=== PATIENT | male | born 1950 | race Caucasian/White ===

== ENCOUNTER → 2017-11-29 10:15 | Outpatient (CLI) | payer SELFPAY ==
--- NOTE | 2017-11-29 10:25 | RAD_ITS ---
STUDY: X-RAY CHEST REASON FOR EXAM: Male, 66 years old. Chest pain and cough TECHNIQUE: PA and lateral views of the chest. COMPARISON: 10/19/2016 FINDINGS: There are interstitial fibrotic changes of the lungs. There is no demonstrated pleural abnormality. Normal size heart. There are calcified mediastinal lymph nodes. Normal visualized pulmonary arteries. Normal visualized aortic arch and descending thoracic aorta. There are diffuse degenerative changes of the visualized thoracic spine. Normal visualized ribs, clavicles, and shoulders. There is no demonstrated abnormality of the visualized soft tissue structures of the upper abdomen. RAD/Chest PA and Lateral IMPRESSION: Degenerative changes, as described above. No demonstrated acute cardiopulmonary process. Electronically Signed: Joshua Goodman MD at 10:29 EDT , Service support ,
== END ==
PROVIDERS: Family Provider Family Medicine; PCP Family Medicine; Visit Provider Internal Medicine Pulmonary Disease
DX: J45.909 Unspecified asthma, uncomplicated (principal); R07.9 Chest pain, unspecified; J44.9 Chronic obstructive pulmonary disease, unspecified
CPT/HCPCS: 71046

== ENCOUNTER → 2018-11-27 08:03 | Outpatient (CLI) | payer SELFPAY ==
--- NOTE | 2018-11-27 08:13 | CT_ITS ---
STUDY: LOW DOSE CT LUNG CANCER SCREENING REASON FOR EXAM: Male, 67 years old. 10 pack-year history of tobacco use. RADIATION DOSAGE (If Supplied By Facility): CTDIvol = ( 2.01 ) mGy, DLP = ( 68.21 ) mGycm TECHNIQUE: No contrast was administered. Low dose technique was utilized (average mAS-38 and kVp 120). 1.25 mm axial source images with a slice interval of 1.25-mm were reconstructed in lung windows. 2.5 mm axial source images with a slice interval of 2.5-mm were reconstructed in lung windows. 5.0 mm axial source images with a slice interval of 5.0-mm were reconstructed in soft tissue windows. Nodule measured using lung windows on PACS and/or independent workstation with automated measurement of minimum and maximum diameter. Nodule measurement reported as average diameter rounded to the nearest whole number. Growth is defined as an increase ins size of greater than 1.5 mm. COMPARISON: Chest, November 29, 2017. NODULES: Nodule #: 1 Density: Ground glass Lung location: Right upper lobe: 1.1 cm from pleura Location in series: Series Number: 2 Image: 52 Size - D1 x D2 mm: 6 x 5 mm: 6 mm average diameter Margin: Irregular Shape: Rounded Calcification: No Fat: No Temporal comparison: None Nodule #: 2 Density: Solid Lung location: Right upper lobe: 1.7 cm from pleura Location in series: Series Number: 2 Image: 55 Size - D1 x D2 mm: 5 x 4 mm: 5 mm average diameter Margin: Smooth Shape: Triangular Calcification: No Fat: No Temporal comparison: None Nodule #: 3 Density: Solid Lung location: Left upper lobe: 1.9 cm from pleura Location in series: Series Number: 2 Image: 65 Size - D1 x D2 mm: 20 x 11 x 8 mm: 1.5 cm average diameter Margin: Smooth Shape: Ovoid Calcification: No Fat: No Temporal comparison: None Nodule #: 4 Density: Solid Lung location: Left upper lobe: 1.9 cm from pleura Location in series: Series Number: 2 Image: 1:15 Size - D1 x D2 mm: 6 x 6 mm: 6 mm average diameter Margin: Smooth Shape: Round Calcification: Yes Fat: No Temporal comparison: None Nodule #: 5 Density: Solid Lung location: Right lower lobe: 1.6 cm from pleura Location in series: Series Number: 2 Image: 139 Size - D1 x D2 mm: 5 x 3 mm: 4 mm average diameter Margin: Smooth Shape: Curvilinear Calcification: Yes Fat: No Temporal comparison: None Nodule #: 6 Density: Solid Lung location: Left lower lobe: 6 cm from pleura Location in series: Series Number: 2 Image: 178 Size - D1 x D2 mm: 3 x 3 mm: 8 mm average diameter Margin: Smooth Shape: Rounded Calcification: Yes Fat: No Temporal comparison: None Total lung nodules (excluding granulomas): 3 Emphysema: Mild emphysematous changes in lungs with scarring in both upper lobes. Endobronchial lesion: None Aorta: Minimal atherosclerotic changes of the thoracic aorta without aneurysm. Coronary arteries: Mild coronary artery calcifications. Heart: Normal in size Pulmonary artery: Normal Mediastinal nodes: There are calcified and noncalcified mediastinal lymph nodes. Other chest and abdominal findings: There are degenerative changes of the thoracic spine. CT/Low Dose CT Lung Screening IMPRESSION: 1. Old granulomatous disease. 2. Large tubular mass in the medial left upper lobe. 3. Emphysematous changes lungs. Lung-RADS category 4B - Chest CT with or without contrast, PET/CT and/or tissue sampling can be obtained depending on the probability of malignancy and comorbidities. IMPORTANT NOTES FOR USE: ACR Lung-RADS Version 1.0 Assessment Categories Release Date: December 21, 2013 Category: Coded 0-4 bases on nodule(s) with highest degree of suspicion. Negative screen is defined as categories 1 and 2; a positive screen is defined as categories 3 and 4. Category 3 and 4A nodules that are unchanged on interval CT should be coded as category 2, and individuals returned to screening in 12 months. Category 4X: Category 3 or 4 nodules with additional imaging findings that increase the suspicion of lung cancer, such as spiculation, GGN that doubles in size in 1 year, enlarged lymph notes, etc. Category Modifiers: S (significant finding unrelated to lung cancer) and C (prior history of treated lung cancer) may be added to the 0-4 Lung-RADS Electronically Signed: Wilber Bull DO at 19:47 EDT Tel [phone], Service support ,
== END ==
PROVIDERS: Family Provider Family Medicine; PCP Family Medicine; Referring Provider Internal Medicine Pulmonary Disease; Visit Provider Internal Medicine Pulmonary Disease
DX: Z87.891 Personal history of nicotine dependence (principal)
CPT/HCPCS: G0297

== ENCOUNTER → 2019-08-28 13:44 | Outpatient (CLI) | payer SELFPAY ==
--- NOTE | 2019-08-28 13:49 | CT_ITS ---
STUDY: CT CHEST WITHOUT CONTRAST REASON FOR EXAM: Male, 68 years old. LUNG NODULE F/U FROM CT DONE 11/27/18, PREV SMOKER X 10 YRS RADIATION DOSAGE (If Supplied By Facility): CTDIvol = ( 9.26 ) mGy, DLP = ( 321.50 ) mGycm TECHNIQUE: Transaxial imaging was performed without the administration of intravenous contrast material. Multiplanar coronal and sagittal images were reformatted. Individualized dose optimization techniques were used for this CT. COMPARISON: 11/27/2017 FINDINGS: Granuloma in left upper lobe is stable. Noncalcified tubular opacity of the left upper lobe (coronal image 116) is stable since the prior study. The structure measures 2.3 cm in craniocaudal length, correlating to the 8 mm (axial) diameter nodule on the prior study. Faint 5-6 mm nodule in the right upper lobe on image 29 is stable. There are a few linear fibrotic changes in the bilateral lung bases. There is no demonstrated pleural abnormality. Normal heart and pericardium. There are calcifications of the coronary arteries. There are calcified mediastinal nodes. Normal hilar regions. Normal unenhanced pulmonary arteries. Normal aorta arch and descending thoracic aorta. There are multi-level degenerative changes of the thoracic spine. There are granulomatous calcifications of the spleen. CT/Chest without Contrast IMPRESSION: 1. Since 11/27/2018, stable exam. No new or enlarging pulmonary nodule. 2. Elongated/tubular nodule the left upper lobe measuring 8 mm in axial dimension and 2.3 cm in length likely benign such as silhouette, sequela of old infection/fibrosis or potentially mucous filled bronchus/bronchocele. Electronically Signed: Nito Mixon MD ([place]) at 16:29 EST , Service support ,
== END ==
PROVIDERS: Family Provider Family Medicine; PCP Family Medicine; Referring Provider Internal Medicine Pulmonary Disease; Visit Provider Internal Medicine Pulmonary Disease
DX: R91.1 Solitary pulmonary nodule (principal)
CPT/HCPCS: 71250

== ENCOUNTER → 2020-02-03 16:58 | Outpatient (CLI) | payer OTHER, SELFPAY | PROVIDERS: PCP Family Medicine; Visit Provider Family Medicine | DX: Z20.818 Contact with and (suspected) exposure to other bacterial communicable diseases (principal) | CPT/HCPCS: 87635; G2023; U0003 ==

== ENCOUNTER → 2020-08-29 12:17 | Outpatient (CLI) | payer SELFPAY, OTHER ==
--- NOTE | 2020-08-29 12:26 | CT_ITS ---
HISTORY: EX SMOKER X15 YEARS. SMOKED 1 PACK A DAY. HX OF COPD AND HTN TECHNIQUE: Helically acquired images of the chest were obtained without IV contrast. Number of images including paperwork: 833. A radiation dose optimization technique was used for this scan. COMPARISON: 08/28/2019, 11/27/2018 FINDINGS: VASCULATURE: Vascular tortuosity. HEART/PERICARDIUM: Normal heart size. Coronary calcification. MEDIASTINUM: Unremarkable. ADENOPATHY: No pathologic appearing adenopathy. THYROID: Unremarkable visualized portions. LUNG PARENCHYMA: Severe emphysema again seen. Tubular low density opacity in the left upper lobe appear similar, likely bronchial mucoid impaction. Faint densities in the right upper lobe and along the right major fissure (series 2 images 67 through 70 appear similar., As a small irregular opacity in the left upper lobe posterolaterally on series 2 image 69. Calcified granulomata, largest in the left upper lobe on series 2 image 132, unchanged. Left lower lobe nodule measuring 2.5 mm in average diameter (series 2 image 142 is new. Clustered small nodules in the anterior right lower lobe are more evident compared with 08/28/2019 (probably due to differences in slice thickness) and new compared to 11/27/2018, largest measuring 2.6 mm in average diameter, as seen on series 2 image 172. PLEURAL SPACES: Unremarkable. UPPER ABDOMEN: Unremarkable. OSSEOUS AND SOFT TISSUE STRUCTURES: No acute skeletal findings. DEVICES: None. CT/Low Dose CT Lung Screening IMPRESSION: Lower lobe nodules measuring less than 4 mm in size, 1 of which in the left lower lobe is definitely new compared to the most recent prior study. Lung-RADS 2. Continued annual screening recommended in 12 months. Additional findings above. Individualized dose optimization techniques were used for this CT. at 0431 Reported and signed by: Veronica Schuster MD Electronically Signed: Veronica Schuster MD at 4:31 EST Tel , Service support ,
== END ==
PROVIDERS: PCP Family Medicine; Referring Provider Internal Medicine Pulmonary Disease; Visit Provider Internal Medicine Pulmonary Disease
DX: Z87.891 Personal history of nicotine dependence (principal)
CPT/HCPCS: 71271

== ENCOUNTER 2021-03-06 15:44 | Emergency (ER) | payer OTHER, SELFPAY ==
[2021-03-06 15:46] VITALS: BP 161/88; PULSE 62; RESP 12; TEMP 36.3; O2SAT 97; BMI 23.8
--- NOTE | 2021-03-06 15:50 | EKG12_ITS ---
Test Reason : CHEST PAIN Blood Pressure : / mmHG Vent. Rate : 055 BPM Atrial Rate : 055 BPM P-R Int : 170 ms QRS Dur : 082 ms QT Int : 418 ms P-R-T Axes : 076 066 049 degrees QTc Int : 399 ms Sinus bradycardia Otherwise normal ECG Confirmed by FREDA JOHNS, KELLI ([id number]), news editor SEBASTIEN ROMERO ([id number]) on 03/08/2021 9:26:44 AM Referred By: FINN Confirmed By:KELLI BARBA MD
[2021-03-06 16:09] LABS: Absolute Lymphocyte Count 1.39 X10^3/uL (0.83-4.51); Absolute Neutrophil Count 3.8 X10^3/uL (2.0-7.7); Basophil# 0.05 X10^3/uL; Basophil% 0.8 % (0-1); Eosinophil# 0.37 X10^3/uL; Eosinophils% 5.9 % (0-5); Hemoglobin 13.9 g/dL (13.0-16.5); Lymphocyte # 1.39 X10^3/ul (0.83-4.51); Lymphocyte % 22.1 % (19-41); Mean Corp Hgb Conc 33.1 g/dL (32-36); Mean Corpuscular Hgb 28.4 pg (27.0-32.0); Mean Corpuscular Volume 85.9 fL (80-94); Mean Platelet Vol. 9.5 fl (6.2-12.0); Monocyte# 0.62 X10^3/uL; Monocyte% 9.9 % (0-10); NRBC Flagged by Analyzer 0 % (0-5); Neutrophil # 3.84 X10^3/uL (2.7-7.7); Neutrophil % 61.1 % (47-70); Platelet Count 277 K/mm3 (150-450); RBC Distribution Width SD 44.1 fl (35.1-43.9); Red Blood Count 4.89 M/mm3 (4.6-6.2); White Blood Count 6.3 K/mm3 (4.4-11.0)
[2021-03-06 16:27] VITALS: O2SAT 96
[2021-03-06 16:30] LABS: Anion Gap 5 (5-15); BUN 33 mg/dL (7-18); BUN/Creat Ratio 33.4 RATIO (10-20); Chloride 105 mmol/L (98-107); Creatinine, Serum 0.99 mg/dL (0.70-1.30); EST Glomerular Filtration Rate 80 mL/min (>60); Est Glom Filt Rate - Afr Amer 96 mL/min (>60); Estimated Creatinine Clearance 62.65 ml/min; Glucose 102 mg/dL (74-106); Potassium 4.1 mmol/L (3.5-5.1); Sodium Level 139 mmol/L (136-145); Troponin-I HS 7.3 pg/mL (3.0-78.5)
--- NOTE | 2021-03-06 16:36 | RAD_ITS ---
[employer]Scriptor Unformatted Report Format: Options: n 2f 2i act cap dr saleh wm wcta sl lj Gender: Male : 1950 Exam: XR Chest 1 View Comparison: History: chest pain Contrast: at 1653 Reported and signed by: Calin Hook MD Electronically Signed: Calin Hook MD at 16:52 EDT Tel , Service support , RAD/Chest 1 View (Portable)
--- NOTE | 2021-03-06 17:17 | ED.VIS.CHEST ---
HPI History of Present Illness Chief Complaint: Chest Pain Informant: patient Narrative Narrative: Patient is a 70-year-old male with a past medical history of hypertension who presents to the emergency department for intermittent chest pain. He states that he gets left upper chest pain that radiates into his left arm. This does come and go. Whenever he exerts himself or is active with the left shoulder seems to make it worse. It is not every time he exerts himself or move the arm. Sometimes this wakes him up randomly out of his sleep. He denies any history of CAD, thromboembolism or stroke. He denies shortness of breath. He felt like his legs have been mildly swollen since this started. He initially thought this was related to his left shoulder previous surgeries. He denies any recent illness including any cough, cold, congestion. No fevers or chills. No back pain or abdominal pain. He is a former smoking history and COPD diagnosis. [facility] Medical History (Updated 03/06/21 @ 19:[address] Jhony Nixon DO) [place] (hard of hearing) Hypertension Home Medications albuterol sulfate 2.5 mg INHALATION Q4H PRN #25 vial 10/19/16 [Rx Last Taken Unknown] prednisone 40 mg PO DAILY@0800 #8 tablet 10/19/16 [Rx Last Taken Unknown] amlodipine 5 mg PO DAILY 03/06/21 [History Last Taken Unknown] fluticasone furoate-vilanterol [Breo Ellipta] 1 inh INHALATION DAILY 03/06/21 [History Last Taken Unknown] Allergy/AdvReac Type Severity Reaction Status Date / Time No Known Allergies Allergy Verified 03/06/21 15:45 Surgical History (Updated 03/06/21 @ 16:28 by Marilee Evans) History of replacement of both shoulder joints Social History Smoking Status: Never smoker ROS ROS ED Constitutional Constitutional ED: Denies chills or fever(s) Eyes Eyes: Denies change in vision ENT ENT ED: Denies epistaxis or rhinorrhea Cardiovascular Cardiovascular: Reports chest pain; Denies palpitations Respiratory/Chest Respiratory/Chest: Denies cough, dyspnea or dyspnea on exertion Gastrointestinal Gastrointestinal: Denies abdominal pain, diarrhea, nausea or vomiting Genitourinary Genitourinary ED: Denies dysuria, hematuria or urinary frequency Musculoskeletal Musculoskeletal: Denies back pain or neck pain Integumentary Denies rash Neurologic Neurologic: Denies dizziness, headache(s) or weakness EXAM Physical Exam Const Vital Signs: 03/06/21 15:46 03/06/21 16:27 03/06/21 19:13 Temperature 97.4 F L Temperature Source Temporal Pulse Rate 62 52 L Respiratory Rate 12 12 Respiratory Effort Normal Non-Labored Respiratory Pattern Normal Blood Pressure 161/88 H 163/92 H Blood Pressure Mean 112 Pulse Ox 97 96 97 Oxygen Delivery Method Room Air Room Air Positive well nourished and well developed General Appearance ED: well developed and NAD HEENT Reports normocephalic, head/scalp atraumatic and moist mucous membranes Eyes PERRL and EOMs intact bilaterally Neck supple Chest Wall inspection of chest normal Resp normal respiratory effort and clear to auscultation bilaterally Auscultation: Negative for rales, rhonchi or wheezes Cardio regular rate, regular rhythm and no murmurs GI normal to inspection, nondistended, normoactive bowel sounds and non-tender Palpation: soft; Negative for guarding or rebound tenderness present Back/Spine no CVA tenderness Extremity normal to inspection General Extremety ED: Negative for edema or tenderness General Extremity: Negative for edema Neuro CN's II-XII intact bilaterally and no sensory deficits noted Sensorium / Orientation: alert Motor Exam: strength 5/5 throughout Psych mental status grossly normal Skin no rashes or lesions noted Heart Score History: Moderately Suspicious ECG: Normal Age: >/= 65 years Risk Factors: 1 or 2 Risk Factors Troponin: </= Normal Limit Score: 4 MDM MDM MDM Narrative Medical decision making narrative: Patient presents to the ED for intermittent chest pain over the past 2 weeks. On arrival to the ED he states the symptoms are very mild. He is hypertensive but otherwise normal vital signs. He is in no acute distress. He is a benign physical exam. EKG, basic lab work and chest x-ray obtained. Patient's lab work-up did not reveal him to be anemic. His troponin is well within normal limits. No significant electrolyte disturbance. Chest x-ray did not reveal acute cardiopulmonary abnormality. I discussed hospitalization for stress test for full cardiac evaluation but patient has been completely asymptomatic throughout ED stay. At the very least I did recommend that he stay for a repeat troponin test although symptoms have been going on for 2 weeks and I would expect an elevation in his troponin at this point. Patient did not want to stay and is going to follow-up with his PCP. I did give him a cardiology referral as his PCP did recently retire. He is to call in the morning to schedule appointment. If he develops any repeat symptoms or persistent symptoms he needs to come back to the emergency department. This time it does not appear to be ACS causing his symptoms. I have very low concern for thromboembolism or aortic catastrophe causing his symptoms. This could be related to his shoulder but I could not completely rule out cardiac etiology at this time. Patient understands this. He is discharged home in stable condition. All questions were answered. Lab Data Labs: Laboratory Results - last 24 hr 03/06/21 03/06/21 15:55 15:55 WBC 6.3 RBC 4.89 Hgb 13.9 Hct 42.0 MCV 85.9 MCH 28.4 MCHC 33.1 RDW Std Deviation 44.1 H RDW Coeff of Sherri 14.0 Plt Count 277 MPV 9.5 Immature Gran % (Auto) 0.200 Neut % (Auto) 61.1 Lymph % (Auto) 22.1 Harrison % (Auto) 9.9 Eos % (Auto) 5.9 H Baso % (Auto) 0.8 Absolute Neuts (auto) 3.8 Absolute Lymphs (auto) 1.39 Nucleated RBC % 0 Sodium 139 Potassium 4.1 Chloride 105 Carbon Dioxide 29.0 Anion Gap 5 BUN 33 H Creatinine 0.99 Estim Creat Clear Calc 62.65 Est GFR (MDRD) Af Amer 96 Est GFR (MDRD) Non-Af 80 BUN/Creatinine Ratio 33.4 H Glucose 102 Calcium 9.0 Troponin I High Sens 7.3 Radiography Chest X-Ray - ED: 1 View (Single view portable x-ray interpreted by myself. Clear lung martinez bilaterally. No effusions. Normal cardiac silhouette. Normal mediastinum. Agree with radiologist interpretation.) Diagnostic Testing: Radiology Impression Chest X-Ray 03/06/21 16:36 ADDENDUM: 03/06/212040 IMPRESSION: No acute process Electronically Signed: Ruddy Kiser MD at 20:34 EDT , Service support , ADDENDUM: 03/06/212053 ADDENDUM: 03/06/212053 IMPRESSION: No acute process Electronically Signed: Ruddy Kiser MD at 20:34 EDT , Service support , EKG Initial EKG: Attestation: I personally reviewed and interpreted this EKG as follows: (Rate of 55 bpm in sinus bradycardia. Normal intervals. Normal axis. No significant ST elevations or depressions. No T wave abnormalities.) Discharge Plan Triage Chief Complaint: Chest Pain ED Provider: Jhony Nixon Dx/Rx/DC Orders Clinical Impression: Chest pain Instructions: ED Chest Pain, Noncardiac Prescriptions: No Action prednisone 20 MG tablet 40 mg PO DAILY@0800 Qty: 8 RF: 0 albuterol sulfate 2.5 MG/3 ML solution for nebulization 2.5 mg inhalation Q4H PRN Qty: 25 RF: 0 amlodipine 5 mg tablet 5 mg PO DAILY RF: 0 Breo Ellipta 200-25 mcg/dose blister with device 1 inh INHALATION DAILY RF: 0 Primary Care Provider: Sam Sumner III Referrals: Eh Castellon MD [STAFF PHYSICIAN] - As soon as possible Sam Sumner III, MD [Primary Care Provider] - As soon as possible Activity Restrictions/Additional Instructions: Please contact the [employer] as it is possible to schedule outpatient stress test. If you develop any repeat symptoms please return to the emergency department for reevaluation. Disposition Disposition: Home, Self Care Discharge Date/Time: 03/06/21 19:14
[2021-03-06 19:13] VITALS: BP 163/92; PULSE 52; RESP 12; O2SAT 97
== END 2021-03-06 19:14 | disposition home or self-care (01) ==
PROVIDERS: Emergency Provider Emergency Medicine; PCP Family Medicine
DX: R07.89 Other chest pain (principal); I10 Essential (primary) hypertension; J44.9 Chronic obstructive pulmonary disease, unspecified; Z79.899 Other long term (current) drug therapy; Z87.891 Personal history of nicotine dependence
CPT/HCPCS: 71045; 80048; 84484; 85025; 93005; 99283

== ENCOUNTER 2021-05-01 06:09 | Emergency (ER) | payer OTHER, SELFPAY ==
[2021-05-01 06:10] VITALS: BP 163/90; PULSE 107; RESP 20; TEMP 36.4; O2SAT 97; BMI 22.5
[2021-05-01 06:18] VITALS: BP 163/90; PULSE 107; RESP 20; TEMP 36.4; O2SAT 97
[2021-05-01] MEDS: Ondansetron 4 MG/2 ML Vial IV (06:48)
[2021-05-01] MEDS: Morphine 4 MG/ML Syringe IV (06:48)
[2021-05-01 06:57] LABS: Absolute Lymphocyte Count 0.53 X10^3/uL (0.83-4.51); Absolute Neutrophil Count 13.6 X10^3/uL (2.0-7.7); Basophil# 0.05 X10^3/uL; Basophil% 0.3 % (0-1); Eosinophil# 0.03 X10^3/uL; Eosinophils% 0.2 % (0-5); Hematocrit 44.2 % (40-54); Hemoglobin 14.5 g/dL (13.0-16.5); Lymphocyte # 0.53 X10^3/ul (0.83-4.51); Lymphocyte % 3.5 % (19-41); Mean Corp Hgb Conc 32.8 g/dL (32-36); Mean Corpuscular Hgb 28.5 pg (27.0-32.0); Mean Platelet Vol. 9.9 fl (6.2-12.0); Monocyte# 1.08 X10^3/uL; NRBC Flagged by Analyzer 0 % (0-5); Neutrophil # 13.56 X10^3/uL (2.7-7.7); Neutrophil % 88.5 % (47-70); POSITIVE DIFFERENTIAL YES; Platelet Count 238 K/mm3 (150-450); RBC Distribution Width CV 13.5 % (11.6-14.6); RBC Distribution Width SD 43.2 fl (35.1-43.9); Red Blood Count 5.08 M/mm3 (4.6-6.2); White Blood Count 15.3 K/mm3 (4.4-11.0)
[2021-05-01 06:58] LABS: Differential Indicated SCAN CRITERIA MET
--- NOTE | 2021-05-01 07:00 | RAD_ITS ---
EXAM: XR RIGHT ELBOW COMPLETE, 3 OR MORE VIEWS : 1950 CLINICAL INDICATION: pain TECHNIQUE: Frontal, lateral and oblique views of the right elbow. This report was created using [employer] report generation technology. COMPARISON: None. FINDINGS: BONES/JOINTS: Unremarkable. There is no displacement of the anterior or posterior fat pads. No acute fracture. No subluxation. Normal alignment. Preservation of the joint space. No destructive or sclerotic lesions. SOFT TISSUES: Soft tissue swelling dorsal to the distal humerus, olecranon and proximal ulna. No radiopaque foreign body. RAD/Elbow min 3 Views IMPRESSION: Soft tissue swelling dorsal to the distal humerus, olecranon and proximal ulna. Findings may indicate cellulitis/bursitis. at 0734 Reported and signed by: Calvin Deal MD Electronically Signed: Calvin Deal MD at 7:34 EDT Tel , Service support ,
[2021-05-01 07:10] LABS: Anion Gap 5 (5-15); BUN 27 mg/dL (7-18); BUN/Creat Ratio 29.2 RATIO (10-20); Calcium,Total 9.1 mg/dL (8.5-10.1); Chloride 104 mmol/L (98-107); Creatinine, Serum 0.92 mg/dL (0.70-1.30); EST Glomerular Filtration Rate 86 mL/min (>60); Est Glom Filt Rate - Afr Amer 104 mL/min (>60); Estimated Creatinine Clearance 69.02 ml/min; Glucose 176 mg/dL (74-106); Potassium 4.1 mmol/L (3.5-5.1); Sodium Level 136 mmol/L (136-145)
[2021-05-01 07:19] LABS: Differential Comment SCANNED
[2021-05-01 07:20] LABS: Erythrocyte Sedimentation Rate 2 mm/hr (0-20)
[2021-05-01] MEDS: Doxycycline 100 MG CAPSULE PO (07:56)
[2021-05-01] MEDS: HYDROcodone Bitartrate/Apap 5/325 Tablet PO (07:56)
--- NOTE | 2021-05-01 08:31 | EX.ED.UPPERE ---
HPI History of Present Illness Chief Complaint: Upper Extremity Injury Informant: patient Onset/Context/Timing Onset: Yesterday Context: Gradual Onset Current Severity: Moderate Maximum Severity: Severe Narrative Narrative: Patient presents secondary to right elbow pain, redness, and swelling. Patient states he noted symptoms last evening and it progressed throughout the night. He had difficulty sleeping secondary to pain. He denies any known injury. He is right-hand dominant. He denies fever, chills, or other constitutional symptoms. PFS PFS Medical History [place] (hard of hearing) Hypertension Home Medications albuterol sulfate 2.5 mg INHALATION Q4H PRN #25 vial 10/19/16 [Rx Last Taken Unknown] prednisone 40 mg PO DAILY@0800 #8 tablet 10/19/16 [Rx Last Taken Unknown] amlodipine 5 mg PO DAILY 03/06/21 [History Last Taken Unknown] fluticasone furoate-vilanterol [Breo Ellipta] 1 inh INHALATION DAILY 03/06/21 [History Last Taken Unknown] cephalexin 500 mg PO Q6 #40 cap 05/01/21 [Rx Last Taken Unknown] hydrocodone-acetaminophen 1 tab PO Q6H PRN 3 Days #10 tab 05/01/21 [Rx Last Taken Unknown] sulfamethoxazole-trimethoprim [Bactrim DS] 1 tab PO BID #20 tab 05/01/21 [Rx Last Taken Unknown] Allergy/AdvReac Type Severity Reaction Status Date / Time No Known Allergies Allergy Verified 03/06/21 15:45 Surgical History History of replacement of both shoulder joints Social History Smoking Status: Never smoker ROS ROS ED Constitutional Constitutional ED: Denies chills or fever(s) Eyes Eyes: Denies change in vision ENT ENT ED: Denies sore throat Cardiovascular Cardiovascular: Denies chest pain Respiratory/Chest Respiratory/Chest: Denies cough or dyspnea Gastrointestinal Gastrointestinal: Denies abdominal pain, diarrhea, nausea or vomiting Genitourinary Genitourinary ED: Denies dysuria Musculoskeletal Musculoskeletal: Reports other Details: Right elbow pain ; Denies back pain Integumentary Denies rash Neurologic Neurologic: Denies headache(s), paresthesias or weakness Allergic/Immunologic Allergic/Immunologic ED: Denies urticaria EXAM Physical Exam Const Vital Signs: 05/01/21 06:10 05/01/21 06:18 Temperature 97.6 F L 97.6 F L Temperature Source Temporal Temporal Pulse Rate 107 H 107 H Respiratory Rate 20 H 20 H Blood Pressure 163/90 H 163/90 H Blood Pressure Mean 114 114 Pulse Ox 97 97 Oxygen Delivery Method Room Air Room Air Positive well nourished and well developed General Appearance ED: well developed HEENT Reports normocephalic and head/scalp atraumatic Eyes PERRL and EOMs intact bilaterally Neck supple Chest Wall inspection of chest normal and palpation of chest normal Resp normal respiratory effort and clear to auscultation bilaterally Cardio regular rate and regular rhythm GI normal to inspection, nondistended, normoactive bowel sounds Palpation: soft Extremity Extremity Narrative: Mild erythema, warmth, edema to the extensor surface of the right elbow. He does allow flexion extension as well as pronation supination of the elbow with mild pain. Findings are consistent with olecranon bursitis. Neuro oriented x3 and no sensory deficits noted Sensorium / Orientation: alert Motor Exam: strength 5/5 throughout Psych mental status grossly normal MDM MDM MDM Narrative Medical decision making narrative: Patient was given morphine and Zofran for pain. Labs and right elbow x-ray are obtained. Lab Data Attestation: I reviewed the patient's lab results. Labs: Laboratory Results - last 24 hr 05/01/21 05/01/21 06:50 06:50 WBC 15.3 H RBC 5.08 Hgb 14.5 Hct 44.2 MCV 87.0 MCH 28.5 MCHC 32.8 RDW Std Deviation 43.2 RDW Coeff of Sherri 13.5 Plt Count 238 MPV 9.9 Immature Gran % (Auto) 0.500 Neut % (Auto) 88.5 H Lymph % (Auto) 3.5 L [place] % (Auto) 7.0 Eos % (Auto) 0.2 Baso % (Auto) 0.3 Absolute Neuts (auto) 13.6 H Absolute Lymphs (auto) 0.53 L Nucleated RBC % 0 Differential Comment SCANNED ESR 2 Sodium 136 Potassium 4.1 Chloride 104 Carbon Dioxide 27.0 Anion Gap 5 BUN 27 H Creatinine 0.92 Estim Creat Clear Calc 69.02 Est GFR (MDRD) Af Amer 104 Est GFR (MDRD) Non-Af 86 BUN/Creatinine Ratio 29.2 H Glucose 176 H Calcium 9.1 C-React Prot Ext Range 17.60 H Radiography Diagnostic Testing: Radiology Impression Elbow X-Ray 05/01/21 07:00 IMPRESSION: Soft tissue swelling dorsal to the distal humerus, olecranon and proximal ulna. Findings may indicate cellulitis/bursitis. at 0734 Reported and signed by: Calvin Deal MD Electronically Signed: Calvin Deal MD at 7:34 EDT Tel , Service support , Treatment and Re-Evaluation Comments:: Lab work is reviewed. Patient's right elbow was prepped. 4 cc of hazy yellow fluid are withdrawn through a 21-gauge needle. Gauze pads and Fredy wrap were applied to place light pressure over the extensor surface of the elbow. Fluid will be sent for Gram stain and culture, but patient will be treated with antibiotics regardless. Follow-up instructions provided and prescriptions sent to the pharmacy for him. Discharge Plan Triage Chief Complaint: Upper Extremity Injury ED Provider: Rosaura Riggs Dx/Rx/DC Orders Clinical Impression: Olecranon bursitis of right elbow Instructions: ED Bursitis Elbow Olecranon Prescriptions: New hydrocodone-acetaminophen 5-325 mg tablet 1 tab PO Q6H PRN (Reason: pain) 3 Days Qty: 10 RF: 0 sulfamethoxazole-trimethoprim [Bactrim DS] 800-160 mg tablet 1 tab PO BID Qty: 20 RF: 0 cephalexin 500 mg capsule 500 mg PO Q6 Qty: 40 RF: 0 No Action prednisone 20 MG tablet 40 mg PO DAILY@0800 Qty: 8 RF: 0 albuterol sulfate 2.5 MG/3 ML solution for nebulization 2.5 mg inhalation Q4H PRN Qty: 25 RF: 0 amlodipine 5 mg tablet 5 mg PO DAILY RF: 0 Breo Ellipta 200-25 mcg/dose blister with device 1 inh INHALATION DAILY RF: 0 Primary Care Provider: Jr Dodge Referrals: Jr Dodge DO [Primary Care Provider] - 3-5 Days Disposition Disposition: Home, Self Care
[2021-05-01 08:42] VITALS: BP 130/76; PULSE 78; RESP 16; O2SAT 98
[2021-05-01 08:45] LABS: RBC /Synovial Fluid 0.013 10^6/uL (0)
[2021-05-01 10:06] LABS: AUTO B FLUID DILUENT BKGD CT WBC <0.1 RBC <0.01 (W<.1,R<.01); Monocyte /Synovial Fluid 6 %; Neutrophil 94 % (0-25)
[2021-05-01 10:07] LABS: Appearance /Synovial Fluid Cloudy (CLEAR); Color / Synovial Fluid Yellow (Pale Yellow); Source / Synovial Fluid RT ELBOW
[2021-05-01 10:08] LABS: Body Fluid QC Type(s) BF1Q; Synovial Fld Mononuclear WBC # 4.086 10^3/ul
[2021-05-03 09:28] LABS: Pathologist Comment Reviewed
== END 2021-05-01 08:53 | disposition home or self-care (01) ==
PROVIDERS: Emergency Provider Emergency Medicine; PCP Family Medicine
DX: M70.21 Olecranon bursitis, right elbow (principal); Y93.9 Activity, unspecified; I10 Essential (primary) hypertension; Z79.899 Other long term (current) drug therapy
CPT/HCPCS: 73080; 80048; 85025; 85652; 86140; 87070; 87075; 87077; 87186; 87205; 89050; 89051; 96374; 96375; 99284; A4216; J2405

== ENCOUNTER → 2021-08-11 14:26 | Outpatient (CLI) | payer SELFPAY, OTHER ==
--- NOTE | 2021-08-11 14:30 | CT_ITS ---
STUDY: LOW DOSE CT LUNG CANCER SCREENING REASON FOR EXAM: Male, 70 years old. COPD. COPD. Patient smoked 1 pack per day for 16 years. RADIATION DOSAGE (If Supplied By Facility): CTDIvol = ( 2.32 ) mGy, DLP = ( 87.03 ) mGycm TECHNIQUE: No contrast was administered. Low dose technique was utilized (average mAS-38 and kVp 120). 1.25 mm axial source images with a slice interval of 1.25-mm were reconstructed in lung windows. 2.5 mm axial source images with a slice interval of 2.5-mm were reconstructed in lung windows. 5.0 mm axial source images with a slice interval of 5.0-mm were reconstructed in soft tissue windows. Nodule measured using lung windows on PACS and/or independent workstation with automated measurement of minimum and maximum diameter. Nodule measurement reported as average diameter rounded to the nearest whole number. Growth is defined as an increase ins size of greater than 1.5 mm. COMPARISON: Comparison is made with prior examination dated 08/29/2020. NODULES: Stable appearance of the tubular linear nodular density in the left upper lobe is unchanged. This may represent a mucoid impaction within a bronchus. Bronchoscopy is recommended for further evaluation. Stable appearance of the faint densities in the right upper lobe along the right major fissure as well as in the left upper lobe posteriorly. Stable calcified granuloma in the anterior medial aspect of the left upper lobe as well as in the medial aspect of the right upper lobe. Tiny calcified granulomas are also seen at the lung bases. Emphysema: Stable scarring in the left lung apex. Hyperinflation. Emphysematous changes. Endobronchial lesion: None Aorta: Atherosclerotic plaque formation. Coronary arteries: Coronary artery calcification. Heart: Unremarkable. Pulmonary artery: Unremarkable. Mediastinal nodes: Calcified precarinal and bilateral hilar lymph nodes. Other chest and abdominal findings: CT/Low Dose CT Lung Screening IMPRESSION: Lung-RADS category 2 - Continue annual screening with LDCT in 12 months. IMPORTANT NOTES FOR USE: ACR Lung-RADS Version 1.1 Assessment Categories Release Date: 2018 Category: Coded 0-4 bases on nodule(s) with highest degree of suspicion. Negative screen is defined as categories 1 and 2; a positive screen is defined as categories 3 and 4. Category 3 and 4A nodules that are unchanged on interval CT should be coded as category 2, and individuals returned to screening in 12 months. Category 4X: Category 3 or 4 nodules with additional imaging findings that increase the suspicion of lung cancer, such as spiculation, GGN that doubles in size in 1 year, enlarged lymph notes, etc. Category Modifiers: S (significant finding unrelated to lung cancer) Electronically Signed: Misbah Briscoe MD at 15:07 EST , Service support ,
== END ==
PROVIDERS: PCP Family Medicine; Visit Provider Internal Medicine Pulmonary Disease
DX: J44.9 Chronic obstructive pulmonary disease, unspecified (principal); Z87.891 Personal history of nicotine dependence
CPT/HCPCS: 71271

== ENCOUNTER 2022-07-13 08:30 | Outpatient (CLI) | payer SELFPAY, OTHER ==
--- NOTE | 2022-07-13 08:37 | RAD_ITS ---
INDICATION: PREOP EXAMINATION/TECHNIQUE: X-RAY - XR Chest 2 Views COMPARISON: 03/06/21. FINDINGS: LINES/DEVICES: None. LUNGS: Lungs are mildly hyperexpanded, best seen on lateral view. Coarse interstitium. No consolidation, edema or effusion. Mild bilateral apical scarring. No pneumothorax. MEDIASTINUM AND CARDIOVASCULAR STRUCTURES: Cardiac silhouette not enlarged. Small bilateral calcified hilar lymph nodes BONES AND SOFT TISSUES: Unremarkable. Bilateral humeral tendon anchors noted. RAD/Chest PA and Lateral IMPRESSION: No radiographic evidence of acute cardiopulmonary disease. Findings compatible with chronic obstructive pulmonary disease. Electronically Signed: Joshua Dunn MD at 6:24 EST Reading Location ID and State: formerly [facility] / [place] Tel , Service support ,
== END 2022-07-13 23:59 | disposition home or self-care (01) ==
PROVIDERS: PCP Family Medicine; Referring Provider Internal Medicine Pulmonary Disease; Visit Provider Internal Medicine Pulmonary Disease
DX: R07.9 Chest pain, unspecified (principal)
CPT/HCPCS: 71046

== ENCOUNTER 2022-08-23 18:25 | Emergency (ER) | payer OTHER, SELFPAY ==
[2022-08-23 18:25] VITALS: BP 177/84; PULSE 106; RESP 24; TEMP 37.3; O2SAT 94; BMI 22.8
[2022-08-23 19:06] LABS: Absolute Lymphocyte Count 0.57 X10^3/uL (0.83-4.51); Absolute Neutrophil Count 14.2 X10^3/uL (2.0-7.7); Basophil# 0.06 X10^3/uL; Basophil% 0.4 % (0-1); Hematocrit 46.6 % (40-54); Hemoglobin 15.5 g/dL (13.0-16.5); Lymphocyte # 0.57 X10^3/ul (0.83-4.51); Lymphocyte % 3.5 % (19-41); Mean Corp Hgb Conc 33.3 g/dL (32-36); Mean Corpuscular Hgb 28.2 pg (27.0-32.0); Mean Corpuscular Volume 84.7 fL (80-94); Monocyte# 1.64 X10^3/uL; Monocyte% 9.9 % (0-10); NRBC Flagged by Analyzer 0 % (0-5); Neutrophil # 14.15 X10^3/uL (2.7-7.7); Neutrophil % 85.6 % (47-70); POSITIVE DIFFERENTIAL YES; Platelet Count 256 K/mm3 (150-450); RBC Distribution Width CV 13.7 % (11.6-14.6); RBC Distribution Width SD 42.4 fl (35.1-43.9); White Blood Count 16.5 K/mm3 (4.4-11.0)
[2022-08-23 19:23] LABS: Anion Gap 8 (5-15); BUN 23 mg/dL (7-18); Calcium,Total 9.4 mg/dL (8.5-10.1); Chloride 99 mmol/L (98-107); EST Glomerular Filtration Rate 78 mL/min (>60); Est Glom Filt Rate - Afr Amer 95 mL/min (>60); Estimated Creatinine Clearance 61.14 ml/min; Glucose 147 mg/dL (74-106); Potassium 3.8 mmol/L (3.5-5.1); Sodium Level 134 mmol/L (136-145)
--- NOTE | 2022-08-23 19:34 | RAD_ITS ---
STUDY: X-RAY CHEST REASON FOR EXAM: Male, 71 years old. Shortness of breath and cough since this morning. Patient thinks he has fluid on lungs. Burning of the chest worse with coughing. TECHNIQUE: Single AP portable view of the chest. COMPARISON: July 13, 2022. FINDINGS: Lungs are hyperexpanded without acute infiltrate or mass. There is no demonstrated pleural abnormality. Normal size heart. Is a calcified lymph node in the AP window. Mediastinum and [place]red[place] are otherwise unremarkable. Normal visualized pulmonary arteries. Normal visualized aortic arch and descending thoracic aorta. No osseous changes. There is degenerative osteoarthritis of the bilateral shoulders. There are surgical changes bilaterally consistent with prior rotator cuff injury. There is no demonstrated abnormality of the visualized soft tissue structures of the upper abdomen. RAD/Chest 1 View (Portable) IMPRESSION: Question COPD. There is no acute cardiopulmonary disease. Electronically Signed: Wilber Bull DO at 19:51 EST ,
[2022-08-23 19:49] LABS: Differential Indicated SCAN CRITERIA MET
[2022-08-23 20:26] VITALS: BP 148/83; PULSE 103; RESP 22; TEMP 36.5; O2SAT 92
[2022-08-23 20:27] VITALS: O2SAT 99
--- NOTE | 2022-08-23 20:47 | EKG12_ITS ---
Test Reason : DYSRHYTHMIA Blood Pressure : / mmHG Vent. Rate : 098 BPM Atrial Rate : 098 BPM P-R Int : 134 ms QRS Dur : 072 ms QT Int : 330 ms P-R-T Axes : 088 075 037 degrees QTc Int : 421 ms Normal sinus rhythm Nonspecific ST and T wave abnormality Abnormal ECG Confirmed by FREDA JOHNS, KELLI ([id number]), newspaper photo editor SEBASTIEN ROMERO ([id number]) on 08/28/2022 1:03:44 PM Referred By: PL Confirmed By:KELLI BARBA MD
[2022-08-23 21:00] VITALS: PULSE 118; RESP 26; O2SAT 94
[2022-08-23] MEDS: Albuterol 2.5 MG/3 ML VIAL.NEB. INHALATION (21:00)
[2022-08-23] MEDS: Ipratropium/Albuterol Sulfate 3 ML AMPUL.NEB INHALATION (21:00)
[2022-08-23] MEDS: Ketorolac 15 MG/ML Vial IV (21:04)
[2022-08-23] MEDS: MethylPREDNISolone 125 MG/2 ML Vial IV (21:04)
[2022-08-23 21:22] LABS: Troponin-I HS 13 pg/mL (3.0-78.0)
--- NOTE | 2022-08-23 21:33 | EDS_ITS ---
HPI History of Present Illness Chief Complaint: Shortness of Breath Informant: patient Narrative Narrative: Patient complains of increased dyspnea. He also has some myalgias. This mostly started today. He states he does have COPD. He has been wheezing more. Sounds like the wheezing may have been going on for several days. He was around some grandchildren who have fevers and chills and cough but no known diagnosis. He states he has aches all over but not isolated chest pain. He is eating and drinking. He has been hearing more wheezing. No sputum production. Nothing consistently makes this better or worse. PFSH PFSH Medical History [place] (hard of hearing) Hypertension Home Medications albuterol sulfate 2.5 mg/3 mL (0.083 %) solution for nebulization 2.5 mg (3 mL) inhalation Q4H PRN #25 vials 10/19/16 [Rx Last Taken Unknown] prednisone 20 mg tablet 40 mg PO DAILY@0800 ##8 10/19/16 [Rx Last Taken Unknown] amlodipine 5 mg tablet 5 mg PO DAILY 03/06/21 [History Last Taken Unknown] fluticasone furoate 200 mcg-vilanterol 25 mcg/dose inhalation powder (Breo Mona lpta) 1 inh inhalation DAILY 03/06/21 [History Last Taken Unknown] cephalexin 500 mg capsule 500 mg PO Q6 #40 caps 05/01/21 [Rx Last Taken Unknown] hydrocodone-acetaminophen 5-325mg 5mg-325mg 1 tab PO Q6H PRN pain 3 days #10 tabs 05/01/21 [Rx Last Taken Unknown] sulfamethoxazole 800 mg-trimethoprim 160 mg tablet (Bactrim DS) 1 tab PO BID #20 tabs 05/01/21 [Rx Last Taken Unknown] hydrocodone-acetaminophen 5-325mg 5mg-325mg 1 tab PO Q6H PRN pain 3 days #6 tabs 08/23/22 [Rx Last Taken Unknown] prednisone 20 mg tablet 60 mg PO DAILY #15 tabs 08/23/22 [Rx Last Taken Unknown] Allergy/AdvReac Type Severity Reaction Status Date / Time No Known Allergies Allergy Verified 08/23/22 18:27 Surgical History History of replacement of both shoulder joints Social History Smoking Status: Never smoker ROS ROS ED Constitutional Constitutional ED: Denies chills, fever(s) or sweats Eyes Eyes: Denies blurry vision, change in vision or diplopia ENT ENT ED: Reports rhinorrhea; Denies sore throat Cardiovascular Cardiovascular: Denies chest pain, palpitations or racing heartbeat Respiratory/Chest Respiratory/Chest: Reports cough and dyspnea; Denies sputum Gastrointestinal Gastrointestinal: Denies abdominal pain, nausea or vomiting Genitourinary Genitourinary ED: Denies hematuria Musculoskeletal Musculoskeletal: Reports myalgias Integumentary Denies rash Neurologic Neurologic: Denies headache(s) Endocrine Endocrinology: Denies polydipsia or polyuria Allergic/Immunologic Allergic/Immunologic ED: Denies urticaria EXAM Physical Exam Const Vital Signs: 08/23/22 18:25 08/23/22 20:26 08/23/22 20:27 Temperature 99.2 F H 97.7 F L Temperature Source Temporal Oral Pulse Rate 106 H 103 H Respiratory Rate 24 H 22 H Respiratory Effort Respiratory Pattern Blood Pressure 177/84 H 148/83 H Blood Pressure Mean 115 104 Pulse Ox 94 92 99 Oxygen Delivery Method Room Air Room Air Nasal Cannula Oxygen Flow Rate (L/min) 4 08/23/22 20:28 Temperature Temperature Source Pulse Rate Respiratory Rate Respiratory Effort Short of Breath Labored Respiratory Pattern Tachypnea Blood Pressure Blood Pressure Mean Pulse Ox Oxygen Delivery Method Oxygen Flow Rate (L/min) Positive well nourished and well developed General Appearance ED: well developed and NAD; Negative for pallor HEENT Reports moist mucous membranes Eyes General Eye ED: Negative for scleral icterus Neck no JVD Resp Resp Narrative: Respiratory effort is just slightly increased. He has decreased breath sounds throughout and bilateral expiratory wheezing without rhonchi or rales. No pain with a deep breath Auscultation: wheezes and diminished lung sounds Cardio regular rate, regular rhythm and no murmurs GI non-tender and non-distended Palpation: soft; Negative for tender Back/Spine no CVA tenderness Extremity General Extremety ED: Negative for edema or tenderness General Extremity: Negative for edema Neuro Sensorium / Orientation: alert Psych mental status grossly normal Skin no wounds General Skin Exam: Negative for jaundice or pallor MDM MDM MDM Narrative Medical decision making narrative: Chest x-ray shows COPD only. His white count is mildly elevated. Hemoglobin normal. Platelets normal. Electrolytes were relatively normal. Glucose was only up a little bit at 147 and sodium was 134. Troponin was negative. Patient was given breathing treatments as well as steroids. This helped him a lot. I went back to check him. He is breathing easily and he is actually sleeping. His saturations were 94% on room air while asleep. His lungs sounded much better. He would like to go home. Although his COVID and influenza's are negative, he has family members that have a viral type illness. He has significant myalgias. He may end up having influenza with negative test. Patient would like something for his myalgias. We will also get him on prednisone for his COPD exacerbation. We discussed returning if he gets more dyspneic, pain or other concerns Lab Data Attestation: I reviewed the patient's lab results. Labs: Laboratory Results - last 24 hr 08/23/22 08/23/22 08/23/22 18:40 18:40 18:40 WBC 16.5 H RBC 5.50 Hgb 15.5 Hct 46.6 MCV 84.7 MCH 28.2 MCHC 33.3 RDW Std Deviation 42.4 RDW Coeff of Sherri 13.7 Plt Count 256 MPV 10.0 Immature Gran % (Auto) 0.600 Neut % (Auto) 85.6 H Lymph % (Auto) 3.5 L [place] % (Auto) 9.9 Eos % (Auto) 0.0 Baso % (Auto) 0.4 Absolute Neuts (auto) 14.2 H Absolute Lymphs (auto) 0.57 L Nucleated RBC % 0 Sodium 134 L Potassium 3.8 Chloride 99 Carbon Dioxide 27.0 Anion Gap 8 BUN 23 H Creatinine 1.00 Estim Creat Clear Calc 61.14 Est GFR (MDRD) Af Amer 95 Est GFR (MDRD) Non-Af 78 BUN/Creatinine Ratio 23.0 H Glucose 147 H Calcium 9.4 Troponin I High Sens 13 Radiography Diagnostic Testing: Clinical Impression(s) from Imaging Studies Chest X-Ray 08/23/22 19:34 IMPRESSION: Question COPD. There is no acute cardiopulmonary disease. Electronically Signed: Wilber Bull DO at 19:51 EST Reading Location ID and State: [facility] / [place] Tel [phone], Service support , Chest x-ray shows some signs of COPD but no acute process. No infiltrative process. Discharge Plan Triage Chief Complaint: Shortness of Breath ED Provider: Jaleel Saul Dx/Rx/DC Orders Clinical Impression: COPD with acute exacerbation, Myalgia Instructions: ED COPD Flare Prescriptions: New hydrocodone-acetaminophen 5-325 mg tablet 1 tab PO Q6H PRN (Reason: pain) 3 Days Qty: 6 0RF prednisone 20 mg tablet 60 mg PO DAILY Qty: 15 0RF No Action prednisone 20 MG tablet 40 mg PO DAILY@0800 Qty: 8 0RF albuterol sulfate 2.5 MG/3 ML solution for nebulization 2.5 mg inhalation Q4H PRN Qty: 25 0RF Rx Instructions: Use q4 hours and PRN for wheezing amlodipine 5 mg tablet 5 mg PO DAILY Label Comments: Take 1 tablet by mouth once daily. Breo Ellipta 200-25 mcg/dose blister with device 1 inh INHALATION DAILY Label Comments: INHALE 1 PUFF DAILY WITH GOOD ORAL [facility]ARE hydrocodone-acetaminophen 5-325 mg tablet 1 tab PO Q6H PRN (Reason: pain) 3 Days Qty: 10 0RF sulfamethoxazole-trimethoprim [Bactrim DS] 800-160 mg tablet 1 tab PO BID Qty: 20 0RF cephalexin 500 mg capsule 500 mg PO Q6 Qty: 40 0RF Primary Care Provider: Jr Dodge Referrals: Jr Dodge DO [Primary Care Provider] - 3-5 Days if not improving Disposition Disposition: Home, Self Care
--- NOTE | 2022-08-24 00:53 | CPS ---
[2100] x1 Albuterol given to pt. in ER as well
[2022-08-24 11:37] LABS: Pathologist Review Reviewed
== END 2022-08-23 22:45 | disposition home or self-care (01) ==
PROVIDERS: Emergency Provider Emergency Medicine; PCP Family Medicine; Visit Provider Emergency Medicine
DX: J44.1 Chronic obstructive pulmonary disease with (acute) exacerbation (principal); I10 Essential (primary) hypertension; M79.10 Myalgia, unspecified site; Z20.822 Contact with and (suspected) exposure to COVID-19
CPT/HCPCS: 71045; 80048; 84484; 85025; 87428; 93005; 94640; 94760; 96374; 96375; 99251; 99283; A4216; G0463

== ENCOUNTER 2022-08-26 10:52 | Inpatient (IN) | payer OTHER, SELFPAY ==
[2022-08-26] VITALS (21 sets, daily range): BP systolic 118–176; BP diastolic 71–100; PULSE 68–99; RESP 14–26; TEMP 36.2–37.2; O2SAT 79–97; BMI 22.8
--- NOTE | 2022-08-26 11:05 | EKG12_ITS ---
Test Reason : SOB Blood Pressure : / mmHG Vent. Rate : 090 BPM Atrial Rate : 090 BPM P-R Int : 122 ms QRS Dur : 068 ms QT Int : 336 ms P-R-T Axes : 079 068 055 degrees QTc Int : 411 ms Normal sinus rhythm with sinus arrhythmia Nonspecific ST abnormality Abnormal ECG Confirmed by FREDA JOHNS, KELLI ([id number]), science editor SEBASTIEN ROMERO ([id number]) on 08/28/2022 1:10:52 PM Referred By: Confirmed By:KELLI BARBA MD
--- NOTE | 2022-08-26 11:07 | EDS_ITS ---
HPI History of Present Illness Chief Complaint: Shortness of Breath Detail of Chief Complaint: Shortness of breath x4 days Informant: patient and family Narrative Narrative: Patient presents with shortness of breath x4 days. Patient states he was seen in the emergency department 4 days ago and discharged home. He has history of COPD. Patient coughing up green phlegm. He denies fever. Complains of some pain in his center chest that he thinks are from his bronchial tubes. Patient does not wear home O2. He complains of exertional dyspnea. He denies recent travel or surgery. [facility] Medical History (Updated 08/26/22 @ 12:[address] Carmelo Bauer, DO) COPD (chronic obstructive pulmonary disease) [place] (hard of hearing) Hypertension Home Medications albuterol sulfate 2.5 mg/3 mL (0.083 %) solution for nebulization 2.5 mg (3 mL) inhalation Q4H PRN #25 vials 10/19/16 [Rx Last Taken Unknown] prednisone 20 mg tablet 40 mg PO DAILY@0800 ##8 10/19/16 [Rx Last Taken Unknown] amlodipine 5 mg tablet 5 mg PO DAILY 03/06/21 [History Last Taken Unknown] fluticasone furoate 200 mcg-vilanterol 25 mcg/dose inhalation powder (Breo Ellipta) 1 inh inhalation DAILY 03/06/21 [History Last Taken Unknown] cephalexin 500 mg capsule 500 mg PO Q6 #40 caps 05/01/21 [Rx Last Taken Unknown] hydrocodone-acetaminophen 5-325mg 5mg-325mg 1 tab PO Q6H PRN pain 3 days #10 tabs 05/01/21 [Rx Last Taken Unknown] sulfamethoxazole 800 mg-trimethoprim 160 mg tablet (Bactrim DS) 1 tab PO BID #20 tabs 05/01/21 [Rx Last Taken Unknown] hydrocodone-acetaminophen 5-325mg 5mg-325mg 1 tab PO Q6H PRN pain 3 days #6 tabs 08/23/22 [Rx Last Taken Unknown] prednisone 20 mg tablet 60 mg PO DAILY #15 tabs 08/23/22 [Rx Last Taken Unknown] Allergy/AdvReac Type Severity Reaction Status Date / Time No Known Allergies Allergy Verified 08/26/22 10:56 Surgical History History of replacement of both shoulder joints Social History Smoking Status: Never smoker ROS ROS ED Review of Systems ROS Unobtainable: other Constitutional Constitutional ED: Reports lethargy; Denies chills, fever(s), sweats or weight loss Eyes Eyes: Denies blurry vision, change in vision or diplopia ENT ENT ED: Denies rhinorrhea or sore throat Cardiovascular Cardiovascular: Reports chest pain; Denies orthopnea or racing heartbeat Respiratory/Chest Respiratory/Chest: Reports dyspnea and dyspnea on exertion; Denies cough, orthopnea or sputum Gastrointestinal Gastrointestinal: Denies abdominal pain, diarrhea, nausea or vomiting Genitourinary Genitourinary ED: Denies dysuria, hematuria or urinary frequency Musculoskeletal Musculoskeletal: Denies arthralgias, back pain, myalgias or neck pain Integumentary Denies abscess, Abrasions or rash Neurologic Neurologic: Denies headache(s) or weakness Psychiatric Psychiatric: Denies anxiety, depression or suicidal thoughts Endocrine Endocrinology: Denies polydipsia, polyphagia or polyuria Hematologic/Lymphatic Hematologic/Lymphatic: Denies easy bleeding, easy bruising or lymphadenopathy Allergic/Immunologic Allergic/Immunologic ED: Denies mouth swelling, tongue swelling or urticaria EXAM Physical Exam Const Vital Signs: 08/26/22 10:52 08/26/22 10:55 08/26/22 10:56 Temperature 98.6 F Temperature Source Temporal Pulse Rate 99 Respiratory Rate 26 H Respiratory Effort Accessory Muscle Use Pursed Lip Retracting Respiratory Depth Shallow Respiratory Pattern Tachypnea Blood Pressure 176/100 H Blood Pressure Mean 125 Pulse Ox 79 92 Oxygen Delivery Method Room Air Nasal Cannula Room Air Oxygen Flow Rate (L/min) 5 08/26/22 11:01 08/26/22 11:01 08/26/22 11:02 Temperature Temperature Source Pulse Rate 94 Respiratory Rate 24 H 22 H Respiratory Effort Respiratory Depth Respiratory Pattern Blood Pressure 136/89 H Blood Pressure Mean 104 Pulse Ox 94 94 94 Oxygen Delivery Method Nasal Cannula Nasal Cannula Nasal Cannula Oxygen Flow Rate (L/min) 5 5 5 08/26/22 11:12 08/26/22 11:18 Temperature Temperature Source Pulse Rate 93 95 Respiratory Rate 20 H 18 Respiratory Effort Respiratory Depth Respiratory Pattern Blood Pressure 118/79 Blood Pressure Mean 92 Pulse Ox 94 Oxygen Delivery Method Nasal Cannula Oxygen Flow Rate (L/min) 5 Positive well nourished and well developed General Appearance ED: well developed and NAD HEENT Reports TM's clear and moist mucous membranes normocephalic and atraumatic; Negative for trauma or tenderness Tympanic Membrane ED: Yes TM's clear Eyes PERRL and EOMs intact bilaterally General Eye ED: Negative for pale conjunctiva or scleral icterus Neck no lymphadenopathy, supple and no JVD General: Negative for tenderness Chest Wall inspection of chest normal and palpation of chest normal Chest: Negative for tenderness Resp normal respiratory effort and clear to auscultation bilaterally Resp Narrative: Coarse breath sounds bilaterally with tachypnea. No accessory muscle use or retractions. Patient has expiratory wheezes bilaterally. Effort and Inspection: Negative for respiratory distress or pain with movement Auscultation: Negative for rhonchi, wheezes or diminished lung sounds Cardio regular rate, regular rhythm, S1 normal heart sound, S2 normal heart sound and no murmurs Peripheral Pulses: pulses 2+ throughout GI normal to inspection, nondistended, normoactive bowel sounds, soft to palpation, non-tender, non-distended and no masses Back/Spine no CVA tenderness and no thoracic nor lumbar tenderness Extremity normal to inspection General Extremety ED: Negative for edema General Extremity: Negative for edema Neuro oriented x3, CN's II-XII intact bilaterally, no sensory deficits noted and gait normal Sensorium / Orientation: awake, alert, oriented to person, oriented to place and oriented to time Motor Exam: strength 5/5 throughout and strength abnormal Psych mental status grossly normal Skin no rashes or lesions noted and no wounds MDM MDM MDM Narrative Medical decision making narrative: IV line established on arrival. CBC with differential white count 19.1. Hemoglobin was 15, hematocrit 47. Patient was ordered steroids during his last visit to the emergency department. Some of the WBC count elevation may be related to that. 1 view chest x-ray obtained was interpreted by myself as right lower lobe infiltrate and radiology was in agreement with that. Patient was po sitive for influenza A and negative for COVID-19 on rapid testing. Patient had blood cultures and was started on Rocephin and Zithromax IV. Lactate was normal at 1.8. Patient was given DuoNeb aerosol. Patient was given Solu-Medrol 125 mg IV. Case will be discussed with hospitalist to evaluate patient for admission for influenza A, pneumonia, and hypoxemia. Lab Data Attestation: I reviewed the patient's lab results. Labs: Laboratory Results - last 24 hr 08/26/22 08/26/22 08/26/22 10:55 10:55 11:06 WBC 19.1 H RBC 5.46 Hgb 15.4 Hct 47.5 MCV 87.0 MCH 28.2 MCHC 32.4 RDW Std Deviation 46.1 H RDW Coeff of Sherri 14.3 Plt Count 364 MPV 9.4 Immature Gran % (Auto) 0.400 Neut % (Auto) 87.1 H Lymph % (Auto) 4.3 L [place] % (Auto) 8.1 Eos % (Auto) 0.0 Baso % (Auto) 0.1 Absolute Neuts (auto) 16.6 H Absolute Lymphs (auto) 0.81 L Nucleated RBC % 0 Differential Comment SCANNED Diff Path Review May foll Sodium Cancelled Potassium Cancelled Chloride Cancelled Carbon Dioxide Cancelled Anion Gap Cancelled BUN Cancelled Creatinine Cancelled Estim Creat Clear Calc Cancelled Est GFR (MDRD) Af Amer Cancelled Est GFR (MDRD) Non-Af Cancelled BUN/Creatinine Ratio Cancelled Glucose Cancelled Lactic Acid 1.8 Calcium Cancelled Troponin I High Sens 08/26/22 11:14 WBC RBC Hgb Hct MCV MCH MCHC RDW Std Deviation RDW Coeff of Sherri Plt Count MPV Immature Gran % (Auto) Neut % (Auto) Lymph % (Auto) [place] % (Auto) Eos % (Auto) Baso % (Auto) Absolute Neuts (auto) Absolute Lymphs (auto) Nucleated RBC % Differential Comment Diff Path Review Sodium 136 Potassium 3.8 Chloride 99 Carbon Dioxide 33.0 H Anion Gap 4 L BUN 36 H Creatinine 1.02 Estim Creat Clear Calc 59.94 Est GFR (MDRD) Af Amer 92 Est GFR (MDRD) Non-Af 76 BUN/Creatinine Ratio 35.3 H Glucose 156 H Lactic Acid Calcium 9.0 Troponin I High Sens 14 Radiography Diagnostic Testing: Clinical Impression(s) from Imaging Studies Chest X-Ray 08/26/22 11:21 IMPRESSION: Suspect pneumonia in the right base. Underlying COPD and remote granulomatous exposure. Electronically Signed: Kelly Mcfarland MD at 11:45 EST Reading Location ID and State: , Service support , 1 view chest x-ray obtained interpreted by myself as right lower lobe infiltrate. Radiology in agreement. EKG Initial EKG: Attestation: I personally reviewed and interpreted this EKG as follows: Comments: Sinus rhythm with a ventricular rate of [address] changes Prior EKG tracings: available for review Prior: Unchanged Discharge Plan Dx/Rx/DC Orders Clinical Impression: Influenza A, Pneumonia, COPD exacerbation, Acute hypoxemic respiratory failure Disposition Disposition: Acute Care [facility]
[2022-08-26 11:09] LABS: Absolute Lymphocyte Count 0.81 X10^3/uL (0.83-4.51); Absolute Neutrophil Count 16.6 X10^3/uL (2.0-7.7); Basophil# 0.02 X10^3/uL; Basophil% 0.1 % (0-1); Hematocrit 47.5 % (40-54); Hemoglobin 15.4 g/dL (13.0-16.5); Lymphocyte # 0.81 X10^3/ul (0.83-4.51); Lymphocyte % 4.3 % (19-41); Mean Corp Hgb Conc 32.4 g/dL (32-36); Mean Corpuscular Hgb 28.2 pg (27.0-32.0); Mean Platelet Vol. 9.4 fl (6.2-12.0); Monocyte# 1.54 X10^3/uL; Monocyte% 8.1 % (0-10); NRBC Flagged by Analyzer 0 % (0-5); Neutrophil % 87.1 % (47-70); POSITIVE DIFFERENTIAL YES; Platelet Count 364 K/mm3 (150-450); RBC Distribution Width CV 14.3 % (11.6-14.6); RBC Distribution Width SD 46.1 fl (35.1-43.9); Red Blood Count 5.46 M/mm3 (4.6-6.2); White Blood Count 19.1 K/mm3 (4.4-11.0)
[2022-08-26] MEDS: Ipratropium/Albuterol Sulfate 3 ML AMPUL.NEB INHALATION ×4 (11:11→22:11)
[2022-08-26 11:16] LABS: Differential Indicated SCAN CRITERIA MET
[2022-08-26] MEDS: MethylPREDNISolone 125 MG/2 ML Vial IV (11:17)
--- NOTE | 2022-08-26 11:21 | RAD_ITS ---
STUDY: X-RAY CHEST REASON FOR EXAM: Male, 71 years old. dyspnea TECHNIQUE: Single AP portable view of the chest. COMPARISON: 08/23/2022 FINDINGS: There is increased airspace opacification in the right base since previous exam. Areas of hyperinflation. Scattered calcified nodules. Normal size heart. There are calcified mediastinal lymph nodes. Normal visualized pulmonary arteries. Normal visualized aortic arch and descending thoracic aorta. There are diffuse degenerative changes of the visualized thoracic spine. 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 There is no demonstrated abnormality of the visualized soft tissue structures of the upper abdomen. RAD/Chest 1 View (Portable) IMPRESSION: Suspect pneumonia in the right base. Underlying COPD and remote granulomatous exposure. Electronically Signed: Kelly Mcfarland MD at 11:45 EST Reading Location ID and State: , Service support ,
[2022-08-26 11:36] LABS: Lactic Acid 1.8 mmol/L (0.4-1.9)
[2022-08-26 11:37] LABS: Anion Gap 4 (5-15); BUN 36 mg/dL (7-18); BUN/Creat Ratio 35.3 RATIO (10-20); Chloride 99 mmol/L (98-107); Creatinine, Serum 1.02 mg/dL (0.70-1.30); EST Glomerular Filtration Rate 76 mL/min (>60); Est Glom Filt Rate - Afr Amer 92 mL/min (>60); Estimated Creatinine Clearance 59.94 ml/min; Glucose 156 mg/dL (74-106); Potassium 3.8 mmol/L (3.5-5.1); Sodium Level 136 mmol/L (136-145); Troponin-I HS 14 pg/mL (3.0-78.0)
[2022-08-26 11:41] LABS: Differential Comment SCANNED
[2022-08-26] MEDS: Ceftriaxone 1 GM/50 ML BAG IV (12:24)
--- NOTE | 2022-08-26 13:05 | PCM.HP.STD ---
HPI - General General Date of Admission: 08/26/22 Date of Service: 08/26/22 Chief Complaint: SOB HPI Narrative Mr. Johnson is a 71-year-old male with a history of COPD who presented to [facility] 08/26/2022 with worsening shortness of breath and productive cough. He was here on 08/23 with increased dyspnea and myalgias that had mostly started that day. He had been having more wheezing for several days. Had some aches all over and some tightness in his chest with his difficulty breathing. O2 sats were 94% on room air while asleep and lungs improved with breathing treatments and steroids. COVID and flu were negative. He was discharged on prednisone for COPD exacerbation and was continued on his home Breo Ellipta and albuterol as needed. Since that time his breathing has continued to worsen to the point that he began to be dizzy when he would try to walk, he was brought back to the emergency department and was found to be saturating in the 70s on room air and was placed on oxygen. He was given a dose of Solu-Medrol, as a throat, Rocephin and did neb and somewhat improved but still O2 dependent. Hospitalist consulted for admission. Patient reports feeling slightly better than when he came in but still very far from baseline is having shortness of breath and thick cough with green sputum. He was found to be influenza A positive. Denies fever, still feels generally unwell. No chest pain, no bowel or bladder changes. Intermittently has been having headache. Had been using his home inhalers with very short-term relief. [facility] Medical History (Updated 08/26/22 @ 12:[address] Carmelo Bauer DO) COPD (chronic obstructive pulmonary disease) [place] (hard of hearing) Hypertension Home Medications albuterol sulfate 2.5 mg/3 mL (0.083 %) solution for nebulization 2.5 mg (3 mL) inhalation Q4H PRN #25 vials 10/19/16 [Rx Last Taken Unknown] prednisone 20 mg tablet 40 mg PO DAILY@0800 ##8 10/19/16 [Rx Last Taken Unknown] amlodipine 5 mg tablet 5 mg PO DAILY 03/06/21 [History Last Taken Unknown] fluticasone furoate 200 mcg-vilanterol 25 mcg/dose inhalation powder (Breo Ellipta) 1 inh inhalation DAILY 03/06/21 [History Last Taken Unknown] cephalexin 500 mg capsule 500 mg PO Q6 #40 caps 05/01/21 [Rx Last Taken Unknown] hydrocodone-acetaminophen 5-325mg 5mg-325mg 1 tab PO Q6H PRN pain 3 days #10 tabs 05/01/21 [Rx Last Taken Unknown] sulfamethoxazole 800 mg-trimethoprim 160 mg tablet (Bactrim DS) 1 tab PO BID #20 tabs 05/01/21 [Rx Last Taken Unknown] hydrocodone-acetaminophen 5-325mg 5mg-325mg 1 tab PO Q6H PRN pain 3 days #6 tabs 08/23/22 [Rx Last Taken Unknown] prednisone 20 mg tablet 60 mg PO DAILY #15 tabs 08/23/22 [Rx Last Taken Unknown] Allergy/AdvReac Type Severity Reaction Status Date / Time No Known Allergies Allergy Verified 08/26/22 10:56 Surgical History History of replacement of both shoulder joints Social History Smoking Status: Never smoker ROS Constitutional Constitutional: Denies chills or fever(s) Eyes Eyes: Denies change in vision ENT HEENT: Reports headache(s); Denies nasal congestion or sore throat Cardiovascular Cardiovascular: Denies chest pain or palpitations Respiratory/Chest Respiratory/Chest: Reports cough, productive cough, shortness of breath at rest and shortness of breath with exertion Gastrointestinal Gastrointestinal: Reports other Details: denies changes in bowel or bladder ; Denies abdominal pain Genitourinary Genitourinary: Reports other Details: denies changes in urination Musculoskeletal Musculoskeletal: Denies joint pain Neurologic Neurologic: Reports dizziness; Denies focal weakness, headache(s), numbness or tingling Psychiatric Psychiatric: Denies anxiety Hematologic/Lymphatic Hematologic/Lymphatic: Denies easy bleeding Allergic/Immunologic Allergic/Immunologic: Reports other Details: denies rashes Vital Signs Vital Signs Vital Signs: 08/26/22 10:52 08/26/22 10:55 08/26/22 10:56 Temperature 98.6 F Temperature Source Temporal Pulse Rate 99 Respiratory Rate 26 H Respiratory Effort Accessory Muscle Use Pursed Lip Retracting Respiratory Depth Shallow Respiratory Pattern Tachypnea Blood Pressure 176/100 H Blood Pressure Mean 125 Pulse Ox 79 92 Oxygen Delivery Method Room Air Nasal Cannula Room Air Oxygen Flow Rate (L/min) 5 08/26/22 11:01 08/26/22 11:01 08/26/22 11:02 Temperature Temperature Source Pulse Rate 94 Respiratory Rate 24 H 22 H Respiratory Effort Respiratory Depth Respiratory Pattern Blood Pressure 136/89 H Blood Pressure Mean 104 Pulse Ox 94 94 94 Oxygen Delivery Method Nasal Cannula Nasal Cannula Nasal Cannula Oxygen Flow Rate (L/min) 5 5 5 08/26/22 11:12 08/26/22 11:18 08/26/22 12:30 Temperature 98.0 F Temperature Source Temporal Pulse Rate 93 95 83 Respiratory Rate 20 H 18 20 H Respiratory Effort Respiratory Depth Respiratory Pattern Blood Pressure 118/79 118/78 Blood Pressure Mean 92 91 Pulse Ox 94 94 Oxygen Delivery Method Nasal Cannula Oxygen Flow Rate (L/min) 5 Weight Weight: 64.41 kg Body Mass Index (BMI) 22.8 Physical Exam Const alert Constitutional Narrative: Oriented HEENT normocephalic and head/scalp atraumatic Eyes Eyes Narrative: EOM grossly intact, anicteric Neck supple Resp Resp Narrative: Increased of breathing, diffuse expiratory wheezes Cardio regular rate and regular rhythm GI soft to palpation, non-tender and non-distended Extremity Extremity Narrative: No edema appreciated Neuro moves all extremities Neuro Narrative: No overt focal deficits appreciated Psych Psych Narrative: Cooperative Results Lab / Micro Data Result Diagrams: 08/26/22 10:55 08/26/22 11:14 Labs: Laboratory Results - last 24 hr 08/26/22 10:55: WBC 19.1 H, RBC 5.46, Hgb 15.4, Hct 47.5, MCV 87.0, MCH 28.2, MCHC 32.4, RDW Std Deviation 46.1 H, RDW Coeff of Sherri 14.3, Plt Count 364, MPV 9.4, Immature Gran % (Auto) 0.400, Neut % (Auto) 87.1 H, Lymph % (Auto) 4.3 L, [place] % (Auto) 8.1, Eos % (Auto) 0.0, Baso % (Auto) 0.1, Absolute Neuts (auto) 16.6 H, Absolute Lymphs (auto) 0.81 L, Nucleated RBC % 0, Differential Comment SCANNED, Diff Path Review December08/26/22 10:55: Sodium Cancelled, Potassium Cancelled, Chloride Cancelled, Carbon Dioxide Cancelled, Anion Gap Cancelled, BUN Cancelled, Creatinine Cancelled, Estim Creat Clear Calc Cancelled, Est GFR (MDRD) Af Amer Cancelled, Est GFR (MDRD) Non-Af Cancelled, BUN/Creatinine Ratio Cancelled, Glucose Cancelled, Calcium Cancelled 08/26/22 11:06: Lactic Acid 1.8 08/26/22 11:14: Sodium 136, Potassium 3.8, Chloride 99, Carbon Dioxide 33.0 H, Anion Gap 4 L, BUN 36 H, Creatinine 1.02, Estim Creat Clear Calc 59.94, Est GFR (MDRD) Af Amer 92, Est GFR (MDRD) Non-Af 76, BUN/Creatinine Ratio 35.3 H, Glucose 156 H, Calcium 9.0, Troponin I High Sens 14 Micro: Microbiology 08/26/22 11:05 Nasal Secretion SARS-CoV-2 & FLU Antigen (Rapid) - Final Radiology Impression Chest X-Ray 08/26/22 11:21 IMPRESSION: Suspect pneumonia in the right base. Underlying COPD and remote granulomatous exposure. Electronically Signed: Kelly Mcfarland MD at 11:45 EST Reading Location ID and State: , Service support , Assessment & Plan Assessment/Plan (1) COPD with acute exacerbation: PLAN: Plan #AE COPD with acute hypoxia 2/2 influenza and possible CAP Has baseline COPD not on home O2, saturating 94% on 5 L Chest x-ray does have evidence of right lower infiltrate, will cover with abx for CAP Sputum culture, urine antigens I/S, nebs, steroids, Mucinex #HTN amlodipine #DVT ppx: Juwan Estrella MD Charges/Coding Visit Charges Inpatient E&M: 25111 Init Hosp L2
--- NOTE | 2022-08-26 13:16 | NURSING ---
MED SURG HOYOS COPD EXAC, INFLUENZA, HYPOXIA, PNEUMONIA
[2022-08-26] MEDS: Acetaminophen 325 MG Tablet 650 MG PO (16:26)
[2022-08-26] MEDS: MELATONIN 10 MG TABLET PO (21:55)
[2022-08-26] MEDS: 0.9% Saline Lock 10 ML Syringe IV (21:56)
[2022-08-26] MEDS: guaiFENesin 1,200 MG Tablet 1200 MG PO (21:56)
[2022-08-27] VITALS (21 sets, daily range): BP systolic 122–152; BP diastolic 70–87; PULSE 68–93; RESP 20–24; TEMP 36.5–37.2; O2SAT 90–100
[2022-08-27] MEDS: Albuterol 2.5 MG/3 ML VIAL.NEB. INHALATION (01:40)
[2022-08-27] MEDS: Ipratropium/Albuterol Sulfate 3 ML AMPUL.NEB INHALATION ×4 (03:45→15:15)
[2022-08-27] MEDS: 0.9% Saline Lock 10 ML Syringe IV (06:00)
[2022-08-27 06:26] LABS: Absolute Lymphocyte Count 0.13 X10^3/uL (0.83-4.51); Absolute Neutrophil Count 12.1 X10^3/uL (2.0-7.7); Basophil# 0.01 X10^3/uL; Basophil% 0.1 % (0-1); Hematocrit 38.7 % (40-54); Hemoglobin 12.1 g/dL (13.0-16.5); Lymphocyte # 0.13 X10^3/ul (0.83-4.51); Mean Corp Hgb Conc 31.3 g/dL (32-36); Mean Corpuscular Hgb 27.3 pg (27.0-32.0); Mean Corpuscular Volume 87.4 fL (80-94); Monocyte% 2.4 % (0-10); NRBC Flagged by Analyzer 0 % (0-5); Neutrophil # 12.13 X10^3/uL (2.7-7.7); Neutrophil % 96.1 % (47-70); POSITIVE DIFFERENTIAL YES; Platelet Count 282 K/mm3 (150-450); RBC Distribution Width CV 14.1 % (11.6-14.6); RBC Distribution Width SD 45.5 fl (35.1-43.9); Red Blood Count 4.43 M/mm3 (4.6-6.2); White Blood Count 12.6 K/mm3 (4.4-11.0)
[2022-08-27 06:28] LABS: Differential Indicated SCAN CRITERIA MET
[2022-08-27 06:58] LABS: ALB/GLOB Ratio 0.7 RATIO (0.9-2.4); AST(SGOT) 8 U/L (15-37); Alanine Aminotransfer ALT/SGPT 23 U/L (16-61); Albumin, Serum 2.5 g/dL (3.2-5.0); Alkaline Phosphatase 71 U/L (45-117); Anion Gap 5 (5-15); BUN 29 mg/dL (7-18); BUN/Creat Ratio 31.7 RATIO (10-20); Calcium,Total 8.6 mg/dL (8.5-10.1); Chloride 99 mmol/L (98-107); Creatinine, Serum 0.92 mg/dL (0.70-1.30); EST Glomerular Filtration Rate 87 mL/min (>60); Est Glom Filt Rate - Afr Amer 105 mL/min (>60); Globulin 3.8 g/dL (2.2-4.2); Glucose 255 mg/dL (74-106); Potassium 3.6 mmol/L (3.5-5.1); Protein, Total 6.3 g/dL (6.4-8.2); Sodium Level 133 mmol/L (136-145)
[2022-08-27 07:01] LABS: Differential Comment SCANNED
[2022-08-27] MEDS: Azithromycin 250 MG Tablet 500 MG PO (09:05)
[2022-08-27] MEDS: Enoxaparin 40 MG/0.4 ML Syringe SC (09:05)
[2022-08-27] MEDS: amLODIPine 5 MG Tablet PO (09:06)
[2022-08-27] MEDS: guaiFENesin 1,200 MG Tablet 1200 MG PO ×2 (09:06→22:58)
[2022-08-27] MEDS: Acetaminophen 325 MG Tablet 650 MG PO ×2 (09:06→17:08)
[2022-08-27] MEDS: hydrOXYzine 10 MG Tablet PO ×2 (09:16→17:09)
--- NOTE | 2022-08-27 11:15 | PN.HOSP_ITS ---
Subjective Subjective Follow-up on acute hypoxia/acute influenza A/community-acquired pneumonia: Patient was seen and examined. He is currently on 2 L of oxygen. He has been coughing up a lot of sputum. Denies any chest pain or worsening shortness of breath. Objective Data Objective Data Vital Signs: Vital Signs Temp Pulse Resp BP Pulse Ox O2 Del Method O2 Flow Rate 98.1 F 90 20 H 124/74 H 97 Nasal Cannula 2 08/27/22 10:24 08/27/22 10:24 08/27/22 10:24 08/27/22 10:24 08/27/22 10:24 08/27/22 10:24 08/27/22 10:24 Oxygen Flow Rate (L/min) 2 Oxygen Delivery Method Nasal Cannula Weight: 62.5 kg Body Mass Index (BMI) 22.8 Intake & Output: Intake and Output for Last 24 Hours 08/25/22 08/26/22 08/27/22 23:59 23:59 23:59 Intake Total 1505 / 2005 550 / 550 Output Total 575 / 575 Balance 1505 / 1705 -25 / -25 Lab / Micro Data Result Diagrams: 08/27/22 04:53 08/27/22 04:53 Labs: Laboratory Results - last 24 hr 08/26/22 10:55: WBC 19.1 H, RBC 5.46, Hgb 15.4, Hct 47.5, MCV 87.0, MCH 28.2, MCHC 32.4, RDW Std Deviation 46.1 H, RDW Coeff of Sherri 14.3, Plt Count 364, MPV 9.4, Immature Gran % (Auto) 0.400, Neut % (Auto) 87.1 H, Lymph % (Auto) 4.3 L, [place] % (Auto) 8.1, Eos % (Auto) 0.0, Baso % (Auto) 0.1, Absolute Neuts (auto) 16.6 H, Absolute Lymphs (auto) 0.81 L, Nucleated RBC % 0, Differential Comment SCANNED, Diff Path Review December08/26/22 10:55: Sodium Cancelled, Potassium Cancelled, Chloride Cancelled, Carbon Dioxide Cancelled, Anion Gap Cancelled, BUN Cancelled, Creatinine Cancelled, Estim Creat Clear Calc Cancelled, Est GFR (MDRD) Af Amer Cancelled, Est GFR (MDRD) Non-Af Cancelled, BUN/Creatinine Ratio Cancelled, Glucose Cancelled, Calcium Cancelled 08/26/22 11:06: Lactic Acid 1.8 08/26/22 11:14: Sodium 136, Potassium 3.8, Chloride 99, Carbon Dioxide 33.0 H, Anion Gap 4 L, BUN 36 H, Creatinine 1.02, Estim Creat Clear Calc 59.94, Est GFR (MDRD) Af Amer 92, Est GFR (MDRD) Non-Af 76, BUN/Creatinine Ratio 35.3 H, Glucose 156 H, Calcium 9.0, Troponin I High Sens 14 08/27/22 04:53: WBC 12.6 H, RBC 4.43 L, Hgb 12.1 L, Hct 38.7 L, MCV 87.4, MCH 27.3, MCHC 31.3 L, RDW Std Deviation 45.5 H, RDW Coeff of Sherri 14.1, Plt Count 282, MPV 10.0, Immature Gran % (Auto) 0.400, Neut % (Auto) 96.1 H, Lymph % (Auto) 1.0 L, [place] % (Auto) 2.4, Eos % (Auto) 0.0, Baso % (Auto) 0.1, Absolute Neuts (auto) 12.1 H, Absolute Lymphs (auto) 0.13 L, Nucleated RBC % 0, Differential Comment SCANNED 08/27/22 04:53: Sodium 133 L, Potassium 3.6, Chloride 99, Carbon Dioxide 29.0, A nion Gap 5, BUN 29 H, Creatinine 0.92, Estim Creat Clear Calc 65.10, Est GFR (MDRD) Af Amer 105, Est GFR (MDRD) Non-Af 87, BUN/Creatinine Ratio 31.7 H, Glucose 255 H, Calcium 8.6, Total Bilirubin 0.30, AST 8 L, ALT 23, Alkaline Phosphatase 71, Total Protein 6.3 L, Albumin 2.5 L, Globulin 3.8, Albumin/Globulin Ratio 0.7 L Micro: Microbiology 08/26/22 11:05 Nasal Secretion SARS-CoV-2 & FLU Antigen (Rapid) - Final Influenzae A 08/26/22 22:00 Urine, Random Streptococcus pneumoniae Antigen (M - Final 08/26/22 22:00 Urine, Random Legionella Antigen - Final 08/26/22 15:50 Interface Orders Respiratory Panel (PCR) - Final Influenza A (Subtype H1) Radiography Diagnostic Testing: Radiology Impression Chest X-Ray 08/26/22 11:21 IMPRESSION: Suspect pneumonia in the right base. Underlying COPD and remote granulomatous exposure. Electronically Signed: Kelly Mcfarland MD at 11:45 EST Reading Location ID and State: , Service support , Physical Exam Narrative Physical exam: General: Alert, Oriented x3, Cooperative, on 2 L of oxygen HEENT: Atraumatic Oral: Moist Mucosa Neck: Supple Lungs: Diminished to auscultation, wheezes ++ Cardiovascular: HS I+II, regular, no murmurs Abdomen: Bowel Sounds Present, Soft, Non Tender Extremities: No edema Skin: No rashes, No breakdown Neurological: Grossly intact Psych/Mental Status: Appropriate Assessment & Plan Assessment/Plan (1) Influenza A: (2) Pneumonia: PLAN: Plan 1. Acute hypoxia secondary to acute influenza A bronchitis/pneumonia Patient is currently on 2 L oxygen, continue with breathing treatments, Encourage use of incentive spirometer. Wean off oxygen for SPO2 more than 94% 2. Acute community-acquired pneumonia, chest x-ray shows infiltrate in the right lung base Continue on IV ceftriaxone azithromycin 3. Acute influenza A bronchitis, continue breathing treatment, prednisone 4. Hypertension, controlled, continue amlodipine 5. DVT prophylaxis?on Lovenox subcu Charges/Coding Visit Charges Inpatient E&M: 93890 Subs Hosp L2
[2022-08-27] MEDS: Senna/Docusate Sodium 1 Tablet 2 TABLET PO (22:57)
[2022-08-27] MEDS: MELATONIN 10 MG TABLET PO (22:58)
[2022-08-28] VITALS (24 sets, daily range): BP systolic 142–149; BP diastolic 70–88; PULSE 70–101; RESP 16–26; TEMP 36.4–36.6; O2SAT 72–98
[2022-08-28] MEDS: hydrOXYzine 10 MG Tablet PO ×2 (00:01→17:51)
[2022-08-28] MEDS: Albuterol 2.5 MG/3 ML VIAL.NEB. INHALATION (00:15)
[2022-08-28] MEDS: Acetaminophen 325 MG Tablet 650 MG PO ×2 (03:32→21:43)
[2022-08-28] MEDS: Senna/Docusate Sodium 1 Tablet 2 TABLET PO (03:33)
[2022-08-28 06:18] LABS: Absolute Lymphocyte Count 0.27 X10^3/uL (0.83-4.51); Absolute Neutrophil Count 10.7 X10^3/uL (2.0-7.7); Basophil# 0.01 X10^3/uL; Basophil% 0.1 % (0-1); Hematocrit 41.1 % (40-54); Hemoglobin 13.5 g/dL (13.0-16.5); Lymphocyte # 0.27 X10^3/ul (0.83-4.51); Lymphocyte % 2.4 % (19-41); Mean Corp Hgb Conc 32.8 g/dL (32-36); Mean Corpuscular Hgb 28.3 pg (27.0-32.0); Mean Corpuscular Volume 86.2 fL (80-94); Mean Platelet Vol. 9.2 fl (6.2-12.0); Monocyte# 0.34 X10^3/uL; NRBC Flagged by Analyzer 0 % (0-5); Neutrophil # 10.65 X10^3/uL (2.7-7.7); Neutrophil % 94.1 % (47-70); POSITIVE DIFFERENTIAL YES; Platelet Count 333 K/mm3 (150-450); RBC Distribution Width CV 14.2 % (11.6-14.6); RBC Distribution Width SD 45.3 fl (35.1-43.9); Red Blood Count 4.77 M/mm3 (4.6-6.2); White Blood Count 11.3 K/mm3 (4.4-11.0)
[2022-08-28 06:36] LABS: Differential Indicated SCAN CRITERIA MET
[2022-08-28 06:46] LABS: ALB/GLOB Ratio 0.7 RATIO (0.9-2.4); AST(SGOT) 15 U/L (15-37); Alanine Aminotransfer ALT/SGPT 25 U/L (16-61); Albumin, Serum 2.8 g/dL (3.2-5.0); Alkaline Phosphatase 75 U/L (45-117); Anion Gap 6 (5-15); BUN 31 mg/dL (7-18); BUN/Creat Ratio 31.5 RATIO (10-20); Calcium,Total 9.2 mg/dL (8.5-10.1); Chloride 98 mmol/L (98-107); Creatinine, Serum 0.98 mg/dL (0.70-1.30); EST Glomerular Filtration Rate 80 mL/min (>60); Est Glom Filt Rate - Afr Amer 96 mL/min (>60); Estimated Creatinine Clearance 61.12 ml/min; Globulin 4.2 g/dL (2.2-4.2); Glucose 182 mg/dL (74-106); Potassium 3.9 mmol/L (3.5-5.1); Sodium Level 133 mmol/L (136-145)
[2022-08-28] MEDS: Ipratropium/Albuterol Sulfate 3 ML AMPUL.NEB INHALATION ×5 (07:12→19:42)
[2022-08-28] MEDS: Budesonide Respules 0.5 MG/2 ML AMPUL.NEB. INHALATION ×2 (07:12→19:42)
[2022-08-28 07:14] LABS: Differential Comment SCANNED
[2022-08-28] MEDS: guaiFENesin 1,200 MG Tablet 1200 MG PO ×2 (09:12→21:46)
[2022-08-28] MEDS: predniSONE 20 MG Tablet 40 MG PO (09:12)
[2022-08-28] MEDS: amLODIPine 5 MG Tablet PO (09:12)
[2022-08-28] MEDS: Azithromycin 250 MG Tablet 500 MG PO (09:12)
[2022-08-28] MEDS: Enoxaparin 40 MG/0.4 ML Syringe SC (09:12)
--- NOTE | 2022-08-28 10:00 | CASEMGMT ---
EM JOINER Assessment: Face to Face with pt for initial transition planning/care coordination assessment. EM JOINER introduced self and role at [facility], pt voices understanding and consents to assessment. Pt is A/O x4 and answers all questions appropriately at this time. Pt sitting up in bed in no distress with oxygen on. Care providers, pharmacy, and demographics verified/updated. Admitting Dx: AE COPD PCP:[facility] Specialists:teresa Perez Preferred Pharmacy: [facility] [place] Insurance: [employer] Prescription Benefit: no LNOK: Jaylyn Johnson, Living Arrangements: Pt lives with in a two story house with no steps to enter. Pt reports he was I in ADL's prior to hospitalization and denies concerns at home. Pt works still. 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 DME/HHC/SNF: Pt has a nebulizer at home as well as a pox. Pt denies hx of HHC or SNF stays. Pt states no concerns with going home at time of dc. Pt is anxious about dc and wanting to go home. Provided pt with a verbal local in network list of DME companies should he need oxygen. Pt states he would like [employer]. Made aware of private pay cost. Discussed homegoing oxygen process. Pt states he does not have electricity in the home but there is a phone shack close that he could plug into. Pt declines HHC for education on oxygen and COPD should he need oxygen. Pt states no further concerns/needs. CM to follow. Advised pt to ask CM if any further question/concerns/needs arise, voices understanding. Pt Goal: Home Plan: Home, follow for oxygen
--- NOTE | 2022-08-28 13:27 | PN.HOSP_ITS ---
Subjective Subjective Follow-up on acute hypoxia/acute influenza A/community-acquired pneumonia: Patient was seen and examined.? Patient is very wheezy. He is on 2 L of oxygen. He is short of breath with any activity. Objective Data Objective Data Vital Signs: Vital Signs Temp Pulse Resp BP Pulse Ox O2 Del Method O2 Flow Rate 97.8 F 82 18 145/77 H 96 Nasal Cannula 2 08/28/22 11:16 08/28/22 12:21 08/28/22 11:28 08/28/22 11:16 08/28/22 11:16 08/28/22 11:16 08/28/22 11:16 Oxygen Flow Rate (L/min) 2 Oxygen Delivery Method Nasal Cannula Weight: 62.6 kg Body Mass Index (BMI) 22.8 Intake & Output: Intake and Output for Last 24 Hours 08/26/22 08/27/22 08/28/22 23:59 23:59 23:59 Intake Total 1505 / 2005 2250 / 2250 450 / 450 Output Total 575 / 575 Balance 1505 / 1705 1675 / 1675 450 / 450 Lab / Micro Data Result Diagrams: 08/28/22 05:50 08/28/22 05:50 Labs: Laboratory Results - last 24 hr 08/28/22 05:50: WBC 11.3 H, RBC 4.77, Hgb 13.5, Hct 41.1, MCV 86.2, MCH 28.3, MCHC 32.8, RDW Std Deviation 45.3 H, RDW Coeff of Sherri 14.2, Plt Count 333, MPV 9.2, Immature Gran % (Auto) 0.400, Neut % (Auto) 94.1 H, Lymph % (Auto) 2.4 L, [place] % (Auto) 3.0, Eos % (Auto) 0.0, Baso % (Auto) 0.1, Absolute Neuts (auto) 10.7 H, Absolute Lymphs (auto) 0.27 L, Nucleated RBC % 0, Differential Comment SCANNED 08/28/22 05:50: Sodium 133 L, Potassium 3.9, Chloride 98, Carbon Dioxide 29.0, Anion Gap 6, BUN 31 H, Creatinine 0.98, Estim Creat Clear Calc 61.12, Est GFR (MDRD) Af Amer 96, Est GFR (MDRD) Non-Af 80, BUN/Creatinine Ratio 31.5 H, Glucose 182 H, Calcium 9.2, Total Bilirubin 0.40, AST 15, ALT 25, Alkaline Phosphatase 75, Total Protein 7.0, Albumin 2.8 L, Globulin 4.2, Albumin/Globulin Ratio 0.7 L Micro: Microbiology 08/26/22 22:00 Sputum, Expectorated/Coughed Gram Stain - Final 08/26/22 22:00 Sputum, Expectorated/Coughed Respiratory Culture - Preliminary Appears to be normal respiratory rakel. Further studies to follow. 08/26/22 11:05 Nasal Secretion SARS-CoV-2 & FLU Antigen (Rapid) - Final Influenzae A 08/26/22 22:00 Urine, Random Streptococcus pneumoniae Antigen (M - Final 08/26/22 22:00 Urine, Random Legionella Antigen - Final 08/26/22 15:50 Interface Orders Respiratory Panel (PCR) - Final Influenza A (Subtype H1) Physical Exam Narrative Physical exam: General: Alert, Oriented x3, Cooperative, on 2 L of oxygen HEENT: Atraumatic Oral: Moist Mucosa Neck: Supple Lungs: Diminished to auscultation, wheezes ++ Cardiovascular: HS I+II, regular, no murmurs Abdomen: Bowel Sounds Present, Soft, Non Tender Extremities: No edema Skin: No rashes, No breakdown Neurological: Grossly intact Psych/Mental Status: Appropriate Assessment & Plan Assessment/Plan (1) Influenza A: (2) Pneumonia: PLAN: Plan 1. Acute hypoxia secondary to acute influenza A bronchitis/pneumonia Remains on 2 L oxygen, continue with breathing treatments, Encourage use of incentive spirometer. Wean off oxygen for SPO2 more than 94% 2. Acute community-acquired pneumonia, chest x-ray shows infiltrate in the right lung base Continue on IV ceftriaxone and azithromycin 3. Acute influenza A bronchitis, persistent Will switch from prednisone to IV solumedrol, continue breathing treatment, 4. Hypertension, controlled, continue amlodipine 5. DVT prophylaxis?on Lovenox subcu Charges/Coding Visit Charges Inpatient E&M: 56047 Subs Hosp L2
[2022-08-28] MEDS: MELATONIN 10 MG TABLET PO (21:46)
[2022-08-28] MEDS: 0.9% Saline Lock 10 ML Syringe IV (22:53)
[2022-08-29] VITALS (20 sets, daily range): BP systolic 137–164; BP diastolic 76–94; PULSE 75–97; RESP 14–20; TEMP 36.4–37.2; O2SAT 86–98
[2022-08-29] MEDS: hydrOXYzine 10 MG Tablet PO ×2 (01:00→22:53)
[2022-08-29] MEDS: Ipratropium/Albuterol Sulfate 3 ML AMPUL.NEB INHALATION ×5 (02:35→20:09)
[2022-08-29 05:16] LABS: Absolute Neutrophil Count 10.8 X10^3/uL (2.0-7.7); Basophil# 0.01 X10^3/uL; Basophil% 0.1 % (0-1); Hematocrit 40.2 % (40-54); Hemoglobin 12.9 g/dL (13.0-16.5); Lymphocyte % 2.6 % (19-41); Mean Corp Hgb Conc 32.1 g/dL (32-36); Mean Corpuscular Hgb 27.7 pg (27.0-32.0); Mean Corpuscular Volume 86.3 fL (80-94); Mean Platelet Vol. 9.6 fl (6.2-12.0); Monocyte# 0.41 X10^3/uL; Monocyte% 3.5 % (0-10); NRBC Flagged by Analyzer 0 % (0-5); Neutrophil # 10.77 X10^3/uL (2.7-7.7); Neutrophil % 93.1 % (47-70); POSITIVE DIFFERENTIAL YES; Platelet Count 330 K/mm3 (150-450); RBC Distribution Width CV 14.3 % (11.6-14.6); Red Blood Count 4.66 M/mm3 (4.6-6.2); White Blood Count 11.6 K/mm3 (4.4-11.0)
[2022-08-29 05:23] LABS: Differential Indicated SCAN CRITERIA MET
[2022-08-29 05:42] LABS: ALB/GLOB Ratio 0.7 RATIO (0.9-2.4); AST(SGOT) 15 U/L (15-37); Alanine Aminotransfer ALT/SGPT 24 U/L (16-61); Albumin, Serum 2.7 g/dL (3.2-5.0); Alkaline Phosphatase 81 U/L (45-117); Anion Gap 6 (5-15); BUN 23 mg/dL (7-18); BUN/Creat Ratio 25.9 RATIO (10-20); Calcium,Total 8.7 mg/dL (8.5-10.1); Chloride 100 mmol/L (98-107); Creatinine, Serum 0.89 mg/dL (0.70-1.30); EST Glomerular Filtration Rate 90 mL/min (>60); Est Glom Filt Rate - Afr Amer 108 mL/min (>60); Estimated Creatinine Clearance 67.41 ml/min; Globulin 3.7 g/dL (2.2-4.2); Glucose 185 mg/dL (74-106); Potassium 3.9 mmol/L (3.5-5.1); Protein, Total 6.4 g/dL (6.4-8.2); Sodium Level 137 mmol/L (136-145)
[2022-08-29 05:45] LABS: Differential Comment SCANNED
[2022-08-29] MEDS: 0.9% Saline Lock 10 ML Syringe IV ×4 (05:52→22:21)
[2022-08-29] MEDS: Budesonide Respules 0.5 MG/2 ML AMPUL.NEB. INHALATION ×2 (06:45→20:09)
[2022-08-29] MEDS: guaiFENesin 1,200 MG Tablet 1200 MG PO ×2 (09:06→22:20)
[2022-08-29] MEDS: Azithromycin 250 MG Tablet 500 MG PO (09:06)
[2022-08-29] MEDS: amLODIPine 5 MG Tablet PO (09:06)
[2022-08-29] MEDS: Enoxaparin 40 MG/0.4 ML Syringe SC (09:06)
[2022-08-29 09:33] LABS: Pathologist Review Reviewed
--- NOTE | 2022-08-29 10:51 | NURSING ---
pt ambulated in halls sats dropped to 86% and pt sob . pt stated he feels like he is going to pass out and legs became weak. leaned pt against wall till pt caught his breath. dr notified that pt felt like passing out during ambulation.
--- NOTE | 2022-08-29 11:20 | PN.HOSP_ITS ---
Subjective Subjective Follow-up on acute hypoxia/acute influenza A/community-acquired pneumonia: Patient was seen and examined.? Patient remains wheezy. He was very symptomatic he was being evaluated for home oxygen. He is still on 2 L of oxygen. Objective Data Objective Data Vital Signs: Vital Signs Temp Pulse Resp BP Pulse Ox O2 Del Method O2 Flow Rate 97.6 F L 86 20 H 137/79 H 95 Nasal Cannula 2 08/29/22 11:13 08/29/22 11:13 08/29/22 11:13 08/29/22 11:13 08/29/22 11:13 08/29/22 11:13 08/29/22 11:13 Oxygen Flow Rate (L/min) [ 1 AMBULATING with Oxygen #1] Oxygen Flow Rate (L/min) 2 Oxygen Delivery Method Nasal Cannula Weight: 62.6 kg Body Mass Index (BMI) 22.8 Intake & Output: Intake and Output for Last 24 Hours 08/27/22 08/28/22 08/29/22 23:59 23:59 23:59 Intake Total 2250 / 2250 850 / 850 400 / 400 Output Total 575 / 575 Balance 1675 / 1675 850 / 850 400 / 400 Lab / Micro Data Result Diagrams: 08/29/22 04:12 08/29/22 04:12 Labs: Laboratory Results - last 24 hr 08/26/22 10:55: Diff Path Review Reviewed 08/29/22 04:12: WBC 11.6 H, RBC 4.66, Hgb 12.9 L, Hct 40.2, MCV 86.3, MCH 27.7, MCHC 32.1, RDW Std Deviation 45.0 H, RDW Coeff of Sherri 14.3, Plt Count 330, MPV 9.6, Immature Gran % (Auto) 0.700, Neut % (Auto) 93.1 H, Lymph % (Auto) 2.6 L, [place] % (Auto) 3.5, Eos % (Auto) 0.0, Baso % (Auto) 0.1, Absolute Neuts (auto) 10.8 H, Absolute Lymphs (auto) 0.30 L, Nucleated RBC % 0, Differential Comment SCANNED 08/29/22 04:12: Sodium 137, Potassium 3.9, Chloride 100, Carbon Dioxide 31.0, Anion Gap 6, BUN 23 H, Creatinine 0.89, Estim Creat Clear Calc 67.41, Est GFR (MDRD) Af Amer 108, Est GFR (MDRD) Non-Af 90, BUN/Creatinine Ratio 25.9 H, Glu cose 185 H, Calcium 8.7, Total Bilirubin 0.50, AST 15, ALT 24, Alkaline Phosphatase 81, Total Protein 6.4, Albumin 2.7 L, Globulin 3.7, Albumin/Globulin Ratio 0.7 L Micro: Microbiology 08/26/22 10:55 Blood Culture (Wb) - Anticubital Left Blood Culture - Preliminary No growth in 48 hours. 08/26/22 22:00 Sputum, Expectorated/Coughed Gram Stain - Final 08/26/22 22:00 Sputum, Expectorated/Coughed Respiratory Culture - Preliminary Appears to be normal respiratory rakel. Further studies to follow. 08/26/22 11:05 Nasal Secretion SARS-CoV-2 & FLU Antigen (Rapid) - Final Influenzae A 08/26/22 22:00 Urine, Random Streptococcus pneumoniae Antigen (M - Final 08/26/22 22:00 Urine, Random Legionella Antigen - Final 08/26/22 15:50 Interface Orders Respiratory Panel (PCR) - Final Influenza A (Subtype H1) Physical Exam Narrative Physical exam: General: Alert, Oriented x3, Cooperative, on 2 L of oxygen HEENT: Atraumatic Oral: Moist Mucosa Neck: Supple Lungs: Diminished to auscultation, wheezes + Cardiovascular: HS I+II, regular, no murmurs Abdomen: Bowel Sounds Present, Soft, Non Tender Extremities: No edema Skin: No rashes, No breakdown Neurological: Grossly intact Psych/Mental Status: Appropriate Assessment & Plan Assessment/Plan (1) Influenza A: (2) Pneumonia: PLAN: Plan 1. Acute hypoxia secondary to acute influenza A bronchitis/pneumonia Remains on 2 L oxygen, continue with breathing treatments, Encourage use of incentive spirometer. Wean off oxygen for SPO2 more than 94% 2. Acute community-acquired pneumonia, chest x-ray shows infiltrate in the right lung base Continue on IV ceftriaxone and azithromycin 3. Acute influenza A bronchitis, persistent, still with significant wheezes Continue on IV solumedrol, continue breathing treatments 4. Hypertension, controlled, continue amlodipine 5. DVT prophylaxis?on Lovenox subcu Charges/Coding Visit Charges Inpatient E&M: 13610 Subs Hosp L2
[2022-08-29] MEDS: MELATONIN 10 MG TABLET PO (22:20)
[2022-08-30] VITALS (11 sets, daily range): BP systolic 144–150; BP diastolic 84–92; PULSE 73–90; RESP 18–22; TEMP 36.6–36.8; O2SAT 87–97
[2022-08-30] MEDS: hydrOXYzine 10 MG Tablet PO (01:48)
[2022-08-30] MEDS: Ipratropium/Albuterol Sulfate 3 ML AMPUL.NEB INHALATION ×4 (01:59→14:53)
[2022-08-30] MEDS: 0.9% Saline Lock 10 ML Syringe IV ×3 (05:44→13:45)
[2022-08-30] MEDS: Budesonide Respules 0.5 MG/2 ML AMPUL.NEB. INHALATION (06:57)
[2022-08-30] MEDS: guaiFENesin 1,200 MG Tablet 1200 MG PO (09:23)
[2022-08-30] MEDS: amLODIPine 5 MG Tablet PO (09:23)
[2022-08-30] MEDS: Azithromycin 250 MG Tablet 500 MG PO (09:24)
[2022-08-30] MEDS: Enoxaparin 40 MG/0.4 ML Syringe SC (09:24)
--- NOTE | 2022-08-30 14:57 | DCINST_ITS ---
Discharge Instructions Diet Discharge Diet: No restrictions Activity Discharge Activity: Return to Normal Activity Weight Bearing Status: Weight bearing as tolerated Follow Up Care Test Results: Test results from this visit will be discussed in further detail at your follow- up appointment, if applicable. Discharge Plan Admission Admit Date/Time: 08/26/22 12:46 Primary Reason for Your Visit: Acute hypoxia/Acute influenza A bronchitis/pneumonia Attending Provider: Carri Worley Primary Care Provider: Jr Dodge Consulting Providers: Fatemeh Estrella Instructions Additional Instructions / Restrictions: You are being discharged with oxygen. Continue to use your oxygen all the time. Continue to use your incentive spirometer. Continue to remain active and eat healthy.Be careful of going near open flames whilst on oxygen. Complete your prednisone taper as prescribed. Follow-up with your primary care doctor to have your oxygen reevaluated. Discharge Orders/Prescriptions Prescriptions: New Mucus Relief ER 1,200 mg Tablet Extended Release 12hr 1,200 mg PO BID 7 Days Qty: 14 0RF prednisone 10 mg tablet See Taper PO DAILY Qty: 30 0RF Taper: Prednisone Taper 40 mg WITH BREAKFAST for 3 Days and 0 Hour 30 mg WITH BREAKFAST for 3 Days and 0 Hour 20 mg WITH BREAKFAST for 3 Days and 0 Hour 10 mg WITH BREAKFAST for 3 Days and 0 Hour cefdinir 300 mg capsule 300 mg PO BID 3 Days Qty: 6 0RF Continued albuterol sulfate 2.5 MG/3 ML solution for nebulization 2.5 mg inhalation Q4H PRN Qty: 25 0RF Rx Instructions: Use q4 hours and PRN for wheezing amlodipine 5 mg tablet 5 mg PO DAILY Label Comments: Take 1 tablet by mouth once daily. fluticasone furoate-vilanterol [Breo Ellipta] 200-25 mcg/dose blister with device 1 inh INHALATION DAILY Label Comments: INHALE 1 PUFF DAILY WITH GOOD ORAL CARE hydrocodone-acetaminophen 5-325 mg tablet 1 tab PO Q6H PRN (Reason: pain) 3 Days Qty: 10 0RF sulfamethoxazole-trimethoprim [Bactrim DS] 800-160 mg tablet 1 tab PO BID Discontinued hydrocodone-acetaminophen 5-325 mg tablet 1 tab PO Q6H PRN (Reason: pain) 3 Days Qty: 6 0RF prednisone 20 MG tablet 40 mg PO DAILY@0800 prednisone 20 mg tablet 60 mg PO DAILY cephalexin 500 mg capsule 500 mg PO Q6 Referrals / Follow Up: Jr Dodge DO [Primary Care Provider] - In 1 Week Disposition Disposition (needs filled in before D/C Order can be placed): Home, Self Care
--- NOTE | 2022-08-30 15:04 | PCM.DC.SUM ---
Providers Date of Admission: 08/26/22 Date of Discharge: 08/30/22 Primary Care Physician: Dr. Jr Dodge DO Reason For Visit: AECOPD Diagnosis Discharge Diagnosis (1) Influenza A: Status: Acute Code(s): J10.1 - Influenza due to other identified influenza virus with other respiratory manifestations (2) Pneumonia: Status: Acute Code(s): J18.9 - Pneumonia, unspecified organism Plan 1. Acute hypoxia secondary to acute influenza A bronchitis/pneumonia 2. Acute community-acquired pneumonia 3. Hypertension Medications at Discharge Home Medications albuterol sulfate 2.5 mg/3 mL (0.083 %) solution for nebulization 2.5 mg (3 mL) inhalation Q4H PRN #25 vials 10/19/16 amlodipine 5 mg tablet 5 mg PO DAILY 03/06/21 fluticasone furoate 200 mcg-vilanterol 25 mcg/dose inhalation powder (Breo Ellipta) 1 inh inhalation DAILY 03/06/21 hydrocodone-acetaminophen 5-325mg 5mg-325mg 1 tab PO Q6H PRN pain 3 days #10 tabs 05/01/21 sulfamethoxazole 800 mg-trimethoprim 160 mg tablet (Bactrim DS) 1 tab PO BID Check with primary doctor 08/26/22 acyclovir 400 mg tablet 400 mg PO TID 7 days #21 tabs 08/30/22 acyclovir 5 % topical ointment 1 applic topical TID 7 days #30 grams 08/30/22 cefdinir 300 mg capsule 300 mg PO BID 3 days #6 caps 08/30/22 guaifenesin 1,200 mg tablet, extended release 12 hr (Mucus Relief ER) 1,200 mg PO BID 7 days #14 tabs 08/30/22 prednisone 10 mg tablet See Taper PO DAILY #30 tabs 08/30/22 Hospital Course Operations None Procedures None Summary of Care Provided Minutes Spent on Discharge: 35 Hospital Course: 71-year-old male with past medical history of COPD, not on home oxygen, who comes in with wheezes, shortness of breath, and presyncopal symptoms with exertion. Patient was evaluated in the emergency room, his oxygen saturation was in the 70s on room air. He tested positive for acute influenza A. His chest x-ray showed a right-sided infiltrate and he was started on antibiotics for community-acquired pneumonia. He was admitted to the [facility] floor and managed as acute COPD exacerbation with Tamiflu, IV ceftriaxone azithromycin and prednisone initially. Patient had a prolonged hospital stay because he remained very symptomatic with wheezes. His prednisone was switched to IV Solu-Medrol. Patient gradually improved. He was evaluated for home oxygen and qualified. On the day of discharge, patient was seen and examined. He appeared improved. He did have evidence of herpes simplex on his lower lip and left side of the upper lip. He was prescribed acyclovir 400 mg 3 times daily for 5 days as well as acyclovir gel. He was also discharged on prednisone taper He will follow-up with his primary care doctor within 1 week to have his oxygen levels reevaluated. Physical Exam Narrative Physical exam: General: Alert, oriented x3, cooperative HEENT: Atraumatic Oral: Moist Mucosa Neck: Supple Lungs: Diminished to auscultation, wheezes + Cardiovascular: HS I+II, regular, no murmurs Abdomen: Bowel Sounds Present, Soft, Non Tender Extremities: No edema Skin: No rashes, No breakdown Neurological: Grossly intact Psych/Mental Status: Appropriate Weight / BMI Weight Weight: 62.777 kg Body Mass Index (BMI) 22.8 ABG / Lab / Microbiology Data Result Diagrams: 08/29/22 04:12 08/29/22 04:12 Microbiology: Microbiology 08/26/22 22:00 Sputum, Expectorated/Coughed Gram Stain - Final 08/26/22 22:00 Sputum, Expectorated/Coughed Respiratory Culture - Final 08/26/22 10:55 Blood Culture (Wb) - Anticubital Left Blood Culture - Preliminary No growth in 48 hours. 08/26/22 11:05 Nasal Secretion SARS-CoV-2 & FLU Antigen (Rapid) - Final Influenzae A 08/26/22 22:00 Urine, Random Streptococcus pneumoniae Antigen (M - Final 08/26/22 22:00 Urine, Random Legionella Antigen - Final 08/26/22 15:50 Interface Orders Respiratory Panel (PCR) - Final Influenza A (Subtype H1) D/C Instructions Discharge Diet: No restrictions Weight Bearing Status: Weight bearing as tolerated Meaningful Use Info Meaningful Use Diagnoses (Choose all that apply): None applicable Discharge Plan Admission Admit Date/Time: 08/26/22 12:46 Primary Reason for Your Visit: Acute hypoxia/Acute influenza A bronchitis/pneumonia Attending Provider: Carri Worley Primary Care Provider: Jr Dodge Consulting Providers: Fatemeh Estrella Instructions Additional Instructions / Restrictions: You are being discharged with oxygen. Continue to use your oxygen all the time. Continue to use your incentive spirometer. Continue to remain active and eat healthy.Be careful of going near open flames whilst on oxygen. Complete your prednisone taper as prescribed. Follow-up with your primary care doctor to have your oxygen reevaluated. Discharge Orders/Prescriptions Prescriptions: New Mucus Relief ER 1,200 mg Tablet Extended Release 12hr 1,200 mg PO BID 7 Days Qty: 14 0RF prednisone 10 mg tablet See Taper PO DAILY Qty: 30 0RF Taper: Prednisone Taper 40 mg WITH BREAKFAST for 3 Days and 0 Hour 30 mg WITH BREAKFAST for 3 Days and 0 Hour 20 mg WITH BREAKFAST for 3 Days and 0 Hour 10 mg WITH BREAKFAST for 3 Days and 0 Hour cefdinir 300 mg capsule 300 mg PO BID 3 Days Qty: 6 0RF acyclovir 400 mg tablet 400 mg PO TID 7 Days Qty: 21 0RF acyclovir 5 % ointment 1 applic topical TID 7 Days Qty: 30 0RF Rx Instructions: apply to the affected areas on the lips Continued albuterol sulfate 2.5 MG/3 ML solution for nebulization 2.5 mg inhalation Q4H PRN Qty: 25 0RF Rx Instructions: Use q4 hours and PRN for wheezing amlodipine 5 mg tablet 5 mg PO DAILY Label Comments: Take 1 tablet by mouth once daily. fluticasone furoate-vilanterol [Breo Ellipta] 200-25 mcg/dose blister with device 1 inh INHALATION DAILY Label Comments: INHALE 1 PUFF DAILY WITH GOOD ORAL CARE hydrocodone-acetaminophen 5-325 mg tablet 1 tab PO Q6H PRN (Reason: pain) 3 Days Qty: 10 0RF sulfamethoxazole-trimethoprim [Bactrim DS] 800-160 mg tablet 1 tab PO BID Discontinued hydrocodone-acetaminophen 5-325 mg tablet 1 tab PO Q6H PRN (Reason: pain) 3 Days Qty: 6 0RF prednisone 20 MG tablet 40 mg PO DAILY@0800 prednisone 20 mg tablet 60 mg PO DAILY cephalexin 500 mg capsule 500 mg PO Q6 Referrals / Follow Up: Jr Dodge DO [Primary Care Provider] - In 1 Week Disposition Disposition (needs filled in before D/C Order can be placed): Home, Self Care Charges/Coding Visit Charges Inpatient E&M: 99572 Disch Hosp >30min
--- NOTE | 2022-08-30 15:08 | CASEMGMT ---
Addendum entered by Sona Garcia 08/30/22 16:02: Dana at [facility] states pt will now use extension cord for oxygen instead of H tanks. 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 States pt will need to be set up with H tanks at home. She is going to discuss with pt. Original Note: EM CM in to pt room, pt present. Discussed oxygen homegoing instructions and to call [employer] once home in great detail with pt and . Both verbalize understanding. Pt aware that he does need to call [facility] tonight to bring concentrator as the portable tank will not last all night. 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 Pt denies further homegoing needs. Referral sent to [facility] via [facility] at this time.
== END 2022-08-30 18:25 | disposition home or self-care (01) | DRG 194 ==
LOC: ED 12:01 → MS3 13:09
PROVIDERS: Admitting Provider Internal Medicine; Emergency Provider Emergency Medicine; PCP Family Medicine; Visit Provider Internal Medicine
DX: J10.1 Influenza due to other identified influenza virus with other respiratory manifestations (principal); J44.1 Chronic obstructive pulmonary disease with (acute) exacerbation; J44.0 Chronic obstructive pulmonary disease with (acute) lower respiratory infection; J18.9 Pneumonia, unspecified organism; I10 Essential (primary) hypertension; J20.9 Acute bronchitis, unspecified; Z79.52 Long term (current) use of systemic steroids; B00.9 Herpesviral infection, unspecified
CPT/HCPCS: 36415; 71045; 80048; 80053; 83605; 84484; 85025; 87040; 87070; 87205; 87428; 87449; 87633; 93005; 94640; 94667; 94668; 94760; 94762; 99252; 99285; J7050; A4216; G0463; J0696

== ENCOUNTER → 2023-01-22 | Outpatient (CLI) | payer SELFPAY, OTHER ==
--- NOTE | 2023-01-22 06:59 | CT_ITS ---
EXAM: CT CHEST, LUNG CANCER SCREENING WITHOUT INTRAVENOUS CONTRAST CLINICAL INDICATION: LUNG SCREEN, COPD AND EX- SMOKER. SMOKED PIPE AND CIGARETTES 20 YEARS TECHNIQUE: Helically acquired images were obtained of the chest without intravenous contrast using low dose (LDCT) lung cancer screening protocol. This CT exam was performed using one or more of the following dose reduction techniques: automated exposure control, adjustment of the mA and/or kV according to patient size, and/or use of iterative reconstruction technique. COMPARISON: CT Lung Cancer Screening dated 08/11/2021 FINDINGS: LUNGS AND PLEURAL SPACES: Diffuse emphysematous changes of the lungs again seen. Stable fibronodular scarring involving the left upper lobe. New areas of tubulonodular density noted within both lower lobes of the lung which may represent acute and/or chronic inflammatory/infectious change. No mass. No pleural effusion or thickening. No pneumothorax. HEART: Normal. Heart size is normal. No pericardial effusion. No significant coronary artery calcifications. MEDIASTINUM: Normal. Esophagus is unremarkable. No hiatal hernia. No significant mediastinal or hilar lymphadenopathy. THYROID: Normal. No thyroid nodules or calcification. BONES/JOINTS: No suspicious lytic or blastic abnormality. VASCULATURE: Normal. Thoracic aorta is non-dilated. LYMPH NODES: Normal. No enlarged lymph nodes. CT/Low Dose CT Lung Screening IMPRESSION: 1. New tubulonodular bibasilar pulmonary opacities and stable left upper lobe tubulonodular opacity which are likely inflammatory/infectious in nature. 2. Lung-RADS score: 1S - Additional clinically significant or potentially clinically significant findings are described. Recommend continued annual screening with a low-dose CT (LDCT) in 12 months. Electronically Signed: Wojciech Hinton MD at 7:31 EDT ,
== END | disposition home or self-care (01) ==
PROVIDERS: PCP Family Medicine; Referring Provider Internal Medicine Pulmonary Disease; Visit Provider Internal Medicine Pulmonary Disease
DX: Z87.891 Personal history of nicotine dependence (principal)
CPT/HCPCS: 71271

== ENCOUNTER 2023-07-09 06:59 | Emergency (ER) | payer OTHER, SELFPAY ==
[2023-07-09] VITALS (7 sets, daily range): BP systolic 113–157; BP diastolic 60–77; PULSE 57–70; RESP 16–18; TEMP 37.2; O2SAT 94–97; BMI 23.2
--- NOTE | 2023-07-09 07:20 | RAD_ITS ---
STUDY: X-RAY CHEST REASON FOR EXAM: Male, 72 years old. Cough TECHNIQUE: PA and lateral views of the chest. COMPARISON: Comparison is made with prior study dated August 26, 2022. FINDINGS: EKG electrodes are seen. There is hyperinflation of the lungs consistent with chronic obstructive lung disease (COPD). There is no demonstrated pleural abnormality. Normal size heart. Normal mediastinum and frederick. Normal visualized pulmonary arteries. Normal visualized aortic arch and descending thoracic aorta. There are degenerative changes of the visualized thoracic spine. Normal visualized ribs, clavicles, and shoulders. There is no demonstrated abnormality of the visualized soft tissue structures of the upper abdomen. RAD/Chest PA and Lateral IMPRESSION: Hyperinflation and COPD. Electronically Signed: Misbah Briscoe MD at 9:08 EST ,
--- NOTE | 2023-07-09 07:21 | ED.VIS.DYS ---
HPI History of Present Illness Chief Complaint: Shortness of Breath Informant: patient Narrative Narrative: Patient presents with increased wheezing. Patient states he has had breathing problems for 25 or 30 years. He has been diagnosed with COPD that is gotten worse over about 5 years. He is not on oxygen. He does take Trelegy. He also has albuterol. He states the last few days he has been coughing more. He is bringing up a little bit more sputum. But no blood. No chest pain. He has been wheezing more. He states he is not really more short of breath but the wheezing is definitely worse. Patient wants an x-ray. He wants a shot of antibiotics and a shot of steroids. He states the tablet steroids do not work for him. He is immune to them. [facility] Medical History COPD (chronic obstructive pulmonary disease) [place] (hard of hearing) Hypertension Home Medications albuterol sulfate 2.5 mg/3 mL (0.083 %) solution for nebulization 2.5 mg (3 mL) inhalation Q4H PRN #25 vials 10/19/16 [Rx Last Taken Unknown] amlodipine 5 mg tablet 5 mg PO DAILY 03/06/21 [History Last Taken Unknown] fluticasone furoate 200 mcg-vilanterol 25 mcg/dose inhalation powder (Breo Ellipta) 1 inh inhalation DAILY 03/06/21 [History Last Taken Unknown] hydrocodone-acetaminophen 5-325mg 5mg-325mg 1 tab PO Q6H PRN pain 3 days #10 tabs 05/01/21 [Rx Last Taken Unknown] sulfamethoxazole 800 mg-trimethoprim 160 mg tablet (Bactrim DS) 1 tab PO BID Check with primary doctor 08/26/22 [History Last Taken Unknown] acyclovir 400 mg tablet 400 mg PO TID 7 days #21 tabs 08/30/22 [Rx Last Taken Unknown] acyclovir 5 % topical ointment 1 applic topical TID 7 days #30 grams 08/30/22 [Rx Last Taken Unknown] cefdinir 300 mg capsule 300 mg PO BID 3 days #6 caps 08/30/22 [Rx Last Taken Unknown] guaifenesin 1,200 mg tablet, extended release 12 hr (Mucus Relief ER) 1,200 mg PO BID 7 days #14 tabs 08/30/22 [Rx Last Taken Unknown] prednisone 10 mg tablet See Taper PO DAILY #30 tabs 08/30/22 [Rx Last Taken Unknown] doxycycline monohydrate 100 mg capsule 100 mg PO BID #20 CAPSULES 07/09/23 [Rx Last Taken Unknown] Allergy/AdvReac Type Severity Reaction Status Date / Time No Known Allergies Allergy Verified 07/09/23 07:00 Surgical History History of replacement of both shoulder joints Social History Smoking Status: Never smoker ROS ROS ED ROS Narrative A complete review of systems was performed and is negative except as documented in the history of present illness. Some specific details below. Constitutional: No recent fevers or chills. No malaise. Patient states he does not feel sick at all. EYE: No discharge, visual complaints, or pain. ENT: No difficulty swallowing. No swelling. No pain. No reflux symptoms. CV: No chest pain or palpitations. Not syncopal or presyncopal. Respiratory: See history of present illness. GI: No abdominal pain. No nausea vomiting diarrhea. No blood in stool. He is eating fine with no nausea vomiting or decreased appetite. : No frequency dysuria or hematuria. Musculoskeletal: No recent trauma. No pains. No swelling. Skin: No rash. Nondiaphoretic. Neuro: No weakness or numbness. Endocrine: No polyuria or polydipsia. EXAM Physical Exam Narrative Exam Narrative: CONSTITUTIONAL: Patient is nontoxic in appearance. The patient looks comfortable. Work of breathing looks normal. He carries on a normal conversation. However, you can hear wheezes just in the room. HEENT: No notable trauma. Mucous membranes moist. No sinus tenderness. No indication of pain with swallowing. EYES: No conjunctival injection. No proptosis. No pallor. NECK:No JVD. No stridor. CARDIOVASCULAR: Regular rate. Regular rhythm. No notable murmur. No JVD. RESPIRATORY: No respiratory distress. Breathing is unlabored. Yet the patient does have diffuse wheezing. No rhonchi. No real coughing while I am in the room. Saturations are normal at 97% on room air showing no hypoxia. GASTROINTESTINAL: Not distended. Bowel sounds are normal. No tenderness. No guarding. No rebound. No palpable mass. No bruit is heard. GENITOURINARY: No tenderness over the bladder. No CVA tenderness. MUSCULOSKELETAL: Atraumatic. No peripheral edema. No cord. No tenderness along the deep venous system. No asymmetry. No distended veins. NEUROLOGICAL: Patient is alert and appropriate. No focal deficit noted. SKIN: No noted rashes. No diaphoresis. PSYCHIATRIC: Patient is calm. Mood is appropriate. Const Vital Signs: 07/09/23 07:01 07/09/23 07:08 07/09/23 07:09 Temperature 98.9 F Temperature Source Temporal Pulse Rate 65 59 L Respiratory Rate 16 17 Respiratory Effort Short of Breath Labored Respiratory Depth Normal Respiratory Pattern Normal Blood Pressure 157/77 H Blood Pressure Mean 103 Pulse Ox 94 97 Oxygen Delivery Method Room Air Room Air Room Air 07/09/23 07:37 Temperature Temperature Source Pulse Rate 57 L Respiratory Rate 16 Respiratory Effort Respiratory Depth Respiratory Pattern Normal Blood Pressure Blood Pressure Mean Pulse Ox Oxygen Delivery Method MDM MDM MDM Narrative Medical decision making narrative: Patient is very specific about what he wants and does not want. He does not want oral steroids because he is immune to them. We agreed to give him a shot of Kenalog. He would also like a shot of antibiotics. I explained that we will use antibiotic for adjunctive therapy but there is not a benefit to giving an initial shot of antibiotics we will have to continue that with oral anyway. He did agree to get a breathing treatment. He did agree to get an x-ray. Does not want blood work at this time. My independent interpretation the patient's two-view chest x-ray shows flattening diaphragms and COPD changes but no sign of acute infiltrate. Final reading is pending now. Final reading did come back as hyperinflation and COPD. I went back to check the patient. He is talking with people in the room. He is comfortable. Not short of breath. Saturations are running 95-97% on room air on the monitor. I no longer hear wheezing in the room. When I listen to his lungs there is still a little bit of end expiratory wheeze. But he is moving much better oxygen. He states he feels back to baseline. He feels the steroids are really kicked in and helped him a lot. We discussed treatment. I explained that the he does have a change in the amount of sputum so we will initiate antibiotics even though his x-ray does not show pneumonia. He states he needs a shot of antibiotics. I explained that this does not really alter his outcome. But he does not feel he is getting treatment and cannot leave until he gets a shot of antibiotics therefore I will give him his first dose of doxycycline through an IV. He does not want Levaquin because he thinks that may have caused a problem before. We did discuss that this absorbs at about 94% and is equivalent to an IV dose but he is not sure about that. I explained that we will help the patient we will work within his requirements. He required IM steroids not orally. He requires an injection of antibiotics. But he is doing well and I think he is appropriate to go. Radiography Diagnostic Testing: Clinical Impression(s) from Imaging Studies Chest X-Ray 07/09/23 07:20 IMPRESSION: Hyperinflation and COPD. Electronically Signed: Misbah Briscoe MD at 9:08 EST , EKG Initial EKG: Comments: My independent interpretation of the patient's EKG shows a normal sinus rhythm. Overall rate of 60. No ectopy. No acute ST elevation or depression. NC interval, QRS duration and QTc normal Discharge Plan Triage Chief Complaint: Shortness of Breath ED Provider: Jaleel Saul Dx/Rx/DC Orders Clinical Impression: COPD exacerbation Instructions: ED COPD Flare Prescriptions: New doxycycline monohydrate 100 mg capsule 100 mg PO BID Qty: 20 0RF No Action albuterol sulfate 2.5 MG/3 ML solution for nebulization 2.5 mg inhalation Q4H PRN Qty: 25 0RF Rx Instructions: Use q4 hours and PRN for wheezing amlodipine 5 mg tablet 5 mg PO DAILY Patient Comments: Take 1 tablet by mouth once daily. fluticasone furoate-vilanterol [Breo Ellipta] 200-25 mcg/dose blister with device 1 inh INHALATION DAILY Patient Comments: INHALE 1 PUFF DAILY WITH GOOD ORAL CARE hydrocodone-acetaminophen 5-325 mg tablet 1 tab PO Q6H PRN (Reason: pain) 3 Days Qty: 10 0RF sulfamethoxazole-trimethoprim [Bactrim DS] 800-160 mg tablet 1 tab PO BID Mucus Relief ER 1,200 mg Tablet Extended Release 12hr 1,200 mg PO BID 7 Days Qty: 14 0RF prednisone 10 mg tablet See Taper PO DAILY Qty: 30 0RF Taper: Prednisone Taper 40 mg WITH BREAKFAST for 3 Days and 0 Hour 30 mg WITH BREAKFAST for 3 Days and 0 Hour 20 mg WITH BREAKFAST for 3 Days and 0 Hour 10 mg WITH BREAKFAST for 3 Days and 0 Hour cefdinir 300 mg capsule 300 mg PO BID 3 Days Qty: 6 0RF acyclovir 400 mg tablet 400 mg PO TID 7 Days Qty: 21 0RF acyclovir 5 % ointment 1 applic topical TID 7 Days Qty: 30 0RF Rx Instructions: apply to the affected areas on the lips Primary Care Provider: Jr Dodge Referrals: Jr Dodge, [Primary Care Provider] - 3-5 Days if not improving Disposition Disposition: Home, Self Care
[2023-07-09] MEDS: Albuterol 2.5 MG/3 ML VIAL.NEB. INHALATION ×2 (07:34→09:30)
[2023-07-09] MEDS: Ipratropium/Albuterol Sulfate 3 ML AMPUL.NEB INHALATION (07:34)
--- NOTE | 2023-07-09 07:43 | EKG12_ITS ---
Test Reason : SOB Blood Pressure : / mmHG Vent. Rate : 060 BPM Atrial Rate : 060 BPM P-R Int : 172 ms QRS Dur : 080 ms QT Int : 414 ms P-R-T Axes : 079 068 063 degrees QTc Int : 414 ms Normal sinus rhythm Normal ECG Confirmed by MIGUELINA JOHNS, RUSTY ([id number]), material expeditor SEBASTIEN ROMERO ([id number]) on 07/17/2023 10:33:38 AM Referred By: PL Confirmed By:RUSTY MCINTYRE MD
[2023-07-09] MEDS: Triamcinolone Acetonide 40 MG/ML Vial 80 MG IM (08:13)
[2023-07-09] MEDS: Doxycycline 100 MG in Dextrose 5%-Water (250mL Bag) 250 ML 250 MG IV (09:58)
== END 2023-07-09 11:20 | disposition home or self-care (01) ==
PROVIDERS: Emergency Provider Emergency Medicine; PCP Family Medicine; Visit Provider Emergency Medicine
DX: J44.1 Chronic obstructive pulmonary disease with (acute) exacerbation (principal); I10 Essential (primary) hypertension; Z79.899 Other long term (current) drug therapy; Z79.51 Long term (current) use of inhaled steroids; Z96.619 Presence of unspecified artificial shoulder joint
CPT/HCPCS: 71046; 93005; 94640; 96365; 96372; 99283; A4216

== ENCOUNTER 2023-10-29 06:46 | Emergency (ER) | payer OTHER, SELFPAY ==
[2023-10-29] VITALS (8 sets, daily range): BP systolic 115–142; BP diastolic 76–84; PULSE 70–87; RESP 16–82; TEMP 36.7–37.1; O2SAT 93–98; BMI 21.9
--- NOTE | 2023-10-29 07:14 | EKG12_ITS ---
Test Reason : SOB Blood Pressure : / mmHG Vent. Rate : 072 BPM Atrial Rate : 072 BPM P-R Int : 158 ms QRS Dur : 070 ms QT Int : 372 ms P-R-T Axes : 000 140 145 degrees QTc Int : 407 ms Normal sinus rhythm with sinus arrhythmia Suspect limb lead reversal Nonspecific ST and T wave abnormality Abnormal ECG Confirmed by Wilder Burrell ([id number]), visual effects editor NATHALIA DEL ROSARIO ([id number]) on 10/31/2023 2:41:10 PM Referred By: IKER Confirmed By:Wilder Burrell
--- NOTE | 2023-10-29 07:15 | ED.VIS.DYS ---
HPI History of Present Illness Chief Complaint: Shortness of Breath Narrative Narrative: 72-year-old male past medical history of COPD, presents with 1 week of increasing shortness of breath and dyspnea on exertion. While he denies any fever or chills, no bodyaches, he states he has been coughing up large amount of green mucus. He uses his inhaler every morning. 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 No recent steroid use. No leg swelling. He states he is here because he is he wants a chest x-ray to see if he has pneumonia. PFSH PFSH Medical History COPD (chronic obstructive pulmonary disease) [place] (hard of hearing) Hypertension Home Medications albuterol sulfate 2.5 mg/3 mL (0.083 %) solution for nebulization 2.5 mg (3 mL) inhalation Q4H PRN #25 vials 10/19/16 [Rx Last Taken Unknown] amlodipine 5 mg tablet 5 mg PO DAILY 03/06/21 [History Last Taken Unknown] fluticasone furoate 200 mcg-vilanterol 25 mcg/dose inhalation powder (Breo Ellipta) 1 inh inhalation DAILY 03/06/21 [History Last Taken Unknown] prednisone 20 mg tablet 40 mg (2 x 20 mg) PO DAILY #14 tabs 10/29/23 [Rx Last Taken Unknown] prednisone 20 mg tablet 40 mg (2 x 20 mg) PO DAILY #14 tabs 10/29/23 [Rx Last Taken Unknown] Allergy/AdvReac Type Severity Reaction Status Date / Time No Known Allergies Allergy Verified 10/29/23 06:47 Surgical History History of replacement of both shoulder joints Social History Smoking Status: Never smoker ROS ROS ED ROS Narrative Constitutional: No fever, no chills. HEENT: No sore throat. No neck pain. No loss of vision. No rhinorrhea. Cardiovascular: No chest pain. No palpitations. No pedal edema. Respiratory: Positive productive cough, increasing dyspnea on exertion and shortness of breath. Abdominal: No abdominal pain. No nausea. No vomiting. Genitourinary: No dysuria. No hematuria. Musculoskeletal: No myalgias. No arthralgias. Neurologic: No headaches. No dizziness. No lightheadedness. Skin: No rash. No change in color. Psychiatric: No depression. No anxiety. EXAM Physical Exam Narrative Exam Narrative: Afebrile. Vital signs noted. HEENT: Normocephalic. Atraumatic. PERRL, EOMI. Neck soft and supple. No point tenderness or step off. Cardiovascular: Regular rate and rhythm. No murmurs, rubs, or gallops appreciated. Respiratory: No tachypnea. Decreased breath sounds bilateral bases. Occasional expiratory wheeze. Moving a fair amount of air. Gastrointestinal: Abdomen soft, nontender, with normoactive bowel sounds. No rebound or guarding. Neurological: Awake. Alert. Nonfocal, nonlateralizing. Skin: No rash. Normal color. No pallor. Musculoskeletal: No pedal edema. Full range of motion extremities. Const Vital Signs: 10/29/23 06:51 10/29/23 06:53 10/29/23 07:26 Temperature 98.1 F 98.1 F Temperature Source Temporal Temporal Pulse Rate 85 86 Respiratory Rate 19 H 19 H Respiratory Effort Short of Breath Respiratory Depth Shallow Respiratory Pattern Normal Blood Pressure 136/76 H 136/76 H Blood Pressure Mean 96 96 Pulse Ox 96 96 Oxygen Delivery Method Room Air 10/29/23 07:30 10/29/23 07:37 10/29/23 07:53 Temperature 98.3 F Temperature Source Oral Pulse Rate 79 70 87 Respiratory Rate 18 18 82 H Respiratory Effort Respiratory Depth Respiratory Pattern Normal Blood Pressure 122/84 H 142/81 H Blood Pressure Mean 96 101 Pulse Ox 95 93 Oxygen Delivery Method Room Air Room Air 10/29/23 09:32 10/29/23 09:33 Temperature 98.8 F 98.1 F Temperature Source Temporal Pulse Rate 71 73 Respiratory Rate 16 23 H Respiratory Effort Respiratory Depth Respiratory Pattern Blood Pressure 115/79 115/79 Blood Pressure Mean 91 91 Pulse Ox 98 93 Oxygen Delivery Method Room Air MDM MDM MDM Narrative Medical decision making narrative: Concern is for pneumonia versus exacerbation of chronic bronchitis versus COPD exacerbation. I have low suspicion for acute coronary syndrome because the history and physical does not support this. His pulse ox is 96% on room air. He will be given a DuoNeb aerosolized treatment and prednisone orally. I reviewed his laboratory work and he has normal white count of 10.6, hemoglobin normal at 12.6 slightly low, hematocrit 39.0, platelet count normal at 282. Electrolyte panel is significant for an anion gap low at 3 with a normal BUN of 16 and creatinine normal at 0.86, glucose elevated at 126 but he has a normal anion gap/low at 3. High-sensitivity troponin is 8. I do not feel he requires serial enzymes. He has been having shortness of breath for at least a week. BNP is normal at 39 so I have low suspicion for congestive heart failure as he does not have that diagnosis as well. Chest x-ray in 2 views interpreted by myself independently shows hyperinflation but no evidence of pneumonia. I do not feel antibiotics are indicated. I reviewed the radiology report which confirms my independent interpretation. Upon repeat examination after aerosolized treatment and loading dose of prednisone, states he feels mildly improved. 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 However, I wrote him for a prednisone burst for the next 7 days of 40 mg. I do not feel he requires observation or admission at this time as he is not hypoxic. I feel he can be discharged to follow-up with pulmonology. Return instructions to the emergency department were reviewed. Disposition is discharged home in stable condition. History & Record Review Discussion w/independent historian: Patient Additional record(s) reviewed:: Prior ED visit Lab Data Attestation: I reviewed the patient's lab results. Labs: Laboratory Results - last 24 hr 10/29/23 07:25 WBC 10.6 RBC 4.50 L Hgb 12.6 L Hct 39.0 L MCV 86.7 MCH 28.0 MCHC 32.3 RDW Std Deviation 44.2 H RDW Coeff of Sherri 13.8 Plt Count 282 MPV 9.1 Immature Gran % (Auto) 0.500 Neut % (Auto) 76.8 H Lymph % (Auto) 8.0 L [place] % (Auto) 12.1 H Eos % (Auto) 2.2 Baso % (Auto) 0.4 Absolute Neuts (auto) 8.1 H Absolute Lymphs (auto) 0.85 Nucleated RBC % 0 Sodium 139 Potassium 3.8 Chloride 107 Carbon Dioxide 29.0 Anion Gap 3 L BUN 16 Creatinine 0.86 Estim Creat Clear Calc 67.54 Est GFR (MDRD) Af Amer 112 Est GFR (MDRD) Non-Af 92 BUN/Creatinine Ratio 18.6 Glucose 126 H Calcium 9.3 Troponin I High Sens 8 B-Natriuretic Peptide 39.3 Radiography Diagnostic Testing: Clinical Impression(s) from Imaging Studies Chest X-Ray 10/29/23 08:02 IMPRESSION: 1. COPD changes. 2. No focal infiltrate is seen. Electronically Signed: Paolo Rosenbaum MD at 8:45 EST , Discharge Plan Triage Chief Complaint: Shortness of Breath ED Provider: Dean Salas Dx/Rx/DC Orders Clinical Impression: Dyspnea, COPD (chronic obstructive pulmonary disease) Instructions: ED COPD Flare, ED Dyspnea Prescriptions: New prednisone 20 mg tablet 40 mg PO DAILY Qty: 14 0RF prednisone 20 mg tablet 40 mg PO DAILY Qty: 14 0RF No Action albuterol sulfate 2.5 MG/3 ML solution for nebulization 2.5 mg inhalation Q4H PRN Qty: 25 0RF Rx Instructions: Use q4 hours and PRN for wheezing amlodipine 5 mg tablet 5 mg PO DAILY Patient Comments: Take 1 tablet by mouth once daily. fluticasone furoate-vilanterol [Breo Ellipta] 200-25 mcg/dose blister with device 1 inh INHALATION DAILY Patient Comments: INHALE 1 PUFF DAILY WITH GOOD ORAL CARE Primary Care Provider: Jr Dodge Referrals: Jr Dodge DO [Primary Care Provider] - Activity Restrictions/Additional Instructions: Follow-up with your montessori toddler teacher in the next 3 to 5 days. Continue your albuterol. Start your steroid burst tomorrow as you have been given a loading dose in the emergency department today. Disposition Disposition: Home, Self Care Discharge Date/Time: 10/29/23 10:03
[2023-10-29] MEDS: predniSONE 20 MG Tablet 60 MG PO (07:22)
[2023-10-29 07:36] LABS: Absolute Lymphocyte Count 0.85 X10^3/uL (0.83-4.51); Absolute Neutrophil Count 8.1 X10^3/uL (2.0-7.7); Basophil# 0.04 X10^3/uL; Basophil% 0.4 % (0-1); Eosinophil# 0.23 X10^3/uL; Eosinophils% 2.2 % (0-5); Hemoglobin 12.6 g/dL (13.0-16.5); Lymphocyte # 0.85 X10^3/ul (0.83-4.51); Mean Corp Hgb Conc 32.3 g/dL (32-36); Mean Corpuscular Volume 86.7 fL (80-94); Mean Platelet Vol. 9.1 fl (6.2-12.0); Monocyte# 1.28 X10^3/uL; Monocyte% 12.1 % (0-10); NRBC Flagged by Analyzer 0 % (0-5); Neutrophil # 8.14 X10^3/uL (2.7-7.7); Neutrophil % 76.8 % (47-70); Platelet Count 282 K/mm3 (150-450); RBC Distribution Width CV 13.8 % (11.6-14.6); RBC Distribution Width SD 44.2 fl (35.1-43.9); White Blood Count 10.6 K/mm3 (4.4-11.0)
[2023-10-29] MEDS: Ipratropium/Albuterol Sulfate 3 ML AMPUL.NEB INHALATION (07:36)
[2023-10-29 07:56] LABS: Anion Gap 3 (5-15); BUN 16 mg/dL (7-18); BUN/Creat Ratio 18.6 RATIO (10-20); Calcium,Total 9.3 mg/dL (8.5-10.1); Chloride 107 mmol/L (98-107); Creatinine, Serum 0.86 mg/dL (0.70-1.30); EST Glomerular Filtration Rate 92 mL/min (>60); Est Glom Filt Rate - Afr Amer 112 mL/min (>60); Estimated Creatinine Clearance 67.54 ml/min; Glucose 126 mg/dL (74-106); Potassium 3.8 mmol/L (3.5-5.1); Sodium Level 139 mmol/L (136-145); Troponin-I HS 8 pg/mL (3.0-78.0)
--- NOTE | 2023-10-29 08:02 | RAD_ITS ---
INDICATION: shortness of breath EXAMINATION/TECHNIQUE: X-RAY - XR Chest 2 Views COMPARISON: Prior study dated: 07/09/2023. FINDINGS: LINES/DEVICES: None. LUNGS: The lungs again are hyperinflated with COPD changes. No new infiltrate is seen. No evidence of pleural effusions. MEDIASTINUM AND CARDIOVASCULAR STRUCTURES: Cardiac silhouette not enlarged. Central airways and mediastinal contour are unremarkable. BONES AND SOFT TISSUES: Degenerative changes in the thoracic spine and shoulders. RAD/Chest PA and Lateral IMPRESSION: 1. COPD changes. 2. No focal infiltrate is seen. Electronically Signed: Paolo Rosenbaum MD at 8:45 EST ,
[2023-10-29 08:04] LABS: BNP,B-Type NATRIURETIC PEPTIDE 39.3 pg/mL (0-100)
== END 2023-10-29 10:03 | disposition home or self-care (01) ==
PROVIDERS: Emergency Provider Emergency Medicine; PCP Family Medicine; Visit Provider Emergency Medicine
DX: R06.02 Shortness of breath (principal); J44.9 Chronic obstructive pulmonary disease, unspecified; I10 Essential (primary) hypertension; Z79.899 Other long term (current) drug therapy; Z79.51 Long term (current) use of inhaled steroids; Z96.611 Presence of right artificial shoulder joint; Z96.612 Presence of left artificial shoulder joint
CPT/HCPCS: 71046; 80048; 83880; 84484; 85025; 93005; 94640; 99283; A4216

== ENCOUNTER 2023-12-11 09:02 | Emergency (ER) | payer OTHER, SELFPAY ==
[2023-12-11 09:04] VITALS: BP 135/81; PULSE 86; RESP 20; TEMP 36.4; O2SAT 93; BMI 21.9
--- NOTE | 2023-12-11 09:30 | EDS_ITS ---
HPI History of Present Illness Chief Complaint: Shortness of Breath Informant: patient and spouse/S.O. Onset/Context/Timing Onset: Days Context: gradual Timing: Continuous Quality: Positive for Dyspnea on exertion and Wheezing Current Severity: Moderate Maximum Severity: Moderate Worsened by: Exertion and Coughing Relieved by: Nothing Associated Symptoms cough, clear sputum and green sputum; Negative for fever or sore throat Chest Pain: Positive for None Narrative Narrative: 72-year-old Judaism male history of COPD and hypertension. States has been short of breath for about a week started last Saturday. Increased wheezing. Clear and green sputum. No fever. Chronic cough. No vomiting or diarrhea. No hemoptysis. No leg swelling. Currently not on steroids. And is not on home oxygen. No history of DVT or PE. Denies chest pain except with coughing. PE Risk Factors: Negative for Cancer, OCP + Smoking + > 35, Prior DVT or PE, Recent immobilization, Recent surgery or Recent travel Prior similar symptoms: Yes Recent Illness/Hospitalization: No PFSH PFSH Medical History COPD (chronic obstructive pulmonary disease) [place] (hard of hearing) Hypertension Home Medications albuterol sulfate 2.5 mg/3 mL (0.083 %) solution for nebulization 2.5 mg (3 mL) inhalation Q4H PRN #25 vials 10/19/16 [Rx Last Taken Unknown] amlodipine 5 mg tablet 5 mg PO DAILY 03/06/21 [History Last Taken Unknown] fluticasone furoate 200 mcg-vilanterol 25 mcg/dose inhalation powder (Breo Ellipta) 1 inh inhalation DAILY 03/06/21 [History Last Taken Unknown] prednisone 20 mg tablet 40 mg (2 x 20 mg) PO DAILY #14 tabs 10/29/23 [Rx Last Taken Unknown] prednisone 20 mg tablet 40 mg (2 x 20 mg) PO DAILY #14 tabs 10/29/23 [Rx Last Taken Unknown] prednisone 20 mg tablet 40 mg (2 x 20 mg) PO DAILY 7 days #14 tabs 12/11/23 [Rx Last Taken Unknown] Allergy/AdvReac Type Severity Reaction Status Date / Time No Known Allergies Allergy Verified 12/11/23 09:04 Surgical History History of replacement of both shoulder joints Social History Smoking Status: Never smoker ROS ROS ED ROS Narrative Cough. Clearing green sputum. No chest pain. No fever. Review of Systems ROS Unobtainable: Denies due to encephalopathy Constitutional Constitutional ED: Denies chills or fever(s) Eyes Eyes: Denies blurry vision ENT ENT ED: Denies ear pain Cardiovascular Cardiovascular: Denies chest pain or palpitations Respiratory/Chest Respiratory/Chest: Reports cough, dyspnea, dyspnea on exertion and sputum Gastrointestinal Gastrointestinal: Denies abdominal pain, constipation, diarrhea, melena, nausea or vomiting Genitourinary Genitourinary ED: Denies dysuria or hematuria Musculoskeletal Musculoskeletal: Denies arthralgias Integumentary Denies abscess Neurologic Neurologic: Denies headache(s) Psychiatric Psychiatric: Denies anxiety or depression Endocrine Endocrinology: Denies cold intolerance Hematologic/Lymphatic Hematologic/Lymphatic: Denies easy bleeding, easy bruising or lymphadenopathy Allergic/Immunologic Allergic/Immunologic ED: Denies mouth swelling, tongue swelling or urticaria EXAM Physical Exam Narrative Exam Narrative: 70-year-old male vital signs stable he is afebrile. His pulse ox 93% on room air. HEENT exam unremarkable. No facial droop. Pupils round reactive light. Moist mucous membranes. Limited dentition. Neck nontender no JVD. No lymphadenopathy. Lungs prolonged expiratory phase. Expiratory wheezing throughout bilaterally. No rales or rhonchi. Heart regular rhythm rate about 85 no murmur. Chest wall and ribs nontender. Abdomen soft nontender. No peritoneal signs. No distention. Moving all 4 extremities. Nontender no edema. Neurologically is awake and alert answering questions following commands. No focal motor deficits. Normal tree deadener strength. Const Vital Signs: 12/11/23 09:04 12/11/23 09:34 12/11/23 11:06 Temperature 97.6 F L Temperature Source Temporal Pulse Rate 86 66 Respiratory Rate 20 H 17 Respiratory Pattern Normal Blood Pressure 135/81 H Blood Pressure Mean 99 Pulse Ox 93 Oxygen Delivery Method Room Air Room Air 12/11/23 11:06 Temperature Temperature Source Pulse Rate 89 Respiratory Rate 18 Respiratory Pattern Blood Pressure 132/76 H Blood Pressure Mean 94 Pulse Ox 94 Oxygen Delivery Method Room Air Positive well nourished and well developed; Negative for obese, cachectic, contractures or unkempt General Appearance ED: well developed and NAD; Negative for unkempt, cachectic, contractures or pallor Nutritional Appearance: Negative for cachectic or obese HEENT Reports moist mucous membranes; Denies dry mucous membranes or other atraumatic; Negative for trauma, tenderness or other Mouth ED: No dry mucous membranes Mouth: No dry mucous membranes Eyes PERRL and EOMs intact bilaterally General Eye ED: Negative for pale conjunctiva, scleral icterus or other Neck no lymphadenopathy, supple, no meningeal signs and no JVD General: Negative for tenderness Lymph Lymphatic: Negative for other Chest Wall Chest: Negative for other Resp No normal respiratory effort and No clear to auscultation bilaterally Auscultation: wheezes; Negative for rales or rhonchi Cardio regular rate, regular rhythm, S1 normal heart sound, S2 normal heart sound and n o murmurs Rate: Negative for bradycardia, tachycardic or other Rhythm: Negative for abnormal rhythm GI non-tender, non-distended and no masses Inspection: Negative for other Auscultation: normoactive bowel sounds Palpation: soft; Negative for tender, guarding or rebound tenderness present Back/Spine no CVA tenderness and normal to inspection General Back: Negative for CVA tenderness or tenderness Extremity normal to inspection General Extremety ED: Negative for edema or tenderness General Extremity: Negative for edema Neuro oriented x3 and CN's II-XII intact bilaterally Sensorium / Orientation: alert, oriented to person, oriented to place and oriented to time; Negative for orientation impaired, confused, lethargic or stuporous Motor Exam: strength 5/5 throughout Psych mental status grossly normal Appearance: Negative for unkempt Attitude: No agitated and No other Mood & Affect: Negative for depressed, anxious or tearful Thought Process: normal thought process Skin no wounds and skin turgor normal General Skin Exam: Negative for jaundice or pallor Lesions: no lesions Rashes: no rashes Trauma: Negative for abrasion, laceration or puncture MDM MDM MDM Narrative Medical decision making narrative: 72-year-old [place] male known history of COPD with wheezing, shortness of breath and green sputum. Be treated with DuoNeb and albuterol aerosols, IV Solu-Medrol and have a cardiac/respiratory workup. I do think this is a COPD flare. Rule out pneumonia versus other etiologies. He has no history of DVT or PE. Repeat exam patient is doing much better at 11:20 AM. He is much better air movement. His wheezing is resolved. I went over his test results with both he and his . He actually has very good blood work. He is flu a positive which I think is the cause of his wheezing and shortness of breath along with exacerbation of his underlying COPD. He is comfortable being discharged home. I will write him for steroids he may or may not take them because he does not like oral prednisone. He had already gotten an IV injection of Solu-Medrol. History & Record Review Discussion w/independent historian: Patient Additional record(s) reviewed:: Prior inpatient record, Prior outpatient record, Prior ED visit and Prior labs Lab Data Attestation: I reviewed the patient's lab results. Lab results narrative: CBC normal. White count of 6. H&H 13 and 40. Platelets 191. Electrolytes 3. Normal BUN and creatinine. Glucose 100. Troponin 10. Respiratory study showed flu a positive. Chest x-ray no acute process. Labs: Laboratory Results - last 24 hr 12/11/23 09:42 WBC 6.1 RBC 4.61 Hgb 13.2 Hct 40.3 MCV 87.4 MCH 28.6 MCHC 32.8 RDW Std Deviation 46.9 H RDW Coeff of Sherri 14.6 Plt Count 191 MPV 9.4 Immature Gran % (Auto) 0.200 Neut % (Auto) 67.2 Lymph % (Auto) 17.2 L [place] % (Auto) 12.3 H Eos % (Auto) 2.6 Baso % (Auto) 0.5 Absolute Neuts (auto) 4.1 Absolute Lymphs (auto) 1.05 Nucleated RBC % 0 Sodium 138 Potassium 4.0 Chloride 105 Carbon Dioxide 30.0 Anion Gap 3 L BUN 16 Creatinine 0.87 Estim Creat Clear Calc 66.92 Est GFR (MDRD) Af Amer 110 Est GFR (MDRD) Non-Af 91 BUN/Creatinine Ratio 18.3 Glucose 100 Calcium 8.7 Troponin I High Sens 10 Radiography Chest X-Ray - ED: Read by ED Physician, Read by Radiologist, Heart, Lungs, Mediastinum, Bony Structures, No Acute Disease and Chronic Changes Diagnostic Testing: Clinical Impression(s) from Imaging Studies Chest X-Ray 12/11/23 09:55 IMPRESSION: Hyperinflation. The lungs are clear. Calcified bilateral hilar lymph nodes. Electronically Signed: Misbah Briscoe MD at 10:13 EDT , Chest x-ray, portable, single view shows a normal cardiac silhouette. Normal lung martinez. No infiltrate. No pneumonia. No effusions. Chronic changes consistent with COPD. No pneumothorax. Interpreted both by myself and the radiologist. Rhythm Strip Rhythm Strip: Sinus Rhythm Rate: 71 Ectopy: None EKG Initial EKG: Attestation: I personally reviewed and interpreted this EKG as follows: Interpretation: No Acute Injury Pattern Comments: Normal sinus rhythm rate of 71 no acute signs of IA or ischemia. No dysrhythmia. Discharge Plan Triage Chief Complaint: Shortness of Breath ED Provider: Robin Montenegro Dx/Rx/DC Orders Clinical Impression: Influenza A, History of hypertension, COPD exacerbation Instructions: ED COPD Flare Prescriptions: New prednisone 20 mg tablet 40 mg PO DAILY 7 Days Qty: 14 0RF No Action albuterol sulfate 2.5 MG/3 ML solution for nebulization 2.5 mg inhalation Q4H PRN Qty: 25 0RF Rx Instructions: Use q4 hours and PRN for wheezing amlodipine 5 mg tablet 5 mg PO DAILY Patient Comments: Take 1 tablet by mouth once daily. fluticasone furoate-vilanterol [Breo Ellipta] 200-25 mcg/dose blister with device 1 inh INHALATION DAILY Patient Comments: INHALE 1 PUFF DAILY WITH GOOD ORAL CARE prednisone 20 mg tablet 40 mg PO DAILY Qty: 14 0RF prednisone 20 mg tablet 40 mg PO DAILY Qty: 14 0RF Primary Care Provider: Jr Dodge Referrals: Jr Dodge, [Primary Care Provider] - 1 Week if not improving Activity Restrictions/Additional Instructions: Prednisone 40 mg a day for 1 week. Follow-up with your primary care physician or see a lung specialist a special delivery messenger Dr. Shorty Louis. Use inhaler as needed and if you have a nebulizer at home. You have influenza A and it caused an exacerbation of your underlying COPD. This should progressively get better. Disposition Disposition: Home, Self Care
[2023-12-11] MEDS: Albuterol 2.5 MG/3 ML VIAL.NEB. INHALATION (09:32)
[2023-12-11] MEDS: Ipratropium/Albuterol Sulfate 3 ML AMPUL.NEB INHALATION ×2 (09:33→10:50)
[2023-12-11 09:34] VITALS: PULSE 66; RESP 17
[2023-12-11 09:50] LABS: Absolute Lymphocyte Count 1.05 X10^3/uL (0.83-4.51); Absolute Neutrophil Count 4.1 X10^3/uL (2.0-7.7); Basophil# 0.03 X10^3/uL; Basophil% 0.5 % (0-1); Eosinophil# 0.16 X10^3/uL; Eosinophils% 2.6 % (0-5); Hematocrit 40.3 % (40-54); Hemoglobin 13.2 g/dL (13.0-16.5); Lymphocyte # 1.05 X10^3/ul (0.83-4.51); Lymphocyte % 17.2 % (19-41); Mean Corp Hgb Conc 32.8 g/dL (32-36); Mean Corpuscular Hgb 28.6 pg (27.0-32.0); Mean Corpuscular Volume 87.4 fL (80-94); Mean Platelet Vol. 9.4 fl (6.2-12.0); Monocyte# 0.75 X10^3/uL; Monocyte% 12.3 % (0-10); NRBC Flagged by Analyzer 0 % (0-5); Neutrophil # 4.12 X10^3/uL (2.7-7.7); Neutrophil % 67.2 % (47-70); Platelet Count 191 K/mm3 (150-450); RBC Distribution Width CV 14.6 % (11.6-14.6); RBC Distribution Width SD 46.9 fl (35.1-43.9); Red Blood Count 4.61 M/mm3 (4.6-6.2); White Blood Count 6.1 K/mm3 (4.4-11.0)
--- NOTE | 2023-12-11 09:55 | RAD_ITS ---
STUDY: X-RAY CHEST REASON FOR EXAM: Male, 72 years old. Dyspnea TECHNIQUE: Single AP portable view of the chest. COMPARISON: Comparison is made with prior study dated October 29, 2023. FINDINGS: EKG electrodes are seen. There is hyperinflation of the lungs consistent with chronic obstructive lung disease (COPD). There is no demonstrated pleural abnormality. Normal size heart. Calcified bilateral hilar lymph nodes. Normal visualized pulmonary arteries. There is atherosclerotic tortuosity of the aortic arch and descending thoracic aorta. Normal visualized thoracic spine. There is degenerative osteoarthritis of the bilateral shoulders. There is evidence of prior left rotator cuff surgery. There is no demonstrated abnormality of the visualized soft tissue structures of the upper abdomen. RAD/Chest 1 View (Portable) IMPRESSION: Hyperinflation. The lungs are clear. Calcified bilateral hilar lymph nodes. Electronically Signed: Misbah Briscoe MD at 10:13 EDT ,
[2023-12-11] MEDS: MethylPREDNISolone 125 MG/2 ML Vial IV (10:17)
[2023-12-11 10:30] LABS: Anion Gap 3 (5-15); BUN 16 mg/dL (7-18); BUN/Creat Ratio 18.3 RATIO (10-20); Calcium,Total 8.7 mg/dL (8.5-10.1); Chloride 105 mmol/L (98-107); Creatinine, Serum 0.87 mg/dL (0.70-1.30); EST Glomerular Filtration Rate 91 mL/min (>60); Est Glom Filt Rate - Afr Amer 110 mL/min (>60); Estimated Creatinine Clearance 66.92 ml/min; Glucose 100 mg/dL (74-106); Sodium Level 138 mmol/L (136-145); Troponin-I HS 10 pg/mL (3.0-78.0)
[2023-12-11 11:06] VITALS: BP 132/76; PULSE 89; RESP 18; O2SAT 94
[2023-12-11 11:51] VITALS: BP 134/78; PULSE 89; RESP 18; TEMP 36.4; O2SAT 98
[2023-12-11 11:52] VITALS: O2SAT 92
== END 2023-12-11 11:53 | disposition home or self-care (01) ==
PROVIDERS: Emergency Provider Emergency Medicine; PCP Family Medicine; Visit Provider Emergency Medicine
DX: J10.1 Influenza due to other identified influenza virus with other respiratory manifestations (principal); J44.0 Chronic obstructive pulmonary disease with (acute) lower respiratory infection; I10 Essential (primary) hypertension; Z79.899 Other long term (current) drug therapy; Z96.611 Presence of right artificial shoulder joint; Z96.612 Presence of left artificial shoulder joint
CPT/HCPCS: 71045; 80048; 84484; 85025; 87631; 93005; 94640; 99284

== ENCOUNTER 2023-12-17 13:24 | Inpatient (IN) | payer OTHER, SELFPAY ==
[2023-12-17] VITALS (14 sets, daily range): BP systolic 131–178; BP diastolic 80–103; PULSE 69–116; RESP 18–32; TEMP 36.8–37.2; O2SAT 4–99; BMI 20.6
--- NOTE | 2023-12-17 13:35 | ED.RN ---
PER EMS PT 85% ON 4L NC. ON ARRIVAL PT 96% ON 6L NC
--- NOTE | 2023-12-17 13:42 | EKG12_ITS ---
Test Reason : SOB Blood Pressure : / mmHG Vent. Rate : 103 BPM Atrial Rate : 103 BPM P-R Int : 120 ms QRS Dur : 072 ms QT Int : 338 ms P-R-T Axes : 084 071 069 degrees QTc Int : 442 ms Sinus tachycardia with Premature atrial complexes Right atrial enlargement Borderline ECG Confirmed by DEBRA JOHNS, MELLISSA ([id number]), design editor SEBASTIEN ROMERO ([id number]) on 12/23/2023 1:34:05 PM Referred By: Confirmed By:OZZIE RICHARDSON MD
[2023-12-17] MEDS: Albuterol 2.5 MG/3 ML VIAL.NEB. INHALATION (14:02)
[2023-12-17] MEDS: Ipratropium/Albuterol Sulfate 3 ML AMPUL.NEB INHALATION ×3 (14:02→23:51)
--- NOTE | 2023-12-17 14:18 | RAD_ITS ---
STUDY: X-RAY CHEST REASON FOR EXAM: Male, 72 years old. Cough. Increasing shortness of breath and wheezing. TECHNIQUE: Single AP portable view of the chest. COMPARISON: Comparison is made with prior study dated December 11, 2023. FINDINGS: EKG electrodes are seen. Hyperinflation. There is evidence of new bibasilar pulmonary infiltrates as compared to prior study. Follow-up recommended. Normal size heart. Calcified mediastinal lymph nodes. Normal visualized pulmonary arteries. There is atherosclerotic tortuosity of the aortic arch and descending thoracic aorta. Normal visualized thoracic spine. There is degenerative osteoarthritis of the bilateral shoulders. There is no demonstrated abnormality of the visualized soft tissue structures of the upper abdomen. RAD/Chest 1 View (Portable) IMPRESSION: Hyperinflation. New bibasilar pulmonary infiltrates. Follow-up recommended. Electronically Signed: Misbah Briscoe MD at 14:46 EDT ,
--- NOTE | 2023-12-17 14:20 | EDS_ITS ---
HPI History of Present Illness Chief Complaint: Shortness of Breath Informant: patient, spouse/S.O. and EMS Narrative Narrative: 72-year-old [place] male presenting to the emergency room via EMS with a chief complaint of dyspnea. Patient was recently diagnosed with influenza A with COPD exacerbation on 10 December in the emergency department and discharged home on prednisone. Patient did not take the prednisone as he does not like the way it makes him feel. The patient has not had any fevers. He continues to note sputum production which she describes as dark and green. He has had increasing dyspnea and decreased appetite. He attempted to give aerosols at home. Patient was noted to have significantly labored breathing and hypoxia for EMS. Because of his tachycardia no further aerosols were given. He has known COPD. He reports that he has lost approximately 12 pounds in the past couple weeks. [facility] Medical History COPD (chronic obstructive pulmonary disease) [place] (hard of hearing) Hypertension Home Medications albuterol sulfate 2.5 mg/3 mL (0.083 %) solution for nebulization 2.5 mg (3 mL) inhalation Q4H PRN #25 vials 10/19/16 [Rx Last Taken Unknown] amlodipine 5 mg tablet 5 mg PO DAILY 03/06/21 [History Last Taken Unknown] fluticasone furoate 200 mcg-vilanterol 25 mcg/dose inhalation powder (Breo Ellipta) 1 inh inhalation DAILY 03/06/21 [History Last Taken Unknown] prednisone 20 mg tablet 40 mg (2 x 20 mg) PO DAILY #14 tabs 10/29/23 [Rx Last Taken Unknown] prednisone 20 mg tablet 40 mg (2 x 20 mg) PO DAILY #14 tabs 10/29/23 [Rx Last Taken Unknown] albuterol sulfate 2.5 mg/3 mL (0.083 %) solution for nebulization 2.5 mg (3 mL) inhalation Q4H PRN #25 vials 12/11/23 [Rx Last Taken Unknown] prednisone 20 mg tablet 40 mg (2 x 20 mg) PO DAILY 7 days #14 tabs 12/11/23 [Rx Last Taken Unknown] Allergy/AdvReac Type Severity Reaction Status Date / Time No Known Allergies Allergy Verified 12/17/23 13:33 Surgical History History of replacement of both shoulder joints Social History Smoking Status: Never smoker ROS ROS ED Constitutional Constitutional ED: Reports chills and weight loss; Denies fever(s) Eyes Eyes: Denies change in vision or diplopia ENT ENT ED: Denies ear pain, rhinorrhea or sore throat Cardiovascular Cardiovascular: Denies chest pain, orthopnea, palpitations or racing heartbeat Respiratory/Chest Respiratory/Chest: Reports cough, dyspnea, dyspnea on exertion and sputum; Denies orthopnea Gastrointestinal Gastrointestinal: Denies abdominal pain, diarrhea, nausea or vomiting Genitourinary Genitourinary ED: Denies dysuria, hematuria or urinary frequency Musculoskeletal Musculoskeletal: Denies arthralgias or myalgias Integumentary Denies abscess or rash Neurologic Neurologic: Reports headache(s); Denies weakness Psychiatric Psychiatric: Denies anxiety, depression, suicidal ideation or suicidal thoughts Endocrine Endocrinology: Denies polydipsia, polyphagia or polyuria Allergic/Immunologic Allergic/Immunologic ED: Denies mouth swelling, tongue swelling or urticaria EXAM Physical Exam Const Vital Signs: 12/17/23 13:26 12/17/23 13:31 12/17/23 13:34 Temperature 98.7 F 98.7 F Temperature Source Temporal Temporal Pulse Rate 106 H 106 H Respiratory Rate 28 H 28 H Respiratory Effort Short of Breath Labored Respiratory Depth Shallow Respiratory Pattern Tachypnea Blood Pressure 174/103 H 174/103 H Blood Pressure Mean 126 126 Pulse Ox 96 96 Oxygen Delivery Method Nasal Cannula Nasal Cannula Nasal Cannula Oxygen Flow Rate (L/min) 6 6 85 12/17/23 13:53 12/17/23 14:07 12/17/23 14:07 Temperature Temperature Source Pulse Rate 107 H Respiratory Rate 32 H Respiratory Effort Respiratory Depth Respiratory Pattern Tachypnea Blood Pressure Blood Pressure Mean Pulse Ox 99 Oxygen Delivery Method Room Air Nasal Cannula Oxygen Flow Rate (L/min) 4 12/17/23 14:24 12/17/23 14:31 Temperature 98.9 F Temperature Source Temporal Pulse Rate 112 H 116 H Respiratory Rate 22 H 24 H Respiratory Effort Respiratory Depth Respiratory Pattern Blood Pressure 162/96 H 178/97 H Blood Pressure Mean 118 124 Pulse Ox 96 96 Oxygen Delivery Method Room Air Nasal Cannula Oxygen Flow Rate (L/min) 3 Positive well nourished and well developed General Appearance ED: well developed HEENT Reports normocephalic, head/scalp atraumatic and moist mucous membranes Eyes PERRL and EOMs intact bilaterally Neck no lymphadenopathy, supple and no JVD Resp Resp Narrative: Patient is tachypneic Auscultation: wheezes expiratory wheezes and diminished lung sounds Cardio regular rate, regular rhythm and no murmurs Rate: tachycardic GI normal to inspection, nondistended, normoactive bowel sounds and non-tender Palpation: soft Back/Spine no CVA tenderness and normal ROM Extremity normal to inspection General Extremety ED: Negative for edema General Extremity: Negative for edema Neuro oriented x3 and CN's II-XII intact bilaterally Sensorium / Orientation: alert Motor Exam: strength 5/5 throughout Psych mental status grossly normal Mood & Affect: Negative for depressed or tearful Skin no rashes or lesions noted and no wounds MDM MDM MDM Narrative Medical decision making narrative: Differential diagnosis includes but not limited to pneumonia COPD exacerbation viral syndrome dehydration ACS renal failure electrolyte abnormalities anemia patient received supplemental oxygen breathing treatments. My independent or potation of the chest x-ray is bibasilar infiltrates. White count of 20,000 platelet count 385 hemoglobin 15.3 INR 1.1 with a PTT of 28 CO2 at 37 anion gap of 4 creatinine 0.69 lactic acid 0.9 blood cultures were obtained. Patient received Rocephin and azithromycin. He also received a dose of Solu-Medrol and IV fluids. Plan will be admission into the hospital. History & Record Review Discussion w/independent historian: Patient and Family Additional record(s) reviewed:: Prior ED visit and Prior labs Lab Data Attestation: I reviewed the patient's lab results. Labs: Laboratory Results - last 24 hr 12/17/23 14:05 WBC 20.0 H RBC 5.54 Hgb 15.3 Hct 47.9 MCV 86.5 MCH 27.6 MCHC 31.9 L RDW Std Deviation 45.5 H RDW Coeff of Sherri 14.2 Plt Count 385 MPV 9.8 Immature Gran % (Auto) 0.700 Neut % (Auto) 85.9 H Lymph % (Auto) 3.5 L [place] % (Auto) 9.6 Eos % (Auto) 0.1 Baso % (Auto) 0.2 Absolute Neuts (auto) 17.2 H Absolute Lymphs (auto) 0.69 L Nucleated RBC % 0 Differential Comment COMMENT Diff Path Review May foll PT 13.0 INR 1.0 APTT 28.0 Sodium 138 Potassium 4.1 Chloride 97 L Carbon Dioxide 37.0 H Anion Gap 4 L BUN 17 Creatinine 0.69 L Estim Creat Clear Calc 68.47 Est GFR (MDRD) Af Amer 144 Est GFR (MDRD) Non-Af 119 BUN/Creatinine Ratio 24.5 H Glucose 104 Lactic Acid 0.9 Calcium 9.1 Total Bilirubin 0.80 AST 18 ALT 18 Alkaline Phosphatase 86 Total Protein 7.1 Albumin 2.9 L Globulin 4.2 Albumin/Globulin Ratio 0.7 L Radiography Diagnostic Testing: Clinical Impression(s) from Imaging Studies Chest X-Ray 12/17/23 14:18 IMPRESSION: Hyperinflation. New bibasilar pulmonary infiltrates. Follow-up recommended. Electronically Signed: Misbah Briscoe MD at 14:46 EDT , EKG Initial EKG: Attestation: I personally reviewed and interpreted this EKG as follows: Comments: Sinus tachycardia with a ventricular rate of 103 bpm. PACs noted. Discharge Plan Dx/Rx/DC Orders Clinical Impression: Acute hypoxemic respiratory failure, COPD exacerbation, Pneumonia Disposition [facility]
[2023-12-17 14:23] LABS: Absolute Lymphocyte Count 0.69 X10^3/uL (0.83-4.51); Absolute Neutrophil Count 17.2 X10^3/uL (2.0-7.7); Basophil# 0.04 X10^3/uL; Basophil% 0.2 % (0-1); Eosinophil# 0.02 X10^3/uL; Eosinophils% 0.1 % (0-5); Hematocrit 47.9 % (40-54); Hemoglobin 15.3 g/dL (13.0-16.5); Lymphocyte # 0.69 X10^3/ul (0.83-4.51); Lymphocyte % 3.5 % (19-41); Mean Corp Hgb Conc 31.9 g/dL (32-36); Mean Corpuscular Hgb 27.6 pg (27.0-32.0); Mean Corpuscular Volume 86.5 fL (80-94); Mean Platelet Vol. 9.8 fl (6.2-12.0); Monocyte# 1.92 X10^3/uL; Monocyte% 9.6 % (0-10); NRBC Flagged by Analyzer 0 % (0-5); Neutrophil # 17.17 X10^3/uL (2.7-7.7); Neutrophil % 85.9 % (47-70); POSITIVE DIFFERENTIAL YES; Platelet Count 385 K/mm3 (150-450); RBC Distribution Width CV 14.2 % (11.6-14.6); RBC Distribution Width SD 45.5 fl (35.1-43.9); Red Blood Count 5.54 M/mm3 (4.6-6.2)
[2023-12-17] MEDS: 0.9% Normal Saline (1000mL) 1,000 ML 999 ML IV (14:26)
[2023-12-17] MEDS: MethylPREDNISolone 125 MG/2 ML Vial 60 MG IV (14:26)
[2023-12-17 14:31] LABS: Differential Indicated SCAN CRITERIA MET
[2023-12-17 14:39] LABS: ALB/GLOB Ratio 0.7 RATIO (0.9-2.4); AST(SGOT) 18 U/L (15-37); Alanine Aminotransfer ALT/SGPT 18 U/L (16-61); Albumin, Serum 2.9 g/dL (3.2-5.0); Alkaline Phosphatase 86 U/L (45-117); Anion Gap 4 (5-15); BUN 17 mg/dL (7-18); BUN/Creat Ratio 24.5 RATIO (10-20); Calcium,Total 9.1 mg/dL (8.5-10.1); Chloride 97 mmol/L (98-107); Creatinine, Serum 0.69 mg/dL (0.70-1.30); EST Glomerular Filtration Rate 119 mL/min (>60); Est Glom Filt Rate - Afr Amer 144 mL/min (>60); Estimated Creatinine Clearance 68.47 ml/min; Globulin 4.2 g/dL (2.2-4.2); Glucose 104 mg/dL (74-106); Potassium 4.1 mmol/L (3.5-5.1); Protein, Total 7.1 g/dL (6.4-8.2); Sodium Level 138 mmol/L (136-145)
[2023-12-17] MEDS: Azithromycin 500 MG in Dextrose 5%-Water (250mL Bag) 250 ML 250 MG IV (14:58)
[2023-12-17] MEDS: Ceftriaxone 1 GM/50 ML BAG IV (14:58)
[2023-12-17] MEDS: 0.9% Normal Saline (1000mL) 1,000 ML 150 ML IV (15:00)
[2023-12-17 15:05] LABS: Lactic Acid 0.9 mmol/L (0.4-1.9)
[2023-12-17 15:22] LABS: Bacteria 0 SEEN /hpf (None Seen); Mucous, Urine 0 SEEN /hpf (<or=2+); Squamous Epithelial Cells - UA 0 SEEN /hpf (0-5); White Blood Cells 0 SEEN /hpf (0-5)
--- NOTE | 2023-12-17 15:24 | HP.PCM.HOS_ITS ---
[facility] - General General Date of Service: 12/17/23 Chief Complaint: Shortness of breath HPI Narrative BRANDON QUINN, is a 72 M who presents with shortness of breath. Patient was seen on the where he was diagnosed with COPD exacerbation exacerbated by influenza A. Patient was discharged with prednisone. Patient is chronically on oxygen anywhere from 3 to 4 L/min. Presents with just worsening shortness of breath and cough. Patient had a chest x-ray that showed bilateral infiltrates which was not present on the previous chest x-ray. Patient received bronchodilators, methylprednisolone and ceftriaxone azithromycin. [facility]LY [facility] Medical History COPD (chronic obstructive pulmonary disease) [place] (hard of hearing) Hypertension Home Medications albuterol sulfate 2.5 mg/3 mL (0.083 %) solution for nebulization 2.5 mg (3 mL) inhalation Q4H PRN #25 vials 10/19/16 [Rx Last Taken Unknown] amlodipine 5 mg tablet 5 mg PO DAILY 03/06/21 [History Last Taken Unknown] fluticasone furoate 200 mcg-vilanterol 25 mcg/dose inhalation powder (Breo Ellipta) 1 inh inhalation DAILY 03/06/21 [History Last Taken Unknown] prednisone 20 mg tablet 40 mg (2 x 20 mg) PO DAILY #14 tabs 10/29/23 [Rx Last Taken Unknown] prednisone 20 mg tablet 40 mg (2 x 20 mg) PO DAILY #14 tabs 10/29/23 [Rx Last Taken Unknown] albuterol sulfate 2.5 mg/3 mL (0.083 %) solution for nebulization 2.5 mg (3 mL) inhalation Q4H PRN #25 vials 12/11/23 [Rx Last Taken Unknown] prednisone 20 mg tablet 40 mg (2 x 20 mg) PO DAILY 7 days #14 tabs 12/11/23 [Rx Last Taken Unknown] Allergy/AdvReac Type Severity Reaction Status Date / Time No Known Allergies Allergy Verified 12/17/23 13:33 Surgical History History of replacement of both shoulder joints Social History (Updated 12/17/23 @ 15:[address] Anirudh Thompson DO) Smoking Status: Former smoker ROS ROS Narrative Has chest pain secondary to cough. All review of systems were negative except as mentioned above in the history of present illness and the other review of systems. Vital Signs Vital Signs Vital Signs: 12/17/23 13:26 12/17/23 13:31 12/17/23 13:34 Temperature 37.1 C 37.1 C Temperature Source Temporal Temporal Pulse Rate 106 H 106 H Respiratory Rate 28 H 28 H Respiratory Effort Short of Breath Labored Respiratory Depth Shallow Respiratory Pattern Tachypnea Blood Pressure 174/103 H 174/103 H Blood Pressure Mean 126 126 Pulse Ox 96 96 Oxygen Delivery Method Nasal Cannula Nasal Cannula Nasal Cannula Oxygen Flow Rate (L/min) 6 6 85 12/17/23 13:53 12/17/23 14:07 12/17/23 14:07 Temperature Temperature Source Pulse Rate 107 H Respiratory Rate 32 H Respiratory Effort Respiratory Depth Respiratory Pattern Tachypnea Blood Pressure Blood Pressure Mean Pulse Ox 99 Oxygen Delivery Method Room Air Nasal Cannula Oxygen Flow Rate (L/min) 4 12/17/23 14:24 12/17/23 14:31 12/17/23 15:00 Temperature 37.2 C 36.9 C Temperature Source Temporal Temporal Pulse Rate 112 H 116 H 104 H Respiratory Rate 22 H 24 H 22 H Respiratory Effort Respiratory Depth Respiratory Pattern Blood Pressure 162/96 H 178/97 H 162/101 H Blood Pressure Mean 118 124 121 Pulse Ox 96 96 97 Oxygen Delivery Method Room Air Nasal Cannula Nasal Cannula Oxygen Flow Rate (L/min) 3 3 Weight Weight: 58 kg Body Mass Index (BMI) 20.6 Physical Exam Const alert and no apparent distress Constitutional Narrative: Hard of hearing. No respiratory distress. No conversational dyspnea. General Appearance: cooperative HEENT normocephalic, head/scalp atraumatic and moist oral mucous membranes HEENT Narrative: Mallampati 1 Eyes Eyes Narrative: Glasses. No icterus Resp normal respiratory effort, no retractions, no use of accessory muscles and clear to auscultation bilaterally Cardio regular rate, regular rhythm, S1 normal heart sound and S2 normal heart sound GI normal to inspection, nondistended, normoactive bowel sounds, soft to palpation, non-tender and non-distended Extremity normal to inspection and full ROM Neuro Sensorium / Orientation: awake and alert Results Lab / Micro Data Attestation: I reviewed the patient's lab results. 12/17/23 14:05 12/17/23 14:05 Labs: Laboratory Results - last 24 hr 12/17/23 14:05: WBC 20.0 H, RBC 5.54, Hgb 15.3, Hct 47.9, MCV 86.5, MCH 27.6, MCHC 31.9 L, RDW Std Deviation 45.5 H, RDW Coeff of Sherri 14.2, Plt Count 385, MPV 9.8, Immature Gran % (Auto) 0.700, Neut % (Auto) 85.9 H, Lymph % (Auto) 3.5 L, [place] % (Auto) 9.6, Eos % (Auto) 0.1, Baso % (Auto) 0.2, Absolute Neuts (auto) 17.2 H, Absolute Lymphs (auto) 0.69 L, Nucleated RBC % 0, Differential Comment COMMENT, Diff Path Review December, PT 13.0, INR 1.0, APTT 28.0, Sodium 138, Potassium 4.1, Chloride 97 L, Carbon Dioxide 37.0 H, Anion Gap 4 L, BUN 17, Creatinine 0.69 L, Estim Creat Clear Calc 68.47, Est GFR (MDRD) Af Amer 144, Est GFR (MDRD) Non-Af 119, BUN/Creatinine Ratio 24.5 H, Glucose 104, Lactic Acid 0.9, Calcium 9.1, Total Bilirubin 0.80, AST 18, ALT 18, Alkaline Phosphatase 86, Total Protein 7.1, Albumin 2.9 L, Globulin 4.2, Albumin/Globulin Ratio 0.7 L Imaging Chest x-ray personally viewed and showed bilateral infiltrates was new from chest x-ray on the Radiology Impression Chest X-Ray 12/17/23 14:18 IMPRESSION: Hyperinflation. New bibasilar pulmonary infiltrates. Follow-up recommended. Electronically Signed: Misbah Briscoe MD at 14:46 EDT , Assessment & Plan Assessment/Plan (1) Pneumonia: PLAN: Plan Suspected pneumococcal pneumonia * May have been secondary to his recent influenza infection. * Check urinary antigens restart colchicine Legionella. Check sputum culture. * Antibiotics with ceftriaxone and azithromycin. Pulmonary toilet. Acute COPD exacerbation * Continued bronchodilators * Methylprednisolone Influenza A * Not a candidate for oseltamivir. Was not prescribed when he was here on the . Chronic conditions * Hypertension: Continue with amlodipine. VTE prophylaxis: Enoxaparin. CODE STATUS: Addressed with the patient. Patient was very full code. Charges/Coding Visit Charges Inpatient E&M: 11592 Init Hosp L3
[2023-12-17 15:31] LABS: Color, Urine Yellow (Yellow); Glucose, Dipstick Normal (Normal); Ketone-Dipstick 5 mg/dl (Negative); Leukocyte Esterase-Dipstick Negative /ul (Negative); Nitrite-Dipstick Negative (Negative); Occult Blood-Urine 25 /ul (Negative); Protein-Dipstick 30 mg/dl (Negative); Urine Bilirubin Dipstick Negative (Negative); Urine Clarity Clear (Clear); Urine Urobilinogen Normal (Normal); Urine pH 6.5 (5.0 - 8.0)
[2023-12-17 15:48] LABS: Red Blood Cells-Urine 0-5 SEEN /hpf (0-5)
[2023-12-17] MEDS: 0.9% Saline Lock 10 ML Syringe IV (21:47)
[2023-12-17] MEDS: ALPRAZolam 0.25 MG Tablet PO (21:54)
[2023-12-17] MEDS: Acetaminophen 325 MG Tablet 650 MG PO (21:54)
[2023-12-18] VITALS (10 sets, daily range): BP systolic 131–142; BP diastolic 71–86; PULSE 71–98; RESP 18–20; TEMP 36.4–37.3; O2SAT 90–98
[2023-12-18] MEDS: Ipratropium/Albuterol Sulfate 3 ML AMPUL.NEB INHALATION ×5 (07:47→23:28)
[2023-12-18 07:51] LABS: Absolute Neutrophil Count 15.4 X10^3/uL (2.0-7.7); Basophil# 0.02 X10^3/uL; Basophil% 0.1 % (0-1); Hematocrit 45.1 % (40-54); Hemoglobin 14.4 g/dL (13.0-16.5); Lymphocyte % 1.9 % (19-41); Mean Corp Hgb Conc 31.9 g/dL (32-36); Mean Corpuscular Hgb 27.4 pg (27.0-32.0); Mean Corpuscular Volume 85.9 fL (80-94); Mean Platelet Vol. 9.7 fl (6.2-12.0); Monocyte# 0.32 X10^3/uL; NRBC Flagged by Analyzer 0 % (0-5); Neutrophil # 15.42 X10^3/uL (2.7-7.7); Neutrophil % 95.4 % (47-70); POSITIVE DIFFERENTIAL YES; Platelet Count 398 K/mm3 (150-450); RBC Distribution Width CV 14.2 % (11.6-14.6); RBC Distribution Width SD 44.6 fl (35.1-43.9); Red Blood Count 5.25 M/mm3 (4.6-6.2); White Blood Count 16.2 K/mm3 (4.4-11.0)
[2023-12-18 08:19] LABS: Anion Gap 5 (5-15); BUN 23 mg/dL (7-18); BUN/Creat Ratio 27.4 RATIO (10-20); Calcium,Total 9.2 mg/dL (8.5-10.1); Chloride 96 mmol/L (98-107); Creatinine, Serum 0.84 mg/dL (0.70-1.30); EST Glomerular Filtration Rate 95 mL/min (>60); Est Glom Filt Rate - Afr Amer 115 mL/min (>60); Estimated Creatinine Clearance 63.19 ml/min; Glucose 193 mg/dL (74-106); Potassium 4.2 mmol/L (3.5-5.1); Sodium Level 136 mmol/L (136-145)
[2023-12-18] MEDS: amLODIPine 5 MG Tablet PO (08:48)
[2023-12-18] MEDS: Enoxaparin 40 MG/0.4 ML Syringe SC (08:49)
[2023-12-18] MEDS: Ceftriaxone 1 GM/50 ML BAG IV (08:53)
[2023-12-18] MEDS: Azithromycin 500 MG in Dextrose 5%-Water (250mL Bag) 250 ML 250 MG IV (09:27)
--- NOTE | 2023-12-18 10:21 | PN.HOSP_ITS ---
Reason for Visit Reason for Visit: Diagnoses Pneumonia, unspecified organism (12/17/23) Objective Data Objective Data Vital Signs: Vital Signs Temp Pulse Resp BP Pulse Ox O2 Del Method O2 Flow Rate 98.7 F 84 18 140/71 H 97 Nasal Cannula 2 12/18/23 08:44 12/18/23 08:44 12/18/23 08:44 12/18/23 08:44 12/18/23 08:44 12/18/23 08:56 12/18/23 08:56 Oxygen Flow Rate (L/min) 2 Oxygen Delivery Method Nasal Cannula Weight: 123 lb 14.397 oz Body Mass Index (BMI) 20.0 Intake & Output: Intake and Output for Last 24 Hours 12/16/23 12/17/23 12/18/23 23:59 23:59 23:59 Intake Total 1487.5 / 1787.5 450 / 450 Output Total 500 / 500 Balance 1487.5 / 1287.5 -50 / -50 Lab / Micro Data 12/18/23 07:14 12/18/23 07:14 Labs: Laboratory Results - last 24 hr 12/17/23 14:05: WBC 20.0 H, RBC 5.54, Hgb 15.3, Hct 47.9, MCV 86.5, MCH 27.6, MCHC 31.9 L, RDW Std Deviation 45.5 H, RDW Coeff of Sherri 14.2, Plt Count 385, MPV 9.8, Immature Gran % (Auto) 0.700, Neut % (Auto) 85.9 H, Lymph % (Auto) 3.5 L, [place] % (Auto) 9.6, Eos % (Auto) 0.1, Baso % (Auto) 0.2, Absolute Neuts (auto) 17.2 H, Absolute Lymphs (auto) 0.69 L, Nucleated RBC % 0, Differential Comment COMMENT, Diff Path Review December foll, PT 13.0, INR 1.0, APTT 28.0, Sodium 138, Potassium 4.1, Chloride 97 L, Carbon Dioxide 37.0 H, Anion Gap 4 L, BUN 17, Creatinine 0.69 L, Estim Creat Clear Calc 68.47, Est GFR (MDRD) Af Amer 144, Est GFR (MDRD) Non-Af 119, BUN/Creatinine Ratio 24.5 H, Glucose 104, Lactic Acid 0.9, Calcium 9.1, Total Bilirubin 0.80, AST 18, ALT 18, Alkaline Phosphatase 86, Total Protein 7.1, Albumin 2.9 L, Globulin 4.2, Albumin/Globulin Ratio 0.7 L 12/17/23 15:14: Urine Color Yellow, Urine Clarity Clear, Urine pH 6.5, Ur Specific [place] 1.010, Urine Protein 30 H, Urine Glucose (UA) Normal, Urine Ketones 5 H, Urine Occult Blood 25 H, Urine Nitrite Negative, Urine Bilirubin Negative, Urine Urobilinogen Normal, Ur Leukocyte Esterase Negative, Urine RBC 0-5 SEEN, Urine WBC 0 SEEN, Ur Squamous Epith Cells 0 SEEN, Urine Bacteria 0 SEEN, Urine Mucus 0 SEEN 12/18/23 07:14: WBC 16.2 H, RBC 5.25, Hgb 14.4, Hct 45.1, MCV 85.9, MCH 27.4, MCHC 31.9 L, RDW Std Deviation 44.6 H, RDW Coeff of Sherri 14.2, Plt Count 398, MPV 9.7, Immature Gran % (Auto) 0.600, Neut % (Auto) 95.4 H, Lymph % (Auto) 1.9 L, [place] % (Auto) 2.0, Eos % (Auto) 0.0, Baso % (Auto) 0.1, Absolute Neuts (auto) 15.4 H, Absolute Lymphs (auto) 0.30 L, Nucleated RBC % 0, Sodium 136, Potassium 4.2, Chloride 96 L, Carbon Dioxide 35.0 H, Anion Gap 5, BUN 23 H, Creatinine 0.84, Estim Creat Clear Calc 63.19, Est GFR (MDRD) Af Amer 115, Est GFR (MDRD) Non-Af 95, BUN/Creatinine Ratio 27.4 H, Glucose 193 H, Calcium 9.2 Micro: Microbiology 12/17/23 14:18 Sputum, Expectorated/Coughed Gram Stain - Final 12/17/23 15:14 Urine, Random Legionella Antigen - Final 12/17/23 15:14 Urine, Random Streptococcus pneumoniae Antigen (M - Final Radiography Diagnostic Testing: Radiology Impression Chest X-Ray 12/17/23 14:18 IMPRESSION: Hyperinflation. New bibasilar pulmonary infiltrates. Follow-up recommended. 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 He is on scheduled and rescue inhaler. Patient has been using oxygen only for last 1 day prior to admission. Not chronically on O2. History of diagnosed COPD. Started smoking at the age of 17-18 and quit about 18 years ago therefore 36 pack years of total smoking. Feels chest tightness and cough with sputum production mainly thick greenish-yellow. No fever Physical exam Seen and examined General: Alert, Oriented x3, Cooperative HEENT: Atraumatic, PERRLA, EOMI, Normocephalic Oral: No Gingival or Mucosal Lesions/ Ulcerations Neck: Supple, No JVD, Negative Carotid Bruits Chest wall/Lungs: Air entry severely diminished in bilateral lung bases. Bilateral wheezing Cardiovascular: Regular rate, Regular Rhythm, Normal S1, Normal S2, No M/G/R Abdomen: Bowel Sounds Present, Soft, Non Tender, Non-Distended : No dysuria. No renal angle tenderness. No suprapubic tenderness. Extremities: No edema, Capillary Refill Less than 3 Seconds Skin: No rashes, No breakdown Musculoskeletal: No Tenderness to Palpation of Joints or Extremities Neurological: Cranial nerves II-XII grossly intact, DTR 2+/4. No acute focal neurological deficit. Psych/Mental Status: Normal Affect, Appropriate. Assessment & Plan Assessment/Plan (1) Pneumonia: PLAN: Plan 72-year-old gentleman came to ED with shortness of breath and wheezing. Viki de souza had COPD exacerbation from influenza A on 10 December and was discharged on prednisone. Patient did not take prednisone. No fever. Lost 12 pounds in the past couple weeks. Suspected pneumococcal pneumonia * May have been secondary to his recent influenza infection. * Check urinary antigens restart colchicine Legionella. Check sputum culture. * Antibiotics with ceftriaxone and azithromycin. Pulmonary toilet. 12/17:Leukocytosis improving. Subjectively patient feels improvement in shortness of breath still has chest tightness and decreased air entry and wheezing. Continue nebulization IV steroid incentive spirometry and Pep. Urinary antigens are negative. Sputum culture pending. Acute COPD exacerbation * Continued bronchodilators * Methylprednisolone Influenza A * Not a candidate for oseltamivir. Was not prescribed when he was here on the . Chronic conditions * Hypertension: Continue with amlodipine. VTE prophylaxis: Enoxaparin. CODE STATUS: Addressed with the patient. Patient was very full code. Microbiology Past 72 Hours 12/17/23 14:18 Sputum, Expectorated/Coughed Gram Stain - Final 12/17/23 15:14 Urine, Random Legionella Antigen - Final 12/17/23 15:14 Urine, Random Streptococcus pneumoniae Antigen (M - Final Laboratory Results 12/17/23 14:05: WBC 20.0 H, RBC 5.54, Hgb 15.3, Hct 47.9, MCV 86.5, MCH 27.6, MCHC 31.9 L, RDW Std Deviation 45.5 H, RDW Coeff of Sherri 14.2, Plt Count 385, MPV 9.8, Immature Gran % (Auto) 0.700, Neut % (Auto) 85.9 H, Lymph % (Auto) 3.5 L, [place] % (Auto) 9.6, Eos % (Auto) 0.1, Baso % (Auto) 0.2, Absolute Neuts (auto) 17.2 H, Absolute Lymphs (auto) 0.69 L, Nucleated RBC % 0, Differential Comment COMMENT, Diff Path Review December, PT 13.0, INR 1.0, APTT 28.0, Sodium 138, Potassium 4.1, Chloride 97 L, Carbon Dioxide 37.0 H, Anion Gap 4 L, BUN 17, Creatinine 0.69 L, Estim Creat Clear Calc 68.47, Est GFR (MDRD) Af Amer 144, Est GFR (MDRD) Non-Af 119, BUN/Creatinine Ratio 24.5 H, Glucose 104, Lactic Acid 0.9, Calcium 9.1, Total Bilirubin 0.80, AST 18, ALT 18, Alkaline Phosphatase 86, Total Protein 7.1, Albumin 2.9 L, Globulin 4.2, Albumin/Globulin Ratio 0.7 L 12/17/23 15:14: Urine Color Yellow, Urine Clarity Clear, Urine pH 6.5, Ur Speci fic [place] 1.010, Urine Protein 30 H, Urine Glucose (UA) Normal, Urine Ketones 5 H, Urine Occult Blood 25 H, Urine Nitrite Negative, Urine Bilirubin Negative, Urine Urobilinogen Normal, Ur Leukocyte Esterase Negative, Urine RBC 0-5 SEEN, Urine WBC 0 SEEN, Ur Squamous Epith Cells 0 SEEN, Urine Bacteria 0 SEEN, Urine Mucus 0 SEEN 12/18/23 07:14: WBC 16.2 H, RBC 5.25, Hgb 14.4, Hct 45.1, MCV 85.9, MCH 27.4, MCHC 31.9 L, RDW Std Deviation 44.6 H, RDW Coeff of Sherri 14.2, Plt Count 398, MPV 9.7, Immature Gran % (Auto) 0.600, Neut % (Auto) 95.4 H, Lymph % (Auto) 1.9 L, [place] % (Auto) 2.0, Eos % (Auto) 0.0, Baso % (Auto) 0.1, Absolute Neuts (auto) 15.4 H, Absolute Lymphs (auto) 0.30 L, Nucleated RBC % 0, Sodium 136, Potassium 4.2, Chloride 96 L, Carbon Dioxide 35.0 H, Anion Gap 5, BUN 23 H, Creatinine 0.84, Estim Creat Clear Calc 63.19, Est GFR (MDRD) Af Amer 115, Est GFR (MDRD) Non-Af 95, BUN/Creatinine Ratio 27.4 H, Glucose 193 H, Calcium 9.2 Charges/Coding Visit Charges Inpatient E&M: 33775 Subs Hosp L2
--- NOTE | 2023-12-18 11:40 | CASEMGMT ---
EM JOINER Assessment: Face to Face with pt for initial transition planning/care coordination assessment. EM JOINER introduced self and role at [facility], pt voices understanding and consents to assessment. Pt is A&O x4 and answers all questions appropriately at this time. Pt sitting up in bed in no distress with oxygen on and at bedside. Care providers, pharmacy, and demographics verified/updated. Admitting Dx: pneumonia PCP:[facility]:teresa Perez Preferred Pharmacy: [facility] Retail Insurance: Revstr Prescription Benefit: no LNOK: Jaylyn Johnson, Living Arrangements: Pt lives with in a two story home with no steps to enter. Pt reports he is I in ADL's and denies concerns at home. 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 Pt would like to use the [facility] van to transport home if available. Pt is able to secure transportation if it is the weekend or the van is not available. DME:cane and FWW available but does not use; nebulizer, pox, portable oxygen concentrator that is powered with a 12v battery. HHC/SNF: Denies hx of Pt states no concerns with going home at time of dc. Pt states should he dc home, he would like to use the portable oxygen concentrator and not be set up with an oxygen company. He states he knows who had the concentrator and can use it for unlimited time. Pt states no further concerns/needs. CM to follow. Advised pt to ask CM if any further question/concerns/needs arise, voices understanding. Pt Goal: Home Plan: Home, follow for oxygen- pt able to have portable concentrator brought in at time of dc if he qualifies for oxygen Rita STRICKLAND CM
[2023-12-18] MEDS: 0.9% Saline Lock 10 ML Syringe IV (14:56)
[2023-12-18] MEDS: Acetaminophen 325 MG Tablet 650 MG PO (21:58)
[2023-12-18] MEDS: ALPRAZolam 0.25 MG Tablet PO (21:59)
[2023-12-19] VITALS (12 sets, daily range): BP systolic 148–165; BP diastolic 81–93; PULSE 65–95; RESP 16–20; TEMP 36.6–37.3; O2SAT 85–100
[2023-12-19] MEDS: Ipratropium/Albuterol Sulfate 3 ML AMPUL.NEB INHALATION ×4 (07:23→23:13)
--- NOTE | 2023-12-19 07:31 | PN.HOSP_ITS ---
Reason for Visit Reason for Visit: Diagnoses Pneumonia, unspecified organism (12/17/23) Objective Data Objective Data Vital Signs: Vital Signs Temp Pulse Resp BP Pulse Ox O2 Del Method O2 Flow Rate 98.1 F 79 18 151/85 H 96 Nasal Cannula 2 12/19/23 05:37 12/19/23 05:37 12/19/23 05:37 12/19/23 05:37 12/19/23 05:40 12/19/23 05:40 12/19/23 05:40 Oxygen Flow Rate (L/min) 2 Oxygen Delivery Method Nasal Cannula Weight: 123 lb 14.397 oz Body Mass Index (BMI) 20.0 Intake & Output: Intake and Output for Last 24 Hours 12/17/23 12/18/23 12/19/23 23:59 23:59 23:59 Intake Total 1487.5 / 1787.5 905 / 905 200 / 200 Output Total 500 / 500 Balance 1487.5 / 1287.5 405 / 405 200 / 200 Medical Nutrition Assessment Dietitian: Malnutrition Criteria Met Start: 12/18/23 15:05 Freq: Status: Active Protocol: Document 12/18/23 15:05 RMA (Rec: 12/18/23 15:06 RMA [id number]) Nutrition Malnutrition Evidence of Malnutrition Exists Yes Malnutrition (severe): Acute Illness/Injury Evidenced By Suboptimal Energy Intake ( Severe),Weight Loss (Severe) Clinical Problem Acute Disease or Injury Related Malnutrition Etiology severe protein-calorie malnutrition in the context of acute disease related to inadequate oral/energy intake and increased energy expenditure/COPD Signs/Symptoms as evidenced by ~9% unintentional weight loss in less than 2 months, BMI 20.0, PO meeting less than 50% estimated nutrition needs x past 1-2 months Status Active Problem Recommendation Dietitian Recommendations/Changes Continue liberalized regular diet to optimize oral intake at meals. Will add ensure compact TID w/ meals. Will add magic cup w/ lunch tray. Additional ONS as needed to support weight gain and replete energy/protein. Lab / Micro Data 12/18/23 07:14 12/18/23 07:14 Labs: Laboratory Results - last 24 hr 12/18/23 07:14: WBC 16.2 H, RBC 5.25, Hgb 14.4, Hct 45.1, MCV 85.9, MCH 27.4, MCHC 31.9 L, RDW Std Deviation 44.6 H, RDW Coeff of Sherri 14.2, Plt Count 398, MPV 9.7, Immature Gran % (Auto) 0.600, Neut % (Auto) 95.4 H, Lymph % (Auto) 1.9 L, [place] % (Auto) 2.0, Eos % (Auto) 0.0, Baso % (Auto) 0.1, Absolute Neuts (auto) 15.4 H, Absolute Lymphs (auto) 0.30 L, Nucleated RBC % 0, Sodium 136, Potassium 4.2, Chloride 96 L, Carbon Dioxide 35.0 H, Anion Gap 5, BUN 23 H, Creatinine 0.84, Estim Creat Clear Calc 63.19, Est GFR (MDRD) Af Amer 115, Est GFR (MDRD) Non-Af 95, BUN/Creatinine Ratio 27.4 H, Glucose 193 H, Calcium 9.2 Micro: Microbiology 12/17/23 14:18 Sputum, Expectorated/Coughed Gram Stain - Final 12/17/23 15:14 Urine, Random Legionella Antigen - Final 12/17/23 15:14 Urine, Random Streptococcus pneumoniae Antigen (M - Final Physical Exam Narrative Seen and examined. Overall patient feels improvement in shortness of breath and dyspnea and wheezing. Patient on walking the morning got short of breath/dyspnea on exertion and cough. Has mild chest congestion/feels like mucus in the chest Physical exam Seen and examined General: Alert, Oriented x3, Cooperative HEENT: Atraumatic, PERRLA, EOMI, Normocephalic Oral: No Gingival or Mucosal Lesions/ Ulcerations Neck: Supple, No JVD, Negative Carotid Bruits Chest wall/Lungs: Air entry diminished in bilateral lung bases. Bilateral wheezing improving Cardiovascular: Regular rate, Regular Rhythm, Normal S1, Normal S2, No M/G/R Abdomen: Bowel Sounds Present, Soft, Non Tender, Non-Distended : No dysuria. No renal angle tenderness. No suprapubic tenderness. Extremities: No edema, Capillary Refill Less than 3 Seconds Skin: No rashes, No breakdown Musculoskeletal: No Tenderness to Palpation of Joints or Extremities Neurological: Cranial nerves II-XII grossly intact, DTR 2+/4. No acute focal neurological deficit. Psych/Mental Status: Normal Affect, Appropriate. Assessment & Plan Assessment/Plan (1) Pneumonia: PLAN: Plan 72-year-old gentleman came to ED with shortness of breath and wheezing. Recently had COPD exacerbation from influenza A on 10 December and was discharged on prednisone. Patient did not take prednisone. No fever. Lost 12 pounds in the past couple weeks. 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 He is on scheduled and rescue inhaler. Patient has been using oxygen only for last 1 day prior to admission. Not chronically on O2. History of diagnosed COPD. Started smoking at the age of 17-18 and quit about 18 years ago therefore 36 pack years of total smoking. Feels chest tightness and cough with sputum production mainly thick greenish-yellow. No fever Acute on chronic hypoxic respiratory failure: Patient was brought by EMS in re spiratory distress, labored breathing, tachypneic, dyspnea at rest with wheezing requiring 6 L of oxygen more than baseline currently on 3 to 4 L of oxygen at home. Suspected pneumococcal pneumonia * May have been secondary to his recent influenza infection. * Check urinary antigens restart colchicine Legionella. Check sputum culture. * Antibiotics with ceftriaxone and azithromycin. Pulmonary toilet. 12/17:Leukocytosis improving. Subjectively patient feels improvement in shortness of breath still has chest tightness and decreased air entry and wheezing. Continue nebulization IV steroid incentive spirometry and Pep. Urinary antigens are negative. Sputum culture pending. 12/18: Prelim sputum culture shows GNR LF,, GNR rare, Haemophilus influenzae 3+. Continue antibiotic. Patient is being managed on scheduled bronchodilator, IV Solu-Medrol, Mucinex, incentive spirometry and Pep. Acute COPD exacerbation * Continued bronchodilators * Methylprednisolone Influenza A * Not a candidate for oseltamivir. Was not prescribed when he was here on the . Chronic conditions * Hypertension: Continue with amlodipine. VTE prophylaxis: Enoxaparin. CODE STATUS: Addressed with the patient. Patient was very full code. Charges/Coding Visit Charges Inpatient E&M: 39482 Subs Hosp L2
[2023-12-19 09:18] LABS: Pathologist Review Reviewed
[2023-12-19] MEDS: amLODIPine 5 MG Tablet PO (09:31)
[2023-12-19] MEDS: Ceftriaxone 1 GM/50 ML BAG IV (09:31)
[2023-12-19] MEDS: Enoxaparin 40 MG/0.4 ML Syringe SC (09:31)
[2023-12-19] MEDS: 0.9% Saline Lock 10 ML Syringe IV ×3 (09:32→21:54)
[2023-12-19] MEDS: Azithromycin 500 MG in Dextrose 5%-Water (250mL Bag) 250 ML 250 MG IV (10:27)
[2023-12-19] MEDS: Pantoprazole Sodium 40 MG Tablet PO (15:20)
[2023-12-19] MEDS: guaiFENesin/D-Methorphan TAB.SR.12H 1 TABLET PO (21:53)
[2023-12-19] MEDS: Acetaminophen 325 MG Tablet 650 MG PO (21:58)
[2023-12-19] MEDS: MELATONIN 10 MG TABLET PO (21:58)
[2023-12-20] VITALS (7 sets, daily range): BP systolic 157–160; BP diastolic 83–93; PULSE 64–86; RESP 16–18; TEMP 36.9–37.7; O2SAT 83–99
[2023-12-20] MEDS: MELATONIN 10 MG TABLET PO (05:18)
[2023-12-20] MEDS: 0.9% Saline Lock 10 ML Syringe IV (05:18)
--- NOTE | 2023-12-20 05:45 | NURSING ---
did the oxygen home trial at 0515 this am. He was 99% on 2L when he woke up and when I took it up, he went down to 94%. He went to the bathroom on RA and when he came out was 84% RA. He sat down and I put him on 2L for his walk. He went up to 89% by the end of the short walk on 2L. It took him a few minutes once he was sitting to bump up to 95%.
[2023-12-20] MEDS: Ipratropium/Albuterol Sulfate 3 ML AMPUL.NEB INHALATION ×2 (07:21→10:49)
[2023-12-20] MEDS: amLODIPine 5 MG Tablet PO (08:26)
[2023-12-20] MEDS: guaiFENesin/D-Methorphan TAB.SR.12H 1 TABLET PO (08:26)
[2023-12-20] MEDS: Pantoprazole Sodium 40 MG Tablet PO (08:26)
[2023-12-20] MEDS: Enoxaparin 40 MG/0.4 ML Syringe SC (08:26)
[2023-12-20] MEDS: Ceftriaxone 1 GM/50 ML BAG IV (09:16)
[2023-12-20] MEDS: Azithromycin 500 MG in Dextrose 5%-Water (250mL Bag) 250 ML 250 MG IV (10:23)
--- NOTE | 2023-12-20 11:10 | DCINST_ITS ---
Discharge Instructions Diet Discharge Diet: No restrictions Activity Discharge Activity: Return to Normal Activity Weight Bearing Status: Weight bearing as tolerated Dressing / Incision Call your doctor if you observe: Fever of 101 or Higher, Coldness, Increased Pain, Numbness or Tingling, Change in Color, Inability to urinate, Inability to have a bowel movement, Shortness of breath, Dizziness, Fainting spells, Swelling in the ankles, Chest pain, Prolonged hiccupping, Increased palpitations (irregular heartbeat) and Calf discomfort Follow Up Care When: IN 2 WEEKS Test Results: Test results from this visit will be discussed in further detail at your follow- up appointment, if applicable. Discharge Plan Admission Admit Date/Time: 12/17/23 15:10 Primary Reason for Your Visit: Suspected pneumonia with acute COPD exacerbation Attending Provider: Fadi Lloyd Primary Care Provider: Jr Dodge Consulting Providers: Anirudh Thompson Discharge Orders/Prescriptions Prescriptions: New Mucinex DM 30-600 mg Tablet Extended Release 12 Hr 2 tab PO BID 7 Days Qty: 28 0RF melatonin 10 mg Tablet, Sublingual 10 mg PO QHS PRN (Reason: Insomnia) 30 Days Qty: 30 0RF prednisone 10 mg tablet 10 mg PO DAILY Qty: 30 0RF Rx Instructions: 40 mg for 3 days 30 mg for 3 days, 20 mg for 3 days,and 10 mg for 3 days cefdinir 300 mg capsule 300 mg PO BID 4 Days Qty: 8 0RF Continued albuterol sulfate 2.5 MG/3 ML solution for nebulization 2.5 mg inhalation Q4H PRN Qty: 25 0RF Rx Instructions: Use q4 hours and PRN for wheezing amlodipine 5 mg tablet 5 mg PO DAILY Patient Comments: Take 1 tablet by mouth once daily. albuterol sulfate [ProAir HFA] 90 mcg/actuation HFA aerosol inhaler 1 inh inhalation Q6H PRN (Reason: shortness of breath or wheezing) vitamin E 268 mg (400 unit) capsule 268 mg PO DAILY garlic 1,000 mg capsule 1,000 mg PO DAILY alprazolam [Xanax] 0.25 mg tablet 0.25 mg PO QHS Patient Comments: takes 1.5 tabs prednisone 20 mg tablet 40 mg PO DAILY Qty: 14 0RF albuterol sulfate 2.5 mg /3 mL (0.083 %) solution for nebulization 2.5 mg inhalation Q4H PRN Qty: 25 0RF Rx Instructions: Use q4 hours and PRN for wheezing Referrals / Follow Up: Jr Dodge DO [Primary Care Provider] - Within 2 Weeks Donato Perez MD [Med Staff - Active Staff] - Within 2 Weeks Disposition Disposition (needs filled in before D/C Order can be placed): Home, Self Care
[2023-12-20] MEDS: Acetaminophen 325 MG Tablet 650 MG PO (12:02)
--- NOTE | 2023-12-20 13:51 | DS.PCM_ITS ---
Providers Date of Admission: 12/17/23 Date of Discharge: 12/20/23 Primary Care Physician: Dr. Jr Dodge DO Reason For Visit: PNEUMONIA Diagnosis Discharge Diagnosis (1) Pneumonia: Status: Acute Code(s): J18.9 - Pneumonia, unspecified organism Plan 72-year-old gentleman came to ED with shortness of breath and wheezing. Recently had COPD exacerbation from influenza A on 10 December and was discharged on prednisone. Patient did not take prednisone. No fever. Lost 12 pounds in the past couple weeks. 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 He is on scheduled and rescue inhaler. Patient has been using oxygen only for last 1 day prior to admission. Not chronically on O2. History of diagnosed COPD. Started smoking at the age of 17-18 and quit about 18 years ago therefore 36 pack years of total smoking. Feels chest tightness and cough with sputum production mainly thick greenish-yellow. No fever Acute on chronic hypoxic respiratory failure: Patient was brought by EMS in respiratory distress, labored breathing, tachypneic, dyspnea at rest with wheezing requiring 6 L of oxygen more than baseline currently on 3 to 4 L of oxygen at home. Pneumonia most likely due to multiple organisms including Enterobacter cloacae, Acinetobacter and haemophilus influenza: * May have been secondary to his recent influenza infection. * Check urinary antigens restart colchicine Legionella. Check sputum culture. * Antibiotics with ceftriaxone and azithromycin. Pulmonary toilet. 12/17:Leukocytosis improving. Subjectively patient feels improvement in shortness of breath still has chest tightness and decreased air entry and wheezing. Continue nebulization IV steroid incentive spirometry and Pep. Urinary antigens are negative. Sputum culture pending. 12/18: Prelim sputum culture shows GNR LF,, GNR rare, Haemophilus influenzae 3+. Continue antibiotic. Patient is being managed on scheduled bronchodilator, IV Solu-Medrol, Mucinex, incentive spirometry and Pep. 12/19: Preliminary respiratory culture shows Enterobacter cloacae complex, Acinetobacter, Haemophilus influenzae possible fungus. Based on the above culture sensitivity patient discharged on levofloxacin for 5 more days. Acute COPD exacerbation * Continued bronchodilators * Methylprednisolone 12/19 for acute COPD exacerbation resolved. Patient has regular albuterol and maintenance triple inhaler therefore advised to continue that. Discharged on tapering dose of prednisone and Mucinex DM and advised to continue incentive spirometry and PEP for 1 week Influenza A * Not a candidate for oseltamivir. Was not prescribed when he was here on the . Chronic conditions * Hypertension: Continue with amlodipine. VTE prophylaxis: Enoxaparin. CODE STATUS: Addressed with the patient. Patient was very full code. Medications at Discharge Home Medications albuterol sulfate 2.5 mg/3 mL (0.083 %) solution for nebulization 2.5 mg (3 mL) inhalation Q4H PRN breathing #25 vials 10/19/16 amlodipine 5 mg tablet 5 mg PO DAILY blood pressure 03/06/21 prednisone 20 mg tablet 40 mg (2 x 20 mg) PO DAILY for breathing #14 tabs 10/29/23 albuterol sulfate 2.5 mg/3 mL (0.083 %) solution for nebulization 2.5 mg (3 mL) inhalation Q4H PRN #25 vials 12/11/23 albuterol sulfate 90 mcg/actuation aerosol inhaler (ProAir HFA) 1 inh inhalation Q6H PRN shortness of breath or wheezing 12/17/23 alprazolam 0.25 mg tablet (Xanax) 0.25 mg PO QHS anxiety 12/17/23 garlic 1,000 mg capsule 1,000 mg PO DAILY general health 12/17/23 vitamin E 268 mg (400 unit) capsule 268 mg PO DAILY general health 12/17/23 dextromethorphan-guaifenesin 30 mg-600 mg tablet extended hr (Mucinex DM) 2 tab PO BID 7 days #28 tabs 12/20/23 levofloxacin 500 mg tablet 500 mg PO DAILY 5 days #5 tabs 12/20/23 melatonin 10 mg sublingual tablet 10 mg PO QHS PRN Insomnia 30 days #30 tabs 12/20/23 prednisone 10 mg tablet 10 mg PO DAILY #30 tabs 12/20/23 Physical Exam Narrative Seen and examined. Overall patient feels much improvement in shortness of breath and dyspnea and wheezing. Requires 2 L of oxygen on exertion. Physical exam Seen and examined General: Alert, Oriented x3, Cooperative HEENT: Atraumatic, PERRLA, EOMI, Normocephalic Oral: No Gingival or Mucosal Lesions/ Ulcerations Neck: Supple, No JVD, Negative Carotid Bruits Chest wall/Lungs: Air entry diminished in bilateral lung bases. Mild bilateral expiratory rhonchi. Dyspnea much improved Cardiovascular: Regular rate, Regular Rhythm, Normal S1, Normal S2, No M/G/R Abdomen: Bowel Sounds Present, Soft, Non Tender, Non-Distended : No dysuria. No renal angle tenderness. No suprapubic tenderness. Extremities: No edema, Capillary Refill Less than 3 Seconds Skin: No rashes, No breakdown Musculoskeletal: No Tenderness to Palpation of Joints or Extremities Neurological: Cranial nerves II-XII grossly intact, DTR 2+/4. No acute focal neurological deficit. Psych/Mental Status: Normal Affect, Appropriate. Medical Records Data Medical Nutrition Assessment Dietitian: Malnutrition Criteria Met Start: 12/18/23 15:05 Freq: Status: Active Protocol: Document 12/18/23 15:05 RMA (Rec: 12/18/23 15:06 RMA [id number]) Nutrition Malnutrition Evidence of Malnutrition Exists Yes Malnutrition (severe): Acute Illness/Injury Evidenced By Suboptimal Energy Intake ( Severe),Weight Loss (Severe) Clinical Problem Acute Disease or Injury Related Malnutrition Etiology severe protein-calorie malnutrition in the context of acute disease related to inadequate oral/energy intake and increased energy expenditure/COPD Signs/Symptoms as evidenced by ~9% unintentional weight loss in less than 2 months, BMI 20.0, PO meeting less than 50% estimated nutrition needs x past 1-2 months Status Active Problem Recommendation Dietitian Recommendations/Changes Continue liberalized regular diet to optimize oral intake at meals. Will add ensure compact TID w/ meals. Will add magic cup w/ lunch tray. Additional ONS as needed to support weight gain and replete energy/protein. Weight / BMI Weight Weight: 123 lb 14.397 oz Body Mass Index (BMI) 20.0 ABG / Lab / Microbiology Data 12/18/23 07:14 12/18/23 07:14 Microbiology: Microbiology 12/17/23 14:18 Sputum, Expectorated/Coughed Gram Stain - Final 12/17/23 14:18 Sputum, Expectorated/Coughed Respiratory Culture - Preliminary Enterobacter cloacae complex Acinetobacter Lwoffi Haemophilus influenzae Possible Fungus 12/17/23 14:07 Blood Culture (Wb) - Anticubital Right Blood Culture - Preliminary No growth in 48 hours. 12/17/23 14:05 Blood Culture (Wb) - Anticubital Left Blood Culture - Preliminary No growth in 48 hours. 12/17/23 15:14 Urine, Clean Catch Urine Culture - Final Culture exhibits no growth. 12/17/23 15:14 Urine, Random Legionella Antigen - Final 12/17/23 15:14 Urine, Random Streptococcus pneumoniae Antigen (M - Final D/C Instructions Discharge Diet: No restrictions Weight Bearing Status: Weight bearing as tolerated Call your doctor if you observe: Fever of 101 or Higher, Coldness, Increased Pain, Numbness or Tingling, Change in Color, Inability to urinate, Inability to have a bowel movement, Shortness of breath, Dizziness, Fainting spells, Swelling in the ankles, Chest pain, Prolonged hiccupping, Increased palpitations (irregular heartbeat) and Calf discomfort When: IN 2 WEEKS Meaningful Use Info Meaningful Use Meaningful Use Diagnoses (Choose all that apply): None applicable Ischemic Stroke Statin Dosing Therapy Reference: STATIN DOSE THERAPY REFERENCE: * Patients > 75 years receive moderate or high dose statin therapy. * Patients 75 years or YOUNGER should receive HIGH intensity statin dose unless contraindicated. You will be required to document reason for non-treatment if statin daily dose does not meet guidelines. HIGH DOSE STATIN THERAPY DAILY Atorvastatin > than or = to 40 mg Rosuvastatin > than or = to 20 mg Amlodipine + Atorvastatin > than or = to 2.5/40 mg Ezetimibe + Simvastatin 10/80 mg Simvastatin 80mg Discharge Plan Admission Admit Date/Time: 12/17/23 15:10 Primary Reason for Your Visit: Suspected pneumonia with acute COPD exacerbation Attending Provider: Fadi Lloyd Primary Care Provider: Jr Dodge Consulting Providers: Anirudh Thompson Discharge Orders/Prescriptions Prescriptions: New Mucinex DM 30-600 mg Tablet Extended Release 12 Hr 2 tab PO BID 7 Days Qty: 28 0RF melatonin 10 mg Tablet, Sublingual 10 mg PO QHS PRN (Reason: Insomnia) 30 Days Qty: 30 0RF prednisone 10 mg tablet 10 mg PO DAILY Qty: 30 0RF Rx Instructions: 40 mg for 3 days 30 mg for 3 days, 20 mg for 3 days,and 10 mg for 3 days levofloxacin 500 mg tablet 500 mg PO DAILY 5 Days Qty: 5 0RF Continued albuterol sulfate 2.5 MG/3 ML solution for nebulization 2.5 mg inhalation Q4H PRN Qty: 25 0RF Rx Instructions: Use q4 hours and PRN for wheezing amlodipine 5 mg tablet 5 mg PO DAILY Patient Comments: Take 1 tablet by mouth once daily. albuterol sulfate [ProAir HFA] 90 mcg/actuation HFA aerosol inhaler 1 inh inhalation Q6H PRN (Reason: shortness of breath or wheezing) vitamin E 268 mg (400 unit) capsule 268 mg PO DAILY garlic 1,000 mg capsule 1,000 mg PO DAILY alprazolam [Xanax] 0.25 mg tablet 0.25 mg PO QHS Patient Comments: takes 1.5 tabs prednisone 20 mg tablet 40 mg PO DAILY Qty: 14 0RF albuterol sulfate 2.5 mg /3 mL (0.083 %) solution for nebulization 2.5 mg inhalation Q4H PRN Qty: 25 0RF Rx Instructions: Use q4 hours and PRN for wheezing Referrals / Follow Up: Jr Dodge DO [Primary Care Provider] - Within 2 Weeks Donato Perez MD [Med Staff - Active Staff] - Within 2 Weeks Disposition Disposition (needs filled in before D/C Order can be placed): Home, Self Care Charges/Coding Visit Charges Inpatient E&M: 49524 Disch Hosp >30min
--- NOTE | 2023-12-20 14:30 | CASEMGMT ---
Addendum entered by Sona Garcia 12/20/23 15:58: Pt requested [facility] for DME. Referral sent to [facility] via [facility] at this time, requesting portable tanks only. Original Note: Pt qualified for 2L of oxygen with exertion. RN CM into pt room, pt transportation is here and pt ready to go home. Pt nurse in room as well as pt and another male family member. Pt does have his portable oxygen concentrator in the room and plans to use at home. Pt did agree to portable tanks to be delivered to the home but does not want a concentrator. Pt denies any further homegoing needs.
--- NOTE | 2023-12-20 15:37 | PHA.DC.MR.R ---
Pharmacy [place] Med Reconciliation Pharmacy Service has performed discharge medication reconciliation for this patient. The patient's discharge medication list was reviewed for discrepancies and discrepancies were resolved. Medications at Discharge Home Medications albuterol sulfate 2.5 mg/3 mL (0.083 %) solution for nebulization 2.5 mg (3 mL) inhalation Q4H PRN breathing #25 vials 10/19/16 amlodipine 5 mg tablet 5 mg PO DAILY blood pressure 03/06/21 prednisone 20 mg tablet 40 mg (2 x 20 mg) PO DAILY for breathing #14 tabs 10/29/23 albuterol sulfate 2.5 mg/3 mL (0.083 %) solution for nebulization 2.5 mg (3 mL) inhalation Q4H PRN #25 vials 12/11/23 albuterol sulfate 90 mcg/actuation aerosol inhaler (ProAir HFA) 1 inh inhalation Q6H PRN shortness of breath or wheezing 12/17/23 alprazolam 0.25 mg tablet (Xanax) 0.25 mg PO QHS anxiety 12/17/23 garlic 1,000 mg capsule 1,000 mg PO DAILY general health 12/17/23 vitamin E 268 mg (400 unit) capsule 268 mg PO DAILY general health 12/17/23 dextromethorphan-guaifenesin 30 mg-600 mg tablet extended [id number] hr (Mucinex DM) 2 tab PO BID 7 days #28 tabs 12/20/23 levofloxacin 500 mg tablet 500 mg PO DAILY 5 days #5 tabs 12/20/23 melatonin 10 mg sublingual tablet 10 mg PO QHS PRN Insomnia 30 days #30 tabs 12/20/23 prednisone 10 mg tablet 10 mg PO DAILY #30 tabs 12/20/23
== END 2023-12-20 15:35 | disposition home or self-care (01) | DRG 177 ==
LOC: ED 15:05 → MS3 15:24
PROVIDERS: Emergency Provider Emergency Medicine; PCP Family Medicine; Visit Provider Internal Medicine
DX: J15.61 Pneumonia due to Acinetobacter baumannii (principal); J96.21 Acute and chronic respiratory failure with hypoxia; E43 Unspecified severe protein-calorie malnutrition; J44.0 Chronic obstructive pulmonary disease with (acute) lower respiratory infection; J44.1 Chronic obstructive pulmonary disease with (acute) exacerbation; J15.69 Pneumonia due to other Gram-negative bacteria; I10 Essential (primary) hypertension; J13 Pneumonia due to Streptococcus pneumoniae; J10.08 Influenza due to other identified influenza virus with other specified pneumonia; B96.3 Hemophilus influenzae [H. influenzae] as the cause of diseases classified elsewhere; Z87.891 Personal history of nicotine dependence; Z79.899 Other long term (current) drug therapy; Z79.51 Long term (current) use of inhaled steroids; Z68.20 Body mass index [BMI] 20.0-20.9, adult
CPT/HCPCS: 71045; 80048; 80053; 81001; 83605; 85025; 85610; 85730; 87040; 87070; 87077; 87086; 87186; 87205; 87449; 93005; 94640; 94668; 97802; 99285; J7030; A4216

== ENCOUNTER → 2024-01-24 | Outpatient (CLI) | payer SELFPAY, OTHER ==
--- NOTE | 2024-01-24 12:54 | CT_ITS ---
STUDY: LOW DOSE CT LUNG CANCER SCREENING REASON FOR EXAM: Male, 73 years old. Personal history of nicotine dependence. Patient smoked 1 pack per day for 40 years. Former smoker. RADIATION DOSAGE (If Supplied By Facility): CTDIvol = ( 2.01 ) mGy, DLP = ( 68.46 ) mGycm TECHNIQUE: No contrast was administered. Low dose technique was utilized (average mAS-38 and kVp 120). 1.25 mm axial source images with a slice interval of 1.25-mm were reconstructed in lung windows. 2.5 mm axial source images with a slice interval of 2.5-mm were reconstructed in lung windows. 5.0 mm axial source images with a slice interval of 5.0-mm were reconstructed in soft tissue windows. COMPARISON: Comparison is made with prior examination of January 22, 2023. NODULES: Since prior study, there has been multiple new pulmonary nodules involving both lungs in both upper and lower lobes. There is a partially cavitated nodule in the anterior aspect of the left upper lobe measuring 2.97 x 2.5 cm. Multiple irregular opacities are also seen in the left lower lobe and lingular segment of the left upper lobe. Emphysema: Emphysematous changes with scarring in the left lung apex. Endobronchial lesion: Unremarkable. Aorta: Atherosclerotic plaque formation of the aortic arch. CORONARY ARTERIES: Coronary artery calcification is seen. Heart: Unremarkable Pulmonary artery: Unremarkable Mediastinal nodes: Calcified mediastinal lymph nodes. Other chest and abdominal findings: CT/Low Dose CT Lung Screening IMPRESSION: Lung-RADS category 4B - Chest CT with or without contrast, PET/CT and/or tissue sampling can be obtained depending on the probability of malignancy and comorbidities. IMPORTANT NOTES FOR USE: ACR Lung-RADS Version 1.1 Assessment Categories Release Date: 2018 Category: Coded 0-4 bases on nodule(s) with highest degree of suspicion. Negative screen is defined as categories 1 and 2; a positive screen is defined as categories 3 and 4. Category 3 and 4A nodules that are unchanged on interval CT should be coded as category 2, and individuals returned to screening in 12 months. Category 4X: Category 3 or 4 nodules with additional imaging findings that increase the suspicion of lung cancer, such as spiculation, GGN that doubles in size in 1 year, enlarged lymph notes, etc. Category Modifiers: S (significant finding unrelated to lung cancer) Electronically Signed: Misbah Briscoe MD at 14:20 EDT ,
== END | disposition home or self-care (01) ==
LOC: CT 12:54
PROVIDERS: PCP Family Medicine; Referring Provider Internal Medicine Pulmonary Disease; Visit Provider Internal Medicine Pulmonary Disease
DX: Z87.891 Personal history of nicotine dependence (principal)
CPT/HCPCS: 71271

== ENCOUNTER 2024-03-02 08:20 | Day surgery (SDC) | payer OTHER, SELFPAY ==
[2024-02-28 16:11] LABS: Hemoglobin 12.2 g/dL (13.0-16.5); Mean Corp Hgb Conc 32.1 g/dL (32-36); Mean Corpuscular Hgb 26.9 pg (27.0-32.0); Mean Corpuscular Volume 83.9 fL (80-94); Mean Platelet Vol. 9.5 fl (6.2-12.0); Platelet Count 497 K/mm3 (150-450); RBC Distribution Width SD 48.7 fl (35.1-43.9); Red Blood Count 4.53 M/mm3 (4.6-6.2)
[2024-02-28 16:43] LABS: Anion Gap 6 (5-15); BUN 34 mg/dL (7-18); BUN/Creat Ratio 35.1 RATIO (10-20); Calcium,Total 9.6 mg/dL (8.5-10.1); Chloride 100 mmol/L (98-107); Creatinine, Serum 0.97 mg/dL (0.70-1.30); EST Glomerular Filtration Rate 81 mL/min (>60); Est Glom Filt Rate - Afr Amer 98 mL/min (>60); Glucose 110 mg/dL (74-106); Sodium Level 137 mmol/L (136-145)
[2024-03-02 07:44] VITALS: BMI 20.8
--- NOTE | 2024-03-02 11:44 | ECHOD_ITS ---
Reason For Study: Aortic stenosis Procedure This was a 2D Doppler, Color Flow transthoracic echocardiogram. Exam done portable in the laborer aquatic life holding area. Left Ventricle Normal LV size. The left ventricular ejection fraction is 65 %. Stage 1 diastolic dysfunction. No regional wall motion abnormalities noted. Right Ventricle Normal RV size. Normal systolic function. Atria Normal left atrium. Normal right atrium. Mitral Valve Mild focal mitral valve calcification. Mild (1+) mitral valve insufficiency. Tricuspid Valve Normal tricuspid valve. Mild (1+) tricuspid valve insufficiency. Pulmonary artery systolic pressure is 28 mmHg. Aortic Valve Trisinus/trileaflet aortic valve. Moderate focal aortic valve calcification. Peak aortic valve gradient 24 mmHg. Mean aortic valve gradient 13.5 mmHg. Mild to moderate aortic stenosis. Pulmonic Valve Normal pulmonic valve. Mild (1+) pulmonic valve insufficiency. Great Vessels Calcified aortic root. The pulmonary artery is normal size. Inferior vena cava collapse with respiration. Pericardium/Pleural No pericardial effusion. MMode/2D Measurements & Calculations LVIDd: 3.8 cm IVSd: 1.3 cm LVOT diam: 2.2 cm LVIDs: 2.6 cm LVPWd: 0.98 cm LVOT area: 3.8 cm2 RVDd: 3.6 cm FS: 31.5 % Ao root diam: 3.2 cm LAV(MOD-bp): 49.8 ml LVAd ap4: 24.4 cm2 LAV(MOD-bp) Indexed: 30.0 ml/m2 LVLd ap4: 7.9 cm LAV(MOD-sp2): 44.0 ml EDV(MOD-sp4): 63.2 ml LAV(MOD-sp4): 52.9 ml EDV(sp4-el): 64.2 ml LVAs ap4: 13.1 cm2 LVLs ap4: 7.1 cm ESV(MOD-sp4): 20.7 ml ESV(sp4-el): 20.7 ml EF(MOD-sp4): 67.2 % EF(sp4-el): 67.8 % LVAd ap2: 29.1 cm2 SV(MOD-sp4): 42.5 ml SV(MOD-sp2): 56.9 ml LVLd ap2: 8.3 cm EDV(MOD-sp2): 85.7 ml EDV(sp2-el): 87.2 ml LVAs ap2: 14.9 cm2 LVLs ap2: 6.7 cm ESV(MOD-sp2): 28.8 ml ESV(sp2-el): 28.0 ml EF(MOD-sp2): 66.4 % SV(sp4-el): 43.5 ml LA dimension(2D): 3.2 cm LA A4 area: 18.4 cm2 RA A4 area: 15.0 cm2 TAPSE: 2.0 cm Time Measurements MV dec time: 0.29 sec Doppler Measurements & Calculations MV E max connor: 102.1 cm/sec Lat Peak E' Connor: 5.9 cm/sec Med Peak E' Connor: 6.7 cm/sec MV A max connor: 115.0 cm/sec E/E' lat: 17.4 E/E' med: 15.2 MV E/A: 0.89 Ao V2 max: 244.5 cm/sec LV V1 max: 101.9 cm/sec MV dec slope: 351.6 cm/sec2 Ao max P.9 mmHg LV V1 max P.2 mmHg Ao V2 mean: 174.5 cm/sec LV V1 mean P.0 mmHg Ao mean P.5 mmHg LV V1 mean: 65.3 cm/sec Ao V2 VTI: 60.4 cm LV V1 VTI: 23.7 cm AV (velocity ratio): 0.39 ARIK(I,D): 1.5 cm2 ARIK(V,D): 1.6 cm2 SV(LVOT): 89.4 ml PA V2 max: 79.7 cm/sec TR max connor: 249.8 cm/sec TR max P.0 mmHg ECHO/Echo Complete Interpretation Summary Normal LV size. The left ventricular ejection fraction is 65 %. Stage 1 diastolic dysfunction. Mild (1+) tricuspid valve insufficiency. Moderate focal aortic valve calcification. Mean aortic valve gradient 13.5 mmHg. Mild to moderate aortic stenosis. Ordering Physician: Eh Castellon Referring Physician: Jr Dodge Performed By: Dagmar Paulino RDCS
--- NOTE | 2024-03-02 13:21 | CL.D_ITS ---
Patient Name: BRANDON QUINN Study Date: 03/02/2024 Performing: Eh Castellon MD Ht: 66 inches 167.64 cm : 1950 Wt: 128.99 lbs 58.51 kg Age: 73 Gender: male BSA: 1.66 PROCEDURE(S) PERFORMED DC01-([id number])LHC/COR/LV CLINICAL PROFILE AND INDICATIONS Indications: Suspected CAD Heart Failure: None Stress/Imaging Stress/Image Study Performed: No CAD Presentations: Stable angina. CONCLUSIONS Non obstructive coronary arteries RECOMMENDATIONS Mild to moderate aortic stenosis coronary calcification no high-grade obstruction Will order CTangio to visualize LM ostium DESCRIPTION OF PROCEDURE The patient arrived to the procedure lab. The risks and benefits of the procedure as well as a full description of our services here and current unavailability of surgical backup were fully explained to the patient and/or their significant other prior to the catheterization. The Timeout was completed, verifying the correct patient and procedure. The patient's procedural site was prepped and draped in the usual fashion. Local anesthetic was given subcutaneously to right radial region with Lidocaine 2%. Using a modified Seldinger technique, arterial access was obtained via the right radial artery, a 6Fr sheath was inserted. Left Coronary Artery selective angiography was performed in multiple views using a 5 Fr. 4.0 Emery catheter. Right Coronary Artery selective angiography was then performed in multiple views using a 5 Fr. 4.0 Emery catheter. Left Ventriculography was performed in TEJEDA projection using a 5 Fr. Pigtail catheter. LV to AO pullback pressures were then recorded.The arterial sheath was pulled and a TR Band was applied for hemostasis CORONARY ANGIOGRAPHY DOMINANCE: Right Dominant LEFT HEART ASSESSMENT Left Ventricular Ejection Fraction: by LV Gram 70 % Normal LV wall motion LEFT MAIN: Cleft like lesion noted in the proximal left main coronary artery with no significant other stenosis noted and no dampening present LEFT ANTERIOR DESCENDING ARTERY: Mild calcification, Mild luminal irregularities CIRCUMFLEX ARTERY: Mild calcification, Mild luminal irregularities RIGHT CORONARY ARTERY: Moderate calcification Mild luminal irregularities VALVE FINDINGS: Aortic Valve Calcification - mild COMPLICATIONS No Complications PROCEDURE MEDICATIONS Versed 1 mg IV Fentanyl 50 mcg IV Oxygen: 2 L/min via nasal cannula Heparin given IA 03/02/2024 09:58:21 Verapamil 2.5mg, Ntg 200mcgs, 2000 units of Heparin given IA 03/02/2024 09:58:21 SUMMARY OF HEMODYNAMIC DATA Time AIR REST ECG 08:47:50 AO 133/64 (91) SA 10:17:22 LV 125/0, 11 10:25:26 LV 77/-1, 6 10:25:34 LV 104/13, 16 10:26:49 LV 109/0, 15 10:27:20 LVp 117/-2, 13 10:27:29 AOp 117/56 (81) 10:27:36 Signed By Eh Castellon MD On 03/02/2024 13:20:57 Eh Castellon MD
== END 2024-03-02 13:25 | disposition home or self-care (01) ==
PROVIDERS: PCP Family Medicine; Referring Provider Internal Medicine Cardiovascular Disease; Visit Provider Internal Medicine Cardiovascular Disease
DX: I25.118 Atherosclerotic heart disease of native coronary artery with other forms of angina pectoris (principal); J44.9 Chronic obstructive pulmonary disease, unspecified; Z79.899 Other long term (current) drug therapy; Z79.82 Long term (current) use of aspirin; Z87.891 Personal history of nicotine dependence; R07.9 Chest pain, unspecified; R93.1 Abnormal findings on diagnostic imaging of heart and coronary circulation; I10 Essential (primary) hypertension; I35.0 Nonrheumatic aortic (valve) stenosis
CPT/HCPCS: 36415; 80048; 85027; 93306; 93458; 99152; 99153; J7040; Q9967; C1769; C1894

== ENCOUNTER 2024-05-28 07:30 | Emergency (ER) | payer OTHER, SELFPAY ==
[2024-05-28 07:31] VITALS: BP 138/79; PULSE 80; RESP 20; TEMP 36.8; O2SAT 92; BMI 19.7
--- NOTE | 2024-05-28 07:35 | ED.VIS.DYS ---
HPI History of Present Illness Chief Complaint: Shortness of Breath Informant: patient Onset/Context/Timing Onset: Days (2) Context: gradual Timing: Continuous Quality: Positive for Dyspnea on exertion and Wheezing Worsened by: Exertion Relieved by: - (Lasix, Xanax) Associated Symptoms cough and green sputum; Negative for rhinorrhea, post nasal drip, ear pain, fever, sore throat, chills, sweats, clear sputum, white sputum or yellow sputum Chest Pain: Positive for Intermittent and Dull Narrative Narrative: Patient presents with shortness of breath that has been getting worse over the past 2 days. Patient states it is gradually getting worse. Patient states he had a lung biopsy 3 days ago. Patient states that he was doing fine after that until the next afternoon. Patient states his breathing is gradually gotten worse. Patient states his breathing is worse with any exertion. Patient states he feels himself wheezing. Patient states he took a dose of Lasix yesterday which seemed to help a little bit. Patient states he also took a dose of Xanax last night which seemed to help somewhat. Patient admits to a cough with some green sputum. Patient admits to some intermittent pain in his chest and abdomen. Patient describes it as dull. Patient denies any fevers or chills. PE Risk Factors: Negative for Cancer, OCP + Smoking + > 35, Recent immobilization or Recent travel [facility] Medical History Aortic stenosis Elevated coronary artery calcium score Urinary retention Heart murmur Anxiety On home oxygen therapy Acute hypoxemic respiratory failure Pneumonia COPD (chronic obstructive pulmonary disease) [place] (hard of hearing) Hypertension Home Medications ?Medication ?Instructions ?Recorded ?Last Taken ?Type amlodipine 5 mg tablet 5 mg PO DAILY blood pressure 03/06/21 03/02/24 History albuterol sulfate 2.5 mg/3 mL 2.5 mg (3 mL) inhalation Q4H PRN 12/11/23 Unknown Rx (0.083 %) solution for nebulization #25 vials albuterol sulfate 90 mcg/actuation 1 inh inhalation Q6H PRN shortness 12/17/23 Unknown History aerosol inhaler (ProAir HFA) of breath or wheezing garlic 1,000 mg capsule 1,000 mg PO DAILY general health 12/17/23 Unknown History vitamin E 268 mg (400 unit) capsule 268 mg PO DAILY general health 12/17/23 Unknown History alprazolam 0.25 mg tablet (Xanax) 0.375 mg PO QHS anxiety 02/28/24 Unknown History dextromethorphan-guaifenesin 30 2 tab PO BID PRN cough 02/28/24 Unknown History mg-600 mg tablet extended nyivawf15 hr (Mucinex DM) fluticasone fur. 100 mcg-umeclid 1 inh inhalation DAILY 02/28/24 Unknown History 62.5 mcg-vilant 25 mcg inhalat.powder (Trelegy Ellipta) aspirin 81 mg tablet,delayed 81 mg PO DAILY #90 tabs 03/02/24 Unknown Rx release (Adult Aspirin Regimen) atorvastatin 20 mg tablet 20 mg PO DAILY #90 tabs 03/02/24 Unknown Rx prednisone 20 mg tablet 40 mg PO DAILY 03/02/24 03/02/24 History Allergy/AdvReac Type Severity Reaction Status Date / Time No Known Allergies Allergy Verified 05/28/24 07:31 Surgical History Hx of hernia repair History of replacement of both shoulder joints Social History Smoking Status: Former smoker ROS ROS ED Constitutional Constitutional ED: Denies chills or fever(s) Eyes Eyes: Denies blurry vision or change in vision ENT ENT ED: Denies rhinorrhea or sore throat Cardiovascular Cardiovascular: Reports chest pain; Denies palpitations Respiratory/Chest Respiratory/Chest: Reports cough and dyspnea Gastrointestinal Gastrointestinal: Reports abdominal pain; Denies nausea or vomiting Genitourinary Genitourinary ED: Denies dysuria or hematuria Musculoskeletal Musculoskeletal: Denies back pain or neck pain Integumentary Denies abscess or rash Neurologic Neurologic: Denies headache(s) or weakness Allergic/Immunologic Allergic/Immunologic ED: Denies mouth swelling or urticaria EXAM Physical Exam Const Vital Signs: 05/28/24 07:31 05/28/24 08:02 05/28/24 08:06 Temperature 98.2 F Temperature Source Oral Pulse Rate 80 71 Respiratory Rate 20 H 16 Respiratory Effort Respiratory Depth Respiratory Pattern Blood Pressure 138/79 H Blood Pressure Mean 98 Pulse Ox 92 Oxygen Delivery Method Room Air Room Air 05/28/24 08:14 05/28/24 09:43 Temperature 97.6 F L Temperature Source Oral Pulse Rate 68 Respiratory Rate 16 Respiratory Effort Normal Non-Labored Respiratory Depth Normal Respiratory Pattern Normal Blood Pressure 173/92 H Blood Pressure Mean 119 Pulse Ox 94 Oxygen Delivery Method Room Air Positive well nourished and well developed General Appearance ED: well developed and NAD HEENT Reports moist mucous membranes atraumatic Neck supple and no JVD General: Negative for tenderness Resp normal respiratory effort Auscultation: wheezes expiratory wheezes and throughout and diminished lung sounds left Cardio regular rate and regular rhythm GI non-tender and non-distended Palpation: soft Extremity normal to inspection General Extremety ED: Negative for edema or tenderness General Extremity: Negative for edema Neuro oriented x3 and CN's II-XII intact bilaterally [place] Coma Scale: document GCS findings Spontaneous Obeys Commands Oriented 15 Sensorium / Orientation: alert Psych mental status grossly normal MDM MDM MDM Narrative Medical decision making narrative: Differential diagnosis includes pneumothorax, pneumonia, congestive heart failure, COPD exacerbation, cardiac dysrhythmia, cardiac ischemia, and anxiety. EKG will be obtained to assess for cardiac dysrhythmia and cardiac ischemia. Chest x-ray will be obtained to assess for pneumonia and pneumothorax. CBC will be obtained to assess for leukocytosis and anemia. Basic metabolic profile will be obtained to assess for electrolyte abnormality and renal function. High-sensitivity troponin will be obtained to assess for cardiac ischemia. Lab Data Attestation: I reviewed the patient's lab results. Lab results narrative: CBC was reviewed. There is a slight leukocytosis of 11.8. The remainder is within normal limits. Basic metabolic profile was reviewed and was within normal limits. High-sensitivity troponin was reviewed and was normal. Labs: Laboratory Results - last 24 hr 05/28/24 08:00 WBC 11.8 H RBC 5.27 Hgb 14.4 Hct 44.9 MCV 85.2 MCH 27.3 MCHC 32.1 RDW Std Deviation 46.5 H RDW Coeff of Sherri 14.9 H Plt Count 294 MPV 9.6 Immature Gran % (Auto) 0.400 Neut % (Auto) 69.1 Lymph % (Auto) 11.0 L [place] % (Auto) 15.1 H Eos % (Auto) 3.6 Baso % (Auto) 0.8 Absolute Neuts (auto) 8.1 H Absolute Lymphs (auto) 1.30 Nucleated RBC % 0 Sodium 138 Potassium 3.8 Chloride 100 Carbon Dioxide 34.0 H Anion Gap 3 L BUN 19 H Creatinine 0.86 Estim Creat Clear Calc 59.88 Est GFR (MDRD) Af Amer 112 Est GFR (MDRD) Non-Af 92 BUN/Creatinine Ratio 22.0 H Glucose 93 Calcium 9.3 Troponin I High Sens 10 Radiography Chest X-Ray - ED: 2 View, Read by ED Physician, Read by Radiologist and Chronic Changes Diagnostic Testing: Clinical Impression(s) from Imaging Studies Chest X-Ray 05/28/24 07:53 IMPRESSION: 1. At least 3 pulmonary nodules in each lung or some for pulmonary metastatic disease. The dominant pulmonary nodule is adjacent the left hilum measuring 2 cm. 2. Mild COPD with right basilar fibrosis. 3. No acute cardiopulmonary pathology. RECOMMENDATION: HR CT chest for further evaluation. Electronically Signed: Dean Dmaian MD at 8:39 EDT , Chest CTA 05/28/24 09:22 IMPRESSION: 1. No CTA evidence of pulmonary thromboemboli, thoracic aortic aneurysm or dissection. 2. Decreasing size and number of multiple pulmonary nodules in both lungs including the cavitary lesion which previously extended into the left anterior chest wall. They are presumably inflammatory/infectious nodules. 3. Increasing size of right posterior epipericardial nodule with smooth convex margin measuring 3.7 x 1.8 cm, previously 3.2 x 1.4 cm. Etiology is unknown. Whole body PET/CT scan may be helpful for further evaluation. Electronically Signed: Dean Damian MD at 10:14 EDT , PA and lateral chest x-ray was obtained. There are 2 views. On my independent interpretation, there is chronic changes. There is questionable pulmonary nodules versus mass bilaterally. Radiologist also interpreted the x-ray and recommended CT scan for further evaluation. Because of the radiologist recommendation, CTA of the chest was obtained. There is no pulmonary emboli. There is no thoracic aneurysm or dissection. There are decreasing size and number of pulmonary nodules in both lungs. There is an increasing size of the right posterior epicardial nodule. There is no acute process noted. This was interpreted by the radiologist and was also independently reviewed by myself. EKG Initial EKG: Attestation: I personally reviewed and interpreted this EKG as follows: Interpretation: Sinus Rhythm (72) and No Acute Injury Pattern Comments: EKG was obtained. On my independent interpretation, it showed a normal sinus rhythm with a rate of 72. SC interval, QRS interval, and QTc intervals were all normal. [place] was normal. There are no acute ST or T wave changes. Treatment and Re-Evaluation :: Patient was given a DuoNeb aerosol here. Patient was feeling better after this. Patient was advised of his findings. Patient was instructed to continue his inhalers at home as previously prescribed. Patient was instructed to follow-up with his primary care physician in 5 to 7 days. Patient understood and was agreeable with the plan. All questions were answered. Discharge Plan Triage Chief Complaint: Shortness of Breath ED Provider: Anirudh Sierra Dx/Rx/DC Orders Clinical Impression: Acute exacerbation of chronic obstructive pulmonary disease, Hypertension, Heart murmur Instructions: ED COPD Flare Prescriptions: No Action Trelegy Ellipta 100-62.5-25 mcg blister with device 1 inh inhalation DAILY Mucinex DM 30-600 mg tablet extended release 12 hr 2 tab PO BID PRN (Reason: cough) amlodipine 5 mg tablet 5 mg PO DAILY Patient Comments: Take 1 tablet by mouth once daily. albuterol sulfate [ProAir HFA] 90 mcg/actuation HFA aerosol inhaler 1 inh inhalation Q6H PRN (Reason: shortness of breath or wheezing) vitamin E 268 mg (400 unit) capsule 268 mg PO DAILY garlic 1,000 mg capsule 1,000 mg PO DAILY alprazolam [Xanax] 0.25 mg tablet 0.375 mg PO QHS Patient Comments: takes 1.5 tabs albuterol sulfate 2.5 mg /3 mL (0.083 %) solution for nebulization 2.5 mg inhalation Q4H PRN Qty: 25 0RF Rx Instructions: Use q4 hours and PRN for wheezing prednisone 20 mg tablet 40 mg PO DAILY atorvastatin 20 mg tablet 20 mg PO DAILY Qty: 90 3RF aspirin [Adult Aspirin Regimen] 81 mg tablet,delayed release (DR/EC) 81 mg PO DAILY Qty: 90 3RF Primary Care Provider: Jr Dodge Referrals: Jr Dodge DO [Primary Care Provider] - 5-7 Days Print Language: Yakut Disposition Disposition: Home, Self Care
--- NOTE | 2024-05-28 07:53 | EKG12_ITS ---
Test Reason : SOB Blood Pressure : / mmHG Vent. Rate : 072 BPM Atrial Rate : 072 BPM P-R Int : 134 ms QRS Dur : 080 ms QT Int : 382 ms P-R-T Axes : 083 074 069 degrees QTc Int : 418 ms Normal sinus rhythm Normal ECG Confirmed by MIGUELINA JOHNS, RUSTY ([id number]), general expeditor STEFAN POLLARD ([id number]) on 05/29/2024 1:57:00 PM Referred By: LIVAN Confirmed By:RUSTY MCINTYRE MD
--- NOTE | 2024-05-28 07:53 | RAD_ITS ---
EXAM: XR CHEST, 2 VIEWS CLINICAL INDICATION: Cough TECHNIQUE: Frontal and lateral views of the chest. COMPARISON: 12/17/2023. FINDINGS: LUNGS AND PLEURAL SPACES: Multiple pulmonary nodules in both lungs, at least 3 in each lung. The dominant pulmonary nodule is adjacent the left hilum measuring 2 cm. Mild pulmonary hyperinflation and flattening of the hemidiaphragms. Mild right basilar fibrosis is unchanged. No pneumothorax. No effusion. HEART: Unremarkable. Cardiac silhouette not enlarged. MEDIASTINUM: Central airways and mediastinal contour are unremarkable. BONES/JOINTS: Unremarkable. No acute fracture. SOFT TISSUES: Unremarkable. LYMPH NODES: Calcified nodes in the left AP window. Smaller calcified node in the left hilum adjacent the left AP window. RAD/Chest PA and Lateral IMPRESSION: 1. At least 3 pulmonary nodules in each lung or some for pulmonary metastatic disease. The dominant pulmonary nodule is adjacent the left hilum measuring 2 cm. 2. Mild COPD with right basilar fibrosis. 3. No acute cardiopulmonary pathology. RECOMMENDATION: HR CT chest for further evaluation. Electronically Signed: Dean Damian MD at 8:39 EDT ,
[2024-05-28 08:05] LABS: Absolute Neutrophil Count 8.1 X10^3/uL (2.0-7.7); Basophil# 0.09 X10^3/uL; Basophil% 0.8 % (0-1); Eosinophil# 0.42 X10^3/uL; Eosinophils% 3.6 % (0-5); Hematocrit 44.9 % (40-54); Hemoglobin 14.4 g/dL (13.0-16.5); Mean Corp Hgb Conc 32.1 g/dL (32-36); Mean Corpuscular Hgb 27.3 pg (27.0-32.0); Mean Corpuscular Volume 85.2 fL (80-94); Mean Platelet Vol. 9.6 fl (6.2-12.0); Monocyte# 1.78 X10^3/uL; Monocyte% 15.1 % (0-10); NRBC Flagged by Analyzer 0 % (0-5); Neutrophil # 8.13 X10^3/uL (2.7-7.7); Neutrophil % 69.1 % (47-70); POSITIVE DIFFERENTIAL YES; Platelet Count 294 K/mm3 (150-450); RBC Distribution Width CV 14.9 % (11.6-14.6); RBC Distribution Width SD 46.5 fl (35.1-43.9); Red Blood Count 5.27 M/mm3 (4.6-6.2); White Blood Count 11.8 K/mm3 (4.4-11.0)
[2024-05-28] MEDS: Ipratropium/Albuterol Sulfate 3 ML AMPUL.NEB INHALATION (08:05)
[2024-05-28 08:06] VITALS: PULSE 71; RESP 16
[2024-05-28 08:08] LABS: Differential Indicated SCAN CRITERIA MET
[2024-05-28 08:36] LABS: Anion Gap 3 (5-15); BUN 19 mg/dL (7-18); Calcium,Total 9.3 mg/dL (8.5-10.1); Chloride 100 mmol/L (98-107); Creatinine, Serum 0.86 mg/dL (0.70-1.30); EST Glomerular Filtration Rate 92 mL/min (>60); Est Glom Filt Rate - Afr Amer 112 mL/min (>60); Estimated Creatinine Clearance 59.88 ml/min; Glucose 93 mg/dL (74-106); Potassium 3.8 mmol/L (3.5-5.1); Sodium Level 138 mmol/L (136-145); Troponin-I HS 10 pg/mL (3.0-78.0)
--- NOTE | 2024-05-28 09:22 | CT_ITS ---
EXAM: CT ANGIOGRAPHY CHEST WITHOUT AND WITH INTRAVENOUS CONTRAST CLINICAL INDICATION: Lung mass TECHNIQUE: Helically acquired angiography images were obtained of the chest without and with intravenous contrast. This CT exam was performed using one or more of the following dose reduction techniques: automated exposure control, adjustment of the mA and/or kV according to patient size, and/or use of iterative reconstruction technique. MIP reconstructed images were created and reviewed. CONTRAST: IV 100mL [id number] RADIATION DOSE: CTDIvol = 5.68 mGy, DLP = 194.23 mGy-cm COMPARISON: CT lung screening without contrast 01/24/2024. Shortness of breath since Saturday. Status post lung biopsy Saturday. FINDINGS: PULMONARY ARTERIES: Unremarkable. Normal in caliber. No evidence of pulmonary embolism. AORTA: Unremarkable. Normal in caliber. No evidence of dissection. GREAT VESSELS OF AORTIC ARCH: Unremarkable. Normal in caliber. No evidence of dissection. LUNGS AND PLEURAL SPACES: 3.3 x 1.9 cm perifissural cavitary lesion in the anterior segment of the left upper lobe, previously 4.8 x 2.7 cm in the sagittal projection the axial projection, this measures 3.3 x 2.5 cm, previously 4.4 x 3.3 cm. This mass has retracted from the anterior chest wall. There are spiculated borders of this cavitary lesion. There is collapse of the long irregular linear tail extending from the caudal margin of the spiculated cavitary lesion. There is also collapse and flattening of the prominent nodule with a caudal tail in the left anterior peripheral lung base. Several pulmonary nodules in the left lung have decreased in size. The perifissural nodule in the left mid peripheral lung zone has also decreased in size. Multiple pulmonary nodules in the right lung have also decreased in size. Right posterior epipericardial nodule with smooth convex margin measures 3.7 x 1.8 cm, previously 3.2 x 1.4 cm. This has increased in size. Pulmonary hyperinflation with flattening of the hemidiaphragms. No pleural effusion or thickening. No pneumothorax. HEART: Unremarkable. Heart size is normal. No pericardial effusion. No significant coronary artery calcifications. MEDIASTINUM: Unremarkable. No mediastinal or hilar adenopathy. Esophagus is unremarkable. No hiatal hernia. THYROID: Unremarkable. No thyroid lesions. BONES/JOINTS: Unremarkable. No suspicious lytic or blastic abnormality. CT/CTA Chest W/WO Contrast IMPRESSION: 1. No CTA evidence of pulmonary thromboemboli, thoracic aortic aneurysm or dissection. 2. Decreasing size and number of multiple pulmonary nodules in both lungs including the cavitary lesion which previously extended into the left anterior chest wall. They are presumably inflammatory/infectious nodules. 3. Increasing size of right posterior epipericardial nodule with smooth convex margin measuring 3.7 x 1.8 cm, previously 3.2 x 1.4 cm. Etiology is unknown. Whole body PET/CT scan may be helpful for further evaluation. Electronically Signed: Dean Damian MD at 10:14 EDT ,
[2024-05-28 09:43] VITALS: BP 173/92; PULSE 68; RESP 16; TEMP 36.4; O2SAT 94
[2024-06-01 13:52] LABS: Pathologist Review Reviewed
== END 2024-05-28 10:40 | disposition home or self-care (01) ==
PROVIDERS: Emergency Provider Emergency Medicine; PCP Family Medicine; Visit Provider Emergency Medicine
DX: J44.1 Chronic obstructive pulmonary disease with (acute) exacerbation (principal); Z87.891 Personal history of nicotine dependence; R01.1 Cardiac murmur, unspecified; I10 Essential (primary) hypertension; F41.9 Anxiety disorder, unspecified; Z79.899 Other long term (current) drug therapy; Z96.611 Presence of right artificial shoulder joint; Z96.612 Presence of left artificial shoulder joint
CPT/HCPCS: 71046; 71275; 80048; 84484; 85025; 93005; 94640; 99284; Q9967; A4216

== ENCOUNTER 2024-12-01 06:20 | Inpatient (IN) | payer OTHER, SELFPAY ==
[2024-12-01] VITALS (17 sets, daily range): BP systolic 119–192; BP diastolic 67–91; PULSE 75–90; RESP 16–27; TEMP 36.4–37.2; O2SAT 78–100; BMI 20.2
[2024-12-01] MEDS: MethylPREDNISolone 125 MG/2 ML Vial IV (06:44)
[2024-12-01 06:54] LABS: Absolute Neutrophil Count 12.1 X10^3/uL (2.0-7.7); Basophil# 0.02 X10^3/uL; Basophil% 0.2 % (0-1); Hematocrit 41.4 % (40-54); Hemoglobin 13.7 g/dL (13.0-16.5); Mean Corp Hgb Conc 33.1 g/dL (32-36); Mean Corpuscular Hgb 28.9 pg (27.0-32.0); Mean Corpuscular Volume 87.3 fL (80-94); Mean Platelet Vol. 9.3 fl (6.2-12.0); Monocyte# 0.68 X10^3/uL; Monocyte% 5.1 % (0-10); NRBC Flagged by Analyzer 0 % (0-5); Neutrophil # 12.09 X10^3/uL (2.7-7.7); Neutrophil % 91.1 % (47-70); POSITIVE DIFFERENTIAL YES; Platelet Count 313 K/mm3 (150-450); RBC Distribution Width CV 14.1 % (11.6-14.6); RBC Distribution Width SD 45.2 fl (35.1-43.9); Red Blood Count 4.74 M/mm3 (4.6-6.2); White Blood Count 13.3 K/mm3 (4.4-11.0)
[2024-12-01] MEDS: Ipratropium/Albuterol Sulfate 3 ML AMPUL.NEB INHALATION ×5 (06:54→22:56)
[2024-12-01] MEDS: Albuterol 2.5 MG/3 ML VIAL.NEB. INHALATION (06:54)
--- NOTE | 2024-12-01 07:11 | CPS ---
Rt placed pt back on RA at this time. RN aware.
--- NOTE | 2024-12-01 07:22 | RAD_ITS ---
PROCEDURE: CHEST PA AND LATERAL 12/01/2024 REASON FOR EXAM: COUGH TECHNIQUE: Frontal and lateral views of the chest. COMPARISON: None. FINDINGS: The lungs are hyperlucent and hyperexpanded due to COPD type changes. There are patchy infiltrates seen within the right lower lung zone and left midlung zone. This may represent areas of focal scarring versus infectious process. Follow-up until resolution is recommended. No pneumothorax identified. No acutely displaced rib fracture identified. RAD/Chest PA and Lateral IMPRESSION: Findings consistent with pulmonary emphysema/COPD. Patchy infiltrates at the right lower and left mid lung zones may represent con fluent areas of scarring versus infectious process. Recommend follow-up until resolution. Reading Location: [facility]
[2024-12-01 07:34] LABS: Anion Gap 12 (5-15); BUN 17 mg/dL (4-19); BUN/Creat Ratio 18.4 RATIO (10-20); Calcium,Total 9.4 mg/dL (7.6-11.0); Carbon Dioxide 26.8 mmol/L (21.0-32.0); Chloride 100 mmol/L (98-108); Creatinine, Serum 0.93 mg/dL (0.70-1.20); EST Glomerular Filtration Rate 87 (>60); Estimated Creatinine Clearance 57.13 ml/min (50-250); Glucose 229 mg/dL (70-99); Potassium 4.2 mmol/L (3.3-5.1); Sodium Level 139 mmol/L (133-145)
--- NOTE | 2024-12-01 07:49 | EX.ED.DYSGE1 ---
HPI History of Present Illness Chief Complaint: Shortness of Breath Informant: patient and spouse/S.O. Narrative Narrative: Patient is a 73-year-old male with history of hypertension and COPD. He states that he quit smoking roughly 20 years ago. He reports he has a oxygen concentrator at home but does not need to wear this as his pulse ox is typically mid 90s on room air. However in the last 1 to 2 days he has been having increased cough and shortness of breath. He states that it is worse with exertion. He denies any fevers or known sick contacts but with his shortness of breath persisting he has concern for potential infection and therefore comes in for evaluation. Patient does state the last time he felt this way he needed admitted secondary to pneumonia and influenza which was roughly 1 year ago [facility] Medical History Aortic stenosis Elevated coronary artery calcium score Urinary retention Heart murmur Anxiety On home oxygen therapy Acute hypoxemic respiratory failure Pneumonia COPD (chronic obstructive pulmonary disease) [place] (hard of hearing) Hypertension Home Medications ?Medication ?Instructions ?Recorded ?Last Taken ?Type amlodipine 5 mg tablet 5 mg PO DAILY blood pressure 03/06/21 03/02/24 History albuterol sulfate 2.5 mg/3 mL 2.5 mg (3 mL) inhalation Q4H PRN 12/11/23 Unknown Rx (0.083 %) solution for nebulization #25 vials garlic 1,000 mg capsule 1,000 mg PO DAILY general health 12/17/23 Unknown History vitamin E 268 mg (400 unit) capsule 268 mg PO DAILY general health 12/17/23 Unknown History alprazolam 0.25 mg tablet (Xanax) 0.375 mg PO QHS anxiety 02/28/24 Unknown History fluticasone fur. 100 mcg-umeclid 1 inh inhalation DAILY 02/28/24 Unknown History 62.5 mcg-vilant 25 mcg inhalat.powder (Trelegy Ellipta) prednisone 20 mg tablet 40 mg PO DAILY PRN sob 03/02/24 03/02/24 History albuterol sulfate 90 mcg/actuation 1 inh inhalation Q6H PRN shortness 12/01/24 Unknown History aerosol inhaler of breath or wheezing Allergy/AdvReac Type Severity Reaction Status Date / Time No Known Allergies Allergy Verified 12/01/24 06:21 Surgical History Hx of hernia repair History of replacement of both shoulder joints Social History Smoking Status: Former smoker ROS ROS ED Constitutional Constitutional ED: Denies chills or fever(s) Eyes Eyes: Denies blurry vision or change in vision ENT ENT ED: Denies rhinorrhea or sore throat Cardiovascular Cardiovascular: Denies chest pain Respiratory/Chest Respiratory/Chest: Reports cough, dyspnea and dyspnea on exertion Gastrointestinal Gastrointestinal: Denies abdominal pain, diarrhea, nausea or vomiting Genitourinary Genitourinary ED: Denies dysuria Musculoskeletal Musculoskeletal: Denies back pain or myalgias Integumentary Denies rash Neurologic Neurologic: Denies headache(s) Hematologic/Lymphatic Hematologic/Lymphatic: Denies easy bleeding or easy bruising Allergic/Immunologic Allergic/Immunologic ED: Denies mouth swelling or tongue swelling EXAM Physical Exam Const Vital Signs: 12/01/24 06:21 12/01/24 06:26 12/01/24 06:27 Temperature 97.8 F 97.8 F Temperature Source Oral Oral Pulse Rate 89 83 83 Respiratory Rate 22 H 27 H Respiratory Effort Respiratory Pattern Blood Pressure 192/91 H 192/91 H Blood Pressure Mean 124 124 Pulse Ox 78 98 97 Oxygen Delivery Method Room Air Nasal Cannula Nasal Cannula Oxygen Flow Rate (L/min) 2 2 12/01/24 06:32 12/01/24 06:59 12/01/24 06:59 Temperature Temperature Source Pulse Rate 75 Respiratory Rate 20 H Respiratory Effort Short of Breath Respiratory Pattern Tachypnea Normal Blood Pressure Blood Pressure Mean Pulse Ox 98 Oxygen Delivery Method Nasal Cannula Nasal Cannula Oxygen Flow Rate (L/min) 2 2 12/01/24 07:11 Temperature Temperature Source Pulse Rate Respiratory Rate Respiratory Effort Respiratory Pattern Blood Pressure Blood Pressure Mean Pulse Ox 99 Oxygen Delivery Method Room Air Oxygen Flow Rate (L/min) Positive well nourished and well developed General Appearance ED: well developed; Negative for pallor HEENT HEENT Narrative: No tongue or lip swelling no oral lesions no airway edema or compromise No secondary findings in the posterior pharynx to suggest infection Eyes PERRL and EOMs intact bilaterally General Eye ED: Negative for pale conjunctiva or scleral icterus Neck supple and no JVD Chest Wall palpation of chest normal Chest Narrative: No bony deformity or subcutaneous emphysema noted Resp Resp Narrative: Patient is tachypneic with mild accessory muscle use Breath sounds are severely diminished throughout with diffuse inspiratory and expiratory wheezing Cardio regular rate and regular rhythm Rate: other Other Details: Radial and carotid pulses are equal and symmetric GI normal to inspection, nondistended, normoactive bowel sounds, non-tender, non-distended and no masses Auscultation: normoactive bowel sounds Palpation: soft Extremity normal to inspection Extremity Narrative: No asymmetric edema no pitting edema negative Homans' sign bilaterally Neuro oriented x3, CN's II-XII intact bilaterally and no sensory deficits noted Sensorium / Orientation: alert Motor Exam: strength 5/5 throughout Psych mental status grossly normal Skin no rashes or lesions noted General Skin Exam: Negative for jaundice or pallor MDM MDM MDM Narrative Medical decision making narrative: Patient arrived to the ER hypertensive but has a past medical history of this. He also arrived in mild to moderate respiratory distress with tachypnea and accessory muscle use and his pulse ox on room air was 78%. He states that despite having a concentrator at home he does not typically need it and his pulse ox at baseline is mid 90s. With his report of cough and increased shortness of breath over the last 1 to 2 days there is concern for COPD exacerbation secondary to influenza versus RSV versus COVID versus potential pneumonia or congestive heart failure or pneumothorax. Patient also could have hypoxia from acute blood loss anemia or acute kidney injury or severe electrolyte abnormality. Basic blood work is obtained and shows leukocytosis at 13 with left shift. The remainder of his labs revealed no clinically significant findings. Chest x-ray shows changes concerning for developing right lower lobe pneumonia. The patient was given 125 mg of Solu-Medrol as well as 2 DuoNeb and 1 albuterol treatment based on his history and physical exam. After doing so he had significant improvement of his air movement and breath sounds did improve but they remained both inspiratory and expiratory wheezing diffusely. His room air pulse ox improved from 78% to 90. However he still had increased work of breathing when not on oxygen. Therefore he is placed on 1 to 2 L nasal cannula to help prevent hypoxia. At this time there is concern that his symptoms will worsen over the next few days as he is early in his disease process. I also have concern that his hypoxia will rebound/worsen once the medications wear off. Therefore I feel his safest option is admission to the hospital for continued IV steroids as well as nebulizer treatment and antibiotics. The case was discussed with the hospitalist who agrees to accept the patient at this time for continued care. This plan of care was discussed with the patient and and they are agreeable to it History & Record Review Discussion w/independent historian: Patient and Significant other Lab Data Attestation: I reviewed the patient's lab results. Labs: Laboratory Results - last 24 hr 12/01/24 06:35 WBC 13.3 H RBC 4.74 Hgb 13.7 Hct 41.4 MCV 87.3 MCH 28.9 MCHC 33.1 RDW Std Deviation 45.2 H RDW Coeff of Sherri 14.1 Plt Count 313 MPV 9.3 Immature Gran % (Auto) 0.600 Neut % (Auto) 91.1 H Lymph % (Auto) 3.0 L [place] % (Auto) 5.1 Eos % (Auto) 0.0 Baso % (Auto) 0.2 Absolute Neuts (auto) 12.1 H Absolute Lymphs (auto) 0.40 L Nucleated RBC % 0 Sodium 139 Potassium 4.2 Chloride 100 Carbon Dioxide 26.8 Anion Gap 12 BUN 17 Creatinine 0.93 Estim Creat Clear Calc 57.13 Est GFR (MDRD) Non-Af 87 BUN/Creatinine Ratio 18.4 Glucose 229 H Calcium 9.4 Magnesium 2.0 Radiography Diagnostic Testing: Clinical Impression(s) from Imaging Studies Chest X-Ray 12/01/24 07:22 IMPRESSION: Findings consistent with pulmonary emphysema/COPD. Patchy infiltrates at the right lower and left mid lung zones may represent confluent areas of scarring versus infectious process. Recommend follow-up until resolution. Reading Location: [facility] Chest x-ray as interpreted by the emergency medicine physician reveals patchy infiltrates in the right lower lung concerning for developing pneumonia Discharge Plan Triage Chief Complaint: Shortness of Breath ED Provider: Todd Valdovinos Dx/Rx/DC Orders Clinical Impression: Pneumonia, Hypertension, COPD exacerbation, Hypoxia Prescriptions: No Action Trelegy Ellipta 100-62.5-25 mcg blister with device 1 inh inhalation DAILY amlodipine 5 mg tablet 5 mg PO DAILY Patient Comments: Take 1 tablet by mouth once daily. albuterol sulfate [ProAir HFA] 90 mcg/actuation HFA aerosol inhaler 1 inh inhalation Q6H PRN (Reason: shortness of breath or wheezing) vitamin E 268 mg (400 unit) capsule 268 mg PO DAILY garlic 1,000 mg capsule 1,000 mg PO DAILY alprazolam [Xanax] 0.25 mg tablet 0.375 mg PO QHS Patient Comments: takes 1.5 tabs albuterol sulfate 2.5 mg /3 mL (0.083 %) solution for nebulization 2.5 mg inhalation Q4H PRN Qty: 25 0RF Rx Instructions: Use q4 hours and PRN for wheezing prednisone 20 mg tablet 40 mg PO DAILY PRN (Reason: sob) Primary Care Provider: Jr Dodge Referrals: Jr Dodge DO [Primary Care Provider] - Print Language: Nepali Disposition Disposition: Acute Care Hospital [facility]
--- NOTE | 2024-12-01 08:31 | PCM.HP.STD ---
[facility] - General General Date of Service: 12/01/24 Chief Complaint: shortness of breath. HPI Narrative BRANDON QUINN, is a 73 M who presents w 1-2 days of SBO and cough. Productive sputum. presented to ED w pulse of 89% on room air. CXR showed pneumonia. He received BDs, methylpred and abx w CTX and azithromycin. Similar to prior episodes of COPD exacerbation. Also, he has been experiencing exertional left-sided chest pain since August, that gets better with rest. CP does not radiate. [facility] Medical History Aortic stenosis Elevated coronary artery calcium score Urinary retention Heart murmur Anxiety On home oxygen therapy Acute hypoxemic respiratory failure Pneumonia COPD (chronic obstructive pulmonary disease) [place] (hard of hearing) Hypertension Home Medications ?Medication ?Instructions ?Recorded ?Last Taken ?Type amlodipine 5 mg tablet 5 mg PO DAILY blood pressure 03/06/21 03/02/24 History albuterol sulfate 2.5 mg/3 mL 2.5 mg (3 mL) inhalation Q4H PRN 12/11/23 Unknown Rx (0.083 %) solution for nebulization #25 vials garlic 1,000 mg capsule 1,000 mg PO DAILY general health 12/17/23 Unknown History vitamin E 268 mg (400 unit) capsule 268 mg PO DAILY general health 12/17/23 Unknown History alprazolam 0.25 mg tablet (Xanax) 0.375 mg PO QHS anxiety 02/28/24 Unknown History fluticasone fur. 100 mcg-umeclid 1 inh inhalation DAILY 02/28/24 Unknown History 62.5 mcg-vilant 25 mcg inhalat.powder (Trelegy Ellipta) prednisone 20 mg tablet 40 mg PO DAILY PRN sob 03/02/24 03/02/24 History albuterol sulfate 90 mcg/actuation 1 inh inhalation Q6H PRN shortness 12/01/24 Unknown History aerosol inhaler of breath or wheezing Allergy/AdvReac Type Severity Reaction Status Date / Time No Known Allergies Allergy Verified 12/01/24 06:21 Surgical History Hx of hernia repair History of replacement of both shoulder joints Social History Smoking Status: Former smoker ROS ROS Narrative All review of systems were negative except as mentioned above in the history of present illness and the other review of systems. Vital Signs Vital Signs Vital Signs: 12/01/24 06:21 12/01/24 06:26 12/01/24 06:27 Temperature 36.6 C 36.6 C Temperature Source Oral Oral Pulse Rate 89 83 83 Respiratory Rate 22 H 27 H Respiratory Effort Respiratory Pattern Blood Pressure 192/91 H 192/91 H Blood Pressure Mean 124 124 Pulse Ox 78 98 97 Oxygen Delivery Method Room Air Nasal Cannula Nasal Cannula Oxygen Flow Rate (L/min) 2 2 12/01/24 06:32 12/01/24 06:59 12/01/24 06:59 Temperature Temperature Source Pulse Rate 75 Respiratory Rate 20 H Respiratory Effort Short of Breath Respiratory Pattern Tachypnea Normal Blood Pressure Blood Pressure Mean Pulse Ox 98 Oxygen Delivery Method Nasal Cannula Nasal Cannula Oxygen Flow Rate (L/min) 2 2 12/01/24 07:11 12/01/24 07:20 12/01/24 08:00 Temperature 37.2 C 37.2 C Temperature Source Oral Oral Pulse Rate 87 82 Respiratory Rate 19 H 16 Respiratory Effort Respiratory Pattern Blood Pressure 147/84 H 123/82 H Blood Pressure Mean 105 95 Pulse Ox 99 95 96 Oxygen Delivery Method Room Air Nasal Cannula Nasal Cannula Oxygen Flow Rate (L/min) 1 1 Weight Weight: 57.1 kg Body Mass Index (BMI) 20.2 Physical Exam Narrative - Physical Exam General: Alert, Oriented x3, Cooperative HEENT: Atraumatic, Normocephalic Oral: Moist Mucosa, No Gingival or Mucosal Lesions/ Ulcerations Neck: Supple, No JVD, Negative Carotid Bruits Lungs: Diminished breath coarse sounds bilaterally Cardiovascular: Regular rate, Normal S1, Normal S2, No murmurs Abdomen: Bowel Sounds Present, Soft, Non Tender, Non-Distended, No Hepato-splenomegaly Extremities: No clubbing, No cyanosis, No edema, Capillary Refill Less than 3 Seconds Skin: No rashes, No breakdown Musculoskeletal: No Tenderness to Palpation of Joints or Extremities. No reproducible anterior chest wall tenderness. Neurological: Neuro grossly intact Psych/Mental Status: Normal Affect, Appropriate Results Lab / Micro Data Attestation: I reviewed the patient's lab results. 12/01/24 06:35 12/01/24 06:35 Labs: Laboratory Results - last 24 hr 12/01/24 06:35: WBC 13.3 H, RBC 4.74, Hgb 13.7, Hct 41.4, MCV 87.3, MCH 28.9, MCHC 33.1, RDW Std Deviation 45.2 H, RDW Coeff of Sherri 14.1, Plt Count 313, MPV 9.3, Immature Gran % (Auto) 0.600, Neut % (Auto) 91.1 H, Lymph % (Auto) 3.0 L, [place] % (Auto) 5.1, Eos % (Auto) 0.0, Baso % (Auto) 0.2, Absolute Neuts (auto) 12.1 H, Absolute Lymphs (auto) 0.40 L, Nucleated RBC % 0, Sodium 139, Potassium 4.2, Chloride 100, Carbon Dioxide 26.8, Anion Gap 12, BUN 17, Creatinine 0.93, Estim Creat Clear Calc 57.13, Est GFR (MDRD) Non-Af 87, BUN/Creatinine Ratio 18.4, Glucose 229 H, Calcium 9.4, Magnesium 2.0 Micro: Microbiology 12/01/24 06:43 Mucosa - Nose SARS-CoV-2, Influenza & RSV (PCR) - Final Imaging Radiology Impression Chest X-Ray 12/01/24 07:22 IMPRESSION: Findings consistent with pulmonary emphysema/COPD. Patchy infiltrates at the right lower and left mid lung zones may represent confluent areas of scarring versus infectious process. Recommend follow-up until resolution. Reading Location: [id number] Assessment & Plan Assessment/Plan (1) COPD exacerbation: PLAN: Likely brought on by his pneumonia Continue with bronchodilators and methylprednisolone. Patient was hypoxic with a pulse ox around 89% on room air when he presented. Currently between 1 to 2 L/min. Wean oxygen as tolerated. (2) Pneumonia: PLAN: Suspect pneumococcal. Continue antibiotics with ceftriaxone azithromycin which are being initiated in the emergency room Check urinary antigens for strep and Legionella. Check sputum culture. Pulmonary toilet. (3) Stable angina: PLAN: Patient has been experiencing left-sided chest pain with exerting himself. He has had an prior cardiac workup thus far: Cardiac cath in March 02, 2024 showed EF of 70%. Normal LV wall motion. 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 No dampening of present. Mild irregularities of the LAD, circumflex and RCA. Echo from June 05, 2024 EF of 59% ?5%. Mild aortic stenosis. Plan is to start him on aspirin. Check fasting lipid panel and check nuclear stress test. Check stress test and troponin series. PLAN: Plan VTE prophylaxis with enoxaparin CODE STATUS: Addressed with the patient. Patient is full code. Case discussed with the patient's at bedside. She had been saying that his heart was fine. I reviewed his prior records with she and the patient at bedside and explained the indications for the stress test including his chest pain, his cleft like lesion in his left main. Charges/Coding Visit Charges Inpatient E&M: 67430 Init Hosp L3
[2024-12-01] MEDS: Ceftriaxone 1 GM/50 ML BAG IV (08:35)
[2024-12-01] MEDS: Azithromycin 500 MG in 0.9% Normal Saline (250mL Bag) 250 ML 255 MG IV (08:55)
--- NOTE | 2024-12-01 11:18 | EKG12_ITS ---
Test Reason : AM EKG Blood Pressure : */* mmHG Vent. Rate : 74 BPM Atrial Rate : 74 BPM P-R Int : 166 ms QRS Dur : 84 ms QT Int : 376 ms P-R-T Axes : 81 73 78 degrees QTcB Int : 417 ms Normal sinus rhythm with sinus arrhythmia Normal ECG When compared with ECG of 01-Dec-2024 11:17, MANUAL COMPARISON REQUIRED DATA IS UNCONFIRMED Confirmed by MIGUELINA JOHNS, RUSTY ([id number]), production editor SEBASTIEN ROMERO ([id number]) on 12/03/2024 8:44:29 AM Referred By: Confirmed By: RUSTY MCINTYRE MD
[2024-12-01 11:31] LABS: Troponin T High Sensitivity 17 ng/L (<=22)
[2024-12-01] MEDS: Aspirin 81 MG TAB.CHEW 324 MG PO (11:37)
[2024-12-01] MEDS: Enoxaparin 40 MG/0.4 ML Syringe SC (11:38)
[2024-12-01] MEDS: amLODIPine 5 MG Tablet PO (11:38)
[2024-12-01] MEDS: guaiFENesin 1,200 MG Tablet 1200 MG PO ×2 (11:38→22:08)
[2024-12-01 12:51] LABS: Troponin T High Sens 2 HR 16 ng/L (<=22)
--- NOTE | 2024-12-01 14:09 | CHAPLAIN ---
Type of Pastoral Visit _x__ Initial Visit ___ Follow-up Visit ___ On-call Visit ___ General Patient Visit ___ Spiritual Assessment ___ Family Conference ___ Bereavement ___ Rapid Response ___ Code Blue ___ Other (describe below) Pastoral Care Referral From _x__ Patient ___ Family ___ Nurse ___ Physician ___ Steel Rule Die Maker ___ Tool Maintenance Technician ___ Other (describe below) Sacrament/Intervention _x__ Active listening ___ Anointing ___ Buddhism ___ Bereavement ___ Communion ___ Norma exploration ___ ___ Life review ___ Prayer ___ Reconciliation ___ Sacrament of Sick ___ Supportive presence ___ Wedding ___ Other (describe below) Pastoral Comments patient and spouse are eating lunch; pt says several times that he has had great care, prompt attention, and great food; pt states that all is well; no prayer given
[2024-12-01] MEDS: Methylprednisolone Sod Succ 40 MG/ML VIAL IV ×2 (14:25→22:08)
[2024-12-01 15:14] LABS: Troponin T High Sens 4 HR 20 ng/L (<=22)
[2024-12-01] MEDS: ALPRAZolam 0.25 MG Tablet 0.375 MG PO (22:08)
[2024-12-01] MEDS: 0.9% Saline Lock 10 ML Syringe IV (22:11)
[2024-12-02] VITALS (9 sets, daily range): BP systolic 116–143; BP diastolic 67–87; PULSE 75–95; RESP 12–22; TEMP 36.5–36.8; O2SAT 77–95
[2024-12-02] MEDS: Methylprednisolone Sod Succ 40 MG/ML VIAL IV ×2 (05:14→13:59)
[2024-12-02] MEDS: Ipratropium/Albuterol Sulfate 3 ML AMPUL.NEB INHALATION ×3 (05:42→15:04)
[2024-12-02 05:50] LABS: Basophil# 0.01 X10^3/uL; Basophil% 0.1 % (0-1); Hematocrit 36.6 % (40-54); Hemoglobin 12.3 g/dL (13.0-16.5); Lymphocyte % 2.2 % (19-41); Mean Corp Hgb Conc 33.6 g/dL (32-36); Mean Corpuscular Hgb 29.3 pg (27.0-32.0); Mean Corpuscular Volume 87.1 fL (80-94); Mean Platelet Vol. 9.9 fl (6.2-12.0); Monocyte# 0.28 X10^3/uL; NRBC Flagged by Analyzer 0 % (0-5); Neutrophil # 13.04 X10^3/uL (2.7-7.7); Neutrophil % 95.2 % (47-70); POSITIVE DIFFERENTIAL YES; Platelet Count 294 K/mm3 (150-450); RBC Distribution Width CV 14.3 % (11.6-14.6); RBC Distribution Width SD 45.8 fl (35.1-43.9); White Blood Count 13.7 K/mm3 (4.4-11.0)
--- NOTE | 2024-12-02 05:55 | EKG12_ITS ---
Test Reason : Blood Pressure : */* mmHG Vent. Rate : 90 BPM Atrial Rate : 90 BPM P-R Int : 154 ms QRS Dur : 82 ms QT Int : 338 ms P-R-T Axes : 86 75 -12 degrees QTcB Int : 413 ms Normal sinus rhythm ST & T wave abnormality, consider inferior ischemia Abnormal ECG When compared with ECG of 28-May-2024 07:59, Non-specific change in ST segment in Anterior leads T wave inversion now evident in Inferior leads T wave inversion now evident in Anterior leads Confirmed by MIGUELINA JOHNS, RUSTY ([id number]), telegraph editor SEBASTIEN ROMERO ([id number]) on 12/03/2024 8:44:47 AM Referred By: COLETTE Confirmed By: RUSTY MCINTYRE MD
[2024-12-02 06:51] LABS: Anion Gap 10 (5-15); BUN 21 mg/dL (4-19); BUN/Creat Ratio 24.4 RATIO (10-20); Calcium,Total 9.6 mg/dL (7.6-11.0); Carbon Dioxide 26.1 mmol/L (21.0-32.0); Chloride 102 mmol/L (98-108); Creatinine, Serum 0.84 mg/dL (0.70-1.20); EST Glomerular Filtration Rate 92 (>60); Estimated Creatinine Clearance 62.26 ml/min (50-250); Glucose 174 mg/dL (70-99); Potassium 4.5 mmol/L (3.3-5.1); Sodium Level 138 mmol/L (133-145)
--- NOTE | 2024-12-02 08:15 | PN.HOSP_ITS ---
Reason for Visit Reason for Visit: Diagnoses Other forms of angina pectoris (12/01/24) Pneumonia, unspecified organism (12/01/24) Chronic obstructive pulmonary disease with (acute) exacerbation (12/01/24) Subjective Subjective Breathing better. Has been using his Trelegy and albuterol MDI despite my orders to not continue those. He wants Duoneb upon discharge as a respiratory therapist told him it is better for COPD. Objective Data Objective Data Vital Signs: Vital Signs Temp Pulse Resp BP Pulse Ox O2 Del Method O2 Flow Rate 36.6 C 75 22 H 116/76 92 Room Air 2 12/02/24 04:15 12/02/24 05:42 12/02/24 05:42 12/02/24 04:15 12/02/24 04:15 12/02/24 05:00 12/01/24 11:55 Oxygen Flow Rate (L/min) 2 Oxygen Delivery Method Room Air Weight: 56.2 kg Body Mass Index (BMI) 20.0 Intake & Output: Intake and Output for Last 24 Hours 11/30/24 12/01/24 12/02/24 23:59 23:59 23:59 Intake Total 1105 / 1105 Balance 1105 / 1105 Lab / Micro Data 12/02/24 04:53 12/02/24 04:53 Labs: Laboratory Results - last 24 hr 12/01/24 10:40: Troponin T High Sens 17 12/01/24 12:26: Troponin T Hi Sens 2 Hr 16 12/01/24 14:35: Troponin T Hi Sens 4Hr 20 12/02/24 04:53: WBC 13.7 H, RBC 4.20 L, Hgb 12.3 L, Hct 36.6 L, MCV 87.1, MCH 29.3, MCHC 33.6, RDW Std Deviation 45.8 H, RDW Coeff of Sherri 14.3, Plt Count 294, MPV 9.9, Immature Gran % (Auto) 0.500, Neut % (Auto) 95.2 H, Lymph % (Auto) 2.2 L, [place] % (Auto) 2.0, Eos % (Auto) 0.0, Baso % (Auto) 0.1, Absolute Neuts (auto) 13.0 H, Absolute Lymphs (auto) 0.30 L, Nucleated RBC % 0, Sodium 138, Potassium 4.5, Chloride 102, Carbon Dioxide 26.1, Anion Gap 10, BUN 21 H, Creatinine 0.84, Estim Creat Clear Calc 62.26, Est GFR (MDRD) Non-Af 92, BUN/Creatinine Ratio 24.4 H, Glucose 174 H, Calcium 9.6 Micro: Microbiology 12/01/24 06:43 Mucosa - Nose SARS-CoV-2, Influenza & RSV (PCR) - Final Physical Exam Const alert and no apparent distress Constitutional Narrative: up ambulating in the room on room air. no respiratory distress. HEENT head/scalp atraumatic and moist oral mucous membranes Resp normal respiratory effort and no retractions Assessment & Plan Assessment/Plan (1) COPD exacerbation: PLAN: Likely brought on by his pneumonia Continue with bronchodilators and methylprednisolone. Patient was hypoxic with a pulse ox around 89% on room air when he presented. Currently between 1 to 2 L/min. Wean oxygen as tolerated. Requesting Duoneb upon discharge. I told him would not since he is already on Trelegy. I tried to explain to he and his that it would be a redundancy of treatment, but recommended he follow up with pulmonary. He was dismissive of that recommendation. He has been using his own Trelegy and albuterol MDI, despite my orders to hold these medications. (2) Pneumonia: PLAN: Suspect pneumococcal. Continue antibiotics with ceftriaxone azithromycin which are being initiated in the emergency room Strep and Legionella negative. Check sputum culture. Pulmonary toilet. (3) Stable angina: PLAN: Patient has been experiencing left-sided chest pain with exerting himself. He has had an prior cardiac workup thus far: * Cardiac cath in March 02, 2024 showed EF of 70%. Normal LV wall motion. 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 No dampening of present. Mild irregularities of the LAD, circumflex and RCA. * Echo from June 05, 2024 EF of 59% ?5%. Mild aortic stenosis. Plan is to start him on aspirin. Check fasting lipid panel and check nuclear stress test. Check stress test and troponin series. PLAN: Plan VTE prophylaxis with enoxaparin CODE STATUS: Addressed with the patient. Patient is full code. Charges/Coding Visit Charges Inpatient E&M: 30128 Subs Hosp L2
[2024-12-02 09:48] LABS: Cholesterol 177 mg/dL (<=200); High Density Lipoprotein 75 mg/dL; Low Density Lipoprotein Calc. 95 mg/dL; Triglycerides 36 mg/dL; Very Low Density Lipoprotein 7 mg/dL (5-40); cholesterol:hdl ratio screen 2.37
[2024-12-02] MEDS: amLODIPine 5 MG Tablet PO (11:04)
[2024-12-02] MEDS: guaiFENesin 1,200 MG Tablet 1200 MG PO (11:04)
[2024-12-02] MEDS: Ceftriaxone 2 GM in 0.9% Normal Saline (50mL MB+) 50 ML IV (11:05)
--- NOTE | 2024-12-02 11:30 | CASEMGMT ---
EM JOINER Assessment Face to Face with patient for initial transition planning/care coordination assessment. EM JOINER introduced self and role at [facility], pt voices understanding. Pt is A&Ox4 and is resting comfortably in bed and is calm. Pt at bedside. Care providers, pharmacy, and demographics verified. Admitting dx: COPD Exacerbation, Angina LACE Strata: 1 PCP: Michelle Erickson STRIKE PLATE ATTACHER Specialists: Betsy ([facility]) Preferred Pharmacy: [facility] Insurance: [employer] Prescription Benefit: None. CM to follow. 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 Pt is requesting to use the [facility] Transportation Van at the time of DC but can hire a taxi if unavailable. Care Management to follow. DME:Cane, FWW, Nebulizer, pulse ox, personal portable oxygen concentrator. This EM JOINER educated the pt and pt that the pt has the potential to qualify for home oxygen use. At this time, the pt and pt decline wanting to be set up with a DME company and would like to use his own equipment. HHC/SNF: Denies history or needs Pt?s goal: Home Plan: Home, follow for transportation, Rx costs, and o2 needs. Pt denies the need for HHC or OP Tx. Pt states that he feels safe returning home with his once he is medically ready and denies further questions or concerns at this time. Report given to FUEL EFFICIENT AIRCRAFT DESIGNER CM. Renzo Pierson RN, CM
[2024-12-02] MEDS: Azithromycin 500 MG in 0.9% Normal Saline (250mL Bag) 250 ML 255 MG IV (12:04)
[2024-12-02] MEDS: Aspirin E.C. 81 MG Tablet PO (14:54)
[2024-12-02] MEDS: Enoxaparin 40 MG/0.4 ML Syringe SC (14:54)
--- NOTE | 2024-12-02 15:06 | STRESSREP ---
Stress Test Report Pharmacologic myocardial perfusion stress test. 73-year-old male with a history of chest pain Resting EKG demonstrates sinus rhythm with a rate of 80 bpm. Resting blood pressure is 142/74 mmHg. 0.4 mg of regadenoson was infused per usual protocol followed by rapid intravenous saline flush injection. Continuous EKG monitoring was performed. The maximum heart rate was 95 bpm which was 64% of max impacted heart rate the maximum workload was 1 metabolic equivalent. At rest there were no ST or T wave changes noted to suggest ischemia and at peak infusion nonspecific ST changes were noted which did not meet the criteria for ischemia. No clinical angina is noted. The final blood pressure was 128/72 mmHg. Myocardial perfusion protocol. 11.9 mCi of technetium 99m sestamibi was injected at rest. 0.4 mg of regadenoson was infused per usual protocol. At peak infusion 34.8 mCi of technetium 99m sestamibi was injected stress images were obtained stress and rest images were reconstructed and compared in the short axis vertical long and horizontal long axis. Gated images were also obtained. Perfusion SPECT analysis: Review of the stress images demonstrate normal uptake of tracer noted in all areas of the myocardium. 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 No reversibility is noted suggest ischemia. Gated SPECT analysis: The gated ejection fraction is 83%. Conclusion: Normal pharmacologic myocardial perfusion stress test. Preserved ejection fraction. Small anteroseptal infarct cannot be excluded
--- NOTE | 2024-12-02 15:32 | DS.PCM_ITS ---
Providers Date of Admission: 12/01/24 Primary Care Physician: Michelle Erickson, [employer] Reason For Visit: COPD EX. ANGINA Diagnosis Discharge Diagnosis (1) COPD exacerbation: Status: Chronic Code(s): J44.1 - Chronic obstructive pulmonary disease with (acute) exacerbation Plan: Likely brought on by his pneumonia Continue with bronchodilators and methylprednisolone. Patient was hypoxic with a pulse ox around 89% on room air when he presented. Currently between 1 to 2 L/min. Wean oxygen as tolerated. Requesting Duoneb upon discharge. I told him would not since he is already on Trelegy. I tried to explain to he and his that it would be a redundancy of treatment, but recommended he follow up with pulmonary. He was dismissive of that recommendation. He has been using his own Trelegy and albuterol MDI, despite my orders to hold these medications. (2) Pneumonia: Status: Acute Code(s): J18.9 - Pneumonia, unspecified organism Plan: Suspect pneumococcal. Continue antibiotics with ceftriaxone azithromycin which are being initiated in the emergency room Strep and Legionella negative. Check sputum culture. Pulmonary toilet. (3) Stable angina: Status: Acute Code(s): I20.89 - Other forms of angina pectoris Plan: Patient has been experiencing left-sided chest pain with exerting himself. He has had an prior cardiac workup thus far: * Cardiac cath in March 02, 2024 showed EF of 70%. Normal LV wall motion. 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 No dampening of present. Mild irregularities of the LAD, circumflex and RCA. * Echo from June 05, 2024 EF of 59% ?5%. Mild aortic stenosis. Plan is to start him on aspirin. Check fasting lipid panel and check nuclear stress test. Check stress test and troponin series. Plan VTE prophylaxis with enoxaparin CODE STATUS: Addressed with the patient. Patient is full code. Medications at Discharge Home Medications amlodipine 5 mg tablet 5 mg PO DAILY blood pressure 03/06/21 albuterol sulfate 2.5 mg/3 mL (0.083 %) solution for nebulization 2.5 mg (3 mL) inhalation Q4H PRN #25 vials 12/11/23 garlic 1,000 mg capsule 1,000 mg PO DAILY general health 12/17/23 vitamin E 268 mg (400 unit) capsule 268 mg PO DAILY general health 12/17/23 alprazolam 0.25 mg tablet (Xanax) 0.375 mg PO QHS anxiety 02/28/24 fluticasone fur. 100 mcg-umeclid 62.5 mcg-vilant 25 mcg inhalat.powder (Trelegy Ellipta) 1 inh inhalation DAILY 02/28/24 albuterol sulfate 90 mcg/actuation aerosol inhaler 1 inh inhalation Q6H PRN shortness of breath or wheezing 12/01/24 amoxicillin 875 mg-potassium clavulanate 125 mg tablet 1 tab PO BID #10 tabs 12/02/24 prednisone 20 mg tablet 40 mg (2 x 20 mg) PO DAILY #10 tabs 12/02/24 Hospital Course Operations None Procedures Stress test Summary of Care Provided Minutes Spent on Discharge: 32 Hospital Course: Patient presents with shortness of breath. Diagnosed with COPD exacerbation and pneumonia. Patient with a complaining of exertional chest pain that been going on for some time prior to arrival. Patient underwent stress test that was unremarkable. Patient be discharged with antibiotics with Augmentin and prednisone. Patient has improved since he has been here. Patient improved much faster than initially anticipated. Weight / BMI Weight Weight: 56.2 kg Body Mass Index (BMI) 20.0 ABG / Lab / Microbiology Data 12/02/24 04:53 12/02/24 04:53 Laboratory: Laboratory Results - last 24 hr 12/02/24 04:53: WBC 13.7 H, RBC 4.20 L, Hgb 12.3 L, Hct 36.6 L, MCV 87.1, MCH 29.3, MCHC 33.6, RDW Std Deviation 45.8 H, RDW Coeff of Sherri 14.3, Plt Count 294, MPV 9.9, Immature Gran % (Auto) 0.500, Neut % (Auto) 95.2 H, Lymph % (Auto) 2.2 L, Toole % (Auto) 2.0, Eos % (Auto) 0.0, Baso % (Auto) 0.1, Absolute Neuts (auto) 13.0 H, Absolute Lymphs (auto) 0.30 L, Nucleated RBC % 0, Sodium 138, Potassium 4.5, Chloride 102, Carbon Dioxide 26.1, Anion Gap 10, BUN 21 H, Creatinine 0.84, Estim Creat Clear Calc 62.26, Est GFR (MDRD) Non-Af 92, BUN/Creatinine Ratio 24.4 H, Glucose 174 H, Calcium 9.6, Triglycerides 36, Cholesterol 177, LDL Cholesterol, Calc 95, VLDL Cholesterol 7, HDL Cholesterol 75, Cholesterol/HDL Ratio 2.37 Microbiology: Microbiology 12/02/24 12:51 Urine, Clean Catch Legionella Antigen - Final 12/02/24 12:51 Urine, Clean Catch Streptococcus pneumoniae Antigen (M - Final 12/01/24 10:10 Sputum, Expectorated/Coughed Gram Stain - Final 12/01/24 06:43 Mucosa - Nose SARS-CoV-2, Influenza & RSV (PCR) - Final D/C Instructions Discharge Diet: No restrictions DC O2, CPAP, BIPAP Needs Home O2 Discharge instructions: No Meaningful Use Info Meaningful Use Meaningful Use Diagnoses (Choose all that apply): None applicable Ischemic Stroke Statin Dosing Therapy Reference: STATIN DOSE THERAPY REFERENCE: * Patients > 75 years receive moderate or high dose statin therapy. * Patients 75 years or YOUNGER should receive HIGH intensity statin dose unless contraindicated. You will be required to document reason for non-treatment if statin daily dose does not meet guidelines. HIGH DOSE STATIN THERAPY DAILY Atorvastatin > than or = to 40 mg Rosuvastatin > than or = to 20 mg Amlodipine + Atorvastatin > than or = to 2.5/40 mg Ezetimibe + Simvastatin 10/80 mg Simvastatin 80mg Discharge Plan Admission Admit Date/Time: 12/01/24 08:16 Primary Reason for Your Visit: Pneumonia. COPD exacerbation. Attending Provider: Anirudh Thompson Primary Care Provider: Michelle Erickson [employer] Discharge Orders/Prescriptions Prescriptions: New prednisone 20 mg tablet 40 mg PO DAILY Qty: 10 0RF amoxicillin-pot clavulanate 875-125 mg tablet 1 tab PO BID Qty: 10 0RF Continued Trelegy Ellipta 100-62.5-25 mcg blister with device 1 inh inhalation DAILY amlodipine 5 mg tablet 5 mg PO DAILY Patient Comments: Take 1 tablet by mouth once daily. vitamin E 268 mg (400 unit) capsule 268 mg PO DAILY garlic 1,000 mg capsule 1,000 mg PO DAILY alprazolam [Xanax] 0.25 mg tablet 0.375 mg PO QHS Patient Comments: takes 1.5 tabs albuterol sulfate 90 mcg/actuation HFA aerosol inhaler 1 inh inhalation Q6H PRN (Reason: shortness of breath or wheezing) albuterol sulfate 2.5 mg /3 mL (0.083 %) solution for nebulization 2.5 mg inhalation Q4H PRN Qty: 25 0RF Rx Instructions: Use q4 hours and PRN for wheezing Discontinued prednisone 20 mg tablet 40 mg PO DAILY PRN (Reason: sob) Referrals / Follow Up: Jr Dodge DO [Non-Staff] - Within 2 Weeks Michelle Erickson [employer], [employer] [Primary Care Provider] - Disposition Disposition (needs filled in before D/C Order can be placed): Home, Self Care Charges/Coding Visit Charges Inpatient E&M: 71919 Disch Hosp >30min
--- NOTE | 2024-12-02 15:59 | CASEMGMT ---
Patient has order for discharge. Patient requires oxygen at discharge. RN CM in to clarify if patient has portable oxygen at home. Patient states he does not have portable oxygen at home. Patient agreeable for RN CM to setup portable oxygen for at discharge and prefers [employer]. Patient denies further needs or concerns at discharge. Patient had no further questions or concerns. EM JOINER sent referral to [employer] via [facility]. RN CM updated discharge plan.
--- NOTE | 2024-12-02 16:32 | PHA.DC_ITS ---
Pharmacy [facility] Service has performed discharge medication reconciliation and counseling for this patient. 1. AUGMENTIN 875 PO BID X 5 DAYS 2. PREDNISONE 40MG PO DAILY X 5 DAYS The patient's discharge medication list was reviewed for discrepancies and discrepancies were resolved. The patient was counseled on the following discharge medications and changes in medications for homegoing were reviewed. The Reason for Use, instructions for use, and potential side effects were reviewed for all new medications. The patient's questions regarding all of their medications were answered. The patient was able to verbally demonstrate an understanding of their discharge medications. Medications at Discharge Home Medications amlodipine 5 mg tablet 5 mg PO DAILY blood pressure 03/06/21 albuterol sulfate 2.5 mg/3 mL (0.083 %) solution for nebulization 2.5 mg (3 mL) inhalation Q4H PRN #25 vials 12/11/23 garlic 1,000 mg capsule 1,000 mg PO DAILY general health 12/17/23 vitamin E 268 mg (400 unit) capsule 268 mg PO DAILY general health 12/17/23 alprazolam 0.25 mg tablet (Xanax) 0.375 mg PO QHS anxiety 02/28/24 fluticasone fur. 100 mcg-umeclid 62.5 mcg-vilant 25 mcg inhalat.powder (Trelegy Ellipta) 1 inh inhalation DAILY 02/28/24 albuterol sulfate 90 mcg/actuation aerosol inhaler 1 inh inhalation Q6H PRN shortness of breath or wheezing 12/01/24 amoxicillin 875 mg-potassium clavulanate 125 mg tablet 1 tab PO BID #10 tabs 12/02/24 prednisone 20 mg tablet 40 mg (2 x 20 mg) PO DAILY #10 tabs 12/02/24
== END 2024-12-02 17:34 | disposition home or self-care (01) | DRG 194 ==
LOC: ED 08:00 → PCU 09:03
PROVIDERS: Emergency Provider Emergency Medicine; PCP Nurse Practitioner Family
DX: J18.9 Pneumonia, unspecified organism (principal); J44.1 Chronic obstructive pulmonary disease with (acute) exacerbation; J44.0 Chronic obstructive pulmonary disease with (acute) lower respiratory infection; Z99.81 Dependence on supplemental oxygen; I10 Essential (primary) hypertension; F41.9 Anxiety disorder, unspecified; I20.89 Other forms of angina pectoris; Z87.891 Personal history of nicotine dependence; Z79.51 Long term (current) use of inhaled steroids; Z79.899 Other long term (current) drug therapy; Z96.611 Presence of right artificial shoulder joint; Z96.612 Presence of left artificial shoulder joint; R09.02 Hypoxemia
CPT/HCPCS: 36415; 71046; 78452; 80048; 80061; 83735; 84484; 85025; 87070; 87077; 87186; 87205; 87449; 87631; 93005; 93017; 94640; 94667; 94668; 99283; A9500; A4216; J0696; J2785

== ENCOUNTER 2025-06-01 07:20 | Inpatient (IN) | payer OTHER, SELFPAY ==
[2025-06-01] VITALS (15 sets, daily range): BP systolic 135–156; BP diastolic 76–85; PULSE 64–95; RESP 16–20; TEMP 36.5–36.8; O2SAT 89–98; BMI 19.5; BMI 19.0
--- NOTE | 2025-06-01 07:36 | EKG12_ITS ---
Test Reason : CP Blood Pressure : */* mmHG Vent. Rate : 69 BPM Atrial Rate : 69 BPM P-R Int : 140 ms QRS Dur : 72 ms QT Int : 382 ms P-R-T Axes : 88 78 59 degrees QTcB Int : 409 ms Normal sinus rhythm Normal ECG Confirmed by MIGUELINA JOHNS, RUSTY ([id number]), editor in chief SEBASTIEN ROMERO ([id number]) on 06/02/2025 1:25:02 PM Referred By: Confirmed By: RUSTY MCINTYRE MD
--- NOTE | 2025-06-01 07:41 | EDS_ITS ---
HPI History of Present Illness Chief Complaint: Shortness of Breath Informant: patient Narrative Narrative: Patient is a 74-year-old male with history of COPD, wears oxygen at night, anxiety, aortic stenosis, hypertension presenting with worsening shortness of breath as well as left-sided pleuritic chest pain. Patient states that for the past 2 to 3 days he has had increased shortness of breath, chest tightness and is now having pain with deep breath. States it is over his entire left chest and into his breastbone. States has had scant amount of green sputum but he feels that there is more secretions up there just cannot get it out. Does not have any significant relief with his breathing treatments at home. Notes he has had a mild sore throat. Denies any fevers. Not any blood thinners. Denies any swelling of his legs. Is not any blood thinners. States he is concerned he has pneumonia and this is how his prior pneumonias have felt like. No other complaints or concerns reported at this time. PE Risk Factors: Negative for Cancer, OCP + Smoking + > 35, Prior DVT or PE, Recent immobilization, Recent surgery or Recent travel [facility] Medical History Aortic stenosis Elevated coronary artery calcium score Urinary retention Heart murmur Anxiety On home oxygen therapy Acute hypoxemic respiratory failure Pneumonia COPD (chronic obstructive pulmonary disease) [place] (hard of hearing) Hypertension Home Medications ?Medication ?Instructions ?Recorded ?Last Taken ?Type amlodipine 5 mg tablet 5 mg PO DAILY blood pressure 03/06/21 03/02/24 History albuterol sulfate 2.5 mg/3 mL 2.5 mg (3 mL) inhalation Q4H PRN 12/11/23 Unknown Rx (0.083 %) solution for nebulization #25 vials garlic 1,000 mg capsule 1,000 mg PO DAILY general he alth 12/17/23 Unknown History vitamin E 268 mg (400 unit) capsule 268 mg PO DAILY Tongxue 12/17/23 Unknown History alprazolam 0.25 mg tablet (Xanax) 0.375 mg PO QHS anxi ety 02/28/24 Unknown History fluticasone fur. 100 mcg-umeclid 1 inh inhalation SUDHAKAR Y 02/28/24 Unknown History 62.5 mcg-vilant 25 mcg inhalat.powder (Trelegy Ellipta) albuterol sulfate 90 mcg/actuation 1 inh inhalation Q6 H PRN shortness 12/01/24 Unknown History aerosol inhaler of breath or wheezing amoxicillin 875 mg-potassium 1 tab PO BID #10 tabs 05/20 Unknown Rx clavulanate 125 mg tablet prednisone 20 mg tablet 40 mg (2 x 20 mg) PO DAILY # 10 tabs 12/02/24 Unknown Rx Allergy/AdvReac Type Severity Reaction Status Date / Time No Known Allergies Allergy Verified 06/01/25 07:22 Surgical History Hx of hernia repair History of replacement of both shoulder joints Social History Smoking Status: Former smoker ROS ROS ED Constitutional Constitutional ED: Denies chills or fever(s) ENT ENT ED: Reports sore throat; Denies rhinorrhea Cardiovascular Cardiovascular: Reports chest pain; Denies orthopnea or palpitations Respiratory/Chest Respiratory/Chest: Reports cough, dyspnea, dyspnea on exertion and sputum; Denies orthopnea Gastrointestinal Gastrointestinal: Denies abdominal pain, nausea or vomiting Genitourinary Genitourinary ED: Reports other Details: Reports chronic frequent nocturnal urination Musculoskeletal Musculoskeletal: Denies arthralgias or myalgias Integumentary Denies rash Psychiatric Psychiatric: Reports anxiety Hematologic/Lymphatic Hematologic/Lymphatic: Denies easy bleeding or easy bruising EXAM Physical Exam Const Vital Signs: 06/01/25 07:20 Temperature 98 F Temperature Source Oral Pulse Rate 72 Respiratory Rate 20 H Blood Pressure 153/77 H Blood Pressure Mean 102 Pulse Ox 95 Oxygen Delivery Method Room Air Positive well nourished and well developed General Appearance ED: well developed and NAD; Negative for pallor HEENT Reports moist mucous membranes Eyes PERRL Neck supple Resp normal respiratory effort Resp Narrative: Diminished breath sounds with in-store and expiratory wheezing present. Significantly diminished breath sounds at the left base compared to the right. No crackles appreciated Cardio regular rate, regular rhythm and no murmurs Cardio Narrative: 2+ radial and PT pulses present GI non-tender and non-distended Auscultation: normoactive bowel sounds Palpation: soft Extremity normal to inspection General Extremety ED: Negative for edema or tenderness General Extremity: Negative for edema Neuro oriented x3 Sensorium / Orientation: alert Motor Exam: Negative for general weakness Psych mental status grossly normal Skin no wounds General Skin Exam: Negative for jaundice or pallor MDM MDM MDM Narrative Medical decision making narrative: Patient evaluated for 2 to 3 days of worsening shortness of breath and chest tightness. Differential includes not limited to acute pleural effusion, ACS, pneumonia and COPD exacerbation. I considered pulmonary emboli but clinical exam much more consistent with COPD exacerbation versus pneumonia. Patient given breathing treatments as well as steroids in the emergency room. He does have a history of coronary artery disease's will obtain a cardiac. EKG does not show any signs of acute ischemia. Rhythm Strip Rhythm Strip: Sinus Rhythm Rate: 69 Ectopy: None EKG Initial EKG: Attestation: I personally reviewed and interpreted this EKG as follows: Interpretation: Sinus Rhythm Comments: Normal sinus rhythm at a rate of 69 bpm Normal axis Normal intervals Normal ST segments Compared to prior EKG on patient has reversal of T wave inversions in the lateral/anterior leads Discharge Plan Triage Chief Complaint: Shortness of Breath ED Provider: Vivi Pike Dx/Rx/DC Orders Prescriptions: No Action Trelekat Ellipta 100-62.5-25 mcg blister with device 1 inh inhalation DAILY amlodipine 5 mg tablet 5 mg PO DAILY Patient Comments: Take 1 tablet by mouth once daily. vitamin E 268 mg (400 unit) capsule 268 mg PO DAILY garlic 1,000 mg capsule 1,000 mg PO DAILY alprazolam [Xanax] 0.25 mg tablet 0.375 mg PO QHS Patient Comments: takes 1.5 tabs albuterol sulfate 90 mcg/actuation HFA aerosol inhaler 1 inh inhalation Q6H PRN (Reason: shortness of breath or wheezing) prednisone 20 mg tablet 40 mg PO DAILY Qty: 10 0RF amoxicillin-pot clavulanate 875-125 mg tablet 1 tab PO BID Qty: 10 0RF albuterol sulfate 2.5 mg /3 mL (0.083 %) solution for nebulization 2.5 mg inhalation Q4H PRN Qty: 25 0RF Rx Instructions: Use q4 hours and PRN for wheezing Primary Care Provider: ROWENA FERRARO Referrals: ROWENA FERRARO [Other] Print Language: Nepali
--- NOTE | 2025-06-01 07:41 | ED.VIS.DYS ---
HPI History of Present Illness Chief Complaint: Shortness of Breath Informant: patient Narrative Narrative: Patient is a 74-year-old male with history of COPD, wears oxygen at night, anxiety, aortic stenosis, hypertension presenting with worsening shortness of breath as well as left-sided pleuritic chest pain. Patient states that for the past 2 to 3 days he has had increased shortness of breath, chest tightness and is now having pain with deep breath. States it is over his entire left chest and into his breastbone. States has had scant amount of green sputum but he feels that there is more secretions up there just cannot get it out. Does not have any significant relief with his breathing treatments at home. Notes he has had a mild sore throat. Denies any fevers. Not any blood thinners. Denies any swelling of his legs. Is not any blood thinners. States he is concerned he has pneumonia and this is how his prior pneumonias have felt like. No other complaints or concerns reported at this time. PE Risk Factors: Negative for Cancer, OCP + Smoking + > 35, Prior DVT or PE, Recent immobilization, Recent surgery or Recent travel [facility] Medical History Aortic stenosis Elevated coronary artery calcium score Urinary retention Heart murmur Anxiety On home oxygen therapy Acute hypoxemic respiratory failure Pneumonia COPD (chronic obstructive pulmonary disease) [place] (hard of hearing) Hypertension Home Medications ?Medication ?Instructions ?Recorded ?Last Taken ?Type amlodipine 5 mg tablet 5 mg PO DAILY blood pressure 03/06/21 06/01/25 History albuterol sulfate 2.5 mg/3 mL 2.5 mg (3 mL) inhalation Q4H PRN 12/11/23 06/01/25 Rx (0.083 %) solution for nebulization #25 vials garlic 1,000 mg capsule 1,000 mg PO DAILY general health 12/17/23 Unknown History vitamin E 268 mg (400 unit) capsule 268 mg PO DAILY blood clot 12/17/23 06/01/25 History prevention alprazolam 0.25 mg tablet (Xanax) 0.375 mg PO QHS anxiety 02/28/24 05/31/25 History fluticasone fur. 100 mcg-umeclid 1 inh inhalation DAILY 02/28/24 06/01/25 History 62.5 mcg-vilant 25 mcg inhalat.powder (Trelegy Ellipta) albuterol sulfate 90 mcg/actuation 1 inh inhalation Q6H PRN shortness 12/01/24 05/31/25 History aerosol inhaler of breath or wheezing prednisone 5 mg tablet 5 mg PO DAILY PRN sob 06/01/25 05/31/25 History Allergy/AdvReac Type Severity Reaction Status Date / Time No Known Allergies Allergy Verified 06/01/25 07:22 Surgical History Hx of hernia repair History of replacement of both shoulder joints Social History Smoking Status: Former smoker ROS ROS ED Constitutional Constitutional ED: Denies chills or fever(s) ENT ENT ED: Reports sore throat; Denies rhinorrhea Cardiovascular Cardiovascular: Reports chest pain; Denies orthopnea or palpitations Respiratory/Chest Respiratory/Chest: Reports cough, dyspnea, dyspnea on exertion and sputum; Denies orthopnea Gastrointestinal Gastrointestinal: Denies abdominal pain, nausea or vomiting Genitourinary Genitourinary ED: Reports other Details: Reports chronic frequent nocturnal urination Musculoskeletal Musculoskeletal: Denies arthralgias or myalgias Integumentary Denies rash Psychiatric Psychiatric: Reports anxiety Hematologic/Lymphatic Hematologic/Lymphatic: Denies easy bleeding or easy bruising EXAM Physical Exam Const Vital Signs: 06/01/25 07:20 06/01/25 07:50 06/01/25 07:51 Temperature 98 F Temperature Source Oral Pulse Rate 72 64 Respiratory Rate 20 H 16 Respiratory Effort Normal Non-Labored Respiratory Depth Normal Respiratory Pattern Normal Normal Blood Pressure 153/77 H Blood Pressure Mean 102 Pulse Ox 95 Oxygen Delivery Method Room Air Room Air 06/01/25 08:18 06/01/25 08:47 06/01/25 09:42 Temperature Temperature Source Pulse Rate 67 75 82 Respiratory Rate 16 16 18 Respiratory Effort Respiratory Depth Respiratory Pattern Normal Normal Blood Pressure 139/76 H Blood Pressure Mean 97 Pulse Ox 94 Oxygen Delivery Method Room Air 06/01/25 11:00 06/01/25 11:59 Temperature 98.2 F Temperature Source Pulse Rate 80 80 Respiratory Rate 16 16 Respiratory Effort Respiratory Depth Respiratory Pattern Blood Pressure 156/85 H 156/85 H Blood Pressure Mean 108 108 Pulse Ox 98 98 Oxygen Delivery Method Positive well nourished and well developed General Appearance ED: well developed and NAD; Negative for pallor HEENT Reports moist mucous membranes Eyes PERRL Neck supple Resp normal respiratory effort Resp Narrative: Diminished breath sounds with in-store and expiratory wheezing present. Significantly diminished breath sounds at the left base compared to the right. No crackles appreciated Cardio regular rate, regular rhythm and no murmurs Cardio Narrative: 2+ radial and PT pulses present GI non-tender and non-distended Auscultation: normoactive bowel sounds Palpation: soft Extremity normal to inspection General Extremety ED: Negative for edema or tenderness General Extremity: Negative for edema Neuro oriented x3 Sensorium / Orientation: alert Motor Exam: Negative for general weakness Psych mental status grossly normal Skin no wounds General Skin Exam: Negative for jaundice or pallor MDM MDM MDM Narrative Medical decision making narrative: Patient evaluated for 2 to 3 days of worsening shortness of breath and chest tightness. Differential includes not limited to acute pleural effusion, ACS, pneumonia and COPD exacerbation. I considered pulmonary emboli but clinical exam much more consistent with COPD exacerbation versus pneumonia. Patient given breathing treatments as well as steroids in the emergency room. He does have a history of coronary artery disease's will obtain a cardiac. EKG does not show any signs of acute ischemia. High-sensitivity troponin minimally elevated at 32 but on repeat is also 32. Low suspicion is ACS as the cause. No leukocytosis. CMP normal. Chest x-ray viewed by myself as well as radiology shows granulomatous disease but no acute consolidation. Patient clinically improved with aerosols in the emergency room. Was given oral prednisone. Was ambulated however and was symptomatic and desatted to 85%. Because of the degree of desaturation to the patient would benefit from admission for further pulmonary treatments, steroids and also cover with IV azithromycin and further respiratory monitoring. He is agreeable with this plan. Case discussed with hospitalist, Dr. Le. She would like to CTA before going to the floor to ensure he does not have a pulmonary emboli. This is obtained and negative for any PE. Does show bilateral pulmonary nodule superimposed on emphysematous changes. Patient be admitted to [facility] floor. Lab Data Attestation: I reviewed the patient's lab results. Labs: Laboratory Results - last 24 hr 06/01/25 06/01/25 06/01/25 07:40 09:40 11:41 WBC 8.1 RBC 4.92 Hgb 14.1 Hct 42.7 MCV 86.8 MCH 28.7 MCHC 33.0 RDW Std Deviation 46.2 H RDW Coeff of Sherri 14.4 Plt Count 235 MPV 9.3 Immature Gran % (Auto) 0.600 Neut % (Auto) 71.4 H Lymph % (Auto) 15.9 L [place] % (Auto) 9.4 Eos % (Auto) 2.2 Baso % (Auto) 0.5 Absolute Neuts (auto) 5.8 Absolute Lymphs (auto) 1.29 Nucleated RBC % 0 Sodium 137 Potassium 4.4 Chloride 100 Carbon Dioxide 29.4 Anion Gap 8 BUN 26 H Creatinine 0.99 Estim Creat Clear Calc 50.93 Est GFR (MDRD) Non-Af 80 BUN/Creatinine Ratio 26.3 H Glucose 104 H Calcium 9.3 Total Bilirubin 0.70 AST 23 ALT 17 Alkaline Phosphatase 67 Troponin T High Sens 32 H D Troponin T Hi Sens 2 Hr 32 H Troponin T Hi Sens 4Hr 26 H NT pro BNP II 273 Total Protein 6.1 Albumin 4.0 Globulin 2.2 Albumin/Globulin Ratio 1.8 TSH 3.320 Radiography Diagnostic Testing: Clinical Impression(s) from Imaging Studies Chest X-Ray 06/01/25 08:04 IMPRESSION: 1. Interval decrease in size of the lingular and right middle lobe lesions. These were likely infectious/inflammatory. No new consolidation. 2. Granulomas. Reading Location: [facility] Chest CTA 06/01/25 11:12 IMPRESSION: No evidence of pulmonary embolism. Bilateral pulmonary nodules superimposed on emphysematous changes. Reading Location: [id number] Rhythm Strip Rhythm Strip: Sinus Rhythm Rate: 69 Ectopy: None EKG Initial EKG: Attestation: I personally reviewed and interpreted this EKG as follows: Interpretation: Sinus Rhythm Comments: Normal sinus rhythm at a rate of 69 bpm Normal axis Normal intervals Normal ST segments Compared to prior EKG patient has reversal of T wave inversions in the lateral/anterior leads Management Discussion w/another healthcare provider: Hospitalist Discharge Plan Dx/Rx/DC Orders Clinical Impression: Asthma exacerbation in COPD, History of coronary artery disease, Hypoxia Disposition Disposition: Acute Care Hospital [facility]
[2025-06-01] MEDS: 0.9% Normal Saline (500mL Bag) 500 ML 1000 ML IV (07:49)
[2025-06-01] MEDS: Albuterol 2.5 MG/3 ML VIAL.NEB. INHALATION ×3 (07:49→08:45)
[2025-06-01 07:53] LABS: Hematocrit 42.7 % (40-54); Hemoglobin 14.1 g/dL (13.0-16.5); Immature Granulocytes Count 0.050 X10^3/uL (0.0-0.0); Mean Corp Hgb Conc 33.0 g/dL (32-36); Mean Corpuscular Volume 86.8 fL (80-94); Mean Platelet Vol. 9.3 fl (6.2-12.0); NRBC Flagged by Analyzer 0 % (0-5); Platelet Count 235 K/mm3 (150-450); RBC Distribution Width CV 14.4 % (11.6-14.6); RBC Distribution Width SD 46.2 fl (35.1-43.9); Red Blood Count 4.92 M/mm3 (4.6-6.2); White Blood Count 8.1 K/mm3 (4.4-11.0)
--- NOTE | 2025-06-01 08:04 | RAD_ITS ---
PROCEDURE: CHEST PA AND LATERAL 06/01/2025 REASON FOR EXAM: SOB TECHNIQUE: Procedure Code: RADCXR Modality: DX Procedure: CHEST PA AND LATERAL COMPARISON: December 01, 2024 FINDINGS: Hardware: EKG leads. Suture anchors at the humeral heads. Heart: Normal Mediastinum: No mass. Calcified granulomas preaortic and right lower paratracheal region. Lungs: The consolidation and adjacent airspace disease associated with the cavitary nodule in the lingula is smaller. Nodule right middle lobe decreased. No new consolidation. Bones: Degenerative changes are identified within the thoracic spine. RAD/Chest PA and Lateral IMPRESSION: 1. Interval decrease in size of the lingular and right middle lobe lesions. T hese were likely infectious/inflammatory. No new consolidation. 2. Granulomas. Reading Location: [id number]
[2025-06-01 08:12] LABS: AST(SGOT) 23 U/L (<=37); Alanine Aminotransfer ALT/SGPT 17 U/L (<=46); Albumin, Serum 4.0 g/dL (3.4-4.8); Alkaline Phosphatase 67 U/L (40-129); Anion Gap 8 (5-15); BUN 26 mg/dL (4-19); BUN/Creat Ratio 26.3 RATIO (10-20); Calcium,Total 9.3 mg/dL (7.6-11.0); Carbon Dioxide 29.4 mmol/L (21.0-32.0); Chloride 100 mmol/L (98-108); Estimated Creatinine Clearance 50.93 ml/min (50-250); Globulin 2.2 g/dL (2.2-4.2); Glucose 104 mg/dL (70-99); Potassium 4.4 mmol/L (3.3-5.1)
[2025-06-01 08:19] LABS: Troponin T High Sensitivity 32 ng/L (<=22)
[2025-06-01 10:15] LABS: Troponin T High Sens 2 HR 32 ng/L (<=22)
--- NOTE | 2025-06-01 10:56 | HP.PCM.HOS_ITS ---
HPI - General General Date of Admission: 06/01/25 Date of Service: 06/01/25 Chief Complaint: Shortness of breath HPI Narrative BRANDON QUINN, is a 74 M who presented to the emergency department at [facility] on 06/01/2025 with chief complaint of shortness of breath. Patient states she has had symptoms of shortness of breath that have been slowly worsening but really got bad in the last 24 to 48 hours. He states has had a dry cough with some intermittent production of sputum that is greenish in nature which is different from his baseline. He has been extremely short of breath especially when he moves around. He states he feels better when he rests. He has been taking his inhalers at home. He has had no fever or chills. He denies myalgias or arthralgias. He denies nausea or vomiting. He has had no diarrhea or constipation. He states he was able to work but was just very fatigued last night so we decided to be evaluated in the emergency department with his ongoing shortness of breath. He has followed previously with Dr. Perez follow-up Dr. Jara not call he still in PACU as far as I know are you going to talk to the son you from pulmonary medicine. Vital signs on presentation showed a temperature of 98, heart rate 72, respiratory 20, blood pressure of 153/77 pulse ox was 95% on room air however ambulatory pulse ox was done after he was treated by the emergency department physician and he did desat. Oxygen saturation with ambulation was 85 in the emergency department and has improved to 89 once he is on the floor. CBC showed a normal white count but he did have a mild left shift with a 71.4% neutrophilia. Chemistry panel was unremarkable. His initial troponin was 32 with a delta of 32 and a 4-hour troponin of 26. TSH was within normal limits. BNP was normal. We had a CTA of his chest and was found to have no evidence of PE, no infiltrate but does have bilateral pulmonary nodule superimposed on emphysematous changes. Patient does indicate he has had previous pulmonary nodules that have been followed with Dr. Perez as an outpatient. He was treated for COPD exacerbation emergency department and request for admission was made. He will be admitted to [facility] and at the time of admission I do anticipate at least 2 midnight stay. [facility] Medical History COPD (chronic obstructive pulmonary disease) Hypertension Aortic stenosis Elevated coronary artery calcium score Urinary retention Heart murmur Anxiety On home oxygen therapy Acute hypoxemic respiratory failure Pneumonia COPD (chronic obstructive pulmonary disease) [place] (hard of hearing) Hypertension Home Medications ?Medication ?Instructions ?Recorded ?Last Taken ?Type amlodipine 5 mg tablet 5 mg PO DAILY blood pressure 03/06/21 06/01/25 History albuterol sulfate 2.5 mg/3 mL 2.5 mg (3 mL) inhalation Q4H PRN 12/11/23 06/01/25 Rx (0.083 %) solution for nebulization #25 vials garlic 1,000 mg capsule 1,000 mg PO DAILY general he alth 12/17/23 Unknown History vitamin E 268 mg (400 unit) capsule 268 mg PO DAILY bl ood clot 12/17/23 06/01/25 History prevention alprazolam 0.25 mg tablet (Xanax) 0.375 mg PO QHS anxi ety 02/28/24 05/31/25 History fluticasone fur. 100 mcg-umeclid 1 inh inhalation SUDHAKAR Y 02/28/24 06/01/25 History 62.5 mcg-vilant 25 mcg inhalat.powder (Trelegy Ellipta) albuterol sulfate 90 mcg/actuation 1 inh inhalation Q6 H PRN shortness 12/01/24 05/31/25 History aerosol inhaler of breath or wheezing prednisone 5 mg tablet 5 mg PO DAILY PRN sob 05/31/25 History Allergy/AdvReac Type Severity Reaction Status Date / Time No Known Allergies Allergy Verified 06/01/25 07:22 Surgical History Hx of hernia repair History of replacement of both shoulder joints Social History (Updated 06/01/25 @ 16:[address] Karen Le DO) household members: spouse housing: house Smoking Status: Former smoker alcohol intake: never substance use type: does not use ROS Constitutional Constitutional: Reports change in weight, fatigue and weakness; Denies anorexia, chills, fever(s), malaise, night sweats or other Eyes Eyes: Denies blurry vision, change in eye color, change in vision, discharge from eye(s), double vision, erythema, eye pain, loss of vision or other ENT HEENT: Denies abnormal hearing, dysphagia, ear pain, epistaxis, headache(s), hearing loss, nasal congestion, nasal discharge, post nasal drip, sinus pressure, sore throat or other Cardiovascular Cardiovascular: Reports dyspnea on exertion; Denies chest pain, claudication, edema, lightheadedness, orthopnea, palpitations, paroxysmal nocturnal dyspnea, rapid heart rate, syncope or other Respiratory/Chest Respiratory/Chest: Reports cough, dyspnea, excessive phlegm production, productive cough, shortness of breath at rest, shortness of breath with exertion and wheezing; Denies hemoptysis or other Gastrointestinal Gastrointestinal: Denies abdominal pain, coffee ground emesis, constipation, diarrhea, dyspepsia, hematemesis, hematochezia, loose stools, melena, nausea, vomiting or other Genitourinary Genitourinary: Denies burning urination, difficulty urinating, dysuria, hematuria, nocturia, urinary frequency, urinary hesitancy, urinary incontinence, urinary urgency or other Musculoskeletal Musculoskeletal: Denies arthralgias, back pain, joint pain, joint stiffness, joint swelling, myalgias, neck pain or other Neurologic Neurologic: Denies abnormal gait, abnormal speech, confusion, disequilibrium, dizziness, focal weakness, headache(s), numbness, paresthesias, seizure-like activity, seizures, syncope, tingling, tremor(s) or other Psychiatric Psychiatric: Denies anxiety, depression, homicidal ideation, suicidal ideation or other Endocrine Endocrinology: Denies change in body appearance, cold intolerance, excessive sweating, heat intolerance, polydipsia, polyuria or other Hematologic/Lymphatic Hematologic/Lymphatic: Denies anemia, easy bleeding, easy bruising, lymphadenopathy or other Allergic/Immunologic Allergic/Immunologic: Denies rhinitis, hives, eczemia, asthma or other Vital Signs Vital Signs Vital Signs: 06/01/25 07:20 06/01/25 07:50 06/01/25 07:51 Temperature 98 F Temperature Source Oral Pulse Rate 72 64 Respiratory Rate 20 H 16 Respiratory Effort Normal Non-Labored Respiratory Depth Normal Respiratory Pattern Normal Normal Blood Pressure 153/77 H Blood Pressure Mean 102 Pulse Ox 95 Oxygen Delivery Method Room Air Room Air 06/01/25 08:18 06/01/25 08:47 06/01/25 09:42 Temperature Temperature Source Pulse Rate 67 75 82 Respiratory Rate 16 16 18 Respiratory Effort Respiratory Depth Respiratory Pattern Normal Normal Blood Pressure 139/76 H Blood Pressure Mean 97 Pulse Ox 94 Oxygen Delivery Method Room Air Weight Weight: 55 kg Body Mass Index (BMI) 19.5 Physical Exam Const alert, oriented x3 and no apparent distress; Negative for average body habitus, healthy appearing or well nourished Constitutional Narrative: Thin, older, white male, sitting up in chair, eating dinner, appears comfortable, nontoxic, currently with comfortable breathing on room air General Appearance: cooperative HEENT normocephalic, head/scalp atraumatic and moist oral mucous membranes; Negative for hearing grossly normal bilaterally HEENT Narrative: Dentition is poor, Mallampati is 1, no thrush, mild hearing loss Neck supple Neck Narrative: Trachea midline Resp normal respiratory effort, no retractions, no use of accessory muscles and No clear to auscultation bilaterally Resp Narrative: Diffusely diminished with scattered and expiratory wheezes Auscultation: wheezes; Negative for crackles or rhonchi Cardio regular rate, regular rhythm, S1 normal heart sound, S2 normal heart sound, no rub and no clicks; Negative for no murmurs Cardio Narrative: 3 out of 6 systolic murmur loudest at right upper sternal border GI normal to inspection, nondistended, normoactive bowel sounds, soft to palpation and non-tender Extremity no clubbing, cyanosis or edema Extremity Narrative: Decreased lean muscle mass Neuro moves all extremities and no focal motor deficits Speech: speech normal Psych affect normal Psych Narrative: very pleasant, makes good eye contact, interacts appropriately Results Lab / Micro Data 06/01/25 07:40 06/01/25 07:40 Labs: Laboratory Results - last 24 hr 06/01/25 07:40: WBC 8.1, RBC 4.92, Hgb 14.1, Hct 42.7, MCV 86.8, MCH 28.7, MCHC 33.0, RDW Std Deviation 46.2 H, RDW Coeff of Sherri 14.4, Plt Count 235, MPV 9.3, Immature Gran % (Auto) 0.600, Neut % (Auto) 71.4 H, Lymph % (Auto) 15.9 L, [place] % (Auto) 9.4, Eos % (Auto) 2.2, Baso % (Auto) 0.5, Absolute Neuts (auto) 5.8, Absolute Lymphs (auto) 1.29, Nucleated RBC % 0, Sodium 137, Potassium 4.4, Chloride 100, Carbon Dioxide 29.4, Anion Gap 8, BUN 26 H, Creatinine 0.99, Estim Creat Clear Calc 50.93, Est GFR (MDRD) Non-Af 80, BUN/Creatinine Ratio 26.3 H, G lucose 104 H, Calcium 9.3, Total Bilirubin 0.70, AST 23, ALT 17, Alkaline Phosphatase 67, Troponin T High Sens 32 H D, Total Protein 6.1, Albumin 4.0, Globulin 2.2, Albumin/Globulin Ratio 1.8, TSH 3.320 06/01/25 09:40: Troponin T Hi Sens 2 Hr 32 H Rhythm Strip Rhythm Strip: Sinus Rhythm Rate: 69 Ectopy: None Imaging Radiology Impression Chest X-Ray 06/01/25 08:04 IMPRESSION: 1. Interval decrease in size of the lingular and right middle lobe lesions. These were likely infectious/inflammatory. No new consolidation. 2. Granulomas. Reading Location: [facility] Assessment & Plan Assessment/Plan (1) Hypoxia: (2) Elevated troponin: (3) Increased sputum production: (4) Pulmonary nodules: PLAN: Plan Exertional hypoxia secondary to acute exacerbation of COPD - Patient with change in sputum production color and volume and per Gold guidelines will start antibiotics with Levaquin 750 daily - CTA of the chest does not show infiltrate or PE - Aggressive pulmonary toilet - Steroids 40 every 8 - Incentive spirometer - Mucinex 1200 p.o. twice daily - Acapella 10 times every 2 hours while awake - Check sputum culture if able - COVID/flu/RSV is negative - Check respiratory viral panel - Hold home inhalers for now Troponin elevation - Suspect related to mild hypoxia with exertion - Initial was 32 with a delta of 32 and a 4-hour troponin of 26 within normal BNP - no further workup at this time as patient has had recent stress test and cardiac catheterization within last 12 months and had nonobstructive disease at that time COPD with emphysematous changes - See therapy above - Restart home inhalers at discharge Pulmonary nodules - Several noted - Will have follow-up with pulmonary medicine after discharge Essential hypertension Continue home amlodipine Nonobstructive CAD - Patient is on no medical therapy at this time per his wishes Mild aortic stenosis - Last echo 06/05/2025 - Ongoing outpatient follow-up Anxiety - Continue home Xanax DVT prophylaxis - Subcu Lovenox 40 daily CODE STATUS - Full code is verified at the time of admission Charges/Coding Visit Charges Inpatient E&M: 40315 Init Hosp L2
[2025-06-01] MEDS: Azithromycin 500 MG in 0.9% Normal Saline (250mL Bag) 250 ML 250 MG IV (10:57)
--- NOTE | 2025-06-01 11:12 | CT_ITS ---
PROCEDURE: CTA CHEST W/WO CONTRAST 06/01/2025 REASON FOR EXAM: HYPOXIA TECHNIQUE: Procedure Code: [id number] Modality: CT Procedure: CTA CHEST W/WO CONTRAST Multiplanar Sagittal and Coronal images were obtained. 3D post processing was performed CONTRAST: Isovue-300 VOLUME: 100 mL One or more dose reduction techniques were used (e.g., Automated exposure control, adjustment of the mA and/or kV according to patient size, use of iterative reconstruction technique). RADIATION DOSE SUMMARY: CTDlvol: 6.25 mGy DLP: 186.86 mGycm COMPARISON: Prior CT scan of the thorax dated May 28, 2024. FINDINGS: Hardware: None Lymph nodes: No significant lymph nodes are seen. Heart: Coronary artery calcification Thoracic Aorta: No thoracic aortic aneurysm or dissection. Pulmonary Vessels: No evidence of pulmonary embolism. Lungs and Airways: There is a 19.7 mm x 15.2 mm nodule in the anterior aspect of the left upper lobe. 1 cm nodule in the peripheral lateral aspect of the left lower lobe as seen on axial image number 114 there is a 4.9 mm nodule in the lateral aspect of the right middle lobe as seen on axial image number 88. There is a 12.7 mm nodule in the lateral aspect of the right lower lobe as seen on axial image number 75. Stable epicardial soft tissue density adjacent to the inferior vena cava. Diffuse emphysematous changes. Pleura: No pleural effusion. Upper Abdomen: 6 mm nonobstructive calculus in the upper pole calyx of the left kidney. Bones: CT/CTA Chest W/WO Contrast IMPRESSION: No evidence of pulmonary embolism. Bilateral pulmonary nodules superimposed on emphysematous changes. Reading Location: [id number]
[2025-06-01 11:31] LABS: Pro- Brain NATRIURETIC PEPTIDE 273 pg/mL (<=900)
[2025-06-01 12:17] LABS: Troponin T High Sens 4 HR 26 ng/L (<=22)
[2025-06-01] MEDS: 0.9% Saline Lock 10 ML Syringe IV (14:28)
[2025-06-02] VITALS (8 sets, daily range): BP systolic 131–139; BP diastolic 69–81; PULSE 65–93; RESP 16–18; TEMP 36.3–36.6; O2SAT 90–97
[2025-06-02 06:46] LABS: Hematocrit 38.0 % (40-54); Hemoglobin 12.8 g/dL (13.0-16.5); Immature Granulocytes Count 0.030 X10^3/uL (0.0-0.0); Mean Corp Hgb Conc 33.7 g/dL (32-36); Mean Corpuscular Volume 86.4 fL (80-94); Mean Platelet Vol. 9.5 fl (6.2-12.0); NRBC Flagged by Analyzer 0 % (0-5); POSITIVE DIFFERENTIAL YES; Platelet Count 229 K/mm3 (150-450); RBC Distribution Width CV 14.3 % (11.6-14.6); RBC Distribution Width SD 45.5 fl (35.1-43.9); Red Blood Count 4.40 M/mm3 (4.6-6.2); White Blood Count 8.0 K/mm3 (4.4-11.0)
[2025-06-02 07:09] LABS: AST(SGOT) 20 U/L (<=37); Alanine Aminotransfer ALT/SGPT 19 U/L (<=46); Albumin, Serum 3.7 g/dL (3.4-4.8); Alkaline Phosphatase 60 U/L (40-129); Anion Gap 8 (5-15); BUN 23 mg/dL (4-19); BUN/Creat Ratio 31.4 RATIO (10-20); Calcium,Total 9.2 mg/dL (7.6-11.0); Carbon Dioxide 27.5 mmol/L (21.0-32.0); Chloride 101 mmol/L (98-108); Estimated Creatinine Clearance 61.33 ml/min (50-250); Globulin 1.9 g/dL (2.2-4.2); Glucose 165 mg/dL (70-99); Magnesium 2.0 mg/dL (1.5-2.2); Potassium 4.7 mmol/L (3.3-5.1)
[2025-06-02] MEDS: FLU VACCINE HIGH DOSE 25-26(65YR UP) 180 MCG/0.5 ML SYRINGE IM (07:40)
--- NOTE | 2025-06-02 10:48 | CASEMGMT ---
Pt does not qualify for home oxygen.
--- NOTE | 2025-06-02 11:30 | CASEMGMT ---
RN?CM?ASSESSMENT ? RN?CM?to room to meet with patient for initial transition planning/care coordination?assessment.?RN?CM?introduced self and role at [facility].? Pt voices understanding and consents to?assessment?at this time.? Pt sitting on edge of bed in no distress at this time, @ bedside.? Pt is A/O at this time and answers all questions appropriately.?? Care providers, pharmacy, and demographics verified/updated at this time. ? Strata: 2 PCP: ADELSO Erickson Specialists: Dr Meyer ([facility] in [place]) Preferred Pharmacy: [facility] Retail Insurance: [facility] [place] Pres[place] Benefit:?none LNOK: Jaylyn Living Arrangements: Lives w/ in 2-story home w/flat entrance. Independent w/ADL's. manages home tasks. Transportation:?Hire drivers. Pt would like to utilize [facility] van transport @ [place]. DME: States has the following DME:?cane (uses outside PRN), walker available/does not use, nebulizer, pulse ox. Pt has a personal portable O2 concentrator he uses PRN. He states his PCP is aware of this. He & educated on importance of notifying PCP or coming to the hospital to be evaluated if he starts noticing pulse ox is dropping or having increase in SOB instead of just treating himself w/O2 or increasing O2 liter flow rate. They voice understanding. HHC/SNF: No hx. No needs identified. Pt declines need for therapy or HHC. ? Pt and wish for pt to return home and states has no concerns with going home at time of discharge. ? PLAN:??Home ? Steve JOSEN?RN?CM
--- NOTE | 2025-06-02 11:53 | PCM.DC.SUM ---
Providers Date of Admission: 06/01/25 Date of Discharge: 06/02/25 Primary Care Physician: Michelle Erickson, CHUCKYC Reason For Visit: AECOPD Diagnosis Discharge Diagnosis (1) Hypoxia: Status: Acute Code(s): R09.02 - Hypoxemia (2) Elevated troponin: Status: Acute Code(s): R79.89 - Other specified abnormal findings of blood chemistry (3) Increased sputum production: Status: Acute Code(s): R09.3 - Abnormal sputum (4) Pulmonary nodules: Status: Acute Code(s): R91.8 - Other nonspecific abnormal finding of lung field Plan Exertional hypoxia secondary to acute exacerbation of COPD - Patient with change in sputum production color and volume and per Gold guidelines will start antibiotics with Levaquin 750 daily - CTA of the chest does not show infiltrate or PE - Aggressive pulmonary toilet - Steroids 40 every 8 - Incentive spirometer - Mucinex 1200 p.o. twice daily - Acapella 10 times every 2 hours while awake - Check sputum culture if able - COVID/flu/RSV is negative - Check respiratory viral panel - Hold home inhalers for now Troponin elevation - Suspect related to mild hypoxia with exertion - Initial was 32 with a delta of 32 and a 4-hour troponin of 26 within normal BNP - no further workup at this time as patient has had recent stress test and cardiac catheterization within last 12 months and had nonobstructive disease at that time COPD with emphysematous changes - See therapy above - Restart home inhalers at discharge Pulmonary nodules - Several noted - Will have follow-up with pulmonary medicine after discharge Essential hypertension Continue home amlodipine Nonobstructive CAD - Patient is on no medical therapy at this time per his wishes Mild aortic stenosis - Last echo 06/05/2025 - Ongoing outpatient follow-up Anxiety - Continue home Xanax DVT prophylaxis - Subcu Lovenox 40 daily CODE STATUS - Full code is verified at the time of admission Medications at Discharge Home Medications amlodipine 5 mg tablet 5 mg PO DAILY blood pressure 03/06/21 albuterol sulfate 2.5 mg/3 mL (0.083 %) solution for nebulization 2.5 mg (3 mL) inhalation Q4H PRN #25 vials 12/11/23 garlic 1,000 mg capsule 1,000 mg PO DAILY general health 12/17/23 vitamin E 268 mg (400 unit) capsule 268 mg PO DAILY blood clot prevention 12/17/23 alprazolam 0.25 mg tablet (Xanax) 0.375 mg PO QHS anxiety 02/28/24 fluticasone fur. 100 mcg-umeclid 62.5 mcg-vilant 25 mcg inhalat.powder (Trelegy Ellipta) 1 inh inhalation DAILY 02/28/24 albuterol sulfate 90 mcg/actuation aerosol inhaler 1 inh inhalation Q6H PRN shortness of breath or wheezing 12/01/24 prednisone 5 mg tablet 5 mg PO DAILY PRN sob 06/01/25 Held on 06/02/25. Instructions: hold until off prednisone guaifenesin 1,200 mg tablet, extended release 12 hr (Mucus Relief ER) 1,200 mg PO BID #0 tabs 06/02/25 levofloxacin 750 mg tablet 750 mg PO DAILY #5 tabs 06/02/25 prednisone 10 mg tablet 10 mg PO DAILY #30 tabs 06/02/25 Hospital Course Summary of Care Provided Minutes Spent on Discharge: 36 Hospital Course: BRANDON QUINN, is a 74 M who presented to the emergency department at [facility] on 06/01/2025 with chief complaint of shortness of breath. Patient states she has had symptoms of shortness of breath that have been slowly worsening but really got bad in the last 24 to 48 hours. He states has had a dry cough with some intermittent production of sputum that is greenish in nature which is different from his baseline. He has been extremely short of breath especially when he moves around. He states he feels better when he rests. He has been taking his inhalers at home. He has had no fever or chills. He denies myalgias or arthralgias. He denies nausea or vomiting. He has had no diarrhea or constipation. He states he was able to work but was just very fatigued last night so we decided to be evaluated in the emergency department with his ongoing shortness of breath. He has followed previously with Dr. Perez from pulmonary medicine. Vital signs on presentation showed a temperature of 98, heart rate 72, respiratory 20, blood pressure of 153/77 pulse ox was 95% on room air however ambulatory pulse ox was done after he was treated by the emergency department physician and he did desat. Oxygen saturation with ambulation was 85 in the emergency department and has improved to 89 once he is on the floor. CBC showed a normal white count but he did have a mild left shift with a 71.4% neutrophilia. Chemistry panel was unremarkable. His initial troponin was 32 with a delta of 32 and a 4-hour troponin of 26. TSH was within normal limits. BNP was normal. We had a CTA of his chest and was found to have no evidence of PE, no infiltrate but does have bilateral pulmonary nodule superimposed on emphysematous changes. Patient does indicate he has had previous pulmonary nodules that have been followed with Dr. Perez as an outpatient. The patient's did then verify that he actually follows in [place] and now as they were not pleased with the input here and he just had an appointment with stable lung nodules with an upcoming appointment in August 2025. I encouraged him strongly to keep this appointment. He was admitted to the medical floor and given the change in his sputum was placed on Levaquin p.o., aggressive aerosols, IV steroids, incentive spirometry, and Acapella. Patient improved more quickly than anticipated and was on room air continuously at rest and with exertion on 06/02/2025. He was anxious to go home. He will reinitiate his home inhalers. We started him on a prednisone taper and he will complete a course of Levaquin for another 5 days. Patient was discharged home in stable condition on 06/02/2025. He is follow-up with his primary care physician within the next week. Pt improved more quickly than anticipated at the time of admission Physical Exam Const alert, oriented x3, no apparent distress and no limitations; Negative for average body habitus, healthy appearing or well nourished Constitutional Narrative: Thin, older, white male, sitting up in chair, eating dinner, appears comfortable, nontoxic, currently with comfortable breathing on room air General Appearance: cooperative, comfortable, well kempt and well developed Exam Limitations: no limitations Nutritional Appearance: thin HEENT normocephalic, head/scalp atraumatic and moist oral mucous membranes; Negative for hearing grossly normal bilaterally HEENT Narrative: No thrush Eyes conjunctivae normal Eyes Narrative: No scleral icterus Neck supple Neck Narrative: Trachea midline Resp normal respiratory effort, no retractions, no use of accessory muscles and clear to auscultation bilaterally Resp Narrative: Diffusely diminished but now clear Auscultation: Negative for crackles, rhonchi or wheezes Cardio regular rate, regular rhythm, S1 normal heart sound, S2 normal heart sound, no rub, no gallops and no clicks; Negative for no murmurs Cardio Narrative: 3 out of 6 systolic murmur loudest at right upper sternal border GI normal to inspection, nondistended, normoactive bowel sounds, soft to palpation and non-tender Extremity no clubbing, cyanosis or edema Extremity Narrative: Decreased lean muscle mass Skin no jaundice, no petechiae and no mottling Skin Narrative: Bilateral hand onychomycosis right greater than left Neuro moves all extremities and no focal motor deficits Speech: speech normal Psych affect normal Psych Narrative: very pleasant, makes good eye contact, interacts appropriately Weight / BMI Weight Weight: 53.524 kg Body Mass Index (BMI) 19.0 ABG / Lab / Microbiology Data 06/02/25 06:11 06/02/25 06:11 Laboratory: Laboratory Results - last 24 hr 06/02/25 06:11: WBC 8.0, RBC 4.40 L, Hgb 12.8 L, Hct 38.0 L, MCV 86.4, MCH 29.1, MCHC 33.7, RDW Std Deviation 45.5 H, RDW Coeff of Sherri 14.3, Plt Count 229, MPV 9.5, Immature Gran % (Auto) 0.400, Neut % (Auto) 92.5 H, Lymph % (Auto) 4.5 L, Hall % (Auto) 2.5, Eos % (Auto) 0.0, Baso % (Auto) 0.1, Absolute Neuts (auto) 7.4, Absolute Lymphs (auto) 0.36 L, Nucleated RBC % 0, Sodium 137, Potassium 4.7, Chloride 101, Carbon Dioxide 27.5, Anion Gap 8, BUN 23 H, Creatinine 0.73, Estim Creat Clear Calc 61.33, Est GFR (MDRD) Non-Af 95, BUN/Creatinine Ratio 31.4 H, Glucose 165 H, Calcium 9.2, Phosphorus 3.2, Magnesium 2.0, Total Bilirubin 0.44, AST 20, ALT 19, Alkaline Phosphatase 60, Total Protein 5.6 L, Albumin 3.7, Globulin 1.9 L, Albumin/Globulin Ratio 2.0 Microbiology: Microbiology 06/01/25 13:45 Mucosa - Nasopharyngeal Respiratory Panel (PCR) - Final 06/01/25 11:09 Mucosa - Nose SARS-CoV-2, Influenza & RSV (PCR) - Final D/C Instructions Discharge Activity: Return to Normal Activity DC O2, CPAP, BIPAP Needs Home O2 Discharge instructions: No DC home with Oxygen: No Meaningful Use Info Meaningful Use Meaningful Use Diagnoses (Choose all that apply): None applicable Discharge Plan Admission Admit Date/Time: 06/01/25 12:28 Primary Reason for Your Visit: Shortness of Breath Attending Provider: Karen Le Primary Care Provider: Michelle Erickson MANAGER QUALITY Instructions Additional Instructions / Restrictions: 1. Please follow up with your lehr attendant in [place] in Aug as scheduled Discharge Orders/Prescriptions Prescriptions: New levofloxacin 750 mg Tablet 750 mg PO DAILY Qty: 5 0RF Rx Instructions: take at HS guaifenesin [Mucus Relief ER] 1,200 mg Tablet Extended Release 12hr 1,200 mg PO BID Qty: 0 0RF prednisone 10 mg tablet 10 mg PO DAILY Qty: 30 0RF Rx Instructions: 4 tabs x 3 days, 3 tabs x 3 days, 2 tabs x 3 days, 1 tab x 3 day Continued Trelegy Ellipta 100-62.5-25 mcg blister with device 1 inh inhalation DAILY amlodipine 5 mg tablet 5 mg PO DAILY Patient Comments: Take 1 tablet by mouth once daily. vitamin E 268 mg (400 unit) capsule 268 mg PO DAILY garlic 1,000 mg capsule 1,000 mg PO DAILY Patient Comments: pt states he only takes once in a while alprazolam [Xanax] 0.25 mg tablet 0.375 mg PO QHS Patient Comments: takes 1.5 tabs albuterol sulfate 90 mcg/actuation HFA aerosol inhaler 1 inh inhalation Q6H PRN (Reason: shortness of breath or wheezing) albuterol sulfate 2.5 mg /3 mL (0.083 %) solution for nebulization 2.5 mg inhalation Q4H PRN Qty: 25 0RF Rx Instructions: Use q4 hours and PRN for wheezing Held prednisone 5 mg tablet 5 mg PO DAILY PRN Hold Instructions: hold until off prednisone Patient Comments: pt states he takes 1/2 to 1 tab before be if he feels sob. Referrals / Follow Up: ROWENA ERICKSON [Other] Kapper,Michelle Sanaz MANAGER QUALITY, MANAGER QUALITY-C [Primary Care Provider, Medical] - Within 1 Week Disposition Disposition (needs filled in before D/C Order can be placed): Home, Self Care Charges/Coding Visit Charges Inpatient E&M: 51325 Disch Hosp >30min
--- NOTE | 2025-06-02 11:56 | CASEMGMT ---
Addendum entered by Sona Garcia 06/02/25 12:11: RN CM into pt room, pt aware that the dc meds are in. They are aware that the van can now take them at 1:15. to go to pharmacy in approx 15 min to get meds so there will not be an issue in getting to the van in time. Original Note: Received tc from [facility] van who states if pt can be at main entrance at 1:15pm, they can take pt home. Updated pt nurse as well as hospitalist.
--- NOTE | 2025-06-02 12:28 | PHA.DC_ITS ---
Pharmacy [facility] has performed discharge medication reconciliation and counseling for this patient. 1. GUAIFENESIN 1200MG PO BID 2. LEVOFLOXACIN 750MG PO QHS X 5 DAYS 3. PREDNISONE 40MG PO DAILY X 3 DAYS, THEN 30MG X 3 DAYS, THEN 20MG X 3 DAYS, THEN 10MG X 3 DAYS. RESUME PRN PREDNISONE ONCE FINISHED The patient's discharge medication list was reviewed for discrepancies and discrepancies were resolved. The patient was counseled on the following discharge medications and changes in medications for homegoing were reviewed. The Reason for Use, instructions for use, and potential side effects were reviewed for all new medications. The patient's questions regarding all of their medications were answered. The patient was able to verbally demonstrate an understanding of their discharge medications. Medications at Discharge Home Medications amlodipine 5 mg tablet 5 mg PO DAILY blood pressure 03/06/21 albuterol sulfate 2.5 mg/3 mL (0.083 %) solution for nebulization 2.5 mg (3 mL) inhalation Q4H PRN #25 vials 12/11/23 garlic 1,000 mg capsule 1,000 mg PO DAILY general health 12/17/23 vitamin E 268 mg (400 unit) capsule 268 mg PO DAILY blood clot prevention 12/17/23 alprazolam 0.25 mg tablet (Xanax) 0.375 mg PO QHS anxiety 02/28/24 fluticasone fur. 100 mcg-umeclid 62.5 mcg-vilant 25 mcg inhalat.powder (Trelegy Ellipta) 1 inh inhalation DAILY 02/28/24 albuterol sulfate 90 mcg/actuation aerosol inhaler 1 inh inhalation Q6H PRN shortness of breath or wheezing 12/01/24 prednisone 5 mg tablet 5 mg PO DAILY PRN sob 06/01/25 Held on 06/02/25. Instructions: hold until off prednisone guaifenesin 1,200 mg tablet, extended release 12 hr (Mucus Relief ER) 1,200 mg PO BID #0 tabs 06/02/25 levofloxacin 750 mg tablet 750 mg PO DAILY #5 tabs 06/02/25 prednisone 10 mg tablet 10 mg PO DAILY #30 tabs 06/02/25
== END 2025-06-02 13:04 | disposition home or self-care (01) | DRG 192 ==
LOC: ED 12:23 → MS3 12:36
PROVIDERS: Admitting Provider Internal Medicine; Emergency Provider Emergency Medicine; PCP Nurse Practitioner Family; Visit Provider Internal Medicine
DX: J44.1 Chronic obstructive pulmonary disease with (acute) exacerbation (principal); F41.9 Anxiety disorder, unspecified; I35.0 Nonrheumatic aortic (valve) stenosis; I10 Essential (primary) hypertension; I25.10 Atherosclerotic heart disease of native coronary artery without angina pectoris; Z23 Encounter for immunization; R09.02 Hypoxemia; R91.8 Other nonspecific abnormal finding of lung field; R79.89 Other specified abnormal findings of blood chemistry; Z11.52 Encounter for screening for COVID-19; Z79.51 Long term (current) use of inhaled steroids; Z87.891 Personal history of nicotine dependence
CPT/HCPCS: 36415; 71046; 71275; 80053; 83735; 83880; 84100; 84443; 84484; 85025; 87631; 87633; 93005; 94640; 94668; 99285; Q9967; A4216

== ENCOUNTER 2025-07-16 06:35 | Emergency (ER) | payer OTHER, SELFPAY ==
[2025-07-16] VITALS (10 sets, daily range): BP systolic 109–151; BP diastolic 71–95; PULSE 79–107; RESP 16–25; TEMP 36.6–37; O2SAT 78–99; BMI 19.5
--- NOTE | 2025-07-16 06:30 | EKG12_ITS ---
Test Reason : CHEST PAIN Blood Pressure : */* mmHG Vent. Rate : 92 BPM Atrial Rate : 92 BPM P-R Int : 132 ms QRS Dur : 68 ms QT Int : 344 ms P-R-T Axes : 79 79 70 degrees QTcB Int : 425 ms Normal sinus rhythm Nonspecific ST abnormality Abnormal ECG Confirmed by MIGUELINA JOHNS, RUSTY ([id number]), photographic editor SEBASTIEN ROMERO ([id number]) on 07/19/2025 1:18:11 PM Referred By: Confirmed By: RUSTY MCINTYRE MD
--- NOTE | 2025-07-16 07:10 | ED.VIS.CHEST ---
HPI History of Present Illness Chief Complaint: Chest Pain Informant: patient and spouse/S.O. Narrative Narrative: 74-year-old male presenting to the emergency room with chief complaint of chest pain shortness of breath. Patient notes a history of COPD and a heart murmur (reported aortic stenosis). Patient states yesterday he was chilled for most of the day. He states that he has had sharp nearly constant pain in the left anterior ribs extending just below his rib cage. He states it does not grab him and nothing seems to make it better or worse. He does have oxygen at home that he wears at night typically puts it on before bed and then takes it off when his oxygen gets up. He takes Xanax before bedtime. He states that that he gets up 4-5 times at night and urinates but has been told is not his prostate. He wonders if he needs a different medication other than Xanax. He states that he is willing to try wearing his oxygen during the night. He notes a cough has been slightly worse than normal as well as green sputum. He denies any known fever. He notes his legs are slightly swollen compared to normal. 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 He wonders if some of the fumes have been affecting his breathing. [facility] Medical History Pulmonary nodules Elevated troponin COPD (chronic obstructive pulmonary disease) Hypertension Aortic stenosis Elevated coronary artery calcium score Urinary retention Heart murmur Anxiety On home oxygen therapy Acute hypoxemic respiratory failure Pneumonia COPD (chronic obstructive pulmonary disease) [place] (hard of hearing) Hypertension Home Medications ?Medication ?Instructions ?Recorded ?Last Taken ?Type amlodipine 5 mg tablet 5 mg PO DAILY blood pressure 03/06/21 06/01/25 History albuterol sulfate 2.5 mg/3 mL 2.5 mg (3 mL) inhalation Q4H PRN 12/11/23 06/01/25 Rx (0.083 %) solution for nebulization #25 vials garlic 1,000 mg capsule 1,000 mg PO DAILY general health 12/17/23 Unknown History vitamin E 268 mg (400 unit) capsule 268 mg PO DAILY blood clot 12/17/23 06/01/25 History prevention alprazolam 0.25 mg tablet (Xanax) 0.375 mg PO QHS anxiety 02/28/24 05/31/25 History fluticasone fur. 100 mcg-umeclid 1 inh inhalation DAILY 02/28/24 06/01/25 History 62.5 mcg-vilant 25 mcg inhalat.powder (Trelegy Ellipta) albuterol sulfate 90 mcg/actuation 1 inh inhalation Q6H PRN shortness 12/01/24 05/31/25 History aerosol inhaler of breath or wheezing prednisone 5 mg tablet 5 mg PO DAILY PRN sob 06/01/25 05/31/25 History prednisone 20 mg tablet 40 mg (2 x 20 mg) PO DAILY #10 07/16/25 Unknown Rx TABLETS trazodone 50 mg tablet 50 mg PO QHS PRN insomnia #5 tabs 07/16/25 Unknown Rx Allergy/AdvReac Type Severity Reaction Status Date / Time No Known Allergies Allergy Verified 06/01/25 07:22 Surgical History Hx of hernia repair History of replacement of both shoulder joints Social History household members: spouse housing: house Smoking Status: Former smoker alcohol intake: never substance use type: does not use ROS ROS ED Constitutional Constitutional ED: Reports chills; Denies fever(s), sweats or weight loss Eyes Eyes: Denies change in vision or diplopia ENT ENT ED: Denies ear pain, rhinorrhea or sore throat Cardiovascular Cardiovascular: Reports as per HPI and chest pain; Denies orthopnea, palpitations or racing heartbeat Respiratory/Chest Respiratory/Chest: Reports cough, dyspnea, dyspnea on exertion and sputum; Denies orthopnea Gastrointestinal Gastrointestinal: Denies abdominal pain, diarrhea, nausea or vomiting Genitourinary Genitourinary ED: Reports urinary frequency; Denies dysuria or hematuria Musculoskeletal Musculoskeletal: Denies arthralgias or myalgias Integumentary Denies abscess or rash Neurologic Neurologic: Denies headache(s) or weakness Psychiatric Psychiatric: Denies anxiety, depression, suicidal ideation or suicidal thoughts Endocrine Endocrinology: Denies polydipsia, polyphagia or polyuria Allergic/Immunologic Allergic/Immunologic ED: Denies mouth swelling, tongue swelling or urticaria EXAM Physical Exam Const Vital Signs: 07/16/25 06:36 07/16/25 07:16 07/16/25 07:22 Temperature 98.3 F Temperature Source Oral Pulse Rate 107 H 86 Respiratory Rate 24 H 16 Respiratory Pattern Normal Blood Pressure 151/95 H Blood Pressure Mean 113 Pulse Ox 78 Oxygen Delivery Method Room Air Nasal Cannula Oxygen Flow Rate (L/min) 2 07/16/25 07:25 07/16/25 07:35 07/16/25 08:01 Temperature Temperature Source Pulse Rate 92 88 Respiratory Rate 20 H 21 H Respiratory Pattern Blood Pressure 131/80 H 142/78 H Blood Pressure Mean 97 99 Pulse Ox 98 98 99 Oxygen Delivery Method Nasal Cannula Nasal Cannula Nasal Cannula Oxygen Flow Rate (L/min) 1 2 07/16/25 08:06 07/16/25 09:00 07/16/25 09:00 Temperature 98.6 F 98 F Temperature Source Oral Oral Pulse Rate 90 95 93 Respiratory Rate 25 H 17 17 Respiratory Pattern Blood Pressure 142/78 H 109/74 109/74 Blood Pressure Mean 99 85 85 Pulse Ox 98 86 86 Oxygen Delivery Method Nasal Cannula Room Air Room Air Oxygen Flow Rate (L/min) 1 07/16/25 09:09 07/16/25 09:49 Temperature Temperature Source Pulse Rate 79 89 Respiratory Rate 18 18 Respiratory Pattern Normal Blood Pressure 118/71 Blood Pressure Mean 86 Pulse Ox 84 Oxygen Delivery Method Room Air Oxygen Flow Rate (L/min) Positive well nourished and well developed General Appearance ED: well developed and NAD; Negative for pallor HEENT Reports normocephalic, head/scalp atraumatic and moist mucous membranes Eyes PERRL and EOMs intact bilaterally Neck no lymphadenopathy, supple and no JVD Resp Auscultation: rhonchi lower bilaterally and diminished lung sounds Cardio regular rate, regular rhythm and no murmurs GI normal to inspection, nondistended, normoactive bowel sounds and non-tender Palpation: soft Back/Spine no CVA tenderness and normal ROM Extremity General Extremety ED: Yes edema General Extremity: edema bilateral lower extremity Details: mild Neuro oriented x3 and CN's II-XII intact bilaterally Sensorium / Orientation: alert Motor Exam: strength 5/5 throughout Psych mental status grossly normal Mood & Affect: Negative for depressed or tearful Skin General Skin Exam: Negative for jaundice or pallor MDM MDM MDM Narrative Medical decision making narrative: Differential diagnosis includes COPD exacerbation pneumonia pleural effusion congestive heart failure acute coronary syndrome pulmonary embolism hypoxia Patient's white count nonspecifically elevated 12.4 hemoglobin 15.5. Troponin 32 proBNP 426 creatinine 0.82. My independent interpretation of the chest x-ray is chronic changes. CTA of the chest does not demonstrate any pulmonary embolism. There is some increase in size of the nodules. He does see pulmonology. I recommended that he follow-up with pulmonology. Patient was able to ambulate here in the department on room air and stated that he felt good but when he got back to the bed he stated he felt a little short of breath and his oxygen level was noted to be mid 80s. He does wear oxygen at home and does state that he can wear this during the day and at night. We discussed home treatment versus hospitalization. At this point he is going to wear his oxygen during the day wears oxygen at night, put him on 5 days of prednisone. I can write for a few trazodone that he can try instead of the Xanax and he can talk to his doctor it works better for him. Patient was advised that he may worsen and need to return. History & Record Review Discussion w/independent historian: Patient and Family Additional record(s) reviewed:: Prior inpatient record, Prior outpatient record, Prior ED visit and Prior labs Lab Data Attestation: I reviewed the patient's lab results. Labs: Laboratory Results - last 24 hr 07/16/25 07/16/25 06:40 09:29 WBC 12.4 H RBC 5.41 Hgb 15.5 Hct 48.2 MCV 89.1 MCH 28.7 MCHC 32.2 RDW Std Deviation 46.9 H RDW Coeff of Sherri 14.6 Plt Count 281 MPV 10.0 Immature Gran % (Auto) 0.500 Neut % (Auto) 83.2 H Lymph % (Auto) 6.4 L O'Brien % (Auto) 7.8 Eos % (Auto) 1.5 Baso % (Auto) 0.6 Absolute Neuts (auto) 10.3 H Absolute Lymphs (auto) 0.79 L Nucleated RBC % 0 Sodium 139 Potassium 4.3 Chloride 96 L Carbon Dioxide 31.1 Anion Gap 12 BUN 21 H Creatinine 0.82 Estim Creat Clear Calc 61.37 Est GFR (MDRD) Non-Af 92 BUN/Creatinine Ratio 25.4 H Glucose 107 H Calcium 9.9 Troponin T High Sens 32 H Troponin T Hi Sens 2 Hr 26 H NT pro BNP II 426 Radiography Diagnostic Testing: Clinical Impression(s) from Imaging Studies Chest X-Ray 07/16/25 07:40 IMPRESSION: Stable bilateral pulmonary nodules. Stable emphysema. Negative for acute cardiopulmonary disease. Reading Location: [facility] Chest CTA 07/16/25 08:18 IMPRESSION: No evidence of pulmonary embolism. Increase in size and number of multiple bilateral pulmonary nodule. For example a left upper lobe nodule measures 2.3 x 1.7 cm, previously measured 2 x 1.5 cm. This can be infectious, inflammatory or neoplastic. Reading Location: [facility] EKG Initial EKG: Attestation: I personally reviewed and interpreted this EKG as follows: Comments: Normal sinus rhythm ventricular rate of 92 bpm Discharge Plan Triage Chief Complaint: Chest Pain ED Provider: Migel Iqbal Dx/Rx/DC Orders Clinical Impression: COPD exacerbation, Hypoxia Instructions: ED COPD Flare Prescriptions: New prednisone 20 mg tablet 40 mg PO DAILY Qty: 10 0RF trazodone 50 mg tablet 50 mg PO QHS PRN (Reason: insomnia) Qty: 5 0RF No Action Trelegy Ellipta 100-62.5-25 mcg blister with device 1 inh inhalation DAILY amlodipine 5 mg tablet 5 mg PO DAILY Patient Comments: Take 1 tablet by mouth once daily. vitamin E 268 mg (400 unit) capsule 268 mg PO DAILY garlic 1,000 mg capsule 1,000 mg PO DAILY Patient Comments: pt states he only takes once in a while alprazolam [Xanax] 0.25 mg tablet 0.375 mg PO QHS Patient Comments: takes 1.5 tabs albuterol sulfate 90 mcg/actuation HFA aerosol inhaler 1 inh inhalation Q6H PRN (Reason: shortness of breath or wheezing) albuterol sulfate 2.5 mg /3 mL (0.083 %) solution for nebulization 2.5 mg inhalation Q4H PRN Qty: 25 0RF Rx Instructions: Use q4 hours and PRN for wheezing prednisone 5 mg tablet 5 mg PO DAILY PRN Patient Comments: pt states he takes 1/2 to 1 tab before be if he feels sob. Primary Care Provider: Michelle Erickson NP Referrals: Michelle Erickson NP, [facility] [Primary Care Provider, Medical] - 3-5 Days Activity Restrictions/Additional Instructions: Please follow-up with pulmonary medicine to discuss your CT scan and the pulmonary nodules. I would recommend wearing your oxygen during the day especially over the next 1 to 2 days. I would also recommend you wearing your oxygen at nighttime to see if that helps you sleep better. As we discussed you may worsen and require repeat ED visit and possible hospitalization. That as you have oxygen at home I think it is reasonable to try to treat this at home. Do not take the Xanax and trazodone on the same day. Utilize 1 or the other for sleep. If trazodone works better for you please discuss with your doctor. Print Language: [place] Disposition Disposition: Home, Self Care
[2025-07-16] MEDS: Albuterol 2.5 MG/3 ML VIAL.NEB. INHALATION (07:18)
[2025-07-16 07:24] LABS: Hematocrit 48.2 % (40-54); Hemoglobin 15.5 g/dL (13.0-16.5); Immature Granulocytes Count 0.060 X10^3/uL (0.0-0.0); Mean Corp Hgb Conc 32.2 g/dL (32-36); Mean Corpuscular Volume 89.1 fL (80-94); Mean Platelet Vol. 10.0 fl (6.2-12.0); NRBC Flagged by Analyzer 0 % (0-5); Platelet Count 281 K/mm3 (150-450); RBC Distribution Width CV 14.6 % (11.6-14.6); RBC Distribution Width SD 46.9 fl (35.1-43.9); Red Blood Count 5.41 M/mm3 (4.6-6.2); White Blood Count 12.4 K/mm3 (4.4-11.0)
--- OUTSIDE RECORDS SUMMARY | 2025-07-16 07:37 | XMS RPT_ITS | CCD ---
Author Organization [facility] Care Team Providers Care Chief Psychology Name Role Phone SAHARA JAY Attending Unavailable SAHARA JAY Primary Care Unavailable SAHARA JAY Admitting Unavailable RADHA STAHL MD, III Primary Care Physician RADHA STAHL MD, III Primary Care Physician Dr. Jr Ryan Primary Care Provider Dr. Carmelo Bauer Emergency Provider Dr. Fatemeh Estrella Admit Provider Dr. Fatemeh Estrella Attending Provider [phone] Fatemeh Estrella Other Provider Dr. Carri Worley Attending Provider Dr. Carri Worley Other Provider RADHA STAHL MD, III Primary Care UnavailJUAN Dukes Attending Unavailable JR RYAN Primary Care Unavailable Dr. Jr Ryan Primary Care Provider Dr. Migel Iqbal Emergency Provider Dr. Anirudh Thompson Admit Provider Dr. Anirudh Thompson Attending Provider [phone] Anirudh Thompson Other Provider Dr. Fadi Lloyd Attending Provider Dr. Fadi Lloyd Other Provider Jr Ryan DO Primary Care Provider Dr. Jr Ryan DO Primary Care Provider Dr. Todd Valdovinos DO Emergency Provider Dr. Anirudh Tohmpson DO Admit Provider Dr. Anirudh Thompson DO Attending Provider Georgina SENIOR MOBILE DEVELOPER-C, Michelle Sanaz Primary Care Provider [phone] Dr. Jr Ryan DO Primary Care Provider Dr. Anirudh Thompson DO Other Provider Cande JOHNS, Dr. Stauffer Attending Provider CHARLES, NARIMAN A Referring Unavailable CONNOR, JR WINCIL Primary Care Unavailable CHARLES, NARIMAN A Referring Unavailable CONNOR, JR WINCIL Primary Care Unavailable CHARLES, NARIMAN A Referring Unavailable CONNOR, JR WINCIL Primary Care Unavailable CLAIRE TURNER Referring Unavailable CONNOR, JR WINCIL Primary Care Unavailable CHARLES, NARIMAN A Referring Unavailable CONNOR, JR WINCIL Primary Care Unavailable Dr. Vivi Pike DO Emergency Department Physi parvin Georgina SENIOR MOBILE DEVELOPER-C, Michelle Sanaz Primary Care Physician Dr. Karen Le DO Admitting Physician Dr. Karen Le DO Attending Physician Rey LI, Dr. Jones Nurse Practitioner Jopperi, Anirudh Attending Unavailable Connor, Jr Primary Care Unavailable Jopperi, Anirudh Consulting Unavailable Jopperi, Anirudh Attending Unavailable Jopperi, Anirudh Admitting Unavailable Georgina SENIOR MOBILE DEVELOPER, Michelle Sanaz Primary Care Unavailabl e Eh Castellon Attending Unavailable Jopperi, Anirudh Referring Unavailable Connor, Jr Primary Care Unavailable CandeEh Attending Unavailable Connor, Jr Primary Care Unavailable Roof SENIOR MOBILE DEVELOPER, Bentley Rodgers Attending Unavailable Connor, Jr Primary Care Unavailable Connor, Jr Referring Unavailable Roof SENIOR MOBILE DEVELOPER, Bentley H Attending Unavailable Karen Le Consulting Unavailable Karen Le Attending Unavailable Karen Le Admitting Unavailable Kapper SENIOR MOBILE DEVELOPER, Michelle Sanaz Primary Care Unavailabl e Jopperi, Anirudh Attending Unavailable Georgina SENIOR MOBILE DEVELOPER, [facility] UnavailAnirudh Mejia Admitting Unavailable Karen Le Attending Unavailable Karen Le Admitting Unavailable Georgina SENIOR MOBILE DEVELOPER, [facility] Unavailabl e CHARLES, NARIMAN A Attending Unavailable JR RYAN Primary Care Unavailable TIGRE RESTREPO Attending Unavailable JR RYAN Primary Care Unavailable Allergies Allergy Classification Reported Allergen(s) Allergy Type Date of Onset Reaction(s) Facility (20 sources) Lisinopril; Translations: [LISINOPRIL] Drug Allergy 7 Cough [facility] Repository (20 sources) Naproxen; Translations: [NAPROXEN] Drug Allergy 7 GI Upset [facility] Repository (20 sources) TRIAMTERENE-HYDR OCHLOROTHIAZID; Translations: [TRIAMTERENE-HYD ROCHLOROTHIAZID] Propensity to adverse reactions to drug (disorder) 7 Intolerance [facility] Repository Medications Current Medications Medication Drug Class(es) Dates Sig (Normalized) Sig (Original) [id number] 200 actuat albuterol 0.09 mg/actuat metered dose inhaler (20 sources) beta2-Adrenergic Agonist Start: 12-17-2023 End: 12-01-2024 Start: 12-17-2023 Albuterol Sulf ate (Proair Hfa) 90 mcg/actuation HFA aerosol inhaler Active 1 INH INHALATION EVERY 6 HOURS December 17, 2023 12:00am Start: 07-25-2018 take 2 puff(s) by in halation every four hours as needed for wheezing albuterol HFA (PROAIR HFA) 90 mcg/actuation inhaler 2 puff(s), Inhalation, q4h, PRN as needed for wheezing 07/25/2018 Active Start: 07-25-2018 take 2 puff(s) by in halation every four hours as needed for wheezing ProAir HFA MDI (90 mcg/inh) inhalation aerosol 2 puff(s), Inhalation, q4h, PRN as needed for wheezing Start Date: 07/25/18 Status: Ordered Start: 07-25-2018 take 2 puff(s) by in halation every four hours as needed for wheezing ProAir HFA MDI (90 mcg/inh) inhalation aerosol 2 puff(s), Inhalation, q4h, PRN as needed for wheezing Start Date: 07/25/18 Status: Ordered Start: 10-19-2016 End: 02-28-2024 take 2.5 mg by inhalation every four hours as needed for wheezing ALPRAZolam 0.25 mg oral tablet (15 sources) Benzodiazepine Start: 02-28-2024 take 0.375 mg by ashley th at bedtime Start: 12-17-2023 End: 02-28-2024 take 1 tablet by mouth at bedtime Alprazolam (Xanax) 0.25 mg tablet Discontinued 0.25 mg PO AT BEDTIME December 17, 2023 12:00am February 28, 2024 2:14pm anxiety amLODIPine 5 mg oral tablet (20 sources) Dihydropyridine Calcium Channel Rodolfo Start: 07-25-2018 take 1 tablet by mouth once daily Breo Ellipta 200 mcg-25 mcg/inh inhalation powder (2 sources) Start: 07-25-2018 take 1 dose by inhalation once daily as needed Breo Ellipta 200 mcg-25 mcg/inh inhalation powder Dose = 1 puff(s), Inhalation, qDay, PRN Control symptoms Start Date: 07/25/18 Status: Ordered diphenhydrAMINE hydrochloride 50 mg oral tablet (2 sources) Histamine-1 Receptor Antagonist Start: 07-27-2018 Benadryl Dose : 50 mg = 1 cap(s), Oral, qHS, PRN Insomnia, 0 Refill(s) Start Date: 07/27/18 Status: Ordered docusate sodium 100 mg oral capsule (2 sources) Start: 07-27-2018 Colace 100 mg oral capsule Dose : 100 mg = 1 cap(s), Oral, BID, PRN Constipation, 0 Refill(s) Start Date: 07/27/18 Status: Ordered doxycycline monohydrate 100 mg oral tablet (16 sources) Tetracycline-class Drug Start: 03-24-2024 End: 03-31-2024 take 1 tablet by mouth twice daily doxycycline monohydrate 100 mg tablet Take 1 tablet by mouth two times a day for 7 days. 14 tablet 0 03/24/2024 03/31/2024 Active Start: 07-09-2023 End: 10-29-2023 take 1 capsule by mouth twice daily Doxycycline Monohydrate 100 mg capsule Discontinued 100 mg PO TWICE A DAY July 09, 2023 1:00am October 29, 2023 10:36am 30 actuat fluticasone furoate 0.1 mg/actuat / umeclidinium 0.0625 mg/actuat / vilanterol 0.025 mg/actuat dry powder inhaler (16 sources) Anticholinergic, Corticosteroid, beta2-Adrenergic Agonist Start: 06-01-2024 take 1 puff(s) by inhalation once daily ekdyelbtyre-vlnecvqgp-zgltvzrc (TRELEGY ELLIPTA) 100-62.5-25 mcg inhalation powder Inhale 1 Puff as instructed once daily. 60 Each 11 06/02/2024 Active Start: 02-28-2024 Start: 02-28-2024 Fluticasone-Um eclidin-Vilanter (Trelegy Ellipta) 100-62.5-25 mcg blister with device Active 1 NMA INHALATION DAILY February 28, 2024 12:00am Complies with drug therapy Start: 02-28-2024 Fluticasone-Um eclidin-Vilanter (Trelegy Ellipta) 100-62.5-25 mcg blister with device Active 1 NMA INHALATION DAILY February 28, 2024 12:00am gabapentin 300 mg oral capsule (20 sources) Anti-epileptic Agent Start: 07-25-2018 Neurontin 300 mg oral capsule Dose : 300 mg = 1 cap(s), Oral, TID Start Date: 07/25/18 Status: Ordered Start: 07-23-2018 take 1 capsule by mo ut three times daily gabapentin (NEURONTIN) 100 mg capsule Indications: Carpal tunnel syndrome, right Take 1 capsule by mouth three times daily for 30 days. 90 capsule 07/23/2018 Active Garlic (20 sources) Non-Standardized Food Allergenic Extract Start: 12-17-2023 take 1 capsule by mouth once daily Start: 12-17-2023 take 1 capsule by mo uth once daily Garlic 1,000 mg capsule Active 1000 mg PO DAILY December 17, 2023 12:00am [facility] Complies with drug therapy Start: 12-17-2023 take 1 capsule by mo uth once daily Garlic 1,000 mg capsule Active 1000 mg PO DAILY December 17, 2023 12:00am Start: 12-17-2023 take 1000 mg by mouth once tl ly Garlic Active 1000 MG PO DAILY December 17, 2023 12:00am GARLIC ORAL Take by mouth. Active GARLIC ORAL Take by mouth. 0 Active 12 hr guaiFENesin 1200 mg ex tended release oral tablet (12 sources) Start: 06-02-2025 take 1 tablet by ashley th twice daily, then take 1 tablet by mouth every twelve hours Start: 08-30-2022 End: 10-29-2023 take 1 tablet by mouth twice daily, then take 1 tablet by mouth every twelve hours Guaifenesin (Mucus Relief Er) 1,200 mg Tablet Extended Release 12hr Discontinued 1200 mg PO TWICE A DAY 14 7 0 August 30, 2022 1:00am October 29, 2023 10:36am Herbal Drugs cap (20 sources) take 1 capsule by mo uth once daily Herbal Drugs cap Take 1 capsule by mouth once daily. Active take 1 capsule by mouth once tl ly Herbal Drugs cap Take 1 capsule by mouth once daily. 0 Active herbal/nutritional product (2 sources) Start: 07-25-2018 take 1 capsule by mouth twice daily herbal/nutritional product Dose = 1 cap(s), Oral, BID Start Date: 07/25/18 Status: Ordered levoFLOXacin 750 mg oral tablet (11 sources) Quinolone Antimicrobial Start: 06-02-2025 take 1 tablet by mouth once daily at bedtime Start: 04-16-2025 take 1 tablet by ashley th once daily levoFLOXacin (LEVAQUIN) 750 mg tablet Take 1 tablet by mouth once daily. 5 tablet 04/16/2025 Active Start: 05-28-2024 End: 06-11-2024 take 1 tablet by mouth once daily levoFLOXacin (LEVAQUIN) 750 mg tablet Take 1 tablet by mouth once daily for 14 days. 14 tablet 05/28/2024 06/11/2024 Active Start: 12-20-2023 End: 02-24-2024 take 1 tablet by mouth once daily Levofloxacin 500 mg tablet Discontinued 500 mg PO DAILY 5 5 0 December 20, 2023 12:00am February 24, 2024 9:40am meloxicam 15 mg oral tablet (2 sources) Nonsteroidal Anti-inflammatory Drug Start: 07-25-2018 Mobic 15 mg oral tablet Dose : 15 mg = 1 tab(s), Oral, qDay, Take with food/milk Start Date: 07/25/18 Status: Ordered omeprazole 20 mg delayed release oral capsule (20 sources) Proton Pump Inhibitor Start: 06-17-2020 take 1 capsule by mouth once daily before breakfast omeprazole (PRILOSEC) 20 mg capsule Take 1 capsule by mouth daily before breakfast. 1/2 hr before meal. 30 capsule 1 06/17/2020 Active OTC NUTRITIONAL SUPPLEMENT (6 sources) OTC NUTRITIONAL SUPPLEMENT Factor 5 for joints Active predniSONE 10 mg oral tablet (20 sources) Start: 06-02-2025 Start: 06-01-2025 take 1 tablet by ashley once daily as needed Start: 03-02-2024 End: 06-01-2025 take 2 tablets by mouth once daily Prednisone 20 mg tablet Discontinued 40 mg PO DAILY December 02, 2024 12:00am June 01, 2025 8:55am Start: 02-28-2024 End: 03-02-2024 take 1 tablet by mouth twice daily Prednisone 10 mg tablet Discontinued 10 mg PO TWICE A DAY February 28, 2024 2:14pm March 02, 2024 7:38am Start: 12-20-2023 End: 02-28-2024 Prednisone 10 mg tablet Disc ontinued 10 mg PO DAILY December 20, 2023 12:00am February 28, 2024 2:14pm 40 mg for 3 days 30 mg for 3 days, 20 mg for 3 days,and 10 mg for 3 days Start: 12-20-2023 Prednisone Act jadyn 10 MG PO DAILY December 20, 2023 12:00am 40 mg for 3 days 30 mg for 3 days, 20 mg for 3 days,and 10 mg for 3 days Start: 10-29-2023 End: 02-24-2024 take 2 tablets by mouth once daily Prednisone 20 mg tablet Discontinued 40 mg PO DAILY December 11, 2023 12:00am December 17, 2023 3:27pm Start: 10-29-2023 End: 12-17-2023 take 40 mg by mouth once daily Prednisone Discontinued 40 MG PO DAILY 08 03December 11, 2023 12:00am December 17, 2023 3:27pm Start: 08-30-2022 End: 10-29-2023 Prednisone 10 mg tablet Disc ontinued 0 mg PO DAILY Taper: Frequency: BREAKFAST Days: 3 Hours: 0 Dose: 40 Frequency: BREAKFAST Days: 3 Hours: 0 Dose: 30 Frequency: BREAKFAST Days: 3 Hours: 0 Dose: 20 Frequency: BREAKFAST Days: 3 Hours: 0 Dose: 10 30 0 August 30, 2022 1:00am October 29, 2023 10:36am Please contact the information source for Taper Schedule details. Start: 08-30-2022 End: 10-29-2023 Prednisone Discontinued 0 MG PO DAILY August 30, 2022 1:00am October 29, 2023 10:36am Start: 08-23-2022 End: 08-30-2022 take 3 tablets by mouth once daily Prednisone 20 mg tablet Discontinued 60 mg PO DAILY August 26, 2022 5:11pm August 30, 2022 4:00pm Check with primary doctor Start: 08-23-2022 End: 08-30-2022 take 60 mg by mouth once daily Prednisone Discontinued 60 MG PO DAILY August 26, 2022 5:11pm August 30, 2022 4:00pm Start: 10-19-2016 End: 08-30-2022 take 2 tablets by mouth once daily Prednisone 20 MG tablet Discontinued 40 mg PO DAILY@08August 26, 2022 5:11pm August 30, 2022 4:00pm Check with primary doctor Start: 10-19-2016 End: 08-30-2022 take 40 mg by mouth once daily Prednisone Discontinued 40 MG PO DAILY@08August 26, 2022 5:11pm August 30, 2022 4:00pm take 0.5 tablet by m outh once daily predniSONE EC 5 mg Delayed Release Tab Take 5 mg by mouth. taking 1/2 tablet daily Active vitamin B12 (2 sources) Vitamin B12 Start: 07-25-2018 take 1 dose by mouth once daily vitamin e 180 mg oral capsule (6 sources) Start: 12-17-2023 take 1 capsule by mouth once daily VITAMIN E ORAL (20 sources) VITAMIN E ORAL Take by mouth. Active VITAMIN E ORAL T jo-ann by mouth. 0 Active voriconazole 200 mg oral tablet (6 sources) Azole Antifungal Start: 10-16-2024 take 1 tablet by mouth twice daily voriconazole (VFEND) 200 mg tablet Take 1 tablet by mouth two times a day. 60 tablet 3 10/16/2024 Active Completed/Discontinued Medications Medication Drug Class(es) Dates Sig (Normalized) Sig (Original) acetaminophen 325 mg / HYDROcodone bitartrate 5 mg oral tablet (20 sources) Opioid Agonist Start: 05-01-2021 End: 10-29-2023 Hydrocodone-Acetami nophen 5-325 mg tablet Discontinued 1 {tbl} PO EVERY 6 HOURS as needed for pain 6 3 August 23, 2022 August 30, 2022 4:00pm Chronic obstructive pulmonary disease Muscle pain Chronic obstructive pulmonary disease, unspecified Myalgia, unspecified site Start: 05-01-2021 End: 10-29-2023 take 1 tablet by mouth every six hours Hydrocodone-Acetaminophen Discontinued 1 TABLET PO EVERY 6 HOURS 6 August 23, 2022 August 30, 2022 4:00pm acyclovir 400 mg oral tablet (20 sources) Herpesvirus Nucleoside Analog DNA Polymerase Inhibitor, Herpes Simplex Virus Nucleoside Analog DNA Polymerase Inhibitor, Herpes Zoster Virus Nucleoside Analog DNA Polymerase Inhibitor Start: 08-30-2022 End: 10-29-2023 take 1 tablet by mouth three times daily Acyclovir 400 mg tablet Discontinued 400 mg PO THREE TIMES A DAY 21 7 0 August 30, 2022 1:00am October 29, 2023 10:35am Start: 08-30-2022 End: 10-29-2023 Acyclovir 5 % ointment Disco ntinued 1 NMA TOPICAL THREE TIMES A DAY 30 7 0 August 30, 2022 1:00am October 29, 2023 10:35am apply to the affected areas on the lips amoxicillin 875 mg / clavulanate 125 mg oral tablet (3 sources) Penicillin-class Antibacterial Start: 12-02-2024 End: 06-01-2025 Amoxicillin-Pot Clavulanate 875-125 mg tablet Discontinued 1 {tbl} PO TWICE A DAY 10 0 December 02, 2024 12:00am June 01, 2025 8:55am aspirin 81 mg delayed release oral tablet (8 sources) Platelet Aggregation Inhibitor, Nonsteroidal Anti-inflammatory Drug Start: 02-28-2024 End: 12-01-2024 take 1 tablet by mouth once daily Aspirin (Adult Aspirin Regimen) 81 mg tablet,delayed release (DR/EC) Discontinued 81 mg PO DAILY 90 3 March 02, 2024 1:14pm December 01, 2024 6:29am atorvastatin 20 mg oral tablet (4 sources) HMG-CoA Reductase Inhibitor Start: 03-02-2024 End: 12-01-2024 take 1 tablet by mouth once daily Atorvastatin 20 mg tablet Discontinued 20 mg PO DAILY 90 3 March 02, 2024 12:00am December 01, 2024 6:29am cefdinir 300 mg oral capsule (11 sources) Cephalosporin Antibacterial Start: 08-30-2022 End: 10-29-2023 take 1 capsule by mouth twice daily Cefdinir 300 mg capsule Discontinued 300 mg PO TWICE A DAY 6 3 0 August 30, 2022 1:00am October 29, 2023 10:36am cephalexin 500 mg oral capsule (20 sources) Cephalosporin Antibacterial Start: 05-01-2021 End: 08-30-2022 take 1 capsule by mouth every six hours Cephalexin 500 mg capsule Discontinued 500 mg PO EVERY 6 HOURS August 26, 2022 5:11pm August 30, 2022 4:00pm Check with primary doctor clindamycin 150 mg oral capsule (2 sources) Lincosamide Antibacterial Start: 07-27-2018 End: 08-03-2018 clindamycin 150 mg oral capsule Dose : 300 mg = 2 cap(s), Oral, q6h, # 56 cap(s), 0 Refill(s) Start Date: 07/27/18 Stop Date: 08/03/18 Status: Ordered 12 hr dextromethorphan hydrobromide 30 mg / guaiFENesin 600 mg extended release oral tablet (9 sources) Uncompetitive O-oynksv-Y-aspartate Receptor Antagonist, Sigma-1 Agonist Start: 12-20-2023 End: 12-01-2024 Dextromethorphan-Gu aifenesin (Mucinex Dm) 30-600 mg tablet extended release 12 hr Discontinued 2 {tbl} PO TWICE A DAY as needed for cough February 28, 2024 2:13pm December 01, 2024 6:30am 30 actuat fluticasone furoate 0.2 mg/actuat / vilanterol 0.025 mg/actuat dry powder inhaler (20 sources) Corticosteroid, beta2-Adrenergic Agonist Start: 03-06-2021 End: 12-17-2023 Fluticasone Furoate-Vilanterol (Breo Ellipta) 200-25 mcg/dose blister with device Discontinued 1 NMA INHALATION DAILY March 06, 2021 12:00am December 17, 2023 3:28pm Start: 03-06-2021 End: 12-17-2023 Fluticasone Furoate-Vilanter ol (Breo Ellipta) 200-25 mcg/dose blister with device Discontinued 1 INH INHALATION DAILY March 06, 2021 12:00am December 17, 2023 3:28pm Start: 03-06-2021 Fluticasone Fu roate-Vilanterol (Breo Ellipta) 200-25 mcg/dose blister with device Active 1 INH INHALATION DAILY March 05, 2021 11:00pm fluticasone/umeclidin/vilant er (TRELEGY ELLIPTA INHALATION) (20 sources) End: 06-01-2024 fluticasone/umeclidin/vilant er (TRELEGY ELLIPTA INHALATION) Inhale as instructed. 06/01/2024 Discontinued fluticasone/umec lidin/vilanter (TRELEGY ELLIPTA INHALATION) Inhale as instructed. Active fluticasone/umec lidin/vilanter (TRELEGY ELLIPTA INHALATION) Inhale as instructed. 0 Active iv contrast (will be provide d with radiology test) (5 sources) Start: 03-26-2024 End: 03-27-2024 iv contrast (will be provide d with radiology test) CT Chest PE -Inject, intravenously, once for 1 dose.No IV access, insert saline lock prior to the beginning of sedation, infusion, injection of imaging exam. Discontinue saline lock post exam. If Pt. has a central line or IVAD, may access for administration according to line specific nursing protocol. Once exam is complete flush line and de-access according to line specific nursing protocol in the CT contrast administration guidelines link. 1 Each 0 03/26/2024 03/27/2024 Start: 03-26-2024 End: 03-27-2024 iv contrast (will be provide d with radiology test) CT Chest PE -Inject, intravenously, once for 1 dose.No IV access, insert saline lock prior to the beginning of sedation, infusion, injection of imaging exam. Discontinue saline lock post exam. If Pt. has a central line or IVAD, may access for administration according to line specific nursing protocol. Once exam is complete flush line and de-access according to line specific nursing protocol in the CT contrast administration guidelines link. 1 Each 0 03/26/2024 03/27/2024 Active Start: 03-24-2024 End: 03-25-2024 iv contrast (will be provide d with radiology test) CT Chest PE -Inject, intravenously, once for 1 dose.No IV access, insert saline lock prior to the beginning of sedation, infusion, injection of imaging exam. Discontinue saline lock post exam. If Pt. has a central line or IVAD, may access for administration according to line specific nursing protocol. Once exam is complete flush line and de-access according to line specific nursing protocol in the CT contrast administration guidelines link. 1 Each 0 03/24/2024 03/25/2024 Active Magnesium (20 sources) End: 04-16-2025 MAGNESIUM ORAL Take by mouth . 04/16/2025 Discontinued MAGNESIUM ORAL T jo-ann by mouth. Active MAGNESIUM ORAL T jo-ann by mouth. 0 Active melatonin 10 mg sublingual tablet (5 sources) Start: 12-20-2023 End: 02-28-2024 take 1 tablet by mouth at bedtime as needed Melatonin 10 mg Tablet, Sublingual Discontinued 10 mg PO AT BEDTIME as needed for Insomnia 0 December 20, 2023 12:00am February 28, 2024 2:13pm sulfamethoxazole 800 mg / trimethoprim 160 mg oral tablet (20 sources) Dihydrofolate Reductase Inhibitor Antibacterial, Sulfonamide Antimicrobial Start: 05-01-2021 End: 10-29-2023 Sulfamethoxazole- Trimethoprim (Bactrim Ds) 800-160 mg tablet Discontinued 1 {tbl} PO TWICE A DAY August 26, 2022 5:12pm October 29, 2023 10:36am Check with primary doctor Problems Active Problems Problem Classification Problem Date Documented Da te Episodic/Chronic Anxiety disorders (4 sources) Anxiety; Translations: [Anxiety disorder, unspecified] 02-24-2024 Chronic Asthma (20 sources) Asthma; Translations: [Unspecified asthma, uncomplicated] Onset: 11-28-2005 Resolved: 10-02-2015 03-08-2014 Chronic Comment on above: Patient feels somewh at congested this AM.Breath sounds diminished with wheeze heard posterior.Pulse ox 97%. Uses inhalers prn. Chronic obstructive pulmonary disease and bronchiectasis (20 sources) Acute exacerbation of chronic obstructive airways disease; Translations: [Chronic obstructive pulmonary disease with (acute) exacerbation] Onset: 12-15-2023 Chronic Coronary atherosclerosis and other heart disease (8 sources) Coronary atherosclerosis; Translations: [Atherosclerotic heart disease of [place] coronary artery without angina pectoris] Onset: 12-09-2024 05-21-2024 Chronic Disorders of lipid metabolism (20 sources) Hyperlipidemia; Translations: [Hyperlipidemia, unspecified] Onset: 10-17-2006 10-17-2006 Chronic Essential hypertension (20 sources) Hypertensive disorder; Translations: [Essential hypertension] Onset: 10-17-2006 03-08-2014 Chronic Genitourinary symptoms and ill-defined conditions (4 sources) Retention of urine; Translations: [Retention of urine, unspecified] 02-24-2024 Episodic Heart valve disorders (4 sources) Aortic valve stenosis; Translations: [Nonrheumatic aortic (valve) stenosis] 02-28-2024 Chronic Heart valve disorders (7 sources) Heart murmur; Translations: [Cardiac murmur, unspecified] Onset: 06-05-2024 05-22-2024 Episodic Hyperplasia of prostate (20 sources) Large prostate ; Translations: [Benign prostatic hypertrophy with outflow obstruction] Onset: 06-24-2017 03-08-2014 Chronic Influenza (20 sources) Influenza due to Influenza A virus; Translations: [Influenza due to other identified influenza virus with other respiratory manifestations] Onset: 12-15-2023 Episodic Mycoses (4 sources) Invasive pulmonary aspergillosis; Translations: [Invasive pulmonary aspergillosis] 10-16-2024 Episodic Nonspecific chest pain (20 sources) Chest pain; Translations: [Chest pain, unspecified] Onset: 04-24-2010 Resolved: 09-11-2016 03-06-2021 Episodic Osteoarthritis (20 sources) Arthritis; Translations: [Primary osteoarthritis, left shoulder] Onset: 09-11-2016 03-08-2014 Chronic Other circulatory disease (7 sources) H/O: hypertension; Translations: [Personal history of other diseases of the circulatory system] 12-11-2023 Episodic Other circulatory disease (2 sources) H/O: heart disorder; Translations: [Personal history of other diseases of the circulatory system] 06-01-2025 Episodic Other connective tissue disease (14 sources) Bursitis of olecranon of right elbow; Translations: [Olecranon bursitis, right elbow] 05-01-2021 Episodic Other connective tissue disease (13 sources) Muscle pain; Translations: [Myalgia, unspecified site] 08-31-2022 Episodic Other lower respiratory disease (2 sources) Dyspnea on exertion 03-08-2014 Episodic Other lower respiratory disease (10 sources) Dyspnea; Translations: [Dyspnea, unspecified] 10-29-2023 Episodic Other lower respiratory disease (12 sources) Multiple nodules of lung; Translations: [Other nonspecific abnormal finding of lung field] 03-24-2024 Episodic Other lower respiratory disease (3 sources) Chest pain on breathing; Translations: [Chest pain on breathing] 03-24-2024 Episodic Other lower respiratory disease (3 sources) Cavitation of lung; Translations: [Other disorders of lung] 03-24-2024 Episodic Other lower respiratory disease (3 sources) Lung mass; Translations: [Other nonspecific abnormal finding of lung field] 10-16-2024 Episodic Other lower respiratory disease (9 sources) Hypoxia; Translations: [Hypoxemia] 12-01-2024 Episodic Other lower respiratory disease (4 sources) Other nonspecific abnormal finding of lung field; Translations: [Lung mass] Onset: 04-21-2024 Episodic Other lower respiratory disease (2 sources) Sputum abnormal - amount; Translations: [Abnormal sputum] 06-01-2025 Episodic Other lower respiratory disease (1 source) Hypoxemia; Translations: [Hypoxemia] Onset: 06-10-2025 Episodic Other lower respiratory disease (1 source) Abnormal sputum; Translations: [Abnormal sputum] Onset: 06-10-2025 Episodic Other non-traumatic joint disorders (2 sources) Knee pain 03-31-2014 Episodic Comment on above: Cleared for surgery 03/31/14. Other screening for suspected conditions (not mental disorders or infectious disease) (7 sources) Calcification of coronary artery; Translations: [Abnormal findings on diagnostic imaging of heart and coronary circulation] Onset: 06-10-2025 02-28-2024 Episodic Other upper respiratory disease (2 sources) Seasonal allergy 03-08-2014 Chronic Respiratory failure; insufficiency; arrest (adult) (4 sources) Dependence on supplemental oxygen; Translations: [Dependence on supplemental oxygen] 02-24-2024 Chronic Respiratory failure; insufficiency; arrest (adult) (20 sources) Acute hypoxemic respiratory failure; Translations: [Acute respiratory failure with hypoxia] Episodic Screening and history of mental health and substance abuse codes (4 sources) Ex-smoker; Translations: [Personal history of nicotine dependence] 03-24-2024 Episodic Spondylosis; intervertebral disc disorders; other back problems (2 sources) Degeneration of intervertebral disc 03-08-2014 Chronic Spondylosis; intervertebral disc disorders; other back problems (4 sources) Backache; Translations: [Spinal stenosis] 03-08-2014 Episodic Unclassified (2 sources) Eye glasses, device (physical object) 03-08-2014 Unclassified (2 sources) Hearing aid, device (physical object) 03-08-2014 Comment on above: 2 Unclassified (1 source) Radiology NM Onset: 04-21-2024 Past or Other Problems Problem Classification Problem Date Documented Da te Episodic/Chronic Allergic reactions (20 sources) Environmental allergy; Translations: [Other allergy status, other than to drugs and biological substances] Onset: 04-15-2011 04-15-2011 Episodic Deficiency and other anemia (2 sources) Anemia Onset: 08-26-2003 03-08-2014 Episodic Comment on above: WAS NOT ABLE TO ELIER TE BLOOD Other connective tissue disease (20 sources) Tear of left rotator cuff; Translations: [Unspecified rotator cuff tear or rupture of left shoulder, not specified as traumatic] Onset: 07-13-2012 Resolved: 09-11-2016 09-11-2016 Episodic Other skin disorders (20 sources) Lump on finger; Translations: [Localized swelling, mass and lump, unspecified upper limb] Onset: 10-02-2016 10-02-2016 Episodic Other skin disorders (20 sources) Finding of region of thorax; Translations: [Localized swelling, mass and lump, trunk] Onset: 03-04-2006 Resolved: 09-11-2016 09-11-2016 Episodic Phlebitis; thrombophlebitis and thromboembolism (20 sources) Deep venous thrombosis; Translations: [Venous thrombosis] Onset: 08-26-2005 Resolved: 09-11-2016 03-08-2014 Episodic Comment on above: AFTER HIP SURGERY Pneumonia (except that caused by tuberculosis or sexually transmitted disease) (20 sources) Pneumonia; Translations: [Pneumonia, unspecified organism] Onset: 10-16-2024 Episodic Results Test Name Value Interpretation Reference Range Facility [facility] 06-23-2025 [facility] Letter Text Normal [facility] Absolute lymphocyte countOrd ered By: Karen Le on 06-02-2025 Lymphocytes Auto (Unsp spec) [#/Vol] 0.36 10*3/uL Low 0.83-4.51 [facility] Absolute neutrophil countOrd ered By: Karen Le on 06-02-2025 Neutrophils (Bld) [#/Vol] 7.4 10*3/uL 2.0-7.7 [facility] Anion gap in Serum or Plasma Ordered By: Karen Le on 06-02-2025 Anion gap [Moles/Vol] 8 mmol/L 5-15 [facility] Automated lymphocyte count a s percentage of total leukocytesOrdered By: Karen Le on 06-02-2025 Lymphocytes/100 WBC Auto (Unsp spec) 4.5 % Low - [facility] BUN/creatinine ratioOrdered By: Karen Le on 06-02-2025 Urea nitrogen/Creatinine [Mass ratio] 31.4 mg/mg High 10- [facility] Basophil percentageOrdered B y: Karen Le on 06-02-2025 Basophils/100 WBC (Bld) 0.1 % 0-1 [facility] Bilirubin, totalOrdered By: Karen Le on 06-02-2025 Bilirubin [Mass/Vol] 0.44 mg/dL 0.00-1.30 [facility] CBC W/Diff, Automatedon Absolute Lymph 0.36 X10 3/uL Low 0.83-4.51 [facility] Comment on above: Performed By: #### L 501.5200, L500.2500, L100.0100 #### [facility] [address] [place], [address] Absolute Neut 7.4 X10 3/uL Normal 2.0-7.7 [facility] Comment on above: Performed By: #### L 501.5200, L500.2500, L100.0100 #### [facility] [address] [place], [address] Basophils/100 WBC (Bld) 0.1 % Normal 0-1 [facility] Comment on above: Performed By: #### L 501.5200, L500.2500, L100.0100 #### [facility] [address], [address] Eosinophils/100 WBC (Bld) 0.0 % Normal 0-5 [facility] Comment on above: Performed By: #### L 501.5200, L500.2500, L100.0100 #### [facility] [address] [place], [address] Erythrocyte distribution width (RBC) [Ratio] 14.3 % Normal 11.6-14.6 [facility] Comment on above: Performed By: #### L 501.5200, L500.2500, L100.0100 #### [facility] [address] [place], [address] Hematocrit (Bld) [Volume fraction] 38.0 % Low 40-54 [facility] Comment on above: Performed By: #### L 501.5200, L500.2500, L100.0100 #### [facility] [address] [place], [address] Hemoglobin (Bld) [Mass/Vol] 12.8 g/dL Low 13.0-16.5 [facility] Comment on above: Performed By: #### L 501.5200, L500.2500, L100.0100 #### [facility] [address] [place], [address] IG% 0.400 Normal 0.0-0.9 [facility] Comment on above: Result Comment: IG% - Immature Granulocytes (promyelocytes, myelocytes and metamyelocytes) > 1% indicates that a LEFT SHIFT is Present. Performed By: #### L 501.5200, L500.2500, L100.0100 #### [facility] [address] [place], [address] Lymphocytes/100 WBC (Bld) 4.5 % Low 19-41 [facility] Comment on above: Performed By: #### L 501.5200, L500.2500, L100.0100 #### [facility] [address] [place], [address] MCH (RBC) [Entitic mass] 29.1 pg Normal 27.0-32.0 [facility] Comment on above: Performed By: #### L 501.5200, L500.2500, L100.0100 #### [facility] [address] [place], [address] MCHC (RBC) [Mass/Vol] 33.7 g/dL Normal 32-36 [facility] Comment on above: Performed By: #### L 501.5200, L500.2500, L100.0100 #### [facility] [address] [place], [address] MCV (RBC) [Entitic vol] 86.4 fL Normal 80-94 [facility] Comment on above: Performed By: #### L 501.5200, L500.2500, L100.0100 #### [facility] [address] [place], [address] Monocytes/100 WBC (Bld) 2.5 % Normal 0-10 [facility] Comment on above: Performed By: #### L 501.5200, L500.2500, L100.0100 #### [facility] [address] [place], [address] Neutrophils/100 WBC (Bld) 92.5 % High 47-70 [facility] Comment on above: Performed By: #### L 501.5200, L500.2500, L100.0100 #### [facility] [address] [place], [address] Nucleated RBC (Bld) [#/Vol] 0 10*3/uL Normal 0-5 [facility] Comment on above: Performed By: #### L 501.5200, L500.2500, L100.0100 #### [facility] [address] [place], [address] Platelet mean volume (Bld) [Entitic vol] 9.5 fL Normal 6.2-12.0 [facility] Comment on above: Performed By: #### L 501.5200, L500.2500, L100.0100 #### [facility] [address] [place], [address] Platelets (Bld) [#/Vol] 229 10*3/uL Normal 150-450 [facility] Comment on above: Performed By: #### L 501.5200, L500.2500, L100.0100 #### [facility] [address] [place], [address] RBC (Bld) [#/Vol] 4.40 10*6/uL Low 4.6-6.2 [facility] Comment on above: Performed By: #### L 501.5200, L500.2500, L100.0100 #### [facility] [address] [place], [address] RDW SD 45.5 fl High 35.1-43.9 [facility] Comment on above: Performed By: #### L 501.5200, L500.2500, L100.0100 #### [facility] [address] [place], [address] WBC (Bld) [#/Vol] 8.0 10*3/uL Normal 4.4-11.0 [facility] Comment on above: Performed By: #### L 501.5200, L500.2500, L100.0100 #### [facility] [address] [place], [address] Carbon dioxide, total [Moles /volume] in Central venous bloodOrdered By: Karen Le on 06-02-2025 CO2 [Moles/Vol] 27.5 mmol/L 21.0-32.0 [facility] Chloride assayOrdered By: Sejal lopezconnie Rey on 06-02-2025 Chloride [Moles/Vol] 101 mmol/L 98-108 [facility] Comprehensive Metabolic Prof ilon 06-02-2025 Albumin [Mass/Vol] 3.7 g/dL Normal 3.4-4.8 [facility] Comment on above: Performed By: #### L 501.5200, L500.2500, L100.0100 #### [facility] [address] [place], [address] Albumin/Globulin [Mass ratio] 2.0 {ratio} Normal 0.9-2.4 [facility] Comment on above: Performed By: #### L 501.5200, L500.2500, L100.0100 #### [facility] [address] [place], [address] ALK PHOS 60 U/L Normal 40-129 [facility] Comment on above: Performed By: #### L 501.5200, L500.2500, L100.0100 #### [facility] [address] [place], [address] ALT [Catalytic activity/Vol] 19 U/L Normal <=46 [facility] Comment on above: Performed By: #### L 501.5200, L500.2500, L100.0100 #### [facility] [address] [place], [address] AST [Catalytic activity/Vol] 20 U/L Normal <=37 [facility] Comment on above: Performed By: #### L 501.5200, L500.2500, L100.0100 #### [facility] [address] [place], [address] Bilirubin [Mass/Vol] 0.44 mg/dL Normal 0.00-1.30 [facility] Comment on above: Performed By: #### L 501.5200, L500.2500, L100.0100 #### [facility] [address] [place], [address] BUN/CRE 31.4 RATIO High 10-20 [facility] Comment on above: Performed By: #### L 501.5200, L500.2500, L100.0100 #### [facility] [address] [place], [address] Calcium [Mass/Vol] 9.2 mg/dL Normal 7.6-11.0 [facility] Comment on above: Performed By: #### L 501.5200, L500.2500, L100.0100 #### [facility] [address] [place], [address] Chloride [Moles/Vol] 101 mmol/L Normal 98-108 [facility] Comment on above: Performed By: #### L 501.5200, L500.2500, L100.0100 #### [facility] [address] [place], [address] CO2 [Moles/Vol] 27.5 mmol/L Normal 21.0-32.0 [facility] Comment on above: Performed By: #### L 501.5200, L500.2500, L100.0100 #### [facility] [address] [place], [address] Creatinine [Mass/Vol] 0.73 mg/dL Normal 0.70-1.20 [facility] Comment on above: Performed By: #### L 501.5200, L500.2500, L100.0100 #### [facility] [address] [place], [address] ECRCL 61.33 ml/min Normal 50-250 [facility] Comment on above: Performed By: #### L 501.5200, L500.2500, L100.0100 #### [facility] [address] [place], [address] GAP 8 Normal 5-15 [facility] Comment on above: Performed By: #### L 501.5200, L500.2500, L100.0100 #### [facility] [address] [place], [address] GFR/1.73 sq M.predicted among non-blacks MDRD (S/P/Bld) [Vol rate/Area] 95 mL/min/{1.73_m2} Normal >60 [facility] Comment on above: Result Comment: mL/m in/1.73m2 CKD-EPI Creatinine Equation (2020) Performed By: #### L 501.5200, L500.2500, L100.0100 #### [facility] [address] [place], [address] Globulin (S) [Mass/Vol] 1.9 g/dL Low 2.2-4.2 [facility] Comment on above: Performed By: #### L 501.5200, L500.2500, L100.0100 #### [facility] [address] [place], [address] Glucose [Mass/Vol] 165 mg/dL High 70-99 [facility] Comment on above: Performed By: #### L 501.5200, L500.2500, L100.0100 #### [facility] [address] [place], [address] Potassium [Moles/Vol] 4.7 mmol/L Normal 3.3-5.1 [facility] Comment on above: Performed By: #### L 501.5200, L500.2500, L100.0100 #### [facility] [address] [place], [address] Sodium [Moles/Vol] 137 mmol/L Normal 133-145 [facility] Comment on above: Performed By: #### L 501.5200, L500.2500, L100.0100 #### [facility] [address] [place], [address] T PROT 5.6 g/dL Low 5.9-8.4 [facility] Comment on above: Performed By: #### L 501.5200, L500.2500, L100.0100 #### [facility] [address] [place], [address] Urea nitrogen [Mass/Vol] 23 mg/dL High 4-19 [facility] Comment on above: Performed By: #### L 501.5200, L500.2500, L100.0100 #### [facility] [address] [place], [address] Eosinophil percentageOrdered By: Karen Le on 06-02-2025 Eosinophils/100 WBC (Bld) 0.0 % 0-5 [facility] Erythrocyte distribution wid th ratioOrdered By: Karen Le on 06-02-2025 Erythrocyte distribution width (RBC) [Ratio] 14.3 % 11.6-14.6 [facility] Erythrocyte distribution wid th standard deviationOrdered By: Karen Le on 06-02-2025 Erythrocyte distribution width (RBC) [Ratio] 45.5 fl High 35.1-43.9 [facility] Glomerular filtration rate ( GFR) estimation/1.73 sq m using serum, plasma, or whole bOrdered By: Karen Le on 06-02-2025 GFR/1.73 sq M.predicted among non-blacks MDRD (S/P/Bld) [Vol rate/Area] 95 mL/min/{1.73_m2} >60 [facility] Comment on above: mL/min/1.73m2 CKD-EP I Creatinine Equation (2020) Hematocrit Auto (Bld) [Volum e fraction]Ordered By: Karen Le on 06-02-2025 Hematocrit (Bld) [Volume fraction] 38.0 % Low 40-54 [facility] Hemoglobin measurementOrdere d By: Karen Le on 06-02-2025 Hemoglobin (Bld) [Mass/Vol] 12.8 g/dL Low 13.0-16.5 [facility] Immature granulocytes/100 WB C Auto (Bld)Ordered By: Karen Le on 06-02-2025 Immature granulocytes/100 WBC (Bld) 0.400 % 0.0-0.9 [facility] Comment on above: IG% - Immature Granu locytes (promyelocytes, myelocytes and metamyelocytes) > 1% indicates that a LEFT SHIFT is Present. Laboratory - Chemistry and C hemistry - challengeOrdered By: Karen Le on 06-02-2025 AST [Catalytic activity/Vol] 20 U/L <38 [facility] MCV (mean corpuscular volume ) determinationOrdered By: Karen Le on 06-02-2025 MCV (RBC) [Entitic vol] 86.4 fL 80-94 [facility] Magnesiumon 06-02-2025 Magnesium [Mass/Vol] 2.0 mg/dL Normal 1.5-2.2 [facility] Comment on above: Performed By: #### L 501.5200, L500.2500, L100.0100 #### [facility] [address] [place] [address], [id number] Magnesium measurement (mass/ volume)Ordered By: Karen Le on 06-02-2025 Magnesium (Unsp spec) [Mass/Vol] 2.0 mg/dL 1.5-2.2 [facility] Mean corpuscular hemoglobin (MCH) determinationOrdered By: Karen Le on 06-02-2025 MCH (RBC) [Entitic mass] 29.1 pg 27.0-32.0 [facility] Mean corpuscular hemoglobin concentration (MCHC) determinationOrdered By: Karen Le on 06-02-2025 MCHC (RBC) [Mass/Vol] 33.7 g/dL 32-36 [facility] Mean platelet volume determi nationOrdered By: Karen Le on 06-02-2025 Platelet mean volume (Bld) [Entitic vol] 9.5 fL 6.2-12.0 [facility] Monocyte percentageOrdered B y: Karen Le on 06-02-2025 Monocytes/100 WBC (Bld) 2.5 % 0-10 [facility] Neutrophil percentageOrdered By: Karen Le on 06-02-2025 Neutrophils/100 WBC (Bld) 92.5 % High 47-70 [facility] Nucleated red blood cell per centageOrdered By: Karen Le on 06-02-2025 Nucleated RBC/100 WBC (Bld) [Ratio] 0 % 0-5 [facility] Phosphoruson 06-02-2025 Phosphate [Mass/Vol] 3.2 mg/dL Normal 2.7-4.5 [facility] Comment on above: Performed By: #### L 501.5200, L500.2500, L100.0100 #### [facility] [address] [place], [address] Platelet countOrdered By: Sejal Le on 06-02-2025 Platelets (Bld) [#/Vol] 229 10*3/uL 150-450 [facility] Potassium measurement (mass/ volume)Ordered By: Karen Le on 06-02-2025 Potassium (Unsp spec) [Mass/Vol] 4.7 mmol/L 3.3-5.1 [facility] RBC Auto (Bld) [#/Vol]Ordere d By: Karen Le on 06-02-2025 RBC (Bld) [#/Vol] 4.40 10*6/uL Low 4.6-6.2 [facility] Serum creatinine measurement (mass/volume)Ordered By: Karen Le on 06-02-2025 Creatinine [Mass/Vol] 0.73 mg/dL 0.70-1.20 [facility] Serum globulin measurementOr dered By: Karen Le on 06-02-2025 Globulin (S) [Mass/Vol] 1.9 g/dL Low 2.2-4.2 [facility] Serum glucose measurement (m ass/volume)Ordered By: Karen Le on 06-02-2025 Glucose [Mass/Vol] 165 mg/dL High 70-99 [facility] Serum or plasma alanine orta otransferase (ALT) measurementOrdered By: Karen Le on 06-02-2025 ALT [Catalytic activity/Vol] 19 U/L <47 [facility] Serum or plasma albumin christiana urement (mass/volume)Ordered By: Karen Le on 06-02-2025 Albumin [Mass/Vol] 3.7 g/dL 3.4-4.8 [facility] Serum or plasma albumin/glob ulin mass ratioOrdered By: Karen Le on 06-02-2025 Albumin/Globulin [Mass ratio] 2.0 {ratio} 0.9-2.4 [facility] Serum or plasma alkaline rachel sphatase measurementOrdered By: Karen Le on 06-02-2025 ALP [Catalytic activity/Vol] 60 U/L 40-129 [facility] Serum or plasma calcium christiana urement (mass/volume)Ordered By: Karen Le on 06-02-2025 Calcium [Mass/Vol] 9.2 mg/dL 7.6-11.0 [facility] Serum or plasma urea nitroge n measurement (mass/volume)Ordered By: Karen Le on 06-02-2025 Urea nitrogen [Mass/Vol] 23 mg/dL High 4-19 [facility] Sodium levelOrdered By: Kira Le on 06-02-2025 Sodium [Moles/Vol] 137 mmol/L 133-145 [facility] Total proteinOrdered By: Caridad Le on 06-02-2025 Protein [Mass/Vol] 5.6 g/dL Low 5.9-8.4 [facility] White blood cell (WBC) count Ordered By: Karen Le on 06-02-2025 WBC (Bld) [#/Vol] 8.0 10*3/uL 4.4-11.0 [facility] 12 Lead EKGon 06-01-2025 12 Lead EKG [facility] [address] [place] [address] 12 Lead EKG 06/01/25 0729 MR#: [id number] Acct: [id number] Name: BEATRIS QUINN Rep #: [id number] : 1950 74 From: Eh Castellon MD Attending Dr: Dr. Karen Le, DO Status: DIS I N Ordering Dr: Vivi Pike DO Date: 06/01/25 Location: 3 Sex: M C Admitted: 06/01/25 Test Reason : CP Blood Pressure : */* mmHG Vent. Rate : 69 BPM Atrial Rate : 69 BPM P-R Int : 140 ms QRS Dur : 72 ms QT Int : 382 ms P-R-T Axes : 88 78 59 degrees QTcB Int : 409 ms Normal sinus rhythm Normal ECG Confirmed by EH CASTELLON MD ([id number]), slot editor MICHELLE ROMERO ([id number]) on 06/02/2025 1:25:02 PM Referred By: Confirmed By: EH CASTELLON MD 06/02/25 1325 Date Eh Castellon MD CC: [employer]OPER-C Michelle Ferraro; Dr. Vivi Pike DO; Dr. Karen Le DO Signed Normal [facility] Absolute lymphocyte countOrd ered By: Vivi Pike on 06-01-2025 Lymphocytes Auto (Unsp spec) [#/Vol] 1.29 10*3/uL 0.83-4.51 [facility] Absolute neutrophil countOrd ered By: Vivi Pike on 06-01-2025 Neutrophils (Bld) [#/Vol] 5.8 10*3/uL 2.0-7.7 [facility] Anion gap in Serum or Plasma Ordered By: Vivi Pike on 06-01-2025 Anion gap [Moles/Vol] 8 mmol/L 5- [facility] Automated lymphocyte count a s percentage of total leukocytesOrdered By: Vivi Pike on 06-01-2025 Lymphocytes/100 WBC Auto (Unsp spec) 15.9 % Low 19-41 [facility] BUN/creatinine ratioOrdered By: Vivi Pike on 06-01-2025 Urea nitrogen/Creatinine [Mass ratio] 26.3 mg/mg High 10- [facility] Basophil percentageOrdered B y: Vivi Pike on 06-01-2025 Basophils/100 WBC (Bld) 0.5 % 0-1 [facility] Bilirubin, totalOrdered By: Vivi Pike on 06-01-2025 Bilirubin [Mass/Vol] 0.70 mg/dL 0.00-1.30 [facility] CBC W/Diff, Automatedon Absolute Lymph 1.29 X10 3/uL Normal 0.83-4.51 [facility] Comment on above: Performed By: #### L 100.0100, L500.4050 #### [facility] [address] [place], [address] Absolute Neut 5.8 X10 3/uL Normal 2.0-7.7 [facility] Comment on above: Performed By: #### L 100.0100, L500.4050 #### [facility] [address] [place], [address] Basophils/100 WBC (Bld) 0.5 % Normal 0-1 [facility] Comment on above: Performed By: #### L 100.0100, L500.4050 #### [facility] [address] [place], [address] Eosinophils/100 WBC (Bld) 2.2 % Normal 0-5 [facility] [facility] Comment on above: Performed By: #### L 100.0100, L500.4050 #### [facility] [address] [place], [address] Erythrocyte distribution width (RBC) [Ratio] 14.4 % Normal 11.6-14.6 [facility] Comment on above: Performed By: #### L 100.0100, L500.4050 #### [facility] [address] [place], [address] Hematocrit (Bld) [Volume fraction] 42.7 % Normal 40-54 [facility] Comment on above: Performed By: #### L 100.0100, L500.4050 #### [facility] [address] [place], [address] Hemoglobin (Bld) [Mass/Vol] 14.1 g/dL Normal 13.0-16.5 [facility] Comment on above: Performed By: #### L 100.0100, L500.4050 #### [facility] [address] [place], [address] IG% 0.600 Normal 0.0-0.9 [facility] Comment on above: Result Comment: IG% - Immature Granulocytes (promyelocytes, myelocytes and metamyelocytes) > 1% indicates that a LEFT SHIFT is Present. Performed By: #### L 100.0100, L500.4050 #### [facility] [address] [place], [address] Lymphocytes/100 WBC (Bld) 15.9 % Low 19-41 [facility] Comment on above: Performed By: #### L 100.0100, L500.4050 #### [facility] [address] [place], [address] MCH (RBC) [Entitic mass] 28.7 pg Normal 27.0-32.0 [facility] Comment on above: Performed By: #### L 100.0100, L500.4050 #### [facility] [address] [place], [address] MCHC (RBC) [Mass/Vol] 33.0 g/dL Normal 32-36 [facility] Comment on above: Performed By: #### L 100.0100, L500.4050 #### [facility] [address] [place], [address] MCV (RBC) [Entitic vol] 86.8 fL Normal 80-94 [facility] Comment on above: Performed By: #### L 100.0100, L500.4050 #### [facility] [address] [place], [address] Monocytes/100 WBC (Bld) 9.4 % Normal 0-10 [facility] Comment on above: Performed By: #### L 100.0100, L500.4050 #### [facility] [address] [place], [address] Neutrophils/100 WBC (Bld) 71.4 % High 47-70 [facility] Comment on above: Performed By: #### L 100.0100, L500.4050 #### [facility] [address] [place], [address] Nucleated RBC (Bld) [#/Vol] 0 10*3/uL Normal 0-5 [facility] Comment on above: Performed By: #### L 100.0100, L500.4050 #### [facility] [address] [place], [address] Platelet mean volume (Bld) [Entitic vol] 9.3 fL Normal 6.2-12.0 [facility] Comment on above: Performed By: #### L 100.0100, L500.4050 #### [facility] [address] [place], [address] Platelets (Bld) [#/Vol] 235 10*3/uL Normal 150-450 [facility] Comment on above: Performed By: #### L 100.0100, L500.4050 #### [facility] [address] [place], [address] RBC (Bld) [#/Vol] 4.92 10*6/uL Normal 4.6-6.2 [facility] Comment on above: Performed By: #### L 100.0100, L500.4050 #### [facility] [address] [place], [address] RDW SD 46.2 fl High 35.1-43.9 [facility] Comment on above: Performed By: #### L 100.0100, L500.4050 #### [facility] [address] [place], [address] WBC (Bld) [#/Vol] 8.1 10*3/uL Normal 4.4-11.0 [facility] Comment on above: Performed By: #### L 100.0100, L500.4050 #### [facility] [address] [place], [address] CTA Chest W/WO Contraston CTA Chest W/WO Contrast [facility] Imaging Services [address] [place] [address] CTA Chest W/WO Contrast MR#: [id number] Acct: [id number] Name: BEATRIS QUINN Rep #: [id number] : 1950 M 74 From: Misbah lara MD PCP: ROWENA FERRARO Status: REG ER Study: CTA Chest W/WO Contrast Date of Exam: 06/01/25 Exam# [id number] Ordering Dr: Karen Le DO PROCEDURE: CTA CHEST W/WO CONTRAST 06/01/2025 REASON FOR EXAM: HYPOXIA TECHNIQUE: Procedure Code: CTCTACHWW Modality: CT Procedure: CTA CHEST W/WO CONTRAST Multiplanar Sagittal and Coronal images were obtained. 3D post processing was performed CONTRAST: Isovue-300 VOLUME: 100 mL One or more dose reduction techniques were used (e.g., Automated exposure control, adjustment of the mA and/or kV according to patient size, use of iterative reconstruction technique). RADIATION DOSE SUMMARY: CTDlvol: 6.25 mGy DLP: 186.86 mGycm COMPARISON: Prior CT scan of the thorax dated May 28, 2024. FINDINGS: Hardware: None Lymph nodes: No significant lymph nodes are seen. Heart: Coronary artery calcification Thoracic Aorta: No thoracic aortic aneurysm or dissection. Pulmonary Vessels: No evidence of pulmonary embolism. Lungs and Airways: There is a 19.7 mm x 15.2 mm nodule in the anterior aspect of the left upper lobe. 1 cm nodule in the peripheral lateral aspect of the left lower lobe as seen on axial image number 114 there is a 4.9 mm nodule in the lateral aspect of the right middle lobe as seen on axial image number 88. There is a 12.7 mm nodule in the lateral aspect of the right lower lobe as seen on axial image number 75. Stable epicardial soft tissue density adjacent to the inferior vena cava. Diffuse emphysematous changes. Pleura: No pleural effusion. Upper Abdomen: 6 mm nonobstructive calculus in the upper pole calyx of the left kidney. Bones: CT/CTA Chest W/WO Contrast IMPRESSION: No evidence of pulmonary embolism. Bilateral pulmonary nodules superimposed on emphysematous changes. Reading Location: [id number] CC: Dr. Karen Le DO; ROWENA FERRARO Seat Cover Cutter: Signed Normal [facility] Carbon dioxide, total [Moles /volume] in Central venous bloodOrdered By: Vivi Pike on 06-01-2025 CO2 [Moles/Vol] 29.4 mmol/L 21.0-32.0 [facility] Chest PA and Lateralon 06-01 Chest PA and Lateral [facility] Imaging Services [address] [place] [address] Chest PA and Lateral MR#: [id number] Acct: [id number] Name: BEATRIS QUINN Rep #: [id number] : 1950 M 74 From: Jim Powell MD PCP: ROWENA FERRARO Status: REG ER Study: Chest PA and Lateral Date of Exam: 06/01/25 Exam# [id number] Ordering Dr: Vivi Pike DO PROCEDURE: CHEST PA AND LATERAL 06/01/2025 REASON FOR EXAM: SOB TECHNIQUE: Procedure Code: RADCXR Modality: DX Procedure: CHEST PA AND LATERAL COMPARISON: December 01, 2024 FINDINGS: Hardware: EKG leads. Suture anchors at the humeral heads. Heart: Normal Mediastinum: No mass. Calcified granulomas preaortic and right lower paratracheal region. Lungs: The consolidation and adjacent airspace disease associated with the cavitary nodule in the lingula is smaller. Nodule right middle lobe decreased. No new consolidation. Bones: Degenerative changes are identified within the thoracic spine. RAD/Chest PA and Lateral IMPRESSION: 1. Interval decrease in size of the lingular and right middle lobe lesions. These were likely infectious/inflammator y. No new consolidation. 2. Granulomas. Reading Location: [id number] CC: Dr. Vivi Pike, DO; ROWENA FERRARO Seat Cover Cutter: Signed Normal [facility] Chloride assayOrdered By: Sudheer Pike on 06-01-2025 Chloride [Moles/Vol] 100 mmol/L 98-108 [facility] Comprehensive Metabolic Prof ilon 06-01-2025 Albumin [Mass/Vol] 4.0 g/dL Normal 3.4-4.8 [facility] Comment on above: Performed By: #### L 100.0100, L500.4050 #### [facility] [address] [place], [address] Albumin/Globulin [Mass ratio] 1.8 {ratio} Normal 0.9-2.4 [facility] Comment on above: Performed By: #### L 100.0100, L500.4050 #### [facility] [address] [place], [address] ALK PHOS 67 U/L Normal 40-129 [facility] Comment on above: Performed By: #### L 100.0100, L500.4050 #### [facility] [address] [place], [address] ALT [Catalytic activity/Vol] 17 U/L Normal <=46 [facility] Comment on above: Performed By: #### L 100.0100, L500.4050 #### [facility] [address] [place], [address] AST [Catalytic activity/Vol] 23 U/L Normal <=37 [facility] Comment on above: Performed By: #### L 100.0100, L500.4050 #### [facility] [address] [place], [address] Bilirubin [Mass/Vol] 0.70 mg/dL Normal 0.00-1.30 [facility] Comment on above: Performed By: #### L 100.0100, L500.4050 #### [facility] [address] [place], [address] BUN/CRE 26.3 RATIO High 10-20 [facility] Comment on above: Performed By: #### L 100.0100, L500.4050 #### [facility] [address] [place], [address] Calcium [Mass/Vol] 9.3 mg/dL Normal 7.6-11.0 [facility] Comment on above: Performed By: #### L 100.0100, L500.4050 #### [facility] [address] [place], [address] Chloride [Moles/Vol] 100 mmol/L Normal 98-108 [facility] Comment on above: Performed By: #### L 100.0100, L500.4050 #### [facility] [address] [place], [address] CO2 [Moles/Vol] 29.4 mmol/L Normal 21.0-32.0 [facility] Comment on above: Performed By: #### L 100.0100, L500.4050 #### [facility] [address] [place], [address] Creatinine [Mass/Vol] 0.99 mg/dL Normal 0.70-1.20 [facility] Comment on above: Performed By: #### L 100.0100, L500.4050 #### [facility] [address] [place], [address] ECRCL 50.93 ml/min Normal 50-250 [facility] Comment on above: Performed By: #### L 100.0100, L500.4050 #### [facility] [address] [place], [address] GAP 8 Normal 5-15 [facility] Comment on above: Performed By: #### L 100.0100, L500.4050 #### [facility] [address] [place], [address] GFR/1.73 sq M.predicted among non-blacks MDRD (S/P/Bld) [Vol rate/Area] 80 mL/min/{1.73_m2} Normal >60 [facility] Comment on above: Result Comment: mL/m in/1.73m2 CKD-EPI Creatinine Equation (2020) Performed By: #### L 100.0100, L500.4050 #### [facility] [address] [place], [address] Globulin (S) [Mass/Vol] 2.2 g/dL Normal 2.2-4.2 [facility] Comment on above: Performed By: #### L 100.0100, L500.4050 #### [facility] [address] [place], [address] Glucose [Mass/Vol] 104 mg/dL High 70-99 [facility] Comment on above: Performed By: #### L 100.0100, L500.4050 #### [facility] [address] [place], [address] Potassium [Moles/Vol] 4.4 mmol/L Normal 3.3-5.1 [facility] Comment on above: Performed By: #### L 100.0100, L500.4050 #### [facility] [address] [place], [address] Sodium [Moles/Vol] 137 mmol/L Normal 133-145 [facility] Comment on above: Performed By: #### L 100.0100, L500.4050 #### [facility] [address] [place], [address] T PROT 6.1 g/dL Normal 5.9-8.4 [facility] Comment on above: Performed By: #### L 100.0100, L500.4050 #### [facility] [address] [place], [address] Urea nitrogen [Mass/Vol] 26 mg/dL High 4-19 [facility] Comment on above: Performed By: #### L 100.0100, L500.4050 #### [facility] [address] [place], [address] Emergency Department Summary on 06-01-2025 Emergency Department Summary [facility] Medical Records Department [address] [place] [address] Emergency Department Summary 06/01/25 MR#: [id number] Acct: [id number] Name: BEATRIS QUINN Eligio Rep #: [id number] : 1950 74 From: Vivi Pike DO PCP: ROWENA FERRARO Status:REG ER Location: ED HPI History of Present Illness Chief Complaint: Shortness of Breath Informant: patient Narrative Narrative: Patient is a 74-year-old male with history of COPD, wears oxygen at night, anxiety, aortic stenosis, hypertension presenting with worsening shortness of breath as well as left-sided pleuritic chest pain. Patient states that for the past 2 to 3 days he has had increased shortness of breath, chest tightness and is now having pain with deep breath. States it is over his entire left chest and into his breastbone. States has had scant amount of green sputum but he feels that there is more secretions up there just cannot get it out. Does not have any significant relief with his breathing treatments at home. Notes he has had a mild sore throat. Denies any fevers. Not any blood thinners. Denies any swelling of his legs. Is not any blood thinners. States he is concerned he has pneumonia and this is how his prior pneumonias have felt like. No other complaints or concerns reported at this time. PE Risk Factors: Negative for Cancer, OCP + Smoking + > 35, Prior DVT or PE, Recent immobilization, Recent surgery or Recent [facility] Medical History Aortic stenosis Elevated coronary artery calcium score Urinary retention Heart murmur Anxiety On home oxygen therapy Acute hypoxemic respiratory failure Pneumonia COPD (chronic obstructive pulmonary disease) [place] (hard of hearing) Hypertension Home Medications ???Medication ???Instructions ???Recorded ???Last Taken ???Type amlodipine 5 mg tablet 5 mg PO DAILY blood pressure 03/0606/01/25 History albuterol sulfate 2.5 mg/3 mL 2.5 mg (3 mL) inhalation Q4H PRN 0 12/11/23 06/01/25 Rx (0.083 %) solution for nebulization #25 vials garlic 1,000 mg capsule 1,000 mg PO DAILY general health 0 12/17/23 Unknown History vitamin E 268 mg (400 unit) capsule 268 mg PO DAILY blood clot 11/2506/01/25 History prevention alprazolam 0.25 mg tablet (Xanax) 0.375 mg PO QHS anxiety 02/28/24 05/31/25 History fluticasone fur. 100 mcg-umeclid 1 inh inhalation DAILY 02/28/24 History 62.5 mcg-vilant 25 mcg inhalat.powder (Trelegy Ellipta) albuterol sulfate 90 mcg/actuation 1 inh inhalation Q6H PRN shortne ss 12/01/24 05/31/25 History aerosol inhaler of breath or wheezing prednisone 5 mg tablet 5 mg PO DAILY PRN sob 06/01/2502/17 History Allergy/AdvReac Type Severity Reaction Status Date / Time No Known Allergies Allergy Verified 06/01/25 07:22 Surgical History Hx of hernia repair History of replacement of both shoulder joints Social History Smoking Status: Former smoker ROS ROS ED Constitutional Constitutional ED: Denies chills or fever(s) ENT ENT ED: Reports sore throat; Denies rhinorrhea Cardiovascular Cardiovascular: Reports chest pain; Denies orthopnea or palpitations Respiratory/Chest Respiratory/Chest: Reports cough, dyspnea, dyspnea on exertion and sputum; Denies orthopnea Gastrointestinal Gastrointestinal: Denies abdominal pain, nausea or vomiting Genitourinary Genitourinary ED: Reports other Details: Reports chronic frequent nocturnal urination Musculoskeletal Musculoskeletal: Denies arthralgias or myalgias Integumentary Denies rash Psychiatric Psychiatric: Reports anxiety Hematologic/Lymphatic Hematologic/Lymphatic: Denies easy bleeding or easy bruising EXAM Physical Exam Const Vital Signs: 06/01/25 07:20 06/01/25 07:50 06/01/25 07:51 Temperature 98 F Temperature Source Oral Pulse Rate 72 64 Respiratory Rate 20 H 16 Respiratory Effort Normal Non-Labored Respiratory Depth Normal Respiratory Pattern Normal Normal Blood Pressure 153/77 H Blood Pressure Mean 102 Pulse Ox 95 Oxygen Delivery Method Room Air Room Air 06/01/25 08:18 06/01/25 08:47 06/01/25 09:42 Temperature Temperature Source Pulse Rate 67 75 82 Respiratory Rate 16 16 18 Respiratory Effort Respiratory Depth Respiratory Pattern Normal Normal Blood Pressure 139/76 H Blood Pressure Mean 97 Pulse Ox 94 Oxygen Delivery Method Room Air 06/01/25 11:00 06/01/25 11:59 Temperature 98.2 F Temperature Source Pulse Rate 80 80 Respiratory Rate 16 16 Respiratory Effort Respiratory Depth Respiratory Pattern Blood Pressure 156/85 H (more content not included)... Normal [facility] Eosinophil percentageOrdered By: Vivi Pike on 06-01-2025 Eosinophils/100 WBC (Bld) 2.2 % 0-5 [facility] Erythrocyte distribution wid th ratioOrdered By: Vivi Pike on 06-01-2025 Erythrocyte distribution width (RBC) [Ratio] 14.4 % 11.6-14.6 [facility] Erythrocyte distribution wid th standard deviationOrdered By: Vivi Pike on 06-01-2025 Erythrocyte distribution width (RBC) [Ratio] 46.2 fl High 35.1-43.9 [facility] Glomerular filtration rate ( GFR) estimation/1.73 sq m using serum, plasma, or whole bOrdered By: Vivi Pike on 06-01-2025 GFR/1.73 sq M.predicted among non-blacks MDRD (S/P/Bld) [Vol rate/Area] 80 mL/min/{1.73_m2} >60 [facility] Comment on above: mL/min/1.73m2 CKD-EP I Creatinine Equation (2020) H AND P Exam - [facility] 06-01-2025 H&P Exam - Hospitalist [facility] Medical Records Department [address] [place] [address] H P Exam - Hospitalist 06/01/25 1056 MR#: [id number] Acct: [id number] Name: BEATRIS QUINN Rep #: [id number] : 1950 74 From: Karen Le DO PCP: Michelle Ferraro, [employer] Status:ADM IN Location: [facility] [id number] HPI - General General Date of Admission: 06/01/25 Date of Service: 06/01/25 Chief Complaint: Shortness of breath HPI Narrative BEATRIS QUINN, is a 74 M who presented to the emergency department at [facility] on 06/01/2025 with chief complaint of shortness of breath. Patient states she has had symptoms of shortness of breath that have been slowly worsening but really got bad in the last 24 to 48 hours. He states has had a dry cough with some intermittent production of sputum that is greenish in nature which is different from his baseline. He has been extremely short of breath especially when he moves around. He states he feels better when he rests. He has been taking his inhalers at home. He has had no fever or chills. He denies myalgias or arthralgias. He denies nausea or vomiting. He has had no diarrhea or constipation. He states he was able to work but was just very fatigued last night so we decided to be evaluated in the emergency department with his ongoing shortness of breath. He has followed previously with Dr. Perez follow-up Dr. Jara not call he still in PACU as far as I know are you going to talk to the son you from pulmonary medicine. Vital signs on presentation showed a temperature of 98, heart rate 72, respiratory 20, blood pressure of 153/77 pulse ox was 95% on room air however ambulatory pulse ox was done after he was treated by the emergency department physician and he did desat. Oxygen saturation with ambulation was 85 in the emergency department and has improved to 89 once he is on the floor. CBC showed a normal white count but he did have a mild left shift with a 71.4% neutrophilia. Chemistry panel was unremarkable. His initial troponin was 32 with a delta of 32 and a 4-hour troponin of 26. TSH was within normal limits. BNP was normal. We had a CTA of his chest and was found to have no evidence of PE, no infiltrate but does have bilateral pulmonary nodule superimposed on emphysematous changes. Patient does indicate he has had previous pulmonary nodules that have been followed with Dr. Perez as an outpatient. He was treated for COPD exacerbation emergency department and request for admission was made. He will be admitted to [facility] and at the time of admission I do anticipate at least 2 midnight stay. [facility] Medical History COPD (chronic obstructive pulmonary disease) Hypertension Aortic stenosis Elevated coronary artery calcium score Urinary retention Heart murmur Anxiety On home oxygen therapy Acute hypoxemic respiratory failure Pneumonia COPD (chronic obstructive pulmonary disease) [place] (hard of hearing) Hypertension Home Medications ???Medication ???Instructions ???Recorded ???Last Taken ???Type amlodipine 5 mg tablet 5 mg PO DAILY blood pressure 03/0606/01/25 History albuterol sulfate 2.5 mg/3 mL 2.5 mg (3 mL) inhalation Q4H PRN 0 12/11/23 06/01/25 Rx (0.083 %) solution for nebulization #25 vials garlic 1,000 mg capsule 1,000 mg PO DAILY general health 0 12/17/23 Unknown History vitamin E 268 mg (400 unit) capsule 268 mg PO DAILY blood clot 11/2506/01/25 History prevention alprazolam 0.25 mg tablet (Xanax) 0.375 mg PO QHS anxiety 02/28/24 05/31/25 History fluticasone fur. 100 mcg-umeclid 1 inh inhalation DAILY 02/28/24 History 62.5 mcg-vilant 25 mcg inhalat.powder (Trelegy Ellipta) albuterol sulfate 90 mcg/actuation 1 inh inhalation Q6H PRN shortne ss 12/01/24 05/31/25 History aerosol inhaler of breath or wheezing prednisone 5 mg tablet 5 mg PO DAILY PRN sob 06/01/2502/17 History Allergy/AdvReac Type Severity Reaction Status Date / Time No Known Allergies Allergy Verified 06/01/25 07:22 Surgical History Hx of hernia repair History of replacement of both shoulder joints Social History (Updated 06/01/25 @ 16:[address] Karen Le DO) household members: spouse housing: house Smoking Status: Former smoker alcohol intake: never substance use type: does not use ROS Constitutional Constitutional: Reports change in weight, fatigue and weakness; Denies anorexia, chills, fever(s), malaise, night sweats or other Eyes Eyes: Denies blurry vision, change in eye color, change in vision, discharge from eye(s), double vision, erythema, eye pain, loss of vision or other ENT HEENT: Denies abnormal hearing, dysphagia, ear pain, epistaxis, headache(s), hearing loss, nasal congestio (more content not included)... Normal [facility] Hematocrit Auto (Bld) [Volum e fraction]Ordered By: Vivi Pike on 06-01-2025 Hematocrit (Bld) [Volume fraction] 42.7 % 40-54 [facility] Hemoglobin measurementOrdere d By: Vivi Pike on 06-01-2025 Hemoglobin (Bld) [Mass/Vol] 14.1 g/dL 13.0-16.5 [facility] Immature granulocytes/100 WB C Auto (Bld)Ordered By: Vivi Pike on 06-01-2025 Immature granulocytes/100 WBC (Bld) 0.600 % 0.0-0.9 [facility] Comment on above: IG% - Immature Granu locytes (promyelocytes, myelocytes and metamyelocytes) > 1% indicates that a LEFT SHIFT is Present. Influenza virus A and B and SARS-CoV-2 (COVID-19) and Respiratory syncytial virus RNAOrdered By: Vivi Pike on 06-01-2025 SARS-CoV-2 (COVID-19) RNA JELENA+probe Ql (Unsp spec) [facility] L501.4021on 06-01-2025 Trop T High Sen 32 ng/L High <=22 [facility] Comment on above: Performed By: #### L 501.5200, L500.2500, L100.0100 #### [facility] [address] [place], [address] Laboratory - Chemistry and C hemistry - challengeOrdered By: Vivi Pike on 06-01-2025 AST [Catalytic activity/Vol] 23 U/L <38 [facility] M100.678on 06-01-2025 M100.678 Pending SARS-CoV-2 (COVID 19) Negative INFLUENZA A Negative INFLUENZA B Negative RSV PCR Negative Normal [facility] Comment on above: Performed By: #### L 501.5200, L500.2500, L100.0100 #### [facility] [address] [place], [address] MCV (mean corpuscular volume ) determinationOrdered By: Vivi Pike on 06-01-2025 MCV (RBC) [Entitic vol] 86.8 fL 80-94 [facility] Mean corpuscular hemoglobin (MCH) determinationOrdered By: Vivi Pike on 06-01-2025 MCH (RBC) [Entitic mass] 28.7 pg 27.0-32.0 [facility] Mean corpuscular hemoglobin concentration (MCHC) determinationOrdered By: Vivi Pike on 06-01-2025 MCHC (RBC) [Mass/Vol] 33.0 g/dL 32-36 [facility] Mean platelet volume determi nationOrdered By: Vivi Pike on 06-01-2025 Platelet mean volume (Bld) [Entitic vol] 9.3 fL 6.2-12.0 [facility] Monocyte percentageOrdered B y: Vivi Pike on 06-01-2025 Monocytes/100 WBC (Bld) 9.4 % 0-10 [facility] Natriuretic peptide.B prohor [place] N-Terminal [Mass/volume] in Serum or PlasmaOrdered By: Karen Le on 06-01-2025 Natriuretic peptide.B prohormone N-Terminal [Mass/Vol] 273 pg/mL <900 [facility] Comment on above: Heart Failure Unlike ly: < 300 pg/mLHeart Failure Likely< 50 Years: > 450 pg/mL50-75 Years: > 900 pg/mL>75 Years: > 1800 pg/mL Neutrophil percentageOrdered By: Vivi Pike on 06-01-2025 Neutrophils/100 WBC (Bld) 71.4 % High 47-70 [facility] Nucleated red blood cell per centageOrdered By: Vivi Pike on 06-01-2025 Nucleated RBC/100 WBC (Bld) [Ratio] 0 % 0-5 [facility] Platelet countOrdered By: Sudheer Pike on 06-01-2025 Platelets (Bld) [#/Vol] 235 10*3/uL 150-450 [facility] Potassium measurement (mass/ volume)Ordered By: Vivi Pike on 06-01-2025 Potassium (Unsp spec) [Mass/Vol] 4.4 mmol/L 3.3-5.1 [facility] Pro- Brain NATRIURETIC PEPTI William 06-01-2025 Natriuretic peptide B (Bld) [Mass/Vol] 273 pg/mL Normal <=900 [facility] Comment on above: Result Comment: Hear t Failure Unlikely: < 300 pg/mL Heart Failure Likely < 50 Years: > 450 pg/mL 50-75 Years: > 900 pg/mL >75 Years: > 1800 pg/mL Performed By: #### L 501.5200, L500.2500, L100.0100 #### [facility] [address] [place] [address], [address]21 RBC Auto (Bld) [#/Vol]Ordere d By: Vivi Pike on 06-01-2025 RBC (Bld) [#/Vol] 4.92 10*6/uL 4.6-6.2 [facility] RESPIRATORY PANEL MOLECULARo n 06-01-2025 RP PANEL ADENOVIRUS Not Detected INFLUENZA A Not Detected INFLUENZA A (SUBTYPE H1) Not Detected INFLUENZA A (SUBTYPE H3) Not Detected INFLUENZA B Not Detected HUMAN METAPHNEUMO Not Detected PARAINFLUENZA 1 Not Detected PARAINFLUENZA 2 Not Detected PARAINFLUENZA 3 Not Detected PARAINFLUENZA 4 Not Detected RHINOVIRUS Not Detected RSV A Not Detected RSV B Not Detected Normal [facility] Comment on above: Performed By: #### L 501.2290, L500.2500, L100.0100 #### [facility] [place], [address] Respiratory pathogens detect ion panel by molecular detection methodOrdered By: Karen Le on 06-01-2025 Respiratory pathogens DNA and RNA panel JELENA+probe (Resp) [facility] Serum creatinine measurement (mass/volume)Ordered By: Vivi Pike on 06-01-2025 Creatinine [Mass/Vol] 0.99 mg/dL 0.70-1.20 [facility] Serum globulin measurementOr dered By: Vivi Pike on 06-01-2025 Globulin (S) [Mass/Vol] 2.2 g/dL 2.2-4.2 [facility] Serum glucose measurement (m ass/volume)Ordered By: Vivi Pike on 06-01-2025 Glucose [Mass/Vol] 104 mg/dL High 70-99 [facility] Serum or plasma alanine orta otransferase (ALT) measurementOrdered By: Vivi Pike on 06-01-2025 ALT [Catalytic activity/Vol] 17 U/L <47 [facility] Serum or plasma albumin christiana urement (mass/volume)Ordered By: Vivi Pike on 06-01-2025 Albumin [Mass/Vol] 4.0 g/dL 3.4-4.8 [facility] Serum or plasma albumin/glob ulin mass ratioOrdered By: Vivi Pike on 06-01-2025 Albumin/Globulin [Mass ratio] 1.8 {ratio} 0.9-2.4 [facility] Serum or plasma alkaline rachel sphatase measurementOrdered By: Vivi Pike on 06-01-2025 ALP [Catalytic activity/Vol] 67 U/L 40-129 [facility] Serum or plasma calcium christiana urement (mass/volume)Ordered By: Vivi Pike on 06-01-2025 Calcium [Mass/Vol] 9.3 mg/dL 7.6-11.0 [facility] Serum or plasma urea nitroge n measurement (mass/volume)Ordered By: Vivi Pike on 06-01-2025 Urea nitrogen [Mass/Vol] 26 mg/dL High 4-19 [facility] Sodium levelOrdered By: Jenise Pike on 06-01-2025 Sodium [Moles/Vol] 137 mmol/L 133-145 [facility] TSH DL <= 0.005 mIU/L QnOrde red By: Vivi Pike on 06-01-2025 TSH Qn 3.320 uIU/mL 0.300-4.200 [facility] Thyroid Stim Hormone (TSH)on 06-01-2025 TSH 3.320 uIU/mL Normal 0.300-4.200 [facility] Comment on above: Performed By: #### L 501.5200, L500.2500, L100.0100 #### [facility] [address] [place], [place], [phone] (186) Total proteinOrdered By: Keily Pike on 06-01-2025 Protein [Mass/Vol] 6.1 g/dL 5.9-8.4 [facility] Troponin T HS 2 HRon 025 Trop T High Sen 32 ng/L High <=22 [facility] Comment on above: Performed By: #### L 499.0042 #### [facility] [address] [place], [place], [id number] Troponin T HS 4 HRon 025 Trop T High Sen 26 ng/L High <=22 [facility] Comment on above: Performed By: #### L 499.0043 #### [facility] [address] [place], [place], [phone] (146) Troponin T.cardiac [Mass/vol ume] in Serum or Plasma by High sensitivity methodOrdered By: Vivi Pike on 06-01-2025 Troponin T.cardiac High sensitivity method [Mass/Vol] 26 ng/L High <22 [facility] Troponin T.cardiac High sensitivity method [Mass/Vol] 32 ng/L High <22 [facility] Troponin T.cardiac High sensitivity method [Mass/Vol] 32 ng/L High <22 [facility] Comment on above: Delta: 17 on 5-1040 White blood cell (WBC) count Ordered By: Vivi Pike on 06-01-2025 WBC (Bld) [#/Vol] 8.1 10*3/uL 4.4-11.0 [facility] CNOVon 04-16-2025 CNOV Office Visit ([facility] ) BEATRIS QUINN ([id number]) 1950 M Date Time Provider Department 04/16/25 10:00 AM TIGRE RESTREPO [facility] During your visit today, we recorded the following information about you: Pulse Blood pressure Weight 72/minute 128/72 55.6 kg Tigre Restrepo MD 04/16/2025 10:39 AM [facility] DEPART[facility]ULMON[facility] MEDICINE ESTABLISHED PATIENT OFFICE VISIT 04/16/2025 Patient Name: Beatris Quinn PRIMARY CARE PHYSICIAN: Jr Ryan DO CHIEF COMPLAINT: lung nodules, COPD/asthma, allergies, mild CAD, aortic stenosis HISTORY OF PRESENT ILLNESS: Since the last visit with me on 09/2024, Mr. Quinn has been feeling well. 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 voriconazole (VFEND) 200 mg tablet Take 1 tablet by mouth two times a day. fluticasone-umeclidin- vilanter (TRELEGY ELLIPTA) 100-62.5-25 mcg inhalation powder Inhale 1 Puff as instructed once daily. MAGNESIUM ORAL Take by mouth. VITAMIN E ORAL Take by mouth. predniSONE EC 5 mg Delayed Release Tab Take 5 mg by mouth. taking 1/2 tablet daily GARLIC ORAL Take by mouth. albuterol HFA (PROAIR HFA) 90 mcg/actuation inhaler 2 puff(s), Inhalation, q4h, PRN as needed for wheezing amLODIPine (NORVASC) 5 mg tablet Take 1 tablet by mouth once daily. omeprazole (PRILOSEC) 20 mg capsule Take 1 capsule by mouth daily before breakfast. 1/2 hr before meal. Herbal Drugs cap Take 1 capsule by mouth once daily. gabapentin (NEURONTIN) 100 mg capsule Take 1 capsule by mouth three times daily for 30 days. fluticasone-vilanterol (BREO ELLIPTA) 200-25 mcg/dose inhaler Inhale 1 Inhalation as instructed once daily. Pt states only using 125mcg now REVIEW OF SYSTEMS Review of Systems Constitutional: Negative for chills, fever and weight loss. Respiratory: Positive for cough and sputum production. Negative for hemoptysis, shortness of breath and wheezing. Cardiovascular: Negative for leg swelling. The remainder of review of systems was negative. PHYSICAL EXAMINATION: BP 128/72 Pulse 72 Wt 122 lb 9.2 oz (55.6kg) SpO2 96% General appearance: Well appearing, alert, in no acute distress, well-hydrated, well nourished. Oropharynx: Lips, mucosa, and tongue normal, teeth and gums normal, oropharynx normal Lungs: Lungs clear to auscultation. No wheezing, rhonchi, rales Heart: RRR without murmur, gallop, or rubs. No ectopy. No edema. Peripheral pulses: Normal Abdomen: Normal abdominal exam, Abdomen soft, non-tender. Bowel sounds normal. No masses, organomegaly Extremities: Normal, Warm, and No cyanosis, no clubbing, Nontender Neuro: no focal deficit Psychiatry: Alert, oriented x3 DATA: Diagnostic tests reviewed and analysed for today's visit, including films and specimens, were personally reviewed by me Most recent labs and imaging results. No results found. CT CHEST WO IVCON Result Date: 10/20/2024 IMPRESSION: 1. Resolution of previous described consolidative opacities in the right lower lobe 2. Some of the previously described pulmonary nodules have slightly decreased in size. No new pulmonary nodules. 3. Again noted is bilateral bronchial wall thickening, bronchiectasis and mucous plugging. Bilateral clustered nodules in a tree-in-bud distribution which are most likely infectious/inflammator y. Seat Cover Cutter: [id number] Transcribe Date/Time: Oct 20 2024 1:36P Dictated by : MICAELA FONTAINE MD This examination was interpreted and the report reviewed and electronically signed by: MICAELA FONTAINE MD on Oct 20 2024 2:05PM EST IMPRESSION: 1. Lung nodules - ICD9: 793.19, ICD10: R91.8 (primary diagnosis) Ct chest 02/06/2024: Lymphadenopathy up to 14 mm Multiple nodules, some are calcified, others have neoplastic appearance, largest [id number] lateral segment RML. Cavitary type lesion EDWIN [id number] Multiple large opacities, one of them is cavitated Course of antibiotic completed PET scan 03/2024 * Numerous metabolically active bilateral lung nodules are similar to 03/27/2024. * Dominant 2.9 cm left upper lobe nodule with resolved cavitary component. Ct chest 04/2024 Compared to 03/27/2024 exam, most of the (more content not included)... Normal [facility] CT CHEST WO IVCONon 04-16-20 CT CHEST WO IVCON * * *Final Report* * * DATE OF EXAM: Apr 16 2025 8:58AM [facility] 0541 - CT CHEST WO IVCON / PROCEDURE REASON: R91.8-Lung mass * * * * Physician Interpretation * * * * EXAMINATION: CHEST CT WITHOUT CONTRAST CLINICAL HISTORY: Lung mass Technique: Spiral CT acquisition of the chest from the thoracic inlet to the upper abdomen without contrast. MQ: [id number] CT Radiation dose: Integrated Dose-length product (DLP) for this visit = 146 mGy*cm CT Dose Reduction Employed: Automated exposure control(AEC) and iterative recon Comparison: 10/06/2024 RESULT: Limitations: None. Lines, tubes, and devices: None. Lung parenchyma and airways: Calcified granulomas are seen within the lungs. There is emphysema, with mild, diffuse bronchiectasis. Secretions are seen within the trachea and mainstem bronchi. There is no pneumothorax. There are stable nodular opacities seen within both lungs. For example, there is a stable nodular opacity left upper lobe, measuring approximately 2.4 x 2.0 cm (series 2, image #112). Additionally there are regions of parenchymal scarring again seen. Both lungs as well as wtel-ey-mjn-type pulmonary nodules and mucoid impaction, predominantly within the right lower lobe. Overall, findings have not changed in the interval. Pleural space: There is no pleural effusion. Lower neck, lymph nodes, and mediastinum: There are calcified mediastinal and hilar lymph nodes from remote granulomatous disease. No radha lymphadenopathy is seen within the chest. Heart, pericardium, and thoracic vessels: Atherosclerotic calcifications are present within the thoracic aorta and coronary arteries. The heart is normal in size. There is no significant pericardial effusion. There are aortic valvular calcifications. 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 There is osteopenia. Suture anchors within the left humeral head. There is multilevel degenerative change seen within the thoracic spine. Mild scoliosis of the thoracic spine. A few presumed bone islands are seen within the osseous structures. Upper abdomen: Nonspecific wall thickening of the stomach likely secondary to underdistention. Granulomas are seen within the spleen. Nonobstructing left nephrolithiasis. There is nonspecific bilateral perinephric fat stranding. IMPRESSION: Emphysema, with mild, diffuse bronchiectasis. Stable nodular opacities and chxl-jn-sut-type pulmonary nodules associated within the lungs. Mild, diffuse bronchiectasis. Secretions within the trachea and mainstem bronchi. Sequela of remote granulomatous disease. Overall, findings have not significantly changed in the interval. No radha lymphadenopathy is seen within the chest. Seat Cover Cutter: PSCB Transcribe Date/Time: Apr 17 2025 7:06A Dictated by : MIKE BLACKWOOD MD This examination was interpreted and the report reviewed and electronically signed by: MIKE BLACKWOOD MD on Apr 17 2025 4:14PM EST [id number] Normal [facility] Respiratory Cultureon 2024 RESPC Not obtained in 1 hr , induce w/nebulized 0.9% NaCL #1 Ampicillin can be used for Beta-Lactamase negative isolates. Trimeth/Sulfa, Chloramphenicol, Cefotaxime, Ciprofloxacin, Amoxicillin/Clavulanic Acid, and Oral 2nd/3rd Generation Cephalosporins are effective against both Beta-Lactamase positive and Beta-Lactamase negative isolates. Microorganism Spec Cult #2 POSSIBLE MDRO, FURTHER STUDIES TO FOLLOW FROM [facility] Copy of report sent to Infection Control Printer [id number] 12/04/24 0749 BLUCADorothy. Microorganism Spec Cult Microorganism Spec Cult Haemophilus influenzae Amount Growth 1+ Beta Lactamase-Reportable Negative Stenotrophomonas maltophilia Stenotrophomonas maltophilia: REACTION levoFLOXacin Islt ELOY 4 I TMP SMX Islt ELOY 80 R Minocycline Islt ELOY S Normal [facility] Comment on above: Performed By: #### L 501.5200, L500.2500, L100.0100 #### [facility] [address] [place], [address] 12 Lead EKGon 12-02-2024 12 Lead EKG [facility] [address] [place] [address] 12 Lead EKG 12/01/24 1117 MR#: [id number] Acct: [id number] Name: BEATRIS QUINN Rep #: [id number] : 1950 73 From: Eh Castellon MD Attending Dr: Dr. Anirudh Thompson DO Status: DIS IN Ordering Dr: Anirudh Thompson DO Date: 12/02/24 Location: [facility] Sex: M C Admitted: 12/01/24 Test Reason : Blood Pressure : */* mmHG Vent. Rate : 90 BPM Atrial Rate : 90 BPM P-R Int : 154 ms QRS Dur : 82 ms QT Int : 338 ms P-R-T Axes : 86 75 -12 degrees QTcB Int : 413 ms Normal sinus rhythm ST T wave abnormality, consider inferior ischemia Abnormal ECG When compared with ECG of 28-May-2024 07:59, Non-specific change in ST segment in Anterior leads T wave inversion now evident in Inferior leads T wave inversion now evident in Anterior leads Confirmed by CANDE JOHNS, EH ([id number]), slot editor MICHELLE ROMERO ([id number]) on 12/03/2024 8:44:47 AM Referred By: COLETTE Confirmed By: EH CASTELLON MD 12/03/2444 Date Eh Castellon MD CC: SENIOR MOBILE DEVELOPER-C Michelle Ferraro; Dr. Anirudh Thompson, DO Signed Normal [facility] Absolute neutrophil countOrd ered By: Anirudh Thompson on 12-02-2024 Neutrophils (Bld) [#/Vol] 13.0 10*3/uL High 2.0-7.7 [facility] Anion gap in Serum or Plasma Ordered By: Anirudh Thompson on 12-02-2024 Anion gap [Moles/Vol] 10 mmol/L 5-15 [facility] BUN/creatinine ratioOrdered By: Anirudh Thompson on 12-02-2024 Urea nitrogen/Creatinine [Mass ratio] 24.4 mg/mg High 10-20 [facility] Basic Metabolic Profile (BMP )on 12-02-2024 BUN/CRE 24.4 RATIO High 10-20 [facility] Comment on above: Performed By: #### L 500.2500, L500.4100, L100.0100 #### [facility] [address] [place], [address] Calcium [Mass/Vol] 9.6 mg/dL Normal 7.6-11.0 [facility] Comment on above: Performed By: #### L 500.2500, L500.4100, L100.0100 #### [facility] [address] [place], [address] Chloride [Moles/Vol] 102 mmol/L Normal 98-108 [facility] Comment on above: Performed By: #### L 500.2500, L500.4100, L100.0100 #### [facility] [address] [place], [address] CO2 [Moles/Vol] 26.1 mmol/L Normal 21.0-32.0 [facility] Comment on above: Performed By: #### L 500.2500, L500.4100, L100.0100 #### [facility] [address] [place], [address] Creatinine [Mass/Vol] 0.84 mg/dL Normal 0.70-1.20 [facility] Comment on above: Performed By: #### L 500.2500, L500.4100, L100.0100 #### [facility] [address] [place], [address] ECRCL 62.26 ml/min Normal 50-250 [facility] Comment on above: Performed By: #### L 500.2500, L500.4100, L100.0100 #### [facility] [address] [place], [address] GAP 10 Normal 5-15 [facility] Comment on above: Performed By: #### L 500.2500, L500.4100, L100.0100 #### [facility] [address] [place], [address] GFR/1.73 sq M.predicted among non-blacks MDRD (S/P/Bld) [Vol rate/Area] 92 mL/min/{1.73_m2} Normal >60 [facility] Comment on above: Result Comment: mL/m in/1.73m2 CKD-EPI Creatinine Equation (2020) Performed By: #### L 500.2500, L500.4100, L100.0100 #### [facility] [address] [place], [address] Glucose [Mass/Vol] 174 mg/dL High 70-99 [facility] Comment on above: Performed By: #### L 500.2500, L500.4100, L100.0100 #### [facility] [address] [place], [address] Potassium [Moles/Vol] 4.5 mmol/L Normal 3.3-5.1 [facility] Comment on above: Performed By: #### L 500.2500, L500.4100, L100.0100 #### [facility] [address] [place], [address] Sodium [Moles/Vol] 138 mmol/L Normal 133-145 [facility] Comment on above: Performed By: #### L 500.2500, L500.4100, L100.0100 #### [facility] [address] [place], [address] Urea nitrogen [Mass/Vol] 21 mg/dL High 4-19 [facility] Comment on above: Performed By: #### L 500.2500, L500.4100, L100.0100 #### [facility] [address] [place], [address] Basophil percentageOrdered B y: Anirudh Thompson on 12-02-2024 Basophils/100 WBC (Bld) 0.1 % 0-1 [facility] CBC W/Diff, Automatedon 04-0 Absolute Lymph 0.30 X10 3/uL Low 0.83-4.51 [facility] Comment on above: Performed By: #### L 500.2500, L500.4100, L100.0100 #### [facility] [address] [place], [address] Absolute Neut 13.0 X10 3/uL High 2.0-7.7 [facility] Comment on above: Performed By: #### L 500.2500, L500.4100, L100.0100 #### [facility] [address] [place], [address] Basophils/100 WBC (Bld) 0.1 % Normal 0-1 [facility] Comment on above: Performed By: #### L 500.2500, L500.4100, L100.0100 #### [facility] [address] [place], [address] Eosinophils/100 WBC (Bld) 0.0 % Normal 0-5 [facility] Comment on above: Performed By: #### L 500.2500, L500.4100, L100.0100 #### [facility] [address] [place], [address] Erythrocyte distribution width (RBC) [Ratio] 14.3 % Normal 11.6-14.6 [facility] Comment on above: Performed By: #### L 500.2500, L500.4100, L100.0100 #### [facility] [address] [place], [address] Hematocrit (Bld) [Volume fraction] 36.6 % Low 40-54 [facility] Comment on above: Performed By: #### L 500.2500, L500.4100, L100.0100 #### [facility] [address] [place], [address] Hemoglobin (Bld) [Mass/Vol] 12.3 g/dL Low 13.0-16.5 [facility] Comment on above: Performed By: #### L 500.2500, L500.4100, L100.0100 #### [facility] [address] [place], [address] IG% 0.500 Normal 0.0-0.9 [facility] Comment on above: Result Comment: IG% - Immature Granulocytes (promyelocytes, myelocytes and metamyelocytes) > 1% indicates that a LEFT SHIFT is Present. Performed By: #### L 500.2500, L500.4100, L100.0100 #### [facility] [address] [place], [address] Lymphocytes/100 WBC (Bld) 2.2 % Low 19-41 [facility] Comment on above: Performed By: #### L 500.2500, L500.4100, L100.0100 #### [facility] [address] [place], [address] MCH (RBC) [Entitic mass] 29.3 pg Normal 27.0-32.0 [facility] Comment on above: Performed By: #### L 500.2500, L500.4100, L100.0100 #### [facility] [address] [place], [address] MCHC (RBC) [Mass/Vol] 33.6 g/dL Normal 32-36 [facility] Comment on above: Performed By: #### L 500.2500, L500.4100, L100.0100 #### [facility] [address] [place], [address] MCV (RBC) [Entitic vol] 87.1 fL Normal 80-94 [facility] Comment on above: Performed By: #### L 500.2500, L500.4100, L100.0100 #### [facility] [address] [place], [address] Monocytes/100 WBC (Bld) 2.0 % Normal 0-10 [facility] Comment on above: Performed By: #### L 500.2500, L500.4100, L100.0100 #### [facility] [address] [place], [address] Neutrophils/100 WBC (Bld) 95.2 % High 47-70 [facility] Comment on above: Performed By: #### L 500.2500, L500.4100, L100.0100 #### [facility] [address] [place], [address] Nucleated RBC (Bld) [#/Vol] 0 10*3/uL Normal 0-5 [facility] Comment on above: Performed By: #### L 500.2500, L500.4100, L100.0100 #### [facility] [address] [place], [address] Platelet mean volume (Bld) [Entitic vol] 9.9 fL Normal 6.2-12.0 [facility] Comment on above: Performed By: #### L 500.2500, L500.4100, L100.0100 #### [facility] [address] [place], [address] Platelets (Bld) [#/Vol] 294 10*3/uL Normal 150-450 [facility] Comment on above: Performed By: #### L 500.2500, L500.4100, L100.0100 #### [facility] [address] [place], [address] RBC (Bld) [#/Vol] 4.20 10*6/uL Low 4.6-6.2 [facility] Comment on above: Performed By: #### L 500.2500, L500.4100, L100.0100 #### [facility] [address] [place], [address] RDW SD 45.8 fl High 35.1-43.9 [facility] Comment on above: Performed By: #### L 500.2500, L500.4100, L100.0100 #### [facility] [address] [place], [address] WBC (Bld) [#/Vol] 13.7 10*3/uL High 4.4-11.0 [facility] Comment on above: Performed By: #### L 500.2500, L500.4100, L100.0100 #### [facility] [address] [place], [address] Calculated very low density lipoprotein (VLDL) cholesterol measurementOrdered By: Anirudh Thompson on 12-02-2024 VLDL Cholesterol 7 mg/dL 5-40 [facility] Carbon dioxide, total [Moles /volume] in Central venous bloodOrdered By: Anirudh Thompson on 12-02-2024 CO2 [Moles/Vol] 26.1 mmol/L 21.0-32.0 [facility] Cardiovascular stress test r eportOrdered By: Eh Castellon on 12-02-2024 Study report [facility] [address] [place] [address] MR#: [id number] Acct: [id number] Name: BEATRIS QUINN Rep #: [id number] : 1950 73 From: Eh Castellon MD Primary Care: Michelle Ferraro, ADELSO-C Sta tus: ADM IN Referring Dr: Sex: M C Stress Test Report Pharmacologic myocardial perfusion stress test. 73-year-old male with a history of chest pain Resting EKG demonstrates sinus rhythm with a rate of 80 bpm. Resting blood pressure is 142/74 mmHg. 0.4 mg of regadenoson was infused per usual protocol followed by rapid intravenous saline flush injection. Continuous EKG monitoringwas performed. The maximum heart rate was 95 bpm which was 64% of max impacted heart rate the maximum workload was 1 metabolic equivalent. At rest there were no ST or T wave changes noted to suggest ischemia and at peak infusion nonspecific ST changes were noted which did not meet the criteria for ischemia. No clinical angina is noted. The final blood pressure was 128/72 mmHg. Myocardial perfusion protocol. 11.9 mCi of technetium 99m sestamibi was injected at rest. 0.4 mg of regadenoson was infused per usual protocol. At peak infusion 34.8 mCi of technetium 99m sestamibi was injected stress images were obtained stress and rest images were reconstructed and compared in the short axis vertical long and horizontal long axis. Gated images were also obtained. Perfusion SPECT analysis: Review of the stress images demonstrate normal uptake of tracer noted in all areas of the myocardium. 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 No reversibility is noted suggest ischemia. Gated SPECT analysis: The gated ejection fraction is 83%. Conclusion: Normal pharmacologic myocardial perfusion stress test. Preserved ejection fraction. Small anteroseptal infarct cannot be excluded 12/02/24 1512 Date _ Eh Castellon MD CC: SENIOR MOBILE DEVELOPER-C Michelle Ferraro; Dr. Anirudh Thompson, DO; Todd Valdovinos DO ~ Date Dictated: 12/02/241505 Date Transcribed: 12/02/241505 Seat Cover Cutter: CO Signed [facility] Work Phone: Chloride assayOrdered By: Yael Thompson on 12-02-2024 Chloride [Moles/Vol] 102 mmol/L 98-108 [facility] Eosinophil percentageOrdered By: Anirudh Thompson on 12-02-2024 Eosinophils/100 WBC (Bld) 0.0 % 0-5 [facility] Erythrocyte distribution wid th (RBC) [Ratio]Ordered By: Anirudh Thompson on 12-02-2024 Erythrocyte distribution width (RBC) [Entitic vol] 45.8 fL High 35.1-43.9 [facility] Erythrocyte distribution wid th ratioOrdered By: Anirudh Thompson on 12-02-2024 Erythrocyte distribution width (RBC) [Ratio] 14.3 % 11.6-14.6 [facility] Estimation of creatinine tiffany aranceOrdered By: Anirudh Thompson on 12-02-2024 Estimated Creatinine Clearance Calc 62.26 ml/min 50-250 [facility] GFR/1.73 sq M.predicted ruby g non-blacks MDRD (S/P/Bld) [Vol rate/Area]Ordered By: Anirudh Thompson on 12-02-2024 Estimated GFR (MDRD) Non-Af Amer 92 >60 [facility] Comment on above: mL/min/1.73m2 CKD-EP I Creatinine Equation (2020) Gram Stainon 12-02-2024 GS Not obtained in 1 hr , induce w/nebulized 0.9% NaCL Acceptable Specimen? Yes (<25 Epithelial cells per/lpf) Gram Stain 4+ Gram negative rods 2+ Gram positive cocci Rare Gram positive rods 2+ White Blood Cells 1+ Epithelial cells Normal [facility] Comment on above: Performed By: #### L 501.5200, L500.2500, L100.0100 #### [facility] [place], [address] Hematocrit Auto (Bld) [Volum e fraction]Ordered By: Anirudh Thompson on 12-02-2024 Hematocrit (Bld) [Volume fraction] 36.6 % Low 40-54 [facility] Hemoglobin measurementOrdere d By: Anirudh Thompson on 12-02-2024 Hemoglobin (Bld) [Mass/Vol] 12.3 g/dL Low 13.0-16.5 [facility] Immature granulocytes/100 WB C Auto (Bld)Ordered By: Anirudh Thompson on 12-02-2024 Immature granulocytes/100 WBC (Bld) 0.500 % 0.0-0.9 [facility] Comment on above: IG% - Immature Granu locytes (promyelocytes, myelocytes and metamyelocytes) > 1% indicates that a LEFT SHIFT is Present. L. pneumophila Ag Ql (U)Orde red By: Anirudh Thompson on 12-02-2024 Legionella Antigen [facility] LDL calc ser/plasOrdered By: Anirudh Thompson on 12-02-2024 LDL Cholesterol, Calculated 95 mg/dL [facility] Comment on above: Mofwkhvvdt=214-811 m g/dL & Higher Sbht=323 mg/dL or greater Legionella Antigen Urineon 0 12-02-2024 LEGU Comments: Only Recommended for severe cases of pneumonia Only Recommended for severe cases of pneumonia URINE, CLEAN CATCH Legionella Antigen result interpretation: L pneumo Ag Ur Ql Negative Presumptive negative for Legionella pneumophila serogroup 1 antigen in urine, suggesting no recent or current infection. Legionella Ag, Urine Negative (See interpretation below) * This is an amended result. * A prior result that was reported as final has been changed. 12/02/24 1326 by REGINALD Wang [facility] Comment on above: Performed By: #### L 501.5200, L500.2500, L100.0100 #### [facility] [address] [place], [address] Lipid Profileon 12-02-2024 CHOL:HDL 2.37 Normal [facility] Comment on above: Performed By: #### L 501.5200, L500.2500, L100.0100 #### [facility] [address] [place], [address] Cholesterol [Mass/Vol] 177 mg/dL Normal <=200 [facility] Comment on above: Result Comment: Chol esterol level, Desirable <200 mg/dL Borderline high cholesterol 200-239 mg/dL High cholesterol >=240 mg/dL Recommendations of the NCEP Adult Treatment Panel for the following risk-cutoff thresholds for the [place] population. Performed By: #### L 501.5200, L500.2500, L100.0100 #### [facility] [address] [place], [address] Cholesterol in HDL [Mass/Vol] 75 mg/dL Normal [facility] Comment on above: Result Comment: [place] Cholesterol Education Program (NCEP) guidelines: <40 mg/dL: Low HDL-cholesterol (major risk factor for CHD) >= 60 mg/dL: High HDL-cholesterol (negative risk factor for CHD) HDL-cholesterol is affected by a number of factors, e.g. smoking, exercise, hormones, sex and age. Performed By: #### L 501.5200, L500.2500, L100.0100 #### [facility] [address] [place], [address] Cholesterol in LDL [Mass/Vol] 95 mg/dL Normal [facility] Comment on above: Result Comment: Bord bjuffp=547-607 mg/dL Higher Rusu=911 mg/dL or greater Performed By: #### L 501.5200, L500.2500, L100.0100 #### [facility] [address] [place], [address] Cholesterol in VLDL [Mass/Vol] 7 mg/dL Normal 5-40 [facility] Comment on above: Performed By: #### L 501.5200, L500.2500, L100.0100 #### [facility] [address] [facility] [place], [address] Triglyceride [Mass/Vol] 36 mg/dL Normal [facility] Comment on above: Result Comment: The drugs N-Acetylcysteine and Metamizole may falsely depress this assay. Normal range: <150 mg/dL Borderline High: 150-199 mg/dL High: 200-499 mg/dL Very High: >500 mg/dL Performed By: #### L 501.5200, L500.2500, L100.0100 #### [facility] [address] [facility] [address] [place], [place], [id number] Lymphocytes Auto (Unsp spec) [#/Vol]Ordered By: Anirudh Thompson on 12-02-2024 Lymphocytes (Bld) [#/Vol] 0.30 10*3/uL Low 0.83-4.51 [facility] Lymphocytes/100 WBC Auto (Un sp spec)Ordered By: Anirudh Thompson on 12-02-2024 Lymphocytes/100 WBC (Bld) 2.2 % Low 19-41 [facility] MCV (mean corpuscular volume ) determinationOrdered By: Anirudh Thompson on 12-02-2024 MCV (RBC) [Entitic vol] 87.1 fL 80-94 [facility] Mean corpuscular hemoglobin (MCH) determinationOrdered By: Anirudh Thompson on 12-02-2024 MCH (RBC) [Entitic mass] 29.3 pg 27.0-32.0 [facility] Mean corpuscular hemoglobin concentration (MCHC) determinationOrdered By: Anirudh Thompson on 12-02-2024 MCHC (RBC) [Mass/Vol] 33.6 g/dL 32-36 [facility] Mean platelet volume determi nationOrdered By: Anirudh Thompson on 12-02-2024 Platelet mean volume (Bld) [Entitic vol] 9.9 fL 6.2-12.0 [facility] Monocyte percentageOrdered B y: Anirudh Thompson on 12-02-2024 Monocytes/100 WBC (Bld) 2.0 % 0-10 [facility] Neutrophil percentageOrdered By: Anirudh Thompson on 12-02-2024 Neutrophils/100 WBC (Bld) 95.2 % High 47-70 [facility] Nucleated red blood cell per centageOrdered By: Anirudh Thompson on 12-02-2024 Nucleated RBC/100 WBC (Bld) [Ratio] 0 % 0-5 [facility] Platelet countOrdered By: Yael Thompson on 12-02-2024 Platelets (Bld) [#/Vol] 294 10*3/uL 150-450 [facility] Potassium (Unsp spec) [Mass/ Vol]Ordered By: Anirudh Thompson on 12-02-2024 Potassium [Moles/Vol] 4.5 mmol/L 3.3-5.1 [facility] RBC Auto (Bld) [#/Vol]Ordere d By: Anirudh Thompson on 12-02-2024 RBC (Bld) [#/Vol] 4.20 10*6/uL Low 4.6-6.2 [facility] Screening total cholesterol/ high density lipoprotein (HDL) cholesterol ratioOrdered By: Anirudh Thompson on 12-02-2024 Cholesterol.total/Choles terol in HDL [Mass ratio] 2.37 {ratio} [facility] Serum creatinine measurement (mass/volume)Ordered By: Anirudh Thompson on 12-02-2024 Creatinine [Mass/Vol] 0.84 mg/dL 0.70-1.20 [facility] Serum glucose measurement (m ass/volume)Ordered By: Anirudh Thompson on 12-02-2024 Glucose [Mass/Vol] 174 mg/dL High 70-99 [facility] Serum or plasma calcium christiana urement (mass/volume)Ordered By: Anirudh Thompson on 12-02-2024 Calcium [Mass/Vol] 9.6 mg/dL 7.6-11.0 [facility] Serum or plasma cholesterol in HDL measurement (mass/volume)Ordered By: Anirudh Thompson on 12-02-2024 Cholesterol in HDL [Mass/Vol] 75 mg/dL >40 [facility] Comment on above: National Cholesterol Education Program (NCEP) guidelines:<40 mg/dL: Low HDL-cholesterol (major risk factor for CHD)>= 60 mg/dL: High HDL-cholesterol (negative risk factor for CHD)HDL-cholesterol is affected by a number of factors, e.g. smoking, exercise, hormones, sex and age. Serum or plasma cholesterol measurement (mass/volume)Ordered By: Anirudh Thompson on 12-02-2024 Cholesterol [Mass/Vol] 177 mg/dL <201 [facility] Comment on above: Cholesterol level, D esirable <200 mg/dLBorderline high cholesterol 200-239 mg/dLHigh cholesterol >=240 mg/dLRecommendations of the NCEP Adult Treatment Panel for the following risk-cutoff thresholds for the [place] population. Serum or plasma urea nitroge n measurement (mass/volume)Ordered By: Anirudh Thompson on 12-02-2024 Urea nitrogen [Mass/Vol] 21 mg/dL High 4-19 [facility] Sodium levelOrdered By: Anirudh Thompson on 12-02-2024 Sodium [Moles/Vol] 138 mmol/L 133-145 [facility] Strep pneumoniae Antig(UR,CS F)on 12-02-2024 STPAG Comments: Only Recommended for severe cases of pneumonia URINE INTERPRETATION Negative Urine Presumptive negative for pneumococcal pneumonia, suggesting no current or recent pneumococcal infection. Infection due to S pneumoniae cannot be ruled out since the antigen present in the sample may be below the detection limit of the test. Strep pneumo Test Negative URINE (See interpretation below) Normal [facility] Comment on above: Performed By: #### L 501.5200, L500.2500, L100.0100 #### [facility] [address] [facility] [address] [place], [place], [id number] Streptococcus pneumoniae ant igen assayOrdered By: Anirudh Thompson on 12-02-2024 Streptococcus pneumoniae Antigen (M [facility] Stress Reporton 12-02-2024 Stress Report [facility] [address] [place] [address] MR#: [id number] Acct: [id number] Name: BEATRIS QUINN Rep #: [id number] : 1950 73 From: Eh Castellon MD Primary Care: Michelle Ferraro, SENIOR MOBILE DEVELOPER-C Status: ADM IN Referring Dr: Sex: M C Stress Test Report Pharmacologic myocardial perfusion stress test. 73-year-old male with a history of chest pain Resting EKG demonstrates sinus rhythm with a rate of 80 bpm. Resting blood pressure is 142/74 mmHg. 0.4 mg of regadenoson was infused per usual protocol followed by rapid intravenous saline flush injection. Continuous EKG monitoring was performed. The maximum heart rate was 95 bpm which was 64% of max impacted heart rate the maximum workload was 1 metabolic equivalent. At rest there were no ST or T wave changes noted to suggest ischemia and at peak infusion nonspecific ST changes were noted which did not meet the criteria for ischemia. No clinical angina is noted. The final blood pressure was 128/72 mmHg. Myocardial perfusion protocol. 11.9 mCi of technetium 99m sestamibi was injected at rest. 0.4 mg of regadenoson was infused per usual protocol. At peak infusion 34.8 mCi of technetium 99m sestamibi was injected stress images were obtained stress and rest images were reconstructed and compared in the short axis vertical long and horizontal long axis. Gated images were also obtained. Perfusion SPECT analysis: Review of the stress images demonstrate normal uptake of tracer noted in all areas of the myocardium. 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 No reversibility is noted suggest ischemia. Gated SPECT analysis: The gated ejection fraction is 83%. Conclusion: Normal pharmacologic myocardial perfusion stress test. Preserved ejection fraction. Small anteroseptal infarct cannot be excluded 12/02/24 1512 Date Eh Castellon MD CC: SENIOR MOBILE DEVELOPER-C Michelle Ferraro; Dr. Anirudh Thompson DO; Todd Valdovinos DO Date Dictated: 12/02/24 1506 Date Transcribed: 12/02/241505 Seat Cover Cutter: CO Signed Normal [facility] Triglycerides measurementOrd ered By: Anirudh Thompson on 12-02-2024 Triglyceride [Mass/Vol] 36 mg/dL <199 [facility] Comment on above: The drugs N-Acetylcy steine and Metamizole may falsely depress this assay. Normal range: <150 mg/dLBorderline High: 150-199 mg/dLHigh: 200-499 mg/dLVery High: >500 mg/dL White blood cell (WBC) count Ordered By: Anirudh Thompson on 12-02-2024 WBC (Bld) [#/Vol] 13.7 10*3/uL High 4.4-11.0 [facility] 12 Lead EKGon 12-01-2024 12 Lead EKG [facility] Cardiovascular Services [address] [place] [address] 12 Lead EKG 12/02/24 0535 MR#: [id number] Acct: [id number] Name: BEATRIS QUINN Rep #: [id number] : 1950 73 From: Eh Castellon MD Attending Dr: Dr. Anirudh Thompson DO Status: DIS IN Ordering Dr: Anirudh Thompson DO Date: 12/01/24 Location: [facility] Sex: M C Admitted: 12/01/24 Test Reason : AM EKG Blood Pressure : */* mmHG Vent. Rate : 74 BPM Atrial Rate : 74 BPM P-R Int : 166 ms QRS Dur : 84 ms QT Int : 376 ms P-R-T Axes : 81 73 78 degrees QTcB Int : 417 ms Normal sinus rhythm with sinus arrhythmia Normal ECG When compared with ECG of 01-Dec-2024 11:17, MANUAL COMPARISON REQUIRED DATA IS UNCONFIRMED Confirmed by EH CASTELLON MD ([id number]), slot editor MICHLELE ROMERO ([id number]) on 12/03/2024 8:44:29 AM Referred By: Confirmed By: EH CASTELLON MD 12/03/24 0844 Date Eh Castellon MD CC: VIVEK Ferraro; Dr. Anirudh Thompson DO Signed Normal [facility] Absolute neutrophil countOrd ered By: Todd Valdovinos on 12-01-2024 Neutrophils (Bld) [#/Vol] 12.1 10*3/uL High 2.0-7.7 [facility] Anion gap in Serum or Plasma Ordered By: Todd Valdovinos on 12-01-2024 Anion gap [Moles/Vol] 12 mmol/L - [facility] BUN/creatinine ratioOrdered By: Todd Valdovinos on 12-01-2024 Urea nitrogen/Creatinine [Mass ratio] 18.4 mg/mg - [facility] Basic Metabolic Profile (BMP )on 12-01-2024 BUN/CRE 18.4 RATIO Normal - [facility] Comment on above: Performed By: #### L 501.5200, L500.2500, L100.0100 #### [facility] [address] [place], [address] Calcium [Mass/Vol] 9.4 mg/dL Normal 7.6-11.0 [facility] Comment on above: Performed By: #### L 501.5200, L500.2500, L100.0100 #### [facility] [address] [place], [address] Chloride [Moles/Vol] 100 mmol/L Normal 98-108 [facility] Comment on above: Performed By: #### L 501.5200, L500.2500, L100.0100 #### [facility] [address] [place], [address] CO2 [Moles/Vol] 26.8 mmol/L Normal 21.0-32.0 [facility] Comment on above: Performed By: #### L 501.5200, L500.2500, L100.0100 #### [facility] [address] [place], [address] Creatinine [Mass/Vol] 0.93 mg/dL Normal 0.70-1.20 [facility] Comment on above: Performed By: #### L 501.5200, L500.2500, L100.0100 #### [facility] [address] [place], [address] ECRCL 57.13 ml/min Normal 50-250 [facility] Comment on above: Performed By: #### L 501.5200, L500.2500, L100.0100 #### [facility] [address] [place], [address] GAP 12 Normal 5-15 [facility] Comment on above: Performed By: #### L 501.5200, L500.2500, L100.0100 #### [facility] [address] [place], [address] GFR/1.73 sq M.predicted among non-blacks MDRD (S/P/Bld) [Vol rate/Area] 87 mL/min/{1.73_m2} Normal >60 [facility] Comment on above: Result Comment: mL/m in/1.73m2 CKD-EPI Creatinine Equation (2020) Performed By: #### L 501.5200, L500.2500, L100.0100 #### [facility] [address] [place], [address] Glucose [Mass/Vol] 229 mg/dL High 70-99 [facility] Comment on above: Performed By: #### L 501.5200, L500.2500, L100.0100 #### [facility] [address] [place], [address] Potassium [Moles/Vol] 4.2 mmol/L Normal 3.3-5.1 [facility] Comment on above: Performed By: #### L 501.5200, L500.2500, L100.0100 #### [facility] [address] [place], [address] Sodium [Moles/Vol] 139 mmol/L Normal 133-145 [facility] Comment on above: Performed By: #### L 501.5200, L500.2500, L100.0100 #### [facility] [address] [place], [address] Urea nitrogen [Mass/Vol] 17 mg/dL Normal 4-19 [facility] Comment on above: Performed By: #### L 501.5200, L500.2500, L100.0100 #### [facility] [address] [place], [address] Basophil percentageOrdered B y: Todd Valdovinos on 12-01-2024 Basophils/100 WBC (Bld) 0.2 % 0-1 [facility] CBC W/Diff, Automatedon Absolute Lymph 0.40 X10 3/uL Low 0.83-4.51 [facility] Comment on above: Performed By: #### L 501.5200, L500.2500, L100.0100 #### [facility] [address], [address] Absolute Neut 12.1 X10 3/uL High 2.0-7.7 [facility] Comment on above: Performed By: #### L 501.5200, L500.2500, L100.0100 #### [facility] [address] [place], [address] Basophils/100 WBC (Bld) 0.2 % Normal 0-1 [facility] Comment on above: Performed By: #### L 501.5200, L500.2500, L100.0100 #### [facility] [address] [place], [address] Eosinophils/100 WBC (Bld) 0.0 % Normal 0-5 [facility] Comment on above: Performed By: #### L 501.5200, L500.2500, L100.0100 #### [facility] [address] [place], [address] Erythrocyte distribution width (RBC) [Ratio] 14.1 % Normal 11.6-14.6 [facility] Comment on above: Performed By: #### L 501.5200, L500.2500, L100.0100 #### [facility] [address] [place], [address] Hematocrit (Bld) [Volume fraction] 41.4 % Normal 40-54 [facility] Comment on above: Performed By: #### L 501.5200, L500.2500, L100.0100 #### [facility] [address] [place], [address] Hemoglobin (Bld) [Mass/Vol] 13.7 g/dL Normal 13.0-16.5 [facility] Comment on above: Performed By: #### L 501.5200, L500.2500, L100.0100 #### [facility] [address] [place], [address] IG% 0.600 Normal 0.0-0.9 [facility] Comment on above: Result Comment: IG% - Immature Granulocytes (promyelocytes, myelocytes and metamyelocytes) > 1% indicates that a LEFT SHIFT is Present. Performed By: #### L 501.5200, L500.2500, L100.0100 #### [facility] [address] [place], [address] Lymphocytes/100 WBC (Bld) 3.0 % Low 19-41 [facility] Comment on above: Performed By: #### L 501.5200, L500.2500, L100.0100 #### [facility] [address] [place], [address] MCH (RBC) [Entitic mass] 28.9 pg Normal 27.0-32.0 [facility] Comment on above: Performed By: #### L 501.5200, L500.2500, L100.0100 #### [facility] [address] [place], [address] MCHC (RBC) [Mass/Vol] 33.1 g/dL Normal 32-36 [facility] Comment on above: Performed By: #### L 501.5200, L500.2500, L100.0100 #### [facility] [address] [place], [address] MCV (RBC) [Entitic vol] 87.3 fL Normal 80-94 [facility] Comment on above: Performed By: #### L 501.5200, L500.2500, L100.0100 #### [facility] [address] [place], [address] Monocytes/100 WBC (Bld) 5.1 % Normal 0-10 [facility] Comment on above: Performed By: #### L 501.5200, L500.2500, L100.0100 #### [facility] [address] [place], [address] Neutrophils/100 WBC (Bld) 91.1 % High 47-70 [facility] Comment on above: Performed By: #### L 501.5200, L500.2500, L100.0100 #### [facility] [address] [place], [address] Nucleated RBC (Bld) [#/Vol] 0 10*3/uL Normal 0-5 [facility] Comment on above: Performed By: #### L 501.5200, L500.2500, L100.0100 #### [facility] [address] [place], [address] Platelet mean volume (Bld) [Entitic vol] 9.3 fL Normal 6.2-12.0 [facility] Comment on above: Performed By: #### L 501.5200, L500.2500, L100.0100 #### [facility] [address] [place], [address] Platelets (Bld) [#/Vol] 313 10*3/uL Normal 150-450 [facility] Comment on above: Performed By: #### L 501.5200, L500.2500, L100.0100 #### [facility] [address] [place], [address] RBC (Bld) [#/Vol] 4.74 10*6/uL Normal 4.6-6.2 [facility] Comment on above: Performed By: #### L 501.5200, L500.2500, L100.0100 #### [facility] [address] [place] [place], [address] RDW SD 45.2 fl High 35.1-43.9 [facility] Comment on above: Performed By: #### L 501.5200, L500.2500, L100.0100 #### [facility] [address] [place], [address] WBC (Bld) [#/Vol] 13.3 10*3/uL High 4.4-11.0 [facility] Comment on above: Performed By: #### L 501.5200, L500.2500, L100.0100 #### [facility] [address] [place], [address] Carbon dioxide, total [Moles /volume] in Central venous bloodOrdered By: Todd Valdovinos on 12-01-2024 CO2 [Moles/Vol] 26.8 mmol/L 21.0-32.0 [facility] Chest PA and Lateralon 12-01 Chest PA and Lateral [facility] [address] [place] [address] Chest PA and Lateral MR#: [id number] Acct: [id number] Name: BEATRIS QUINN Rep #: [id number] : 1950 M 73 From: Sahara Brooks i, MD PCP: Dr. Jr Ryan, DO Status: REG ER Study: Chest PA and Lateral Date of Exam: 12/01/24 Exam# [id number] Ordering Dr: Todd Valdovinos DO PROCEDURE: CHEST PA AND LATERAL 12/01/2024 REASON FOR EXAM: COUGH TECHNIQUE: Frontal and lateral views of the chest. COMPARISON: None. FINDINGS: The lungs are hyperlucent and hyperexpanded due to COPD type changes. There are patchy infiltrates seen within the right lower lung zone and left midlung zone. This may represent areas of focal scarring versus infectious process. Follow-up until resolution is recommended. No pneumothorax identified. No acutely displaced rib fracture identified. RAD/Chest PA and Lateral IMPRESSION: Findings consistent with pulmonary emphysema/COPD. Patchy infiltrates at the right lower and left mid lung zones may represent confluent areas of scarring versus infectious process. Recommend follow-up until resolution. Reading Location: [facility] CC: Dr. Jr Ryan DO; Todd Valdovinos DO Seat Cover Cutter: Signed Normal [facility] Chloride assayOrdered By: Aziza Valdovinos on 12-01-2024 Chloride [Moles/Vol] 100 mmol/L 98-108 [facility] Emergency Department Summary on 12-01-2024 Emergency Department Summary [facility] Medical Records Department [address] [place] [address] Emergency Department Summary 12/01/24 MR#: [id number] Acct: [id number] Name: BEATRIS QUINN Rep #: [id number] : 1950 73 From: Todd Valdovinos DO PCP: Dr. Jr Ryan DO Status:REG ER Location: ED HPI History of Present Illness Chief Complaint: Shortness of Breath Informant: patient and spouse/S.O. Narrative Narrative: Patient is a 73-year-old male with history of hypertension and COPD. He states that he quit smoking roughly 20 years ago. He reports he has a oxygen concentrator at home but does not need to wear this as his pulse ox is typically mid 90s on room air. However in the last 1 to 2 days he has been having increased cough and shortness of breath. He states that it is worse with exertion. He denies any fevers or known sick contacts but with his shortness of breath persisting he has concern for potential infection and therefore comes in for evaluation. Patient does state the last time he felt this way he needed admitted secondary to pneumonia and influenza which was roughly 1 year ago [facility] Medical History Aortic stenosis Elevated coronary artery calcium score Urinary retention Heart murmur Anxiety On home oxygen therapy Acute hypoxemic respiratory failure Pneumonia COPD (chronic obstructive pulmonary disease) [place] (hard of hearing) Hypertension Home Medications ???Medication ???Instructions ???Recorded ???Last Taken ???Type amlodipine 5 mg tablet 5 mg PO DAILY blood pressure 03/0603/02/24 History albuterol sulfate 2.5 mg/3 mL 2.5 mg (3 mL) inhalation Q4H PRN 0 12/11/23 Unknown Rx (0.083 %) solution for nebulization #25 vials garlic 1,000 mg capsule 1,000 mg PO DAILY general health 0 12/17/23 Unknown History vitamin E 268 mg (400 unit) capsule 268 mg PO DAILY general health 12/17/23 Unknown History alprazolam 0.25 mg tablet (Xanax) 0.375 mg PO QHS anxiety 02/28/24 Unknown History fluticasone fur. 100 mcg-umeclid 1 inh inhalation DAILY 02/28/24 Un known History 62.5 mcg-vilant 25 mcg inhalat.powder (Trelegy Ellipta) prednisone 20 mg tablet 40 mg PO DAILY PRN sob 03/02/24 History albuterol sulfate 90 mcg/actuation 1 inh inhalation Q6H PRN shortne ss 12/01/24 Unknown History aerosol inhaler of breath or wheezing Allergy/AdvReac Type Severity Reaction Status Date / Time No Known Allergies Allergy Verified 12/01/24 06:21 Surgical History Hx of hernia repair History of replacement of both shoulder joints Social History Smoking Status: Former smoker ROS ROS ED Constitutional Constitutional ED: Denies chills or fever(s) Eyes Eyes: Denies blurry vision or change in vision ENT ENT ED: Denies rhinorrhea or sore throat Cardiovascular Cardiovascular: Denies chest pain Respiratory/Chest Respiratory/Chest: Reports cough, dyspnea and dyspnea on exertion Gastrointestinal Gastrointestinal: Denies abdominal pain, diarrhea, nausea or vomiting Genitourinary Genitourinary ED: Denies dysuria Musculoskeletal Musculoskeletal: Denies back pain or myalgias Integumentary Denies rash Neurologic Neurologic: Denies headache(s) Hematologic/Lymphatic Hematologic/Lymphatic: Denies easy bleeding or easy bruising Allergic/Immunologic Allergic/Immunologic ED: Denies mouth swelling or tongue swelling EXAM Physical Exam Const Vital Signs: 12/01/24 06:21 12/01/24 06:26 12/01/24 06:27 Temperature 97.8 F 97.8 F Temperature Source Oral Oral Pulse Rate 89 83 83 Respiratory Rate 22 H 27 H Respiratory Effort Respiratory Pattern Blood Pressure 192/91 H 192/91 H Blood Pressure Mean 124 124 Pulse Ox 78 98 97 Oxygen Delivery Method Room Air Nasal Cannula Nasal Cannula Oxygen Flow Rate (L/min) 2 2 12/01/24 06:32 12/01/24 06:59 12/01/24 06:59 Temperature Temperature Source Pulse Rate 75 Respiratory Rate 20 H Respiratory Effort Short of Breath Respiratory Pattern Tachypnea Normal Blood Pressure Blood Pressure Mean Pulse Ox 98 Oxygen Delivery Method Nasal Cannula Nasal Cannula Oxygen Flow Rate (L/min) 2 2 12/01/24 07:11 Temperature Temperature Source Pulse Rate Respiratory Rate Respiratory Effort Respiratory Pattern Blood Pressure Blood Pressure Mean Pulse Ox 99 Oxygen Delivery Method Room Air Oxygen Flow Rate (L/min) Positive well nourished and well developed General Appearance ED: well developed; Negative for pallor HEENT HEENT Narrative: No tongue or lip swelling no oral lesions no airway edema or compromise (more content not included)... Normal [facility] Eosinophil percentageOrdered By: Todd Valdovinos on 12-01-2024 Eosinophils/100 WBC (Bld) 0.0 % 0-5 [facility] Erythrocyte distribution wid th (RBC) [Ratio]Ordered By: Todd Valdovinos on 12-01-2024 Erythrocyte distribution width (RBC) [Entitic vol] 45.2 fL High 35.1-43.9 [facility] Erythrocyte distribution wid th ratioOrdered By: Todd Valdovinos on 12-01-2024 Erythrocyte distribution width (RBC) [Ratio] 14.1 % 11.6-14.6 [facility] Estimation of creatinine tiffany aranceOrdered By: Todd Valdovinos on 12-01-2024 Estimated Creatinine Clearance Calc 57.13 ml/min 50-250 [facility] GFR/1.73 sq M.predicted ruby g non-blacks MDRD (S/P/Bld) [Vol rate/Area]Ordered By: Todd Valdovinos on 12-01-2024 Estimated GFR (MDRD) Non-Af Amer 87 >60 [facility] Comment on above: mL/min/1.73m2 CKD-EP I Creatinine Equation (2020) Gram stainOrdered By: Anirudh drake on 12-01-2024 Microscopic observation Gram stain Nom (Unsp spec) [facility] H AND P Exam - Hospitaliston 12-01-2024 H&P Exam - Hospitalist [facility] Medical Records Department [address] [place] [address] H P Exam - Hospitalist 12/01/24 0831 MR#: [id number] Acct: [id number] Name: BEATRIS QUINN Rep #: [id number] : 1950 73 From: Anirudh Thompson DO PCP: Dr. Jr Ryan, Status:REG ER Location: ED HPI - General General Date of Service: 12/01/24 Chief Complaint: shortness of breath. HPI Narrative BEATRIS QUINN, is a 73 M who presents w 1-2 days of SBO and cough. Productive sputum. presented to ED w pulse of 89% on room air. CXR showed pneumonia. He received BDs, methylpred and abx w CTX and azithromycin. Similar to prior episodes of COPD exacerbation. Also, he has been experiencing exertional left-sided chest pain since August, that gets better with rest. CP does not radiate. [facility] Medical History Aortic stenosis Elevated coronary artery calcium score Urinary retention Heart murmur Anxiety On home oxygen therapy Acute hypoxemic respiratory failure Pneumonia COPD (chronic obstructive pulmonary disease) [place] (hard of hearing) Hypertension Home Medications ???Medication ???Instructions ???Recorded ???Last Taken ???Type amlodipine 5 mg tablet 5 mg PO DAILY blood pressure 03/0603/02/24 History albuterol sulfate 2.5 mg/3 mL 2.5 mg (3 mL) inhalation Q4H PRN 0 12/11/23 Unknown Rx (0.083 %) solution for nebulization #25 vials garlic 1,000 mg capsule 1,000 mg PO DAILY general health 0 12/17/23 Unknown History vitamin E 268 mg (400 unit) capsule 268 mg PO DAILY general health 12/17/23 Unknown History alprazolam 0.25 mg tablet (Xanax) 0.375 mg PO QHS anxiety 02/28/24 Unknown History fluticasone fur. 100 mcg-umeclid 1 inh inhalation DAILY 02/28/24 Un known History 62.5 mcg-vilant 25 mcg inhalat.powder (Trelegy Ellipta) prednisone 20 mg tablet 40 mg PO DAILY PRN sob 03/02/24 History albuterol sulfate 90 mcg/actuation 1 inh inhalation Q6H PRN shortne ss 12/01/24 Unknown History aerosol inhaler of breath or wheezing Allergy/AdvReac Type Severity Reaction Status Date / Time No Known Allergies Allergy Verified 12/01/24 06:21 Surgical History Hx of hernia repair History of replacement of both shoulder joints Social History Smoking Status: Former smoker ROS ROS Narrative All review of systems were negative except as mentioned above in the history of present illness and the other review of systems. Vital Signs Vital Signs Vital Signs: 12/01/24 06:21 12/01/24 06:26 12/01/24 06:27 Temperature 36.6 C 36.6 C Temperature Source Oral Oral Pulse Rate 89 83 83 Respiratory Rate 22 H 27 H Respiratory Effort Respiratory Pattern Blood Pressure 192/91 H 192/91 H Blood Pressure Mean 124 124 Pulse Ox 78 98 97 Oxygen Delivery Method Room Air Nasal Cannula Nasal Cannula Oxygen Flow Rate (L/min) 2 2 12/01/24 06:32 12/01/24 06:59 12/01/24 06:59 Temperature Temperature Source Pulse Rate 75 Respiratory Rate 20 H Respiratory Effort Short of Breath Respiratory Pattern Tachypnea Normal Blood Pressure Blood Pressure Mean Pulse Ox 98 Oxygen Delivery Method Nasal Cannula Nasal Cannula Oxygen Flow Rate (L/min) 2 2 12/01/24 07:11 12/01/24 07:20 12/01/24 08:00 Temperature 37.2 C 37.2 C Temperature Source Oral Oral Pulse Rate 87 82 Respiratory Rate 19 H 16 Respiratory Effort Respiratory Pattern Blood Pressure 147/84 H 123/82 H Blood Pressure Mean 105 95 Pulse Ox 99 95 96 Oxygen Delivery Method Room Air Nasal Cannula Nasal Cannula Oxygen Flow Rate (L/min) 1 1 Weight Weight: 57.1 kg Body Mass Index (BMI) 20.2 Physical Exam Narrative - Physical Exam General: Alert, Oriented x3, Cooperative HEENT: Atraumatic, Normocephalic Oral: Moist Mucosa, No Gingival or Mucosal Lesions/ Ulcerations Neck: Supple, No JVD, Negative Carotid Bruits Lungs: Diminished breath coarse sounds bilaterally Cardiovascular: Regular rate, Normal S1, Normal S2, No murmurs Abdomen: Bowel Sounds Present, Soft, Non Tender, Non-Distended, No Hepato-splenomegaly Extremities: No clubbing, No cyanosis, No edema, Capillary Refill Less than 3 Seconds Skin: No rashes, No breakdown Musculoskeletal: No Tenderness to Palpation of Joints or Extremities. No reproducible anterior chest wall tenderness. Neurological: Neuro grossly intact Psych/Mental Status: Normal Affect, Appropriate Results Lab / Micro Data Attestation: I reviewed the patient's lab results. 12/01/24 06:35 12/01/24 06:35 Labs: Laboratory Results - last 24 hr 12/01/24 06:35: WBC 13.3 H, RBC 4.74, Hgb (more content not included)... Normal [facility] Hematocrit Auto (Bld) [Volum e fraction]Ordered By: Todd Valdovinos on 12-01-2024 Hematocrit (Bld) [Volume fraction] 41.4 % 40-54 [facility] Hemoglobin measurementOrdere d By: Todd Valdovinos on 12-01-2024 Hemoglobin (Bld) [Mass/Vol] 13.7 g/dL 13.0-16.5 [facility] Immature granulocytes/100 WB C Auto (Bld)Ordered By: Todd Valdovinos on 12-01-2024 Immature granulocytes/100 WBC (Bld) 0.600 % 0.0-0.9 [facility] Comment on above: IG% - Immature Granu locytes (promyelocytes, myelocytes and metamyelocytes) > 1% indicates that a LEFT SHIFT is Present. Influenza virus A and B and SARS-CoV-2 (COVID-19) and Respiratory syncytial virus RNAOrdered By: Todd Valdovinos on 12-01-2024 SARS-CoV-2 (COVID-19) RNA JELENA+probe Ql (Unsp spec) [facility] L499.0042on 12-01-2024 Trop T High Sen 16 ng/L Normal <=22 [facility] Comment on above: Performed By: #### L 501.5200, L500.2500, L100.0100 #### [facility] [address] [place], [address] L499.0043on 12-01-2024 Trop T High Sen 20 ng/L Normal <=22 [facility] Comment on above: Performed By: #### L 499.0043 #### [facility] [address] [place], [address] L501.4021on 12-01-2024 Trop T High Sen 17 ng/L Normal <=22 [facility] Comment on above: Performed By: #### L 501.5200, L500.2500, L100.0100 #### [facility] [address] [place], [address] Lymphocytes Auto (Unsp spec) [#/Vol]Ordered By: Todd Valdovinos on 12-01-2024 Lymphocytes (Bld) [#/Vol] 0.40 10*3/uL Low 0.83-4.51 [facility] Lymphocytes/100 WBC Auto (Un sp spec)Ordered By: Todd Valdovinos on 12-01-2024 Lymphocytes/100 WBC (Bld) 3.0 % Low 19-41 [facility] M100.678on 12-01-2024 M100.678 SARS-CoV-2 (COVID 19 ) Negative INFLUENZA A Negative INFLUENZA B Negative RSV PCR Negative Normal [facility] Comment on above: Performed By: #### L 501.5200, L500.2500, L100.0100 #### [facility] [address] [place], [address] MCV (mean corpuscular volume ) determinationOrdered By: Todd Valdovinos on 12-01-2024 MCV (RBC) [Entitic vol] 87.3 fL 80-94 [facility] Magnesiumon 12-01-2024 Magnesium [Mass/Vol] 2.0 mg/dL Normal 1.5-2.2 [facility] Comment on above: Performed By: #### L 501.5200, L500.2500, L100.0100 #### [facility] [address] [place], [address] Magnesium (Unsp spec) [Mass/ Vol]Ordered By: Todd Valdovinos on 12-01-2024 Magnesium [Mass/Vol] 2.0 mg/dL 1.5-2.2 [facility] Mean corpuscular hemoglobin (MCH) determinationOrdered By: Todd Valdovinos on 12-01-2024 MCH (RBC) [Entitic mass] 28.9 pg 27.0-32.0 [facility] Mean corpuscular hemoglobin concentration (MCHC) determinationOrdered By: Todd Valdovinos on 12-01-2024 MCHC (RBC) [Mass/Vol] 33.1 g/dL 32-36 [facility] Mean platelet volume determi nationOrdered By: Todd Valdovinos on 12-01-2024 Platelet mean volume (Bld) [Entitic vol] 9.3 fL 6.2-12.0 [facility] Monocyte percentageOrdered B y: Todd Valdovinos on 12-01-2024 Monocytes/100 WBC (Bld) 5.1 % 0-10 [facility] Neutrophil percentageOrdered By: Todd Valdovinos on 12-01-2024 Neutrophils/100 WBC (Bld) 91.1 % High 47-70 [facility] Nucleated red blood cell per centageOrdered By: Todd Valdovinos on 12-01-2024 Nucleated RBC/100 WBC (Bld) [Ratio] 0 % 0-5 [facility] Platelet countOrdered By: Aziza Valdovinos on 12-01-2024 Platelets (Bld) [#/Vol] 313 10*3/uL 150-450 [facility] Potassium (Unsp spec) [Mass/ Vol]Ordered By: Todd Valdovinos on 12-01-2024 Potassium [Moles/Vol] 4.2 mmol/L 3.3-5.1 [facility] RBC Auto (Bld) [#/Vol]Ordere d By: Todd Valdovinos on 12-01-2024 RBC (Bld) [#/Vol] 4.74 10*6/uL 4.6-6.2 [facility] Serum creatinine measurement (mass/volume)Ordered By: Todd Valdovinos on 12-01-2024 Creatinine [Mass/Vol] 0.93 mg/dL 0.70-1.20 [facility] Serum glucose measurement (m ass/volume)Ordered By: Todd Valdovinos on 12-01-2024 Glucose [Mass/Vol] 229 mg/dL High 70-99 [facility] Serum or plasma calcium christiana urement (mass/volume)Ordered By: Todd Valdovinos on 12-01-2024 Calcium [Mass/Vol] 9.4 mg/dL 7.6-11.0 [facility] Serum or plasma urea nitroge n measurement (mass/volume)Ordered By: Todd Valdovinos on 12-01-2024 Urea nitrogen [Mass/Vol] 17 mg/dL 4-19 [facility] Sodium levelOrdered By: Joseph Valdovinos on 12-01-2024 Sodium [Moles/Vol] 139 mmol/L 133-145 [facility] Troponin T.cardiac High sens itivity method [Mass/Vol]Ordered By: Anirudh Thompson on 12-01-2024 Troponin T High Sensitivity 4 Hour 20 ng/L <22 [facility] Troponin T High Sensitivity 2 Hour 16 ng/L <22 [facility] Troponin T High Sensitivity 17 ng/L <22 [facility] White blood cell (WBC) count Ordered By: Todd Valdovinos on 12-01-2024 WBC (Bld) [#/Vol] 13.3 10*3/uL High 4.4-11.0 [facility] CNPNon 10-26-2024 CNPN Telephone (PULMMN) BEATRIS QUINN ([id number]) 1950 M Date Time Provider Department 10/26/24 TIGRE RESTREPO During your visit today, we recorded the following information about you: Candelaria Singh 10/26/2024 4:26 PM Signed Patient's called pulmonary asking for assistance in delivering a message to Dr. Restrepo's office since they have been unable to contact and speak with the office. Per caller: Patient is not interested in following up with infectious disease. Patient can be reached by calling [phone]. Tigre Restrepo MD 10/27/2024 11:03 AM Signed Pateint does not want to follow with infectious disease Allergies As of Date: 10/26/2024 Noted Allergy Reaction LISINOPRIL 07/01/2007 3 - Cough MAXZIDE (TRIAMTERENE-HYDROCHLO ROT*11/11/2006 5 - Intolerance Comments: leg cramp, sex desire decrease NAPROXEN 09/11/2016 8 - GI Upset Date Reviewed: 10/16/2024 Reviewed by: Trixie Dale MA - Fully Assessed Reason for Visit: LMTCB [1226] Patient Request [[id number]] Cmt: Message regarding ID Prescriptions as of 10/27/2024 - OTC NUTRITIONAL SUPPLEMENT Factor 5 for joints - ALPRAZolam (XANAX) 0.25 mg tablet Take by mouth at bedtime as needed. - voriconazole (VFEND) 200 mg tablet Take 1 tablet by mouth two times a day. - fluticasone-umeclidin- vilanter (TRELEGY ELLIPTA) 100-62.5-25 mcg inhalation powder Inhale 1 Puff as instructed once daily. - MAGNESIUM ORAL Take by mouth. - VITAMIN E ORAL Take by mouth. - predniSONE EC 5 mg Delayed Release Tab Take 5 mg by mouth. taking 1/2 tablet daily - GARLIC ORAL Take by mouth. - albuterol HFA (PROAIR HFA) 90 mcg/actuation inhaler 2 puff(s), Inhalation, q4h, PRN as needed for wheezing - amLODIPine (NORVASC) 5 mg tablet Take 1 tablet by mouth once daily. - omeprazole (PRILOSEC) 20 mg capsule Take 1 capsule by mouth daily before breakfast. 1/2 hr before meal. - Herbal Drugs cap Take 1 capsule by mouth once daily. - gabapentin (NEURONTIN) 100 mg capsule Take 1 capsule by mouth three times daily for 30 days. - fluticasone-vilanterol (BREO ELLIPTA) 200-25 mcg/dose inhaler Inhale 1 Inhalation as instructed once daily. Pt states only using 125mcg now Problem List As Of Date 10/26/2024 Noted Resolved ASTHMA UNSPECIFIED [J45.909] 11/28/2005 10/02/2015 Swelling, mass, or lump in chest [R22.2] 03/04/2006 09/11/2016 Phlebitis and thrombophlebitis of unspecified s*09/03/2006 09/11/2016 Essential hypertension [I10] 10/17/2006 HYPERLIPIDEMIA NEC/NOS [E78.5] 10/17/2006 Chest pain [R07.9] 04/24/2010 09/11/2016 Asthma [J45.909] 04/24/2010 Allergy to environmental factors [Z91.09] 04/15/2011 Left rotator cuff tear [M75.102] 07/13/2012 09/11/2016 Arthritis of left shoulder region [M19.012] 09/11/2016 Arthritis of right shoulder region [M19.011] 09/11/2016 Mass of finger [R22.30] 10/02/2016 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 She recommended to start the medication I gave him (voriconazole) but if the patinet would like to hold off, that should be ok and we can see if the ct chest shows any worsening. She recommended to have an ID consultation once the next ct chest is done in 6 months Thank you Janie Baxter RN 10/20/2024 3:13 PM Signed Left a message for patient that he will get a CB at 4:10 today. Janie Baxter RN 10/20/2024 4:16 PM Signed Unable to reach patient, will try another day. Janie Baxter RN 10/22/2024 2:19 PM Signed Advised will get a CB between 4-4:15 Janie Baxter RN 10/22/2024 4:12 PM Signed Unable to reach patient. Janie Baxter RN 10/26/2024 10:37 AM Signed Advised patient he will get a CB today at 4:15 to give him the message as he requested. Janie Baxter RN 10/26/2024 4:36 PM Addendum Unable to reach patient. Message from 10/26 states advised the office he is not interested in seeing ID. did not get message below, please give patient/ message if able. Kacey Che LPN 10/29/2024 2:50 PM Signed Tigre Restrepo MD Workman, Tara, LPN; Glendy Dial, EM5 minutes ago (2:44 PM) No need to keep calling - thanks for trying Sandra Shelton LPN Kimbrough, Kelli, RN; Tigre Restrepo MD23 hours ago (2:54 PM) SAAD Lima has tried 6 times in the last 9 days to reach patient - unsure how many times we should keep trying? Maybe send a letter? Glendy Dial, EM [facility] Clinical (2:29 PM) KK Please try to reach patient/ Allergies As of Date: 10/19/2024 Noted Allergy Reaction LISINOPRIL 07/01/2007 3 - Cough MAXZIDE (TRIAMTERENE-HYDROCHLO ROT*11/11/2006 5 - Intolerance Comments: leg cramp, sex desire decrease NAPROXEN 09/11/2016 8 - GI Upset Date Reviewed: 10/16/2024 Reviewed by: Trixie Dale MA - Fully Assessed Prescriptions as of 10/29/2024 - OTC NUTRITIONAL SUPPLEMENT Factor 5 for joints - ALPRAZolam (XANAX) 0.25 mg tablet Take by mouth at bedtime as needed. - voriconazole (VFEND) 200 mg tablet Take 1 tablet by mouth two times a day. - fluticasone-umeclidin- vilanter (TRELEGY ELLIPTA) 100-62.5-25 mcg inhalation powder Inhale 1 Puff as instructed once daily. - MAGNESIUM ORAL Take by mouth. - VITAMIN E ORAL Take by mouth. - predniSONE EC 5 mg Delayed Release Tab Take 5 mg by mouth. taking 1/2 tablet daily - GARLIC ORAL Take by mouth. - albuterol HFA (PROAIR HFA) 90 mcg/actuation inhaler 2 puff(s), Inhalation, q4h, PRN as needed for wheezing - amLODIPine (NORVASC) 5 mg tablet Take 1 tablet by mouth once daily. - omeprazole (PRILOSEC) 20 mg capsule Take 1 capsule by mouth daily before breakfast. 1/2 hr before meal. - Herbal Drugs cap Take 1 capsule by mouth once daily. - gabapentin (NEURONTIN) 100 mg capsule Take 1 capsule by mouth three times daily for 30 days. - fluticasone-vilanterol (BREO ELLIPTA) 200-25 mcg/dose inhaler Inhale 1 Inhalation as instructed once daily. Pt states only using 125mcg now Problem List As Of Date 10/19/2024 Noted Resolved ASTHMA UNSPECIFIED [J45.909] 11/28/2005 10/02/2015 Swelling, mass, or lump in chest [R22.2] 03/04/2006 09/11/2016 Phlebitis and thrombophlebitis of unspecified s*09/03/2006 09/11/2016 Essential hypertension [I10] 10/17/2006 HYPERLIPIDEMIA NEC/NOS [E78.5] 10/17/2006 Chest pain [R07.9] 04/24/2010 09/11/2016 Asthma [J45.909] 04/24/2010 Allergy to environmental factors [Z91.09] 04/15/2011 Left rotator cuff tear [M75.102] 07/13/2012 09/11/2016 Arthritis of left shoulder region [M19.012] 09/11/2016 Arthritis of right shoulder region [M19.011] 09/11/2016 Mass of finger [R22.30] 10/02/2016 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 Encounter Status:Closed by TIGRE RESTREPO on 10/19/24 [facility] CNOVon 10-16-2024 [facility] Office Visit ([facility] ) BEATRIS QUINN ([id number]) 1950 M Date Time Provider Department 10/16/24 3:30 PM TIGRE RESTREPO [facility] During your visit today, we recorded the following information about you: Pulse Blood pressure Weight Height 79/minute 153/76 59.4 kg 1.626 m Tigre Restrepo MD 10/16/2024 10:44 AM [facility] DEPART[facility]ULMONARY MEDICINE ESTABLISHED PATIENT OFFICE VISIT 10/16/2024 Patient Name: Beatris Quinn PRIMARY CARE PHYSICIAN: Jr Ryan DO CHIEF COMPLAINT: lung nodules, COPD/asthma, allergies, mild CAD, aortic stenosis HISTORY OF PRESENT ILLNESS: Since the last visit with me on 02/2024, Mr. Quinn has been doing about the same. He continues to feel short of breath on exertion with cough. Underwent bronchoscopy April 2024 with sampling of the left upper lobe lung mass Cytology negative for malignancy Fungal organisms present in a background of acute inflammation and necrosis morphology favors Aspergillus over Pseudallescheria or Fusarium BAL culture right upper lobe and left upper lobe did grow Pseudomonas Patient was treated with antibiotics Patient followed up today with a CT scan chest that is pending official report showed stable lung opacities Works in [employer] From [facility] [employer] Social History Tobacco Use Smoking status: Former Current packs/day: 0.00 Average packs/day: 0.5 packs/day for 36.0 years (18.0 ttl pk-yrs) Types: Cigarettes Start date: 10/24/1969 Quit date: 10/24/2005 Years since quittin.9 Smokeless tobacco: Never Substance Use Topics Alcohol use: Yes Drug use: No ALLERGIES ALLERGIES Allergen Reactions Lisinopril Cough Maxzide [Triamteren* Intolerance leg cramp, sex desire decrease Naproxen GI Upset CURRENT OUTPATIENT MEDICATIONS OTC NUTRITIONAL SUPPLEMENT Factor 5 for joints ALPRAZolam (XANAX) 0.25 mg tablet Take by mouth at bedtime as needed. fluticasone-umeclidin- vilanter (TRELEGY ELLIPTA) 100-62.5-25 mcg inhalation powder Inhale 1 Puff as instructed once daily. MAGNESIUM ORAL Take by mouth. VITAMIN E ORAL Take by mouth. predniSONE EC 5 mg Delayed Release Tab Take 5 mg by mouth. taking 1/2 tablet daily GARLIC ORAL Take by mouth. albuterol HFA (PROAIR HFA) 90 mcg/actuation inhaler 2 puff(s), Inhalation, q4h, PRN as needed for wheezing amLODIPine (NORVASC) 5 mg tablet Take 1 tablet by mouth once daily. omeprazole (PRILOSEC) 20 mg capsule Take 1 capsule by mouth daily before breakfast. 1/2 hr before meal. Herbal Drugs cap Take 1 capsule by mouth once daily. gabapentin (NEURONTIN) 100 mg capsule Take 1 capsule by mouth three times daily for 30 days. fluticasone-vilanterol (BREO ELLIPTA) 200-25 mcg/dose inhaler Inhale 1 Inhalation as instructed once daily. Pt states only using 125mcg now REVIEW OF SYSTEMS Review of Systems Constitutional: Negative for chills, fever and weight loss. Respiratory: Positive for cough and shortness of breath. Negative for hemoptysis, sputum production and wheezing. Cardiovascular: Negative for leg swelling. The remainder of review of systems was negative. PHYSICAL EXAMINATION: BP 153/76 Pulse 79 Ht 5' 4 (1.63m) Wt 130 lb 15.3 oz (59.4kg) SpO2 94% BMI 22.47 kg/(m2). General appearance: Well appearing, alert, in no acute distress, well-hydrated, well nourished. DATA: Diagnostic tests reviewed and analysed for today's visit, including films and specimens, were personally reviewed by me Most recent labs and imaging results. XR CHEST 2V FRONTAL/LAT Result Date: 03/24/2024 IMPRESSION: 1. Nodular opacities in each lung have been thought to most likely be due to infectious etiology.. Neoplasm is not completely excluded. 2. Prominence of lung markings throughout each lung could represent some edema or infiltrate. Although this may be just differences in technique due to different penetrations the films. Seat Cover Cutter: [facility] Transcribe Date/Time: Mar 24 2024 1:44P Dictated by : JANINE HILLIARD DO This examination was interpreted and the report reviewed and electronically signed by: JANINE HILLIARD DO on Mar 24 2024 2:21PM EST XR CHEST 1V FRONTAL PORT Result Date: 03/11/2024 IMPRESSION: Findings which are likely infectious/inflammator y in the left greater than right lungs as described. More focal rounded opacity in the left midlung is new since 12/15/2023, likely also infectious in etiology although interval follow-up is recommended to document resolution. ACTIONABLE RESULT: FOLLOW-UP Acuity: Actionable Findings: Thoracic-Lung nodules Routing code: [email or web address] Recommendation: XR Chest 2 view Time Frame: 4-6 weeks COMMUNICATION: Results will be communicated with the ordering provider via [employer] staff message or phone message by [facility] Support Services within 2 business days of report finalization. --END OF FINDING-- Seat Cover Cutter: (more content not included)... Normal [facility] CT CHEST WO IVCONon 10-16-19 CT CHEST WO IVCON * * *Final Report* * * DATE OF EXAM: Oct 16 2024 7:11AM [facility] 0541 - CT CHEST WO IVCON / PROCEDURE REASON: J15.1-Pneumonia of both lungs due to Pseudomonas species, unspecified part of braydon * * * * Physician Interpretation * * * * EXAMINATION: CHEST CT WITHOUT CONTRAST CLINICAL HISTORY: History of lung nodules. History of pneumonia. Technique: Spiral CT acquisition of the chest from the thoracic inlet to the upper abdomen without contrast. MQ: [id number] CT Radiation dose: Integrated Dose-length product (DLP) for this visit = 148 mGy*cm CT Dose Reduction Employed: Automated exposure control(AEC) and iterative recon Comparison: CT chest 05/15/2024 RESULT: Limitations: None. Lines, tubes, and devices: None. Lung parenchyma and airways: Severe emphysema. Mild retained secretions in the trachea and right mainstem bronchus. Bilateral bronchial wall thickening. Bilateral bronchiectasis which is most pronounced in the right lower lobe. There are scattered tubular and branched opacities consistent with mucus plugging. As noted on the prior study there are clustered nodules in a tree-in-bud distribution which are most likely infectious/inflammator y. Resolution of previous described consolidative opacities in the right lower lobe. There is some residual atelectasis in the posterior right lower lobe. Again noted are multiple bilateral pulmonary nodules. For example, a dominant nodule in the left upper lobe measures 2.6 x 1.8 cm (301:100), previously 2.9 x 2 cm. Right middle lobe nodule measures 1.6 x 1.5 cm (301:181), previously 1.8 x 1.6 cm. No new pulmonary nodules. Pleural space: No pleural effusion. No pleural thickening. Lower neck, lymph nodes, and mediastinum: The imaged thyroid gland is normal. No lymphadenopathy in the supraclavicular, axillary, mediastinal, or hilar regions. Heart, pericardium, and thoracic vessels: Normal caliber of the thoracic aorta. Atherosclerotic calcifications of the thoracic aorta. Calcifications of the valve leaflets are noted. There is stable prominence of the main pulmonary artery. The cardiac chambers are normal in size. Coronary artery atherosclerotic calcifications are noted, although the study is not optimized for coronary assessment. No pericardial effusion or thickening. Unchanged posterior right pericardial cyst. Bones and soft tissues: No destructive bone lesion. Degenerative disease of the thoracic spine. Chest wall is unremarkable. Upper abdomen: No acute abnormality in the imaged upper abdomen. Calcified granulomas. Nonobstructing left renal calculus. Localizer images: No additional findings. IMPRESSION: 1. Resolution of previous described consolidative opacities in the right lower lobe 2. Some of the previously described pulmonary nodules have slightly decreased in size. No new pulmonary nodules. 3. Again noted is bilateral bronchial wall thickening, bronchiectasis and mucous plugging. Bilateral clustered nodules in a tree-in-bud distribution which are most likely infectious/inflammator y. Seat Cover Cutter: [facility] Transcribe Date/Time: Oct 20 2024 1:36P Dictated by : MICAELA FONTAINE MD This examination was interpreted and the report reviewed and electronically signed by: MICAELA FONTAINE MD on Oct 20 2024 2:05PM EST [id number] [facility] 10-09-2024 CNPN Telephone ([facility]) BEATRIS QUINN ([id number]) 1950 M Date Time Provider Department 10/09/24 TIGRE RESTREPO [facility] During your visit today, we recorded the following information about you: Candelaria Singh 10/09/2024 10:22 AM Signed Patient called COPD coordinator asking to message Dr. Restrepo requesting to add on testing at his next office visit on 10/16 in [place]. Patient states he will arrive one hour early for X-ray, CT scan or other testing. Patient has been calling the appointment line but has been on hold for too long. Please reach out to patient and confirm testing will be scheduled and advise of arrival time. Patient phone: [phone]. Tigre Restrepo MD 10/09/2024 10:39 AM Signed Please schedule him for a ct chest prior to his next appointment - if needed you can move the appointment until the ct chest is done. He does not need a cxr just a ct chest Veronica Sherman 10/09/2024 11:58 AM Signed First attempt at contacting patient, uzair to schedule Veronica Sherman 10/12/2024 8:34 AM Signed Patient is scheduled Allergies As of Date: 10/09/2024 Noted Allergy Reaction LISINOPRIL 07/01/2007 3 - Cough MAXZIDE (TRIAMTERENE-HYDROCHLO ROT*11/11/2006 5 - Intolerance Comments: leg cramp, sex desire decrease NAPROXEN 09/11/2016 8 - GI Upset Date Reviewed: 05/25/2024 Reviewed by: Aviva Solano RN - Fully Assessed Reason for Visit: Patient Request [[id number]] Cmt: Testing Prescriptions as of 10/12/2024 - fluticasone-umeclidin- vilanter (TRELEGY ELLIPTA) 100-62.5-25 mcg inhalation powder Inhale 1 Puff as instructed once daily. - MAGNESIUM ORAL Take by mouth. - VITAMIN E ORAL Take by mouth. - predniSONE EC 5 mg Delayed Release Tab Take 5 mg by mouth. taking 1/2 tablet daily - GARLIC ORAL Take by mouth. - albuterol HFA (PROAIR HFA) 90 mcg/actuation inhaler 2 puff(s), Inhalation, q4h, PRN as needed for wheezing - amLODIPine (NORVASC) 5 mg tablet Take 1 tablet by mouth once daily. - omeprazole (PRILOSEC) 20 mg capsule Take 1 capsule by mouth daily before breakfast. 1/2 hr before meal. - Herbal Drugs cap Take 1 capsule by mouth once daily. - gabapentin (NEURONTIN) 100 mg capsule Take 1 capsule by mouth three times daily for 30 days. - fluticasone-vilanterol (BREO ELLIPTA) 200-25 mcg/dose inhaler Inhale 1 Inhalation as instructed once daily. Pt states only using 125mcg now Problem List As Of Date 10/09/2024 Noted Resolved ASTHMA UNSPECIFIED [J45.909] 11/28/2005 10/02/2015 Swelling, mass, or lump in chest [R22.2] 03/04/2006 09/11/2016 Phlebitis and thrombophlebitis of unspecified s*09/03/2006 09/11/2016 Essential hypertension [I10] 10/17/2006 HYPERLIPIDEMIA NEC/NOS [E78.5] 10/17/2006 Chest pain [R07.9] 04/24/2010 09/11/2016 Asthma [J45.909] 04/24/2010 Allergy to environmental factors [Z91.09] 04/15/2011 Left rotator cuff tear [M75.102] 07/13/2012 09/11/2016 Arthritis of left shoulder region [M19.012] 09/11/2016 Arthritis of right shoulder region [M19.011] 09/11/2016 Mass of finger [R22.30] 10/02/2016 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 Nothing in [facility]. Thanks Kacey Che LPN 07/01/2024 3:59 PM Signed Attempted to call pt, no answer but message was left on vm for him to return our call. When Pt calls, please see message below from Dr. Restrepo. Janie Baxter RN 07/02/2024 2:35 PM Signed Need to CB after 4P Tigre Restrepo MD 07/07/2024 3:56 PM Signed Please call his work phone and ask to talk to him Janie Baxter RN 07/07/2024 4:09 PM Signed Left the message on VM, asked him to CB and advise if he has seen ID. Left number to CB to leave a message. Razia Triplett 07/07/2024 6:23 PM Signed called back and said they are not interested Tigre Restrepo MD 07/08/2024 10:11 AM Signed Please send him a letter that we need to see him again in our office with a ct chest in July. Order is there Tigre Restrepo MD 07/08/2024 10:11 AM Signed Addended by: TIGRE RESTREPO on: 07/08/2024 10:11 AM Modules accepted: Orders Allergies As of Date: 07/01/2024 Noted Allergy Reaction LISINOPRIL 07/01/2007 3 - Cough MAXZIDE (TRIAMTERENE-HYDROCHLO ROT*11/11/2006 5 - Intolerance Comments: leg cramp, sex desire decrease NAPROXEN 09/11/2016 8 - GI Upset Date Reviewed: 05/25/2024 Reviewed by: Aviva Solano RN - Fully Assessed Primary Visit Diagnosis:Pneumonia of both lungs due to Pseudomonas species, unspecified part of lung (HCC) [J15.1] Order(s):CT CHEST WO [facility]IAMON [[id number]] Order #: [id number] FUTURE Prescriptions as of 07/08/2024 - fluticasone-umeclidin- vilanter (TRELEGY ELLIPTA) 100-62.5-25 mcg inhalation powder Inhale 1 Puff as instructed once daily. - MAGNESIUM ORAL Take by mouth. - VITAMIN E ORAL Take by mouth. - predniSONE EC 5 mg Delayed Release Tab Take 5 mg by mouth. taking 1/2 tablet daily - GARLIC ORAL Take by mouth. - albuterol HFA (PROAIR HFA) 90 mcg/actuation inhaler 2 puff(s), Inhalation, q4h, PRN as needed for wheezing - amLODIPine (NORVASC) 5 mg tablet Take 1 tablet by mouth once daily. - omeprazole (PRILOSEC) 20 mg capsule Take 1 capsule by mouth daily before breakfast. 1/2 hr before meal. - Herbal Drugs cap Take 1 capsule by mouth once daily. - gabapentin (NEURONTIN) 100 mg capsule Take 1 capsule by mouth three times daily for 30 days. - fluticasone-vilanterol (BREO ELLIPTA) 200-25 mcg/dose inhaler Inhale 1 Inhalation as instructed once daily. Pt states only using 125mcg now Problem List As Of Date 07/01/2024 Noted Resolved ASTHMA UNSPECIFIED [J45.909] 11/28/2005 10/02/2015 Swelling, mass, or lump in chest [R22.2] 03/04/2006 09/11/2016 Phlebitis and thrombophlebitis of unspecified s*09/03/2006 09/11/2016 Essential hypertension [I10] 10/17/2006 HYPERLIPIDEMIA NEC/NOS [E78.5] 10/17/2006 Chest pain [R07.9] 04/24/2010 09/11/2016 Asthma [J45.909] 04/24/2010 Allergy to environmental factors [Z91.09] 04/15/2011 Left rotator cuff tear [M75.102] 07/13/2012 09/11/2016 Arthritis of left shoulder region [M19.012] 09/11/2016 Arthritis of right shoulder region [M19.011] 09/11/2016 Mass of finger [R22.30] 10/02/2016 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 Left ventricular systolic function is normal. EF = 59 5% (2D 4-ch.) Grade I left ventricular diastolic dysfunction. - The right ventricle is normal in size. Right ventricular systolic function is normal. - There is mild aortic stenosis present. Peak and mean gradient of 27/15 mmHg respectively. - The patient has not had a prior CC echocardiographic exam for comparison. * * * Final * * * [facility] Echocardiography Report: Transthoracic Echo [facility] Date of service: 06/05/2024 8:31:52 AM Ordering physician: CLAIRE TURNER Indication: Cardiac Murmur Technologist: Elina Sutton [facility] Interpreting physician: Sammy Robledo DO PATIENT: Name: MR. BEATRIS QUINN : 1950 Age: 73 years Gender: M Primary rhythm: sinus. Height: 162.56 cm BSA: 1.61 m Weight: 57.61 kg BMI: 21.8 kg/m Heart rate 73 bpm Blood pressure 133/58 mmHg Color Doppler was utilized to interrogate the cardiac valves assessed and spectral Doppler was utilized to determine the flow velocities and pressure gradients reported in this exam. Myocardial strain analysis was performed in this exam to aid in the assessment of cardiac function. MEASUREMENTS: Value Indexed Normal Max aortic dimension 3.4 cm Ao < 3.8 Left atrial volume 46 ml (biplane A-L) 28 ml/m Elbert <= 34 LV ID (diastole) 3.0 cm (2D) 1.89 cm/m LV ID (systole) 2.2 cm (2D) 1.34 cm/m IVS, leaflet tips 1.0 cm (2D) Posterior wall thickness 0.9 cm (2D) Left ventricular mass 82 g (2D) 51 g/m Global peak long strain -18.8 % LV stroke volume 28 ml (2D 4-ch.) LVOT stroke volume 68 ml 42 ml/m LV end diastolic volume 48 ml (2D 4-ch.) 29.8 ml/m 34<=EDVi<75 LV end systolic volume 20 ml (2D 4-ch.) 12.1 ml/m Ejection Fraction 59 % (2D 4-ch.) EF > 52 FINDINGS: LEFT VENTRICLE The left ventricle is normal in size. Left ventricular systolic function is normal. Global LV myocardial strain is normal. Grade I left ventricular diastolic dysfunction. Mitral annular lateral E/e': 22.3. Mitral annular septal E/e': 18.1. Wall Motion: All scored segments are normal. RIGHT VENTRICLE The right ventricle is normal in size. Right ventricular systolic function is normal. RV systolic tissue Doppler velocity is 10.4 cm/s. Tricuspid annular displacement is 2.0 cm. Estimated right ventricular systolic pressure is not reported due to an insufficient tricuspid regurgitation signal. Estimated right atrial pressure is not included as the IVC was not seen. LEFT ATRIUM The left atrial cavity is normal in size. RIGHT ATRIUM The right atrial cavity is normal in size. MITRAL VALVE There is trace mitral valve regurgitation. There is mild thickening. The pressure half time is 106 msec. The peak mitral E/A ratio is 0.66. The average mitral E/e' ratio is 20.2. The mitral flow deceleration time is 367 msec. TRICUSPID VALVE The tricuspid valve leaflets are structurally normal. There is trace (trace - 1+) tricuspid valve regurgitation. AORTIC VALVE There is mild aortic valve stenosis caused by calcified valve. There is trace (trace - 1+) aortic valve regurgitation. There is mild thickening. There is mild calcification. The peak gradient is 27 mmHg (peak velocity = 260.0 cm/s). The mean gradient is 15 mmHg. The LVOT mean velocity is 71.0 cm/s. The LVOT diameter is 2.0 cm. The aortic VTI is 58.0 cm. The mean velocity in the aortic valve is 180.0 cm/s. The dimensionless valve index is 0.39. AV area is 1.18 cm (0.73 cm /m ) by continuity, VTI. The LVOT stroke volume index is 42 ml/m . PULMONIC VALVE The pulmonic valve cusps are structurally normal. There is no pulmonic valve regurgitation. AORTA The visualized aorta is normal in size. Measurements - Aortic valve annulus 2.0 cm. Sinus: 2.9 cm. Sinotubular junction 2.5 cm. Mid ascending aorta 2.7 cm. Distal ascending aorta 3.4 cm. PULMONARY ARTERIES The pulmonary arteries are normal. INTERATRIAL SEPTUM There is no evidence of intracardiac shunting as detected by Doppler. INTERVENTRICULAR SEPTUM There is no flow through the interventricular septum as detected by Doppler. PERICARDIUM There is no pericardial effusion. There is an epicardial fat pad. [facility] [facility] Echocardiography Report: Transthoracic Echo [facility] Date of service: 06/05/2024 8:31:52 AM Ordering physician: CLAIRE TURNER Indication: Cardiac Murmur Technologist: Elina Sutton [facility] Interpreting physician: Sammy Robledo DO PATIENT: Name: MR. BEATRIS QUINN : 1950 Age: 73 years Gender: M Primary rhythm: sinus. Height: 162.56 cm BSA: 1.61 m Weight: 57.61 kg BMI: 21.8 kg/m Heart rate 73 bpm Blood pressure 133/58 mmHg Color Doppler was utilized to interrogate the cardiac valves assessed and spectral Doppler was utilized to determine the flow velocities and pressure gradients reported in this exam. Myocardial strain analysis was performed in this exam to aid in the assessment of cardiac function. MEASUREMENTS: Value Indexed Normal Max aortic dimension 3.4 cm Ao < 3.8 Left atrial volume 46 ml (biplane A-L) 28 ml/m Elbert <= 34 LV ID (diastole) 3.0 cm (2D) 1.89 cm/m LV ID (systole) 2.2 cm (2D) 1.34 cm/m IVS, leaflet tips 1.0 cm (2D) Posterior wall thickness 0.9 cm (2D) Left ventricular mass 82 g (2D) 51 g/m Global peak long strain -18.8 % LV stroke volume 28 ml (2D 4-ch.) LVOT stroke volume 68 ml 42 ml/m LV end diastolic volume 48 ml (2D 4-ch.) 29.8 ml/m 34<=EDVi<75 LV end systolic volume 20 ml (2D 4-ch.) 12.1 ml/m Ejection Fraction 59 % (2D 4-ch.) EF > 52 FINDINGS: LEFT VENTRICLE The left ventricle is normal in size. Left ventricular systolic function is normal. Global LV myocardial strain is normal. Grade I left ventricular diastolic dysfunction. Mitral annular lateral E/e': 22.3. Mitral annular septal E/e': 18.1. Wall Motion: All scored segments are normal. RIGHT VENTRICLE The right ventricle is normal in size. Right ventricular systolic function is normal. RV systolic tissue Doppler velocity is 10.4 cm/s. Tricuspid annular displacement is 2.0 cm. Estimated right ventricular systolic pressure is not reported due to an insufficient tricuspid regurgitation signal. Estimated right atrial pressure is not included as the IVC was not seen. LEFT ATRIUM The left atrial cavity is normal in size. RIGHT ATRIUM The right atrial cavity is normal in size. MITRAL VALVE There is trace mitral valve regurgitation. There is mild thickening. The pressure half time is 106 msec. The peak mitral E/A ratio is 0.66. The average mitral E/e' ratio is 20.2. The mitral flow deceleration time is 367 msec. TRICUSPID VALVE The tricuspid valve leaflets are structurally normal. There is trace (trace - 1+) tricuspid valve regurgitation. AORTIC VALVE There is mild aortic valve stenosis caused by calcified valve. There is trace (trace - 1+) aortic valve regurgitation. There is mild thickening. There is mild calcification. The peak gradient is 27 mmHg (peak velocity = 260.0 cm/s). The mean gradient is 15 mmHg. The LVOT mean velocity is 71.0 cm/s. The LVOT diameter is 2.0 cm. The aortic VTI is 58.0 cm. The mean velocity in the aortic valve is 180.0 cm/s. The dimensionless valve index is 0.39. AV area is 1.18 cm (0.73 cm /m ) by continuity, VTI. The LVOT stroke volume index is 42 ml/m . PULMONIC VALVE The pulmonic valve cusps are structurally normal. There is no pulmonic valve regurgitation. AORTA The visualized aorta is normal in size. Measurements - Aortic valve annulus 2.0 cm. Sinus: 2.9 cm. Sinotubular junction 2.5 cm. Mid ascending aorta 2.7 cm. Distal ascending aorta 3.4 cm. PULMONARY ARTERIES The pulmonary arteries are normal. INTERATRIAL SEPTUM There is no evidence of intracardiac shunting as detected by Doppler. INTERVENTRICULAR SEPTUM There is no flow through the interventricular septum as detected by Doppler. PERICARDIUM There is no pericardial effusion. There is an epicardial fat pad. CONCLUSIONS: - Exam indication: Cardiac Murmur - The left ventricle is normal in size. Left ventricular systolic function is normal. EF = 59 5% (2D 4-ch.) Grade I left ventricular diastolic dysfunction. - The right ventricle is normal in size. Right ventricular systolic function is normal. - There is mild aortic stenosis present. Peak and mean gradient of 27/15 mmHg respectively. - The patient has not had a prior CC echocardiographic exam for comparison. * * * Final * * * CC [employer] Medical Image : [id number] sSIJD [facility] 05-28-2024 [facility] Telephone (MEPRAD) BEATRIS QUINN ([id number]) 1950 Date Time Provider Department 05/28/24 TIGRE RESTREPO MEPRAD During your visit today, we recorded the following information about you: Tigre Restrepo MD 05/28/2024 1:29 PM Addendum Please inform the patient that the culture is growing a bacteria that needs to be treated with antibiotics. I have contacted him earlier because a virus also grew on the bronchoscopy sample. I will send him an antibiotic that he needs to take for 14 days Also please schedule him with infectious disease Thanks nh Tigre Restrepo MD 05/28/2024 1:29 PM Signed Addended by: TIGRE RESTREPO on: 05/28/2024 01:29 PM Modules accepted: Orders Glendy Dial RN 05/28/2024 1:32 PM Signed Left message for patient to return call. Veronica Sherman 06/01/2024 10:35 AM Signed First attempt at contacting patient, left VM to schedule Veronica Sherman 06/02/2024 1:04 PM Signed Second attempt at contacting patient, left VM to schedule Veronica Sherman 06/04/2024 9:06 AM Signed Third attempt at contacting patient, left VM Allergies As of Date: 05/28/2024 Noted Allergy Reaction LISINOPRIL 07/01/2007 3 - Cough MAXZIDE (TRIAMTERENE-HYDROCHLO ROT*11/11/2006 5 - Intolerance Comments: leg cramp, sex desire decrease NAPROXEN 09/11/2016 8 - GI Upset Date Reviewed: 05/25/2024 Reviewed by: Aviva Solano, EM - Fully Assessed Reason for Visit: Results [95] Primary Visit Diagnosis:Fungal pneumonia [J16.8, B49] Order(s):levoFLOXacin (LEVAQUIN) 750 mg tabletTake 1 tablet by mouth once daily for 14 days.Disp: 14 tabletRfl: 0 CONSULT TO INFECTIOUS DISEASES [9016] Order #: [id number]: 1 FUTURE Prescriptions as of 06/04/2024 - fluticasone-umeclidin- vilanter (TRELEGY ELLIPTA) 100-62.5-25 mcg inhalation powder Inhale 1 Puff as instructed once daily. - levoFLOXacin (LEVAQUIN) 750 mg tablet Take 1 tablet by mouth once daily for 14 days. - MAGNESIUM ORAL Take by mouth. - VITAMIN E ORAL Take by mouth. - predniSONE EC 5 mg Delayed Release Tab Take 5 mg by mouth. taking 1/2 tablet daily - GARLIC ORAL Take by mouth. - albuterol HFA (PROAIR HFA) 90 mcg/actuation inhaler 2 puff(s), Inhalation, q4h, PRN as needed for wheezing - amLODIPine (NORVASC) 5 mg tablet Take 1 tablet by mouth once daily. - omeprazole (PRILOSEC) 20 mg capsule Take 1 capsule by mouth daily before breakfast. 1/2 hr before meal. - Herbal Drugs cap Take 1 capsule by mouth once daily. - gabapentin (NEURONTIN) 100 mg capsule Take 1 capsule by mouth three times daily for 30 days. - fluticasone-vilanterol (BREO ELLIPTA) 200-25 mcg/dose inhaler Inhale 1 Inhalation as instructed once daily. 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 Encounter Status:[facility] (MEPRAD[facility] BEATRIS QUINN ([id number]) 1950 M Date Time Provider Department 05/27/24 TIGRE RESTREPO During your visit today, we recorded the following information about you: Tigre Restrepo MD 05/27/2024 11:40 AM Signed Please inform the patient that there was no cancer seen on lung biopsy. I am still waiting for the culture. Thanks nh Janie Baxter RN 05/27/2024 12:11 PM Signed Left a message per patient request that he will get a call back at the number listed t give him the message. Janie Baxter RN 05/27/2024 4:07 PM Signed Called patient at 4:06, advised he would get a CB at 4P. Left a message that this nurse will CB at 7P tonight. Janie Baxter RN 05/27/2024 7:08 PM Signed Called patient at 7:07, left a message when is a good time to reach him. Allergies As of Date: 05/27/2024 Noted Allergy Reaction LISINOPRIL 07/01/2007 3 - Cough MAXZIDE (TRIAMTERENE-HYDROCHLO ROT*11/11/2006 5 - Intolerance Comments: leg cramp, sex desire decrease NAPROXEN 09/11/2016 8 - GI Upset Date Reviewed: 05/25/2024 Reviewed by: Aviva Solano, EM - Fully Assessed Prescriptions as of 05/27/2024 - predniSONE (DELTASONE) 20 mg tablet Take 2 tablets by mouth once daily for 7 days. - MAGNESIUM ORAL Take by mouth. - VITAMIN E ORAL Take by mouth. - predniSONE EC 5 mg Delayed Release Tab Take 5 mg by mouth. taking 1/2 tablet daily - GARLIC ORAL Take by mouth. - albuterol HFA (PROAIR HFA) 90 mcg/actuation inhaler 2 puff(s), Inhalation, q4h, PRN as needed for wheezing - fluticasone/umeclidin/ vilanter (TRELEGY ELLIPTA INHALATION) Inhale as instructed. - amLODIPine (NORVASC) 5 mg tablet Take 1 tablet by mouth once daily. - omeprazole (PRILOSEC) 20 mg capsule Take 1 capsule by mouth daily before breakfast. 1/2 hr before meal. - Herbal Drugs cap Take 1 capsule by mouth once daily. - gabapentin (NEURONTIN) 100 mg capsule Take 1 capsule by mouth three times daily for 30 days. - fluticasone-vilanterol (BREO ELLIPTA) 200-25 mcg/dose inhaler Inhale 1 Inhalation as instructed once daily. 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 Compared to 03/27/2024 exam, most of the prior visualized opacities appear similar in size, except for new peripheral consolidative opacities in the right lower lobe. It should be noted that the dominant lesions in the left upper and middle lobes has diminished in size compared to 02/06/2024 exam (as described), including left lower lobe superior segment consolidative opacity. Therefore, in the light of multiple nodules, and airway inflammatory changes, the dominant lesions are felt to be in infectious/inflammator y (granulomatous-fungal or mycobacterial [nontuberculous?]). 2. Fairly severe emphysema. Multiple mucous plugs. Bronchiectatic changes, possibly associated with aspiration. 3. No enlarging lymph nodes. Seat Cover Cutter: NESTOR Transcribe Date/Time: May 15 2024 4:44P Dictated by : ALIREZA FREDERICK MD This examination was interpreted and the report reviewed and electronically signed by: ALIREZA FREDERICK MD on May 15 2024 4:59PM [facility] DIVISION OF RADIOLOGY * * *Final Report* * * DATE OF EXAM: May 15 2024 12:14PM [facility] 0541 - CT CHEST WO IVCON / PROCEDURE REASON: Multiple nodules of lung * * * * Physician Interpretation * * * * EXAMINATION: CHEST CT WITHOUT CONTRAST CLINICAL HISTORY: 63-year-old female former 18 pack year smoker with multiple nodules, severe COPD Technique: Spiral CT acquisition of the chest from the thoracic inlet to the upper abdomen without contrast. Super dimension protocol utilized. MQ: CTCWO_6 CT Radiation dose: Integrated Dose-length product (DLP) for this visit = 279 mGy*cm CT Dose Reduction Employed: Automated exposure control (AEC) Comparison: 03/27/2024 RESULT: Limitations: Minimal cardiac pulsation related motion noted. Work Order Clerk (topogram) images: No additional findings. Lines, tubes, and devices: None. Lung parenchyma: On lung windows, saber-sheath tracheal configuration. Minimal retained secretions. Bilateral bronchial wall thickening suggestive of airways inflammation. Fairly severe emphysema. Bronchiectatic changes, most pronounced in the right lower lobe. Multiple mucous plugs including left apical subsegment bronchus with vertically oriented tubular opacity pattern, and left lower lobe posterior basilar subsegment branching tubular opacity (with surrounding hyperlucency difficult to completely differentiate from bronchial atresia if the finding is visible from childhood, but less likely). Multiple nodules and irregular dominant nodular masses are noted, similar in appearance to 03/27/2024 except for new consolidative opacities in the right lower lobe (27 mm long axis image 268 and 11 mm on image 317. Multiple centrilobular opacities including tree-in-bud opacities suggestive of bronchiolitis especially in the right lower lobe and to lesser extent inferior middle lobe. Dominant left upper lobe 20 x 29 mm nodular lesion image 175 was similar in size except for interval decrease size resolution of the cavitary lucency, but diminished in size compared to outside chest CT dated 02/06/2024 (measuring about 29 x 39 mm). Middle lobe nodular lesion measures 16 x 18 mm on image 293, previously about 16 x 20 mm, and prior to that 19 x 25 mm. Within the left lower lobe superior segment, residual elongated opacity is noted (image 123) similar in appearance to prior exam, but prior to that measuring about 22 x 32 mm. Other nodular lesions appear similar back to 02/06/2024. Bilateral calcified granulomata. Pleural space: No pleural effusion. No pneumothorax. Lower neck, lymph nodes, and mediastinum: Visualized portions of the thyroid appear stable. No progressive axillary or supraclavicular lymphadenopathy meeting size criteria noted. Intrathoracically, no progressive intrathoracic lymphadenopathy meeting size criteria noted. Calcified lymph nodes. Heart, pericardium, and thoracic vessels: Atherosclerotic calcifications of the aorta and its branches noted. Common origin of brachiocephalic and left common carotid arteries arising off the aortic arch is noted, an anatomic variant. Ascending aorta is 38 mm, upper limits of normal. Pulmonary trunk is 32 mm, mildly dilated. Aortic valve leaflet calcifications are concerning for valvular stenosis. Mitral annular calcifications. Multivessel coronary artery calcifications redemonstrated. Stable heart size noted. No pericardial effusion. Adjacent to right posterior pericardial margin/inferior cavoatrial junction, fluid attenuation (7 Hounsfield units) 2 x 3 cm lesion most likely represents pericardial cyst. Stable esophagus with some endoluminal gas. Bones and soft tissues: Chest wall soft tissue structures are stable. Partial fatty atrophy of shoulder musculature associated with the scapula, right worse than left. On bone window images, degenerative changes of the spine noted. Suspect osteopenia. Mild posttraumatic changes of the left ribs. Upper abdomen: Calcified splenic granulomas. Focal atherosclerotic calcifications of the abdominal aorta and splenic artery. DIVISION OF RADIOLOGY Provider, [facility] - 05/15/2024 * * *Final Report* * * DATE OF EXAM: May 15 2024 12:14PM [facility] 05[facility] - CT CHEST WO IVCON / PROCEDURE REASON: Multiple nodules of lung * * * * Physician Interpretation * * * * EXAMINATION: CHEST CT WITHOUT CONTRAST CLINICAL HISTORY: 63-year-old female former 18 pack year smoker with multiple nodules, severe COPD Technique: Spiral CT acquisition of the chest from the thoracic inlet to the upper abdomen without contrast. Super dimension protocol utilized. MQ: CTCWO_6 CT Radiation dose: Integrated Dose-length product (DLP) for this visit = 279 mGy*cm CT Dose Reduction Employed: Automated exposure control (AEC) Comparison: 03/27/2024 RESULT: Limitations: Minimal cardiac pulsation related motion noted. Work Order Clerk (topogram) images: No additional findings. Lines, tubes, and devices: None. Lung parenchyma: On lung windows, saber-sheath tracheal configuration. Minimal retained secretions. Bilateral bronchial wall thickening suggestive of airways inflammation. Fairly severe emphysema. Bronchiectatic changes, most pronounced in the right lower lobe. Multiple mucous plugs including left apical subsegment bronchus with vertically oriented tubular opacity pattern, and left lower lobe posterior basilar subsegment branching tubular opacity (with surrounding hyperlucency difficult to completely differentiate from bronchial atresia if the finding is visible from childhood, but less likely). Multiple nodules and irregular dominant nodular masses are noted, similar in appearance to 03/27/2024 except for new consolidative opacities in the right lower lobe (27 mm long axis image 268 and 11 mm on image 317. Multiple centrilobular opacities including tree-in-bud opacities suggestive of bronchiolitis especially in the right lower lobe and to lesser extent inferior middle lobe. Dominant left upper lobe 20 x 29 mm nodular lesion image 175 was similar in size except for interval decrease size resolution of the cavitary lucency, but diminished in size compared to outside chest CT dated 02/06/2024 (measuring about 29 x 39 mm). Middle lobe nodular lesion measures 16 x 18 mm on image 293, previously about 16 x 20 mm, and prior to that 19 x 25 mm. Within the left lower lobe superior segment, residual elongated opacity is noted (image 123) similar in appearance to prior exam, but prior to that measuring about 22 x 32 mm. Other nodular lesions appear similar back to 02/06/2024. Bilateral calcified granulomata. Pleural space: No pleural effusion. No pneumothorax. Lower neck, lymph nodes, and mediastinum: Visualized portions of the thyroid appear stable. No progressive axillary or supraclavicular lymphadenopathy meeting size criteria noted. Intrathoracically, no progressive intrathoracic lymphadenopathy meeting size criteria noted. Calcified lymph nodes. Heart, pericardium, and thoracic vessels: Atherosclerotic calcifications of the aorta and its branches noted. Common origin of brachiocephalic and left common carotid arteries arising off the aortic arch is noted, an anatomic variant. Ascending aorta is 38 mm, upper limits of normal. Pulmonary trunk is 32 mm, mildly dilated. Aortic valve leaflet calcifications are concerning for valvular stenosis. Mitral annular calcifications. Multivessel coronary artery calcifications redemonstrated. Stable heart size noted. No pericardial effusion. Adjacent to right posterior pericardial margin/inferior cavoatrial junction, fluid attenuation (7 Hounsfield units) 2 x 3 cm lesion most likely represents pericardial cyst. Stable esophagus with some endoluminal gas. Bones and soft tissues: Chest wall soft tissue structures are stable. Partial fatty atrophy of shoulder musculature associated with the scapula, right worse than left. On bone window images, degenerative changes of the spine noted. Suspect osteopenia. Mild posttraumatic changes of the left ribs. Upper abdomen: Calcified splenic granulomas. Focal atherosclerotic calcifications of the abdominal aorta and splenic artery. IMPRESSION IMPRESSION: 1. Compared to 03/27/2024 exam, most of the prior visualized opacities appear similar in size, except for new peripheral consolidative opacities in the right lower lobe. It should be noted that the dominant lesions in the left upper and middle lobes has diminished in size compared to 02/06/2024 exam (as described), including left lower lobe superior segment consolidative opacity. Therefore, in the light of multiple nodules, and airway inflammatory changes, the dominant lesions are felt to be in infectious/inflammator y (granulomatous-fungal or mycobacterial [nontuberculous?]). 2. Fairly severe emphysema. Multiple mucous plugs. Bronchiectatic changes, possibly associated with aspiration. 3. No enlarging lym (more content not included)... [facility] Radiology Study observation (narrative) [facility] CT Chest WO contrastOrdered By: [facility] Provider on 05-15-2024 [facility] CNCOon 04-24-2024 CNCO Letter Text Normal [facility] CNPNon 04-21-2024 CNPN Telephone (MEPRAD) QUINNBEATRIS Del Valle ([id number]) 1950 M Date Time Provider Department 04/21/24 TIGRE RESTREPO During your visit today, we recorded the following information about you: Allergies As of Date: 04/21/2024 Noted Allergy Reaction LISINOPRIL 07/01/2007 3 - Cough MAXZIDE (TRIAMTERENE-HYDROCHLO ROT*11/11/2006 5 - Intolerance Comments: leg cramp, sex desire decrease NAPROXEN 09/11/2016 8 - GI Upset Date Reviewed: 03/26/2024 Reviewed by: Symone Daniels, RT(R) - Fully Assessed Prescriptions as of 04/21/2024 - MAGNESIUM ORAL Take by mouth. - VITAMIN E ORAL Take by mouth. - predniSONE EC 5 mg Delayed Release Tab Take 5 mg by mouth. taking 1/2 tablet daily - GARLIC ORAL Take by mouth. - albuterol HFA (PROAIR HFA) 90 mcg/actuation inhaler 2 puff(s), Inhalation, q4h, PRN as needed for wheezing - fluticasone/umeclidin/ vilanter (TRELEGY ELLIPTA INHALATION) Inhale as instructed. - amLODIPine (NORVASC) 5 mg tablet Take 1 tablet by mouth once daily. - omeprazole (PRILOSEC) 20 mg capsule Take 1 capsule by mouth daily before breakfast. 1/2 hr before meal. - Herbal Drugs cap Take 1 capsule by mouth once daily. - gabapentin (NEURONTIN) 100 mg capsule Take 1 capsule by mouth three times daily for 30 days. - fluticasone-vilanterol (BREO ELLIPTA) 200-25 mcg/dose inhaler Inhale 1 Inhalation as instructed once daily. 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] 09/11/2016 Arthritis of right shoulder region [M19.011] 09/11/2016 Mass of finger [R22.30] 10/02/2016 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 Encounter Status:Closed by TIGRE RESTREPO on 04/21/24 [facility] Telephone (MEPRAD) BEATRIS QUINN ([id number]) 1950 M Date Time Provider Department 04/21/24 TIGRE RESTREPO During your visit today, we recorded the following information about you: Tigre Restrepo MD 04/21/2024 4:18 PM Addendum He has an appointment with cardiology next month at [place] Please can you please try to get him sooner to see cardiology at any location for clearance for general anesthesia before a scheduled lung biopsy to be done as soon as possible for possible lung cancer He said you can leave him a voice message on his home phone number and he will get it later when he gets home I was able to talk to him today I called his work number and they paged him for me Thank you Veronica Sherman 04/22/2024 9:41 AM Signed Patient has the soonest available appt in [place] right now, he is placed on the waitlist for cancellations. Called and left to give him the central scheduling cardiology number to see which locations have sooner appointments, since we only have access to schedule for Maynard Laila Galdamez, Rosaura Melendrez 04/22/2024 4:12 PM Signed PT calling, he was recently seen at [facility] for a heart stent procedure. PT stated he will reach out to that office for clearance and have the office fax over cardiac clearance forms. PT was provided with the fax number to the [facility] office. Cecelia Solo 04/24/2024 9:39 AM Signed [facility] called asking if the cardiac clearance paperwork could be faxed to them at [phone] so the doctor can sign off on it. Kacey Che LPN 04/24/2024 2:37 PM Signed Tigre Restrepo MD You12 minutes ago (2:24 PM) I out it on your desk Tigre Restrepo MD You13 minutes ago (2:23 PM) I printed a letter and we can fax it to them Thanks nh You Tigre Restrepo MD3 hours ago (11:25 AM) [facility] Dr. Restrepo - we don't have a cardiac clearance paperwork. Would you like for me to just request the Office visit note and/or procedure note? Kacey Che LPN 04/24/2024 2:47 PM Signed Faxed Clearance letter to [facility] [phone] and received confirmation. Letter was placed in the filing drawer. Will await for Office note and letter back stating if Pt is cleared. Kacey Che LPN 04/29/2024 2:20 PM Addendum Received fax back from [facility]. Medical records and letter was placed in Dr. Restrepo's basket for review. Copies were given to our PSS in [place] to scan into Pt's chart. Once scanned they will be under scanned documents. Kacey Che LPN 04/29/2024 2:24 PM Signed Records are in Pt's chart. Allergies As of Date: 04/21/2024 Noted Allergy Reaction LISINOPRIL 07/01/2007 3 - Cough MAXZIDE (TRIAMTERENE-HYDROCHLO ROT*11/11/2006 5 - Intolerance Comments: leg cramp, sex desire decrease NAPROXEN 09/11/2016 8 - GI Upset Date Reviewed: 03/26/2024 Reviewed by: Symone Daniels, RT(R) - Fully Assessed Reason for Visit: Appointment [[id number]] Prescriptions as of 04/29/2024 - MAGNESIUM ORAL Take by mouth. - VITAMIN E ORAL Take by mouth. - predniSONE EC 5 mg Delayed Release Tab Take 5 mg by mouth. taking 1/2 tablet daily - GARLIC ORAL Take by mouth. - albuterol HFA (PROAIR HFA) 90 mcg/actuation inhaler 2 puff(s), Inhalation, q4h, PRN as needed for wheezing - fluticasone/umeclidin/ vilanter (TRELEGY ELLIPTA INHALATION) Inhale as instructed. - amLODIPine (NORVASC) 5 mg tablet Take 1 tablet by mouth once daily. - omeprazole (PRILOSEC) 20 mg capsule Take 1 capsule by mouth daily before breakfast. 1/2 hr before meal. - Herbal Drugs cap Take 1 capsule by mouth once daily. - gabapentin (NEURONTIN) 100 mg capsule Take 1 capsule by mouth three times daily for 30 days. - fluticasone-vilanterol (BREO ELLIPTA) 200-25 mcg/dose inhaler Inhale 1 Inhalation as instructed once daily. 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] 09/11/2016 Arthritis of right shoulder region [M19.011] 09/11/2016 Mass of finger [R22.30] 10/02/2016 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 Inaccurate results may also occur from other interfering factors, such as N-acetylcysteine (blood concentrations of greater than 5mg/dL), galactose, extremes of hematocrit (<10 or >65), or high doses of ascorbic acid (vitamin C) greater than 3mg/dL. Consider alternate testing mechanisms (e.g. core lab, blood gas instrument) in the above situations. [facility] NM PET/CT SKULL-THIGH INITon 04-21-2024 NM PET/CT SKULL-THIGH INIT * * *Final Report* * * DATE OF EXAM: Apr 21 2024 8:00AM MDP 0060 - NM PET/CT SKULL-THIGH INIT / PROCEDURE REASON: R91.8-Lung nodules * * * * Physician Interpretation * * * * EXAMINATION: BODY FDG PET-CT CLINICAL HISTORY: Indeterminate pulmonary nodule(s). EXAM CATEGORY: Initial treatment strategy. TECHNIQUE: Radiopharmaceutical was administered intravenously followed by PET imaging from the eyes to thighs. Free breathing, low dose CT of the same body region was acquired without IV contrast for attenuation correction and anatomic localization. Unenhanced imaging is limited for the evaluation of some pathology and the acquired CT was not designed to produce diagnostic CT scan quality. Physiologic/non-pathol ogic uptake in some body regions could confound or obscure some pathology. * CT Dose-Length Product (DLP): 247 mGy*cm * CT Dose Reduction Employed: Yes * Blood glucose: 95 mg/dL * Injected activity: 6.8 mCi * Uptake Time: 50 minutes * Radiopharmaceutical: E60-Skityrzxdblhvzfluy (FDG) COMPARISON: No previous FDG PET/CT available CORRELATION: CT 03/27/2024 RESULT: REFERENCES: FDG uptake is used as a surrogate marker for glucose metabolism. All reported standardized uptake values represent maximum SUV (SUVmax) per body weight, unless otherwise specified. SUV reference values, as follows: * Blood Pool (Descending Aorta): SUVmax 2.2 * Background Liver: SUVmax 2.7 Localizer Images: No additional findings. HEAD AND NECK: Head: No radiotracer avid lesion or mass effect in the imaged intracranial compartment. Aerodigestive Tract: No radiotracer avid lesion. Maxillary sinus mucosal thickening without increased radiotracer uptake. Lymph Nodes: No radiotracer avid lymphadenopathy. Neck Soft Tissues: No radiotracer avid thyroid nodule. CHEST: Lungs and Pleura: * Numerous bilateral solid nodules and nodular opacities with varying degrees of increased radiotracer uptake. Overall these are similar in size and distribution 03/27/2024. For example: - 2.9 cm anterior left upper lobe (3:109; SUVmax 7.9), previous cavitary component no longer apparent - 1.4 cm lateral right middle lobe (3:36; SUVmax 5.2) * Mild emphysema. Generalized bronchial wall thickening with areas of bronchiectasis. * No pleural effusion. Lymph Nodes: * Subcentimeter right hilar lymph node with mild radiotracer uptake (3:109; SUVmax 2.7). * No other radiotracer avid lymphadenopathy. Mediastinum: No radiotracer avid mass. Cardiovascular: Blood pool activity. No pericardial effusion. Normal heart size. Thoracic aortic root, aortic leaflet, and coronary artery calcifications. Chest Wall: No radiotracer avid soft tissue lesion. ABDOMEN AND PELVIS: Hepatobiliary: No radiotracer avid lesion. No measurable mass. Spleen: No radiotracer avid lesion. No splenomegaly. Pancreas: No radiotracer avid lesion. Adrenals: No radiotracer avid nodule. Urinary Tract: Physiologic radiotracer excretion in the renal collecting systems and urinary bladder. No hydronephrosis. Non-obstructing nephrolithiasis. GI Tract: * Short segment of increased radiotracer uptake in the sigmoid colon without a anatomic correlate or surrounding inflammatory changes (3:249; SUVmax 5.3). * Focal increased radiotracer uptake in the cecum anterolaterally without a clear anatomic correlate (3:235; SUVmax 5.6). * No bowel dilation. Colonic diverticulosis. Peritoneum: No radiotracer avid lesion. No ascites. Lower radiotracer in the superficial periumbilical regions probably due to prior hernia repair (3:212; SUVmax 3.1).. Lymph Nodes: No radiotracer avid lymphadenopathy. Vasculature: Blood pool activity. Vascular calcifications without an abdominal aortic aneurysm. Pelvic Organs: No radiotracer avid lesion. Portions of the pelvis are obscured anatomically by hardware streak artifact. Posterior bladder diverticula on the right. Enlarged prostate. MUSCULOSKELETAL: Bones: * No radiotracer avid lesion. No destructive lesion. Degenerative changes. * Right hip arthroplasty. Soft Tissues: No radiotracer avid lesion. IMPRESSION: PRIMARY DISEASE SITE: * Numerous metabolically active bilateral lung nodules are similar to 03/27/2024. * Dominant 2.9 cm left upper lobe nodule with resolved cavitary component. * Differential includes infectious/inflammator y and malignant etiologies. ELEANOR DISEASE: * Metabolically active subcentimeter right hilar node is probably reactive. METASTATIC DISEASE: * No metabolically active abdominopelvic or osseous metastases. ADDITIONAL FINDINGS: * Increased metabolic activity in the sigmoid colon and cecum is non-specific but commonly physiologic. Ensure colonoscopy is up-to-date. Seat Cover Cutter: [facility] Transcribe Date/Time: Apr 21 2024 8:08A Dictated by : NANDA SAMSON DO This examination was interpreted and the report reviewed and electronically s (more content not included)... Normal [facility] PET+CT Guidance for localiza tion of tumor of Skull base to mid-thigh-- W 18F-FDG Rolo 04-21-2024 IMPRESSION: PRIMARY DISEASE SITE: * Numerous metabolically active bilateral lung nodules are similar to 03/27/2024. * Dominant 2.9 cm left upper lobe nodule with resolved cavitary component. * Differential includes infectious/inflammator y and malignant etiologies. ELEANOR DISEASE: * Metabolically active subcentimeter right hilar node is probably reactive. METASTATIC DISEASE: * No metabolically active abdominopelvic or osseous metastases. ADDITIONAL FINDINGS: * Increased metabolic activity in the sigmoid colon and cecum is non-specific but commonly physiologic. Ensure colonoscopy is up-to-date. Seat Cover Cutter: [facility] Transcribe Date/Time: Apr 21 2024 8:08A Dictated by : NANDA SAMSON DO This examination was interpreted and the report reviewed and electronically signed by: NANDA SAMSON DO on Apr 21 2024 8:34AM EST [facility] * * *Final Report* * * DATE OF EXAM: Apr 21 2024 8:00AM MDP 0060 - NM PET/CT SKULL-THIGH INIT / PROCEDURE REASON: R91.8-Lung nodules * * * * Physician Interpretation * * * * EXAMINATION: BODY FDG PET-CT CLINICAL HISTORY: Indeterminate pulmonary nodule(s). EXAM CATEGORY: Initial treatment strategy. TECHNIQUE: Radiopharmaceutical was administered intravenously followed by PET imaging from the eyes to thighs. Free breathing, low dose CT of the same body region was acquired without IV contrast for attenuation correction and anatomic localization. Unenhanced imaging is limited for the evaluation of some pathology and the acquired CT was not designed to produce diagnostic CT scan quality. Physiologic/non-pathol ogic uptake in some body regions could confound or obscure some pathology. * CT Dose-Length Product (DLP): 247 mGy*cm * CT Dose Reduction Employed: Yes * Blood glucose: 95 mg/dL * Injected activity: 6.8 mCi * Uptake Time: 50 minutes * Radiopharmaceutical: P32-Ddduygmzqudvnxqnvj (FDG) COMPARISON: No previous FDG PET/CT available CORRELATION: CT 03/27/2024 RESULT: REFERENCES: FDG uptake is used as a surrogate marker for glucose metabolism. All reported standardized uptake values represent maximum SUV (SUVmax) per body weight, unless otherwise specified. SUV reference values, as follows: * Blood Pool (Descending Aorta): SUVmax 2.2 * Background Liver: SUVmax 2.7 Localizer Images: No additional findings. HEAD AND NECK: Head: No radiotracer avid lesion or mass effect in the imaged intracranial compartment. Aerodigestive Tract: No radiotracer avid lesion. Maxillary sinus mucosal thickening without increased radiotracer uptake. Lymph Nodes: No radiotracer avid lymphadenopathy. Neck Soft Tissues: No radiotracer avid thyroid nodule. CHEST: Lungs & Pleura: * Numerous bilateral solid nodules and nodular opacities with varying degrees of increased radiotracer uptake. Overall these are similar in size and distribution 03/27/2024. For example: - 2.9 cm anterior left upper lobe (3:109; SUVmax 7.9), previous cavitary component no longer apparent - 1.4 cm lateral right middle lobe (3:36; SUVmax 5.2) * Mild emphysema. Generalized bronchial wall thickening with areas of bronchiectasis. * No pleural effusion. Lymph Nodes: * Subcentimeter right hilar lymph node with mild radiotracer uptake (3:109; SUVmax 2.7). * No other radiotracer avid lymphadenopathy. Mediastinum: No radiotracer avid mass. Cardiovascular: Blood pool activity. No pericardial effusion. Normal heart size. Thoracic aortic root, aortic leaflet, and coronary artery calcifications. Chest Wall: No radiotracer avid soft tissue lesion. ABDOMEN AND PELVIS: Hepatobiliary: No radiotracer avid lesion. No measurable mass. Spleen: No radiotracer avid lesion. No splenomegaly. Pancreas: No radiotracer avid lesion. Adrenals: No radiotracer avid nodule. Urinary Tract: Physiologic radiotracer excretion in the renal collecting systems and urinary bladder. No hydronephrosis. Non-obstructing nephrolithiasis. GI Tract: * Short segment of increased radiotracer uptake in the sigmoid colon without a anatomic correlate or surrounding inflammatory changes (3:249; SUVmax 5.3). * Focal increased radiotracer uptake in the cecum anterolaterally without a clear anatomic correlate (3:235; SUVmax 5.6). * No bowel dilation. Colonic diverticulosis. Peritoneum: No radiotracer avid lesion. No ascites. Lower radiotracer in the superficial periumbilical regions probably due to prior hernia repair (3:212; SUVmax 3.1).. Lymph Nodes: No radiotracer avid lymphadenopathy. Vasculature: Blood pool activity. Vascular calcifications without an abdominal aortic aneurysm. Pelvic Organs: No radiotracer avid lesion. Portions of the pelvis are obscured anatomically by hardware streak artifact. Posterior bladder diverticula on the right. Enlarged prostate. MUSCULOSKELETAL: Bones: * No radiotracer avid lesion. No destructive lesion. Degenerative changes. * Right hip arthroplasty. Soft Tissues: No radiotracer avid lesion. [facility] Provider, [facility] - 04/21/2024 * * *Final Report* * * DATE OF EXAM: Apr 21 2024 8:00AM MDP 0060 - NM PET/CT SKULL-THIGH INIT / PROCEDURE REASON: R91.8-Lung nodules * * * * Physician Interpretation * * * * EXAMINATION: BODY FDG PET-CT CLINICAL HISTORY: Indeterminate pulmonary nodule(s). EXAM CATEGORY: Initial treatment strategy. TECHNIQUE: Radiopharmaceutical was administered intravenously followed by PET imaging from the eyes to thighs. Free breathing, low dose CT of the same body region was acquired without IV contrast for attenuation correction and anatomic localization. Unenhanced imaging is limited for the evaluation of some pathology and the acquired CT was not designed to produce diagnostic CT scan quality. Physiologic/non-pathol ogic uptake in some body regions could confound or obscure some pathology. * CT Dose-Length Product (DLP): 247 mGy*cm * CT Dose Reduction Employed: Yes * Blood glucose: 95 mg/dL * Injected activity: 6.8 mCi * Uptake Time: 50 minutes * Radiopharmaceutical: M98-Kcwnsocvfcwxvrfoyf (FDG) COMPARISON: No previous FDG PET/CT available CORRELATION: CT 03/27/2024 RESULT: REFERENCES: FDG uptake is used as a surrogate marker for glucose metabolism. All reported standardized uptake values represent maximum SUV (SUVmax) per body weight, unless otherwise specified. SUV reference values, as follows: * Blood Pool (Descending Aorta): SUVmax 2.2 * Background Liver: SUVmax 2.7 Localizer Images: No additional findings. HEAD AND NECK: Head: No radiotracer avid lesion or mass effect in the imaged intracranial compartment. Aerodigestive Tract: No radiotracer avid lesion. Maxillary sinus mucosal thickening without increased radiotracer uptake. Lymph Nodes: No radiotracer avid lymphadenopathy. Neck Soft Tissues: No radiotracer avid thyroid nodule. CHEST: Lungs & Pleura: * Numerous bilateral solid nodules and nodular opacities with varying degrees of increased radiotracer uptake. Overall these are similar in size and distribution 03/27/2024. For example: - 2.9 cm anterior left upper lobe (3:109; SUVmax 7.9), previous cavitary component no longer apparent - 1.4 cm lateral right middle lobe (3:36; SUVmax 5.2) * Mild emphysema. Generalized bronchial wall thickening with areas of bronchiectasis. * No pleural effusion. Lymph Nodes: * Subcentimeter right hilar lymph node with mild radiotracer uptake (3:109; SUVmax 2.7). * No other radiotracer avid lymphadenopathy. Mediastinum: No radiotracer avid mass. Cardiovascular: Blood pool activity. No pericardial effusion. Normal heart size. Thoracic aortic root, aortic leaflet, and coronary artery calcifications. Chest Wall: No radiotracer avid soft tissue lesion. ABDOMEN AND PELVIS: Hepatobiliary: No radiotracer avid lesion. No measurable mass. Spleen: No radiotracer avid lesion. No splenomegaly. Pancreas: No radiotracer avid lesion. Adrenals: No radiotracer avid nodule. Urinary Tract: Physiologic radiotracer excretion in the renal collecting systems and urinary bladder. No hydronephrosis. Non-obstructing nephrolithiasis. GI Tract: * Short segment of increased radiotracer uptake in the sigmoid colon without a anatomic correlate or surrounding inflammatory changes (3:249; SUVmax 5.3). * Focal increased radiotracer uptake in the cecum anterolaterally without a clear anatomic correlate (3:235; SUVmax 5.6). * No bowel dilation. Colonic diverticulosis. Peritoneum: No radiotracer avid lesion. No ascites. Lower radiotracer in the superficial periumbilical regions probably due to prior hernia repair (3:212; SUVmax 3.1).. Lymph Nodes: No radiotracer avid lymphadenopathy. Vasculature: Blood pool activity. Vascular calcifications without an abdominal aortic aneurysm. Pelvic Organs: No radiotracer avid lesion. Portions of the pelvis are obscured anatomically by hardware streak artifact. Posterior bladder diverticula on the right. Enlarged prostate. MUSCULOSKELETAL: Bones: * No radiotracer avid lesion. No destructive lesion. Degenerative changes. * Right hip arthroplasty. Soft Tissues: No radiotracer avid lesion. IMPRESSION IMPRESSION: PRIMARY DISEASE SITE: * Numerous metabolically active bilateral lung nodules are similar to 03/27/2024. * Dominant 2.9 cm left upper lobe nodule with resolved cavitary component. * Differential includes infectious/inflammator y and malignant etiologies. ELEANOR DISEASE: * Metabolically active subcentimeter right hilar node is probably reactive. METASTATIC DISEASE: * No metabolically active abdominopelvic or osseous metastases. ADDITIONAL FINDINGS: * Increased metabolic activity in the sigmoid colon and cecum is non-specific but commonly physiologic. Ensure colonoscopy is up-to-date. Transcript (more content not included)... [facility] Radiology Study observation (narrative) [facility]+CT Guidance for localiza tion of tumor of Skull base to mid-thigh-- W 18F-FDG IVOrdered By: [facility] Provider on 04-21-2024 [facility] CTA Pulmonary arteries for p ulmonary embolus W contrast Rolo 03-27-2024 IMPRESSION: 1. No CT evidence of pulmonary embolism, no signs of right heart strain. 2. A dominant 3 cm mass is present in the left upper lobe with pleural tracts, worrisome for primary malignancy versus inflammatory changes in the appropriate clinical context. Other multiple nodularities bilaterally also possibly inflammatory versus metastatic disease. Recommend correlation with prior studies if available, short-term follow-up after appropriate medical treatment, possible PET/CT and or biopsy. 3. No mediastinal or hilar lymphadenopathy. Seat Cover Cutter: [facility] Transcribe Date/Time: Mar 27 2024 10:30A Dictated by : GRACIELA ZELAYA MD This examination was interpreted and the report reviewed and electronically signed by: GRACIELA ZELAYA MD on Mar 27 2024 10:46AM [facility] DIVISION OF RADIOLOGY * * *Final Report* * * DATE OF EXAM: Mar 27 2024 10:16AM [facility] 0540 - CT CHEST W IVCON PE / PROCEDURE REASON: Chest pain, unspecified type * * * * Physician Interpretation * * * * EXAMINATION: CHEST CT WITH CONTRAST (PULMONARY EMBOLISM PROTOCOL) CLINICAL HISTORY: Chest pain Technique: Spiral CT acquisition of the chest from the thoracic inlet to the upper abdomen following IV contrast. Axial 1 and 3 mm thick slices plus coronal and sagittal reformatted images. MQ: CTCP_5 Contrast: 100 mL Omnipaque [address] Radiation dose: Integrated Dose-length product (DLP) for this visit = 305 mGy*cm CT Dose Reduction Employed: Automated exposure control(AEC) and iterative recon Comparison: Chest radiograph 03/24/2024 and prior RESULT: Limitations: None. Evaluation for thromboembolic disease: - Right heart chambers: No thromboembolic disease. - Main pulmonary arteries: No thromboembolic disease. - Lobar pulmonary arteries: No thromboembolic disease. - Segmental pulmonary arteries: No thromboembolic disease. - Subsegmental pulmonary arteries: No thromboembolic disease. - Additional pulmonary artery findings: The main pulmonary artery is mildly enlarged measuring up to 3.1 cm suggesting pulmonary artery hypertension. Lines, tubes, and devices: None. Lung parenchyma and airways: Severe emphysematous changes, increased retrosternal airspace and flattening of the diaphragms. Diffuse peribronchial thickening, endobronchial secretions in the upper lungs reflecting mucoid impaction. Peribronchial tree-in-bud nodularities in the posterior right lung base reflecting bronchiolitis. A 3.1 cm mass in the anterior left upper lobe demonstrate mild dilation, associated bronchiectasis and pleural tracts corresponding to a much less dense opacity on the recent radiograph might represent inflammatory/infectiou s process however worrisome for primary lung malignancy. There are other peribronchial nodularities throughout suggesting multifocal inflammation versus metastases including: * 1.2 cm nodule in the anterior right upper lobe (7, 92) * 1.3 cm nodule in the anterior right upper lobe (7, 138) * 2.1 cm nodularity in the anterior medial basal left lower lobe (7, 201) * Confluent nodularities in the lateral right middle lobe measuring up to 1.9 cm (7, 224) Increased AP diameter of the trachea suggesting chronic obstructive physiology. Pleural space: No pleural effusion. No pleural thickening. Lower neck, lymph nodes, and mediastinum: The imaged thyroid gland is normal. No axillary or supraclavicular lymphadenopathy. Scattered small lymph nodes are present in the mediastinum. No hilar lymphadenopathy. Few calcified lymph nodes in the subcarinal region and left hilum are likely related to prior granulomatous infection. Heart, pericardium, and thoracic vessels: The thoracic aorta is normal in caliber. The right brachiocephalic and left common carotid arteries arise from the aorta as a common origin, a normal variant. The cardiac chambers are normal in size, moderate aortic valvular calcifications noted.. Moderate coronary artery atherosclerotic calcifications are noted, although the study is not optimized for coronary assessment. No pericardial effusion or thickening. Bones and soft tissues: No acute osseous abnormalities. Mild thoracolumbar spondylosis, mild anterior wedge deformity of L1 without retropulsion of bone fragments. A 0.6 cm sclerotic focus in the vertebral body of T7 likely represent a bone island (1023 HU). Upper abdomen: Partially imaged 0.6 cm nonobstructing calculus in the superior left renal pole. Small calcified granulomas in the spleen. Localizer images: No additional findings DIVISION OF RADIOLOGY Provider, [facility] - 03/27/2024 * * *Final Report* * * DATE OF EXAM: Mar 27 2024 10:16AM [facility] 0540 - CT CHEST W IVCON PE / PROCEDURE REASON: Chest pain, unspecified type * * * * Physician Interpretation * * * * EXAMINATION: CHEST CT WITH CONTRAST (PULMONARY EMBOLISM PROTOCOL) CLINICAL HISTORY: Chest pain Technique: Spiral CT acquisition of the chest from the thoracic inlet to the upper abdomen following IV contrast. Axial 1 and 3 mm thick slices plus coronal and sagittal reformatted images. MQ: CTCP_5 Contrast: 100 mL Omnipaque [address] Radiation dose: Integrated Dose-length product (DLP) for this visit = 305 mGy*cm CT Dose Reduction Employed: Automated exposure control(AEC) and iterative recon Comparison: Chest radiograph 03/24/2024 and prior RESULT: Limitations: None. Evaluation for thromboembolic disease: - Right heart chambers: No thromboembolic disease. - Main pulmonary arteries: No thromboembolic disease. - Lobar pulmonary arteries: No thromboembolic disease. - Segmental pulmonary arteries: No thromboembolic disease. - Subsegmental pulmonary arteries: No thromboembolic disease. - Additional pulmonary artery findings: The main pulmonary artery is mildly enlarged measuring up to 3.1 cm suggesting pulmonary artery hypertension. Lines, tubes, and devices: None. Lung parenchyma and airways: Severe emphysematous changes, increased retrosternal airspace and flattening of the diaphragms. Diffuse peribronchial thickening, endobronchial secretions in the upper lungs reflecting mucoid impaction. Peribronchial tree-in-bud nodularities in the posterior right lung base reflecting bronchiolitis. A 3.1 cm mass in the anterior left upper lobe demonstrate mild dilation, associated bronchiectasis and pleural tracts corresponding to a much less dense opacity on the recent radiograph might represent inflammatory/infectiou s process however worrisome for primary lung malignancy. There are other peribronchial nodularities throughout suggesting multifocal inflammation versus metastases including: * 1.2 cm nodule in the anterior right upper lobe (7, 92) * 1.3 cm nodule in the anterior right upper lobe (7, 138) * 2.1 cm nodularity in the anterior medial basal left lower lobe (7, 201) * Confluent nodularities in the lateral right middle lobe measuring up to 1.9 cm (7, 224) Increased AP diameter of the trachea suggesting chronic obstructive physiology. Pleural space: No pleural effusion. No pleural thickening. Lower neck, lymph nodes, and mediastinum: The imaged thyroid gland is normal. No axillary or supraclavicular lymphadenopathy. Scattered small lymph nodes are present in the mediastinum. No hilar lymphadenopathy. Few calcified lymph nodes in the subcarinal region and left hilum are likely related to prior granulomatous infection. Heart, pericardium, and thoracic vessels: The thoracic aorta is normal in caliber. The right brachiocephalic and left common carotid arteries arise from the aorta as a common origin, a normal variant. The cardiac chambers are normal in size, moderate aortic valvular calcifications noted.. Moderate coronary artery atherosclerotic calcifications are noted, although the study is not optimized for coronary assessment. No pericardial effusion or thickening. Bones and soft tissues: No acute osseous abnormalities. Mild thoracolumbar spondylosis, mild anterior wedge deformity of L1 without retropulsion of bone fragments. A 0.6 cm sclerotic focus in the vertebral body of T7 likely represent a bone island (1023 HU). Upper abdomen: Partially imaged 0.6 cm nonobstructing calculus in the superior left renal pole. Small calcified granulomas in the spleen. Localizer images: No additional findings IMPRESSION IMPRESSION: 1. No CT evidence of pulmonary embolism, no signs of right heart strain. 2. A dominant 3 cm mass is present in the left upper lobe with pleural tracts, worrisome for primary malignancy versus inflammatory changes in the appropriate clinical context. Other multiple nodularities bilaterally also possibly inflammatory versus metastatic disease. Recommend correlation with prior studies if available, short-term follow-up after appropriate medical treatment, possible PET/CT and or biopsy. 3. No mediastinal or hilar lymphadenopathy. Seat Cover Cutter: NESTOR Transcribe Date/Time: Mar 27 2024 10:30A Dictated by : GRACIELA ZELAYA MD This examination was interpreted and the report reviewed and electronically signed by: GRACIELA ZELAYA MD on Mar 27 2024 10:46AM EST [facility] Radiology Study observation (narrative) [facility] CTA Pulmonary arteries for p ulmonary embolus W contrast IVOrdered By: [facility] Provider on 03-27-2024 [facility] No Panel Informationon 03-[address] [address] Test Date: 2024-03-24 Pat Name: BEATRIS QUINN Department: Room: Gender: Male [employer]: : 1950 Requested By: Order Number: [id number] Reading MD: Annette Marrero MD Interpretive Statements Current ATS/ERS acceptability and repeatability standards for spirometry met. Start of test and EOFE criteria met. 4 puffs Albuterol (360 mcg) delivered by MDI via holding chamber. HR pre = 64/min, HR post = 72/min. Medications and Allergies were reviewed for possible drug interactions per policy. No contraindications or sensitivities were noted. Meds taken: Albuterol 15 and trelegy 3 hours before testing. Current ATS/ERS repeatability standards for DLCO met with 2 maneuvers. DLCO is hemoglobin corrected. Hemoglobin obtained from [facility] lab on 03/11/2024. Breath hold time for DLCO was 12.5 and 12.2 sec. / LF IMPRESSION: Spirometry indicates very severe obstruction. Negative bronchodilator response. The diffusing capacity (uncorrected for hemoglobin) is reduced. The reduced kCO (DLCO/VA) reflects an alteration of the normal transfer/diffusion of CO from the alveolar regions to the blood. Clinical correlation recommended. Electronically Signed On 03-24-2024 14:35:26 EDT by Annette Marrero MD ID: [id number] Name: BEATRIS QUINN Race: White Ht: 64.92 in Wt: 123.24 lbs Age: 73 Gender: Male : 1950 Dx: Shortness of breath Smoking Hx: Non-smoker Doctor: ANNETTE MARRERO Test Date: 03/24/2024 Site: B Tech: Garcia Muir PRE-BRONCH POST-BRONCH Pre LLN Pred ULN %Pred Post %Pred %Chg SPIROMETRY FVC (L) 3.05 2.40 3.23 4.08 94 3.31 102 7 FEV1 (L) 0.68 1.80 2.47 3.10 27 0.73 29 2 FEV1/FVC 0.22 0.64 0.78 0.89 28 0.22 28 0 PEF L/s (L/sec) 2.42 4.93 6.92 8.91 34 2.43 35 0 FEF50 (L/sec) 0.26 0.93 3.06 5.18 8 0.35 11 35 FIF50 (L/sec) 2.91 2.37 -18 FEF50/FIF50 0.09 90-100 0.15 66 FIVC (L) 2.96 2.91 -1 GZR49-39 (L/sec) 0.25 0.84 2.02 3.71 12 0.30 14 19 Time (sec) 15.35 15.86 3 FET PEF (sec) 0.04 0.03 -8 RUI (L) 0.01 0.01 48 Vol Extrap % (%) 0 0 37 LUNG DIFFUSION DLCOunc (ml/min/mmHg) 11.55 13.34 23.28 33.21 49 VA (L) 4.34 4.47 5.84 7.21 74 DLunc/VA (ml/min/mmHg/L) 2.66 2.92 4.12 5.33 64 DLCOcor (ml/min/mmHg) 12.13 13.34 23.28 33.21 52 DLcor/VA (ml/min/mmHg/L) 2.80 3.99 70 BHT (sec) 12.41 IVC (L) 3.15 Hgb (gm/dL) 13.00 12-18 Comments: Current ATS/ERS acceptability and repeatability standards for spirometry met. Start of test and EOFE criteria met. 4 puffs Albuterol (360 mcg) delivered by MDI via holding chamber. HR pre = 64/min, HR post = 72/min. Medications and Allergies were reviewed for possible drug interactions per policy. No contraindications or sensitivities were noted. Meds taken: Albuterol 15 and trelegy 3 hours before testing. Current ATS/ERS repeatability standards for DLCO met with 2 maneuvers. DLCO is hemoglobin corrected. Hemoglobin obtained from [facility] lab on 03/11/2024. Breath hold time for DLCO was 12.5 and 12.2 sec. / LF PULMONARY FUNCTION LAB [facility] SPIROMETRY WITH DILATOR IF O BSTRUCTEDon 03-24-2024 DLCO (ml/min/mmHg) 11.55 ml/min/mmHg [facility] DLCO/VA (ml/min/mmHg/L) 2.66 ml/m in/mmHg /L [facility] DLCOcor (ml/min/mmHg) 12.13 ml/min/mmHg Cl [facility] [id number]% POST (L/S) 0.30 L/S [facility] ZCS82-22% PRE (L/S) 0.25 L/S [facility] FEV1 PRE (L) 0.68 L [facility] FEV1/FVC POST (%) 22 % [facility] FEV1/FVC PRE (%) 22 % [facility] FEV1_POST (L) 0.73 L [facility] FVC POST (L) 3.31 L [facility] FVC PRE (L) 3.05 L [facility] PEF POST (L/S) 2.43 L/S [facility] PEF PRE (L/S) 2.42 L/S [facility] VA (L) 4.34 L [facility] XR Chest PA and Lateralon IMPRESSION: 1. Nodular opacities in each lung have been thought to most likely be due to infectious etiology.. Neoplasm is not completely excluded. 2. Prominence of lung markings throughout each lung could represent some edema or infiltrate. Although this may be just differences in technique due to different penetrations the films. Seat Cover Cutter: PSCB Transcribe Date/Time: Mar 24 2024 1:44P Dictated by : JANINE HILLIARD DO This examination was interpreted and the report reviewed and electronically signed by: JANINE HILLIARD DO on Mar 24 2024 2:21PM [facility] RADIOLOGY * * *Final Report* * * DATE OF EXAM: Mar 24 2024 10:54AM [facility] 5291 - XR CHEST 2V FRONTAL/LAT / PROCEDURE REASON: J43.9-Pulmonary emphysema, unspecified emphysema type (HCC) * * * * Physician Interpretation * * * * EXAMINATION: CHEST RADIOGRAPH (2 VIEW FRONTAL & LATERAL) CLINICAL HISTORY: Pulmonary emphysema, unspecified emphysema type (HCC) MQ: XC2_6 EXAM DATE/TIME: 03/24/2024 10:54 AM COMPARISON: 03/11/2024 12/15/2023 2 RESULT: Lines, tubes, and devices: None. Lungs and pleura: * Nodular densities RIGHT lower lung field into the costophrenic angle likely present previously but not as well seen. * Also smaller nodular densities project over the RIGHT upper lung field. * Nodular opacity which was new just lateral to the LEFT hilum is again noted. * Increase in the lung markings throughout each lung which may represent infiltrates or edema Cardiomediastinal silhouette: Normal cardiomediastinal silhouette. Bones and soft tissues: Unremarkable. [facility] Provider, Za Liu - 03/24/2024 * * *Final Report* * * DATE OF EXAM: Mar 24 2024 10:54AM [facility] 5291 - XR CHEST 2V FRONTAL/LAT / PROCEDURE REASON: J43.9-Pulmonary emphysema, unspecified emphysema type (HCC) * * * * Physician Interpretation * * * * EXAMINATION: CHEST RADIOGRAPH (2 VIEW FRONTAL & LATERAL) CLINICAL HISTORY: Pulmonary emphysema, unspecified emphysema type (HCC) MQ: XC2_6 EXAM DATE/TIME: 03/24/2024 10:54 AM COMPARISON: 03/11/2024 12/15/2023 2 RESULT: Lines, tubes, and devices: None. Lungs and pleura: * Nodular densities RIGHT lower lung field into the costophrenic angle likely present previously but not as well seen. * Also smaller nodular densities project over the RIGHT upper lung field. * Nodular opacity which was new just lateral to the LEFT hilum is again noted. * Increase in the lung markings throughout each lung which may represent infiltrates or edema Cardiomediastinal silhouette: Normal cardiomediastinal silhouette. Bones and soft tissues: Unremarkable. IMPRESSION IMPRESSION: 1. Nodular opacities in each lung have been thought to most likely be due to infectious etiology.. Neoplasm is not completely excluded. 2. Prominence of lung markings throughout each lung could represent some edema or infiltrate. Although this may be just differences in technique due to different penetrations the films. Seat Cover Cutter: NESTOR Transcribe Date/Time: Mar 24 2024 1:44P Dictated by : JANINE HILLIARD DO This examination was interpreted and the report reviewed and electronically signed by: JANINE HILLIARD DO on Mar 24 2024 2:21PM EST [facility] Radiology Study observation (narrative) Herve [facility] XR Chest PA and LateralOrder ed By: [facility] Provider on 03-24-2024 [facility] Absolute lymphocyte countOrd ered By: Anirudh Thompson on 12-18-2023 Lymphocytes Auto (Unsp spec) [#/Vol] 0.30 10*3/uL 0.83-4.51 [facility] Automated lymphocyte count a s percentage of total leukocytesOrdered By: Anirudh Thompson on 12-18-2023 Lymphocytes/100 WBC Auto (Unsp spec) 1.9 % 19-41 [facility] Basophil percentageOrdered B y: Anirudh Thompson on 12-18-2023 Basophils/100 WBC (Bld) 0.1 % 0-1 [facility] Chloride [Moles/Vol] 96 mmol/L 98-107 [facility] Eosinophils/100 WBC (Bld) 0.0 % 0-5 [facility] Glucose [Mass/Vol] 193 mg/dL 74-106 [facility] Comment on above: Fasting Glucose resu lt greater than or equal to 126 mg/dL suggests DIABETES MELLITUS per A.D.A. criteria. Hemoglobin (Bld) [Mass/Vol] 14.4 g/dL 13.0-16.5 [facility] Monocytes/100 WBC (Bld) 2.0 % 0-10 [facility] Neutrophils (Bld) [#/Vol] 15.4 10*3/uL 2.0-7.7 [facility] Neutrophils/100 WBC (Bld) 95.4 % 47-70 [facility] Potassium [Moles/Vol] 4.2 mmol/L 3.5-5.1 [facility] Sodium [Moles/Vol] 136 mmol/L 136-145 [facility] WBC (Bld) [#/Vol] 16.2 10*3/uL 4.4-11.0 [facility] Determination of erythrocyte mean corpuscular volume (MCV)Ordered By: Anirudh Thompson on 12-18-2023 MCV (RBC) [Entitic vol] 85.9 fL 80-94 [facility] Erythrocyte distribution wid th ratioOrdered By: Anirudh Thompson on 12-18-2023 Erythrocyte distribution width (RBC) [Ratio] 14.2 % 11.6-14.6 [facility] Erythrocyte distribution wid th standard deviationOrdered By: Anirudh Thompson on 12-18-2023 Erythrocyte distribution width (RBC) [Entitic vol] 44.6 fL 35.1-43.9 [facility] Hematocrit Auto (Bld) [Volum e fraction]Ordered By: Anirudh Thompson on 12-18-2023 Hematocrit (Bld) [Volume fraction] 45.1 % 40-54 [facility] Immature granulocytes/100 WB C Auto (Bld)Ordered By: Anirudh Thompson on 12-18-2023 Immature granulocytes/100 WBC (Bld) 0.600 % 0.0-0.9 [facility] Comment on above: IG% - Immature Granu locytes (promyelocytes, myelocytes and metamyelocytes) > 1% indicates that a LEFT SHIFT is Present. Laboratory - Chemistry and C hemistry - challengeOrdered By: Anirudh Thompson on 12-18-2023 CO2 [Moles/Vol] 35.0 mmol/L 21.0-32.0 [facility] Urea nitrogen/Creatinine [Mass ratio] 27.4 mg/mg 10-20 [facility] Laboratory - Hematology and Cell countsOrdered By: Anirudh Thompson on 12-18-2023 MCH (RBC) [Entitic mass] 27.4 pg 27.0-32.0 [facility] MCHC (RBC) [Mass/Vol] 31.9 g/dL 32-36 [facility] Nucleated RBC/100 WBC (Bld) [Ratio] 0 % 0-5 [facility] Platelet mean volume (Bld) [Entitic vol] 9.7 fL 6.2-12.0 [facility] Platelets (Bld) [#/Vol] 398 10*3/uL 150-450 [facility] No Panel InformationOrdered By: Anirudh Thompson on 12-18-2023 Estimated Creatinine Clearance Calc 63.19 ml/min [facility] Estimated GFR (MDRD) Amer 115 mL/min >60 [facility] Comment on above: GFR Calc Estimated GFR (MDRD) Non-Af Amer 95 mL/min >60 [facility] Comment on above: Non- GFR Calc RBC Auto (Bld) [#/Vol]Ordere d By: Anirudh Thompson on 12-18-2023 RBC (Bld) [#/Vol] 5.25 10*6/uL 4.6-6.2 [facility] Serum or plasma calcium christiana urement (mass/volume)Ordered By: Anirudh Thompson on 12-18-2023 Calcium [Mass/Vol] 9.2 mg/dL 8.5-10.1 [facility] Serum or plasma creatinine m easurement (mass/volume)Ordered By: Anirudh Thompson on 12-18-2023 Creatinine [Mass/Vol] 0.84 mg/dL 0.70-1.30 [facility] Comment on above: The validity of the calculated GFR & GFRAA in patients over 70 years has not been determined. Clinical correlation is essential. Serum or plasma urea nitroge n measurement (mass/volume)Ordered By: Anirudh Thompson on 12-18-2023 Urea nitrogen [Mass/Vol] 23 mg/dL 7-18 [facility] Thin prep Papanicolaou smear with manual screeningOrdered By: Anirudh Donna on 12-18-2023 Thin prep Papanicolaou smear with manual screening 5 5-15 [facility] Absolute lymphocyte countOrd ered By: Migel Iqbal on 12-17-2023 Lymphocytes Auto (Unsp spec) [#/Vol] 0.69 10*3/uL 0.83-4.51 [facility] Activated partial thrombopla stin time (aPTT) in platelet poor plasma by coagulation aOrdered By: Migel Iqbal on 12-17-2023 aPTT Coag (PPP) [Time] 28.0 s 24.1-36.2 [facility] Automated lymphocyte count a s percentage of total leukocytesOrdered By: Migel Iqbal on 12-17-2023 Lymphocytes/100 WBC Auto (Unsp spec) 3.5 % 19-41 [facility] Basophil percentageOrdered B y: Migel Iqbal on 12-17-2023 Basophil percentage 0 SEEN /hpf 0-5 [facility] Basophils/100 WBC (Bld) 0.2 % 0-1 [facility] Bilirubin [Mass/Vol] 0.80 mg/dL 0.20-1.00 [facility] Comment on above: For patients on eltr ombopag therapy, use of Dimension [place] TBIL is not recommended. Chloride [Moles/Vol] 97 mmol/L 98-107 [facility] Eosinophils/100 WBC (Bld) 0.1 % 0-5 [facility] Glucose [Mass/Vol] 104 mg/dL 74-106 [facility] Comment on above: Fasting Glucose resu lt from 100 to 125 mg/dL suggests IMPAIRED HOMEOSTASIS per A.D.A. criteria. Hemoglobin (Bld) [Mass/Vol] 15.3 g/dL 13.0-16.5 [facility] Lactate [Moles/Vol] 0.9 mmol/L 0.4-2.0 [facility] Monocytes/100 WBC (Bld) 9.6 % 0-10 [facility] Neutrophils (Bld) [#/Vol] 17.2 10*3/uL 2.0-7.7 [facility] Neutrophils/100 WBC (Bld) 85.9 % 47-70 [facility] Potassium [Moles/Vol] 4.1 mmol/L 3.5-5.1 [facility] Protein [Mass/Vol] 7.1 g/dL 6.4-8.2 [facility] Sodium [Moles/Vol] 138 mmol/L 136-145 [facility] WBC (Bld) [#/Vol] 20.0 10*3/uL 4.4-11.0 [facility] Bilirubin Test strip Ql (U)O rdered By: Migel Iqbal on 12-17-2023 Bilirubin Ql (U) Negative Negative [facility] Blood manual differential co mment interpretation (narrative result)Ordered By: Migel Iqbal on 12-17-2023 Manual differential comment Geraldo (Bld) [Interp] COMMENT [facility] Comment on above: MONOCYTOSIS. Culture, urineOrdered By: Micky Iqbal on 12-17-2023 Bacteria identified Cx Nom (U) Culture exhibits no growth. [facility] Determination of erythrocyte mean corpuscular volume (MCV)Ordered By: Migel Iqbal on 12-17-2023 MCV (RBC) [Entitic vol] 86.5 fL 80-94 [facility] Erythrocyte distribution wid th ratioOrdered By: Migel Iqbal on 12-17-2023 Erythrocyte distribution width (RBC) [Ratio] 14.2 % 11.6-14.6 [facility] Erythrocyte distribution wid th standard deviationOrdered By: Migel Iqbal on 12-17-2023 Erythrocyte distribution width (RBC) [Entitic vol] 45.5 fL 35.1-43.9 [facility] Gram stain for investigation of transfusion reactionOrdered By: Migel Iqbal on 12-17-2023 Microscopic observation Gram stain Nom (Unsp spec) [facility] Hematocrit Auto (Bld) [Volum e fraction]Ordered By: Migel Iqbal on 12-17-2023 Hematocrit (Bld) [Volume fraction] 47.9 % 40-54 [facility] Immature granulocytes/100 WB C Auto (Bld)Ordered By: Migel Iqbal on 12-17-2023 Immature granulocytes/100 WBC (Bld) 0.700 % 0.0-0.9 [facility] Comment on above: IG% - Immature Granu locytes (promyelocytes, myelocytes and metamyelocytes) > 1% indicates that a LEFT SHIFT is Present. Ketones Test strip Ql (U)Ord ered By: Migel Iqbal on 12-17-2023 Ketones Ql (U) 5 mg/dl Negative [facility] Laboratory - Chemistry and C hemistry - challengeOrdered By: Migel Iqbal on 12-17-2023 Albumin/Globulin [Mass ratio] 0.7 {ratio} 0.9-2.4 [facility] ALP [Catalytic activity/Vol] 86 U/L 45-117 [facility] ALT [Catalytic activity/Vol] 18 U/L 16-61 [facility] CO2 [Moles/Vol] 37.0 mmol/L 21.0-32.0 [facility] Globulin (S) [Mass/Vol] 4.2 g/dL 2.2-4.2 [facility] Urea nitrogen/Creatinine [Mass ratio] 24.5 mg/mg 10-20 [facility] Laboratory - CoagulationOrde red By: Migel Iqbal on 12-17-2023 INR Coag (Bld) [Relative time] 1.0 {INR} [facility] PT Coag (PPP) [Time] 13.0 s 11.7-14.9 [facility] Laboratory - Hematology and Cell countsOrdered By: Migel Iqbal on 12-17-2023 MCH (RBC) [Entitic mass] 27.6 pg 27.0-32.0 [facility] MCHC (RBC) [Mass/Vol] 31.9 g/dL 32-36 [facility] Nucleated RBC/100 WBC (Bld) [Ratio] 0 % 0-5 [facility] Platelet mean volume (Bld) [Entitic vol] 9.8 fL 6.2-12.0 [facility] Platelets (Bld) [#/Vol] 385 10*3/uL 150-450 [facility] Mucus LM Ql (Urine sed)Order ed By: Migel Iqbal on 12-17-2023 Mucus Ql (Urine sed) 0 SEEN /hpf [facility] Nitrite Test strip Ql (U)Ord ered By: Migel Iqbal on 12-17-2023 Nitrite Ql (U) Negative Negative [facility] No Panel InformationOrdered By: Migel Iqbal on 12-17-2023 Urine RBC 0-5 SEEN /hpf 0-5 [facility] Estimated Creatinine Clearance Calc 68.47 ml/min [facility] Estimated GFR (MDRD) Amer 144 mL/min >60 [facility] Comment on above: GFR Calc Estimated GFR (MDRD) Non-Af Amer 119 mL/min >60 [facility] Comment on above: Non- GFR Calc Protein Test strip Ql (U)Ord ered By: Migel Iqbal on 12-17-2023 Protein Ql (U) 30 mg/dl Negative [facility] RBC Auto (Bld) [#/Vol]Ordere d By: Migel Iqbal on 12-17-2023 RBC (Bld) [#/Vol] 5.54 10*6/uL 4.6-6.2 [facility] Review by pathologistOrdered By: Migel Iqbal on 12-17-2023 Pathologist review Geraldo (Unsp spec) [Interp] Xin españa [facility] Pathologist review Geraldo (Unsp spec) [Interp] Reviewed [facility] Comment on above: Previous reported re sult: Xin españa Edited by: SARAH on 12/19/23:0918Neutrophilic leukocytosis.Clinical correlation necessary.Desmond Camacho M.D. 12/19/23 AMENDED REPORT 12/19/23 0918 PATH REV previously reported as: Xin españa Serum or plasma calcium christiana urement (mass/volume)Ordered By: Migel Iqbal on 12-17-2023 Calcium [Mass/Vol] 9.1 mg/dL 8.5-10.1 [facility] Serum or plasma creatinine m easurement (mass/volume)Ordered By: Migel Iqbal on 12-17-2023 Creatinine [Mass/Vol] 0.69 mg/dL 0.70-1.30 [facility] Comment on above: The validity of the calculated GFR & GFRAA in patients over 70 years has not been determined. Clinical correlation is essential. Serum or plasma urea nitroge n measurement (mass/volume)Ordered By: Migel Iqbal on 12-17-2023 Urea nitrogen [Mass/Vol] 17 mg/dL 7-18 [facility] Squamous epithelial cells de tection in urine sediment by light microscopyOrdered By: Migel Iqbal on 12-17-2023 Epithelial cells.squamous LM Ql (Urine sed) 0 SEEN /hpf 0-5 [facility] Thin prep Papanicolaou smear with manual screeningOrdered By: Migel Iqbal on 12-17-2023 Thin prep Papanicolaou smear with manual screening 2.9 g/dL 3.2-5.0 [facility] Thin prep Papanicolaou smear with manual screening 18 U/L 15-37 [facility] Thin prep Papanicolaou smear with manual screening 4 5-15 [facility] Urine blood detectionOrdered By: Migel Iqbal on 12-17-2023 RBC Ql (U) 25 /ul Negative [facility] Urine clarityOrdered By: Hernandez Iqbal on 12-17-2023 Clarity (U) Clear Clear [facility] Urine color determinationOrd ered By: Migel Iqbal on 12-17-2023 Color (U) Yellow Yellow [facility] Urine glucose detectionOrder ed By: Migel Iqbal on 12-17-2023 Glucose Ql (U) Normal mg/dl Normal [facility] Urine leukocyte esterase det ection by dipstickOrdered By: Migel Iqbal on 12-17-2023 Leukocyte esterase Test strip Ql (U) Negative Negative [facility] Urine pHOrdered By: Migel eagle on 12-17-2023 pH (U) 6.5 [pH] 5.0 - 8.0 [facility] Urine sediment bacteria coun t by microscopy (number/high power field)Ordered By: Migel Iqbal on 12-17-2023 Bacteria LM.HPF (Urine sed) [#/Area] 0 /[HPF] None Seen [facility] Urine specific gravity measu rementOrdered By: Migel Iqbal on 12-17-2023 Specific gravity (U) [Rel density] 1.010 1.002-1.030 [facility] Urine urobilinogen measureme ntOrdered By: Migel Iqbal on 12-17-2023 Urobilinogen Ql (U) Normal mg/dl Normal [facility] Basic metabolic 2000 panelon 12-15-2023 Anion gap [Moles/Vol] 5 mmol/L Normal 5-16 [facility] Comment on above: Order Comment: Speci men Type: BLOOD SPECIMEN Ordering Facility: [facility] Address: [address] [place] [address] Performed By: #### 2 4321-2, 49119-1 #### [facility] CLIA [id number] [address] [place] [address] [place] Calcium [Mass/Vol] 9.7 mg/dL Normal 8.5-10.5 [facility] Comment on above: Order Comment: Speci men Type: BLOOD SPECIMEN Ordering Facility: [facility] Address: [address] [place] [address] Performed By: #### 2 4321-2, 95173-9 #### [facility] CLIA [id number] [address] [place] [address] [place] Chloride [Moles/Vol] 102 mmol/L Normal 98-107 [facility] Comment on above: Order Comment: Speci men Type: BLOOD SPECIMEN Ordering Facility: [facility] Address: [address] [place] [address] Performed By: #### 2 4321-2, 88562-5 #### [facility] CLIA [id number] [address] [place], [place] [address] [place] CO2 [Moles/Vol] 31 mmol/L Normal 21-32 [facility] Comment on above: Order Comment: Speci men Type: BLOOD SPECIMEN Ordering Facility: [facility] Address: [address] [place] [address] Performed By: #### 2 4321-2, 47899-9 #### [facility] CLIA [id number] [address] [place], [place] [address] [place] Creatinine [Mass/Vol] 0.72 mg/dL Normal 0.50-1.40 [facility] Comment on above: Order Comment: Speci men Type: BLOOD SPECIMEN Ordering Facility: [facility] Address: [address] [place] [address] Result Comment: Ruthie ents receiving either N-Acetylcysteine (NAC) or Metamizole prior to venipuncture, may have falsely depressed results. Performed By: #### 2 4321-2, 12099-4 #### [facility] CLIA [id number] [address] [place] [address] [place] Creatinine and Glomerular filtration rate.predicted panel (S/P/Bld) 97 mL/min/1.73m??? Normal >=60 [facility] Comment on above: Order Comment: Haylee russo Type: BLOOD SPECIMEN Ordering Facility: [facility] Address: [address] [place] [address] Result Comment: Lata mated Glomerular Filtration Rate (eGFR) is calculated using the 2020 CKD-EPI creatinine equation. This equation utilizes serum creatinine, sex, and age as parameters. The creatinine assay has traceable calibration to isotope dilution-mass spectrometry. Refer to KDIGO guidelines for clinical interpretation. In patients with unstable renal function, e.g. those with acute kidney injury, the eGFR may not accurately reflect actual GFR. Performed By: #### 2 4321-2, 08125-2 #### [facility] CLIA [id number] [address] [place], [place] [address] [place] Glucose [Mass/Vol] 197 mg/dL High 70-100 [facility] Comment on above: Order Comment: Haylee russo Type: BLOOD SPECIMEN Ordering Facility: [facility] Address: [address] [place] [address] Result Comment: The [place] [employer] (ADA) provides guidance for cutoff values for fasting glucose and random glucose. The ADA defines fasting as no caloric intake for at least 8 hours. Fasting plasma glucose results between 100 to 125 mg/dL indicate increased risk for diabetes (prediabetes). Fasting plasma glucose results greater than or equal to 126 mg/dL meet the criteria for diagnosis of diabetes. In the absence of unequivocal hyperglycemia, results should be confirmed by repeat testing. In a patient with classic symptoms of hyperglycemia or hyperglycemic crisis, random plasma glucose results greater than or equal to 200 mg/dL meet the criteria for diagnosis of diabetes. Reference: Standards of Medical Care in Diabetes 2016, [place] [employer]. Diabetes Care. 2016.39(Suppl 1). Results may be falsely elevated after the administration of Sulfapyridine. Results may be falsely depressed after the administration of Sulfasalazine. Performed By: #### 2 4321-2, 80061-2 #### [facility] CLIA [id number] [address] [place] [address] [place] Potassium [Moles/Vol] 4.2 mmol/L Normal 3.5-5.1 [facility] Comment on above: Order Comment: Speci men Type: BLOOD SPECIMEN Ordering Facility: [facility] Address: [address] [place] [address] Performed By: #### 2 4321-2, 22517-5 #### [facility] CLIA [id number] [address] [place] [address] [place] Sodium [Moles/Vol] 138 mmol/L Normal 136-145 [facility] Comment on above: Order Comment: Speci men Type: BLOOD SPECIMEN Ordering Facility: [facility] Address: [address] [place] [address] Performed By: #### 2 4321-2, 17037-0 #### [facility] CLIA [id number] [address] [place] [address] [place] Urea nitrogen [Mass/Vol] 19 mg/dL Normal 7-26 [facility] Comment on above: Order Comment: Speci men Type: BLOOD SPECIMEN Ordering Facility: [facility] Address: [address] [place] [address] Performed By: #### 2 4321-2, 12493-1 #### [facility] CLIA [id number] [address] [place] [address] [place] CBC W Auto Differential pane l (Bld)on 12-15-2023 Basophils (Bld) [#/Vol] 10*3/uL Normal <0.11 [facility] Comment on above: Order Comment: Speci men Type: BLOOD SPECIMEN Ordering Facility: [facility] Address: [address] [place] [address] Performed By: #### 5 7021-8 #### [facility] CLIA [id number] [address] [place] [address] [place] Basophils/100 WBC (Bld) 0.1 % Normal [facility] Comment on above: Order Comment: Speci men Type: BLOOD SPECIMEN Ordering Facility: [facility] Address: [address] [place] [address] Performed By: #### 5 7021-8 #### [facility] CLIA [id number] [address] [place] [address] [place] Differential cell count method Nom (Bld) Auto Normal [facility] Comment on above: Order Comment: Speci men Type: BLOOD SPECIMEN Ordering Facility: [facility] Address: [address] [place] [address] Performed By: #### 5 7021-8 #### [facility] CLIA [id number] [address] [place] [address] [place] Eosinophils (Bld) [#/Vol] 10*3/uL Normal <0.46 [facility] Comment on above: Order Comment: Speci men Type: BLOOD SPECIMEN Ordering Facility: [facility] Address: [address] [place] [address] Performed By: #### 5 7021-8 #### [facility] CLIA [id number] [address] [place] [address] [place] Eosinophils/100 WBC (Bld) 0.0 % Normal [facility] Comment on above: Order Comment: Speci men Type: BLOOD SPECIMEN Ordering Facility: [facility] Address: [address] [place] [address] Performed By: #### 5 7021-8 #### [facility] CLIA [id number] [address] [place] [address] [place] Erythrocyte distribution width (RBC) [Ratio] 14.3 % Normal 11.5-15.0 [facility] Comment on above: Order Comment: Speci men Type: BLOOD SPECIMEN Ordering Facility: [facility] Address: [address] [place] [address] Performed By: #### 5 7021-8 #### [facility] CLIA [id number] [address] [place] [address] [place] Hematocrit (Bld) [Volume fraction] 42.3 % Normal 39.0-51.0 [facility] Comment on above: Order Comment: Speci men Type: BLOOD SPECIMEN Ordering Facility: [facility] Address: [address] [place] [address] Performed By: #### 5 7021-8 #### [facility] CLIA [id number] [address] [place] [address] [place] Hemoglobin (Bld) [Mass/Vol] 14.0 g/dL Normal 13.0-17.0 [facility] Comment on above: Order Comment: Speci men Type: BLOOD SPECIMEN Ordering Facility: [facility] Address: [address] [place] [address] Performed By: #### 5 7021-8 #### [facility] CLIA [id number] [address] [place] [address] [place] Immature granulocytes (Bld) [#/Vol] 0.08 10*3/uL Normal <0.10 [facility] Comment on above: Order Comment: Speci men Type: BLOOD SPECIMEN Ordering Facility: [facility] Address: [address] [place] [address] Performed By: #### 5 7021-8 #### [facility] CLIA [id number] [address] [place] [address] [place] Immature granulocytes/100 WBC (Bld) 0.4 % Normal [facility] Comment on above: Order Comment: Speci men Type: BLOOD SPECIMEN Ordering Facility: [facility] Address: [address] [place] [address] Performed By: #### 5 7021-8 #### [facility] CLIA [id number] [address] [place] [address] [place] Lymphocytes (Bld) [#/Vol] 0.40 10*3/uL Low 1.00-4.00 [facility] Comment on above: Order Comment: Speci men Type: BLOOD SPECIMEN Ordering Facility: [facility] Address: [address] [place] [address] Performed By: #### 5 7021-8 #### [facility] CLIA [id number] [address] [place] [address] [place] Lymphocytes/100 WBC (Bld) 2.1 % Normal [facility] Comment on above: Order Comment: Speci men Type: BLOOD SPECIMEN Ordering Facility: [facility] Address: [address] [place] [address] Performed By: #### 5 7021-8 #### [facility] CLIA [id number] [address] [place] [address] [place] MCH (RBC) [Entitic mass] 28.2 pg Normal 26.0-34.0 [facility] Comment on above: Order Comment: Speci men Type: BLOOD SPECIMEN Ordering Facility: [facility] Address: [address] [place] [address] Performed By: #### 5 7021-8 #### [facility] CLIA [id number] [address] [place] [address] [place] MCHC (RBC) [Mass/Vol] 33.1 g/dL Normal 30.5-36.0 [facility] Comment on above: Order Comment: Speci men Type: BLOOD SPECIMEN Ordering Facility: [facility] Address: [address] [place] [address] Performed By: #### 5 7021-8 #### [facility] CLIA [id number] [address] [place] [address] [place] MCV (RBC) [Entitic vol] 85.3 fL Normal 80.0-100.0 [facility] Comment on above: Order Comment: Speci men Type: BLOOD SPECIMEN Ordering Facility: [facility] Address: [address] [place] [address] Performed By: #### 5 7021-8 #### [facility] CLIA [id number] [address] [place] [address] [place] Monocytes (Bld) [#/Vol] 0.86 10*3/uL Normal <0.87 [facility] Comment on above: Order Comment: Speci men Type: BLOOD SPECIMEN Ordering Facility: [facility] Address: [address] [place] [address] Performed By: #### 5 7021-8 #### [facility] CLIA [id number] [address] [place] [address] [place] Monocytes/100 WBC (Bld) 4.6 % Normal [facility] Comment on above: Order Comment: Speci men Type: BLOOD SPECIMEN Ordering Facility: [facility] Address: [address] [place] [address] Performed By: #### 5 7021-8 #### [facility] CLIA [id number] [address] [place] [address] [place] Neutrophils (Bld) [#/Vol] 17.42 10*3/uL High 1.45-7.50 [facility] Comment on above: Order Comment: Speci men Type: BLOOD SPECIMEN Ordering Facility: [facility] Address: [address] [place] [address] Performed By: #### 5 7021-8 #### [facility] CLIA [id number] [address] [place] [address] [place] Neutrophils/100 WBC (Bld) 92.8 % Normal [facility] Comment on above: Order Comment: Speci men Type: BLOOD SPECIMEN Ordering Facility: [facility] Address: [address] [place] [address] Performed By: #### 5 7021-8 #### [facility] CLIA [id number] [address] [place] [address] [place] Nucleated RBC (Bld) [#/Vol] 10*3/uL Normal <0.01 [facility] Comment on above: Order Comment: Speci men Type: BLOOD SPECIMEN Ordering Facility: [facility] [address] [id number] Performed By: #### 5 7021-8 #### [facility] CLIA [id number] [address] [place] [address] [place] Nucleated RBC/100 WBC (Bld) [Ratio] 0.0 /100 WBC Normal [facility] Comment on above: Order Comment: Speci men Type: BLOOD SPECIMEN Ordering Facility: [facility] Address: [address] [place] [address] Performed By: #### 5 7021-8 #### [facility] CLIA [id number] [address] [place] [address] [place] Platelet mean volume (Bld) [Entitic vol] 9.9 fL Normal 9.0-12.7 [facility] Comment on above: Order Comment: Speci men Type: BLOOD SPECIMEN Ordering Facility: [facility] Address: [address] [place] [address] Performed By: #### 5 7021-8 #### [facility] CLIA [id number] [address] [place] [address] [place] Platelets (Bld) [#/Vol] 258 10*3/uL Normal 150-400 [facility] Comment on above: Order Comment: Speci men Type: BLOOD SPECIMEN Ordering Facility: [facility] Address: [facility] [place] [address] Performed By: #### 5 7021-8 #### [facility] CLIA [id number] [address] [place] [address] [place] RBC (Bld) [#/Vol] 4.96 10*6/uL Normal 4.20-6.00 [facility] Comment on above: Order Comment: Speci men Type: BLOOD SPECIMEN Ordering Facility: [facility] Address: [address] [place] [address] [place] [address] Performed By: #### 5 7021-8 #### [facility] CLIA [id number] [address] [place] [address] [place] WBC (Bld) [#/Vol] 18.78 10*3/uL High 3.70-11.00 [facility] Comment on above: Order Comment: Speci men Type: BLOOD SPECIMEN Ordering Facility: [facility] Address: [address] [place] [address] Performed By: #### 5 7021-8 #### [facility] CLIA [id number] [address] ECG COMPLETEon 12-15-2023 ECG COMPLETE Ventricular Rate : 9 1 BPM Atrial Rate : 91 BPM P-R Interval : 126 ms QRS Duration : 76 ms Q-T Interval : 354 ms QTC Calculation(Bazett) : 435 ms Calculated P Phoenix : 81 degrees Calculated R Phoenix : 79 degrees Calculated T Phoenix : 78 degrees Sinus rhythm with Premature atrial complexes Otherwise normal ECG No previous ECGs available Confirmed by BRIDGETT IZAGUIRRE MD ([id number]) on 12/15/2023 9:33:58 AM NAME : BEATRIS QUINN PID : [id number] : 1950 Gender : Male Race : ORD : [id number] Procedure Date : Dec 14 2023 22:29:36 Edit Date : Dec 15 2023 09:34:01 Diagnosis: Sinus rhythm with Premature atrial complexes Otherwise normal ECG No previous ECGs available Confirmed by BRIDGETT IZAGUIRRE MD ([id number]) on 12/15/2023 9:33:58 AM Test Reason : STAT Location : 0 : ED [id number] Overread By : BRIDGETT IZAGUIRRE MD Edited By : BRIDGETT IZAGUIRRE MD Referred By : , Acquired by : STEVE, [facility] ED NOTEon 12-15-2023 ED NOTE HNO ID: [id number] Author: MICAELA HILTON RN Service: Emergency Medicine Author Type: Registered Nurse Type: ED Notes Filed: 12/15/2023 00:31 Note Text: Pt ambulated around nursing station. Pt started having expiratory wheezing with wet cough and increased general weakness. Pt able to make complete [place] around ED1. Ppt remained between 90-92%RA during ambulation. Meli PAC notified. [facility] ED NOTE HNO ID: [id number] Author: MICAELA HILTON RN Service: Emergency Medicine Author Type: Registered Nurse Type: ED Notes Filed: 12/14/2023 23:11 Note Text: Pt c/o SOB due to COPD exacerbation that started x3 days ago. States it hasn't been getting any better with coughing and weakness. Pt speaking in 3-4 word sentences with difficulty during breathing treatment. Pt states he had flu A, causing more issues with the coughing, weakness, and SOB. [facility] ED NOTE HNO ID: [id number] Author: SUNDAR MOSQUEDA LPN Service: ? Author Type: LICENSED NURSE Type: ED Notes Filed: 12/14/2023 22:38 Note Text: Bed: 12-ED Expected date: Expected time: Means of arrival: Comments: [facility] ED PROV NOTEon 12-15-2023 ED PROV NOTE HNO ID: [id number] Author: CLAIRE CASE PA-C Service: ? Author Type: Physician Turbine Subassembler Type: ED Provider Notes Filed: 12/15/2023 01:54 Note Text: ED Provider Note Patient Name: Beatris Quinn : 1950 SERVICE DATE: 12/14/23 History Patient presents with: Cough: COPD exacerbation Shortness of Breath: Pt. speaking words and in distress catching his breath, chest pain with coughing and in his throat. Beatris Quinn is a 72 year old male who presents to the ED for evaluation of shortness of breath which has been present for the past 8 days. The patient has a history of COPD. He is a former smoker. He uses albuterol at home as needed. He does not require oxygen. He states that about 8 days ago he started to develop a cough and shortness of breath. A few days later, he went to the [place] emergency department and was evaluated there. He was found to have influenza A. He was given a shot of steroids and breathing treatments and discharged home on prednisone. He states that he had improvement in his symptoms for a day or 2 and then they started to come back again. He states that he feels very short of breath and has continued to have a productive cough. He also feels very fatigued and his appetite has been decreased. He denies any fever or chills. He denies any headache or neck pain. He states that his chest feels tight but not painful. He denies any abdominal pain, nausea, vomiting, diarrhea, urinary symptoms, or any other symptoms. He denies any history of CAD. He denies any history of DVT or PE. He denies any other complaints or concerns. No other pertinent HPI ROS Review of Systems All systems reviewed and negative except noted in HPI PAST MEDICAL HISTORY Diagnosis Date Phlebitis and thrombophlebitis of unspecified site right leg Unspecified asthma(493.90) Unspecified essential hypertension PAST SURGICAL HISTORY Procedure Laterality Date EXCIS TUMOR/AVM,SUBCUT,HAND/ FINGR Left 10/20/2016 Exc. left hand 3rd digit SC mass PAST SURGICAL HISTORY OF 12/2005 right hip fracture repaired with erick placement PAST SURGICAL HISTORY OF 01/2009 right hip replacement PAST SURGICAL HISTORY OF 09/05/12 Left rotator cuff; Dr. Donato Mcqueen REPAIR SHOULDER CAPSULE,ANTERIOR x 2 Repair shoulder dislocation FAMILY HISTORY Problem Relation Age of Onset Heart Father mi Diabetes Mother Heart Mother chf Hypertension Brother Developmental problem Sister Social History Tobacco Use Smoking status: Former Packs/day: .5 Types: Cigarettes Quit date: 10/24/2005 Years since quittin.1 Smokeless tobacco: Never Substance and Sexual Activity Alcohol use: Yes Drug use: No Sexual activity: Yes Partners: Female ALLERGIES Allergen Reactions Lisinopril Cough Maxzide [Triamteren* Intolerance leg cramp, sex desire decrease Naproxen GI Upset Records on file/review of medical records: Nursing/triage notes and assessments as well as vitals were reviewed and incorporated Records on file reviewed: N/A Physical Exam Vitals [12/14/23 2212] BP Pulse Temp Temp src Resp SpO2 Weight Height 180/88 89 36.6 ?C (97.9 ?F) Oral (!) 28 (!) 93 % 55.3 kg (122 lb) 1.702 m (5' 7) Physical Exam General: Nontoxic. Appears uncomfortable and in mild respiratory distress. HEENT: Normocephalic/atraumat ic. Bilateral conjunctiva without injection or drainage. Mucous membranes are moist. Pharynx and tonsils are without erythema, edema, exudate. Uvula is midline. No drooling, stridor, or muffled voice. Neck: Supple. No meningismus. Chest: Mild distress noted. The patient is tachypneic with accessory muscle use. Breath sounds are diminished throughout expiratory wheezing. No rales or rhonchi. Chest is nontender. Cardiac: RRR, no rubs. Abdomen: Normal active bowel sounds x4. Abdomen is soft and nontender. No peritoneal signs or distention. : no performed/not indicated Rectal: no performed/not indicated Back: Atraumatic. No midline tenderness. No CVA tenderness. Extremities: Atraumatic. No edema, erythema, warmth, or tenderness. Skin: Warm. Dry. No rashes. Neuro: Alert and oriented x3. No lateralized deficits. No gross weakness. Psyc: Normal mood/affect. Normal judgment/memory. Diagnostic Testing ED Labs Ordered and Reviewed BASIC METABOLIC PANEL - Abnormal; Notable for the following components: Result Value Ref Range Glucose 197 (*) 70 - 100 mg/dL All other components within normal limits COMPLETE BLOOD COUNT AND DIFFERENTIAL - Abnormal; Notable for the following components: WBC 18.78 (*) 3.70 - 11.00 k/uL Abs Neut 17.42 (*) 1.45 - 7.50 k/uL Abs Lymph 0.40 (*) 1.00 - 4.00 k/uL All other components within normal limits COVID AND INFLUENZA A/B AND RSV NAAT, EXPEDITED - Abnormal; Notable for the following components: Influenza A PCR Detected (*) Not Detected All other components within normal limits Narrative: This (more content not included)... Normal [facility] [facility] T[facility] Noteon 12-15-2023 ED Triage Note HNO ID: [id number] Author: IVAN DO PA-C Service: ? Author Type: Physician Turbine Subassembler Type: ED Triage Notes Filed: 12/14/2023 22:28 Note Text: ED TRIAGE PROVIDER NOTE Patient Name: Beatris Quinn Service Date: 12/14/23 BRIEF HPI: This is a 72 year old male who presents to the ED with: Shortness of breath and productive cough. Denies fever or chills. Denies chest pain. BRIEF EXAM: NAD Awake and Alert Lungs: Expiratory wheezes bilaterally. Heart: Normal rate and rhythm. INITIAL WORKUP AND DECISION MAKING: Orders Placed This Encounter XR CHEST 2V FRONTAL/LAT BASIC METABOLIC PANEL CBC + AUTO DIFF HIGH SENSITIVITY TROPONIN I ipratropium-albuterol 3 mL nebulizer solution (DUONEB) albuterol 2.5 mg /3 mL (0.083 %) 5 mg (PROVENTIL) methylPREDNISolone sod succinate(PF) 125 mg injection (SOLU-Medrol) SIGNATURE: Ivan Do PA-C Normal [facility] FLUABV+SARS-CoV-2+RSV Pnl Re sp JELENA+probeon 12-15-2023 FLUABV+SARS-CoV-2+RSV Pnl Resp JELENA+probe COVID 19 RESULT: Not detected The method used is RT-PCR or an equivalent NAAT method. Reference Range(the expected result in uninfected individuals): Not detected INFLUENZA A PCR: Detected INFLUENZA B PCR: Not detected RSV PCR: Not detected Abnormal [facility] Comment on above: Performed By: #### 9 [id number] #### [facility] CLIA [id number] [address] [place] [address] [place] HIGH SENSITIVITY TROPONIN Io n 12-15-2023 Tropinin I.cardiac panel High sensitivity method 14.2 pg/mL Normal 0.0-54.0 [facility] Comment on above: Order Comment: Haylee russo Type: BLOOD SPECIMEN Ordering Facility: [facility] Address: [address] [place] [address] Result Comment: This assay uses different antibodies than our current assay, and assays, even by the same residential driver may recognize different regions of the antibody and cannot be used interchangeably. Expect results of this assay to run higher than the previous assay. Performed By: #### H STROP #### [facility] CLIA [id number] [address] [place] [address] [place] Procalcitonin SerPl-mCncon 0 12-15-2023 Procalcitonin [Mass/Vol] ng/mL Normal 0.00-0.50 [facility] Comment on above: Order Comment: Haylee russo Type: BLOOD SPECIMEN Ordering Facility: [facility] Address: [address] [place] [address] Result Comment: PCT Concentration Interpretation PCT <=0.1 ng/mL: Normal range for healthy adults PCT >0.1 ng/mL and <0.5 ng/mL: Systemic infection (sepsis) is possible and may require antibiotic treatment, but other conditions are known to elevate PCT as well. PCT >0.5 ng/mL: Should be considered at risk for developing severe sepsis or septic shock. PCT >2.0 ng/mL: Important systemic inflammatory response. Almost exclusively indicates episode of severe bacterial sepsis or septic shock. Performed By: #### 2 4321-2, 91807-9 #### [facility] CLIA [id number] [address] [facility] [facility] [address] [place] XR CHEST 2V FRONTAL/LATon XR CHEST 2V FRONTAL/LAT * * *Final Repor t* * * DATE OF EXAM: Dec 15 2023 1:21AM RHX [id number] - XR CHEST 2V FRONTAL/LAT / PROCEDURE REASON: Cough * * * * Physician Interpretation * * * * EXAMINATION: CHEST RADIOGRAPH (2 VIEW FRONTAL and LATERAL) CLINICAL HISTORY: Cough MQ: [id number] EXAM DATE/TIME: 12/15/2023 1:21 AM COMPARISON: 10/15/2016. RESULT: Lines, tubes, and devices: None. Lungs and pleura: No consolidation. No lung mass. No pleural effusion. No pneumothorax. Cardiomediastinal silhouette: Normal cardiomediastinal silhouette. Calcified mediastinal lymph nodes. Bones and soft tissues: Old left-sided rib fracture. IMPRESSION: No acute radiographic abnormality. Seat Cover Cutter: PSCB Transcribe Date/Time: Dec 15 2023 1:22A Dictated by : PAT FINN MD This examination was interpreted and the report reviewed and electronically signed by: PAT FINN MD on Dec 15 2023 1:24AM EST [id number] Normal [facility] Absolute lymphocyte countOrd ered By: Robin Montenegro on 12-11-2023 Lymphocytes Auto (Unsp spec) [#/Vol] 1.05 10*3/uL 0.83-4.51 [facility] Automated lymphocyte count a s percentage of total leukocytesOrdered By: Robin Montenegro on 12-11-2023 Lymphocytes/100 WBC Auto (Unsp spec) 17.2 % 19-41 [facility] Basophil percentageOrdered B y: Robin Montenegro on 12-11-2023 Basophils/100 WBC (Bld) 0.5 % 0-1 [facility] Chloride [Moles/Vol] 105 mmol/L 98-107 [facility] Eosinophils/100 WBC (Bld) 2.6 % 0-5 [facility] Glucose [Mass/Vol] 100 mg/dL 74-106 [facility] Comment on above: Fasting Glucose resu lt from 100 to 125 mg/dL suggests IMPAIRED HOMEOSTASIS per A.D.A. criteria. Hemoglobin (Bld) [Mass/Vol] 13.2 g/dL 13.0-16.5 [facility] Monocytes/100 WBC (Bld) 12.3 % 0-10 [facility] Neutrophils (Bld) [#/Vol] 4.1 10*3/uL 2.0-7.7 [facility] Neutrophils/100 WBC (Bld) 67.2 % 47-70 [facility] Potassium [Moles/Vol] 4.0 mmol/L 3.5-5.1 [facility] Sodium [Moles/Vol] 138 mmol/L 136-145 [facility] WBC (Bld) [#/Vol] 6.1 10*3/uL 4.4-11.0 [facility] Determination of erythrocyte mean corpuscular volume (MCV)Ordered By: Robin Montenegro on 12-11-2023 MCV (RBC) [Entitic vol] 87.4 fL 80-94 [facility] Erythrocyte distribution wid th ratioOrdered By: Robin Montenegro on 12-11-2023 Erythrocyte distribution width (RBC) [Ratio] 14.6 % 11.6-14.6 [facility] Erythrocyte distribution wid th standard deviationOrdered By: Robin Montenegro on 12-11-2023 Erythrocyte distribution width (RBC) [Entitic vol] 46.9 fL 35.1-43.9 [facility] Hematocrit Auto (Bld) [Volum e fraction]Ordered By: Robin Montenegro on 12-11-2023 Hematocrit (Bld) [Volume fraction] 40.3 % 40-54 [facility] Immature granulocytes/100 WB C Auto (Bld)Ordered By: Robin Montenegro on 12-11-2023 Immature granulocytes/100 WBC (Bld) 0.200 % 0.0-0.9 [facility] Comment on above: IG% - Immature Granu locytes (promyelocytes, myelocytes and metamyelocytes) > 1% indicates that a LEFT SHIFT is Present. Laboratory - Chemistry and C hemistry - challengeOrdered By: Robin Montenegro on 12-11-2023 CO2 [Moles/Vol] 30.0 mmol/L 21.0-32.0 [facility] Urea nitrogen/Creatinine [Mass ratio] 18.3 mg/mg 10-20 [facility] Laboratory - Hematology and Cell countsOrdered By: Robin Montenegro on 12-11-2023 MCH (RBC) [Entitic mass] 28.6 pg 27.0-32.0 [facility] MCHC (RBC) [Mass/Vol] 32.8 g/dL 32-36 [facility] Nucleated RBC/100 WBC (Bld) [Ratio] 0 % 0-5 [facility] Platelet mean volume (Bld) [Entitic vol] 9.4 fL 6.2-12.0 [facility] Platelets (Bld) [#/Vol] 191 10*3/uL 150-450 [facility] Laboratory - Microbiology an d Antimicrobial susceptibilityOrdered By: Robin Montenegro on 12-11-2023 SARS-CoV-2 (COVID-19) RNA JELENA+probe Ql (Unsp spec) Influenzae A [facility] No Panel InformationOrdered By: Robin Montenegro on 12-11-2023 Estimated Creatinine Clearance Calc 66.92 ml/min [facility] Estimated GFR (MDRD) Amer 110 mL/min >60 [facility] Comment on above: GFR Calc Estimated GFR (MDRD) Non-Af Amer 91 mL/min >60 [facility] Comment on above: Non- GFR Calc Troponin I High Sensitivity 10 pg/mL 3.0-78.0 [facility] Comment on above: Please Note: New Lana t Units and Gender Specific Reference Ranges. For more information see Policy Stat Procedure [place] High Sensitivity Troponin (TNIH) and attachments. RBC Auto (Bld) [#/Vol]Ordere d By: Robin Montenegro on 12-11-2023 RBC (Bld) [#/Vol] 4.61 10*6/uL 4.6-6.2 [facility] Serum or plasma calcium christiana urement (mass/volume)Ordered By: Robin Montenegro on 12-11-2023 Calcium [Mass/Vol] 8.7 mg/dL 8.5-10.1 [facility] Serum or plasma creatinine m easurement (mass/volume)Ordered By: Robin Montenegro on 12-11-2023 Creatinine [Mass/Vol] 0.87 mg/dL 0.70-1.30 [facility] Comment on above: The validity of the calculated GFR & GFRAA in patients over 70 years has not been determined. Clinical correlation is essential. Serum or plasma urea nitroge n measurement (mass/volume)Ordered By: Robin Montenegro on 12-11-2023 Urea nitrogen [Mass/Vol] 16 mg/dL 7-18 [facility] Thin prep Papanicolaou smear with manual screeningOrdered By: Robin Montenegro on 12-11-2023 Thin prep Papanicolaou smear with manual screening 3 5-15 [facility] Absolute lymphocyte countOrd ered By: Dean Salas on 10-29-2023 Lymphocytes Auto (Unsp spec) [#/Vol] 0.85 10*3/uL 0.83-4.51 [facility] Automated lymphocyte count a s percentage of total leukocytesOrdered By: Dean Salas on 10-29-2023 Lymphocytes/100 WBC Auto (Unsp spec) 8.0 % 19-41 [facility] Basophil percentageOrdered B y: Dean Salas on 10-29-2023 Basophils/100 WBC (Bld) 0.4 % 0-1 [facility] Chloride [Moles/Vol] 107 mmol/L 98-107 [facility] Eosinophils/100 WBC (Bld) 2.2 % 0-5 [facility] Glucose [Mass/Vol] 126 mg/dL 74-106 [facility] Comment on above: Fasting Glucose resu lt greater than or equal to 126 mg/dL suggests DIABETES MELLITUS per A.D.A. criteria. Hemoglobin (Bld) [Mass/Vol] 12.6 g/dL 13.0-16.5 [facility] Monocytes/100 WBC (Bld) 12.1 % 0-10 [facility] Neutrophils (Bld) [#/Vol] 8.1 10*3/uL 2.0-7.7 [facility] Neutrophils/100 WBC (Bld) 76.8 % 47-70 [facility] Potassium [Moles/Vol] 3.8 mmol/L 3.5-5.1 [facility] Sodium [Moles/Vol] 139 mmol/L 136-145 [facility] WBC (Bld) [#/Vol] 10.6 10*3/uL 4.4-11.0 [facility] Determination of erythrocyte mean corpuscular volume (MCV)Ordered By: Dean Salas on 10-29-2023 MCV (RBC) [Entitic vol] 86.7 fL 80-94 [facility] Erythrocyte distribution wid th ratioOrdered By: Dean Salas on 10-29-2023 Erythrocyte distribution width (RBC) [Ratio] 13.8 % 11.6-14.6 [facility] Erythrocyte distribution wid th standard deviationOrdered By: Dean Salas on 10-29-2023 Erythrocyte distribution width (RBC) [Entitic vol] 44.2 fL 35.1-43.9 [facility] Hematocrit Auto (Bld) [Volum e fraction]Ordered By: Dean Salas on 10-29-2023 Hematocrit (Bld) [Volume fraction] 39.0 % 40-54 [facility] Immature granulocytes/100 WB C Auto (Bld)Ordered By: Dean Salas on 10-29-2023 Immature granulocytes/100 WBC (Bld) 0.500 % 0.0-0.9 [facility] Comment on above: IG% - Immature Granu locytes (promyelocytes, myelocytes and metamyelocytes) > 1% indicates that a LEFT SHIFT is Present. Laboratory - Chemistry and C hemistry - challengeOrdered By: Dean Salas on 10-29-2023 CO2 [Moles/Vol] 29.0 mmol/L 21.0-32.0 [facility] Natriuretic peptide B (Bld) [Mass/Vol] 39.3 pg/mL 0-100 [facility] Urea nitrogen/Creatinine [Mass ratio] 18.6 mg/mg 10-20 [facility] Laboratory - Hematology and Cell countsOrdered By: Dean Salas on 10-29-2023 MCH (RBC) [Entitic mass] 28.0 pg 27.0-32.0 [facility] MCHC (RBC) [Mass/Vol] 32.3 g/dL 32-36 [facility] Nucleated RBC/100 WBC (Bld) [Ratio] 0 % 0-5 [facility] Platelet mean volume (Bld) [Entitic vol] 9.1 fL 6.2-12.0 [facility] Platelets (Bld) [#/Vol] 282 10*3/uL 150-450 [facility] No Panel InformationOrdered By: Dean Salas on 10-29-2023 Estimated Creatinine Clearance Calc 67.54 ml/min [facility] Estimated GFR (MDRD) Amer 112 mL/min >60 [facility] Comment on above: GFR Calc Estimated GFR (MDRD) Non-Af Amer 92 mL/min >60 [facility] Comment on above: Non- GFR Calc Troponin I High Sensitivity 8 pg/mL 3.0-78.0 [facility] Comment on above: Please Note: New Lana t Units and Gender Specific Reference Ranges. For more information see Policy Stat Procedure [place] High Sensitivity Troponin (TNIH) and attachments. RBC Auto (Bld) [#/Vol]Ordere d By: Dean Salas on 10-29-2023 RBC (Bld) [#/Vol] 4.50 10*6/uL 4.6-6.2 [facility] Serum or plasma calcium christiana urement (mass/volume)Ordered By: Dean Salas on 10-29-2023 Calcium [Mass/Vol] 9.3 mg/dL 8.5-10.1 [facility] Serum or plasma creatinine m easurement (mass/volume)Ordered By: Dean Salas on 10-29-2023 Creatinine [Mass/Vol] 0.86 mg/dL 0.70-1.30 [facility] Comment on above: The validity of the calculated GFR & GFRAA in patients over 70 years has not been determined. Clinical correlation is essential. Serum or plasma urea nitroge n measurement (mass/volume)Ordered By: Dean Salas on 10-29-2023 Urea nitrogen [Mass/Vol] 16 mg/dL 7-18 [facility] Thin prep Papanicolaou smear with manual screeningOrdered By: Dean Salas on 10-29-2023 Thin prep Papanicolaou smear with manual screening 3 5-15 [facility] Absolute lymphocyte counton 08-29-2022 Lymphocytes Auto (Unsp spec) [#/Vol] 0.30 10*3/uL 0.83-4.51 [facility] Work Phone: Basophil percentageon 2022 Basophils/100 WBC (Bld) 0.1 % 0-1 [facility] Work Phone: Bilirubin [Mass/Vol] 0.50 mg/dL 0.20-1.00 [facility] Work Phone: Comment on above: For patients on eltr ombopag therapy, use of Dimension [place] TBIL is not recommended. Chloride [Moles/Vol] 100 mmol/L 98-107 [facility] Work Phone: Eosinophils/100 WBC (Bld) 0.0 % 0-5 [facility] Work Phone: Glucose [Mass/Vol] 185 mg/dL 74-106 [facility] Work Phone: Comment on above: Fasting Glucose resu lt greater than or equal to 126 mg/dL suggests DIABETES MELLITUS per A.D.A. criteria. Neutrophils (Bld) [#/Vol] 10.8 10*3/uL 2.0-7.7 [facility] Work Phone: Neutrophils/100 WBC (Bld) 93.1 % 47-70 [facility] Work Phone: Potassium [Moles/Vol] 3.9 mmol/L 3.5-5.1 [facility] Work Phone: Protein [Mass/Vol] 6.4 g/dL 6.4-8.2 [facility] Work Phone: Sodium [Moles/Vol] 137 mmol/L 136-145 [facility] Work Phone: WBC (Bld) [#/Vol] 11.6 10*3/uL 4.4-11.0 [facility] Work Phone: Blood erythrocytes count (nu mber/volume)on 08-29-2022 RBC (Bld) [#/Vol] 4.66 10*6/uL 4.6-6.2 [facility] Work Phone: [phone] Blood hemoglobin measurement (mass/volume)on 08-29-2022 Hemoglobin (Bld) [Mass/Vol] 12.9 g/dL 13.0-16.5 [facility] Work Phone: [phone] Blood lymphocytes/100 leukoc yteson 08-29-2022 Lymphocytes/100 WBC (Bld) 2.6 % 19-41 [facility] Work Phone: [phone] Blood manual differential co mment interpretation (narrative result)on 08-29-2022 Manual differential comment Geraldo (Bld) [Interp] SCANNED [facility] Work Phone: Comment on above: LYMPHOPENIA NOTED Blood monocytes/100 leukocyt eson 08-29-2022 Monocytes/100 WBC (Bld) 3.5 % 0-10 [facility] Work Phone: [phone] Blood platelet mean volumeon 08-29-2022 Platelet mean volume (Bld) [Entitic vol] 9.6 fL 6.2-12.0 [facility] Work Phone: [phone] Determination of erythrocyte mean corpuscular volume (MCV)on 08-29-2022 MCV (RBC) [Entitic vol] 86.3 fL 80-94 [facility] Work Phone: [phone] Hematocrit Auto (Bld) [Volum e fraction]on 08-29-2022 Hematocrit (Bld) [Volume fraction] 40.2 % 40-54 [facility] Work Phone: [phone] Laboratory - Chemistry and C hemistry - challengeon 08-29-2022 ALP [Catalytic activity/Vol] 81 U/L 45-117 [facility] Work Phone: [phone] ALT [Catalytic activity/Vol] 24 U/L 16-61 [facility] Work Phone: [phone] CO2 [Moles/Vol] 31.0 mmol/L 21.0-32.0 [facility] Work Phone: [phone] Globulin (S) [Mass/Vol] 3.7 g/dL 2.2-4.2 [facility] Work Phone: [phone] Urea nitrogen/Creatinine [Mass ratio] 25.9 mg/mg 10-20 [facility] Work Phone: [phone] Laboratory - Hematology and Cell countson 08-29-2022 Erythrocyte distribution width (RBC) [Entitic vol] 45.0 fL 35.1-43.9 [facility] Work Phone: [phone] Erythrocyte distribution width (RBC) [Ratio] 14.3 % 11.6-14.6 [facility] Work Phone: [phone] Immature granulocytes/100 WBC (Bld) 0.700 % 0.0-0.9 [facility] Work Phone: [phone] Comment on above: IG% - Immature Granu locytes (promyelocytes, myelocytes and metamyelocytes) > 1% indicates that a LEFT SHIFT is Present. MCH (RBC) [Entitic mass] 27.7 pg 27.0-32.0 [facility] Work Phone: [phone] Nucleated RBC/100 WBC (Bld) [Ratio] 0 % 0-5 [facility] Work Phone: [phone] MCHC Auto (RBC) [Mass/Vol]on 08-29-2022 MCHC (RBC) [Mass/Vol] 32.1 g/dL 32-36 [facility] Work Phone: [phone] No Panel Informationon 08-29 Estimated Creatinine Clearance Calc 67.41 ml/min [facility] Work Phone: [phone] Estimated GFR (MDRD) Amer 108 mL/min >60 [facility] Work Phone: [phone] Comment on above: GFR Calc Estimated GFR (MDRD) Non-Af Amer 90 mL/min >60 [facility] Work Phone: [phone] Comment on above: Non- GFR Calc Platelets bldon 08-29-2022 Platelets (Bld) [#/Vol] 330 10*3/uL 150-450 [facility] Work Phone: [phone] Serum or plasma albumin christiana urement (mass/volume)on 08-29-2022 Albumin [Mass/Vol] 2.7 g/dL 3.2-5.0 [facility] Work Phone: [phone] Serum or plasma albumin/glob ulin mass ratioon 08-29-2022 Albumin/Globulin [Mass ratio] 0.7 {ratio} 0.9-2.4 [facility] Work Phone: [phone] Serum or plasma calcium christiana urement (mass/volume)on 08-29-2022 Calcium [Mass/Vol] 8.7 mg/dL 8.5-10.1 [facility] Work Phone: [phone] Serum or plasma creatinine m easurement (mass/volume)on 08-29-2022 Creatinine [Mass/Vol] 0.89 mg/dL 0.70-1.30 [facility] Work Phone: Comment on above: The validity of the calculated GFR & GFRAA in patients over 70 years has not been determined. Clinical correlation is essential. Serum or plasma urea nitroge n measurement (mass/volume)on 08-29-2022 Urea nitrogen [Mass/Vol] 23 mg/dL 7-18 [facility] Work Phone: Thin prep Papanicolaou smear with manual screeningon 08-29-2022 Thin prep Papanicolaou smear with manual screening 15 U/L 15-37 [facility] Work Phone: [phone] Thin prep Papanicolaou smear with manual screening 6 5-15 [facility] Work Phone: [phone] Absolute lymphocyte counton 08-26-2022 Lymphocytes Auto (Unsp spec) [#/Vol] 0.81 10*3/uL 0.83-4.51 [facility] Work Phone: Basophil percentageon 2022 Chloride [Moles/Vol] 99 mmol/L 98-107 [facility] Work Phone: [phone] Glucose [Mass/Vol] 156 mg/dL 74-106 [facility] Work Phone: [phone] Comment on above: Fasting Glucose resu lt greater than or equal to 126 mg/dL suggests DIABETES MELLITUS per A.D.A. criteria. Potassium [Moles/Vol] 3.8 mmol/L 3.5-5.1 [facility] Work Phone: Sodium [Moles/Vol] 136 mmol/L 136-145 [facility] Work Phone: Lactate [Moles/Vol] 1.8 mmol/L 0.4-2.0 [facility] Work Phone: Basophils/100 WBC (Bld) 0.1 % 0-1 [facility] Work Phone: Eosinophils/100 WBC (Bld) 0.0 % 0-5 [facility] Work Phone: Neutrophils (Bld) [#/Vol] 16.6 10*3/uL 2.0-7.7 [facility] Work Phone: Neutrophils/100 WBC (Bld) 87.1 % 47-70 [facility] Work Phone: WBC (Bld) [#/Vol] 19.1 10*3/uL 4.4-11.0 [facility] Work Phone: Blood erythrocytes count (nu mber/volume)on 08-26-2022 RBC (Bld) [#/Vol] 5.46 10*6/uL 4.6-6.2 [facility] Work Phone: Blood hemoglobin measurement (mass/volume)on 08-26-2022 Hemoglobin (Bld) [Mass/Vol] 15.4 g/dL 13.0-16.5 [facility] Work Phone: Blood lymphocytes/100 leukoc yteson 08-26-2022 Lymphocytes/100 WBC (Bld) 4.3 % 19-41 [facility] Work Phone: Blood manual differential co mment interpretation (narrative result)on 08-26-2022 Manual differential comment Geraldo (Bld) [Interp] SCANNED [facility] Work Phone: Comment on above: BANDS NOTED Blood monocytes/100 leukocyt eson 08-26-2022 Monocytes/100 WBC (Bld) 8.1 % 0-10 [facility] Work Phone: [phone] Blood platelet mean volumeon 08-26-2022 Platelet mean volume (Bld) [Entitic vol] 9.4 fL 6.2-12.0 [facility] Work Phone: [phone] Determination of erythrocyte mean corpuscular volume (MCV)on 08-26-2022 MCV (RBC) [Entitic vol] 87.0 fL 80-94 [facility] Work Phone: [phone] Hematocrit Auto (Bld) [Volum e fraction]on 08-26-2022 Hematocrit (Bld) [Volume fraction] 47.5 % 40-54 [facility] Work Phone: [phone] Laboratory - Chemistry and C hemistry - challengeon 08-26-2022 CO2 [Moles/Vol] 33.0 mmol/L 21.0-32.0 [facility] Work Phone: [phone] Urea nitrogen/Creatinine [Mass ratio] 35.3 mg/mg 10-20 [facility] Work Phone: [phone] Laboratory - Hematology and Cell countson 08-26-2022 Erythrocyte distribution width (RBC) [Entitic vol] 46.1 fL 35.1-43.9 [facility] Work Phone: [phone] Erythrocyte distribution width (RBC) [Ratio] 14.3 % 11.6-14.6 [facility] Work Phone: [phone] Immature granulocytes/100 WBC (Bld) 0.400 % 0.0-0.9 [facility] Work Phone: [phone] Comment on above: IG% - Immature Granu locytes (promyelocytes, myelocytes and metamyelocytes) > 1% indicates that a LEFT SHIFT is Present. MCH (RBC) [Entitic mass] 28.2 pg 27.0-32.0 [facility] Work Phone: [phone] Nucleated RBC/100 WBC (Bld) [Ratio] 0 % 0-5 [facility] Work Phone: [phone] MCHC Auto (RBC) [Mass/Vol]on 08-26-2022 MCHC (RBC) [Mass/Vol] 32.4 g/dL 32-36 [facility] Work Phone: No Panel Informationon 08-26 Estimated Creatinine Clearance Calc 59.94 ml/min [facility] Work Phone: Estimated GFR (MDRD) Amer 92 mL/min >60 [facility] Work Phone: Comment on above: GFR Calc Estimated GFR (MDRD) Non-Af Amer 76 mL/min >60 [facility] Work Phone: Comment on above: Non- GFR Calc Troponin I High Sensitivity 14 pg/mL 3.0-78.0 [facility] Work Phone: Comment on above: Please Note: New Lana t Units and Gender Specific Reference Ranges. For more information see Policy Stat Procedure [place] High Sensitivity Troponin (TNIH) and attachments. Platelets bldon 08-26-2022 Platelets (Bld) [#/Vol] 364 10*3/uL 150-450 [facility] Work Phone: Review by pathologiston Pathologist review Geraldo (Unsp spec) [Interp] December taco [facility] Work Phone: Pathologist review Geraldo (Unsp spec) [Interp] Reviewed [facility] Work Phone: Comment on above: Previous reported re sult: Xin taco Edited by: RGOOD on 08/29/22:0933Neutrophilic leukocytosis.Clinical correlation suggested.Nigel Florez D.O. 08/29/22 AMENDED REPORT 08/29/22 0933 PATH REV previously reported as: Xin taco Serum or plasma calcium christiana urement (mass/volume)on 08-26-2022 Calcium [Mass/Vol] 9.0 mg/dL 8.5-10.1 [facility] Work Phone: Serum or plasma creatinine m easurement (mass/volume)on 08-26-2022 Creatinine [Mass/Vol] 1.02 mg/dL 0.70-1.30 [facility] Work Phone: Comment on above: The validity of the calculated GFR & GFRAA in patients over 70 years has not been determined. Clinical correlation is essential. Serum or plasma urea nitroge n measurement (mass/volume)on 08-26-2022 Urea nitrogen [Mass/Vol] 36 mg/dL 7-18 [facility] Work Phone: Thin prep Papanicolaou smear with manual screeningon 08-26-2022 Thin prep Papanicolaou smear with manual screening 4 5-15 [facility] Work Phone: .Auto Diffon 08-23-2022 Basophil, Absolute 0.0 10 3/mcL Normal 0.0-0.3 [facility] ([place]) Comment on above: Performed By: #### EMILY JEFFERSON, GFR #### [address] [address] Basophils/100 WBC (Bld) 0.3 % Normal 0.0-2.5 A [facility] ([place]) Comment on above: Performed By: #### EMILY JEFFERSON, GFR #### [address] [address] Eosinophil, Absolute 0.1 10 3/mcL Normal 0.0-0.7 [facility] ([place]) Comment on above: Performed By: #### EMILY JEFFERSON, GFR #### [address] [address] Eosinophils/100 WBC (Bld) 0.9 % Normal 0.0-6.0 [facility] ([place]) Comment on above: Performed By: #### EMILY JEFFERSON, GFR #### [address] [address] Lymphocyte, Absolute 0.6 10 3/mcL Low 0.9-4.3 [facility] ([place]) Comment on above: Performed By: #### EMILY JEFFERSON, GFR #### [address] [address] Lymphocytes/100 WBC (Bld) 4.7 % Low 20.0-40.0 [facility] ([place]) Comment on above: Performed By: #### EMILY JEFFERSON, GFR #### [address] [address] Monocyte, Absolute 1.2 10 3/mcL Normal 0.1-1.4 [facility] ([place]) Comment on above: Performed By: #### T CEFERINO BMP, GFR #### [address] [address] Monocytes/100 WBC (Bld) 8.6 % Normal 2.0-13.0 A [facility] ([place]) Comment on above: Performed By: #### T CEFERINO BMP, GFR #### [address] [address] Neutrophils/100 WBC (Bld) 85.5 % High 50.0-75.0 [facility] ([place]) Comment on above: Performed By: #### T CEFERINO BMP, GFR #### [address] [address] .GFRon 08-23-2022 GFR >60 Normal [facility] ([place]) Comment on above: Result Comment: GFR Population mean for , Non- Americans Ages 20-29 = 116 mL/min/1.73 sq.m. Ages 30-39 = 107 mL/min/1.73 sq.m. Ages 40-49 = 99 mL/min/1.73 sq.m. Ages 50-59 = 93 mL/min/1.73 sq.m. Ages 60-69 = 85 mL/min/1.73 sq.m. Ages 70+ = 75 mL/min/1.73 sq.m. Chronic Kidney Disease: Less than 60 mL/min/1.73 square meters End Stage Renal Disease: Less than 15 mL/min/1.73 square meters Performed By: #### T CEFERINO BMP, GFR #### [address] [address] GFR Non- >60 Normal [facility] ([place]) Comment on above: Result Comment: GFR Population mean for , Non- Americans Ages 20-29 = 116 mL/min/1.73 sq.m. Ages 30-39 = 107 mL/min/1.73 sq.m. Ages 40-49 = 99 mL/min/1.73 sq.m. Ages 50-59 = 93 mL/min/1.73 sq.m. Ages 60-69 = 85 mL/min/1.73 sq.m. Ages 70+ = 75 mL/min/1.73 sq.m. Chronic Kidney Disease: Less than 60 mL/min/1.73 square meters End Stage Renal Disease: Less than 15 mL/min/1.73 square meters Performed By: #### T CEFERINO BMP, GFR #### [address] [address] .MDWon 08-23-2022 Monocyte Distribution Width 19.08 Normal 0.00-20.00 [facility] ([place]) Comment on above: Result Comment: For ED adult patients suspected of sepsis, MDW<=20.0 does not rule out sepsis or risk of sepsis Performed By: #### T EMILY DE LA VEGA, GFR #### [address] [address] .NEUABSon 08-23-2022 Neutrophil, Absolute 11.6 10 3/mcL High 2.3-8.1 A [facility] ([place]) Comment on above: Performed By: #### T EMILY DE LA VEGA, GFR #### [address] [address] Absolute lymphocyte counton 08-23-2022 Lymphocytes Auto (Unsp spec) [#/Vol] 0.57 10*3/uL 0.83-4.51 [facility] Work Phone: BMPon 08-23-2022 BUN/Creatinine Ratio 24.4 ratio High 10.0-22.0 [facility] ([place]) Comment on above: Performed By: #### T CEFERINO, BMP, GFR #### [address] [address] Calcium [Mass/Vol] 9.9 mg/dL Normal 8.7-10.4 [facility] ([place]) Comment on above: Performed By: #### T CEFERINO BMP, GFR #### [address] [address] Chloride [Moles/Vol] 97 mmol/L Low 98-110 [facility] ([place]) Comment on above: Performed By: #### T CEFERINO, BMP, GFR #### [address] [address] CO2 [Moles/Vol] 30 mmol/L Normal 22-32 [facility] ([place]) Comment on above: Performed By: #### T CEFERINO, BMP, GFR #### [address] [address] Creatinine [Mass/Vol] 0.78 mg/dL Normal 0.60-1.40 [facility] ([place]) Comment on above: Performed By: #### T CEFERINO, BMP, GFR #### [address] [address] Electrolyte Balance 7.0 mEq/L Normal 4.0-15.0 [facility] ([place]) Comment on above: Performed By: #### T CEFERINO, BMP, GFR #### [address] [address] Glucose [Mass/Vol] 120 mg/dL High 82-115 [facility] ([place]) Comment on above: Performed By: #### T CEFERINO, BMP, GFR #### [address] [address] Potassium [Moles/Vol] 4.3 mmol/L Normal 3.5-5.0 [facility] ([place]) Comment on above: Performed By: #### T CEFERINO, BMP, GFR #### [address] [address] Sodium [Moles/Vol] 134 mmol/L Low 136-145 [facility] ([place]) Comment on above: Performed By: #### T CEFERINO, BMP, GFR #### [address] [address] Urea nitrogen [Mass/Vol] 19.0 mg/dL Normal 8.0-22.0 [facility] ([place]) Comment on above: Performed By: #### T CEFERINO, BMP, GFR #### [address] [address] Basophil percentageon 2021 Basophils/100 WBC (Bld) 0.4 % 0-1 [facility] Work Phone: Chloride [Moles/Vol] 99 mmol/L 98-[address] [facility] Work Phone: Eosinophils/100 WBC (Bld) 0.0 % 0-5 [facility] Work Phone: Glucose [Mass/Vol] 147 mg/dL 74-106 [facility] Work Phone: Comment on above: Fasting Glucose resu lt greater than or equal to 126 mg/dL suggests DIABETES MELLITUS per A.D.A. criteria. Neutrophils (Bld) [#/Vol] 14.2 10*3/uL 2.0-7.7 [facility] Work Phone: Neutrophils/100 WBC (Bld) 85.6 % 47-70 [facility] Work Phone: Potassium [Moles/Vol] 3.8 mmol/L 3.5-5.1 [facility]: Sodium [Moles/Vol] 134 mmol/L 136-145 [facility] Work Phone: WBC (Bld) [#/Vol] 16.5 10*3/uL 4.4-11.0 [facility] Work Phone: Blood erythrocytes count (nu mber/volume)on 08-23-2022 RBC (Bld) [#/Vol] 5.50 10*6/uL 4.6-6.2 [facility] Work Phone: Blood hemoglobin measurement (mass/volume)on 08-23-2022 Hemoglobin (Bld) [Mass/Vol] 15.5 g/dL 13.0-16.5 [facility] Work Phone: Blood lymphocytes/100 leukoc yteson 08-23-2022 Lymphocytes/100 WBC (Bld) 3.5 % 19-41 [facility] Work Phone: Blood monocytes/100 leukocyt eson 08-23-2022 Monocytes/100 WBC (Bld) 9.9 % 0-10 [facility] Work Phone: Blood platelet mean volumeon 08-23-2022 Platelet mean volume (Bld) [Entitic vol] 10.0 fL 6.2-12.0 [facility] Work Phone: CBCon 08-23-2022 Erythrocyte distribution width (RBC) [Ratio] 14.3 % Normal 11.5-15.5 [facility] ([place]) Comment on above: Performed By: #### T EMILY DE LA VEGA, GFR #### [address] [address] Hematocrit (Bld) [Volume fraction] 45.5 % Normal 40.0-52.0 [facility] ([place]) Comment on above: Performed By: #### T EMILY DE LA VEGA, GFR #### [address] [address] Hgb 14.7 G/dL Normal 13.0-17.5 [facility] ([place] Comment on above: Performed By: #### T EMILY DE LA VEGA, GFR #### [address] [address] MCH (RBC) [Entitic mass] 27.4 pg Normal 27.0-33.0 [facility] ([place]) Comment on above: Performed By: #### T EMILY DE LA VEGA, GFR #### [address] [address] MCHC 32.4 G/dL Normal 32.0-36.0 [facility] ([place]) Comment on above: Performed By: #### T EMILY DE LA VEGA, GFR #### [address] [address] MCV (RBC) [Entitic vol] 84.5 fL Normal 81.0-100.0 A [facility] ([place]) Comment on above: Performed By: #### T EMILY DE LA VEGA, GFR #### [address] [address] Platelet 229 10 3/mcL Normal 150-450 [facility] ([place]) Comment on above: Performed By: #### T EMILY DE LA VEGA, GFR #### [place] [address] Platelet mean volume (Bld) [Entitic vol] 8.1 fL Normal 6.4-10.5 [facility] ([place]) Comment on above: Performed By: #### T EMILY DE LA VEGA, GFR #### [place] [address] RBC 5.39 10 6/mcL Normal 4.50-6.00 [facility] ([place]) Comment on above: Performed By: #### T EMILY DE LA VEGA, GFR #### [place] [address] WBC 13.6 10 3/mcL High 4.5-10.8 [facility] ([place]) Comment on above: Performed By: #### T EMILY DE LA VEGA, GFR #### [place] [address] CVFLURVon 08-23-2022 FLU A PCR Negative Normal Negative [facility] ([place]) Comment on above: Result Comment: Note s [id number] Performed By: #### C VFLURV #### [place] [address] FLU B PCR Negative Normal Negative [facility] ([place]) Comment on above: Result Comment: [place] [id number] Performed By: #### C VFLURV #### [place] [address] RSV PCR Negative Normal Negative [facility] ([place]) Comment on above: Result Comment: Note s [id number] Performed By: #### C VFLURV #### [place] [address] SARS-CoV-2 (COVID-19) RNA JELENA+probe Ql (Unsp spec) Negative Normal Negative [facility] ([place]) Comment on above: Result Comment: Note s [id number] This test has been authorized by FDA under an EUA for use by authorized laboratories and has not been FDA cleared or approved. Results from the Xpert Xpress SARS-CoV-2/Flu/RSV or Xpert Xpress SARS-CoV-2 only test should be correlated with the clinical history, epidemiological data, and other data available to the clinician evaluating the patient. Performance of the Xpert Xpress SARS-CoV-2/Flu/RSV or Xpert Xpress SARS-CoV-2 only test has only been established in nasopharyngeal swab specimens. Erroneous test results might occur from improper specimen collection; failure to follow the recommended sample collection, handling, and storage procedures; technical error; or sample mix-up.False negative results may occur if virus is present at levels below the analytical limit of detection. Viral nucleic acid may persist in vivo, independent of virus viability. Detection of analyte target(s) does not imply that the corresponding virus(es) are infectious or are the causative agents for clinical symptoms.Recent patient exposure to FluMist or other live attenuated influenza vaccines may cause inaccurate positive results. Performed By: #### C [facility] #### [place] [address] Determination of erythrocyte mean corpuscular volume (MCV)on 08-23-2022 MCV (RBC) [Entitic vol] 84.7 fL 80-94 [facility] Work Phone: Hematocrit Auto (Bld) [Volum e fraction]on 08-23-2022 Hematocrit (Bld) [Volume fraction] 46.6 % 40-54 [facility] Work Phone: LABORATORYOrdered By: SYSTEM SYSTEM on 08-23-2022 Basophils (Bld) [#/Vol] 0.0 103/mcL Invalid Interpretation Code 0.0 - 0.3 10^3/mcL Workflow SS Basophils/100 WBC (Bld) 0.3 % Invalid Interpretation Code 0.0 - 2.5 % Workflow SS Calcium [Mass/Vol] 9.9 mg/dL Invalid Interpretation Code 8.7 - 10.4 mg/dL ADM SS Chloride [Moles/Vol] 97 mmol/L Invalid Interpretation Code 98 - 110 mEq/L ADM SS CO2 [Moles/Vol] 30 mmol/L Invalid Interpretation Code 22 - 32 mEq/L AH ADM SS Creatinine [Mass/Vol] 0.78 mg/dL Invalid Interpretation Code 0.60 - 1.40 mg/dL AH ADM SS Electrolyte Balance 7.0 mEq/L Invalid Interpretation Code 4.0 - 15.0 mEq/L AH ADM SS Eosinophils (Bld) [#/Vol] 0.1 103/mcL Invalid Interpretation Code 0.0 - 0.7 10^3/mcL AH Workflow SS Eosinophils/100 WBC (Bld) 0.9 % Invalid Interpretation Code 0.0 - 6.0 % AH Workflow SS Erythrocyte distribution width (RBC) [Ratio] 14.3 % Invalid Interpretation Code 11.5 - 15.5 % AH Workflow SS GFR/1.73 sq M.predicted among blacks MDRD (S/P/Bld) [Vol rate/Area] ml/min/1.73sqm Invalid Interpretation Code AH ADM SS GFR/1.73 sq M.predicted among non-blacks MDRD (S/P/Bld) [Vol rate/Area] ml/min/1.73sqm Invalid Interpretation Code AH ADM SS Glucose [Mass/Vol] 120 mg/dL Invalid Interpretation Code 82 - 115 mg/dL ADM SS Hematocrit (Bld) [Volume fraction] 45.5 % Invalid Interpretation Code 40.0 - 52.0 % AH Workflow SS Hemoglobin (Bld) [Mass/Vol] 14.7 G/dL Invalid Interpretation Code 13.0 - 17.5 G/dL AH Workflow SS Lymphocytes (Bld) [#/Vol] 0.6 103/mcL Invalid Interpretation Code 0.9 - 4.3 10^3/mcL AH Workflow SS Lymphocytes/100 WBC (Bld) 4.7 % Invalid Interpretation Code 20.0 - 40.0 % AH Workflow SS MCH (RBC) [Entitic mass] 27.4 pg Invalid Interpretation Code 27.0 - 33.0 pg AH Workflow SS MCHC 32.4 G/dL Invalid Interpretation Code 32.0 - 36.0 G/dL AH Workflow SS MCV (RBC) [Entitic vol] 84.5 fL Invalid Interpretation Code 81.0 - 100.0 fL AH Workflow SS Monocyte distribution width Auto (Bld) [Entitic vol] 19.08 Invalid Interpretation Code 0.00 - 20.00 AH Workflow SS Comment on above: Result Comment: For ED adult patients suspected of sepsis, MDW<=20.0 does not rule out sepsis or risk of sepsis Monocytes (Bld) [#/Vol] 1.2 103/mcL Invalid Interpretation Code 0.1 - 1.4 10^3/mcL AH Workflow SS Monocytes/100 WBC (Bld) 8.6 % Invalid Interpretation Code 2.0 - 13.0 % AH Workflow SS Neutrophils (Bld) [#/Vol] 11.6 103/mcL Invalid Interpretation Code 2.3 - 8.1 10^3/mcL AH Workflow SS Neutrophils/100 WBC (Bld) 85.5 % Invalid Interpretation Code 50.0 - 75.0 % AH Workflow SS Platelet mean volume (Bld) [Entitic vol] 8.1 fL Invalid Interpretation Code 6.4 - 10.5 fL AH Workflow SS Platelets (Bld) [#/Vol] 229 103/mcL Invalid Interpretation Code 150 - 450 10^3/mcL AH Workflow SS Potassium [Moles/Vol] 4.3 mmol/L Invalid Interpretation Code 3.5 - 5.0 mEq/L AH ADM SS RBC (Bld) [#/Vol] 5.39 106/mcL Invalid Interpretation Code 4.50 - 6.00 10^6/mcL AH Workflow SS Sodium [Moles/Vol] 134 mmol/L Invalid Interpretation Code 136 - 145 mEq/L ADM SS Troponin I.cardiac DL <= 0.01 ng/mL [Mass/Vol] 4.19 ng/L Invalid Interpretation Code 0.00 - 54.00 ng/L AH ADM SS Urea nitrogen [Mass/Vol] 19.0 mg/dL Invalid Interpretation Code 8.0 - 22.0 mg/dL ADM SS Urea nitrogen/Creatinine [Mass ratio] 24.4 ratio Invalid Interpretation Code 10.0 - 22.0 ratio AH ADM SS WBC (Bld) [#/Vol] 13.6 103/mcL Invalid Interpretation Code 4.5 - 10.8 10^3/mcL AH Workflow SS LABORATORYOrdered By: Sejal Abreu on 08-23-2022 FLUAV RNA JELENA+probe Ql (Resp) Negative 3 (08/23/22 12:22 PM) Invalid Interpretation Code Negative Auto Viro/Sero SS Comment on above: Result Comment: [place] [id number] FLUBV RNA JELENA+probe Ql (Resp) Negative 4 (08/23/22 12:22 PM) Invalid Interpretation Code Negative Auto Viro/Sero SS Comment on above: Result Comment: [place] s [id number] RSV PCR Negative 5 (08/23/22 12:22 PM) Invalid Interpretation Code Negative Auto Viro/Sero SS Comment on above: Result Comment: [place] [id number] SARS-CoV-2 (COVID-19) RNA JELENA+probe Ql (Resp) Negative 2 (08/23/22 12:22 PM) Invalid Interpretation Code Negative AH Auto Viro/Sero SS Comment on above: Result Comment: [place] s [id number] Laboratory - Chemistry and C hemistry - challengeon 08-23-2022 CO2 [Moles/Vol] 27.0 mmol/L 21.0-32.0 [facility] Work Phone: [phone] Urea nitrogen/Creatinine [Mass ratio] 23.0 mg/mg 10-20 [facility] Work Phone: [phone] Laboratory - Hematology and Cell countson 08-23-2022 Erythrocyte distribution width (RBC) [Entitic vol] 42.4 fL 35.1-43.9 [facility] Work Phone: [phone] Erythrocyte distribution width (RBC) [Ratio] 13.7 % 11.6-14.6 [facility] Work Phone: [phone] Immature granulocytes/100 WBC (Bld) 0.600 % 0.0-0.9 [facility] Work Phone: [phone] Comment on above: IG% - Immature Granu locytes (promyelocytes, myelocytes and metamyelocytes) > 1% indicates that a LEFT SHIFT is Present. MCH (RBC) [Entitic mass] 28.2 pg 27.0-32.0 [facility] Work Phone: [phone] Nucleated RBC/100 WBC (Bld) [Ratio] 0 % 0-5 [facility] Work Phone: [phone] MCHC Auto (RBC) [Mass/Vol]on 08-23-2022 MCHC (RBC) [Mass/Vol] 33.3 g/dL 32-36 [facility] Work Phone: [phone] No Panel Informationon 08-23 Estimated Creatinine Clearance Calc 61.14 ml/min [facility] Work Phone: [phone] Estimated GFR (MDRD) Amer 95 mL/min >60 [facility] Work Phone: [phone] Comment on above: GFR Calc Estimated GFR (MDRD) Non-Af Amer 78 mL/min >60 [facility] Work Phone: [phone] Comment on above: Non- GFR Calc Troponin I High Sensitivity 13 pg/mL 3.0-78.0 [facility] Work Phone: Comment on above: Please Note: New Lana t Units and Gender Specific Reference Ranges. For more information see Policy Stat Procedure [place] High Sensitivity Troponin (TNIH) and attachments. Platelets bldon 08-23-2022 Platelets (Bld) [#/Vol] 256 10*3/uL 150-450 [facility] Work Phone: Review by pathologiston 07-27 Pathologist review Geraldo (Unsp spec) [Interp] Reviewed [facility] Work Phone: Comment on above: Previous reported re sult: Xin españa Edited by: ESTELA on 08/24/22:1137Neutrophilic leukocytosis.Clinical correlation necessary.Desmond Camacho M.D. 08/24/22 AMENDED REPORT 08/24/22 1137 PATH REV previously reported as: Xin españa Serum or plasma calcium christiana urement (mass/volume)on 08-23-2022 Calcium [Mass/Vol] 9.4 mg/dL 8.5-10.1 [facility] Work Phone: Serum or plasma creatinine m easurement (mass/volume)on 08-23-2022 Creatinine [Mass/Vol] 1.00 mg/dL 0.70-1.30 [facility] Work Phone: Comment on above: The validity of the calculated GFR & GFRAA in patients over 70 years has not been determined. Clinical correlation is essential. Serum or plasma urea nitroge n measurement (mass/volume)on 08-23-2022 Urea nitrogen [Mass/Vol] 23 mg/dL 7-18 [facility] Work Phone: TROPHSon 08-23-2022 Troponin I High Sensitivity 4.19 ng/L Normal 0.00-54.00 [facility] ([place]) Comment on above: Result Comment: If t he High Sensitive Troponin result is below the 99th percentile value (<45 ng/L) at the first blood draw, at least two additional blood samples should be drawn before results are interpreted as negative for AMI. Performed By: #### T ROPHS, BMP, GFR #### [facility] [address] [place] [id number] Thin prep Papanicolaou smear with manual screeningon 08-23-2022 Thin prep Papanicolaou smear with manual screening 01-07 [facility] Work Phone: XR CHEST 1 VIEWon 08-23-2022 XR CHEST 1 VIEW ORIGINAL EXAMINATION: ONE XRAY VIEW OF THE CHEST 08/23/2022 11:40 am COMPARISON: 06/20/2021. HISTORY: ORDERING SYSTEM PROVIDED HISTORY: Reason for Exam: Chest pain. FINDINGS: The cardiac and mediastinal contours are within normal limits. Mild atherosclerosis of the thoracic aorta is noted. Partially calcified mediastinal and hilar lymph nodes are suggestive of prior granulomatous disease. There is no appreciable pneumothorax, pleural effusion, or vascular congestion. No focal consolidations. Fairly advanced degenerative changes are noted of the shoulders bilaterally. Mild degenerative changes are present of the spine. IMPRESSION: 1. No evidence of acute cardiopulmonary process. Interpreted by: Ketan Mcbride DO Preliminary Report By: Ketan Mcbride DO Electronically signed By Ketan Mcbride DO Dictated Date: 08/23/2022 11:48:19 AM Prelim Date: 08/23/2022 11:49:31 AM Sign Date: 08/23/2022 11:49:31 AM Ordering Provider: JUAN Wang [facility] ([place]) LABORATORYOrdered By: SYSTEM SYSTEM on 06-20-2021 Base excess Calc (BldMV) [Moles/Vol] 5.0 mEq/L Invalid Interpretation Code 4.0 - 15.0 mEq/L AH ADM SS Basophils (Bld) [#/Vol] 0.10 103/mcL Invalid Interpretation Code 0.00 - 0.27 10^3/mcL AH Remisol SS Basophils/100 WBC (Bld) 0.8 % Invalid Interpretation Code 0.0 - 2.5 % AH Remisol SS Calcium [Mass/Vol] 9.4 mg/dL Invalid Interpretation Code 8.4 - 10.1 mg/dL AH ADM SS Chloride [Moles/Vol] 105 mmol/L Invalid Interpretation Code 98 - 110 mEq/L AH ADM SS CO2 [Moles/Vol] 28 mmol/L Invalid Interpretation Code 22 - 32 mEq/L AH ADM SS Creatinine [Mass/Vol] 0.68 mg/dL Invalid Interpretation Code 0.60 - 1.40 mg/dL AH ADM SS Eosinophils (Bld) [#/Vol] 0.30 103/mcL Invalid Interpretation Code 0.00 - 0.65 10^3/mcL AH Remisol SS Eosinophils/100 WBC (Bld) 3.0 % Invalid Interpretation Code 0.0 - 6.0 % AH Remisol SS Erythrocyte distribution width (RBC) [Ratio] 14.3 % Invalid Interpretation Code 11.5 - 15.5 % AH Remisol SS GFR/1.73 sq M.predicted among blacks MDRD (S/P/Bld) [Vol rate/Area] ml/min/1.73sqm Invalid Interpretation Code AH ADM SS GFR/1.73 sq M.predicted among non-blacks MDRD (S/P/Bld) [Vol rate/Area] ml/min/1.73sqm Invalid Interpretation Code AH ADM SS Glucose [Mass/Vol] 126 mg/dL Invalid Interpretation Code 82 - 115 mg/dL AH ADM SS Hematocrit (Bld) [Volume fraction] 41.7 % Invalid Interpretation Code 40.0 - 52.0 % AH Remisol SS Hemoglobin (Bld) [Mass/Vol] 13.8 G/dL Invalid Interpretation Code 13.0 - 17.5 G/dL AH Remisol SS Lymphocytes (Bld) [#/Vol] 0.80 103/mcL Invalid Interpretation Code 0.90 - 4.32 10^3/mcL AH Remisol SS Lymphocytes/100 WBC (Bld) 8.3 % Invalid Interpretation Code 20.0 - 40.0 % AH Remisol SS MCH (RBC) [Entitic mass] 27.8 pg Invalid Interpretation Code 27.0 - 33.0 pg AH Remisol SS MCHC (RBC) [Mass/Vol] 33.0 G/dL Invalid Interpretation Code 32.0 - 36.0 G/dL AH Remisol SS MCV (RBC) [Entitic vol] 84.2 fL Invalid Interpretation Code 81.0 - 100.0 fL AH Remisol SS Monocytes (Bld) [#/Vol] 0.40 103/mcL Invalid Interpretation Code 0.09 - 1.40 10^3/mcL AH Remisol SS Monocytes/100 WBC (Bld) 4.9 % Invalid Interpretation Code 2.0 - 13.0 % AH Remisol SS Neutrophils (Bld) [#/Vol] 7.50 103/mcL Invalid Interpretation Code 2.25 - 8.10 10^3/mcL AH Remisol SS Neutrophils/100 WBC (Bld) 83.0 % Invalid Interpretation Code 50.0 - 75.0 % AH Remisol SS Platelet mean volume (Bld) [Entitic vol] 7.5 fL Invalid Interpretation Code 6.4 - 10.5 fL AH Remisol SS Platelets (Bld) [#/Vol] 309 103/mcL Invalid Interpretation Code 150 - 450 10^3/mcL AH Remisol SS Potassium [Moles/Vol] 3.7 mmol/L Invalid Interpretation Code 3.5 - 5.0 mEq/L AH ADM SS RBC (Bld) [#/Vol] 4.96 106/mcL Invalid Interpretation Code 4.50 - 6.00 10^6/mcL AH Remisol SS Sodium [Moles/Vol] 138 mmol/L Invalid Interpretation Code 136 - 145 mEq/L AH ADM SS Urea nitrogen [Mass/Vol] 18.0 mg/dL Invalid Interpretation Code 8.0 - 22.0 mg/dL AH ADM SS Urea nitrogen/Creatinine [Mass ratio] 26.5 ratio Invalid Interpretation Code 10.0 - 22.0 ratio AH ADM SS WBC (Bld) [#/Vol] 9.10 103/mcL Invalid Interpretation Code 4.50 - 10.80 10^3/mcL AH Remisol SS No Panel Informationon 06-20 Microscopic examination of blood, culture Culture has been received in lab and is no growth to date. Routine cultures are held for 5 days. [facility] Work Phone: OPERATIVE PROCEDURESon 11-25 OPERATIVE PROCEDURES [facility] OPERATIVE REPORT NAME ACCOUNT SEX AGE ADMIT DISCHARGE PT MED. RECORD# NUMBER DATE DATE TYPE BEATRIS QUINN [id number] M 69 11/18/20 2 [id number] ROOM: [facility] DATE OF : 1950 DICTATING PHYSICIAN: Sahara Jay DATE OF SURGERY: November 18, 2020 SURGEON: Sahara Jay MD [employer]: ANESTHESIOLOGIST: ANESTHETIC: MAC. PREOPERATIVE DIAGNOSIS: Screening colonoscopy. POSTOPERATIVE DIAGNOSIS: Sigmoid diverticulosis. OPERATION PERFORMED: Colonoscopy. COMPLICATIONS: None. ESTIMATED BLOOD LOSS: None. DRAINS: None. SPECIMENS: None. SIGNIFICANT FINDINGS: Colon prep was good. Extensive diverticulosis confined to the sigmoid colon without complication. No other abnormalities. DISPOSITION: Home. Diet: Regular. Activity: Regular. Medications: Regular. RECOMMENDATIONS: Repeat screening colonoscopy in 10 years. DESCRIPTION OF OPERATION: Following the initiation of MAC anesthesia, the patient was placed in the left lateral decubitus position. A digital rectal examination was performed. There were no findings on digital rectal examination. The flexible colonoscope was then introduced into the anus and advanced to the ileocecal junction under direct visualization. While at the ileocecal junction, the scope was used to intubate the terminal ileum. There were no abnormalities within the terminal ileum. The Page 1 of 2 BEATRIS QUINN Operative Report BEATRIS QUINN : 1950 scope was then slowly withdrawn from that vantage point, and it was noted that the colonic prep was good. There were no abnormalities appreciated within the cecum, ascending colon, transverse colon or descending colon. Within the sigmoid colon, he was found to have extensive diverticulosis. There was no evidence of diverticulitis and/or diverticular bleeding. The scope was withdrawn into the rectum and retroflexed. There were no rectal abnormalities. The scope was then straightened, the colon desufflated, and the scope removed. The patient was then awakened and taken to the PACU in good and stable condition. Dictated By: Sahara Jay MD 11/18/20 13:08 JOB #: [id number] Transcribed By: [email or web address] 11/19/20 07:37 Electronically signed by: E-SIGN DR. JAY 11/25/20 09:12 Page 2 of 2 BEATRIS QUINN Operative Report Normal [facility] Gram stain for investigation of transfusion reaction Microscopic observation Gram stain Nom (Unsp spec) [facility] Work Phone: Influenza virus A and B and SARS-CoV-2 (COVID-19) Ag panel - Upper respiratory specim SARS-CoV-2 (COVID-19) RNA JELENA+probe Ql (Resp) [facility] Work Phone: Microbial respiratory cultur e Bacteria identified Respiratory culture Nom (Unsp spec) [facility] Work Phone: No Panel Information Streptococcus pneumoniae Antigen (M [facility] Work Phone: Respiratory pathogens DNA an d RNA 12b panel JELENA+probe (Unsp spec) Respiratory Panel (PCR) Influenza A (Sub type H1) [facility] Work Phone: Vital Signs Date Time Vital Sign Value Performing Clinician Facility 06-02-2025 11:05-0400 Body temperature 98 [degF] Dr. Vivi Pike DO Work Phone: 0(559)059-652095 [place] [address] 06-02-2025 11:05-0400 Diastolic blood pressure 78 mm[Hg] Dr. Vivi Pike DO Work Phone: 9(293)682-132495 [place] [address] 06-02-2025 11:05-0400 Heart rate 92 /min Dr. Vivi Pike DO Work Phone: 0(156)518-260095 [place] [address] 06-02-2025 11:05-0400 Respiratory rate 16 /min Dr. Vivi Pike DO Work Phone: 0(122)009-234695 [place] [address] 06-02-2025 11:05-0400 SaO2% (BldA) [Mass fraction] 96 % Dr. Vivi Pike DO Work Phone: 0(298)786-431995 [place] [address] 06-02-2025 11:05-0400 Systolic blood pressure 139 mm[Hg] Dr. Vivi Pike DO Work Phone: 5(970)453-819195 [place] [address] 06-01-2025 13:35-0400 Body height 167.[address] Vivi Pike DO Work Phone: 2(214)785-864095 [place] [address] 06-01-2025 13:35-0400 Body mass index (BMI) [Ratio] 19 kg/m2 Dr. Vivi Pike DO Work Phone: 1(862)403-919983 [place] [address] 06-01-2025 13:35-0400 Body weight 53.[address] Vivi Pike DO Work Phone: 5(403)386-608795 [place] [address] 06-01-2025 11:59-0400 Body temperature 98.2 [degF] Dr. Vivi Pike DO Work Phone: 7(247)172-270595 [place] [address] 06-01-2025 11:59-0400 Diastolic blood pressure 85 mm[Hg] Dr. Vivi Pike DO Work Phone: [facility] 06-01-2025 11:59-0400 Heart rate 80 /min Dr. Vivi Pike DO Work Phone: [facility] 06-01-2025 11:59-0400 Respiratory rate 16 /min Dr. Vivi Pike DO Work Phone: [facility] 06-01-2025 11:59-0400 SaO2% (BldA) [Mass fraction] 98 % Dr. Vivi Pike DO Work Phone: 7(400)331-934883 [place] [address] 06-01-2025 11:59-0400 Systolic blood pressure 156 mm[Hg] Dr. Vivi Pike DO Work Phone: [facility] 06-01-2025 07:22-0400 Body mass index (BMI) [Ratio] 19.5 kg/m2 Dr. iVvi Pike DO Work Phone: [facility] 06-01-2025 07:22-0400 Body weight [address] Vivi Pike DO Work Phone: [facility] 06-01-2025 07:20-0400 Body height 167.[address] Viiv Pike DO Work Phone: [facility] 04-16-2025 09:50-0400 Body mass index (BMI) [Ratio] 21.04 kg/m2 Tigre Restrepo MD Work Phone: [facility] 04-16-2025 09:50-0400 Body weight 55.6 kg Tigre Restrepo MD Work Phone: [facility] 04-16-2025 09:50-0400 Diastolic blood pressure 72 mm[Hg] Tigre Restrepo MD Work Phone: [facility] 04-16-2025 09:50-0400 Heart rate 72 /min Tigre Restrepo MD Work Phone: [facility] 04-16-2025 09:50-0400 SaO2% (BldA) [Mass fraction] 96 % Tigre Restrepo MD Work Phone: [facility] 04-16-2025 09:50-0400 Systolic blood pressure 128 mm[Hg] Tigre Restrepo MD Work Phone: [facility] 12-02-2024 16:21-0400 Body temperature 97.7 [degF] Dr. Todd Valdovinos DO Work Phone: [facility] 12-02-2024 16:21-0400 Diastolic blood pressure 77 mm[Hg] Dr. Todd Valdovinos DO Work Phone: [facility] 12-02-2024 16:21-0400 Heart rate 95 /min Dr. Todd Valdovinos DO Work Phone: [facility] 12-02-2024 16:21-0400 Respiratory rate 18 /min Dr. Todd Valdovinos DO Work Phone: [facility] 12-02-2024 16:21-0400 SaO2% (BldA) [Mass fraction] 94 % Dr. Todd Valdovinos DO Work Phone: [facility] 12-02-2024 16:21-0400 Systolic blood pressure 143 mm[Hg] Dr. Todd Valdovinos DO Work Phone: [facility] 12-02-2024 10:45-0400 Body height 167.[address] Todd Valdovinos DO Work Phone: [facility] 12-02-2024 10:45-0400 Body weight 56.[address] Todd Valdovinos DO Work Phone: [facility] 12-01-2024 11:55-0400 Inhaled oxygen flow rate 2 L/min Dr. Todd Valdovinos DO Work Phone: [facility] 12-01-2024 09:18-0400 Body mass index (BMI) [Ratio] 20 kg/m2 Dr. Todd Valdovinos DO Work Phone: [facility] 12-01-2024 09:00-0400 Body temperature 98.4 [degF] Dr. Jr Ryan DO Work Phone: [facility] 12-01-2024 09:00-0400 Diastolic blood pressure 76 mm[Hg] Dr. Jr Ryan DO Work Phone: [facility] 12-01-2024 09:00-0400 Heart rate 83 /min Dr. Jr Ryan DO Work Phone: [facility] 12-01-2024 09:00-0400 Inhaled oxygen flow rate 1 L/min Dr. Jr Ryan DO Work Phone: [facility] 12-01-2024 09:00-0400 Respiratory rate 18 /min Dr. Jr Ryan DO Work Phone: [facility] 12-01-2024 09:00-0400 SaO2% (BldA) [Mass fraction] 96 % Dr. Jr Ryan DO Work Phone: [facility] 12-01-2024 09:00-0400 Systolic blood pressure 129 mm[Hg] Dr. Jr Ryan DO Work Phone: [facility] 12-01-2024 06:21-0400 Body height 167.[address] rJ Ryan DO Work Phone: [facility] 12-01-2024 06:21-0400 Body mass index (BMI) [Ratio] 20.2 kg/m2 Dr. Jr Ryan DO Work Phone: [facility] 12-01-2024 06:21-0400 Body weight 57.[address] Jr Ryan DO Work Phone: [facility] 10-16-2024 08:50-0500 Body height 162.6 cm Tigre Restrepo MD Work Phone: [facility] 10-16-2024 08:50-0500 Body mass index (BMI) [Ratio] 22.48 kg/m2 Tigre Restrepo MD Work Phone: [facility] 10-16-2024 08:50-0500 Body weight 59.4 kg Tigre Restrepo MD Work Phone: [facility] 10-16-2024 08:50-0500 Diastolic blood pressure 76 mm[Hg] Tigre Restrepo MD Work Phone: [facility] 10-16-2024 08:50-0500 Heart rate 79 /min Tigre Restrepo MD Work Phone: [facility] 10-16-2024 08:50-0500 SaO2% (BldA) [Mass fraction] 94 % Tigre Restrepo MD Work Phone: [facility] 10-16-2024 08:50-0500 Systolic blood pressure 153 mm[Hg] Tigre Restrepo MD Work Phone: [facility] 05-22-2024 08:14-0400 Body height 162.6 cm Claire Turner MD Work Phone: [facility] 05-22-2024 08:14-0400 Body mass index (BMI) [Ratio] 21.95 kg/m2 Claire Turner MD Work Phone: [facility] 05-22-2024 08:14-0400 Body weight 58 kg Claire Turner MD Work Phone: [facility] 05-22-2024 08:14-0400 Diastolic blood pressure 70 mm[Hg] Claire Turner MD Work Phone: [facility] 05-22-2024 08:14-0400 Heart rate 69 /min Claire Turner MD Work Phone: [facility] 05-22-2024 08:14-0400 SaO2% (BldA) [Mass fraction] 95 % Claire Turner MD Work Phone: [facility] 05-22-2024 08:14-0400 Systolic blood pressure 136 mm[Hg] Claire Turner MD Work Phone: [facility] 05-15-2024 10:51-0400 Body mass index (BMI) [Ratio] 20.56 kg/m2 Mehreen Crow MD Work Phone: [facility] 05-15-2024 10:51-0400 Body temperature 97.2 [degF] Mehreen Crow MD Work Phone: [facility] 05-15-2024 10:51-0400 Body weight 55.9 kg Mehreen Crow MD Work Phone: [facility] 05-15-2024 10:51-0400 Diastolic blood pressure 78 mm[Hg] Mehreen Crow MD Work Phone: [facility] 05-15-2024 10:51-0400 Heart rate 51 /min Mehreen Crow MD Work Phone: [facility] Comment on above: Took anxiety tablet this morning 05-15-2024 10:51-0400 Respiratory rate 16 /min Mehreen Crow MD Work Phone: [facility] 05-15-2024 10:51-0400 SaO2% (BldA) [Mass fraction] 96 % Mehreen Crow MD Work Phone: [facility] 05-15-2024 10:51-0400 Systolic blood pressure 150 mm[Hg] Mehreen Crow MD Work Phone: [facility] 03-24-2024 11:16-0400 Body height 164.9 cm Tigre Restrepo MD Work Phone: [facility] 03-24-2024 11:16-0400 Body mass index (BMI) [Ratio] 20.56 kg/m2 Tigre Restrepo MD Work Phone: [facility] 03-24-2024 11:16-0400 Body weight 55.9 kg Tigre Restrepo MD Work Phone: [facility] 03-24-2024 11:16-0400 Diastolic blood pressure 77 mm[Hg] Tigre Restrepo MD Work Phone: [facility] 03-24-2024 11:16-0400 Heart rate 66 /min Tigre Restrepo MD Work Phone: [facility] 03-24-2024 11:16-0400 SaO2% (BldA) [Mass fraction] 97 % Tigre Restrepo MD Work Phone: [facility] 03-24-2024 11:16-0400 Systolic blood pressure 150 mm[Hg] Tigre Restrepo MD Work Phone: [facility] 12-20-2023 13:37-0400 Inhaled oxygen flow rate 2 L/min Dr. Jr Ryan Work Phone: [facility] 12-20-2023 12:11-0400 Body temperature 100 [degF] Dr. Jr Ryan Work Phone: [facility] 12-20-2023 12:11-0400 Diastolic blood pressure 93 mm[Hg] Dr. Jr Ryan Work Phone: [facility] 12-20-2023 12:11-0400 Heart rate 86 /min Dr. Jr Ryan Work Phone: [facility] 12-20-2023 12:11-0400 Respiratory rate 16 /min Dr. Jr Ryan Work Phone: [facility] 12-20-2023 12:11-0400 SaO2% (BldA) [Mass fraction] 96 % Dr. Jr Ryan Work Phone: [facility] 12-20-2023 12:11-0400 Systolic blood pressure 157 mm[Hg] Dr. Jr Ryan Work Phone: [facility] 12-18-2023 14:53-0400 Body height 167.[address] Jr Ryan Work Phone: [facility] 12-18-2023 14:53-0400 Body weight 56.[address] Jr Ryan Work Phone: [facility] 12-17-2023 16:02-0400 Body mass index (BMI) [Ratio] 20 kg/m2 Dr. Jr Ryan Work Phone: 2(907)106-920782 [address] 12-17-2023 15:33-0400 Body temperature 98.7 [degF] Dr. Jr Ryan Work Phone: 8(376)667-552186 [place] [address] 12-17-2023 15:33-0400 Diastolic blood pressure 91 mm[Hg] Dr. Jr Ryan Work Phone: 7(849)383-113582 [address] 12-17-2023 15:33-0400 Heart rate 101 /min Dr. Jr Ryan Work Phone: 6(125)026-884386 [place] [address] 12-17-2023 15:33-0400 Respiratory rate 23 /min Dr. Jr Ryan Work Phone: 9(697)451-995586 [place] [address] 12-17-2023 15:33-0400 SaO2% (BldA) [Mass fraction] 97 % Dr. Jr Ryan Work Phone: 9(956)882-649086 [place] [address] 12-17-2023 15:33-0400 Systolic blood pressure 157 mm[Hg] Dr. Jr Ryan Work Phone: 1(391)373-626886 [place] [address] 12-17-2023 15:00-0400 Inhaled oxygen flow rate 3 L/min Dr. Jr Ryan Work Phone: 6(220)309-966886 [place] [address] 12-17-2023 13:26-0400 Body height 167.[address] Jr Ryan Work Phone: 9(839)198-918486 [place] [address] 12-17-2023 13:26-0400 Body mass index (BMI) [Ratio] 20.6 kg/m2 Dr. Jr Ryan Work Phone: 8(911)440-328382 [address] 12-17-2023 13:26-0400 Body weight [address] Jr Ryan Work Phone: 3(074)692-172386 [place] [address] 12-11-2023 11:51-0400 Body temperature 97.6 [degF] [facility] 12-11-2023 11:51-0400 Diastolic blood pressure 78 mm[Hg] [facility] 12-11-2023 11:51-0400 Heart rate 89 /min [facility] 12-11-2023 11:51-0400 Respiratory rate 18 /min [facility] 12-11-2023 11:51-0400 SaO2% (BldA) [Mass fraction] 98 % [facility] 12-11-2023 11:51-0400 Systolic blood pressure 134 mm[Hg] [facility] 12-11-2023 09:04-0400 Body height 167.64 cm [facility] 12-11-2023 09:04-0400 Body mass index (BMI) [Ratio] 21.9 kg/m2 [facility] 12-11-2023 09:04-0400 Body weight 61.64 kg [facility] 10-29-2023 09:33-0500 Body temperature 98.1 [degF] [facility] 10-29-2023 09:33-0500 Diastolic blood pressure 79 mm[Hg] [facility] 10-29-2023 09:33-0500 Heart rate 73 /min [facility] 10-29-2023 09:33-0500 Respiratory rate 23 /min [facility] 10-29-2023 09:33-0500 SaO2% (BldA) [Mass fraction] 93 % [facility] 10-29-2023 09:33-0500 Systolic blood pressure 115 mm[Hg] [facility] 10-29-2023 06:51-0500 Body height 167.64 cm [facility] 10-29-2023 06:51-0500 Body mass index (BMI) [Ratio] 21.9 kg/m2 [facility] 10-29-2023 06:51-0500 Body weight 61.5 kg [facility] 07-09-2023 11:16-0500 Diastolic blood pressure 60 mm[Hg] [facility] 07-09-2023 11:16-0500 SaO2% (BldA) [Mass fraction] 96 % [facility] 07-09-2023 11:16-0500 Systolic blood pressure 113 mm[Hg] [facility] 07-09-2023 10:00-0500 Heart rate 70 /min [facility] 07-09-2023 10:00-0500 Respiratory rate 18 /min [facility] 07-09-2023 07:01-0500 Body height 167.64 cm [facility] 07-09-2023 07:01-0500 Body mass index (BMI) [Ratio] 23.2 kg/m2 [facility] 07-09-2023 07:01-0500 Body temperature 98.9 [degF] [facility] 07-09-2023 07:01-0500 Body weight 65.3 kg [facility] 08-30-2022 15:41-0500 Body temperature 98 [degF] Dr. Jr Ryan Work Phone: [facility] Work Phone: 08-30-2022 15:41-0500 Diastolic blood pressure 88 mm[Hg] Dr. Jr Ryan Work Phone: [facility] Work Phone: 08-30-2022 15:41-0500 Heart rate 86 /min Dr. Jr Ryan Work Phone: [facility] Work Phone: 08-30-2022 15:41-0500 Respiratory rate 20 /min Dr. Jr Ryan Work Phone: [facility] Work Phone: 08-30-2022 15:41-0500 SaO2% (BldA) [Mass fraction] 92 % Dr. Jr Ryan Work Phone: [facility] Work Phone: 08-30-2022 15:41-0500 Systolic blood pressure 149 mm[Hg] Dr. Jr Ryan Work Phone: [facility] Work Phone: 08-30-2022 13:56-0500 Inhaled oxygen flow rate 3 L/min Dr. Jr Ryan Work Phone: [facility] Work Phone: 08-30-2022 09:14-0500 Body weight 62.[address] Jr Ryan Work Phone: [facility] Work Phone: 08-28-2022 11:55-0500 Body height 167.[address] Jr Ryan Work Phone: [facility] Work Phone: 08-26-2022 13:51-0500 Body mass index (BMI) [Ratio] 22.8 kg/m2 Dr. Jr Ryan Work Phone: [facility] Work Phone: 08-26-2022 13:17-0500 Body temperature 98.3 [degF] Dr. Jr Ryan Work Phone: [facility] Work Phone: 08-26-2022 13:17-0500 Diastolic blood pressure 72 mm[Hg] Dr. Jr Ryan Work Phone: [facility] Work Phone: 08-26-2022 13:17-0500 Heart rate 83 /min Dr. Jr Ryan Work Phone: [facility] Work Phone: 08-26-2022 13:17-0500 Respiratory rate 20 /min Dr. Jr Ryan Work Phone: [facility] Work Phone: 08-26-2022 13:17-0500 SaO2% (BldA) [Mass fraction] 94 % Dr. Jr Ryan Work Phone: [facility] Work Phone: 08-26-2022 13:17-0500 Systolic blood pressure 130 mm[Hg] Dr. Jr Ryan Work Phone: [facility] Work Phone: 08-26-2022 13:00-0500 Inhaled oxygen flow rate 4 L/min Dr. Jr Ryan Work Phone: [facility] Work Phone: 08-26-2022 10:52-0500 Body height 167.[address] Jr Ryan Work Phone: [facility] Work Phone: 08-26-2022 10:52-0500 Body mass index (BMI) [Ratio] 22.8 kg/m2 Dr. Jr Ryan Work Phone: [facility] Work Phone: 08-26-2022 10:52-0500 Body weight 64.[address] Jr Ryan Work Phone: [facility] Work Phone: 08-23-2022 21:00-0500 Heart rate 118 /min Dr. Jr Ryan Work Phone: [facility] Work Phone: 08-23-2022 21:00-0500 Respiratory rate 26 /min Dr. Jr Ryan Work Phone: [facility] Work Phone: 08-23-2022 21:00-0500 SaO2% (BldA) [Mass fraction] 94 % Dr. Jr Ryan Work Phone: [facility] Work Phone: 08-23-2022 20:27-0500 Inhaled oxygen flow rate 4 L/min [facility] Work Phone: 08-23-2022 20:27-0500 SaO2% (BldA) [Mass fraction] 99 % [facility] Work Phone: 08-23-2022 20:26-0500 Body temperature 97.7 [degF] [facility] Work Phone: 08-23-2022 20:26-0500 Diastolic blood pressure 83 mm[Hg] [facility] Work Phone: 08-23-2022 20:26-0500 Heart rate 103 /min [facility] Work Phone: 08-23-2022 20:26-0500 Respiratory rate 22 /min [facility] Work Phone: 08-23-2022 20:26-0500 Systolic blood pressure 148 mm[Hg] [facility] Work Phone: 08-23-2022 18:25-0500 Body height 167.64 cm [facility] Work Phone: 08-23-2022 18:25-0500 Body mass index (BMI) [Ratio] 22.8 kg/m2 [facility] Work Phone: 08-23-2022 18:25-0500 Body weight 64.41 kg [facility] Work Phone: 08-23-2022 11:43-0500 Body temperature 98.06 [degF] ARCHANA CALLEJAS MD [facility] 08-23-2022 11:43-0500 Body weight 65.3 kg ARCHANA CALLEJAS MD [facility] 08-23-2022 11:43-0500 Diastolic Blood Pressure Non-Invasive 93 1 ARCHANA CALLEJAS MD [facility] 08-23-2022 11:43-0500 Heart rate 102 /min ARCHANA CALLEJAS MD [facility] 08-23-2022 11:43-0500 Respiratory rate 18 /min ARCHANA CALLEJAS MD [facility] 08-23-2022 11:43-0500 Systolic Blood Pressure Non-Invasive 176 1 ARCHANA CALLEJAS MD [facility] 06-20-2021 14:02-0400 Body temperature 97.16 [degF] JAYMIE SUERO DO [facility] 06-20-2021 14:02-0400 Diastolic blood pressure 62 mm[Hg] JAYMIE SUERO DO [facility] 06-20-2021 14:02-0400 Heart rate 74 /min JAYMIE SUERO [employer] [facility] 06-20-2021 14:02-0400 Respiratory rate 22 /min JAYMIE SUERO [employer] [facility] 06-20-2021 14:02-0400 Systolic blood pressure 154 mm[Hg] JAYMIE SUERO [employer] [facility] 06-20-2021 11:40-0400 Body temperature 100.04 [degF] JAYMIE SUERO [employer] [facility] 06-20-2021 11:40-0400 Diastolic blood pressure 90 mm[Hg] JAYMIE SUERO [employer] [facility] 06-20-2021 11:40-0400 Heart rate 87 /min JAYMIE SUERO [employer] [facility] 06-20-2021 11:40-0400 Respiratory rate 24 /min JAYMIE SUERO [employer] [facility] 06-20-2021 11:40-0400 Systolic blood pressure 162 mm[Hg] JAYMIE SUERO [employer] [facility] Encounters Encounter Date Encounter Type Care Provider Facility Start: 06-02-2025 Non-patient / Non-visit Dr. Karen Le DO -[facility] Work Phone: Start: 06-01-2025 ambulatory Karen Le Facility:[facility] Start: 06-01-2025 End: 06-02-2025 Evaluation and management of inpatient Dr. 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 Bradley JOHNS -[facility] Start: 12-02-2024 Non-patient / Non-visit Dr. Anirudh dupree [facility] Work Phone: Start: 12-01-2024 End: 12-01-2024 ambulatory Anirudh [place] [place] Start: 12-01-2024 Non-patient / Non-visit Dr. Anirudh dupree [facility] Work Phone: Start: 12-01-2024 ambulatory Anirudh Thompson Facility:[facility] Start: 12-01-2024 End: 12-02-2024 Evaluation and management of inpatient Dr. Anirudh Thompson [facility] Work Phone: Start: 10-26-2024 End: 10-26-2024 Telephone encounter Tigre Restrepo MD Work Phone: Pulmonary Medicine Comment on above: LMTCB; Patient Reque st (Message regarding ID) Start: 10-19-2024 End: 10-19-2024 Telephone encounter Tigre Restrepo MD Work Phone: Pulmonary Medicine Start: 10-16-2024 End: 10-16-2024 Patient encounter procedure Tigre Restrepo MD Work Phone: Pulmonary Medicine Comment on above: Lung nodules (Primar y Dx); Lung mass; Invasive pulmonary aspergillosis (HCC); Former smoker; Centrilobular emphysema (HCC); Stage 4 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 (HCC); Cavitary lesion of lung; Chest pain on breathing Start: 10-16-2024 End: 10-16-2024 ambulatory TIGRE RESTREPO Facility:[facility] Start: 10-16-2024 End: 10-16-2024 Subsequent hospital visit by physician Ct [facility] Radiology Comment on above: Pneumonia of both braydon ngs due to Pseudomonas species, unspecified part of lung (HCC) [J15.1] Start: 10-09-2024 End: 10-09-2024 Telephone encounter Tigre Restrepo MD Work Phone: Pulmonary Medicine Comment on above: Patient Request (Lana marvin) Start: 07-07-2024 ambulatory Jr [facility] Facility:[facility] Start: 07-01-2024 End: 07-01-2024 Telephone encounter Tigre Restrepo MD Work Phone: Pulmonary Medicine Start: 06-24-2024 ambulatory Jr [facility] Facility:[facility] Start: 06-09-2024 End: 06-09-2024 Telephone encounter Claire Turner MD Work Phone: Cardiology Start: 06-05-2024 ambulatory CLAIRE TURNER [facility] ity:[facility] Start: 06-05-2024 End: 06-05-2024 Subsequent hospital visit by physician Echo [facility] Work Phone: Cardiology Lab Comment on above: Murmur [R01.1] Start: 06-01-2024 End: 06-01-2024 Refill Tigre Restrepo MD Work Phone: Pulmonary Medicine Comment on above: Refill Request Start: 05-28-2024 End: 05-28-2024 Telephone encounter Tigre Restrepo MD Work Phone: [place] Provider Adult Comment on above: Results Start: 05-27-2024 End: 05-28-2024 Telephone encounter Tigre Restrepo MD Work Phone: [place] Provider Adult Start: 05-25-2024 End: 05-26-2024 Telephone encounter Tigre Restrepo MD Work Phone: Pulmonary Medicine Comment on above: Medication Request Start: 05-22-2024 End: 05-22-2024 Patient encounter procedure Claire Turner MD Work Phone: Cardiology Comment on above: Coronary artery dise ase due to lipid rich plaque (Primary Dx); Murmur Start: 05-19-2024 End: 05-19-2024 ambulatory Mehreen Crow MD Work Phone: Pulmonary Medicine Comment on above: Nodule Start: 05-15-2024 End: 05-15-2024 Subsequent hospital visit by physician [facility] Work Phone: Radiology Comment on above: Multiple nodules of lung [R91.8] Start: 05-15-2024 End: 05-15-2024 Patient encounter procedure Mehreen Crow MD Work Phone: Pulmonary Medicine Comment on above: Multiple pulmonary n odules (Primary Dx); Former smoker; Stage 4 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 ([facility]) Start: 05-14-2024 End: 05-14-2024 Orders Only Mehreen Crow MD Work Phone: Pulmonary Medicine Comment on above: Multiple nodules of lung (Primary Dx) Start: 05-08-2024 End: 05-08-2024 Telephone encounter Kiara CRABTREE Admitting Comment on above: Appointment; Broncho scopy Scheduling Start: 05-05-2024 End: 05-05-2024 ambulatory Sahara Weldon MD Work Phone: Pulmonary Medicine Comment on above: Bronchoscopy Schedul ing- CLEARED- Robot candidate (INItial) Start: 04-29-2024 End: 08-20-2024 Telephone encounter Tigre Restrepo MD Work Phone: [facility] [place] Comment on above: Appointment (Schedul e biopsy ) Appointment Start: 04-28-2024 End: 04-29-2024 Telephone encounter Tigre Restrepo MD Work Phone: Pulmonary Medicine Comment on above: Cardiac Clearance Start: 04-21-2024 End: 04-21-2024 Patient encounter procedure Sahara Weldon MD Work Phone: Pulmonary Medicine Start: 04-21-2024 End: 04-21-2024 Telephone encounter Tigre Restrepo MD Work Phone: [place] Provider Adult Comment on above: Appointment Start: 04-21-2024 ambulatory TIGRE RESTREPO Facili ty:[facility] Start: 04-21-2024 End: 04-21-2024 Subsequent hospital visit by physician Injection Pet Ct [facility] Comment on above: Lung nodules [R91.8] Start: 04-10-2024 Telephone encounter Tigre Restrepo MD Work Phone: Pulmonary Medicine Start: 03-27-2024 Telephone encounter Tigre Restrepo MD Work Phone: Pulmonary Medicine Start: 03-27-2024 End: 03-27-2024 Subsequent hospital visit by physician Ct [facility] ([facility]) Work Phone: Cat Scan Comment on above: Chest pain, unspecif ied type [R07.9] Start: 03-26-2024 Telephone encounter Tigre Restrepo MD Work Phone: Pulmonary Medicine Start: 03-25-2024 Telephone encounter Tigre Restrepo MD Work Phone: Pulmonary Medicine Comment on above: Received Outside [facility] ([facility]) Patient Update Start: 03-25-2024 End: 03-25-2024 Subsequent hospital visit by physician Ct [facility] ([facility]) Work Phone: Cat Scan Start: 03-24-2024 End: 03-24-2024 Subsequent hospital visit by physician [facility] Work Phone: Radiology Comment on above: Pulmonary emphysema, unspecified emphysema type (HCC) [J43.9] Start: 03-24-2024 End: 03-24-2024 ambulatory Pulm Work Phone: Pulmonary Medicine Comment on above: Spirometry Start: 03-24-2024 End: 03-24-2024 Patient encounter procedure Pulm Fct Lab [facility] Work Phone: Pulmonary Medicine Comment on above: Lung nodules (Primar y Dx); Centrilobular emphysema (HCC); Chest pain on breathing; Cavitary lesion of lung; Allergy to environmental factors; Ex-smoker Start: 03-04-2024 Telephone encounter [facility] Provider Pul monary Medicine Comment on above: Referral Request Start: 12-20-2023 Non-patient / Non-visit Dr. Christi Ryan Work Phone: [facility] Work Phone: Start: 12-19-2023 Non-patient / Non-visit Dr. Christi Ryan Work Phone: [facility] Work Phone: Start: 12-18-2023 Non-patient / Non-visit Dr. Christi Ryan Work Phone: [facility] Work Phone: Start: 12-17-2023 Non-patient / Non-visit Dr. Christi Ryan Work Phone: [facility] Work Phone: Start: 12-17-2023 End: 12-20-2023 Evaluation and management of inpatient Dr. Jr Ryan Work Phone: [facility]-Medical Surgical 3 Work Phone: Start: 12-15-2023 End: 12-15-2023 Emergency department patient visit JR RYAN Facility:[id number] Start: 12-11-2023 End: 12-11-2023 Emergency department patient visit [facility]gency Department Work Phone: Start: 10-29-2023 End: 10-29-2023 Emergency department patient visit [facility] Work Phone: Start: 07-09-2023 End: 07-09-2023 Emergency department patient visit [facility] Work Phone: Start: 01-22-2023 End: 01-22-2023 ambulatory [facility] Work Phone: Start: 01-22-2023 End: 01-22-2023 Patient encounter procedure [facility]-Cat Scan, [facility] Work Phone: Start: 08-30-2022 Non-patient / Non-visit Dr. Christi Ryan Work Phone: [facility] Start: 08-29-2022 Non-patient / Non-visit Dr. Christi Ryan Work Phone: [facility] Start: 08-28-2022 Non-patient / Non-visit Dr. Christi Ryan Work Phone: [facility] Start: 08-27-2022 Non-patient / Non-visit Dr. Christi Ryan Work Phone: [facility] Start: 08-26-2022 Non-patient / Non-visit Dr. Christi Ryan Work Phone: [facility] Start: 08-26-2022 End: 08-30-2022 Evaluation and management of inpatient Dr. Jr Ryan Work Phone: [facility]-Medical Surgical 3 Start: 08-23-2022 End: 08-23-2022 Emergency department patient visit [facility]Emergency Department Start: 08-23-2022 End: 08-23-2022 Emergency department patient visit RADHA STAHL MD Facility:[facility] Start: 08-23-2022 End: 08-23-2022 Emergency department patient visit ARCHANA CALLEJAS MD [facility] Start: 07-13-2022 End: 07-13-2022 ambulatory [facility] Work Phone: Start: 07-13-2022 End: 07-13-2022 Patient encounter procedure [facility], [facility] Start: 06-20-2021 End: 06-20-2021 Emergency department patient visit JAYMIE SUERO DO [facility] Start: 11-18-2020 End: 11-18-2020 Patient encounter procedure SAHARA JAY [facility] Procedures Date Procedure Procedure Detail Performing Clinician Start: 06-02-[address] Vivi Pike DO Work Phone: Start: 06-02-2025 Serum inorganic phos phate measurement Dr. Vivi Pike DO Work Phone: Start: 06-01-[address] Vivi Pike DO Work Phone: Start: 06-01-2025 SARS-CoV-2, Influenz a & RSV (PCR) Dr. Vivi Pike DO Work Phone: Start: 06-01-2025 CT angiography of ch est with contrast Dr. Vivi Pike DO Work Phone: Start: 06-01-2025 Radiologic exam ches t [address] Vivi Pike DO Work Phone: Start: 06-01-[address] Vivi Pike DO Work Phone: Start: 12-02-2024 Legionella pneumophi la antigen assay Dr. Todd Valdovinos DO Work Phone: Start: 12-02-2024 Streptococcus pneumo niae antigen assay Dr. Todd Valdovinos DO Work Phone: Start: 12-02-2024 Cardiovascular stres s test using pharmacologic stress agent Dr. Todd Valdovinos DO Work Phone: Start: 12-01-2024 Gram stain microscopy D khoi Valdovinos DO Work Phone: Start: 12-01-2024 SARS-CoV-2, Influenz a & RSV (PCR) Dr. Jr Ryan DO Work Phone: Start: 12-01-2024 X-ray of chest, PA a nd lateral views Dr. Jr Ryan DO Work Phone: Start: 06-05-2024 Echo tthrc r-t 2d w/wom-mode compl spec&colr d Claire Turner MD Work Phone: Start: 05-15-2024 Ct thorax w/o contra st material Mehreen Crow MD Work Phone: Start: 04-21-[address] atten uation skull base mid-thigh Tigre Restrepo MD Work Phone: Start: 04-21-2024 Gluc bld gluc mntr d ev cleared fda spec home use [facility] Provider Start: 03-27-2024 Ct thorax w/contrast material Tigre Restrepo MD Work Phone: Start: 03-24-2024 Radiologic exam ches t 2 views Tigre Restrepo MD Work Phone: Start: 03-24-2024 Brncdilat rspse spmt ry pre&post-brncdilat admn Annette Marrero MD Work Phone: Start: 12-17-2023 Plain chest X-ray Dr. Molina Ryan Work Phone: Start: 12-17-2023 Investigation of transfusion reaction Dr. Jr Ryan Work Phone: Start: 12-17-[address] Jr Ryan Work Phone: Start: 12-11-2023 SARS-CoV-2, Influenz a & RSV (PCR) Start: 12-11-2023 Plain chest X-ray Start: 10-29-2023 Plain chest X-ray Start: 07-09-2023 Plain chest X-ray Start: 01-22-2023 CT of chest Start: 08-26-2022 Plain chest X-ray Dr. Molina Ryan Work Phone: Start: 08-23-2022 Plain chest X-ray Start: 07-13-2022 Plain chest X-ray Start: 04-24-2019 Lipid 1996 panel - S russell or Plasma [facility] Provider Start: 08-26-2007 Laminectomy JAYMIE SEGURA DO Start: 08-26-2007 Total arthroplasty o f hip, low friction JAYMIE SUERO DO Start: 08-26-2005 Open reduction of fr acture with internal fixation JAYMIE SUERO DO Comment on above: R HIP Start: 08-26-2005 Transfusion of blood product Blood transfusion( Confirmed ) 4 JAYMIE SUERO DO Comment on above: FEEL OFF OF ROOF Start: 08-26-2001 Arthroscopy of shoulder JAYMIE SUERO DO Comment on above: RIGHT Start: 08-26-1991 Arthroscopy of shoulder JAYMIE SUERO DO Comment on above: RIGHT Arthroscopy of shoulder GUADALUPE SUERO DO Investigation of transfusion reaction Dr. Jr Ryan Work Phone: Respiratory microbia l culture Dr. Jr Ryan Work Phone: Respiratory Panel (PCR) Dr. Jr Ryan Work Phone: SARS-CoV-2 & FLU Ant igen (Rapid) Streptococcus pneumo niae Antigen (M Dr. Jr Ryan Work Phone: Plan of Treatment Date Care Activity Detail Author Start: 03-11-2027 Diabetes Screening Diabetes Screenin [facility] Start: 12-13-2026 Diabetes Screening Diabetes Screenin [facility] Start: 04-16-2026 End: 05-16-2026 CT Chest WO contrast CT CHEST WO IVCON Radiology Routine Lung nodules Expected: 04/16/2026, Expires: 05/16/2026 [facility] Work Phone: Comment on above: Expected: 04/16/2026 , Expires: 05/16/2026 Start: 08-13-2025 End: 08-13-2025 Patient encounter procedure 08/13/2025 9:00 AM EST Office Visit Cardiology [address] [address] Claire Turner MD [address] [place] [address] Was told he had a blockage on cath in [facility]. Also had cMRI in [place] which was concerning. Cardiology Comment on above: Was told he had a bl ockage on cath in [facility]. Also had cMRI in [place] which was concerning. Start: 06-02-2025 Patient discharge [facility] Start: 06-01-2025 End: 06-01-2025 Following clinical pathway protocol [facility] Start: 06-01-2025 Assessment of risk o f venous thromboembolism [facility] Start: 06-01-2025 Catheterization of vein [facility] Start: 06-01-2025 Incentive spirometry [facility] Start: 06-01-2025 Insertion of cathete r into peripheral vein [facility] Start: 06-01-2025 Physiotherapy of chest [facility] Start: 06-01-2025 Providing care accor ding to standard [facility] Start: 06-01-2025 Provision of activit y privileges [facility] Start: 06-01-2025 Referral for physica l therapy [facility] Start: 06-01-2025 Referral to occupati onal therapist [facility] Start: 06-01-2025 Referral to service [facility] Start: 06-01-2025 [facility] Start: 06-01-2025 Respiratory pathogen s DNA and RNA panel - Respiratory specimen by JELENA with probe detection [facility] Start: 06-01-2025 Verification routine [facility] Start: 06-01-2025 Admission procedure [facility] Start: 06-01-2025 Hospital admission, emergency, from emergency room, medical nature [facility] Start: 06-01-2025 [facility] Start: 04-26-2025 Influenza vaccination Influenza Vacc ine (#1) [facility] Start: 04-16-2025 End: 04-16-2025 Patient encounter procedure Radiology Comment on above: CT COPD Start: 04-15-2025 End: 11-15-2025 CT Chest WO contrast CT CHEST WO IVCON Radiology Routine Lung mass Expected: 04/15/2025, Expires: 11/15/2025 [facility] Work Phone: Comment on above: Expected: 04/15/2025 , Expires: 11/15/2025 Start: 12-02-2024 Patient discharge [facility] Start: 12-01-2024 Oxygen therapy [facility] Start: 12-01-2024 Respiratory Culture Respiratory Cult ure [facility] Start: 12-01-2024 Following clinical p athway protocol [facility] Start: 12-01-2024 Ambulation without limitation [facility] Start: 12-01-2024 Assessment of risk o f venous thromboembolism [facility] Start: 12-01-2024 Elevation of head of bed [facility] Start: 12-01-2024 Insertion of cathete r into peripheral vein [facility] Start: 12-01-2024 Measuring intake and output [facility] Start: 12-01-2024 Notification of physician [facility] Start: 12-01-2024 Patient education [facility] Start: 12-01-2024 Physiotherapy of chest [facility] Start: 12-01-2024 Providing care accor ding to standard [facility] Start: 12-01-2024 [facility] Start: 12-01-2024 Bacteria identified in Sputum by Culture [facility] Start: 12-01-2024 Legionella pneumophi la Ag [Presence] in Urine [facility] Start: 12-01-2024 Streptococcus pneumo niae antigen assay [facility] Start: 12-01-2024 Verification routine [facility] Start: 12-01-2024 Admission procedure [facility] Start: 12-01-2024 End: 12-01-2024 Hospital admission, emergency, from emergency room, medical nature [facility] Start: 12-01-2024 Inhalation therapy procedure [facility] Start: 12-01-2024 [facility] Start: 10-16-2024 End: 01-15-2025 Basic metabolic 2000 panel - Serum or Plasma BASIC METABOLIC PANEL Lab Routine Lung mass Expected: 10/16/2024, Expires: 01/15/2025 [facility] Comment on above: Expected: 10/16/2024 , Expires: 01/15/2025 Start: 10-16-2024 End: 01-15-2025 CBC panel - Blood by Automated count COMPLETE BLOOD COUNT Lab Routine Lung mass Expected: 10/16/2024, Expires: 01/15/2025 [facility] Comment on above: Expected: 10/16/2024 , Expires: 01/15/2025 Start: 10-16-2024 End: 10-16-2024 Patient encounter procedure Radiology Comment on above: Pneumonia of both braydon ngs due to Pseudomonas species, unspecified part of lung (HC... COPD Start: 08-26-2024 Advance Directive Discussion Advance Directive Discussion [facility] Start: 06-05-2024 End: 06-05-2024 Patient encounter procedure 06/05/2024 9:00 AM EDT Appointment Cardiology Lab [address] [place] [address] Murmur [R01.1] Cardiology Lab Comment on above: Murmur [R01.1] Start: 05-25-2024 End: 05-25-2024 Admission to same day surgery center 05/25/2024 9:30 AM EDT - 05/25/2024 11:30 AM EDT Surgery Admitting [address] [address] Mehreen Crow MD [address] [place] [address] BRONCHOSCOPY FLEXIBLE ADULT Admitting Comment on above: BRONCHOSCOPY FLEXIBL E ADULT Start: 05-25-2024 End: 05-25-2024 [facility] incl fluor gdnce dx w/cell washg spx BRONCHOSCOPY FLEXIBLE ADULT Bronchiolar disease 05/25/2024 9:30 AM EDT PULM LAB H23 Start: 05-25-2024 Subsequent hospital visit by physician 05/25/2024 9:30 AM EDT Hospital Encounter Admitting [address] [address] Mehreen Crow MD [address] [place] [address] Bronchiolar disease [J98.09] Admitting Comment on above: Bronchiolar disease [J98.09] Start: 05-22-2024 End: 05-22-2025 Echocardiography ECHO Cardiology Routine Murmur Expected: 05/22/2024, Expires: 05/22/2025 [facility] Work Phone: Comment on above: Expected: 05/22/2024 , Expires: 05/22/2025 Start: 05-22-2024 End: 05-22-2024 Patient encounter procedure 05/22/2024 8:00 AM EDT Office Visit Cardiology [address] [id number] Claire Turner MD [address] [place], [place] [id number] Was told he had a blockage on cath in [facility]. Also had cMRI in [place] which was concerning. Cardiology Comment on above: Was told he had a bl ockage on cath in [facility]. Also had cMRI in [place] which was concerning. Start: 05-15-2024 End: 05-15-2024 Patient encounter procedure Pulmonary Medicine Comment on above: Established Visit Pre Op Testing Start: 04-26-2024 Covid-19 Vaccine ( season) Covid-19 Vaccine ( season) [facility] Start: 04-26-2024 Covid-19 Vaccine ( season) Covid-19 Vaccine ( season) [facility] Start: 04-26-2024 Influenza vaccination Influenza Vacc ine (#1) [facility] Start: 04-24-2024 Lipid panel Lipid Screening [facility] Start: 03-27-2024 End: 03-27-2024 Patient encounter procedure 03/27/2024 9:40 AM EDT Appointment Cat Scan [address] [place] [id number] CCN was accepted, Cat Scan Comment on above: CCN was accepted, Start: 03-25-2024 End: 03-25-2024 Patient encounter procedure 03/25/2024 8:40 AM EDT Appointment Cat Scan [address] [place] [id number] Chest pain on breathing [R07.1] Cat Scan Comment on above: Chest pain on breath ing [R07.1] Start: 03-24-2024 End: 06-23-2024 Alpha 1 antitrypsin [Mass/volume] in Serum or Plasma [id number] Lab Routine Centrilobular emphysema (HCC) Expected: 03/24/2024, Expires: 06/23/2024 [facility] Comment on above: Expected: 03/24/2024 , Expires: 06/23/2024 Start: 03-24-2024 End: 06-23-2024 CREATININE BLD CREATININE BLD Lab Routine Lung nodules Expected: 03/24/2024, Expires: 06/23/2024 [facility] Comment on above: Expected: 03/24/2024 , Expires: 06/23/2024 Start: 03-24-2024 End: 03-24-2024 Patient encounter procedure Radiology Comment on above: Pulmonary emphysema, unspecified emphysema type (HCC) [J43.9] Provider: Any Staff Animal Damage Control Agent Start: 03-24-2024 End: 03-24-2024 ambulatory Pulmonary Medicine Comment on above: Provider: Any Staff Animal Damage Control Agent Start: 12-20-2023 Patient discharge [facility] Start: 12-19-2023 Physiotherapy of chest [facility] Start: 12-17-2023 Oxygen therapy [facility] Start: 12-17-2023 Ambulation without limitation [facility] Start: 12-17-2023 Assessment of risk o f venous thromboembolism [facility] Start: 12-17-2023 Inhalation therapy procedure [facility] Start: 12-17-2023 Insertion of cathete r into peripheral vein [facility] Start: 12-17-2023 Providing care accor ding to standard [facility] Start: 12-17-2023 Respiratory secretio n precautions [facility] Start: 12-17-2023 Following clinical p athway protocol [facility] Start: 12-17-2023 Legionella pneumophi la Ag [Presence] in Urine [facility] Start: 12-17-2023 Streptococcus pneumo niae antigen assay [facility] Start: 12-17-2023 End: 12-17-2023 [facility] Start: 12-17-2023 Hospital admission, emergency, from emergency room, medical nature [facility] Start: 12-17-2023 Admission procedure [facility] Start: 12-17-2023 End: 12-17-2023 Blood culture [facility] Start: 12-17-2023 Bacteria identified in Blood by Culture Blood Culture [facility] Start: 12-17-2023 Bacteria identified in Urine by Culture [facility] Start: 12-17-2023 Microscopic observat ion [Identifier] in Unspecified specimen by Gram stain [facility] Start: 12-17-2023 Respiratory Culture Respiratory Cult ure [facility] Start: 12-17-2023 Respiratory microbia l culture Respiratory Culture [facility] Start: 12-17-2023 [facility] Start: 12-17-2023 Patient referral to dietitian [facility] Start: 12-17-2023 [facility] Start: 12-11-2023 [facility] Start: 12-11-2023 [facility] Start: 10-29-2023 [facility] Start: 10-29-2023 [facility] Start: 08-26-2023 Advance Directive Discussion Advance Directive Discussion [facility] Start: 08-26-2023 Behavioral Health Screening Behavioral Health Screening [facility] Start: 07-09-2023 [facility] Start: 04-26-2023 Covid-19 Vaccine ( season) Covid-19 Vaccine () [facility] Start: 08-30-2022 Patient discharge [facility] Work Phone: Start: 08-27-2022 Inhalation therapy procedure [facility] Work Phone: Start: 08-26-2022 Dual pressure sponta neous ventilation support [facility] Work Phone: Start: 08-26-2022 Respiratory secretio n precautions [facility] Work Phone: Start: 08-26-2022 Assessment of risk o f venous thromboembolism [facility] Work Phone: Start: 08-26-2022 Elevation of head of bed [facility] Work Phone: Start: 08-26-2022 Incentive spirometry [facility] Work Phone: Start: 08-26-2022 Insertion of cathete r into peripheral vein [facility] Work Phone: Start: 08-26-2022 Oxygen therapy [facility] Work Phone: Start: 08-26-2022 Patient education [facility] Work Phone: Start: 08-26-2022 Physiotherapy of chest [facility] Work Phone: Start: 08-26-2022 Providing care accor ding to standard [facility] Work Phone: Start: 08-26-2022 Provision of activit y privileges [facility] Work Phone: Start: 08-26-2022 Referral to occupati onal therapist [facility] Work Phone: Start: 08-26-2022 Referral to service [facility] Work Phone: Start: 08-26-2022 [facility] Work Phone: Start: 08-26-2022 Following clinical p athway protocol [facility] Work Phone: Start: 08-26-2022 Legionella pneumophi la Ag [Presence] in Urine [facility] Work Phone: Start: 08-26-2022 Streptococcus pneumo niae antigen assay [facility] Work Phone: Start: 08-26-2022 Verification routine [facility] Work Phone: Start: 08-26-2022 Admission procedure [facility] Work Phone: Start: 08-26-2022 [facility] Work Phone: Start: 08-26-[address] [facility] Work Phone: Start: 08-26-2022 End: 08-27-2022 [facility] Work Phone: Start: 08-23-2022 [facility] Work Phone: Start: 06-17-2021 Annual PCP Team [employer] ruba Disease Visit Annual PCP Team Chronic Disease Visit [facility] Start: 01-10-2019 Screening for malign ant neoplasm of colon [facility] Start: 01-01-2016 Pneumococcal Vaccine : 65+ (1 of 1 - PCV) Pneumococcal Vaccine: 65+ (1 of 1 - PCV) [facility] Start: 2010 RSV Vaccine (1 - 1-d ose 60+ series) RSV Vaccine (1 - 1-dose 60+ series) [facility] Start: 2010 RSV Vaccine (1 - Ris k 60-74 years 1-dose series) RSV Vaccine (1 - Risk 60-74 years 1-dose series) [facility] Start: 09-25-2005 Urine microalbumin profile DTa P,Tdap,Td Vaccine (1 - Tdap) [facility] Start: 2000 Shingrix Vaccine (1 of 2) Odom grix Vaccine (1 of 2) [facility] Start: 01-01-1996 Screening for malign ant neoplasm of colon [facility] Start: 1980 Zoledronic acid therapy Alpha- 1 Antitrypsin Deficiency Screening [facility] Start: 1969 Pneumococcal Vaccine : 50+ (1 of 2 - PCV) Pneumococcal Vaccine: 50+ (1 of 2 - PCV) [facility] Start: 1968 Anxiety Screening Anxiety Screening [facility] Start: 1968 BP Controlled (<130/80) BP Controlle d (<130/80) [facility] Start: 1968 Depression Screening Depression Scre ening [facility] Start: 1968 Spirometry Spirometry [facility] Start: 1956 Pneumococcal Vaccine : 65+ (1 of 2 - PCV) Pneumococcal Vaccine: 65+ (1 of 2 - PCV) [facility] Start: 1950 Abdominal aortic ane urysm screening Abdominal Aortic Aneurysm Screening [facility] Bacteria identified in Blood by Culture Blood Culture [facility] Work Phone: Bacteria identified in Sputum by Respiratory culture [facility] Blood culture [facility] Work Phone: End: 04-23-2025 CT Chest WO contrast CT CHEST WO IVCON Radiology Routine Lung nodules 1 Occurrences starting 03/24/2024 until 04/23/2025 [facility] Work Phone: Comment on above: 1 Occurrences starti ng 03/24/2024 until 04/23/2025 End: 06-13-2025 CT Chest WO contrast CT CHEST WO IVCON Radiology Routine Multiple nodules of lung 1 Occurrences starting 05/14/2024 until 06/13/2025 [facility] Work Phone: Comment on above: 1 Occurrences starti ng 05/14/2024 until 06/13/2025 CT Chest WO contrast CT CHEST WO IVCON Radiology Routine Pneumonia of both lungs due to Pseudomonas species, unspecified part of lung (HCC) 10/16/2024 7:11 AM EST [facility] Work Phone: CT Chest WO contrast CT CHEST WO IVCON Radiology Routine Lung mass 04/16/2025 8:58 AM EDT [facility] Work Phone: End: 04-23-2025 CTA Pulmonary arteries for pulmonary embolus W contrast IV CT CHEST W IVCON PE Radiology STAT Chest pain on breathing 1 Occurrences starting 03/24/2024 until 04/23/2025 [facility] Comment on above: 1 Occurrences starti ng 03/24/2024 until 04/23/2025 End: 04-25-2025 CTA Pulmonary arteries for pulmonary embolus W contrast IV CT CHEST W IVCON PE Radiology KERRY Chest pain, unspecified type 1 Occurrences starting 03/26/2024 until 04/25/2025 [facility] Work Phone: Comment on above: 1 Occurrences starti ng 03/26/2024 until 04/25/2025 Microorganism identi fied in Unspecified specimen by Culture [facility] Patient Education [facility] Work Phone: Patient referral [facility] Work Phone: End: 04-26-2025 PET+CT Guidance for localization of tumor of Skull base to mid-thigh-- W [id number] IV NM PET/CT SKULL-THIGH INITIAL Radiology KERRY Lung nodules 1 Occurrences starting 03/27/2024 until 04/26/2025 [facility] Work Phone: Comment on above: 1 Occurrences starti ng 03/27/2024 until 04/26/2025 Immunizations Immunization Date Immunization Notes Care Provider Lily henry 06-02-2025 influenza, high dose seasonal, preservative-free Dr. Vivi Pike DO Work Phone: [facility] 09-11-2016 influenza virus vaccine, unspecified formulation [facility] Provider [facility] 09-24-2005 tetanus and diphther ia toxoids, adsorbed, preservative free, for adult use (2 Lf of tetanus toxoid and 2 Lf of diphtheria toxoid) [facility] Provider [facility] Payers Date Payer Category Payer Unknown [id number] 2023 Private Health Insurance [facility] [employer] [id number] 2023 Unknown [id number] 2023 Unknown [id number] 2022 Self-pay [id number] 1950 Unknown [id number] Unknown [id number] Unknown [id number] Unknown [id number] Unknown [id number] Unknown [id number] Unknown [id number] Unknown [id number] Unknown [id number] Unknown [id number] Unknown [id number] Social History Date Type Detail Facility Start: 01-08-2018 End: 06-01-2025 Ex-smoker (finding) [facility] Assigned At [facility] Start: 05-01-2021 End: 12-17-2023 Tobacco smoking status MAIS Unknown if ever smoked [facility] Start: 1950 Sex Assigned At Male [facility] Start: 10-24-1969 End: 10-24-2005 History of tobacco use Current smoker [facility] Start: 10-24-1969 End: 10-24-2005 History of tobacco use Cigarette Smoker [facility] Start: 01-08-2018 End: 12-15-2023 Cigarettes smoked current (pack per day) - Reported 0.5 [facility] Start: 01-08-2018 End: 05-15-2024 Tobacco use and exposure Smokeless tobacco non-user [facility] Start: 06-17-2020 End: 04-16-2025 Alcohol intake Current drinker of alcohol (finding) [facility] Start: 06-17-2020 End: 12-15-2023 Tobacco use panel [facility] Start: 07-27-2012 Adult Depression Screening Assessment 0 [facility] Start: 1950 Sex Assigned At Not on file [facility] Start: 12-01-2024 End: 12-02-2024 Sex Male (finding) [facility] Goals Date Patient Goal Desired Activity /State Functional Status Date Assessment Result Facility 06-02-2025 Functional status Ambulates [facility] Work Phone: 12-02-2024 Functional status Ambulates;Up ad juan josé [facility] Work Phone: 12-20-2023 Functional status Ambulates [facility] Work Phone: 08-30-2022 Functional status Patient Activity Chair [facility] Work Phone: 08-30-2022 Functional status Independent [facility] Work Phone: 11-23-2014 Are you deaf, or do you have serious difficulty hearing Yes 11/23/2014 6:33 PM Rodrigo Perry LPN Yes [facility] 11-23-2014 Are you blind, or do you have serious difficulty seeing, even when wearing glasses No 11/23/2014 6:33 PM Rodrigo Perry LPN No [facility] 11-23-2014 Do you have serious difficulty walking or climbing stairs No 11/23/2014 6:33 PM Rodrigo Perry LPN No [facility] 11-23-2014 Do you have difficul ty dressing or bathing No 11/23/2014 6:33 PM Rodrigo Perry LPN No [facility] 11-23-2014 Because of a physica l, mental, or emotional condition, do you have difficulty doing errands alone such as visiting a physician's office or shopping No 11/23/2014 6:33 PM Rodrigo Perry LPN No [facility] Mental Status Date Assessment Result Facility 06-02-2025 Cognitive function Voice/Name [facility] Work Phone: 12-01-2024 Cognitive function Voice/Name [facility] Work Phone: 12-20-2023 Cognitive function Voice/Name [facility] Work Phone: 08-30-2022 Cognitive function Voice/Name [facility] Work Phone: 11-23-2014 Because of a physica l, mental, or emotional condition, do you have serious difficulty concentrating, remembering, or making decisions No 11/23/2014 6:33 PM EDT Rodrigo Rojas LPN No [facility] Clinical Notes 06-20-2021 to 06-02-2025 Note Date & Type Note Facility 06-02-2025 Consult note [facility] 06-02-2025 Discharge summary [facility] 06-02-2025 Note [facility] Medical Records Department [address] [place] [address] Discharge Summary 06/02/25 1153 MR#: [id number] Acct: [id number] Name: BEATRIS QUINN Eligio Rep #: [id number] : 1950 74 From: Karen Le DO PCP: VIVEK Yañez Status:ADM IN [id number] Prov[facility] Date of Admission: 06/01/25 Date of Discharge: 06/02/25 Primary Care Physician: VIVEK Yañez Reason For Visit: AECOPD Diagnosis Discharge Diagnosis (1) Hypoxia: Status: Acute Code(s): R09.02 - Hypoxemia (2) Elevated troponin: Status: Acute Code(s): R79.89 - Other specified abnormal findings of blood chemistry (3) Increased sputum production: Status: Acute Code(s): R09.3 - Abnormal sputum (4) Pulmonary nodules: Status: Acute Code(s): R91.8 - Other nonspecific abnormal finding of lung field Plan Exertional hypoxia secondary to acute exacerbation of COPD - Patient with change in sputum production color and volume and per Gold guidelines will start antibiotics with Levaquin 750 daily - CTA of the chest does not show infiltrate or PE - Aggressive pulmonary toilet - Steroids 40 every 8 - Incentive spirometer - Mucinex 1200 p.o. twice daily - Acapella 10 times every 2 hours while awake - Check sputum culture if able - COVID/flu/RSV is negative - Check respiratory viral panel - Hold home inhalers for now Troponin elevation - Suspect related to mild hypoxia with exertion - Initial was 32 with a delta of 32 and a 4-hour troponin of 26 within normal BNP - no further workup at this time as patient has had recent stress test and cardiac catheterization within last 12 months and had nonobstructive disease at that time COPD with emphysematous changes - See therapy above - Restart home inhalers at discharge Pulmonary nodules - Several noted - Will have follow-up with pulmonary medicine after discharge Essential hypertension Continue home amlodipine Nonobstructive CAD - Patient is on no medical therapy at this time per his wishes Mild aortic stenosis - Last echo 06/05/2025 - Ongoing outpatient follow-up Anxiety - Continue home Xanax DVT prophylaxis - Subcu Lovenox 40 daily CODE STATUS - Full code is verified at the time of admission Medications at Discharge Home Medications amlodipine 5 mg tablet 5 mg PO DAILY blood pressure 03/06/21 albuterol sulfate 2.5 mg/3 mL (0.083 %) solution for nebulization 2.5 mg (3 mL) inhalation Q4H PRN #25 vials 12/11/23 garlic 1,000 mg capsule 1,000 mg PO DAILY general health 12/17/23 vitamin E 268 mg (400 unit) capsule 268 mg PO DAILY blood clot prevention 12/17/23 alprazolam 0.25 mg tablet (Xanax) 0.375 mg PO QHS anxiety 02/28/24 fluticasone fur. 100 mcg-umeclid 62.5 mcg-vilant 25 mcg inhalat.powder (Trelegy Ellipta) 1 inh inhalation DAILY 02/28/24 albuterol sulfate 90 mcg/actuation aerosol inhaler 1 inh inhalation Q6H PRN shortness of breath or wheezing 12/01/24 prednisone 5 mg tablet 5 mg PO DAILY PRN sob 06/01/25 Held on 06/02/25. Instructions: hold until off prednisone guaifenesin 1,200 mg tablet, extended release 12 hr (Mucus Relief ER) 1,200 mg PO BID #0 tabs 06/02/25 levofloxacin 750 mg tablet 750 mg PO DAILY #5 tabs 06/02/25 prednisone 10 mg tablet 10 mg PO DAILY #30 tabs 06/02/25 Hospital Course Summary of Care Provided Minutes Spent on Discharge: 36 Hospital Course: BEATRIS QUINN, is a 74 M who presented to the emergency department at [facility] on 06/01/2025 with chief complaint of shortness of breath. Patient states she has had symptoms of shortness of breath that have been slowly worsening but really got bad in the last 24 to 48 hours. He states has had a dry cough with some intermittent production of sputum that is greenish in nature which is different from his baseline. He has been extremely short of breath especially when he moves around. He states he feels better when he rests. He has been taking his inhalers at home. He has had no fever or chills. He denies myalgias or arthralgias. He denies nausea or vomiting. He has had no diarrhea or constipation. He states he was able to work but was just very fatigued last night so we decided to be evaluated in the emergency department with his ongoing shortness of breath. He has followed previously with Dr. Perez from pulmonary medicine. Vital signs on presentation showed a temperature of 98, heart rate 72, respiratory 20, blood pressure of 153/77 pulse ox was 95% on room air however ambulatory pulse ox was done after he was treated by the emergency department physician and he did desat. Oxygen saturation with ambulation was 85 in the emergency department and has improved to 89 once he is on the floor. CBC showed a normal white count but he did have a mild left shift with a 71.4% neutrophilia. Chemistry panel was unremarkable. His initial t (more content not included)... [facility] 06-01-2025 History and physi florinda note Note Date/Time June 01, 2025 5:17pm [facility] Medical Records Department [address] [place] [address] H&P Exam - Hospitalist 06/01/25 1056 MR#: [id number] Acct: [id number] Name: BEATRIS QUINN Rep #:[id number] : 1950 74 From: Karen Le DO PCP: VIVEK Yañez Status:AD M IN Location: [facility] [id number] HPI - General General Date of Admission: 06/01/25 Date of Service: 06/01/25 Chief Complaint: Shortness of breath HPI Narrative BEATRIS QUINN, is a 74 M who presented to the emergency department at [facility] on 06/01/2025 with chief complaint of shortness of breath. Patient states she has had symptoms of shortness of breath that have been slowlyworsening but really got bad in the last 24 to 48 hours. He states has had a dry cough with some intermittent production of sputum that is greenish in naturewhich is different from his baseline. He has been extremely short of breath especially when he moves around. He states he feels better when he rests. He has been taking his inhalers at home. He has had no fever or chills. He deniesmyalgias or arthralgias. He denies nausea or vomiting. He has had no diarrhea or constipation. He states he was able to work but was just very fatigued last night so we decided to be evaluated in the emergency department with his ongoingshortness of breath. He has followed previously with Dr. Perez follow-up Dr. Jara not call he still in PACU as far as I know are you going to talk to the son you from pulmonary medicine. Vital signs on presentation showed a temperature of 98, heart rate 72, respiratory 20, blood pressure of 153/77 pulse ox was 95% on room air however ambulatory pulse ox was done after he was treated by the emergency department physician and he did desat. Oxygen saturation with ambulation was 85 in the emergency department and has improved to 89 once he is on the floor. CBC showeda normal white count but he did have a mild left shift with a 71.4% neutrophilia. Chemistry panel was unremarkable. His initial troponin was 32 with a delta of 32 and a 4-hour troponin of 26. TSH was within normal limits. BNP was normal. We had a CTA of his chest and was found to have no evidence of PE, no infiltrate but does have bilateral pulmonary nodule superimposed on emphysematous changes. Patient does indicate he has had previous pulmonary nodules that have been followed with Dr. Perez as an outpatient. He was treated for COPD exacerbation emergency department and request for admission was made. [facility] be [facility] to [facility] and at the time of admissionI do anticipate at least 2 midnight stay. [facility] Medical History COPD (chronic obstructive pulmonary disease) Hypertension Aortic stenosis Elevated coronary artery calcium score Urinary retention Heart murmur Anxiety On home oxygen therapy Acute hypoxemic respiratory failure Pneumonia COPD (chronic obstructive pulmonary disease) [place] (hard of hearing) Hypertension Home Medications ?Medication ?Instructions ?Recorded ?Last Taken ?Type amlodipine 5 mg tablet 5 mg PO DAILY blood pressure 03/06/21 06/01/25 History albuterol sulfate 2.5 mg/3 mL 2.5 mg (3 mL) inhalation Q4H PRN 12/11/23 06/01/25 Rx (0.083 %) solution for nebulization #25 vials garlic 1,000 mg capsule 1,000 mg PO DAILY general he alth 12/17/23 Unknown History vitamin E 268 mg (400 unit) capsule 268 mg PO DAILY bl ood clot 12/17/23 06/01/25 History prevention alprazolam 0.25 mg tablet (Xanax) 0.375 mg PO QHS anxi ety 02/28/24 05/31/25 History fluticasone fur. 100 mcg-umeclid 1 inh inhalation SUDHAKAR Y 02/28/24 06/01/25 History 62.5 mcg-vilant 25 mcg inhalat.powder (Trelegy Ellipta) albuterol sulfate 90 mcg/actuation 1 inh inhalation Q6 H PRN shortness 12/01/24 05/31/25 History aerosol inhaler of breath or wheezing prednisone 5 mg tablet 5 mg PO DAILY PRN sob 05/31/25 History Allergy/AdvReac Type Severity Reaction Status Date / Time No Known Allergies Allergy Verified 06/01/25 07:22 Surgical History Hx of hernia repair History of replacement of both shoulder joints Social History (Updated 06/01/25 @ 16:[address] Karen Le DO) household members: spouse housing: house Smoking Status: Former smoker alcohol intake: never substance use type: does not use ROS Constitutional Constitutional: Reports change in weight, fatigue and weakness; Denies anorexia,chills, fever(s), malaise, night sweats or other Eyes Eyes: Denies blurry vision, change in eye color, change in vision, discharge from eye(s), double vision, erythema, eye pain, loss of vision or other ENT HEENT: Denies abnormal hearing, dysphagia, ear pain, epistaxis, headache(s), hearing loss, nasal congestion, nasal discharge, post nasal drip, sinus pressure, sore throat or other Cardiovascular Cardiovascular: Reports dyspnea on exertion; Denies chest pain, claudication, edema, lightheadedness, orthopnea, palpitations, paroxysmal nocturnal dyspnea, rapid heart rate, syncope or other Respiratory/Chest Respiratory/Chest: Reports cough, dyspnea, excessive phlegm production, productive cough, shortness of breath at rest, shortness of breath with exertionand wheezing; Denies hemoptysis or other Gastrointestinal Gastrointestinal: Denies abdominal pain, coffee ground emesis, constipation, diarrhea, dyspepsia, hematemesis, hematochezia, loose stools, melena, nausea, vomiting or other Genitourinary Genitourinary: Denies burning urination, difficulty urinating, dysuria, hematuria, nocturia, urinary frequency, urinary hesitancy, urinary incontinence,urinary urgency or other Musculoskeletal Musculoskeletal: Denies arthralgias, back pain, joint pain, joint stiffness, joint swelling, myalgias, neck pain or other Neurologic Neurologic: Denies abnormal gait, abnormal speech, confusion, disequilibrium, dizziness, focal weakness, headache(s), numbness, paresthesias, seizure-like activity, seizures, syncope, tingling, tremor(s) or other Psychiatric Psychiatric: Denies anxiety, depression, homicidal ideation, suicidal ideation or other Endocrine Endocrinology: Denies change in body appearance, cold intolerance, excessive sweating, heat intolerance, polydipsia, polyuria or other Hematologic/Lymphatic Hematologic/Lymphatic: Denies anemia, easy bleeding, easy bruising, lymphadenopathy or other Allergic/Immunologic Allergic/Immunologic: Denies rhinitis, hives, eczemia, asthma or other Vital Signs Vital Signs Vital Signs: 06/01/25 07:20 06/01/25 07:50 06/01/25 07:51 Temperature 98 F Temperature Source Oral Pulse Rate 72 64 Respiratory Rate 20 H 16 Respiratory Effort Normal Non-Labored Respiratory Depth Normal Respiratory Pattern Normal Normal Blood Pressure 153/77 H Blood Pressure Mean 102 Pulse Ox 95 Oxygen Delivery Method Room Air Room Air 06/01/25 08:18 06/01/25 08:47 06/01/25 09:42 Temperature Temperature Source Pulse Rate 67 75 82 Respiratory Rate 16 16 18 Respiratory Effort Respiratory Depth Respiratory Pattern Normal Normal Blood Pressure 139/76 H Blood Pressure Mean 97 Pulse Ox 94 Oxygen Delivery Method Room Air Weight Weight: 55 kg Body Mass Index (BMI) 19.5 Physical Exam Const alert, oriented x3 and no apparent distress; Negative for average body habitus, healthy appearing or well nourished Constitutional Narrative: Thin, older, white male, sitting up in chair, eating dinner, appears comfortable, nontoxic, currently with comfortable breathing on room air General Appearance: cooperative HEENT normocephalic, head/scalp atraumatic and moist oral mucous membranes; Negative for hearing grossly normal bilaterally HEENT Narrative: Dentition is poor, Mallampati is 1, no thrush, mild hearing loss Neck supple Neck Narrative: Trachea midline Resp normal respiratory effort, no retractions, no use of accessory muscles and No clear to auscultation bilaterally Resp Narrative: Diffusely diminished with scattered and expiratory wheezes Auscultation: wheezes; Negative for crackles or rhonchi Cardio regular rate, regular rhythm, S1 normal heart sound, S2 normal heart sound, no rub and no clicks; Negative for no murmurs Cardio Narrative: 3 out of 6 systolic murmur loudest at right upper sternal border GI normal to inspection, nondistended, normoactive bowel sounds, soft to palpation and non-tender Extremity no clubbing, cyanosis or edema Extremity Narrative: Decreased lean muscle mass Neuro moves all extremities and no focal motor deficits Speech: speech normal Psych affect normal Psych Narrative: very pleasant, makes good eye contact, interacts appropriately Results Lab / Micro Data 06/01/25 07:40 06/01/25 07:40 Labs: Laboratory Results - last 24 hr 06/01/25 07:40: WBC 8.1, RBC 4.92, Hgb 14.1, Hct 42.7, MCV 86.8, MCH 28.7, MCHC 33.0, RDW Std Deviation 46.2 H, RDW Coeff of Sherri 14.4, Plt Count 235, MPV 9.3, Immature Gran % (Auto) 0.600, Neut % (Auto) 71.4 H, Lymph % (Auto) 15.9 L, Coos % (Auto) 9.4, Eos % (Auto) 2.2, Baso % (Auto) 0.5, Absolute Neuts (auto) 5.8, Absolute Lymphs (auto) 1.29, Nucleated RBC % 0, Sodium 137, Potassium 4.4, Chloride 100, Carbon Dioxide 29.4, Anion Gap 8, BUN 26 H, Creatinine 0.99, EstimCreat Clear Calc 50.93, Est GFR (MDRD) Non-Af 80, BUN/Creatinine Ratio 26.3 H, Glucose 104 H, Calcium 9.3, Total Bilirubin 0.70, AST 23, ALT 17, Alkaline Phosphatase 67, Troponin T High Sens 32 H D, Total Protein 6.1, Albumin 4.0, Globulin 2.2, Albumin/Globulin Ratio 1.8, TSH 3.320 06/01/25 09:40: Troponin T Hi Sens 2 Hr 32 H Rhythm Strip Rhythm Strip: Sinus Rhythm Rate: 69 Ectopy: None Imaging Radiology Impression Chest X-Ray 06/01/25 08:04 IMPRESSION: 1. Interval decrease in size of the lingular and right middle lobe lesions. These were likely infectious/inflammatory. No new consolidation. 2. Granulomas. Reading Location: [facility] Assessment & Plan Assessment/Plan (1) Hypoxia: (2) Elevated troponin: (3) Increased sputum production: (4) Pulmonary nodules: PLAN: Plan Exertional hypoxia secondary to acute exacerbation of COPD - Patient with change in sputum production color and volume and per Gold guidelines will start antibiotics with Levaquin 750 daily - CTA of the chest does not show infiltrate or PE - Aggressive pulmonary toilet - Steroids 40 every 8 - Incentive spirometer - Mucinex 1200 p.o. twice daily - Acapella 10 times every 2 hours while awake - Check sputum culture if able - COVID/flu/RSV is negative - Check respiratory viral panel - Hold home inhalers for now Troponin elevation - Suspect related to mild hypoxia with exertion - Initial was 32 with a delta of 32 and a 4-hour troponin of 26 within normal BNP - no further workup at this time as patient has had recent stress test and cardiac catheterization within last 12 months and had nonobstructive disease at that time COPD with emphysematous changes - See therapy above - Restart home inhalers at discharge Pulmonary nodules - Several noted - Will have follow-up with pulmonary medicine after discharge Essential hypertension Continue home amlodipine Nonobstructive CAD - Patient is on no medical therapy at this time per his wishes Mild aortic stenosis - Last echo 06/05/2025 - Ongoing outpatient follow-up Anxiety - Continue home Xanax DVT prophylaxis - Subcu Lovenox 40 daily CODE STATUS - Full code is verified at the time of admission Charges/Coding Visit Charges Inpatient E&M: 79328 Init Hosp L2 06/01/25 1717 <Electronically signed by Karen Le DO> Cosigner Signature (if applicable): CC: SENIOR MOBILE DEVELOPER-C Michelle Ferraro; Dr. Karen Le DO~ Signed [facility] Work Phone: 1(212) 995-533810-07-2025 History and physical note [facility] Medical Records Department [address] [place] [address] H&P Exam - Hospitalist 06/01/25 1056 MR#: [id number] Acct: [id number] Name: BEATRIS QUINN Rep #:[id number] : 1950 74 From: Karen Le DO PCP: Michelle Ferraro, VIVEK Status:AD M IN Location: [facility] XI075-5 HPI - General General Date of Admission: 06/01/25 Date of Service: 06/01/25 Chief Complaint: Shortness of breath HPI Narrative BEATRIS QUINN, is a 74 M who presented to the emergency department at [facility] on 06/01/2025 with chief complaint of shortness of breath. Patient states she has had symptoms of shortnessof breath that have been slowlyworsening but really got bad in the last 24 to 48 hours. He states has had a dry cough with some intermittent production of sputum that is greenish in naturewhich is different from his baseline. He has been extremely short of breath especially when he moves around. Hestates he feels better when he rests. He has been taking his inhalers at home. He has had no fever or chills. He deniesmyalgias or arthralgias. He denies nausea or vomiting. He has had no diarrhea orconstipation. He states he was able to work but was just very fatigued last night so we decided to be evaluated in the emergency department with his ongoingshortness of breath. He has followed previously with Dr. Perez follow-up Dr. Jara not call he still in PACU as far as I know are you going to talk to the son you from pulmonary medicine. Vital signs on presentation showed a temperature of 98, heart rate 72, respiratory 20, blood pressure of 153/77 pulse ox was 95% on room air however ambulatory pulse ox was done after he was treated by the emergency department physician and he did desat. Oxygen saturation with ambulation was 85 in the emergency department and has improved to 89 once he is on the floor. CBC showeda normal white count but he did have a mild left shift with a 71.4% neutrophilia. Chemistry panel was unremarkable. His initial troponin was 32 with a delta of 32 and a 4-hour troponin of 26. TSH was within normal limits. BNP was normal. We had a CTA of his chest and was found to have no evidence of PE, no infiltrate but does have bilateral pulmonary nodule superimposed on emphysematous changes. Patient does indicate he has had previous pulmonary nodules that have been followed with Dr. Perez as an outpatient. He was treated for COPD exacerbation emergency department and request for admission was made. He will be admitted to [facility] and at the time of admissionI do anticipate at least 2 midnight stay. [facility] Medical History COPD (chronic obstructive pulmonary disease) Hypertension Aortic stenosis Elevated coronary artery calcium score Urinary retention Heart murmur Anxiety On home oxygen therapy Acute hypoxemic respiratory failure Pneumonia COPD (chronic obstructive pulmonary disease) [place] (hard of hearing) Hypertension Home Medications ?Medication ?Instructions ?Recorded ?Last Taken ?Type amlodipine 5 mg tablet 5 mg PO DAILY blood pressure 03/06/21 06/01/25 History albuterol sulfate 2.5 mg/3 mL 2.5 mg (3 mL) inhalation Q4H PRN 12/11/23 06/01/25 Rx (0.083 %) solution for nebulization #25 vials garlic 1,000 mg capsule 1,000 mg PO DAILY general he alth 12/17/23 Unknown History vitamin E 268 mg (400 unit) capsule 268 mg PO DAILY bl ood clot 12/17/23 06/01/25 History prevention alprazolam 0.25 mg tablet (Xanax) 0.375 mg PO QHS anxi ety 02/28/24 05/31/25 History fluticasone fur. 100 mcg-umeclid 1 inh inhalation SUDHAKAR Y 02/28/24 06/01/25 History 62.5 mcg-vilant 25 mcg inhalat.powder (Trelegy Ellipta) albuterol sulfate 90 mcg/actuation 1 inh inhalation Q6 H PRN shortness 12/01/24 05/31/25 History aerosol inhaler of breath or wheezing prednisone 5 mg tablet 5 mg PO DAILY PRN sob 05/31/25 History Allergy/AdvReac Type Severity Reaction Status Date / Time No Known Allergies Allergy Verified 06/01/25 07:22 Surgical History Hx of hernia repair History of replacement of both shoulder joints Social History (Updated 06/01/25 @ 16:[address] Karen Le DO) household members: spouse housing: house Smoking Status: Former smoker alcohol intake: never substance use type: does not use ROS Constitutional Constitutional: Reports change in weight, fatigue and weakness; Denies anorexia,chills, fever(s), malaise, night sweats or other Eyes Eyes: Denies blurry vision, change in eye color, change in vision, discharge from eye(s), double vision, erythema, eye pain, loss of vision or other ENT HEENT: Denies abnormal hearing, dysphagia, ear pain, epistaxis, headache(s), hearing loss, nasal congestion, nasal discharge, post nasal drip, sinus pressure, sore throat or other Cardiovascular Cardiovascular: Reports dyspnea on exertion; Denies chest pain, claudication, edema, lightheadedness, orthopnea, palpitations, paroxysmal nocturnal dyspnea, rapid heart rate, syncope or other Respiratory/Chest Respiratory/Chest: Reports cough, dyspnea, excessive phlegm production, productive cough, shortnessof breath at rest, shortness of breath with exertionand wheezing; Denies hemoptysis or other Gastrointestinal Gastrointestinal: Denies abdominal pain, coffee ground emesis, constipation, diarrhea, dyspepsia, hematemesis, hematochezia, loose stools, melena, nausea, vomiting or other Genitourinary Genitourinary: Denies burning urination, difficulty urinating, dysuria, hematuria, nocturia, urinary frequency, urinary hesitancy, urinary incontinence,urinary urgency or other Musculoskeletal Musculoskeletal: Denies arthralgias, back pain, joint pain, joint stiffness, joint swelling, myalgias, neck pain or other Neurologic Neurologic: Denies abnormal gait, abnormal speech, confusion, disequilibrium, dizziness, focal weakness, headache(s), numbness, paresthesias, seizure-like activity, seizures, syncope, tingling, tremor(s) or other Psychiatric Psychiatric: Denies anxiety, depression, homicidal ideation, suicidal ideation or other Endocrine Endocrinology: Denies change in body appearance, cold intolerance, excessive sweating, heat intolerance, polydipsia, polyuria or other Hematologic/Lymphatic Hematologic/Lymphatic: Denies anemia, easy bleeding, easy bruising, lymphadenopathy or other Allergic/Immunologic Allergic/Immunologic: Denies rhinitis, hives, eczemia, asthma or other Vital Signs Vital Signs Vital Signs: 06/01/25 07:20 06/01/25 07:50 06/01/25 07:51 Temperature 98 F Temperature Source Oral Pulse Rate 72 64 Respiratory Rate 20 H 16 Respiratory Effort Normal Non-Labored Respiratory Depth Normal Respiratory Pattern Normal Normal Blood Pressure 153/77 H Blood Pressure Mean 102 Pulse Ox 95 Oxygen Delivery Method Room Air Room Air 06/01/25 08:18 06/01/25 08:47 06/01/25 09:42 Temperature Temperature Source Pulse Rate 67 75 82 Respiratory Rate 16 16 18 Respiratory Effort Respiratory Depth Respiratory Pattern Normal Normal Blood Pressure 139/76 H Blood Pressure Mean 97 Pulse Ox 94 Oxygen Delivery Method Room Air Weight Weight: 55 kg Body Mass Index (BMI) 19.5 Physical Exam Const alert, oriented x3 and no apparent distress; Negative for average body habitus, healthy appearing or well nourished Constitutional Narrative: Thin, older, white male, sitting up in chair, eating dinner, appears comfortable, nontoxic, currently with comfortable breathing on room air General Appearance: cooperative HEENT normocephalic, head/scalp atraumatic and moist oral mucous membranes; Negative for hearing grossly normal bilaterally HEENT Narrative: Dentition is poor, Mallampati is 1, no thrush, mild hearing loss Neck supple Neck Narrative: Trachea midline Resp normal respiratory effort, no retractions, no use of accessory muscles and No clear to auscultationbilaterally Resp Narrative: Diffusely diminished with scattered and expiratory wheezes Auscultation: wheezes; Negative for crackles or rhonchi Cardio regular rate, regular rhythm, S1 normal heart sound, S2 normal heart sound, no rub and no clicks; Negative for no murmurs Cardio Narrative: 3 out of 6 systolic murmur loudest at right upper sternal border GI normal to inspection, nondistended, normoactive bowel sounds, soft to palpation and non-tender Extremity no clubbing, cyanosis or edema Extremity Narrative: Decreased lean muscle mass Neuro moves all extremities and no focal motor deficits Speech: speech normal Psych affect normal Psych Narrative: very pleasant, makes good eye contact, interacts appropriately Results Lab / Micro Data 06/01/25 07:40 06/01/25 07:40 Labs: Laboratory Results - last 24 hr 06/01/25 07:40: WBC 8.1, RBC 4.92, Hgb 14.1, Hct 42.7, MCV 86.8, MCH 28.7, MCHC 33.0, RDW Std Deviation 46.2 H, RDW Coeff of Sherri 14.4, Plt Count 235, MPV 9.3, Immature Gran % (Auto) 0.600, Neut % (Auto) 71.4 H, Lymph % (Auto) 15.9 L, Coos % (Auto) 9.4, Eos % (Auto) 2.2, Baso % (Auto) 0.5, Absolute Neuts (auto) 5.8, Absolute Lymphs (auto) 1.29, Nucleated RBC % 0, Sodium 137, Potassium 4.4, Chloride 100, Carbon Dioxide 29.4, Anion Gap 8, BUN 26 H, Creatinine 0.99, EstimCreat Clear Calc 50.93, EstGFR (MDRD) Non-Af 80, BUN/Creatinine Ratio 26.3 H, Glucose 104 H, Calcium 9.3, Total Bilirubin 0.70, AST 23, ALT 17, Alkaline Phosphatase 67, Troponin T High Sens 32 H D, Total Protein 6.1, Albumin 4.0, Globulin 2.2, Albumin/Globulin Ratio 1.8, TSH 3.320 06/01/25 09:40: Troponin T Hi Sens 2 Hr 32 H Rhythm Strip Rhythm Strip: Sinus Rhythm Rate: 69 Ectopy: None Imaging Radiology Impression Chest X-Ray 06/01/25 08:04 IMPRESSION: 1. Interval decrease in size of the lingular and right middle lobe lesions. These were likely infectious/inflammatory. No new consolidation. 2. Granulomas. Reading Location: [facility] Assessment & Plan Assessment/Plan (1) Hypoxia: (2) Elevated troponin: (3) Increased sputum production: (4) Pulmonary nodules: PLAN: Plan Exertional hypoxia secondary to acute exacerbation of COPD - Patient with change in sputum production color and volume and per Gold guidelines will start antibiotics with Levaquin 750 daily - CTA of the chest does not show infiltrate or PE - Aggressive pulmonary toilet - Steroids 40 every 8 - Incentive spirometer - Mucinex 1200 p.o. twice daily - Acapella 10 times every 2 hours while awake - Check sputum culture if able - COVID/flu/RSV is negative - Check respiratory viral panel - Hold home inhalers for now Troponin elevation - Suspect related to mild hypoxia with exertion - Initial was 32 with a delta of 32 and a 4-hour troponin of 26 within normal BNP - no further workup at this time as patient has had recent stress test and cardiac catheterization within last 12 months and had nonobstructive disease at that time COPD with emphysematous changes - See therapy above - Restart home inhalers at discharge Pulmonary nodules - Several noted - Will have follow-up with pulmonary medicine after discharge Essential hypertension Continue home amlodipine Nonobstructive CAD - Patient is on no medical therapy at this time per his wishes Mild aortic stenosis - Last echo 06/05/2025 - Ongoing outpatient follow-up Anxiety - Continue home Xanax DVT prophylaxis - Subcu Lovenox 40 daily CODE STATUS - Full code is verified at the time of admission Charges/Coding Visit Charges Inpatient E&M: 99577 Init Hosp L2 06/01/25 1717 Cosigner Signature (if applicable): CC: SENIOR MOBILE DEVELOPERHadley Ferraro; Dr. Karen Le, DO~ Signed [facility]10-07-2025 Evaluation note* Diagnosis Onset Date Resolution Status Admit Date Elevated troponin acute June 01, 2025 12:28pm Hypoxia acute June 01, 2 025 12:28pm Increased sputum production acute June 01, 2025 12:28pm Pulmonary nodules acute June 01, 2025 12:28pm [facility] Work Phone: [phone] Discharge summary Author Vivi Pike [facility] Note Date/Time June 01, 2025 12 :23pm [facility] Medical Records Department [address] [place] [address] Emergency Department Summary 06/01/25 MR#: [id number] Acct: [id number] Name: BEATRIS QUINN Rep #:[id number] : 1950 74 From: Vivi Chen PCP: ROWENA FERRARO Status:REG ER Location: ED HPI History of Present Illness Chief Complaint: Shortness of Breath Informant: patient Narrative Narrative: Patient is a 74-year-old male with history of COPD, wears oxygen at night, anxiety, aortic stenosis, hypertension presenting with worsening shortness of breath as well as left-sided pleuritic chest pain. Patient states that for the past 2 to 3 days he has had increased shortness of breath, chest tightness and is now having pain with deep breath. States it is over his entire left chest and into his breastbone. States has had scant amount of green sputum but he feels that there is more secretions up there just cannot get it out. Does not have any significant relief with his breathing treatments at home. Notes he hashad a mild sore throat. Denies any fevers. Not any blood thinners. Denies anyswelling of his legs. Is not any blood thinners. States he is concerned he haspneumonia and this is how his prior pneumonias have felt like. No other complaints or concerns reported at this time. PE Risk Factors: Negative for Cancer, OCP + Smoking + > 35, Prior DVT or PE, Recent immobilization, Recent surgery or Recent travel [facility] Medical History Aortic stenosis Elevated coronary artery calcium score Urinary retention Heart murmur Anxiety On home oxygen therapy Acute hypoxemic respiratory failure Pneumonia COPD (chronic obstructive pulmonary disease) [place] (hard of hearing) Hypertension Home Medications ?Medication ?Instructions ?Recorded ?Last Taken ?Type amlodipine 5 mg tablet 5 mg PO DAILY blood pressure 03/06/21 06/01/25 History albuterol sulfate 2.5 mg/3 mL 2.5 mg (3 mL) inhalation Q4H PRN 12/11/23 06/01/25 Rx (0.083 %) solution for nebulization #25 vials garlic 1,000 mg capsule 1,000 mg PO DAILY general he alth 12/17/23 Unknown History vitamin E 268 mg (400 unit) capsule 268 mg PO DAILY bl ood clot 12/17/23 06/01/25 History prevention alprazolam 0.25 mg tablet (Xanax) 0.375 mg PO QHS anxi ety 02/28/24 05/31/25 History fluticasone fur. 100 mcg-umeclid 1 inh inhalation SUDHAKAR Y 02/28/24 06/01/25 Histor y 62.5 mcg-vilant 25 mcg inhalat.powder (Trelegy Ellipta) albuterol sulfate 90 mcg/actuation 1 inh inhalation Q6 H PRN shortness 12/01/24 05/31/25 History aerosol inhaler of breath or wheezing prednisone 5 mg tablet 5 mg PO DAILY PRN sob 05/31/25 History Allergy/AdvReac Type Severity Reaction Status Date / Time No Known Allergies Allergy Verified 06/01/25 07:22 Surgical History Hx of hernia repair History of replacement of both shoulder joints Social History Smoking Status: Former smoker ROS ROS ED Constitutional Constitutional ED: Denies chills or fever(s) ENT ENT ED: Reports sore throat; Denies rhinorrhea Cardiovascular Cardiovascular: Reports chest pain; Denies orthopnea or palpitations Respiratory/Chest Respiratory/Chest: Reports cough, dyspnea, dyspnea on exertion and sputum; Denies orthopnea Gastrointestinal Gastrointestinal: Denies abdominal pain, nausea or vomiting Genitourinary Genitourinary ED: Reports other Details: Reports chronic frequent nocturnal urination Musculoskeletal Musculoskeletal: Denies arthralgias or myalgias Integumentary Denies rash Psychiatric Psychiatric: Reports anxiety Hematologic/Lymphatic Hematologic/Lymphatic: Denies easy bleeding or easy bruising EXAM Physical Exam Const Vital Signs: 06/01/25 07:20 06/01/25 07:50 06/01/25 07:51 Temperature 98 F Temperature Source Oral Pulse Rate 72 64 Respiratory Rate 20 H 16 Respiratory Effort Normal Non-Labored Respiratory Depth Normal Respiratory Pattern Normal Normal Blood Pressure 153/77 H Blood Pressure Mean 102 Pulse Ox 95 Oxygen Delivery Method Room Air Room Air 06/01/25 08:18 06/01/25 08:47 06/01/25 09:42 Temperature Temperature Source Pulse Rate 67 75 82 Respiratory Rate 16 16 18 Respiratory Effort Respiratory Depth Respiratory Pattern Normal Normal Blood Pressure 139/76 H Blood Pressure Mean 97 Pulse Ox 94 Oxygen Delivery Method Room Air 06/01/25 11:00 06/01/25 11:59 Temperature 98.2 F Temperature Source Pulse Rate 80 80 Respiratory Rate 16 16 Respiratory Effort Respiratory Depth Respiratory Pattern Blood Pressure 156/85 H 156/85 H Blood Pressure Mean 108 108 Pulse Ox 98 98 Oxygen Delivery Method Positive well nourished and well developed General Appearance ED: well developed and NAD; Negative for pallor HEENT Reports moist mucous membranes Eyes PERRL Neck supple Resp normal respiratory effort Resp Narrative: Diminished breath sounds with in-store and expiratory wheezing present. Significantly diminished breath sounds at the left base compared to the right. No crackles appreciated Cardio regular rate, regular rhythm and no murmurs Cardio Narrative: 2+ radial and PT pulses present GI non-tender and non-distended Auscultation: normoactive bowel sounds Palpation: soft Extremity normal to inspection General Extremety ED: Negative for edema or tenderness General Extremity: Negative for edema Neuro oriented x3 Sensorium / Orientation: alert Motor Exam: Negative for general weakness Psych mental status grossly normal Skin no wounds General Skin Exam: Negative for jaundice or pallor MDM MDM MDM Narrative Medical decision making narrative: Patient evaluated for 2 to 3 days of worsening shortness of breath and chest tightness. Differential includes not limited to acute pleural effusion, ACS, pneumonia and COPD exacerbation. I considered pulmonary emboli but clinical exam much more consistent with COPD exacerbation versus pneumonia. Patient given breathing treatments as well as steroids in the emergency room. He does have a history of coronary artery disease's will obtain a cardiac. EKG does not show any signs of acute ischemia. High-sensitivity troponin minimally elevated at 32 but on repeat is also 32. Low suspicion is ACS as the cause. No leukocytosis. CMP normal. Chest x-ray viewed by myself as well as radiology shows granulomatous disease but no acute consolidation. Patient clinically improved with aerosols in the emergency room. Was given oralprednisone. Was ambulated however and was symptomatic and desatted to 85%. Because of the degree of desaturation to the patient would benefit from admission for further pulmonary treatments, steroids and also cover with IV azithromycin and further respiratory monitoring. He is agreeable with this plan. Case discussed with hospitalist, Dr. Le. She would like to CTA before going tothe floor to ensure he does not have a pulmonary emboli. This is obtained and negative for any PE. Does show bilateral pulmonary nodule superimposed on emphysematous changes. Patient be admitted to [facility]. Lab Data Attestation: I reviewed the patient's lab results. Labs: Laboratory Results - last 24 hr 06/01/25 06/01/25 06/01/25 07:40 09:40 11:41 WBC 8.1 RBC 4.92 Hgb 14.1 Hct 42.7 MCV 86.8 MCH 28.7 MCHC 33.0 RDW Std Deviation 46.2 H RDW Coeff of Sherri 14.4 Plt Count 235 MPV 9.3 Immature Gran % (Auto) 0.600 Neut % (Auto) 71.4 H Lymph % (Auto) 15.9 L Coos % (Auto) 9.4 Eos % (Auto) 2.2 Baso % (Auto) 0.5 Absolute Neuts (auto) 5.8 Absolute Lymphs (auto) 1.29 Nucleated RBC % 0 Sodium 137 Potassium 4.4 Chloride 100 Carbon Dioxide 29.4 Anion Gap 8 BUN 26 H Creatinine 0.99 Estim Creat Clear Calc 50.93 Est GFR (MDRD) Non-Af 80 BUN/Creatinine Ratio 26.3 H Glucose 104 H Calcium 9.3 Total Bilirubin 0.70 AST 23 ALT 17 Alkaline Phosphatase 67 Troponin T High Sens 32 H D Troponin T Hi Sens 2 Hr 32 H Troponin T Hi Sens 4Hr 26 H NT pro BNP II 273 Total Protein 6.1 Albumin 4.0 Globulin 2.2 Albumin/Globulin Ratio 1.8 TSH 3.320 Radiography Diagnostic Testing: Clinical Impression(s) from Imaging Studies Chest X-Ray 06/01/25 08:04 IMPRESSION: 1. Interval decrease in size of the lingular and right middle lobe lesions. These were likely infectious/inflammatory. No new consolidation. 2. Granulomas. Reading Location: [id number] Chest CTA 06/01/25 11:12 IMPRESSION: No evidence of pulmonary embolism. Bilateral pulmonary nodules superimposed on emphysematous changes. Reading Location: [id number] Rhythm Strip Rhythm Strip: Sinus Rhythm Rate: 69 Ectopy: None EKG Initial EKG: Attestation: I personally reviewed and interpreted this EKG as follows: Interpretation: Sinus Rhythm Comments: Normal sinus rhythm at a rate of 69 bpm Normal axis Normal intervals Normal ST segments Compared to prior EKG on patient has reversal of T wave inversions in the lateral/anterior leads Management Discussion w/another healthcare provider: Hospitalist Discharge Plan Dx/Rx/DC Orders Clinical Impression: Asthma exacerbation in COPD, History of coronary artery disease, Hypoxia Disposition Disposition: Acute Care Hospital [facility] What to do if you have Problems For any increased pain, shortness of breath, bleeding, nausea or vomiting, chestpain, or any unexpected problems, contact your Primary Care Provider. Call [facility] ([phone]) or report to the closest Emergency Room. Call 911 if necessary. 06/01/25 1223 <Electronically signed by Vivi Pike DO> Cosigner Signature (if applicable): CC: ROWENA FERRARO ~ Signed [facility] Work Phone: [phone]) 940-406010-07-2025 Discharge summary [facility] Medical Records Department [address] [place] [address] Emergency Department Summary 06/01/25 MR#: [id number] Acct: [id number] Name: BEATRIS QUINN Rep #:[id number] : 1950 74 From: Vivi Chen PCP: ROWENA FERRARO Status:REG ER Location: ED HPI History of Present Illness Chief Complaint: Shortness of Breath Informant: patient Narrative Narrative: Patient is a 74-year-old male with history of COPD, wears oxygen at night, anxiety, aortic stenosis, hypertension presenting with worsening shortness of breath as well as left-sided pleuritic chest pain. Patient states that for the past 2 to 3 days he has had increased shortness of breath, chest tightness and is now having pain with deep breath. States it is over his entire left chest and into his breastbone. States has had scant amount of green sputum but he feels that there is more secretionsup there just cannot get it out. Does not have any significant relief with his breathing treatmentsat home. Notes he hashad a mild sore throat. Denies any fevers. Not any blood thinners. Denies anyswelling of his legs. Is not any blood thinners. States he is concerned he haspneumonia and this is how his prior pneumonias have felt like. No other complaints or concerns reported at this time. PE Risk Factors: Negative for Cancer, OCP + Smoking + > 35, Prior DVT or PE, Recent immobilization, Recent surgery or Recent travel [facility] Medical History Aortic stenosis Elevated coronary artery calcium score Urinary retention Heart murmur Anxiety On home oxygen therapy Acute hypoxemic respiratory failure Pneumonia COPD (chronic obstructive pulmonary disease) [place] (hard of hearing) Hypertension Home Medications ?Medication ?Instructions ?Recorded ?Last Taken ?Type amlodipine 5 mg tablet 5 mg PO DAILY blood pressure 03/06/21 06/01/25 History albuterol sulfate 2.5 mg/3 mL 2.5 mg (3 mL) inhalation Q4H PRN 12/11/23 06/01/25 Rx (0.083 %) solution for nebulization #25 vials garlic 1,000 mg capsule 1,000 mg PO DAILY general he alth 12/17/23 Unknown History vitamin E 268 mg (400 unit) capsule 268 mg PO DAILY bl ood clot 12/17/23 06/01/25 History prevention alprazolam 0.25 mg tablet (Xanax) 0.375 mg PO QHS anxi ety 02/28/24 05/31/25 History fluticasone fur. 100 mcg-umeclid 1 inh inhalation SUDHAKAR Y 02/28/24 06/01/25 Histor y 62.5 mcg-vilant 25 mcg inhalat.powder (Trelegy Ellipta) albuterol sulfate 90 mcg/actuation 1 inh inhalation Q6 H PRN shortness 12/01/24 05/31/25 History aerosol inhaler of breath or wheezing prednisone 5 mg tablet 5 mg PO DAILY PRN sob 05/31/25 History Allergy/AdvReac Type Severity Reaction Status Date / Time No Known Allergies Allergy Verified 06/01/25 07:22 Surgical History Hx of hernia repair History of replacement of both shoulder joints Social History Smoking Status: Former smoker ROS ROS ED Constitutional Constitutional ED: Denies chills or fever(s) ENT ENT ED: Reports sore throat; Denies rhinorrhea Cardiovascular Cardiovascular: Reports chest pain; Denies orthopnea or palpitations Respiratory/Chest Respiratory/Chest: Reports cough, dyspnea, dyspnea on exertion and sputum; Denies orthopnea Gastrointestinal Gastrointestinal: Denies abdominal pain, nausea or vomiting Genitourinary Genitourinary ED: Reports other Details: Reports chronic frequent nocturnal urination Musculoskeletal Musculoskeletal: Denies arthralgias or myalgias Integumentary Denies rash Psychiatric Psychiatric: Reports anxiety Hematologic/Lymphatic Hematologic/Lymphatic: Denies easy bleeding or easy bruising EXAM Physical Exam Const Vital Signs: 06/01/25 07:20 06/01/25 07:50 06/01/25 07:51 Temperature 98 F Temperature Source Oral Pulse Rate 72 64 Respiratory Rate 20 H 16 Respiratory Effort Normal Non-Labored Respiratory Depth Normal Respiratory Pattern Normal Normal Blood Pressure 153/77 H Blood Pressure Mean 102 Pulse Ox 95 Oxygen Delivery Method Room Air Room Air 06/01/25 08:18 06/01/25 08:47 06/01/25 09:42 Temperature Temperature Source Pulse Rate 67 75 82 Respiratory Rate 16 16 18 Respiratory Effort Respiratory Depth Respiratory Pattern Normal Normal Blood Pressure 139/76 H Blood Pressure Mean 97 Pulse Ox 94 Oxygen Delivery Method Room Air 06/01/25 11:00 06/01/25 11:59 Temperature 98.2 F Temperature Source Pulse Rate 80 80 Respiratory Rate 16 16 Respiratory Effort Respiratory Depth Respiratory Pattern Blood Pressure 156/85 H 156/85 H Blood Pressure Mean 108 108 Pulse Ox 98 98 Oxygen Delivery Method Positive well nourished and well developed General Appearance ED: well developed and NAD; Negative for pallor HEENT Reports moist mucous membranes Eyes PERRL Neck supple Resp normal respiratory effort Resp Narrative: Diminished breath sounds with in-store and expiratory wheezing present. Significantly diminished breath sounds at the left base compared to the right. No crackles appreciated Cardio regular rate, regular rhythm and no murmurs Cardio Narrative: 2+ radial and PT pulses present GI non-tender and non-distended Auscultation: normoactive bowel sounds Palpation: soft Extremity normal to inspection General Extremety ED: Negative for edema or tenderness General Extremity: Negative for edema Neuro oriented x3 Sensorium / Orientation: alert Motor Exam: Negative for general weakness Psych mental status grossly normal Skin no wounds General Skin Exam: Negative for jaundice or pallor MDM MDM MDM Narrative Medical decision making narrative: Patient evaluated for 2 to 3 days of worsening shortness of breath and chest tightness. Differential includes not limited to acute pleural effusion, ACS, pneumonia and COPD exacerbation. I consideredpulmonary emboli but clinical exam much more consistent with COPD exacerbation versus pneumonia. Patient given breathing treatments as well as steroids in the emergency room. He does have a history of coronary artery disease's will obtain a cardiac. EKG does not show any signs of acute ischemia. High-sensitivity troponin minimally elevated at 32 but on repeat is also 32. Low suspicion is ACS as the cause. No leukocytosis. CMP normal. Chest x-ray viewed by myself as well as radiology shows granulomatous disease but no acute consolidation. Patient clinically improved with aerosols in the emergency room. Was given oralprednisone. Was ambulated however and was symptomatic and desatted to 85%. Because of the degree of desaturation to the patient would benefit from admission for further pulmonary treatments, steroids and also cover with IV azithromycin and further respiratory monitoring. He is agreeable with this plan. Case discussed with hospitalist, Dr. Le. She would like to CTA before going [facility] to ensure he does not have a pulmonary emboli. This is obtained and negative for any PE. Does show bilateral pulmonary nodule superimposed on emphysematous changes. Patient be admitted to [facility] floor. Lab Data Attestation: I reviewed the patient's lab results. Labs: Laboratory Results - last 24 hr 06/01/25 06/01/25 06/01/25 07:40 09:40 11:41 WBC 8.1 RBC 4.92 Hgb 14.1 Hct 42.7 MCV 86.8 MCH 28.7 MCHC 33.0 RDW Std Deviation 46.2 H RDW Coeff of Sherri 14.4 Plt Count 235 MPV 9.3 Immature Gran % (Auto) 0.600 Neut % (Auto) 71.4 H Lymph % (Auto) 15.9 L Coos % (Auto) 9.4 Eos % (Auto) 2.2 Baso % (Auto) 0.5 Absolute Neuts (auto) 5.8 Absolute Lymphs (auto) 1.29 Nucleated RBC % 0 Sodium 137 Potassium 4.4 Chloride 100 Carbon Dioxide 29.4 Anion Gap 8 BUN 26 H Creatinine 0.99 Estim Creat Clear Calc 50.93 Est GFR (MDRD) Non-Af 80 BUN/Creatinine Ratio 26.3 H Glucose 104 H Calcium 9.3 Total Bilirubin 0.70 AST 23 ALT 17 Alkaline Phosphatase 67 Troponin T High Sens 32 H D Troponin T Hi Sens 2 Hr 32 H Troponin T Hi Sens 4Hr 26 H NT pro BNP II 273 Total Protein 6.1 Albumin 4.0 Globulin 2.2 Albumin/Globulin Ratio 1.8 TSH 3.320 Radiography Diagnostic Testing: Clinical Impression(s) from Imaging Studies Chest X-Ray 06/01/25 08:04 IMPRESSION: 1. Interval decrease in size of the lingular and right middle lobe lesions. These were likely infectious/inflammatory. No new consolidation. 2. Granulomas. Reading Location: [facility] Chest CTA 06/01/25 11:12 IMPRESSION: No evidence of pulmonary embolism. Bilateral pulmonary nodules superimposed on emphysematous changes. Reading Location: [id number] Rhythm Strip Rhythm Strip: Sinus Rhythm Rate: 69 Ectopy: None EKG Initial EKG: Attestation: I personally reviewed and interpreted this EKG as follows: Interpretation: Sinus Rhythm Comments: Normal sinus rhythm at a rate of 69 bpm Normal axis Normal intervals Normal ST segments Compared to prior EKG on patient has reversal of T wave inversions in the lateral/anterior leads Management Discussion w/another healthcare provider: Hospitalist Discharge Plan Dx/Rx/DC Orders Clinical Impression: Asthma exacerbation in COPD, History of coronary artery disease, Hypoxia Disposition Disposition: Acute Care Hospital [facility] What to do if you have Problems For any increased pain, shortness of breath, bleeding, nausea or vomiting, chestpain, or any unexpected problems, contact your Primary Care Provider. Call [facility] ([phone]) or report tothe closest Emergency Room. Call 911 if necessary. 06/01/25 1223 Cosigner Signature (if applicable): CC: ROWENA FERRARO ~ Signed [facility]10-07-2025 Radiology Diagnostic study note [facility] Imaging Services [address] [place] [address] CTA Chest W/WO Contrast MR#: [id number] Acct: [id number] Name: BEATRIS QUINN Rep #: [id number] : 1950 M 74 From: Jose Briscoe MD PCP: ROWENA FERRARO Status: REG ER Study:CTA Chest W/WO Contrast Date of Exam: 06/01/25 Exam# [id number] Ordering Dr: Kira Le DO PROCEDURE: CTA CHEST W/WO CONTRAST 06/01/2025 REASON FOR EXAM: HYPOXIA TECHNIQUE: Procedure Code: CTCTACHWW Modality: CT Procedure: CTA CHEST W/WO CONTRAST Multiplanar Sagittal and Coronal images were obtained. 3D post processing was performed CONTRAST: Isovue-300 VOLUME: 100 mL One or more dose reduction techniques were used (e.g., Automated exposure control, adjustment of the mA and/or kV according to patient size, use of iterative reconstruction technique). RADIATION DOSE SUMMARY: CTDlvol: 6.25 mGy DLP: 186.86 mGycm COMPARISON: Prior CT scan of the thorax dated May 28, 2024. FINDINGS: Hardware: None Lymph nodes: No significant lymph nodes are seen. Heart: Coronary artery calcification Thoracic Aorta: No thoracic aortic aneurysm or dissection. Pulmonary Vessels: No evidence of pulmonary embolism. Lungs and Airways: There is a 19.7 mm x 15.2 mm nodule in the anterior aspect ofthe left upper lobe. 1 cm nodule in the peripheral lateral aspect of the left lower lobe as seen on axial image number 114 there is a 4.9 mm nodule in the lateral aspect of the right middle lobe as seen on axial image number 88. There is a 12.7 mm nodule in the lateralaspect of the right lower lobe as seen on axial image number 75. Stable epicardial soft tissue density adjacent to the inferior vena cava. Diffuse emphysematous changes. Pleura: No pleural effusion. Upper Abdomen: 6 mm nonobstructive calculus in the upper pole calyx of the left kidney. Bones: CT/CTA Chest W/WO Contrast IMPRESSION: No evidence of pulmonary embolism. Bilateral pulmonary nodules superimposed on emphysematous changes. Reading Location: [facility] CC: Dr. Karen Le DO; ROWENA FERRARO ~ Seat Cover Cutter: Signed [facility]10-07-2025 Radiology Diagnostic study note [facility] Imaging Services [address] [place] [address] Chest PA and Lateral MR#: [id number] Acct: [id number] Name: BEATRIS QUINN Rep #: [id number] : 1950 M 74 From: Chidi Powell MD PCP: ROWENA FERRARO Status: REG ER Study:Chest PA and Lateral Date of Exam: 06/01/25 Exam# [id number] Ordering Dr: Deshaun Pike DO PROCEDURE: CHEST PA AND LATERAL 06/01/2025 REASON FOR EXAM: SOB TECHNIQUE: Procedure Code: RADCXR Modality: DX Procedure: CHEST PA AND LATERAL COMPARISON: December 01, 2024 FINDINGS: Hardware: EKG leads. Suture anchors at the humeral heads. Heart: Normal Mediastinum: No mass. Calcified granulomas preaortic and right lower paratracheal region. Lungs: The consolidation and adjacent airspace disease associated with the cavitary nodule in the lingula is smaller. Nodule right middle lobe decreased. No new consolidation. Bones: Degenerative changes are identified within the thoracic spine. RAD/Chest PA and Lateral IMPRESSION: 1. Interval decrease in size of the lingular and right middle lobe lesions. These were likely infectious/inflammatory. No new consolidation. 2. Granulomas. Reading Location: [id number] CC: Dr. Vivi Pike DO; ROWENA FERRARO ~ Seat Cover Cutter: Signed [facility]08-22-2025 NoteHNO ID: [id number] Author: TIGRE RESTREPO MD Service: ? Author Type: Physician Type: Progress Notes Filed: 04/16/2025 10:39 Note Text: [facility] ESTABLISHED PATIENT OFFICE VISIT 04/16/2025 Patient Name: Beatris Quinn PRIMARY CARE PHYSICIAN: Jr Ryan DO CHIEF COMPLAINT: lung nodules, COPD/asthma, allergies, mild CAD, aortic stenosis HISTORY OF PRESENT ILLNESS: Since the last visit with me on 09/2024, Mr. Quinn has been feeling well. 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 voriconazole (VFEND) 200 mg tablet Take 1 tablet by mouth two times a day. jkcxkfchohy-gvjanggwd-sxmszodu (TRELEGY ELLIPTA) 100-62.5-25 mcg inhalation powder Inhale 1 Puff as instructed once daily. MAGNESIUM ORAL Take by mouth. VITAMIN E ORAL Take by mouth. predniSONE EC 5 mg Delayed Release Tab Take 5 mg by mouth. taking 1/2 tablet daily GARLIC ORAL Take by mouth. albuterol HFA (PROAIR HFA) 90 mcg/actuation inhaler 2 puff(s), Inhalation, q4h, PRN as needed for wheezing amLODIPine (NORVASC) 5 mg tablet Take 1 tablet by mouth once daily. omeprazole (PRILOSEC) 20 mg capsule Take 1 capsule by mouth daily before breakfast. 1/2 hr before meal. Herbal Drugs cap Take 1 capsule by mouth once daily. gabapentin (NEURONTIN) 100 mg capsule Take 1 capsule by mouth three times daily for 30 days. fluticasone-vilanterol (BREO ELLIPTA) 200-25 mcg/dose inhaler Inhale 1 Inhalation as instructed once daily. Pt states only using 125mcg now REVIEW OF SYSTEMS Review of Systems Constitutional: Negative for chills, fever and weight loss. Respiratory: Positive for cough and sputum production. Negative for hemoptysis, shortness of breath and wheezing. Cardiovascular: Negative for leg swelling. The remainder of review of systems was negative. PHYSICAL EXAMINATION: BP 128/72 Pulse 72 Wt 122 lb 9.2 oz (55.6kg) SpO2 96% General appearance: Well appearing, alert, in no acute distress, well-hydrated, well nourished. Oropharynx: Lips, mucosa, and tongue normal, teeth and gums normal, oropharynx normal Lungs: Lungs clear to auscultation. No wheezing, rhonchi, rales Heart: RRR without murmur, gallop, or rubs. No ectopy. No edema. Peripheral pulses: Normal Abdomen: Normal abdominal exam, Abdomen soft, non-tender. Bowel sounds normal. No masses, organomegaly Extremities: Normal, Warm, and No cyanosis, no clubbing, Nontender Neuro: no focal deficit Psychiatry: Alert, oriented x3 DATA: Diagnostic tests reviewed and analysed for today's visit, including films and specimens, were personally reviewed by me Most recent labs and imaging results. No results found. CT CHEST WO IVCON Result Date: 10/20/2024 IMPRESSION: 1. Resolution of previous described consolidative opacities in the right lower lobe 2. Some of the previously described pulmonary nodules have slightly decreased in size. No new pulmonary nodules. 3. Again noted is bilateral bronchial wall thickening, bronchiectasis and mucous plugging. Bilateral clustered nodules in a tree-in-bud distribution which are most likely infectious/inflammatory. Seat Cover Cutter: NESTOR Transcribe Date/Time: Oct 20 2024 1:36P Dictated by : MICAELA FONTAINE MD This examination was interpreted and the report reviewed and electronically signed by: MICAELA FONTAINE MD on Oct 20 2024 2:05PM EST IMPRESSION: 1. Lung nodules - ICD9: 793.19, ICD10: R91.8 (primary diagnosis) Ct chest 02/06/2024: Lymphadenopathy up to 14 mm Multiple nodules, some are calcified, others have neoplastic appearance, largest [id number] lateral segment RML. Cavitary type lesion EDWIN [id number] Multiple large opacities, one of them is cavitated Course of antibiotic completed PET scan 03/2024 * Numerous metabolically active bilateral lung nodules are similar to 03/27/2024. * Dominant 2.9 cm left upper lobe nodule with resolved cavitary component. Ct chest 04/2024 Compared to 03/27/2024 exam, most of the prior visualized opacities appear similar in size, except for new peripheral consolidative opacities in the right lower lobe. It should be noted that the dominant lesions in the left upper and middle lobes has diminished in size compared to 06 (more content not included)...[facility]08-22-2025 History of Present illness Narrative* Tigre Restrepo MD - 04/16/2025 9:58 AM EDT Images from the original note were not included. [facility] ESTABLISHED PATIENT OFFICE VISIT 04/16/2025 Patient Name: Beatris Quinn PRIMARY CARE PHYSICIAN: Jr Ryan DO CHIEF COMPLAINT: lung nodules, COPD/asthma, allergies, mild CAD, aortic stenosis HISTORY OF PRESENT ILLNESS: Since the last visit with me on 09/2024, Mr. Quinn has been feeling well. 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 voriconazole (VFEND) 200 mg tablet Take 1 tablet by mouth two times a day. puavsiaohss-uujggxngj-cdobjlri (TRELEGY ELLIPTA) 100-62.5-25 mcg inhalation powder Inhale 1 Puff asinstructed once daily. MAGNESIUM ORAL Take by mouth. VITAMIN E ORAL Take by mouth. predniSONE EC 5 mg Delayed Release Tab Take 5 mg by mouth. taking 1/2 tablet daily GARLIC ORAL Take by mouth. albuterol HFA (PROAIR HFA) 90 mcg/actuation inhaler 2 puff(s), Inhalation, q4h, PRN as needed for wheezing amLODIPine (NORVASC) 5 mg tablet Take 1 tablet by mouth once daily. omeprazole (PRILOSEC) 20 mg capsule Take 1 capsule by mouth daily before breakfast. 1/2 hr before meal. Herbal Drugs cap Take 1 capsule by mouth once daily. gabapentin (NEURONTIN) 100 mg capsule Take 1 capsule by mouth three times daily for 30 days. fluticasone-vilanterol (BREO ELLIPTA) 200-25 mcg/dose inhaler Inhale 1 Inhalation as instructed once daily. Pt states only using 125mcg now REVIEW OF SYSTEMS Review of Systems Constitutional: Negative for chills, fever and weight loss. Respiratory: Positive for cough and sputum production. Negative for hemoptysis, shortness of breathand wheezing. Cardiovascular: Negative for leg swelling. The remainder of review of systems was negative. PHYSICAL EXAMINATION: BP 128/72 Pulse 72 Wt 122 lb 9.2 oz (55.6kg) SpO2 96% General appearance: Well appearing, alert, in no acute distress, well-hydrated, well nourished. Oropharynx: Lips, mucosa, and tongue normal, teeth and gums normal, oropharynx normal Lungs: Lungs clear to auscultation. No wheezing, rhonchi, rales Heart: RRR without murmur, gallop, or rubs. No ectopy. No edema. Peripheral pulses: Normal Abdomen: Normal abdominal exam, Abdomen soft, non-tender. Bowel sounds normal. No masses, organomegaly Extremities: Normal, Warm, and No cyanosis, no clubbing, Nontender Neuro: no focal deficit Psychiatry: Alert, oriented x3 DATA: Diagnostic tests reviewed and analysed for today's visit, including films and specimens, were personally reviewed by me Most recent labs and imaging results. No results found. CT CHEST WO IVCON Result Date: 10/20/2024 IMPRESSION: 1. Resolution of previous described consolidative opacities in the right lower lobe 2. Some of the previously described pulmonary nodules have slightly decreased in size. No new pulmonarynodules. 3. Again noted is bilateral bronchial wall thickening, bronchiectasis and mucous plugging.Bilateral clustered nodules in a tree-in-bud distribution which are most likely infectious/inflammatory. Seat Cover Cutter: NESTOR Transcribe Date/Time: Oct 20 2024 1:36P Dictated by : MICAELA FONTAINE MDThis examination was interpreted and the report reviewed and electronically signed by: MICAELA FONTAINE MD on Oct 20 2024 2:05PM EST IMPRESSION: 1. Lung nodules - ICD9: 793.19, ICD10: R91.8 (primary diagnosis) Ct chest 02/06/2024: Lymphadenopathy up to 14 mm Multiple nodules, some are calcified, others have neoplastic appearance, largest [id number] lateral segment RML. Cavitary type lesion EDWIN [id number] Multiple large opacities, one of them is cavitated Course of antibiotic completed PET scan 03/2024 * Numerous metabolically active bilateral lung nodules are similar to 03/27/2024. * Dominant 2.9 cm left upper lobe nodule with resolved cavitary component. Ct chest 04/2024 Compared to 03/27/2024 exam, most of the prior visualized opacities appear similar in size, except for new peripheral consolidative opacities in the right lower lobe. It should be noted that the dominant lesions in the left upper and middle lobes has diminished in size compared to 02/06/2024 exam (as described), including left lower lobe superior segment consolidative opacity. Therefore, in the light of multiple nodules, and airway inflammatory changes, the dominant lesions are felt to be in infectious/inflammatory (granulomatous- fungal or mycobacterial [nontuberculous?]). Fairly severe emphysema. Multiple mucous plugs. Bronchiectatic changes, possibly associated with aspiration. Ct chest October 16, 2024 Stable nodule on my personal reading pending official report Discussed with the patient starting an antifungal treatment and referral to infectious disease specialty Patient concerned about potential side effects from the voriconazole and would like to wait and think about it before starting the medication He would also like to have another CT scan ch to be done in the future to follow-up on the nodules I will e consult ID meanwhile and get an opinion Ct chest 03/2025: Stable on my personal reading Repeat ct chest in 1 year 03/2026 2. Centrilobular emphysema (HCC) - ICD9: 492.8, ICD10: J43.2 Very severe Continue Trelegy Albuterol as needed hfa/nebulizer 3. Cavitary lesion of lung - ICD9: 518.89, ICD10: J98.4 Serum aspergillus galactomannan and coccidio mildly above normal Will consult ID: recommended voriconazole but patient deferred it. Stable so far 4. Invasive pulmonary aspergillosis Thought to be the case after bronch in 2023 Voriconazole deferred Stable lung opacities on ct chest since 2023 Likely asperillomas 5. Allergy to environmental factors - ICD9: V15.09, ICD10: Z91.09 Possible asthma on top of copd 6. Ex-smoker - ICD9: V15.82, ICD10: Z87.891 Quit 15 yrs ago Tigre Restrepo MD, MATT Staff, Respiratory [facility] [1] Social History Tobacco Use Smoking status: Former Current packs/day: 0.00 Average packs/day: 0.5 packs/day for 36.0 years (18.0 ttl pk-yrs) Types: Cigarettes Start date: 10/24/1969 Quit date: 10/24/2005 Years since quittin.4 Smokeless tobacco: Never Substance Use Topics Alcohol use: Yes Drug use: No [facility] of Present illness Narrative* Alina Good RT(R) - 04/16/2025 9:00 AM EDT Radiology Service Progress Note PATIENT NAME: Beatris Quinn DATE OF SERVICE: April 16, 2025 TIME: 8:56 AM PATIENT IDENTITY VERIFICATION COMPLETED USING TWO (2) IDENTIFIERS: Name and Date of confirmedby patient verbally and Name and Date of confirmed by identification band. FALL SCREENING: Has the patient had 2 falls in the last year or 1 fall with injury or currently using an Ambulatory Assistive Device (Walker, Cane, Wheelchair, Crutches, etc.)? No PATIENT GENDER DATA: Assigned male at PATIENT RELEVANT IMPLANT DATA REVIEWED: Yes PATIENT PRESENTS WITH AN IMPLANTABLE OR ATTACHED MECHANICAL PROCESS ENGINEER: No RADIOLOGY DEPARTMENT: CT; Exam(s) Completed: Chest PERIPHERAL IV DATA: Not applicable SIGNED BY: RT Noah(Jennifer) April 16, 2025 8:56 AM documented in [facility]25 NoteHNO ID: [id number] Author: ALINA GOOD RT(Jennifer) Service: Radiology Author Type: Technologist Type: Progress Notes Filed: 04/16/2025 08:58 Note Text: Radiology Service Progress Note PATIENT NAME: Beatris Quinn DATE OF SERVICE: April 16, 2025 TIME: 8:56 AM PATIENT IDENTITY VERIFICATION COMPLETED USING TWO (2) IDENTIFIERS: Name and Date of confirmed by patient verbally and Name and Date of confirmed by identification band. FALL SCREENING: Has the patient had 2 falls in the last year or 1 fall with injury or currently using an Ambulatory Assistive Device (Walker, Cane, Wheelchair, Crutches, etc.)? No PATIENT GENDER DATA: Assigned male at PATIENT RELEVANT IMPLANT DATA REVIEWED: Yes PATIENT PRESENTS WITH AN IMPLANTABLE OR ATTACHED MECHANICAL PROCESS ENGINEER: No RADIOLOGY DEPARTMENT: CT; Exam(s) Completed: Chest PERIPHERAL IV DATA: Not applicable SIGNED BY: RT Noah(Jennifer) April 16, 2025 8:56 [id number] Discharge summary Author Anirudhkelly Thompson [facility] Note Date/Time December 02, 2024 3:55 pm [facility] Medical Records Department [address] [place] [address] Discharge Summary 12/02/24 1532 MR#: [id number] Acct: [id number] Name: BEATRIS QUINN Rep #:[id number] : 1950 73 From: Anirudhkelly Thompson DO PCP: VIVEK Yañez Status:AD IN Location: [place] [id number]- [id number] Providers Date of Admission: 12/01/24 Primary Care Physician: VIVEK Yañez Reason For Visit: COPD EX. ANGINA Diagnosis Discharge Diagnosis (1) COPD exacerbation: Status: Chronic Code(s): J44.1 - Chronic obstructive pulmonary disease with (acute) exacerbation Plan: Likely brought on by his pneumonia Continue with bronchodilators and methylprednisolone. Patient was hypoxic with a pulse ox around 89% on room air when he presented. Currently between 1 to 2 L/min. Wean oxygen as tolerated. Requesting Duoneb upon discharge. I told him would not since he is already on Trelegy. I tried to explain to he and his that it would be a redundancy of treatment, but recommended he follow up with pulmonary. He was dismissive of that recommendation. He has been using his own Trelegy and albuterol MDI, despite my orders to hold these medications. (2) Pneumonia: Status: Acute Code(s): J18.9 - Pneumonia, unspecified organism Plan: Suspect pneumococcal. Continue antibiotics with ceftriaxone azithromycin which are being initiated in the emergency room Strep and Legionella negative. Check sputum culture. Pulmonary toilet. (3) Stable angina: Status: Acute Code(s): I20.89 - Other forms of angina pectoris Plan: Patient has been experiencing left-sided chest pain with exerting himself. He has had an prior cardiac workup thus far: * Cardiac cath in March 02, 2024 showed EF of 70%. Normal LV wall motion. 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 No dampening of present. Mild irregularities of the LAD, circumflex and RCA. * Echo from June 05, 2024 EF of 59% ?5%. Mild aortic stenosis. Plan is to start him on aspirin. Check fasting lipid panel and check nuclear stress test. Check stress test and troponin series. Plan VTE prophylaxis with enoxaparin CODE STATUS: Addressed with the patient. Patient is full code. Medications at Discharge Home Medications amlodipine 5 mg tablet 5 mg PO DAILY blood pressure 03/06/21 albuterol sulfate 2.5 mg/3 mL (0.083 %) solution for nebulization 2.5 mg (3 mL) inhalation Q4H PRN #25 vials 12/11/23 garlic 1,000 mg capsule 1,000 mg PO DAILY general health 12/17/23 vitamin E 268 mg (400 unit) capsule 268 mg PO DAILY general health 12/17/23 alprazolam 0.25 mg tablet (Xanax) 0.375 mg PO QHS anxiety 02/28/24 fluticasone fur. 100 mcg-umeclid 62.5 mcg-vilant 25 mcg inhalat.powder (Trelegy Ellipta) 1 inh inhalation DAILY 02/28/24 albuterol sulfate 90 mcg/actuation aerosol inhaler 1 inh inhalation Q6H PRN shortness of breath or wheezing 12/01/24 amoxicillin 875 mg-potassium clavulanate 125 mg tablet 1 tab PO BID #10 tabs 12/02/24 prednisone 20 mg tablet 40 mg (2 x 20 mg) PO DAILY #10 tabs 12/02/24 Hospital Course Operations None Procedures Stress test Summary of Care Provided Minutes Spent on Discharge: 32 Hospital Course: Patient presents with shortness of breath. Diagnosed with COPD exacerbation andpneumonia. Patient with a complaining of exertional chest pain that been going on for some time prior to arrival. Patient underwent stress test that was unremarkable. Patient be discharged with antibiotics with Augmentin and prednisone. Patient has improved since he has been here. Patient improved much faster than initially anticipated. Weight / BMI Weight Weight: 56.2 kg Body Mass Index (BMI) 20.0 ABG / Lab / Microbiology Data 12/02/24 04:53 12/02/24 04:53 Laboratory: Laboratory Results - last 24 hr 12/02/24 04:53: WBC 13.7 H, RBC 4.20 L, Hgb 12.3 L, Hct 36.6 L, MCV 87.1, MCH 29.3, MCHC 33.6, RDW Std Deviation 45.8 H, RDW Coeff of Sherri 14.3, Plt Count 294,MPV 9.9, Immature Gran % (Auto) 0.500, Neut % (Auto) 95.2 H, Lymph % (Auto) 2.2 L, Coos % (Auto) 2.0, Eos % (Auto) 0.0, Baso % (Auto) 0.1, Absolute Neuts (auto)13.0 H, Absolute Lymphs (auto) 0.30 L, Nucleated RBC % 0, Sodium 138, Potassium 4.5, Chloride 102, Carbon Dioxide 26.1, Anion Gap 10, BUN 21 H, Creatinine 0.84,Estim Creat Clear Calc 62.26, Est GFR (MDRD) Non-Af 92, BUN/Creatinine Ratio 24.4 H, Glucose 174 H, Calcium 9.6, Triglycerides 36, Cholesterol 177, LDL Cholesterol, Calc 95, VLDL Cholesterol 7, HDL Cholesterol 75, Cholesterol/HDL Ratio 2.37 Microbiology: Microbiology 12/02/24 12:51 Urine, Clean Catch Legionella Antigen - Final 12/02/24 12:51 Urine, Clean Catch Streptococcus pneumoniae Antigen (M - Final 12/01/24 10:10 Sputum, Expectorated/Coughed Gram Stain - Final 12/01/24 06:43 Mucosa - Nose SARS-CoV-2, Influenza & RSV (PCR) - Final D/C Instructions Discharge Diet: No restrictions DC O2, CPAP, BIPAP Needs Home O2 Discharge instructions: No Meaningful Use Info Meaningful Use Meaningful Use Diagnoses (Choose all that apply): None applicable Ischemic Stroke Statin Dosing Therapy Reference: STATIN DOSE THERAPY REFERENCE: * Patients > 75 years receive moderate or high dose statin therapy. * Patients 75 years or YOUNGER should receive HIGH intensity statin dose unless contraindicated. You will be required to document reason for non-treatment if statin daily dose does not meet guidelines. HIGH DOSE STATIN THERAPY DAILY Atorvastatin > than or = to 40 mg Rosuvastatin > than or = to 20 mg Amlodipine + Atorvastatin > than or = to 2.5/40 mg Ezetimibe + Simvastatin 10/80 mg Simvastatin 80mg Discharge Plan Admission Admit Date/Time: 12/01/24 08:16 Primary Reason for Your Visit: Pneumonia. COPD exacerbation. Attending Provider: Anirudh Thompson Primary Care Provider: Michelle Ferraro SENIOR MOBILE DEVELOPER Discharge Orders/Prescriptions Prescriptions: New prednisone 20 mg tablet 40 mg PO DAILY Qty: 10 0RF amoxicillin-pot clavulanate 875-125 mg tablet 1 tab PO BID Qty: 10 0RF Continued Trelegy Ellipta 100-62.5-25 mcg blister with device 1 inh inhalation DAILY amlodipine 5 mg tablet 5 mg PO DAILY Patient Comments: Take 1 tablet by mouth once daily. vitamin E 268 mg (400 unit) capsule 268 mg PO DAILY garlic 1,000 mg capsule 1,000 mg PO DAILY alprazolam [Xanax] 0.25 mg tablet 0.375 mg PO QHS Patient Comments: takes 1.5 tabs albuterol sulfate 90 mcg/actuation HFA aerosol inhaler 1 inh inhalation Q6H PRN (Reason: shortness of breath or wheezing) albuterol sulfate 2.5 mg /3 mL (0.083 %) solution for nebulization 2.5 mg inhalation Q4H PRN Qty: 25 0RF Rx Instructions: Use q4 hours and PRN for wheezing Discontinued prednisone 20 mg tablet 40 mg PO DAILY PRN (Reason: sob) Referrals / Follow Up: Jr Ryan DO [Non-Staff] - Within 2 Weeks Michelle Ferraro NP, NP-C [Primary Care Provider] - Disposition Disposition (needs filled in before D/C Order can be placed): Home, Self Care Charges/Coding Visit Charges Inpatient E&M: 33013 Disch Hosp >30min 12/02/24 1536 <Electronically signed by Anirudh Thompson DO> Cosigner Signature (if applicable): CC: VIVEK Ferraro; Dr. Anirudh Thompson DO~ Signed ADDENDUM by Dr. Anirudh Thompson DO on 12/02/24 at 1555 Addendum Oxygen testing reviewed and patient is ambulatory in home and in the community and requires home oxygen with portability. 12/02/24 1555<Electronically signed by Anirudh Thompson DO> Cosigner Signature (if applicable): cc: SENIOR MOBILE DEVELOPER-Deshaun Ferraro; Dr. Anirudh Thompson DO ~* Signed [facility] Work Phone: [phone]) 965-330104-09-2025 Consult note [facility] Medical Records Department [address] [place] [address] Counseling Note - Pharmacy 12/02/24 1632 MR#: [id number] Acct: [id number] Name: BEATRIS QUINN Rep #:[id number] : 1950 73 From: Niurka Quinn PCP: VIVEK Yañez Status:AD M IN Y Location: [place] [address] Pharmacy [facility] Service has performed discharge medication reconciliation and counseling for this patient. 1. AUGMENTIN 875 PO BID X 5 DAYS 2. PREDNISONE 40MG PO DAILY X 5 DAYS The patient's discharge medication list was reviewed for discrepancies and discrepancies were resolved. The patient was counseled on the following discharge medications and changes in medications for homegoing were reviewed. The Reason for Use, instructions for use, and potential side effects were reviewed for all new medications. The patient's questions regarding all of their medications were answered. The patient was able to verbally demonstrate an understanding of their dischargemedications. Medications at Discharge Home Medications amlodipine 5 mg tablet 5 mg PO DAILY blood pressure 03/06/21 albuterol sulfate 2.5 mg/3 mL (0.083 %) solution for nebulization 2.5 mg (3 mL) inhalation Q4H PRN #25 vials 12/11/23 garlic 1,000 mg capsule 1,000 mg PO DAILY general health 12/17/23 vitamin E 268 mg (400 unit) capsule 268 mg PO DAILY general health 12/17/23 alprazolam 0.25 mg tablet (Xanax) 0.375 mg PO QHS anxiety 02/28/24 fluticasone fur. 100 mcg-umeclid 62.5 mcg-vilant 25 mcg inhalat.powder (Trelegy Ellipta) 1 inh inhalation DAILY 02/28/24 albuterol sulfate 90 mcg/actuation aerosol inhaler 1 inh inhalation Q6H PRN shortness of breath or wheezing 12/01/24 amoxicillin 875 mg-potassium clavulanate 125 mg tablet 1 tab PO BID #10 tabs 12/02/24 prednisone 20 mg tablet 40 mg (2 x 20 mg) PO DAILY #10 tabs 12/02/24 12/02/24 1633 Date _ Niurkamara Quinn Barbara Signature (if applicable): Date CC: ~ Signed [facility]04-09-2025 Discharge summary [facility] Medical Records Department [address] [place] [address] Discharge Summary 12/02/24 1532 MR#: [id number] Acct: [id number] Name: BEATRIS QUINN Eligio Rep #:[id number] : 1950 73 From: Anirudh Thompson DO PCP: VIVEK Yañez Status:AD M IN Location: [facility] [id number]- [id number] Providers Date of Admission: 12/01/24 Primary Care Physician: VIVEK Yañez Reason For Visit: COPD EX. ANGINA Diagnosis Discharge Diagnosis (1) COPD exacerbation: Status: Chronic Code(s): J44.1 - Chronic obstructive pulmonary disease with (acute) exacerbation Plan: Likely brought on by his pneumonia Continue with bronchodilators and methylprednisolone. Patient was hypoxic with a pulse ox around 89% on room air when he presented. Currently between 1 to 2 L/min. Wean oxygen as tolerated. Requesting Duoneb upon discharge. I told him would not since he is already on Trelegy. I tried to explain to he and his that it would be a redundancy of treatment, but recommended he follow up with pulmonary. He was dismissive of that recommendation. He has been using his own Trelegy and albuterol MDI, despite my orders to hold these medications. (2) Pneumonia: Status: Acute Code(s): J18.9 - Pneumonia, unspecified organism Plan: Suspect pneumococcal. Continue antibiotics with ceftriaxone azithromycin which are being initiated in the emergency room Strep and Legionella negative. Check sputum culture. Pulmonary toilet. (3) Stable angina: Status: Acute Code(s): I20.89 - Other forms of angina pectoris Plan: Patient has been experiencing left-sided chest pain with exerting himself. He has had an prior cardiac workup thus far: * Cardiac cath in March 02, 2024 showed EF of 70%. Normal LV wall motion. 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 No dampening of present. Mild irregularities of the LAD, circumflex and RCA. * Echo from June 05, 2024 EF of 59% ?5%. Mild aortic stenosis. Plan is to start him on aspirin. Check fasting lipid panel and check nuclear stress test. Check stress test and troponin series. Plan VTE prophylaxis with enoxaparin CODE STATUS: Addressed with the patient. Patient is full code. Medications at Discharge Home Medications amlodipine 5 mg tablet 5 mg PO DAILY blood pressure 03/06/21 albuterol sulfate 2.5 mg/3 mL (0.083 %) solution for nebulization 2.5 mg (3 mL) inhalation Q4H PRN #25 vials 12/11/23 garlic 1,000 mg capsule 1,000 mg PO DAILY general health 12/17/23 vitamin E 268 mg (400 unit) capsule 268 mg PO DAILY general health 12/17/23 alprazolam 0.25 mg tablet (Xanax) 0.375 mg PO QHS anxiety 02/28/24 fluticasone fur. 100 mcg-umeclid 62.5 mcg-vilant 25 mcg inhalat.powder (Trelegy Ellipta) 1 inh inhalation DAILY 02/28/24 albuterol sulfate 90 mcg/actuation aerosol inhaler 1 inh inhalation Q6H PRN shortness of breath or wheezing 12/01/24 amoxicillin 875 mg-potassium clavulanate 125 mg tablet 1 tab PO BID #10 tabs 12/02/24 prednisone 20 mg tablet 40 mg (2 x 20 mg) PO DAILY #10 tabs 12/02/24 Hospital Course Operations None Procedures Stress test Summary of Care Provided Minutes Spent on Discharge: 32 Hospital Course: Patient presents with shortness of breath. Diagnosed with COPD exacerbation andpneumonia. Patient with a complaining of exertional chest pain that been going on for some time prior to arrival. Patient underwent stress test that was unremarkable. Patient be discharged with antibiotics with Augmentinand prednisone. Patient has improved since he has been here. Patient improved much faster than initially anticipated. Weight / BMI Weight Weight: 56.2 kg Body Mass Index (BMI) 20.0 ABG / Lab / Microbiology Data 12/02/24 04:53 12/02/24 04:53 Laboratory: Laboratory Results - last 24 hr 12/02/24 04:53: WBC 13.7 H, RBC 4.20 L, Hgb 12.3 L, Hct 36.6 L, MCV 87.1, MCH 29.3, MCHC 33.6, RDW Std Deviation 45.8 H, RDW Coeff of Sherri 14.3, Plt Count 294,MPV 9.9, Immature Gran % (Auto) 0.500, Neut % (Auto) 95.2 H, Lymph % (Auto) 2.2 L, Coos % (Auto) 2.0, Eos % (Auto) 0.0, Baso % (Auto) 0.1, Absolute Neuts (auto)13.0 H, Absolute Lymphs (auto) 0.30 L, Nucleated RBC % 0, Sodium 138, Potassium 4.5, Chloride 102, Carbon Dioxide 26.1, Anion Gap 10, BUN 21 H, Creatinine 0.84,Estim Creat Clear Calc 62.26, Est GFR (MDRD) Non-Af 92, BUN/Creatinine Ratio 24.4 H, Glucose 174 H, Calcium 9.6, Triglycerides 36, Cholesterol 177, LDL Cholesterol, Calc 95, VLDL Cholesterol 7, HDL Cholesterol 75, Cholesterol/HDL Ratio 2.37 Microbiology: Microbiology 12/02/24 12:51 Urine, Clean Catch Legionella Antigen - Final 12/02/24 12:51 Urine, Clean Catch Streptococcus pneumoniae Antigen (M - Final 12/01/24 10:10 Sputum, Expectorated/Coughed Gram Stain - Final 12/01/24 06:43 Mucosa - Nose SARS-CoV-2, Influenza & RSV (PCR) - Final D/C Instructions Discharge Diet: No restrictions DC O2, CPAP, BIPAP Needs Home O2 Discharge instructions: No Meaningful Use Info Meaningful Use Meaningful Use Diagnoses (Choose all that apply): None applicable Ischemic Stroke Statin Dosing Therapy Reference: STATIN DOSE THERAPY REFERENCE: * Patients > 75 years receive moderate or high dose statin therapy. * Patients 75 years or YOUNGER should receive HIGH intensity statin dose unless contraindicated. You will be required to document reason for non-treatment if statin daily dose does not meet guidelines. HIGH DOSE STATIN THERAPY DAILY Atorvastatin > than or = to 40 mg Rosuvastatin > than or = to 20 mg Amlodipine + Atorvastatin > than or = to 2.5/40 mg Ezetimibe + Simvastatin 10/80 mg Simvastatin 80mg Discharge Plan Admission Admit Date/Time: 12/01/24 08:16 Primary Reason for Your Visit: Pneumonia. COPD exacerbation. Attending Provider: Anirudh Thompson Primary Care Provider: Michelle Ferraro SENIOR MOBILE DEVELOPER Discharge Orders/Prescriptions Prescriptions: New prednisone 20 mg tablet 40 mg PO DAILY Qty: 10 0RF amoxicillin-pot clavulanate 875-125 mg tablet 1 tab PO BID Qty: 10 0RF Continued Trelegy Ellipta 100-62.5-25 mcg blister with device 1 inh inhalation DAILY amlodipine 5 mg tablet 5 mg PO DAILY Patient Comments: Take 1 tablet by mouth once daily. vitamin E 268 mg (400 unit) capsule 268 mg PO DAILY garlic 1,000 mg capsule 1,000 mg PO DAILY alprazolam [Xanax] 0.25 mg tablet 0.375 mg PO QHS Patient Comments: takes 1.5 tabs albuterol sulfate 90 mcg/actuation HFA aerosol inhaler 1 inh inhalation Q6H PRN (Reason: shortness of breath or wheezing) albuterol sulfate 2.5 mg /3 mL (0.083 %) solution for nebulization 2.5 mg inhalation Q4H PRN Qty: 25 0RF Rx Instructions: Use q4 hours and PRN for wheezing Discontinued prednisone 20 mg tablet 40 mg PO DAILY PRN (Reason: sob) Referrals / Follow Up: Jr Ryan DO [Non-Staff] - Within 2 Weeks Michelle Ferraro NP, NP-C [Primary Care Provider] - Disposition Disposition (needs filled in before D/C Order can be placed): Home, Self Care Charges/Coding Visit Charges Inpatient E&M: 37849 Disch Hosp >30min 12/02/24 1536 Cosigner Signature (if applicable): CC: VIVEK Ferraro; Dr. Anirudh Thompson DO~ Signed ADDENDUM by Dr. Anirudh Thompson DO on 12/02/24 at 1555 Addendum Oxygen testing reviewed and patient is ambulatory in home and in the community and requires home oxygen with portability. 12/02/24 1555 Cosigner Signature (if applicable): cc: VIVEK Ferraro; Dr. Anirudh Thompson DO ~* Signed [facility]04-09-2025 [facility] Medical Records Department [address] [place] [address] Discharge Summary 12/02/24 1532 MR#: [id number] Acct: [id number] Name: BEATRIS QUINN Rep #: [id number] : 1950 73 From: Anirudh Thompson DO PCP: VIVEK Yañez Status:ADM IN Location: [facility] [id number] Providers Date of Admission: 12/01/24 Primary Care Physician: VIVEK Yañez Reason For Visit: COPD EX. ANGINA Diagnosis Discharge Diagnosis (1) COPD exacerbation: Status: Chronic Code(s): J44.1 - Chronic obstructive pulmonary disease with (acute) exacerbation Plan: Likely brought on by his pneumonia Continue with bronchodilators and methylprednisolone. Patient was hypoxic with a pulse ox around 89% on room air when he presented. Currently between 1 to 2 L/min. Wean oxygen as tolerated. Requesting Duoneb upon discharge. I told him would not since he is already on Trelegy. I tried to explain to he and his that it would be a redundancy of treatment, but recommended he follow up with pulmonary. He was dismissive of that recommendation. He has been using his own Trelegy and albuterol MDI, despite my orders to hold these medications. (2) Pneumonia: Status: Acute Code(s): J18.9 - Pneumonia, unspecified organism Plan: Suspect pneumococcal. Continue antibiotics with ceftriaxone azithromycin which are being initiated in the emergency room Strep and Legionella negative. Check sputum culture. Pulmonary toilet. (3) Stable angina: Status: Acute Code(s): I20.89 - Other forms of angina pectoris Plan: Patient has been experiencing left-sided chest pain with exerting himself. He has had an prior cardiac workup thus far: * Cardiac cath in March 02, 2024 showed EF of 70%. Normal LV wall motion. 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 No dampening of present. Mild irregularities of the LAD, circumflex and RCA. * Echo from June 05, 2024 EF of 59% ???5%. Mild aortic stenosis. Plan is to start him on aspirin. Check fasting lipid panel and check nuclear stress test. Check stress test and troponin series. Plan VTE prophylaxis with enoxaparin CODE STATUS: Addressed with the patient. Patient is full code. Medications at Discharge Home Medications amlodipine 5 mg tablet 5 mg PO DAILY blood pressure 03/06/21 albuterol sulfate 2.5 mg/3 mL (0.083 %) solution for nebulization 2.5 mg (3 mL) inhalation Q4H PRN #25 vials 12/11/23 garlic 1,000 mg capsule 1,000 mg PO DAILY general health 12/17/23 vitamin E 268 mg (400 unit) capsule 268 mg PO DAILY general health 12/17/23 alprazolam 0.25 mg tablet (Xanax) 0.375 mg PO QHS anxiety 02/28/24 fluticasone fur. 100 mcg-umeclid 62.5 mcg-vilant 25 mcg inhalat.powder (Trelegy Ellipta) 1 inh inhalation DAILY 02/28/24 albuterol sulfate 90 mcg/actuation aerosol inhaler 1 inh inhalation Q6H PRN shortness of breath or wheezing 12/01/24 amoxicillin 875 mg-potassium clavulanate 125 mg tablet 1 tab PO BID #10 tabs 12/02/24 prednisone 20 mg tablet 40 mg (2 x 20 mg) PO DAILY #10 tabs 12/02/24 Hospital Course Operations None Procedures Stress test Summary of Care Provided Minutes Spent on Discharge: 32 Hospital Course: Patient presents with shortness of breath. Diagnosed with COPD exacerbation and pneumonia. Patient with a complaining of exertional chest pain that been going on for some time prior to arrival. Patient underwent stress test that was unremarkable. Patient be discharged with antibiotics with Augmentin and prednisone. Patient has improved since he has been here. Patient improved much faster than initially anticipated. Weight / BMI Weight Weight: 56.2 kg Body Mass Index (BMI) 20.0 ABG / Lab / Microbiology Data 12/02/24 04:53 12/02/24 04:53 Laboratory: Laboratory Results - last 24 hr 12/02/24 04:53: WBC 13.7 H, RBC 4.20 L, Hgb 12.3 L, Hct 36.6 L, MCV 87.1, MCH 29.3, MCHC 33.6, RDW Std Deviation 45.8 H, RDW Coeff of Sherri 14.3, Plt Count 294, MPV 9.9, Immature Gran % (Auto) 0.500, N eut % (Auto) 95.2 H, Lymph % (Auto) 2.2 L, Coos % (Auto) 2.0, Eos % (Auto) 0.0, Baso % (Auto) 0.1, A bsolute Neuts (auto) 13.0 H, Absolute Lymphs (auto) 0.30 L, Nucleated RBC % 0, Sodium 138, Potassium 4.5, Chloride 102, Carbon Dioxide 26.1, Anion Gap 10, BUN 21 H, Creatinine 0.84, Estim Creat Clear Calc 62.26, Est GFR (MDRD) Non-Af 92, BUN/Creatinine Ratio 24.4 H, Glucose 174 H, Calcium 9.6, Triglycerides 36, Cholesterol 177, LDL Cholesterol, Calc 95, VLDL Cholesterol 7, HDL Cholesterol 75, Cholesterol/HDL Ratio 2.37 Microbiology: Microbiology 12/02/24 12:51 Urine, Clean Catch Legionella Antigen - Final 12/02/24 12:51 Urine, Clean Catch Streptococcus pneumoniae Antigen (M - Final 12/01/24 10:10 Sputum, Expectorated/Coughed Gram St (more content not included)...[facility]04-09-2025 Progress note Author Anirudh Thompson [facility] Note Date/Time December 02, 2024 1:20 pm [facility] Medical Records Department [address] [place] [address] Progress Note - Hospitalist 12/02/24814 MR#: [id number] Acct: [id number] Name: BEATRIS QUINN Rep #:[id number] : 1950 73 From: Anirudh Thompson DO PCP: CHUCKY YañezC Status:AD M IN Location: [place] [id number] Reason for Visit Reason for Visit: Diagnoses Other forms of angina pectoris (12/01/24) Pneumonia, unspecified organism (12/01/24) Chronic obstructive pulmonary disease with (acute) exacerbation (12/01/24) Subjective Subjective Breathing better. Has been using his Trelegy and albuterol MDI despite my ordersto not continue those. He wants Duoneb upon discharge as a respiratory therapisttold him it is better for COPD. Objective Data Objective Data Vital Signs: Vital Signs Temp Pulse Resp BP Pulse Ox O2 Del Method O2 Flow Rate 36.6 C 75 22 H 116/76 92 Room Air 2 12/02/24 04:15 12/02/24 05:42 12/02/24 05:42 12/02/24 04:15 12/02/24 04:15 12/02/24 05:00 12/01/24 11:55 Oxygen Flow Rate (L/min) 2 Oxygen Delivery Method Room Air Weight: 56.2 kg Body Mass Index (BMI) 20.0 Intake & Output: Intake and Output for Last 24 Hours 11/30/24 12/01/24 12/02/24 23:59 23:59 23:59 Intake Total 1105 / 1105 Balance 1105 / 1105 Lab / Micro Data 12/02/24 04:53 12/02/24 04:53 Labs: Laboratory Results - last 24 hr 12/01/24 10:40: Troponin T High Sens 17 12/01/24 12:26: Troponin T Hi Sens 2 Hr 16 12/01/24 14:35: Troponin T Hi Sens 4Hr 20 12/02/24 04:53: WBC 13.7 H, RBC 4.20 L, Hgb 12.3 L, Hct 36.6 L, MCV 87.1, MCH 29.3, MCHC 33.6, RDW Std Deviation 45.8 H, RDW Coeff of Sherri 14.3, Plt Count 294,MPV 9.9, Immature Gran % (Auto) 0.500, Neut % (Auto) 95.2 H, Lymph % (Auto) 2.2 L, Coos % (Auto) 2.0, Eos % (Auto) 0.0, Baso % (Auto) 0.1, Absolute Neuts (auto)13.0 H, Absolute Lymphs (auto) 0.30 L, Nucleated RBC % 0, Sodium 138, Potassium 4.5, Chloride 102, Carbon Dioxide 26.1, Anion Gap 10, BUN 21 H, Creatinine 0.84,Estim Creat Clear Calc 62.26, Est GFR (MDRD) Non-Af 92, BUN/Creatinine Ratio 24.4 H, Glucose 174 H, Calcium 9.6 Micro: Microbiology 12/01/24 06:43 Mucosa - Nose SARS-CoV-2, Influenza & RSV (PCR) - Final Physical Exam Const alert and no apparent distress Constitutional Narrative: up ambulating in the room on room air. no respiratory distress. HEENT head/scalp atraumatic and moist oral mucous membranes Resp normal respiratory effort and no retractions Assessment & Plan Assessment/Plan (1) COPD exacerbation: PLAN: Likely brought on by his pneumonia Continue with bronchodilators and methylprednisolone. Patient was hypoxic with a pulse ox around 89% on room air when he presented. Currently between 1 to 2 L/min. Wean oxygen as tolerated. Requesting Duoneb upon discharge. I told him would not since he is already on Trelegy. I tried to explain to he and his that it would be a redundancy of treatment, but recommended he follow up with pulmonary. He was dismissive of that recommendation. He has been using his own Trelegy and albuterol MDI, despite my orders to hold these medications. (2) Pneumonia: PLAN: Suspect pneumococcal. Continue antibiotics with ceftriaxone azithromycin which are being initiated in the emergency room Strep and Legionella negative. Check sputum culture. Pulmonary toilet. (3) Stable angina: PLAN: Patient has been experiencing left-sided chest pain with exerting himself. He has had an prior cardiac workup thus far: * Cardiac cath in March 02, 2024 showed EF of 70%. Normal LV wall motion. 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 No dampening of present. Mild irregularities of the LAD, circumflex and RCA. * Echo from June 05, 2024 EF of 59% ?5%. Mild aortic stenosis. Plan is to start him on aspirin. Check fasting lipid panel and check nuclear stress test. Check stress test and troponin series. PLAN: Plan VTE prophylaxis with enoxaparin CODE STATUS: Addressed with the patient. Patient is full code. Charges/Coding Visit Charges Inpatient E&M: 34265 Subs Hosp L2 12/02/24 1320 <Electronically signed by Anirudh Thompson DO> Cosigner Signature (if applicable): CC: ~ Signed [facility] Work Phone: 1(503) 518-321004-09-2025 Progress note [facility] Medical Records Department [address] [place] [address] Progress Note - Hospitalist 12/02/24 0815 MR#: [id number] Acct: [id number] Name: BEATRIS QUINN Rep #:[id number] : 1950 73 From: Anirudh Thompson DO PCP: Michelle Ferraro NP-C Status:AD IN Location: [place] [address] Reason for Visit Reason for Visit: Diagnoses Other forms of angina pectoris (12/01/24) Pneumonia, unspecified organism (12/01/24) Chronic obstructive pulmonary disease with (acute) exacerbation (12/01/24) Subjective Subjective Breathing better. Has been using his Trelegy and albuterol MDI despite my ordersto not continue those. He wants Duoneb upon discharge as a respiratory therapisttold him it is better for COPD. Objective Data Objective Data Vital Signs: Vital Signs Temp Pulse Resp BP Pulse Ox O2 Del Method O2 Flow Rate 36.6 C 75 22 H 116/76 92 Room Air 2 12/02/24 04:15 12/02/24 05:42 12/02/24 05:42 12/02/24 04:15 12/02/24 04:15 12/02/24 05:00 12/01/24 11:55 Oxygen Flow Rate (L/min) 2 Oxygen Delivery Method Room Air Weight: 56.2 kg Body Mass Index (BMI) 20.0 Intake & Output: Intake and Output for Last 24 Hours 11/30/24 12/01/24 12/02/24 23:59 23:59 23:59 Intake Total 1105 / 1105 Balance 1105 / 1105 Lab / Micro Data 12/02/24 04:53 12/02/24 04:53 Labs: Laboratory Results - last 24 hr 12/01/24 10:40: Troponin T High Sens 17 12/01/24 12:26: Troponin T Hi Sens 2 Hr 16 12/01/24 14:35: Troponin T Hi Sens 4Hr 20 12/02/24 04:53: WBC 13.7 H, RBC 4.20 L, Hgb 12.3 L, Hct 36.6 L, MCV 87.1, MCH 29.3, MCHC 33.6, RDW Std Deviation 45.8 H, RDW Coeff of Sherri 14.3, Plt Count 294,MPV 9.9, Immature Gran % (Auto) 0.500, Neut % (Auto) 95.2 H, Lymph % (Auto) 2.2 L, Coos % (Auto) 2.0, Eos % (Auto) 0.0, Baso % (Auto) 0.1, Absolute Neuts (auto)13.0 H, Absolute Lymphs (auto) 0.30 L, Nucleated RBC % 0, Sodium 138, Potassium 4.5, Chloride 102, Carbon Dioxide 26.1, Anion Gap 10, BUN 21 H, Creatinine 0.84,Estim Creat Clear Calc 62.26, Est GFR (MDRD) Non-Af 92, BUN/Creatinine Ratio 24.4 H, Glucose 174 H, Calcium 9.6 Micro: Microbiology 12/01/24 06:43 Mucosa - Nose SARS-CoV-2, Influenza & RSV (PCR) - Final Physical Exam Const alert and no apparent distress Constitutional Narrative: up ambulating in the room on room air. no respiratory distress. HEENT head/scalp atraumatic and moist oral mucous membranes Resp normal respiratory effort and no retractions Assessment & Plan Assessment/Plan (1) COPD exacerbation: PLAN: Likely brought on by his pneumonia Continue with bronchodilators and methylprednisolone. Patient was hypoxic with a pulse ox around 89% on room air when he presented. Currently between 1 to 2 L/min. Wean oxygen as tolerated. Requesting Duoneb upon discharge. I told him would not since he is already on Trelegy. I tried to explain to he and his that it would be a redundancy of treatment, but recommended he follow up with pulmonary. He was dismissive of that recommendation. He has been using his own Trelegy and albuterol MDI, despite my orders to hold these medications. (2) Pneumonia: PLAN: Suspect pneumococcal. Continue antibiotics with ceftriaxone azithromycin which are being initiated in the emergency room Strep and Legionella negative. Check sputum culture. Pulmonary toilet. (3) Stable angina: PLAN: Patient has been experiencing left-sided chest pain with exerting himself. He has had an prior cardiac workup thus far: * Cardiac cath in March 02, 2024 showed EF of 70%. Normal LV wall motion. 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 No dampening of present. Mild irregularities of the LAD, circumflex and RCA. * Echo from June 05, 2024 EF of 59% ?5%. Mild aortic stenosis. Plan is to start him on aspirin. Check fasting lipid panel and check nuclear stress test. Check stress test and troponin series. PLAN: Plan VTE prophylaxis with enoxaparin CODE STATUS: Addressed with the patient. Patient is full code. Charges/Coding Visit Charges Inpatient E&M: 74837 Subs Hosp L2 12/02/24 1320 Cosigner Signature (if applicable): CC: ~ Signed [facility]04-08-2025 History and physical note Author Anirudh Thompson [facility] Note Date/Time December 01, 2024 8:47 am [facility] Medical Records Department [address] [place] [address] H&P Exam - Hospitalist 12/01/24 0831 MR#: [id number] Acct: [id number] Name: BEATRIS QUINN Rep #:[id number] : 1950 73 From: Anirudh Thompson DO PCP: Dr. Jr Ryan, Status:REG ER Location: ED HPI - General General Date of Service: 12/01/24 Chief Complaint: shortness of breath. HPI Narrative BEATRIS QUINN, is a 73 M who presents w 1-2 days of SBO and cough. Productive sputum. presented to ED w pulse of 89% on room air. CXR showed pneumonia. He received BDs, methylpred and abx w CTX and azithromycin. Similar to prior episodes of COPD exacerbation. Also, he has been experiencing exertional left-sided chest pain since August, that gets better with rest. CP does not radiate. [facility] Medical History Aortic stenosis Elevated coronary artery calcium score Urinary retention Heart murmur Anxiety On home oxygen therapy Acute hypoxemic respiratory failure Pneumonia COPD (chronic obstructive pulmonary disease) [place] (hard of hearing) Hypertension Home Medications ?Medication ?Instructions ?Recorded ?Last Taken ?Type amlodipine 5 mg tablet 5 mg PO DAILY blood pressure 03/06/21 03/02/24 History albuterol sulfate 2.5 mg/3 mL 2.5 mg (3 mL) inhalation Q4H PRN 12/11/23 Unknown Rx (0.083 %) solution for nebulization #25 vials garlic 1,000 mg capsule 1,000 mg PO DAILY general he alth 12/17/23 Unknown History vitamin E 268 mg (400 unit) capsule 268 mg PO DAILY Unocoin 12/17/23 Unknown History alprazolam 0.25 mg tablet (Xanax) 0.375 mg PO QHS anxi ety 02/28/24 Unknown History fluticasone fur. 100 mcg-umeclid 1 inh inhalation SUDHAKAR Y 02/28/24 Unknown History 62.5 mcg-vilant 25 mcg inhalat.powder (Trelegy Ellipta) prednisone 20 mg tablet 40 mg PO DAILY PRN sob 03/0203/02/24 History albuterol sulfate 90 mcg/actuation 1 inh inhalation Q6 H PRN shortness 12/01/24 Unknown History aerosol inhaler of breath or wheezing Allergy/AdvReac Type Severity Reaction Status Date / Time No Known Allergies Allergy Verified 12/01/24 06:21 Surgical History Hx of hernia repair History of replacement of both shoulder joints Social History Smoking Status: Former smoker ROS ROS Narrative All review of systems were negative except as mentioned above in the history of present illness and the other review of systems. Vital Signs Vital Signs Vital Signs: 12/01/24 06:21 12/01/24 06:26 12/01/24 06:27 Temperature 36.6 C 36.6 C Temperature Source Oral Oral Pulse Rate 89 83 83 Respiratory Rate 22 H 27 H Respiratory Effort Respiratory Pattern Blood Pressure 192/91 H 192/91 H Blood Pressure Mean 124 124 Pulse Ox 78 98 97 Oxygen Delivery Method Room Air Nasal Cannula Nasal Cannula Oxygen Flow Rate (L/min) 2 2 12/01/24 06:32 12/01/24 06:59 12/01/24 06:59 Temperature Temperature Source Pulse Rate 75 Respiratory Rate 20 H Respiratory Effort Short of Breath Respiratory Pattern Tachypnea Normal Blood Pressure Blood Pressure Mean Pulse Ox 98 Oxygen Delivery Method Nasal Cannula Nasal Cannula Oxygen Flow Rate (L/min) 2 2 12/01/24 07:11 12/01/24 07:20 12/01/24 08:00 Temperature 37.2 C 37.2 C Temperature Source Oral Oral Pulse Rate 87 82 Respiratory Rate 19 H 16 Respiratory Effort Respiratory Pattern Blood Pressure 147/84 H 123/82 H Blood Pressure Mean 105 95 Pulse Ox 99 95 96 Oxygen Delivery Method Room Air Nasal Cannula Nasal Cannula Oxygen Flow Rate (L/min) 1 1 Weight Weight: 57.1 kg Body Mass Index (BMI) 20.2 Physical Exam Narrative - Physical Exam General: Alert, Oriented x3, Cooperative HEENT: Atraumatic, Normocephalic Oral: Moist Mucosa, No Gingival or Mucosal Lesions/ Ulcerations Neck: Supple, No JVD, Negative Carotid Bruits Lungs: Diminished breath coarse sounds bilaterally Cardiovascular: Regular rate, Normal S1, Normal S2, No murmurs Abdomen: Bowel Sounds Present, Soft, Non Tender, Non-Distended, No Hepato-splenomegaly Extremities: No clubbing, No cyanosis, No edema, Capillary Refill Less than 3 Seconds Skin: No rashes, No breakdown Musculoskeletal: No Tenderness to Palpation of Joints or Extremities. No reproducible anterior chest wall tenderness. Neurological: Neuro grossly intact Psych/Mental Status: Normal Affect, Appropriate Results Lab / Micro Data Attestation: I reviewed the patient's lab results. 12/01/24 06:35 12/01/24 06:35 Labs: Laboratory Results - last 24 hr 12/01/24 06:35: WBC 13.3 H, RBC 4.74, Hgb 13.7, Hct 41.4, MCV 87.3, MCH 28.9, MCHC 33.1, RDW Std Deviation 45.2 H, RDW Coeff of Sherri 14.1, Plt Count 313, MPV 9.3, Immature Gran % (Auto) 0.600, Neut % (Auto) 91.1 H, Lymph % (Auto) 3.0 L, Coos % (Auto) 5.1, Eos % (Auto) 0.0, Baso % (Auto) 0.2, Absolute Neuts (auto) 12.1 H, Absolute Lymphs (auto) 0.40 L, Nucleated RBC % 0, Sodium 139, Potassium 4.2, Chloride 100, Carbon Dioxide 26.8, Anion Gap 12, BUN 17, Creatinine 0.93, Estim Creat Clear Calc 57.13, Est GFR (MDRD) Non-Af 87, BUN/Creatinine Ratio 18.4, Glucose 229 H, Calcium 9.4, Magnesium 2.0 Micro: Microbiology 12/01/24 06:43 Mucosa - Nose SARS-CoV-2, Influenza & RSV (PCR) - Final Imaging Radiology Impression Chest X-Ray 12/01/24 07:22 IMPRESSION: Findings consistent with pulmonary emphysema/COPD. Patchy infiltrates at the right lower and left mid lung zones may represent confluent areas of scarring versus infectious process. Recommend follow-up until resolution. Reading Location: [id number] Assessment & Plan Assessment/Plan (1) COPD exacerbation: PLAN: Likely brought on by his pneumonia Continue with bronchodilators and methylprednisolone. Patient was hypoxic with a pulse ox around 89% on room air when he presented. Currently between 1 to 2 L/min. Wean oxygen as tolerated. (2) Pneumonia: PLAN: Suspect pneumococcal. Continue antibiotics with ceftriaxone azithromycin which are being initiated in the emergency room Check urinary antigens for strep and Legionella. Check sputum culture. Pulmonary toilet. (3) Stable angina: PLAN: Patient has been experiencing left-sided chest pain with exerting himself. He has had an prior cardiac workup thus far: * Cardiac cath in March 02, 2024 showed EF of 70%. Normal LV wall motion. 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 No dampening of present. Mild irregularities of the LAD, circumflex and RCA. * Echo from June 05, 2024 EF of 59% ?5%. Mild aortic stenosis. Plan is to start him on aspirin. Check fasting lipid panel and check nuclear stress test. Check stress test and troponin series. PLAN: Plan VTE prophylaxis with enoxaparin CODE STATUS: Addressed with the patient. Patient is full code. Case discussed with the patient's at bedside. She had been saying that hisheart was fine. I reviewed his prior records with she and the patient at bedside and explained the indications for the stress test including his chest pain, his cleft like lesion in his left main. Charges/Coding Visit Charges Inpatient E&M: 35032 Init Hosp L3 12/01/24 0847 <Electronically signed by Anirudh Thompson DO> Cosigner Signature (if applicable): CC: Dr. Anirudh Thompson DO; Dr. Jr Ryan DO~ Signed [facility] Work Phone: 1(575) 703-680504-08-2025 Evaluation note* Diagnosis Onset Date Resolution Status Admit Date Hypoxia acute December 01 8:16am Pneumonia acute December 01 8:16am Stable angina acute December 01, 2024 8:16am COPD exacerbation chronic December 012024 8:16am Hypertension chronic December 01, 2 025 8:16am [facility] Work Phone: 1(842) 417-276604-08-2025 Discharge summary Author Todd Valdovinos [facility] Note Date/Time December 01, 2024 8:00 am [facility] Medical Records Department [address] [place] [address] Emergency Department Summary 12/01/24 MR#: [id number] Acct: [id number] Name: BEATRIS QUINN Rep #:[id number] : 1950 73 From: Todd Valdovinos DO PCP: Dr. Jr Ryan DO Status:REG ER Location: ED HPI History of Present Illness Chief Complaint: Shortness of Breath Informant: patient and spouse/S.O. Narrative Narrative: Patient is a 73-year-old male with history of hypertension and COPD. He states that he quit smoking roughly 20 years ago. He reports he has a oxygen concentrator at home but does not need to wear this as his pulse ox is typically mid 90s on room air. However in the last 1 to 2 days he has been having increased cough and shortness of breath. He states that it is worse with exertion. He denies any fevers or known sick contacts but with his shortness of breath persisting he has concern for potential infection and therefore comes in for evaluation. Patient does state the last time he felt this way he needed admitted secondary to pneumonia and influenza which was roughly 1 year ago [facility] Medical History Aortic stenosis Elevated coronary artery calcium score Urinary retention Heart murmur Anxiety On home oxygen therapy Acute hypoxemic respiratory failure Pneumonia COPD (chronic obstructive pulmonary disease) [place] (hard of hearing) Hypertension Home Medications ?Medication ?Instructions ?Recorded ?Last Taken ?Type amlodipine 5 mg tablet 5 mg PO DAILY blood pressure 03/06/21 03/02/24 History albuterol sulfate 2.5 mg/3 mL 2.5 mg (3 mL) inhalation Q4H PRN 12/11/23 Unknown Rx (0.083 %) solution for nebulization #25 vials garlic 1,000 mg capsule 1,000 mg PO DAILY general he alth 12/17/23 Unknown History vitamin E 268 mg (400 unit) capsule 268 mg PO DAILY QuVIS 12/17/23 Unknown History alprazolam 0.25 mg tablet (Xanax) 0.375 mg PO QHS anxi ety 02/28/24 Unknown History fluticasone fur. 100 mcg-umeclid 1 inh inhalation SUDHAKAR Y 02/28/24 Unknown History 62.5 mcg-vilant 25 mcg inhalat.powder (Trelegy Ellipta) prednisone 20 mg tablet 40 mg PO DAILY PRN sob 03/0203/02/24 History albuterol sulfate 90 mcg/actuation 1 inh inhalation Q6 H PRN shortness 12/01/24 Unknown History aerosol inhaler of breath or wheezing Allergy/AdvReac Type Severity Reaction Status Date / Time No Known Allergies Allergy Verified 12/01/24 06:21 Surgical History Hx of hernia repair History of replacement of both shoulder joints Social History Smoking Status: Former smoker ROS ROS ED Constitutional Constitutional ED: Denies chills or fever(s) Eyes Eyes: Denies blurry vision or change in vision ENT ENT ED: Denies rhinorrhea or sore throat Cardiovascular Cardiovascular: Denies chest pain Respiratory/Chest Respiratory/Chest: Reports cough, dyspnea and dyspnea on exertion Gastrointestinal Gastrointestinal: Denies abdominal pain, diarrhea, nausea or vomiting Genitourinary Genitourinary ED: Denies dysuria Musculoskeletal Musculoskeletal: Denies back pain or myalgias Integumentary Denies rash Neurologic Neurologic: Denies headache(s) Hematologic/Lymphatic Hematologic/Lymphatic: Denies easy bleeding or easy bruising Allergic/Immunologic Allergic/Immunologic ED: Denies mouth swelling or tongue swelling EXAM Physical Exam Const Vital Signs: 12/01/24 06:21 12/01/24 06:26 12/01/24 06:27 Temperature 97.8 F 97.8 F Temperature Source Oral Oral Pulse Rate 89 83 83 Respiratory Rate 22 H 27 H Respiratory Effort Respiratory Pattern Blood Pressure 192/91 H 192/91 H Blood Pressure Mean 124 124 Pulse Ox 78 98 97 Oxygen Delivery Method Room Air Nasal Cannula Nasal Cannula Oxygen Flow Rate (L/min) 2 2 12/01/24 06:32 12/01/24 06:59 12/01/24 06:59 Temperature Temperature Source Pulse Rate 75 Respiratory Rate 20 H Respiratory Effort Short of Breath Respiratory Pattern Tachypnea Normal Blood Pressure Blood Pressure Mean Pulse Ox 98 Oxygen Delivery Method Nasal Cannula Nasal Cannula Oxygen Flow Rate (L/min) 2 2 12/01/24 07:11 Temperature Temperature Source Pulse Rate Respiratory Rate Respiratory Effort Respiratory Pattern Blood Pressure Blood Pressure Mean Pulse Ox 99 Oxygen Delivery Method Room Air Oxygen Flow Rate (L/min) Positive well nourished and well developed General Appearance ED: well developed; Negative for pallor HEENT HEENT Narrative: No tongue or lip swelling no oral lesions no airway edema or compromise No secondary findings in the posterior pharynx to suggest infection Eyes PERRL and EOMs intact bilaterally General Eye ED: Negative for pale conjunctiva or scleral icterus Neck supple and no JVD Chest Wall palpation of chest normal Chest Narrative: No bony deformity or subcutaneous emphysema noted Resp Resp Narrative: Patient is tachypneic with mild accessory muscle use Breath sounds are severely diminished throughout with diffuse inspiratory and expiratory wheezing Cardio regular rate and regular rhythm Rate: other Other Details: Radial and carotid pulses are equal and symmetric GI normal to inspection, nondistended, normoactive bowel sounds, non-tender, non-distended and no masses Auscultation: normoactive bowel sounds Palpation: soft Extremity normal to inspection Extremity Narrative: No asymmetric edema no pitting edema negative Homans' sign bilaterally Neuro oriented x3, CN's II-XII intact bilaterally and no sensory deficits noted Sensorium / Orientation: alert Motor Exam: strength 5/5 throughout Psych mental status grossly normal Skin no rashes or lesions noted General Skin Exam: Negative for jaundice or pallor MDM MDM MDM Narrative Medical decision making narrative: Patient arrived to the ER hypertensive but has a past medical history of this. He also arrived in mild to moderate respiratory distress with tachypnea and accessory muscle use and his pulse ox on room air was 78%. He states that despite having a concentrator at home he does not typically need it and his pulse ox at baseline is mid 90s. With his report of cough and increased shortness of breath over the last 1 to 2 days there is concern for COPD exacerbation secondary to influenza versus RSV versus COVID versus potential pneumonia or congestive heart failure or pneumothorax. Patient also could have hypoxia from acute blood loss anemia or acute kidney injury or severe electrolyte abnormality. Basic blood work is obtained and shows leukocytosis at13 with left shift. The remainder of his labs revealed no clinically significant findings. Chest x-ray shows changes concerning for developing rightlower lobe pneumonia. The patient was given 125 mg of Solu-Medrol as well as 2 DuoNeb and 1 albuterol treatment based on his history and physical exam. After doing so he had significant improvement of his air movement and breath sounds did improve but they remained both inspiratory and expiratory wheezing diffusely. His room air pulse ox improved from 78% to 90. However he still hadincreased work of breathing when not on oxygen. Therefore he is placed on 1 to 2 L nasal cannula to help prevent hypoxia. At this time there is concern that his symptoms will worsen over the next few days as he is early in his disease process. I also have concern that his hypoxia will rebound/worsen once the medications wear off. Therefore I feel his safest option is admission to the hospital for continued IV steroids as well as nebulizer treatment and antibiotics. The case was discussed with the hospitalist who agrees to accept the patient at this time for continued care. This plan of care was discussed with the patient and and they are agreeable to it History & Record Review Discussion w/independent historian: Patient and Significant other Lab Data Attestation: I reviewed the patient's lab results. Labs: Laboratory Results - last 24 hr 12/01/24 06:35 WBC 13.3 H RBC 4.74 Hgb 13.7 Hct 41.4 MCV 87.3 MCH 28.9 MCHC 33.1 RDW Std Deviation 45.2 H RDW Coeff of Sherri 14.1 Plt Count 313 MPV 9.3 Immature Gran % (Auto) 0.600 Neut % (Auto) 91.1 H Lymph % (Auto) 3.0 L Coos % (Auto) 5.1 Eos % (Auto) 0.0 Baso % (Auto) 0.2 Absolute Neuts (auto) 12.1 H Absolute Lymphs (auto) 0.40 L Nucleated RBC % 0 Sodium 139 Potassium 4.2 Chloride 100 Carbon Dioxide 26.8 Anion Gap 12 BUN 17 Creatinine 0.93 Estim Creat Clear Calc 57.13 Est GFR (MDRD) Non-Af 87 BUN/Creatinine Ratio 18.4 Glucose 229 H Calcium 9.4 Magnesium 2.0 Radiography Diagnostic Testing: Clinical Impression(s) from Imaging Studies Chest X-Ray 12/01/24 07:22 IMPRESSION: Findings consistent with pulmonary emphysema/COPD. Patchy infiltrates at the right lower and left mid lung zones may represent confluent areas of scarring versus infectious process. Recommend follow-up until resolution. Reading Location: [id number] Chest x-ray as interpreted by the emergency medicine physician reveals patchy infiltrates in the right lower lung concerning for developing pneumonia Discharge Plan Triage Chief Complaint: Shortness of Breath ED Provider: Todd Valdovinos Dx/Rx/DC Orders Clinical Impression: Pneumonia, Hypertension, COPD exacerbation, Hypoxia Prescriptions: No Action Trelegy Ellipta 100-62.5-25 mcg blister with device 1 inh inhalation DAILY amlodipine 5 mg tablet 5 mg PO DAILY Patient Comments: Take 1 tablet by mouth once daily. albuterol sulfate [ProAir HFA] 90 mcg/actuation HFA aerosol inhaler 1 inh inhalation Q6H PRN (Reason: shortness of breath or wheezing) vitamin E 268 mg (400 unit) capsule 268 mg PO DAILY garlic 1,000 mg capsule 1,000 mg PO DAILY alprazolam [Xanax] 0.25 mg tablet 0.375 mg PO QHS Patient Comments: takes 1.5 tabs albuterol sulfate 2.5 mg /3 mL (0.083 %) solution for nebulization 2.5 mg inhalation Q4H PRN Qty: 25 0RF Rx Instructions: Use q4 hours and PRN for wheezing prednisone 20 mg tablet 40 mg PO DAILY PRN (Reason: sob) Primary Care Provider: Jr Ryan Referrals: Jr Ryan DO [Primary Care Provider] - Print Language: Belizean Disposition Disposition: [facility] What to do if you have Problems For any increased pain, shortness of breath, bleeding, nausea or vomiting, chestpain, or any unexpected problems, contact your Primary Care Provider. Call [facility] ([phone]) or report to the closest Emergency Room. Call 911 if necessary. 12/01/24 08 <Electronically signed by Todd Valdovinos DO> Cosigner Signature (if applicable): CC: Dr. Jr Ryan DO ~ Signed [facility] Work Phone: [phone] History and physical note [facility] Medical Records Department [address] [place] [id number] H&P Exam - Hospitalist 12/01/24830 MR#: [id number] Acct: [id number] Name: BEATRIS QUINN Rep #:[id number] : 1950 73 From: Anirudh Thompson DO PCP: Dr. Jr Ryan DO Status:REG ER Location: ED HPI - General General Date of Service: 12/01/24 Chief Complaint: shortness of breath. HPI Narrative BEATRIS QUINN, is a 73 M who presents w 1-2 days of SBO and cough. Productive sputum. presented to ED wpulse of 89% on room air. CXR showed pneumonia. He received BDs, methylpred and abx w CTX and azithromycin. Similar to prior episodes of COPD exacerbation. Also, he has been experiencing exertional left- sided chest pain since August, that gets better with rest. CP does not radiate. [facility] Medical History Aortic stenosis Elevated coronary artery calcium score Urinary retention Heart murmur Anxiety On home oxygen therapy Acute hypoxemic respiratory failure Pneumonia COPD (chronic obstructive pulmonary disease) [place] (hard of hearing) Hypertension Home Medications ?Medication ?Instructions ?Recorded ?Last Taken ?Type amlodipine 5 mg tablet 5 mg PO DAILY blood pressure 03/06/21 03/02/24 History albuterol sulfate 2.5 mg/3 mL 2.5 mg (3 mL) inhalation Q4H PRN 12/11/23 Unknown Rx (0.083 %) solution for nebulization #25 vials garlic 1,000 mg capsule 1,000 mg PO DAILY general he alth 12/17/23 Unknown History vitamin E 268 mg (400 unit) capsule 268 mg PO DAILY [facility] 12/17/23 Unknown History alprazolam 0.25 mg tablet (Xanax) 0.375 mg PO QHS anxi ety 02/28/24 Unknown History fluticasone fur. 100 mcg-umeclid 1 inh inhalation SUDHAKAR Y 02/28/24 Unknown History 62.5 mcg-vilant 25 mcg inhalat.powder (Trelegy Ellipta) prednisone 20 mg tablet 40 mg PO DAILY PRN sob 03/0203/02/24 History albuterol sulfate 90 mcg/actuation 1 inh inhalation Q6 H PRN shortness 12/01/24 Unknown History aerosol inhaler of breath or wheezing Allergy/AdvReac Type Severity Reaction Status Date / Time No Known Allergies Allergy Verified 12/01/24 06:21 Surgical History Hx of hernia repair History of replacement of both shoulder joints Social History Smoking Status: Former smoker ROS ROS Narrative All review of systems were negative except as mentioned above in the history of present illness andthe other review of systems. Vital Signs Vital Signs Vital Signs: 12/01/24 06:21 12/01/24 06:26 12/01/24 06:27 Temperature 36.6 C 36.6 C Temperature Source Oral Oral Pulse Rate 89 83 83 Respiratory Rate 22 H 27 H Respiratory Effort Respiratory Pattern Blood Pressure 192/91 H 192/91 H Blood Pressure Mean 124 124 Pulse Ox 78 98 97 Oxygen Delivery Method Room Air Nasal Cannula Nasal Cannula Oxygen Flow Rate (L/min) 2 2 12/01/24 06:32 12/01/24 06:59 12/01/24 06:59 Temperature Temperature Source Pulse Rate 75 Respiratory Rate 20 H Respiratory Effort Short of Breath Respiratory Pattern Tachypnea Normal Blood Pressure Blood Pressure Mean Pulse Ox 98 Oxygen Delivery Method Nasal Cannula Nasal Cannula Oxygen Flow Rate (L/min) 2 2 12/01/24 07:11 12/01/24 07:20 12/01/24 08:00 Temperature 37.2 C 37.2 C Temperature Source Oral Oral Pulse Rate 87 82 Respiratory Rate 19 H 16 Respiratory Effort Respiratory Pattern Blood Pressure 147/84 H 123/82 H Blood Pressure Mean 105 95 Pulse Ox 99 95 96 Oxygen Delivery Method Room Air Nasal Cannula Nasal Cannula Oxygen Flow Rate (L/min) 1 1 Weight Weight: 57.1 kg Body Mass Index (BMI) 20.2 Physical Exam Narrative - Physical Exam General: Alert, Oriented x3, Cooperative HEENT: Atraumatic, Normocephalic Oral: Moist Mucosa, No Gingival or Mucosal Lesions/ Ulcerations Neck: Supple, No JVD, Negative Carotid Bruits Lungs: Diminished breath coarse sounds bilaterally Cardiovascular: Regular rate, Normal S1, Normal S2, No murmurs Abdomen: Bowel Sounds Present, Soft, Non Tender, Non-Distended, No Hepato-splenomegaly Extremities: No clubbing, No cyanosis, No edema, Capillary Refill Less than 3 Seconds Skin: No rashes, No breakdown Musculoskeletal: No Tenderness to Palpation of Joints or Extremities. No reproducible anterior chest wall tenderness. Neurological: Neuro grossly intact Psych/Mental Status: Normal Affect, Appropriate Results Lab / Micro Data Attestation: I reviewed the patient's lab results. 12/01/24 06:35 12/01/24 06:35 Labs: Laboratory Results - last 24 hr 12/01/24 06:35: WBC 13.3 H, RBC 4.74, Hgb 13.7, Hct 41.4, MCV 87.3, MCH 28.9, MCHC 33.1, RDW Std Deviation 45.2 H, RDW Coeff of Sherri 14.1, Plt Count 313, MPV 9.3, Immature Gran % (Auto) 0.600, Neut % (Auto) 91.1 H, Lymph % (Auto) 3.0 L, Coos % (Auto) 5.1, Eos % (Auto) 0.0, Baso % (Auto) 0.2, Absolute Neuts (auto) 12.1 H, Absolute Lymphs (auto) 0.40 L, Nucleated RBC % 0, Sodium 139, Potassium 4.2, Chloride 100, Carbon Dioxide 26.8, Anion Gap 12, BUN 17, Creatinine 0.93, Estim Creat Clear Calc 57.13, Est GFR (MDRD) Non-Af 87, BUN/Creatinine Ratio 18.4, Glucose 229 H, Calcium 9.4, Magnesium 2.0 Micro: Microbiology 12/01/24 06:43 Mucosa - Nose SARS-CoV-2, Influenza & RSV (PCR) - Final Imaging Radiology Impression Chest X-Ray 12/01/24 07:22 IMPRESSION: Findings consistent with pulmonary emphysema/COPD. Patchy infiltrates at the right lower and left mid lung zones may represent confluent areas of scarring versus infectious process. Recommend follow-up until resolution. Reading Location: [id number] Assessment & Plan Assessment/Plan (1) COPD exacerbation: PLAN: Likely brought on by his pneumonia Continue with bronchodilators and methylprednisolone. Patient was hypoxic with a pulse ox around 89% on room air when he presented. Currently between 1 to 2 L/min. Wean oxygen as tolerated. (2) Pneumonia: PLAN: Suspect pneumococcal. Continue antibiotics with ceftriaxone azithromycin which are being initiated in the emergency room Check urinary antigens for strep and Legionella. Check sputum culture. Pulmonary toilet. (3) Stable angina: PLAN: Patient has been experiencing left-sided chest pain with exerting himself. He has had an prior cardiac workup thus far: * Cardiac cath in March 02, 2024 showed EF of 70%. Normal LV wall motion. 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 No dampening of present. Mild irregularities of the LAD, circumflex and RCA. * Echo from June 05, 2024 EF of 59% ?5%. Mild aortic stenosis. Plan is to start him on aspirin. Check fasting lipid panel and check nuclear stress test. Check stress test and troponin series. PLAN: Plan VTE prophylaxis with enoxaparin CODE STATUS: Addressed with the patient. Patient is full code. Case discussed with the patient's at bedside. She had been saying that hisheart was fine. I reviewed his prior records with she and the patient at bedside and explained the indications for thestress test including his chest pain, his cleft like lesion in his left main. Charges/Coding Visit Charges Inpatient E&M: 98511 Init Hosp L3 12/01/24 0847 Cosigner Signature (if applicable): CC: Dr. Anirudh Thompson DO; Dr. Jr Ryan DO~ Signed [facility]04-08-2025 Discharge summary [facility] Medical Records Department [address] [place] [address] Emergency Department Summary 12/01/24 MR#: [id number] Acct: [id number] Name: BEATRIS QUINN Rep #:[id number] : 1950 73 From: Todd Valdovinos DO PCP: Dr. Jr Ryan DO Status:REG ER Location: ED HPI History of Present Illness Chief Complaint: Shortness of Breath Informant: patient and spouse/S.O. Narrative Narrative: Patient is a 73-year-old male with history of hypertension and COPD. He states that he quit smokingroughly 20 years ago. He reports he has a oxygen concentrator at home but does not need to wear this as his pulse ox is typically mid 90s on room air. However in the last 1 to 2 days he has been having increased cough and shortness of breath. He states that it is worse with exertion. He denies any fevers or known sick contacts but with his shortness of breath persisting he has concern for potential infection and therefore comes in for evaluation. Patient does state the last time he felt this way he needed admitted secondary to pneumonia and influenza which was roughly 1 year ago [facility] Medical History Aortic stenosis Elevated coronary artery calcium score Urinary retention Heart murmur Anxiety On home oxygen therapy Acute hypoxemic respiratory failure Pneumonia COPD (chronic obstructive pulmonary disease) [place] (hard of hearing) Hypertension Home Medications ?Medication ?Instructions ?Recorded ?Last Taken ?Type amlodipine 5 mg tablet 5 mg PO DAILY blood pressure 03/06/21 03/02/24 History albuterol sulfate 2.5 mg/3 mL 2.5 mg (3 mL) inhalation Q4H PRN 12/11/23 Unknown Rx (0.083 %) solution for nebulization #25 vials garlic 1,000 mg capsule 1,000 mg PO DAILY general he alth 12/17/23 Unknown History vitamin E 268 mg (400 unit) capsule 268 mg PO DAILY [facility] 12/17/23 Unknown History alprazolam 0.25 mg tablet (Xanax) 0.375 mg PO QHS anxi ety 02/28/24 Unknown History fluticasone fur. 100 mcg-umeclid 1 inh inhalation SUDHAKAR Y 02/28/24 Unknown History 62.5 mcg-vilant 25 mcg inhalat.powder (Trelegy Ellipta) prednisone 20 mg tablet 40 mg PO DAILY PRN sob 03/0203/02/24 History albuterol sulfate 90 mcg/actuation 1 inh inhalation Q6 H PRN shortness 12/01/24 Unknown History aerosol inhaler of breath or wheezing Allergy/AdvReac Type Severity Reaction Status Date / Time No Known Allergies Allergy Verified 12/01/24 06:21 Surgical History Hx of hernia repair History of replacement of both shoulder joints Social History Smoking Status: Former smoker ROS ROS ED Constitutional Constitutional ED: Denies chills or fever(s) Eyes Eyes: Denies blurry vision or change in vision ENT ENT ED: Denies rhinorrhea or sore throat Cardiovascular Cardiovascular: Denies chest pain Respiratory/Chest Respiratory/Chest: Reports cough, dyspnea and dyspnea on exertion Gastrointestinal Gastrointestinal: Denies abdominal pain, diarrhea, nausea or vomiting Genitourinary Genitourinary ED: Denies dysuria Musculoskeletal Musculoskeletal: Denies back pain or myalgias Integumentary Denies rash Neurologic Neurologic: Denies headache(s) Hematologic/Lymphatic Hematologic/Lymphatic: Denies easy bleeding or easy bruising Allergic/Immunologic Allergic/Immunologic ED: Denies mouth swelling or tongue swelling EXAM Physical Exam Const Vital Signs: 12/01/24 06:21 12/01/24 06:26 12/01/24 06:27 Temperature 97.8 F 97.8 F Temperature Source Oral Oral Pulse Rate 89 83 83 Respiratory Rate 22 H 27 H Respiratory Effort Respiratory Pattern Blood Pressure 192/91 H 192/91 H Blood Pressure Mean 124 124 Pulse Ox 78 98 97 Oxygen Delivery Method Room Air Nasal Cannula Nasal Cannula Oxygen Flow Rate (L/min) 2 2 12/01/24 06:32 12/01/24 06:59 12/01/24 06:59 Temperature Temperature Source Pulse Rate 75 Respiratory Rate 20 H Respiratory Effort Short of Breath Respiratory Pattern Tachypnea Normal Blood Pressure Blood Pressure Mean Pulse Ox 98 Oxygen Delivery Method Nasal Cannula Nasal Cannula Oxygen Flow Rate (L/min) 2 2 12/01/24 07:11 Temperature Temperature Source Pulse Rate Respiratory Rate Respiratory Effort Respiratory Pattern Blood Pressure Blood Pressure Mean Pulse Ox 99 Oxygen Delivery Method Room Air Oxygen Flow Rate (L/min) Positive well nourished and well developed General Appearance ED: well developed; Negative for pallor HEENT HEENT Narrative: No tongue or lip swelling no oral lesions no airway edema or compromise No secondary findings in the posterior pharynx to suggest infection Eyes PERRL and EOMs intact bilaterally General Eye ED: Negative for pale conjunctiva or scleral icterus Neck supple and no JVD Chest Wall palpation of chest normal Chest Narrative: No bony deformity or subcutaneous emphysema noted Resp Resp Narrative: Patient is tachypneic with mild accessory muscle use Breath sounds are severely diminished throughout with diffuse inspiratory and expiratory wheezing Cardio regular rate and regular rhythm Rate: other Other Details: Radial and carotid pulses are equal and symmetric GI normal to inspection, nondistended, normoactive bowel sounds, non-tender, non- distended and no masses Auscultation: normoactive bowel sounds Palpation: soft Extremity normal to inspection Extremity Narrative: No asymmetric edema no pitting edema negative Homans' sign bilaterally Neuro oriented x3, CN's II-XII intact bilaterally and no sensory deficits noted Sensorium / Orientation: alert Motor Exam: strength 5/5 throughout Psych mental status grossly normal Skin no rashes or lesions noted General Skin Exam: Negative for jaundice or pallor MDM MDM MDM Narrative Medical decision making narrative: Patient arrived to the ER hypertensive but has a past medical history of this. He also arrived in mild to moderate respiratory distress with tachypnea and accessory muscle use and his pulse ox on room air was 78%. He states that despite having a concentrator at home he does not typically need it and his pulse ox at baseline is mid 90s. With his report of cough and increased shortness of breath over the last 1 to 2 days there is concern for COPD exacerbation secondary to influenza versus RSV versus COVID versus potential pneumonia or congestive heart failure or pneumothorax. Patient also couldhave hypoxia from acute blood loss anemia or acute kidney injury or severe electrolyte abnormality.Basic blood work is obtained and shows leukocytosis at13 with left shift. The remainder of his labsrevealed no clinically significant findings. Chest x-ray shows changes concerning for developing rightlower lobe pneumonia. The patient was given 125 mg of Solu-Medrol as well as 2 DuoNeb and 1 albuterol treatment based on his history and physical exam. After doing so he had significant improvementof his air movement and breath sounds did improve but they remained both inspiratory and expiratorywheezing diffusely. His room air pulse ox improved from 78% to 90. However he still hadincreased work of breathing when not on oxygen. Therefore he is placed on 1 to 2 L nasal cannula to help preventhypoxia. At this time there is concern that his symptoms will worsen over the next few days as he is early in his disease process. I also have concern that his hypoxia will rebound/worsen once the medications wear off. Therefore I feel his safest option is admission to the hospital for continued IV steroids as well as nebulizer treatment and antibiotics. The case was discussed with the hospitalist who agrees to accept the patient at this time for continued care. This plan of care was discussed with the patient and and they are agreeable to it History & Record Review Discussion w/independent historian: Patient and Significant other Lab Data Attestation: I reviewed the patient's lab results. Labs: Laboratory Results - last 24 hr 12/01/24 06:35 WBC 13.3 H RBC 4.74 Hgb 13.7 Hct 41.4 MCV 87.3 MCH 28.9 MCHC 33.1 RDW Std Deviation 45.2 H RDW Coeff of Sherri 14.1 Plt Count 313 MPV 9.3 Immature Gran % (Auto) 0.600 Neut % (Auto) 91.1 H Lymph % (Auto) 3.0 L Coos % (Auto) 5.1 Eos % (Auto) 0.0 Baso % (Auto) 0.2 Absolute Neuts (auto) 12.1 H Absolute Lymphs (auto) 0.40 L Nucleated RBC % 0 Sodium 139 Potassium 4.2 Chloride 100 Carbon Dioxide 26.8 Anion Gap 12 BUN 17 Creatinine 0.93 Estim Creat Clear Calc 57.13 Est GFR (MDRD) Non-Af 87 BUN/Creatinine Ratio 18.4 Glucose 229 H Calcium 9.4 Magnesium 2.0 Radiography Diagnostic Testing: Clinical Impression(s) from Imaging Studies Chest X-Ray 12/01/24 07:22 IMPRESSION: Findings consistent with pulmonary emphysema/COPD. Patchy infiltrates at the right lower and left mid lung zones may represent confluent areas of scarring versus infectious process. Recommend follow-up until resolution. Reading Location: [facility] Chest x-ray as interpreted by the emergency medicine physician reveals patchy infiltrates in the right lower lung concerning for developing pneumonia Discharge Plan Triage Chief Complaint: Shortness of Breath ED Provider: Todd Valdovinos Dx/Rx/DC Orders Clinical Impression: Pneumonia, Hypertension, COPD exacerbation, Hypoxia Prescriptions: No Action Trelegy Ellipta 100-62.5-25 mcg blister with device 1 inh inhalation DAILY amlodipine 5 mg tablet 5 mg PO DAILY Patient Comments: Take 1 tablet by mouth once daily. albuterol sulfate [ProAir HFA] 90 mcg/actuation HFA aerosol inhaler 1 inh inhalation Q6H PRN (Reason: shortness of breath or wheezing) vitamin E 268 mg (400 unit) capsule 268 mg PO DAILY garlic 1,000 mg capsule 1,000 mg PO DAILY alprazolam [Xanax] 0.25 mg tablet 0.375 mg PO QHS Patient Comments: takes 1.5 tabs albuterol sulfate 2.5 mg /3 mL (0.083 %) solution for nebulization 2.5 mg inhalation Q4H PRN Qty: 25 0RF Rx Instructions: Use q4 hours and PRN for wheezing prednisone 20 mg tablet 40 mg PO DAILY PRN (Reason: sob) Primary Care Provider: Jr Ryan Referrals: Jr Ryan DO [Primary Care Provider] - Print Language: [place]an Disposition Disposition: Acute Care Hospital [facility] What to do if you have Problems For any increased pain, shortness of breath, bleeding, nausea or vomiting, chestpain, or any unexpected problems, contact your Primary Care Provider. Call [facility] ([phone]) or report tothe closest Emergency Room. Call 911 if necessary. 12/01/24 0800 Cosigner Signature (if applicable): CC: Dr. Jr Ryan DO ~ Signed [facility]04-08-2025 Radiology Diagnostic study note [facility] Imaging Services [address] [place] [address] Chest PA and Lateral MR#: [id number] Acct: [id number] Name: BEATRIS QUINN Rep #: [id number] : 1950 M 73 From: Eloy Parra MD PCP: Dr. Jr Ryan DO Status: REG ER Study:Chest PA and Lateral Date of Exam: 12/01/24 Exam# [id number] Ordering Dr: Aziza Valdovinos DO PROCEDURE: CHEST PA AND LATERAL 12/01/2024 REASON FOR EXAM: COUGH TECHNIQUE: Frontal and lateral views of the chest. COMPARISON: None. FINDINGS: The lungs are hyperlucent and hyperexpanded due to COPD type changes. There arepatchy infiltrates seen within the right lower lung zone and left midlung zone. This may represent areas of focal scarring versus infectious process. Follow-up until resolution is recommended. No pneumothorax identified. No acutely displaced rib fracture identified. RAD/Chest PA and Lateral IMPRESSION: Findings consistent with pulmonary emphysema/COPD. Patchy infiltrates at the right lower and left mid lung zones may represent confluent areas of scarring versus infectious process. Recommend follow-up until resolution. Reading Location: [id number] CC: Dr. Jr Ryan DO; Todd Valdovinos DO ~ Seat Cover Cutter: Signed [facility]03-03-2025 Telephone encounter Note* Telephone Encounter - Tyrell FaustinoCandelaria Parvin - 10/26/2024 4:21 PM EST Patient's called pulmonary asking for assistance in delivering a message to Dr. Restrepo's office since they have been unable to contact and speak with the office. Per caller: Patient is not interested in following up with infectious disease. Patient can be reached by calling [phone]. [facility]03-03-2025 Miscellaneous Notes* Telephone Encounter - Candelaria Singh - 10/26/2024 4:21 PM EST Patient's called pulmonary asking for assistance in delivering a message to Dr. Restrepo's office since they have been unable to contact and speak with the office. Per caller: Patient is not interested in following up with infectious disease. Patient can be reached by calling [phone]. documented in this encounter[facility] Telephone encounter Note * Telephone Encounter - Tigre Restrepo MD - 10/19/2024 4:17 PM EST Please inform the patient that the infectious disease specialist agrees on following up with a ct chest in 6 months. She recommended to start the medication I gave him (voriconazole) but if the patinet would like to hold off, that should be ok and we can see if the ct chest shows any worsening. She recommended to have an ID consultation once the next ct chest is done in 6 months Thank you [facility]02-24-2025 Miscellaneous Notes* Telephone Encounter - Tigre Restrepo MD - 10/19/2024 4:17 PM EST Please inform the patient that the infectious disease specialist agrees on following up with a ct chest in 6 months. She recommended to start the medication I gave him (voriconazole) but if the patinet would like to hold off, that should be ok and we can see if the ct chest shows any worsening. She recommended to have an ID consultation once the next ct chest is done in 6 months Thank you documented in this encounterMet[facility]02-21-2025 NoteHNO ID: [id number] Author: TAMELA ANDERSON MD Service: ? Author Type: Physician Type: Progress Notes Filed: 10/16/2024 18:02 Note Text: Infectious Disease E-Consult Response In response to your eConsult Infectious Disease request for Beatris Quinn regarding: aspergillosis. History of present illness provided through requesting provider documentation and current treatment plan was reviewed. 02/06/2024: CT Lymphadenopathy up to 14 mm Multiple nodules, some are calcified, others have neoplastic appearance, largest [id number] lateral segment RML. Cavitary type lesion EDWIN [id number] 03/15/25- Dr. Restrepo pulm OPD consult 04/21/24- PET - Numerous metabolically active bilateral lung nodules * Dominant 2.9 cm left upper lobe nodule with resolved cavitary component. Differential includes infectious/inflammatory and malignant etiologies 05/15/24- CT -Compared to 03/27/2024 exam, most of the prior visualized opacities appear similar in size, except for new peripheral consolidative opacities in the right lower lobe. It should be noted that the dominant lesions in the left upper and middle lobes has diminished in size compared to 02/06/2024 exam (as described), including left lower lobe superior segment consolidative opacity. 05/25/24-Broch EDWIN nodule FNA path GMS is positive for fungal microorganismsmorphology favors Aspergillus ..AFB is negative for acid fast microorganisms. Fungal cx ng , but universal PCR aspergillus fumigat. Also, + rhinovirusand pseudomonas - hx treated. 10/16/2024- pulm Dr. Restrepo follow up. Feels ~ same? CT not visible to me currently and report pending, but stable per her note. - Dr. Restrepo ordered voriconazole today 10/16. But :Patient concerned about potential side effects from the voriconazole and would like to wait and think about it before starting the medication He would also like to have another CT scan ch to be done in the future to follow-up on the nodules. Based on the patient history provided, my impression is as follows: -Overall concur with your plans and voriconazole prescription. I see from your note and econsult that patient is hesitant and would like to think about it and have another CT scan. Sounds like he has heard your recommendations, but choosing this for now. Some reassurance that clinically and scans appear ~ stable since 01/2024 Specialist appointment needs: I see that you have already placed formal ID consult. Perhaps some time to consider +/- follow up ct will help him. Agree Keep existing, non-urgent appointment / consult [facility]ela Anderson MD [facility] History of Present illness Narrative* Tamela Anderson MD - 10/16/2024 5:42 PM EST Infectious Disease E-Consult Response In response to your eConsult Infectious Disease request for Beatris Quinn regarding: aspergillosis. History of present illness provided through requesting provider documentation and current treatment plan was reviewed. 02/06/2024: CT Lymphadenopathy up to 14 mm Multiple nodules, some are calcified, others have neoplastic appearance, largest [id number] lateral segment RML. Cavitary type lesion EDWIN [id number] 03/15/25- Dr. Restrepo pulm OPD consult 04/21/24- PET - Numerous metabolically active bilateral lung nodules * Dominant 2.9 cm left upper lobe nodule with resolved cavitary component. Differential includes infectious/inflammatory and malignant etiologies 05/15/24- CT -Compared to 03/27/2024 exam, most of the prior visualized opacities appear similar in size, except for new peripheral consolidative opacities in the right lower lobe. It should be noted that the dominant lesions in the left upper and middle lobes has diminished in size compared to 02/06/2024 exam (as described), including left lower lobe superior segment consolidative opacity. 05/25/24-Broch EDWIN nodule FNA path GMS is positive for fungal microorganismsmorphology favors Aspergillus ..AFB is negative for acid fast microorganisms. Fungal cx ng , but universal PCR aspergillus fumigat. Also, + rhinovirusand pseudomonas - hx treated. 10/16/2024- pulm Dr. Restrepo follow up. Feels ~ same CT not visible to me currently and report pending, but stable per her note. - Dr. Restrepo ordered voriconazole today 10/16. But :Patient concerned about potential side effects from the voriconazole and would like to wait and think about it before starting the medication He would also like to have another CT scan ch to be done in the future to follow-up on the nodules. Based on the patient history provided, my impression is as follows: -Overall concur with your plans and voriconazole prescription. I see from your note and econsult that patient is hesitant and would like to think about it and have another CT scan. Sounds like he hasheard your recommendations, but choosing this for now. Some reassurance that clinically and scans appear ~ stable since 01/2024 Specialist appointment needs: I see that you have already placed formal ID consult. Perhaps some time to consider +/- follow up ct will help him. Agree Keep existing, non-urgent appointment / consult Tamela Anderson MD October 16, 2024 documented in this encounterMet[facility]02-21-2025 Note* Addendum Note - Tigre Restrepo MD - 10/16/2024 3:14 PM ESTAddended by: TIGRE RESTREPO on: 10/16/2024 03:14 PM Modules accepted: Orders [facility]02-21-2025 Miscellaneous Notes* Addendum Note - Tigre Restrepo MD - 10/16/2024 3:14 PM ESTAddended by: TIGRE RESTREPO on: 10/16/2024 03:14 PM Modules accepted: Orders documented in this encounterMet[facility]02-21-2025 NoteHNO ID: [id number] Author: TIGRE RESTREPO MD Service: ? Author Type: Physician Type: Progress Notes Filed: 10/16/2024 10:44 Note Text: [facility] ESTABLISHED PATIENT OFFICE VISIT 10/16/2024 Patient Name: Beatris Quinn PRIMARY CARE PHYSICIAN: Jr Ryan DO CHIEF COMPLAINT: lung nodules, COPD/asthma, allergies, mild CAD, aortic stenosis HISTORY OF PRESENT ILLNESS: Since the last visit with me on 02/2024, Mr. Quinn has been doing about the same. He continues to feel short of breath on exertion with cough. Underwent bronchoscopy April 2024 with sampling of the left upper lobe lung mass Cytology negative for malignancy Fungal organisms present in a background of acute inflammation and necrosis morphology favors Aspergillus over Pseudallescheria or Fusarium BAL culture right upper lobe and left upper lobe did grow Pseudomonas Patient was treated with antibiotics Patient followed up today with a CT scan chest that is pending official report showed stable lung opacities Works in [employer] From [employer] [employer] Social History Tobacco Use Smoking status: Former Current packs/day: 0.00 Average packs/day: 0.5 packs/day for 36.0 years (18.0 ttl pk-yrs) Types: Cigarettes Start date: 10/24/1969 Quit date: 10/24/2005 Years since quittin.9 Smokeless tobacco: Never Substance Use Topics Alcohol use: Yes Drug use: No ALLERGIES ALLERGIES Allergen Reactions Lisinopril Cough Maxzide [Triamteren* Intolerance leg cramp, sex desire decrease Naproxen GI Upset CURRENT OUTPATIENT MEDICATIONS OTC NUTRITIONAL SUPPLEMENT Factor 5 for joints ALPRAZolam (XANAX) 0.25 mg tablet Take by mouth at bedtime as needed. womeuzwjtwp-vdbyrmaqi-uubbngvi (TRELEGY ELLIPTA) 100-62.5-25 mcg inhalation powder Inhale 1 Puff as instructed once daily. MAGNESIUM ORAL Take by mouth. VITAMIN E ORAL Take by mouth. predniSONE EC 5 mg Delayed Release Tab Take 5 mg by mouth. taking 1/2 tablet daily GARLIC ORAL Take by mouth. albuterol HFA (PROAIR HFA) 90 mcg/actuation inhaler 2 puff(s), Inhalation, q4h, PRN as needed for wheezing amLODIPine (NORVASC) 5 mg tablet Take 1 tablet by mouth once daily. omeprazole (PRILOSEC) 20 mg capsule Take 1 capsule by mouth daily before breakfast. 1/2 hr before meal. Herbal Drugs cap Take 1 capsule by mouth once daily. gabapentin (NEURONTIN) 100 mg capsule Take 1 capsule by mouth three times daily for 30 days. fluticasone-vilanterol (BREO ELLIPTA) 200-25 mcg/dose inhaler Inhale 1 Inhalation as instructed once daily. Pt states only using 125mcg now REVIEW OF SYSTEMS Review of Systems Constitutional: Negative for chills, fever and weight loss. Respiratory: Positive for cough and shortness of breath. Negative for hemoptysis, sputum production and wheezing. Cardiovascular: Negative for leg swelling. The remainder of review of systems was negative. PHYSICAL EXAMINATION: BP 153/76 Pulse 79 Ht 5' 4 (1.63m) Wt 130 lb 15.3 oz (59.4kg) SpO2 94% BMI 22.47 kg/(m2). General appearance: Well appearing, alert, in no acute distress, well-hydrated, well nourished. DATA: Diagnostic tests reviewed and analysed for today's visit, including films and specimens, were personally reviewed by me Most recent labs and imaging results. XR CHEST 2V FRONTAL/LAT Result Date: 03/24/2024 IMPRESSION: 1. Nodular opacities in each lung have been thought to most likely be due to infectious etiology.. Neoplasm is not completely excluded. 2. Prominence of lung markings throughout each lung could represent some edema or infiltrate. Although this may be just differences in technique due to different penetrations the films. Seat Cover Cutter: NESTOR Transcribe Date/Time: Mar 24 2024 1:44P Dictated by : JANINE HILLIARD DO This examination was interpreted and the report reviewed and electronically signed by: JANINE HILLIARD DO on Mar 24 2024 2:21PM EST XR CHEST 1V FRONTAL PORT Result Date: 03/11/2024 IMPRESSION: Findings which are likely infectious/inflammatory in the left greater than right lungs as described. More focal rounded opacity in the left midlung is new since 12/15/2023, likely also infectious in etiology although interval follow-up is recommended to document resolution. ACTIONABLE RESULT: FOLLOW-UP Acuity: Actionable Findings: Thoracic-Lung nodules Routing code: RI_1 Recommendation: XR Chest 2 view Time Frame: 4-6 weeks COMMUNICATION: Results will be communicated with the ordering provider via [employer] staff message or phone message by [facility] within 2 business days of report finalization. --END OF FINDING-- Seat Cover Cutter: NESTOR Transcribe Date/Time: Mar 11 2024 8:08A Dictated by : NICOLAS BAJWA MD This examination was interpreted and the report reviewed and electronically signed by: NICOLAS BAJWA MD on Mar 11 2024 8:17AM EST XR CHEST 2V FRONTAL/LAT Result Date: 12/15/2023 IMPRE (more content not included)...[facility]02-21-2025 History of Present illness Narrative* Tigre Restrepo MD - 10/16/2024 9:06 AM EST Images from the original note were not included. [facility] ESTABLISHED PATIENT OFFICE VISIT 10/16/2024 Patient Name: Beatris Quinn PRIMARY CARE PHYSICIAN: Jr Ryan DO CHIEF COMPLAINT: lung nodules, COPD/asthma, allergies, mild CAD, aortic stenosis HISTORY OF PRESENT ILLNESS: Since the last visit with me on 02/2024, Mr. Quinn has been doing about the same. He continues to feel short of breath on exertion with cough. Underwent bronchoscopy April 2024 with sampling of the left upper lobe lung mass Cytology negative for malignancy Fungal organisms present in a background of acute inflammation and necrosis morphology favors Aspergillus over Pseudallescheria or Fusarium BAL culture right upper lobe and left upper lobe did grow Pseudomonas Patient was treated with antibiotics Patient followed up today with a CT scan chest that is pending official report showed stable lung opacities Works in [employer] From [employer] Social History Tobacco Use Smoking status: Former Current packs/day: 0.00 Average packs/day: 0.5 packs/day for 36.0 years (18.0 ttl pk-yrs) Types: Cigarettes Start date: 10/24/1969 Quit date: 10/24/2005 Years since quittin.9 Smokeless tobacco: Never Substance Use Topics Alcohol use: Yes Drug use: No ALLERGIES ALLERGIES Allergen Reactions Lisinopril Cough Maxzide [Triamteren* Intolerance leg cramp, sex desire decrease Naproxen GI Upset CURRENT OUTPATIENT MEDICATIONS OTC NUTRITIONAL SUPPLEMENT Factor 5 for joints ALPRAZolam (XANAX) 0.25 mg tablet Take by mouth at bedtime as needed. mrihnkocgxm-pzbzdwurs-uqltvhap (TRELEGY ELLIPTA) 100-62.5-25 mcg inhalation powder Inhale 1 Puff asinstructed once daily. MAGNESIUM ORAL Take by mouth. VITAMIN E ORAL Take by mouth. predniSONE EC 5 mg Delayed Release Tab Take 5 mg by mouth. taking 1/2 tablet daily GARLIC ORAL Take by mouth. albuterol HFA (PROAIR HFA) 90 mcg/actuation inhaler 2 puff(s), Inhalation, q4h, PRN as needed for wheezing amLODIPine (NORVASC) 5 mg tablet Take 1 tablet by mouth once daily. omeprazole (PRILOSEC) 20 mg capsule Take 1 capsule by mouth daily before breakfast. 1/2 hr before meal. Herbal Drugs cap Take 1 capsule by mouth once daily. gabapentin (NEURONTIN) 100 mg capsule Take 1 capsule by mouth three times daily for 30 days. fluticasone-vilanterol (BREO ELLIPTA) 200-25 mcg/dose inhaler Inhale 1 Inhalation as instructed once daily. Pt states only using 125mcg now REVIEW OF SYSTEMS Review of Systems Constitutional: Negative for chills, fever and weight loss. Respiratory: Positive for cough and shortness of breath. Negative for hemoptysis, sputum productionand wheezing. Cardiovascular: Negative for leg swelling. The remainder of review of systems was negative. PHYSICAL EXAMINATION: BP 153/76 Pulse 79 Ht 5' 4 (1.63m) Wt 130 lb 15.3 oz (59.4kg) SpO2 94% BMI 22.47 kg/(m^2). General appearance: Well appearing, alert, in no acute distress, well-hydrated, well nourished. DATA: Diagnostic tests reviewed and analysed for today's visit, including films and specimens, were personally reviewed by me Most recent labs and imaging results. XR CHEST 2V FRONTAL/LAT Result Date: 03/24/2024 IMPRESSION: 1. Nodular opacities in each lung have been thought to most likely be due to infectiousetiology.. Neoplasm is not completely excluded. 2. Prominence of lung markings throughout each lungcould represent some edema or infiltrate. Although this may be just differences in technique due todifferent penetrations the films. Seat Cover Cutter: PSCB Transcribe Date/Time: Mar 24 2024 1:44P Dictated by : JANINE HILLIARD DO This examination was interpreted and the report reviewed and electronically signed by: JANINE HILLIARD DO on Mar 24 2024 2:21PM EST XR CHEST 1V FRONTAL PORT Result Date: 03/11/2024 IMPRESSION: Findings which are likely infectious/inflammatory in the left greater than right lungs as described. More focal rounded opacity in the left midlung is new since 12/15/2023, likely also infectious in etiology although interval follow-up is recommended to document resolution. ACTIONABLE RESULT: FOLLOW-UP Acuity: Actionable Findings: Thoracic-Lung nodules Routing code: [email or web address] Recommendation: XR Chest 2 view Time Frame: 4-6 weeks COMMUNICATION: Results will be communicated with the ordering provider via [employer] staff message or phone message by [facility] within 2 business days of report finalization. --END OF FINDING-- Seat Cover Cutter: PSCB Transcribe Date/Time: Mar 11 2024 8:08A Dictated by : NICOLAS BAJWA MD This examination was interpreted and the report reviewed and electronically signed by: NICOLAS BAJWA MD on Mar 11 2024 8:17AM EST XR CHEST 2V FRONTAL/LAT Result Date: 12/15/2023 IMPRESSION: No acute radiographic abnormality. Seat Cover Cutter: [facility] Transcribe Date/Time: Dec 15 2023 1:22A Dictated by : PAT FINN MD This examination was interpreted and the report reviewed and electronically signed by: PAT FINN MD on Dec 15 2023 1:24AM EST CT CHEST WO IVCON Result Date: 05/15/2024 IMPRESSION: 1. Compared to 03/27/2024 exam, most of the prior visualized opacities appear similar in size, except for new peripheral consolidative opacities in the right lower lobe. It should be noted that the dominant lesions in the left upper and middle lobes has diminished in size compared to 02/06/2024 exam (as described), including left lower lobe superior segment consolidative opacity. Therefore, in the light of multiple nodules, and airway inflammatory changes, the dominant lesions are felt to be in infectious/inflammatory (granulomatous-fungal or mycobacterial [nontuberculous?]). 2. Fairly severe emphysema. Multiple mucous plugs. Bronchiectatic changes, possibly associated with aspiration. 3. No enlarging lymph nodes. Seat Cover Cutter: [facility] Transcribe Date/Time: May 15 2024 4:44P Dictated by : ALIREZA FREDERICK MD This examination was interpreted and the report reviewed and electronically signed by: ALIREZA FREDERICK MD on May 15 2024 4:59PM EST Immunizations: Unknown IMPRESSION: 1. Lung nodules - ICD9: 793.19, ICD10: R91.8 (primary diagnosis) Ct chest 02/06/2024: Lymphadenopathy up to 14 mm Multiple nodules, some are calcified, others have neoplastic appearance, largest [id number] lateral segment RML. Cavitary type lesion EDWIN [id number] Multiple large opacities, one of them is cavitated Course of antibiotic completed PET scan 03/2024 * Numerous metabolically active bilateral lung nodules are similar to 03/27/2024. * Dominant 2.9 cm left upper lobe nodule with resolved cavitary component. Ct chest 04/2024 Compared to 03/27/2024 exam, most of the prior visualized opacities appear similar in size, except for new peripheral consolidative opacities in the right lower lobe. It should be noted that the dominant lesions in the left upper and middle lobes has diminished in size compared to 02/06/2024 exam (as described), including left lower lobe superior segment consolidative opacity. Therefore, in the light of multiple nodules, and airway inflammatory changes, the dominant lesions are felt to be in infectious/inflammatory (granulomatous- fungal or mycobacterial [nontuberculous?]). Fairly severe emphysema. Multiple mucous plugs. Bronchiectatic changes, possibly associated with aspiration. Ct chest October 16, 2024 Stable nodule on my personal reading pending official report Discussed with the patient starting an antifungal treatment and referral to infectious disease specialty Patient concerned about potential side effects from the voriconazole and would like to wait and think about it before starting the medication He would also like to have another CT scan ch to be done in the future to follow-up on the nodules I will e consult ID meanwhile and get an opinion Repeat ct chest in 6 months 2. Centrilobular emphysema (HCC) - ICD9: 492.8, ICD10: J43.2 Very severe Continue Trelegy Albuterol as needed hfa/nebulizer - [id number] 3. Chest pain on breathing - ICD9: 786.52, ICD10: R07.1 R/o PE Trip by bus to [place] 01/2024 4. Cavitary lesion of lung - ICD9: 518.89, ICD10: J98.4 Serum aspergillus galactomannan and coccidio mildly above normal Will consult ID 5. Allergy to environmental factors - ICD9: V15.09, ICD10: Z91.09 Possible asthma on top of copd 6. Ex-smoker - ICD9: V15.82, ICD10: Z87.891 Quit 15 yrs ago Tigre Restrepo MD, MATT Staff, [facility] [place] [facility] documented in this encounterMet[facility]health [facility]02-21[facility]2025 History of Present illness Narrative* Alina Good RT(R) - 10/16/2024 7:00 AM EST Radiology Service Progress Note PATIENT NAME: Beatris Quinn DATE OF SERVICE: October 16, 2024 TIME: 7:09 AM PATIENT IDENTITY VERIFICATION COMPLETED USING TWO (2) IDENTIFIERS: Name and Date of confirmedby patient verbally and Name and Date of confirmed by identification band. FALL SCREENING: Has the patient had 2 falls in the last year or 1 fall with injury or currently using an Ambulatory Assistive Device (Walker, Cane, Wheelchair, Crutches, etc.)? No PATIENT GENDER DATA: Assigned male at PATIENT RELEVANT IMPLANT DATA REVIEWED: Yes PATIENT PRESENTS WITH AN IMPLANTABLE OR ATTACHED MECHANICAL PROCESS ENGINEER: No RADIOLOGY DEPARTMENT: CT; Exam(s) Completed: Chest PERIPHERAL IV DATA: Not applicable SIGNED BY: RT Noah(Jennifer) October 16, 2024 7:09 AM documented in this encounterMetrohealth [facility]02-21-2025 NoteHNO ID: [id number] Author: ALINA GOOD RT(R) Service: Radiology Author Type: Technologist Type: Progress Notes Filed: 10/16/2024 07:09 Note Text: Radiology Service Progress Note PATIENT NAME: Beatris Quinn DATE OF SERVICE: October 16, 2024 TIME: 7:09 AM PATIENT IDENTITY VERIFICATION COMPLETED USING TWO (2) IDENTIFIERS: Name and Date of confirmed by patient verbally and Name and Date of confirmed by identification band. FALL SCREENING: Has the patient had 2 falls in the last year or 1 fall with injury or currently using an Ambulatory Assistive Device (Walker, Cane, Wheelchair, Crutches, etc.)? No PATIENT GENDER DATA: Assigned male at PATIENT RELEVANT IMPLANT DATA REVIEWED: Yes PATIENT PRESENTS WITH AN IMPLANTABLE OR ATTACHED MECHANICAL PROCESS ENGINEER: No RADIOLOGY DEPARTMENT: CT; Exam(s) Completed: Chest PERIPHERAL IV DATA: Not applicable SIGNED BY: RT Noah(R) October 16, 2024 7:09 AMThe [facility] Hospital At [id number] Telephone encounter Note* Telephone Encounter - Veronica Sherman - 10/09/2024 11:58 AM EST First attempt at contacting patient, uzair VM to schedule [facility]02-14-2025 Miscellaneous Notes* Telephone Encounter - Veronica Sherman - 10/09/2024 11:58 AM EST First attempt at contacting patientuzair to schedule * Telephone Encounter - Tigre Restrepo MD - 10/09/2024 10:38 AM EST Please schedule him for a ct chest prior to his next appointment - if needed you can move the appointment until the ct chest is done. He does not need a cxr just a ct chest * Telephone Encounter - Candelaria Singh - 10/09/2024 10:11 AM EST Patient called COPD coordinator asking to message Dr. Restrepo requesting to add on testing at his next office visit on 10/16 in [place]. Patient states he will arrive one hour early for X-ray, CT scan or other testing. Patient has been calling the appointment line but has been on hold for too long. Please reach out to patient and confirm testing will be scheduled and advise of arrival time. Patient phone: [phone]. documented in this encounterMet[facility]02-14-[facility]25 Telephone encounter Note * Telephone Encounter - Tigre Restrepo MD - 10/09/2024 10:38 AM EST Please schedule him for a ct chest prior to his next appointment - if needed you can move the appointment until the ct chest is done. He does not need a cxr just a ct chest [facility] Work Phone: [phone] Telephone encounter Note* Telephone Encounter - Candelaria Singh - 10/09/2024 10:11 AM EST Patient called COPD coordinator asking to message Dr. Restrepo requesting to add on testing at his next office visit on 10/16 in [place]. Patient states he will arrive one hour early for X-ray, CT scan or other testing. Patient has been calling the appointment line but has been on hold for too long. Please reach out to patient and confirm testing will be scheduled and advise of arrival time. Patient phone: [phone]. [facility]11-06-2024 Telephone encounter Note* Telephone Encounter - Kacey Che LPN - 07/01/2024 3:59 PM EST Attempted to call pt, no answer but message was left on for him to return our call. When Pt calls, please see message below from Dr. Restrepo. [facility]11-06-2024 Miscellaneous Notes* Telephone Encounter - Kacey Che LPN - 07/01/2024 3:59 PM EST Attempted to call pt, no answer but message was left on vm for him to return our call. When Pt calls, please see message below from Dr. Restrepo. * Telephone Encounter - Tigre Restrepo MD - 07/01/2024 3:38 PM EST Please check if he has seen the infectious disease specialist. Nothing in Epic. Thanks documented in this encounterMet[facility]11-06-2024 Telephone encounter Note * Telephone Encounter - Tigre Restrepo MD - 07/01/2024 3:38 PM EST Please check if he has seen the infectious disease specialist. Nothing in Epic. Thanks [facility] Work Phone: [phone] Telephone encounter Note* Telephone Encounter - Caio Patel RN - 06/09/2024 4:50 PM EDT Called pt left VM with results via phone. Sent ECHO results via mail. [facility]10[facility] Miscellaneous Notes* Telephone Encounter - Caio Patel RN - 06/09/2024 4:50 PM EDT Called pt left VM with results via phone. Sent ECHO results via mail. * Telephone Encounter - Sarina Benitez RN - 06/09/2024 12:10 PM EDT Images from the original note were not included. Claire Turner MD 06/09/2024 9:08 AM EDT Unable to reach Mr. Quinn via telephone numbers on several occasions. Please call Mr. Quinn and inform him that his echo showed a normal heart function. There was trace to mild leaking from the tricuspid and aortic valves. Recommend repeat echo in 3 years to monitor. Called pt. No answer. Left VM with results. Advised to call back with any questions. documented in this encounterMetro[facility]10-15-2024 Telephone encounter Note * Telephone Encounter - Sarina Benitez RN - 06/09/2024 12:10 PM EDT Images from the original note were not included. Claire Turner MD 06/09/2024 9:08 AM EDT Unable to reach Mr. Quinn via telephone numbers on several occasions. Please call Mr. Quinn and inform him that his echo showed a normal heart function. There was trace to mild leaking from the tricuspid and aortic valves. Recommend repeat echo in 3 years to monitor. Called pt. No answer. Left VM with results. Advised to call back with any questions. [facility] Telephone encounter Note* Telephone Encounter - Nicole Lemus MA - 06/01/2024 9:59 AM EDT Patient is requesting this prescription be faxed KERRY at [facility] at . Pharmacy phone number is . JOSE ALBERTO with Dr. Restrepo 03/24/2024 No future appt. [facility] Miscellaneous Notes* Telephone Encounter - Nicole Lemus MA - 06/01/2024 9:59 AM EDT Patient is requesting this prescription be faxed KERRY at [facility] at . Pharmacy phone number is . JOSE ALBERTO with Dr. Restrepo 03/24/2024 No future appt. documented in this encounterMetro[facility]10-03-2024 Telephone encounter Note * Telephone Encounter - Glendy Dial RN - 05/28/2024 1:32 PM EDT Left message for patient to return call. [facility] Miscellaneous Notes* Telephone Encounter - Glendy Dial RN - 05/28/2024 1:32 PM EDT Left message for patient to return call. * Addendum Note - Tigre Restrepo MD - 05/28/2024 1:29 PM EDTAddended by: TIGRE RESTREPO on: 05/28/2024 01:29 PM Modules accepted: Orders * Telephone Encounter - Tigre Restrepo MD - 05/28/2024 1:25 PM EDT Please inform the patient that the culture is growing a bacteria that needs to be treated with antibiotics. I have contacted him earlier because a virus also grew on the bronchoscopy sample. I will send him an antibiotic that he needs to take for 14 days Also please schedule him with infectious disease Thanks nh documented in this encounterMet[facility]10-03-2024 Note* Addendum Note - Tigre Restrepo MD - 05/28/2024 1:29 PM EDTAddended by: TIGRE RESTREPO on: 05/28/2024 01:29 PM Modules accepted: Orders [facility]10-03-[facility] Telephone encounter Note* Telephone Encounter - Tigre Restrepo MD - 05/28/2024 1:25 PM EDT Please inform the patient that the culture is growing a bacteria that needs to be treated with antibiotics. I have contacted him earlier because a virus also grew on the bronchoscopy sample. I will send him an antibiotic that he needs to take for 14 days Also please schedule him with infectious disease Thanks md [facility]10-[facility]24 Telephone encounter Note* Telephone Encounter - Sarina Benitez RN - 05/28/2024 8:48 AM EDT Called pt, no answer. Advised pt to call back to discuss recommednations. [facility] Miscellaneous Notes* Telephone Encounter - Sarina Benitez RN - 05/28/2024 8:48 AM EDT Called pt, no answer. Advised pt to call back to discuss recommednations. * Telephone Encounter - Claire Turner MD - 05/27/2024 11:07 AM EDT I attempted to reach Beatris via telephone however there was no answer. Voicemail message left for him to return our call. Dr. Ayers was able to review his cath images and recommended coronary ultrasound of the left main artery. He recommended [facility]. documented in this encounterMet[facility]10-02-2024 Telephone encounter Note * Telephone Encounter - Janie Baxter RN - 05/27/2024 4:07 PM EDT Called patient at 4:06, advised he would get a CB at 4P. Left a message that this nurse will CB at 7P tonight. [facility] Miscellaneous Notes* Telephone Encounter - Janie Baxter RN - 05/27/2024 4:07 PM EDT Called patient at 4:06, advised he would get a CB at 4P. Left a message that this nurse will CB at 7P tonight. * Telephone Encounter - Janie Baxter RN - 05/27/2024 12:11 PM EDT Left a message per patient request that he will get a call back at the number listed t give him themessage. * Telephone Encounter - Tigre Restrepo MD - 05/27/2024 11:39 AM EDT Please inform the patient that there was no cancer seen on lung biopsy. I am still waiting for the culture. Thanks md documented in this encounterMet[facility]10-02-2024 Telephone encounter Note * Telephone Encounter - Janie Baxter RN - 05/27/2024 12:11 PM EDT Left a message per patient request that he will get a call back at the number listed t give him themessage. [facility]10-[facility] Telephone encounter Note* Telephone Encounter - Tigre Restrepo MD - 05/27/2024 11:39 AM EDT Please inform the patient that there was no cancer seen on lung biopsy. I am still waiting for the culture. Thanks md [facility]10-[facility] Telephone encounter Note* Telephone Encounter - Claire Turner MD - 05/27/2024 11:07 AM EDT I attempted to reach Beatris via telephone however there was no answer. Voicemail message left for him to return our call. Dr. Ayers was able to review his cath images and recommended coronary ultrasound of the left main artery. He recommended this be done at [facility]. [facility] Work Phone: [phone] 205-606010-01-2024 Telephone encounter Note* Telephone Encounter - Janie Baxter RN - 05/26/2024 1:57 PM EDT Message to patient, advised he will get a CB with the culture results as soon as they are available. [facility]10-01-[facility] Miscellaneous Notes* Telephone Encounter - Janie Baxter RN - 05/26/2024 1:57 PM EDT Message to patient, advised he will get a CB with the culture results as soon as they are available. * Telephone Encounter - Janie Baxter RN - 05/26/2024 1:32 PM EDT Unable to reach patient at work, will have to try other number later. * Telephone Encounter - Janie Baxter RN - 05/26/2024 11:58 AM EDT Patient at lunch, need to CB after 12:30. * Telephone Encounter - Tigre Restrepo MD - 05/26/2024 10:44 AM EDT Please inform the patient that the bronchoscopy bacterial and fungal cultures remains negative. He tested positive for rhinovirus which is the common cold. I sent him a prednisone course for 7 days The rest of the cultures will take up to 6 weeks. I will keep him updated. Thanks' * Telephone Encounter - Janie Baxter RN - 05/26/2024 9:58 AM EDT Patient left a message on at 8:51a about the message below. Please advise. * Telephone Encounter - Candelaria Singh - 05/25/2024 3:22 PM EDT Patient called to request that Dr. Restrepo call script into [facility]. He states he had his biopsy today and was told that Dr. Restrepo would be sending in a script to address his lung infection. Patient unsure of medication and requested a message to be sent to Dr. Restrepo's office. Please contact patient with any questions: [phone] (neighbor's phone) documented in this encounterMetrohealth [facility]10-01-2024 Telephone encounter Note * Telephone Encounter - Janie Baxter RN - 05/26/2024 1:32 PM EDT Unable to reach patient at work, will have to try other number later. [facility]10-01-[facility] Telephone encounter Note* Telephone Encounter - Janie Baxter RN - 05/26/2024 11:58 AM EDT Patient at lunch, need to CB after 12:30. [facility]10-01-[facility] Telephone encounter Note* Telephone Encounter - Tigre Restrepo MD - 05/26/2024 10:44 AM EDT Please inform the patient that the bronchoscopy bacterial and fungal cultures remains negative. He tested positive for rhinovirus which is the common cold. I sent him a prednisone course for 7 days The rest of the cultures will take up to 6 weeks. I will keep him updated. Thanks' [facility]10-[facility] Telephone encounter Note* Telephone Encounter - Janie Baxter RN - 05/26/2024 9:58 AM EDT Patient left a message on at 8:51a about the message below. Please advise. [facility]09-30-[facility] Telephone encounter Note* Telephone Encounter - Candelaria Singh - 05/25/2024 3:22 PM EDT Patient called to request that Dr. Restrepo call script into [facility]. He states he had his biopsy today and was told that Dr. Restrepo would be sending in a script to address his lung infection. Patient unsure of medication and requested a message to be sent to Dr. Restrepo's office. Please contact patient with any questions: [phone] (neighbor's phone) T [facility]09-27-2024 History of Present illness Narrative* Claire Turner MD - 05/22/2024 8:00 AM EDT Images from the original note were not included. [facility] SECTION OF REGIONAL CARDIOLOGY OUTPATIENT VISIT DATE 05/22/2024 OUTPATIENT VISIT TYPE NEW PRIMARY CARE PHYSICIAN: Jr Ryan [address] [address] HISTORY OF PRESENT ILLNESS: Mr. Quinn is a 73 year old male, hx of hypertension, asthma, COPD, presents for cardiovascular assessment. He denies chest pain, palpitations, orthopnea, PND, leg swelling, lightheadedness, syncope. He underwent hernia surgery in January/February in [place]. Around that time, he underwent a coronary CTA. CD images or results are not available at the time of this visit. He reported that based on the CT findings, he was advised to have a cardiac catheterization which was performed at [place]. Per cath report dated 03/02/2024: 'Nonobstructive coronary arteries. Cleft like lesion noted in proximal left main with no significant other stenosis noted, no dampening present. LAD MLI circumflex MLI, RCA MLI. Moderate aortic stenosis calcification no high- grade obstruction. Will order CT angio to visualize LM ostium. He states that he did not have the CT angiogram. 'Per outside TTE dated 03/02/2024 echo report: EF 65%, grade 1 DD, mild MR, mild TR, mean AV gradient 13.5, mild to moderate , mild ND. He presents for second opinion re: heart cath. He reports intermittent L sided chest pain. Some episodes are sharp in nature lasting few seconds long. He also reports a different type of chest discomfort that he feels when lying on his left side.He feels SOB when working outside which he attributes to severe COPD. PAST MEDICAL HISTORY Diagnosis Date Phlebitis and thrombophlebitis of unspecified site right leg Unspecified asthma(493.90) Unspecified essential hypertension PAST SURGICAL HISTORY Procedure Laterality Date CAPSULORRHAPHY ANTERIOR PUTTI-MARIA E/JEZ x 2 Repair shoulder dislocation EXC TRACE/VASC MAL SFT TISS HAND/FNGR SUBQ <1.5CM Left 10/20/2016 Exc. left hand 3rd digit SC mass PAST SURGICAL HISTORY OF 12/2005 right hip fracture repaired with erick placement PAST SURGICAL HISTORY OF 01/2009 right hip replacement PAST SURGICAL HISTORY OF 09/05/12 Left rotator cuff; Dr. Donato Mcqueen Social History Tobacco Use Smoking status: Former Current packs/day: 0.00 Average packs/day: 0.5 packs/day for 36.0 years (18.0 ttl pk-yrs) Types: Cigarettes Start date: 10/24/1969 Quit date: 10/24/2005 Years since quittin.5 Smokeless tobacco: Never Substance Use Topics Alcohol use: Yes Drug use: No FAMILY HISTORY Problem Relation Age of Onset Heart Father mi Diabetes Mother Heart Mother chf Hypertension Brother Developmental problem Sister ALLERGIES Allergen Reactions Lisinopril Cough Maxzide [Triamteren* Intolerance leg cramp, sex desire decrease Naproxen GI Upset CURRENT MEDICATIONS: MAGNESIUM ORAL Take by mouth. VITAMIN E ORAL Take by mouth. predniSONE EC 5 mg Delayed Release Tab Take 5 mg by mouth. taking 1/2 tablet daily GARLIC ORAL Take by mouth. albuterol HFA (PROAIR HFA) 90 mcg/actuation inhaler 2 puff(s), Inhalation, q4h, PRN as needed for wheezing fluticasone/umeclidin/vilanter (TRELEGY ELLIPTA INHALATION) Inhale as instructed. amLODIPine (NORVASC) 5 mg tablet Take 1 tablet by mouth once daily. omeprazole (PRILOSEC) 20 mg capsule Take 1 capsule by mouth daily before breakfast. 1/2 hr before meal. Herbal Drugs cap Take 1 capsule by mouth once daily. gabapentin (NEURONTIN) 100 mg capsule Take 1 capsule by mouth three times daily for 30 days. fluticasone-vilanterol (BREO ELLIPTA) 200-25 mcg/dose inhaler Inhale 1 Inhalation as instructed once daily. Pt states only using 125mcg now (Patient not taking: Reported on 05/15/2024) PHYSICAL EXAMINATION: BP 136/70 Pulse 69 Ht 162.6 cm (5' 4) Wt 58 kg (127 lb 13.9 oz) SpO2 95% BMI 21.95 kg/m General: Appears comfortable in no apparent cardiopulmonary distress Neck: No JVD, no bruits CVS: S1, S2, 3/6 holosystolic murmur best heard over apex Chest: CTAB Abd: Soft, nontender, no masses, BS present Ext: No pedal edema, pedal pulses 2+ bilaterally Neuro: No focal neurological deficits CARDIOVASCULAR MEDICINE TESTING: Last EKG Result Conclusion ECG COMPLETE Collected: 03/11/2024 7:28 AM (Preliminary result) Impression: SINUS BRADYCARDIA OTHERWISE NORMAL ECG Last CT Result Conclusion CT CHEST WO IVCON Exam End: 05/15/2024 12:14 PM (Final result) Impression: IMPRESSION: 1. Compared to 03/27/2024 exam, most of the prior visualized opacities appear similar in size, except for new peripheral consolidative opacities in the right lower lobe. It should be noted that the dominant lesions in the left upper and middle lobes has diminished in size compared to 02/06/2024 exam (as described), including left lower lobe superior segment consolidative opacity. Therefore, in the light of multiple nodules, and airway inflammatory changes, the dominant lesions are felt to be in infectious/inflammatory (granulomatous-fungal or mycobacterial [nontuberculous?]). 2. Fairly severe emphysema. Multiple mucous plugs. Bronchiectatic changes, possibly associated with aspiration. 3. No enlarging lymph nodes. Seat Cover Cutter: NESTOR Transcribe Date/Time: May 15 2024 4:44P Dictated by : ALIREZA FREDERICK MD This examination was interpreted and the report reviewed and electronically signed by: ALIREZA FREDERICK MD on May 15 2024 4:59PM EST ASSESSMENT/PLAN: 1. Coronary artery disease due to lipid rich plaque - ICD9: 414.00, 414.3, ICD10: I25.10, I25.83 - Will review cath images on CD with my colleague Dr. Ayers to determine whether thinks CT angiogram is warranted for assessment of his left main artery. Will call him to provide further updates. - Recommend lipid panel assessment which she will have done with his PCP. -We discussed low cholesterol diet- avoid red meats and processed foods, focus on lean portions of white meat- chicken and turkey breast, fish, healthy nuts, fruits, vegetables. - He was counseled on gradually achieving at least 30 minutes of moderate intensity aerobic exercise 5 times per week-biking, brisk walking, hiking, swimming, rowing. 2. Systolic murmur - Repeat TTE. Call him with results Claire Turner MD[facility] documented in this encounterMetrohealth [facility]09-24-2024 History of Present illness Narrative* Chapin Crow-MD Dwight - 05/19/2024 4:15 PM EDT It is the responsibility of the presenting physician to facilitate any and all recommendations discussed during Thoracic Tumor Board if they are to be implemented into the patients plan of care. Pending Staff Approval [facility] DISCIPLINARY THORACIC TUMOR BOARD: May 19, 2024 Presenting Physician(s): MD Beatris Lomas Eligio Quinn 73 year old [id number] Staff in Attendance: Staff representing all Thoracic Oncology Disciplines present, Thoracic Surgery, Interventional Pulmonology, Interventional Radiology, Pathology, Medical Oncology, and Radiation Oncology Type of Review: Initial Review Pathology Review: No Radiology Review: Yes Tobacco Use: Types: Cigarettes PMH: PAST MEDICAL HISTORY Diagnosis Date Phlebitis and thrombophlebitis of unspecified site right leg Unspecified asthma(493.90) Unspecified essential hypertension HPI: 73 year old male Diagnosis: Multiple lung nodules Some nodules have decreased in size, some stable. Looks concerning, however due to some of them such as the one in [place] decreasing in size, probably infectious/ inflammation. Outcome: The collaborative recommendation was biopsy the [place] and also to send for culture, BAL the right lung. These recommendations will be communicated to the patient by the presenting physician(s). The above documentation represents the discussion outcomes after review of this patients case during the weekly Thoracic Tumor Board conference. Final treatment planning will be determined by the primary treatment team staff physicians. Signed by: Mehreen Crwo documented in this encounterMetrohealth [facility] Center09-20-2024 Instructions* Patient Instructions* Mehreen Crow MD - 05/15/2024 10:37 AM EDT You will need an updated CAT scan today. If the lung spots are better, I will call you and let you know. But, if I don't call, that means you are coming for the biopsy as scheduled. For bronchoscopy procedure: You will receive a call from our senior scheduler to let you know the time and date. Please take note whenthey call and write the time down as I do not know the day and time today until they look into it for you. Location to check in on the day for bronchoscopy: [address] desk (go to main entrance with fountain/ the building with [employer], if you don't know where, please ask the red coat person in the yeboah and they will help you) Please eat and drink nothing after midnight, once you go to bed and until procedure is done Please call [phone] for additional information prior to bronchoscopy if you have questions You will need someone to bring you to this procedure and stay for the entire duration of procedure as you cannot drive home after procedure documented in this encounterMetrohealth [facility] Center09-20-2024 History of Present illness Narrative* Nicole Martin RT(R) - 05/15/2024 10:30 AM EDT Radiology Service Progress Note PATIENT NAME: Beatris Quinn DATE OF SERVICE: May 15, 2024 TIME: 12:09 PM PATIENT IDENTITY VERIFICATION COMPLETED USING TWO (2) IDENTIFIERS: Name and Date of confirmedby patient verbally and Name and Date of confirmed by identification band. FALL SCREENING: Has the patient had 2 falls in the last year or 1 fall with injury or currently using an Ambulatory Assistive Device (Walker, Cane, Wheelchair, Crutches, etc.)? No PATIENT GENDER DATA: Male PATIENT RELEVANT IMPLANT DATA REVIEWED: Yes PATIENT PRESENTS WITH AN IMPLANTABLE OR ATTACHED MECHANICAL PROCESS ENGINEER: No RADIOLOGY DEPARTMENT: CT; Exam(s) Completed: Chest PERIPHERAL IV DATA: Not applicable SIGNED BY: RT Noel(R) May 15, 2024 12:09 PM documented in this encounterMetrohealth [facility]09-20-2024 History of Present illness Narrative* Mehreen Crow MD - 05/15/2024 10:00 AM EDT Images from the original note were not included. INTERVENTIONAL PULMONARY MEDICINE CONSULTATION PLEASE DO NOT REMOVE FROM THE CHART OR MODIFY PRINTED COPY Patient Name: Beatris Quinn PRIMARY CARE PHYSICIAN: Jr Ryan DO REFERRING PHYSICIAN: Tigre Restrepo MD (please cc for bronch result) Interpreting services utilized via (african studies professor service modality: african studies professor not needed for appointment) Consultation requested by Dr. Restrepo for an opinion regarding multiple lung nodules. My final recommendations/evaluation will be communicated back to the requesting physician by way of shared medicalrecord or letter via US mail. CHIEF COMPLAINT: Multiple lung nodules HISTORY OF PRESENT ILLNESS: Beatris Quinn is a 73 year old former smoker male with very severe COPD who is here to discuss multiple pulmonary nodules. Last October, patient had double pneumonia and Influenza, and since then he felt that his dyspnea is worse. Easier winded. Sometimes some pain in the chest. Seen slipman, may have some artery blockage or narrowing, but cleared him for procedures and does not currently need any intervention there. 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 No fever, chills, night sweat. He reports that he used to have greenish thick mucus production but that has improved and currently he does not even wheeze or have productive cough. Denies chest pain/ pressure even with exertion. No GERD. No personal history of cardiac or stroke related issues. No family history of lung malignancy. No known significant exposure to anyone with known TB. PAST MEDICAL HISTORY Diagnosis Date Phlebitis and thrombophlebitis of unspecified site right leg Unspecified asthma(493.90) Unspecified essential hypertension PAST SURGICAL HISTORY Procedure Laterality Date CAPSULORRHAPHY ANTERIOR PUTTI-MARIA E/JEZ x 2 Repair shoulder dislocation EXC TRACE/VASC MAL SFT TISS HAND/FNGR SUBQ <1.5CM Left 10/20/2016 Exc. left hand 3rd digit SC mass PAST SURGICAL HISTORY OF 12/2005 right hip fracture repaired with erick placement PAST SURGICAL HISTORY OF 01/2009 right hip replacement PAST SURGICAL HISTORY OF 09/05/12 Left rotator cuff; Dr. Donato Mcqueen FAMILY HISTORY Problem Relation Age of Onset Heart Father mi Diabetes Mother Heart Mother chf Hypertension Brother Developmental problem Sister Social History Tobacco Use Smoking status: Former Current packs/day: 0.00 Average packs/day: 0.5 packs/day for 36.0 years (18.0 ttl pk-yrs) Types: Cigarettes Start date: 10/24/1969 Quit date: 10/24/2005 Years since quittin.5 Smokeless tobacco: Never Substance Use Topics Alcohol use: Yes Drug use: No ALLERGIES: ALLERGIES Allergen Reactions Lisinopril Cough Maxzide [Triamteren* Intolerance leg cramp, sex desire decrease Naproxen GI Upset CURRENT OUTPATIENT MEDICATIONS: MAGNESIUM ORAL Take by mouth. VITAMIN E ORAL Take by mouth. predniSONE EC 5 mg Delayed Release Tab Take 5 mg by mouth. taking 1/2 tablet daily GARLIC ORAL Take by mouth. albuterol HFA (PROAIR HFA) 90 mcg/actuation inhaler 2 puff(s), Inhalation, q4h, PRN as needed for wheezing fluticasone/umeclidin/vilanter (TRELEGY ELLIPTA INHALATION) Inhale as instructed. amLODIPine (NORVASC) 5 mg tablet Take 1 tablet by mouth once daily. omeprazole (PRILOSEC) 20 mg capsule Take 1 capsule by mouth daily before breakfast. 1/2 hr before meal. Herbal Drugs cap Take 1 capsule by mouth once daily. gabapentin (NEURONTIN) 100 mg capsule Take 1 capsule by mouth three times daily for 30 days. fluticasone-vilanterol (BREO ELLIPTA) 200-25 mcg/dose inhaler Inhale 1 Inhalation as instructed once daily. Pt states only using 125mcg now (Patient not taking: Reported on 05/15/2024) REVIEW OF SYSTEMS GENERAL:Positive for nonspecific weight loss, SEE HPI HEENT:Negative for frequent or significant headaches NECK:Negative for lumps, goiter, pain and significant neck swelling RESPIRATORY: Dyspnea CARDIOVASCULAR: Negative for chest pain, leg swelling or palpitations. GASTROINTESTINAL: No heartburn or reflux symptoms GENITOURINARY: Not reviewed MALTED MILK SUPERVISOR: NA MUSCULOSKELETAL: Negative for joint pain or swelling, back pain or muscle pain. NEUROLOGIC:Negative for focal numbness or weakness, headaches and dizziness or syncope. SKIN:Negative for lesions, rash, and itching. PSYCHIATRIC: Not reviewed HEMATOLOGIC/LYMPHATIC/IMMUNOLOGIC:Negative for prolonged bleeding, bruising easily or swollen nodes. ENDOCRINE: Not reviewed The remainder of the ROS was negative. PHYSICAL EXAMINATION: VITAL SIGNS: BP 150/78 Pulse 51[Took anxiety tablet this morning[ Temp (Src) 97.2 (Temporal) Resp 16 Wt 123 lb 3.8 oz (55.9kg) SpO2 96% General appearance: Thin, well appearing, alert, and in no acute distress, difficulty hearing with hearing aids Skin: skin color, texture, turgor normal, no rashes or lesions Head: normal Eyes: Not icteric ENT: Moist mucous membranes Neck: Supple Lungs: lungs clear to auscultation no wheezing or rhonchi, slightly reduced breath sounds bilaterally symmetrical Heart: RRR without murmur, gallop, or rubs. No ectopy Abdomen: Not examined Extremities: Extremities normal. No deformities, edema, or skin discoloration Neuro: Gait normal. LAST LAB RESULTS: Lab results were reviewed. IMAGING: Reviewed. 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 I explained to them that I am concerned that this nodules may be probable malignant but unable to rule out infection. His risk for malignancy is high, being a former smoker with background of severe COPD/emphysema. Fortunately, in person seeing him does look like he has a better functional status than evaluating him based on just his pulmonary function test. He is still independently working in [employer]. Overall preserved ECOG. After carefully weighing each option we have mutually agreedto proceed with bronchoscopy as biopsy is indicated to obtain a diagnosis that will guide treatment. Due to underlying very severe COPD, his risks for procedure is high. Risks and benefits for bronchoscopy includes but not limited to sore throat, cough, cough with specks of blood, pneumothorax, infection, adverse reaction to anesthesia, fever and chills, needing oxygen, rarely, stroke, myocardialinfarction, arrhthymias or . We discussed that if should a pneumothorax happens, depending on size and symptoms, may prompt a chest tube placement and patient will be hospitalized. We discussed necessity of other members of the healthcare team participating in the procedure. Patient's referring physician will also be copied to receive the results so they can communicate with patient with plan. Patient agrees to proceed. Consent signed electronically in clinic today. Our scheduling team will reach out to provide specific bronchoscopy date and instructions at next mutually convenient time. I explained that I will discuss his case in tumor board to get consensus on biopsy plan that will assist with his treatment plan following diagnosis. He is at risk for potential complications, so I am not sure about biopsying both lungs if not required. Bronchoscopy plan: ETT - navigate to EDWIN nodule, may consider RML + staging He is not on anticoagulation or antiplatelet. 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 It is also explained multiple times that I am unable to tell them what he has based on the imaging today unless we have biopsy results. Depending on what the biopsy shows, such as if malignant he will be referred to an oncologist to discuss further plans on treatment. If biopsy shows infection, he will probably be referred to infectious disease team for he can be managed by his referral physician, Dr. Restrepo. But as of current I do not have any recommendations as to how to proceed with prescribing any medications including antimicrobial because we do not know why he has multiple lung nodules bilaterally. Aside from dyspnea on exertion which I suspect is due to the very severe COPD, he does not have any other systemic symptoms that are suggestive of infection. I have requested for an updated CT scan of the chest to ensure that biopsy is still indicated and if it is I just want to make sure that there has not been any significant change since the last CT scan of the chest. Following this biopsy procedure, he will return to Dr. Restrepo to resume his care for COPD and others. All questions were answered to the best of my ability with a lot of repetition and verbalize back of understanding by his . Written and verbal health teaching given to patient, patient verbalizesunderstanding and agrees with treatment plan. Electronically Signed: Mehreen Crow MD May 15, 2024 12:39 PM documented in this encounterMet[facility] Telephone encounter Note * Telephone Encounter - Kiara Berry HUC - 05/08/2024 3:33 PM EDT Contacted patient to schedule Bronchoscopy. No answer,left message. [facility] Miscellaneous Notes* Telephone Encounter - Kiara Berry HUC - 05/08/2024 3:33 PM EDT Contacted patient to schedule Bronchoscopy. No answer,left message. documented in this encounterMetro[facility]09-10-2024 History of Present illness Narrative* Sahara Weldon MD - 05/05/2024 12:31 PM EDT Bronchoscopy Request: Cleared for scheduling May 05, 2024 Please schedule patient for the following: EST visit-prefer it with person doing procedure Staging EBUS Body Vision Navigation Bronchoscopy ([facility]) Robotic Bronchoscopy Auris (ANDRIA/SS/MARCELLA/LILY) ION robot candidate very severe copd, multiple lung nodules with dominant 29 mm EDWIN pet positive with hypermetabolic hilar adenopathy. Please evaluate for EDWIN nodule biopsy with EBUS. (Patient has no mobile phone. He asked to leave a message on his home phone number for scheduling) decision on multiple nodules to broncho doc--I suspect mets but can be inflammatory nodule. I thinkEBUS staging is reasonble if a second nodule biopsy is not favored---up to bronch doc--I asked for same doc to do visit and bronch Cards clearance-low risk per OSH cards Clinical Trial Candidate: No Visit and Bronchoscopy: Different Day Time Allotment/Tier: TIER 2: 2 HOUR Physician Performing Bronchoscopy:Bronch A/Therapeutic Group (PAULETTE, MARCELLA, LILY, CARMEN, CG, MA, SG, SL, or GS) ANDRIA or Dr. Cho Anesthesia Type: General Special Requests: None Needs Labs: No Needs EKG: No Needs CT prior: No Does the pt need cardiac clearance?- Already completed Is he/she on anticoagulants/anti-plt therapy? No Nursing Considerations: (ie: chcf, TB, respiratory isolation, etc.) none Diagnosis/Reason for Bronchoscopy: Multiple nodules Referred by: Charles Reviewed by: MARCELLA Weldon MD May 05, 2024 12:31 PM Addendum: CBC with diff: WBC 9.43 03/11/2024 RBC 4.76 03/11/2024 Hemoglobin 13.0 03/11/2024 Hematocrit 40.0 03/11/2024 MCV 84.0 03/11/2024 MCH 27.3 03/11/2024 MCHC 32.5 03/11/2024 RDW-CV 16.4 03/11/2024 Platelet Count 318 03/11/2024 MPV 9.1 03/11/2024 Neut% 92.8 12/14/2023 Lymph% 2.1 12/14/2023 Coos% 4.6 12/14/2023 Eosin% 0.0 12/14/2023 Baso% 0.1 12/14/2023 Abs Neut (ANC) 17.42 12/14/2023 Abs Coos 0.86 12/14/2023 Abs Eosin <0.03 12/14/2023 Abs Baso <0.03 12/14/2023 Potassium Date Value Ref Range Status 03/11/2024 4.1 3.7 - 5.1 mmol/L Final 12/14/2023 4.2 3.5 - 5.1 mmol/L Final 06/17/2020 4.0 3.7 - 5.1 mmol/L Final Sodium Date Value Ref Range Status 03/11/2024 139 136 - 144 mmol/L Final 12/14/2023 138 136 - 145 mmol/L Final 06/17/2020 136 136 - 144 mmol/L Final BUN Date Value Ref Range Status 03/11/2024 22 9 - 24 mg/dL Final Creatinine Date Value Ref Range Status 03/11/2024 0.91 0.73 - 1.22 mg/dL Final documented in this encounterMet[facility]09-04-2024 Telephone encounter Note * Telephone Encounter - Mitzi Quinteros - 04/29/2024 3:56 PM EDT Contacted patient and left a voicemail to let him know that Dr. Restrepo [facility]- they will contact him to schedule a biopsy. [facility] Miscellaneous Notes* Telephone Encounter - Mitzi Quinteros - 04/29/2024 3:56 PM EDT Contacted patient and left a voicemail to let him know that Dr. Restrepo [facility] the [facility]- they will contact him to schedule a biopsy. documented in this encounterMet[facility]09-04-2024 Telephone encounter Note * Telephone Encounter - Emily Salazar - 04/29/2024 3:19 PM EDT Patient called and would like to get scheduled for a biopsy. Patient mentioned Dr. Restrepo recommended for patient to have biopsy done. [facility] Miscellaneous Notes* Telephone Encounter - Emily Salazar - 04/29/2024 3:19 PM EDT Patient called and would like to get scheduled for a biopsy. Patient mentioned Dr. Restrepo recommended for patient to have biopsy done. documented in this encounterMet[facility]09-04-2024 Telephone encounter Note * Telephone Encounter - Sandra Shelton LPN - 04/29/2024 8:18 AM EDT Letter faxed to [phone]. Transmission successful, paperwork in fax drawer. [facility]-04-[facility] Miscellaneous Notes* Telephone Encounter - Sandra Shelton LPN - 04/29/2024 8:18 AM EDT Letter faxed to [phone]. Transmission successful, paperwork in fax drawer. * Telephone Encounter - Sandra Shelton LPN - 04/29/2024 8:14 AM EDT Images from the original note were not included. Tigre Restrepo MD You15 hours ago (4:18 PM) I am putting a new version in * Telephone Encounter - Sandra Shelton LPN - 04/28/2024 4:02 PM EDT Spoke with [facility] - they state that clearance letter for them to complete must state that name of the physician doing the procedure, the name of the procedure, and the date that it will be done. Asking for this to be faxed to [phone]. documented in this encounterMetro[facility]09-04-2024 Telephone encounter Note * Telephone Encounter - Sandra Shelton LPN - 04/29/2024 8:14 AM EDT Images from the original note were not included. Tigre Restrepo MD You15 hours ago (4:18 PM) I am putting a new version in [facility] Telephone encounter Note* Telephone Encounter - Sandra Shelton LPN - 04/28/2024 4:02 PM EDT Spoke with [facility] - they state that clearance letter for them to complete must state that name of the physician doing the procedure, the name of the procedure, and the date that it will be done. Asking for this to be faxed to [phone]. [facility]08-27-[facility] Telephone encounter Note* Telephone Encounter - Tigre Restrepo MD - 04/21/2024 4:16 PM EDT He has an appointment with cardiology next month at [place] Please can you please try to get him sooner to see cardiology at any location for clearance for general anesthesia before a scheduled lung biopsy to be done as soon as possible for possible lung cancer He said you can leave him a voice message on his home phone number and he will get it later when hegets home I was able to talk to him today I called his work number and they paged him for me Thank you [facility] Work Phone: 1(131) 883-665308-27-2024 Miscellaneous Notes* Telephone Encounter - Tigre Restrepo MD - 04/21/2024 4:16 PM EDT He has an appointment with cardiology next month at [place] Please can you please try to get him sooner to see cardiology at any location for clearance for general anesthesia before a scheduled lung biopsy to be done as soon as possible for possible lung cancer He said you can leave him a voice message on his home phone number and he will get it later when hegets home I was able to talk to him today I called his work number and they paged him for me Thank you documented in this encounterMet[facility]08-27-2024 History of Present illness Narrative* Sahara Weldon MD - 04/21/2024 3:40 PM EDT ADRIEN Landeros, I was reviewing the chart. It seems that this patient may benefit from a cards clearance prior to moving to a [place] procedure. This is a 73 yo M with PMH HTN, asthma, presenting to the emergency department for a second opinionon his heart catheterization. Per patient he had hernia surgery 3 weeks ago in [place] as well as stem cell treatment for his COPD. At that time he states he had some type of heart study, he believes a cardiac MRI where they told him he should follow-up with a slipman due to valvular issues andblockage. He had been went home to [facility] for he had a cardiac catheterization and an echo. In [place] he was told everything was normal. He went only for a second opinion and at that time they looked at the catheterization and said he did have blockage. He is concerned that he has some type of blockage and is here again for another opinion Maybe once he has seen local cards we can re-visit? Feel free to reach out directly to me FYI--I will be away and Saturday and Saturday M documented in this encounterMetro[facility]08-27-2024 Telephone encounter Note * Telephone Encounter - Tigre Restrepo MD - 04/21/2024 11:10 AM EDT Called patient and discussed PET SCAN FINDINGS. POSSIBILITY OF LUNG CANCER PATIENT WILLING TO HAVE BIOPSY SOON POSSIBLE Sent a request [facility] for [facility]08-27-2024 Miscellaneous Notes* Telephone Encounter - Tigre Restrepo MD - 04/21/2024 11:10 AM EDT Called patient and discussed PET SCAN FINDINGS. POSSIBILITY OF LUNG CANCER PATIENT WILLING TO HAVE BIOPSY SOON POSSIBLE [facility] a [facility] for evaluation documented in this encounterMetro[facility]08-27-2024 History of Present illness Narrative* Sahara Che RT(R) - 04/21/2024 7:00 AM EDT RADIOLOGY SERVICE PROGRESS NOTE SERVICE DATE: 04/21/2024 SERVICE TIME: 7:15 AM PATIENT IDENTITY VERIFICATION COMPLETED USING TWO (2) STANDARD IDENTIFIERS: Name and Date of confirmed by patient verbally FALL SCREENING: Has the patient had 2 falls in the last year or 1 fall with injury or currently using an Ambulatory Assistive Device (Walker, Cane, Wheelchair, Crutches, etc.)? No PATIENT GENDER DATA: .male : No ALLERGIES: Reviewed and unchanged MEDICATIONS REVIEWED: No PATIENT RELEVANT IMPLANT DATA REVIEWED: Not Applicable PATIENT PRESENTS WITH AN IMPLANTABLE OR ATTACHED MECHANICAL PROCESS ENGINEER: No CREATININE: Creatinine Date Value Ref Range Status 03/11/2024 0.91 0.73 - 1.22 mg/dL Final 12/14/2023 0.72 0.50 - 1.40 mg/dL Final Comment: Patients receiving either N-Acetylcysteine (NAC) or Metamizole prior to venipuncture, may have falsely depressed results. 06/17/2020 0.89 0.73 - 1.22 mg/dL Final Estimated Glomerular Filtration Rate Date Value Ref Range Status 03/11/2024 89 >=60 mL/min/1.73m Final Comment: Estimated Glomerular Filtration Rate (eGFR) is calculated using the 2020 CKD-EPI creatinine equation. This equation utilizes serum creatinine, sex, and age as parameters. The creatinine assay has traceable calibration to isotope dilution- mass spectrometry. Refer to KDIGO guidelines for clinical interpretation. In patients with unstable renal function, e.g. those with acute kidney injury, the eGFRmay not accurately reflect actual GFR. eGFR- Date Value Ref Range Status 06/17/2020 >60 Final P.O.C.T. RESULTS: N/A April 21, [address] PERFORMED: No IV SITE: Ambulatory: NM only - direct IV injection in the Right antecubital site POST EXAM PIV STATUS: Discontinued PROCEDURE TYPE: NM INJECT: PET/CT BODY SCAN. 6.8 mCi F18 FDG. No other medications given.. ADMINISTRATION TIME: 656 PATIENT DISCHARGED TO: Ambulatory patient, left [place] department area. A Diagnostic radioactive procedure has taken place, with no further precautions necessary other than routine body substance precautions. More information regarding radiation safety can be found usingthis link: [email or web address]%20Medicine%[email or web address] SIGNATURE: SHARON Bledsoe) PATIENT NAME: Beatris Quinn DATE: April 21, 2024 TIME: 7:15 AM PAGER/CONTACT #: documented in this encounterMetro[facility]08-27-2024 NoteHNO ID: [id number] Author: SAHARA CHE RT (R) Service: Nuclear Medicine Author Type: Technologist Type: Progress Notes Filed: 04/21/2024 07:15 Note Text: RADIOLOGY SERVICE PROGRESS NOTE SERVICE DATE: 04/21/2024 SERVICE TIME: 7:15 AM PATIENT IDENTITY VERIFICATION COMPLETED USING TWO (2) STANDARD IDENTIFIERS: Name and Date of confirmed by patient verbally FALL SCREENING: Has the patient had 2 falls in the last year or 1 fall with injury or currently using an Ambulatory Assistive Device (Walker, Cane, Wheelchair, Crutches, etc.)? No PATIENT GENDER DATA: .male : No ALLERGIES: Reviewed and unchanged MEDICATIONS REVIEWED: No PATIENT RELEVANT IMPLANT DATA REVIEWED: Not Applicable PATIENT PRESENTS WITH AN IMPLANTABLE OR ATTACHED MECHANICAL PROCESS ENGINEER: No CREATININE: Creatinine Date Value Ref Range Status 03/11/2024 0.91 0.73 - 1.22 mg/dL Final 12/14/2023 0.72 0.50 - 1.40 mg/dL Final Comment: Patients receiving either N-Acetylcysteine (NAC) or Metamizole prior to venipuncture, may have falsely depressed results. 06/17/2020 0.89 0.73 - 1.22 mg/dL Final Estimated Glomerular Filtration Rate Date Value Ref Range Status 03/11/2024 89 >=60 mL/min/1.73m? Final Comment: Estimated Glomerular Filtration Rate (eGFR) is calculated using the 2020 CKD-EPI creatinine equation. This equation utilizes serum creatinine, sex, and age as parameters. The creatinine assay has traceable calibration to isotope dilution-mass spectrometry. Refer to KDIGO guidelines for clinical interpretation. In patients with unstable renal function, e.g. those with acute kidney injury, the eGFR may not accurately reflect actual GFR. eGFR- Date Value Ref Range Status 06/17/2020 >60 Final P.O.C.T. RESULTS: N/A April 21, [address] PERFORMED: No IV SITE: Ambulatory: NH only - direct IV injection in the Right antecubital site POST EXAM PIV STATUS: Discontinued PROCEDURE TYPE: NM INJECT: PET/CT BODY SCAN. 6.8 mCi F18 FDG. No other medications given.. ADMINISTRATION TIME: 0657 PATIENT DISCHARGED TO: Ambulatory patient, left [place] department area. A Diagnostic radioactive procedure has taken place, with no further precautions necessary other than routine body substance precautions. More information regarding radiation safety can be found using this link: [email or web address] SIGNATURE: RT Rakan(R) PATIENT NAME: Beatris Quinn DATE: April 21, 2024 TIME: 7:15 AM PAGER/CONTACT #:[phone] Telephone encounter Note * Telephone Encounter - Cristal Llanos - 04/10/2024 4:20 PM EDT Patient called back and stated that the order needed to be faxed to the PET scan company at [phone]. Order faxed. [facility]08-[facility] Miscellaneous Notes* Telephone Encounter - Cristal Llanos - 04/10/2024 4:20 PM EDT Patient called back and stated that the order needed to be faxed to the PET scan company at [phone]. Order faxed. * Telephone Encounter - Rosaura Addison - 04/10/2024 2:28 PM EDT PT returned call to the office. For financial reasons, PT is opting to have PET scan at [facility]. Faxed order to [phone]. * Telephone Encounter - Tigre Restrepo MD - 04/10/2024 1:45 PM EDT I called the patient and left him a voice message regarding abnormal ct chest. We need to proceed with PET scan documented in this encounterMetro[facility]08-16-2024 Telephone encounter Note * Telephone Encounter - Rosaura Addison - 04/10/2024 2:28 PM EDT PT returned call to the office. For financial reasons, PT is opting to have PET scan at [facility]. Faxed order to [phone]. [facility]08-[facility] Telephone encounter Note* Telephone Encounter - Tigre Restrepo MD - 04/10/2024 1:45 PM EDT I called the patient and left him a voice message regarding abnormal ct chest. 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 Please schedule him for a virtual visit krery or a phone encounter to discuss the ct chest results I also put him for a pet scan kerry Thanks nh [facility]08-02-2024 Miscellaneous Notes* Telephone Encounter - Tigre Restrepo MD - 03/27/2024 3:[address] chest with no PE Multiple lung nodules, largest is a EDWIN mass 3 cm concerning for lung cancer Plan for pet scan then biopsy I called the patient but 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 FALL SCREENING: Has the patient had 2 falls in the last year or 1 fall with injury or currently using an Ambulatory Assistive Device (Walker, Cane, Wheelchair, Crutches, etc.)? No PATIENT GENDER DATA: Male PATIENT RELEVANT IMPLANT DATA REVIEWED: Yes PATIENT PRESENTS WITH AN IMPLANTABLE OR ATTACHED MECHANICAL PROCESS ENGINEER: No ALLERGIES: Reviewed and unchanged CONTRAST ALLERGY: NO. EXAM: CT -CONTRAST INDUCED NEPHROPATHY RISK FACTORS: Patient age > 60 years CREATININE: Creatinine Date Value Ref Range Status 03/11/2024 0.91 0.73 - 1.22 mg/dL Final 12/14/2023 0.72 0.50 - 1.40 mg/dL Final Comment: Patients receiving either N-Acetylcysteine (NAC) or Metamizole prior to venipuncture, may have falsely depressed results. 06/17/2020 0.89 0.73 - 1.22 mg/dL Final Estimated Glomerular Filtration Rate Date Value Ref Range Status 03/11/2024 89 >=60 mL/min/1.73m Final Comment: Estimated Glomerular Filtration Rate (eGFR) is calculated using the 2020 CKD-EPI creatinine equation. This equation utilizes serum creatinine, sex, and age as parameters. The creatinine assay has traceable calibration to isotope dilution- mass spectrometry. Refer to KDIGO guidelines for clinical interpretation. In patients with unstable renal function, e.g. those with acute kidney injury, the eGFRmay not accurately reflect actual GFR. eGFR- Date Value Ref Range Status 06/17/2020 >60 Final P.O.C.T. RESULTS: POC done: Yes, See Lab Tab March 27, 2024 TREATMENT: N/A PERIPHERAL IV DATA: Ambulatory: A peripheral IV was started in the Left antecubital site with a Angio cath: 18 gauge. RADIOLOGY DEPARTMENT: CT; Exam(s) Completed: PE Study SIGNATURE: RT Kalina(R) PATIENT NAME: Beatris Quinn DATE: March 27, 2024 TIME: 2:01 PM documented in this encounterMet[facility] Telephone encounter Note * Telephone Encounter - Sandra Shelton LPN - 03/25/2024 11:[address] scan report from [facility] received from dr restrepo and sent to scanning. [facility]07-[facility] Miscellaneous Notes* Telephone Encounter - Sandra Shelton LPN - 03/25/2024 11:[address] scan report from [facility] received from dr restrepo and sent to scanning. documented in this encounterMet[facility] Telephone encounter Note * Telephone Encounter - Roz Farias PSS - 03/25/2024 9:05 AM EDT Pt was here for a CT scan today 03/25/24 in [place] @ 8:40am, pt ate at 5:30am and was not suppose to eat or drink for 4 hours before.. so I told the pt to wait till 9:30am and we will do him.. 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 So he rescheduled till Saturday here for [place] 03/27/24 @ 9:40am.. per his choice of date [facility]07-31-[facility] Miscellaneous Notes* Telephone Encounter - Roz Farias PSS - 03/25/2024 9:05 AM EDT Pt was here for a CT scan today 03/25/24 in [place] @ 8:40am, pt ate at 5:30am and was not suppose to eat or drink for 4 hours before.. so I told the pt to wait till 9:30am and we will do him.. 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 So he rescheduled till Saturday here for [place] 03/27/24 @ 9:40am.. per his choice of date documented in this encounterMet[facility] History of Present illness Narrative* Tigre Restrepo MD - 03/24/2024 11:32 AM EDT Images from the original note were not included. [facility] OFFICE VISIT CONSULT 03/24/2024 Patient Name: Beatris Quinn PRIMARY CARE PHYSICIAN: Jr Ryan DO REASON FOR CONSULT: lung nodules, COPD/asthma, allergies, mild CAD, aortic stenosis REFERRING PHYSICIAN: Self My final recommendations will be communicated to the requesting health care provider by way of the shared medical record for internal providers or by letter via US mail for external providers. CHIEF COMPLAINT: lung nodules, COPD/asthma, allergies, mild CAD, aortic stenosis HISTORY OF PRESENT ILLNESS: Beatris Quinn is a 73 year old male, Ht 164.9 cm (5' 4.92) BMI 20.56 kg/m2 with a PMH significant for ex smoking (quit 15 yrs ago), COPD, h/o environmental allergies, mild CAD, recent trip to [place] by bus, hernia surgery while in [place] 01/2024, found tohave lung nodules,here for evaluation. He feels fine with no complaints Sometimes he feels SOB on exertion No cough no sputum production, no fever. Ct chest 02/06/2024: Lymphadenopathy up to 14 mm Multiple nodules, some are calcified, others have neoplastic appearance, largest [id number] lateral segment RML. Cavitary type lesion EDWIN [id number] Had lost weight since last year The symptoms are mild, intermittent, occur on exertion and relieved by inhalers. Meds trelegy, albuterol inhaler, albuterol nebulizer March 24, 2024 RONY very severe airflow obstruction Severe reduction in dlco MMRC Dyspnea Scale: 0. Not troubled by breathlessness except on strenuous exercise Short of breath when hurrying or walking up a slight hill Walks slower than contemporaries on the level because of breathlessness, or has to stop for breath when walking at own pace Stops for breath after about 100 m or after a few minutes on the level Too breathless to leave the house, or breathless when dressing or undressing Environmental/ Occupational Exposure History: Pets: No birds Asbestos: No significant exposure Silica: No significant exposure Sabine: No significant exposure Mold: No significant exposure Hot tub: No significant exposure Fumes: No significant exposure Metal dust: No significant exposure Beryllium: No significant exposure Dust: No significant exposure Medications: No relevant exposure for interstitial lung diseases PAST MEDICAL HISTORY Diagnosis Date Phlebitis and thrombophlebitis of unspecified site right leg Unspecified asthma(493.90) Unspecified essential hypertension PAST SURGICAL HISTORY Procedure Laterality Date CAPSULORRHAPHY ANTERIOR PUTTI-MARIA E/JEZ x 2 Repair shoulder dislocation EXC TRACE/VASC MAL SFT TISS HAND/FNGR SUBQ <1.5CM Left 10/20/2016 Exc. left hand 3rd digit SC mass PAST SURGICAL HISTORY OF 12/2005 right hip fracture repaired with erick placement PAST SURGICAL HISTORY OF 01/2009 right hip replacement PAST SURGICAL HISTORY OF 09/05/12 Left rotator cuff; Dr. Donato Mcqueen FAMILY HISTORY Problem Relation Age of Onset Heart Father mi Diabetes Mother Heart Mother chf Hypertension Brother Developmental problem Sister no pertinent family history Social History Tobacco Use Smoking status: Former Packs/day: 0.50 Years: 36.00 Additional pack years: 0.00 Total pack years: 18.00 Types: Cigarettes Quit date: 10/24/2005 Years since quittin.4 Smokeless tobacco: Never Substance Use Topics Alcohol use: Yes Drug use: No ALLERGIES ALLERGIES Allergen Reactions Lisinopril Cough Maxzide [Triamteren* Intolerance leg cramp, sex desire decrease Naproxen GI Upset CURRENT OUTPATIENT MEDICATIONS MAGNESIUM ORAL Take by mouth. VITAMIN E ORAL Take by mouth. predniSONE EC 5 mg Delayed Release Tab Take 5 mg by mouth. taking 1/2 tablet daily GARLIC ORAL Take by mouth. albuterol HFA (PROAIR HFA) 90 mcg/actuation inhaler 2 puff(s), Inhalation, q4h, PRN as needed for wheezing fluticasone/umeclidin/vilanter (TRELEGY ELLIPTA INHALATION) Inhale as instructed. amLODIPine (NORVASC) 5 mg tablet Take 1 tablet by mouth once daily. omeprazole (PRILOSEC) 20 mg capsule Take 1 capsule by mouth daily before breakfast. 1/2 hr before meal. Herbal Drugs cap Take 1 capsule by mouth once daily. gabapentin (NEURONTIN) 100 mg capsule Take 1 capsule by mouth three times daily for 30 days. fluticasone-vilanterol (BREO ELLIPTA) 200-25 mcg/dose inhaler Inhale 1 Inhalation as instructed once daily. Pt states only using 125mcg now (Patient not taking: Reported on 03/24/2024) REVIEW OF SYSTEMS Review of Systems Constitutional: Negative for chills, fever and weight loss. Respiratory: Negative for cough, hemoptysis, sputum production, shortness of breath and wheezing. The remainder of review of systems was negative. PHYSICAL EXAM BP 150/77 Pulse 66 Ht 5' 4.921 (1.65m) Wt 123 lb 3.8 oz (55.9kg) SpO2 97% BMI 20.56 kg/(m^2). General appearance: Well appearing, alert, in no acute distress, well-hydrated, well nourished. Eyes: PERRLA Neck: no palpable masses Lungs: Lungs clear to auscultation. No wheezing, rhonchi, rales Heart: RRR without murmur, gallop, or rubs. No ectopy , normal peripheral pulses, no peripheral edema Abdomen: Abdomen soft, non-tender. Bowel sounds normal. No masses, organomegaly Extremities: Normal, Warm, No cyanosis, no clubbing, No edema, and Nontender Neuro: no focal weakness Psychiatry: Alert, Oriented X 3 DATA Diagnostic tests reviewed and analysed for today's visit, including films and specimens, personallyreviewed by me: Most recent labs and imaging results. Recent Results (from the past 8760 hour(s)) ECG COMPLETE Collection Time: 03/11/24 7:28 AM Result Value Ventricular Rate 55 Atrial Rate 55 P-R Interval 140 QRS Duration 74 QT Interval 424 QTC Calculation (Bazett) 405 Calculated P Phoenix 108 Calculated R Phoenix 77 Calculated T Phoenix 71 Impression SINUS BRADYCARDIA OTHERWISE NORMAL ECG No results found for this or any previous visit (from the past 32215 hour(s)). XR CHEST 1V FRONTAL PORT Result Date: 03/11/2024 IMPRESSION: Findings which are likely infectious/inflammatory in the left greater than right lungs as described. More focal rounded opacity in the left midlung is new since 12/15/2023, likely also infectious in etiology although interval follow-up is recommended to document resolution. ACTIONABLE RESULT: FOLLOW-UP Acuity: Actionable Findings: Thoracic-Lung nodules Routing code: RI_[email or web address] Recommendation: XR Chest 2 view Time Frame: 4-6 weeks COMMUNICATION: Results will be communicated with the ordering provider via [facility] staff message or phone message by [facility] within 2 business days of report finalization. --END OF FINDING-- Seat Cover Cutter: NESTOR Transcribe Date/Time: Mar 11 2024 8:08A Dictated by : NICOLAS BAJWA MD This examination was interpreted and the report reviewed and electronically signed by: NICOLAS BAJWA MD on Mar 11 2024 8:17AM EST XR CHEST 2V FRONTAL/LAT Result Date: 12/15/2023 IMPRESSION: No acute radiographic abnormality. Seat Cover Cutter: NESTOR Transcribe Date/Time: Dec 15 2023 1:22A Dictated by : PAT FINN MD This examination was interpreted and the report reviewed and electronically signed by: PAT FINN MD on Dec 15 2023 1:24AM EST No results found. Immunizations: Unknown ASSESSMENT/PLAN ASSESSMENT/PLAN: 1. Lung nodules - ICD9: 793.19, ICD10: R91.8 (primary diagnosis) Ct chest 02/06/2024: Lymphadenopathy up to 14 mm Multiple nodules, some are calcified, others have neoplastic appearance, largest [id number] lateral segment RML. Cavitary type lesion EDWIN [id number] Multiple large opacities, one of them is cavitated Course of antibiotic Repeat ct chest - CT CHEST WO IVCON - CREATININE BLD 2. Centrilobular emphysema (HCC) - ICD9: 492.8, ICD10: J43.2 Continue Trelegy Albuterol as needed hfa/nebulizer - [id number] 3. Chest pain on breathing - ICD9: 786.52, ICD10: R07.1 R/o PE Trip by bus to [place] 01/2024 - CT CHEST W IVCON PE 4. Cavitary lesion of lung - ICD9: 518.89, ICD10: J98.4 Serum aspergillus galactomannan and coccidio mildly above normal 5. Allergy to environmental factors - ICD9: V15.09, ICD10: Z91.09 Possible asthma on top of copd 6. Ex-smoker - ICD9: V15.82, ICD10: Z87.891 Quit 15 yrs ago I reviewed all medical records brought by patient Ct chest uploaded I spent a total of 60 minutes on the date of the service which included preparing to see the patient, [id number] patient care, completing clinical documentation, obtaining and/or reviewing separately obtained history, performing a medically appropriate examination, ordering medications, tests, or procedures, and independently interpreting results (not separately reported). Tigre Restrepo MD, MATT Staff, Respiratory [place] [facility] CC: Jr yRan, DO Fleming documented in this encounterMet[facility]07-30-2024 History of Present illness Narrative* Sandy Patel Tech - 03/24/2024 11:00 AM EDT Radiology Service Progress Note PATIENT NAME: Beatris Quinn DATE OF SERVICE: March 24, 2024 TIME: 10:54 AM PATIENT IDENTITY VERIFICATION COMPLETED USING TWO (2) IDENTIFIERS: Name and Date of confirmedby patient verbally. FALL SCREENING: Has the patient had 2 falls in the last year or 1 fall with injury or currently using an Ambulatory Assistive Device (Walker, Cane, Wheelchair, Crutches, etc.)? No PATIENT GENDER DATA: Male PATIENT RELEVANT IMPLANT DATA REVIEWED: Not Applicable PATIENT PRESENTS WITH AN IMPLANTABLE OR ATTACHED MECHANICAL PROCESS ENGINEER: No RADIOLOGY DEPARTMENT: General X-ray: Exam(s) Completed: Chest X-Ray PERIPHERAL IV DATA: Not applicable SIGNED BY: Kannan Lovell March 24, 2024 10:54 AM documented in this encounterMet[facility]07-30-2024 History of Present illness Narrative* Garcia Muir RRT - 03/24/2024 10:39 AM EDT PULM FUNCTION: Provider: Tigre Restrepo MD Assisting Tech: Garcia Muir RRT Spirometry w/BD: 1 DLCO: 1 documented in this encounterMet[facility]07-10-2024 Telephone encounter Note * Telephone Encounter - Lucía Rader - 03/04/2024 12:59 PM EDT Patient's son is calling to see if patient can be seen in COPD clinic as soon as possible. Requests callback. Johnson (Son) [facility]07-10-[facility]24 Miscellaneous Notes* Telephone Encounter - Lucía Rader - 03/04/2024 12:59 PM EDT Patient's son is calling to see if patient can be seen in COPD clinic as soon as possible. Requests callback. Johnson (Son) documented in this encounterMet[facility]04-26-2024 Discharge summary Author Fadi Lloyd [facility] December 20, 2023 1:58pm Note Date/Time December 20, 2023 1:5 3pm [facility] Medical Records Department [address] [place] [address] Discharge Summary 12/20/23 1351 MR#: [id number] Acct: [id number] Name: BEATRIS QUINN Rep #:[id number] : 1950 72 From: Fadi Willis PCP: Dr. Jr Ryan DO Status:ADM IN [facility] Prov[facility] Date of Admission: 12/17/23 Date of Discharge: 12/20/23 Primary Care Physician: Dr. Jr Ryan DO Reason For Visit: PNEUMONIA Diagnosis Discharge Diagnosis (1) Pneumonia: Status: Acute Code(s): J18.9 - Pneumonia, unspecified organism Plan 72-year-old gentleman came to ED with shortness of breath and wheezing. Recently had COPD exacerbation from influenza A on 10 December and was dischargedon prednisone. Patient did not take prednisone. No fever. Lost 12 pounds in the past couple weeks. 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 He is on scheduled and rescue inhaler. Patient has been using oxygen only for last 1 day prior to admission. Not chronically on O2. History of diagnosed COPD. Started smoking at the age of 17-18 and quit about 18 years ago therefore 36 pack years of total smoking. Feels chest tightness and cough with sputum production mainly thick greenish-yellow. No fever Acute on chronic hypoxic respiratory failure: Patient was brought by EMS in respiratory distress, labored breathing, tachypneic, dyspnea at rest with wheezing requiring 6 L of oxygen more than baseline currently on 3 to 4 L of oxygen at home. Pneumonia most likely due to multiple organisms including Enterobacter cloacae, Acinetobacter and haemophilus influenza: * May have been secondary to his recent influenza infection. * Check urinary antigens restart colchicine Legionella. Check sputum culture. * Antibiotics with ceftriaxone and azithromycin. Pulmonary toilet. 12/17:Leukocytosis improving. Subjectively patient feels improvement in shortness of breath still has chest tightness and decreased air entry and wheezing. Continue nebulization IV steroid incentive spirometry and Pep. Urinary antigens are negative. Sputum culture pending. 12/18: Prelim sputum culture shows GNR LF,, GNR rare, Haemophilus influenzae 3+. Continue antibiotic. Patient is being managed on scheduled bronchodilator, IV Solu-Medrol, Mucinex, incentive spirometry and Pep. 12/19: Preliminary respiratory culture shows Enterobacter cloacae complex, Acinetobacter, Haemophilus influenzae possible fungus. Based on the above culture sensitivity patient discharged on levofloxacin for 5 more days. Acute COPD exacerbation * Continued bronchodilators * Methylprednisolone 12/19 for acute COPD exacerbation resolved. Patient has regular albuterol and maintenance triple inhaler therefore advised to continue that. Discharged on tapering dose of prednisone and Mucinex DM and advised to continue incentive spirometry and PEP for 1 week Influenza A * Not a candidate for oseltamivir. Was not prescribed when he was here on the . Chronic conditions * Hypertension: Continue with amlodipine. VTE prophylaxis: Enoxaparin. CODE STATUS: Addressed with the patient. Patient was very full code. Medications at Discharge Home Medications albuterol sulfate 2.5 mg/3 mL (0.083 %) solution for nebulization 2.5 mg (3 mL) inhalation Q4H PRN breathing #25 vials 10/19/16 amlodipine 5 mg tablet 5 mg PO DAILY blood pressure 03/06/21 prednisone 20 mg tablet 40 mg (2 x 20 mg) PO DAILY for breathing #14 tabs 10/29/23 albuterol sulfate 2.5 mg/3 mL (0.083 %) solution for nebulization 2.5 mg (3 mL) inhalation Q4H PRN #25 vials 12/11/23 albuterol sulfate 90 mcg/actuation aerosol inhaler (ProAir HFA) 1 inh [id number] PRN shortness of breath or wheezing 12/17/23 alprazolam 0.25 mg tablet (Xanax) 0.25 mg PO QHS anxiety 12/17/23 garlic 1,000 mg capsule 1,000 mg PO DAILY general health 12/17/23 vitamin E 268 mg (400 unit) capsule 268 mg PO DAILY general health 12/17/23 dextromethorphan-guaifenesin 30 mg-600 mg tablet extended [id number] hr (Mucinex DM) 2 tab PO BID 7 days #28 tabs 12/20/23 levofloxacin 500 mg tablet 500 mg PO DAILY 5 days #5 tabs 12/20/23 melatonin 10 mg sublingual tablet 10 mg PO QHS PRN Insomnia 30 days #30 tabs 12/20/23 prednisone 10 mg tablet 10 mg PO DAILY #30 tabs 12/20/23 Physical Exam Narrative Seen and examined. Overall patient feels much improvement in shortness of breath and dyspnea and wheezing. Requires 2 L of oxygen on exertion. Physical exam Seen and examined General: Alert, Oriented x3, Cooperative HEENT: Atraumatic, PERRLA, EOMI, Normocephalic Oral: No Gingival or Mucosal Lesions/ Ulcerations Neck: Supple, No JVD, Negative Carotid Bruits Chest wall/Lungs: Air entry diminished in bilateral lung bases. Mild bilateral expiratory rhonchi. Dyspnea much improved Cardiovascular: Regular rate, Regular Rhythm, Normal S1, Normal S2, No M/G/R Abdomen: Bowel Sounds Present, Soft, Non Tender, Non-Distended : No dysuria. No renal angle tenderness. No suprapubic tenderness. Extremities: No edema, Capillary Refill Less than 3 Seconds Skin: No rashes, No breakdown Musculoskeletal: No Tenderness to Palpation of Joints or Extremities Neurological: Cranial nerves II-XII grossly intact, DTR 2+/4. No acute focal neurological deficit. Psych/Mental Status: Normal Affect, Appropriate. Medical Records Data Medical Nutrition Assessment Dietitian: Malnutrition Criteria Met Start: 12/18/23 15:05 Freq: Status: Active Protocol: Document 12/18/23 15:05 RMA (Rec: 12/18/23 15:06 RMA [id number]) Nutrition Malnutrition Evidence of Malnutrition Exists Yes Malnutrition (severe): Acute Illness/Injury Evidenced By Suboptimal Energy Intake ( Severe),Weight Loss (Severe) Clinical Problem Acute Disease or Injury Related Malnutrition Etiology severe protein-calorie malnutrition in the context of acute disease related to inadequate oral/energy intake and increased energy expenditure/COPD Signs/Symptoms as evidenced by ~9% unintentional weight loss in less than 2 months, BMI 20.0, PO meeting less than 50% estimated nutrition needs x past 1-2 months Status Active Problem Recommendation Dietitian Recommendations/Changes Continue liberalized regular diet to optimize oral intake at meals. Will add ensure compact TID w/ meals. Will add magic cup w/ lunch tray. Additional ONS as needed to support weight gain and replete energy/protein. Weight / BMI Weight Weight: 123 lb 14.397 oz Body Mass Index (BMI) 20.0 ABG / Lab / Microbiology Data 12/18/23 07:14 12/18/23 07:14 Microbiology: Microbiology 12/17/23 14:18 Sputum, Expectorated/Coughed Gram Stain - Final 12/17/23 14:18 Sputum, Expectorated/Coughed Respiratory Culture - Preliminary Enterobacter cloacae complex Acinetobacter Lwoffi Haemophilus influenzae Possible Fungus 12/17/23 14:07 Blood Culture (Wb) - Anticubital Right Blood Culture - Preliminary No growth in 48 hours. 12/17/23 14:05 Blood Culture (Wb) - Anticubital Left Blood Culture - Preliminary No growth in 48 hours. 12/17/23 15:14 Urine, Clean Catch Urine Culture - Final Culture exhibits no growth. 12/17/23 15:14 Urine, Random Legionella Antigen - Final 12/17/23 15:14 Urine, Random Streptococcus pneumoniae Antigen (M - Final D/C Instructions Discharge Diet: No restrictions Weight Bearing Status: Weight bearing as tolerated Call your doctor if you observe: Fever of 101 or Higher, Coldness, Increased Pain, Numbness or Tingling, Change in Color, Inability to urinate, Inability to have a bowel movement, Shortness of breath, Dizziness, Fainting spells, Swellingin the ankles, Chest pain, Prolonged hiccupping, Increased palpitations (irregular heartbeat) and Calf discomfort When: IN 2 WEEKS Meaningful Use Info Meaningful Use Meaningful Use Diagnoses (Choose all that apply): None applicable Ischemic Stroke Statin Dosing Therapy Reference: STATIN DOSE THERAPY REFERENCE: * Patients > 75 years receive moderate or high dose statin therapy. * Patients 75 years or YOUNGER should receive HIGH intensity statin dose unless contraindicated. You will be required to document reason for non-treatment if statin daily dose does not meet guidelines. HIGH DOSE STATIN THERAPY DAILY Atorvastatin > than or = to 40 mg Rosuvastatin > than or = to 20 mg Amlodipine + Atorvastatin > than or = to 2.5/40 mg Ezetimibe + Simvastatin 10/80 mg Simvastatin 80mg Discharge Plan Admission Admit Date/Time: 12/17/23 15:10 Primary Reason for Your Visit: Suspected pneumonia with acute COPD exacerbation Attending Provider: Fadi Lloyd Primary Care Provider: Jr Ryan Consulting Providers: Anirudh Thompson Discharge Orders/Prescriptions Prescriptions: New Mucinex DM 30-600 mg Tablet Extended Release 12 Hr 2 tab PO BID 7 Days Qty: 28 0RF melatonin 10 mg Tablet, Sublingual 10 mg PO QHS PRN (Reason: Insomnia) 30 Days Qty: 30 0RF prednisone 10 mg tablet 10 mg PO DAILY Qty: 30 0RF Rx Instructions: 40 mg for 3 days 30 mg for 3 days, 20 mg for 3 days,and 10 mg for 3 days levofloxacin 500 mg tablet 500 mg PO DAILY 5 Days Qty: 5 0RF Continued albuterol sulfate 2.5 MG/3 ML solution for nebulization 2.5 mg inhalation Q4H PRN Qty: 25 0RF Rx Instructions: Use q4 hours and PRN for wheezing amlodipine 5 mg tablet 5 mg PO DAILY Patient Comments: Take 1 tablet by mouth once daily. albuterol sulfate [ProAir HFA] 90 mcg/actuation HFA aerosol inhaler 1 inh inhalation Q6H PRN (Reason: shortness of breath or wheezing) vitamin E 268 mg (400 unit) capsule 268 mg PO DAILY garlic 1,000 mg capsule 1,000 mg PO DAILY alprazolam [Xanax] 0.25 mg tablet 0.25 mg PO QHS Patient Comments: takes 1.5 tabs prednisone 20 mg tablet 40 mg PO DAILY Qty: 14 0RF albuterol sulfate 2.5 mg /3 mL (0.083 %) solution for nebulization 2.5 mg inhalation Q4H PRN Qty: 25 0RF Rx Instructions: Use q4 hours and PRN for wheezing Referrals / Follow Up: Jr Ryan DO [Primary Care Provider] - Within 2 Weeks Donato Perez MD [Med Staff - Active Staff] - Within 2 Weeks Disposition Disposition (needs filled in before D/C Order can be placed): Home, Self Care Charges/Coding Visit Charges Inpatient E&M: 57348 Disch Hosp >30min 12/20/23 1358 <Electronically signed by Fadi Lloyd MD> Cosigner Signature (if applicable): CC: Dr. Jr Ryan DO; Dr. Fadi Lloyd MD~ Signed [facility] Work Phone: 1(256) 129-495104-26-2024 Discharge summary Author Fadi Lloyd [facility] December 20, 2023 1:51pm Note Date/Time December 20, 2023 1:4 4pm [facility] Medical Records Department [address] [place] [id number] Instructions for Home/Discharge Instructions 12/20/23 1110 MR#: [id number] Acct: [id number] Name: BEATRIS QUINN Rep #:[id number] : 1950 72 From: Fadi Willis PCP: Dr. Jr Ryan DO Status:ADM IN Discharge Instructions Diet Discharge Diet: No restrictions Activity Discharge Activity: Return to Normal Activity Weight Bearing Status: Weight bearing as tolerated Dressing / Incision Call your doctor if you observe: Fever of 101 or Higher, Coldness, Increased Pain, Numbness or Tingling, Change in Color, Inability to urinate, Inability to have a bowel movement, Shortness of breath, Dizziness, Fainting spells, Swellingin the ankles, Chest pain, Prolonged hiccupping, Increased palpitations (irregular heartbeat) and Calf discomfort Follow Up Care When: IN 2 WEEKS Test Results: Test results from this visit will be discussed in further detail at your follow- up appointment, if applicable. Discharge Plan Admission Admit Date/Time: 12/17/23 15:10 Primary Reason for Your Visit: Suspected pneumonia with acute COPD exacerbation Attending Provider: Fadi Lloyd Primary Care Provider: Jr Ryan Consulting Providers: Anirudh Thompson Discharge Orders/Prescriptions Prescriptions: New Mucinex DM 30-600 mg Tablet Extended Release 12 Hr 2 tab PO BID 7 Days Qty: 28 0RF melatonin 10 mg Tablet, Sublingual 10 mg PO QHS PRN (Reason: Insomnia) 30 Days Qty: 30 0RF prednisone 10 mg tablet 10 mg PO DAILY Qty: 30 0RF Rx Instructions: 40 mg for 3 days 30 mg for 3 days, 20 mg for 3 days,and 10 mg for 3 days cefdinir 300 mg capsule 300 mg PO BID 4 Days Qty: 8 0RF Continued albuterol sulfate 2.5 MG/3 ML solution for nebulization 2.5 mg inhalation Q4H PRN Qty: 25 0RF Rx Instructions: Use q4 hours and PRN for wheezing amlodipine 5 mg tablet 5 mg PO DAILY Patient Comments: Take 1 tablet by mouth once daily. albuterol sulfate [ProAir HFA] 90 mcg/actuation HFA aerosol inhaler 1 inh inhalation Q6H PRN (Reason: shortness of breath or wheezing) vitamin E 268 mg (400 unit) capsule 268 mg PO DAILY garlic 1,000 mg capsule 1,000 mg PO DAILY alprazolam [Xanax] 0.25 mg tablet 0.25 mg PO QHS Patient Comments: takes 1.5 tabs prednisone 20 mg tablet 40 mg PO DAILY Qty: 14 0RF albuterol sulfate 2.5 mg /3 mL (0.083 %) solution for nebulization 2.5 mg inhalation Q4H PRN Qty: 25 0RF Rx Instructions: Use q4 hours and PRN for wheezing Referrals / Follow Up: Jr Ryan DO [Primary Care Provider] - Within 2 Weeks Donato Perez MD [Med Staff - Active Staff] - Within 2 Weeks Disposition Disposition (needs filled in before D/C Order can be placed): Home, Self Care 12/20/23 1351<Electronically signed by Fadi Lloyd MD>Fadi Lloyd MD CC: Dr. Anirudh Thompson DO; Dr. Jr Ryan DO ~ Signed [facility] Work Phone: [phone]) 754-343604-25-2024 Progress note Author Fadi Lloyd [facility] December 19, 2023 2:54pm Note Date/Time December 19, 2023 7:3 3am [facility] Medical Records Department [address] [place] [address] Progress Note - Hospitalist 12/19/23 0731 MR#: [id number] Acct: [id number] Name: BEATRIS QUINN Rep #:[id number] : 1950 72 From: Fadi Willis PCP: Dr. Jr Ryan, DO Status:ADM IN Location: [facility] [id number] Reason for Visit Reason for Visit: Diagnoses Pneumonia, unspecified organism (12/17/23) Objective Data Objective Data Vital Signs: Vital Signs Temp Pulse Resp BP Pulse Ox O2 Del Method O2 Flow Rate 98.1 F 79 18 151/85 H 96 Nasal Cannula 2 12/19/23 05:37 12/19/23 05:37 12/19/23 05:37 12/19/23 05:37 12/19/23 05:40 12/19/23 05:40 12/19/23 05:40 Oxygen Flow Rate (L/min) 2 Oxygen Delivery Method Nasal Cannula Weight: 123 lb 14.397 oz Body Mass Index (BMI) 20.0 Intake & Output: Intake and Output for Last 24 Hours 12/17/23 12/18/23 12/19/23 23:59 23:59 23:59 Intake Total 1487.5 / 1787.5 905 / 905 200 / 200 Output Total 500 / 500 Balance 1487.5 / 1287.5 405 / 405 200 / 200 Medical Nutrition Assessment Dietitian: Malnutrition Criteria Met Start: 12/18/23 15:05 Freq: Status: Active Protocol: Document 12/18/23 15:05 RMA (Rec: 12/18/23 15:06 RMA [id number]) Nutrition Malnutrition Evidence of Malnutrition Exists Yes Malnutrition (severe): Acute Illness/Injury Evidenced By Suboptimal Energy Intake ( Severe),Weight Loss (Severe) Clinical Problem Acute Disease or Injury Related Malnutrition Etiology severe protein-calorie malnutrition in the context of acute disease related to inadequate oral/energy intake and increased energy expenditure/COPD Signs/Symptoms as evidenced by ~9% unintentional weight loss in less than 2 months, BMI 20.0, PO meeting less than 50% estimated nutrition needs x past 1-2 months Status Active Problem Recommendation Dietitian Recommendations/Changes Continue liberalized regular diet to optimize oral intake at meals. Will add ensure compact TID w/ meals. Will add magic cup w/ lunch tray. Additional ONS as needed to support weight gain and replete energy/protein. Lab / Micro Data 12/18/23 07:14 12/18/23 07:14 Labs: Laboratory Results - last 24 hr 12/18/23 07:14: WBC 16.2 H, RBC 5.25, Hgb 14.4, Hct 45.1, MCV 85.9, MCH 27.4, MCHC 31.9 L, RDW Std Deviation 44.6 H, RDW Coeff of Sherri 14.2, Plt Count 398, MPV9.7, Immature Gran % (Auto) 0.600, Neut % (Auto) 95.4 H, Lymph % (Auto) 1.9 L, Coos % (Auto) 2.0, Eos % (Auto) 0.0, Baso % (Auto) 0.1, Absolute Neuts (auto) 15.4 H, Absolute Lymphs (auto) 0.30 L, Nucleated RBC % 0, Sodium 136, Potassium 4.2, Chloride 96 L, Carbon Dioxide 35.0 H, Anion Gap 5, BUN 23 H, Creatinine 0.84, Estim Creat Clear Calc 63.19, Est GFR (MDRD) Af Amer 115, Est GFR (MDRD) Non-Af 95, BUN/Creatinine Ratio 27.4 H, Glucose 193 H, Calcium 9.2 Micro: Microbiology 12/17/23 14:18 Sputum, Expectorated/Coughed Gram Stain - Final 12/17/23 15:14 Urine, Random Legionella Antigen - Final 12/17/23 15:14 Urine, Random Streptococcus pneumoniae Antigen (M - Final Physical Exam Narrative Seen and examined. Overall patient feels improvement in shortness of breath and dyspnea and wheezing. Patient on walking the morning got short of breath/dyspnea on exertion and cough. Has mild chest congestion/feels like mucus in the chest Physical exam Seen and examined General: Alert, Oriented x3, Cooperative HEENT: Atraumatic, PERRLA, EOMI, Normocephalic Oral: No Gingival or Mucosal Lesions/ Ulcerations Neck: Supple, No JVD, Negative Carotid Bruits Chest wall/Lungs: Air entry diminished in bilateral lung bases. Bilateral wheezing improving Cardiovascular: Regular rate, Regular Rhythm, Normal S1, Normal S2, No M/G/R Abdomen: Bowel Sounds Present, Soft, Non Tender, Non-Distended : No dysuria. No renal angle tenderness. No suprapubic tenderness. Extremities: No edema, Capillary Refill Less than 3 Seconds Skin: No rashes, No breakdown Musculoskeletal: No Tenderness to Palpation of Joints or Extremities Neurological: Cranial nerves II-XII grossly intact, DTR 2+/4. No acute focal neurological deficit. Psych/Mental Status: Normal Affect, Appropriate. Assessment & Plan Assessment/Plan (1) Pneumonia: PLAN: Plan 72-year-old gentleman came to ED with shortness of breath and wheezing. Recently had COPD exacerbation from influenza A on 10 December and was discharged on prednisone. Patient did not take prednisone. No fever. Lost 12 pounds in the past couple weeks. 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 He is on scheduled and rescue inhaler. Patient has been using oxygen only for last 1 day prior to admission. Not chronically on O2. History of diagnosed COPD. Started smoking at the age of 17-18 and quit about 18 years ago therefore 36 pack years of total smoking. Feels chest tightness and cough with sputum production mainly thick greenish-yellow. No fever Acute on chronic hypoxic respiratory failure: Patient was brought by EMS in respiratory distress, labored breathing, tachypneic, dyspnea at rest with wheezing requiring 6 L of oxygen more than baseline currently on 3 to 4 L of oxygen at home. Suspected pneumococcal pneumonia * May have been secondary to his recent influenza infection. * Check urinary antigens restart colchicine Legionella. Check sputum culture. * Antibiotics with ceftriaxone and azithromycin. Pulmonary toilet. 12/17:Leukocytosis improving. Subjectively patient feels improvement in shortness of breath still has chest tightness and decreased air entry and wheezing. Continue nebulization IV steroid incentive spirometry and Pep. Urinary antigens are negative. Sputum culture pending. 12/18: Prelim sputum culture shows GNR LF,, GNR rare, Haemophilus influenzae 3+. Continue antibiotic. Patient is being managed on scheduled bronchodilator, IV Solu-Medrol, Mucinex, incentive spirometry and Pep. Acute COPD exacerbation * Continued bronchodilators * Methylprednisolone Influenza A * Not a candidate for oseltamivir. Was not prescribed when he was here on the . Chronic conditions * Hypertension: Continue with amlodipine. VTE prophylaxis: Enoxaparin. CODE STATUS: Addressed with the patient. Patient was very full code. Charges/Coding Visit Charges Inpatient E&M: 92595 Subs Hosp L2 12/19/23 3793 <Electronically signed by Fadi Lloyd MD> Cosigner Signature (if applicable): CC: ~ Signed [facility] Work Phone: [phone]) 535-303904-24-2024 Progress note Author Fadi Lloyd [facility] December 18, 2023 4:13pm Note Date/Time December 18, 2023 10: 24am [facility] Medical Records Department [address] [place] [address] Progress Note - Hospitalist 12/18/23 1021 MR#: [id number] Acct: [id number] Name: BEATRIS QUINN Rep #:[id number] : 1950 72 From: Fadi Willis PCP: Dr. Jr Ryan, DO Status:ADM IN Location: [facility] [id number] Reason for Visit Reason for Visit: Diagnoses Pneumonia, unspecified organism (12/17/23) Objective Data Objective Data Vital Signs: Vital Signs Temp Pulse Resp BP Pulse Ox O2 Del Method O2 Flow Rate 98.7 F 84 18 140/71 H 97 Nasal Cannula 2 12/18/23 08:44 12/18/23 08:44 12/18/23 08:44 12/18/23 08:44 12/18/23 08:44 12/18/23 08:56 12/18/23 08:56 Oxygen Flow Rate (L/min) 2 Oxygen Delivery Method Nasal Cannula Weight: 123 lb 14.397 oz Body Mass Index (BMI) 20.0 Intake & Output: Intake and Output for Last 24 Hours 12/16/23 12/17/23 12/18/23 23:59 23:59 23:59 Intake Total 1487.5 / 1787.5 450 / 450 Output Total 500 / 500 Balance 1487.5 / 1287.5 -50 / -50 Lab / Micro Data 12/18/23 07:14 12/18/23 07:14 Labs: Laboratory Results - last 24 hr 12/17/23 14:05: WBC 20.0 H, RBC 5.54, Hgb 15.3, Hct 47.9, MCV 86.5, MCH 27.6, MCHC 31.9 L, RDW Std Deviation 45.5 H, RDW Coeff of Sherri 14.2, Plt Count 385, MPV9.8, Immature Gran % (Auto) 0.700, Neut % (Auto) 85.9 H, Lymph % (Auto) 3.5 L, Coos % (Auto) 9.6, Eos % (Auto) 0.1, Baso % (Auto) 0.2, Absolute Neuts (auto) 17.2 H, Absolute Lymphs (auto) 0.69 L, Nucleated RBC % 0, Differential Comment COMMENT, Diff Path Review December, PT 13.0, INR 1.0, APTT 28.0, Sodium 138, Potassium 4.1, Chloride 97 L, Carbon Dioxide 37.0 H, Anion Gap 4 L, BUN 17, Creatinine 0.69 L, Estim Creat Clear Calc 68.47, Est GFR (MDRD) Af Amer 144, EstGFR (MDRD) Non-Af 119, BUN/Creatinine Ratio 24.5 H, Glucose 104, Lactic Acid 0.9, Calcium 9.1, Total Bilirubin 0.80, AST 18, ALT 18, Alkaline Phosphatase 86, Total Protein 7.1, Albumin 2.9 L, Globulin 4.2, Albumin/Globulin Ratio 0.7 L 12/17/23 15:14: Urine Color Yellow, Urine Clarity Clear, Urine pH 6.5, Ur Specific [place] 1.010, Urine Protein 30 H, Urine Glucose (UA) Normal, Urine Ketones 5 H, Urine Occult Blood 25 H, Urine Nitrite Negative, Urine Bilirubin Negative, Urine Urobilinogen Normal, Ur Leukocyte Esterase Negative, Urine RBC 0-5 SEEN, Urine WBC 0 SEEN, Ur Squamous Epith Cells 0 SEEN, Urine Bacteria 0 SEEN, Urine Mucus 0 SEEN 12/18/23 07:14: WBC 16.2 H, RBC 5.25, Hgb 14.4, Hct 45.1, MCV 85.9, MCH 27.4, MCHC 31.9 L, RDW Std Deviation 44.6 H, RDW Coeff of Sherri 14.2, Plt Count 398, MPV9.7, Immature Gran % (Auto) 0.600, Neut % (Auto) 95.4 H, Lymph % (Auto) 1.9 L, Coos % (Auto) 2.0, Eos % (Auto) 0.0, Baso % (Auto) 0.1, Absolute Neuts (auto) 15.4 H, Absolute Lymphs (auto) 0.30 L, Nucleated RBC % 0, Sodium 136, Potassium 4.2, Chloride 96 L, Carbon Dioxide 35.0 H, Anion Gap 5, BUN 23 H, Creatinine 0.84, Estim Creat Clear Calc 63.19, Est GFR (MDRD) Af Amer 115, Est GFR (MDRD) Non-Af 95, BUN/Creatinine Ratio 27.4 H, Glucose 193 H, Calcium 9.2 Micro: Microbiology 12/17/23 14:18 Sputum, Expectorated/Coughed Gram Stain - Final 12/17/23 15:14 Urine, Random Legionella Antigen - Final 12/17/23 15:14 Urine, Random Streptococcus pneumoniae Antigen (M - Final Radiography Diagnostic Testing: Radiology Impression Chest X-Ray 12/17/23 14:18 IMPRESSION: Hyperinflation. New bibasilar pulmonary infiltrates. Follow-up recommended. 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 He is on scheduled and rescue inhaler. Patient has been using oxygen only for last 1 dayprior to admission. Not chronically on O2. History of diagnosed COPD. Startedsmoking at the age of [age] and quit about 18 years ago therefore 36 pack years of total smoking. Feels chest tightness and cough with sputum production mainlythick greenish- yellow. No fever Physical exam Seen and examined General: Alert, Oriented x3, Cooperative HEENT: Atraumatic, PERRLA, EOMI, Normocephalic Oral: No Gingival or Mucosal Lesions/ Ulcerations Neck: Supple, No JVD, Negative Carotid Bruits Chest wall/Lungs: Air entry severely diminished in bilateral lung bases. Bilateral wheezing Cardiovascular: Regular rate, Regular Rhythm, Normal S1, Normal S2, No M/G/R Abdomen: Bowel Sounds Present, Soft, Non Tender, Non-Distended : No dysuria. No renal angle tenderness. No suprapubic tenderness. Extremities: No edema, Capillary Refill Less than 3 Seconds Skin: No rashes, No breakdown Musculoskeletal: No Tenderness to Palpation of Joints or Extremities Neurological: Cranial nerves II-XII grossly intact, DTR 2+/4. No acute focal neurological deficit. Psych/Mental Status: Normal Affect, Appropriate. Assessment & Plan Assessment/Plan (1) Pneumonia: PLAN: Plan 72-year-old gentleman came to ED with shortness of breath and wheezing. Recently had COPD exacerbation from influenza A on 10 December and was dischargedon prednisone. Patient did not take prednisone. No fever. Lost 12 pounds in the past couple weeks. Suspected pneumococcal pneumonia * May have been secondary to his recent influenza infection. * Check urinary antigens restart colchicine Legionella. Check sputum culture. * Antibiotics with ceftriaxone and azithromycin. Pulmonary toilet. 12/17:Leukocytosis improving. Subjectively patient feels improvement in shortness of breath still has chest tightness and decreased air entry and wheezing. Continue nebulization IV steroid incentive spirometry and Pep. Urinary antigens are negative. Sputum culture pending. Acute COPD exacerbation * Continued bronchodilators * Methylprednisolone Influenza A * Not a candidate for oseltamivir. Was not prescribed when he was here on the . Chronic conditions * Hypertension: Continue with amlodipine. VTE prophylaxis: Enoxaparin. CODE STATUS: Addressed with the patient. Patient was very full code. Microbiology Past 72 Hours 12/17/23 14:18 Sputum, Expectorated/Coughed Gram Stain - Final 12/17/23 15:14 Urine, Random Legionella Antigen - Final 12/17/23 15:14 Urine, Random Streptococcus pneumoniae Antigen (M - Final Laboratory Results 12/17/23 14:05: WBC 20.0 H, RBC 5.54, Hgb 15.3, Hct 47.9, MCV 86.5, MCH 27.6, MCHC 31.9 L, RDW Std Deviation 45.5 H, RDW Coeff of Sherri 14.2, Plt Count 385, MPV9.8, Immature Gran % (Auto) 0.700, Neut % (Auto) 85.9 H, Lymph % (Auto) 3.5 L, Coos % (Auto) 9.6, Eos % (Auto) 0.1, Baso % (Auto) 0.2, Absolute Neuts (auto) 17.2 H, Absolute Lymphs (auto) 0.69 L, Nucleated RBC % 0, Differential Comment COMMENT, Diff Path Review December foll, PT 13.0, INR 1.0, APTT 28.0, Sodium 138, Potassium 4.1, Chloride 97 L, Carbon Dioxide 37.0 H, Anion Gap 4 L, BUN 17, Creatinine 0.69 L, Estim Creat Clear Calc 68.47, Est GFR (MDRD) Af Amer 144, EstGFR (MDRD) Non-Af 119, BUN/Creatinine Ratio 24.5 H, Glucose 104, Lactic Acid 0.9, Calcium 9.1, Total Bilirubin 0.80, AST 18, ALT 18, Alkaline Phosphatase 86,Total Protein 7.1, Albumin 2.9 L, Globulin 4.2, Albumin/Globulin Ratio 0.7 L 12/17/23 15:14: Urine Color Yellow, Urine Clarity Clear, Urine pH 6.5, Ur Specific [place] 1.010, Urine Protein 30 H, Urine Glucose (UA) Normal, Urine Ketones 5 H, Urine Occult Blood 25 H, Urine Nitrite Negative, Urine Bilirubin Negative, Urine Urobilinogen Normal, Ur Leukocyte Esterase Negative, Urine RBC 0-5 SEEN, Urine WBC 0 SEEN, Ur Squamous Epith Cells 0 SEEN, Urine Bacteria 0 SEEN, Urine Mucus 0 SEEN 12/18/23 07:14: WBC 16.2 H, RBC 5.25, Hgb 14.4, Hct 45.1, MCV 85.9, MCH 27.4, MCHC 31.9 L, RDW Std Deviation 44.6 H, RDW Coeff of Sherri 14.2, Plt Count 398, MPV9.7, Immature Gran % (Auto) 0.600, Neut % (Auto) 95.4 H, Lymph % (Auto) 1.9 L, Coos % (Auto) 2.0, Eos % (Auto) 0.0, Baso % (Auto) 0.1, Absolute Neuts (auto) 15.4 H, Absolute Lymphs (auto) 0.30 L, Nucleated RBC % 0, Sodium 136, Potassium 4.2, Chloride 96 L, Carbon Dioxide 35.0 H, Anion Gap 5, BUN 23 H, Creatinine 0.84, Estim Creat Clear Calc 63.19, Est GFR (MDRD) Af Amer 115, Est GFR (MDRD) Non-Af 95, BUN/Creatinine Ratio 27.4 H, Glucose 193 H, Calcium 9.2 Charges/Coding Visit Charges Inpatient E&M: 52926 Subs Hosp L2 12/18/23 6583 <Electronically signed by Fadi Lloyd MD> Cosigner Signature (if applicable): CC: ~ Signed [facility] Work Phone: 1(879) 278-920704-23-2024 History and physical note Author Anirudh Thompson [facility] December 17, 2023 3:30pm Note Date/Time December 17, 2023 3:3 0pm [facility] Medical Records Department [address] [place] [address] H&P Exam - Hospitalist 12/17/23 1524 MR#: [id number] Acct: [id number] Name: BEATRIS QUINN Rep #:[id number] : 1950 72 From: Anirudh Thompson DO PCP: Dr. rJ Ryan DO Status:ADM IN Location: [facility] [id number] HPI - General General Date of Service: 12/17/23 Chief Complaint: Shortness of breath HPI Narrative BEATRIS QUINN, is a 72 M who presents with shortness of breath. Patient was seen onthe where he was diagnosed with COPD exacerbation exacerbated by influenza A. Patient was discharged with prednisone. Patient is chronically on oxygen anywhere from 3 to 4 L/min. Presents with just worsening shortness of breath and cough. Patient had a chest x-ray that showed bilateral infiltrates which was not present on the previous chest x-ray. Patient received bronchodilators, methylprednisolone and ceftriaxone azithromycin. [facility] Medical History COPD (chronic obstructive pulmonary disease) [place] (hard of hearing) Hypertension Home Medications albuterol sulfate 2.5 mg/3 mL (0.083 %) solution for nebulization 2.5 mg (3 mL) inhalation Q4H PRN #25 vials 10/19/16 [Rx Last Taken Unknown] amlodipine 5 mg tablet 5 mg PO DAILY 03/06/21 [History Last Taken Unknown] fluticasone furoate 200 mcg-vilanterol 25 mcg/dose inhalation powder (Breo Ellipta) 1 inh inhalation DAILY 03/06/21 [History Last Taken Unknown] prednisone 20 mg tablet 40 mg (2 x 20 mg) PO DAILY #14 tabs 10/29/23 [Rx Last Taken Unknown] prednisone 20 mg tablet 40 mg (2 x 20 mg) PO DAILY #14 tabs 10/29/23 [Rx Last Taken Unknown] albuterol sulfate 2.5 mg/3 mL (0.083 %) solution for nebulization 2.5 mg (3 mL) inhalation Q4H PRN #25 vials 12/11/23 [Rx Last Taken Unknown] prednisone 20 mg tablet 40 mg (2 x 20 mg) PO DAILY 7 days #14 tabs 12/11/23 [Rx Last Taken Unknown] Allergy/AdvReac Type Severity Reaction Status Date / Time No Known Allergies Allergy Verified 12/17/23 13:33 Surgical History History of replacement of both shoulder joints Social History (Updated 12/17/23 @ 15:[address] Anirudh Thompson DO) Smoking Status: Former smoker ROS ROS Narrative Has chest pain secondary to cough. All review of systems were negative except as mentioned above in the history of present illness and the other review of systems. Vital Signs Vital Signs Vital Signs: 12/17/23 13:26 12/17/23 13:31 12/17/23 13:34 Temperature 37.1 C 37.1 C Temperature Source Temporal Temporal Pulse Rate 106 H 106 H Respiratory Rate 28 H 28 H Respiratory Effort Short of Breath Labored Respiratory Depth Shallow Respiratory Pattern Tachypnea Blood Pressure 174/103 H 174/103 H Blood Pressure Mean 126 126 Pulse Ox 96 96 Oxygen Delivery Method Nasal Cannula Nasal Cannula Nasal Cannula Oxygen Flow Rate (L/min) 6 6 85 12/17/23 13:53 12/17/23 14:07 12/17/23 14:07 Temperature Temperature Source Pulse Rate 107 H Respiratory Rate 32 H Respiratory Effort Respiratory Depth Respiratory Pattern Tachypnea Blood Pressure Blood Pressure Mean Pulse Ox 99 Oxygen Delivery Method Room Air Nasal Cannula Oxygen Flow Rate (L/min) 4 12/17/23 14:24 12/17/23 14:31 12/17/23 15:00 Temperature 37.2 C 36.9 C Temperature Source Temporal Temporal Pulse Rate 112 H 116 H 104 H Respiratory Rate 22 H 24 H 22 H Respiratory Effort Respiratory Depth Respiratory Pattern Blood Pressure 162/96 H 178/97 H 162/101 H Blood Pressure Mean 118 124 121 Pulse Ox 96 96 97 Oxygen Delivery Method Room Air Nasal Cannula Nasal Cannula Oxygen Flow Rate (L/min) 3 3 Weight Weight: 58 kg Body Mass Index (BMI) 20.6 Physical Exam Const alert and no apparent distress Constitutional Narrative: Hard of hearing. No respiratory distress. No conversational dyspnea. General Appearance: cooperative HEENT normocephalic, head/scalp atraumatic and moist oral mucous membranes HEENT Narrative: Mallampati 1 Eyes Eyes Narrative: Glasses. No icterus Resp normal respiratory effort, no retractions, no use of accessory muscles and clearto auscultation bilaterally Cardio regular rate, regular rhythm, S1 normal heart sound and S2 normal heart sound GI normal to inspection, nondistended, normoactive bowel sounds, soft to palpation,non-tender and non-distended Extremity normal to inspection and full ROM Neuro Sensorium / Orientation: awake and alert Results Lab / Micro Data Attestation: I reviewed the patient's lab results. 12/17/23 14:05 12/17/23 14:05 Labs: Laboratory Results - last 24 hr 12/17/23 14:05: WBC 20.0 H, RBC 5.54, Hgb 15.3, Hct 47.9, MCV 86.5, MCH 27.6, MCHC 31.9 L, RDW Std Deviation 45.5 H, RDW Coeff of Sherri 14.2, Plt Count 385, MPV9.8, Immature Gran % (Auto) 0.700, Neut % (Auto) 85.9 H, Lymph % (Auto) 3.5 L, Coos % (Auto) 9.6, Eos % (Auto) 0.1, Baso % (Auto) 0.2, Absolute Neuts (auto) 17.2 H, Absolute Lymphs (auto) 0.69 L, Nucleated RBC % 0, Differential Comment COMMENT, Diff Path Review December, PT 13.0, INR 1.0, APTT 28.0, Sodium 138, Potassium 4.1, Chloride 97 L, Carbon Dioxide 37.0 H, Anion Gap 4 L, BUN 17, Creatinine 0.69 L, Estim Creat Clear Calc 68.47, Est GFR (MDRD) Af Amer 144, EstGFR (MDRD) Non-Af 119, BUN/Creatinine Ratio 24.5 H, Glucose 104, Lactic Acid 0.9, Calcium 9.1, Total Bilirubin 0.80, AST 18, ALT 18, Alkaline Phosphatase 86,Total Protein 7.1, Albumin 2.9 L, Globulin 4.2, Albumin/Globulin Ratio 0.7 L Imaging Chest x-ray personally viewed and showed bilateral infiltrates was new from chest x-ray on the Radiology Impression Chest X-Ray 12/17/23 14:18 IMPRESSION: Hyperinflation. New bibasilar pulmonary infiltrates. Follow-up recommended. Electronically Signed: Misbah Briscoe MD at 14:46 EDT Reading Location ID and State: [facility] / [place] , Service support , Assessment & Plan Assessment/Plan (1) Pneumonia: PLAN: Plan Suspected pneumococcal pneumonia * May have been secondary to his recent influenza infection. * Check urinary antigens restart colchicine Legionella. Check sputum culture. * Antibiotics with ceftriaxone and azithromycin. Pulmonary toilet. Acute COPD exacerbation * Continued bronchodilators * Methylprednisolone Influenza A * Not a candidate for oseltamivir. Was not prescribed when he was here on the . Chronic conditions * Hypertension: Continue with amlodipine. VTE prophylaxis: Enoxaparin. CODE STATUS: Addressed with the patient. Patient was very full code. Charges/Coding Visit Charges Inpatient E&M: 54873 Init Hosp 12/17/23 1530 <Electronically signed by Anirudh Thompson DO> Cosigner Signature (if applicable): CC: Dr. Anirudh Thompson DO; Dr. Jr Ryan DO~ Signed [facility] Work Phone: [phone]) 259-184604-23-2024 Discharge summary Author Migel Iqbal [facility] December 17, 2023 3:16pm Note Date/Time December 17, 2023 2:2 1pm [facility] Medical Records Department [address] [place] [address] Emergency Department Summary 12/17/23 MR#: [id number] Acct: [id number] Name: BEATRIS QUINN Eligio Rep #:[id number] : 1950 72 From: Migel Chen PCP: Dr. Jr Ryan DO Status:REG ER Location: ED HPI History of Present Illness Chief Complaint: Shortness of Breath Informant: patient, spouse/S.O. and EMS Narrative Narrative: 72-year-old Juan male presenting to the emergency room via EMS with a chief complaint of dyspnea. Patient was recently diagnosed with influenza A with COPDexacerbation on 10 December in the emergency department and discharged home on prednisone. Patient did not take the prednisone as he does not like the way it makes him feel. The patient has not had any fevers. He continues to note sputum production which she describes as dark and green. He has had increasing dyspnea and decreased appetite. He attempted to give aerosols at home. Patientwas noted to have significantly labored breathing and hypoxia for EMS. Because of his tachycardia no further aerosols were given. He has known COPD. He reports that he has lost approximately 12 pounds in the past couple weeks. [facility] Medical History COPD (chronic obstructive pulmonary disease) [place] (hard of hearing) Hypertension Home Medications albuterol sulfate 2.5 mg/3 mL (0.083 %) solution for nebulization 2.5 mg (3 mL) inhalation Q4H PRN #25 vials 10/19/16 [Rx Last Taken Unknown] amlodipine 5 mg tablet 5 mg PO DAILY 03/06/21 [History Last Taken Unknown] fluticasone furoate 200 mcg-vilanterol 25 mcg/dose inhalation powder (Breo Ellipta) 1 inh inhalation DAILY 03/06/21 [History Last Taken Unknown] prednisone 20 mg tablet 40 mg (2 x 20 mg) PO DAILY #14 tabs 10/29/23 [Rx Last Taken Unknown] prednisone 20 mg tablet 40 mg (2 x 20 mg) PO DAILY #14 tabs 10/29/23 [Rx Last Taken Unknown] albuterol sulfate 2.5 mg/3 mL (0.083 %) solution for nebulization 2.5 mg (3 mL) inhalation Q4H PRN #25 vials 12/11/23 [Rx Last Taken Unknown] prednisone 20 mg tablet 40 mg (2 x 20 mg) PO DAILY 7 days #14 tabs 12/11/23 [Rx Last Taken Unknown] Allergy/AdvReac Type Severity Reaction Status Date / Time No Known Allergies Allergy Verified 12/17/23 13:33 Surgical History History of replacement of both shoulder joints Social History Smoking Status: Never smoker ROS ROS ED Constitutional Constitutional ED: Reports chills and weight loss; Denies fever(s) Eyes Eyes: Denies change in vision or diplopia ENT ENT ED: Denies ear pain, rhinorrhea or sore throat Cardiovascular Cardiovascular: Denies chest pain, orthopnea, palpitations or racing heartbeat Respiratory/Chest Respiratory/Chest: Reports cough, dyspnea, dyspnea on exertion and sputum; Denies orthopnea Gastrointestinal Gastrointestinal: Denies abdominal pain, diarrhea, nausea or vomiting Genitourinary Genitourinary ED: Denies dysuria, hematuria or urinary frequency Musculoskeletal Musculoskeletal: Denies arthralgias or myalgias Integumentary Denies abscess or rash Neurologic Neurologic: Reports headache(s); Denies weakness Psychiatric Psychiatric: Denies anxiety, depression, suicidal ideation or suicidal thoughts Endocrine Endocrinology: Denies polydipsia, polyphagia or polyuria Allergic/Immunologic Allergic/Immunologic ED: Denies mouth swelling, tongue swelling or urticaria EXAM Physical Exam Const Vital Signs: 12/17/23 13:26 12/17/23 13:31 12/17/23 13:34 Temperature 98.7 F 98.7 F Temperature Source Temporal Temporal Pulse Rate 106 H 106 H Respiratory Rate 28 H 28 H Respiratory Effort Short of Breath Labored Respiratory Depth Shallow Respiratory Pattern Tachypnea Blood Pressure 174/103 H 174/103 H Blood Pressure Mean 126 126 Pulse Ox 96 96 Oxygen Delivery Method Nasal Cannula Nasal Cannula Nasal Cannula Oxygen Flow Rate (L/min) 6 6 85 12/17/23 13:53 12/17/23 14:07 12/17/23 14:07 Temperature Temperature Source Pulse Rate 107 H Respiratory Rate 32 H Respiratory Effort Respiratory Depth Respiratory Pattern Tachypnea Blood Pressure Blood Pressure Mean Pulse Ox 99 Oxygen Delivery Method Room Air Nasal Cannula Oxygen Flow Rate (L/min) 4 12/17/23 14:24 12/17/23 14:31 Temperature 98.9 F Temperature Source Temporal Pulse Rate 112 H 116 H Respiratory Rate 22 H 24 H Respiratory Effort Respiratory Depth Respiratory Pattern Blood Pressure 162/96 H 178/97 H Blood Pressure Mean 118 124 Pulse Ox 96 96 Oxygen Delivery Method Room Air Nasal Cannula Oxygen Flow Rate (L/min) 3 Positive well nourished and well developed General Appearance ED: well developed HEENT Reports normocephalic, head/scalp atraumatic and moist mucous membranes Eyes PERRL and EOMs intact bilaterally Neck no lymphadenopathy, supple and no JVD Resp Resp Narrative: Patient is tachypneic Auscultation: wheezes expiratory wheezes and diminished lung sounds Cardio regular rate, regular rhythm and no murmurs Rate: tachycardic GI normal to inspection, nondistended, normoactive bowel sounds and non-tender Palpation: soft Back/Spine no CVA tenderness and normal ROM Extremity normal to inspection General Extremety ED: Negative for edema General Extremity: Negative for edema Neuro oriented x3 and CN's II-XII intact bilaterally Sensorium / Orientation: alert Motor Exam: strength 5/5 throughout Psych mental status grossly normal Mood & Affect: Negative for depressed or tearful Skin no rashes or lesions noted and no wounds MDM MDM MDM Narrative Medical decision making narrative: Differential diagnosis includes but not limited to pneumonia COPD exacerbation viral syndrome dehydration ACS renal failure electrolyte abnormalities anemia patient received supplemental oxygen breathing treatments. My independent or potation of the chest x-ray is bibasilar infiltrates. White count of 20,000 platelet count 385 hemoglobin 15.3 INR 1.1 with a PTT of 28 CO2 at 37 anion gap of 4 creatinine 0.69 lactic acid 0.9 blood cultures were obtained. Patient received Rocephin and azithromycin. He also received a dose of Solu-Medrol and IV fluids. Plan will be admission into the hospital. History & Record Review Discussion w/independent historian: Patient and Family Additional record(s) reviewed:: Prior ED visit and Prior labs Lab Data Attestation: I reviewed the patient's lab results. Labs: Laboratory Results - last 24 hr 12/17/23 14:05 WBC 20.0 H RBC 5.54 Hgb 15.3 Hct 47.9 MCV 86.5 MCH 27.6 MCHC 31.9 L RDW Std Deviation 45.5 H RDW Coeff of Shreri 14.2 Plt Count 385 MPV 9.8 Immature Gran % (Auto) 0.700 Neut % (Auto) 85.9 H Lymph % (Auto) 3.5 L Coos % (Auto) 9.6 Eos % (Auto) 0.1 Baso % (Auto) 0.2 Absolute Neuts (auto) 17.2 H Absolute Lymphs (auto) 0.69 L Nucleated RBC % 0 Differential Comment COMMENT Diff Path Review May foll PT 13.0 INR 1.0 APTT 28.0 Sodium 138 Potassium 4.1 Chloride 97 L Carbon Dioxide 37.0 H Anion Gap 4 L BUN 17 Creatinine 0.69 L Estim Creat Clear Calc 68.47 Est GFR (MDRD) Af Amer 144 Est GFR (MDRD) Non-Af 119 BUN/Creatinine Ratio 24.5 H Glucose 104 Lactic Acid 0.9 Calcium 9.1 Total Bilirubin 0.80 AST 18 ALT 18 Alkaline Phosphatase 86 Total Protein 7.1 Albumin 2.9 L Globulin 4.2 Albumin/Globulin Ratio 0.7 L Radiography Diagnostic Testing: Clinical Impression(s) from Imaging Studies Chest X-Ray 12/17/23 14:18 IMPRESSION: Hyperinflation. New bibasilar pulmonary infiltrates. Follow-up recommended. Electronically Signed: Misbah Briscoe MD at 14:46 EDT , EKG Initial EKG: Attestation: I personally reviewed and interpreted this EKG as follows: Comments: Sinus tachycardia with a ventricular rate of 103 bpm. PACs noted. Discharge Plan Dx/Rx/DC Orders Clinical Impression: Acute hypoxemic respiratory failure, COPD exacerbation, Pneumonia Disposition Disposition: Acute Care Hospital [facility] What to do if you have Problems For any increased pain, shortness of breath, bleeding, nausea or vomiting, chestpain, or any unexpected problems, contact your Primary Care Provider. Call [facility] ([phone]) or report to the closest Emergency Room. Call 911 if necessary. 12/17/23 1516 <Electronically signed by Migel Iqbal DO> Cosigner Signature (if applicable): CC: Dr. Jr Ryan DO ~ Signed [facility] Work Phone: [phone]) 619-869804-23-2024 Discharge summary Author Migel Iqbal [facility] December 17, 2023 3:16pm Note Date/Time December 17, 2023 2:2 1pm [facility] Medical Records Department [address] [place] [address] Emergency Department Summary 12/17/23 MR#: [id number] Acct: [id number] Name: BEATRIS QUINN Rep #:[id number] : 1950 72 From: Migel Chen PCP: Dr. Jr Ryan DO Status:REG ER Location: ED HPI History of Present Illness Chief Complaint: Shortness of Breath Informant: patient, spouse/S.O. and EMS Narrative Narrative: 72-year-old Juan male presenting to the emergency room via EMS with a chief complaint of dyspnea. Patient was recently diagnosed with influenza A with COPDexacerbation on 10 December in the emergency department and discharged home on prednisone. Patient did not take the prednisone as he does not like the way it makes him feel. The patient has not had any fevers. He continues to note sputum production which she describes as dark and green. He has had increasing dyspnea and decreased appetite. He attempted to give aerosols at home. Patientwas noted to have significantly labored breathing and hypoxia for EMS. Because of his tachycardia no further aerosols were given. He has known COPD. He reports that he has lost approximately 12 pounds in the past couple weeks. [facility] Medical History COPD (chronic obstructive pulmonary disease) [place] (hard of hearing) Hypertension Home Medications albuterol sulfate 2.5 mg/3 mL (0.083 %) solution for nebulization 2.5 mg (3 mL) inhalation Q4H PRN #25 vials 10/19/16 [Rx Last Taken Unknown] amlodipine 5 mg tablet 5 mg PO DAILY 03/06/21 [History Last Taken Unknown] fluticasone furoate 200 mcg-vilanterol 25 mcg/dose inhalation powder (Breo Ellipta) 1 inh inhalation DAILY 03/06/21 [History Last Taken Unknown] prednisone 20 mg tablet 40 mg (2 x 20 mg) PO DAILY #14 tabs 10/29/23 [Rx Last Taken Unknown] prednisone 20 mg tablet 40 mg (2 x 20 mg) PO DAILY #14 tabs 10/29/23 [Rx Last Taken Unknown] albuterol sulfate 2.5 mg/3 mL (0.083 %) solution for nebulization 2.5 mg (3 mL) inhalation Q4H PRN #25 vials 12/11/23 [Rx Last Taken Unknown] prednisone 20 mg tablet 40 mg (2 x 20 mg) PO DAILY 7 days #14 tabs 12/11/23 [Rx Last Taken Unknown] Allergy/AdvReac Type Severity Reaction Status Date / Time No Known Allergies Allergy Verified 12/17/23 13:33 Surgical History History of replacement of both shoulder joints Social History Smoking Status: Never smoker ROS ROS ED Constitutional Constitutional ED: Reports chills and weight loss; Denies fever(s) Eyes Eyes: Denies change in vision or diplopia ENT ENT ED: Denies ear pain, rhinorrhea or sore throat Cardiovascular Cardiovascular: Denies chest pain, orthopnea, palpitations or racing heartbeat Respiratory/Chest Respiratory/Chest: Reports cough, dyspnea, dyspnea on exertion and sputum; Denies orthopnea Gastrointestinal Gastrointestinal: Denies abdominal pain, diarrhea, nausea or vomiting Genitourinary Genitourinary ED: Denies dysuria, hematuria or urinary frequency Musculoskeletal Musculoskeletal: Denies arthralgias or myalgias Integumentary Denies abscess or rash Neurologic Neurologic: Reports headache(s); Denies weakness Psychiatric Psychiatric: Denies anxiety, depression, suicidal ideation or suicidal thoughts Endocrine Endocrinology: Denies polydipsia, polyphagia or polyuria Allergic/Immunologic Allergic/Immunologic ED: Denies mouth swelling, tongue swelling or urticaria EXAM Physical Exam Const Vital Signs: 12/17/23 13:26 12/17/23 13:31 12/17/23 13:34 Temperature 98.7 F 98.7 F Temperature Source Temporal Temporal Pulse Rate 106 H 106 H Respiratory Rate 28 H 28 H Respiratory Effort Short of Breath Labored Respiratory Depth Shallow Respiratory Pattern Tachypnea Blood Pressure 174/103 H 174/103 H Blood Pressure Mean 126 126 Pulse Ox 96 96 Oxygen Delivery Method Nasal Cannula Nasal Cannula Nasal Cannula Oxygen Flow Rate (L/min) 6 6 85 12/17/23 13:53 12/17/23 14:07 12/17/23 14:07 Temperature Temperature Source Pulse Rate 107 H Respiratory Rate 32 H Respiratory Effort Respiratory Depth Respiratory Pattern Tachypnea Blood Pressure Blood Pressure Mean Pulse Ox 99 Oxygen Delivery Method Room Air Nasal Cannula Oxygen Flow Rate (L/min) 4 12/17/23 14:24 12/17/23 14:31 Temperature 98.9 F Temperature Source Temporal Pulse Rate 112 H 116 H Respiratory Rate 22 H 24 H Respiratory Effort Respiratory Depth Respiratory Pattern Blood Pressure 162/96 H 178/97 H Blood Pressure Mean 118 124 Pulse Ox 96 96 Oxygen Delivery Method Room Air Nasal Cannula Oxygen Flow Rate (L/min) 3 Positive well nourished and well developed General Appearance ED: well developed HEENT Reports normocephalic, head/scalp atraumatic and moist mucous membranes Eyes PERRL and EOMs intact bilaterally Neck no lymphadenopathy, supple and no JVD Resp Resp Narrative: Patient is tachypneic Auscultation: wheezes expiratory wheezes and diminished lung sounds Cardio regular rate, regular rhythm and no murmurs Rate: tachycardic GI normal to inspection, nondistended, normoactive bowel sounds and non-tender Palpation: soft Back/Spine no CVA tenderness and normal ROM Extremity normal to inspection General Extremety ED: Negative for edema General Extremity: Negative for edema Neuro oriented x3 and CN's II-XII intact bilaterally Sensorium / Orientation: alert Motor Exam: strength 5/5 throughout Psych mental status grossly normal Mood & Affect: Negative for depressed or tearful Skin no rashes or lesions noted and no wounds MDM MDM MDM Narrative Medical decision making narrative: Differential diagnosis includes but not limited to pneumonia COPD exacerbation viral syndrome dehydration ACS renal failure electrolyte abnormalities anemia patient received supplemental oxygen breathing treatments. My independent or potation of the chest x-ray is bibasilar infiltrates. White count of 20,000 platelet count 385 hemoglobin 15.3 INR 1.1 with a PTT of 28 CO2 at 37 anion gap of 4 creatinine 0.69 lactic acid 0.9 blood cultures were obtained. Patient received Rocephin and azithromycin. He also received a dose of Solu-Medrol and IV fluids. Plan will be admission into the hospital. History & Record Review Discussion w/independent historian: Patient and Family Additional record(s) reviewed:: Prior ED visit and Prior labs Lab Data Attestation: I reviewed the patient's lab results. Labs: Laboratory Results - last 24 hr 12/17/23 14:05 WBC 20.0 H RBC 5.54 Hgb 15.3 Hct 47.9 MCV 86.5 MCH 27.6 MCHC 31.9 L RDW Std Deviation 45.5 H RDW Coeff of Sherri 14.2 Plt Count 385 MPV 9.8 Immature Gran % (Auto) 0.700 Neut % (Auto) 85.9 H Lymph % (Auto) 3.5 L Coos % (Auto) 9.6 Eos % (Auto) 0.1 Baso % (Auto) 0.2 Absolute Neuts (auto) 17.2 H Absolute Lymphs (auto) 0.69 L Nucleated RBC % 0 Differential Comment COMMENT Diff Path Review May foll PT 13.0 INR 1.0 APTT 28.0 Sodium 138 Potassium 4.1 Chloride 97 L Carbon Dioxide 37.0 H Anion Gap 4 L BUN 17 Creatinine 0.69 L Estim Creat Clear Calc 68.47 Est GFR (MDRD) Af Amer 144 Est GFR (MDRD) Non-Af 119 BUN/Creatinine Ratio 24.5 H Glucose 104 Lactic Acid 0.9 Calcium 9.1 Total Bilirubin 0.80 AST 18 ALT 18 Alkaline Phosphatase 86 Total Protein 7.1 Albumin 2.9 L Globulin 4.2 Albumin/Globulin Ratio 0.7 L Radiography Diagnostic Testing: Clinical Impression(s) from Imaging Studies Chest X-Ray 12/17/23 14:18 IMPRESSION: Hyperinflation. New bibasilar pulmonary infiltrates. Follow-up recommended. Electronically Signed: Misbah Briscoe MD at 14:46 EDT , EKG Initial EKG: Attestation: I personally reviewed and interpreted this EKG as follows: Comments: Sinus tachycardia with a ventricular rate of 103 bpm. PACs noted. Discharge Plan Dx/Rx/DC Orders Clinical Impression: Acute hypoxemic respiratory failure, COPD exacerbation, Pneumonia Disposition Disposition: Acute Care Hospital [facility] What to do if you have Problems For any increased pain, shortness of breath, bleeding, nausea or vomiting, chestpain, or any unexpected problems, contact your Primary Care Provider. Call [facility] ([phone]) or report to the closest Emergency Room. Call 911 if necessary. 12/17/23 1295 <Electronically signed by Migel Iqbal DO> Cosigner Signature (if applicable): CC: Dr. 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 Continue your albuterol. Start your steroid burst tomorrow as you have been given a loading dose in the emergency department today.[facility] Work Phone: 1(272) 775-860511-14-2023 Discharge summary Author Jaleel Saul [facility] July 09, 2023 9:25am Note Date/Time July 09, 2023 7:25am [facility] Medical Records Department [address] [place] [address] Emergency Department Summary 07/09/23 MR#: [id number] Acct: [id number] Name: BEATRIS QUINN Rep #:[id number] : 1950 72 From: Jaleel Saul MD PCP: Dr. Jr Ryan, Status:REG ER Location: ED HPI History of Present Illness Chief Complaint: Shortness of Breath Informant: patient Narrative Narrative: Patient presents with increased wheezing. Patient states he has had breathing problems for 25 or 30 years. He has been diagnosed with COPD that is gotten worse over about 5 years. He is not on oxygen. He does take Trelegy. He also has albuterol. He states the last few days he has been coughing more. He is bringing up a little bit more sputum. But no blood. No chest pain. He has been wheezing more. He states he is not really more short of breath but the wheezing is definitely worse. Patient wants an x-ray. He wants a shot of antibiotics and a shot of steroids. He states the tablet steroids do not work for him. He is immune to them. [facility] Medical History COPD (chronic obstructive pulmonary disease) [place] (hard of hearing) Hypertension Home Medications albuterol sulfate 2.5 mg/3 mL (0.083 %) solution for nebulization 2.5 mg (3 mL) inhalation Q4H PRN #25 vials 10/19/16 [Rx Last Taken Unknown] amlodipine 5 mg tablet 5 mg PO DAILY 03/06/21 [History Last Taken Unknown] fluticasone furoate 200 mcg-vilanterol 25 mcg/dose inhalation powder (Breo Ellipta) 1 inh inhalation DAILY 03/06/21 [History Last Taken Unknown] hydrocodone-acetaminophen 5-325mg 5mg-325mg 1 tab PO Q6H PRN pain 3 days #10 tabs 05/01/21 [Rx Last Taken Unknown] sulfamethoxazole 800 mg-trimethoprim 160 mg tablet (Bactrim DS) 1 tab PO BID Check with primary doctor 08/26/22 [History Last Taken Unknown] acyclovir 400 mg tablet 400 mg PO TID 7 days #21 tabs 08/30/22 [Rx Last Taken Unknown] acyclovir 5 % topical ointment 1 applic topical TID 7 days #30 grams 08/30/22 [Rx Last Taken Unknown] cefdinir 300 mg capsule 300 mg PO BID 3 days #6 caps 08/30/22 [Rx Last Taken Unknown] guaifenesin 1,200 mg tablet, extended release 12 hr (Mucus Relief ER) 1,200 mg PO BID 7 days #14 tabs 08/30/22 [Rx Last Taken Unknown] prednisone 10 mg tablet See Taper PO DAILY #30 tabs 08/30/22 [Rx Last Taken Unknown] doxycycline monohydrate 100 mg capsule 100 mg PO BID #20 CAPSULES 07/09/23 [Rx Last Taken Unknown] Allergy/AdvReac Type Severity Reaction Status Date / Time No Known Allergies Allergy Verified 07/09/23 07:00 Surgical History History of replacement of both shoulder joints Social History Smoking Status: Never smoker ROS ROS ED ROS Narrative A complete review of systems was performed and is negative except as documented in the history of present illness. Some specific details below. Constitutional: No recent fevers or chills. No malaise. Patient states he doesnot feel sick at all. EYE: No discharge, visual complaints, or pain. ENT: No difficulty swallowing. No swelling. No pain. No reflux symptoms. CV: No chest pain or palpitations. Not syncopal or presyncopal. Respiratory: See history of present illness. GI: No abdominal pain. No nausea vomiting diarrhea. No blood in stool. He is eating fine with no nausea vomiting or decreased appetite. : No frequency dysuria or hematuria. Musculoskeletal: No recent trauma. No pains. No swelling. Skin: No rash. Nondiaphoretic. Neuro: No weakness or numbness. Endocrine: No polyuria or polydipsia. EXAM Physical Exam Narrative Exam Narrative: CONSTITUTIONAL: Patient is nontoxic in appearance. The patient looks comfortable. Work of breathing looks normal. He carries on a normal conversation. However, you can hear wheezes just in the room. HEENT: No notable trauma. Mucous membranes moist. No sinus tenderness. No indication of pain with swallowing. EYES: No conjunctival injection. No proptosis. No pallor. NECK:No JVD. No stridor. CARDIOVASCULAR: Regular rate. Regular rhythm. No notable murmur. No JVD. RESPIRATORY: No respiratory distress. Breathing is unlabored. Yet the patient does have diffuse wheezing. No rhonchi. No real coughing while I am in the room. Saturations are normal at 97% on room air showing no hypoxia. GASTROINTESTINAL: Not distended. Bowel sounds are normal. No tenderness. No guarding. No rebound. No palpable mass. No bruit is heard. GENITOURINARY: No tenderness over the bladder. No CVA tenderness. MUSCULOSKELETAL: Atraumatic. No peripheral edema. No cord. No tenderness along the deep venous system. No asymmetry. No distended veins. NEUROLOGICAL: Patient is alert and appropriate. No focal deficit noted. SKIN: No noted rashes. No diaphoresis. PSYCHIATRIC: Patient is calm. Mood is appropriate. Const Vital Signs: 07/09/23 07:01 07/09/23 07:08 07/09/23 07:09 Temperature 98.9 F Temperature Source Temporal Pulse Rate 65 59 L Respiratory Rate 16 17 Respiratory Effort Short of Breath Labored Respiratory Depth Normal Respiratory Pattern Normal Blood Pressure 157/77 H Blood Pressure Mean 103 Pulse Ox 94 97 Oxygen Delivery Method Room Air Room Air Room Air 07/09/23 07:37 Temperature Temperature Source Pulse Rate 57 L Respiratory Rate 16 Respiratory Effort Respiratory Depth Respiratory Pattern Normal Blood Pressure Blood Pressure Mean Pulse Ox Oxygen Delivery Method MDM MDM [facility] Narrative Medical decision making narrative: Patient is very specific about what he wants and does not want. He does not want oral steroids because he is immune to them. We agreed to give him a shot of Kenalog. He would also like a shot of antibiotics. I explained that we willuse antibiotic for adjunctive therapy but there is not a benefit to giving an initial shot of antibiotics we will have to continue that with oral anyway. He did agree to get a breathing treatment. He did agree to get an x-ray. Does notwant blood work at this time. My independent interpretation the patient's two-view chest x-ray shows flattening diaphragms and COPD changes but no sign of acute infiltrate. Final reading is pending now. Final reading did come back as hyperinflation and COPD. I went back to check the patient. He is talking with people in the room. He iscomfortable. Not short of breath. Saturations are running 95-97% on room air on the monitor. I no longer hear wheezing in the room. When I listen to his lungs there is still a little bit of end expiratory wheeze. But he is moving much better oxygen. He states he feels back to baseline. He feels the steroidsare really kicked in and helped him a lot. We discussed treatment. I explainedthat the he does have a change in the amount of sputum so we will initiate antibiotics even though his x-ray does not show pneumonia. He states he needs emerson of antibiotics. I explained that this does not really alter his outcome. But he does not feel he is getting treatment and cannot leave until he gets a shot of antibiotics therefore I will give him his first dose of doxycycline through an IV. He does not want Levaquin because he thinks that may have causeda problem before. We did discuss that this absorbs at about 94% and is equivalent to an IV dose but he is not sure about that. I explained that we will help the patient we will work within his requirements. He required IM steroids not orally. He requires an injection of antibiotics. But he is doing well and I think he is appropriate to go. Radiography Diagnostic Testing: Clinical Impression(s) from Imaging Studies Chest X-Ray 07/09/23 07:20 IMPRESSION: Hyperinflation and COPD. Electronically Signed: Misbah Briscoe MD at 9:08 EST , EKG Initial EKG: Comments: My independent interpretation of the patient's EKG shows a normal sinus rhythm. Overall rate of 60. No ectopy. No acute ST elevation or depression. ND interval, QRS duration and QTc normal Discharge Plan Triage Chief Complaint: Shortness of Breath ED Provider: Jaleel Saul Dx/Rx/DC Orders Clinical Impression: COPD exacerbation Instructions: ED COPD Flare Prescriptions: New doxycycline monohydrate 100 mg capsule 100 mg PO BID Qty: 20 0RF No Action albuterol sulfate 2.5 MG/3 ML solution for nebulization 2.5 mg inhalation Q4H PRN Qty: 25 0RF Rx Instructions: Use q4 hours and PRN for wheezing amlodipine 5 mg tablet 5 mg PO DAILY Patient Comments: Take 1 tablet by mouth once daily. fluticasone furoate-vilanterol [Breo Ellipta] 200-25 mcg/dose blister with device 1 inh INHALATION DAILY Patient Comments: INHALE 1 PUFF DAILY WITH GOOD ORAL CARE hydrocodone-acetaminophen 5-325 mg tablet 1 tab PO Q6H PRN (Reason: pain) 3 Days Qty: 10 0RF sulfamethoxazole-trimethoprim [Bactrim DS] 800-160 mg tablet 1 tab PO BID Mucus Relief ER 1,200 mg Tablet Extended Release 12hr 1,200 mg PO BID 7 Days Qty: 14 0RF prednisone 10 mg tablet See Taper PO DAILY Qty: 30 0RF Taper: Prednisone Taper 40 mg WITH BREAKFAST for 3 Days and 0 Hour 30 mg WITH BREAKFAST for 3 Days and 0 Hour 20 mg WITH BREAKFAST for 3 Days and 0 Hour 10 mg WITH BREAKFAST for 3 Days and 0 Hour cefdinir 300 mg capsule 300 mg PO BID 3 Days Qty: 6 0RF acyclovir 400 mg tablet 400 mg PO TID 7 Days Qty: 21 0RF acyclovir 5 % ointment 1 applic topical TID 7 Days Qty: 30 0RF Rx Instructions: apply to the affected areas on the lips Primary Care Provider: Jr Ryan Referrals: Jr Ryan, DO [Primary Care Provider] - 3-5 Days if not improving Disposition Disposition: Home, Self Care What to do if you have Problems For any increased pain, shortness of breath, bleeding, nausea or vomiting, chestpain, or any unexpected problems, contact your Primary Care Provider. Call [facility] ([phone]) or report to the closest Emergency Room. Call 911 if necessary. 07/09/23 4980 <Electronically signed by Jaleel Saul MD> Cosigner Signature (if applicable): CC: Dr. Jr Ryan DO ~ Signed [facility] Work Phone: [phone] 339-876812-29-2022 Note ORIGINAL EXAMINATION: ONE XRAY VIEW OF THE CHEST 08/23/2022 11:40 am COMPARISON: 06/20/2021. HISTORY: ORDERING SYSTEM PROVIDED HISTORY: Reason for Exam: Chest pain. FINDINGS: The cardiac and mediastinal contours are within normal limits. Mild atherosclerosis of the thoracic aorta is noted. Partially calcified mediastinal and hilar lymph nodes are suggestive of prior granulomatous disease. There is no appreciable pneumothorax, pleural effusion, or vascular congestion. No focal consolidations. Fairly advanced degenerative changes are noted of the shoulders bilaterally. Mild degenerative changes are present of the spine. IMPRESSION: 1. No evidence of acute cardiopulmonary process. Interpreted by: Ketan Mcbride DO Preliminary Report By: Ketan Mcbride DO Electronically signed By Ketan Mcbride DO Dictated Date: 08/23/2022 11:48:19 AM Prelim Date: 08/23/2022 11:49:31 AM Sign Date: 08/23/2022 11:49:31 AM Ordering Provider: [facility]12-29-2022 Note ORIGINAL EXAMINATION: ONE XRAY VIEW OF THE CHEST 08/23/2022 11:40 am COMPARISON: 06/20/2021. HISTORY: ORDERING SYSTEM PROVIDED HISTORY: Reason for Exam: Chest pain. FINDINGS: The cardiac and mediastinal contours are within normal limits. Mild atherosclerosis of the thoracic aorta is noted. Partially calcified mediastinal and hilar lymph nodes are suggestive of prior granulomatous disease. There is no appreciable pneumothorax, pleural effusion, or vascular congestion. No focal consolidations. Fairly advanced degenerative changes are noted of the shoulders bilaterally. Mild degenerative changes are present of the spine. IMPRESSION: 1. No evidence of acute cardiopulmonary process. Interpreted by: Ketan Mcbride DO Preliminary Report By: Ketan Mcbride DO Electronically signed By Ketan Mcbride DO Dictated Date: 08/23/2022 11:48:19 AM Prelim Date: 08/23/2022 11:49:31 AM Sign Date: 08/23/2022 11:49:31 AM Ordering Provider: [facility]10-26-2021 Hospital Discharge instructions Patient Education 06/20/2021 12:51:57 COVID-19 Prevent the Spread of COVID-19 If You Are Sick (01/12/2020)(CUSTOM) Prevent the Spread of COVID-19 If You Are Sick Accessible version: https://www.cdc.gov/coronavirus/2019-ncov/is-zlj-kma-sick/xppzh-bvhu-zyiz.html If you are sick with COVID-19 or think you might have COVID-19, follow the steps below to help protect other people in your home and community. Stay home except to get medical care. Stay home. Most people with COVID-19 have mild illness and are able to recover at home without medical care. Do not leave your home, except to get medical care. Do not visit public areas. Take care of yourself. Get rest and stay hydrated. Get medical care when needed. Call your doctor before you go to their office for care. But, if you have trouble breathing or other concerning symptoms, call 911 for immediate help. Avoid public transportation, ride-sharing, or taxis. Separate yourself from other people and pets in your home. As much as possible, stay in a specific room and away from other people and pets in your home. Also, you should use a separate bathroom, if available. If you need to be around other people or animalsin or outside of the home, wear a cloth face covering. See COVID-19 and Animals if you have questions about pets: https://www.cdc.gov/coronavirus/2019ncov/faq.html#HPXQZ16aolwkvy Monitor your symptoms. Common symptoms of COVID-19 include fever and cough. Trouble breathing is a more serious symptom that means you should get medical attention. Follow care instructions from your healthcare provider and local health department. Your local health authorities will give instructions on checking your symptoms and reporting information. If you develop emergency warning signs for COVID-19 get medical attention immediately. Emergency warning signs include*: Trouble breathing Persistent pain or pressure in the chest New confusion or not able to be woken Bluish lips or face *This list is not all inclusive. Please consult your medical provider for any other symptoms that are severe or concerning to you. Call 911 if you have a medical emergency. If you have a medical emergency and need to call 911, notify the tuber operator that you have or think you might have, COVID-19. If possible, put on a facemask before medical help arrives Call ahead before visiting your doctor. Call ahead. Many medical visits for routine care are being postponed or done by phone or telemedicine. If you have a medical appointment that cannot be postponed, call your doctor s office. This will help the office protect themselves and other patients. If you are sick, wear a cloth covering over your nose and mouth. You should wear a cloth face covering over your nose and mouth if you must be around other people or animals, including pets (even at home). You don t need to wear the cloth face covering if you are alone. If you can t put on a cloth face covering (because of trouble breathing for example), cover your coughs and sneezes in some other way.Try to stay at least 6 feet away from other people. This will help protect the people around you. Note: During the COVID-19 pandemic, medical grade facemasks are reserved for healthcare workers andsome first responders. You may need to make a cloth face covering using a scarf or bandana. Cover your coughs and sneezes. Cover your mouth and nose with a tissue when you cough or sneeze. Throw used tissues in a lined trash can. Immediately wash your hands with soap and water for at least 20 seconds. If soap and water are not available, clean your hands with an alcohol-based hand dye lab technician that contains at least 60% alcohol. Clean your hands often. Wash your hands often with soap and water for at least 20 seconds. This is especially important after blowing your nose, coughing, or sneezing; going to the bathroom; and before eating or preparing food. Use hand dye lab technician if soap and water are not available. Use an alcohol-based hand dye lab technician with atleast 60% alcohol, covering all surfaces of your hands and rubbing them together until they feel dry. Soap and water are the best option, especially if your hands are visibly dirty. \ Avoid touching your eyes, nose, and mouth with unwashed hands. Avoid sharing personal household items. Do not share dishes, drinking glasses, cups, eating utensils, towels, or bedding with other people in your home. Wash these items thoroughly after using them with soap and water or put them in the expense analyst. Clean all high-touch surfaces everyday. Clean and disinfect high-touch surfaces in your sick room and bathroom. Let someone else clean and disinfect surfaces in common areas, but not your bedroom and bathroom. If a caregiver or other person needs to clean and disinfect a sick person s bedroom or bathroom, they should do so on an as-needed basis. The caregiver/other person should wear a mask and wait as long as possible after the sick person has used the bathroom High-touch surfaces include phones, remote controls, counters, tabletops, doorknobs, bathroom fixtures, toilets, keyboards, tablets, and bedside tables. Clean and disinfect areas that may have blood, stool, or body fluids on them. Use household med spec and disinfectants. Clean the area or item with soap and water or another detergent if it is dirty. Then use a household disinfectant. Be sure to follow the instructions on the label to ensure safe and effective use of the product. Many products recommend keeping the surface wet for several minutes to ensure germs are killed. Many also recommend precautions such as wearing gloves and making sure you have good ventilation during use of the product. Most EPA-registered household disinfectants should be effective. How to discontinue home isolation. People with COVID-19 who have stayed home (home isolated) can stop home isolation under the following conditions: If you will not have a test to determine if you are still contagious, you can leave home after these three things have happened: You have had no fever for at least 72 hours (that is three full days of no fever without the use ofmedicine that reduces fevers) AND other symptoms have improved (for example, when your cough or shortness of breath has improved) AND at least 10 days have passed since your symptoms first appeared. If you will be tested to determine if you are still contagious, you can leave home after these three things have happened: You no longer have a fever (without the use of medicine that reduces fevers) AND other symptoms have improved (for example, when your cough or shortness of breath has improved) AND you received two negative tests in a row, 24 hours apart. Your doctor will follow CDC guidelines. In all cases, follow the guidance of your healthcare provider and local health department. The decision to stop home isolation should be made in consultation with your healthcare provider and state and local health departments. Local decisions depend on local circumstances. cdc.gov/coronavirus Follow Up Care 06/20/2021 11:19:11 With:RADHA STAHL III, MD Address: [address] [place] [phone] When:2-4 days [facility] Consult note Author Lawrence Hernandez [facility] December 20, 2023 3:37pm Note Date/Time December 20, 2023 3:3 7pm [facility] Medical Records Department [address] [place], [place] [address] [address] Counseling Note - Pharmacy 12/20/23 1537 MR#: [id number] Acct: [id number] Name: BEATRIS QUINN Rep #:[id number] : 1950 72 From: Lawrence Hernandez PCP: Dr. Jr Ryan, DO Status:ADM IN Y Location: [facility] [id number] Pharmacy [place] Med Reconciliation Pharmacy Service has performed discharge medication reconciliation for this patient. The patient's discharge medication list was reviewed for discrepancies and discrepancies were resolved. Medications at Discharge Home Medications albuterol sulfate 2.5 mg/3 mL (0.083 %) solution for nebulization 2.5 mg (3 mL) inhalation Q4H PRN breathing #25 vials 10/19/16 amlodipine 5 mg tablet 5 mg PO DAILY blood pressure 03/06/21 prednisone 20 mg tablet 40 mg (2 x 20 mg) PO DAILY for breathing #14 tabs 10/29/23 albuterol sulfate 2.5 mg/3 mL (0.083 %) solution for nebulization 2.5 mg (3 mL) inhalation Q4H PRN #25 vials 12/11/23 albuterol sulfate 90 mcg/actuation aerosol inhaler (ProAir HFA) 1 inh [id number] PRN shortness of breath or wheezing 12/17/23 alprazolam 0.25 mg tablet (Xanax) 0.25 mg PO QHS anxiety 12/17/23 garlic 1,000 mg capsule 1,000 mg PO DAILY general health 12/17/23 vitamin E 268 mg (400 unit) capsule 268 mg PO DAILY [facility] health 12/17/23 dextromethorphan-guaifenesin 30 mg-600 mg tablet extended [id number] hr (Mucinex DM) 2 tab PO BID 7 days #28 tabs 12/20/23 levofloxacin 500 mg tablet 500 mg PO DAILY 5 days #5 tabs 12/20/23 melatonin 10 mg sublingual tablet 10 mg PO QHS PRN Insomnia 30 days #30 tabs 12/20/23 prednisone 10 mg tablet 10 mg PO DAILY #30 tabs 12/20/23 12/20/23 1537 <Electronically signed by Lawrence verde> Date _ Lawrence Duffyignyael Signature (if applicable): Date CC: ~ Signed [facility] Work Phone: Consult note Author Niurka Quinn [facility] Note Date/Time December 02, 2024 4:33 pm [facility] Medical Records Department [address] [facility] [place] [address] Counseling Note - Pharmacy 12/02/24 1632 MR#: [id number] Acct: [id number] Name: BEATRIS QUINN Eligio Rep #:[id number] : 1950 73 From: Niurka Quinn PCP: VIVEK Yañez Status:AD M IN Y Location: [place] [id number] Pharmacy Service has performed discharge medication reconciliation and counseling for this patient. 1. AUGMENTIN 875 PO BID X 5 DAYS 2. PREDNISONE 40MG PO DAILY X 5 DAYS The patient's discharge medication list was reviewed for discrepancies and discrepancies were resolved. The patient was counseled on the following discharge medications and changes in medications for homegoing were reviewed. The Reason for Use, instructions for use, and potential side effects were reviewed for all new medications. The patient's questions regarding all of their medications were answered. The patient was able to verbally demonstrate an understanding of their dischargemedications. Medications at Discharge Home Medications amlodipine 5 mg tablet 5 mg PO DAILY blood pressure 03/06/21 albuterol sulfate 2.5 mg/3 mL (0.083 %) solution for nebulization 2.5 mg (3 mL) inhalation Q4H PRN #25 vials 12/11/23 garlic 1,000 mg capsule 1,000 mg PO DAILY general health 12/17/23 vitamin E 268 mg (400 unit) capsule 268 mg PO DAILY general health 12/17/23 alprazolam 0.25 mg tablet (Xanax) 0.375 mg PO QHS anxiety 02/28/24 fluticasone fur. 100 mcg-umeclid 62.5 mcg-vilant 25 mcg inhalat.powder (Trelegy Ellipta) 1 inh inhalation DAILY 02/28/24 albuterol sulfate 90 mcg/actuation aerosol inhaler 1 inh inhalation Q6H PRN shortness of breath or wheezing 12/01/24 amoxicillin 875 mg-potassium clavulanate 125 mg tablet 1 tab PO BID #10 tabs 12/02/24 prednisone 20 mg tablet 40 mg (2 x 20 mg) PO DAILY #10 tabs 12/02/24 12/02/24 1633 <Electronically signed by Niurka Quinn> Date _ Niurka Quinn Cosigner Signature (if applicable): Date CC: ~ Signed [facility] Work Phone: Consult note Author Niurka Quinn [facility] Note Date/Time June 02, 2025 12 :30pm [facility] Medical Records Department [address] [place] [address] Counseling Note - Pharmacy 06/02/25 1228 MR#: [id number] Acct: [id number] Name: BEATRIS QUINN Rep #:[id number] : 1950 74 From: Niurka Quinn PCP: VIVEK Yañez Status:AD M IN Location: [facility] [id number] Pharmacy [facility] Counseling Pharmacy Service has performed discharge medication reconciliation and counseling for this patient. 1. GUAIFENESIN 1200MG PO BID 2. LEVOFLOXACIN 750MG PO QHS X 5 DAYS 3. PREDNISONE 40MG PO DAILY X 3 DAYS, THEN 30MG X 3 DAYS, THEN 20MG X 3 DAYS, THEN 10MG X 3 DAYS. RESUME PRN PREDNISONE ONCE FINISHED The patient's discharge medication list was reviewed for discrepancies and discrepancies were resolved. The patient was counseled on the following discharge medications and changes in medications for homegoing were reviewed. The Reason for Use, instructions for use, and potential side effects were reviewed for all new medications. The patient's questions regarding all of their medications were answered. The patient was able to verbally demonstrate an understanding of their dischargemedications. Medications at Discharge Home Medications amlodipine 5 mg tablet 5 mg PO DAILY blood pressure 03/06/21 albuterol sulfate 2.5 mg/3 mL (0.083 %) solution for nebulization 2.5 mg (3 mL) inhalation Q4H PRN #25 vials 12/11/23 garlic 1,000 mg capsule 1,000 mg PO DAILY general health 12/17/23 vitamin E 268 mg (400 unit) capsule 268 mg PO DAILY blood clot prevention 12/17/23 alprazolam 0.25 mg tablet (Xanax) 0.375 mg PO QHS anxiety 02/28/24 fluticasone fur. 100 mcg-umeclid 62.5 mcg-vilant 25 mcg inhalat.powder (Trelegy Ellipta) 1 inh inhalation DAILY 02/28/24 albuterol sulfate 90 mcg/actuation aerosol inhaler 1 inh inhalation Q6H PRN shortness of breath or wheezing 12/01/24 prednisone 5 mg tablet 5 mg PO DAILY PRN sob 06/01/25 Held on 06/02/25. Instructions: hold until off prednisone guaifenesin 1,200 mg tablet, extended release 12 hr (Mucus Relief ER) 1,200 mg PO BID #0 tabs 06/02/25 levofloxacin 750 mg tablet 750 mg PO DAILY #5 tabs 06/02/25 prednisone 10 mg tablet 10 mg PO DAILY #30 tabs 06/02/25 06/02/25 1230 <Electronically signed by Niurka Quinn> Date _ Niurka Quinn Cosigner Signature (if applicable): Date CC: ~ Signed [facility] Work Phone: Discharge summary Author Todd Valdovinos [facility] Note Date/Time December 01, 2024 8:00 am [facility] Medical Records Department [address] [place] [address] Emergency Department Summary 12/01/24 MR#: [id number] Acct: [id number] Name: BEATRIS QUINN Rep #:[id number] : 1950 73 From: Todd Valdovinos DO PCP: Dr. Jr Ryan DO Status:REG ER Location: ED HPI History of Present Illness Chief Complaint: Shortness of Breath Informant: patient and spouse/S.O. Narrative Narrative: Patient is a 73-year-old male with history of hypertension and COPD. He states that he quit smoking roughly 20 years ago. He reports he has a oxygen concentrator at home but does not need to wear this as his pulse ox is typically mid 90s on room air. However in the last 1 to 2 days he has been having increased cough and shortness of breath. He states that it is worse with exertion. He denies any fevers or known sick contacts but with his shortness of breath persisting he has concern for potential infection and therefore comes in for evaluation. Patient does state the last time he felt this way he needed admitted secondary to pneumonia and influenza which was roughly 1 year ago [facility] Medical History Aortic stenosis Elevated coronary artery calcium score Urinary retention Heart murmur Anxiety On home oxygen therapy Acute hypoxemic respiratory failure Pneumonia COPD (chronic obstructive pulmonary disease) [place] (hard of hearing) Hypertension Home Medications ?Medication ?Instructions ?Recorded ?Last Taken ?Type amlodipine 5 mg tablet 5 mg PO DAILY blood pressure 03/06/21 03/02/24 History albuterol sulfate 2.5 mg/3 mL 2.5 mg (3 mL) inhalation Q4H PRN 12/11/23 Unknown Rx (0.083 %) solution for nebulization #25 vials garlic 1,000 mg capsule 1,000 mg PO DAILY general he alth 12/17/23 Unknown History vitamin E 268 mg (400 unit) capsule 268 mg PO DAILY [facility] 12/17/23 Unknown History alprazolam 0.25 mg tablet (Xanax) 0.375 mg PO QHS anxi ety 02/28/24 Unknown History fluticasone fur. 100 mcg-umeclid 1 inh inhalation SUDHAKAR Y 02/28/24 Unknown History 62.5 mcg-vilant 25 mcg inhalat.powder (Trelegy Ellipta) prednisone 20 mg tablet 40 mg PO DAILY PRN sob 03/0203/02/24 History albuterol sulfate 90 mcg/actuation 1 inh inhalation Q6 H PRN shortness 12/01/24 Unknown History aerosol inhaler of breath or wheezing Allergy/AdvReac Type Severity Reaction Status Date / Time No Known Allergies Allergy Verified 12/01/24 06:21 Surgical History Hx of hernia repair History of replacement of both shoulder joints Social History Smoking Status: Former smoker ROS ROS ED Constitutional Constitutional ED: Denies chills or fever(s) Eyes Eyes: Denies blurry vision or change in vision ENT ENT ED: Denies rhinorrhea or sore throat Cardiovascular Cardiovascular: Denies chest pain Respiratory/Chest Respiratory/Chest: Reports cough, dyspnea and dyspnea on exertion Gastrointestinal Gastrointestinal: Denies abdominal pain, diarrhea, nausea or vomiting Genitourinary Genitourinary ED: Denies dysuria Musculoskeletal Musculoskeletal: Denies back pain or myalgias Integumentary Denies rash Neurologic Neurologic: Denies headache(s) Hematologic/Lymphatic Hematologic/Lymphatic: Denies easy bleeding or easy bruising Allergic/Immunologic Allergic/Immunologic ED: Denies mouth swelling or tongue swelling EXAM Physical Exam Const Vital Signs: 12/01/24 06:21 12/01/24 06:26 12/01/24 06:27 Temperature 97.8 F 97.8 F Temperature Source Oral Oral Pulse Rate 89 83 83 Respiratory Rate 22 H 27 H Respiratory Effort Respiratory Pattern Blood Pressure 192/91 H 192/91 H Blood Pressure Mean 124 124 Pulse Ox 78 98 97 Oxygen Delivery Method Room Air Nasal Cannula Nasal Cannula Oxygen Flow Rate (L/min) 2 2 12/01/24 06:32 12/01/24 06:59 12/01/24 06:59 Temperature Temperature Source Pulse Rate 75 Respiratory Rate 20 H Respiratory Effort Short of Breath Respiratory Pattern Tachypnea Normal Blood Pressure Blood Pressure Mean Pulse Ox 98 Oxygen Delivery Method Nasal Cannula Nasal Cannula Oxygen Flow Rate (L/min) 2 2 12/01/24 07:11 Temperature Temperature Source Pulse Rate Respiratory Rate Respiratory Effort Respiratory Pattern Blood Pressure Blood Pressure Mean Pulse Ox 99 Oxygen Delivery Method Room Air Oxygen Flow Rate (L/min) Positive well nourished and well developed General Appearance ED: well developed; Negative for pallor HEENT HEENT Narrative: No tongue or lip swelling no oral lesions no airway edema or compromise No secondary findings in the posterior pharynx to suggest infection Eyes PERRL and EOMs intact bilaterally General Eye ED: Negative for pale conjunctiva or scleral icterus Neck supple and no JVD Chest Wall palpation of chest normal Chest Narrative: No bony deformity or subcutaneous emphysema noted Resp Resp Narrative: Patient is tachypneic with mild accessory muscle use Breath sounds are severely diminished throughout with diffuse inspiratory and expiratory wheezing Cardio regular rate and regular rhythm Rate: other Other Details: Radial and carotid pulses are equal and symmetric GI normal to inspection, nondistended, normoactive bowel sounds, non-tender, non-distended and no masses Auscultation: normoactive bowel sounds Palpation: soft Extremity normal to inspection Extremity Narrative: No asymmetric edema no pitting edema negative Homans' sign bilaterally Neuro oriented x3, CN's II-XII intact bilaterally and no sensory deficits noted Sensorium / Orientation: alert Motor Exam: strength 5/5 throughout Psych mental status grossly normal Skin no rashes or lesions noted General Skin Exam: Negative for jaundice or pallor MDM MDM MDM Narrative Medical decision making narrative: Patient arrived to the ER hypertensive but has a past medical history of this. He also arrived in mild to moderate respiratory distress with tachypnea and accessory muscle use and his pulse ox on room air was 78%. He states that despite having a concentrator at home he does not typically need it and his pulse ox at baseline is mid 90s. With his report of cough and increased shortness of breath over the last 1 to 2 days there is concern for COPD exacerbation secondary to influenza versus RSV versus COVID versus potential pneumonia or congestive heart failure or pneumothorax. Patient also could have hypoxia from acute blood loss anemia or acute kidney injury or severe electrolyte abnormality. Basic blood work is obtained and shows leukocytosis at13 with left shift. The remainder of his labs revealed no clinically significant findings. Chest x-ray shows changes concerning for developing rightlower lobe pneumonia. The patient was given 125 mg of Solu-Medrol as well as 2 DuoNeb and 1 albuterol treatment based on his history and physical exam. After doing so he had significant improvement of his air movement and breath sounds did improve but they remained both inspiratory and expiratory wheezing diffusely. His room air pulse ox improved from 78% to 90. However he still hadincreased work of breathing when not on oxygen. Therefore he is placed on 1 to 2 L nasal cannula to help prevent hypoxia. At this time there is concern that his symptoms will worsen over the next few days as he is early in his disease process. I also have concern that his hypoxia will rebound/worsen once the medications wear off. Therefore I feel his safest option is admission to the hospital for continued IV steroids as well as nebulizer treatment and antibiotics. The case was discussed with the hospitalist who agrees to accept the patient at this time for continued care. This plan of care was discussed with the patient and and they are agreeable to it History & Record Review Discussion w/independent historian: Patient and Significant other Lab Data Attestation: I reviewed the patient's lab results. Labs: Laboratory Results - last 24 hr 12/01/24 06:35 WBC 13.3 H RBC 4.74 Hgb 13.7 Hct 41.4 MCV 87.3 MCH 28.9 MCHC 33.1 RDW Std Deviation 45.2 H RDW Coeff of Sherri 14.1 Plt Count 313 MPV 9.3 Immature Gran % (Auto) 0.600 Neut % (Auto) 91.1 H Lymph % (Auto) 3.0 L Coos % (Auto) 5.1 Eos % (Auto) 0.0 Baso % (Auto) 0.2 Absolute Neuts (auto) 12.1 H Absolute Lymphs (auto) 0.40 L Nucleated RBC % 0 Sodium 139 Potassium 4.2 Chloride 100 Carbon Dioxide 26.8 Anion Gap 12 BUN 17 Creatinine 0.93 Estim Creat Clear Calc 57.13 Est GFR (MDRD) Non-Af 87 BUN/Creatinine Ratio 18.4 Glucose 229 H Calcium 9.4 Magnesium 2.0 Radiography Diagnostic Testing: Clinical Impression(s) from Imaging Studies Chest X-Ray 12/01/24 07:22 IMPRESSION: Findings consistent with pulmonary emphysema/COPD. Patchy infiltrates at the right lower and left mid lung zones may represent confluent areas of scarring versus infectious process. Recommend follow-up until resolution. Reading Location: [facility] Chest x-ray as interpreted by the emergency medicine physician reveals patchy infiltrates in the right lower lung concerning for developing pneumonia Discharge Plan Triage Chief Complaint: Shortness of Breath ED Provider: Todd Valdovinos Dx/Rx/DC Orders Clinical Impression: Pneumonia, Hypertension, COPD exacerbation, Hypoxia Prescriptions: No Action Trelegy Ellipta 100-62.5-25 mcg blister with device 1 inh inhalation DAILY amlodipine 5 mg tablet 5 mg PO DAILY Patient Comments: Take 1 tablet by mouth once daily. albuterol sulfate [ProAir HFA] 90 mcg/actuation HFA aerosol inhaler 1 inh inhalation Q6H PRN (Reason: shortness of breath or wheezing) vitamin E 268 mg (400 unit) capsule 268 mg PO DAILY garlic 1,000 mg capsule 1,000 mg PO DAILY alprazolam [Xanax] 0.25 mg tablet 0.375 mg PO QHS Patient Comments: takes 1.5 tabs albuterol sulfate 2.5 mg /3 mL (0.083 %) solution for nebulization 2.5 mg inhalation Q4H PRN Qty: 25 0RF Rx Instructions: Use q4 hours and PRN for wheezing prednisone 20 mg tablet 40 mg PO DAILY PRN (Reason: sob) Primary Care Provider: Jr Ryan Referrals: Jr Ryan DO [Primary Care Provider] - Print Language: Belizean Disposition Disposition: Acute Care Hospital [facility] What to do if you have Problems For any increased pain, shortness of breath, bleeding, nausea or vomiting, chestpain, or any unexpected problems, contact your Primary Care Provider. Call [facility] ([phone]) or report to the closest Emergency Room. Call 911 if necessary. 12/01/24 0800 <Electronically signed by Todd Valdovinos DO> Cosigner Signature (if applicable): CC: Dr. Jr Ryan DO ~ Signed [facility] Work Phone: Discharge summary Author [facility]i [facility] Note Date/Time June 01, 2025 12 :23pm [facility] Medical Records Department [address] [place] [address] Emergency Department Summary 06/01/25 MR#: [id number] Acct: [id number] Name: BEATRIS QUINN Rep #:[id number] : 1950 74 From: Vivi Chen PCP: ROWENA FERRARO Status:REG ER Location: ED HPI History of Present Illness Chief Complaint: Shortness of Breath Informant: patient Narrative Narrative: Patient is a 74-year-old male with history of COPD, wears oxygen at night, anxiety, aortic stenosis, hypertension presenting with worsening shortness of breath as well as left-sided pleuritic chest pain. Patient states that for the past 2 to 3 days he has had increased shortness of breath, chest tightness and is now having pain with deep breath. States it is over his entire left chest and into his breastbone. States has had scant amount of green sputum but he feels that there is more secretions up there just cannot get it out. Does not have any significant relief with his breathing treatments at home. Notes he hashad a mild sore throat. Denies any fevers. Not any blood thinners. Denies anyswelling of his legs. Is not any blood thinners. States he is concerned he haspneumonia and this is how his prior pneumonias have felt like. No other complaints or concerns reported at this time. PE Risk Factors: Negative for Cancer, OCP + Smoking + > 35, Prior DVT or PE, Recent immobilization, Recent surgery or Recent travel [facility] Medical History Aortic stenosis Elevated coronary artery calcium score Urinary retention Heart murmur Anxiety On home oxygen therapy Acute hypoxemic respiratory failure Pneumonia COPD (chronic obstructive pulmonary disease) [place] (hard of hearing) Hypertension Home Medications ?Medication ?Instructions ?Recorded ?Last Taken ?Type amlodipine 5 mg tablet 5 mg PO DAILY blood pressure 03/06/21 06/01/25 History albuterol sulfate 2.5 mg/3 mL 2.5 mg (3 mL) inhalation Q4H PRN 12/11/23 06/01/25 Rx (0.083 %) solution for nebulization #25 vials garlic 1,000 mg capsule 1,000 mg PO DAILY general he alth 12/17/23 Unknown History vitamin E 268 mg (400 unit) capsule 268 mg PO DAILY bl ood clot 12/17/23 06/01/25 History prevention alprazolam 0.25 mg tablet (Xanax) 0.375 mg PO QHS anxi ety 02/28/24 05/31/25 History fluticasone fur. 100 mcg-umeclid 1 inh inhalation SUDHAKAR Y 02/28/24 06/01/25 Histor y 62.5 mcg-vilant 25 mcg inhalat.powder (Trelegy Ellipta) albuterol sulfate 90 mcg/actuation 1 inh inhalation Q6 H PRN shortness 12/01/24 05/31/25 History aerosol inhaler of breath or wheezing prednisone 5 mg tablet 5 mg PO DAILY PRN sob 05/31/25 History Allergy/AdvReac Type Severity Reaction Status Date / Time No Known Allergies Allergy Verified 06/01/25 07:22 Surgical History Hx of hernia repair History of replacement of both shoulder joints Social History Smoking Status: Former smoker ROS ROS ED Constitutional Constitutional ED: Denies chills or fever(s) ENT ENT ED: Reports sore throat; Denies rhinorrhea Cardiovascular Cardiovascular: Reports chest pain; Denies orthopnea or palpitations Respiratory/Chest Respiratory/Chest: Reports cough, dyspnea, dyspnea on exertion and sputum; Denies orthopnea Gastrointestinal Gastrointestinal: Denies abdominal pain, nausea or vomiting Genitourinary Genitourinary ED: Reports other Details: Reports chronic frequent nocturnal urination Musculoskeletal Musculoskeletal: Denies arthralgias or myalgias Integumentary Denies rash Psychiatric Psychiatric: Reports anxiety Hematologic/Lymphatic Hematologic/Lymphatic: Denies easy bleeding or easy bruising EXAM Physical Exam Const Vital Signs: 06/01/25 07:20 06/01/25 07:50 06/01/25 07:51 Temperature 98 F Temperature Source Oral Pulse Rate 72 64 Respiratory Rate 20 H 16 Respiratory Effort Normal Non-Labored Respiratory Depth Normal Respiratory Pattern Normal Normal Blood Pressure 153/77 H Blood Pressure Mean 102 Pulse Ox 95 Oxygen Delivery Method Room Air Room Air 06/01/25 08:18 06/01/25 08:47 06/01/25 09:42 Temperature Temperature Source Pulse Rate 67 75 82 Respiratory Rate 16 16 18 Respiratory Effort Respiratory Depth Respiratory Pattern Normal Normal Blood Pressure 139/76 H Blood Pressure Mean 97 Pulse Ox 94 Oxygen Delivery Method Room Air 06/01/25 11:00 06/01/25 11:59 Temperature 98.2 F Temperature Source Pulse Rate 80 80 Respiratory Rate 16 16 Respiratory Effort Respiratory Depth Respiratory Pattern Blood Pressure 156/85 H 156/85 H Blood Pressure Mean 108 108 Pulse Ox 98 98 Oxygen Delivery Method Positive well nourished and well developed General Appearance ED: well developed and NAD; Negative for pallor HEENT Reports moist mucous membranes Eyes PERRL Neck supple Resp normal respiratory effort Resp Narrative: Diminished breath sounds with in-store and expiratory wheezing present. Significantly diminished breath sounds at the left base compared to the right. No crackles appreciated Cardio regular rate, regular rhythm and no murmurs Cardio Narrative: 2+ radial and PT pulses present GI non-tender and non-distended Auscultation: normoactive bowel sounds Palpation: soft Extremity normal to inspection General Extremety ED: Negative for edema or tenderness General Extremity: Negative for edema Neuro oriented x3 Sensorium / Orientation: alert Motor Exam: Negative for general weakness Psych mental status grossly normal Skin no wounds General Skin Exam: Negative for jaundice or pallor MDM MDM MDM Narrative Medical decision making narrative: Patient evaluated for 2 to 3 days of worsening shortness of breath and chest tightness. Differential includes not limited to acute pleural effusion, ACS, pneumonia and COPD exacerbation. I considered pulmonary emboli but clinical exam much more consistent with COPD exacerbation versus pneumonia. Patient given breathing treatments as well as steroids in the emergency room. He does have a history of coronary artery disease's will obtain a cardiac. EKG does not show any signs of acute ischemia. High-sensitivity troponin minimally elevated at 32 but on repeat is also 32. Low suspicion is ACS as the cause. No leukocytosis. CMP normal. Chest x-ray viewed by myself as well as radiology shows granulomatous disease but no acute consolidation. Patient clinically improved with aerosols in the emergency room. Was given oralprednisone. Was ambulated however and was symptomatic and desatted to 85%. Because of the degree of desaturation to the patient would benefit from admission for further pulmonary treatments, steroids and also cover with IV azithromycin and further respiratory monitoring. He is agreeable with this plan. Case discussed with hospitalist, Dr. Le. She would like to CTA before going [facility] to ensure he does not have a pulmonary emboli. This is obtained and negative for any PE. Does show bilateral pulmonary nodule superimposed on emphysematous changes. Patient be admitted to [facility] floor. Lab Data Attestation: I reviewed the patient's lab results. Labs: Laboratory Results - last 24 hr 06/01/25 06/01/25 06/01/25 07:40 09:40 11:41 WBC 8.1 RBC 4.92 Hgb 14.1 Hct 42.7 MCV 86.8 MCH 28.7 MCHC 33.0 RDW Std Deviation 46.2 H RDW Coeff of Sherri 14.4 Plt Count 235 MPV 9.3 Immature Gran % (Auto) 0.600 Neut % (Auto) 71.4 H Lymph % (Auto) 15.9 L Coos % (Auto) 9.4 Eos % (Auto) 2.2 Baso % (Auto) 0.5 Absolute Neuts (auto) 5.8 Absolute Lymphs (auto) 1.29 Nucleated RBC % 0 Sodium 137 Potassium 4.4 Chloride 100 Carbon Dioxide 29.4 Anion Gap 8 BUN 26 H Creatinine 0.99 Estim Creat Clear Calc 50.93 Est GFR (MDRD) Non-Af 80 BUN/Creatinine Ratio 26.3 H Glucose 104 H Calcium 9.3 Total Bilirubin 0.70 AST 23 ALT 17 Alkaline Phosphatase 67 Troponin T High Sens 32 H D Troponin T Hi Sens 2 Hr 32 H Troponin T Hi Sens 4Hr 26 H NT pro BNP II 273 Total Protein 6.1 Albumin 4.0 Globulin 2.2 Albumin/Globulin Ratio 1.8 TSH 3.320 Radiography Diagnostic Testing: Clinical Impression(s) from Imaging Studies Chest X-Ray 06/01/25 08:04 IMPRESSION: 1. Interval decrease in size of the lingular and right middle lobe lesions. These were likely infectious/inflammatory. No new consolidation. 2. Granulomas. Reading Location: [id number] Chest CTA 06/01/25 11:12 IMPRESSION: No evidence of pulmonary embolism. Bilateral pulmonary nodules superimposed on emphysematous changes. Reading Location: [id number] Rhythm Strip Rhythm Strip: Sinus Rhythm Rate: 69 Ectopy: None EKG Initial EKG: Attestation: I personally reviewed and interpreted this EKG as follows: Interpretation: Sinus Rhythm Comments: Normal sinus rhythm at a rate of 69 bpm Normal axis Normal intervals Normal ST segments Compared to prior EKG patient has reversal of T wave inversions in the lateral/anterior leads Management Discussion w/another healthcare provider: Hospitalist Discharge Plan Dx/Rx/DC Orders Clinical Impression: Asthma exacerbation in COPD, History of coronary artery disease, Hypoxia Disposition Disposition: Acute Care Hospital [facility] What to do if you have Problems For any increased pain, shortness of breath, bleeding, nausea or vomiting, chestpain, or any unexpected problems, contact your Primary Care Provider. Call [facility] ([phone]) or report to the closest Emergency Room. Call 911 if necessary. 06/01/25 1223 <Electronically signed by Vivi Pike DO> Cosigner Signature (if applicable): CC: ROWENA FERRARO ~ Signed [facility] Work Phone: Discharge summary Author Karen Le [facility] Note Date/Time June 02, 2025 12 :27pm [facility] Medical Records Department [address] [place] [address] Discharge Summary 06/02/25 1153 MR#: [id number] Acct: [id number] Name: BEATRIS QUINN Rep #:[id number] : 1950 74 From: Karen Le DO PCP: VIVEK Yañez Status:AD M IN Location: [facility] TD317-3 Providers Date of Admission: 06/01/25 Date of Discharge: 06/02/25 Primary Care Physician: VIVEK Yañez Reason For Visit: AECOPD Diagnosis Discharge Diagnosis (1) Hypoxia: Status: Acute Code(s): R09.02 - Hypoxemia (2) Elevated troponin: Status: Acute Code(s): R79.89 - Other specified abnormal findings of blood chemistry (3) Increased sputum production: Status: Acute Code(s): R09.3 - Abnormal sputum (4) Pulmonary nodules: Status: Acute Code(s): R91.8 - Other nonspecific abnormal finding of lung field Plan Exertional hypoxia secondary to acute exacerbation of COPD - Patient with change in sputum production color and volume and per Gold guidelines will start antibiotics with Levaquin 750 daily - CTA of the chest does not show infiltrate or PE - Aggressive pulmonary toilet - Steroids 40 every 8 - Incentive spirometer - Mucinex 1200 p.o. twice daily - Acapella 10 times every 2 hours while awake - Check sputum culture if able - COVID/flu/RSV is negative - Check respiratory viral panel - Hold home inhalers for now Troponin elevation - Suspect related to mild hypoxia with exertion - Initial was 32 with a delta of 32 and a 4-hour troponin of 26 within normal BNP - no further workup at this time as patient has had recent stress test and cardiac catheterization within last 12 months and had nonobstructive disease at that time COPD with emphysematous changes - See therapy above - Restart home inhalers at discharge Pulmonary nodules - Several noted - Will have follow-up with pulmonary medicine after discharge Essential hypertension Continue home amlodipine Nonobstructive CAD - Patient is on no medical therapy at this time per his wishes Mild aortic stenosis - Last echo 06/05/2025 - Ongoing outpatient follow-up Anxiety - Continue home Xanax DVT prophylaxis - Subcu Lovenox 40 daily CODE STATUS - Full code is verified at the time of admission Medications at Discharge Home Medications amlodipine 5 mg tablet 5 mg PO DAILY blood pressure 03/06/21 albuterol sulfate 2.5 mg/3 mL (0.083 %) solution for nebulization 2.5 mg (3 mL) inhalation Q4H PRN #25 vials 12/11/23 garlic 1,000 mg capsule 1,000 mg PO DAILY general health 12/17/23 vitamin E 268 mg (400 unit) capsule 268 mg PO DAILY blood clot prevention 12/17/23 alprazolam 0.25 mg tablet (Xanax) 0.375 mg PO QHS anxiety 02/28/24 fluticasone fur. 100 mcg-umeclid 62.5 mcg-vilant 25 mcg inhalat.powder (Trelegy Ellipta) 1 inh inhalation DAILY 02/28/24 albuterol sulfate 90 mcg/actuation aerosol inhaler 1 inh inhalation Q6H PRN shortness of breath or wheezing 12/01/24 prednisone 5 mg tablet 5 mg PO DAILY PRN sob 06/01/25 Held on 06/02/25. Instructions: hold until off prednisone guaifenesin 1,200 mg tablet, extended release 12 hr (Mucus Relief ER) 1,200 mg PO BID #0 tabs 06/02/25 levofloxacin 750 mg tablet 750 mg PO DAILY #5 tabs 06/02/25 prednisone 10 mg tablet 10 mg PO DAILY #30 tabs 06/02/25 Hospital Course Summary of Care Provided Minutes Spent on Discharge: 36 Hospital Course: BEATRIS QUINN, is a 74 M who presented to the emergency department at [facility] on 06/01/2025 with chief complaint of shortness of breath. Patient states she has had symptoms of shortness of breath that have been slowlyworsening but really got bad in the last 24 to 48 hours. He states has had a dry cough with some intermittent production of sputum that is greenish in naturewhich is different from his baseline. He has been extremely short of breath especially when he moves around. He states he feels better when he rests. He has been taking his inhalers at home. He has had no fever or chills. He deniesmyalgias or arthralgias. He denies nausea or vomiting. He has had no diarrhea or constipation. He states he was able to work but was just very fatigued last night so we decided to be evaluated in the emergency department with his ongoingshortness of breath. He has followed previously with Dr. Perez from pulmonarymedicine. Vital signs on presentation showed a temperature of 98, heart rate 72,respiratory 20, blood pressure of 153/77 pulse ox was 95% on room air however ambulatory pulse ox was done after he was treated by the emergency department physician and he did desat. Oxygen saturation with ambulation was 85 in the emergency department and has improved to 89 once he is on the floor. CBC showeda normal white count but he did have a mild left shift with a 71.4% neutrophilia. Chemistry panel was unremarkable. His initial troponin was 32 with a delta of 32 and a 4-hour troponin of 26. TSH was within normal limits. BNP was normal. We had a CTA of his chest and was found to have no evidence of PE, no infiltrate but does have bilateral pulmonary nodule superimposed on emphysematous changes. Patient does indicate he has had previous pulmonary nodules that have been followed with Dr. Perez as an outpatient. The patient's did then verify that he actually follows in [place] and now as they were not pleased with the input here and he just had an appointment with stable lung nodules with an upcoming appointment in August 2025. I encouraged him strongly to keep this appointment. He was admitted to the medical floor andgiven the change in his sputum was placed on Levaquin p.o., aggressive aerosols,IV steroids, incentive spirometry, and Acapella. Patient improved more quickly than anticipated and was on room air continuously at rest and with exertion on 06/02/2025. He was anxious to go home. He will reinitiate his home inhalers. We started him on a prednisone taper and he will complete a course of Levaquin for another 5 days. Patient was discharged home in stable condition on 06/02/2025. He is follow-up with his primary care physician within the next week. Pt improved more quickly than anticipated at the time of admission Physical Exam Const alert, oriented x3, no apparent distress and no limitations; Negative for average body habitus, healthy appearing or well nourished Constitutional Narrative: Thin, older, white male, sitting up in chair, eating dinner, appears comfortable, nontoxic, currently with comfortable breathing on room air General Appearance: cooperative, comfortable, well kempt and well developed Exam Limitations: no limitations Nutritional Appearance: thin HEENT normocephalic, head/scalp atraumatic and moist oral mucous membranes; Negative for hearing grossly normal bilaterally HEENT Narrative: No thrush Eyes conjunctivae normal Eyes Narrative: No scleral icterus Neck supple Neck Narrative: Trachea midline Resp normal respiratory effort, no retractions, no use of accessory muscles and clearto auscultation bilaterally Resp Narrative: Diffusely diminished but now clear Auscultation: Negative for crackles, rhonchi or wheezes Cardio regular rate, regular rhythm, S1 normal heart sound, S2 normal heart sound, no rub, no gallops and no clicks; Negative for no murmurs Cardio Narrative: 3 out of 6 systolic murmur loudest at right upper sternal border GI normal to inspection, nondistended, normoactive bowel sounds, soft to palpation and non-tender Extremity no clubbing, cyanosis or edema Extremity Narrative: Decreased lean muscle mass Skin no jaundice, no petechiae and no mottling Skin Narrative: Bilateral hand onychomycosis right greater than left Neuro moves all extremities and no focal motor deficits Speech: speech normal Psych affect normal Psych Narrative: very pleasant, makes good eye contact, interacts appropriately Weight / BMI Weight Weight: 53.524 kg Body Mass Index (BMI) 19.0 ABG / Lab / Microbiology Data 06/02/25 06:11 06/02/25 06:11 Laboratory: Laboratory Results - last 24 hr 06/02/25 06:11: WBC 8.0, RBC 4.40 L, Hgb 12.8 L, Hct 38.0 L, MCV 86.4, MCH 29.1,MCHC 33.7, RDW Std Deviation 45.5 H, RDW Coeff of Sherri 14.3, Plt Count 229, MPV 9.5, Immature Gran % (Auto) 0.400, Neut % (Auto) 92.5 H, Lymph % (Auto) 4.5 L, Coos % (Auto) 2.5, Eos % (Auto) 0.0, Baso % (Auto) 0.1, Absolute Neuts (auto) 7.4, Absolute Lymphs (auto) 0.36 L, Nucleated RBC % 0, Sodium 137, Potassium 4.7, Chloride 101, Carbon Dioxide 27.5, Anion Gap 8, BUN 23 H, Creatinine 0.73, Estim Creat Clear Calc 61.33, Est GFR (MDRD) Non-Af 95, BUN/Creatinine Ratio 31.4 H, Glucose 165 H, Calcium 9.2, Phosphorus 3.2, Magnesium 2.0, Total Bilirubin 0.44, AST 20, ALT 19, Alkaline Phosphatase 60, Total Protein 5.6 L, Albumin 3.7, Globulin 1.9 L, Albumin/Globulin Ratio 2.0 Microbiology: Microbiology 06/01/25 13:45 Mucosa - Nasopharyngeal Respiratory Panel (PCR) - Final 06/01/25 11:09 Mucosa - Nose SARS-CoV-2, Influenza & RSV (PCR) - Final D/C Instructions Discharge Activity: Return to Normal Activity DC O2, CPAP, BIPAP Needs Home O2 Discharge instructions: No DC home with Oxygen: No Meaningful Use Info Meaningful Use Meaningful Use Diagnoses (Choose all that apply): None applicable Discharge Plan Admission Admit Date/Time: 06/01/25 12:28 Primary Reason for Your Visit: Shortness of Breath Attending Provider: Karen Le Primary Care Provider: Michelle Ferraro SENIOR MOBILE DEVELOPER Instructions Additional Instructions / Restrictions: 1. 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 vitamin E 268 mg (400 unit) capsule 268 mg PO DAILY garlic 1,000 mg capsule 1,000 mg PO DAILY Patient Comments: pt states he only takes once in a while alprazolam [Xanax] 0.25 mg tablet 0.375 mg PO QHS Patient Comments: takes 1.5 tabs albuterol sulfate 90 mcg/actuation HFA aerosol inhaler 1 inh inhalation Q6H PRN (Reason: shortness of breath or wheezing) albuterol sulfate 2.5 mg /3 mL (0.083 %) solution for nebulization 2.5 mg inhalation Q4H PRN Qty: 25 0RF Rx Instructions: Use q4 hours and PRN for wheezing Held prednisone 5 mg tablet 5 mg PO DAILY PRN Hold Instructions: hold until off prednisone Patient Comments: pt states he takes 1/2 to 1 tab before be if he feels sob. Referrals / Follow Up: ROWENA FERRARO [Other] Michelle Ferraro SENIOR MOBILE DEVELOPER, SENIOR MOBILE DEVELOPER-C [Primary Care Provider, Medical] - Within 1 Week Disposition Disposition (needs filled in before D/C Order can be placed): Home, Self Care Charges/Coding Visit Charges Inpatient E&M: 09763 Disch Hosp >30min 06/02/25 1227 <Electronically signed by Karen Le DO> Cosigner Signature (if applicable): CC: CHUCKYC Michelle Ferraro; Dr. Karen Le DO~ Signed [facility] Work Phone: Evaluation + Plan note No data available for this section [facility] Evaluation noteNo assessment information available [facility] Work Phone: Evaluation note* Diagnosis Onset Date Resolution Status Acute hypoxemic respiratory failure acute Influenza A acute Pneumonia acute COPD exacerbation chronic COPD with acute exacerbation chronic [facility] Work Phone: Evaluation note* Diagnosis Onset Date Resolution Status Acute hypoxemic respiratory failure acute Pneumonia acute COPD exacerbation chronic [facility] Work Phone: Evaluation note* Diagnosis SOB (shortness of breath) Shortness of breath documented in this encounter [facility] note* Diagnosis SOB (shortness of breath) Shortness of breath documented in this encounter [facility] note* Diagnosis Lung nodules- Primary Other nonspecific abnormal finding of lung field Centrilobular emphysema (HCC) Other emphysema Chest pain on breathing Painful respiration Cavitary lesion of lung Other diseases of lung, not elsewhere classified Allergy to environmental factors Other allergy, other than to medicinal agents Ex-smoker Personal history of tobacco use, presenting hazards to health documented in this encounter [facility] note* Diagnosis Chest pain on breathing Painful respiration documented in this encounter [facility] note* Diagnosis Chest pain, unspecified type- Primary documented in this encounter [facility] note* Diagnosis Lung nodules- Primary Other nonspecific abnormal finding of lung field documented in this encounter [facility] note* Diagnosis Chest pain, unspecified type [facility] Diagnosis Lung nodules- Primary Other nonspecific abnormal finding of lung field [facility]* Diagnosis Lung nodules Other nonspecific abnormal finding of lung field [facility]* Diagnosis Pulmonary emphysema, unspecified emphysema type (HCC) [facility]* Diagnosis Multiple nodules of lung- Primary Other nonspecific abnormal finding of lung field Bronchiolar disease Other diseases of trachea and bronchus [facility]* Diagnosis Multiple pulmonary nodules- Primary Other nonspecific abnormal finding of lung field Former smoker Personal history of tobacco use, presenting hazards to health Stage 4 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 ([facility]) Bronchiolar disease Other diseases of trachea and bronchus [facility]* Diagnosis Multiple nodules of lung Other nonspecific abnormal finding of lung field Bronchiolar disease Other diseases of trachea and bronchus [facility]* Diagnosis Coronary artery disease due to lipid rich plaque- Primary Murmur Undiagnosed cardiac murmurs Bronchiolar disease Other diseases of trachea and bronchus [facility] Diagnosis Fungal pneumonia- Primary Other and unspecified mycoses [facility]* Diagnosis Murmur Undiagnosed cardiac murmurs [facility]* Diagnosis Lung nodules- Primary Other nonspecific abnormal finding of lung field Lung mass Swelling, mass, or lump in chest Invasive pulmonary aspergillosis (HCC) Allergic bronchopulmonary aspergillosis Former smoker Personal history of tobacco use, presenting hazards to health Centrilobular emphysema (HCC) Other emphysema Stage 4 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 ([facility]) Cavitary lesion of lung Other diseases of lung, not elsewhere classified Chest pain on breathing Painful respiration [facility] Diagnosis Aspergillus (HCC)- Primary Aspergillosis [facility] Diagnosis Pneumonia of both lungs due to Pseudomonas species, unspecified part of lung ([facility]) [facility]* Diagnosis Onset Date Resolution Status Admit Date Hypoxia acute December 01 8:16am Pneumonia acute December 01 8:16am Stable angina acute December 01, 2024 8:16am COPD exacerbation chronic December 012024 8:16am Hypertension chronic December 01 025 8:16am [facility] Work Phone: Evaluation note* Diagnosis Lung nodules- Primary Other nonspecific abnormal finding of lung field Invasive pulmonary aspergillosis (HCC) Allergic bronchopulmonary aspergillosis Former smoker Personal history of tobacco use, presenting hazards to health Cavitary lesion of lung Other diseases of lung, not elsewhere classified Stage 4 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 (HCC) Allergy to environmental factors Other allergy, other than to medicinal agents [facility] Diagnosis Lung mass Swelling, mass, or lump in chest documented [facility] this [facility] Author Anirudh Thompson [facility] December 17, 2023 3:30pm Note Date/Time December 17, 2023 3:3 0pm [facility] Medical Records Department [address] [place] [address] H&P Exam - Hospitalist 12/17/23 1524 MR#: [id number] Acct: [id number] Name: BEATRIS QUINN Rep #:[id number] : 1950 72 From: Anriudh Thompson DO PCP: Dr. Jr Ryan DO Status:ADM IN Location: [facility] [id number] HPI - General General Date of Service: 12/17/23 Chief Complaint: Shortness of breath HPI Narrative BEATRIS QUINN, is a 72 M who presents with shortness of breath. Patient was seen onthe where he was diagnosed with COPD exacerbation exacerbated by influenza A. Patient was discharged with prednisone. Patient is chronically on oxygen anywhere from 3 to 4 L/min. Presents with just worsening shortness of breath and cough. Patient had a chest x-ray that showed bilateral infiltrates which was not present on the previous chest x-ray. Patient received bronchodilators, methylprednisolone and ceftriaxone azithromycin. [facility] Medical History COPD (chronic obstructive pulmonary disease) [place] (hard of hearing) Hypertension Home Medications albuterol sulfate 2.5 mg/3 mL (0.083 %) solution for nebulization 2.5 mg (3 mL) inhalation Q4H PRN #25 vials 10/19/16 [Rx Last Taken Unknown] amlodipine 5 mg tablet 5 mg PO DAILY 03/06/21 [History Last Taken Unknown] fluticasone furoate 200 mcg-vilanterol 25 mcg/dose inhalation powder (Breo Ellipta) 1 inh inhalation DAILY 03/06/21 [History Last Taken Unknown] prednisone 20 mg tablet 40 mg (2 x 20 mg) PO DAILY #14 tabs 10/29/23 [Rx Last Taken Unknown] prednisone 20 mg tablet 40 mg (2 x 20 mg) PO DAILY #14 tabs 10/29/23 [Rx Last Taken Unknown] albuterol sulfate 2.5 mg/3 mL (0.083 %) solution for nebulization 2.5 mg (3 mL) inhalation Q4H PRN #25 vials 12/11/23 [Rx Last Taken Unknown] prednisone 20 mg tablet 40 mg (2 x 20 mg) PO DAILY 7 days #14 tabs 12/11/23 [Rx Last Taken Unknown] Allergy/AdvReac Type Severity Reaction Status Date / Time No Known Allergies Allergy Verified 12/17/23 13:33 Surgical History History of replacement of both shoulder joints Social History (Updated 12/17/23 @ 15:[address] Anirudh Thompson DO) Smoking Status: Former smoker ROS ROS Narrative Has chest pain secondary to cough. All review of systems were negative except as mentioned above in the history of present illness and the other review of systems. Vital Signs Vital Signs Vital Signs: 12/17/23 13:26 12/17/23 13:31 12/17/23 13:34 Temperature 37.1 C 37.1 C Temperature Source Temporal Temporal Pulse Rate 106 H 106 H Respiratory Rate 28 H 28 H Respiratory Effort Short of Breath Labored Respiratory Depth Shallow Respiratory Pattern Tachypnea Blood Pressure 174/103 H 174/103 H Blood Pressure Mean 126 126 Pulse Ox 96 96 Oxygen Delivery Method Nasal Cannula Nasal Cannula Nasal Cannula Oxygen Flow Rate (L/min) 6 6 85 12/17/23 13:53 12/17/23 14:07 12/17/23 14:07 Temperature Temperature Source Pulse Rate 107 H Respiratory Rate 32 H Respiratory Effort Respiratory Depth Respiratory Pattern Tachypnea Blood Pressure Blood Pressure Mean Pulse Ox 99 Oxygen Delivery Method Room Air Nasal Cannula Oxygen Flow Rate (L/min) 4 12/17/23 14:24 12/17/23 14:31 12/17/23 15:00 Temperature 37.2 C 36.9 C Temperature Source Temporal Temporal Pulse Rate 112 H 116 H 104 H Respiratory Rate 22 H 24 H 22 H Respiratory Effort Respiratory Depth Respiratory Pattern Blood Pressure 162/96 H 178/97 H 162/101 H Blood Pressure Mean 118 124 121 Pulse Ox 96 96 97 Oxygen Delivery Method Room Air Nasal Cannula Nasal Cannula Oxygen Flow Rate (L/min) 3 3 Weight Weight: 58 kg Body Mass Index (BMI) 20.6 Physical Exam Const alert and no apparent distress Constitutional Narrative: Hard of hearing. No respiratory distress. No conversational dyspnea. General Appearance: cooperative HEENT normocephalic, head/scalp atraumatic and moist oral mucous membranes HEENT Narrative: Mallampati 1 Eyes Eyes Narrative: Glasses. No icterus Resp normal respiratory effort, no retractions, no use of accessory muscles and clearto auscultation bilaterally Cardio regular rate, regular rhythm, S1 normal heart sound and S2 normal heart sound GI normal to inspection, nondistended, normoactive bowel sounds, soft to palpation,non-tender and non-distended Extremity normal to inspection and full ROM Neuro Sensorium / Orientation: awake and alert Results Lab / Micro Data Attestation: I reviewed the patient's lab results. 12/17/23 14:05 12/17/23 14:05 Labs: Laboratory Results - last 24 hr 12/17/23 14:05: WBC 20.0 H, RBC 5.54, Hgb 15.3, Hct 47.9, MCV 86.5, MCH 27.6, MCHC 31.9 L, RDW Std Deviation 45.5 H, RDW Coeff of Sherri 14.2, Plt Count 385, MPV9.8, Immature Gran % (Auto) 0.700, Neut % (Auto) 85.9 H, Lymph % (Auto) 3.5 L, Coos % (Auto) 9.6, Eos % (Auto) 0.1, Baso % (Auto) 0.2, Absolute Neuts (auto) 17.2 H, Absolute Lymphs (auto) 0.69 L, Nucleated RBC % 0, Differential Comment COMMENT, Diff Path Review December foll, PT 13.0, INR 1.0, APTT 28.0, Sodium 138, Potassium 4.1, Chloride 97 L, Carbon Dioxide 37.0 H, Anion Gap 4 L, BUN 17, Creatinine 0.69 L, Estim Creat Clear Calc 68.47, Est GFR (MDRD) Af Amer 144, EstGFR (MDRD) Non-Af 119, BUN/Creatinine Ratio 24.5 H, Glucose 104, Lactic Acid 0.9, Calcium 9.1, Total Bilirubin 0.80, AST 18, ALT 18, Alkaline Phosphatase 86,Total Protein 7.1, Albumin 2.9 L, Globulin 4.2, Albumin/Globulin Ratio 0.7 L Imaging Chest x-ray personally viewed and showed bilateral infiltrates was new from chest x-ray on the Radiology Impression Chest X-Ray 12/17/23 14:18 IMPRESSION: Hyperinflation. New bibasilar pulmonary infiltrates. Follow-up recommended. Electronically Signed: Misbah Briscoe MD at 14:46 EDT , Assessment & Plan Assessment/Plan (1) Pneumonia: PLAN: Plan Suspected pneumococcal pneumonia * May have been secondary to his recent influenza infection. * Check urinary antigens restart colchicine Legionella. Check sputum culture. * Antibiotics with ceftriaxone and azithromycin. Pulmonary toilet. Acute COPD exacerbation * Continued bronchodilators * Methylprednisolone Influenza A * Not a candidate for oseltamivir. Was not prescribed when he was here on the . Chronic conditions * Hypertension: Continue with amlodipine. VTE prophylaxis: Enoxaparin. CODE STATUS: Addressed with the patient. Patient was very full code. Charges/Coding Visit Charges Inpatient E&M: 22490 Init Hosp L3 12/17/23 1530 <Electronically signed by Anirudh Thompson DO> Cosigner Signature (if applicable): CC: Dr. Anirudh Thompson DO; Dr. Jr Ryan DO~ Signed [facility] Work Phone: History and physical note Author Anirudh Thompson [facility] Note Date/Time December 01, 2024 8:47 am [facility] Medical Records Department [address] [address] H&P Exam - Hospitalist 12/01/24 0831 MR#: [id number] Acct: [id number] Name: BEATRIS QUINN Rep #:[id number] : 1950 73 From: Anirudh Thompson DO PCP: Dr. Jr Ryan DO Status:REG ER Location: ED HPI - General General Date of Service: 12/01/24 Chief Complaint: shortness of breath. HPI Narrative BEATRIS QUINN, is a 73 M who presents w 1-2 days of SBO and cough. Productive sputum. presented to ED w pulse of 89% on room air. CXR showed pneumonia. He received BDs, methylpred and abx w CTX and azithromycin. Similar to prior episodes of COPD exacerbation. Also, he has been experiencing exertional left-sided chest pain since August, that gets better with rest. CP does not radiate. [facility] Medical History Aortic stenosis Elevated coronary artery calcium score Urinary retention Heart murmur Anxiety On home oxygen therapy Acute hypoxemic respiratory failure Pneumonia COPD (chronic obstructive pulmonary disease) [place] (hard of hearing) Hypertension Home Medications ?Medication ?Instructions ?Recorded ?Last Taken ?Type amlodipine 5 mg tablet 5 mg PO DAILY blood pressure 03/06/21 03/02/24 History albuterol sulfate 2.5 mg/3 mL 2.5 mg (3 mL) inhalation Q4H PRN 12/11/23 Unknown Rx (0.083 %) solution for nebulization #25 vials garlic 1,000 mg capsule 1,000 mg PO DAILY general he alth 12/17/23 Unknown History vitamin E 268 mg (400 unit) capsule 268 mg PO DAILY QuVIS 12/17/23 Unknown History alprazolam 0.25 mg tablet (Xanax) 0.375 mg PO QHS anxi ety 02/28/24 Unknown History fluticasone fur. 100 mcg-umeclid 1 inh inhalation SUDHAKAR Y 02/28/24 Unknown History 62.5 mcg-vilant 25 mcg inhalat.powder (Trelegy Ellipta) prednisone 20 mg tablet 40 mg PO DAILY PRN sob 03/0203/02/24 History albuterol sulfate 90 mcg/actuation 1 inh inhalation Q6 H PRN shortness 12/01/24 Unknown History aerosol inhaler of breath or wheezing Allergy/AdvReac Type Severity Reaction Status Date / Time No Known Allergies Allergy Verified 12/01/24 06:21 Surgical History Hx of hernia repair History of replacement of both shoulder joints Social History Smoking Status: Former smoker ROS ROS Narrative All review of systems were negative except as mentioned above in the history of present illness and the other review of systems. Vital Signs Vital Signs Vital Signs: 12/01/24 06:21 12/01/24 06:26 12/01/24 06:27 Temperature 36.6 C 36.6 C Temperature Source Oral Oral Pulse Rate 89 83 83 Respiratory Rate 22 H 27 H Respiratory Effort Respiratory Pattern Blood Pressure 192/91 H 192/91 H Blood Pressure Mean 124 124 Pulse Ox 78 98 97 Oxygen Delivery Method Room Air Nasal Cannula Nasal Cannula Oxygen Flow Rate (L/min) 2 2 12/01/24 06:32 12/01/24 06:59 12/01/24 06:59 Temperature Temperature Source Pulse Rate 75 Respiratory Rate 20 H Respiratory Effort Short of Breath Respiratory Pattern Tachypnea Normal Blood Pressure Blood Pressure Mean Pulse Ox 98 Oxygen Delivery Method Nasal Cannula Nasal Cannula Oxygen Flow Rate (L/min) 2 2 12/01/24 07:11 12/01/24 07:20 12/01/24 08:00 Temperature 37.2 C 37.2 C Temperature Source Oral Oral Pulse Rate 87 82 Respiratory Rate 19 H 16 Respiratory Effort Respiratory Pattern Blood Pressure 147/84 H 123/82 H Blood Pressure Mean 105 95 Pulse Ox 99 95 96 Oxygen Delivery Method Room Air Nasal Cannula Nasal Cannula Oxygen Flow Rate (L/min) 1 1 Weight Weight: 57.1 kg Body Mass Index (BMI) 20.2 Physical Exam Narrative - Physical Exam General: Alert, Oriented x3, Cooperative HEENT: Atraumatic, Normocephalic Oral: Moist Mucosa, No Gingival or Mucosal Lesions/ Ulcerations Neck: Supple, No JVD, Negative Carotid Bruits Lungs: Diminished breath coarse sounds bilaterally Cardiovascular: Regular rate, Normal S1, Normal S2, No murmurs Abdomen: Bowel Sounds Present, Soft, Non Tender, Non-Distended, No Hepato-splenomegaly Extremities: No clubbing, No cyanosis, No edema, Capillary Refill Less than 3 Seconds Skin: No rashes, No breakdown Musculoskeletal: No Tenderness to Palpation of Joints or Extremities. No reproducible anterior chest wall tenderness. Neurological: Neuro grossly intact Psych/Mental Status: Normal Affect, Appropriate Results Lab / Micro Data Attestation: I reviewed the patient's lab results. 12/01/24 06:35 12/01/24 06:35 Labs: Laboratory Results - last 24 hr 12/01/24 06:35: WBC 13.3 H, RBC 4.74, Hgb 13.7, Hct 41.4, MCV 87.3, MCH 28.9, MCHC 33.1, RDW Std Deviation 45.2 H, RDW Coeff of Sherri 14.1, Plt Count 313, MPV 9.3, Immature Gran % (Auto) 0.600, Neut % (Auto) 91.1 H, Lymph % (Auto) 3.0 L, Coos % (Auto) 5.1, Eos % (Auto) 0.0, Baso % (Auto) 0.2, Absolute Neuts (auto) 12.1 H, Absolute Lymphs (auto) 0.40 L, Nucleated RBC % 0, Sodium 139, Potassium 4.2, Chloride 100, Carbon Dioxide 26.8, Anion Gap 12, BUN 17, Creatinine 0.93, Estim Creat Clear Calc 57.13, Est GFR (MDRD) Non-Af 87, BUN/Creatinine Ratio 18.4, Glucose 229 H, Calcium 9.4, Magnesium 2.0 Micro: Microbiology 12/01/24 06:43 Mucosa - Nose SARS-CoV-2, Influenza & RSV (PCR) - Final Imaging Radiology Impression Chest X-Ray 12/01/24 07:22 IMPRESSION: Findings consistent with pulmonary emphysema/COPD. Patchy infiltrates at the right lower and left mid lung zones may represent confluent areas of scarring versus infectious process. Recommend follow-up until resolution. Reading Location: [id number] Assessment & Plan Assessment/Plan (1) COPD exacerbation: PLAN: Likely brought on by his pneumonia Continue with bronchodilators and methylprednisolone. Patient was hypoxic with a pulse ox around 89% on room air when he presented. Currently between 1 to 2 L/min. Wean oxygen as tolerated. (2) Pneumonia: PLAN: Suspect pneumococcal. Continue antibiotics with ceftriaxone azithromycin which are being initiated in the emergency room Check urinary antigens for strep and Legionella. Check sputum culture. Pulmonary toilet. (3) Stable angina: PLAN: Patient has been experiencing left-sided chest pain with exerting himself. He has had an prior cardiac workup thus far: * Cardiac cath in March 02, 2024 showed EF of 70%. Normal LV wall motion. 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 No dampening of present. Mild irregularities of the LAD, circumflex and RCA. * Echo from June 05, 2024 EF of 59% ?5%. Mild aortic stenosis. Plan is to start him on aspirin. Check fasting lipid panel and check nuclear stress test. Check stress test and troponin series. PLAN: Plan VTE prophylaxis with enoxaparin CODE STATUS: Addressed with the patient. Patient is full code. Case discussed with the patient's at bedside. She had been saying that hisheart was fine. I reviewed his prior records with she and the patient at bedside and explained the indications for the stress test including his chest pain, his cleft like lesion in his left main. Charges/Coding Visit Charges Inpatient E&M: 33570 Init Hosp L3 12/01/24 0847 <Electronically signed by Anirudh Thompson DO> Cosigner Signature (if applicable): CC: Dr. Anirudh Thompson DO; Dr. Jr Ryan DO~ Signed [facility] Work Phone: Hospital Discharge instructions No data available for this section [facility] Hospital Discharge instructions Additional Instructions Prednisone 40 mg a day for 1 week. Follow-up with your primary care physician or see a lung specialist a skiing teacher Dr. Shorty Marrero. Use inhaler as needed and if you have a nebulizer at home. You have influenza A and it caused an exacerbation of your underlying COPD. This should progressively get better.[facility] Work Phone: Hospital Discharge instructionsAdditional Instructions 1. Please follow up with your skiing teacher in [place] in Aug as scheduled Date of Discharge: 06/02/25[facility] Work Phone: [facility] for referral (narrative)* Diagnostic Procedure Only (Urgent) - New Request Specialty Diagnoses / Procedures Referred By Contac t Referred To Contact MOLECULAR & FUNCTIONAL IMAGING Diagnoses Lung nodules Procedures NM PET/CT SKULL-THIGH INITIAL PET IMAGING CT ATTENUATION SKULL BASE MID-THIGH Tigre Restrepo MD [address] [place] [id number] Molecular & Functional Imaging [address] [place] [address] Referral ID Status Reason Start Date Expiration Date Visits Requested Visits Authorized [id number] New Request Auto-Generat ed Referral 03/27/2024 04/26/2025 1 1 [facility] for referral (narrative)* Diagnostic Procedure Only (Urgent) - Closed Specialty Diagnoses / Procedures [facility] Referred To Contact MOLECULAR & FUNCTIONAL IMAGING Diagnoses Lung nodules Procedures NM PET/CT SKULL-THIGH INITIAL PET IMAGING CT ATTENUATION SKULL BASE MID-THIGH Tigre Restrepo MD [address] [place] [id number] Molecular & Functional Imaging [address] [place] [address] Referral ID Status Reason Start Date Expiration Date V isits Requested Visits Authorized [id number] Closed Auto-Generate d Referral 04/21/2024 08/25/2024 1 1 [facility] for referral (narrative)* Outpatient Procedure (Routine) - Outside PCP Specialty Diagnoses / Procedures Referred By Contac t Referred To Contact [facility] Diagnoses Murmur Procedures ECHO ECHO TTHRC R-T 2D W/WOM-MODE COMPL SPEC&COLR D Claire Turner MD [address] [place] [address] [facility] [place] [address] [place] [id number] Referral ID Status Reason Start Date Expiration Date Visits Requested Visits Authorized [id number] Outside PCP Auto-Generat ed Referral 05/22/2024 05/22/2025 1 1 [facility] for referral (narrative)* Outpatient Procedure (Routine) - Closed Specialty Diagnoses / Procedures Referred By Trav oglesby Referred To [facility] Diagnoses Murmur Procedures ECHO ECHO TTHRC R-T 2D W/WOM-MODE COMPL SPEC&COLR D Claire Turner MD [address] [place] [address] [facility] [place] [address] [place] [address] Referral ID Status Reason Start Date Expiration Date V isits Requested Visits Authorized [id number] Closed Auto-Generate d Referral 06/05/2024 08/25/2024 1 1 [facility] for referral (narrative)No reason for referral [facility] N[facility]* Diagnostic Procedure Only (Urgent) - Closed Specialty Diagnoses / Procedures Referred By Trav oglesby Referred To Contact [facility] Diagnoses Lung nodules Procedures NM PET/CT SKULL-THIGH INITIAL PET IMAGING CT ATTENUATION SKULL BASE MID-THIGH Tigre Restrepo MD [address] [place] [address] Molecular & Functional Imaging [address] [place] [address] Referral ID Status Reason Start Date Expiration Date V isits Requested Visits Authorized [id number] Closed Auto-Generate d Referral 04/21/2024 08/25/2024 1 1 [facility] for visit Narrative* Diagnostic Procedure Only (Routine) - Denied Specialty Diagnoses / Procedures Referred By Trav oglesby Referred To Contact Radiology / RADIO GEN [facility] Diagnoses Pulmonary emphysema, unspecified emphysema type (HCC) Pulmonary emphysema, unspecified emphysema type (HCC) [J43.9] Procedures RADIOLOGIC EXAM CHEST 2 VIEWS XR CHEST Tigre Restrepo MD [address] [place] [address] [facility] [address] [place] [address] Referral ID Status Reason Start Date Expiration Date V isits Requested Visits Authorized [id number] Denied Patient Cleared - [facility] 03/24/2024 06/22/2024 1 0 [facility] for visit Narrative* Outpatient Procedure (Routine) - Closed Specialty Diagnoses / Procedures Referred By Contac t Referred To Contact [facility] Diagnoses Murmur Procedures ECHO ECHO TTHRC R-T 2D W/WOM-MODE COMPL SPEC&COLR D Claire Turner MD [address] [place] [address] [facility] [place] [address] [place] [address] Referral ID Status Reason Start Date Expiration Date V isits Requested Visits Authorized [id number] Closed Auto-Generate d Referral 06/05/2024 08/25/2024 1 1 [facility] for visit Narrative* MRI/CT (Routine) - Closed Specialty Diagnoses / Procedures Referred By Contac t Referred To Contact CT IMAGING Diagnoses Pneumonia of both lungs due to Pseudomonas species, unspecified part of lung (HCC) Procedures CT CHEST WO IVCON DIAGNOSTIC COMPUTED TOMOGRAPHY THORAX W/O Tigre Alarcon MD [address] [place] [address] Phone: tel: fax: CT IMAGING [id number] Referral ID Status Reason Start Date Expiration Date V isits Requested Visits Authorized [id number] Closed Auto-Generate d Referral OON/Self Pay Override 10/16/2024 08/25/2025 1 1 [facility] for visit Narrative* MRI/CT (Routine) - Closed Specialty Diagnoses / Procedures Referred By Contac t Referred To Contact CT IMAGING Diagnoses Lung mass Procedures CT CHEST WO IVCON DIAGNOSTIC COMPUTED TOMOGRAPHY THORAX W/O Tigre Alarcon MD [address] [place] [address] Phone: tel: fax: [place] [phone] Referral ID Status Reason Start Date Expiration Date V isits Requested Visits Authorized [id number] Closed Auto-Generate d Referral 04/16/2025 08/25/2025 1 1 [facility] Summary Purpose Family History No Family History Records FoundNo Family History Records FoundNo Family History Records FoundNo Family History Records FoundNo Family History Records FoundNo Family History Records Found Advance Directives No Advanced Directives Records Found Advance Directive Response Recorded Date/ Time Living Will No May 01 5:18am Power of Mobile Crane Operator No May 01, 2021 5:18am Advance Directive Response Recorded Date/ Time Living Will No August 23 8:27pm Power of Mobile Crane Operator No August 23, 2022 8:27pm Advance Directive Response Recorded Date/ Time Living Will No August 26 10:56am Power of Mobile Crane Operator No August 26 10:56am Advance Directive Response Recorded Date/ Time Living Will No August 26 1:51pm Power of Mobile Crane Operator No August 26 1:51pm Advance Directive Response Recorded Date/ Time Living Will No August 26 2:51pm Power of Mobile Crane Operator No August 26 2:51pm Advance Directive Response Recorded Date/ Time Living Will Yes July 09 7:09am Power of Mobile Crane Operator Yes July 09, 2023 7:09am Name of Medical Power of Mobile Crane Operator July 09, 2023 7:09am Advance Directive Response Recorded Date/ Time Name of Medical Power of Mobile Crane Operator July 09, 2023 7:09am Living Will No October 29, 2023 6:55am Power of Mobile Crane Operator No October 28 6:55am Advance Directive Response Recorded Date/ Time Living Will No December 11, 2023 10:10am Power of Mobile Crane Operator No December 10 10:10am Advance Directive Response Recorded Date/ Time Living Will No December 17, 2023 1:34pm Power of Mobile Crane Operator No December 16 1:34pm Advance Directive Response Recorded Date/ Time Living Will No December 17, 2023 4:06pm Power of Mobile Crane Operator No December 16 4:06pm Advance Directive Response Recorded Date/ Time Living Will Yes December 01, 2024 6:32am Do you have a Healthcare Power of Mobile Crane Operator? Yes December 01, 2024 6:32am Name of Medical Power of Mobile Crane Operator December 01, 2024 6:32am Advance Directives No March 02 9:01am Advance Directive Response Recorded Date/ Time Living Will Yes December 01, 2024 9:18am Do you have a Healthcare Power of Mobile Crane Operator? Yes December 01, 2024 9:18am Name of Medical Power of Mobile Crane Operator December 01, 2024 9:18am Advance Directives No March 02 9:01am Advance Directive Response Recorded Date/ Time Do you have a Healthcare Power of Mobile Crane Operator? No June 01, 2025 7:51am Advance Directives No March 02 9:01am Advance Directive Response Recorded Date/ Time Do you have a Healthcare Power of Mobile Crane Operator? No June 01, 2025 1:35pm Advance Directives No March 02 9:01am Chief Complaint and Reason for Visit Chief Complaint CHEST PAIN Chief Complaint CHEST PAIN SHORTNESS OF BREATH Chief Complaint CHEST PAIN SHORTNESS OF BREATH AECOPD COPD EXACERBATION Reason for Visit Acute hypoxemic resp iratory failure Influenza A Pneumonia COPD exacerbation COPD with acute exacerbation Chief Complaint CHEST PAIN SHORTNESS OF BREATH AECOPD COPD EXACERBATION AECOPD AECOPD AECOPD AECOPD Reason for Visit Acute hypoxemic resp iratory failure Influenza A Pneumonia COPD exacerbation COPD with acute exacerbation Chief Complaint Personal history of nicotine dependence Chief Complaint sob Chief Complaint sob sob Chief Complaint sob SOB Chief Complaint sob SOB PNEUMONIA Pneumonia Reason for Visit Acute hypoxemic resp iratory failure Pneumonia COPD exacerbation Chief Complaint sob SOB PNEUMONIA Pneumonia Pneumonia Pneumonia Pneumonia Reason for Visit Acute hypoxemic resp iratory failure Pneumonia COPD exacerbation Chief Complaint Admit Date COPD EX. ANGINA December 01, 2024 8:16 am Shortness of Breath December 01, 2024 8:31 am Reason for Visit Admit Date Hypoxia December 01, 2024 8:16 am Pneumonia December 01, 2024 8:16 am Stable angina December 01, 2024 8:16 am COPD exacerbation December 01, 2024 8:16 am Hypertension December 01, 2024 8:16 am Chief Complaint Admit Date COPD EX. ANGINA December 01, 2024 8:16 am Shortness of Breath December 01, 2024 8:31 am COPD EX. ANGINA December 02, 2024 8:15 am COPD EX. ANGINA December 02, 2024 3:06 pm Chief Complaint Admit Date AECOPD June 01, 2025 12 :28pm Chief Complaint Admit Date AECOPD June 01, 2025 12 :28pm AECOPD June 02, 2025 11 :53am Reason for Visit Admit Date Elevated troponin June 01, 2025 12 :28pm Hypoxia June 01, 2025 12 :28pm Increased sputum production June 01, 2025 12:28pm Pulmonary nodules June 01, 2025 12 :28pm Reason for Referral Specialty Diagnoses / Procedures Referred By Contac t Referred To Contact Infectious Diseases Diagnoses Fungal pneumonia Procedures CONSULT TO INFECTIOUS DISEASES OFFICE/OUTPATIENT [facility] 60 MINUTES Tigre Restrepo MD [address] [place] [address] Referral ID Status Reason Start Date Expiration Date Visits Requested Visits Authorized [id number] Authorized PCP Requested Referral 05/28/2024 05/28/2025 1 1 Specialty Diagnoses / Procedures Referred By Contac t Referred To Contact CT IMAGING Diagnoses Multiple nodules of lung Procedures CT CHEST WO IVCON DIAGNOSTIC COMPUTED TOMOGRAPHY THORAX W/O CNTRST Mehreen Crow MD [address] [place] [address] [facility] [place] [address] Referral ID Status Reason Start Date Expiration Date Visits Requested Visits Authorized [id number] Authorized Auto-Generat ed Referral 05/15/2024 08/25/2024 1 1 Specialty Diagnoses / Procedures Referred By Contac t Referred To Contact CT IMAGING Diagnoses Chest pain, unspecified type Procedures CT CHEST W IVCON PE DIAGNOSTIC COMPUTED TOMOGRAPHY THORAX W/CONTRAST Tigre Restrepo MD [address] [place] [address] Ct [facility] [place] [address] Referral ID Status Reason Start Date Expiration Date V isits Requested Visits Authorized [id number] Closed Auto-Generate d Referral 03/26/2024 04/25/2025 1 1 Specialty Diagnoses / Procedures Referred By Contac t Referred To Contact CT IMAGING Diagnoses Chest pain on breathing Procedures CT CHEST W IVCON PE DIAGNOSTIC COMPUTED TOMOGRAPHY THORAX W/CONTRAST Tigre Restrepo MD [address] [place] [address] Ct Imaging [id number] Referral ID Status Reason Start Date Expiration Date Visits Requested Visits Authorized [id number] Pending Review Auto-Generat ed Referral 03/24/2024 04/23/2025 1 1 Specialty Diagnoses / Procedures Referred By Trav t Referred To Contact CT IMAGING Diagnoses Lung nodules Procedures CT CHEST WO IVCON DIAGNOSTIC COMPUTED TOMOGRAPHY THORAX W/O CNTRST Tigre Restrepo MD [address] [place] [address] [place] [address] Referral ID Status Reason Start Date Expiration Date Visits Requested Visits Authorized [id number] New Request Auto-Generat ed Referral 03/24/2024 04/23/2025 1 1 Additional Source Comments (unrecognized sect ion and content) No Status Records FoundNo Status Records FoundNo Status Records FoundNo Status Records FoundNo Status Records FoundNo Status Records Found INFORMATION SOURCE (unrecogn ized section and content) DATE CREATED AUTHOR 11/26/2020 [facility] DATE CREATED AUTHOR AUTHOR'S ORGANIZ ATION 09/11/2022 [facility] DATE CREATED AUTHOR AUTHOR'S ORGANIZ ATION 12/15/[address] [facility] DATE CREATED AUTHOR AUTHOR'S ORGANIZ ATION 04/18/2025 [facility] DATE CREATED AUTHOR AUTHOR'S ORGANIZ ATION 06/11/2025 [facility] DATE CREATED AUTHOR AUTHOR'S ORGANIZ ATION 06/24/2025 [facility] Goals (unrecognized section and content) Type Treatment Intervention Code Status: Full Code - Verified Goals may be documented in an alternate section Care Team (unrecognized sect ion and content) Care Team Personnel Name: RADHA STAHL III, MD Member Role: Primary Care Physician Address: Address: [address] [place] [id number]- [place] Name: JUAN CHESTER PA Position: ED Physician Turbine Subassembler Member Role: ED PA Address: Address: [address] [place], [place] [address] [address]- Care Team Related Persons Name: SHAHBAZ QUINN Address: Home [address] [place] [address] [place] Care Teams (unrecognized sec tion and content) Team Status: Active Member Role Status Dates Dr. Radha Stahl III, MD Family Provider Active Dr. Jr Ryan , DO Primary Care Provider Active Team Status: Inactive Member Role Status Dates Dr. Jr Ryan DO Primary Care Provider Active Dr. Donato Perez MD Attending Provider, Referrin g Provider Active Team Status: Inactive Member Role Status Dates Dr. Jr Ryan DO Primary Care Provider Active Dr. Jaleel Saul MD Emergency Provider Active Team Status: Inactive Member Role Status Dates Dr. Jr Ryan DO Primary Care Provider Active Dr. Jaleel Saul MD Attending Provider, Emergency Provider Active Team Status: Inactive Member Role Status Dates Dr. rJ Ryan DO Primary Care Provider Active Dean Salas MD Emergency Provider Active Team Status: Inactive Member Role Status Dates Dr. Jr Ryan DO Primary Care Provider Active Dean Salas MD Attending Provider, Emergency Provid er Active Team Status: Inactive Member Role Status Dates Dr. Jr Ryan DO Primary Care Provider Active Dr. Robin Montenegro MD Emergency Provider Active Team Status: Active Member Role Status Dates Dr. Jr Ryan DO Primary Care Provider Active Dr. Migel Iqbal DO Emergency Provider Active Dr. Anirudh Thompson DO Admit Provider, At tending Provider, Other Provider Active Team Status: Active Member Role Status Dates Dr. Jr Ryan DO Primary Care Provider Active Dr. Migel Iqbal DO Emergency Provider Active Dr. Anirudh Thompson DO Admit Provider, Attending Provid er Active Team Status: Active Member Role Status Dates Dr. Jr Ryan DO Primary Care Provider Active Dr. Migel Iqbal DO Emergency Provider Active Dr. Anirudh Thompson DO Admit Provider, Other Provider A ctive Dr. Fadi Lloyd MD Attending Provider, Other Provi preet Active Team Status: Inactive Member Role Status Dates Dr. Jr Ryan DO Primary Care Provider Active Dr. Migel Iqbal DO Emergency Provider Active Dr. Anirudh Thompson DO Admit Provider, Other Provider A ctive Dr. Fadi Lloyd MD Attending Provider Active Team Status: Inactive Member Role Status Dates Dr. Jr Ryan DO Primary Care Provider Active Dr. Robin Montenegro MD Attending Provider, Emergency Pro vider Active Chief Psychology Relationship Specialty [place] [address] [address] PCP - General Internal Medicine 11/17/21 Chief Psychology Relationship Special[place] [address] [place] [address] PCP - General Internal Medicine 11/17/21 Chief Psychology Relationship Special[place] [address] [address] PCP - General Internal Medicine 11/17/21 Chief Psychology Relationship Specialty [place] [address] [address] PCP - General Internal Medicine 11/17/21 Chief Psychology Relationship Specialty [place] [address] [address] PCP - General Internal Medicine 11/17/21 Chief Psychology Relationship Specialty Start Date End Date Jr Ryan, [address] [address] PCP - General Internal Medicine 11/17/21 Chief Psychology Relationship Specialty [place] [address] [address] PCP - General Internal Medicine 11/17/21 Chief Psychology Relationship Specialty [place] [address] [address] PCP - General Internal Medicine 11/17/21 Chief Psychology Relationship Specialty [place] [address] [place] [address] PCP - General Internal Medicine 11/17/21 Chief Psychology Relationship Specialty [place] [address] [place] [address] PCP - General Internal Medicine 11/17/21 Chief Psychology Relationship Specialty [place] [address] [place] [address] PCP - General Internal Medicine 11/17/21 Chief Psychology Relationship Specialty [place] [address] [place] [address] PCP - General Internal Medicine 11/17/21 Chief Psychology Relationship Specialty [place] [address] [place] [address] PCP - General Internal Medicine 11/17/21 Chief Psychology Relationship Specialty Start Date End Date Jr Ryan, [address] [place] [id number] PCP - General Internal Medicine 11/17/21 Chief Psychology Relationship Specialty [place] [address] [place] [address] PCP - General Internal Medicine 11/17/21 Chief Psychology Relationship Specialty [place] [address] [address] PCP - General Internal Medicine 11/17/21 Chief Psychology Relationship Specialty [place] [address] [address] PCP - General Internal Medicine 11/17/21 Chief Psychology Relationship Specialty [place] [address] [address] PCP - General Internal Medicine 11/17/21 Chief Psychology Relationship Specialty [place] [address] [address] PCP - General Internal Medicine 11/17/21 Team Status: Active Member Role Status Dates Dr. Jr Ryan DO Primary Care Provider Active Team Status: Active Member Role Status Dates Dr. Jr Ryan DO Primary Care Provider Active Start: December 01, 2024 Dr. Todd Valdovinos , Emergency Provider Active Start: December 01, 2024 Dr. Anirudh Thompson , Admit Provider Active Star t: December 01, 2024 Dr. Anirudh Thompson DO Attending Provider Active Start: December 01, 2024 Team Status: Active Member Role Status Dates Dr. Jr Ryan DO Primary Care Provider Active Start: December 01, 2024 Dr. Todd Valdovinos DO Emergency Provider Active Start: December 01, 2024 Dr. Anirudh Thompson DO Attending Provider Active Start: December 01, 2024 Team Status: Active Member Role Status Dates Michelle Ferraro SENIOR MOBILE DEVELOPER, SENIOR MOBILE DEVELOPER-C Primary Care Provider Activ e Team Status: Inactive Member Role Status Dates Dr. Todd Valdovinos , Emergency Provider Active Start: December 01, 2024 End: December 02, 2024 Dr. Anirudh Thompson , Admit Provider Active Star t: December 01, 2024 End: December 02, 2024 Dr. Anirudh Thompson DO Attending Provider Active Start: December 01, 2024 End: December 02, 2024 Michelle Ferraro SENIOR MOBILE DEVELOPER, SENIOR MOBILE DEVELOPER-C Primary Care Provider Activ e Start: December 01, 2024 End: December 02, 2024 Team Status: Active Member Role Status Dates Dr. Todd Valdovinos DO Emergency Provider Active Start: December 02, 2024 Dr. Anirudh Thompson DO Admit Provider Active Star t: December 02, 2024 Dr. Anirudh Thompson DO Attending Provider Active Start: December 02, 2024 Dr. Ainrudh Thompson DO Other Provider Active Star t: December 02, 2024 Michelle Ferraro SENIOR MOBILE DEVELOPER, SENIOR MOBILE DEVELOPER-C Primary Care Provider Activ e Start: December 02, 2024 Team Status: Active Member Role Status Dates Dr. Todd Valdovinos DO Emergency Provider Active Start: December 02, 2024 Dr. Anirudh Thompson DO Admit Provider Active Star t: December 02, 2024 Dr. Anirudh Thompson DO Other Provider Active Star t: December 02, 2024 Michelle Ferraro SENIOR MOBILE DEVELOPER, SENIOR MOBILE DEVELOPER-C Primary Care Provider Activ e Start: December 02, 2024 Dr. Eh Castellon MD Attending Provider Active S tart: December 02, 2024 Chief Psychology Relationship Specialty [place] [address] [address] PCP - General Internal Medicine 11/17/21 Team Status: Active Member Role/Relationship Status Dates Michelle Ferraro SENIOR MOBILE DEVELOPER, SENIOR MOBILE DEVELOPER-C Primary care physician Acti ve Team Status: Active Member Role/Relationship Status Dates Dr. Vivi Pike DO Emergency Departm ent Physician Active Start: June 01, 2025 Michelle Ferraro SENIOR MOBILE DEVELOPER, SENIOR MOBILE DEVELOPER-C Primary care physician Active Start: May Dr. Karen eL , Admitting physician Active Start: June 01, 2025 Dr. Karen Le DO Attending physician Active Start: June 01, 2025 Team Status: Inactive Member Role/Relationship Status Dates Dr. Vivi Pike DO Emergency Departm ent Physician Active Start: June 01, 2025 End: June 02, 2025 Michelle Ferraro SENIOR MOBILE DEVELOPER, SENIOR MOBILE DEVELOPER-C Primary care physician Active Start: May End: June 02, 2025 Dr. Karen Le DO Admitting physician Active Start: June 01, 2025 End: June 02, 2025 Dr. Karen Le DO Attending physician Active Start: June 01, 2025 End: June 02, 2025 Dr. Karen Le DO Nurse Practitioner Active S tart: June 01, 2025 Team Status: Active Member Role/Relationship Status Dates Dr. Vivi Pike DO Emergency Departm ent Physician Active Start: June 02, 2025 Michelle Ferraro SENIOR MOBILE DEVELOPER, SENIOR MOBILE DEVELOPER-C Primary care physician Active Start: May Dr. Karen Le DO Admitting physician Active Start: June 02, 2025 Dr. Karen Le DO Attending physician Active Start: June 02, 2025 Dr. Karen Le DO Nurse Practitioner Active S tart: June 02, 2025 Source Comments (unrecognize d section and content) In the event this informatio n is protected by the Federal Confidentiality of Alcohol and Drug Abuse Patient Records regulations: The Federal rules restrict any use of the information to criminally investigate or prosecute any alcohol or drug abuse patient.[facility] the event this information is protected by the Federal Confidentiality of Alcohol and Drug Abuse Patient Records regulations: The Federal rules restrict any use of the information to criminally investigate or prosecute any alcohol or drug abuse patient.[facility] Center[facility] the event this information is protected by the Federal Confidentiality of Alcohol and Drug Abuse Patient Records regulations: The Federal rules restrict any use of the information to criminally investigate or prosecute any alcohol or drug abuse patient.[facility] the event this information is protected by the Federal Confidentiality of Alcohol and Drug Abuse Patient Records regulations: The Federal rules restrict any use of the information to criminally investigate or prosecute any alcohol or drug abuse patient.[facility] Center[facility] the event this information is protected by the Federal Confidentiality of Alcohol and Drug Abuse Patient Records regulations: The Federal rules restrict any use of the information to criminally investigate or prosecute any alcohol or drug abuse patient.[facility] CenterIn the event this information is protected by the Federal Confidentiality of Alcohol and Drug Abuse Patient Records regulations: The Federal rules restrict any use of the information to criminally investigate or prosecute any alcohol or drug abuse patient.[facility] Center[facility] the event this information is protected by the Federal Confidentiality of Alcohol and Drug Abuse Patient Records regulations: The Federal rules restrict any use of the information to criminally investigate or prosecute any alcohol or drug abuse patient.[facility] CenterIn the event this information is protected by the Federal Confidentiality of Alcohol and Drug Abuse Patient Records regulations: The Federal rules restrict any use of the information to criminally investigate or prosecute any alcohol or drug abuse patient.[facility] CenterIn the event this information is protected by the Federal Confidentiality of Alcohol and Drug Abuse Patient Records regulations: The Federal rules restrict any use of the information to criminally investigate or prosecute any alcohol or drug abuse patient.[facility] CenterIn the event this information is protected by the Federal Confidentiality of Alcohol and Drug Abuse Patient Records regulations: The Federal rules restrict any use of the information to criminally investigate or prosecute any alcohol or drug abuse patient.[facility] CenterIn the event this information is protected by the Federal Confidentiality of Alcohol and Drug Abuse Patient Records regulations: The Federal rules restrict any use of the information to criminally investigate or prosecute any alcohol or drug abuse patient.[facility] CenterIn the event this information is protected by the Federal Confidentiality of Alcohol and Drug Abuse Patient Records regulations: The Federal rules restrict any use of the information to criminally investigate or prosecute any alcohol or drug abuse patient.[facility] CenterIn the event this information is protected by the Federal Confidentiality of Alcohol and Drug Abuse Patient Records regulations: The Federal rules restrict any use of the information to criminally investigate or prosecute any alcohol or drug abuse patient.[facility] CenterIn the event this information is protected by the Federal Confidentiality of Alcohol and Drug Abuse Patient Records regulations: The Federal rules restrict any use of the information to criminally investigate or prosecute any alcohol or drug abuse patient.[facility] CenterIn the event this information is protected by the Federal Confidentiality of Alcohol and Drug Abuse Patient Records regulations: The Federal rules restrict any use of the information to criminally investigate or prosecute any alcohol or drug abuse patient.[facility] CenterIn the event this information is protected by the Federal Confidentiality of Alcohol and Drug Abuse Patient Records regulations: The Federal rules restrict any use of the information to criminally investigate or prosecute any alcohol or drug abuse patient.[facility] CenterIn the event this information is protected by the Federal Confidentiality of Alcohol and Drug Abuse Patient Records regulations: The Federal rules restrict any use of the information to criminally investigate or prosecute any alcohol or drug abuse patient.[facility] CenterIn the event this information is protected by the Federal Confidentiality of Alcohol and Drug Abuse Patient Records regulations: The Federal rules restrict any use of the information to criminally investigate or prosecute any alcohol or drug abuse patient.[facility] CenterIn the event this information is protected by the Federal Confidentiality of Alcohol and Drug Abuse Patient Records regulations: The Federal rules restrict any use of the information to criminally investigate or prosecute any alcohol or drug abuse patient.[facility] CenterIn the event this information is protected by the Federal Confidentiality of Alcohol and Drug Abuse Patient Records regulations: The Federal rules restrict any use of the information to criminally investigate or prosecute any alcohol or drug abuse patient.[facility] CenterIn the event this information is protected by the Federal Confidentiality of Alcohol and Drug Abuse Patient Records regulations: The Federal rules restrict any use of the information to criminally investigate or prosecute any alcohol or drug abuse patient.[facility] CenterIn the event this information is protected by the Federal Confidentiality of Alcohol and Drug Abuse Patient Records regulations: The Federal rules restrict any use of the information to criminally investigate or prosecute any alcohol or drug abuse patient.[facility] CenterIn the event this information is protected by the Federal Confidentiality of Alcohol and Drug Abuse Patient Records regulations: The Federal rules restrict any use of the information to criminally investigate or prosecute any alcohol or drug abuse patient.[facility] CenterIn the event this information is protected by the Federal Confidentiality of Alcohol and Drug Abuse Patient Records regulations: The Federal rules restrict any use of the information to criminally investigate or prosecute any alcohol or drug abuse patient.[facility] CenterIn the event this information is protected by the Federal Confidentiality of Alcohol and Drug Abuse Patient Records regulations: The Federal rules restrict any use of the information to criminally investigate or prosecute any alcohol or drug abuse patient.[facility] CenterIn the event this information is protected by the Federal Confidentiality of Alcohol and Drug Abuse Patient Records regulations: The Federal rules restrict any use of the information to criminally investigate or prosecute any alcohol or drug abuse patient.[facility] CenterIn the event this information is protected by the Federal Confidentiality of Alcohol and Drug Abuse Patient Records regulations: The Federal rules restrict any use of the information to criminally investigate or prosecute any alcohol or drug abuse patient.[facility] CenterIn the event this information is protected by the Federal Confidentiality of Alcohol and Drug Abuse Patient Records regulations: The Federal rules restrict any use of the information to criminally investigate or prosecute any alcohol or drug abuse patient.[facility] CenterIn the event this information is protected by the Federal Confidentiality of Alcohol and Drug Abuse Patient Records regulations: The Federal rules restrict any use of the information to criminally investigate or prosecute any alcohol or drug abuse patient.[facility] CenterIn the event this information is protected by the Federal Confidentiality of Alcohol and Drug Abuse Patient Records regulations: The Federal rules restrict any use of the information to criminally investigate or prosecute any alcohol or drug abuse patient.[facility] CenterIn the event this information is protected by the Federal Confidentiality of Alcohol and Drug Abuse Patient Records regulations: The Federal rules restrict any use of the information to criminally investigate or prosecute any alcohol or drug abuse patient.[facility] CenterIn the event this information is protected by the Federal Confidentiality of Alcohol and Drug Abuse Patient Records regulations: The Federal rules restrict any use of the information to criminally investigate or prosecute any alcohol or drug abuse patient.[facility] CenterIn the event this information is protected by the Federal Confidentiality of Alcohol and Drug Abuse Patient Records regulations: The Federal rules restrict any use of the information to criminally investigate or prosecute any alcohol or drug abuse patient.[facility] CenterIn the event this information is protected by the Federal Confidentiality of Alcohol and Drug Abuse Patient Records regulations: The Federal rules restrict any use of the information to criminally investigate or prosecute any alcohol or drug abuse patient.[facility] CenterIn the event this information is protected by the Federal Confidentiality of Alcohol and Drug Abuse Patient Records regulations: The Federal rules restrict any use of the information to criminally investigate or prosecute any alcohol or drug abuse patient.[facility] CenterIn the event this information is protected by the Federal Confidentiality of Alcohol and Drug Abuse Patient Records regulations: The Federal rules restrict any use of the information to criminally investigate or prosecute any alcohol or drug abuse patient.[facility] CenterIn the event this information is protected by the Federal Confidentiality of Alcohol and Drug Abuse Patient Records regulations: The Federal rules restrict any use of the information to criminally investigate or prosecute any alcohol or drug abuse patient.[facility] CenterIn the event this information is protected by the Federal Confidentiality of Alcohol and Drug Abuse Patient Records regulations: The Federal rules restrict any use of the information to criminally investigate or prosecute any alcohol or drug abuse patient.[facility] CenterIn the event this information is protected by the Federal Confidentiality of Alcohol and Drug Abuse Patient Records regulations: The Federal rules restrict any use of the information to criminally investigate or prosecute any alcohol or drug abuse patient.[facility] CenterIn the event this information is protected by the Federal Confidentiality of Alcohol and Drug Abuse Patient Records regulations: The Federal rules restrict any use of the information to criminally investigate or prosecute any alcohol or drug abuse patient.[facility] CenterIn the event this information is protected by the Federal Confidentiality of Alcohol and Drug Abuse Patient Records regulations: The Federal rules restrict any use of the information to criminally investigate or prosecute any alcohol or drug abuse patient.[facility] CenterIn the event this information is protected by the Federal Confidentiality of Alcohol and Drug Abuse Patient Records regulations: The Federal rules restrict any use of the information to criminally investigate or prosecute any alcohol or drug abuse patient.[facility] CenterIn the event this information is protected by the Federal Confidentiality of Alcohol and Drug Abuse Patient Records regulations: The Federal rules restrict any use of the information to criminally investigate or prosecute any alcohol or drug abuse patient.[facility] CenterIn the event this information is protected by the Federal Confidentiality of Alcohol and Drug Abuse Patient Records regulations: The Federal rules restrict any use of the information to criminally investigate or prosecute any alcohol or drug abuse patient.[facility] Reason for Visit (unrecogniz ed section and content) Reason Comments Referral Request Reason Comments Spirometry Specialty Diagnoses / Procedures Referred By Contac t Referred [facility] Diagnoses SOB (shortness of breath) Procedures SPIROMETRY WITH DILATOR IF OBSTRUCTED BRNCDILAT RSPSE SPMTRY PRE&POST-BRNCDILAT ADMN Annette Marrero MD [address] [place] [address] [address] Referral ID Status Reason Start Date Expiration Date V isits Requested Visits Authorized [id number] Denied Patient Cleared - [facility] 03/06/2024 04/04/2025 1 0 Specialty Diagnoses / Procedures Referred By Contac t Referred To [facility] Diagnoses SOB (shortness of breath) Procedures LUNG DIFFUSION CAPACITY (DLCO) DIFFUSING CAPACITY Annette Marrero MD [address] [place] [address] [address] Referral ID Status Reason Start Date Expiration Date V isits Requested Visits Authorized [id number] Denied Patient Cleared - [facility] 03/24/2024 08/25/2024 1 0 Reason Comments Consult copd - pfts and cxr done Specialty Diagnoses / Procedures Referred By Contac t Referred To Contact Pulmonary and Critical Care Medicine / PULMONARY MEDICINE Diagnoses Provider: Any Staff 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 Patient has not been seen by pulmonary at [facility]. Staff msg Procedures OFFICE/OUTPATIENT NEW MODERATE MDM 45 MINUTES RI NEW COPD Self Tigre Restrepo MD [address] [place] [address] Referral ID Status Reason Start Date Expiration Date V isits Requested Visits Authorized [id number] Denied Patient Cleared - [facility] 03/24/2024 06/22/2024 1 0 Reason Comments Received Outside Medical Records immun[facility] y therapy center Reason Comments Patient Update Reason Comments Radiology CT Specialty Diagnoses / Procedures Referred By Contac t Referred To Contact CT IMAGING Diagnoses Chest pain on breathing Procedures CT CHEST W IVCON PE DIAGNOSTIC COMPUTED TOMOGRAPHY THORAX W/CONTRAST Tigre Restrepo MD [address] [place] [address] Ct Imaging [id number] Referral ID Status Reason Start Date Expiration Date Visits Requested Visits Authorized [id number] Authorized Patient Cleared - [facility] 03/24/2024 04/23/2025 1 2 Reason Comments Appointment Reason Comments Radiology NM Reason Comments Cardiac Clearance Reason Comments Appointment Schedule biopsy Reason Comments Bronchoscopy Scheduling- CLEARED- [facility] [facility] Reason Comments Appointment Bronchoscopy Scheduling Reason Comments New Patient Specialty Diagnoses / Procedures Referred By Contac t Referred To Contact CT IMAGING Diagnoses Multiple nodules of lung Procedures CT CHEST WO IVCON DIAGNOSTIC COMPUTED TOMOGRAPHY THORAX W/O CNTEMMANUELLET Mehreen Crow MD [address] [place] [address] Ct Imaging [place] [address] Referral ID Status Reason Start Date Expiration Date V isits Requested Visits Authorized [id number] Closed Auto-Generate d Referral 05/15/2024 08/25/2024 1 1 Reason Comments Nodule Reason Comments Follow Up Follow upPreviously seen by Dr HarveyPt was told he has coronary blockage. Brought records with him today. Pt reports having some chest discomfort at times. Goes away on its own. Reason Comments Medication Request Reason Comments Results Reason Comments Refill Request Reason Comments Patient Request Testing Reason Comments COPD Specialty Diagnoses / Procedures Referred By Contac t Referred To Contact Pulmonary and Critical Care Medicine / PULMONARY MEDICINE Diagnoses COPD Procedures RI EST COPD [facility] [place] [address] [place] [address] Phone: tel: Tigre Restrepo MD [address] [place] [address] Phone: tel: fax: Referral ID Status Reason Start Date Expiration Date Visits Re quested Visits Authorized [id number] Closed 10/16/2024 08/25/2025 1 1 Reason Comments LMTCB Patient Request Message regarding ID Reason Comments COPD FOLLOW UP Specialty Diagnoses / Procedures Referred By Contac t Referred To Contact Pulmonary and Critical Care Medicine / PULMONARY MEDICINE Diagnoses COPD Procedures RI EST COPD [facility] [address] [place] [address] Phone: tel: Tigre Restrepo MD [address] [place] [address] Phone: tel: fax: FOR RECORDS PERTAINING TO PATIENTS WHO ARE OR HAVE BEEN ENROLLED IN A CHEMICAL DEPENDENCY/SUBSTANCEABUSE PROGRAM, SOME INFORMATION MAY BE OMITTED. This clinical summary was aggregated from multiple sources. Caution should be exercised in using it in the provision of clinical care. This summary normalizes information from multiple sources, and as a consequence, information in this document may materially change the coding, format and clinical context of patient data. In addition, data may be omitted in some cases. CLINICAL DECISIONS SHOULD BE BASED ON THE PRIMARY CLINICAL RECORDS. [facility] [employer] [facility]. provides no warranty or guarantee of the accuracy or completeness of information in this document.
--- NOTE | 2025-07-16 07:40 | RAD_ITS ---
PROCEDURE: CHEST 1 VIEW (PORTABLE) 07/16/2025 REASON FOR EXAM: DYSPNEA TECHNIQUE: Frontal view of the chest. COMPARISON: 01 June 2025 FINDINGS: Hardware and support lines: None. Heart: Negative. Lungs: Left suprahilar nodule. Stable. Right lower lung nodule stable. Emphysematous changes. Pleura: No pleural thickening. No pleural effusion. Mediastinum and aorta: Negative for hilar adenopathy. Mildly tortuous thoracic aorta. Bones: Age-appropriate degenerative changes of the spine. Other: Remainder of the exam negative. RAD/Chest 1 View (Portable) IMPRESSION: Stable bilateral pulmonary nodules. Stable emphysema. Negative for acute cardiopulmonary disease. Reading Location: [id number]
[2025-07-16 07:44] LABS: Anion Gap 12 (5-15); BUN 21 mg/dL (4-19); BUN/Creat Ratio 25.4 RATIO (10-20); Calcium,Total 9.9 mg/dL (7.6-11.0); Carbon Dioxide 31.1 mmol/L (21.0-32.0); Chloride 96 mmol/L (98-108); Estimated Creatinine Clearance 61.37 ml/min (50-250); Glucose 107 mg/dL (70-99); Potassium 4.3 mmol/L (3.3-5.1); Pro- Brain NATRIURETIC PEPTIDE 426 pg/mL (<=900); Troponin T High Sensitivity 32 ng/L (<=22)
--- NOTE | 2025-07-16 08:18 | CT_ITS ---
PROCEDURE: CTA CHEST W/WO CONTRAST 07/16/2025 REASON FOR EXAM: PULMONARY EMBOLISM TECHNIQUE: Procedure Code: [id number] Modality: CT Procedure: CTA CHEST W/WO CONTRAST Multiplanar Sagittal and Coronal images were obtained. CONTRAST: Isovue 370 VOLUME: 100 mL One or more dose reduction techniques were used (e.g., Automated exposure control, adjustment of the mA and/or kV according to patient size, use of iterative reconstruction technique). RADIATION DOSE SUMMARY: CTDlvol: 4.0 mGy DLP: 142.99 mGycm COMPARISON: 06/01/2025. # of known CTs in the past 12 months: 2 # of known Cardiac Nuclear Medicine Studies in the past 12 months: 0 FINDINGS: Thoracic Aorta: No aneurysm. Atherosclerotic calcifications. Heart: No cardiomegaly. Atherosclerotic calcifications of the coronary arteries. Pulmonary Vessels: Patent. Hardware: None. Lymph nodes: No lymphadenopathy. Lungs and Airways: Increase in size and number of multiple bilateral pulmonary nodule. For example a left upper lobe nodule measures 2.3 x 1.7 cm, previously measured 2 x 1.5 cm. Pleura: No pleural effusion or pneumothorax. Upper Abdomen: A 6 mm stone at the midpole of the left kidney. Bones: No acute bony elements. No evidence of pulmonary embolus. CT/CTA Chest W/WO Contrast IMPRESSION: No evidence of pulmonary embolism. Increase in size and number of multiple bilateral pulmonary nodule. For example a left upper lobe nodule measures 2.3 x 1.7 cm, previously measured 2 x 1.5 cm. This can be infectious, inflammatory or neopla stic. Reading Location: [facility]
[2025-07-16 09:55] LABS: Troponin T High Sens 2 HR 26 ng/L (<=22)
== END 2025-07-16 10:20 | disposition home or self-care (01) ==
PROVIDERS: Emergency Provider Emergency Medicine; PCP Nurse Practitioner Family; Visit Provider Emergency Medicine
DX: J44.1 Chronic obstructive pulmonary disease with (acute) exacerbation (principal); I10 Essential (primary) hypertension; Z87.891 Personal history of nicotine dependence; R09.02 Hypoxemia; R07.9 Chest pain, unspecified; Z99.81 Dependence on supplemental oxygen; Z79.899 Other long term (current) drug therapy; F41.9 Anxiety disorder, unspecified; Z79.51 Long term (current) use of inhaled steroids; R06.02 Shortness of breath; Z96.611 Presence of right artificial shoulder joint; Z96.612 Presence of left artificial shoulder joint
CPT/HCPCS: 71045; 71275; 80048; 83880; 84484; 85025; 87631; 93005; 94640; 96374; 99284; Q9967; A4216

== ENCOUNTER 2025-08-04 21:19 | Inpatient (IN) | payer OTHER, SELFPAY ==
[2025-08-04 21:20] VITALS: BP 161/103; PULSE 108; PULSE 110; RESP 14; RESP 25; RESP 28; TEMP 36.4; O2SAT 100; BMI 21.0
--- NOTE | 2025-08-04 21:25 | EKG12_ITS ---
Test Reason : SOB Blood Pressure : */* mmHG Vent. Rate : 106 BPM Atrial Rate : 106 BPM P-R Int : 148 ms QRS Dur : 68 ms QT Int : 318 ms P-R-T Axes : 81 72 48 degrees QTcB Int : 422 ms Sinus tachycardia with Premature atrial complexes Nonspecific ST abnormality Abnormal ECG Confirmed by DEBRA JOHNS, MELLISSA ([id number]), writer editor STEFAN POLLARD ([id number]) on 08/09/2025 6:25:05 AM Referred By: JAILYN Confirmed By: MELLISSA RICHARDSON MD
[2025-08-04 21:34] VITALS: O2SAT 99
[2025-08-04 21:37] VITALS: O2SAT 99
[2025-08-04 21:47] LABS: Allen Test Positive; Base Excess 3 mmol/L (-2 to +2); FI02 30.0; PO2 94 mmHG (75-100); SITE L Radial; SO2 96 % (94-98)
--- OUTSIDE RECORDS SUMMARY | 2025-08-04 22:13 | XMS RPT_ITS | CCD ---
Author Organization [facility] Care Team Providers Care Commercial Appraiser Name Role Phone SAHARA JAY Attending Unavailable SAHARA JAY Primary Care Unavailable SAHARA JAY Admitting Unavailable RADHA STAHL MD, III Primary Care Physician RADHA STAHL MD, III Primary Care Physician Dr. Jr Ryan Primary Care Provider Dr. Carmelo Bauer Emergency Provider [phone] Fatemeh Estrella Admit Provider Dr. Fatemeh Estrella Attending Provider [phone] Fatemeh Estrella Other Provider Dr. Carri Worley Attending Provider Dr. Carri Worley Other Provider RADHA STAHL MD, III Primary Care UnavailJUAN Dukes Attending Unavailable JR RYAN Primary Care Unavailable Dr. Jr Ryan Primary Care Provider Dr. Migel Iqbal Emergency Provider Dr. Anirudh Thompson Admit Provider Dr. Anirudh Thompson Attending Provider [phone] Anirudh Thompson Other Provider Dr. Fadi Lloyd Attending Provider Dr. Fadi Lloyd Other Provider Jr Ryan DO Primary Care Provider Dr. Jr Ryan DO Primary Care Provider Dr. Todd Valdovinos DO Emergency Provider Dr. Anirudh Thompson DO Admit Provider Dr. Anirudh Thompson DO Attending Provider Georgina SHIP WIRER-C, Michelle Sanaz Primary Care Provider [phone] Dr. Jr Ryan DO Primary Care Provider Dr. Anirudh Thompson DO Other Provider [phone] Cande JOHNS, Dr. Stafufer Attending Provider CHARLES, NARIMAN A Referring Unavailable [...] Pike DO Emergency Department Physi parvin Georgina SHIP WIRER-C, Michelle Sanaz Primary Care Physician Dr. Karen Le DO Admitting Physician Dr. Karen Le DO Attending Physician Rey LI, Dr. Jones Nurse Practitioner Jopperi, Anirudh Attending Unavailable Connor, Jr Primary Care Unavailable Jopperi, Anirudh Consulting Unavailable Jopperi, Anirudh Attending Unavailable Jopperi, Anirudh Admitting Unavailable Georgina SHIP WIRER, Michelle Sanaz Primary Care Unavailabl e Eh Castellon Attending Unavailable Jopperi, Anirudh Referring Unavailable Connor, Jr Primary Care Unavailable CandeEh Attending Unavailable Connor, Jr Primary Care Unavailable Roof SHIP WIRER, Bentley Rodgers Attending Unavailable Connor, Jr Primary Care Unavailable Connor, Jr Referring Unavailable Roof SHIP WIRER, Bentley H Attending Unavailable Karen Le Consulting Unavailable Karen Le Attending Unavailable Karen Le Admitting Unavailable Kapper SHIP WIRER, Michelle Sanaz Primary Care Unavailabl e Jopperi, Anirudh Attending Unavailable Georgina SHIP WIRER, [facility] UnavailAnirudh Mejia Admitting Unavailable Karen Le Attending Unavailable Karen Le Admitting Unavailable Georgina SHIP WIRER, [facility] Unavailabl e CHARLES, NARIMAN A Attending Unavailable JR RYAN Primary Care Unavailable TIGRE RESTREPO Attending Unavailable JR RYAN Primary Care Unavailable Allergies Allergy Classification Reported Allergen(s) Allergy Type Date of Onset Reaction(s) Facility (20 sources) Lisinopril; Translations: [LISINOPRIL] Drug Allergy 7 Cough [facility] (20 sources) Naproxen; Translations: [NAPROXEN] Drug Allergy 7 GI Upset [facility] (20 sources) TRIAMTERENE-HYDR OCHLOROTHIAZID; Translations: [TRIAMTERENE-HYD ROCHLOROTHIAZID] Propensity to adverse reactions to drug (disorder) 7 Intolerance [facility] Medications Current Medications Medication Drug Class(es) Dates Sig (Normalized) Sig (Original) [id number] 200 actuat albuterol 0.09 mg/actuat metered dose [...] take 1 puff(s) by inhalation once daily jjgzrhlwcmc-wmogxswaq-rxteniae (TRELEGY ELLIPTA) 100-62.5-25 mcg inhalation powder Inhale [...] mg PO DAILY December 17, 2023 12:00am [facility] Complies with drug therapy Start: 12-17-2023 take [...] extended release oral tablet (9 sources) Uncompetitive H-pbntmx-C-aspartate Receptor Antagonist, Sigma-1 Agonist Start: 12-20-2023 End: [...] Coronary atherosclerosis; Translations: [Atherosclerotic heart disease of [place] coronary artery without angina pectoris] Onset: 12-09-2024 [...] Facility CNCOon 06-23-2025 CNCO Letter Text Normal [facility] Absolute lymphocyte countOrd ered By: Karen Le on 06-02-2025 Lymphocytes Auto (Unsp spec) [#/Vol] 0.36 10*3/uL Low 0.83-4.51 [facility] Absolute neutrophil countOrd ered By: Karen Le on 06-02-2025 Neutrophils (Bld) [#/Vol] 7.4 10*3/uL 2.0-7.7 [facility] Anion gap in Serum or Plasma Ordered By: Karen Le on 06-02-2025 Anion gap [Moles/Vol] 8 mmol/L 5-15 [facility] Automated lymphocyte count a s percentage of total leukocytesOrdered By: Karen Le on 06-02-2025 Lymphocytes/100 WBC Auto (Unsp spec) 4.5 % Low - [facility] BUN/creatinine ratioOrdered By: Karen Le on 06-02-2025 Urea nitrogen/Creatinine [Mass ratio] 31.4 mg/mg High 10- [facility] Basophil percentageOrdered B y: Karen Le on 06-02-2025 Basophils/100 WBC (Bld) 0.1 % 0-1 [facility] Bilirubin, totalOrdered By: Karen Le on 06-02-2025 Bilirubin [Mass/Vol] 0.44 mg/dL 0.00-1.30 [facility] CBC W/Diff, Automatedon Absolute Lymph 0.36 X10 3/uL Low 0.83-4.51 [facility] Comment on above: Performed By: #### L 501.5200, L500.2500, L100.0100 #### [facility] [address] [place], [address] Absolute Neut 7.4 X10 3/uL Normal 2.0-7.7 [facility] Comment on above: Performed By: #### L 501.5200, L500.2500, L100.0100 #### [facility] [address] [place], [address] Basophils/100 WBC (Bld) 0.1 % Normal 0-1 [facility] Comment on above: Performed By: #### L 501.5200, L500.2500, L100.0100 #### [facility] [address] [place], [address] Eosinophils/100 WBC (Bld) 0.0 % Normal 0-5 [facility] Comment on above: Performed By: #### L 501.5200, L500.2500, L100.0100 #### [facility] [address] [place], [address] Erythrocyte distribution width (RBC) [Ratio] 14.3 % Normal 11.6-14.6 [facility] Comment on above: Performed By: #### L 501.5200, L500.2500, L100.0100 #### [facility] [address] [place], [address] Hematocrit (Bld) [Volume fraction] 38.0 % Low 40-54 [facility] Comment on above: Performed By: #### L 501.5200, L500.2500, L100.0100 #### [facility] [address] [place], [address] Hemoglobin (Bld) [Mass/Vol] 12.8 g/dL Low 13.0-16.5 [facility] Comment on above: Performed By: #### L 501.5200, L500.2500, L100.0100 #### [facility] [address] [place], [address] IG% 0.400 Normal 0.0-0.9 [facility] Comment on above: Result Comment: IG% - Immature Granulocytes (promyelocytes, myelocytes and metamyelocytes) > 1% indicates that a LEFT SHIFT is Present. Performed By: #### L 501.5200, L500.2500, L100.0100 #### [facility] [address] [place], [address] Lymphocytes/100 WBC (Bld) 4.5 % Low 19-41 [facility] Comment on above: Performed By: #### L 501.5200, L500.2500, L100.0100 #### [facility] [address] [place], [address] MCH (RBC) [Entitic mass] 29.1 pg Normal 27.0-32.0 [facility] Comment on above: Performed By: #### L 501.5200, L500.2500, L100.0100 #### [facility] [address] [place], [address] MCHC (RBC) [Mass/Vol] 33.7 g/dL Normal 32-36 [facility] Comment on above: Performed By: #### L 501.5200, L500.2500, L100.0100 #### [facility] [address] [place], [address] MCV (RBC) [Entitic vol] 86.4 fL Normal 80-94 [facility] Comment on above: Performed By: #### L 501.5200, L500.2500, L100.0100 #### [facility] [address] [place], [address] Monocytes/100 WBC (Bld) 2.5 % Normal 0-10 [facility] Comment on above: Performed By: #### L 501.5200, L500.2500, L100.0100 #### [facility] [address] [place], [address] Neutrophils/100 WBC (Bld) 92.5 % High 47-70 [facility] Comment on above: Performed By: #### L 501.5200, L500.2500, L100.0100 #### [facility] [address] [place], [address] Nucleated RBC (Bld) [#/Vol] 0 10*3/uL Normal 0-5 [facility] Comment on above: Performed By: #### L 501.5200, L500.2500, L100.0100 #### [facility] [address] [place], [address] Platelet mean volume (Bld) [Entitic vol] 9.5 fL Normal 6.2-12.0 [facility] Comment on above: Performed By: #### L 501.5200, L500.2500, L100.0100 #### [facility] [address] [place], [address] Platelets (Bld) [#/Vol] 229 10*3/uL Normal 150-450 [facility] Comment on above: Performed By: #### L 501.5200, L500.2500, L100.0100 #### [facility] [address] [place], [address] RBC (Bld) [#/Vol] 4.40 10*6/uL Low 4.6-6.2 [facility] Comment on above: Performed By: #### L 501.5200, L500.2500, L100.0100 #### [facility] [address] [place], [address] RDW SD 45.5 fl High 35.1-43.9 [facility] Comment on above: Performed By: #### L 501.5200, L500.2500, L100.0100 #### [facility] [address] [place], [address] WBC (Bld) [#/Vol] 8.0 10*3/uL Normal 4.4-11.0 [facility] Comment on above: Performed By: #### L 501.5200, L500.2500, L100.0100 #### [facility] [address] [place], [address] Carbon dioxide, total [Moles /volume] in Central venous bloodOrdered By: Karen Le on 06-02-2025 CO2 [Moles/Vol] 27.5 mmol/L 21.0-32.0 [facility] Chloride assayOrdered By: Sejal lopezconnie Rey on 06-02-2025 Chloride [Moles/Vol] 101 mmol/L 98-108 [facility] Comprehensive Metabolic Prof ilon 06-02-2025 Albumin [Mass/Vol] 3.7 g/dL Normal 3.4-4.8 [facility] Comment on above: Performed By: #### L 501.5200, L500.2500, L100.0100 #### [facility] [address] [place], [address] Albumin/Globulin [Mass ratio] 2.0 {ratio} Normal 0.9-2.4 [facility] Comment on above: Performed By: #### L 501.5200, L500.2500, L100.0100 #### [facility] [address] [place], [address] ALK PHOS 60 U/L Normal 40-129 [facility] Comment on above: Performed By: #### L 501.5200, L500.2500, L100.0100 #### [facility] [address] [place], [address] ALT [Catalytic activity/Vol] 19 U/L Normal <=46 [facility] Comment on above: Performed By: #### L 501.5200, L500.2500, L100.0100 #### [facility] [address] [place], [address] AST [Catalytic activity/Vol] 20 U/L Normal <=37 [facility] Comment on above: Performed By: #### L 501.5200, L500.2500, L100.0100 #### [facility] [address] [place], [address] Bilirubin [Mass/Vol] 0.44 mg/dL Normal 0.00-1.30 [facility] Comment on above: Performed By: #### L 501.5200, L500.2500, L100.0100 #### [facility] [address] [place], [address] BUN/CRE 31.4 RATIO High 10-20 [facility] Comment on above: Performed By: #### L 501.5200, L500.2500, L100.0100 #### [facility] [address] [place], [address] Calcium [Mass/Vol] 9.2 mg/dL Normal 7.6-11.0 [facility] Comment on above: Performed By: #### L 501.5200, L500.2500, L100.0100 #### [facility] [address] [place], [address] Chloride [Moles/Vol] 101 mmol/L Normal 98-108 [facility] Comment on above: Performed By: #### L 501.5200, L500.2500, L100.0100 #### [facility] [address] [place], [address] CO2 [Moles/Vol] 27.5 mmol/L Normal 21.0-32.0 [facility] Comment on above: Performed By: #### L 501.5200, L500.2500, L100.0100 #### [facility] [address] [place], [address] Creatinine [Mass/Vol] 0.73 mg/dL Normal 0.70-1.20 [facility] Comment on above: Performed By: #### L 501.5200, L500.2500, L100.0100 #### [facility] [address] [place], [address] ECRCL 61.33 ml/min Normal 50-250 [facility] Comment on above: Performed By: #### L 501.5200, L500.2500, L100.0100 #### [facility] [address] [place], [address] GAP 8 Normal 5-15 [facility] Comment on above: Performed By: #### L 501.5200, L500.2500, L100.0100 #### [facility] [address] [place], [address] GFR/1.73 sq M.predicted among non-blacks MDRD (S/P/Bld) [Vol rate/Area] 95 mL/min/{1.73_m2} Normal >60 [facility] Comment on above: Result Comment: mL/m in/1.73m2 CKD-EPI Creatinine Equation (2020) Performed By: #### L 501.5200, L500.2500, L100.0100 #### [facility] [address] [place], [address] Globulin (S) [Mass/Vol] 1.9 g/dL Low 2.2-4.2 [facility] Comment on above: Performed By: #### L 501.5200, L500.2500, L100.0100 #### [facility] [address] [place], [address] Glucose [Mass/Vol] 165 mg/dL High 70-99 [facility] Comment on above: Performed By: #### L 501.5200, L500.2500, L100.0100 #### [facility] [address] [place], [address] Potassium [Moles/Vol] 4.7 mmol/L Normal 3.3-5.1 [facility] Comment on above: Performed By: #### L 501.5200, L500.2500, L100.0100 #### [facility] [address] [place], [address] Sodium [Moles/Vol] 137 mmol/L Normal 133-145 [facility] Comment on above: Performed By: #### L 501.5200, L500.2500, L100.0100 #### [facility] [address] [place], [address] T PROT 5.6 g/dL Low 5.9-8.4 [facility] Comment on above: Performed By: #### L 501.5200, L500.2500, L100.0100 #### [facility] [address] [place], [address] Urea nitrogen [Mass/Vol] 23 mg/dL High 4-19 [facility] Comment on above: Performed By: #### L 501.5200, L500.2500, L100.0100 #### [facility] [address] [place], [address] Eosinophil percentageOrdered By: Karen Le on 06-02-2025 Eosinophils/100 WBC (Bld) 0.0 % 0-5 [facility] Erythrocyte distribution wid th ratioOrdered By: Karen Le on 06-02-2025 Erythrocyte distribution width (RBC) [Ratio] 14.3 % 11.6-14.6 [facility] Erythrocyte distribution wid th standard deviationOrdered By: Karen Le on 06-02-2025 Erythrocyte distribution width (RBC) [Ratio] 45.5 fl High 35.1-43.9 [facility] Glomerular filtration rate ( GFR) estimation/1.73 sq m using serum, plasma, or whole bOrdered By: Karen Le on 06-02-2025 GFR/1.73 sq M.predicted among non-blacks MDRD (S/P/Bld) [Vol rate/Area] 95 mL/min/{1.73_m2} >60 [facility] Comment on above: mL/min/1.73m2 CKD-EP I Creatinine Equation (2020) Hematocrit Auto (Bld) [Volum e fraction]Ordered By: Karen Le on 06-02-2025 Hematocrit (Bld) [Volume fraction] 38.0 % Low 40-54 [facility] Hemoglobin measurementOrdere d By: Karen Le on 06-02-2025 Hemoglobin (Bld) [Mass/Vol] 12.8 g/dL Low 13.0-16.5 [facility] Immature granulocytes/100 WB C Auto (Bld)Ordered By: Karen Le on 06-02-2025 Immature granulocytes/100 WBC (Bld) 0.400 % 0.0-0.9 [facility] Comment on above: IG% - Immature Granu locytes (promyelocytes, myelocytes and metamyelocytes) > 1% indicates that a LEFT SHIFT is Present. Laboratory - Chemistry and C hemistry - challengeOrdered By: Karen Le on 06-02-2025 AST [Catalytic activity/Vol] 20 U/L <38 [facility] MCV (mean corpuscular volume ) determinationOrdered By: Karen Le on 06-02-2025 MCV (RBC) [Entitic vol] 86.4 fL 80-94 [facility] Magnesiumon 06-02-2025 Magnesium [Mass/Vol] 2.0 mg/dL Normal 1.5-2.2 [facility] Comment on above: Performed By: #### L 501.5200, L500.2500, L100.0100 #### [facility] [address] [place] [address], [id number] Magnesium measurement (mass/ volume)Ordered By: Karen Le on 06-02-2025 Magnesium (Unsp spec) [Mass/Vol] 2.0 mg/dL 1.5-2.2 [facility] Mean corpuscular hemoglobin (MCH) determinationOrdered By: Karen Le on 06-02-2025 MCH (RBC) [Entitic mass] 29.1 pg 27.0-32.0 [facility] Mean corpuscular hemoglobin concentration (MCHC) determinationOrdered By: Karen Le on 06-02-2025 MCHC (RBC) [Mass/Vol] 33.7 g/dL 32-36 [facility] Mean platelet volume determi nationOrdered By: Karen Le on 06-02-2025 Platelet mean volume (Bld) [Entitic vol] 9.5 fL 6.2-12.0 [facility] Monocyte percentageOrdered B y: Karen Le on 06-02-2025 Monocytes/100 WBC (Bld) 2.5 % 0-10 [facility] Neutrophil percentageOrdered By: Karen Le on 06-02-2025 Neutrophils/100 WBC (Bld) 92.5 % High 47-70 [facility] Nucleated red blood cell per centageOrdered By: Karen Le on 06-02-2025 Nucleated RBC/100 WBC (Bld) [Ratio] 0 % 0-5 [facility] Phosphoruson 06-02-2025 Phosphate [Mass/Vol] 3.2 mg/dL Normal 2.7-4.5 [facility] Comment on above: Performed By: #### L 501.5200, L500.2500, L100.0100 #### [facility] [address] [place], [address] Platelet countOrdered By: Sejal Le on 06-02-2025 Platelets (Bld) [#/Vol] 229 10*3/uL 150-450 [facility] Potassium measurement (mass/ volume)Ordered By: Karen Le on 06-02-2025 Potassium (Unsp spec) [Mass/Vol] 4.7 mmol/L 3.3-5.1 [facility] RBC Auto (Bld) [#/Vol]Ordere d By: Karen Le on 06-02-2025 RBC (Bld) [#/Vol] 4.40 10*6/uL Low 4.6-6.2 [facility] Serum creatinine measurement (mass/volume)Ordered By: Karen Le on 06-02-2025 Creatinine [Mass/Vol] 0.73 mg/dL 0.70-1.20 [facility] Serum globulin measurementOr dered By: Karen Le on 06-02-2025 Globulin (S) [Mass/Vol] 1.9 g/dL Low 2.2-4.2 [facility] Serum glucose measurement (m ass/volume)Ordered By: Karen Le on 06-02-2025 Glucose [Mass/Vol] 165 mg/dL High 70-99 [facility] Serum or plasma alanine orta otransferase (ALT) measurementOrdered By: Karen Le on 06-02-2025 ALT [Catalytic activity/Vol] 19 U/L <47 [facility] Serum or plasma albumin christiana urement (mass/volume)Ordered By: Karen Le on 06-02-2025 Albumin [Mass/Vol] 3.7 g/dL 3.4-4.8 [facility] Serum or plasma albumin/glob ulin mass ratioOrdered By: Karen Le on 06-02-2025 Albumin/Globulin [Mass ratio] 2.0 {ratio} 0.9-2.4 [facility] Serum or plasma alkaline rachel sphatase measurementOrdered By: Karen Le on 06-02-2025 ALP [Catalytic activity/Vol] 60 U/L 40-129 [facility] Serum or plasma calcium christiana urement (mass/volume)Ordered By: Karen Le on 06-02-2025 Calcium [Mass/Vol] 9.2 mg/dL 7.6-11.0 [facility] Serum or plasma urea nitroge n measurement (mass/volume)Ordered By: Karen Le on 06-02-2025 Urea nitrogen [Mass/Vol] 23 mg/dL High 4-19 [facility] Sodium levelOrdered By: Kira Le on 06-02-2025 Sodium [Moles/Vol] 137 mmol/L 133-145 [facility] Total proteinOrdered By: Caridad Le on 06-02-2025 Protein [Mass/Vol] 5.6 g/dL Low 5.9-8.4 [facility] White blood cell (WBC) count Ordered By: Karen Le on 06-02-2025 WBC (Bld) [#/Vol] 8.0 10*3/uL 4.4-11.0 [facility] 12 Lead EKGon 06-01-2025 12 Lead EKG [facility] [address] [place] [address] 12 Lead EKG 06/01/25 0729 MR#: [id number] Acct: [id number] Name: BEATRIS QUINN Rep #: [id number] : 1950 74 From: Eh Castellon MD [...] Normal ECG Confirmed by EH CASTELLON MD ([id number]), script editor MICHELLE ROMERO ([id number]) on 06/02/2025 1:25:02 PM Referred By: Confirmed By: EH CASTELLON MD 06/02/25 1325 Date Eh Castellon MD CC: SHIP WIRER-C Michelle Ferraro; Dr. Vivi Pike DO; Dr. Karen Le DO Signed Normal [facility] Absolute lymphocyte countOrd ered By: Vivi Pike on 06-01-2025 Lymphocytes Auto (Unsp spec) [#/Vol] 1.29 10*3/uL 0.83-4.51 [facility] Absolute neutrophil countOrd ered By: Vivi Pike on 06-01-2025 Neutrophils (Bld) [#/Vol] 5.8 10*3/uL 2.0-7.7 [facility] Anion gap in Serum or Plasma Ordered By: Vivi Pike on 06-01-2025 Anion gap [Moles/Vol] 8 mmol/L 5- [facility] Automated lymphocyte count a s percentage of total leukocytesOrdered By: Vivi Pike on 06-01-2025 Lymphocytes/100 WBC Auto (Unsp spec) 15.9 % Low 19-41 [facility] BUN/creatinine ratioOrdered By: Vivi Pike on 06-01-2025 Urea nitrogen/Creatinine [Mass ratio] 26.3 mg/mg High 10- [facility] Basophil percentageOrdered B y: Vivi Pike on 06-01-2025 Basophils/100 WBC (Bld) 0.5 % 0-1 [facility] Bilirubin, totalOrdered By: Vivi Pike on 06-01-2025 Bilirubin [Mass/Vol] 0.70 mg/dL 0.00-1.30 [facility] CBC W/Diff, Automatedon Absolute Lymph 1.29 X10 3/uL Normal 0.83-4.51 [facility] Comment on above: Performed By: #### L 100.0100, L500.4050 #### [facility] [address] [place], [address] Absolute Neut 5.8 X10 3/uL Normal 2.0-7.7 [facility] Comment on above: Performed By: #### L 100.0100, L500.4050 #### [facility] [address] [place], [address] Basophils/100 WBC (Bld) 0.5 % Normal 0-1 [facility] Comment on above: Performed By: #### L 100.0100, L500.4050 #### [facility] [address] [place], [address] Eosinophils/100 WBC (Bld) 2.2 % Normal 0-5 [facility] Comment on above: Performed By: #### L 100.0100, L500.4050 #### [facility] [address] [place], [address] Erythrocyte distribution width (RBC) [Ratio] 14.4 % Normal 11.6-14.6 [facility] Comment on above: Performed By: #### L 100.0100, L500.4050 #### [facility] [address] [place], [address] Hematocrit (Bld) [Volume fraction] 42.7 % Normal 40-54 [facility] Comment on above: Performed By: #### L 100.0100, L500.4050 #### [facility] [address] [place], [address] Hemoglobin (Bld) [Mass/Vol] 14.1 g/dL Normal 13.0-16.5 [facility] Comment on above: Performed By: #### L 100.0100, L500.4050 #### [facility] [address] [place], [address] IG% 0.600 Normal 0.0-0.9 [facility] Comment on above: Result Comment: IG% - Immature Granulocytes (promyelocytes, myelocytes and metamyelocytes) > 1% indicates that a LEFT SHIFT is Present. Performed By: #### L 100.0100, L500.4050 #### [facility] [address] [place], [address] Lymphocytes/100 WBC (Bld) 15.9 % Low 19-41 [facility] Comment on above: Performed By: #### L 100.0100, L500.4050 #### [facility] [address] [place], [address] MCH (RBC) [Entitic mass] 28.7 pg Normal 27.0-32.0 [facility] Comment on above: Performed By: #### L 100.0100, L500.4050 #### [facility] [address] [place], [address] MCHC (RBC) [Mass/Vol] 33.0 g/dL Normal 32-36 [facility] Comment on above: Performed By: #### L 100.0100, L500.4050 #### [facility] [address] [place], [address] MCV (RBC) [Entitic vol] 86.8 fL Normal 80-94 [facility] Comment on above: Performed By: #### L 100.0100, L500.4050 #### [facility] [address] [place], [address] Monocytes/100 WBC (Bld) 9.4 % Normal 0-10 [facility] Comment on above: Performed By: #### L 100.0100, L500.4050 #### [facility] [address] [place], [address] Neutrophils/100 WBC (Bld) 71.4 % High 47-70 [facility] Comment on above: Performed By: #### L 100.0100, L500.4050 #### [facility] [address] [place], [address] Nucleated RBC (Bld) [#/Vol] 0 10*3/uL Normal 0-5 [facility] Comment on above: Performed By: #### L 100.0100, L500.4050 #### [facility] [address] [place], [address] Platelet mean volume (Bld) [Entitic vol] 9.3 fL Normal 6.2-12.0 [facility] Comment on above: Performed By: #### L 100.0100, L500.4050 #### [facility] [address] [place], [address] Platelets (Bld) [#/Vol] 235 10*3/uL Normal 150-450 [facility] Comment on above: Performed By: #### L 100.0100, L500.4050 #### [facility] [address] [place], [address] RBC (Bld) [#/Vol] 4.92 10*6/uL Normal 4.6-6.2 [facility] Comment on above: Performed By: #### L 100.0100, L500.4050 #### [facility] [address] [place], [address] RDW SD 46.2 fl High 35.1-43.9 [facility] Comment on above: Performed By: #### L 100.0100, L500.4050 #### [facility] [address] [place], [address] WBC (Bld) [#/Vol] 8.1 10*3/uL Normal 4.4-11.0 [facility] Comment on above: Performed By: #### L 100.0100, L500.4050 #### [facility] [address] [place], [address] CTA Chest W/WO Contraston CTA Chest W/WO Contrast [facility] Imaging Services [address] [place] [address] CTA Chest W/WO Contrast MR#: [id number] Acct: [id number] Name: BEATRIS QUINN Rep #: [id number] : 1950 M 74 From: Misbah lara MD PCP: ROWENA FERRARO Status: REG ER Study: CTA Chest W/WO Contrast Date of Exam: 06/01/25 Exam# [id number] Ordering Dr: Karen Le DO PROCEDURE: CTA [...] nodules superimposed on emphysematous changes. Reading Location: [id number] CC: Dr. Karen Le DO; ROWENA FERRARO Parts Interpreter: Signed Normal [facility] Carbon dioxide, total [Moles /volume] in Central venous bloodOrdered By: Vivi Pike on 06-01-2025 CO2 [Moles/Vol] 29.4 mmol/L 21.0-32.0 [facility] Chest PA and Lateralon 06-01 Chest PA and Lateral [facility] Imaging Services [address] [place] [address] Chest PA and Lateral MR#: [id number] Acct: [id number] Name: BEATRIS QUINN Rep #: [id number] : 1950 M 74 From: Jim Powell MD PCP: ROWENA FERRARO Status: REG ER Study: Chest PA and Lateral Date of Exam: 06/01/25 Exam# [id number] Ordering Dr: Vivi Pike DO PROCEDURE: CHEST [...] No new consolidation. 2. Granulomas. Reading Location: [id number] CC: Dr. Vivi Pike, DO; ROWENA FERRARO Parts Interpreter: Signed Normal [facility] Chloride assayOrdered By: Sudheer Pike on 06-01-2025 Chloride [Moles/Vol] 100 mmol/L 98-108 [facility] Comprehensive Metabolic Prof ilon 06-01-2025 Albumin [Mass/Vol] 4.0 g/dL Normal 3.4-4.8 [facility] Comment on above: Performed By: #### L 100.0100, L500.4050 #### [facility] [address] [place], [address] Albumin/Globulin [Mass ratio] 1.8 {ratio} Normal 0.9-2.4 [facility] Comment on above: Performed By: #### L 100.0100, L500.4050 #### [facility] [address] [place], [address] ALK PHOS 67 U/L Normal 40-129 [facility] Comment on above: Performed By: #### L 100.0100, L500.4050 #### [facility] [address] [place], [address] ALT [Catalytic activity/Vol] 17 U/L Normal <=46 [facility] Comment on above: Performed By: #### L 100.0100, L500.4050 #### [facility] [address] [place], [address] AST [Catalytic activity/Vol] 23 U/L Normal <=37 [facility] Comment on above: Performed By: #### L 100.0100, L500.4050 #### [facility] [address] [place], [address] Bilirubin [Mass/Vol] 0.70 mg/dL Normal 0.00-1.30 [facility] Comment on above: Performed By: #### L 100.0100, L500.4050 #### [facility] [address] [place], [address] BUN/CRE 26.3 RATIO High 10-20 [facility] Comment on above: Performed By: #### L 100.0100, L500.4050 #### [facility] [address] [place], [address] Calcium [Mass/Vol] 9.3 mg/dL Normal 7.6-11.0 [facility] Comment on above: Performed By: #### L 100.0100, L500.4050 #### [facility] [address] [place], [address] Chloride [Moles/Vol] 100 mmol/L Normal 98-108 [facility] Comment on above: Performed By: #### L 100.0100, L500.4050 #### [facility] [address] [place], [address] CO2 [Moles/Vol] 29.4 mmol/L Normal 21.0-32.0 [facility] Comment on above: Performed By: #### L 100.0100, L500.4050 #### [facility] [address] [place], [address] Creatinine [Mass/Vol] 0.99 mg/dL Normal 0.70-1.20 [facility] Comment on above: Performed By: #### L 100.0100, L500.4050 #### [facility] [address] [place], [address] ECRCL 50.93 ml/min Normal 50-250 [facility] Comment on above: Performed By: #### L 100.0100, L500.4050 #### [facility] [address] [place], [address] GAP 8 Normal 5-15 [facility] Comment on above: Performed By: #### L 100.0100, L500.4050 #### [facility] [address] [place], [address] GFR/1.73 sq M.predicted among non-blacks MDRD (S/P/Bld) [Vol rate/Area] 80 mL/min/{1.73_m2} Normal >60 [facility] Comment on above: Result Comment: mL/m in/1.73m2 CKD-EPI Creatinine Equation (2020) Performed By: #### L 100.0100, L500.4050 #### [facility] [address] [place], [address] Globulin (S) [Mass/Vol] 2.2 g/dL Normal 2.2-4.2 [facility] Comment on above: Performed By: #### L 100.0100, L500.4050 #### [facility] [address] [place], [address] Glucose [Mass/Vol] 104 mg/dL High 70-99 [facility] Comment on above: Performed By: #### L 100.0100, L500.4050 #### [facility] [address] [place], [address] Potassium [Moles/Vol] 4.4 mmol/L Normal 3.3-5.1 [facility] Comment on above: Performed By: #### L 100.0100, L500.4050 #### [facility] [address] [place], [address] Sodium [Moles/Vol] 137 mmol/L Normal 133-145 [facility] Comment on above: Performed By: #### L 100.0100, L500.4050 #### [facility] [address] [place], [address] T PROT 6.1 g/dL Normal 5.9-8.4 [facility] Comment on above: Performed By: #### L 100.0100, L500.4050 #### [facility] [address] [place], [address] Urea nitrogen [Mass/Vol] 26 mg/dL High 4-19 [facility] Comment on above: Performed By: #### L 100.0100, L500.4050 #### [facility] [address] [place], [address] Emergency Department Summary on 06-01-2025 Emergency Department Summary [facility] Medical Records Department [address] [place] [address] Emergency Department Summary 06/01/25 MR#: [id number] Acct: [id number] Name: BEATRIS QUINN Eligio Rep #: [id number] : 1950 74 From: Vivi Pike DO [...] Recent immobilization, Recent surgery or Recent travel [facility] [place] Medical History Aortic stenosis Elevated coronary artery calcium score Urinary retention Heart murmur Anxiety On home oxygen therapy Acute hypoxemic respiratory failure Pneumonia COPD (chronic obstructive pulmonary disease) NINILCHIK (hard of hearing) Hypertension Home Medications ???Medication [...] 156/85 H (more content not included)... Normal [facility] Eosinophil percentageOrdered By: Vivi Pike on 06-01-2025 Eosinophils/100 WBC (Bld) 2.2 % 0-5 [facility] Erythrocyte distribution wid th ratioOrdered By: Vivi Pike on 06-01-2025 Erythrocyte distribution width (RBC) [Ratio] 14.4 % 11.6-14.6 [facility] Erythrocyte distribution wid th standard deviationOrdered By: Vivi Pike on 06-01-2025 Erythrocyte distribution width (RBC) [Ratio] 46.2 fl High 35.1-43.9 [facility] Glomerular filtration rate ( GFR) estimation/1.73 sq m using serum, plasma, or whole bOrdered By: Vivi Pike on 06-01-2025 GFR/1.73 sq M.predicted among non-blacks MDRD (S/P/Bld) [Vol rate/Area] 80 mL/min/{1.73_m2} >60 [facility] Comment on above: mL/min/1.73m2 CKD-EP I Creatinine Equation (2020) H AND P Exam - [place] 06-01-2025 H&P Exam - Hospitalist [facility] Medical Records Department [address] [place] [address] H P Exam - Hospitalist 06/01/25 1056 MR#: [id number] Acct: [id number] Name: BEATRIS QUINN Rep #: [id number] : 1950 74 From: Karen Le DO PCP: Michelle Ferraro, SHIP WIRER-C Status:ADM IN [place] [facility] [place] [id number] HPI - General General Date of Admission: 06/01/25 Date of Service: 06/01/25 Chief Complaint: Shortness of breath HPI Narrative BEATRIS QUINN, is a 74 M who presented to the emergency department at [facility] on 06/01/2025 with chief complaint of shortness [...] was made. He will be admitted to [facility] and at the time of admission I do anticipate at least 2 midnight stay. [facility] Medical History COPD (chronic obstructive pulmonary disease) Hypertension Aortic stenosis Elevated coronary artery calcium score Urinary retention Heart murmur Anxiety On home oxygen therapy Acute hypoxemic respiratory failure Pneumonia COPD (chronic obstructive pulmonary disease) NINILCHIK (hard of hearing) Hypertension Home Medications ???Medication [...] nasal congestio (more content not included)... Normal [facility] Hematocrit Auto (Bld) [Volum e fraction]Ordered By: Vivi Pike on 06-01-2025 Hematocrit (Bld) [Volume fraction] 42.7 % 40-54 [facility] Hemoglobin measurementOrdere d By: Vivi Pike on 06-01-2025 Hemoglobin (Bld) [Mass/Vol] 14.1 g/dL 13.0-16.5 [facility] Immature granulocytes/100 WB C Auto (Bld)Ordered By: Vivi Pike on 06-01-2025 Immature granulocytes/100 WBC (Bld) 0.600 % 0.0-0.9 [facility] Comment on above: IG% - Immature Granu locytes (promyelocytes, myelocytes and metamyelocytes) > 1% indicates that a LEFT SHIFT is Present. Influenza virus A and B and SARS-CoV-2 (COVID-19) and Respiratory syncytial virus RNAOrdered By: Vivi Pike on 06-01-2025 SARS-CoV-2 (COVID-19) RNA JELENA+probe Ql (Unsp spec) [facility] L501.4021on 06-01-2025 Trop T High Sen 32 ng/L High <=22 [facility] Comment on above: Performed By: #### L 501.5200, L500.2500, L100.0100 #### [facility] [address] [place], [address] Laboratory - Chemistry and C hemistry - challengeOrdered By: Vivi Pike on 06-01-2025 AST [Catalytic activity/Vol] 23 U/L <38 [facility] M100.678on 06-01-2025 M100.678 Pending SARS-CoV-2 (COVID 19) Negative INFLUENZA A Negative INFLUENZA B Negative RSV PCR Negative Normal [facility] Comment on above: Performed By: #### L 501.5200, L500.2500, L100.0100 #### [facility] [address] [place], [address] MCV (mean corpuscular volume ) determinationOrdered By: Vivi Pike on 06-01-2025 MCV (RBC) [Entitic vol] 86.8 fL 80-94 [facility] Mean corpuscular hemoglobin (MCH) determinationOrdered By: Vivi Pike on 06-01-2025 MCH (RBC) [Entitic mass] 28.7 pg 27.0-32.0 [facility] Mean corpuscular hemoglobin concentration (MCHC) determinationOrdered By: Vivi Pike on 06-01-2025 MCHC (RBC) [Mass/Vol] 33.0 g/dL 32-36 [facility] Mean platelet volume determi nationOrdered By: Vivi Pike on 06-01-2025 Platelet mean volume (Bld) [Entitic vol] 9.3 fL 6.2-12.0 [facility] Monocyte percentageOrdered B y: Vivi Pike on 06-01-2025 Monocytes/100 WBC (Bld) 9.4 % 0-10 [facility] Natriuretic peptide.B prohor [place] N-Terminal [Mass/volume] in Serum or PlasmaOrdered By: Karen Le on 06-01-2025 Natriuretic peptide.B prohormone N-Terminal [Mass/Vol] 273 pg/mL <900 [facility] Comment on above: Heart Failure Unlike ly: < 300 pg/mLHeart Failure Likely< 50 Years: > 450 pg/mL50-75 Years: > 900 pg/mL>75 Years: > 1800 pg/mL Neutrophil percentageOrdered By: Vivi Pike on 06-01-2025 Neutrophils/100 WBC (Bld) 71.4 % High 47-70 [facility] Nucleated red blood cell per centageOrdered By: Vivi Pike on 06-01-2025 Nucleated RBC/100 WBC (Bld) [Ratio] 0 % 0-5 [facility] Platelet countOrdered By: Sudheer Pike on 06-01-2025 Platelets (Bld) [#/Vol] 235 10*3/uL 150-450 [facility] Potassium measurement (mass/ volume)Ordered By: Vivi Pike on 06-01-2025 Potassium (Unsp spec) [Mass/Vol] 4.4 mmol/L 3.3-5.1 [facility] Pro- Brain NATRIURETIC PEPTI William 06-01-2025 Natriuretic peptide B (Bld) [Mass/Vol] 273 pg/mL Normal <=900 [facility] Comment on above: Result Comment: Hear t Failure Unlikely: < 300 pg/mL Heart Failure Likely < 50 Years: > 450 pg/mL 50-75 Years: > 900 pg/mL >75 Years: > 1800 pg/mL Performed By: #### L 501.5200, L500.2500, L100.0100 #### [facility] [address] [place] [address], [id number] RBC Auto (Bld) [#/Vol]Ordere d By: Vivi Pike on 06-01-2025 RBC (Bld) [#/Vol] 4.92 10*6/uL 4.6-6.2 [facility] RESPIRATORY PANEL MOLECULARo n 06-01-2025 RP PANEL ADENOVIRUS Not Detected INFLUENZA A Not Detected INFLUENZA A (SUBTYPE H1) Not Detected INFLUENZA A (SUBTYPE H3) Not Detected INFLUENZA B Not Detected HUMAN METAPHNEUMO Not Detected PARAINFLUENZA 1 Not Detected PARAINFLUENZA 2 Not Detected PARAINFLUENZA 3 Not Detected PARAINFLUENZA 4 Not Detected RHINOVIRUS Not Detected RSV A Not Detected RSV B Not Detected Normal [facility] Comment on above: Performed By: #### L 501.4030, L500.2500, L100.0100 #### [facility] [place], [address] Respiratory pathogens detect ion panel by molecular detection methodOrdered By: Karen Le on 06-01-2025 Respiratory pathogens DNA and RNA panel JELENA+probe (Resp) [facility] Serum creatinine measurement (mass/volume)Ordered By: Vivi Pike on 06-01-2025 Creatinine [Mass/Vol] 0.99 mg/dL 0.70-1.20 [facility] Serum globulin measurementOr dered By: Vivi Pike on 06-01-2025 Globulin (S) [Mass/Vol] 2.2 g/dL 2.2-4.2 [facility] Serum glucose measurement (m ass/volume)Ordered By: Vivi Pike on 06-01-2025 Glucose [Mass/Vol] 104 mg/dL High 70-99 [facility] Serum or plasma alanine orta otransferase (ALT) measurementOrdered By: Vivi Pike on 06-01-2025 ALT [Catalytic activity/Vol] 17 U/L <47 [facility] Serum or plasma albumin christiana urement (mass/volume)Ordered By: Vivi Pike on 06-01-2025 Albumin [Mass/Vol] 4.0 g/dL 3.4-4.8 [facility] Serum or plasma albumin/glob ulin mass ratioOrdered By: Vivi Pike on 06-01-2025 Albumin/Globulin [Mass ratio] 1.8 {ratio} 0.9-2.4 [facility] Serum or plasma alkaline rachel sphatase measurementOrdered By: Vivi Pike on 06-01-2025 ALP [Catalytic activity/Vol] 67 U/L 40-129 [facility] Serum or plasma calcium christiana urement (mass/volume)Ordered By: Vivi Pike on 06-01-2025 Calcium [Mass/Vol] 9.3 mg/dL 7.6-11.0 [facility] Serum or plasma urea nitroge n measurement (mass/volume)Ordered By: Vivi Pike on 06-01-2025 Urea nitrogen [Mass/Vol] 26 mg/dL High 4-19 [facility] Sodium levelOrdered By: Jenise Pike on 06-01-2025 Sodium [Moles/Vol] 137 mmol/L 133-145 [facility] TSH DL <= 0.005 mIU/L QnOrde red By: Vivi Pike on 06-01-2025 TSH Qn 3.320 uIU/mL 0.300-4.200 [facility] Thyroid Stim Hormone (TSH)on 06-01-2025 TSH 3.320 uIU/mL Normal 0.300-4.200 [facility] Comment on above: Performed By: #### L 501.5200, L500.2500, L100.0100 #### [facility] [address] [facility] [place], [place], [id number] (358) Total proteinOrdered By: Keily Pike on 06-01-2025 Protein [Mass/Vol] 6.1 g/dL 5.9-8.4 [facility] Troponin T HS 2 HRon 025 Trop T High Sen 32 ng/L High <=22 [facility] Comment on above: Performed By: #### L 499.0042 #### [facility] [address] [place], [place], [id number] Troponin T HS 4 HRon 025 Trop T High Sen 26 ng/L High <=22 [facility] Comment on above: Performed By: #### L 499.0043 #### [facility] [address] [place], [place], [id number] (758) Troponin T.cardiac [Mass/vol ume] in Serum or Plasma by High sensitivity methodOrdered By: Vivi Pike on 06-01-2025 Troponin T.cardiac High sensitivity method [Mass/Vol] 26 ng/L High <22 [facility] Troponin T.cardiac High sensitivity method [Mass/Vol] 32 ng/L High <22 [facility] Troponin T.cardiac High sensitivity method [Mass/Vol] 32 ng/L High <22 [facility] Comment on above: Delta: 17 on 5-1040 White blood cell (WBC) count Ordered By: Vivi Pike on 06-01-2025 WBC (Bld) [#/Vol] 8.1 10*3/uL 4.4-11.0 [facility] CNOVon 04-16-2025 CNOV Office Visit ([facility] ) BEATRIS QUINN ([id number]) 1950 M Date Time Provider Department 04/16/25 10:00 AM TIGRE RESTREPO [facility] During your visit today, we recorded the following information about you: Pulse Blood pressure Weight 72/minute 128/72 55.6 kg Tigre Restrepo MD 04/16/2025 10:39 AM [facility] [...] uysing prednisone 5 mg daily (given by [facility] emergency department physician) No weight loss, no fever Ct [...] distribution which are most likely infectious/inflammator y. Parts Interpreter: JawboneRenzo Transcribe Date/Time: Oct 20 2024 1:36P Dictated by : MICAELA FONTAINE MD This examination was interpreted and the report reviewed and electronically signed by: MICAELA FONTAINE MD on Oct 20 2024 2:05PM EST IMPRESSION: 1. Lung nodules - ICD9: 793.19, ICD10: R91.8 (primary diagnosis) Ct chest 02/06/2024: Lymphadenopathy up to 14 mm Multiple nodules, some are calcified, others have neoplastic appearance, largest 08l45dz lateral segment RML. Cavitary type lesion EDWIN [id number] Multiple large opacities, one of them is cavitated Course of antibiotic completed PET scan 03/2024 * Numerous metabolically active bilateral lung nodules are similar to 03/27/2024. * Dominant 2.9 cm left upper lobe nodule with resolved cavitary component. Ct chest 04/2024 Compared to 03/27/2024 exam, most of the (more content not included)... Normal [facility] CT CHEST WO IVCONon 04-16-20 CT CHEST WO IVCON * * *Final Report* * * DATE OF EXAM: Apr 16 2025 8:58AM [facility] 0541 - CT CHEST WO IVCON / [...] again seen. Both lungs as well as ufah-ay-oop-type pulmonary nodules and mucoid impaction, predominantly within [...] mild, diffuse bronchiectasis. Stable nodular opacities and grmi-nb-obw-type pulmonary nodules associated within the lungs. Mild, diffuse bronchiectasis. Secretions within the trachea and mainstem bronchi. Sequela of remote granulomatous disease. Overall, findings have not significantly changed in the interval. No radha lymphadenopathy is seen within the chest. Parts Interpreter: PSCB Transcribe Date/Time: Apr 17 2025 7:06A Dictated by : MIKE BLACKWOOD MD This examination was interpreted and the report reviewed and electronically signed by: MIKE BLACKWOOD MD on Apr 17 2025 4:14PM EST [id number] Normal [facility] Respiratory Cultureon 2024 RESPC Not obtained in [...] 80 R Minocycline Islt ELOY S Normal [facility] Comment on above: Performed By: #### L 501.5200, L500.2500, L100.0100 #### [facility] [address] [place], [address] 12 Lead EKGon 12-02-2024 12 Lead EKG [facility] Cardiovascular Services [address] [place] [address] 12 Lead EKG 12/01/24 1117 MR#: [id number] Acct: [id number] Name: BEATRIS QUINN Rep #: [id number] : 1950 73 From: Eh Castellon MD Attending Dr: Dr. Anirudh Thompson DO Status: DIS IN Ordering Dr: Anirudh Thompson DO Date: 12/02/24 Location: [facility] Sex: M C Admitted: 12/01/24 Test Reason [...] Anterior leads Confirmed by CANDE JOHNS, EH ([id number]), script editor MICHELLE ROMERO ([id number]) on 12/03/2024 8:44:47 AM Referred By: COLETTE Confirmed By: EH CASTELLON MD 12/03/2444 Date Eh Castellon MD CC: SHIP WIRER-C Michelle Ferraro; Dr. Anirudh Thompson, DO Signed Normal [facility] Absolute neutrophil countOrd ered By: Anirudh Thompson on 12-02-2024 Neutrophils (Bld) [#/Vol] 13.0 10*3/uL High 2.0-7.7 [facility] Anion gap in Serum or Plasma Ordered By: Anirudh Thompson on 12-02-2024 Anion gap [Moles/Vol] 10 mmol/L 5-15 [facility] BUN/creatinine ratioOrdered By: Anirudh Thompson on 12-02-2024 Urea nitrogen/Creatinine [Mass ratio] 24.4 mg/mg High 10-20 [facility] Basic Metabolic Profile (BMP )on 12-02-2024 BUN/CRE 24.4 RATIO High 10-20 [facility] Comment on above: Performed By: #### L 500.2500, L500.4100, L100.0100 #### [facility] [address] [place], [address] Calcium [Mass/Vol] 9.6 mg/dL Normal 7.6-11.0 [facility] Comment on above: Performed By: #### L 500.2500, L500.4100, L100.0100 #### [facility] [address] [place], [address] Chloride [Moles/Vol] 102 mmol/L Normal 98-108 [facility] Comment on above: Performed By: #### L 500.2500, L500.4100, L100.0100 #### [facility] [address] [place], [address] CO2 [Moles/Vol] 26.1 mmol/L Normal 21.0-32.0 [facility] Comment on above: Performed By: #### L 500.2500, L500.4100, L100.0100 #### [facility] [address] [place], [address] Creatinine [Mass/Vol] 0.84 mg/dL Normal 0.70-1.20 [facility] Comment on above: Performed By: #### L 500.2500, L500.4100, L100.0100 #### [facility] [address] [place], [address] ECRCL 62.26 ml/min Normal 50-250 [facility] Comment on above: Performed By: #### L 500.2500, L500.4100, L100.0100 #### [facility] [address] [place], [address] GAP 10 Normal 5-15 [facility] Comment on above: Performed By: #### L 500.2500, L500.4100, L100.0100 #### [facility] [address] [place], [address] GFR/1.73 sq M.predicted among non-blacks MDRD (S/P/Bld) [Vol rate/Area] 92 mL/min/{1.73_m2} Normal >60 [facility] Comment on above: Result Comment: mL/m in/1.73m2 CKD-EPI Creatinine Equation (2020) Performed By: #### L 500.2500, L500.4100, L100.0100 #### [facility] [address] [place], [address] Glucose [Mass/Vol] 174 mg/dL High 70-99 [facility] Comment on above: Performed By: #### L 500.2500, L500.4100, L100.0100 #### [facility] [address] [place], [address] Potassium [Moles/Vol] 4.5 mmol/L Normal 3.3-5.1 [facility] Comment on above: Performed By: #### L 500.2500, L500.4100, L100.0100 #### [facility] [address] [place], [address] Sodium [Moles/Vol] 138 mmol/L Normal 133-145 [facility] Comment on above: Performed By: #### L 500.2500, L500.4100, L100.0100 #### [facility] [address] [place], [address] Urea nitrogen [Mass/Vol] 21 mg/dL High 4-19 [facility] Comment on above: Performed By: #### L 500.2500, L500.4100, L100.0100 #### [facility] [address] [place], [address] Basophil percentageOrdered B y: Anirudh Thompson on 12-02-2024 Basophils/100 WBC (Bld) 0.1 % 0-1 [facility] CBC W/Diff, Automatedon 04-0 Absolute Lymph 0.30 X10 3/uL Low 0.83-4.51 [facility] Comment on above: Performed By: #### L 500.2500, L500.4100, L100.0100 #### [facility] [address] [place], [address] Absolute Neut 13.0 X10 3/uL High 2.0-7.7 [facility] Comment on above: Performed By: #### L 500.2500, L500.4100, L100.0100 #### [facility] [address] [place], [address] Basophils/100 WBC (Bld) 0.1 % Normal 0-1 [facility] Comment on above: Performed By: #### L 500.2500, L500.4100, L100.0100 #### [facility] [address] [place], [address] Eosinophils/100 WBC (Bld) 0.0 % Normal 0-5 [facility] Comment on above: Performed By: #### L 500.2500, L500.4100, L100.0100 #### [facility] [address] [place], [address] Erythrocyte distribution width (RBC) [Ratio] 14.3 % Normal 11.6-14.6 [facility] Comment on above: Performed By: #### L 500.2500, L500.4100, L100.0100 #### [facility] [address] [place], [address] Hematocrit (Bld) [Volume fraction] 36.6 % Low 40-54 [facility] Comment on above: Performed By: #### L 500.2500, L500.4100, L100.0100 #### [facility] [address] [place], [address] Hemoglobin (Bld) [Mass/Vol] 12.3 g/dL Low 13.0-16.5 [facility] Comment on above: Performed By: #### L 500.2500, L500.4100, L100.0100 #### [facility] [address] [place], [address] IG% 0.500 Normal 0.0-0.9 [facility] Comment on above: Result Comment: IG% - Immature Granulocytes (promyelocytes, myelocytes and metamyelocytes) > 1% indicates that a LEFT SHIFT is Present. Performed By: #### L 500.2500, L500.4100, L100.0100 #### [facility] [address] [place], [address] Lymphocytes/100 WBC (Bld) 2.2 % Low 19-41 [facility] Comment on above: Performed By: #### L 500.2500, L500.4100, L100.0100 #### [facility] [address] [place], [address] MCH (RBC) [Entitic mass] 29.3 pg Normal 27.0-32.0 [facility] Comment on above: Performed By: #### L 500.2500, L500.4100, L100.0100 #### [facility] [address] [place], [address] MCHC (RBC) [Mass/Vol] 33.6 g/dL Normal 32-36 [facility] Comment on above: Performed By: #### L 500.2500, L500.4100, L100.0100 #### [facility] [address] [place], [address] MCV (RBC) [Entitic vol] 87.1 fL Normal 80-94 [facility] Comment on above: Performed By: #### L 500.2500, L500.4100, L100.0100 #### [facility] [address] [place], [address] Monocytes/100 WBC (Bld) 2.0 % Normal 0-10 [facility] Comment on above: Performed By: #### L 500.2500, L500.4100, L100.0100 #### [facility] [address] [place], [address] Neutrophils/100 WBC (Bld) 95.2 % High 47-70 [facility] Comment on above: Performed By: #### L 500.2500, L500.4100, L100.0100 #### [facility] [address] [place], [address] Nucleated RBC (Bld) [#/Vol] 0 10*3/uL Normal 0-5 [facility] Comment on above: Performed By: #### L 500.2500, L500.4100, L100.0100 #### [facility] [address] [place], [address] Platelet mean volume (Bld) [Entitic vol] 9.9 fL Normal 6.2-12.0 [facility] Comment on above: Performed By: #### L 500.2500, L500.4100, L100.0100 #### [facility] [address] [place], [address] Platelets (Bld) [#/Vol] 294 10*3/uL Normal 150-450 [facility] Comment on above: Performed By: #### L 500.2500, L500.4100, L100.0100 #### [facility] [address] [place], [address] RBC (Bld) [#/Vol] 4.20 10*6/uL Low 4.6-6.2 [facility] Comment on above: Performed By: #### L 500.2500, L500.4100, L100.0100 #### [facility] [address] [place], [address] RDW SD 45.8 fl High 35.1-43.9 [facility] Comment on above: Performed By: #### L 500.2500, L500.4100, L100.0100 #### [facility] [address] [place], [address] WBC (Bld) [#/Vol] 13.7 10*3/uL High 4.4-11.0 [facility] Comment on above: Performed By: #### L 500.2500, L500.4100, L100.0100 #### [facility] [address] [place], [address] Calculated very low density lipoprotein (VLDL) cholesterol measurementOrdered By: Anirudh Thompson on 12-02-2024 VLDL Cholesterol 7 mg/dL 5-40 [facility] Carbon dioxide, total [Moles /volume] in Central venous bloodOrdered By: Anirudh Thompson on 12-02-2024 CO2 [Moles/Vol] 26.1 mmol/L 21.0-32.0 [facility] Cardiovascular stress test r eportOrdered By: Eh Castellon on 12-02-2024 Study report [facility] [address] [place] [address] MR#: [id number] Acct: [id number] Name: BEATRIS QUINN Rep #: [id number] : 1950 73 From: Eh Castellon MD [...] 1512 Date _ Eh Castellon MD CC: SHIP WIRER-C Michelle Ferraro; Dr. Anirudh Thompson, DO; Todd Valdovinos DO ~ Date Dictated: 12/02/241505 Date Transcribed: 12/02/241505 Parts Interpreter: CO Signed [facility] Work Phone: Chloride assayOrdered By: Yael Thompson on 12-02-2024 Chloride [Moles/Vol] 102 mmol/L 98-108 [facility] Eosinophil percentageOrdered By: Anirudh Thompson on 12-02-2024 Eosinophils/100 WBC (Bld) 0.0 % 0-5 [facility] Erythrocyte distribution wid th (RBC) [Ratio]Ordered By: Anirudh Thompson on 12-02-2024 Erythrocyte distribution width (RBC) [Entitic vol] 45.8 fL High 35.1-43.9 [facility] Erythrocyte distribution wid th ratioOrdered By: Anirudh Thompson on 12-02-2024 Erythrocyte distribution width (RBC) [Ratio] 14.3 % 11.6-14.6 [facility] Estimation of creatinine tiffany aranceOrdered By: Anirudh Thompson on 12-02-2024 Estimated Creatinine Clearance Calc 62.26 ml/min 50-250 [facility] GFR/1.73 sq M.predicted ruby g non-blacks MDRD (S/P/Bld) [Vol rate/Area]Ordered By: Anirudh Thompson on 12-02-2024 Estimated GFR (MDRD) Non-Af Amer 92 >60 [facility] Comment on above: mL/min/1.73m2 CKD-EP I Creatinine Equation (2020) Gram Stainon 12-02-2024 GS Not obtained in 1 hr , induce w/nebulized 0.9% NaCL Acceptable Specimen? Yes (<25 Epithelial cells per/lpf) Gram Stain 4+ Gram negative rods 2+ Gram positive cocci Rare Gram positive rods 2+ White Blood Cells 1+ Epithelial cells Normal [facility] Comment on above: Performed By: #### L 501.5200, L500.2500, L100.0100 #### [facility] [place], [address] Hematocrit Auto (Bld) [Volum e fraction]Ordered By: Anirudh Thompson on 12-02-2024 Hematocrit (Bld) [Volume fraction] 36.6 % Low 40-54 [facility] Hemoglobin measurementOrdere d By: Anirudh Thompson on 12-02-2024 Hemoglobin (Bld) [Mass/Vol] 12.3 g/dL Low 13.0-16.5 [facility] Immature granulocytes/100 WB C Auto (Bld)Ordered By: Anirudh Thompson on 12-02-2024 Immature granulocytes/100 WBC (Bld) 0.500 % 0.0-0.9 [facility] Comment on above: IG% - Immature Granu locytes (promyelocytes, myelocytes and metamyelocytes) > 1% indicates that a LEFT SHIFT is Present. L. pneumophila Ag Ql (U)Orde red By: Anirudh Thompson on 12-02-2024 Legionella Antigen [facility] LDL calc ser/plasOrdered By: Anirudh Thompson on 12-02-2024 LDL Cholesterol, Calculated 95 mg/dL [facility] Comment on above: Pncnmpmdyd=938-018 m g/dL & Higher Crar=667 mg/dL or greater Legionella Antigen Urineon 0 [...] been changed. 12/02/24 1326 by REGINALD Wang [facility] Comment on above: Performed By: #### L 501.5200, L500.2500, L100.0100 #### [facility] [address] [place], [address] Lipid Profileon 12-02-2024 CHOL:HDL 2.37 Normal [facility] Comment on above: Performed By: #### L 501.5200, L500.2500, L100.0100 #### [facility] [address] [place], [address] Cholesterol [Mass/Vol] 177 mg/dL Normal <=200 [facility] Comment on above: Result Comment: Chol esterol level, Desirable <200 mg/dL Borderline high cholesterol 200-239 mg/dL High cholesterol >=240 mg/dL Recommendations of the NCEP Adult Treatment Panel for the following risk-cutoff thresholds for the [place] population. Performed By: #### L 501.5200, L500.2500, L100.0100 #### [facility] [address] [place], [address] Cholesterol in HDL [Mass/Vol] 75 mg/dL Normal [facility] Comment on above: Result Comment: [place] Cholesterol Education Program (NCEP) guidelines: <40 mg/dL: Low HDL-cholesterol (major risk factor for CHD) >= 60 mg/dL: High HDL-cholesterol (negative risk factor for CHD) HDL-cholesterol is affected by a number of factors, e.g. smoking, exercise, hormones, sex and age. Performed By: #### L 501.5200, L500.2500, L100.0100 #### [facility] [address] [place], [address] Cholesterol in LDL [Mass/Vol] 95 mg/dL Normal [facility] Comment on above: Result Comment: Bord etwrdf=531-711 mg/dL Higher Hjxw=074 mg/dL or greater Performed By: #### L 501.5200, L500.2500, L100.0100 #### [facility] [address] [place], [address] Cholesterol in VLDL [Mass/Vol] 7 mg/dL Normal 5-40 [facility] Comment on above: Performed By: #### L 501.5200, L500.2500, L100.0100 #### [facility] [address] [facility] [place], [address] Triglyceride [Mass/Vol] 36 mg/dL Normal [facility] Comment on above: Result Comment: The drugs N-Acetylcysteine and Metamizole may falsely depress this assay. Normal range: <150 mg/dL Borderline High: 150-199 mg/dL High: 200-499 mg/dL Very High: >500 mg/dL Performed By: #### L 501.5200, L500.2500, L100.0100 #### [facility] [address] [facility] [address] [place], [place], [id number] Lymphocytes Auto (Unsp spec) [#/Vol]Ordered By: Anirudh Thompson on 12-02-2024 Lymphocytes (Bld) [#/Vol] 0.30 10*3/uL Low 0.83-4.51 [facility] Lymphocytes/100 WBC Auto (Un sp spec)Ordered By: Anirudh Thompson on 12-02-2024 Lymphocytes/100 WBC (Bld) 2.2 % Low 19-41 [facility] MCV (mean corpuscular volume ) determinationOrdered By: Anirudh Thompson on 12-02-2024 MCV (RBC) [Entitic vol] 87.1 fL 80-94 [facility] Mean corpuscular hemoglobin (MCH) determinationOrdered By: Anirudh Thompson on 12-02-2024 MCH (RBC) [Entitic mass] 29.3 pg 27.0-32.0 [facility] Mean corpuscular hemoglobin concentration (MCHC) determinationOrdered By: Anirudh Thompson on 12-02-2024 MCHC (RBC) [Mass/Vol] 33.6 g/dL 32-36 [facility] Mean platelet volume determi nationOrdered By: Anirudh Thompson on 12-02-2024 Platelet mean volume (Bld) [Entitic vol] 9.9 fL 6.2-12.0 [facility] Monocyte percentageOrdered B y: Anirudh Thompson on 12-02-2024 Monocytes/100 WBC (Bld) 2.0 % 0-10 [facility] Neutrophil percentageOrdered By: Anirudh Thompson on 12-02-2024 Neutrophils/100 WBC (Bld) 95.2 % High 47-70 [facility] Nucleated red blood cell per centageOrdered By: Anirudh Thompson on 12-02-2024 Nucleated RBC/100 WBC (Bld) [Ratio] 0 % 0-5 [facility] Platelet countOrdered By: Yael Thompson on 12-02-2024 Platelets (Bld) [#/Vol] 294 10*3/uL 150-450 [facility] Potassium (Unsp spec) [Mass/ Vol]Ordered By: Anirudh Thompson on 12-02-2024 Potassium [Moles/Vol] 4.5 mmol/L 3.3-5.1 [facility] RBC Auto (Bld) [#/Vol]Ordere d By: Anirudh Thompson on 12-02-2024 RBC (Bld) [#/Vol] 4.20 10*6/uL Low 4.6-6.2 [facility] Screening total cholesterol/ high density lipoprotein (HDL) cholesterol ratioOrdered By: Anirudh Thompson on 12-02-2024 Cholesterol.total/Choles terol in HDL [Mass ratio] 2.37 {ratio} [facility] Serum creatinine measurement (mass/volume)Ordered By: Anirudh Thompson on 12-02-2024 Creatinine [Mass/Vol] 0.84 mg/dL 0.70-1.20 [facility] Serum glucose measurement (m ass/volume)Ordered By: Anirudh Thompson on 12-02-2024 Glucose [Mass/Vol] 174 mg/dL High 70-99 [facility] Serum or plasma calcium christiana urement (mass/volume)Ordered By: Anirudh Thompson on 12-02-2024 Calcium [Mass/Vol] 9.6 mg/dL 7.6-11.0 [facility] Serum or plasma cholesterol in HDL measurement (mass/volume)Ordered By: Anirudh Thompson on 12-02-2024 Cholesterol in HDL [Mass/Vol] 75 mg/dL >40 [facility] Comment on above: National Cholesterol Education Program (NCEP) guidelines:<40 mg/dL: Low HDL-cholesterol (major risk factor for CHD)>= 60 mg/dL: High HDL-cholesterol (negative risk factor for CHD)HDL-cholesterol is affected by a number of factors, e.g. smoking, exercise, hormones, sex and age. Serum or plasma cholesterol measurement (mass/volume)Ordered By: Anirudh Thompson on 12-02-2024 Cholesterol [Mass/Vol] 177 mg/dL <201 [facility] Comment on above: Cholesterol level, D esirable <200 mg/dLBorderline high cholesterol 200-239 mg/dLHigh cholesterol >=240 mg/dLRecommendations of the NCEP Adult Treatment Panel for the following risk-cutoff thresholds for the [place] population. Serum or plasma urea nitroge n measurement (mass/volume)Ordered By: Anirudh Thompson on 12-02-2024 Urea nitrogen [Mass/Vol] 21 mg/dL High 4-19 [facility] Sodium levelOrdered By: Anirudh Thompson on 12-02-2024 Sodium [Moles/Vol] 138 mmol/L 133-145 [facility] Strep pneumoniae Antig(UR,CS F)on 12-02-2024 STPAG [...] Test Negative URINE (See interpretation below) Normal [facility] Comment on above: Performed By: #### L 501.5200, L500.2500, L100.0100 #### [facility] [address] [facility] [place], [place], [id number] Streptococcus pneumoniae ant igen assayOrdered By: Anirudh Thompson on 12-02-2024 Streptococcus pneumoniae Antigen (M [facility] Stress Reporton 12-02-2024 Stress Report [facility] [address] [place] [address] MR#: [id number] Acct: [id number] Name: BEATRIS QUINN Rep #: [id number] : 1950 73 From: Eh Castellon MD Primary Care: Michelle Ferraro, SHIP WIRER-C Status: ADM IN Referring Dr: Sex: M [...] 12/02/24 1512 Date Eh Castellon MD CC: SHIP WIRER-C Michelle Ferraro; Dr. Anirudh Thompson DO; Todd Valdovinos DO Date Dictated: 12/02/24 1506 Date Transcribed: 12/02/241505 Parts Interpreter: CO Signed Normal [facility] Triglycerides measurementOrd ered By: Anirudh Thompson on 12-02-2024 Triglyceride [Mass/Vol] 36 mg/dL <199 [facility] Comment on above: The drugs N-Acetylcy steine and Metamizole may falsely depress this assay. Normal range: <150 mg/dLBorderline High: 150-199 mg/dLHigh: 200-499 mg/dLVery High: >500 mg/dL White blood cell (WBC) count Ordered By: Anirudh Thompson on 12-02-2024 WBC (Bld) [#/Vol] 13.7 10*3/uL High 4.4-11.0 [facility] 12 Lead EKGon 12-01-2024 12 Lead EKG [facility] Cardiovascular Services [address] [place] [address] 12 Lead EKG 12/02/24 0535 MR#: [id number] Acct: [id number] Name: BEATRIS QUINN Rep #: [id number] : 1950 73 From: Eh Castellon MD Attending Dr: Dr. Anirudh Thompson DO Status: DIS IN Ordering Dr: Anirudh Thompson DO Date: 12/01/24 Location: [facility] Sex: M C Admitted: 12/01/24 Test Reason [...] UNCONFIRMED Confirmed by EH CASTELLON MD ([id number]), script editor MICHELLE ROMERO ([id number]) on 12/03/2024 8:44:29 AM Referred By: Confirmed By: EH CASTELLON MD 12/03/24 0844 Date Eh Castellon MD CC: VIVEK Ferraro; Dr. Anirudh Thompson DO Signed Normal [facility] Absolute neutrophil countOrd ered By: Todd Valdovinos on 12-01-2024 Neutrophils (Bld) [#/Vol] 12.1 10*3/uL High 2.0-7.7 [facility] Anion gap in Serum or Plasma Ordered By: Todd Valdovinos on 12-01-2024 Anion gap [Moles/Vol] 12 mmol/L - [facility] BUN/creatinine ratioOrdered By: Todd Valdovinos on 12-01-2024 Urea nitrogen/Creatinine [Mass ratio] 18.4 mg/mg - [facility] Basic Metabolic Profile (BMP )on 12-01-2024 BUN/CRE 18.4 RATIO Normal - [facility] Comment on above: Performed By: #### L 501.5200, L500.2500, L100.0100 #### [facility] [address] [place], [address] Calcium [Mass/Vol] 9.4 mg/dL Normal 7.6-11.0 [facility] Comment on above: Performed By: #### L 501.5200, L500.2500, L100.0100 #### [facility] [address] [place], [address] Chloride [Moles/Vol] 100 mmol/L Normal 98-108 [facility] Comment on above: Performed By: #### L 501.5200, L500.2500, L100.0100 #### [facility] [address] [place], [address] CO2 [Moles/Vol] 26.8 mmol/L Normal 21.0-32.0 [facility] Comment on above: Performed By: #### L 501.5200, L500.2500, L100.0100 #### [facility] [address] [place], [address] Creatinine [Mass/Vol] 0.93 mg/dL Normal 0.70-1.20 [facility] Comment on above: Performed By: #### L 501.5200, L500.2500, L100.0100 #### [facility] [address] [place], [address] ECRCL 57.13 ml/min Normal 50-250 [facility] Comment on above: Performed By: #### L 501.5200, L500.2500, L100.0100 #### [facility] [address] [place], [address] GAP 12 Normal 5-15 [facility] Comment on above: Performed By: #### L 501.5200, L500.2500, L100.0100 #### [facility] [address] [place], [address] GFR/1.73 sq M.predicted among non-blacks MDRD (S/P/Bld) [Vol rate/Area] 87 mL/min/{1.73_m2} Normal >60 [facility] Comment on above: Result Comment: mL/m in/1.73m2 CKD-EPI Creatinine Equation (2020) Performed By: #### L 501.5200, L500.2500, L100.0100 #### [facility] [address] [place], [address] Glucose [Mass/Vol] 229 mg/dL High 70-99 [facility] Comment on above: Performed By: #### L 501.5200, L500.2500, L100.0100 #### [facility] [address] [place], [address] Potassium [Moles/Vol] 4.2 mmol/L Normal 3.3-5.1 [facility] Comment on above: Performed By: #### L 501.5200, L500.2500, L100.0100 #### [facility] [address] [place], [address] Sodium [Moles/Vol] 139 mmol/L Normal 133-145 [facility] Comment on above: Performed By: #### L 501.5200, L500.2500, L100.0100 #### [facility] [address] [place], [address] Urea nitrogen [Mass/Vol] 17 mg/dL Normal 4-19 [facility] Comment on above: Performed By: #### L 501.5200, L500.2500, L100.0100 #### [facility] [address] [place], [address] Basophil percentageOrdered B y: Todd Valdovinos on 12-01-2024 Basophils/100 WBC (Bld) 0.2 % 0-1 [facility] CBC W/Diff, Automatedon Absolute Lymph 0.40 X10 3/uL Low 0.83-4.51 [facility] Comment on above: Performed By: #### L 501.5200, L500.2500, L100.0100 #### [facility] [address] [place], [address] Absolute Neut 12.1 X10 3/uL High 2.0-7.7 [facility] Comment on above: Performed By: #### L 501.5200, L500.2500, L100.0100 #### [facility] [address] [place], [address] Basophils/100 WBC (Bld) 0.2 % Normal 0-1 [facility] Comment on above: Performed By: #### L 501.5200, L500.2500, L100.0100 #### [facility] [address] [place], [address] Eosinophils/100 WBC (Bld) 0.0 % Normal 0-5 [facility] Comment on above: Performed By: #### L 501.5200, L500.2500, L100.0100 #### [facility] [address] [place], [address] Erythrocyte distribution width (RBC) [Ratio] 14.1 % Normal 11.6-14.6 [facility] Comment on above: Performed By: #### L 501.5200, L500.2500, L100.0100 #### [facility] [address] [place], [address] Hematocrit (Bld) [Volume fraction] 41.4 % Normal 40-54 [facility] Comment on above: Performed By: #### L 501.5200, L500.2500, L100.0100 #### [facility] [address] [place], [address] Hemoglobin (Bld) [Mass/Vol] 13.7 g/dL Normal 13.0-16.5 [facility] Comment on above: Performed By: #### L 501.5200, L500.2500, L100.0100 #### [facility] [address] [place], [address] IG% 0.600 Normal 0.0-0.9 [facility] Comment on above: Result Comment: IG% - Immature Granulocytes (promyelocytes, myelocytes and metamyelocytes) > 1% indicates that a LEFT SHIFT is Present. Performed By: #### L 501.5200, L500.2500, L100.0100 #### [facility] [address] [place], [address] Lymphocytes/100 WBC (Bld) 3.0 % Low 19-41 [facility] Comment on above: Performed By: #### L 501.5200, L500.2500, L100.0100 #### [facility] [address] [place], [address] MCH (RBC) [Entitic mass] 28.9 pg Normal 27.0-32.0 [facility] Comment on above: Performed By: #### L 501.5200, L500.2500, L100.0100 #### [facility] [address] [place], [address] MCHC (RBC) [Mass/Vol] 33.1 g/dL Normal 32-36 [facility] Comment on above: Performed By: #### L 501.5200, L500.2500, L100.0100 #### [facility] [address] [place], [address] MCV (RBC) [Entitic vol] 87.3 fL Normal 80-94 [facility] Comment on above: Performed By: #### L 501.5200, L500.2500, L100.0100 #### [facility] [address] [place], [address] Monocytes/100 WBC (Bld) 5.1 % Normal 0-10 [facility] Comment on above: Performed By: #### L 501.5200, L500.2500, L100.0100 #### [facility] [address] [place], [address] Neutrophils/100 WBC (Bld) 91.1 % High 47-70 [facility] Comment on above: Performed By: #### L 501.5200, L500.2500, L100.0100 #### [facility] [address] [place], [address] Nucleated RBC (Bld) [#/Vol] 0 10*3/uL Normal 0-5 [facility] Comment on above: Performed By: #### L 501.5200, L500.2500, L100.0100 #### [facility] [address] [place], [address] Platelet mean volume (Bld) [Entitic vol] 9.3 fL Normal 6.2-12.0 [facility] Comment on above: Performed By: #### L 501.5200, L500.2500, L100.0100 #### [facility] [address] [place], [address] Platelets (Bld) [#/Vol] 313 10*3/uL Normal 150-450 [facility] Comment on above: Performed By: #### L 501.5200, L500.2500, L100.0100 #### [facility] [address] [place], [address] RBC (Bld) [#/Vol] 4.74 10*6/uL Normal 4.6-6.2 [facility] Comment on above: Performed By: #### L 501.5200, L500.2500, L100.0100 #### [facility] [address] [place], [address] RDW SD 45.2 fl High 35.1-43.9 [facility] Comment on above: Performed By: #### L 501.5200, L500.2500, L100.0100 #### [facility] [address] [place], [address] WBC (Bld) [#/Vol] 13.3 10*3/uL High 4.4-11.0 [facility] Comment on above: Performed By: #### L 501.5200, L500.2500, L100.0100 #### [facility] [address] [place], [address] Carbon dioxide, total [Moles /volume] in Central venous bloodOrdered By: Todd Valdovinos on 12-01-2024 CO2 [Moles/Vol] 26.8 mmol/L 21.0-32.0 [facility] Chest PA and Lateralon 12-01 Chest PA and Lateral [facility] Imaging Services [address] [place] [address] Chest PA and Lateral MR#: [id number] Acct: [id number] Name: BEATRIS QUINN Rep #: [id number] : 1950 M 73 From: Sahara Brooks i, MD PCP: Dr. Jr Ryan, DO Status: REG ER Study: Chest PA and Lateral Date of Exam: 12/01/24 Exam# [id number] Ordering Dr: Todd Valdovinos DO PROCEDURE: CHEST [...] process. Recommend follow-up until resolution. Reading Location: [facility] CC: Dr. Jr Ryan DO; Todd Valdovinos DO Parts Interpreter: Signed Normal [facility] Chloride assayOrdered By: Aziza Valdovinos on 12-01-2024 Chloride [Moles/Vol] 100 mmol/L 98-108 [facility] Emergency Department Summary on 12-01-2024 Emergency Department Summary [facility] Medical Records Department [address] [place] [address] Emergency Department Summary 12/01/24 MR#: [id number] Acct: [id number] Name: BEATRIS QUINN Rep #: [id number] : 1950 73 From: Todd Valdovinos DO [...] influenza which was roughly 1 year ago [facility] Medical History Aortic stenosis Elevated coronary artery calcium score Urinary retention Heart murmur Anxiety On home oxygen therapy Acute hypoxemic respiratory failure Pneumonia COPD (chronic obstructive pulmonary disease) NINILCHIK (hard of hearing) Hypertension Home Medications ???Medication [...] or compromise (more content not included)... Normal [facility] Eosinophil percentageOrdered By: Todd Valdovinos on 12-01-2024 Eosinophils/100 WBC (Bld) 0.0 % 0-5 [facility] Erythrocyte distribution wid th (RBC) [Ratio]Ordered By: Todd Valdovinos on 12-01-2024 Erythrocyte distribution width (RBC) [Entitic vol] 45.2 fL High 35.1-43.9 [facility] Erythrocyte distribution wid th ratioOrdered By: Todd Valdovinos on 12-01-2024 Erythrocyte distribution width (RBC) [Ratio] 14.1 % 11.6-14.6 [facility] Estimation of creatinine tiffany aranceOrdered By: Todd Valdovinos on 12-01-2024 Estimated Creatinine Clearance Calc 57.13 ml/min 50-250 [facility] GFR/1.73 sq M.predicted ruby g non-blacks MDRD (S/P/Bld) [Vol rate/Area]Ordered By: Todd Valdovinos on 12-01-2024 Estimated GFR (MDRD) Non-Af Amer 87 >60 [facility] Comment on above: mL/min/1.73m2 CKD-EP I Creatinine Equation (2020) Gram stainOrdered By: Anirudh drake on 12-01-2024 Microscopic observation Gram stain Nom (Unsp spec) [facility] H AND P Exam - [facility] 12-01-2024 H&P Exam - [facility] [facility] Medical Records Department [address] [place] [address] H P Exam - Hospitalist 12/01/24 0831 MR#: [id number] Acct: [id number] Name: BEATRIS QUINN Rep #: [id number] : 1950 73 From: Anirudh Thompson DO [...] better with rest. CP does not radiate. [facility] Medical History Aortic stenosis Elevated coronary artery calcium score Urinary retention Heart murmur Anxiety On home oxygen therapy Acute hypoxemic respiratory failure Pneumonia COPD (chronic obstructive pulmonary disease) NINILCHIK (hard of hearing) Hypertension Home Medications ???Medication [...] 4.74, Hgb (more content not included)... Normal [facility] Hematocrit Auto (Bld) [Volum e fraction]Ordered By: Todd Valdovinos on 12-01-2024 Hematocrit (Bld) [Volume fraction] 41.4 % 40-54 [facility] Hemoglobin measurementOrdere d By: Todd Valdovinos on 12-01-2024 Hemoglobin (Bld) [Mass/Vol] 13.7 g/dL 13.0-16.5 [facility] Immature granulocytes/100 WB C Auto (Bld)Ordered By: Todd Valdovinos on 12-01-2024 Immature granulocytes/100 WBC (Bld) 0.600 % 0.0-0.9 [facility] Comment on above: IG% - Immature Granu locytes (promyelocytes, myelocytes and metamyelocytes) > 1% indicates that a LEFT SHIFT is Present. Influenza virus A and B and SARS-CoV-2 (COVID-19) and Respiratory syncytial virus RNAOrdered By: Todd Valdovinos on 12-01-2024 SARS-CoV-2 (COVID-19) RNA JELENA+probe Ql (Unsp spec) [facility] L499.0042on 12-01-2024 Trop T High Sen 16 ng/L Normal <=22 [facility] Comment on above: Performed By: #### L 501.5200, L500.2500, L100.0100 #### [facility] [address] [place], [address] L499.0043on 12-01-2024 Trop T High Sen 20 ng/L Normal <=22 [facility] Comment on above: Performed By: #### L 499.0043 #### [facility] [address] [place], [address] L501.4021on 12-01-2024 Trop T High Sen 17 ng/L Normal <=22 [facility] Comment on above: Performed By: #### L 501.5200, L500.2500, L100.0100 #### [facility] [address] [place], [address] Lymphocytes Auto (Unsp spec) [#/Vol]Ordered By: Todd Valdovinos on 12-01-2024 Lymphocytes (Bld) [#/Vol] 0.40 10*3/uL Low 0.83-4.51 [facility] Lymphocytes/100 WBC Auto (Un sp spec)Ordered By: Todd Valdovinos on 12-01-2024 Lymphocytes/100 WBC (Bld) 3.0 % Low 19-41 [facility] M100.678on 12-01-2024 M100.678 SARS-CoV-2 (COVID 19 ) Negative INFLUENZA A Negative INFLUENZA B Negative RSV PCR Negative Normal [facility] Comment on above: Performed By: #### L 501.5200, L500.2500, L100.0100 #### [facility] [address] [place], [address] MCV (mean corpuscular volume ) determinationOrdered By: Todd Valdovinos on 12-01-2024 MCV (RBC) [Entitic vol] 87.3 fL 80-94 [facility] Magnesiumon 12-01-2024 Magnesium [Mass/Vol] 2.0 mg/dL Normal 1.5-2.2 [facility] Comment on above: Performed By: #### L 501.5200, L500.2500, L100.0100 #### [facility] [address] [place], [address] Magnesium (Unsp spec) [Mass/ Vol]Ordered By: Todd Valdovinos on 12-01-2024 Magnesium [Mass/Vol] 2.0 mg/dL 1.5-2.2 [facility] Mean corpuscular hemoglobin (MCH) determinationOrdered By: Todd Valdovinos on 12-01-2024 MCH (RBC) [Entitic mass] 28.9 pg 27.0-32.0 [facility] Mean corpuscular hemoglobin concentration (MCHC) determinationOrdered By: Todd Valdovinos on 12-01-2024 MCHC (RBC) [Mass/Vol] 33.1 g/dL 32-36 [facility] Mean platelet volume determi nationOrdered By: Todd Valdovinos on 12-01-2024 Platelet mean volume (Bld) [Entitic vol] 9.3 fL 6.2-12.0 [facility] Monocyte percentageOrdered B y: Todd Valdovinos on 12-01-2024 Monocytes/100 WBC (Bld) 5.1 % 0-10 [facility] Neutrophil percentageOrdered By: Todd Valdovinos on 12-01-2024 Neutrophils/100 WBC (Bld) 91.1 % High 47-70 [facility] Nucleated red blood cell per centageOrdered By: Todd Valdovinos on 12-01-2024 Nucleated RBC/100 WBC (Bld) [Ratio] 0 % 0-5 [facility] Platelet countOrdered By: Aziza Valdovinos on 12-01-2024 Platelets (Bld) [#/Vol] 313 10*3/uL 150-450 [facility] Potassium (Unsp spec) [Mass/ Vol]Ordered By: Todd Valdovinos on 12-01-2024 Potassium [Moles/Vol] 4.2 mmol/L 3.3-5.1 [facility] RBC Auto (Bld) [#/Vol]Ordere d By: Todd Valdovinos on 12-01-2024 RBC (Bld) [#/Vol] 4.74 10*6/uL 4.6-6.2 [facility] Serum creatinine measurement (mass/volume)Ordered By: Todd Valdovinos on 12-01-2024 Creatinine [Mass/Vol] 0.93 mg/dL 0.70-1.20 [facility] Serum glucose measurement (m ass/volume)Ordered By: Todd Valdovinos on 12-01-2024 Glucose [Mass/Vol] 229 mg/dL High 70-99 [facility] Serum or plasma calcium christiana urement (mass/volume)Ordered By: Todd Valdovinos on 12-01-2024 Calcium [Mass/Vol] 9.4 mg/dL 7.6-11.0 [facility] Serum or plasma urea nitroge n measurement (mass/volume)Ordered By: Todd Valdovinos on 12-01-2024 Urea nitrogen [Mass/Vol] 17 mg/dL 4-19 [facility] Sodium levelOrdered By: Joseph Valdovinos on 12-01-2024 Sodium [Moles/Vol] 139 mmol/L 133-145 [facility] Troponin T.cardiac High sens itivity method [Mass/Vol]Ordered By: Anirudh Thompson on 12-01-2024 Troponin T High Sensitivity 4 Hour 20 ng/L <22 [facility] Troponin T High Sensitivity 2 Hour 16 ng/L <22 [facility] Troponin T High Sensitivity 17 ng/L <22 [facility] White blood cell (WBC) count Ordered By: Todd Valdovinos on 12-01-2024 WBC (Bld) [#/Vol] 13.3 10*3/uL High 4.4-11.0 [facility] CNPNon 10-26-2024 CNPN Telephone (PULMMN) BEATRIS QUINN ([id number]) 1950 M Date Time Provider Department 10/26/24 [...] disease. Patient can be reached by calling [phone]. Tigre Restrepo MD 10/27/2024 11:03 AM Signed [...] Reason for Visit: LMTCB [1226] Patient Request [[id number]] Cmt: Message regarding ID Prescriptions as of [...] Encounter Status:Closed by CANDELARIA SINGH on 10/26/24 [facility] Bertrand 10-19-2024 MARTHAN Telephone ([facility]) BEATRIS QUINN ([id number]) 1950 M Date Time Provider Department 10/19/24 TIGRE RESTREPO [facility] During your visit today, we recorded the [...] Maybe send a letter? Glendy Dial, EM [facility] Clinical (2:29 PM) KK Please try to [...] Encounter Status:Closed by TIGRE RESTREPO on 10/19/24 [facility] CNOVon 10-16-2024 [facility] Office Visit ([facility] ) BEATRIS QUINN ([id number]) 1950 M Date Time Provider Department 10/16/24 3:30 PM TIGRE RESTREPO [facility] During your visit today, we recorded the following information about you: Pulse Blood pressure Weight Height 79/minute 153/76 59.4 kg 1.626 m Tigre Restrepo MD 10/16/2024 10:44 AM [facility] DEPART[facility]ICINE [...] report showed stable lung opacities Works in [employer] From [employer] [facility] [employer] Social History Tobacco Use Smoking status: [...] technique due to different penetrations the films. Parts Interpreter: [facility] Transcribe Date/Time: Mar 24 2024 1:44P Dictated [...] be communicated with the ordering provider via [employer] staff message or phone message by [employer] within 2 business days of report finalization. --END OF FINDING-- Parts Interpreter: (more content not included)... Normal [facility] CT CHEST WO IVCONon 10-16-19 CT CHEST WO IVCON * * *Final Report* * * DATE OF EXAM: Oct 16 2024 7:11AM [facility] 0541 - CT CHEST WO IVCON / [...] distribution which are most likely infectious/inflammator y. Parts Interpreter: [employer] Transcribe Date/Time: Oct 20 2024 1:36P Dictated by : MICAELA FONTAINE MD This examination was interpreted and the report reviewed and electronically signed by: MICAELA FONTAINE MD on Oct 20 2024 2:05PM EST [id number] [facility] 10-09-2024 CNPN Telephone (PULMMN) BEATRIS QUINN ([id number]) 1950 M Date Time Provider Department 10/09/24 TIGRE RESTREPO [facility] During your visit today, we recorded the following information about you: Candelaria Singh 10/09/2024 10:22 AM Signed Patient called COPD coordinator asking to message Dr. Restrepo requesting to add on testing at his next office visit on 10/16 in [place]. Patient states he will arrive one hour early for X-ray, CT scan or other testing. Patient has been calling the appointment line but has been on hold for too long. Please reach out to patient and confirm testing will be scheduled and advise of arrival time. Patient phone: [phone]. Tigre Restrepo MD 10/09/2024 10:39 AM Signed Please schedule him for a ct chest prior to his next appointment - if needed you can move the appointment until the ct chest is done. He does not need a cxr just a ct chest Veronica Sherman 10/09/2024 11:58 AM Signed First attempt at contacting patient, uzair to schedule eVronica Sherman 10/12/2024 8:34 AM Signed Patient is scheduled Allergies As of Date: 10/09/2024 Noted Allergy Reaction LISINOPRIL 07/01/2007 3 - Cough MAXZIDE (TRIAMTERENE-HYDROCHLO ROT*11/11/2006 5 - Intolerance Comments: leg cramp, sex desire decrease NAPROXEN 09/11/2016 8 - GI Upset Date Reviewed: 05/25/2024 Reviewed by: Aviva Solano RN - Fully Assessed Reason for Visit: Patient Request [[id number]] Cmt: Testing Prescriptions as of 10/12/2024 - [...] Encounter Status:Closed by TIGRE RESTREPO on 10/09/24 [facility] Telephone ([facility]) BEATRIS QUINN ([id number]) 1950 Date Time Provider Department 07/01/24 TIGRE RESTREPO [facility] During your visit today, we recorded the following information about you: Tigre Restrepo MD 07/01/2024 3:39 PM Signed Please check if he has seen the infectious disease specialist. Nothing in [facility]. Thanks Kacey Che LPN 07/01/2024 3:59 PM [...] lung (HCC) [J15.1] Order(s):CT CHEST WO WILLIAMON [[id number]] Order #: [id number] FUTURE Prescriptions as of 07/08/2024 - fluticasone-umeclidin- [...] Status:Closed by TIGRE RESTREPO on 07/01/24 Normal [facility] ECHOon 06-05-2024 CONCLUSIONS: - Exam indication: Cardiac [...] * * * Final * * * [facility] Echocardiography Report: Transthoracic Echo [facility] Date of service: 06/05/2024 8:31:52 AM Ordering physician: CLAIRE TURNER Indication: Cardiac Murmur Technologist: Elina Sutton [facility] Interpreting physician: Sammy Robledo DO PATIENT: Name: [...] effusion. There is an epicardial fat pad. [facility] Echocardiography Echocardiography Report: Transthoracic Echo [facility] Date of service: 06/05/2024 8:31:52 AM Ordering physician: CLAIRE TURNER Indication: Cardiac Murmur Technologist: Elina Sutton [facility] Interpreting physician: Sammy Robledo DO PATIENT: Name: [...] * * Final * * * CC [employer] Medical Image : [id number] [facility] Telephone (MEPRAD) BEATRIS QUINN ([id number]) 1950 Date Time Provider Department 05/28/24 TIGRE [...] CONSULT TO INFECTIOUS DISEASES [9016] Order #: [id number] FUTURE Prescriptions as of 06/04/2024 - [...] Encounter Status:Closed [facility] (MEPRAD[facility] BEATRIS QUINN ([id number]) 1950 M Date Time Provider Department 05/27/24 [...] sympto*06/24/2017 Encounter Status:Closed by TIGRE RESTREPO on 05/27/[address] [facility] [address] Chest WO contraston 05-15 IMPRESSION: 1. [...] with aspiration. 3. No enlarging lymph nodes. Parts Interpreter: [employer] Transcribe Date/Time: May 15 2024 4:44P Dictated by : ALIREZA FREDERICK MD This examination was interpreted and the report reviewed and electronically signed by: ALIREZA FREDERICK MD on May 15 2024 4:59PM [facility] DIVISION OF RADIOLOGY * [...] Limitations: Minimal cardiac pulsation related motion noted. Marketing Project Coordinator (topogram) images: No additional findings. Lines, tubes, [...] and splenic artery. DIVISION OF RADIOLOGY Provider, [facility] Johnie Bronson [facility] - 05/15/2024 * * *Final Report* [...] Limitations: Minimal cardiac pulsation related motion noted. Marketing Project Coordinator (topogram) images: No additional findings. Lines, tubes, [...] No enlarging lym (more content not included)... [facility] Radiology Study observation (narrative) [facility] CT Chest WO contrastOrdered By: Ccf Provider on 05-15-2024 [facility] CNCOon 04-24-2024 CNCO Letter Text Normal [facility] CNPNon 04-21-2024 CNPN Telephone (MEPRAD) QUINNBEATRIS Del Valle ([id number]) 1950 M Date Time Provider Department 04/21/24 [...] Encounter Status:Closed by TIGRE RESTREPO on 04/21/24 [facility] MARTHA Telephone (MEPRAD) BEATRIS QUINN ([id number]) 1950 M Date Time Provider Department 04/21/24 TIGRE RESTREPO During your visit today, we recorded the following information about you: Tigre Restrepo MD 04/21/2024 4:18 PM Addendum He has an appointment with cardiology next month at [place] Please can you please try to get [...] Patient has the soonest available appt in [place] right now, he is placed on the waitlist for cancellations. Called and left to give him the central scheduling cardiology number to see which locations have sooner appointments, since we only have access to schedule for [place] Laila Galdamez, Rosaura Melendrez 04/22/2024 4:12 PM Signed PT calling, he was recently seen at [facility] for a heart stent procedure. PT stated he will reach out to that office for clearance and have the office fax over cardiac clearance forms. PT was provided with the fax number to the [facility] office. Cecelia Solo 04/24/2024 9:39 AM Signed [facility] called asking if the cardiac clearance paperwork could be faxed to them at [phone] so the doctor can sign off on [...] 2:47 PM Signed Faxed Clearance letter to [facility] [phone] and received confirmation. Letter was placed in the filing drawer. Will await for Office note and letter back stating if Pt is cleared. Kacey Che LPN 04/29/2024 2:20 PM Addendum Received fax back from [facility]. Medical records and letter was placed in [...] Status:Closed by TIGRE RESTREPO on 04/21/24 Normal [facility] GLUCOSE, BLOOD (POC)on 04-21 Glucose [Mass/Vol] 95 mg/dL 74 - 99 mg/dL [facility] Comment on above: Location:[facility], [address] [place], [place], [address] The Accu-Chek Inform II glucose meter has [...] blood gas instrument) in the above situations. [facility] NM PET/CT SKULL-THIGH INITon 04-21-2024 NM PET/CT [...] * Uptake Time: 50 minutes * Radiopharmaceutical: M88-Orejecqxyayuilhlne (FDG) COMPARISON: No previous FDG PET/CT available [...] but commonly physiologic. Ensure colonoscopy is up-to-date. Parts Interpreter: [facility] Transcribe Date/Time: Apr 21 2024 8:08A Dictated by : NANDA SAMSON DO This examination was interpreted and the report reviewed and electronically s (more content not included)... Normal [facility] PET+CT Guidance for localiza tion of [...] but commonly physiologic. Ensure colonoscopy is up-to-date. Parts Interpreter: [employer] Transcribe Date/Time: Apr 21 2024 8:08A Dictated by : NANDA SAMSON DO This examination was interpreted and the report reviewed and electronically signed by: NANDA SAMSON DO on Apr 21 2024 8:34AM EST [facility] * * *Final Report* * * [...] * Uptake Time: 50 minutes * Radiopharmaceutical: E65-Hxvnuraikvtdmhxxqb (FDG) COMPARISON: No previous FDG PET/CT available [...] arthroplasty. Soft Tissues: No radiotracer avid lesion. [facility] Provider, [facility] - 04/21/2024 * * *Final Report* * [...] * Uptake Time: 50 minutes * Radiopharmaceutical: C93-Bsytvcoswuexwbhttr (FDG) COMPARISON: No previous FDG PET/CT available [...] is up-to-date. Transcript (more content not included)... [facility] Radiology Study observation (narrative) [facility] PET+CT Guidance for localiza tion of tumor of Skull base to mid-thigh-- W 18F-FDG IVOrdered By: Ccf Provider on 04-21-2024 [facility] CTA Pulmonary arteries for p ulmonary [...] biopsy. 3. No mediastinal or hilar lymphadenopathy. Parts Interpreter: [employer] Transcribe Date/Time: Mar 27 2024 10:30A Dictated by : GRACIELA ZELAYA MD This examination was interpreted and the report reviewed and electronically signed by: GRACIELA ZELAYA MD on Mar 27 2024 10:46AM [facility] DIVISION OF RADIOLOGY * * *Final Report* * * DATE OF EXAM: Mar 27 2024 10:16AM [facility] 0540 - CT CHEST W IVCON PE [...] No additional findings DIVISION OF RADIOLOGY Provider, [facility] - 03/27/2024 * * *Final Report* * * DATE OF EXAM: Mar 27 2024 10:16AM [facility] 0540 - CT CHEST W IVCON PE [...] biopsy. 3. No mediastinal or hilar lymphadenopathy. Parts Interpreter: [employer] Transcribe Date/Time: Mar 27 2024 10:30A Dictated by : GRACIELA ZELAYA MD This examination was interpreted and the report reviewed and electronically signed by: GRACIELA ZELAYA MD on Mar 27 2024 10:46AM EST [facility] Radiology Study observation (narrative) [facility] CTA Pulmonary arteries for p ulmonary embolus W contrast IVOrdered By: Ccf Provider on 03-27-2024 [facility] No Panel Informationon 03-[address] [address] Test Date: 2024-03-24 Pat Name: BEATRIS QUINN Department: Room: Gender: Male Ict Programmer: : 1950 Requested By: Order Number: [id number] Reading MD: Annette Marrero MD Interpretive Statements [...] 14:35:26 EDT by Annette Marrero MD ID: [id number] Name: BEATRIS QUINN Race: White Ht: 64.92 [...] 0.15 66 FIVC (L) 2.96 2.91 -1 GFU56-05 (L/sec) 0.25 0.84 2.02 3.71 12 0.30 [...] 12.2 sec. / LF PULMONARY FUNCTION LAB [facility] SPIROMETRY WITH DILATOR IF O BSTRUCTEDon 03-24-2024 DLCO (ml/min/mmHg) 11.55 ml/min/mmHg [facility] DLCO/VA (ml/min/mmHg/L) 2.66 ml/m in/mmHg /L [facility] DLCOcor (ml/min/mmHg) 12.13 ml/min/mmHg Cl [facility] MPR45-48% POST (L/S) 0.30 L/S [facility] TTM10-84% PRE (L/S) 0.25 L/S [facility] FEV1 PRE (L) 0.68 L [facility] FEV1/FVC POST (%) 22 % [facility] FEV1/FVC PRE (%) 22 % [facility] FEV1_POST (L) 0.73 L [facility] FVC POST (L) 3.31 L [facility] FVC PRE (L) 3.05 L [facility] PEF POST (L/S) 2.43 L/S [facility] PEF PRE (L/S) 2.42 L/S [facility] VA (L) 4.34 L [facility] XR Chest PA and Lateralon IMPRESSION: 1. Nodular opacities in each lung have been thought to most likely be due to infectious etiology.. Neoplasm is not completely excluded. 2. Prominence of lung markings throughout each lung could represent some edema or infiltrate. Although this may be just differences in technique due to different penetrations the films. Parts Interpreter: [employer] Transcribe Date/Time: Mar 24 2024 1:44P Dictated by : JANINE HILLIARD DO This examination was interpreted and the report reviewed and electronically signed by: JANINE HILLIARD DO on Mar 24 2024 2:21PM [facility] * * *Final Report* * * DATE OF EXAM: Mar 24 2024 10:54AM [facility] 5291 - XR CHEST 2V FRONTAL/LAT / [...] cardiomediastinal silhouette. Bones and soft tissues: Unremarkable. [facility] Provider, Za Liu - 03/24/2024 * [...] technique due to different penetrations the films. Parts Interpreter: [employer] Transcribe Date/Time: Mar 24 2024 1:44P Dictated by : JANINE HILLIARD DO This examination was interpreted and the report reviewed and electronically signed by: JANINE HILLIARD DO on Mar 24 2024 2:21PM EST [facility] Radiology Study observation (narrative) [facility] XR Chest PA and LateralOrder ed By: Ccf Provider on 03-24-2024 [facility] Absolute lymphocyte countOrd ered By: Anirudh Thompson on 12-18-2023 Lymphocytes Auto (Unsp spec) [#/Vol] 0.30 10*3/uL 0.83-4.51 [facility] Automated lymphocyte count a s percentage of total leukocytesOrdered By: Anirudh Thompson on 12-18-2023 Lymphocytes/100 WBC Auto (Unsp spec) 1.9 % 19-41 [facility] Basophil percentageOrdered B y: Anirudh Thompson on 12-18-2023 Basophils/100 WBC (Bld) 0.1 % 0-1 [facility] Chloride [Moles/Vol] 96 mmol/L 98-107 [facility] Eosinophils/100 WBC (Bld) 0.0 % 0-5 [facility] Glucose [Mass/Vol] 193 mg/dL 74-106 [facility] Comment on above: Fasting Glucose resu lt greater than or equal to 126 mg/dL suggests DIABETES MELLITUS per A.D.A. criteria. Hemoglobin (Bld) [Mass/Vol] 14.4 g/dL 13.0-16.5 [facility] Monocytes/100 WBC (Bld) 2.0 % 0-10 [facility] Neutrophils (Bld) [#/Vol] 15.4 10*3/uL 2.0-7.7 [facility] Neutrophils/100 WBC (Bld) 95.4 % 47-70 [facility] Potassium [Moles/Vol] 4.2 mmol/L 3.5-5.1 [facility] Sodium [Moles/Vol] 136 mmol/L 136-145 [facility] WBC (Bld) [#/Vol] 16.2 10*3/uL 4.4-11.0 [facility] Determination of erythrocyte mean corpuscular volume (MCV)Ordered By: Anirudh Thompson on 12-18-2023 MCV (RBC) [Entitic vol] 85.9 fL 80-94 [facility] Erythrocyte distribution wid th ratioOrdered By: Anirudh Thompson on 12-18-2023 Erythrocyte distribution width (RBC) [Ratio] 14.2 % 11.6-14.6 [facility] Erythrocyte distribution wid th standard deviationOrdered By: Anirudh Thompson on 12-18-2023 Erythrocyte distribution width (RBC) [Entitic vol] 44.6 fL 35.1-43.9 [facility] Hematocrit Auto (Bld) [Volum e fraction]Ordered By: Anirudh Thompson on 12-18-2023 Hematocrit (Bld) [Volume fraction] 45.1 % 40-54 [facility] Immature granulocytes/100 WB C Auto (Bld)Ordered By: Anirudh Thompson on 12-18-2023 Immature granulocytes/100 WBC (Bld) 0.600 % 0.0-0.9 [facility] Comment on above: IG% - Immature Granu locytes (promyelocytes, myelocytes and metamyelocytes) > 1% indicates that a LEFT SHIFT is Present. Laboratory - Chemistry and C hemistry - challengeOrdered By: Anirudh Thompson on 12-18-2023 CO2 [Moles/Vol] 35.0 mmol/L 21.0-32.0 [facility] Urea nitrogen/Creatinine [Mass ratio] 27.4 mg/mg 10-20 [facility] Laboratory - Hematology and Cell countsOrdered By: Anirudh Thompson on 12-18-2023 MCH (RBC) [Entitic mass] 27.4 pg 27.0-32.0 [facility] MCHC (RBC) [Mass/Vol] 31.9 g/dL 32-36 [facility] Nucleated RBC/100 WBC (Bld) [Ratio] 0 % 0-5 [facility] Platelet mean volume (Bld) [Entitic vol] 9.7 fL 6.2-12.0 [facility] Platelets (Bld) [#/Vol] 398 10*3/uL 150-450 [facility] No Panel InformationOrdered By: Anirudh Thompson on 12-18-2023 Estimated Creatinine Clearance Calc 63.19 ml/min [facility] Estimated GFR (MDRD) Amer 115 mL/min >60 [facility] Comment on above: GFR Calc Estimated GFR (MDRD) Non-Af Amer 95 mL/min >60 [facility] Comment on above: Non- GFR Calc RBC Auto (Bld) [#/Vol]Ordere d By: Anirudh Thompson on 12-18-2023 RBC (Bld) [#/Vol] 5.25 10*6/uL 4.6-6.2 [facility] Serum or plasma calcium christiana urement (mass/volume)Ordered By: Anirudh Thompson on 12-18-2023 Calcium [Mass/Vol] 9.2 mg/dL 8.5-10.1 [facility] Serum or plasma creatinine m easurement (mass/volume)Ordered By: Anirudh Thompson on 12-18-2023 Creatinine [Mass/Vol] 0.84 mg/dL 0.70-1.30 [facility] Comment on above: The validity of the calculated GFR & GFRAA in patients over 70 years has not been determined. Clinical correlation is essential. Serum or plasma urea nitroge n measurement (mass/volume)Ordered By: Anirudh Thompson on 12-18-2023 Urea nitrogen [Mass/Vol] 23 mg/dL 7-18 [facility] Thin prep Papanicolaou smear with manual screeningOrdered By: Anirudh Donna on 12-18-2023 Thin prep Papanicolaou smear with manual screening 5 5-15 [facility] Absolute lymphocyte countOrd ered By: Migel Iqbal on 12-17-2023 Lymphocytes Auto (Unsp spec) [#/Vol] 0.69 10*3/uL 0.83-4.51 [facility] Activated partial thrombopla stin time (aPTT) in platelet poor plasma by coagulation aOrdered By: Migel Iqbal on 12-17-2023 aPTT Coag (PPP) [Time] 28.0 s 24.1-36.2 [facility] Automated lymphocyte count a s percentage of total leukocytesOrdered By: Migel Iqbal on 12-17-2023 Lymphocytes/100 WBC Auto (Unsp spec) 3.5 % 19-41 [facility] Basophil percentageOrdered B y: Migel Iqbal on 12-17-2023 Basophil percentage 0 SEEN /hpf 0-5 [facility] Basophils/100 WBC (Bld) 0.2 % 0-1 [facility] Bilirubin [Mass/Vol] 0.80 mg/dL 0.20-1.00 [facility] Comment on above: For patients on eltr ombopag therapy, use of Dimension [place] TBIL is not recommended. Chloride [Moles/Vol] 97 mmol/L 98-107 [facility] Eosinophils/100 WBC (Bld) 0.1 % 0-5 [facility] Glucose [Mass/Vol] 104 mg/dL 74-106 [facility] Comment on above: Fasting Glucose resu lt from 100 to 125 mg/dL suggests IMPAIRED HOMEOSTASIS per A.D.A. criteria. Hemoglobin (Bld) [Mass/Vol] 15.3 g/dL 13.0-16.5 [facility] Lactate [Moles/Vol] 0.9 mmol/L 0.4-2.0 [facility] Monocytes/100 WBC (Bld) 9.6 % 0-10 [facility] Neutrophils (Bld) [#/Vol] 17.2 10*3/uL 2.0-7.7 [facility] Neutrophils/100 WBC (Bld) 85.9 % 47-70 [facility] Potassium [Moles/Vol] 4.1 mmol/L 3.5-5.1 [facility] Protein [Mass/Vol] 7.1 g/dL 6.4-8.2 [facility] Sodium [Moles/Vol] 138 mmol/L 136-145 [facility] WBC (Bld) [#/Vol] 20.0 10*3/uL 4.4-11.0 [facility] Bilirubin Test strip Ql (U)O rdered By: Migel Iqbal on 12-17-2023 Bilirubin Ql (U) Negative Negative [facility] Blood manual differential co mment interpretation (narrative result)Ordered By: Migel Iqbal on 12-17-2023 Manual differential comment Geraldo (Bld) [Interp] COMMENT [facility] Comment on above: MONOCYTOSIS. Culture, urineOrdered By: Micky Iqbal on 12-17-2023 Bacteria identified Cx Nom (U) Culture exhibits no growth. [facility] Determination of erythrocyte mean corpuscular volume (MCV)Ordered By: Migel Iqbal on 12-17-2023 MCV (RBC) [Entitic vol] 86.5 fL 80-94 [facility] Erythrocyte distribution wid th ratioOrdered By: Migel Iqbal on 12-17-2023 Erythrocyte distribution width (RBC) [Ratio] 14.2 % 11.6-14.6 [facility] Erythrocyte distribution wid th standard deviationOrdered By: Migel Iqbal on 12-17-2023 Erythrocyte distribution width (RBC) [Entitic vol] 45.5 fL 35.1-43.9 [facility] Gram stain for investigation of transfusion reactionOrdered By: Migel Iqbal on 12-17-2023 Microscopic observation Gram stain Nom (Unsp spec) [facility] Hematocrit Auto (Bld) [Volum e fraction]Ordered By: Migel Iqbal on 12-17-2023 Hematocrit (Bld) [Volume fraction] 47.9 % 40-54 [facility] Immature granulocytes/100 WB C Auto (Bld)Ordered By: Migel Iqbal on 12-17-2023 Immature granulocytes/100 WBC (Bld) 0.700 % 0.0-0.9 [facility] Comment on above: IG% - Immature Granu locytes (promyelocytes, myelocytes and metamyelocytes) > 1% indicates that a LEFT SHIFT is Present. Ketones Test strip Ql (U)Ord ered By: Migel Iqbal on 12-17-2023 Ketones Ql (U) 5 mg/dl Negative [facility] Laboratory - Chemistry and C hemistry - challengeOrdered By: Migel Iqbal on 12-17-2023 Albumin/Globulin [Mass ratio] 0.7 {ratio} 0.9-2.4 [facility] ALP [Catalytic activity/Vol] 86 U/L 45-117 [facility] ALT [Catalytic activity/Vol] 18 U/L 16-61 [facility] CO2 [Moles/Vol] 37.0 mmol/L 21.0-32.0 [facility] Globulin (S) [Mass/Vol] 4.2 g/dL 2.2-4.2 [facility] Urea nitrogen/Creatinine [Mass ratio] 24.5 mg/mg 10-20 [facility] Laboratory - CoagulationOrde red By: Migel Iqbal on 12-17-2023 INR Coag (Bld) [Relative time] 1.0 {INR} [facility] PT Coag (PPP) [Time] 13.0 s 11.7-14.9 [facility] Laboratory - Hematology and Cell countsOrdered By: Migel Iqbal on 12-17-2023 MCH (RBC) [Entitic mass] 27.6 pg 27.0-32.0 [facility] MCHC (RBC) [Mass/Vol] 31.9 g/dL 32-36 [facility] Nucleated RBC/100 WBC (Bld) [Ratio] 0 % 0-5 [facility] Platelet mean volume (Bld) [Entitic vol] 9.8 fL 6.2-12.0 [facility] Platelets (Bld) [#/Vol] 385 10*3/uL 150-450 [facility] Mucus LM Ql (Urine sed)Order ed By: Migel Iqbal on 12-17-2023 Mucus Ql (Urine sed) 0 SEEN /hpf [facility] Nitrite Test strip Ql (U)Ord ered By: Migel Iqbal on 12-17-2023 Nitrite Ql (U) Negative Negative [facility] No Panel InformationOrdered By: Migel Iqbal on 12-17-2023 Urine RBC 0-5 SEEN /hpf 0-5 [facility] Estimated Creatinine Clearance Calc 68.47 ml/min [facility] Estimated GFR (MDRD) Amer 144 mL/min >60 [facility] Comment on above: GFR Calc Estimated GFR (MDRD) Non-Af Amer 119 mL/min >60 [facility] Comment on above: Non- GFR Calc Protein Test strip Ql (U)Ord ered By: Migel Iqbal on 12-17-2023 Protein Ql (U) 30 mg/dl Negative [facility] RBC Auto (Bld) [#/Vol]Ordere d By: Migel Iqbal on 12-17-2023 RBC (Bld) [#/Vol] 5.54 10*6/uL 4.6-6.2 [facility] Review by pathologistOrdered By: Migel Iqbal on 12-17-2023 Pathologist review Geraldo (Unsp spec) [Interp] Xin españa [facility] Pathologist review Geraldo (Unsp spec) [Interp] Reviewed [facility] Comment on above: Previous reported re sult: Xin españa Edited by: SARAH on 12/19/23:0918Neutrophilic leukocytosis.Clinical correlation necessary.Desmond Camacho M.D. 12/19/23 AMENDED REPORT 12/19/23 0918 PATH REV previously reported as: Xin españa Serum or plasma calcium christiana urement (mass/volume)Ordered By: Migel Iqbal on 12-17-2023 Calcium [Mass/Vol] 9.1 mg/dL 8.5-10.1 [facility] Serum or plasma creatinine m easurement (mass/volume)Ordered By: Migel Iqbal on 12-17-2023 Creatinine [Mass/Vol] 0.69 mg/dL 0.70-1.30 [facility] Comment on above: The validity of the calculated GFR & GFRAA in patients over 70 years has not been determined. Clinical correlation is essential. Serum or plasma urea nitroge n measurement (mass/volume)Ordered By: Migel Iqbal on 12-17-2023 Urea nitrogen [Mass/Vol] 17 mg/dL 7-18 [facility] Squamous epithelial cells de tection in urine sediment by light microscopyOrdered By: Migel Iqbal on 12-17-2023 Epithelial cells.squamous LM Ql (Urine sed) 0 SEEN /hpf 0-5 [facility] Thin prep Papanicolaou smear with manual screeningOrdered By: Migel Iqbal on 12-17-2023 Thin prep Papanicolaou smear with manual screening 2.9 g/dL 3.2-5.0 [facility] Thin prep Papanicolaou smear with manual screening 18 U/L 15-37 [facility] Thin prep Papanicolaou smear with manual screening 4 5-15 [facility] Urine blood detectionOrdered By: Migel Iqbal on 12-17-2023 RBC Ql (U) 25 /ul Negative [facility] Urine clarityOrdered By: Hernandez Iqbla on 12-17-2023 Clarity (U) Clear Clear [facility] Urine color determinationOrd ered By: Migel Iqbal on 12-17-2023 Color (U) Yellow Yellow [facility] Urine glucose detectionOrder ed By: Migel Iqbal on 12-17-2023 Glucose Ql (U) Normal mg/dl Normal [facility] Urine leukocyte esterase det ection by dipstickOrdered By: Migel Iqbal on 12-17-2023 Leukocyte esterase Test strip Ql (U) Negative Negative [facility] Urine pHOrdered By: Migel eagle on 12-17-2023 pH (U) 6.5 [pH] 5.0 - 8.0 [facility] Urine sediment bacteria coun t by microscopy (number/high power field)Ordered By: Migel Iqbal on 12-17-2023 Bacteria LM.HPF (Urine sed) [#/Area] 0 /[HPF] None Seen [facility] Urine specific gravity measu rementOrdered By: Migel Iqbal on 12-17-2023 Specific gravity (U) [Rel density] 1.010 1.002-1.030 [facility] Urine urobilinogen measureme ntOrdered By: Migel Iqbal on 12-17-2023 Urobilinogen Ql (U) Normal mg/dl Normal [facility] Basic metabolic 2000 panelon 12-15-2023 Anion gap [Moles/Vol] 5 mmol/L Normal 5-16 [facility] Comment on above: Order Comment: Speci men Type: BLOOD SPECIMEN Ordering Facility: [facility] Address: [address] [place] [address] Performed By: #### 2 4321-2, 29785-2 #### [facility] CLIA [id number] [address] [place] [address] [place] Calcium [Mass/Vol] 9.7 mg/dL Normal 8.5-10.5 [facility] Comment on above: Order Comment: Speci men Type: BLOOD SPECIMEN Ordering Facility: [facility] Address: [address] [place] [address] Performed By: #### 2 4321-2, 37224-2 #### [facility] CLIA [id number] [address] [place] [address] [place] Chloride [Moles/Vol] 102 mmol/L Normal 98-[address] [facility] Comment on above: Order Comment: Speci men Type: BLOOD SPECIMEN Ordering Facility: [facility] Address: [address] [place] [address] Performed By: #### 2 4321-2, 01727-6 #### [facility] CLIA [id number] [address] [place], [place] [address] [place] CO2 [Moles/Vol] 31 mmol/L Normal 21-32 [facility] Comment on above: Order Comment: Speci men Type: BLOOD SPECIMEN Ordering Facility: [facility] Address: [address] [place] [address] Performed By: #### 2 4321-2, 75544-9 #### [facility] CLIA [id number] [address] [place], [place] [address] [place] Creatinine [Mass/Vol] 0.72 mg/dL Normal 0.50-1.40 [facility] Comment on above: Order Comment: Speci men Type: BLOOD SPECIMEN Ordering Facility: [facility] Address: [address] [place] [address] Result Comment: Ruthie ents receiving either N-Acetylcysteine (NAC) or Metamizole prior to venipuncture, may have falsely depressed results. Performed By: #### 2 4321-2, 99538-2 #### [facility] CLIA [id number] [address] [place] [address] [place] Creatinine and Glomerular filtration rate.predicted panel (S/P/Bld) 97 mL/min/1.73m??? Normal >=60 [facility] Comment on above: Order Comment: Haylee russo Type: BLOOD SPECIMEN Ordering Facility: [facility] Address: [address] [place] [address] Result Comment: Lata mated Glomerular Filtration Rate [...] actual GFR. Performed By: #### 2 4321-2, 96882-5 #### [facility] CLIA [id number] [address] [place], [place] [address] [place] Glucose [Mass/Vol] 197 mg/dL High 70-100 [facility] Comment on above: Order Comment: Haylee russo Type: BLOOD SPECIMEN Ordering Facility: [facility] Address: [address] [place] [address] Result Comment: The [place] [employer] (ADA) provides guidance for cutoff [...] Standards of Medical Care in Diabetes 2016, [place] [employer]. Diabetes Care. 2016.39(Suppl 1). Results may be falsely elevated after the administration of Sulfapyridine. Results may be falsely depressed after the administration of Sulfasalazine. Performed By: #### 2 4321-2, 53312-9 #### [facility] CLIA [id number] [address] [place] [address] [place] Potassium [Moles/Vol] 4.2 mmol/L Normal 3.5-5.1 [facility] Comment on above: Order Comment: Speci men Type: BLOOD SPECIMEN Ordering Facility: [facility] Address: [address] [place] [address] Performed By: #### 2 4321-2, 40115-1 #### [facility] CLIA [id number] [address] [place] [address] [place] Sodium [Moles/Vol] 138 mmol/L Normal 136-145 [facility] Comment on above: Order Comment: Speci men Type: BLOOD SPECIMEN Ordering Facility: [facility] Address: [address] [place] [address] Performed By: #### 2 4321-2, 59279-0 #### [facility] CLIA [id number] [address] [place] [address] [place] Urea nitrogen [Mass/Vol] 19 mg/dL Normal 7-26 [facility] Comment on above: Order Comment: Speci men Type: BLOOD SPECIMEN Ordering Facility: [facility] Address: [address] [place] [address] Performed By: #### 2 4321-2, 04288-4 #### [facility] CLIA [id number] [address] [place] [address] [place] CBC W Auto Differential pane l (Bld)on 12-15-2023 Basophils (Bld) [#/Vol] 10*3/uL Normal <0.11 [facility] Comment on above: Order Comment: Speci men Type: BLOOD SPECIMEN Ordering Facility: [facility] Address: [address] [place] [address] Performed By: #### 5 7021-8 #### [facility] CLIA [id number] [address] [place] [address] [place] Basophils/100 WBC (Bld) 0.1 % Normal [facility] Comment on above: Order Comment: Speci men Type: BLOOD SPECIMEN Ordering Facility: [facility] Address: [address] [place] [address] Performed By: #### 5 7021-8 #### [facility] CLIA [id number] [address] [place] [address] [place] Differential cell count method Nom (Bld) Auto Normal [facility] Comment on above: Order Comment: Speci men Type: BLOOD SPECIMEN Ordering Facility: [facility] Address: [address] [place] [address] Performed By: #### 5 7021-8 #### [facility] CLIA [id number] [address] [place] [address] [place] Eosinophils (Bld) [#/Vol] 10*3/uL Normal <0.46 [facility] Comment on above: Order Comment: Speci men Type: BLOOD SPECIMEN Ordering Facility: [facility] Address: [address] [place] [address] Performed By: #### 5 7021-8 #### [facility] CLIA [id number] [address] [place] [address] [place] Eosinophils/100 WBC (Bld) 0.0 % Normal [facility] Comment on above: Order Comment: Speci men Type: BLOOD SPECIMEN Ordering Facility: [facility] Address: [address] [place] [address] Performed By: #### 5 7021-8 #### [facility] CLIA [id number] [address] [place] [address] [place] Erythrocyte distribution width (RBC) [Ratio] 14.3 % Normal 11.5-15.0 [facility] Comment on above: Order Comment: Speci men Type: BLOOD SPECIMEN Ordering Facility: [facility] Address: [address] [place] [address] Performed By: #### 5 7021-8 #### [facility] CLIA [id number] [address] [place] [address] [place] Hematocrit (Bld) [Volume fraction] 42.3 % Normal 39.0-51.0 [facility] Comment on above: Order Comment: Speci men Type: BLOOD SPECIMEN Ordering Facility: [facility] Address: [address] [place] [address] Performed By: #### 5 7021-8 #### [facility] CLIA [id number] [address] [place] [address] [place] Hemoglobin (Bld) [Mass/Vol] 14.0 g/dL Normal 13.0-17.0 [facility] Comment on above: Order Comment: Speci men Type: BLOOD SPECIMEN Ordering Facility: [facility] Address: [address] [place] [address] Performed By: #### 5 7021-8 #### [facility] CLIA [id number] [address] [place] [address] [place] Immature granulocytes (Bld) [#/Vol] 0.08 10*3/uL Normal <0.10 [facility] Comment on above: Order Comment: Speci men Type: BLOOD SPECIMEN Ordering Facility: [facility] Address: [address] [place] [address] Performed By: #### 5 7021-8 #### [facility] CLIA [id number] [address] [place] [address] [place] Immature granulocytes/100 WBC (Bld) 0.4 % Normal [facility] Comment on above: Order Comment: Speci men Type: BLOOD SPECIMEN Ordering Facility: [facility] Address: [address] [place] [address] Performed By: #### 5 7021-8 #### [facility] CLIA [id number] [address] [place] [address] [place] Lymphocytes (Bld) [#/Vol] 0.40 10*3/uL Low 1.00-4.00 [facility] Comment on above: Order Comment: Speci men Type: BLOOD SPECIMEN Ordering Facility: [facility] Address: [address] [place] [address] Performed By: #### 5 7021-8 #### [facility] CLIA [id number] [address] [place] [address] [place] Lymphocytes/100 WBC (Bld) 2.1 % Normal [facility] Comment on above: Order Comment: Speci men Type: BLOOD SPECIMEN Ordering Facility: [facility] Address: [address] [place] [address] Performed By: #### 5 7021-8 #### [facility] CLIA [id number] [address] [place] [address] [place] MCH (RBC) [Entitic mass] 28.2 pg Normal 26.0-34.0 [facility] Comment on above: Order Comment: Speci men Type: BLOOD SPECIMEN Ordering Facility: [facility] Address: [address] [place] [address] Performed By: #### 5 7021-8 #### [facility] CLIA [id number] [address] [place] [address] [place] MCHC (RBC) [Mass/Vol] 33.1 g/dL Normal 30.5-36.0 [facility] Comment on above: Order Comment: Speci men Type: BLOOD SPECIMEN Ordering Facility: [facility] Address: [address] [place] [address] Performed By: #### 5 7021-8 #### [facility] CLIA [id number] [address] [place] [address] [place] MCV (RBC) [Entitic vol] 85.3 fL Normal 80.0-100.0 [facility] Comment on above: Order Comment: Speci men Type: BLOOD SPECIMEN Ordering Facility: [facility] Address: [address] [place] [address] Performed By: #### 5 7021-8 #### [facility] CLIA [id number] [address] [place] [address] [place] Monocytes (Bld) [#/Vol] 0.86 10*3/uL Normal <0.87 [facility] Comment on above: Order Comment: Speci men Type: BLOOD SPECIMEN Ordering Facility: [facility] Address: [address] [place] [address] Performed By: #### 5 7021-8 #### [facility] CLIA [id number] [address] [place] [address] [place] Monocytes/100 WBC (Bld) 4.6 % Normal [facility] Comment on above: Order Comment: Speci men Type: BLOOD SPECIMEN Ordering Facility: [facility] Address: [address] [place] [address] Performed By: #### 5 7021-8 #### [facility] CLIA [id number] [address] [place] [address] [place] Neutrophils (Bld) [#/Vol] 17.42 10*3/uL High 1.45-7.50 [facility] Comment on above: Order Comment: Speci men Type: BLOOD SPECIMEN Ordering Facility: [facility] Address: [address] [place] [address] Performed By: #### 5 7021-8 #### [facility] CLIA [id number] [address] [place] [address] [place] Neutrophils/100 WBC (Bld) 92.8 % Normal [facility] Comment on above: Order Comment: Speci men Type: BLOOD SPECIMEN Ordering Facility: [facility] Address: [address] [place] [address] Performed By: #### 5 7021-8 #### [facility] CLIA [id number] [address] [place] [address] [place] Nucleated RBC (Bld) [#/Vol] 10*3/uL Normal <0.01 [facility] Comment on above: Order Comment: Speci men Type: BLOOD SPECIMEN Ordering Facility: [facility] [address] [id number] Performed By: #### 5 7021-8 #### [facility] CLIA [id number] [address] [place] [address] [place] Nucleated RBC/100 WBC (Bld) [Ratio] 0.0 /100 WBC Normal [facility] Comment on above: Order Comment: Speci men Type: BLOOD SPECIMEN Ordering Facility: [facility] Address: [address] [place] [address] Performed By: #### 5 7021-8 #### [facility] CLIA [id number] [address] [place] [address] [place] Platelet mean volume (Bld) [Entitic vol] 9.9 fL Normal 9.0-12.7 [facility] Comment on above: Order Comment: Speci men Type: BLOOD SPECIMEN Ordering Facility: [facility] Address: [address] [place] [address] Performed By: #### 5 7021-8 #### [facility] CLIA [id number] [address] [place] [address] [place] Platelets (Bld) [#/Vol] 258 10*3/uL Normal 150-400 [facility] Comment on above: Order Comment: Speci men Type: BLOOD SPECIMEN Ordering Facility: [facility] Address: [facility] [address] Performed By: #### 5 7021-8 #### [facility] CLIA [id number] [address] [place] [address] [place] RBC (Bld) [#/Vol] 4.96 10*6/uL Normal 4.20-6.00 [facility] Comment on above: Order Comment: Speci men Type: BLOOD SPECIMEN Ordering Facility: [facility] Address: [address] [place] [address] [place] [address] Performed By: #### 5 7021-8 #### [facility] CLIA [id number] [address] [place] [address] [place] WBC (Bld) [#/Vol] 18.78 10*3/uL High 3.70-11.[address] [facility] Comment on above: Order Comment: Speci men Type: BLOOD SPECIMEN Ordering Facility: [facility] Address: [address] [place] [address] Performed By: #### 5 7021-8 #### [facility] CLIA [id number] [address] ECG COMPLETEon 12-15-2023 ECG COMPLETE Ventricular Rate : 9 1 BPM Atrial Rate : 91 BPM P-R Interval : 126 ms QRS Duration : 76 ms Q-T Interval : 354 ms QTC Calculation(Bazett) : 435 ms Calculated P Empire : 81 degrees Calculated R Empire : 79 degrees Calculated T Empire : 78 degrees Sinus rhythm with Premature atrial complexes Otherwise normal ECG No previous ECGs available Confirmed by BRIDGETT IZAGUIRRE MD ([id number]) on 12/15/2023 9:33:58 AM NAME : BEATRIS QUINN PID : [id number] : 1950 Gender : Male Race : ORD : [id number] Procedure Date : Dec 14 2023 22:29:36 Edit Date : Dec 15 2023 09:34:01 Diagnosis: Sinus rhythm with Premature atrial complexes Otherwise normal ECG No previous ECGs available Confirmed by BRIDGETT IZAGUIRRE MD ([id number]) on 12/15/2023 9:33:58 AM Test Reason : STAT Location : 0 : ED [id number] Overread By : BRIDGETT IZAGUIRRE MD Edited By : BRIDGETT IZAGUIRRE MD Referred By : , Acquired by : STEVE, [facility] ED NOTEon 12-15-2023 ED NOTE HNO ID: [id number] Author: MICAELA HILTON RN Service: Emergency Medicine Author Type: Registered Nurse Type: ED Notes Filed: 12/15/2023 00:31 Note Text: Pt ambulated around nursing station. Pt started having expiratory wheezing with wet cough and increased general weakness. Pt able to make complete sun'aq around ED1. Ppt remained between 90-92%RA during ambulation. Meli PAC notified. [facility] ED NOTE HNO ID: [id number] Author: MICAELA HILTON RN Service: Emergency Medicine [...] issues with the coughing, weakness, and SOB. [facility] ED NOTE HNO ID: [id number] Author: SUNDAR MOSQUEDA LPN Service: ? Author Type: LICENSED NURSE Type: ED Notes Filed: 12/14/2023 22:38 Note Text: Bed: 12-ED Expected date: Expected time: Means of arrival: Comments: [facility] ED PROV NOTEon 12-15-2023 ED PROV NOTE HNO ID: [id number] Author: CLAIRE CASE PA-C Service: ? Author Type: Physician Heel Dipper Type: ED Provider Notes Filed: 12/15/2023 01:54 [...] few days later, he went to the [place] emergency department and was evaluated there. He [...] Narrative: This (more content not included)... Normal [facility] ED Triage Noteon 12-15-2023 ED Triage Note HNO ID: [id number] Author: IVAN DO PA-C Service: ? Author Type: Physician Heel Dipper Type: ED Triage Notes Filed: 12/14/2023 22:28 [...] injection (SOLU-Medrol) SIGNATURE: Ivan Do PA-C Normal [facility] FLUABV+SARS-CoV-2+RSV Pnl Re sp JELENA+probeon 12-15-2023 FLUABV+SARS-CoV-2+RSV Pnl Resp JELENA+probe COVID 19 RESULT: Not detected The method used is RT-PCR or an equivalent NAAT method. Reference Range(the expected result in uninfected individuals): Not detected INFLUENZA A PCR: Detected INFLUENZA B PCR: Not detected RSV PCR: Not detected Abnormal [facility] Comment on above: Performed By: #### 9 [id number] #### [facility] CLIA [id number] [address] [place] [address] [place] HIGH SENSITIVITY TROPONIN Io n 12-15-2023 Tropinin I.cardiac panel High sensitivity method 14.2 pg/mL Normal 0.0-54.0 [facility] Comment on above: Order Comment: Haylee russo Type: BLOOD SPECIMEN Ordering Facility: [facility] Address: [address] [place] [address] Result Comment: This assay uses different antibodies than our current assay, and assays, even by the same press tender long goods may recognize different regions of the antibody and cannot be used interchangeably. Expect results of this assay to run higher than the previous assay. Performed By: #### H STROP #### [facility] CLIA [id number] [address] [place] [address] [place] Procalcitonin SerPl-mCncon 0 12-15-2023 Procalcitonin [Mass/Vol] ng/mL Normal 0.00-0.50 [facility] Comment on above: Order Comment: Haylee russo Type: BLOOD SPECIMEN Ordering Facility: [facility] Address: [address] [place] [address] Result Comment: PCT Concentration Interpretation PCT <=0.1 [...] septic shock. Performed By: #### 2 4321-2, 20689-0 #### [facility] CLIA [id number] [address] [place] XR CHEST 2V [...] rib fracture. IMPRESSION: No acute radiographic abnormality. Parts Interpreter: PSCB Transcribe Date/Time: Dec 15 2023 1:22A Dictated by : PAT FINN MD This examination was interpreted and the report reviewed and electronically signed by: PAT FINN MD on Dec 15 2023 1:24AM EST [id number] Normal [facility] Absolute lymphocyte countOrd ered By: Robin Montenegro on 12-11-2023 Lymphocytes Auto (Unsp spec) [#/Vol] 1.05 10*3/uL 0.83-4.51 [facility] Automated lymphocyte count a s percentage of total leukocytesOrdered By: Robin Montenegro on 12-11-2023 Lymphocytes/100 WBC Auto (Unsp spec) 17.2 % 19-41 [facility] Basophil percentageOrdered B y: Robin Montenegro on 12-11-2023 Basophils/100 WBC (Bld) 0.5 % 0-1 [facility] Chloride [Moles/Vol] 105 mmol/L 98-107 [facility] Eosinophils/100 WBC (Bld) 2.6 % 0-5 [facility] Glucose [Mass/Vol] 100 mg/dL 74-106 [facility] Comment on above: Fasting Glucose resu lt from 100 to 125 mg/dL suggests IMPAIRED HOMEOSTASIS per A.D.A. criteria. Hemoglobin (Bld) [Mass/Vol] 13.2 g/dL 13.0-16.5 [facility] Monocytes/100 WBC (Bld) 12.3 % 0-10 [facility] Neutrophils (Bld) [#/Vol] 4.1 10*3/uL 2.0-7.7 [facility] Neutrophils/100 WBC (Bld) 67.2 % 47-70 [facility] Potassium [Moles/Vol] 4.0 mmol/L 3.5-5.1 [facility] Sodium [Moles/Vol] 138 mmol/L 136-145 [facility] WBC (Bld) [#/Vol] 6.1 10*3/uL 4.4-11.0 [facility] Determination of erythrocyte mean corpuscular volume (MCV)Ordered By: Robin Montenegro on 12-11-2023 MCV (RBC) [Entitic vol] 87.4 fL 80-94 [facility] Erythrocyte distribution wid th ratioOrdered By: Robin Montenegro on 12-11-2023 Erythrocyte distribution width (RBC) [Ratio] 14.6 % 11.6-14.6 [facility] Erythrocyte distribution wid th standard deviationOrdered By: Robin Montenegro on 12-11-2023 Erythrocyte distribution width (RBC) [Entitic vol] 46.9 fL 35.1-43.9 [facility] Hematocrit Auto (Bld) [Volum e fraction]Ordered By: Robin Montenegro on 12-11-2023 Hematocrit (Bld) [Volume fraction] 40.3 % 40-54 [facility] Immature granulocytes/100 WB C Auto (Bld)Ordered By: Robin Montenegro on 12-11-2023 Immature granulocytes/100 WBC (Bld) 0.200 % 0.0-0.9 [facility] Comment on above: IG% - Immature Granu locytes (promyelocytes, myelocytes and metamyelocytes) > 1% indicates that a LEFT SHIFT is Present. Laboratory - Chemistry and C hemistry - challengeOrdered By: Robin Montenegro on 12-11-2023 CO2 [Moles/Vol] 30.0 mmol/L 21.0-32.0 [facility] Urea nitrogen/Creatinine [Mass ratio] 18.3 mg/mg 10-20 [facility] Laboratory - Hematology and Cell countsOrdered By: Robin Montenegro on 12-11-2023 MCH (RBC) [Entitic mass] 28.6 pg 27.0-32.0 [facility] MCHC (RBC) [Mass/Vol] 32.8 g/dL 32-36 [facility] Nucleated RBC/100 WBC (Bld) [Ratio] 0 % 0-5 [facility] Platelet mean volume (Bld) [Entitic vol] 9.4 fL 6.2-12.0 [facility] Platelets (Bld) [#/Vol] 191 10*3/uL 150-450 [facility] Laboratory - Microbiology an d Antimicrobial susceptibilityOrdered By: Robin Montenegro on 12-11-2023 SARS-CoV-2 (COVID-19) RNA JELENA+probe Ql (Unsp spec) Influenzae A [facility] No Panel InformationOrdered By: Robin Montenegro on 12-11-2023 Estimated Creatinine Clearance Calc 66.92 ml/min [facility] Estimated GFR (MDRD) Amer 110 mL/min >60 [facility] Comment on above: GFR Calc Estimated GFR (MDRD) Non-Af Amer 91 mL/min >60 [facility] Comment on above: Non- GFR Calc Troponin I High Sensitivity 10 pg/mL 3.0-78.0 [facility] Comment on above: Please Note: New Lana t Units and Gender Specific Reference Ranges. For more information see Policy Stat Procedure [place] High Sensitivity Troponin (TNIH) and attachments. RBC Auto (Bld) [#/Vol]Ordere d By: Robin Montenegro on 12-11-2023 RBC (Bld) [#/Vol] 4.61 10*6/uL 4.6-6.2 [facility] Serum or plasma calcium christiana urement (mass/volume)Ordered By: Roibn Montenegro on 12-11-2023 Calcium [Mass/Vol] 8.7 mg/dL 8.5-10.1 [facility] Serum or plasma creatinine m easurement (mass/volume)Ordered By: Robin Montenegro on 12-11-2023 Creatinine [Mass/Vol] 0.87 mg/dL 0.70-1.30 [facility] Comment on above: The validity of the calculated GFR & GFRAA in patients over 70 years has not been determined. Clinical correlation is essential. Serum or plasma urea nitroge n measurement (mass/volume)Ordered By: Robin Montenegro on 12-11-2023 Urea nitrogen [Mass/Vol] 16 mg/dL 7-18 [facility] Thin prep Papanicolaou smear with manual screeningOrdered By: Robin Montenegro on 12-11-2023 Thin prep Papanicolaou smear with manual screening 3 5-15 [facility] Absolute lymphocyte countOrd ered By: Dean Salas on 10-29-2023 Lymphocytes Auto (Unsp spec) [#/Vol] 0.85 10*3/uL 0.83-4.51 [facility] Automated lymphocyte count a s percentage of total leukocytesOrdered By: Dean Salas on 10-29-2023 Lymphocytes/100 WBC Auto (Unsp spec) 8.0 % 19-41 [facility] Basophil percentageOrdered B y: Dean Salas on 10-29-2023 Basophils/100 WBC (Bld) 0.4 % 0-1 [facility] Chloride [Moles/Vol] 107 mmol/L 98-107 [facility] Eosinophils/100 WBC (Bld) 2.2 % 0-5 [facility] Glucose [Mass/Vol] 126 mg/dL 74-106 [facility] Comment on above: Fasting Glucose resu lt greater than or equal to 126 mg/dL suggests DIABETES MELLITUS per A.D.A. criteria. Hemoglobin (Bld) [Mass/Vol] 12.6 g/dL 13.0-16.5 [facility] Monocytes/100 WBC (Bld) 12.1 % 0-10 [facility] Neutrophils (Bld) [#/Vol] 8.1 10*3/uL 2.0-7.7 [facility] Neutrophils/100 WBC (Bld) 76.8 % 47-70 [facility] Potassium [Moles/Vol] 3.8 mmol/L 3.5-5.1 [facility] Sodium [Moles/Vol] 139 mmol/L 136-145 [facility] WBC (Bld) [#/Vol] 10.6 10*3/uL 4.4-11.0 [facility] Determination of erythrocyte mean corpuscular volume (MCV)Ordered By: Dean Salas on 10-29-2023 MCV (RBC) [Entitic vol] 86.7 fL 80-94 [facility] Erythrocyte distribution wid th ratioOrdered By: Dean Salas on 10-29-2023 Erythrocyte distribution width (RBC) [Ratio] 13.8 % 11.6-14.6 [facility] Erythrocyte distribution wid th standard deviationOrdered By: Dean Salas on 10-29-2023 Erythrocyte distribution width (RBC) [Entitic vol] 44.2 fL 35.1-43.9 [facility] Hematocrit Auto (Bld) [Volum e fraction]Ordered By: Dean Salas on 10-29-2023 Hematocrit (Bld) [Volume fraction] 39.0 % 40-54 [facility] Immature granulocytes/100 WB C Auto (Bld)Ordered By: Dean Salas on 10-29-2023 Immature granulocytes/100 WBC (Bld) 0.500 % 0.0-0.9 [facility] Comment on above: IG% - Immature Granu locytes (promyelocytes, myelocytes and metamyelocytes) > 1% indicates that a LEFT SHIFT is Present. Laboratory - Chemistry and C hemistry - challengeOrdered By: Dean Salas on 10-29-2023 CO2 [Moles/Vol] 29.0 mmol/L 21.0-32.0 [facility] Natriuretic peptide B (Bld) [Mass/Vol] 39.3 pg/mL 0-100 [facility] Urea nitrogen/Creatinine [Mass ratio] 18.6 mg/mg 10-20 [facility] Laboratory - Hematology and Cell countsOrdered By: Dean Salas on 10-29-2023 MCH (RBC) [Entitic mass] 28.0 pg 27.0-32.0 [facility] MCHC (RBC) [Mass/Vol] 32.3 g/dL 32-36 [facility] Nucleated RBC/100 WBC (Bld) [Ratio] 0 % 0-5 [facility] Platelet mean volume (Bld) [Entitic vol] 9.1 fL 6.2-12.0 [facility] Platelets (Bld) [#/Vol] 282 10*3/uL 150-450 [facility] No Panel InformationOrdered By: Dean Salas on 10-29-2023 Estimated Creatinine Clearance Calc 67.54 ml/min [facility] Estimated GFR (MDRD) Amer 112 mL/min >60 [facility] Comment on above: GFR Calc Estimated GFR (MDRD) Non-Af Amer 92 mL/min >60 [facility] Comment on above: Non- GFR Calc Troponin I High Sensitivity 8 pg/mL 3.0-78.0 [facility] Comment on above: Please Note: New Lana t Units and Gender Specific Reference Ranges. For more information see Policy Stat Procedure [place] High Sensitivity Troponin (TNIH) and attachments. RBC Auto (Bld) [#/Vol]Ordere d By: Dean Salas on 10-29-2023 RBC (Bld) [#/Vol] 4.50 10*6/uL 4.6-6.2 [facility] Serum or plasma calcium christiana urement (mass/volume)Ordered By: Dean Salas on 10-29-2023 Calcium [Mass/Vol] 9.3 mg/dL 8.5-10.1 [facility] Serum or plasma creatinine m easurement (mass/volume)Ordered By: Dean Salas on 10-29-2023 Creatinine [Mass/Vol] 0.86 mg/dL 0.70-1.30 [facility] Comment on above: The validity of the calculated GFR & GFRAA in patients over 70 years has not been determined. Clinical correlation is essential. Serum or plasma urea nitroge n measurement (mass/volume)Ordered By: Dean Salas on 10-29-2023 Urea nitrogen [Mass/Vol] 16 mg/dL 7-18 [facility] Thin prep Papanicolaou smear with manual screeningOrdered By: Dean Salas on 10-29-2023 Thin prep Papanicolaou smear with manual screening 3 5-15 [facility] Absolute lymphocyte counton 08-29-2022 Lymphocytes Auto (Unsp spec) [#/Vol] 0.30 10*3/uL 0.83-4.51 [facility] Work Phone: Basophil percentageon 2022 Basophils/100 WBC (Bld) 0.1 % 0-1 [facility] Work Phone: Bilirubin [Mass/Vol] 0.50 mg/dL 0.20-1.00 [facility] Work Phone: Comment on above: For patients on eltr ombopag therapy, use of Dimension [place] TBIL is not recommended. Chloride [Moles/Vol] 100 mmol/L 98-107 [facility] Work Phone: Eosinophils/100 WBC (Bld) 0.0 % 0-5 [facility] Work Phone: Glucose [Mass/Vol] 185 mg/dL 74-106 [facility] Work Phone: Comment on above: Fasting Glucose resu lt greater than or equal to 126 mg/dL suggests DIABETES MELLITUS per A.D.A. criteria. Neutrophils (Bld) [#/Vol] 10.8 10*3/uL 2.0-7.7 [facility] Work Phone: Neutrophils/100 WBC (Bld) 93.1 % 47-70 [facility] Work Phone: Potassium [Moles/Vol] 3.9 mmol/L 3.5-5.1 [facility] Work Phone: Protein [Mass/Vol] 6.4 g/dL 6.4-8.2 [facility] Work Phone: Sodium [Moles/Vol] 137 mmol/L 136-145 [facility] Work Phone: WBC (Bld) [#/Vol] 11.6 10*3/uL 4.4-11.0 [facility] Work Phone: Blood erythrocytes count (nu mber/volume)on 08-29-2022 RBC (Bld) [#/Vol] 4.66 10*6/uL 4.6-6.2 [facility] Work Phone: [phone] Blood hemoglobin measurement (mass/volume)on 08-29-2022 Hemoglobin (Bld) [Mass/Vol] 12.9 g/dL 13.0-16.5 [facility] Work Phone: [phone] Blood lymphocytes/100 leukoc yteson 08-29-2022 Lymphocytes/100 WBC (Bld) 2.6 % 19-41 [facility] Work Phone: [phone] Blood manual differential co mment interpretation (narrative result)on 08-29-2022 Manual differential comment Geraldo (Bld) [Interp] SCANNED [facility] Work Phone: Comment on above: LYMPHOPENIA NOTED Blood monocytes/100 leukocyt eson 08-29-2022 Monocytes/100 WBC (Bld) 3.5 % 0-10 [facility] Work Phone: [phone] Blood platelet mean volumeon 08-29-2022 Platelet mean volume (Bld) [Entitic vol] 9.6 fL 6.2-12.0 [facility] Work Phone: [phone] Determination of erythrocyte mean corpuscular volume (MCV)on 08-29-2022 MCV (RBC) [Entitic vol] 86.3 fL 80-94 [facility] Work Phone: [phone] Hematocrit Auto (Bld) [Volum e fraction]on 08-29-2022 Hematocrit (Bld) [Volume fraction] 40.2 % 40-54 [facility] Work Phone: [phone] Laboratory - Chemistry and C hemistry - challengeon 08-29-2022 ALP [Catalytic activity/Vol] 81 U/L 45-117 [facility] Work Phone: [phone] ALT [Catalytic activity/Vol] 24 U/L 16-61 [facility] Work Phone: [phone] CO2 [Moles/Vol] 31.0 mmol/L 21.0-32.0 [facility] Work Phone: [phone] Globulin (S) [Mass/Vol] 3.7 g/dL 2.2-4.2 [facility] Work Phone: [phone] Urea nitrogen/Creatinine [Mass ratio] 25.9 mg/mg 10-20 [facility] Work Phone: [phone] Laboratory - Hematology and Cell countson 08-29-2022 Erythrocyte distribution width (RBC) [Entitic vol] 45.0 fL 35.1-43.9 [facility] Work Phone: [phone] Erythrocyte distribution width (RBC) [Ratio] 14.3 % 11.6-14.6 [facility] Work Phone: [phone] Immature granulocytes/100 WBC (Bld) 0.700 % 0.0-0.9 [facility] Work Phone: [phone] Comment on above: IG% - Immature Granu locytes (promyelocytes, myelocytes and metamyelocytes) > 1% indicates that a LEFT SHIFT is Present. MCH (RBC) [Entitic mass] 27.7 pg 27.0-32.0 [facility] Work Phone: [phone] Nucleated RBC/100 WBC (Bld) [Ratio] 0 % 0-5 [facility] Work Phone: [phone] MCHC Auto (RBC) [Mass/Vol]on 08-29-2022 MCHC (RBC) [Mass/Vol] 32.1 g/dL 32-36 [facility] Work Phone: [phone] No Panel Informationon 08-29 Estimated Creatinine Clearance Calc 67.41 ml/min [facility] Work Phone: [phone] Estimated GFR (MDRD) Amer 108 mL/min >60 [facility] Work Phone: [phone] Comment on above: GFR Calc Estimated GFR (MDRD) Non-Af Amer 90 mL/min >60 [facility] Work Phone: [phone] Comment on above: Non- GFR Calc Platelets bldon 08-29-2022 Platelets (Bld) [#/Vol] 330 10*3/uL 150-450 [facility] Work Phone: [phone] Serum or plasma albumin christiana urement (mass/volume)on 08-29-2022 Albumin [Mass/Vol] 2.7 g/dL 3.2-5.0 [facility] Work Phone: [phone] Serum or plasma albumin/glob ulin mass ratioon 08-29-2022 Albumin/Globulin [Mass ratio] 0.7 {ratio} 0.9-2.4 [facility] Work Phone: [phone] Serum or plasma calcium christiana urement (mass/volume)on 08-29-2022 Calcium [Mass/Vol] 8.7 mg/dL 8.5-10.1 [facility] Work Phone: [phone] Serum or plasma creatinine m easurement (mass/volume)on 08-29-2022 Creatinine [Mass/Vol] 0.89 mg/dL 0.70-1.30 [facility] Work Phone: Comment on above: The validity of the calculated GFR & GFRAA in patients over 70 years has not been determined. Clinical correlation is essential. Serum or plasma urea nitroge n measurement (mass/volume)on 08-29-2022 Urea nitrogen [Mass/Vol] 23 mg/dL 7-18 [facility] Work Phone: Thin prep Papanicolaou smear with manual screeningon 08-29-2022 Thin prep Papanicolaou smear with manual screening 15 U/L 15-37 [facility] Work Phone: [phone] Thin prep Papanicolaou smear with manual screening 6 5-15 [facility] Work Phone: [phone] Absolute lymphocyte counton 08-26-2022 Lymphocytes Auto (Unsp spec) [#/Vol] 0.81 10*3/uL 0.83-4.51 [facility] Work Phone: Basophil percentageon 2022 Chloride [Moles/Vol] 99 mmol/L 98-107 [facility] Work Phone: [phone] Glucose [Mass/Vol] 156 mg/dL 74-106 [facility] Work Phone: [phone] Comment on above: Fasting Glucose resu lt greater than or equal to 126 mg/dL suggests DIABETES MELLITUS per A.D.A. criteria. Potassium [Moles/Vol] 3.8 mmol/L 3.5-5.1 [facility] Work Phone: Sodium [Moles/Vol] 136 mmol/L 136-145 [facility] Work Phone: Lactate [Moles/Vol] 1.8 mmol/L 0.4-2.0 [facility] Work Phone: Basophils/100 WBC (Bld) 0.1 % 0-1 [facility] Work Phone: Eosinophils/100 WBC (Bld) 0.0 % 0-5 [facility] Work Phone: Neutrophils (Bld) [#/Vol] 16.6 10*3/uL 2.0-7.7 [facility] Work Phone: Neutrophils/100 WBC (Bld) 87.1 % 47-70 [facility] Work Phone: WBC (Bld) [#/Vol] 19.1 10*3/uL 4.4-11.0 [facility] Work Phone: Blood erythrocytes count (nu mber/volume)on 08-26-2022 RBC (Bld) [#/Vol] 5.46 10*6/uL 4.6-6.2 [facility] Work Phone: Blood hemoglobin measurement (mass/volume)on 08-26-2022 Hemoglobin (Bld) [Mass/Vol] 15.4 g/dL 13.0-16.5 [facility] Work Phone: Blood lymphocytes/100 leukoc yteson 08-26-2022 Lymphocytes/100 WBC (Bld) 4.3 % 19-41 [facility] Work Phone: Blood manual differential co mment interpretation (narrative result)on 08-26-2022 Manual differential comment Geraldo (Bld) [Interp] SCANNED [facility] Work Phone: Comment on above: BANDS NOTED Blood monocytes/100 leukocyt eson 08-26-2022 Monocytes/100 WBC (Bld) 8.1 % 0-10 [facility] Work Phone: [phone] Blood platelet mean volumeon 08-26-2022 Platelet mean volume (Bld) [Entitic vol] 9.4 fL 6.2-12.0 [facility] Work Phone: [phone] Determination of erythrocyte mean corpuscular volume (MCV)on 08-26-2022 MCV (RBC) [Entitic vol] 87.0 fL 80-94 [facility] Work Phone: [phone] Hematocrit Auto (Bld) [Volum e fraction]on 08-26-2022 Hematocrit (Bld) [Volume fraction] 47.5 % 40-54 [facility] Work Phone: [phone] Laboratory - Chemistry and C hemistry - challengeon 08-26-2022 CO2 [Moles/Vol] 33.0 mmol/L 21.0-32.0 [facility] Work Phone: [phone] Urea nitrogen/Creatinine [Mass ratio] 35.3 mg/mg 10-20 [facility] Work Phone: [phone] Laboratory - Hematology and Cell countson 08-26-2022 Erythrocyte distribution width (RBC) [Entitic vol] 46.1 fL 35.1-43.9 [facility] Work Phone: [phone] Erythrocyte distribution width (RBC) [Ratio] 14.3 % 11.6-14.6 [facility] Work Phone: [phone] Immature granulocytes/100 WBC (Bld) 0.400 % 0.0-0.9 [facility] Work Phone: [phone] Comment on above: IG% - Immature Granu locytes (promyelocytes, myelocytes and metamyelocytes) > 1% indicates that a LEFT SHIFT is Present. MCH (RBC) [Entitic mass] 28.2 pg 27.0-32.0 [facility] Work Phone: [phone] Nucleated RBC/100 WBC (Bld) [Ratio] 0 % 0-5 [facility] Work Phone: [phone] MCHC Auto (RBC) [Mass/Vol]on 08-26-2022 MCHC (RBC) [Mass/Vol] 32.4 g/dL 32-36 [facility] Work Phone: No Panel Informationon 08-26 Estimated Creatinine Clearance Calc 59.94 ml/min [facility] Work Phone: Estimated GFR (MDRD) Amer 92 mL/min >60 [facility] Work Phone: Comment on above: GFR Calc Estimated GFR (MDRD) Non-Af Amer 76 mL/min >60 [facility] Work Phone: Comment on above: Non- GFR Calc Troponin I High Sensitivity 14 pg/mL 3.0-78.0 [facility] Work Phone: Comment on above: Please Note: New Lana t Units and Gender Specific Reference Ranges. For more information see Policy Stat Procedure [place] High Sensitivity Troponin (TNIH) and attachments. Platelets bldon 08-26-2022 Platelets (Bld) [#/Vol] 364 10*3/uL 150-450 [facility] Work Phone: Review by pathologiston Pathologist review Geraldo (Unsp spec) [Interp] December taco [facility] Work Phone: Pathologist review Geraldo (Unsp spec) [Interp] Reviewed [facility] Work Phone: Comment on above: Previous reported re sult: Xin [employer] Edited by: RGOOD on 08/29/22:0933Neutrophilic leukocytosis.Clinical correlation suggested.Nigel Florez D.O. 08/29/22 AMENDED REPORT 08/29/22 0933 PATH REV previously reported as: [employer] Serum or plasma calcium christiana urement (mass/volume)on 08-26-2022 Calcium [Mass/Vol] 9.0 mg/dL 8.5-10.1 [facility] Work Phone: Serum or plasma creatinine m easurement (mass/volume)on 08-26-2022 Creatinine [Mass/Vol] 1.02 mg/dL 0.70-1.30 [facility] Work Phone: Comment on above: The validity of the calculated GFR & GFRAA in patients over 70 years has not been determined. Clinical correlation is essential. Serum or plasma urea nitroge n measurement (mass/volume)on 08-26-2022 Urea nitrogen [Mass/Vol] 36 mg/dL 7-18 [facility] Work Phone: Thin prep Papanicolaou smear with manual screeningon 08-26-2022 Thin prep Papanicolaou smear with manual screening 4 5-15 [facility] Work Phone: .Auto Diffon 08-23-2022 Basophil, Absolute 0.0 10 3/mcL Normal 0.0-0.3 [facility] ([place]) Comment on above: Performed By: #### EMILY JEFFERSON, GFR #### [address] [address] Basophils/100 WBC (Bld) 0.3 % Normal 0.0-2.5 [facility] ([place]) Comment on above: Performed By: #### EMILY JEFFERSON, GFR #### [address] [address] Eosinophil, Absolute 0.1 10 3/mcL Normal 0.0-0.7 [facility] ([place]) Comment on above: Performed By: #### EMILY JEFFERSON, GFR #### [address] [address] Eosinophils/100 WBC (Bld) 0.9 % Normal 0.0-6.0 [facility] ([place]) Comment on above: Performed By: #### EMILY JEFFERSON, GFR #### [address] [address] Lymphocyte, Absolute 0.6 10 3/mcL Low 0.9-4.3 [facility] ([place]) Comment on above: Performed By: #### EMILY JEFFERSON, GFR #### [address] [address] Lymphocytes/100 WBC (Bld) 4.7 % Low 20.0-40.0 [facility] ([place]) Comment on above: Performed By: #### EMILY JEFFERSON, GFR #### [address] [address] Monocyte, Absolute 1.2 10 3/mcL Normal 0.1-1.4 [facility] ([place]) Comment on above: Performed By: #### T CEFERINO BMP, GFR #### [address] [address] Monocytes/100 WBC (Bld) 8.6 % Normal 2.0-13.0 [facility] ([place]) Comment on above: Performed By: #### T CEFERINO BMP, GFR #### [address] [address] Neutrophils/100 WBC (Bld) 85.5 % High 50.0-75.0 [facility] ([place]) Comment on above: Performed By: #### T CEFERINO BMP, GFR #### [address] [address] .GFRon 08-23-2022 GFR >60 Normal [facility] ([place]) Comment on above: Result Comment: GFR Population [...] By: #### T CEFERINO BMP, GFR #### [address] [address] GFR Non- >60 Normal [facility] ([place]) Comment on above: Result Comment: GFR Population [...] By: #### T CEFERINO BMP, GFR #### [address] [address] .MDWon 08-23-2022 Monocyte Distribution Width 19.08 Normal 0.00-20.00 [facility] ([place]) Comment on above: Result Comment: For ED adult patients suspected of sepsis, MDW<=20.0 does not rule out sepsis or risk of sepsis Performed By: #### T EMILY DE LA VEGA, GFR #### [address] [address] .NEUABSon 08-23-2022 Neutrophil, Absolute 11.6 10 3/mcL High 2.3-8.1 A [facility] ([place]) Comment on above: Performed By: #### T EMILY DE LA VEGA, GFR #### [address] [address] Absolute lymphocyte counton 08-23-2022 Lymphocytes Auto (Unsp spec) [#/Vol] 0.57 10*3/uL 0.83-4.51 [facility] Work Phone: BMPon 08-23-2022 BUN/Creatinine Ratio 24.4 ratio High 10.0-22.0 [facility] ([place]) Comment on above: Performed By: #### T CEFERINO, BMP, GFR #### [address] [address] Calcium [Mass/Vol] 9.9 mg/dL Normal 8.7-10.4 [facility] ([place]) Comment on above: Performed By: #### T CEFERINO BMP, GFR #### [address] [address] Chloride [Moles/Vol] 97 mmol/L Low 98-110 [facility] ([place]) Comment on above: Performed By: #### T CEFERINO, BMP, GFR #### [address] [address] CO2 [Moles/Vol] 30 mmol/L Normal 22-32 [facility] ([place]) Comment on above: Performed By: #### T CEFERINO, BMP, GFR #### [address] [address] Creatinine [Mass/Vol] 0.78 mg/dL Normal 0.60-1.40 [facility] ([place]) Comment on above: Performed By: #### T CEFERINO, BMP, GFR #### [address] [address] Electrolyte Balance 7.0 mEq/L Normal 4.0-15.0 [facility] ([place]) Comment on above: Performed By: #### T CEFERINO, BMP, GFR #### [address] [address] Glucose [Mass/Vol] 120 mg/dL High 82-115 [facility] ([place]) Comment on above: Performed By: #### T CEFERINO, BMP, GFR #### [address] [address] Potassium [Moles/Vol] 4.3 mmol/L Normal 3.5-5.0 [facility] ([place]) Comment on above: Performed By: #### T CEFERINO, BMP, GFR #### [address] [address] Sodium [Moles/Vol] 134 mmol/L Low 136-145 [facility] ([place]) Comment on above: Performed By: #### T CEFERINO, BMP, GFR #### [address] [address] Urea nitrogen [Mass/Vol] 19.0 mg/dL Normal 8.0-22.0 [facility] ([place]) Comment on above: Performed By: #### T CEFERINO, BMP, GFR #### [address] [address] Basophil percentageon 2021 Basophils/100 WBC (Bld) 0.4 % 0-1 [facility] Work Phone: Chloride [Moles/Vol] 99 mmol/L 98-[address] [facility] Work [facility]: Eosinophils/100 WBC (Bld) 0.0 % 0-5 [facility] Work Phone: Glucose [Mass/Vol] 147 mg/dL 74-106 [facility] Work Phone: Comment on above: Fasting Glucose resu lt greater than or equal to 126 mg/dL suggests DIABETES MELLITUS per A.D.A. criteria. Neutrophils (Bld) [#/Vol] 14.2 10*3/uL 2.0-7.7 [facility] Work Phone: Neutrophils/100 WBC (Bld) 85.6 % 47-70 [facility] Work Phone: Potassium [Moles/Vol] 3.8 mmol/L 3.5-5.1 [facility] Work [facility]: Sodium [Moles/Vol] 134 mmol/L 136-145 [facility] Work Phone: WBC (Bld) [#/Vol] 16.5 10*3/uL 4.4-11.0 [facility] Work Phone: Blood erythrocytes count (nu mber/volume)on 08-23-2022 RBC (Bld) [#/Vol] 5.50 10*6/uL 4.6-6.2 [facility] Work Phone: Blood hemoglobin measurement (mass/volume)on 08-23-2022 Hemoglobin (Bld) [Mass/Vol] 15.5 g/dL 13.0-16.5 [facility] Work Phone: Blood lymphocytes/100 leukoc yteson 08-23-2022 Lymphocytes/100 WBC (Bld) 3.5 % 19-41 [facility] Work Phone: Blood monocytes/100 leukocyt eson 08-23-2022 Monocytes/100 WBC (Bld) 9.9 % 0-10 [facility] Work Phone: Blood platelet mean volumeon 08-23-2022 Platelet mean volume (Bld) [Entitic vol] 10.0 fL 6.2-12.0 [facility] Work Phone: CBCon 08-23-2022 Erythrocyte distribution width (RBC) [Ratio] 14.3 % Normal 11.5-15.5 [facility] ([place]) Comment on above: Performed By: #### T EMILY DE LA VEGA, GFR #### [address] [address] Hematocrit (Bld) [Volume fraction] 45.5 % Normal 40.0-52.0 [facility] ([place]) Comment on above: Performed By: #### T EMILY DE LA VEGA, GFR #### [address] [address] Hgb 14.7 G/dL Normal 13.0-17.5 [facility] ([place] Comment on above: Performed By: #### T EMILY DE LA VEGA, GFR #### [address] [address] MCH (RBC) [Entitic mass] 27.4 pg Normal 27.0-33.0 [facility] ([place]) Comment on above: Performed By: #### T EMILY DE LA VEGA, GFR #### [address] [address] MCHC 32.4 G/dL Normal 32.0-36.0 [facility] ([place]) Comment on above: Performed By: #### T EMILY DE LA VEGA, GFR #### [address] [address] MCV (RBC) [Entitic vol] 84.5 fL Normal 81.0-100.0 A [facility] ([place]) Comment on above: Performed By: #### T EMILY DE LA VEGA, GFR #### [address] [address] Platelet 229 10 3/mcL Normal 150-450 [facility] ([place]) Comment on above: Performed By: #### T EMILY DE LA VEGA, GFR #### [place] [address] Platelet mean volume (Bld) [Entitic vol] 8.1 fL Normal 6.4-10.5 [facility] ([place]) Comment on above: Performed By: #### T EMILY DE LA VEGA, GFR #### [place] [address] RBC 5.39 10 6/mcL Normal 4.50-6.00 [facility] ([place]) Comment on above: Performed By: #### T EMILY DE LA VEGA, GFR #### [place] [address] WBC 13.6 10 3/mcL High 4.5-10.8 [facility] ([place]) Comment on above: Performed By: #### T EMILY DE LA VEGA, GFR #### [place] [address] CVFLURVon 08-23-2022 FLU A PCR Negative Normal Negative [facility] ([place]) Comment on above: Result [place]: [place] [id number] Performed By: #### C VFLURV #### [place] [address] FLU B PCR Negative Normal Negative [facility] ([place]) Comment on above: Result Comment: [place] [id number] Performed By: #### C VFLURV #### [place] [address] RSV PCR Negative Normal Negative [facility] ([place] Comment on above: [place] [id number] Performed By: #### C VFLURV #### [place] [address] SARS-CoV-2 (COVID-19) RNA JELENA+probe Ql (Unsp spec) Negative Normal Negative [facility] ([place]) Comment on above: Result Comment: [place] [id number] This test has been authorized by FDA [...] inaccurate positive results. Performed By: #### C [facility] #### [place] [address] Determination of erythrocyte mean corpuscular volume (MCV)on 08-23-2022 MCV (RBC) [Entitic vol] 84.7 fL 80-94 [facility] Work Phone: Hematocrit Auto (Bld) [Volum e fraction]on 08-23-2022 Hematocrit (Bld) [Volume fraction] 46.6 % 40-54 [facility] Work Phone: LABORATORYOrdered By: SYSTEM SYSTEM on [...] Comment on above: [place] [id number] FLUBV RNA JELENA+probe Ql (Resp) Negative 4 (08/23/22 12:22 PM) Invalid Interpretation Code Negative Auto Viro/Sero SS Comment on above: [place] [id number] RSV PCR Negative 5 (08/23/22 12:22 PM) Invalid Interpretation Code Negative Auto Viro/Sero SS Comment on above: Result [place]: [place] [id number] SARS-CoV-2 (COVID-19) RNA JELENA+probe Ql (Resp) Negative 2 (08/23/22 12:22 PM) Invalid Interpretation Code Negative AH Auto Viro/Sero SS Comment on above: Result Comment: [place] [id number] Laboratory - Chemistry and C hemistry - challengeon 08-23-2022 CO2 [Moles/Vol] 27.0 mmol/L 21.0-32.0 [facility] Work Phone: [phone] Urea nitrogen/Creatinine [Mass ratio] 23.0 mg/mg 10-20 [facility] Work Phone: [phone] Laboratory - Hematology and Cell countson 08-23-2022 Erythrocyte distribution width (RBC) [Entitic vol] 42.4 fL 35.1-43.9 [facility] Work Phone: [phone] Erythrocyte distribution width (RBC) [Ratio] 13.7 % 11.6-14.6 [facility] Work Phone: [phone] Immature granulocytes/100 WBC (Bld) 0.600 % 0.0-0.9 [facility] Work Phone: [phone] Comment on above: IG% - Immature Granu locytes (promyelocytes, myelocytes and metamyelocytes) > 1% indicates that a LEFT SHIFT is Present. MCH (RBC) [Entitic mass] 28.2 pg 27.0-32.0 [facility] Work Phone: [phone] Nucleated RBC/100 WBC (Bld) [Ratio] 0 % 0-5 [facility] Work Phone: [phone] MCHC Auto (RBC) [Mass/Vol]on 08-23-2022 MCHC (RBC) [Mass/Vol] 33.3 g/dL 32-36 [facility] Work Phone: [phone] No Panel Informationon 08-23 Estimated Creatinine Clearance Calc 61.14 ml/min [facility] Work Phone: [phone] Estimated GFR (MDRD) Amer 95 mL/min >60 [facility] Work Phone: [phone] Comment on above: GFR Calc Estimated GFR (MDRD) Non-Af Amer 78 mL/min >60 [facility] Work Phone: [phone] Comment on above: Non- GFR Calc Troponin I High Sensitivity 13 pg/mL 3.0-78.0 [facility] Work Phone: Comment on above: Please Note: New Lana t Units and Gender Specific Reference Ranges. For more information see Policy Stat Procedure [place] High Sensitivity Troponin (TNIH) and attachments. Platelets bldon 08-23-2022 Platelets (Bld) [#/Vol] 256 10*3/uL 150-450 [facility] Work Phone: Review by pathologiston 07-27 Pathologist review Geraldo (Unsp spec) [Interp] Reviewed [facility] Work Phone: Comment on above: Previous reported re sult: Xin españa Edited by: ESTELA on 08/24/22:1137Neutrophilic leukocytosis.Clinical correlation necessary.Desmond Camacho M.D. 08/24/22 AMENDED REPORT 08/24/22 1137 PATH REV previously reported as: Xin españa Serum or plasma calcium christiana urement (mass/volume)on 08-23-2022 Calcium [Mass/Vol] 9.4 mg/dL 8.5-10.1 [facility] Work Phone: Serum or plasma creatinine m easurement (mass/volume)on 08-23-2022 Creatinine [Mass/Vol] 1.00 mg/dL 0.70-1.30 [facility] Work Phone: Comment on above: The validity of the calculated GFR & GFRAA in patients over 70 years has not been determined. Clinical correlation is essential. Serum or plasma urea nitroge n measurement (mass/volume)on 08-23-2022 Urea nitrogen [Mass/Vol] 23 mg/dL 7-18 [facility] Work Phone: TROPHSon 08-23-2022 Troponin I High Sensitivity 4.19 ng/L Normal 0.00-54.00 [facility] ([place]) Comment on above: Result Comment: If t he High Sensitive Troponin result is below the 99th percentile value (<45 ng/L) at the first blood draw, at least two additional blood samples should be drawn before results are interpreted as negative for AMI. Performed By: #### T ROPHS, BMP, GFR #### [facility] [address] [place] [address] Thin prep Papanicolaou smear with manual screeningon 08-23-2022 Thin prep Papanicolaou smear with manual screening 01-07 [facility] Work Phone: XR CHEST 1 VIEWon 08-23-2022 [...] AM Ordering Provider: JUAN Wang [facility] ([place]) LABORATORYOrdered By: SYSTEM SYSTEM on 06-20-2021 Base [...] Routine cultures are held for [address] [facility] Work Phone: OPERATIVE PROCEDURESon 11-25 OPERATIVE PROCEDURES [facility] OPERATIVE REPORT NAME ACCOUNT SEX AGE ADMIT DISCHARGE PT MED. RECORD# NUMBER DATE DATE TYPE BEATRIS QUINN [id number] M 69 11/18/20 2 [id number] ROOM: [facility] DATE OF : 1950 DICTATING PHYSICIAN: Sahara Jay DATE OF SURGERY: November 18, 2020 SURGEON: Sahara Jay MD HOSPITAL INTERN: ANESTHESIOLOGIST: ANESTHETIC: MAC. PREOPERATIVE DIAGNOSIS: Screening colonoscopy. [...] Sahara Jay MD 11/18/20 13:08 JOB #: [id number] Transcribed By: jeovany 11/19/20 07:37 Electronically signed by: E-SIGN DR. JAY 11/25/20 09:12 Page 2 of 2 BEATRIS QUINN Operative Report Normal [facility] Gram stain for investigation of transfusion reaction Microscopic observation Gram stain Nom (Unsp spec) [facility] Work Phone: Influenza virus A and B and SARS-CoV-2 (COVID-19) Ag panel - Upper respiratory specim SARS-CoV-2 (COVID-19) RNA JELENA+probe Ql (Resp) [facility] Work Phone: Microbial respiratory cultur e Bacteria identified Respiratory culture Nom (Unsp spec) [facility] Work Phone: No Panel Information Streptococcus pneumoniae Antigen (M [facility] Work Phone: Respiratory pathogens DNA an d RNA 12b panel JELENA+probe (Unsp spec) Respiratory Panel (PCR) Influenza A (Sub type H1) [facility] Work Phone: Vital Signs Date Time Vital Sign Value Performing Clinician Facility 06-02-2025 11:05-0400 Body temperature 98 [degF] Dr. Vivi Pike DO Work Phone: 7(923)921-295137 [place] [address] 06-02-2025 11:05-0400 Diastolic blood pressure 78 mm[Hg] Dr. Vivi Pike DO Work Phone: 4(906)792-919637 [place] [address] 06-02-2025 11:05-0400 Heart rate 92 /min Dr. Vivi Pike DO Work Phone: 3(823)388-064737 [place] [address] 06-02-2025 11:05-0400 Respiratory rate 16 /min Dr. Vivi Pike DO Work Phone: 8(775)908-568237 [place] [address] 06-02-2025 11:05-0400 SaO2% (BldA) [Mass fraction] 96 % Dr. Vivi Pike DO Work Phone: 1(744)895-981537 [place] [address] 06-02-2025 11:05-0400 Systolic blood pressure 139 mm[Hg] Dr. Vivi Pike DO Work Phone: 1(098)966-307637 [place] [address] 06-01-2025 13:35-0400 Body height 167.[address] Vivi Pike DO Work Phone: 1(553)140-328737 [place] [address] 06-01-2025 13:35-0400 Body mass index (BMI) [Ratio] 19 kg/m2 Dr. Vivi Pike DO Work Phone: 8(084)798-548111 [place] [address] 06-01-2025 13:35-0400 Body weight 53.[address] Vivi Pike DO Work Phone: 3(951)346-351137 [place] [address] 06-01-2025 11:59-0400 Body temperature 98.2 [degF] Dr. Vivi Pike DO Work Phone: 6(070)184-602337 [place] [address] 06-01-2025 11:59-0400 Diastolic blood pressure 85 mm[Hg] Dr. Vivi Pike DO Work Phone: [facility] 06-01-2025 11:59-0400 Heart rate 80 /min Dr. Vivi Pike DO Work Phone: [facility] 06-01-2025 11:59-0400 Respiratory rate 16 /min Dr. Vivi Pike DO Work Phone: [facility] 06-01-2025 11:59-0400 SaO2% (BldA) [Mass fraction] 98 % Dr. Vivi Pike DO Work Phone: 3(360)010-108111 [place] [address] 06-01-2025 11:59-0400 Systolic blood pressure 156 mm[Hg] Dr. Vivi Pike DO Work Phone: [facility] 06-01-2025 07:22-0400 Body mass index (BMI) [Ratio] 19.5 kg/m2 Dr. Vivi Pike DO Work Phone: [facility] 06-01-2025 07:22-0400 Body weight [address] Vivi Pike DO Work Phone: [facility] 06-01-2025 07:20-0400 Body height 167.[address] Vivi Pike DO Work Phone: [facility] 04-16-2025 09:50-0400 Body mass index (BMI) [Ratio] 21.04 kg/m2 Tigre Restrepo MD Work Phone: [facility] 04-16-2025 09:50-0400 Body weight 55.6 kg Tigre Restrepo MD Work Phone: [facility] 04-16-2025 09:50-0400 Diastolic blood pressure 72 mm[Hg] Tigre Restrepo MD Work Phone: [facility] 04-16-2025 09:50-0400 Heart rate 72 /min Tigre Restrepo MD Work Phone: [facility] 04-16-2025 09:50-0400 SaO2% (BldA) [Mass fraction] 96 % Tigre Restrepo MD Work Phone: [facility] 04-16-2025 09:50-0400 Systolic blood pressure 128 mm[Hg] Tigre Restrepo MD Work Phone: [facility] 12-02-2024 16:21-0400 Body temperature 97.7 [degF] Dr. Todd Valdovinos DO Work Phone: [facility] 12-02-2024 16:21-0400 Diastolic blood pressure 77 mm[Hg] Dr. Todd Valdovinos DO Work Phone: [facility] 12-02-2024 16:21-0400 Heart rate 95 /min Dr. Todd Valdovinos DO Work Phone: [facility] 12-02-2024 16:21-0400 Respiratory rate 18 /min Dr. Todd Valdovinos DO Work Phone: [facility] 12-02-2024 16:21-0400 SaO2% (BldA) [Mass fraction] 94 % Dr. Todd Valdovinos DO Work Phone: [facility] 12-02-2024 16:21-0400 Systolic blood pressure 143 mm[Hg] Dr. Todd Valdovinos DO Work Phone: [facility] 12-02-2024 10:45-0400 Body height 167.[address] Todd Valdovinos DO Work Phone: [facility] 12-02-2024 10:45-0400 Body weight 56.[address] Todd Valdovinos DO Work Phone: [facility] 12-01-2024 11:55-0400 Inhaled oxygen flow rate 2 L/min Dr. Todd Valdovinos DO Work Phone: [facility] 12-01-2024 09:18-0400 Body mass index (BMI) [Ratio] 20 kg/m2 Dr. Todd Valdovinos DO Work Phone: [facility] 12-01-2024 09:00-0400 Body temperature 98.4 [degF] Dr. Jr Ryan DO Work Phone: [facility] 12-01-2024 09:00-0400 Diastolic blood pressure 76 mm[Hg] Dr. Jr Ryan DO Work Phone: [facility] 12-01-2024 09:00-0400 Heart rate 83 /min Dr. Jr Ryan DO Work Phone: [facility] 12-01-2024 09:00-0400 Inhaled oxygen flow rate 1 L/min Dr. Jr Ryan DO Work Phone: [facility] 12-01-2024 09:00-0400 Respiratory rate 18 /min Dr. rJ Ryan DO Work Phone: [facility] 12-01-2024 09:00-0400 SaO2% (BldA) [Mass fraction] 96 % Dr. Jr Ryan DO Work Phone: [facility] 12-01-2024 09:00-0400 Systolic blood pressure 129 mm[Hg] Dr. Jr Ryan DO Work Phone: [facility] 12-01-2024 06:21-0400 Body height 167.[address] Jr Ryan DO Work Phone: [facility] 12-01-2024 06:21-0400 Body mass index (BMI) [Ratio] 20.2 kg/m2 Dr. Jr Ryan DO Work Phone: [facility] 12-01-2024 06:21-0400 Body weight 57.[address] Jr Ryan DO Work Phone: [facility] 10-16-2024 08:50-0500 Body height 162.6 cm Tigre Restrepo MD Work Phone: [facility] 10-16-2024 08:50-0500 Body mass index (BMI) [Ratio] 22.48 kg/m2 Tigre Restrepo MD Work Phone: [facility] 10-16-2024 08:50-0500 Body weight 59.4 kg Tigre Restrepo MD Work Phone: [facility] 10-16-2024 08:50-0500 Diastolic blood pressure 76 mm[Hg] Tigre Restrepo MD Work Phone: [facility] 10-16-2024 08:50-0500 Heart rate 79 /min Tigre Restrepo MD Work Phone: [facility] 10-16-2024 08:50-0500 SaO2% (BldA) [Mass fraction] 94 % Tigre Restrepo MD Work Phone: [facility] 10-16-2024 08:50-0500 Systolic blood pressure 153 mm[Hg] Tigre Restrepo MD Work Phone: [facility] 05-22-2024 08:14-0400 Body height 162.6 cm Claire Turner MD Work Phone: [facility] 05-22-2024 08:14-0400 Body mass index (BMI) [Ratio] 21.95 kg/m2 Claire Turner MD Work Phone: [facility] 05-22-2024 08:14-0400 Body weight 58 kg Claire Turner MD Work Phone: [facility] 05-22-2024 08:14-0400 Diastolic blood pressure 70 mm[Hg] Claire Turner MD Work Phone: [facility] 05-22-2024 08:14-0400 Heart rate 69 /min Claire Truner MD Work Phone: [facility] 05-22-2024 08:14-0400 SaO2% (BldA) [Mass fraction] 95 % Claire Turner MD Work Phone: [facility] 05-22-2024 08:14-0400 Systolic blood pressure 136 mm[Hg] Claire Turner MD Work Phone: [facility] 05-15-2024 10:51-0400 Body mass index (BMI) [Ratio] 20.56 kg/m2 Mehreen Crow MD Work Phone: [facility] 05-15-2024 10:51-0400 Body temperature 97.2 [degF] Mehreen Crow MD Work Phone: [facility] 05-15-2024 10:51-0400 Body weight 55.9 kg Mehreen Crow MD Work Phone: [facility] 05-15-2024 10:51-0400 Diastolic blood pressure 78 mm[Hg] Mehreen Crow MD Work Phone: [facility] 05-15-2024 10:51-0400 Heart rate 51 /min Mehreen Crow MD Work Phone: [facility] Comment on above: Took anxiety tablet this morning 05-15-2024 10:51-0400 Respiratory rate 16 /min Mehreen Crow MD Work Phone: [facility] 05-15-2024 10:51-0400 SaO2% (BldA) [Mass fraction] 96 % Mehreen Crow MD Work Phone: [facility] 05-15-2024 10:51-0400 Systolic blood pressure 150 mm[Hg] Mehreen Crow MD Work Phone: [facility] 03-24-2024 11:16-0400 Body height 164.9 cm Tigre Restrepo MD Work Phone: [facility] 03-24-2024 11:16-0400 Body mass index (BMI) [Ratio] 20.56 kg/m2 Tigre Restrepo MD Work Phone: [facility] 03-24-2024 11:16-0400 Body weight 55.9 kg Tigre Restrepo MD Work Phone: [facility] 03-24-2024 11:16-0400 Diastolic blood pressure 77 mm[Hg] Tigre Restrepo MD Work Phone: [facility] 03-24-2024 11:16-0400 Heart rate 66 /min Tigre Restrepo MD Work Phone: [facility] 03-24-2024 11:16-0400 SaO2% (BldA) [Mass fraction] 97 % Tigre Restrepo MD Work Phone: [facility] 03-24-2024 11:16-0400 Systolic blood pressure 150 mm[Hg] Tigre Restrepo MD Work Phone: [facility] 12-20-2023 13:37-0400 Inhaled oxygen flow rate 2 L/min Dr. Jr Ryan Work Phone: [facility] 12-20-2023 12:11-0400 Body temperature 100 [degF] Dr. Jr Ryan Work Phone: [facility] 12-20-2023 12:11-0400 Diastolic blood pressure 93 mm[Hg] Dr. Jr Ryan Work Phone: [facility] 12-20-2023 12:11-0400 Heart rate 86 /min Dr. Jr Ryan Work Phone: [facility] 12-20-2023 12:11-0400 Respiratory rate 16 /min Dr. Jr Ryan Work Phone: [facility] 12-20-2023 12:11-0400 SaO2% (BldA) [Mass fraction] 96 % Dr. Jr Ryna Work Phone: [facility] 12-20-2023 12:11-0400 Systolic blood pressure 157 mm[Hg] Dr. Jr Ryan Work Phone: [facility] 12-18-2023 14:53-0400 Body height 167.[address] Jr Ryan Work Phone: [facility] 12-18-2023 14:53-0400 Body weight 56.[address] Jr Ryan Work Phone: [facility] 12-17-2023 16:02-0400 Body mass index (BMI) [Ratio] 20 kg/m2 Dr. Jr Ryan Work Phone: 5(553)875-120922 [address] 12-17-2023 15:33-0400 Body temperature 98.7 [degF] Dr. Jr Ryan Work Phone: 6(267)029-392742 [place] [address] 12-17-2023 15:33-0400 Diastolic blood pressure 91 mm[Hg] Dr. Jr Ryan Work Phone: 8(939)806-062822 [address] 12-17-2023 15:33-0400 Heart rate 101 /min Dr. Jr Ryan Work Phone: 1(747)688-029242 [place] [address] 12-17-2023 15:33-0400 Respiratory rate 23 /min Dr. Jr Ryan Work Phone: 6(234)451-662842 [place] [address] 12-17-2023 15:33-0400 SaO2% (BldA) [Mass fraction] 97 % Dr. Jr Ryan Work Phone: 5(551)999-828842 [place] [address] 12-17-2023 15:33-0400 Systolic blood pressure 157 mm[Hg] Dr. Jr Ryan Work Phone: 3(347)487-419442 [place] [address] 12-17-2023 15:00-0400 Inhaled oxygen flow rate 3 L/min Dr. Jr Ryan Work Phone: 2(693)975-554042 [place] [address] 12-17-2023 13:26-0400 Body height 167.[address] Jr Ryan Work Phone: 8(054)770-811142 [place] [address] 12-17-2023 13:26-0400 Body mass index (BMI) [Ratio] 20.6 kg/m2 Dr. Jr Ryan Work Phone: 8(727)813-953522 [address] 12-17-2023 13:26-0400 Body weight [address] Jr Ryan Work Phone: 1(731)390-114642 [place] [address] 12-11-2023 11:51-0400 Body temperature 97.6 [degF] [facility] 12-11-2023 11:51-0400 Diastolic blood pressure 78 mm[Hg] [facility] 12-11-2023 11:51-0400 Heart rate 89 /min [facility] 12-11-2023 11:51-0400 Respiratory rate 18 /min [facility] 12-11-2023 11:51-0400 SaO2% (BldA) [Mass fraction] 98 % [facility] 12-11-2023 11:51-0400 Systolic blood pressure 134 mm[Hg] [facility] 12-11-2023 09:04-0400 Body height 167.64 cm [facility] 12-11-2023 09:04-0400 Body mass index (BMI) [Ratio] 21.9 kg/m2 [facility] 12-11-2023 09:04-0400 Body weight 61.64 kg [facility] 10-29-2023 09:33-0500 Body temperature 98.1 [degF] [facility] 10-29-2023 09:33-0500 Diastolic blood pressure 79 mm[Hg] [facility] 10-29-2023 09:33-0500 Heart rate 73 /min [facility] 10-29-2023 09:33-0500 Respiratory rate 23 /min [facility] 10-29-2023 09:33-0500 SaO2% (BldA) [Mass fraction] 93 % [facility] 10-29-2023 09:33-0500 Systolic blood pressure 115 mm[Hg] [facility] 10-29-2023 06:51-0500 Body height 167.64 cm [facility] 10-29-2023 06:51-0500 Body mass index (BMI) [Ratio] 21.9 kg/m2 [facility] 10-29-2023 06:51-0500 Body weight 61.5 kg [facility] 07-09-2023 11:16-0500 Diastolic blood pressure 60 mm[Hg] [facility] 07-09-2023 11:16-0500 SaO2% (BldA) [Mass fraction] 96 % [facility] 07-09-2023 11:16-0500 Systolic blood pressure 113 mm[Hg] [facility] 07-09-2023 10:00-0500 Heart rate 70 /min [facility] 07-09-2023 10:00-0500 Respiratory rate 18 /min [facility] 07-09-2023 07:01-0500 Body height 167.64 cm [facility] 07-09-2023 07:01-0500 Body mass index (BMI) [Ratio] 23.2 kg/m2 [facility] 07-09-2023 07:01-0500 Body temperature 98.9 [degF] [facility] 07-09-2023 07:01-0500 Body weight 65.3 kg [facility] 08-30-2022 15:41-0500 Body temperature 98 [degF] Dr. Jr Ryan Work Phone: [facility] Work Phone: 08-30-2022 15:41-0500 Diastolic blood pressure 88 mm[Hg] Dr. Jr Ryan Work Phone: [facility] Work Phone: 08-30-2022 15:41-0500 Heart rate 86 /min Dr. Jr Ryan Work Phone: [facility] Work Phone: 08-30-2022 15:41-0500 Respiratory rate 20 /min Dr. Jr Ryan Work Phone: [facility] Work Phone: 08-30-2022 15:41-0500 SaO2% (BldA) [Mass fraction] 92 % Dr. Jr Ryan Work Phone: [facility] Work Phone: 08-30-2022 15:41-0500 Systolic blood pressure 149 mm[Hg] Dr. Jr Ryan Work Phone: [facility] Work Phone: 08-30-2022 13:56-0500 Inhaled oxygen flow rate 3 L/min Dr. Jr Ryan Work Phone: [facility] Work Phone: 08-30-2022 09:14-0500 Body weight 62.[address] Jr Ryan Work Phone: [facility] Work Phone: 08-28-2022 11:55-0500 Body height 167.[address] Jr Ryan Work Phone: [facility] Work Phone: 08-26-2022 13:51-0500 Body mass index (BMI) [Ratio] 22.8 kg/m2 Dr. Jr Ryan Work Phone: [facility] Work Phone: 08-26-2022 13:17-0500 Body temperature 98.3 [degF] Dr. Jr Ryan Work Phone: [facility] Work Phone: 08-26-2022 13:17-0500 Diastolic blood pressure 72 mm[Hg] Dr. Jr Ryan Work Phone: [facility] Work Phone: 08-26-2022 13:17-0500 Heart rate 83 /min Dr. Jr Ryan Work Phone: [facility] Work Phone: 08-26-2022 13:17-0500 Respiratory rate 20 /min Dr. Jr Ryan Work Phone: [facility] Work Phone: 08-26-2022 13:17-0500 SaO2% (BldA) [Mass fraction] 94 % Dr. Jr Ryan Work Phone: [facility] Work Phone: 08-26-2022 13:17-0500 Systolic blood pressure 130 mm[Hg] Dr. Jr Ryan Work Phone: [facility] Work Phone: 08-26-2022 13:00-0500 Inhaled oxygen flow rate 4 L/min Dr. Jr Ryan Work Phone: [facility] Work Phone: 08-26-2022 10:52-0500 Body height 167.[address] Jr Ryan Work Phone: [facility] Work Phone: 08-26-2022 10:52-0500 Body mass index (BMI) [Ratio] 22.8 kg/m2 Dr. Jr Ryan Work Phone: [facility] Work Phone: 08-26-2022 10:52-0500 Body weight 64.[address] Jr Ryan Work Phone: [facility] Work Phone: 08-23-2022 21:00-0500 Heart rate 118 /min Dr. Jr Ryan Work Phone: [facility] Work Phone: 08-23-2022 21:00-0500 Respiratory rate 26 /min Dr. Jr Ryan Work Phone: [facility] Work Phone: 08-23-2022 21:00-0500 SaO2% (BldA) [Mass fraction] 94 % Dr. Jr Ryan Work Phone: [facility] Work Phone: 08-23-2022 20:27-0500 Inhaled oxygen flow rate 4 L/min [facility] Work Phone: 08-23-2022 20:27-0500 SaO2% (BldA) [Mass fraction] 99 % [facility] Work Phone: 08-23-2022 20:26-0500 Body temperature 97.7 [degF] [facility] Work Phone: 08-23-2022 20:26-0500 Diastolic blood pressure 83 mm[Hg] [facility] Work Phone: 08-23-2022 20:26-0500 Heart rate 103 /min [facility] Work Phone: 08-23-2022 20:26-0500 Respiratory rate 22 /min [facility] Work Phone: 08-23-2022 20:26-0500 Systolic blood pressure 148 mm[Hg] [facility] Work Phone: 08-23-2022 18:25-0500 Body height 167.64 cm [facility] Work Phone: 08-23-2022 18:25-0500 Body mass index (BMI) [Ratio] 22.8 kg/m2 [facility] Work Phone: 08-23-2022 18:25-0500 Body weight 64.41 kg [facility] Work Phone: 08-23-2022 11:43-0500 Body temperature 98.06 [degF] ARCHANA CALLEJAS MD [facility] 08-23-2022 11:43-0500 Body weight 65.3 kg ARCHANA CALLEJAS MD [facility] 08-23-2022 11:43-0500 Diastolic Blood Pressure Non-Invasive 93 1 ARCHANA CALLEJAS MD [facility] 08-23-2022 11:43-0500 Heart rate 102 /min ARCHANA CALLEJAS MD [facility] 08-23-2022 11:43-0500 Respiratory rate 18 /min ARCHANA CALLEJAS MD [facility] 08-23-2022 11:43-0500 Systolic Blood Pressure Non-Invasive 176 1 ARCHANA CALLEJAS MD [facility] 06-20-2021 14:02-0400 Body temperature 97.16 [degF] JAYMIE SUERO DO [facility] 06-20-2021 14:02-0400 Diastolic blood pressure 62 mm[Hg] JAYMIE SUERO DO [facility] 06-20-2021 14:02-0400 Heart rate 74 /min JAYMIE SUERO [employer] [address] [facility] 06-20-2021 14:02-0400 Respiratory rate 22 /min JAYMIE SUERO [employer] [address] [facility] 06-20-2021 14:02-0400 Systolic blood pressure 154 mm[Hg] JAYMIE SUERO [employer] [address] [facility] 06-20-2021 11:40-0400 Body temperature 100.04 [degF] JAYMIE SUERO [employer] [address] [facility] 06-20-2021 11:40-0400 Diastolic blood pressure 90 mm[Hg] JAYMIE SUERO [employer] [address] [facility] 06-20-2021 11:40-0400 Heart rate 87 /min JAYMIE SUERO [employer] [address] [facility] 06-20-2021 11:40-0400 Respiratory rate 24 /min JAYMIE SUERO [employer] [address] [facility] 06-20-2021 11:40-0400 Systolic blood pressure 162 mm[Hg] JAYMIE SUERO [employer] [address] [facility] Encounters Encounter Date Encounter Type Care Provider Facility Start: 06-02-2025 Non-patient / Non-visit Dr. Karen Le DO [facility] Work Phone: Start: 06-01-2025 ambulatory Karen Le Facility:[facility] Start: 06-01-2025 End: 06-02-2025 Evaluation and management of inpatient Dr. Karen Le DO -[facility] 3 Work Phone: Start: 04-16-2025 End: 04-16-2025 Patient encounter procedure Tigre Restrepo MD Work Phone: Pulmonary Medicine Comment on above: Lung nodules (Primar y Dx); Invasive pulmonary aspergillosis (HCC); Former smoker; Cavitary lesion of lung; Stage 4 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 (HCC); Allergy to environmental factors Start: 04-16-2025 End: 04-16-2025 ambulatory TIGRE RESTREPO Facility:[facility] Start: 04-16-2025 End: 04-16-2025 Subsequent hospital visit by physician Ct [facility] Radiology Comment on above: Lung mass [R91.8] Start: 12-02-2024 Non-patient / Non-visit Dr. Bradley [facility]OHNS [facility] Start: 12-02-2024 Non-patient / Non-visit Dr. Anirudh dupree [facility] Work Phone: Start: 12-01-2024 End: 12-01-2024 ambulatory Anirudh Thompson Facility:[facility] Start: 12-01-2024 Non-patient / Non-visit Dr. Anirudh dupree [facility] Work Phone: Start: 12-01-2024 ambulatory Anirudh Thompson Facility:[facility] Start: 12-01-2024 End: 12-02-2024 Evaluation and management of inpatient Dr. Anirudh Thompson [facility] Work Phone: Start: 10-26-2024 End: [...] Start: 10-16-2024 End: 10-16-2024 ambulatory TIGRE RESTREPO Facility:[facility] Start: 10-16-2024 End: 10-16-2024 Subsequent hospital visit by physician Ct [facility] Radiology Comment on above: Pneumonia of both braydon ngs due to Pseudomonas species, unspecified part of lung (HCC) [J15.1] Start: 10-09-2024 End: 10-09-2024 Telephone encounter Tigre Restrepo MD Work Phone: Pulmonary Medicine Comment on above: Patient Request (Lana marvin) Start: 07-07-2024 ambulatory Jr [facility] Facility:[facility] Start: 07-01-2024 End: 07-01-2024 Telephone encounter Tigre Restrepo MD Work Phone: Pulmonary Medicine Start: 06-24-2024 ambulatory Jr [facility] Facility:[facility] Start: 06-09-2024 End: 06-09-2024 Telephone encounter Claire Turner MD Work Phone: Cardiology Start: 06-05-2024 ambulatory CLAIRE TURNER [facility] ity:[facility] Start: 06-05-2024 End: 06-05-2024 Subsequent hospital visit by physician Echo [facility] Work Phone: Cardiology Lab Comment on above: Murmur [R01.1] Start: 06-01-2024 End: 06-01-2024 Refill Tigre Restrepo MD Work Phone: Pulmonary Medicine Comment on above: Refill Request Start: 05-28-2024 End: 05-28-2024 Telephone encounter Tigre Restrepo MD Work Phone: [place] [facility] Adult Comment on above: Results Start: 05-27-2024 End: 05-28-2024 Telephone encounter Tigre Restrepo MD Work Phone: [place] [facility] Adult Start: 05-25-2024 End: 05-26-2024 Telephone [...] severe COPD by GOLD classification ([facility]) Start: 05-14-2024 End: 05-14-2024 Orders Only [...] encounter Tigre Restrepo MD Work Phone: [facility] [place] Comment on above: Appointment (Schedul e biopsy ) Appointment Start: 04-28-2024 End: 04-29-2024 Telephone encounter Tigre Restrepo MD Work Phone: Pulmonary Medicine Comment on above: Cardiac Clearance Start: 04-21-2024 End: 04-21-2024 Patient encounter procedure Sahara Weldon MD Work Phone: Pulmonary Medicine Start: 04-21-2024 End: 04-21-2024 Telephone encounter Tigre Restrepo MD Work Phone: [place] Provider Adult Comment on above: Appointment Start: 04-21-2024 ambulatory TIRGE RESTREPO Facili ty:[facility] Start: 04-21-2024 End: 04-21-2024 Subsequent hospital visit by physician Injection [facility] [place] [facility] Comment on above: Lung nodules [R91.8] Start: 04-10-2024 Telephone encounter Tigre Restrepo MD Work Phone: Pulmonary Medicine Start: 03-27-2024 Telephone encounter Tigre Restrepo MD Work Phone: Pulmonary Medicine Start: 03-27-2024 End: 03-27-2024 Subsequent hospital visit by physician Ct [facility] Work Phone: Cat Scan Comment on above: Chest pain, unspecif ied type [R07.9] Start: 03-26-2024 Telephone encounter Tigre Restrepo MD Work Phone: Pulmonary Medicine Start: 03-25-2024 Telephone encounter Tigre Restrepo MD Work Phone: Pulmonary Medicine Comment on above: Received Outside [facility] Records ([facility]) Patient Update Start: 03-25-2024 End: 03-25-2024 Subsequent hospital visit by physician Ct [facility] Work Phone: Cat Scan Start: 03-24-2024 End: 03-24-2024 Subsequent hospital visit by physician [facility] Work Phone: Radiology Comment on above: Pulmonary emphysema, unspecified emphysema type (HCC) [J43.9] Start: 03-24-2024 End: 03-24-2024 ambulatory Pulm Work Phone: Pulmonary Medicine Comment on above: Spirometry Start: 03-24-2024 End: 03-24-2024 Patient encounter procedure Pulm Fct Lab [facility] Work Phone: Pulmonary Medicine Comment on above: Lung nodules (Primar y Dx); Centrilobular emphysema (HCC); Chest pain on breathing; Cavitary lesion of lung; Allergy to environmental factors; Ex-smoker Start: 03-04-2024 Telephone encounter [facility] Provider Pul monary Medicine Comment on above: Referral Request Start: 12-20-2023 Non-patient / Non-visit Dr. Christi Ryan Work Phone: [facility] Work Phone: Start: 12-19-2023 Non-patient / Non-visit Dr. Christi Ryan Work Phone: [facility] Work Phone: Start: 12-18-2023 Non-patient / Non-visit Dr. Christi Ryan Work Phone: [facility] Work Phone: Start: 12-17-2023 Non-patient / Non-visit Dr. Christi Ryan Work Phone: [facility] Work Phone: Start: 12-17-2023 End: 12-20-2023 Evaluation and management of inpatient Dr. Jr Ryan Work Phone: [facility] 3 Work Phone: Start: 12-15-2023 End: 12-15-2023 Emergency department patient visit JR RYAN Facility:[id number] Start: 12-11-2023 End: 12-11-2023 Emergency department patient visit [facility] Work Phone: Start: 10-29-2023 End: 10-29-2023 Emergency department patient visit [facility] Work Phone: Start: 07-09-2023 End: 07-09-2023 Emergency department patient visit [facility] Work Phone: Start: 01-22-2023 End: 01-22-2023 ambulatory [facility] Work Phone: Start: 01-22-2023 End: 01-22-2023 Patient encounter procedure [facility]Cat [facility], [facility] Work Phone: Start: 08-30-2022 Non-patient / Non-visit Dr. Christi Ryan Work Phone: [facility] Start: 08-29-2022 Non-patient / Non-visit Dr. Christi Ryan Work Phone: [facility] Start: 08-28-2022 Non-patient / Non-visit Dr. Christi Ryan Work Phone: [facility] Start: 08-27-2022 Non-patient / Non-visit Dr. Christi Ryan Work Phone: [facility] Start: 08-26-2022 Non-patient / Non-visit Dr. Christi Ryan Work Phone: [facility] Start: 08-26-2022 End: 08-30-2022 Evaluation and management of inpatient Dr. Jr Ryan Work Phone: [facility] 3 Start: 08-23-2022 End: 08-23-2022 Emergency department patient visit [facility] Start: 08-23-2022 End: 08-23-2022 Emergency department patient visit RADHA STAHL MD Facility:[facility] Start: 08-23-2022 End: 08-23-2022 Emergency department patient visit ARCHANA CALLEJAS MD [facility] Start: 07-13-2022 End: 07-13-2022 ambulatory [facility] Work Phone: Start: 07-13-2022 End: 07-13-2022 Patient encounter procedure [facility], [facility] Start: 06-20-2021 End: 06-20-2021 Emergency department patient visit JAYMIE SUERO DO [facility] Start: 11-18-2020 End: 11-18-2020 Patient encounter procedure SAHARA JAY [facility] Procedures Date Procedure Procedure Detail Performing Clinician [...] Author Start: 03-11-2027 Diabetes Screening Diabetes Screen[facility] Start: 12-13-2026 Diabetes Screening Diabetes Screenin [facility] Start: 04-16-2026 End: 05-16-2026 CT Chest WO contrast CT CHEST WO IVCON Radiology Routine Lung nodules Expected: 04/16/2026, Expires: 05/16/2026 [facility] Work Phone: Comment on above: Expected: 04/16/2026 , Expires: 05/16/2026 Start: 08-13-2025 End: 08-13-2025 Patient encounter procedure 08/13/2025 9:00 AM EST Office Visit Cardiology [address] [address] Claire Turner MD [address] [place] [address] Was told he had a blockage on cath in [facility]. Also had cMRI in [place] which was concerning. Cardiology Comment on above: Was told he had a bl ockage on cath in [facility]. Also had cMRI in [place] which was concerning. Start: 06-02-2025 Patient discharge [facility] Start: 06-01-2025 End: 06-01-2025 Following clinical pathway protocol [facility] Start: 06-01-2025 Assessment of risk o f venous thromboembolism [facility] Start: 06-01-2025 Catheterization of vein [facility] Start: 06-01-2025 Incentive spirometry [facility] Start: 06-01-2025 Insertion of cathete r into peripheral vein [facility] Start: 06-01-2025 Physiotherapy of chest [facility] Start: 06-01-2025 Providing care accor ding to standard [facility] Start: 06-01-2025 Provision of activit y privileges [facility] Start: 06-01-2025 Referral for physica l therapy [facility] Start: 06-01-2025 Referral to occupati onal therapist [facility] Start: 06-01-2025 Referral to service [facility] Start: 06-01-2025 [facility] Start: 06-01-2025 Respiratory pathogen s DNA and RNA panel - Respiratory specimen by JELENA with probe detection [facility] Start: 06-01-2025 Verification routine [facility] Start: 06-01-2025 Admission procedure [facility] Start: 06-01-2025 Hospital admission, emergency, from emergency room, medical nature [facility] Start: 06-01-2025 [facility] Start: 04-26-2025 Influenza vaccination Influenza Vacc ine (#1) [facility] Start: 04-16-2025 End: 04-16-2025 Patient encounter procedure Radiology Comment on above: CT COPD Start: 04-15-2025 End: 11-15-2025 CT Chest WO contrast CT CHEST WO IVCON Radiology Routine Lung mass Expected: 04/15/2025, Expires: 11/15/2025 [facility] Work Phone: Comment on above: Expected: 04/15/2025 , Expires: 11/15/2025 Start: 12-02-2024 Patient discharge [facility] Start: 12-01-2024 Oxygen therapy [facility] Start: 12-01-2024 Respiratory Culture Respiratory Cult ure [facility] Start: 12-01-2024 Following clinical p athway protocol [facility] Start: 12-01-2024 Ambulation without limitation [facility] Start: 12-01-2024 Assessment of risk o f venous thromboembolism [facility] Start: 12-01-2024 Elevation of head of bed [facility] Start: 12-01-2024 Insertion of cathete r into peripheral vein [facility] Start: 12-01-2024 Measuring intake and output [facility] Start: 12-01-2024 Notification of physician [facility] Start: 12-01-2024 Patient education [facility] Start: 12-01-2024 Physiotherapy of chest [facility] Start: 12-01-2024 Providing care accor ding to standard [facility] Start: 12-01-2024 [facility] Start: 12-01-2024 Bacteria identified in Sputum by Culture [facility] Start: 12-01-2024 Legionella pneumophi la Ag [Presence] in Urine [facility] Start: 12-01-2024 Streptococcus pneumo niae antigen assay [facility] Start: 12-01-2024 Verification routine [facility] Start: 12-01-2024 Admission procedure [facility] Start: 12-01-2024 End: 12-01-2024 Hospital admission, emergency, from emergency room, medical nature [facility] Start: 12-01-2024 Inhalation therapy procedure [facility] Start: 12-01-2024 [facility] Start: 10-16-2024 End: 01-15-2025 Basic metabolic 2000 panel - Serum or Plasma BASIC METABOLIC PANEL Lab Routine Lung mass Expected: 10/16/2024, Expires: 01/15/2025 [facility] Comment on above: Expected: 10/16/2024 , Expires: 01/15/2025 Start: 10-16-2024 End: 01-15-2025 CBC panel - Blood by Automated count COMPLETE BLOOD COUNT Lab Routine Lung mass Expected: 10/16/2024, Expires: 01/15/2025 [facility] Comment on above: Expected: 10/16/2024 , Expires: 01/15/2025 Start: 10-16-2024 End: 10-16-2024 Patient encounter procedure Radiology Comment on above: Pneumonia of both braydon ngs due to Pseudomonas species, unspecified part of lung (HC... COPD Start: 08-26-2024 Advance Directive Discussion Advance Directive Discussion [facility] Start: 06-05-2024 End: 06-05-2024 Patient encounter procedure 06/05/2024 9:00 AM EDT Appointment Cardiology Lab [address] [place] [address] Murmur [R01.1] Cardiology Lab Comment on above: Murmur [R01.1] Start: 05-25-2024 End: 05-25-2024 Admission to same day surgery center 05/25/2024 9:30 AM EDT - 05/25/2024 11:30 AM EDT Surgery Admitting [address] [address] Mehreen Crow MD [address] [place] [address] BRONCHOSCOPY FLEXIBLE ADULT Admitting Comment on above: BRONCHOSCOPY FLEXIBL E ADULT Start: 05-25-2024 End: 05-25-2024 [facility] incl fluor gdnce dx w/cell washg spx BRONCHOSCOPY FLEXIBLE ADULT Bronchiolar disease 05/25/2024 9:30 AM EDT PULM LAB [facility] Start: 05-25-2024 Subsequent hospital visit by physician 05/25/2024 9:30 AM EDT Hospital Encounter Admitting [address] [address] Mehreen Crow MD [address] [place] [address] Bronchiolar disease [J98.09] Admitting Comment on above: Bronchiolar disease [J98.09] Start: 05-22-2024 End: 05-22-2025 Echocardiography ECHO Cardiology Routine Murmur Expected: 05/22/2024, Expires: 05/22/2025 [facility] Work Phone: Comment on above: Expected: 05/22/2024 , Expires: 05/22/2025 Start: 05-22-2024 End: 05-22-2024 Patient encounter procedure 05/22/2024 8:00 AM EDT Office Visit Cardiology [address] [id number] Claire Turner MD [address] [place], [place] [id number] Was told he had a blockage on cath in [facility]. Also had cMRI in [place] which was concerning. Cardiology Comment on above: Was told he had a bl ockage on cath in [facility]. Also had cMRI in [place] which was concerning. Start: 05-15-2024 End: 05-15-2024 Patient encounter procedure Pulmonary Medicine Comment on above: Established Visit Pre Op Testing Start: 04-26-2024 Covid-19 Vaccine ( season) Covid-19 Vaccine ( season) [facility] Start: 04-26-2024 Covid-19 Vaccine ( season) Covid-19 Vaccine ( season) [facility] Start: 04-26-2024 Influenza vaccination Influenza Vacc ine (#1) [facility] Start: 04-24-2024 Lipid panel Lipid Screening [facility] Start: 03-27-2024 End: 03-27-2024 Patient encounter procedure 03/27/2024 9:40 AM EDT Appointment Cat Scan [address] [place] [id number] CCN was accepted, Cat Scan Comment on above: CCN was accepted, Start: 03-25-2024 End: 03-25-2024 Patient encounter procedure 03/25/2024 8:40 AM EDT Appointment Cat Scan [address] [place] [id number] Chest pain on breathing [R07.1] Cat Scan Comment on above: Chest pain on breath ing [R07.1] Start: 03-24-2024 End: 06-23-2024 Alpha 1 antitrypsin [Mass/volume] in Serum or Plasma [id number] Lab Routine Centrilobular emphysema (HCC) Expected: 03/24/2024, Expires: 06/23/2024 [facility] Comment on above: Expected: 03/24/2024 , Expires: 06/23/2024 Start: 03-24-2024 End: 06-23-2024 CREATININE BLD CREATININE BLD Lab Routine Lung nodules Expected: 03/24/2024, Expires: 06/23/2024 [facility] Comment on above: Expected: 03/24/2024 , Expires: 06/23/2024 Start: 03-24-2024 End: 03-24-2024 Patient encounter procedure Radiology Comment on above: Pulmonary emphysema, unspecified emphysema type (HCC) [J43.9] Provider: Any Staff Assignment Desk Assistant Start: 03-24-2024 End: 03-24-2024 ambulatory Pulmonary Medicine Comment on above: Provider: Any Staff Assignment Desk Assistant Start: 12-20-2023 Patient discharge [facility] Start: 12-19-2023 Physiotherapy of chest [facility] Start: 12-17-2023 Oxygen therapy [facility] Start: 12-17-2023 Ambulation without limitation [facility] Start: 12-17-2023 Assessment of risk o f venous thromboembolism [facility] Start: 12-17-2023 Inhalation therapy procedure [facility] Start: 12-17-2023 Insertion of cathete r into peripheral vein [facility] Start: 12-17-2023 Providing care accor ding to standard [facility] Start: 12-17-2023 Respiratory secretio n precautions [facility] Start: 12-17-2023 Following clinical p athway protocol [facility] Start: 12-17-2023 Legionella pneumophi la Ag [Presence] in Urine [facility] Start: 12-17-2023 Streptococcus pneumo niae antigen assay [facility] Start: 12-17-2023 End: 12-17-2023 [facility] Start: 12-17-2023 Hospital admission, emergency, from emergency room, medical nature [facility] Start: 12-17-2023 Admission procedure [facility] Start: 12-17-2023 End: 12-17-2023 Blood culture [facility] Start: 12-17-2023 Bacteria identified in Blood by Culture Blood Culture [facility] Start: 12-17-2023 Bacteria identified in Urine by Culture [facility] Start: 12-17-2023 Microscopic observat ion [Identifier] in Unspecified specimen by Gram stain [facility] Start: 12-17-2023 Respiratory Culture Respiratory Cult ure [facility] Start: 12-17-2023 Respiratory microbia l culture Respiratory Culture [facility] Start: 12-17-2023 [facility] Start: 12-17-2023 Patient referral to dietitian [facility] Start: 12-17-2023 [facility] Start: 12-11-2023 [facility] Start: 12-11-2023 [facility] Start: 10-29-2023 [facility] Start: 10-29-2023 [facility] Start: 08-26-2023 Advance Directive Discussion Advance Directive Discussion [facility] Start: 08-26-2023 Behavioral Health Screening Behavioral Health Screening [facility] Start: 07-09-2023 [facility] Start: 04-26-2023 Covid-19 Vaccine ( season) Covid-19 Vaccine () [facility] Start: 08-30-2022 Patient discharge [facility] Work Phone: Start: 08-27-2022 Inhalation therapy procedure [facility] Work Phone: Start: 08-26-2022 Dual pressure sponta neous ventilation support [facility] Work Phone: Start: 08-26-2022 Respiratory secretio n precautions [facility] Work Phone: Start: 08-26-2022 Assessment of risk o f venous thromboembolism [facility] Work Phone: Start: 08-26-2022 Elevation of head of bed [facility] Work Phone: Start: 08-26-2022 Incentive spirometry [facility] Work Phone: Start: 08-26-2022 Insertion of cathete r into peripheral vein [facility] Work Phone: Start: 08-26-2022 Oxygen therapy [facility] Work Phone: Start: 08-26-2022 Patient education [facility] Work Phone: Start: 08-26-2022 Physiotherapy of chest [facility] Work Phone: Start: 08-26-2022 Providing care accor ding to standard [facility] Work Phone: Start: 08-26-2022 Provision of activit y privileges [facility] Work Phone: Start: 08-26-2022 Referral to occupati onal therapist [facility] Work Phone: Start: 08-26-2022 Referral to service [facility] Work Phone: Start: 08-26-2022 [facility] Work Phone: Start: 08-26-2022 Following clinical p athway protocol [facility] Work Phone: Start: 08-26-2022 Legionella pneumophi la Ag [Presence] in Urine [facility] Work Phone: Start: 08-26-2022 Streptococcus pneumo niae antigen assay [facility] Work Phone: Start: 08-26-2022 Verification routine [facility] Work Phone: Start: 08-26-2022 Admission procedure [facility] Work Phone: Start: 08-26-2022 [facility] Work Phone: Start: 08-26-2022 Blood culture [facility] Work Phone: Start: 08-26-2022 End: 08-27-2022 [facility] Work Phone: Start: 08-23-2022 [facility] Work Phone: Start: 06-17-2021 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 PCP Team Power Press Operator ruba Disease Visit Annual PCP Team Chronic Disease Visit [facility] Start: 01-10-2019 Screening for malign ant neoplasm of colon [facility] Start: 01-01-2016 Pneumococcal Vaccine : 65+ (1 of 1 - PCV) Pneumococcal Vaccine: 65+ (1 of 1 - PCV) [facility] Start: 2010 RSV Vaccine (1 - 1-d ose 60+ series) RSV Vaccine (1 - 1-dose 60+ series) [facility] Start: 2010 RSV Vaccine (1 - Ris k 60-74 years 1-dose series) RSV Vaccine (1 - Risk 60-74 years 1-dose series) [facility] Start: 09-25-2005 Urine microalbumin profile DTa P,Tdap,Td Vaccine (1 - Tdap) [facility] Start: 2000 Shingrix Vaccine (1 of 2) Odom grix Vaccine (1 of 2) [facility] Start: 01-01-1996 Screening for malign ant neoplasm of colon [facility] Start: 1980 Zoledronic acid therapy Alpha- 1 Antitrypsin Deficiency Screening [facility] Start: 1969 Pneumococcal Vaccine : 50+ (1 of 2 - PCV) Pneumococcal Vaccine: 50+ (1 of 2 - PCV) [facility] Start: 1968 Anxiety Screening Anxiety Screening [facility] Start: 1968 BP Controlled (<130/80) BP Controlle d (<130/80) [facility] Start: 1968 Depression Screening Depression Scre ening [facility] Start: 1968 Spirometry Spirometry [facility] Start: 1956 Pneumococcal Vaccine : 65+ (1 of 2 - PCV) Pneumococcal Vaccine: 65+ (1 of 2 - PCV) [facility] Start: 1950 Abdominal aortic ane urysm screening Abdominal Aortic Aneurysm Screening [facility] Bacteria identified in Blood by Culture Blood Culture [facility] Work Phone: Bacteria identified in Sputum by Respiratory culture [facility] Blood culture [facility] Work Phone: End: 04-23-2025 CT Chest WO contrast CT CHEST WO IVCON Radiology Routine Lung nodules 1 Occurrences starting 03/24/2024 until 04/23/2025 [facility] Work Phone: Comment on above: 1 Occurrences starti ng 03/24/2024 until 04/23/2025 End: 06-13-2025 CT Chest WO contrast CT CHEST WO IVCON Radiology Routine Multiple nodules of lung 1 Occurrences starting 05/14/2024 until 06/13/2025 [facility] Work Phone: Comment on above: 1 Occurrences starti ng 05/14/2024 until 06/13/2025 CT Chest WO contrast CT CHEST WO IVCON Radiology Routine Pneumonia of both lungs due to Pseudomonas species, unspecified part of lung (HCC) 10/16/2024 7:11 AM EST [facility] Work Phone: CT Chest WO contrast CT CHEST WO IVCON Radiology Routine Lung mass 04/16/2025 8:58 AM EDT [facility] Work Phone: End: 04-23-2025 CTA Pulmonary arteries for pulmonary embolus W contrast IV CT CHEST W IVCON PE Radiology STAT Chest pain on breathing 1 Occurrences starting 03/24/2024 until 04/23/2025 [facility] Comment on above: 1 Occurrences starti ng 03/24/2024 until 04/23/2025 End: 04-25-2025 CTA Pulmonary arteries for pulmonary embolus W contrast IV CT CHEST W IVCON PE Radiology KERRY Chest pain, unspecified type 1 Occurrences starting 03/26/2024 until 04/25/2025 [facility] Work Phone: Comment on above: 1 Occurrences starti ng 03/26/2024 until 04/25/2025 Microorganism identi fied in Unspecified specimen by Culture [facility] Patient Education [facility] Work Phone: Patient referral [facility] Work Phone: End: 04-26-2025 PET+CT Guidance for localization of tumor of Skull base to mid-thigh-- W 18F-FDG IV NM PET/CT SKULL-THIGH INITIAL Radiology KERRY Lung nodules 1 Occurrences starting 03/27/2024 until 04/26/2025 [facility] Work Phone: Comment on above: 1 Occurrences starti ng 03/27/2024 until 04/26/2025 Immunizations Immunization Date Immunization Notes Care Provider Lily henry 06-02-2025 influenza, high dose seasonal, preservative-free Dr. Vivi Pike DO Work Phone: [facility] 09-11-2016 influenza virus vaccine, unspecified formulation [facility] 09-24-2005 tetanus and diphther ia toxoids, adsorbed, preservative free, for adult use (2 Lf of tetanus toxoid and 2 Lf of diphtheria toxoid) [facility] Payers Date Payer Category Payer Unknown [id number] 2023 Private Health Insurance [facility] [id number] 2023 Unknown [id number] 2023 Unknown [id number] 2022 Self-pay [id number] 1950 Unknown [id number] Unknown [id number]. 2.462 Unknown [id number]. 2.462 Unknown [id number] [id number]. 2.462 Unknown [id number] [id number]. 2.462 Unknown [id number] [id number]. 2.462 Unknown [id number] [id number]. 2.462 Unknown [id number]. 2.462 Unknown [id number] 2.462 Unknown [id number] 2.462 Unknown [id number] 2.462 Social History Date Type Detail Facility Start: 01-08-2018 End: 06-01-2025 Ex-smoker (finding) [facility] Sex Assigned At [facility] Start: 05-01-2021 End: 12-17-2023 Tobacco smoking status ORIS Unknown if ever smoked [facility] Start: 1950 Sex Assigned At Male W [facility] Start: 10-24-1969 End: 10-24-2005 History of tobacco use Current smoker [facility] Start: 10-24-1969 End: 10-24-2005 History of tobacco use Cigarette Smoker [facility] Start: 01-08-2018 End: 12-15-2023 Cigarettes smoked current (pack per day) - Reported 0.5 [facility] Start: 01-08-2018 End: 05-15-2024 Tobacco use and exposure Smokeless tobacco non-user [facility] Start: 06-17-2020 End: 04-16-2025 Alcohol intake Current drinker of alcohol (finding) [facility] Start: 06-17-2020 End: 12-15-2023 Tobacco use panel [facility] Start: 07-27-2012 Adult Depression Screening Assessment 0 [facility] Start: 1950 Sex Assigned At Not on file C [facility] Start: 12-01-2024 End: 12-02-2024 Sex Male (finding) [facility] Goals Date Patient Goal Desired Activity /State Functional Status Date Assessment Result Facility 06-02-2025 Functional status Ambulates [facility] Work Phone: 12-02-2024 Functional status Ambulates;Up ad juan josé [facility] Work Phone: 12-20-2023 Functional status Ambulates [facility] Work Phone: 08-30-2022 Functional status Patient Activity Chair [facility] Work Phone: 08-30-2022 Functional status Independent [facility] Work Phone: 11-23-2014 Are you deaf, or do you have serious difficulty hearing Yes 11/23/2014 6:33 PM Rodrigo Perry LPN Yes [facility] 11-23-2014 Are you blind, or do you have serious difficulty seeing, even when wearing glasses No 11/23/2014 6:33 PM Rodrigo Perry LPN No [facility] 11-23-2014 Do you have serious difficulty walking or climbing stairs No 11/23/2014 6:33 PM Rodrigo Perry LPN No [facility] 11-23-2014 Do you have difficul ty dressing or bathing No 11/23/2014 6:33 PM Rodrigo Perry LPN No [facility] 11-23-2014 Because of a physica l, mental, or emotional condition, do you have difficulty doing errands alone such as visiting a physician's office or shopping No 11/23/2014 6:33 PM Rodrigo Perry LPN No [facility] Mental Status Date Assessment Result Facility 06-02-2025 Cognitive function Voice/Name [facility] Work Phone: 12-01-2024 Cognitive function Voice/Name [facility] Work Phone: 12-20-2023 Cognitive function Voice/Name [facility] Work Phone: 08-30-2022 Cognitive function Voice/Name [facility] Work Phone: 11-23-2014 Because of a physica l, mental, or emotional condition, do you have serious difficulty concentrating, remembering, or making decisions No 11/23/2014 6:33 PM EDT Rodrigo Rojas LPN No [facility] Clinical Notes 06-20-2021 to 06-02-2025 Note Date & Type Note Facility 06-02-2025 Consult note [facility] 06-02-2025 Discharge summary [facility] 06-02-2025 Note [facility] Medical Records Department [address] [place] [address] Discharge Summary 06/02/25 1153 MR#: [id number] Acct: [id number] Name: BEATRIS QUINN Eligio Rep #: [id number] : 1950 74 From: Karen Le DO PCP: VIVEK Yañez Status:ADM IN [id number] Providers Date of Admission: 06/01/25 Date of [...] who presented to the emergency department at [facility] on 06/01/2025 with chief complaint of shortness [...] His initial t (more content not included)... [facility] 06-01-2025 History and physi florinda note Note Date/Time June 01, 2025 5:17pm [facility] Medical Records Department [address] [place] [address] H&P Exam - Hospitalist 06/01/25 1056 MR#: [id number] Acct: [id number] Name: BEATRIS QUINN Rep #:[id number] : 1950 74 From: Karen Le DO PCP: VIVEK Yañez Status:AD M IN [place] [facility] [id number] HPI - General General Date of Admission: 06/01/25 Date of Service: 06/01/25 Chief Complaint: Shortness of breath HPI Narrative BEATRIS QUINN, is a 74 M who presented to the emergency department at [facility] on 06/01/2025 with chief complaint of shortness [...] was made. He will be admitted to [facility] and at the time of admissionI do anticipate at least 2 midnight stay. [facility] Medical History COPD (chronic obstructive pulmonary disease) Hypertension Aortic stenosis Elevated coronary artery calcium score Urinary retention Heart murmur Anxiety On home oxygen therapy Acute hypoxemic respiratory failure Pneumonia COPD (chronic obstructive pulmonary disease) NINILCHIK (hard of hearing) Hypertension Home Medications ?Medication [...] 71.4 H, Lymph % (Auto) 15.9 L, Marion % (Auto) 9.4, Eos % (Auto) 2.2, [...] No new consolidation. 2. Granulomas. Reading Location: [facility] Assessment & Plan Assessment/Plan (1) Hypoxia: (2) [...] of admission Charges/Coding Visit Charges Inpatient E&M: 19249 Init Hosp L2 06/01/25 1717 <Electronically signed by Karen Le DO> Cosigner Signature (if applicable): CC: SHIP WIRER-C Michelle Ferraro; Dr. Karen Le DO~ Signed [facility] Work Phone: 1(499) 335-275210-07-2025 History and physical note [facility] Medical Records Department [address] [place] [address] H&P Exam - Hospitalist 06/01/25 1056 MR#: [id number] Acct: [id number] Name: BEATRIS QUINN Rep #:[id number] : 1950 74 From: Karen Le DO PCP: Michelle Ferraro, VIVEK Status:AD M IN [place] [facility] [id number] HPI - General General Date of Admission: 06/01/25 Date of Service: 06/01/25 Chief Complaint: Shortness of breath HPI Narrative BEATRIS QUINN, is a 74 M who presented to the emergency department at [facility] on 06/01/2025 with chief complaint of shortness [...] was made. He will be admitted to [facility] and at the time of admissionI do anticipate at least 2 midnight stay. [facility] Medical History COPD (chronic obstructive pulmonary disease) Hypertension Aortic stenosis Elevated coronary artery calcium score Urinary retention Heart murmur Anxiety On home oxygen therapy Acute hypoxemic respiratory failure Pneumonia COPD (chronic obstructive pulmonary disease) NINILCHIK (hard of hearing) Hypertension Home Medications ?Medication [...] 71.4 H, Lymph % (Auto) 15.9 L, Marion % (Auto) 9.4, Eos % (Auto) 2.2, [...] No new consolidation. 2. Granulomas. Reading Location: [facility] Assessment & Plan Assessment/Plan (1) Hypoxia: (2) [...] of admission Charges/Coding Visit Charges Inpatient E&M: 54237 Init Hosp L2 06/01/25 1717 Cosigner Signature (if applicable): CC: SHIP WIRERHadley Ferraro; Dr. Karen Le, DO~ Signed [facility]10-07-2025 Evaluation note* Diagnosis Onset Date Resolution Status Admit Date Elevated troponin acute June 01, 2025 12:28pm Hypoxia acute June 01, 2 025 12:28pm Increased sputum production acute June 01, 2025 12:28pm Pulmonary nodules acute June 01, 2025 12:28pm [facility] Work Phone: 1(125) 549-762210-07-2025 Discharge summary Author Vivi Pike [facility] Note Date/Time June 01, 2025 12 :23pm [facility] Medical Records Department [address] [facility] [place] [address] Emergency Department Summary 06/01/25 MR#: [id number] Acct: [id number] Name: BEATRIS QUINN Rep #:[id number] : 1950 74 From: Vivi Chen PCP: [...] Recent immobilization, Recent surgery or Recent travel [facility] Medical History Aortic stenosis Elevated coronary artery calcium score Urinary retention Heart murmur Anxiety On home oxygen therapy Acute hypoxemic respiratory failure Pneumonia COPD (chronic obstructive pulmonary disease) NINILCHIK (hard of hearing) Hypertension Home Medications ?Medication [...] on emphysematous changes. Patient be admitted to [facility]. Lab Data Attestation: I reviewed the patient's [...] 71.4 H Lymph % (Auto) 15.9 L Marion % (Auto) 9.4 Eos % (Auto) 2.2 [...] No new consolidation. 2. Granulomas. Reading Location: [id number] Chest CTA 06/01/25 11:12 IMPRESSION: No evidence of pulmonary embolism. Bilateral pulmonary nodules superimposed on emphysematous changes. Reading Location: [id number] Rhythm Strip Rhythm Strip: Sinus Rhythm Rate: [...] disease, Hypoxia Disposition Disposition: Acute Care Hospital [facility] What to do if you have Problems For any increased pain, shortness of breath, bleeding, nausea or vomiting, chestpain, or any unexpected problems, contact your Primary Care Provider. Call [facility] ([phone]) or report to the closest Emergency Room. Call 911 if necessary. 06/01/25 1223 <Electronically signed by iVvi Pike DO> Cosigner Signature (if applicable): CC: ROWENA FERRARO ~ Signed [facility] Work Phone: [phone]) 800-682810-07-2025 Discharge summary [facility] Medical Records Department [address] [place] [address] Emergency Department Summary 06/01/25 MR#: [id number] Acct: [id number] Name: BEATRIS QUINN Rep #:[id number] : 1950 74 From: Vivi Chen PCP: [...] Recent immobilization, Recent surgery or Recent travel [facility] Medical History Aortic stenosis Elevated coronary artery calcium score Urinary retention Heart murmur Anxiety On home oxygen therapy Acute hypoxemic respiratory failure Pneumonia COPD (chronic obstructive pulmonary disease) NINILCHIK (hard of hearing) Hypertension Home Medications ?Medication [...] [facility] does not have a pulmonary emboli. This is obtained and negative for any PE. Does show bilateral pulmonary nodule superimposed on emphysematous changes. Patient be admitted to [facility] floor. Lab Data Attestation: I reviewed [...] 71.4 H Lymph % (Auto) 15.9 L Marion % (Auto) 9.4 Eos % (Auto) 2.2 [...] No new consolidation. 2. Granulomas. Reading Location: [facility] Chest CTA 06/01/25 11:12 IMPRESSION: No evidence of pulmonary embolism. Bilateral pulmonary nodules superimposed on emphysematous changes. Reading Location: [id number] Rhythm Strip Rhythm Strip: Sinus Rhythm Rate: [...] disease, Hypoxia Disposition Disposition: Acute Care Hospital [facility] What to do if you have Problems For any increased pain, shortness of breath, bleeding, nausea or vomiting, chestpain, or any unexpected problems, contact your Primary Care Provider. Call [facility] ([phone]) or report tothe closest Emergency Room. Call 911 if necessary. 06/01/25 1223 Cosigner Signature (if applicable): CC: ROWENA FERRARO ~ Signed [facility]10-07-2025 Radiology Diagnostic study note [facility] Imaging Services [address] [place] [address] CTA Chest W/WO Contrast MR#: [id number] Acct: [id number] Name: BEATRIS QUINN Rep #: [id number] : 1950 M 74 From: Jose Briscoe MD PCP: ROWENA FERRARO Status: REG ER Study:CTA Chest W/WO Contrast Date of Exam: 06/01/25 Exam# [id number] Ordering Dr: Kira Le DO PROCEDURE: CTA [...] nodules superimposed on emphysematous changes. Reading Location: [facility] CC: Dr. Karen Le DO; ROWENA FERRARO ~ Parts Interpreter: Signed [facility]10-07-2025 Radiology Diagnostic study note [facility] Imaging Services [address] [place] [address] Chest PA and Lateral MR#: [id number] Acct: [id number] Name: BEATRIS QUINN Rep #: [id number] : 1950 M 74 From: Chidi Powell MD PCP: ROWENA FERRARO Status: REG ER Study:Chest PA and Lateral Date of Exam: 06/01/25 Exam# [id number] Ordering Dr: Deshaun Pike DO PROCEDURE: CHEST [...] No new consolidation. 2. Granulomas. Reading Location: [id number] CC: Dr. Vivi Pike DO; ROWENA FERRARO ~ Parts Interpreter: Signed [facility]08-22-2025 NoteHNO ID: [id number] Author: TIGRE RESTREPO MD Service: ? Author [...] uysing prednisone 5 mg daily (given by [facility] emergency department physician) No weight loss, no fever Ct [...] tablet by mouth two times a day. vrzilswjlyl-xoobrycgi-urzewnni (TRELEGY ELLIPTA) 100-62.5-25 mcg inhalation powder Inhale [...] tree-in-bud distribution which are most likely infectious/inflammatory. Parts Interpreter: NESTOR Transcribe Date/Time: Oct 20 2024 1:36P Dictated by : MICAELA FONTAINE MD This examination was interpreted and the report reviewed and electronically signed by: MICAELA FONTAINE MD on Oct 20 2024 2:05PM EST IMPRESSION: 1. Lung nodules - ICD9: 793.19, ICD10: R91.8 (primary diagnosis) Ct chest 02/06/2024: Lymphadenopathy up to 14 mm Multiple nodules, some are calcified, others have neoplastic appearance, largest 11x09nc lateral segment RML. Cavitary type lesion EDWIN [id number] Multiple large opacities, one of them is [...] size compared to 06 (more content not included)...[facility]08-22-2025 History of Present illness Narrative* Tigre Restrepo [...] uysing prednisone 5 mg daily (given by [facility] emergency department physician) No weight loss, no fever Ct [...] tablet by mouth two times a day. apwwxwazpmn-haybfcvvp-ynqdbfmj (TRELEGY ELLIPTA) 100-62.5-25 mcg inhalation powder Inhale [...] tree-in-bud distribution which are most likely infectious/inflammatory. Parts Interpreter: NESTOR Transcribe Date/Time: Oct 20 2024 1:36P Dictated by : MICAELA FONTAINE MDThis examination was interpreted and the report reviewed and electronically signed by: MICAELA FONTAINE MD on Oct 20 2024 2:05PM EST IMPRESSION: 1. Lung nodules - ICD9: 793.19, ICD10: R91.8 (primary diagnosis) Ct chest 02/06/2024: Lymphadenopathy up to 14 mm Multiple nodules, some are calcified, others have neoplastic appearance, largest 47h58sp lateral segment RML. Cavitary type lesion EDWIN [id number] Multiple large opacities, one of them is [...] ago Tigre Restrepo MD, MATT Staff, Respiratory [facility] [1] Social History Tobacco Use Smoking status: Former Current packs/day: 0.00 Average packs/day: 0.5 packs/day for 36.0 years (18.0 ttl pk-yrs) Types: Cigarettes Start date: 10/24/1969 Quit date: 10/24/2005 Years since quittin.4 Smokeless tobacco: Never Substance Use Topics Alcohol use: Yes Drug use: No [facility] History of Present illness Narrative* Alina Good [...] PATIENT PRESENTS WITH AN IMPLANTABLE OR ATTACHED CHECKERING MACHINE OPERATOR: No RADIOLOGY DEPARTMENT: CT; Exam(s) Completed: Chest PERIPHERAL IV DATA: Not applicable SIGNED BY: RT Naoh(Jennifer) April 16, 2025 8:56 AM documented in [facility]City [facility]-22-2025 NoteHNO ID: [id number] Author: ALINA GOOD RT(Jennifer) Service: Radiology Author [...] PATIENT PRESENTS WITH AN IMPLANTABLE OR ATTACHED CHECKERING MACHINE OPERATOR: No RADIOLOGY DEPARTMENT: CT; Exam(s) Completed: Chest PERIPHERAL IV DATA: Not applicable SIGNED BY: RT Noah(Jennifer) April 16, 2025 8:56 [id number] Discharge summary Author Anirudhkelly Thompson [facility] Note Date/Time December 02, 2024 3:55 pm [facility] Medical Records Department [address] [place] [address] Discharge Summary 12/02/24 1532 MR#: [id number] Acct: [id number] Name: BEATRIS QUINN Rep #:[id number] : 1950 73 From: Anirudhkelly Thompson DO PCP: VIVEK Yañez Status:AD IN Location: [place] [id number] Providers Date of Admission: 12/01/24 Primary [...] 95.2 H, Lymph % (Auto) 2.2 L, Marion % (Auto) 2.0, Eos % (Auto) 0.0, [...] Anirudh Thompson Primary Care Provider: Michelle Ferraro SHIP WIRER Discharge Orders/Prescriptions Prescriptions: New prednisone 20 mg [...] Self Care Charges/Coding Visit Charges Inpatient E&M: 13236 Disch Hosp >30min 12/02/24 1536 <Electronically signed [...] Thompson DO> Cosigner Signature (if applicable): cc: SHIP WIRER-Deshaun Ferraro; Dr. Anirudh Thompson DO ~* Signed [facility] Work Phone: 1(484) 682-580004-09-2025 Consult note [facility] Medical Records Department [address] [place] [address] Counseling Note - Pharmacy 12/02/24 1632 MR#: [id number] Acct: [id number] Name: BEATRIS QUINN Rep #:[id number] : 1950 73 From: Niurka Quinn PCP: VIVEK Yañez Status:AD M IN Y Location: [place] [address] Pharmacy [facility] has performed discharge medication reconciliation [...] Signature (if applicable): Date CC: ~ Signed [facility]04-09-2025 Discharge summary [facility] Medical Records Department [address] [place] [address] Discharge Summary 12/02/24 1532 MR#: [id number] Acct: [id number] Name: BEATRIS QUINN Eligio Rep #:[id number] : 1950 73 From: Anirudh Thompson DO PCP: VIVEK Yañez Status:AD M IN Location: [facility] [id number]- 1 Providers Date of Admission: 12/01/24 Primary [...] 95.2 H, Lymph % (Auto) 2.2 L, Marion % (Auto) 2.0, Eos % (Auto) 0.0, [...] Anirudh Thompson Primary Care Provider: Michelle Ferraro SHIP WIRER Discharge Orders/Prescriptions Prescriptions: New prednisone 20 mg [...] Self Care Charges/Coding Visit Charges Inpatient E&M: 89283 Disch Hosp >30min 12/02/24 1536 Cosigner Signature (if applicable): CC: VIVEK Ferraro; Dr. Anirudh Thompson DO~ Signed ADDENDUM by Dr. Anirudh Thompson DO on 12/02/24 at 1555 Addendum Oxygen testing reviewed and patient is ambulatory in home and in the community and requires home oxygen with portability. 12/02/24 1555 Cosigner Signature (if applicable): cc: VIVEK Ferraro; Dr. Anirudh Thompson DO ~* Signed [facility]04-09-2025 [facility] Medical Records Department [address] [place] [address] Discharge Summary 12/02/24 1532 MR#: [id number] Acct: [id number] Name: BEATRIS QUINN Rep #: [id number] : 1950 73 From: Anirudh Thompson DO PCP: VIVEK Yañez Status:ADM IN Location: [facility] [id number] Providers Date of Admission: 12/01/24 Primary Care [...] 95.2 H, Lymph % (Auto) 2.2 L, Marion % (Auto) 2.0, Eos % (Auto) 0.0, [...] Sputum, Expectorated/Coughed Gram St (more content not included)...[facility]04-09-2025 Progress note Author Anirudh Thompson [facility] Note Date/Time December 02, 2024 1:20 pm [facility] Medical Records Department [address] [place] [address] Progress Note - Hospitalist 12/02/24814 MR#: [id number] Acct: [id number] Name: BEATRIS QUINN Rep #:[id number] : 1950 73 From: Anirudh Thompson DO PCP: CHUCKY YañezC Status:AD M IN Location: [place] [id number] Reason for Visit Reason for Visit: [...] 95.2 H, Lymph % (Auto) 2.2 L, Marion % (Auto) 2.0, Eos % (Auto) 0.0, [...] full code. Charges/Coding Visit Charges Inpatient E&M: 91990 Subs Hosp L2 12/02/24 1320 <Electronically signed by Anirudh Thompson DO> Cosigner Signature (if applicable): CC: ~ Signed [facility] Work Phone: 1(203) 145-623004-09-2025 Progress note [facility] Medical Records Department [address] [place] [address] Progress Note - Hospitalist 12/02/24 0815 MR#: [id number] Acct: [id number] Name: BEATRIS QUINN Rep #:[id number] : 1950 73 From: Anirudh Thompson DO PCP: Michelle Ferraro NP-C Status:AD IN Location: [place] [address] Reason for Visit Reason for Visit: Diagnoses [...] 95.2 H, Lymph % (Auto) 2.2 L, Marion % (Auto) 2.0, Eos % (Auto) 0.0, [...] full code. Charges/Coding Visit Charges Inpatient E&M: 18821 Subs Hosp L2 12/02/24 1320 Cosigner Signature (if applicable): CC: ~ Signed [facility]04-08-2025 History and physical note Author Anirudh Thompson [facility] Note Date/Time December 01, 2024 8:47 am [facility] Medical Records Department [address] [place] [address] H&P Exam - Hospitalist 12/01/24 0831 MR#: [id number] Acct: [id number] Name: BEATRIS QUINN Rep #:[id number] : 1950 73 From: Anirudh Thompson DO [...] better with rest. CP does not radiate. [facility] Medical History Aortic stenosis Elevated coronary artery calcium score Urinary retention Heart murmur Anxiety On home oxygen therapy Acute hypoxemic respiratory failure Pneumonia COPD (chronic obstructive pulmonary disease) NINILCHIK (hard of hearing) Hypertension Home Medications ?Medication [...] (400 unit) capsule 268 mg PO DAILY [employer] 12/17/23 Unknown History alprazolam 0.25 mg tablet [...] 91.1 H, Lymph % (Auto) 3.0 L, Marion % (Auto) 5.1, Eos % (Auto) 0.0, [...] process. Recommend follow-up until resolution. Reading Location: [id number] Assessment & Plan Assessment/Plan (1) COPD exacerbation: [...] left main. Charges/Coding Visit Charges Inpatient E&M: 64068 Init Hosp L3 12/01/24 0847 <Electronically signed by Anirudh Thompson DO> Cosigner Signature (if applicable): CC: Dr. Anirudh Thompson DO; Dr. Jr Ryan DO~ Signed [facility] Work Phone: 1(772) 794-678404-08-2025 Evaluation note* Diagnosis Onset Date Resolution Status Admit Date Hypoxia acute December 01 8:16am Pneumonia acute December 01 8:16am Stable angina acute December 01, 2024 8:16am COPD exacerbation chronic December 012024 8:16am Hypertension chronic December 01, 2 025 8:16am [facility] Work Phone: 1(412) 653-315404-08-2025 Discharge summary Author Todd Valdovinos [facility] Note Date/Time December 01, 2024 8:00 am [facility] Medical Records Department [address] [place] [address] Emergency Department Summary 12/01/24 MR#: [id number] Acct: [id number] Name: BEATRIS QUINN Rep #:[id number] : 1950 73 From: Todd Valdovinos DO [...] influenza which was roughly 1 year ago [facility] Medical History Aortic stenosis Elevated coronary artery calcium score Urinary retention Heart murmur Anxiety On home oxygen therapy Acute hypoxemic respiratory failure Pneumonia COPD (chronic obstructive pulmonary disease) NINILCHIK (hard of hearing) Hypertension Home Medications ?Medication [...] (400 unit) capsule 268 mg PO DAILY [employer] 12/17/23 Unknown History alprazolam 0.25 mg tablet [...] 91.1 H Lymph % (Auto) 3.0 L Marion % (Auto) 5.1 Eos % (Auto) 0.0 [...] process. Recommend follow-up until resolution. Reading Location: [id number] Chest x-ray as interpreted by the emergency [...] DO [Primary Care Provider] - Print Language: Taiwanese Disposition Disposition: [facility] What to do if you have Problems For any increased pain, shortness of breath, bleeding, nausea or vomiting, chestpain, or any unexpected problems, contact your Primary Care Provider. Call [facility] ([phone]) or report to the closest Emergency Room. Call 911 if necessary. 12/01/24 08 <Electronically signed by Todd Valdovinos DO> Cosigner Signature (if applicable): CC: Dr. Jr Ryan DO ~ Signed [facility] Work Phone: 1(824) 112-172604-08-2025 History and physical note [facility] Medical Records Department [address] [place] [address] H&P Exam - Hospitalist 12/01/24830 MR#: [id number] Acct: [id number] Name: BEATRIS QUINN Rep #:[id number] : 1950 73 From: Anirudh Thompson DO [...] better with rest. CP does not radiate. [facility] Medical History Aortic stenosis Elevated coronary artery calcium score Urinary retention Heart murmur Anxiety On home oxygen therapy Acute hypoxemic respiratory failure Pneumonia COPD (chronic obstructive pulmonary disease) NINILCHIK (hard of hearing) Hypertension Home Medications ?Medication [...] (400 unit) capsule 268 mg PO DAILY [facility] 12/17/23 Unknown History alprazolam 0.25 mg [...] 91.1 H, Lymph % (Auto) 3.0 L, Marion % (Auto) 5.1, Eos % (Auto) 0.0, [...] process. Recommend follow-up until resolution. Reading Location: [id number] Assessment & Plan Assessment/Plan (1) COPD exacerbation: [...] left main. Charges/Coding Visit Charges Inpatient E&M: 59239 Init Hosp L3 12/01/24 0847 Cosigner Signature (if applicable): CC: Dr. Anirudh Thompson DO; Dr. Jr Ryan DO~ Signed [facility]04-08-2025 Discharge summary [facility] Medical Records Department [address] [place] [address] Emergency Department Summary 12/01/24 MR#: [id number] Acct: [id number] Name: BEATRIS QUINN Rep #:[id number] : 1950 73 From: Todd Valdovinos DO [...] influenza which was roughly 1 year ago [facility] Medical History Aortic stenosis Elevated coronary artery calcium score Urinary retention Heart murmur Anxiety On home oxygen therapy Acute hypoxemic respiratory failure Pneumonia COPD (chronic obstructive pulmonary disease) NINILCHIK (hard of hearing) Hypertension Home Medications ?Medication [...] 91.1 H Lymph % (Auto) 3.0 L Marion % (Auto) 5.1 Eos % (Auto) 0.0 [...] process. Recommend follow-up until resolution. Reading Location: [facility] Chest x-ray as interpreted by the [...] DO [Primary Care Provider] - Print Language: Taiwanese Disposition Disposition: Acute Care Hospital [facility] What to do if you have Problems For any increased pain, shortness of breath, bleeding, nausea or vomiting, chestpain, or any unexpected problems, contact your Primary Care Provider. Call [facility] ([phone]) or report tothe closest Emergency Room. Call 911 if necessary. 12/01/24 0800 Cosigner Signature (if applicable): CC: Dr. Jr Ryan DO ~ Signed [facility]04-08-2025 Radiology Diagnostic study note [facility] Imaging Services [address] [place] [address] Chest PA and Lateral MR#: [id number] Acct: [id number] Name: BEATRIS QUINN Rep #: [id number] : 1950 M 73 From: Eloy Parra MD PCP: Dr. Jr Ryan DO Status: REG ER Study:Chest PA and Lateral Date of Exam: 12/01/24 Exam# [id number] Ordering Dr: Aziza Valdovinos DO PROCEDURE: CHEST [...] process. Recommend follow-up until resolution. Reading Location: [id number] CC: Dr. Jr Ryan DO; Todd Valdovinos DO ~ Parts Interpreter: Signed [facility]03-03-2025 Telephone encounter Note* Telephone Encounter - Tyrell FaustinoCandelaria Parvin - 10/26/2024 4:21 PM EST Patient's called pulmonary asking for assistance in delivering a message to Dr. Restrepo's office since they have been unable to contact and speak with the office. Per caller: Patient is not interested in following up with infectious disease. Patient can be reached by calling [phone]. [facility]03-03-2025 Miscellaneous Notes* Telephone Encounter - Candelaria Singh - 10/26/2024 4:21 PM EST Patient's called pulmonary asking for assistance in delivering a message to Dr. Restrepo's office since they have been unable to contact and speak with the office. Per caller: Patient is not interested in following up with infectious disease. Patient can be reached by calling [phone]. documented in this encounterCity Hospital02-24-2025 Telephone encounter Note * Telephone Encounter - [...] is done in 6 months Thank you [facility]02-24-2025 Miscellaneous Notes* Telephone Encounter - Tigre Restrepo [...] 6 months Thank you documented in this encounterCity Hospital02-21-2025 NoteHNO ID: [id number] Author: TAMELA ANDERSON MD Service: ? Author [...] are calcified, others have neoplastic appearance, largest 55e68kp lateral segment RML. Cavitary type lesion EDWIN [id number] 03/15/25- Dr. Restrepo pulm OPD consult 04/21/24- [...] consult Tamela Anderson MD October 16[facility] History of Present illness Narrative* [...] are calcified, others have neoplastic appearance, largest 40j85wu lateral segment RML. Cavitary type lesion EDWIN 30O64WO 03/15/25- Dr. Restrepo pulm OPD consult 04/21/24- [...] MD October 16, 2024 documented in this encounterCity Hospital02-21-2025 Note* Addendum Note - Tigre Restrepo MD - 10/16/2024 3:14 PM ESTAddended by: TIGRE RESTREPO on: 10/16/2024 03:14 PM Modules accepted: Orders [facility]02-21-2025 Miscellaneous Notes* Addendum Note - Tigre Restrepo MD - 10/16/2024 3:14 PM ESTAddended by: TIGRE RESTREPO on: 10/16/2024 03:14 PM Modules accepted: Orders documented in this encounterCity Hospital02-21-2025 NoteHNO ID: [id number] Author: TIGRE RESTREPO MD Service: ? Author [...] report showed stable lung opacities Works in [employer] From [employer] [facility] [employer] Social History Tobacco Use Smoking status: [...] Take by mouth at bedtime as needed. qfiphqvwfua-tohhyqitx-tfyibgqq (TRELEGY ELLIPTA) 100-62.5-25 mcg inhalation powder Inhale [...] technique due to different penetrations the films. Parts Interpreter: NESTOR Transcribe Date/Time: Mar 24 2024 1:44P [...] be communicated with the ordering provider via [employer] staff message or phone message by [facility] within 2 business days of report finalization. --END OF FINDING-- Parts Interpreter: NESTOR Transcribe Date/Time: Mar 11 2024 8:08A Dictated by : NICLOAS BAJWA MD This examination was interpreted and the report reviewed and electronically signed by: NICOLAS BAJWA MD on Mar 11 2024 8:17AM EST XR CHEST 2V FRONTAL/LAT Result Date: 12/15/2023 IMPRE (more content not included)...[facility]02-21-2025 History of Present illness Narrative* Tigre Restrepo [...] report showed stable lung opacities Works in [employer] From [facility] Social History Tobacco Use Smoking status: [...] Take by mouth at bedtime as needed. jaivoovearp-jbekzbfan-wladgpsp (TRELEGY ELLIPTA) 100-62.5-25 mcg inhalation powder Inhale [...] in technique due todifferent penetrations the films. Parts Interpreter: PSC[employer] Transcribe Date/Time: Mar 24 2024 1:44P [...] be communicated with the ordering provider via [employer] staff message or phone message by [facility] within 2 business days of report finalization. --END OF FINDING-- Parts Interpreter: PSCB Transcribe Date/Time: Mar 11 2024 8:08A Dictated by : NICOLAS BAJWA MD This examination was interpreted and the report reviewed and electronically signed by: NICOLAS BAJWA MD on Mar 11 2024 8:17AM EST XR CHEST 2V FRONTAL/LAT Result Date: 12/15/2023 IMPRESSION: No acute radiographic abnormality. Parts Interpreter: [facility] Transcribe Date/Time: Dec 15 2023 1:22A [...] with aspiration. 3. No enlarging lymph nodes. Parts Interpreter: [facility] Transcribe Date/Time: May 15 2024 4:44P [...] are calcified, others have neoplastic appearance, largest 29g95nb lateral segment RML. Cavitary type lesion EDWIN 57E01DP Multiple large opacities, one of them is [...] Continue Trelegy Albuterol as needed hfa/nebulizer - FQKED-0-BMFVTDFPAVM 3. Chest pain on breathing - ICD9: 786.52, ICD10: R07.1 R/o PE Trip by bus to [place] 01/2024 4. Cavitary lesion of lung - ICD9: 518.89, ICD10: J98.4 Serum aspergillus galactomannan and coccidio mildly above normal Will consult ID 5. Allergy to environmental factors - ICD9: V15.09, ICD10: Z91.09 Possible asthma on top of copd 6. Ex-smoker - ICD9: V15.82, ICD10: Z87.891 Quit 15 yrs ago Tigre Restrepo MD, MATT Staff, Respiratory [facility] documented in this encounterCity Hospital02-21-2025 History of Present illness Narrative* Alina Good [...] PATIENT PRESENTS WITH AN IMPLANTABLE OR ATTACHED CHECKERING MACHINE OPERATOR: No RADIOLOGY DEPARTMENT: CT; Exam(s) Completed: Chest PERIPHERAL IV DATA: Not applicable SIGNED BY: RT Noah(Jennifer) October 16, 2024 7:09 AM documented in this encounterCity Hospital02-21-2025 NoteHNO ID: [id number] Author: ALINA GOOD RT(R) Service: Radiology Author [...] PATIENT PRESENTS WITH AN IMPLANTABLE OR ATTACHED CHECKERING MACHINE OPERATOR: No RADIOLOGY DEPARTMENT: CT; Exam(s) Completed: Chest PERIPHERAL IV DATA: Not applicable SIGNED BY: RT Noah(R) October 16, 2024 7:09 AMMer[facility] [id number] Telephone encounter Note* Telephone Encounter - Veronica Sherman - 10/09/2024 11:58 AM EST First attempt at contacting patient, uzair VM to schedule [facility]02-14-2025 Miscellaneous Notes* Telephone Encounter - Veronica Sherman [...] his next office visit on 10/16 in [place]. Patient states he will arrive one hour early for X-ray, CT scan or other testing. Patient has been calling the appointment line but has been on hold for too long. Please reach out to patient and confirm testing will be scheduled and advise of arrival time. Patient phone: [phone]. documented in this encounterCity Hospital02-14-2025 Telephone encounter Note * Telephone Encounter - Tigre Restrepo MD - 10/09/2024 10:38 AM EST Please schedule him for a ct chest prior to his next appointment - if needed you can move the appointment until the ct chest is done. He does not need a cxr just a ct chest [facility] Work Phone: 1(234) 529-799602-14-2025 Telephone encounter Note* Telephone Encounter - Candelaria Singh - 10/09/2024 10:11 AM EST Patient called COPD coordinator asking to message Dr. Restrepo requesting to add on testing at his next office visit on 10/16 in [place]. Patient states he will arrive one hour early for X-ray, CT scan or other testing. Patient has been calling the appointment line but has been on hold for too long. Please reach out to patient and confirm testing will be scheduled and advise of arrival time. Patient phone: [phone]. [facility]11-06-2024 Telephone encounter Note* Telephone Encounter - Kacey Che LPN - 07/01/2024 3:59 PM EST Attempted to call pt, no answer but message was left on for him to return our call. When Pt calls, please see message below from Dr. Restrepo. [facility]11-06-2024 Miscellaneous Notes* Telephone Encounter - Kacey [...] Nothing in Epic. Thanks documented in this encounterCity Hospital11-06-2024 Telephone encounter Note * Telephone Encounter - Tigre Restrepo MD - 07/01/2024 3:38 PM EST Please check if he has seen the infectious disease specialist. Nothing in Epic. Thanks [facility] Work Phone: 1(148) 704-454410-15-2024 Telephone encounter Note* Telephone Encounter - Caio Patel RN - 06/09/2024 4:50 PM EDT Called pt left VM with results via phone. Sent ECHO results via mail. [facility]10-15-2024 Miscellaneous Notes* Telephone Encounter - Caio Patel [...] back with any questions. documented in this encounterCity Hospital10-15-2024 Telephone encounter Note * Telephone Encounter - [...] Advised to call back with any questions. [facility]10-07-2024 Telephone encounter Note* Telephone Encounter - Nicole Lemus MA - 06/01/2024 9:59 AM EDT Patient is requesting this prescription be faxed KERRY at [facility] at . Pharmacy phone number is . JOSE ALBERTO with Dr. Restrepo 03/24/2024 No future appt. [facility]24 Miscellaneous Notes* Telephone Encounter - Nicole Lemus MA - 06/01/2024 9:59 AM EDT Patient is requesting this prescription be faxed KERRY at [facility] at . Pharmacy phone number is . JOSE ALBERTO with Dr. Restrepo 03/24/2024 No future appt. documented in this encounterCity Hospital10-03-2024 Telephone encounter Note * Telephone Encounter - Glendy Dial RN - 05/28/2024 1:32 PM EDT Left message for patient to return call. [facility] Miscellaneous Notes* Telephone Encounter - Glendy Dial [...] infectious disease Thanks nh documented in this encounterCity Hospital10-03-2024 Note* Addendum Note - Tigre Restrepo MD - 05/28/2024 1:29 PM EDTAddended by: TIGRE RESTREPO on: 05/28/2024 01:29 PM Modules accepted: Orders [facility]10-03-2024 Telephone encounter Note* Telephone Encounter - Tigre [...] please schedule him with infectious disease Thanks ma [facility]10-03-2024 Telephone encounter Note* Telephone Encounter - Sarina Benitez RN - 05/28/2024 8:48 AM EDT Called pt, no answer. Advised pt to call back to discuss recommednations. [facility]-03-2024 Miscellaneous Notes* Telephone Encounter - Sarina Benitez [...] artery. He recommended this be done at [facility]. documented in this encounterCity Hospital10-02-2024 Telephone encounter Note * Telephone Encounter - Janie Baxter RN - 05/27/2024 4:07 PM EDT Called patient at 4:06, advised he would get a CB at 4P. Left a message that this nurse will CB at 7P tonight. [facility]-02-2024 Miscellaneous Notes* Telephone Encounter - Janie Baxter [...] am still waiting for the culture. Thanks ma documented in this encounterCity Hospital10-02-2024 Telephone encounter Note * Telephone Encounter - Janie Baxter RN - 05/27/2024 12:11 PM EDT Left a message per patient request that he will get a call back at the number listed t give him themessage. [facility]10-02-2024 Telephone encounter Note* Telephone Encounter - Tigre Restrepo MD - 05/27/2024 11:39 AM EDT Please inform the patient that there was no cancer seen on lung biopsy. I am still waiting for the culture. Thanks ma [facility]10-02-2024 Telephone encounter Note* Telephone Encounter - Claire Turner MD - 05/27/2024 11:07 AM EDT I attempted to reach Beatris via telephone however there was no answer. Voicemail message left for him to return our call. Dr. Ayers was able to review his cath images and recommended coronary ultrasound of the left main artery. He recommended this be done at [facility]. [facility] Work Phone: 1(991) 388-629510-01-2024 Telephone encounter Note* Telephone Encounter - Janie Baxter RN - 05/26/2024 1:57 PM EDT Message to patient, advised he will get a CB with the culture results as soon as they are available. [facility]-01-2024 Miscellaneous Notes* Telephone Encounter - Janie Baxter [...] request that Dr. Restrepo call script into [facility]. He states he had his biopsy today and was told that Dr. Restrepo would be sending in a script to address his lung infection. Patient unsure of medication and requested a message to be sent to Dr. Restrepo's office. Please contact patient with any questions: [phone] (neighbor's phone) documented in this encounterCity Hospital10-01-2024 Telephone encounter Note * Telephone Encounter - Janie Baxter RN - 05/26/2024 1:32 PM EDT Unable to reach patient at work, will have to try other number later. [facility] Telephone encounter Note* Telephone Encounter - Janie Baxter RN - 05/26/2024 11:58 AM EDT Patient at lunch, need to CB after 12:30. [facility]2024 Telephone encounter Note* Telephone Encounter - Tigre Restrepo MD - 05/26/2024 10:44 AM EDT Please inform the patient that the bronchoscopy bacterial and fungal cultures remains negative. He tested positive for rhinovirus which is the common cold. I sent him a prednisone course for 7 days The rest of the cultures will take up to 6 weeks. I will keep him updated. Thanks' [facility]10-01-2024 Telephone encounter Note* Telephone Encounter - Janie Baxter RN - 05/26/2024 9:58 AM EDT Patient left a message on at 8:51a about the message below. Please advise. [facility]09-30-2024 Telephone encounter Note* Telephone Encounter - Candelaria Singh - 05/25/2024 3:22 PM EDT Patient called to request that Dr. Restrepo call script into [facility]. He states he had his biopsy today and was told that Dr. Restrepo would be sending in a script to address his lung infection. Patient unsure of medication and requested a message to be sent to Dr. Restrepo's office. Please contact patient with any questions: [phone] (neighbor's phone) T [facility]09-27[facility]20[facility] History of Present illness Narrative* Claire Turner MD - 05/22/2024 8:00 AM EDT Images from the original note were not included. [facility] [place] SECTION OF REGIONAL CARDIOLOGY OUTPATIENT VISIT DATE 05/22/2024 OUTPATIENT VISIT TYPE NEW PRIMARY CARE PHYSICIAN: Jr Ryan [id number] [address] HISTORY OF PRESENT ILLNESS: Mr. Quinn is a 73 year old male, hx of hypertension, asthma, COPD, presents for cardiovascular assessment. He denies chest pain, palpitations, orthopnea, PND, leg swelling, lightheadedness, syncope. He underwent hernia surgery in January/February in [place]. Around that time, he underwent a coronary CTA. CD images or results are not available at the time of this visit. He reported that based on the CT findings, he was advised to have a cardiac catheterization which was performed at [place]. Per cath report dated 03/02/2024: 'Nonobstructive coronary [...] gradient 13.5, mild to moderate , mild [place]. He presents for second opinion re: heart [...] with aspiration. 3. No enlarging lymph nodes. Parts Interpreter: NESTOR Transcribe Date/Time: May 15 2024 4:44P [...] Call him with results Claire Turner MD, [facility] documented in this encounterCity Hospital09-24-2024 History of Present illness Narrative* Chapin Crow-MD Dwight - 05/19/2024 4:15 PM EDT It is the responsibility of the presenting physician to facilitate any and all recommendations discussed during Thoracic Tumor Board if they are to be implemented into the patients plan of care. Pending Staff Approval [facility] DISCIPLINARY THORACIC TUMOR BOARD: May 19, 2024 Presenting Physician(s): MD Beatris Lomas Eligio Quinn 73 year old [id number] Staff in Attendance: Staff representing all Thoracic [...] treatment team staff physicians. Signed by: Mehreen Crow documented in this encounterCity Hospital09-20-2024 Instructions* Patient Instructions* Mehreen Crow MD - 05/15/2024 10:37 AM EDT You will need an updated CAT scan today. If the lung spots are better, I will call you and let you know. But, if I don't call, that means you are coming for the biopsy as scheduled. For bronchoscopy procedure: You will receive a call from our welding machine operator electroslag to let you know the time and [...] and until procedure is done Please call [phone] for additional information prior to bronchoscopy if you have questions You will need someone to bring you to this procedure and stay for the entire duration of procedure as you cannot drive home after procedure documented in this encounterCity Hospital09-20-2024 History of Present illness Narrative* Nicole Martin [...] PATIENT PRESENTS WITH AN IMPLANTABLE OR ATTACHED CHECKERING MACHINE OPERATOR: No RADIOLOGY DEPARTMENT: CT; Exam(s) Completed: Chest PERIPHERAL IV DATA: Not applicable SIGNED BY: RT Noel(R) May 15, 2024 12:09 PM documented in this encounterCity Hospital09-20-2024 History of Present illness Narrative* Mehreen Crow MD - 05/15/2024 10:00 AM EDT Images from the original note were not included. INTERVENTIONAL PULMONARY MEDICINE CONSULTATION PLEASE DO NOT REMOVE FROM THE CHART OR MODIFY PRINTED COPY Patient Name: Beatris Quinn PRIMARY CARE PHYSICIAN: Jr Ryan DO REFERRING PHYSICIAN: Tigre Restrepo MD (please cc for bronch result) Interpreting services utilized via (infection prevention practitioner service modality: infection prevention practitioner not needed for appointment) Consultation requested by [...] Sometimes some pain in the chest. Seen renal dietitian, may have some artery blockage or narrowing, [...] heartburn or reflux symptoms GENITOURINARY: Not reviewed CONSUMER SALES REPRESENTATIVE: NA MUSCULOSKELETAL: Negative for joint pain or [...] test. He is still independently working in [place]. Overall preserved ECOG. 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 It is also explained [...] 15, 2024 12:39 PM documented in this encounterCity Hospital09-13-2024 Telephone encounter Note * Telephone Encounter - Kiara Berry HUC - 05/08/2024 3:33 PM EDT Contacted patient to schedule Bronchoscopy. No answer,left message. [facility] Miscellaneous Notes* Telephone Encounter - Kiara Berry HUC - 05/08/2024 3:33 PM EDT Contacted patient to schedule Bronchoscopy. No answer,left message. documented in this encounterCity Hospital09-10-2024 History of Present illness Narrative* Sahara Weldon [...] on anticoagulants/anti-plt therapy? No Nursing Considerations: (ie: mcc, TB, respiratory isolation, etc.) none Diagnosis/Reason for [...] 03/11/2024 Neut% 92.8 12/14/2023 Lymph% 2.1 12/14/2023 Marion% 4.6 12/14/2023 Eosin% 0.0 12/14/2023 Baso% 0.1 12/14/2023 Abs Neut (ANC) 17.42 12/14/2023 Abs Marion 0.86 12/14/2023 Abs Eosin <0.03 12/14/2023 Abs [...] - 1.22 mg/dL Final documented in this encounterCity Hospital09-04-2024 Telephone encounter Note * Telephone Encounter - Mitzi Quinteros - 04/29/2024 3:56 PM EDT Contacted patient and left a voicemail to let him know that Dr. Restrepo sent the clearance to [facility] team- they will contact him to schedule a biopsy. [facility] Miscellaneous Notes* Telephone Encounter - Mitzi Quinteros - 04/29/2024 3:56 PM EDT Contacted patient and left a voicemail to let him know that Dr. Restrepo sent the clearance to [facility] team- they will contact him to schedule a biopsy. documented in this encounterCity Hospital09-04-2024 Telephone encounter Note * Telephone Encounter - Emily Salazar - 04/29/2024 3:19 PM EDT Patient called and would like to get scheduled for a biopsy. Patient mentioned Dr. Restrepo recommended for patient to have biopsy done. [facility] Miscellaneous Notes* Telephone Encounter - Emily Salazar - 04/29/2024 3:19 PM EDT Patient called and would like to get scheduled for a biopsy. Patient mentioned Dr. Restrepo recommended for patient to have biopsy done. documented in this encounterCity Hospital09-04-2024 Telephone encounter Note * Telephone Encounter - Sandra Shelton LPN - 04/29/2024 8:18 AM EDT Letter faxed to [phone]. Transmission successful, paperwork in fax drawer. [facility] Miscellaneous Notes* Telephone Encounter - Sandra Shelton LPN - 04/29/2024 8:18 AM EDT Letter faxed to [phone]. Transmission successful, paperwork in fax drawer. * [...] Asking for this to be faxed to [phone]. documented in this encounterCity Hospital09-04-2024 Telephone encounter Note * Telephone Encounter - Sandra Shelton LPN - 04/29/2024 8:14 AM EDT Images from the original note were not included. Tigre Restrepo MD You15 hours ago (4:18 PM) I am putting a new version in [facility] Telephone encounter Note* Telephone Encounter - Sandra Shelton LPN - 04/28/2024 4:02 PM EDT Spoke with [facility] - they state that clearance letter for them to complete must state that name of the physician doing the procedure, the name of the procedure, and the date that it will be done. Asking for this to be faxed to [phone]. [facility] Telephone encounter Note* Telephone Encounter - Tigre Restrepo MD - 04/21/2024 4:16 PM EDT He has an appointment with cardiology next month at [place] Please can you please try to get [...] they paged him for me Thank you [facility] Work Phone: 1(513) 394-526408-27-2024 Miscellaneous Notes* Telephone Encounter - Tigre Restrepo MD - 04/21/2024 4:16 PM EDT He has an appointment with cardiology next month at [place] Please can you please try to get [...] for me Thank you documented in this encounterCity Hospital08-27-2024 History of Present illness Narrative* Sahara Weldon [...] had hernia surgery 3 weeks ago in [place] as well as stem cell treatment for his COPD. At that time he states he had some type of heart study, he believes a cardiac MRI where they told him he should follow-up with a renal dietitian due to valvular issues andblockage. He had been went home to [facility] for he had a cardiac catheterization and an echo. In [place] he was told everything was normal. He [...] Saturday and Saturday M documented in this encounterCity Hospital08-27-2024 Telephone encounter Note * Telephone Encounter - Tigre Restrepo MD - 04/21/2024 11:10 AM EDT Called patient and discussed PET SCAN FINDINGS. POSSIBILITY OF LUNG CANCER PATIENT WILLING TO HAVE BIOPSY SOON POSSIBLE Sent a request to [facility] IR team for evaluation [facility]-27-[facility]24 Miscellaneous Notes* Telephone Encounter - Tigre Restrepo MD - 04/21/2024 11:10 AM EDT Called patient and discussed PET SCAN FINDINGS. POSSIBILITY OF LUNG CANCER PATIENT WILLING TO HAVE BIOPSY SOON POSSIBLE Sent a request to [facility] IR team for evaluation documented in this encounterCity Hospital08-27-2024 History of Present illness Narrative* Sahara Che [...] PATIENT PRESENTS WITH AN IMPLANTABLE OR ATTACHED CHECKERING MACHINE OPERATOR: No CREATININE: Creatinine Date Value Ref Range [...] radiation safety can be found usingthis link: [email or web address] 20Diagnostic%20Nuclear%20Medicine%20Procedures.pdf SIGNATURE: SHARON Bledsoe) PATIENT NAME: Beatris Quinn DATE: April 21, 2024 TIME: 7:15 AM PAGER/CONTACT #: documented in this encounterCity Hospital08-27-2024 NoteHNO ID: [id number] Author: SAHARA CHE RT (R) Service: Nuclear [...] PATIENT PRESENTS WITH AN IMPLANTABLE OR ATTACHED CHECKERING MACHINE OPERATOR: No CREATININE: Creatinine Date Value Ref Range [...] DIAGNOSTIC CT PERFORMED: No IV SITE: Ambulatory: IN only - direct IV injection in the Right antecubital site POST EXAM PIV STATUS: Discontinued PROCEDURE TYPE: NM INJECT: PET/CT BODY SCAN. 6.8 mCi F18 FDG. No other medications given.. ADMINISTRATION TIME: 0657 PATIENT DISCHARGED TO: Ambulatory patient, left IN department area. A Diagnostic radioactive procedure has taken place, with no further precautions necessary other than routine body substance precautions. More information regarding radiation safety can be found using this link: [email or web address] 20Diagnostic%20Nuclear%20Medicine%20Procedures.pdf SIGNATURE: RT Rakan(R) PATIENT NAME: Beatris Quinn DATE: April 21, 2024 TIME: 7:15 AM [phone] Telephone encounter Note * Telephone Encounter - Cristal Llanos - 04/10/2024 4:20 PM EDT Patient called back and stated that the order needed to be faxed to the PET scan company at [phone]. Order faxed. [facility]24 Miscellaneous Notes* Telephone Encounter - Cristal Llanos - 04/10/2024 4:20 PM EDT Patient called back and stated that the order needed to be faxed to the PET scan company at [phone]. Order faxed. * Telephone Encounter - Rosaura Addison - 04/10/2024 2:28 PM EDT PT returned call to the office. For financial reasons, PT is opting to have PET scan at [facility]. Faxed order to [phone]. * Telephone Encounter - Tigre Restrepo MD - 04/10/2024 1:45 PM EDT I called the patient and left him a voice message regarding abnormal ct chest. We need to proceed with PET scan documented in this encounterCity Hospital08-16-2024 Telephone encounter Note * Telephone Encounter - Rosaura Addison - 04/10/2024 2:28 PM EDT PT returned call to the office. For financial reasons, PT is opting to have PET scan at [facility]. Faxed order to [phone]. [facility] Telephone encounter Note* Telephone Encounter - Tigre Restrepo MD - 04/10/2024 1:45 PM EDT I called the patient and left him a voice message regarding abnormal ct chest. We need to proceed with PET scan [facility] Work Phone: 1(147) 945-490208-02-2024 Telephone encounter Note* Telephone Encounter - Tigre Restrepo MD - 03/27/2024 3:[address] chest with no PE Multiple lung nodules, largest is a EDWIN mass 3 cm concerning for lung cancer Plan for pet scan then biopsy I called the patient but he did not fern picker Please schedule him for a virtual visit kerry or a phone encounter to discuss the ct chest results I also put him for a pet scan kerry Thanks nh [facility]08-02-2024 Miscellaneous Notes* Telephone Encounter - Tigre Restrepo MD - 03/27/2024 3:[address] chest with no PE Multiple lung nodules, largest is a EDWIN mass 3 cm concerning for lung cancer Plan for pet scan then biopsy I called the patient but he did not fern picker Please schedule him for a virtual visit kerry or a phone encounter to discuss the ct chest results I also put him for a pet scan kerry Thanks ma documented in this encounterCity Hospital08-02-2024 History of Present illness Narrative* Symone Daniels, [...] PATIENT PRESENTS WITH AN IMPLANTABLE OR ATTACHED CHECKERING MACHINE OPERATOR: No ALLERGIES: Reviewed and unchanged CONTRAST ALLERGY: [...] 2024 TIME: 2:01 PM documented in this encounterCity Hospital07-31-2024 Telephone encounter Note * Telephone Encounter - Sandra Shelton LPN - 03/25/2024 11:[address] scan report from [facility] received from dr restrepo and sent to scanning. [facility]24 Miscellaneous Notes* Telephone Encounter - Sandra Shelton LPN - 03/25/2024 11:[address] scan report from [facility] received from dr restrepo and sent to scanning. 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 So he rescheduled till Saturday here for [place] 03/27/24 @ 9:40am.. per his choice of date [facility] Miscellaneous Notes* Telephone Encounter - Roz Farias PSS - 03/25/2024 9:05 AM EDT Pt was here for a CT scan today 03/25/24 in [place] @ 8:40am, pt ate at 5:30am and was not suppose to eat or drink for 4 hours before.. so I told the pt to wait till 9:30am and we will do him.. 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 So he rescheduled till Saturday here for [place] 03/27/24 @ 9:40am.. per his choice of date documented in this encounterCity Hospital07-30-2024 History of Present illness Narrative* Tigre Restrepo [...] environmental allergies, mild CAD, recent trip to [place] by bus, hernia surgery while in [place] 01/2024, found tohave lung nodules,here for evaluation. He feels fine with no complaints Sometimes he feels SOB on exertion No cough no sputum production, no fever. Ct chest 02/06/2024: Lymphadenopathy up to 14 mm Multiple nodules, some are calcified, others have neoplastic appearance, largest 89y81yn lateral segment RML. Cavitary type lesion EDWIN 15Y10PM Had lost weight since last year The [...] No significant exposure Silica: No significant exposure Greene: No significant exposure Mold: No significant exposure [...] 424 QTC Calculation (Bazett) 405 Calculated P Empire 108 Calculated R Empire 77 Calculated T Empire 71 Impression SINUS BRADYCARDIA OTHERWISE NORMAL ECG No results found for this or any previous visit (from the past 39913 hour(s)). XR CHEST 1V FRONTAL PORT Result [...] be communicated with the ordering provider via [employer] staff message or phone message by Imaging Support Services within 2 business days of report finalization. --END OF FINDING-- Parts Interpreter: NESTOR Transcribe Date/Time: Mar 11 2024 8:08A Dictated by : NICOLAS BAJWA MD This examination was interpreted and the report reviewed and electronically signed by: NCIOLAS BAJWA MD on Mar 11 2024 8:17AM EST XR CHEST 2V FRONTAL/LAT Result Date: 12/15/2023 IMPRESSION: No acute radiographic abnormality. Parts Interpreter: NESTOR Transcribe Date/Time: Dec 15 2023 1:22A [...] are calcified, others have neoplastic appearance, largest 96t71vg lateral segment RML. Cavitary type lesion EDWIN 03I42VG Multiple large opacities, one of them is cavitated Course of antibiotic Repeat ct chest - CT CHEST WO IVCON - CREATININE BLD 2. Centrilobular emphysema (HCC) - ICD9: 492.8, ICD10: J43.2 Continue Trelegy Albuterol as needed hfa/nebulizer - [id number] 3. Chest pain on breathing - ICD9: 786.52, ICD10: R07.1 R/o PE Trip by bus to [place] 01/2024 - CT CHEST W IVCON PE [...] which included preparing to see the patient, [id number]-[id number] patient care, completing clinical documentation, obtaining and/or reviewing separately obtained history, performing a medically appropriate examination, ordering medications, tests, or procedures, and independently interpreting results (not separately reported). Tigre Restrepo MD, MATT Staff, Respiratory [facility] CC: Jr Ryan, DO Fleming documented in this encounterCity Hospital07-30-2024 History of Present illness Narrative* Sandy Patel [...] PATIENT PRESENTS WITH AN IMPLANTABLE OR ATTACHED CHECKERING MACHINE OPERATOR: No RADIOLOGY DEPARTMENT: General X-ray: Exam(s) Completed: Chest X-Ray PERIPHERAL IV DATA: Not applicable SIGNED BY: Kannan Lovell March 24, 2024 10:54 AM documented in this encounterCity Hospital07-30-2024 History of Present illness Narrative* Garcia Muir RRT - 03/24/2024 10:39 AM EDT PULM FUNCTION: Provider: Tigre Restrepo MD Assisting Tech: Garcia Muir RRT Spirometry w/BD: 1 DLCO: 1 documented in this encounterCity Hospital07-10-2024 Telephone encounter Note * Telephone Encounter - Lucía Rader - 03/04/2024 12:59 PM EDT Patient's son is calling to see if patient can be seen in COPD clinic as soon as possible. Requests callback. Johnson (Son) [facility] Miscellaneous Notes* Telephone Encounter - Lucía Rader - 03/04/2024 12:59 PM EDT Patient's son is calling to see if patient can be seen in COPD clinic as soon as possible. Requests callback. Johnson (Son) documented in this encounterCity Hospital04-26-2024 Discharge summary Author Fadi Lloyd [facility] December 20, 2023 1:58pm Note Date/Time December 20, 2023 1:5 3pm [facility] Medical Records Department [address] [place] [address] Discharge Summary 12/20/23 1351 MR#: [id number] Acct: [id number] Name: BEATRIS QUINN Rep #:[id number] : 1950 72 From: Fadi Willis PCP: Dr. Jr Ryan DO Status:ADM IN [id number] Prov[facility] Date of Admission: 12/17/23 Date of [...] weeks. Patient is states that he follows zone manager Dr. 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 He is on scheduled [...] mcg/actuation aerosol inhaler (ProAir HFA) 1 inh [id number] PRN shortness of breath or wheezing 12/17/23 alprazolam 0.25 mg tablet (Xanax) 0.25 mg PO QHS anxiety 12/17/23 garlic 1,000 mg capsule 1,000 mg PO DAILY general health 12/17/23 vitamin E 268 mg (400 unit) capsule 268 mg PO DAILY general health 12/17/23 dextromethorphan-guaifenesin 30 mg-600 mg tablet extended aqgtajo21 hr (Mucinex DM) 2 tab PO BID [...] 12/18/23 15:05 RMA (Rec: 12/18/23 15:06 RMA [id number]) Nutrition Malnutrition Evidence of Malnutrition Exists Yes [...] Self Care Charges/Coding Visit Charges Inpatient E&M: 03676 Disch Hosp >30min 12/20/23 1358 <Electronically signed by Fadi Lloyd MD> Cosigner Signature (if applicable): CC: Dr. Jr Ryan DO; Dr. Fadi Lloyd MD~ Signed [facility] Work Phone: 1(585) 980-745604-26-2024 Discharge summary Author Fadi Lloyd [facility] December 20, 2023 1:51pm Note Date/Time December 20, 2023 1:4 4pm [facility] Medical Records Department [address] [place] [id number] Instructions for Home/Discharge Instructions 12/20/23 1110 MR#: [id number] Acct: [id number] Name: BEATRIS QUINN Rep #:[id number] : 1950 72 From: Fadi Willis PCP: [...] DO; Dr. Jr Ryan DO ~ Signed [facility] Work Phone: 1(620) 607-108804-25-2024 Progress note Author Fadi Lloyd [facility] December 19, 2023 2:54pm Note Date/Time December 19, 2023 7:3 3am [facility] Medical Records Department [address] [place] [address] Progress Note - Hospitalist 12/19/23 0731 MR#: [id number] Acct: [id number] Name: BEATRIS QUINN Rep #:[id number] : 1950 72 From: Fadi Willis PCP: Dr. Jr Ryan, DO Status:ADM IN Location: [facility] [place] Reason for Visit Reason for Visit: Diagnoses [...] 12/18/23 15:05 RMA (Rec: 12/18/23 15:06 RMA [id number]) Nutrition Malnutrition Evidence of Malnutrition Exists Yes [...] 95.4 H, Lymph % (Auto) 1.9 L, Marion % (Auto) 2.0, Eos % (Auto) 0.0, [...] weeks. Patient is states that he follows zone manager Dr. 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 He is on scheduled [...] full code. Charges/Coding Visit Charges Inpatient E&M: 83826 Subs Hosp L2 12/19/23 4583 <Electronically signed by Fadi Lloyd MD> Cosigner Signature (if applicable): CC: ~ Signed [facility] Work Phone: 1(954) 651-675604-24-2024 Progress note Author Fadi Lloyd [facility] December 18, 2023 4:13pm Note Date/Time December 18, 2023 10: 24am [facility] Medical Records Department [address] [place] [address] Progress Note - Hospitalist 12/18/23 1021 MR#: [id number] Acct: [id number] Name: BEATRIS QUINN Rep #:[id number] : 1950 72 From: Fadi Willis PCP: Dr. Jr Ryan, DO Status:ADM IN [place]: [facility] [id number] Reason for Visit Reason for Visit: Diagnoses [...] 85.9 H, Lymph % (Auto) 3.5 L, Marion % (Auto) 9.6, Eos % (Auto) 0.1, [...] Clarity Clear, Urine pH 6.5, Ur Specific [place] 1.010, Urine Protein 30 H, Urine Glucose [...] 95.4 H, Lymph % (Auto) 1.9 L, Marion % (Auto) 2.0, Eos % (Auto) 0.0, [...] Narrative Patient is states that he follows zone manager Dr. 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 He is on scheduled [...] 85.9 H, Lymph % (Auto) 3.5 L, Marion % (Auto) 9.6, Eos % (Auto) 0.1, [...] Clarity Clear, Urine pH 6.5, Ur Specific [place] 1.010, Urine Protein 30 H, Urine Glucose [...] 95.4 H, Lymph % (Auto) 1.9 L, Marion % (Auto) 2.0, Eos % (Auto) 0.0, [...] Calcium 9.2 Charges/Coding Visit Charges Inpatient E&M: 90884 Subs Hosp L2 12/18/23 8628 <Electronically signed by Fadi Lloyd MD> Cosigner Signature (if applicable): CC: ~ Signed [facility] Work Phone: 1(718) 831-239204-23-2024 History and physical note Author Anirudh Thompson [facility] December 17, 2023 3:30pm Note Date/Time December 17, 2023 3:3 0pm [facility] Medical Records Department [address] [place] [address] H&P Exam - Hospitalist 12/17/23 1524 MR#: [id number] Acct: [id number] Name: BEATRIS QUINN Rep #:[id number] : 1950 72 From: Anirudh Thompson DO PCP: Dr. Jr Ryan DO Status:ADM IN [place] [facility] [id number] HPI - General General Date of Service: 12/17/23 Chief Complaint: Shortness of breath HPI Narrative BEATRIS UQINN, is a 72 M who presents with [...] Patient received bronchodilators, methylprednisolone and ceftriaxone azithromycin. [facility] Medical History COPD (chronic obstructive pulmonary disease) NINILCHIK (hard of hearing) Hypertension Home Medications albuterol [...] 85.9 H, Lymph % (Auto) 3.5 L, Marion % (Auto) 9.6, Eos % (Auto) 0.1, [...] 14:46 EDT Reading Location ID and State: [facility] / [place] , Service support , Assessment & Plan [...] full code. Charges/Coding Visit Charges Inpatient E&M: 07290 Init Hosp 12/17/23 1530 <Electronically signed by Anirudh Thompson DO> Cosigner Signature (if applicable): CC: Dr. Anirudh Thompson DO; Dr. Jr Ryan DO~ Signed [facility] Work Phone: 1(467) 115-801304-23-2024 Discharge summary Author Migel Iqbal [facility] December 17, 2023 3:16pm Note Date/Time December 17, 2023 2:2 1pm [facility] Medical Records Department [address] [place] [address] Emergency Department Summary 12/17/23 MR#: [id number] Acct: [id number] Name: BEATRIS QUINN Eligio Rep #:[id number] : 1950 72 From: Migel Chen PCP: [...] 12 pounds in the past couple weeks. [facility] Medical History COPD (chronic obstructive pulmonary disease) NINILCHIK (hard of hearing) Hypertension Home Medications albuterol [...] 85.9 H Lymph % (Auto) 3.5 L Marion % (Auto) 9.6 Eos % (Auto) 0.1 [...] exacerbation, Pneumonia Disposition Disposition: Acute Care Hospital [facility] What to do if you have Problems For any increased pain, shortness of breath, bleeding, nausea or vomiting, chestpain, or any unexpected problems, contact your Primary Care Provider. Call [facility] ([phone]) or report to the closest Emergency Room. Call 911 if necessary. 12/17/23 1516 <Electronically signed by Migel Iqbal DO> Cosigner Signature (if applicable): CC: Dr. Jr Ryan DO ~ Signed [facility] Work Phone: 1(412) 761-524604-23-2024 Discharge summary Author Migel Iqbal [facility] December 17, 2023 3:16pm Note Date/Time December 17, 2023 2:2 1pm [facility] Medical Records Department [address] [address] Emergency Department Summary 12/17/23 MR#: [id number] Acct: [id number] Name: BEATRIS QUINN Rep #:[id number] : 1950 72 From: Migel Chen PCP: [...] 12 pounds in the past couple weeks. [facility] Medical History COPD (chronic obstructive pulmonary disease) NINILCHIK (hard of hearing) Hypertension Home Medications albuterol [...] 85.9 H Lymph % (Auto) 3.5 L Marion % (Auto) 9.6 Eos % (Auto) 0.1 [...] exacerbation, Pneumonia Disposition Disposition: Acute Care Hospital [facility] What to do if you have Problems For any increased pain, shortness of breath, bleeding, nausea or vomiting, chestpain, or any unexpected problems, contact your Primary Care Provider. Call [facility] ([phone]) or report to the closest Emergency Room. Call 911 if necessary. 12/17/23 8332 <Electronically signed by Migel Iqbal DO> Cosigner Signature (if applicable): CC: Dr. Jr Ryan DO ~ Signed [facility] Work Phone: 1(508) 685-352603-05-2024 Hospital Discharge instructions Additional Instructions Follow-up with your zone manager in the next 3 to 5 days. Continue your albuterol. Start your steroid burst tomorrow as you have been given a loading dose in the emergency department today.[facility] Work Phone: 1(613) 805-251111-14-2023 Discharge summary Author Jaleel Saul [facility] July 09, 2023 9:25am Note Date/Time July 09, 2023 7:25am [facility] Medical Records Department [address] [place] [address] Emergency Department Summary 07/09/23 MR#: [id number] Acct: [id number] Name: BEATRIS QUINN Rep #:[id number] : 1950 72 From: Jaleel Saul MD [...] for him. He is immune to them. [facility] Medical History COPD (chronic obstructive pulmonary disease) NINILCHIK (hard of hearing) Hypertension Home Medications albuterol [...] Pulse Ox Oxygen Delivery Method MDM MDM [facility] Narrative Medical decision making narrative: Patient is [...] ectopy. No acute ST elevation or depression. [place] interval, QRS duration and QTc normal Discharge [...] your Primary Care Provider. Call [facility] ([phone]) or report to the closest Emergency Room. Call 911 if necessary. 07/09/23 3108 <Electronically signed by Jaleel Saul MD> Cosigner Signature (if applicable): CC: Dr. Jr Ryna DO ~ Signed [facility] Work Phone: [phone] Note ORIGINAL EXAMINATION: ONE XRAY VIEW OF [...] Sign Date: 08/23/2022 11:49:31 AM Ordering Provider: [facility]12-29-2022 Note ORIGINAL EXAMINATION: ONE XRAY VIEW [...] Sign Date: 08/23/2022 11:49:31 AM Ordering Provider: [facility]10-26-2021 Hospital Discharge instructions Patient Education 06/20/2021 12:51:57 COVID-19 Prevent the Spread of COVID-19 If You Are Sick (01/12/2020)(CUSTOM) Prevent the Spread of COVID-19 If You Are Sick Accessible version: https://www.cdc.gov/coronavirus/2019-ncov/zv-cfd-uma-sick/azvzg-vuex-jyqs.html If you are sick with COVID-19 or [...] Animals if you have questions about pets: https://www.cdc.gov/coronavirus/2019ncov/faq.html#TVUFE90rmuryzi Monitor your symptoms. Common symptoms of COVID-19 [...] and need to call 911, notify the fertilizing machine operator that you have or think you [...] clean your hands with an alcohol-based hand rental salesperson that contains at least 60% alcohol. Clean your hands often. Wash your hands often with soap and water for at least 20 seconds. This is especially important after blowing your nose, coughing, or sneezing; going to the bathroom; and before eating or preparing food. Use hand rental salesperson if soap and water are not available. Use an alcohol-based hand rental salesperson with atleast 60% alcohol, covering all surfaces [...] and water or put them in the retail support specialist. Clean all high-touch surfaces everyday. Clean and [...] or body fluids on them. Use household interior design director and disinfectants. Clean the area or item [...] 06/20/2021 11:19:11 With:RADHA STAHL III, MD Address: [address] [place] [id number] [phone] When:2-[address] [facility] Consult note Author Lawrence Hernandez [facility] December 20, 2023 3:37pm Note Date/Time December 20, 2023 3:3 7pm [facility] Medical Records Department [address] [place], [place] [address] [address] Counseling Note - Pharmacy 12/20/23 1537 MR#: [id number] Acct: [id number] Name: BEATRIS QUINN Rep #:[id number] : 1950 72 From: Lawrence Hernandez PCP: Dr. Jr Ryan, DO Status:ADM IN Y [place] [facility] [id number] Pharmacy MS Med Reconciliation Pharmacy Service has performed discharge [...] mcg/actuation aerosol inhaler (ProAir HFA) 1 inh [id number] PRN shortness of breath or wheezing 12/17/23 alprazolam 0.25 mg tablet (Xanax) 0.25 mg PO QHS anxiety 12/17/23 garlic 1,000 mg capsule 1,000 mg PO DAILY general health 12/17/23 vitamin E 268 mg (400 unit) capsule 268 mg PO DAILY [facility] 12/17/23 dextromethorphan-guaifenesin 30 mg-600 mg tablet extended mwdtuxl05 hr (Mucinex DM) 2 tab PO BID [...] Signature (if applicable): Date CC: ~ Signed [facility] Work Phone: Consult note Author Niurka Quinn [facility] Note Date/Time December 02, 2024 4:33 pm [facility] Medical Records Department [address] [facility] [place] [address] Counseling Note - Pharmacy 12/02/24 1632 MR#: [id number] Acct: [id number] Name: BEATRIS QUINN Eligio Rep #:[id number] : 1950 73 From: Niurka Quinn PCP: VIVEK Yañez Status:AD M IN Y Location: [place] [id number] Service has performed discharge medication reconciliation [...] Signature (if applicable): Date CC: ~ Signed [facility] Work Phone: Consult note Author Niurka Quinn [facility] Note Date/Time June 02, 2025 12 :30pm [facility] Medical Records Department [address] [place] [address] Counseling Note - Pharmacy 06/02/25 1228 MR#: [id number] Acct: [id number] Name: BEATRIS QUINN Rep #:[id number] : 1950 74 From: Niurka Quinn PCP: VIVEK Yañez Status:AD M IN [place] [facility] [id number] Pharmacy [facility] Counseling Pharmacy Service has performed discharge medication [...] Signature (if applicable): Date CC: ~ Signed [facility] Work Phone: Discharge summary Author Todd Valdovinos [facility] Note Date/Time December 01, 2024 8:00 am [facility] Medical Records Department [address] [place] [address] Emergency Department Summary 12/01/24 MR#: [id number] Acct: [id number] Name: BEATRIS QUINN Rep #:[id number] : 1950 73 From: Todd Valdovinos DO [...] influenza which was roughly 1 year ago [facility] Medical History Aortic stenosis Elevated coronary artery calcium score Urinary retention Heart murmur Anxiety On home oxygen therapy Acute hypoxemic respiratory failure Pneumonia COPD (chronic obstructive pulmonary disease) NINILCHIK (hard of hearing) Hypertension Home Medications ?Medication [...] 91.1 H Lymph % (Auto) 3.0 L Marion % (Auto) 5.1 Eos % (Auto) 0.0 [...] process. Recommend follow-up until resolution. Reading Location: [facility] Chest x-ray as interpreted by the [...] DO [Primary Care Provider] - Print Language: Taiwanese Disposition Disposition: Acute Care Hospital [facility] What to do if you have Problems For any increased pain, shortness of breath, bleeding, nausea or vomiting, chestpain, or any unexpected problems, contact your Primary Care Provider. Call [facility] ([phone]) or report to the closest Emergency Room. Call 911 if necessary. 12/01/24 0800 <Electronically signed by Todd Valdovinos DO> Cosigner Signature (if applicable): CC: Dr. Jr Ryan DO ~ Signed [facility] Work Phone: Discharge summary Author [facility]i [facility] Note Date/Time June 01, 2025 12 :23pm [facility] Medical Records Department [address] [place] [address] Emergency Department Summary 06/01/25 MR#: [id number] Acct: [id number] Name: BEATRIS QUINN Rep #:[id number] : 1950 74 From: Vivi Chen PCP: [...] Recent immobilization, Recent surgery or Recent travel [facility] Medical History Aortic stenosis Elevated coronary artery calcium score Urinary retention Heart murmur Anxiety On home oxygen therapy Acute hypoxemic respiratory failure Pneumonia COPD (chronic obstructive pulmonary disease) NINILCHIK (hard of hearing) Hypertension Home Medications ?Medication [...] She would [facility] ensure he does not have a pulmonary emboli. This is obtained and negative for any PE. Does show bilateral pulmonary nodule superimposed on emphysematous changes. Patient be admitted to [facility] floor. Lab Data Attestation: I reviewed [...] 71.4 H Lymph % (Auto) 15.9 L Marion % (Auto) 9.4 Eos % (Auto) 2.2 [...] No new consolidation. 2. Granulomas. Reading Location: [id number] Chest CTA 06/01/25 11:12 IMPRESSION: No evidence of pulmonary embolism. Bilateral pulmonary nodules superimposed on emphysematous changes. Reading Location: [id number] Rhythm Strip Rhythm Strip: Sinus Rhythm Rate: [...] disease, Hypoxia Disposition Disposition: Acute Care Hospital [facility] What to do if you have Problems For any increased pain, shortness of breath, bleeding, nausea or vomiting, chestpain, or any unexpected problems, contact your Primary Care Provider. Call [facility] ([phone]) or report to the closest Emergency Room. Call 911 if necessary. 06/01/25 1223 <Electronically signed by Vivi Pike DO> Cosigner Signature (if applicable): CC: ROWENA FERRARO ~ Signed [facility] Work Phone: Discharge summary Author Karen Le [facility] Note Date/Time June 02, 2025 12 :27pm [facility] Medical Records Department [address] [place] [address] Discharge Summary 06/02/25 1153 MR#: [id number] Acct: [id number] Name: BEATRIS QUINN Rep #:[id number] : 1950 74 From: Karen Le DO PCP: VIVEK Yañez Status:AD M IN [place] [facility] [id number] Providers Date of Admission: 06/01/25 Date of [...] who presented to the emergency department at [facility] on 06/01/2025 with chief complaint of shortness [...] then verify that he actually follows in [place] and now as they were not pleased [...] 92.5 H, Lymph % (Auto) 4.5 L, Marion % (Auto) 2.5, Eos % (Auto) 0.0, [...] Karen Le Primary Care Provider: Michelle Ferraro SHIP WIRER Instructions Additional Instructions / Restrictions: 1. Please follow up with your zone manager in [place] in Aug as scheduled Discharge Orders/Prescriptions Prescriptions: [...] Follow Up: ROWENA FERRARO [Other] Michelle Ferraro SHIP WIRER, SHIP WIRER-C [Primary Care Provider, Medical] - Within 1 Week Disposition Disposition (needs filled in before D/C Order can be placed): Home, Self Care Charges/Coding Visit Charges Inpatient E&M: 24954 Disch Hosp >30min 06/02/25 1227 <Electronically signed by Karen Le DO> Cosigner Signature (if applicable): CC: CHUCKYC Michelle Ferraro; Dr. Karen Le DO~ Signed [facility] Work Phone: Evaluation + Plan note No data available for this section [facility] Evaluation noteNo assessment information available [facility] Work Phone: Evaluation note* Diagnosis Onset Date Resolution Status Acute hypoxemic respiratory failure acute Influenza A acute Pneumonia acute COPD exacerbation chronic COPD with acute exacerbation chronic [facility] Work Phone: Evaluation note* Diagnosis Onset Date Resolution Status Acute hypoxemic respiratory failure acute Pneumonia acute COPD exacerbation chronic [facility] Work Phone: Evaluation note* Diagnosis SOB (shortness of breath) Shortness of breath documented in this encounter [facility] note* Diagnosis SOB (shortness of breath) Shortness of breath documented in this encounter [facility] note* Diagnosis Lung nodules- Primary Other nonspecific abnormal finding of lung field Centrilobular emphysema (HCC) Other emphysema Chest pain on breathing Painful respiration Cavitary lesion of lung Other diseases of lung, not elsewhere classified Allergy to environmental factors Other allergy, other than to medicinal agents Ex-smoker Personal history of tobacco use, presenting hazards to health documented in this encounter [facility] note* Diagnosis Chest pain on breathing Painful respiration documented in this encounter [facility] note* Diagnosis Chest pain, unspecified type- Primary documented in this encounter [facility] note* Diagnosis Lung nodules- Primary Other nonspecific abnormal finding of lung field documented in this encounter [facility] note* Diagnosis Chest pain, unspecified type [facility]* Diagnosis Lung nodules- Primary Other nonspecific abnormal finding of lung field [facility]* Diagnosis Lung nodules Other nonspecific abnormal finding of lung field [facility]* Diagnosis Pulmonary emphysema, unspecified emphysema type (HCC) [facility]* Diagnosis Multiple nodules of lung- Primary Other nonspecific abnormal finding of lung field Bronchiolar disease Other diseases of trachea and bronchus [facility]* Diagnosis Multiple pulmonary nodules- Primary Other nonspecific abnormal finding of lung field Former smoker Personal history of tobacco use, presenting hazards to health Stage 4 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 ([facility]) Bronchiolar disease Other diseases of trachea and bronchus [facility]* Diagnosis Multiple nodules of lung Other nonspecific abnormal finding of lung field Bronchiolar disease Other diseases of trachea and bronchus documented [facility]* Diagnosis Coronary artery disease due to lipid rich plaque- Primary Murmur Undiagnosed cardiac murmurs Bronchiolar disease Other diseases of trachea and bronchus [facility]* Diagnosis Fungal pneumonia- Primary Other and unspecified mycoses documented [facility]* Diagnosis Murmur Undiagnosed cardiac murmurs [facility]* Diagnosis Lung nodules- Primary Other nonspecific abnormal finding of lung field Lung mass Swelling, mass, or lump in chest Invasive pulmonary aspergillosis (HCC) Allergic bronchopulmonary aspergillosis Former smoker Personal history of tobacco use, presenting hazards to health Centrilobular emphysema (HCC) Other emphysema Stage 4 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 ([facility]) Cavitary lesion of lung Other diseases of lung, not elsewhere classified Chest pain on breathing Painful respiration [facility]* Diagnosis Aspergillus (HCC)- Primary Aspergillosis [facility]* Diagnosis Pneumonia of both lungs due to Pseudomonas species, unspecified part of lung ([facility]) documented [facility]* Diagnosis Onset Date Resolution Status Admit Date Hypoxia acute December 01 8:16am Pneumonia acute December 01 8:16am Stable angina acute December 01, 2024 8:16am COPD exacerbation chronic December 012024 8:16am Hypertension chronic December 01 025 8:16am [facility] Work Phone: Evaluation note* Diagnosis Lung nodules- [...] to medicinal agents [facility] Diagnosis Lung mass Swelling, mass, or lump in chest documented [facility] this [facility] Author Anirudh Thompson [facility] December 17, 2023 3:30pm Note Date/Time December 17, 2023 3:3 0pm [facility] Medical Records Department [address] [place] [address] H&P Exam - Hospitalist 12/17/23 1524 MR#: [id number] Acct: [id number] Name: BEATRIS QUINN Rep #:[id number] : 1950 72 From: Anirudh Thompson DO PCP: Dr. Jr Ryan DO Status:ADM IN [place] [facility] [id number] HPI - General General Date of Service: [...] Patient received bronchodilators, methylprednisolone and ceftriaxone azithromycin. [facility] Medical History COPD (chronic obstructive pulmonary disease) NINILCHIK (hard of hearing) Hypertension Home Medications albuterol [...] 85.9 H, Lymph % (Auto) 3.5 L, Marion % (Auto) 9.6, Eos % (Auto) 0.1, [...] full code. Charges/Coding Visit Charges Inpatient E&M: 23883 Init Hosp L3 12/17/23 1530 <Electronically signed by Anirudh Thompson DO> Cosigner Signature (if applicable): CC: Dr. Anirudh Thompson DO; Dr. Jr Ryan DO~ Signed [facility] Work Phone: History and physical note Author Anirudh Thompson [facility] Note Date/Time December 01, 2024 8:47 am [facility] Medical Records Department [address] [facility] [place] [address] H&P Exam - Hospitalist 12/01/24 0831 MR#: [id number] Acct: [id number] Name: BEATRIS QUINN Rep #:[id number] : 1950 73 From: Anirudh Thompson DO [...] better with rest. CP does not radiate. [facility] Medical History Aortic stenosis Elevated coronary artery calcium score Urinary retention Heart murmur Anxiety On home oxygen therapy Acute hypoxemic respiratory failure Pneumonia COPD (chronic obstructive pulmonary disease) NINILCHIK (hard of hearing) Hypertension Home Medications ?Medication [...] (400 unit) capsule 268 mg PO DAILY [employer] 12/17/23 Unknown History alprazolam 0.25 mg tablet [...] 91.1 H, Lymph % (Auto) 3.0 L, Marion % (Auto) 5.1, Eos % (Auto) 0.0, [...] process. Recommend follow-up until resolution. Reading Location: [id number] Assessment & Plan Assessment/Plan (1) COPD exacerbation: [...] left main. Charges/Coding Visit Charges Inpatient E&M: 73669 Init Hosp L3 12/01/24 0847 <Electronically signed by Anirudh Thompson DO> Cosigner Signature (if applicable): CC: Dr. Anirudh Thompson DO; Dr. Jr Ryan DO~ Signed [facility] Work Phone: Hospital Discharge instructions No data available for this section [facility] Hospital Discharge instructions Additional Instructions Prednisone 40 mg a day for 1 week. Follow-up with your primary care physician or see a lung specialist a zone manager Dr. Shorty Marrero. Use inhaler as needed and if you have a nebulizer at home. You have influenza A and it caused an exacerbation of your underlying COPD. This should progressively get better.[facility] Work Phone: Hospital Discharge instructionsAdditional Instructions 1. Please follow up with your zone manager in [place] in Aug as scheduled Date of Discharge: 06/02/25[facility] Work Phone: [facility] for referral (narrative)* Diagnostic Procedure Only (Urgent) - New Request Specialty Diagnoses / Procedures Referred By Contac t Referred To Contact MOLECULAR & FUNCTIONAL IMAGING Diagnoses Lung nodules Procedures NM PET/CT SKULL-THIGH INITIAL PET IMAGING CT ATTENUATION SKULL [place] [address] [place] [address] Molecular & Functional Imaging [address] [place] [address] Referral ID Status Reason Start Date Expiration Date Visits Requested Visits Authorized [id number] New Request Auto-Generat ed Referral 03/27/2024 04/26/2025 [address] [facility] for referral (narrative)* Diagnostic Procedure Only (Urgent) - Closed Specialty Diagnoses / Procedures Referred By [facility] Referred To Contact MOLECULAR & FUNCTIONAL IMAGING Diagnoses Lung nodules Procedures NM PET/CT SKULL-THIGH INITIAL PET IMAGING CT ATTENUATION SKULL BASE [place] [address] [place] [address] Molecular & Functional Imaging [address] [place] [address] Referral ID Status Reason Start Date Expiration Date V isits Requested Visits Authorized [id number] Closed Auto-Generate d Referral 04/21/2024 08/25/2024 [address] [facility] for referral (narrative)* Outpatient Procedure (Routine) - Outside PCP Specialty Diagnoses / Procedures Referred By Contac t Referred To Contact [facility] Diagnoses Murmur Procedures ECHO ECHO TTHRC R-T 2D W/WOM-MODE COMPL SPEC&COLR D Claire Turner MD [address] [place] [address] [facility] [place] [address] [place] [address] Referral ID Status Reason Start Date Expiration Date Visits Requested Visits Authorized [id number] Outside PCP Auto-Generat ed Referral 05/22/2024 05/22/2025 [address] [facility] for referral (narrative)* Outpatient Procedure (Routine) - Closed Specialty Diagnoses / Procedures Referred By Trav oglesby Referred To Contact [facility] Diagnoses Murmur Procedures ECHO ECHO TTHRC R-T 2D W/WOM-MODE COMPL SPEC&COLR D Claire Turner MD [address] [place] [address] [facility] [place] [address] [place] [address] Referral ID Status Reason Start Date Expiration Date V isits Requested Visits Authorized [id number] Closed Auto-Generate d Referral 06/05/2024 08/25/2024 [address] [facility] for referral (narrative)No reason for referral information availableWPro[facility] Work Phone: [facility] Narrative* Diagnostic Procedure Only (Urgent) - Closed Specialty Diagnoses / Procedures Referred By Trav oglesby Referred To Contact MOLECULAR & FUNCTIONAL IMAGING Diagnoses Lung nodules Procedures NM PET/CT SKULL-THIGH INITIAL PET IMAGING CT ATTENUATION SKULL BASE MID-THIGH Tigre Restrepo MD [address] [place] [address] Molecular & Functional Imaging [address] [place] [address] Referral ID Status Reason Start Date Expiration Date V isits Requested Visits Authorized [id number] Closed Auto-Generate d Referral 04/21/2024 08/25/2024 [address] [facility] for visit Narrative* Diagnostic Procedure Only (Routine) - Denied Specialty Diagnoses / Procedures Referred By Trav oglesby Referred To Contact Radiology / RADIO [facility] Diagnoses Pulmonary emphysema, unspecified emphysema type (HCC) Pulmonary emphysema, unspecified emphysema type (HCC) [J43.9] Procedures RADIOLOGIC EXAM CHEST 2 VIEWS XR CHEST Tigre Restrepo MD [address] [place] [address] [facility] [address] [place] [address] Referral ID Status Reason Start Date Expiration Date V isits Requested Visits Authorized [id number] Denied Patient Cleared - [facility] [place] 03/24/2024 06/22/2024 [address] [facility] for visit Narrative* Outpatient Procedure (Routine) - Closed Specialty Diagnoses / Procedures Referred By Contac t Referred To Contact [facility] Diagnoses Murmur Procedures ECHO ECHO TTHRC R-T 2D W/WOM-MODE COMPL SPEC&COLR D Claire Turner MD [address] [place] [address] [facility] [place] [address] [place] [address] Referral ID Status Reason Start Date Expiration Date V isits Requested Visits Authorized [id number] Closed Auto-Generate d Referral 06/05/2024 08/25/2024 [address] [facility] for visit Narrative* MRI/CT (Routine) - Closed Specialty Diagnoses / Procedures Referred By Contac t Referred To Contact CT IMAGING Diagnoses Pneumonia of both lungs due to Pseudomonas species, unspecified part of lung (HCC) Procedures CT CHEST WO IVCON DIAGNOSTIC COMPUTED TOMOGRAPHY THORAX [place] [address] [place] [address] Phone: tel: fax: CT IMAGING [facility] Referral ID Status Reason Start Date Expiration Date V isits Requested Visits Authorized [id number] Closed Auto-Generate d Referral OON/Self Pay Override 10/16/2024 08/25/2025 [address] [facility] for visit Narrative* MRI/CT (Routine) - Closed Specialty Diagnoses / Procedures Referred By Contac t Referred To Contact CT IMAGING Diagnoses Lung mass Procedures CT CHEST WO IVCON DIAGNOSTIC COMPUTED TOMOGRAPHY THORAX W/O Tigre Alarcon MD [address] [place] [address] Phone: tel: fax: [place] [address] Referral ID Status Reason Start Date Expiration Date V isits Requested Visits Authorized [id number] Closed Auto-Generate d Referral 04/16/2025 08/25/2025 1 1 [facility] Purpose Family History No Family History Records FoundNo Family History Records FoundNo Family History Records FoundNo Family History Records FoundNo Family History Records FoundNo Family History Records Found Advance Directives No Advanced Directives Records Found Advance Directive Response Recorded Date/ Time Living Will No May 01 5:18am Power of Powdered Metal Supervisor No May 01, 2021 5:18am Advance Directive Response Recorded Date/ Time Living Will No August 23 8:27pm Power of Powdered Metal Supervisor No August 23, 2022 8:27pm Advance Directive Response Recorded Date/ Time Living Will No August 26 10:56am Power of Powdered Metal Supervisor No August 26 10:56am Advance Directive Response Recorded Date/ Time Living Will No August 26 1:51pm Power of Powdered Metal Supervisor No August 26 1:51pm Advance Directive Response Recorded Date/ Time Living Will No August 26 2:51pm Power of Powdered Metal Supervisor No August 26 2:51pm Advance Directive Response Recorded Date/ Time Living Will Yes July 09 7:09am Power of Powdered Metal Supervisor Yes July 09, 2023 7:09am Name of Medical Power of Powdered Metal Supervisor July 09, 2023 7:09am Advance Directive Response Recorded Date/ Time Name of Medical Power of Powdered Metal Supervisor July 09, 2023 7:09am Living Will No October 29, 2023 6:55am Power of Powdered Metal Supervisor No October 28 6:55am Advance Directive Response Recorded Date/ Time Living Will No December 11, 2023 10:10am Power of Powdered Metal Supervisor No December 10 10:10am Advance Directive Response Recorded Date/ Time Living Will No December 17, 2023 1:34pm Power of Powdered Metal Supervisor No December 16 1:34pm Advance Directive Response Recorded Date/ Time Living Will No December 17, 2023 4:06pm Power of Powdered Metal Supervisor No December 16 4:06pm Advance Directive Response Recorded Date/ Time Living Will Yes December 01, 2024 6:32am Do you have a Healthcare Power of Powdered Metal Supervisor? Yes December 01, 2024 6:32am Name of Medical Power of Powdered Metal Supervisor December 01, 2024 6:32am Advance Directives No March 02 9:01am Advance Directive Response Recorded Date/ Time Living Will Yes December 01, 2024 9:18am Do you have a Healthcare Power of Powdered Metal Supervisor? Yes December 01, 2024 9:18am Name of Medical Power of Powdered Metal Supervisor December 01, 2024 9:18am Advance Directives No March 02 9:01am Advance Directive Response Recorded Date/ Time Do you have a Healthcare Power of Powdered Metal Supervisor? No June 01, 2025 7:51am Advance Directives No March 02 9:01am Advance Directive Response Recorded Date/ Time Do you have a Healthcare Power of Powdered Metal Supervisor? No June 01, 2025 1:35pm Advance Directives [...] pneumonia Procedures CONSULT TO INFECTIOUS DISEASES OFFICE/OUTPATIENT [facility] 60 MINUTES Tigre Restrepo MD [address] [place] [address] Referral ID Status Reason Start Date Expiration Date Visits Requested Visits Authorized [id number] Authorized PCP Requested Referral 05/28/2024 05/28/2025 1 1 Specialty Diagnoses / Procedures Referred By Contac t Referred To Contact CT IMAGING Diagnoses Multiple nodules of lung Procedures CT CHEST WO IVCON DIAGNOSTIC COMPUTED TOMOGRAPHY THORAX W/O CNTRST Mehreen Crow MD [address] [place] [address] [facility] [place] [address] Referral ID Status Reason Start Date Expiration Date Visits Requested Visits Authorized [id number] Authorized Auto-Generat ed Referral 05/15/2024 08/25/2024 1 1 Specialty Diagnoses / Procedures Referred By Contac t Referred To Contact CT IMAGING Diagnoses Chest pain, unspecified type Procedures CT CHEST W IVCON PE DIAGNOSTIC COMPUTED TOMOGRAPHY THORAX W/CONTRAST Tigre Restrepo MD [address] [place] [address] [facility] [place] [address] Referral ID Status Reason Start Date Expiration Date V isits Requested Visits Authorized [id number] Closed Auto-Generate d Referral 03/26/2024 04/25/2025 1 1 Specialty Diagnoses / Procedures Referred By Contac t Referred To Contact CT IMAGING Diagnoses Chest pain on breathing Procedures CT CHEST W IVCON PE DIAGNOSTIC COMPUTED TOMOGRAPHY THORAX W/CONTRAST Tigre Restrepo MD [address] [place] [address] Ct Imaging [facility] Referral ID Status Reason Start Date Expiration Date Visits Requested Visits Authorized [id number] Pending Review Auto-Generat ed Referral 03/24/2024 04/23/2025 1 1 Specialty Diagnoses / Procedures Referred By Trav t Referred To Contact CT IMAGING Diagnoses Lung nodules Procedures CT CHEST WO IVCON DIAGNOSTIC COMPUTED TOMOGRAPHY THORAX W/O CNTRST Tigre Restrepo MD [address] [place] [address] [place] [address] Referral ID Status Reason Start Date Expiration Date Visits Requested Visits Authorized [id number] New Request Auto-Generat ed Referral 03/24/2024 04/23/2025 1 1 Additional Source Comments (unrecognized sect ion and content) No Status Records FoundNo Status Records FoundNo Status Records FoundNo Status Records FoundNo Status Records FoundNo Status Records Found INFORMATION SOURCE (unrecogn ized section and content) DATE CREATED AUTHOR 11/26/2020 [facility] DATE CREATED AUTHOR AUTHOR'S ORGANIZ ATION 09/11/2022 [facility] DATE CREATED AUTHOR AUTHOR'S ORGANIZ ATION 12/15/2023 [facility] DATE CREATED AUTHOR AUTHOR'S ORGANIZ ATION 04/18/2025 [facility] DATE CREATED AUTHOR AUTHOR'S ORGANIZ ATION 06/11/2025 [facility] DATE CREATED AUTHOR AUTHOR'S ORGANIZ ATION 06/24/2025 [facility] Goals (unrecognized section and content) Type Treatment Intervention Code Status: Full Code - Verified Goals may be documented in an alternate section Care Team (unrecognized sect ion and content) Care Team Personnel Name: RADHA STAHL III, MD Member Role: Primary Care Physician Address: Address: [address] [place] [id number]- [place] Name: JUAN CHESTER [place] Position: ED Physician Heel Dipper Member Role: ED PA Address: Address: [address] [place], [place] [address] [address]- Care Team Related Persons Name: SHAHBAZ QUINN Address: Home [address] [place] [address] [place] Care Teams (unrecognized sec tion and [...] MD Attending Provider, Emergency Pro vider Active Commercial Appraiser Relationship Specialty [place] [address] [address] PCP - General Internal Medicine 11/17/21 Commercial Appraiser Relationship Specialty [place] [address] [place] [address] PCP - General Internal Medicine 11/17/21 Commercial Appraiser Relationship Specialty [place] [address] [address] PCP - General Internal Medicine 11/17/21 Commercial Appraiser Relationship Specialty [place] [address] [address] PCP - General Internal Medicine 11/17/21 Commercial Appraiser Relationship Specialty [place] [address] [address] PCP - General Internal Medicine 11/17/21 Commercial Appraiser Relationship Specialty Start Date End Date Jr Ryan, [address] [address] PCP - General Internal Medicine 11/17/21 Commercial Appraiser Relationship Specialty [place] [address] [address] PCP - General Internal Medicine 11/17/21 Commercial Appraiser Relationship Specialty Start [place] [address] [address] PCP - General Internal Medicine 11/17/21 Commercial Appraiser Relationship Specialty [place] [address] [place] [address] PCP - General Internal Medicine 11/17/21 Commercial Appraiser Relationship Specialty [place] [address] [place] [address] PCP - General Internal Medicine 11/17/21 Commercial Appraiser Relationship Specialty [place] [address] [place] [address] PCP - General Internal Medicine 11/17/21 Commercial Appraiser Relationship Specialty [place] [address] [place] [address] PCP - General Internal Medicine 11/17/21 Commercial Appraiser Relationship Specialty [place] [address] [place] [id number] PCP - General Internal Medicine 11/17/21 Commercial Appraiser Relationship Specialty Start Date End Date Jr Ryan, [address] [place] [address] PCP - General Internal Medicine 11/17/21 Commercial Appraiser Relationship Specialty [place] [address] [place] [id number] PCP - General Internal Medicine 11/17/21 Commercial Appraiser Relationship Specialty [place] [address] [address] PCP - General Internal Medicine 11/17/21 Commercial Appraiser Relationship Specialty [place] [address] [address] PCP - General Internal Medicine 11/17/21 Commercial Appraiser Relationship Specialty [place] [address] [address] PCP - General Internal Medicine 11/17/21 Commercial Appraiser Relationship Specialty [place] [address] [address] PCP - General Internal Medicine 11/17/21 Team [...] Active Member Role Status Dates Michelle Ferraro SHIP WIRER, SHIP WIRER-C Primary Care Provider Activ e Team Status: Inactive Member Role Status Dates Dr. Todd Valdovinos , Emergency Provider Active Start: December 01, 2024 End: December 02, 2024 Dr. Anirudh Thompson , Admit Provider Active Star t: December 01, 2024 End: December 02, 2024 Dr. Anirudh Thompson DO Attending Provider Active Start: December 01, 2024 End: December 02, 2024 Michelle Ferraro SHIP WIRER, SHIP WIRER-C Primary Care Provider Activ e Start: December [...] Star t: December 02, 2024 Michelle Ferraro SHIP WIRER, SHIP WIRER-C Primary Care Provider Activ e Start: December 02, 2024 Team Status: Active Member Role Status Dates Dr. Todd Valdovinos DO Emergency Provider Active Start: December 02, 2024 Dr. Anirudh Thompson DO Admit Provider Active Star t: December 02, 2024 Dr. Anirudh Thompson DO Other Provider Active Star t: December 02, 2024 Michelle Ferraro SHIP WIRER, SHIP WIRER-C Primary Care Provider Activ e Start: December 02, 2024 Dr. Eh Castellon MD Attending Provider Active S tart: December 02, 2024 Commercial Appraiser Relationship Specialty [place] [address] [address] PCP - General Internal Medicine 11/17/21 Team Status: Active Member Role/Relationship Status Dates Michelle Ferraro SHIP WIRER, SHIP WIRER-C Primary care physician Acti ve Team Status: Active Member Role/Relationship Status Dates Dr. Vivi Pike DO Emergency Departm ent Physician Active Start: June 01, 2025 Michelle Ferraro SHIP WIRER, SHIP WIRER-C Primary care physician Active Start: May Dr. Karen Le , Admitting physician Active Start: June 01, 2025 Dr. Karen Le DO Attending physician Active Start: June 01, 2025 Team Status: Inactive Member Role/Relationship Status Dates Dr. Vivi Pike DO Emergency Departm ent Physician Active Start: June 01, 2025 End: June 02, 2025 Michelle Ferraro SHIP WIRER, SHIP WIRER-C Primary care physician Active Start: May End: [...] Active Start: June 02, 2025 Michelle Ferraro SHIP WIRER, SHIP WIRER-C Primary care physician Active Start: May Dr. [...] or prosecute any alcohol or drug abuse patient.[facility] HospitalIn the event this information is protected by the Federal Confidentiality of Alcohol and Drug Abuse Patient Records regulations: The Federal rules restrict any use of the information to criminally investigate or prosecute any alcohol or drug abuse patient.[facility] HospitalIn the event this information is protected by the Federal Confidentiality of Alcohol and Drug Abuse Patient Records regulations: The Federal rules restrict any use of the information to criminally investigate or prosecute any alcohol or drug abuse patient.[facility] HospitalIn the event this information is protected by the Federal Confidentiality of Alcohol and Drug Abuse Patient Records regulations: The Federal rules restrict any use of the information to criminally investigate or prosecute any alcohol or drug abuse patient.[facility] HospitalIn the event this information is protected by the Federal Confidentiality of Alcohol and Drug Abuse Patient Records regulations: The Federal rules restrict any use of the information to criminally investigate or prosecute any alcohol or drug abuse patient.[facility] HospitalIn the event this information is protected by the Federal Confidentiality of Alcohol and Drug Abuse Patient Records regulations: The Federal rules restrict any use of the information to criminally investigate or prosecute any alcohol or drug abuse patient.[facility] HospitalIn the event this information is protected by the Federal Confidentiality of Alcohol and Drug Abuse Patient Records regulations: The Federal rules restrict any use of the information to criminally investigate or prosecute any alcohol or drug abuse patient.[facility] HospitalIn the event this information is protected by the Federal Confidentiality of Alcohol and Drug Abuse Patient Records regulations: The Federal rules restrict any use of the information to criminally investigate or prosecute any alcohol or drug abuse patient.[facility] HospitalIn the event this information is protected by the Federal Confidentiality of Alcohol and Drug Abuse Patient Records regulations: The Federal rules restrict any use of the information to criminally investigate or prosecute any alcohol or drug abuse patient.[facility] HospitalIn the event this information is protected by the Federal Confidentiality of Alcohol and Drug Abuse Patient Records regulations: The Federal rules restrict any use of the information to criminally investigate or prosecute any alcohol or drug abuse patient.[facility] HospitalIn the event this information is protected by the Federal Confidentiality of Alcohol and Drug Abuse Patient Records regulations: The Federal rules restrict any use of the information to criminally investigate or prosecute any alcohol or drug abuse patient.[facility] HospitalIn the event this information is protected by the Federal Confidentiality of Alcohol and Drug Abuse Patient Records regulations: The Federal rules restrict any use of the information to criminally investigate or prosecute any alcohol or drug abuse patient.[facility] HospitalIn the event this information is protected by the Federal Confidentiality of Alcohol and Drug Abuse Patient Records regulations: The Federal rules restrict any use of the information to criminally investigate or prosecute any alcohol or drug abuse patient.[facility] HospitalIn the event this information is protected by the Federal Confidentiality of Alcohol and Drug Abuse Patient Records regulations: The Federal rules restrict any use of the information to criminally investigate or prosecute any alcohol or drug abuse patient.[facility] HospitalIn the event this information is protected by the Federal Confidentiality of Alcohol and Drug Abuse Patient Records regulations: The Federal rules restrict any use of the information to criminally investigate or prosecute any alcohol or drug abuse patient.[facility] HospitalIn the event this information is protected by the Federal Confidentiality of Alcohol and Drug Abuse Patient Records regulations: The Federal rules restrict any use of the information to criminally investigate or prosecute any alcohol or drug abuse patient.[facility] HospitalIn the event this information is protected by the Federal Confidentiality of Alcohol and Drug Abuse Patient Records regulations: The Federal rules restrict any use of the information to criminally investigate or prosecute any alcohol or drug abuse patient.[facility] HospitalIn the event this information is protected by the Federal Confidentiality of Alcohol and Drug Abuse Patient Records regulations: The Federal rules restrict any use of the information to criminally investigate or prosecute any alcohol or drug abuse patient.[facility] HospitalIn the event this information is protected by the Federal Confidentiality of Alcohol and Drug Abuse Patient Records regulations: The Federal rules restrict any use of the information to criminally investigate or prosecute any alcohol or drug abuse patient.[facility] HospitalIn the event this information is protected by the Federal Confidentiality of Alcohol and Drug Abuse Patient Records regulations: The Federal rules restrict any use of the information to criminally investigate or prosecute any alcohol or drug abuse patient.[facility] HospitalIn the event this information is protected by the Federal Confidentiality of Alcohol and Drug Abuse Patient Records regulations: The Federal rules restrict any use of the information to criminally investigate or prosecute any alcohol or drug abuse patient.[facility] HospitalIn the event this information is protected by the Federal Confidentiality of Alcohol and Drug Abuse Patient Records regulations: The Federal rules restrict any use of the information to criminally investigate or prosecute any alcohol or drug abuse patient.[facility] HospitalIn the event this information is protected by the Federal Confidentiality of Alcohol and Drug Abuse Patient Records regulations: The Federal rules restrict any use of the information to criminally investigate or prosecute any alcohol or drug abuse patient.[facility] HospitalIn the event this information is protected by the Federal Confidentiality of Alcohol and Drug Abuse Patient Records regulations: The Federal rules restrict any use of the information to criminally investigate or prosecute any alcohol or drug abuse patient.[facility] HospitalIn the event this information is protected by the Federal Confidentiality of Alcohol and Drug Abuse Patient Records regulations: The Federal rules restrict any use of the information to criminally investigate or prosecute any alcohol or drug abuse patient.[facility] HospitalIn the event this information is protected by the Federal Confidentiality of Alcohol and Drug Abuse Patient Records regulations: The Federal rules restrict any use of the information to criminally investigate or prosecute any alcohol or drug abuse patient.[facility] HospitalIn the event this information is protected by the Federal Confidentiality of Alcohol and Drug Abuse Patient Records regulations: The Federal rules restrict any use of the information to criminally investigate or prosecute any alcohol or drug abuse patient.[facility] HospitalIn the event this information is protected by the Federal Confidentiality of Alcohol and Drug Abuse Patient Records regulations: The Federal rules restrict any use of the information to criminally investigate or prosecute any alcohol or drug abuse patient.[facility] HospitalIn the event this information is protected by the Federal Confidentiality of Alcohol and Drug Abuse Patient Records regulations: The Federal rules restrict any use of the information to criminally investigate or prosecute any alcohol or drug abuse patient.[facility] HospitalIn the event this information is protected by the Federal Confidentiality of Alcohol and Drug Abuse Patient Records regulations: The Federal rules restrict any use of the information to criminally investigate or prosecute any alcohol or drug abuse patient.[facility] HospitalIn the event this information is protected by the Federal Confidentiality of Alcohol and Drug Abuse Patient Records regulations: The Federal rules restrict any use of the information to criminally investigate or prosecute any alcohol or drug abuse patient.[facility] HospitalIn the event this information is protected by the Federal Confidentiality of Alcohol and Drug Abuse Patient Records regulations: The Federal rules restrict any use of the information to criminally investigate or prosecute any alcohol or drug abuse patient.[facility] HospitalIn the event this information is protected by the Federal Confidentiality of Alcohol and Drug Abuse Patient Records regulations: The Federal rules restrict any use of the information to criminally investigate or prosecute any alcohol or drug abuse patient.[facility] HospitalIn the event this information is protected by the Federal Confidentiality of Alcohol and Drug Abuse Patient Records regulations: The Federal rules restrict any use of the information to criminally investigate or prosecute any alcohol or drug abuse patient.[facility] HospitalIn the event this information is protected by the Federal Confidentiality of Alcohol and Drug Abuse Patient Records regulations: The Federal rules restrict any use of the information to criminally investigate or prosecute any alcohol or drug abuse patient.[facility] HospitalIn the event this information is protected by the Federal Confidentiality of Alcohol and Drug Abuse Patient Records regulations: The Federal rules restrict any use of the information to criminally investigate or prosecute any alcohol or drug abuse patient.[facility] HospitalIn the event this information is protected by the Federal Confidentiality of Alcohol and Drug Abuse Patient Records regulations: The Federal rules restrict any use of the information to criminally investigate or prosecute any alcohol or drug abuse patient.[facility] HospitalIn the event this information is protected by the Federal Confidentiality of Alcohol and Drug Abuse Patient Records regulations: The Federal rules restrict any use of the information to criminally investigate or prosecute any alcohol or drug abuse patient.[facility] HospitalIn the event this information is protected by the Federal Confidentiality of Alcohol and Drug Abuse Patient Records regulations: The Federal rules restrict any use of the information to criminally investigate or prosecute any alcohol or drug abuse patient.[facility] HospitalIn the event this information is protected by the Federal Confidentiality of Alcohol and Drug Abuse Patient Records regulations: The Federal rules restrict any use of the information to criminally investigate or prosecute any alcohol or drug abuse patient.[facility] HospitalIn the event this information is protected by the Federal Confidentiality of Alcohol and Drug Abuse Patient Records regulations: The Federal rules restrict any use of the information to criminally investigate or prosecute any alcohol or drug abuse patient.[facility] HospitalIn the event this information is protected by the Federal Confidentiality of Alcohol and Drug Abuse Patient Records regulations: The Federal rules restrict any use of the information to criminally investigate or prosecute any alcohol or drug abuse patient.[facility] HospitalIn the event this information is protected by the Federal Confidentiality of Alcohol and Drug Abuse Patient Records regulations: The Federal rules restrict any use of the information to criminally investigate or prosecute any alcohol or drug abuse patient.[facility] HospitalIn the event this information is protected by the Federal Confidentiality of Alcohol and Drug Abuse Patient Records regulations: The Federal rules restrict any use of the information to criminally investigate or prosecute any alcohol or drug abuse patient.[facility] Reason for Visit (unrecogniz ed section and content) Reason Comments Referral Request Reason Comments Spirometry Specialty Diagnoses / Procedures Referred By Contac t Referred To [facility] Diagnoses SOB (shortness of breath) Procedures SPIROMETRY WITH DILATOR IF OBSTRUCTED BRNCDILAT RSPSE SPMTRY PRE&POST-BRNCDILAT ADMN Annette Marrero MD [address] [place] [address] [address] Referral ID Status Reason Start Date Expiration Date V isits Requested Visits Authorized [id number] Denied Patient Cleared - [facility] [place] 03/06/2024 04/04/2025 1 0 Specialty Diagnoses / Procedures Referred By Contac t Referred To Contact [facility] Diagnoses SOB (shortness of breath) Procedures LUNG DIFFUSION CAPACITY (DLCO) DIFFUSING CAPACITY Annette Marrero MD [address] [place] [address] [address] Referral ID Status Reason Start Date Expiration Date V isits Requested Visits Authorized [id number] Denied Patient Cleared - [facility] [place] 03/24/2024 08/25/2024 1 0 Reason Comments Consult copd - pfts and cxr done Specialty Diagnoses / Procedures Referred By Contac t Referred To Contact Pulmonary and Critical Care Medicine / PULMONARY MEDICINE Diagnoses Provider: Any Staff Assignment Desk Assistant Appointment Type: [id number] (In Person) Location: Patient preference Visit Type: NEW Diagnosis: COPD Appointment Time Frame: Other: Per patient's convenience ([place], [place], [place], [place]) Testing Needed: TESTS: Any that are required. Patient has not been seen by pulmonary at [facility]. Staff msg Procedures OFFICE/OUTPATIENT NEW MODERATE MDM 45 MINUTES RI NEW COPD Self Tigre Restrepo MD [address] [place] [address] Referral ID Status Reason Start Date Expiration Date V isits Requested Visits Authorized [id number] Denied Patient Cleared - [facility] [place] 03/24/2024 06/22/2024 1 0 Reason Comments Received Outside Medical Records immunit y therapy center Reason Comments Patient Update Reason Comments Radiology CT Specialty Diagnoses / Procedures Referred By Contac t Referred To Contact CT IMAGING Diagnoses Chest pain on breathing Procedures CT CHEST W IVCON PE DIAGNOSTIC COMPUTED TOMOGRAPHY THORAX W/CONTRAST Tigre Restrepo MD [address] [place] [address] Ct Imaging [facility] Referral ID Status Reason Start Date Expiration Date Visits Requested Visits Authorized [id number] Authorized Patient Cleared - [facility] 03/24/2024 04/23/2025 1 2 Reason Comments [...] TOMOGRAPHY THORAX W/O CNTEMMANUELLET Mehreen Crow MD [address] [place] [address] Ct Imaging [place] [address] Referral ID Status Reason Start Date Expiration Date V isits Requested Visits Authorized [id number] Closed Auto-Generate d Referral 05/15/2024 08/25/2024 1 [...] Diagnoses COPD Procedures RI EST COPD [facility] [place] [address] [place] [address] Phone: tel: Tigre Restrepo MD [address] [place] [address] Phone: tel: fax: Referral ID Status Reason Start Date Expiration Date Visits Re quested Visits Authorized [id number] Closed 10/16/2024 08/25/2025 1 1 Reason Comments LMTCB Patient Request Message regarding ID Reason Comments COPD FOLLOW UP Specialty Diagnoses / Procedures Referred By Contac t Referred To Contact Pulmonary and Critical Care Medicine / PULMONARY MEDICINE Diagnoses COPD Procedures RI EST COPD [facility] [address] [place] [address] Phone: tel: Tigre Restrepo MD [address] [place] [address] Phone: tel: fax: FOR RECORDS PERTAINING TO [...] BE BASED ON THE PRIMARY CLINICAL RECORDS. [facility]. provides no warranty or guarantee of the accuracy or completeness of information in this document.
--- NOTE | 2025-08-04 22:17 | RAD_ITS ---
PROCEDURE: CHEST 1 VIEW (PORTABLE) 08/04/2025 REASON FOR EXAM: SHORTNESS OF BREATH TECHNIQUE: Frontal view of the chest. COMPARISON: Chest x-ray and CT thorax 07/16/2025. FINDINGS: Lungs/Pleura: Chronic interstitial emphysematous lung changes and scattered reticular scarring. No focal consolidation, pneumothorax or sizable pleural effusion. Multiple scattered pulmonary nodules, the largest in the left upper lung zone measuring 2.1 cm, grossly stable. Heart/Mediastinum: Within normal limits. No significant vascular congestion. Bones/Soft tissues: Degenerative changes of the spine and bilateral shoulders. RAD/Chest 1 View (Portable) IMPRESSION: 1. No evidence of acute cardiopulmonary disease. 2. Chronic interstitial emphysematous lung changes. 3. Multiple scattered pulmonary nodules, the largest in the left upper lung viviane suring 2.1 cm, grossly stable but better assessed on prior chest CT. Reading Location: [id number]
[2025-08-04 22:19] VITALS: BP 118/94; PULSE 106; RESP 26; O2SAT 97
[2025-08-04 22:43] LABS: Hematocrit 39.6 % (40-54); Hemoglobin 12.8 g/dL (13.0-16.5); Immature Granulocytes Count 0.170 X10^3/uL (0.0-0.0); Mean Corp Hgb Conc 32.3 g/dL (32-36); Mean Corpuscular Volume 87.6 fL (80-94); Mean Platelet Vol. 9.2 fl (6.2-12.0); NRBC Flagged by Analyzer 0 % (0-5); POSITIVE DIFFERENTIAL YES; Platelet Count 366 K/mm3 (150-450); RBC Distribution Width CV 13.6 % (11.6-14.6); RBC Distribution Width SD 43.8 fl (35.1-43.9); Red Blood Count 4.52 M/mm3 (4.6-6.2); White Blood Count 24.9 K/mm3 (4.4-11.0)
--- NOTE | 2025-08-04 22:50 | EX.ED.DYSGE1 ---
HPI History of Present Illness Chief Complaint: Shortness of Breath PFSH PFSH Medical History Pulmonary nodules Elevated troponin COPD (chronic obstructive pulmonary disease) Hypertension Aortic stenosis Elevated coronary artery calcium score Urinary retention Heart murmur Anxiety On home oxygen therapy Acute hypoxemic respiratory failure Pneumonia COPD (chronic obstructive pulmonary disease) ALUTIIQ (hard of hearing) Hypertension Home Medications ?Medication ?Instructions ?Recorded ?Last Taken ?Type amlodipine 5 mg tablet 5 mg PO DAILY blood pressure 03/06/21 06/01/25 History albuterol sulfate 2.5 mg/3 mL 2.5 mg (3 mL) inhalation Q4H PRN 12/11/23 06/01/25 Rx (0.083 %) solution for nebulization #25 vials garlic 1,000 mg capsule 1,000 mg PO DAILY general health 12/17/23 Unknown History vitamin E 268 mg (400 unit) capsule 268 mg PO DAILY blood clot 12/17/23 06/01/25 History prevention alprazolam 0.25 mg tablet (Xanax) 0.375 mg PO QHS anxiety 02/28/24 05/31/25 History fluticasone fur. 100 mcg-umeclid 1 inh inhalation DAILY 02/28/24 06/01/25 History 62.5 mcg-vilant 25 mcg inhalat.powder (Trelegy Ellipta) albuterol sulfate 90 mcg/actuation 1 inh inhalation Q6H PRN shortness 12/01/24 05/31/25 History aerosol inhaler of breath or wheezing prednisone 5 mg tablet 5 mg PO DAILY PRN sob 06/01/25 05/31/25 History zolpidem 10 mg tablet (Ambien) 10 mg PO QHS 08/04/25 Unknown History Allergy/AdvReac Type Severity Reaction Status Date / Time No Known Allergies Allergy Verified 08/04/25 21:25 Surgical History Hx of hernia repair History of replacement of both shoulder joints Social History household members: spouse housing: house Smoking Status: Former smoker alcohol intake: never substance use type: does not use EXAM Physical Exam Const Vital Signs: 08/04/25 21:20 08/04/25 21:20 08/04/25 21:34 Temperature 97.5 F L Temperature Source Oral Pulse Rate 108 H 110 H Respiratory Rate 25 H 28 H Respiratory Effort Respiratory Depth Blood Pressure 161/103 H Blood Pressure Mean 122 Pulse Ox 100 100 99 Oxygen Delivery Method Non-Rebreather Bi-pap Fraction of Inspired Oxygen (FIO2) 30 30 08/04/25 21:37 08/04/25 22:19 08/04/25 23:00 Temperature 98.1 F Temperature Source Temporal Pulse Rate 106 H 89 Respiratory Rate 26 H 22 H Respiratory Effort Short of Breath Labored Nasal Flaring Respiratory Depth Deep Blood Pressure 118/94 H 109/77 Blood Pressure Mean 102 87 Pulse Ox 97 98 Oxygen Delivery Method Bi-pap Bi-pap Bi-pap Fraction of Inspired Oxygen (FIO2) 30 30 30 MDM MDM MDM Narrative Medical decision making narrative: HISTORY OF PRESENT ILLNESS: Chief complaint: Shortness of 74-year-old male history of COPD this with acute onset of shortness of breath tonight. Accompanied by his son. Son notes no complaint of chest pain but notes severe shortness of breath consistent with prior COPD exacerbations. Patient denies any active chest pain. Notes a mild cough denies fever or chills. Denies leg swelling. The patient denies recent surgery in the last 4 weeks or immobilization in the last 3 days, denies previous diagnosis of DVT or PE, hemoptysis, unilateral leg swelling or malignancy with treatment the last 6 months or palliative. No estrogen use noted. Per EMS patient received 125 mg Solu-Medrol and route. Also received 1 DuoNeb breathing treatment. REVIEW OF SYSTEMS: Pertinent positives: Shortness of breath Pertinent negatives: Chest pain, leg PHYSICAL EXAM: Nursing triage notes reviewed, Vital signs reviewed Constitutional: please see mdm HENT: MMM Eyes: Pupils equal round and reactive to light, Extraocular muscles intact Neck: No stridor, no JVD, full neck ROM Lungs: Severe increased work of breathing, diminished breath sounds bilaterally, bilateral wheezing. Tight airways Heart: Regular rate and rhythm, No murmurs, No rubs and No gallops, 2+ distal pulses (radial, femoral, posterior tibial) in all extremities Abdomen: Soft, there is no tenderness, rigidity, rebound or guarding, no obvious peritoneal signs, no palpable pulsatile abdominal masses, no auscultated abdominal bruit : No CVAT Extremities: No edema Neuro: No new focal neurological deficits, cranial nerves II through XII intact, 5/5 strength in all present extremities. Intact sensation to light touch in all present extremities, 2+ reflexes bilateral patella tendons. Skin: No rash or lesions noted MEDICAL DECISION MAKING: Chief Complaint: please see HPI External records reviewed: Reviewed prior ED visit Factors affecting care: Hypertension, hard of hearing COPD, aortic stenosis, Social determinants of health: none History obtained from others: EMS, family Consults: internal medicine MDM Narrative: Patient was initially tachypneic, saturating her percent on nonrebreather. Had increased work of breathing had diminished breath sounds bilaterally. Given the patient's increased work of breathing started rescue BiPAP initially I considered the following differential diagnosis: COPD exacerbation, CHF exacerbation, pneumonia, COVID, RSV, flu, I obtained a broad lab and imaging work to further determine if the patient was suffering from a life-threatening etiology. Gave the patient DuoNeb breathing treatments ALL IMAGES (IF OBTAINED) HAVE BEEN PERSONALLY REVIEWED AND INTERPRETED BY MYSELF. EKG shows sinus tachycardia rate of 106, normal axis, normal intervals, no STEMI VBG with evidence of respiratory acidosis with a pH 7.2 and a CO2 of 65 consistent CO2 retention and COPD exacerbation I have personally reviewed the patient's chest x-ray. Chest x-ray is unremarkable for pulmonary edema, pneumothorax, pneumonia or focal cardiopulmonary abnormality. CBC with leukocytosis suggestive of systemic formation, mild anemia but no thrombocytopenia BMP without evidence of significant electrolyte abnormalities, no anion gap, no acute kidney injury. High-sensitivity troponin is negative, no evidence of myocardial ischemia BNP within normal limits suggesting no heart failure The synthesis of the patient's history, physical exam, labs images suggest likely COPD exacerbation given respiratory acidosis, CO2 retention, increased work of breathing and diminished breath sounds. Will consider pulmonary embolism but this is less likely given focal lung findings and a more possible diagnosis of COPD exacerbation Rescue BiPAP was continued Given the patient's need for BiPAP patient be admitted to the intensive care unit further evaluation and treatment. The patient and/or family, caregivers express understanding. The patient and/or family, caregivers agrees with the plan. Shared decision making: I will have a discussion with the patient and or visitors regarding risk/benefits of further testing or admission. They will be made aware of of the risk/benefits inherent in this decision they will be given the opportunity to voice understanding. Total critical care time today provided was at least 60 minutes. This excludes separately billable procedures. Critical care time (if documented) is secondary to the patient having high probability of clinically significant/life threatening deterioration in the patient's condition which required my urgent intervention. Impression: 1. Acute hypercapnic respiratory failure 2. COPD exacerbation 3. Respiratory acidosis Dispo: Admit to ICU This note was generated with [employer] dictation software. It may contain incorrect words, spelling, and punctuation that were not noted in review of the chart prior to signing. ABG Data ABG results: ABG 08/04/25 21:41 Specimen Type ART Sample Site L Radial pH 7.27 L Bicarbonate Actual 30.1 H Total CO2 32 Base Excess 3 H O2 Saturation 96 O2 % 30.0 ABG pCO2 65.0 H ABG pO2 94 Jamie Test Positive O2 Delivery Device BiPAP Vent Mode Not entered Clinical Comments 16. 8. Radiography Diagnostic Testing: Clinical Impression(s) from Imaging Studies Chest X-Ray 08/04/25 22:17 IMPRESSION: 1. No evidence of acute cardiopulmonary disease. 2. Chronic interstitial emphysematous lung changes. 3. Multiple scattered pulmonary nodules, the largest in the left upper lung measuring 2.1 cm, grossly stable but better assessed on prior chest CT. Reading Location: [id number] Discharge Plan Triage Chief Complaint: Shortness of Breath ED Provider: Shahram Katz Dx/Rx/DC Orders Prescriptions: No Action Trelegy Ellipta 100-62.5-25 mcg blister with device 1 inh inhalation DAILY amlodipine 5 mg tablet 5 mg PO DAILY Patient Comments: Take 1 tablet by mouth once daily. vitamin E 268 mg (400 unit) capsule 268 mg PO DAILY garlic 1,000 mg capsule 1,000 mg PO DAILY Patient Comments: pt states he only takes once in a while alprazolam [Xanax] 0.25 mg tablet 0.375 mg PO QHS Patient Comments: takes 1.5 tabs albuterol sulfate 90 mcg/actuation HFA aerosol inhaler 1 inh inhalation Q6H PRN (Reason: shortness of breath or wheezing) albuterol sulfate 2.5 mg /3 mL (0.083 %) solution for nebulization 2.5 mg inhalation Q4H PRN Qty: 25 0RF Rx Instructions: Use q4 hours and PRN for wheezing prednisone 5 mg tablet 5 mg PO DAILY PRN Patient Comments: pt states he takes 1/2 to 1 tab before be if he feels sob. zolpidem [Ambien] 10 mg tablet 10 mg PO QHS Primary Care Provider: Michelle Erickson NP Referrals: Michelle Erickson NP, [facility] [Primary Care Provider, Medical] Print Language: Montserratian
[2025-08-04 23:00] VITALS: BP 109/77; PULSE 89; RESP 22; TEMP 36.7; O2SAT 98
[2025-08-04 23:13] LABS: Anion Gap 11 (5-15); BUN 29 mg/dL (4-19); BUN/Creat Ratio 32.0 RATIO (10-20); Calcium,Total 8.9 mg/dL (7.6-11.0); Carbon Dioxide 28.9 mmol/L (21.0-32.0); Chloride 95 mmol/L (98-108); Estimated Creatinine Clearance 59.63 ml/min (50-250); Glucose 199 mg/dL (70-99); Potassium 4.2 mmol/L (3.3-5.1)
[2025-08-04 23:15] LABS: Pro- Brain NATRIURETIC PEPTIDE 261 pg/mL (<=900); Troponin T High Sensitivity 21 ng/L (<=22)
[2025-08-04 23:19] LABS: Differential Indicated SCAN CRITERIA MET
[2025-08-04 23:47] VITALS: BP 103/68; PULSE 84; RESP 23; TEMP 36.1; O2SAT 98
--- NOTE | 2025-08-04 23:53 | HP.PCM.HOS_ITS ---
HPI - General General Date of Admission: 08/04/25 Date of Service: 08/04/25 Chief Complaint: Dyspnea, wheezing, hypoxia on home supplementation. 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, Chronic normocytic anemia, Anxiety, Valvular Heart Disease with mild aortic stenosis, Nonobstructive CAD noncompliant with medications, BPH with obstructive pathology, HTN, Known Pulmonary nodules, COPD with emphysematous changes with Chronic Hypoxic Respiratory Failure (1-2LNC), Former tobacco use who presents to the [facility] ED on 08/04/2025 with history of progressively worsening dyspnea on his home oxygen with increased hypoxia noted to be 88% prompting EMS call who administered Solu-Medrol 125 mg IV as well as DuoNeb therapy on route prompting transition to ED for further evaluation. and patient note chronic unchanged cough with no marked sputum production but he has had more wheezing over the last 24 hours. denies any recent ill contacts. Workup in the ED included T97.5, heart rate 108, BP 161/103, respiratory rate 25, 100% on a nonrebreather eventually transition to BiPAP noted to be 99% on FiO2 30% BiPAP, ABG with pH 7.27, bicarb 30.1, O2 saturation 96% on BiPAP, pCO2 65, pO2 94, chest x-ray with no acute cardiopulmonary findings with chronic interstitial emphysematous lung changes and scattered pulmonary nodules with the largest in the left upper lung measuring 2.1 cm grossly stable, rapid SARS COVID/influenza/RSV PCR negative, CBC with WBC 24.9, hemoglobin 12.8, MCV 87.6, platelet 366 with notable left shift and lymphopenia, BMP with chloride 95, BUN/creatinine 29/0.91, GFR 88, glucose 199, troponin 21, NT proBNPII 261. In the ED patient ministered DuoNeb therapy. [facility] Medical History Chronic hypoxic respiratory failure, on home oxygen therapy CAD (coronary artery disease) Pulmonary nodules COPD (chronic obstructive pulmonary disease) Hypertension Aortic stenosis Urinary retention Anxiety COPD (chronic obstructive pulmonary disease) [place] (hard of hearing) Hypertension Home Medications ?Medication ?Instructions ?Recorded ?Last Taken ?Type amlodipine 5 mg tablet 5 mg PO DAILY blood pressure 03/06/21 06/01/25 History albuterol sulfate 2.5 mg/3 mL 2.5 mg (3 mL) inhalation Q4H PRN 12/11/23 06/01/25 Rx (0.083 %) solution for nebulization #25 vials garlic 1,000 mg capsule 1,000 mg PO DAILY general he alth 12/17/23 Unknown History vitamin E 268 mg (400 unit) capsule 268 mg PO DAILY bl ood clot 12/17/23 06/01/25 History prevention alprazolam 0.25 mg tablet (Xanax) 0.375 mg PO QHS anxi ety 02/28/24 05/31/25 History fluticasone fur. 100 mcg-umeclid 1 inh inhalation SUDHAKAR Y 02/28/24 06/01/25 History 62.5 mcg-vilant 25 mcg inhalat.powder (Trelegy Ellipta) albuterol sulfate 90 mcg/actuation 1 inh inhalation Q6 H PRN shortness 12/01/24 05/31/25 History aerosol inhaler of breath or wheezing prednisone 5 mg tablet 5 mg PO DAILY PRN sob 05/31/25 History zolpidem 10 mg tablet (Ambien) 10 mg PO QHS 08/04/25 U nknown History Allergy/AdvReac Type Severity Reaction Status Date / Time No Known Allergies Allergy Verified 08/04/25 21:25 Family History (Updated 08/05/25 @ 00:[address] Randa Mckeon MD) Mother Diabetes Father Heart disease Surgical History Hx of hernia repair History of replacement of both shoulder joints Social History household members: spouse housing: house Smoking Status: Former smoker alcohol intake: never substance use type: does not use ROS ROS Narrative Admission Review of Systems: CONSTITUTIONAL: No weight loss, fever, chills, + weakness or fatigue. HEENT: Eyes: No visual loss, blurred vision, double vision or yellow sclerae. Ears, Nose, Throat: No hearing loss, sneezing, congestion, runny nose or sore throat. SKIN: No rash or itching, lesions, wounds except + occasional stage ecchymoses, abrasion. CARDIOVASCULAR: No chest pain, chest pressure or chest discomfort, palpitations, edema, orthopnea, syncopal events. RESPIRATORY: + Dyspnea, cough not markedly productive, wheezing. No hemoptysis. GASTROINTESTINAL: No anorexia, nausea, vomiting or diarrhea, abdominal pain, melena, BRBPR. GENITOURINARY: No dysuria, frequency, urgency or retention. NEUROLOGICAL: No headache, dizziness, syncope, paralysis, ataxia, numbness or tingling in the extremities, focal weakness, change in bowel or bladder control, seizure. MUSCULOSKELETAL: + muscle, back pain, joint pain or stiffness. HEMATOLOGIC: + Chronic anemia. No marked easy history of bleeding or bruising. LYMPHATICS: No enlarged nodes. No history of splenectomy. PSYCHIATRIC: + Anxiety. ENDOCRINOLOGIC: No reports of sweating, cold or heat intolerance. No polyuria or polydipsia. ALLERGIES: No history of asthma, hives, eczema or rhinitis. Vital Signs Vital Signs Vital Signs: 08/04/25 21:20 08/04/25 21:20 08/04/25 21:34 Temperature 97.5 F L Temperature Source Oral Pulse Rate 108 H 110 H Respiratory Rate 25 H 28 H Respiratory Effort Respiratory Depth Blood Pressure 161/103 H Blood Pressure Mean 122 Pulse Ox 100 100 99 Oxygen Delivery Method Non-Rebreather Bi-pap Fraction of Inspired Oxygen (FIO2) 30 30 08/04/25 21:37 08/04/25 22:19 08/04/25 23:00 Temperature 98.1 F Temperature Source Temporal Pulse Rate 106 H 89 Respiratory Rate 26 H 22 H Respiratory Effort Short of Breath Labored Nasal Flaring Respiratory Depth Deep Blood Pressure 118/94 H 109/77 Blood Pressure Mean 102 87 Pulse Ox 97 98 Oxygen Delivery Method Bi-pap Bi-pap Bi-pap Fraction of Inspired Oxygen (FIO2) 30 30 30 08/04/25 23:47 Temperature 97.0 F L Temperature Source Temporal Pulse Rate 84 Respiratory Rate 23 H Respiratory Effort Respiratory Depth Blood Pressure 103/68 Blood Pressure Mean 79 Pulse Ox 98 Oxygen Delivery Method Bi-pap Fraction of Inspired Oxygen (FIO2) 30 Weight Weight: 130 lb 8.218 oz Body Mass Index (BMI) 21.0 Physical Exam Narrative Physical Examination: General: Awake, alert, oriented x 3 and cooperative, seated upright in ED bed, respirator stress is lessened, remains on BiPAP currently, fatigued but feeling improved since initial ED arrival.. Skin: Normal color, normal turgor, no icterus, no cyanosis except occasional stage ecchymoses, abrasion. HEENT: AT/NC, EOMI, PERRLA, mildly dry MM, BiPAP in place, difficult discern carotid bruit given referred sound, no obvious marked JVD. Lungs: Severely diminished, greater bases, mildly increased respiratory rise but current respiratory distress abated, maintained on BiPAP, able to give some answers, occasional still end expiratory wheeze, distant, no rhonchi. Heart: Regular rate and rhythm; no gallop, rub audible. Abdomen: Soft, NTTP, ND, normal BS, no HSM. Extremities: No cyanosis, clubbing, or edema. Neurological: Patient awake, alert, oriented as noted, cognitive function intact; pupils equally reactive to light and accommodation, cranial nerves grossly normal, moving all 4 extremities, no focal deficits, strength severely globally decreased although improving with respiratory distress resolution. Psychiatric: Affect appears flat, fatigued, no acute evidence of depressive or anxiety feelings but does have anxiety history. Results Lab / Micro Data 08/04/25 22:34 08/04/25 22:34 Labs: Laboratory Results - last 24 hr 08/04/25 22:34: WBC 24.9 H, RBC 4.52 L, Hgb 12.8 L, Hct 39.6 L, MCV 87.6, MCH 28.3, MCHC 32.3, RDW Std Deviation 43.8, RDW Coeff of Sherri 13.6, Plt Count 366, MPV 9.2, Immature Gran % (Auto) 0.700, Neut % (Auto) 94.0 H, Lymph % (Auto) 1.4 L, [place]on % (Auto) 3.6, Eos % (Auto) 0.0, Baso % (Auto) 0.3, Absolute Neuts (auto) 23.5 H, Absolute Lymphs (auto) 0.34 L, Nucleated RBC % 0, Sodium 135, Potassium 4.2, Chloride 95 L, Carbon Dioxide 28.9, Anion Gap 11, BUN 29 H, Creatinine 0.91, Estim Creat Clear Calc 59.63, Est GFR (MDRD) Non-Af 88, BUN/Creatinine Ratio 32.0 H, Glucose 199 H, Calcium 8.9, Troponin T High Sens 21 D, NT pro BNP II 261 Micro: Microbiology 08/04/25 22:00 Mucosa - Nose SARS-CoV-2, Influenza & RSV (PCR) - Final ABG Data ABG results: ABG 08/04/25 21:41 Specimen Type ART Sample Site L Radial pH 7.27 L Bicarbonate Actual 30.1 H Total CO2 32 Base Excess 3 H O2 Saturation 96 O2 % 30.0 ABG pCO2 65.0 H ABG pO2 94 Jamie Test Positive O2 Delivery Device BiPAP Vent Mode Not entered Clinical Comments 16. 8. Imaging Radiology Impression Chest X-Ray 08/04/25 22:17 IMPRESSION: 1. No evidence of acute cardiopulmonary disease. 2. Chronic interstitial emphysematous lung changes. 3. Multiple scattered pulmonary nodules, the largest in the left upper lung measuring 2.1 cm, grossly stable but better assessed on prior chest CT. 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, Chronic normocytic anemia, Anxiety, Valvular Heart Disease with mild aortic stenosis, Nonobstructive CAD noncompliant with medications, BPH with obstructive pathology, HTN, Known Pulmonary nodules, COPD with emphysematous changes with Chronic Hypoxic Respiratory Failure (1-2LNC), Former tobacco use who presents to the [facility] ED on 08/04/2025 with history of progressively worsening dyspnea on his home oxygen with increased hypoxia noted to be 88% prompting EMS call who administered Solu-Medrol 125 mg IV as well as DuoNeb therapy on route prompting transition to ED for further evaluation. #1. Acute Hypoxic and Hypercarbic Respiratory Failure on Chronic Hypoxic Respiratory Failulre secondary to Acute on Chronic COPD exacerbation with noted leukocytosis however suspect patient recently taking more of his steroids which she has available as needed: Will admit to the ICU, will continue BiPAP placement, plan repeat ABG in 1 to 2 hours, wean oxygen as able to home supplementation, maintain on ATC duonebs, PRN albuterol, IV methylprednisolone, HOB, IS parameters, placed on Mucinex 1200 mg p.o. twice daily, encourage aggressive pulmonary toilet, encourage Acapella 10 times every 2 hours while awake, will obtain sputum Cx, respiratory viral panel, procalcitonin, will hold on immediately abx therapy but low threshold to add if appropriate. #2. Hyperglycemia without diabetic history: Admission hemoglobin 199, possibly steroid related but uncertain, will obtain hemoglobin C to be cautious. #3. Known pulmonary nodules: Patient with significant pulmonary nodule history, aware, encourage pulmonary follow-up following discharge or as previously arranged. #4. Nonobstructive CAD: Patient unfortunately is not on appropriate medical therapy however this is per patient preference and patient reportedly understands risks, currently not on aspirin therapy nor statin nor beta-lisa therapy or BETHANY inhibitor/ARB. Recent stress testing/05/20 with pharmacological myocardial perfusion stress test noted to be normal with a preserved EF with a small anteroseptal infarct previously a potential and cannot be excluded. Most recent noted cardiac catheterization 03/02/2024 with mild to moderate aortic stenosis with no high-grade obstruction with nonobstructive coronary arteries with medical therapy recommendation. #5. Valvular heart disease: Patient with noted mild aortic stenosis, most recent echocardiogram noted 06/05/2024 with LV normal size, LV systolic function normal, EF 59? percent, grade 1 LV diastolic dysfunction, RV normal in size, RV systolic function normal, mild aortic stenosis present, peak and mean gradient of 27/50 mmHg. #6. Chronic normocytic anemia: Admission hemoglobin 12.8, MCV 87.6, labs previously have vacillated and sometimes patient will be in the 12-13 range but other x 15, stable compared to previous fluctuations, will continue to trend. #7. Chronic Kidney Disease Stage I versus stage II, has vacillated: Admission BUN/Cr 29/0.91, GFR 88, baseline renal function primarily 0.7-0.9, repeat BMP in AM. #8. Hypertension: Continue home regimen including Norvasc, PRN hydralazine. #9. Anxiety: Will continue patient home Xanax regimen. Given patient significant COPD history may at some point consider low-dose Klonopin. #10. BPH with obstructive pathology: Noted history, not on any regimen, monitor for retention may add regimen if necessary. #11. Former tobacco use: Encourage continued tobacco cessation. #12. DVT prophylaxis: Lovenox. #13. CODE status: Patient does not have healthcare power of trust and estates attorney or living will in place but he notes his and his family would be his medical decision maker if necessary. Discussed CODE status at length including difference between FULL code, DNR-CCA and DNR-CC status. Following discussions about the differences in these status, requested DNR-CCA, no intubation examples given and status confirmed. Advanced Care Planning Face to Face Time: 16 minutes. Charges/Coding Visit Charges Inpatient E&M: 33150 Init Hosp L3 Procedures Hospitalists Procedures: 42041 Advncd Care Plan 30 Min
[2025-08-05] VITALS (19 sets, daily range): BP systolic 103–139; BP diastolic 62–85; PULSE 69–93; RESP 14–27; TEMP 36.3–36.9; O2SAT 92–100; BMI 18.4
--- OUTSIDE RECORDS SUMMARY | 2025-08-05 00:03 | XMS RPT_ITS | CCD ---
Author Organization [facility] Care Team Providers Care Press Tender Long Goods Name Role Phone SAHARA JAY Attending Unavailable SAHARA JAY Primary Care Unavailable SAHARA JAY Admitting Unavailable RADHA STAHL MD, III Primary Care Physician RADHA STAHL MD, III Primary Care Physician [phone] Dr. Jr Ryan Primary Care Provider Dr. Carmelo Bauer Emergency Provider Dr. Fatemeh Estrella Admit Provider Dr. Fatemeh Estrella Attending Provider Dr. Fatemeh Estrella Other Provider Dr. Carri Worley Attending Provider [phone] Carri Worley Other Provider RADHA STAHL MD, III Primary Care UnavailJUAN Dukes Attending Unavailable JR RYAN Primary Care Unavailable Dr. Jr Ryan Primary Care Provider Dr. Migel Iqbal Emergency Provider Dr. Anirudh Thompson Admit Provider Dr. Anirudh Thompson Attending Provider [phone] Anirudh Thompson Other Provider Dr. Fadi Lloyd Attending Provider Dr. Fadi Lloyd Other Provider [phone] Jr Ryan DO Primary Care Provider Dr. Jr Ryan DO Primary Care Provider Dr. Todd Valdovinos DO Emergency Provider Dr. Anirudh Thompson DO Admit Provider [phone] Anirudh Thompson DO Attending Provider Georgina RUBBER MOLDER-C, Michelle Sanaz Primary Care Provider Dr. Jr Ryan DO [...] Pike DO Emergency Department Physi parvin Georgina RUBBER MOLDER-C, Michelle Sanaz Primary Care Physician Dr. Kaern Le DO Admitting Physician Dr. Karen Le DO Attending Physician Rey LI, Dr. Jones Nurse Practitioner Jopperi, Anirudh Attending Unavailable Connor, Jr Primary Care Unavailable Jopperi, Anirudh Consulting Unavailable Jopperi, Anirudh Attending Unavailable Jopperi, Anirudh Admitting Unavailable Georgina RUBBER MOLDER, Michelle Sanaz Primary Care Unavailabl e Eh Castellon Attending Unavailable Jopperi, Anirudh Referring Unavailable Connor, Jr Primary Care Unavailable CandeEh Attending Unavailable Connor, Jr Primary Care Unavailable Roof RUBBER MOLDER, Bentley Rodgers Attending Unavailable Connor, Jr Primary Care Unavailable Connor, Jr Referring Unavailable Roof RUBBER MOLDER, Bentley H Attending Unavailable Karen Le Consulting Unavailable Karen Le Attending Unavailable Karen Le Admitting Unavailable Kapper RUBBER MOLDER, Michelle Sanaz Primary Care Unavailabl e Jopperi, Anirudh Attending Unavailable Georgina RUBBER MOLDER, [facility] UnavailAnirudh Mejia Admitting Unavailable Karen Le Attending Unavailable Karen Le Admitting Unavailable Georgina RUBBER MOLDER, [facility] Unavailabl e CHARLES, NARIMAN A Attending Unavailable JR RYAN Primary Care Unavailable TIGRE RESTREPO Attending Unavailable JR RYAN Primary Care Unavailable Allergies Allergy Classification Reported Allergen(s) Allergy Type Date of Onset Reaction(s) Facility (20 sources) Lisinopril; Translations: [LISINOPRIL] Drug Allergy 7 Cough [facility] Repository (20 sources) Naproxen; Translations: [NAPROXEN] Drug Allergy 7 GI Upset [facility] Repository (20 sources) TRIAMTERENE-HYDR OCHLOROTHIAZID; Translations: [TRIAMTERENE-HYD ROCHLOROTHIAZID] Propensity to adverse reactions to drug (disorder) 7 Intolerance [facility] Repository Medications Current Medications Medication Drug Class(es) Dates Sig (Normalized) Sig (Original) [id number] 200 actuat albuterol 0.09 mg/actuat metered dose [...] take 1 puff(s) by inhalation once daily hehzvpjvdnn-wlrjwzwiu-wrikctbe (TRELEGY ELLIPTA) 100-62.5-25 mcg inhalation powder Inhale [...] mg PO DAILY December 17, 2023 12:00am [facility] Complies with drug therapy Start: 12-17-2023 take [...] extended release oral tablet (9 sources) Uncompetitive G-hshzpj-R-aspartate Receptor Antagonist, Sigma-1 Agonist Start: 12-20-2023 End: [...] Coronary atherosclerosis; Translations: [Atherosclerotic heart disease of samish coronary artery without angina pectoris] Onset: 12-09-2024 [...] Facility CNCOon 06-23-2025 [facility]CO Letter Text Normal [facility] Absolute lymphocyte countOrd ered By: Karen Le on 06-02-2025 Lymphocytes Auto (Unsp spec) [#/Vol] 0.36 10*3/uL Low 0.83-4.51 [facility] Absolute neutrophil countOrd ered By: Karen Le on 06-02-2025 Neutrophils (Bld) [#/Vol] 7.4 10*3/uL 2.0-7.7 [facility] Anion gap in Serum or Plasma Ordered By: Karen Le on 06-02-2025 Anion gap [Moles/Vol] 8 mmol/L 5-15 [facility] Automated lymphocyte count a s percentage of total leukocytesOrdered By: Karen eL on 06-02-2025 Lymphocytes/100 WBC Auto (Unsp spec) 4.5 % Low - [facility] BUN/creatinine ratioOrdered By: Karen Le on 06-02-2025 Urea nitrogen/Creatinine [Mass ratio] 31.4 mg/mg High 10- [facility] Basophil percentageOrdered B y: Karen Le on 06-02-2025 Basophils/100 WBC (Bld) 0.1 % 0-[address] [facility] Bilirubin, totalOrdered By: Karen Le on 06-02-2025 Bilirubin [Mass/Vol] 0.44 mg/dL 0.00-1.30 [facility] CBC W/Diff, Automatedon Absolute Lymph 0.36 X10 3/uL Low 0.83-4.51 [facility] Comment on above: Performed By: #### L 501.5200, L500.2500, L100.0100 #### [facility] [address] [place], [address] Absolute Neut 7.4 X10 3/uL Normal 2.0-7.7 [facility] Comment on above: Performed By: #### L 501.5200, L500.2500, L100.0100 #### [facility] [address] [place], [address] Basophils/100 WBC (Bld) 0.1 % Normal 0-[address] [facility] Comment on above: Performed By: #### L 501.5200, L500.2500, L100.0100 #### [facility] [address] [place], [address] Eosinophils/100 WBC (Bld) 0.0 % Normal 0-5 [facility] Comment on above: Performed By: #### L 501.5200, L500.2500, L100.0100 #### [facility] [address] [place], [address] Erythrocyte distribution width (RBC) [Ratio] 14.3 % Normal 11.6-14.6 [facility] Comment on above: Performed By: #### L 501.5200, L500.2500, L100.0100 #### [facility] [address] [place], [address] Hematocrit (Bld) [Volume fraction] 38.0 % Low 40-54 [facility] Comment on above: Performed By: #### L 501.5200, L500.2500, L100.0100 #### [facility] [address] [place], [address] Hemoglobin (Bld) [Mass/Vol] 12.8 g/dL Low 13.0-16.5 [facility] Comment on above: Performed By: #### L 501.5200, L500.2500, L100.0100 #### [facility] [address] [place], [address] IG% 0.400 Normal 0.0-0.9 [facility] Comment on above: Result Comment: IG% - Immature Granulocytes (promyelocytes, myelocytes and metamyelocytes) > 1% indicates that a LEFT SHIFT is Present. Performed By: #### L 501.5200, L500.2500, L100.0100 #### [facility] [address] [place], [address] Lymphocytes/100 WBC (Bld) 4.5 % Low 19-41 [facility] Comment on above: Performed By: #### L 501.5200, L500.2500, L100.0100 #### [facility] [address] [place], [address] MCH (RBC) [Entitic mass] 29.1 pg Normal 27.0-32.0 [facility] Comment on above: Performed By: #### L 501.5200, L500.2500, L100.0100 #### [facility] [address] [place], [address] MCHC (RBC) [Mass/Vol] 33.7 g/dL Normal 32-36 [facility] Comment on above: Performed By: #### L 501.5200, L500.2500, L100.0100 #### [facility] [address] [place], [address] MCV (RBC) [Entitic vol] 86.4 fL Normal 80-94 [facility] Comment on above: Performed By: #### L 501.5200, L500.2500, L100.0100 #### [facility] [address] [place], [address] Monocytes/100 WBC (Bld) 2.5 % Normal 0-[address] [facility] Comment on above: Performed By: #### L 501.5200, L500.2500, L100.0100 #### [facility] [address] [place], [address] Neutrophils/100 WBC (Bld) 92.5 % High 47-70 [facility] Comment on above: Performed By: #### L 501.5200, L500.2500, L100.0100 #### [facility] [address] [place], [address] Nucleated RBC (Bld) [#/Vol] 0 10*3/uL Normal 0-5 [facility] Comment on above: Performed By: #### L 501.5200, L500.2500, L100.0100 #### [facility] [address] [place], [address] Platelet mean volume (Bld) [Entitic vol] 9.5 fL Normal 6.2-12.0 [facility] Comment on above: Performed By: #### L 501.5200, L500.2500, L100.0100 #### [facility] [address] [place], [address] Platelets (Bld) [#/Vol] 229 10*3/uL Normal 150-450 [facility] Comment on above: Performed By: #### L 501.5200, L500.2500, L100.0100 #### [facility] [address] [place], [address] RBC (Bld) [#/Vol] 4.40 10*6/uL Low 4.6-6.2 [facility] Comment on above: Performed By: #### L 501.5200, L500.2500, L100.0100 #### [facility] [address] [place], [address] RDW SD 45.5 fl High 35.1-43.9 [facility] Comment on above: Performed By: #### L 501.5200, L500.2500, L100.0100 #### [facility] [address] [place], [address] WBC (Bld) [#/Vol] 8.0 10*3/uL Normal 4.4-11.0 [facility] Comment on above: Performed By: #### L 501.5200, L500.2500, L100.0100 #### [facility] [address] [place], [address] Carbon dioxide, total [Moles /volume] in Central venous bloodOrdered By: Karen Le on 06-02-2025 CO2 [Moles/Vol] 27.5 mmol/L 21.0-32.0 [facility] Chloride assayOrdered By: Sejal lopezconnie Rey on 06-02-2025 Chloride [Moles/Vol] 101 mmol/L 98-108 [facility] Comprehensive Metabolic Prof ilon 06-02-2025 Albumin [Mass/Vol] 3.7 g/dL Normal 3.4-4.8 [facility] Comment on above: Performed By: #### L 501.5200, L500.2500, L100.0100 #### [facility] [address] [place], [address] Albumin/Globulin [Mass ratio] 2.0 {ratio} Normal 0.9-2.4 [facility] Comment on above: Performed By: #### L 501.5200, L500.2500, L100.0100 #### [facility] [address] [place], [address] ALK PHOS 60 U/L Normal 40-129 [facility] Comment on above: Performed By: #### L 501.5200, L500.2500, L100.0100 #### [facility] [address] [place], [address] ALT [Catalytic activity/Vol] 19 U/L Normal <=46 [facility] Comment on above: Performed By: #### L 501.5200, L500.2500, L100.0100 #### [facility] [address] [place], [address] AST [Catalytic activity/Vol] 20 U/L Normal <=37 [facility] Comment on above: Performed By: #### L 501.5200, L500.2500, L100.0100 #### [facility] [address] [place], [address] Bilirubin [Mass/Vol] 0.44 mg/dL Normal 0.00-1.30 [facility] Comment on above: Performed By: #### L 501.5200, L500.2500, L100.0100 #### [facility] [address] [place], [address] BUN/CRE 31.4 RATIO High 10-20 [facility] Comment on above: Performed By: #### L 501.5200, L500.2500, L100.0100 #### [facility] [address] [place], [address] Calcium [Mass/Vol] 9.2 mg/dL Normal 7.6-11.0 [facility] Comment on above: Performed By: #### L 501.5200, L500.2500, L100.0100 #### [facility] [address] [place], [address] Chloride [Moles/Vol] 101 mmol/L Normal 98-108 [facility] Comment on above: Performed By: #### L 501.5200, L500.2500, L100.0100 #### [facility] [address] [place], [address] CO2 [Moles/Vol] 27.5 mmol/L Normal 21.0-32.0 [facility] Comment on above: Performed By: #### L 501.5200, L500.2500, L100.0100 #### [facility] [address] [place], [address] Creatinine [Mass/Vol] 0.73 mg/dL Normal 0.70-1.20 [facility] Comment on above: Performed By: #### L 501.5200, L500.2500, L100.0100 #### [facility] [address] [place], [address] ECRCL 61.33 ml/min Normal 50-250 [facility] Comment on above: Performed By: #### L 501.5200, L500.2500, L100.0100 #### [facility] [address] [place], [address] GAP 8 Normal 5-15 [facility] Comment on above: Performed By: #### L 501.5200, L500.2500, L100.0100 #### [facility] [address] [place], [address] GFR/1.73 sq M.predicted among non-blacks MDRD (S/P/Bld) [Vol rate/Area] 95 mL/min/{1.73_m2} Normal >60 [facility] Comment on above: Result Comment: mL/m in/1.73m2 CKD-EPI Creatinine Equation (2020) Performed By: #### L 501.5200, L500.2500, L100.0100 #### [facility] [address] [place], [address] Globulin (S) [Mass/Vol] 1.9 g/dL Low 2.2-4.2 [facility] Comment on above: Performed By: #### L 501.5200, L500.2500, L100.0100 #### [facility] [address] [place], [address] Glucose [Mass/Vol] 165 mg/dL High 70-99 [facility] Comment on above: Performed By: #### L 501.5200, L500.2500, L100.0100 #### [facility] [address] [place], [address] Potassium [Moles/Vol] 4.7 mmol/L Normal 3.3-5.1 [facility] Comment on above: Performed By: #### L 501.5200, L500.2500, L100.0100 #### [facility] [address] [place], [address] Sodium [Moles/Vol] 137 mmol/L Normal 133-145 [facility] Comment on above: Performed By: #### L 501.5200, L500.2500, L100.0100 #### [facility] [address] [place], [address] T PROT 5.6 g/dL Low 5.9-8.4 [facility] Comment on above: Performed By: #### L 501.5200, L500.2500, L100.0100 #### [facility] [address] [place], [address] Urea nitrogen [Mass/Vol] 23 mg/dL High 4-19 [facility] Comment on above: Performed By: #### L 501.5200, L500.2500, L100.0100 #### [facility] [address] [place], [address] Eosinophil percentageOrdered By: Karen Le on 06-02-2025 Eosinophils/100 WBC (Bld) 0.0 % 0-5 [facility] Erythrocyte distribution wid th ratioOrdered By: Karen Le on 06-02-2025 Erythrocyte distribution width (RBC) [Ratio] 14.3 % 11.6-14.6 [facility] Erythrocyte distribution wid th standard deviationOrdered By: Karen Le on 06-02-2025 Erythrocyte distribution width (RBC) [Ratio] 45.5 fl High 35.1-43.9 [facility] Glomerular filtration rate ( GFR) estimation/1.73 sq m using serum, plasma, or whole bOrdered By: Karen Le on 06-02-2025 GFR/1.73 sq M.predicted among non-blacks MDRD (S/P/Bld) [Vol rate/Area] 95 mL/min/{1.73_m2} >60 [facility] Comment on above: mL/min/1.73m2 CKD-EP I Creatinine Equation (2020) Hematocrit Auto (Bld) [Volum e fraction]Ordered By: Karen Le on 06-02-2025 Hematocrit (Bld) [Volume fraction] 38.0 % Low 40-54 [facility] Hemoglobin measurementOrdere d By: Karen Le on 06-02-2025 Hemoglobin (Bld) [Mass/Vol] 12.8 g/dL Low 13.0-16.5 [facility] Immature granulocytes/100 WB C Auto (Bld)Ordered By: Karen Le on 06-02-2025 Immature granulocytes/100 WBC (Bld) 0.400 % 0.0-0.9 [facility] Comment on above: IG% - Immature Granu locytes (promyelocytes, myelocytes and metamyelocytes) > 1% indicates that a LEFT SHIFT is Present. Laboratory - Chemistry and C hemistry - challengeOrdered By: Karen Le on 06-02-2025 AST [Catalytic activity/Vol] 20 U/L <38 [facility] MCV (mean corpuscular volume ) determinationOrdered By: Karen Le on 06-02-2025 MCV (RBC) [Entitic vol] 86.4 fL 80-[address] [facility] Magnesiumon 06-02-2025 Magnesium [Mass/Vol] 2.0 mg/dL Normal 1.5-2.2 [facility] Comment on above: Performed By: #### L 501.5200, L500.2500, L100.0100 #### [facility] [address] [place] [address], [id number] Magnesium measurement (mass/ volume)Ordered By: Karen Le on 06-02-2025 Magnesium (Unsp spec) [Mass/Vol] 2.0 mg/dL 1.5-2.2 [facility] Mean corpuscular hemoglobin (MCH) determinationOrdered By: Karen Le on 06-02-2025 MCH (RBC) [Entitic mass] 29.1 pg 27.0-32.0 [facility] Mean corpuscular hemoglobin concentration (MCHC) determinationOrdered By: Karen Le on 06-02-2025 MCHC (RBC) [Mass/Vol] 33.7 g/dL 32-36 [facility] Mean platelet volume determi nationOrdered By: Karen Le on 06-02-2025 Platelet mean volume (Bld) [Entitic vol] 9.5 fL 6.2-12.0 [facility] Monocyte percentageOrdered B y: Karen Le on 06-02-2025 Monocytes/100 WBC (Bld) 2.5 % 0-[address] [facility] Neutrophil percentageOrdered By: Karen Le on 06-02-2025 Neutrophils/100 WBC (Bld) 92.5 % High 47-70 [facility] Nucleated red blood cell per centageOrdered By: Karen Le on 06-02-2025 Nucleated RBC/100 WBC (Bld) [Ratio] 0 % 0-5 [facility] Phosphoruson 06-02-2025 Phosphate [Mass/Vol] 3.2 mg/dL Normal 2.7-4.5 [facility] Comment on above: Performed By: #### L 501.5200, L500.2500, L100.0100 #### [facility] [address] [place], [address] Platelet countOrdered By: Sejal Le on 06-02-2025 Platelets (Bld) [#/Vol] 229 10*3/uL 150-450 [facility] Potassium measurement (mass/ volume)Ordered By: Karen Le on 06-02-2025 Potassium (Unsp spec) [Mass/Vol] 4.7 mmol/L 3.3-5.1 [facility] RBC Auto (Bld) [#/Vol]Ordere d By: Karen Le on 06-02-2025 RBC (Bld) [#/Vol] 4.40 10*6/uL Low 4.6-6.2 [facility] Serum creatinine measurement (mass/volume)Ordered By: Karen Le on 06-02-2025 Creatinine [Mass/Vol] 0.73 mg/dL 0.70-1.20 [facility] Serum globulin measurementOr dered By: Karen Le on 06-02-2025 Globulin (S) [Mass/Vol] 1.9 g/dL Low 2.2-4.2 [facility] Serum glucose measurement (m ass/volume)Ordered By: Karen Le on 06-02-2025 Glucose [Mass/Vol] 165 mg/dL High 70-99 [facility] Serum or plasma alanine orta otransferase (ALT) measurementOrdered By: Karen Le on 06-02-2025 ALT [Catalytic activity/Vol] 19 U/L <47 [facility] Serum or plasma albumin christiana urement (mass/volume)Ordered By: Karen Le on 06-02-2025 Albumin [Mass/Vol] 3.7 g/dL 3.4-4.8 [facility] Serum or plasma albumin/glob ulin mass ratioOrdered By: Karen Le on 06-02-2025 Albumin/Globulin [Mass ratio] 2.0 {ratio} 0.9-2.4 [facility] Serum or plasma alkaline rachel sphatase measurementOrdered By: Karen Le on 06-02-2025 ALP [Catalytic activity/Vol] 60 U/L 40-129 [facility] Serum or plasma calcium christiana urement (mass/volume)Ordered By: Karen Le on 06-02-2025 Calcium [Mass/Vol] 9.2 mg/dL 7.6-11.0 [facility] Serum or plasma urea nitroge n measurement (mass/volume)Ordered By: Karen Le on 06-02-2025 Urea nitrogen [Mass/Vol] 23 mg/dL High 4-19 [facility] Sodium levelOrdered By: Kira Le on 06-02-2025 Sodium [Moles/Vol] 137 mmol/L 133-145 [facility] Total proteinOrdered By: Caridad Le on 06-02-2025 Protein [Mass/Vol] 5.6 g/dL Low 5.9-8.4 [facility] White blood cell (WBC) count Ordered By: Karen Le on 06-02-2025 WBC (Bld) [#/Vol] 8.0 10*3/uL 4.4-11.0 [facility] 12 Lead EKGon 06-01-2025 12 Lead EKG [facility] [address] [place] [address] 12 Lead EKG 06/01/25 0729 MR#: [id number] Acct: [id number] Name: BEATRIS QUINN Rep #: [id number] : 1950 74 From: Eh Castellon MD [...] Normal ECG Confirmed by EH CASTELLON MD ([id number]), greeting card editor MICHELLE ROMERO ([id number]) on 06/02/2025 1:25:02 PM Referred By: Confirmed By: EH CASTELLON MD 06/02/25 1325 Date Eh Castellon MD CC: RUBBER MOLDER-C Michelle Ferraro; Dr. Vivi Pike DO; Dr. Karen Le DO Signed Normal [facility] Absolute lymphocyte countOrd ered By: Vivi Pike on 06-01-2025 Lymphocytes Auto (Unsp spec) [#/Vol] 1.29 10*3/uL 0.83-4.51 [facility] Absolute neutrophil countOrd ered By: Vivi Pike on 06-01-2025 Neutrophils (Bld) [#/Vol] 5.8 10*3/uL 2.0-7.7 [facility] Anion gap in Serum or Plasma Ordered By: Vivi Pike on 06-01-2025 Anion gap [Moles/Vol] 8 mmol/L 5- [facility] Automated lymphocyte count a s percentage of total leukocytesOrdered By: Vivi Pike on 06-01-2025 Lymphocytes/100 WBC Auto (Unsp spec) 15.9 % Low 19-41 [facility] BUN/creatinine ratioOrdered By: Vivi Pike on 06-01-2025 Urea nitrogen/Creatinine [Mass ratio] 26.3 mg/mg High 10- [facility] Basophil percentageOrdered B y: Vivi Pike on 06-01-2025 Basophils/100 WBC (Bld) 0.5 % 0-1 [facility] Bilirubin, totalOrdered By: Vivi Pike on 06-01-2025 Bilirubin [Mass/Vol] 0.70 mg/dL 0.00-1.30 [facility] CBC W/Diff, Automatedon Absolute Lymph 1.29 X10 3/uL Normal 0.83-4.51 [facility] Comment on above: Performed By: #### L 100.0100, L500.4050 #### [facility] [address] [place], [address] Absolute Neut 5.8 X10 3/uL Normal 2.0-7.7 [facility] Comment on above: Performed By: #### L 100.0100, L500.4050 #### [facility] [address] [place], [address] Basophils/100 WBC (Bld) 0.5 % Normal 0-[address] [facility] Comment on above: Performed By: #### L 100.0100, L500.4050 #### [facility] [address] [place], [address] Eosinophils/100 WBC (Bld) 2.2 % Normal 0-5 [facility] Comment on above: Performed By: #### L 100.0100, L500.4050 #### [facility] [address] [place], [address] Erythrocyte distribution width (RBC) [Ratio] 14.4 % Normal 11.6-14.6 [facility] Comment on above: Performed By: #### L 100.0100, L500.4050 #### [facility] [address] [place], [address] Hematocrit (Bld) [Volume fraction] 42.7 % Normal 40-54 [facility] Comment on above: Performed By: #### L 100.0100, L500.4050 #### [facility] [address] [place], [address] Hemoglobin (Bld) [Mass/Vol] 14.1 g/dL Normal 13.0-16.5 [facility] Comment on above: Performed By: #### L 100.0100, L500.4050 #### [facility] [address] [place], [address] IG% 0.600 Normal 0.0-0.9 [facility] [facility] Comment on above: Result Comment: IG% - Immature Granulocytes (promyelocytes, myelocytes and metamyelocytes) > 1% indicates that a LEFT SHIFT is Present. Performed By: #### L 100.0100, L500.4050 #### [facility] [address] [place], [address] Lymphocytes/100 WBC (Bld) 15.9 % Low 19-41 [facility] Comment on above: Performed By: #### L 100.0100, L500.4050 #### [facility] [address] [place], [address] MCH (RBC) [Entitic mass] 28.7 pg Normal 27.0-32.0 [facility] Comment on above: Performed By: #### L 100.0100, L500.4050 #### [facility] [address] [place], [address] MCHC (RBC) [Mass/Vol] 33.0 g/dL Normal 32-36 [facility] Comment on above: Performed By: #### L 100.0100, L500.4050 #### [facility] [address] [place], [address] MCV (RBC) [Entitic vol] 86.8 fL Normal 80-[address] [facility] Comment on above: Performed By: #### L 100.0100, L500.4050 #### [facility] [address] [place], [address] Monocytes/100 WBC (Bld) 9.4 % Normal 0-[address] [facility] Comment on above: Performed By: #### L 100.0100, L500.4050 #### [facility] [address] [place], [address] Neutrophils/100 WBC (Bld) 71.4 % High 47-70 [facility] Comment on above: Performed By: #### L 100.0100, L500.4050 #### [facility] [address] [place], [address] Nucleated RBC (Bld) [#/Vol] 0 10*3/uL Normal 0-5 [facility] Comment on above: Performed By: #### L 100.0100, L500.4050 #### [facility] [address] [place], [address] Platelet mean volume (Bld) [Entitic vol] 9.3 fL Normal 6.2-12.0 [facility] Comment on above: Performed By: #### L 100.0100, L500.4050 #### [facility] [address] [place], [address] Platelets (Bld) [#/Vol] 235 10*3/uL Normal 150-450 [facility] Comment on above: Performed By: #### L 100.0100, L500.4050 #### [facility] [address] [place], [address] RBC (Bld) [#/Vol] 4.92 10*6/uL Normal 4.6-6.2 [facility] Comment on above: Performed By: #### L 100.0100, L500.4050 #### [facility] [address] [place], [address] RDW SD 46.2 fl High 35.1-43.9 [facility] Comment on above: Performed By: #### L 100.0100, L500.4050 #### [facility] [address] [place], [address] WBC (Bld) [#/Vol] 8.1 10*3/uL Normal 4.4-11.0 [facility] Comment on above: Performed By: #### L 100.0100, L500.4050 #### [facility] [address] [place], [address] CTA Chest W/WO Contraston CTA Chest W/WO Contrast [facility] Imaging Services [address] [place] [address] CTA Chest W/WO Contrast MR#: [id number] Acct: [id number] Name: BEATRIS QUINN Rep #: [id number] : 1950 M 74 From: Misbah lara MD PCP: ROWENA FERRARO Status: REG ER Study: CTA Chest W/WO Contrast Date of Exam: 06/01/25 Exam# [id number] Ordering Dr: Karen Le DO PROCEDURE: CTA [...] nodules superimposed on emphysematous changes. Reading Location: [id number] CC: Dr. 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 Normal [facility] Carbon dioxide, total [Moles /volume] in Central venous bloodOrdered By: Vivi Pike on 06-01-2025 CO2 [Moles/Vol] 29.4 mmol/L 21.0-32.0 [facility] Chest PA and Lateralon 06-01 Chest PA and Lateral [facility] Imaging Services [address] [place] [address] Chest PA and Lateral MR#: [id number] Acct: [id number] Name: BEATRIS QUINN Rep #: [id number] : 1950 M 74 From: Jim Powell MD PCP: ROWENA FERRARO Status: REG ER Study: Chest PA and Lateral Date of Exam: 06/01/25 Exam# [id number] Ordering Dr: Vivi Pike DO PROCEDURE: CHEST [...] No new consolidation. 2. Granulomas. Reading Location: [id number] CC: Dr. 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, [address] Albumin/Globulin [Mass ratio] 1.8 {ratio} Normal 0.9-2.4 [facility] Comment on above: Performed By: #### L 100.0100, L500.4050 #### [facility] [address] [place], [address] ALK PHOS 67 U/L Normal 40-129 [facility] Comment on above: Performed By: #### L 100.0100, L500.4050 #### [facility] [address] [place], [address] ALT [Catalytic activity/Vol] 17 U/L Normal <=46 [facility] Comment on above: Performed By: #### L 100.0100, L500.4050 #### [facility] [address] [place], [address] AST [Catalytic activity/Vol] 23 U/L Normal <=37 [facility] Comment on above: Performed By: #### L 100.0100, L500.4050 #### [facility] [address] [place], [address] Bilirubin [Mass/Vol] 0.70 mg/dL Normal 0.00-1.30 [facility] Comment on above: Performed By: #### L 100.0100, L500.4050 #### [facility] [address] [place], [address] BUN/CRE 26.3 RATIO High 10-20 [facility] Comment on above: Performed By: #### L 100.0100, L500.4050 #### [facility] [address] [place], [address] Calcium [Mass/Vol] 9.3 mg/dL Normal 7.6-11.0 [facility] Comment on above: Performed By: #### L 100.0100, L500.4050 #### [facility] [address] [place], [address] Chloride [Moles/Vol] 100 mmol/L Normal 98-108 [facility] Comment on above: Performed By: #### L 100.0100, L500.4050 #### [facility] [address] [place], [address] CO2 [Moles/Vol] 29.4 mmol/L Normal 21.0-32.0 [facility] Comment on above: Performed By: #### L 100.0100, L500.4050 #### [facility] [address] [place], [address] Creatinine [Mass/Vol] 0.99 mg/dL Normal 0.70-1.20 [facility] Comment on above: Performed By: #### L 100.0100, L500.4050 #### [facility] [address] [place], [address] ECRCL 50.93 ml/min Normal 50-250 [facility] Comment on above: Performed By: #### L 100.0100, L500.4050 #### [facility] [address] [place], [address] GAP 8 Normal 5-15 [facility] Comment on above: Performed By: #### L 100.0100, L500.4050 #### [facility] [address] [place], [address] GFR/1.73 sq M.predicted among non-blacks MDRD (S/P/Bld) [Vol rate/Area] 80 mL/min/{1.73_m2} Normal >60 [facility] Comment on above: Result Comment: mL/m in/1.73m2 CKD-EPI Creatinine Equation (2020) Performed By: #### L 100.0100, L500.4050 #### [facility] [address] [place], [address] Globulin (S) [Mass/Vol] 2.2 g/dL Normal 2.2-4.2 [facility] Comment on above: Performed By: #### L 100.0100, L500.4050 #### [facility] [address] [place], [address] Glucose [Mass/Vol] 104 mg/dL High 70-99 [facility] Comment on above: Performed By: #### L 100.0100, L500.4050 #### [facility] [address] [place], [address] Potassium [Moles/Vol] 4.4 mmol/L Normal 3.3-5.1 [facility] Comment on above: Performed By: #### L 100.0100, L500.4050 #### [facility] [address] [place], [address] Sodium [Moles/Vol] 137 mmol/L Normal 133-145 [facility] Comment on above: Performed By: #### L 100.0100, L500.4050 #### [facility] [address] [place], [address] T PROT 6.1 g/dL Normal 5.9-8.4 [facility] Comment on above: Performed By: #### L 100.0100, L500.4050 #### [facility] [address] [place], [address] Urea nitrogen [Mass/Vol] 26 mg/dL High 4-19 [facility] Comment on above: Performed By: #### L 100.0100, L500.4050 #### [facility] [address] [place], [address] Emergency Department Summary on 06-01-2025 Emergency Department Summary [facility] Medical Records Department [address] [place] [address] Emergency Department Summary 06/01/25 MR#: [id number] Acct: [id number] Name: BEATRIS QUINN Eligio Rep #: [id number] : 1950 74 From: Vivi Pike DO [...] Recent immobilization, Recent surgery or [facility] Medical History Aortic stenosis Elevated coronary artery calcium score Urinary retention Heart murmur Anxiety On home oxygen therapy Acute hypoxemic respiratory failure Pneumonia COPD (chronic obstructive pulmonary disease) [place] (hard of hearing) Hypertension Home Medications ???Medication [...] 156/85 H (more content not included)... Normal [facility] Eosinophil percentageOrdered By: Vivi Pike on 06-01-2025 Eosinophils/100 WBC (Bld) 2.2 % 0-5 [facility] Erythrocyte distribution wid th ratioOrdered By: Vivi Pike on 06-01-2025 Erythrocyte distribution width (RBC) [Ratio] 14.4 % 11.6-14.6 [facility] Erythrocyte distribution wid th standard deviationOrdered By: Vivi Pike on 06-01-2025 Erythrocyte distribution width (RBC) [Ratio] 46.2 fl High 35.1-43.9 [facility] Glomerular filtration rate ( GFR) estimation/1.73 sq m using serum, plasma, or whole bOrdered By: Vivi Pike on 06-01-2025 GFR/1.73 sq M.predicted among non-blacks MDRD (S/P/Bld) [Vol rate/Area] 80 mL/min/{1.73_m2} >60 [facility] Comment on above: mL/min/1.73m2 CKD-EP I Creatinine Equation (2020) H AND P Exam - [place] 06-01-2025 H&P Exam - Hospitalist [facility] Medical Records Department [address] [place] [address] H P Exam - Hospitalist 06/01/25 1056 MR#: [id number] Acct: [id number] Name: BEATRIS QUINN Rep #: [id number] : 1950 74 From: Karen Le DO PCP: Michelle Ferraro, [employer]-C Status:ADM IN Location: [facility] [id number] HPI - General General Date of Admission: 06/01/25 Date of Service: 06/01/25 Chief Complaint: Shortness of breath HPI Narrative BEATRIS QUINN, is a 74 M who presented to the emergency department at [facility] on 06/01/2025 with chief complaint of [...] was made. He will be admitted to [facility] and at the time of admission I do anticipate at least 2 midnight stay. [facility] Medical History COPD (chronic obstructive pulmonary disease) Hypertension Aortic stenosis Elevated coronary artery calcium score Urinary retention Heart murmur Anxiety On home oxygen therapy Acute hypoxemic respiratory failure Pneumonia COPD (chronic obstructive pulmonary disease) [place] (hard of hearing) Hypertension Home Medications ???Medication [...] nasal congestio (more content not included)... Normal [facility] Hematocrit Auto (Bld) [Volum e fraction]Ordered By: Vivi Pike on 06-01-2025 Hematocrit (Bld) [Volume fraction] 42.7 % 40-54 [facility] Hemoglobin measurementOrdere d By: Vivi Pike on 06-01-2025 Hemoglobin (Bld) [Mass/Vol] 14.1 g/dL 13.0-16.5 [facility] Immature granulocytes/100 WB C Auto (Bld)Ordered By: Vivi Pike on 06-01-2025 Immature granulocytes/100 WBC (Bld) 0.600 % 0.0-0.9 [facility] Comment on above: IG% - Immature Granu locytes (promyelocytes, myelocytes and metamyelocytes) > 1% indicates that a LEFT SHIFT is Present. Influenza virus A and B and SARS-CoV-2 (COVID-19) and Respiratory syncytial virus RNAOrdered By: Vivi Pike on 06-01-2025 SARS-CoV-2 (COVID-19) RNA JELENA+probe Ql (Unsp spec) [facility] L501.4021on 06-01-2025 Trop T High Sen 32 ng/L High <=22 [facility] Comment on above: Performed By: #### L 501.5200, L500.2500, L100.0100 #### [facility] [address] [place], [address] Laboratory - Chemistry and C hemistry - challengeOrdered By: Vivi Pike on 06-01-2025 AST [Catalytic activity/Vol] 23 U/L <38 [facility] M100.678on 06-01-2025 M100.678 Pending SARS-CoV-2 (COVID 19) Negative INFLUENZA A Negative INFLUENZA B Negative RSV PCR Negative Normal [facility] Comment on above: Performed By: #### L 501.5200, L500.2500, L100.0100 #### [facility] [address] [place], [address] MCV (mean corpuscular volume ) determinationOrdered By: Vivi Pike on 06-01-2025 MCV (RBC) [Entitic vol] 86.8 fL 80-[address] [facility] Mean corpuscular hemoglobin (MCH) determinationOrdered By: Vivi Pike on 06-01-2025 MCH (RBC) [Entitic mass] 28.7 pg 27.0-32.0 [facility] Mean corpuscular hemoglobin concentration (MCHC) determinationOrdered By: Vivi Pike on 06-01-2025 MCHC (RBC) [Mass/Vol] 33.0 g/dL 32-36 [facility] Mean platelet volume determi nationOrdered By: Vivi Pike on 06-01-2025 Platelet mean volume (Bld) [Entitic vol] 9.3 fL 6.2-12.0 [facility] Monocyte percentageOrdered B y: Vivi Pike on 06-01-2025 Monocytes/100 WBC (Bld) 9.4 % 0-[address] [facility] Natriuretic peptide.B prohor [place] N-Terminal [Mass/volume] in Serum or PlasmaOrdered By: Karen Le on 06-01-2025 Natriuretic peptide.B prohormone N-Terminal [Mass/Vol] 273 pg/mL <900 [facility] Comment on above: Heart Failure Unlike ly: < 300 pg/mLHeart Failure Likely< 50 Years: > 450 pg/mL50-75 Years: > 900 pg/mL>75 Years: > 1800 pg/mL Neutrophil percentageOrdered By: Vivi Pike on 06-01-2025 Neutrophils/100 WBC (Bld) 71.4 % High 47-70 [facility] Nucleated red blood cell per centageOrdered By: Vivi Pike on 06-01-2025 Nucleated RBC/100 WBC (Bld) [Ratio] 0 % 0-5 [facility] Platelet countOrdered By: Sudheer Pike on 06-01-2025 Platelets (Bld) [#/Vol] 235 10*3/uL 150-450 [facility] Potassium measurement (mass/ volume)Ordered By: Viiv Pike on 06-01-2025 Potassium (Unsp spec) [Mass/Vol] 4.4 mmol/L 3.3-5.1 [facility] Pro- Brain NATRIURETIC PEPTI William 06-01-2025 Natriuretic peptide B (Bld) [Mass/Vol] 273 pg/mL Normal <=900 [facility] Comment on above: Result Comment: Hear t Failure Unlikely: < 300 pg/mL Heart Failure Likely < 50 Years: > 450 pg/mL 50-75 Years: > 900 pg/mL >75 Years: > 1800 pg/mL Performed By: #### L 501.5200, L500.2500, L100.0100 #### [facility] [address] [place] [address], [id number] RBC Auto (Bld) [#/Vol]Ordere d By: Vivi Pike on 06-01-2025 RBC (Bld) [#/Vol] 4.92 10*6/uL 4.6-6.2 [facility] RESPIRATORY PANEL MOLECULARo n 06-01-2025 RP PANEL ADENOVIRUS Not Detected INFLUENZA A Not Detected INFLUENZA A (SUBTYPE H1) Not Detected INFLUENZA A (SUBTYPE H3) Not Detected INFLUENZA B Not Detected HUMAN METAPHNEUMO Not Detected PARAINFLUENZA 1 Not Detected PARAINFLUENZA 2 Not Detected PARAINFLUENZA 3 Not Detected PARAINFLUENZA 4 Not Detected RHINOVIRUS Not Detected RSV A Not Detected RSV B Not Detected Normal [facility] Comment on above: Performed By: #### L 501.1450, L500.2500, L100.0100 #### [facility] [place] [address] [place], [address] Respiratory pathogens detect ion panel by molecular detection methodOrdered By: Karen Le on 06-01-2025 Respiratory pathogens DNA and RNA panel JELENA+probe (Resp) [facility] Serum creatinine measurement (mass/volume)Ordered By: Vivi Pike on 06-01-2025 Creatinine [Mass/Vol] 0.99 mg/dL 0.70-1.20 [facility] Serum globulin measurementOr dered By: Vivi Pike on 06-01-2025 Globulin (S) [Mass/Vol] 2.2 g/dL 2.2-4.[address] [facility] Serum glucose measurement (m ass/volume)Ordered By: Vivi Pike on 06-01-2025 Glucose [Mass/Vol] 104 mg/dL High 70-99 [facility] Serum or plasma alanine orta otransferase (ALT) measurementOrdered By: Vivi Pike on 06-01-2025 ALT [Catalytic activity/Vol] 17 U/L <47 [facility] Serum or plasma albumin christiana urement (mass/volume)Ordered By: Vivi Pike on 06-01-2025 Albumin [Mass/Vol] 4.0 g/dL 3.4-4.8 [facility] Serum or plasma albumin/glob ulin mass ratioOrdered By: Vivi Pike on 06-01-2025 Albumin/Globulin [Mass ratio] 1.8 {ratio} 0.9-2.4 [facility] Serum or plasma alkaline rachel sphatase measurementOrdered By: Vivi Pike on 06-01-2025 ALP [Catalytic activity/Vol] 67 U/L 40-129 [facility] Serum or plasma calcium christiana urement (mass/volume)Ordered By: Vvii Pike on 06-01-2025 Calcium [Mass/Vol] 9.3 mg/dL 7.6-11.0 [facility] Serum or plasma urea nitroge n measurement (mass/volume)Ordered By: Vivi Pike on 06-01-2025 Urea nitrogen [Mass/Vol] 26 mg/dL High 4-19 [facility] Sodium levelOrdered By: Jenise Pike on 06-01-2025 Sodium [Moles/Vol] 137 mmol/L 133-145 [facility] TSH DL <= 0.005 mIU/L QnOrde red By: Vivi Pike on 06-01-2025 TSH Qn 3.320 uIU/mL 0.300-4.200 [facility] Thyroid Stim Hormone (TSH)on 06-01-2025 TSH 3.320 uIU/mL Normal 0.300-4.200 [facility] Comment on above: Performed By: #### L 501.5200, L500.2500, L100.0100 #### [facility] [address] [facility] [place], [place], [id number] ([phone]) Total proteinOrdered By: Keily Pike on 06-01-2025 Protein [Mass/Vol] 6.1 g/dL 5.9-8.4 [facility] Troponin T HS 2 HRon 025 Trop T High Sen 32 ng/L High <=22 [facility] Comment on above: Performed By: #### L 499.0042 #### [facility] [address] [place], [place], [id number] Troponin T HS 4 HRon 025 Trop T High Sen 26 ng/L High <=22 [facility] Comment on above: Performed By: #### L 499.0043 #### [facility] [address] [place], [place], [id number] (084) Troponin T.cardiac [Mass/vol ume] in Serum or Plasma by High sensitivity methodOrdered By: Vivi Pike on 06-01-2025 Troponin T.cardiac High sensitivity method [Mass/Vol] 26 ng/L High <22 [facility] Troponin T.cardiac High sensitivity method [Mass/Vol] 32 ng/L High <22 [facility] Troponin T.cardiac High sensitivity method [Mass/Vol] 32 ng/L High <22 [facility] Comment on above: Delta: 17 on 5-1040 White blood cell (WBC) count Ordered By: Vivi Pike on 06-01-2025 WBC (Bld) [#/Vol] 8.1 10*3/uL 4.4-11.0 [facility] CNOVon 04-16-2025 CNOV Office Visit ([facility] ) BEATRIS QUINN ([id number]) 1950 M Date Time Provider Department 04/16/25 10:00 AM TIRGE RESTREPO [facility] During your visit today, we recorded the following information about you: Pulse Blood pressure Weight 72/minute 128/72 55.6 kg Tigre Retsrepo MD 04/16/2025 10:39 AM [facility] [...] 5 mg daily (given by [facility] physician) No weight loss, no fever [...] distribution which are most likely infectious/inflammator y. Railroad Commissioner: PurveyourRenzo Transcribe Date/Time: Oct 20 2024 1:36P Dictated by : MICAELA FONTAINE MD This examination was interpreted and the report reviewed and electronically signed by: MICAELA FONTAINE MD on Oct 20 2024 2:05PM EST IMPRESSION: 1. Lung nodules - ICD9: 793.19, ICD10: R91.8 (primary diagnosis) Ct chest 02/06/2024: Lymphadenopathy up to 14 mm Multiple nodules, some are calcified, others have neoplastic appearance, largest [id number] lateral segment RML. Cavitary type lesion EDWIN [id number] Multiple large opacities, one of them is cavitated Course of antibiotic completed PET scan 03/2024 * Numerous metabolically active bilateral lung nodules are similar to 03/27/2024. * Dominant 2.9 cm left upper lobe nodule with resolved cavitary component. Ct chest 04/2024 Compared to 03/27/2024 exam, most of the (more content not included)... Normal [facility] CT CHEST WO IVCONon 04-16-20 CT CHEST WO IVCON * * *Final Report* * * DATE OF EXAM: Apr 16 2025 8:58AM [facility] 0541 - CT CHEST WO IVCON / [...] again seen. Both lungs as well as wzup-an-dyh-type pulmonary nodules and mucoid impaction, predominantly within [...] mild, diffuse bronchiectasis. Stable nodular opacities and uyre-yz-xmj-type pulmonary nodules associated within the lungs. Mild, diffuse bronchiectasis. Secretions within the trachea and mainstem bronchi. Sequela of remote granulomatous disease. Overall, findings have not significantly changed in the interval. No radha lymphadenopathy is seen within the chest. 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 Transcribe Date/Time: Apr 17 2025 7:06A Dictated by : MIKE BLACKWOOD MD This examination was interpreted and the report reviewed and electronically signed by: MIKE BLACKWOOD MD on Apr 17 2025 4:14PM EST [id number] Normal [facility] Respiratory Cultureon 2024 RESPC Not obtained [...] 80 R Minocycline Islt ELOY S Normal [facility] Comment on above: Performed By: #### L 501.5200, L500.2500, L100.0100 #### [facility] [address] [place], [address] 12 Lead EKGon 12-02-2024 12 Lead EKG [facility] Cardiovascular Services [address] [place] [address] 12 Lead EKG 12/01/24 1117 MR#: [id number] Acct: [id number] Name: BEATRIS QUINN Rep #: [id number] : 1950 73 From: Eh Castellon MD Attending Dr: Dr. Anirudh Thompson DO Status: DIS IN Ordering Dr: Anirudh Thompson DO Date: 12/02/24 Location: [facility] Sex: M C Admitted: 12/01/24 Test Reason [...] Anterior leads Confirmed by CANDE JOHNS, EH ([id number]), greeting card editor MICHELLE ROMERO ([id number]) on 12/03/2024 8:44:47 AM Referred By: COLETTE Confirmed By: EH CASTELLON MD 12/03/2444 Date Eh Castellon MD CC: RUBBER MOLDER-C Michelle Ferraro; Dr. Anirudh Thompson, DO Signed Normal [facility] Absolute neutrophil countOrd ered By: Anirudh Thompson on 12-02-2024 Neutrophils (Bld) [#/Vol] 13.0 10*3/uL High 2.0-7.7 [facility] Anion gap in Serum or Plasma Ordered By: Anirudh Thompson on 12-02-2024 Anion gap [Moles/Vol] 10 mmol/L 5-15 [facility] BUN/creatinine ratioOrdered By: Anirudh Tohmpson on 12-02-2024 Urea nitrogen/Creatinine [Mass ratio] 24.4 mg/mg High 10-20 [facility] Basic Metabolic Profile (BMP )on 12-02-2024 BUN/CRE 24.4 RATIO High 10-20 [facility] Comment on above: Performed By: #### L 500.2500, L500.4100, L100.0100 #### [facility] Laboratory [address] [place], [address] Calcium [Mass/Vol] 9.6 mg/dL Normal 7.6-11.0 [facility] Comment on above: Performed By: #### L 500.2500, L500.4100, L100.0100 #### [facility] Laboratory [address] [place], [address] Chloride [Moles/Vol] 102 mmol/L Normal 98-108 [facility] Comment on above: Performed By: #### L 500.2500, L500.4100, L100.0100 #### [facility] [address] [place], [address] CO2 [Moles/Vol] 26.1 mmol/L Normal 21.0-32.0 [facility] Comment on above: Performed By: #### L 500.2500, L500.4100, L100.0100 #### [facility] Laboratory [address] [place], [address] Creatinine [Mass/Vol] 0.84 mg/dL Normal 0.70-1.20 [facility] Comment on above: Performed By: #### L 500.2500, L500.4100, L100.0100 #### [facility] Laboratory [address] [place], [address] ECRCL 62.26 ml/min Normal 50-250 [facility] Comment on above: Performed By: #### L 500.2500, L500.4100, L100.0100 #### [facility] Laboratory [address] [place], [address] GAP 10 Normal 5-15 [facility] Comment on above: Performed By: #### L 500.2500, L500.4100, L100.0100 #### [facility] Laboratory [address] [place], [address] GFR/1.73 sq M.predicted among non-blacks MDRD (S/P/Bld) [Vol rate/Area] 92 mL/min/{1.73_m2} Normal >60 [facility] Comment on above: Result Comment: mL/m in/1.73m2 CKD-EPI Creatinine Equation (2020) Performed By: #### L 500.2500, L500.4100, L100.0100 #### [facility] Laboratory [address] [place], [address] Glucose [Mass/Vol] 174 mg/dL High 70-99 [facility] Comment on above: Performed By: #### L 500.2500, L500.4100, L100.0100 #### [facility] Laboratory [address] [place], [address] Potassium [Moles/Vol] 4.5 mmol/L Normal 3.3-5.1 [facility] Comment on above: Performed By: #### L 500.2500, L500.4100, L100.0100 #### [facility] Laboratory [address] [place], [address] Sodium [Moles/Vol] 138 mmol/L Normal 133-145 [facility] Comment on above: Performed By: #### L 500.2500, L500.4100, L100.0100 #### [facility] [address] [place], [address] Urea nitrogen [Mass/Vol] 21 mg/dL High 4-19 [facility] Comment on above: Performed By: #### L 500.2500, L500.4100, L100.0100 #### [facility] Laboratory [address] [place], [address] Basophil percentageOrdered B y: Anirudh Thompson on 12-02-2024 Basophils/100 WBC (Bld) 0.1 % 0-[address] [facility] CBC W/Diff, Automatedon 04-0 Absolute Lymph 0.30 X10 3/uL Low 0.83-4.51 [facility] Comment on above: Performed By: #### L 500.2500, L500.4100, L100.0100 #### [facility] Laboratory [address] [place], [address] Absolute Neut 13.0 X10 3/uL High 2.0-7.7 [facility] Comment on above: Performed By: #### L 500.2500, L500.4100, L100.0100 #### [facility] Laboratory [address] [place], [address] Basophils/100 WBC (Bld) 0.1 % Normal 0-[address] [facility] Comment on above: Performed By: #### L 500.2500, L500.4100, L100.0100 #### [facility] [address] [place], [address] Eosinophils/100 WBC (Bld) 0.0 % Normal 0-5 [facility] Comment on above: Performed By: #### L 500.2500, L500.4100, L100.0100 #### [facility] Laboratory [address] [place], [address] Erythrocyte distribution width (RBC) [Ratio] 14.3 % Normal 11.6-14.6 [facility] Comment on above: Performed By: #### L 500.2500, L500.4100, L100.0100 #### [facility] Laboratory [address] [place], [address] Hematocrit (Bld) [Volume fraction] 36.6 % Low 40-54 [facility] Comment on above: Performed By: #### L 500.2500, L500.4100, L100.0100 #### [facility] Laboratory [address] [place], [address] Hemoglobin (Bld) [Mass/Vol] 12.3 g/dL Low 13.0-16.5 [facility] Comment on above: Performed By: #### L 500.2500, L500.4100, L100.0100 #### [facility] [address] [place], [address] IG% 0.500 Normal 0.0-0.9 [facility] Comment on above: Result Comment: IG% - Immature Granulocytes (promyelocytes, myelocytes and metamyelocytes) > 1% indicates that a LEFT SHIFT is Present. Performed By: #### L 500.2500, L500.4100, L100.0100 #### [facility] [address] [place], [address] Lymphocytes/100 WBC (Bld) 2.2 % Low 19-41 [facility] Comment on above: Performed By: #### L 500.2500, L500.4100, L100.0100 #### [facility] [address] [place], [address] MCH (RBC) [Entitic mass] 29.3 pg Normal 27.0-32.0 [facility] Comment on above: Performed By: #### L 500.2500, L500.4100, L100.0100 #### [facility] Laboratory [address] [place], [address] MCHC (RBC) [Mass/Vol] 33.6 g/dL Normal 32-36 [facility] Comment on above: Performed By: #### L 500.2500, L500.4100, L100.0100 #### [facility] [address] [place], [address] MCV (RBC) [Entitic vol] 87.1 fL Normal 80-94 [facility] Comment on above: Performed By: #### L 500.2500, L500.4100, L100.0100 #### [facility] [address] [place], [address] Monocytes/100 WBC (Bld) 2.0 % Normal 0-10 [facility] Comment on above: Performed By: #### L 500.2500, L500.4100, L100.0100 #### [facility] [address] [place], [address] Neutrophils/100 WBC (Bld) 95.2 % High 47-70 [facility] Comment on above: Performed By: #### L 500.2500, L500.4100, L100.0100 #### [facility] [address] [place], [address] Nucleated RBC (Bld) [#/Vol] 0 10*3/uL Normal 0-5 [facility] Comment on above: Performed By: #### L 500.2500, L500.4100, L100.0100 #### [facility] Laboratory [address] [place], [address] Platelet mean volume (Bld) [Entitic vol] 9.9 fL Normal 6.2-12.0 [facility] Comment on above: Performed By: #### L 500.2500, L500.4100, L100.0100 #### [facility] Laboratory [address] [place], [address] Platelets (Bld) [#/Vol] 294 10*3/uL Normal 150-450 [facility] Comment on above: Performed By: #### L 500.2500, L500.4100, L100.0100 #### [facility] Laboratory [address] [place], [address] RBC (Bld) [#/Vol] 4.20 10*6/uL Low 4.6-6.2 [facility] Comment on above: Performed By: #### L 500.2500, L500.4100, L100.0100 #### [facility] Laboratory [address] [place], [address] RDW SD 45.8 fl High 35.1-43.9 [facility] Comment on above: Performed By: #### L 500.2500, L500.4100, L100.0100 #### [facility] [address] [place], [address] WBC (Bld) [#/Vol] 13.7 10*3/uL High 4.4-11.0 [facility] Comment on above: Performed By: #### L 500.2500, L500.4100, L100.0100 #### [facility] Laboratory [address] [place], [address] Calculated very low density lipoprotein (VLDL) cholesterol measurementOrdered By: Anirudh Thompson on 12-02-2024 VLDL Cholesterol 7 mg/dL 5-40 [facility] Carbon dioxide, total [Moles /volume] in Central venous bloodOrdered By: Anirudh Thompson on 12-02-2024 CO2 [Moles/Vol] 26.1 mmol/L 21.0-32.0 [facility] Cardiovascular stress test r eportOrdered By: Eh Castellon on 12-02-2024 Study report [facility] Cardi[facility] Services [address] [place] [address] MR#: [id number] Acct: [id number] Name: BEATRIS QUINN Rep #: [id number] : 1950 73 From: Eh Castellon MD [...] 1512 Date _ Eh Castellon MD CC: [employer] Michelle Ferraro; Dr. Anirudh Thompson, DO; Todd Valdovinos DO ~ Date Dictated: 12/02/241505 Date Transcribed: 12/02/241505 Railroad Commissioner: [place] Signed [facility] Work Phone: Chloride assayOrdered By: Yael Thompson on 12-02-2024 Chloride [Moles/Vol] 102 mmol/L 98-108 [facility] Eosinophil percentageOrdered By: Anirudh Thompson on 12-02-2024 Eosinophils/100 WBC (Bld) 0.0 % 0-5 [facility] Erythrocyte distribution wid th (RBC) [Ratio]Ordered By: Anirudh Thompson on 12-02-2024 Erythrocyte distribution width (RBC) [Entitic vol] 45.8 fL High 35.1-43.9 [facility] Erythrocyte distribution wid th ratioOrdered By: Anirudh Thompson on 12-02-2024 Erythrocyte distribution width (RBC) [Ratio] 14.3 % 11.6-14.6 [facility] Estimation of creatinine tiffany aranceOrdered By: Anirudh Thompson on 12-02-2024 Estimated Creatinine Clearance Calc 62.26 ml/min 50-250 [facility] GFR/1.73 sq M.predicted ruby g non-blacks MDRD (S/P/Bld) [Vol rate/Area]Ordered By: Anirudh Thompson on 12-02-2024 Estimated GFR (MDRD) Non-Af Amer 92 >60 [facility] Comment on above: mL/min/1.73m2 CKD-EP I Creatinine Equation (2020) Gram Stainon 12-02-2024 GS Not obtained in 1 hr , induce w/nebulized 0.9% NaCL Acceptable Specimen? Yes (<25 Epithelial cells per/lpf) Gram Stain 4+ Gram negative rods 2+ Gram positive cocci Rare Gram positive rods 2+ White Blood Cells 1+ Epithelial cells Normal [facility] Comment on above: Performed By: #### L 501.5200, L500.2500, L100.0100 #### [facility] [place], [address] Hematocrit Auto (Bld) [Volum e fraction]Ordered By: Anirudh Thompson on 12-02-2024 Hematocrit (Bld) [Volume fraction] 36.6 % Low 40-54 [facility] Hemoglobin measurementOrdere d By: Anirudh Thompson on 12-02-2024 Hemoglobin (Bld) [Mass/Vol] 12.3 g/dL Low 13.0-16.5 [facility] Immature granulocytes/100 WB C Auto (Bld)Ordered By: Anirudh Thompson on 12-02-2024 Immature granulocytes/100 WBC (Bld) 0.500 % 0.0-0.9 [facility] Comment on above: IG% - Immature Granu locytes (promyelocytes, myelocytes and metamyelocytes) > 1% indicates that a LEFT SHIFT is Present. L. pneumophila Ag Ql (U)Orde red By: Anirudh Thompson on 12-02-2024 Legionella Antigen [facility] LDL calc ser/plasOrdered By: Anirudh Thompson on 12-02-2024 LDL Cholesterol, Calculated 95 mg/dL [facility] Comment on above: Avfjyqiknk=753-360 m g/dL & Higher Eztt=274 mg/dL or greater Legionella Antigen Urineon 0 [...] been changed. 12/02/24 1326 by REGINALD Wang [facility] Comment on above: Performed By: #### L 501.5200, L500.2500, L100.0100 #### [facility] Laboratory [address] [place], [address] Lipid Profileon 12-02-2024 CHOL:HDL 2.37 Normal [facility] Comment on above: Performed By: #### L 501.5200, L500.2500, L100.0100 #### [facility] Laboratory [address] [place], [address] Cholesterol [Mass/Vol] 177 mg/dL Normal <=200 [facility] Comment on above: Result Comment: Chol esterol level, Desirable <200 mg/dL Borderline high cholesterol 200-239 mg/dL High cholesterol >=240 mg/dL Recommendations of the NCEP Adult Treatment Panel for the following risk-cutoff thresholds for the [place] population. Performed By: #### L 501.5200, L500.2500, L100.0100 #### [facility] Laboratory [address] [place], [address] Cholesterol in HDL [Mass/Vol] 75 mg/dL Normal [facility] Comment on above: Result Comment: [place] Cholesterol Education Program (NCEP) guidelines: <40 mg/dL: Low HDL-cholesterol (major risk factor for CHD) >= 60 mg/dL: High HDL-cholesterol (negative risk factor for CHD) HDL-cholesterol is affected by a number of factors, e.g. smoking, exercise, hormones, sex and age. Performed By: #### L 501.5200, L500.2500, L100.0100 #### [facility] Laboratory [address] [place], [address] Cholesterol in LDL [Mass/Vol] 95 mg/dL Normal [facility] Comment on above: Result Comment: Bord pigujg=599-026 mg/dL Higher Pwcm=577 mg/dL or greater Performed By: #### L 501.5200, L500.2500, L100.0100 #### [facility] Laboratory [address] [place], [address] Cholesterol in VLDL [Mass/Vol] 7 mg/dL Normal 5-40 [facility] Comment on above: Performed By: #### L 501.5200, L500.2500, L100.0100 #### [facility] Laboratory [address] [facility] [place], [address] Triglyceride [Mass/Vol] 36 mg/dL Normal [facility] Comment on above: Result Comment: The drugs N-Acetylcysteine and Metamizole may falsely depress this assay. Normal range: <150 mg/dL Borderline High: 150-199 mg/dL High: 200-499 mg/dL Very High: >500 mg/dL Performed By: #### L 501.5200, L500.2500, L100.0100 #### [facility] Laboratory [address] [facility] [address] [place], [place], [address] Lymphocytes Auto (Unsp spec) [#/Vol]Ordered By: Anirudh Thompson on 12-02-2024 Lymphocytes (Bld) [#/Vol] 0.30 10*3/uL Low 0.83-4.51 [facility] Lymphocytes/100 WBC Auto (Un sp spec)Ordered By: Anirudh Thompson on 12-02-2024 Lymphocytes/100 WBC (Bld) 2.2 % Low 19-41 [facility] MCV (mean corpuscular volume ) determinationOrdered By: Anirudh Thompson on 12-02-2024 MCV (RBC) [Entitic vol] 87.1 fL 80-94 [facility] Mean corpuscular hemoglobin (MCH) determinationOrdered By: Anirudh Thompson on 12-02-2024 MCH (RBC) [Entitic mass] 29.3 pg 27.0-32.0 [facility] Mean corpuscular hemoglobin concentration (MCHC) determinationOrdered By: Anirudh Thompson on 12-02-2024 MCHC (RBC) [Mass/Vol] 33.6 g/dL 32-36 [facility] Mean platelet volume determi nationOrdered By: Anirudh Thompson on 12-02-2024 Platelet mean volume (Bld) [Entitic vol] 9.9 fL 6.2-12.0 [facility] Monocyte percentageOrdered B y: Anirudh Thompson on 12-02-2024 Monocytes/100 WBC (Bld) 2.0 % 0-[address] [facility] Neutrophil percentageOrdered By: Anirudh Thompson on 12-02-2024 Neutrophils/100 WBC (Bld) 95.2 % High 47-70 [facility] Nucleated red blood cell per centageOrdered By: Anirudh Thompson on 12-02-2024 Nucleated RBC/100 WBC (Bld) [Ratio] 0 % 0-5 [facility] Platelet countOrdered By: Yael Thompson on 12-02-2024 Platelets (Bld) [#/Vol] 294 10*3/uL 150-450 [facility] Potassium (Unsp spec) [Mass/ Vol]Ordered By: Anirudh Thompson on 12-02-2024 Potassium [Moles/Vol] 4.5 mmol/L 3.3-5.1 [facility] RBC Auto (Bld) [#/Vol]Ordere d By: Anirudh Thompson on 12-02-2024 RBC (Bld) [#/Vol] 4.20 10*6/uL Low 4.6-6.2 [facility] Screening total cholesterol/ high density lipoprotein (HDL) cholesterol ratioOrdered By: Anirudh Thompson on 12-02-2024 Cholesterol.total/Choles terol in HDL [Mass ratio] 2.37 {ratio} [facility] Serum creatinine measurement (mass/volume)Ordered By: Anirudh Thompson on 12-02-2024 Creatinine [Mass/Vol] 0.84 mg/dL 0.70-1.20 [facility] Serum glucose measurement (m ass/volume)Ordered By: Anirudh Thompson on 12-02-2024 Glucose [Mass/Vol] 174 mg/dL High 70-99 [facility] Serum or plasma calcium christiana urement (mass/volume)Ordered By: Anirudh Thompson on 12-02-2024 Calcium [Mass/Vol] 9.6 mg/dL 7.6-11.0 [facility] Serum or plasma cholesterol in HDL measurement (mass/volume)Ordered By: Anirudh Thompson on 12-02-2024 Cholesterol in HDL [Mass/Vol] 75 mg/dL >40 [facility] Comment on above: National Cholesterol Education Program (NCEP) guidelines:<40 mg/dL: Low HDL-cholesterol (major risk factor for CHD)>= 60 mg/dL: High HDL-cholesterol (negative risk factor for CHD)HDL-cholesterol is affected by a number of factors, e.g. smoking, exercise, hormones, sex and age. Serum or plasma cholesterol measurement (mass/volume)Ordered By: Anirudh Thompson on 12-02-2024 Cholesterol [Mass/Vol] 177 mg/dL <201 [facility] Comment on above: Cholesterol level, D esirable <200 mg/dLBorderline high cholesterol 200-239 mg/dLHigh cholesterol >=240 mg/dLRecommendations of the NCEP Adult Treatment Panel for the following risk-cutoff thresholds for the [place] population. Serum or plasma urea nitroge n measurement (mass/volume)Ordered By: Anirudh Thompson on 12-02-2024 Urea nitrogen [Mass/Vol] 21 mg/dL High 4-19 [facility] Sodium levelOrdered By: Anirudh Thompson on 12-02-2024 Sodium [Moles/Vol] 138 mmol/L 133-145 [facility] Strep pneumoniae Antig(UR,CS F)on 12-02-2024 STPAG [...] Test Negative URINE (See interpretation below) Normal [facility] Comment on above: Performed By: #### L 501.5200, L500.2500, L100.0100 #### [facility] Laboratory [address] [facility] [place], [place], [address] Streptococcus pneumoniae ant igen assayOrdered By: Anirudh Thompson on 12-02-2024 Streptococcus pneumoniae Antigen (M [facility] Stress Reporton 12-02-2024 Stress Report [facility] [address] [place] [address] MR#: [id number] Acct: [id number] Name: BEATRIS QUINN Rep #: [id number] : 1950 73 From: Eh Castellon MD Primary Care: Michelle Ferraro, [employer]-C Status: ADM IN Referring Dr: Sex: M [...] 12/02/24 1512 Date Eh Castellon MD CC: RUBBER MOLDER-C Michelle Ferraro; Dr. Anirudh Thompson DO; Todd Valdovinos DO Date Dictated: 12/02/24 1506 Date Transcribed: 12/02/241505 Railroad Commissioner: [place] Signed Normal [facility] Triglycerides measurementOrd ered By: Anirudh Thompson on 12-02-2024 Triglyceride [Mass/Vol] 36 mg/dL <[address] [facility] Comment on above: The drugs N-Acetylcy steine and Metamizole may falsely depress this assay. Normal range: <150 mg/dLBorderline High: 150-199 mg/dLHigh: 200-499 mg/dLVery High: >500 mg/dL White blood cell (WBC) count Ordered By: Anirudh Thompson on 12-02-2024 WBC (Bld) [#/Vol] 13.7 10*3/uL High 4.4-11.0 [facility] 12 Lead EKGon 12-01-2024 12 Lead EKG [facility] Cardiovascular Services [address] [place] [address] 12 Lead EKG 12/02/24 0535 MR#: [id number] Acct: [id number] Name: BEATRIS QUINN Rep #: [id number] : 1950 73 From: Eh Castellon MD Attending Dr: Dr. Anirudh Thompson DO Status: DIS IN Ordering Dr: Anirudh Thompson DO Date: 12/01/24 Location: [facility] Sex: M C Admitted: 12/01/24 Test Reason [...] UNCONFIRMED Confirmed by EH CASTELLON MD ([id number]), greeting card editor MICHELLE ROMERO ([id number]) on 12/03/2024 8:44:29 AM Referred By: Confirmed By: EH CASTELLON MD 12/03/24 0844 Date Eh Castellon MD CC: VIVEK Ferraro; Dr. Anirudh Thompson DO Signed Normal [facility] Absolute neutrophil countOrd ered By: Todd Valdovinos on 12-01-2024 Neutrophils (Bld) [#/Vol] 12.1 10*3/uL High 2.0-7.7 [facility] Anion gap in Serum or Plasma Ordered By: Todd Valdovinos on 12-01-2024 Anion gap [Moles/Vol] 12 mmol/L - [facility] BUN/creatinine ratioOrdered By: Todd Valdovinos on 12-01-2024 Urea nitrogen/Creatinine [Mass ratio] 18.4 mg/mg - [facility] Basic Metabolic Profile (BMP )on 12-01-2024 BUN/CRE 18.4 RATIO Normal - [facility] Comment on above: Performed By: #### L 501.5200, L500.2500, L100.0100 #### [facility] Laboratory [address] [place], [address] Calcium [Mass/Vol] 9.4 mg/dL Normal 7.6-11.0 [facility] Comment on above: Performed By: #### L 501.5200, L500.2500, L100.0100 #### [facility] Laboratory [address] [place], [address] Chloride [Moles/Vol] 100 mmol/L Normal 98-108 [facility] Comment on above: Performed By: #### L 501.5200, L500.2500, L100.0100 #### [facility] [address] [place], [address] CO2 [Moles/Vol] 26.8 mmol/L Normal 21.0-32.0 [facility] Comment on above: Performed By: #### L 501.5200, L500.2500, L100.0100 #### [facility] Laboratory [address] [place], [address] Creatinine [Mass/Vol] 0.93 mg/dL Normal 0.70-1.20 [facility] Comment on above: Performed By: #### L 501.5200, L500.2500, L100.0100 #### [facility] [address] [place], [address] ECRCL 57.13 ml/min Normal 50-250 [facility] Comment on above: Performed By: #### L 501.5200, L500.2500, L100.0100 #### [facility] [address] [place], [address] GAP 12 Normal 5-15 [facility] Comment on above: Performed By: #### L 501.5200, L500.2500, L100.0100 #### [facility] Laboratory [address] [place], [address] GFR/1.73 sq M.predicted among non-blacks MDRD (S/P/Bld) [Vol rate/Area] 87 mL/min/{1.73_m2} Normal >60 [facility] Comment on above: Result Comment: mL/m in/1.73m2 CKD-EPI Creatinine Equation (2020) Performed By: #### L 501.5200, L500.2500, L100.0100 #### [facility] Laboratory [address] [place], [address] Glucose [Mass/Vol] 229 mg/dL High 70-99 [facility] Comment on above: Performed By: #### L 501.5200, L500.2500, L100.0100 #### [facility] Laboratory [address] [place], [address] Potassium [Moles/Vol] 4.2 mmol/L Normal 3.3-5.1 [facility] Comment on above: Performed By: #### L 501.5200, L500.2500, L100.0100 #### [facility] [address] [place], [address] Sodium [Moles/Vol] 139 mmol/L Normal 133-145 [facility] Comment on above: Performed By: #### L 501.5200, L500.2500, L100.0100 #### [facility] [address] [place], [address] Urea nitrogen [Mass/Vol] 17 mg/dL Normal 4-19 [facility] Comment on above: Performed By: #### L 501.5200, L500.2500, L100.0100 #### [facility] Laboratory [address] [place], [address] Basophil percentageOrdered B y: Todd Valdovinos on 12-01-2024 Basophils/100 WBC (Bld) 0.2 % 0-[address] [facility] CBC W/Diff, Automatedon Absolute Lymph 0.40 X10 3/uL Low 0.83-4.51 [facility] Comment on above: Performed By: #### L 501.5200, L500.2500, L100.0100 #### [facility] Laboratory [address] [place], [address] Absolute Neut 12.1 X10 3/uL High 2.0-7.7 [facility] Comment on above: Performed By: #### L 501.5200, L500.2500, L100.0100 #### [facility] Laboratory [address] [place], [address] Basophils/100 WBC (Bld) 0.2 % Normal 0-[address] [facility] Comment on above: Performed By: #### L 501.5200, L500.2500, L100.0100 #### [facility] [address] [place], [address] Eosinophils/100 WBC (Bld) 0.0 % Normal 0-5 [facility] Comment on above: Performed By: #### L 501.5200, L500.2500, L100.0100 #### [facility] [address] [place], [address] Erythrocyte distribution width (RBC) [Ratio] 14.1 % Normal 11.6-14.6 [facility] Comment on above: Performed By: #### L 501.5200, L500.2500, L100.0100 #### [facility] [address] [place], [address] Hematocrit (Bld) [Volume fraction] 41.4 % Normal 40-54 [facility] Comment on above: Performed By: #### L 501.5200, L500.2500, L100.0100 #### [facility] [address] [place], [address] Hemoglobin (Bld) [Mass/Vol] 13.7 g/dL Normal 13.0-16.5 [facility] Comment on above: Performed By: #### L 501.5200, L500.2500, L100.0100 #### [facility] [address] [place], [address] IG% 0.600 Normal 0.0-0.9 [facility] Comment on above: Result Comment: IG% - Immature Granulocytes (promyelocytes, myelocytes and metamyelocytes) > 1% indicates that a LEFT SHIFT is Present. Performed By: #### L 501.5200, L500.2500, L100.0100 #### [facility] [address] [place], [address] Lymphocytes/100 WBC (Bld) 3.0 % Low 19-41 [facility] Comment on above: Performed By: #### L 501.5200, L500.2500, L100.0100 #### [facility] [address] [place], [address] MCH (RBC) [Entitic mass] 28.9 pg Normal 27.0-32.0 [facility] Comment on above: Performed By: #### L 501.5200, L500.2500, L100.0100 #### [facility] [address] [place], [address] MCHC (RBC) [Mass/Vol] 33.1 g/dL Normal 32-36 [facility] Comment on above: Performed By: #### L 501.5200, L500.2500, L100.0100 #### [facility] [address] [place], [address] MCV (RBC) [Entitic vol] 87.3 fL Normal 80-[address] [facility] Comment on above: Performed By: #### L 501.5200, L500.2500, L100.0100 #### [facility] [address] [place], [address] Monocytes/100 WBC (Bld) 5.1 % Normal 0-10 [facility] Comment on above: Performed By: #### L 501.5200, L500.2500, L100.0100 #### [facility] [address] [place], [address] Neutrophils/100 WBC (Bld) 91.1 % High 47-70 [facility] Comment on above: Performed By: #### L 501.5200, L500.2500, L100.0100 #### [facility] [address] [place], [address] Nucleated RBC (Bld) [#/Vol] 0 10*3/uL Normal 0-5 [facility] Comment on above: Performed By: #### L 501.5200, L500.2500, L100.0100 #### [facility] [address] [place], [address] Platelet mean volume (Bld) [Entitic vol] 9.3 fL Normal 6.2-12.0 [facility] Comment on above: Performed By: #### L 501.5200, L500.2500, L100.0100 #### [facility] [address] [place], [address] Platelets (Bld) [#/Vol] 313 10*3/uL Normal 150-450 [facility] Comment on above: Performed By: #### L 501.5200, L500.2500, L100.0100 #### [facility] [address] [place], [address] RBC (Bld) [#/Vol] 4.74 10*6/uL Normal 4.6-6.2 [facility] Comment on above: Performed By: #### L 501.5200, L500.2500, L100.0100 #### [facility] [address] [place], [address] RDW SD 45.2 fl High 35.1-43.9 [facility] Comment on above: Performed By: #### L 501.5200, L500.2500, L100.0100 #### [facility] [address] [place], [address] WBC (Bld) [#/Vol] 13.3 10*3/uL High 4.4-11.0 [facility] Comment on above: Performed By: #### L 501.5200, L500.2500, L100.0100 #### [facility] [address] [place], [address] Carbon dioxide, total [Moles /volume] in Central venous bloodOrdered By: Todd Valdovinos on 12-01-2024 CO2 [Moles/Vol] 26.8 mmol/L 21.0-32.0 [facility] Chest PA and Lateralon 12-01 Chest PA and Lateral [facility] Imaging Services [address] [place] [address] Chest PA and Lateral MR#: [id number] Acct: [id number] Name: BEATRIS QUINN Rep #: [id number] : 1950 M 73 From: Sahara Brooks i, MD PCP: Dr. Jr Ryan, DO Status: REG ER Study: Chest PA and Lateral Date of Exam: 12/01/24 Exam# [id number] Ordering Dr: Todd Valdovinos DO PROCEDURE: CHEST [...] process. Recommend follow-up until resolution. Reading Location: [facility] CC: Dr. Jr Ryan DO; Todd Valdovinos DO Railroad Commissioner: Signed Normal [facility] Chloride assayOrdered By: Aziza Valdovinos on 12-01-2024 Chloride [Moles/Vol] 100 mmol/L 98-108 [facility] Emergency Department Summary on 12-01-2024 Emergency Department Summary [facility] Medical Records Department [address] [place] [address] Emergency Department Summary 12/01/24 MR#: [id number] Acct: [id number] Name: BEATRIS QUINN Rep #: [id number] : 1950 73 From: Todd Valdovinos DO [...] influenza which was roughly 1 year ago [facility] Medical History Aortic stenosis Elevated coronary artery calcium score Urinary retention Heart murmur Anxiety On home oxygen therapy Acute hypoxemic respiratory failure Pneumonia COPD (chronic obstructive pulmonary disease) [place] (hard of hearing) Hypertension Home Medications ???Medication [...] or compromise (more content not included)... Normal [facility] Eosinophil percentageOrdered By: Todd Valdovinos on 12-01-2024 Eosinophils/100 WBC (Bld) 0.0 % 0-5 [facility] Erythrocyte distribution wid th (RBC) [Ratio]Ordered By: Todd Valdovinos on 12-01-2024 Erythrocyte distribution width (RBC) [Entitic vol] 45.2 fL High 35.1-43.9 [facility] Erythrocyte distribution wid th ratioOrdered By: Todd Valdovinos on 12-01-2024 Erythrocyte distribution width (RBC) [Ratio] 14.1 % 11.6-14.6 [facility] Estimation of creatinine tiffany aranceOrdered By: Todd Valdovinos on 12-01-2024 Estimated Creatinine Clearance Calc 57.13 ml/min 50-250 [facility] GFR/1.73 sq M.predicted ruby g non-blacks MDRD (S/P/Bld) [Vol rate/Area]Ordered By: Todd Valdovinos on 12-01-2024 Estimated GFR (MDRD) Non-Af Amer 87 >60 [facility] Comment on above: mL/min/1.73m2 CKD-EP I Creatinine Equation (2020) Gram stainOrdered By: Anirudh drake on 12-01-2024 Microscopic observation Gram stain Nom (Unsp spec) [facility] H AND P Exam - Hospitaliston 12-01-2024 H&P Exam - Hospitalist [facility] Medical Records Department [address] [place] [address] H P Exam - Hospitalist 12/01/24 0831 MR#: [id number] Acct: [id number] Name: BEATRIS QUINN Rep #: [id number] : 1950 73 From: Anirudh Thompson DO [...] better with rest. CP does not radiate. [facility] Medical History Aortic stenosis Elevated coronary artery calcium score Urinary retention Heart murmur Anxiety On home oxygen therapy Acute hypoxemic respiratory failure Pneumonia COPD (chronic obstructive pulmonary disease) [place] (hard of hearing) Hypertension Home Medications ???Medication [...] 4.74, Hgb (more content not included)... Normal [facility] Hematocrit Auto (Bld) [Volum e fraction]Ordered By: Todd Valdovinos on 12-01-2024 Hematocrit (Bld) [Volume fraction] 41.4 % 40-54 [facility] Hemoglobin measurementOrdere d By: Todd Valdovinos on 12-01-2024 Hemoglobin (Bld) [Mass/Vol] 13.7 g/dL 13.0-16.5 [facility] Immature granulocytes/100 WB C Auto (Bld)Ordered By: Todd Valdovinos on 12-01-2024 Immature granulocytes/100 WBC (Bld) 0.600 % 0.0-0.9 [facility] Comment on above: IG% - Immature Granu locytes (promyelocytes, myelocytes and metamyelocytes) > 1% indicates that a LEFT SHIFT is Present. Influenza virus A and B and SARS-CoV-2 (COVID-19) and Respiratory syncytial virus RNAOrdered By: Todd Valdovinos on 12-01-2024 SARS-CoV-2 (COVID-19) RNA JELENA+probe Ql (Unsp spec) [facility] L499.0042on 12-01-2024 Trop T High Sen 16 ng/L Normal <=22 [facility] Comment on above: Performed By: #### L 501.5200, L500.2500, L100.0100 #### [facility] [address] [place], [address] L499.0043on 12-01-2024 Trop T High Sen 20 ng/L Normal <=22 [facility] Comment on above: Performed By: #### L 499.0043 #### [facility] [address] [place], [address] L501.4021on 12-01-2024 Trop T High Sen 17 ng/L Normal <=22 [facility] Comment on above: Performed By: #### L 501.5200, L500.2500, L100.0100 #### [facility] [address] [place], [address] Lymphocytes Auto (Unsp spec) [#/Vol]Ordered By: Todd Valdovinos on 12-01-2024 Lymphocytes (Bld) [#/Vol] 0.40 10*3/uL Low 0.83-4.51 [facility] Lymphocytes/100 WBC Auto (Un sp spec)Ordered By: Todd Valdovinos on 12-01-2024 Lymphocytes/100 WBC (Bld) 3.0 % Low 19-41 [facility] M100.678on 12-01-2024 M100.678 SARS-CoV-2 (COVID 19 ) Negative INFLUENZA A Negative INFLUENZA B Negative RSV PCR Negative Normal [facility] Comment on above: Performed By: #### L 501.5200, L500.2500, L100.0100 #### [facility] [address] [place], [address] MCV (mean corpuscular volume ) determinationOrdered By: Todd Valdovinos on 12-01-2024 MCV (RBC) [Entitic vol] 87.3 fL 80-[address] [facility] Magnesiumon 12-01-2024 Magnesium [Mass/Vol] 2.0 mg/dL Normal 1.5-2.2 [facility] Comment on above: Performed By: #### L 501.5200, L500.2500, L100.0100 #### [facility] [address] [place], [address] Magnesium (Unsp spec) [Mass/ Vol]Ordered By: Todd Valdovinos on 12-01-2024 Magnesium [Mass/Vol] 2.0 mg/dL 1.5-2.2 [facility] Mean corpuscular hemoglobin (MCH) determinationOrdered By: Todd Valdovinos on 12-01-2024 MCH (RBC) [Entitic mass] 28.9 pg 27.0-32.0 [facility] Mean corpuscular hemoglobin concentration (MCHC) determinationOrdered By: Todd Valdovinos on 12-01-2024 MCHC (RBC) [Mass/Vol] 33.1 g/dL 32-36 [facility] Mean platelet volume determi nationOrdered By: Todd Valdovinos on 12-01-2024 Platelet mean volume (Bld) [Entitic vol] 9.3 fL 6.2-12.0 [facility] Monocyte percentageOrdered B y: Todd Valdovinos on 12-01-2024 Monocytes/100 WBC (Bld) 5.1 % 0-[address] [facility] Neutrophil percentageOrdered By: Todd Valdovinos on 12-01-2024 Neutrophils/100 WBC (Bld) 91.1 % High 47-70 [facility] Nucleated red blood cell per centageOrdered By: Todd Valdovinos on 12-01-2024 Nucleated RBC/100 WBC (Bld) [Ratio] 0 % 0-5 [facility] Platelet countOrdered By: Aziza Valdovinos on 12-01-2024 Platelets (Bld) [#/Vol] 313 10*3/uL 150-450 [facility] Potassium (Unsp spec) [Mass/ Vol]Ordered By: Todd Valdovinos on 12-01-2024 Potassium [Moles/Vol] 4.2 mmol/L 3.3-5.1 [facility] RBC Auto (Bld) [#/Vol]Ordere d By: Todd Valdovinos on 12-01-2024 RBC (Bld) [#/Vol] 4.74 10*6/uL 4.6-6.2 [facility] Serum creatinine measurement (mass/volume)Ordered By: Todd Valdovinos on 12-01-2024 Creatinine [Mass/Vol] 0.93 mg/dL 0.70-1.20 [facility] Serum glucose measurement (m ass/volume)Ordered By: Todd Valdovinos on 12-01-2024 Glucose [Mass/Vol] 229 mg/dL High 70-99 [facility] Serum or plasma calcium christiana urement (mass/volume)Ordered By: Todd Valdovinos on 12-01-2024 Calcium [Mass/Vol] 9.4 mg/dL 7.6-11.0 [facility] Serum or plasma urea nitroge n measurement (mass/volume)Ordered By: Todd Valdovinos on 12-01-2024 Urea nitrogen [Mass/Vol] 17 mg/dL 4-19 [facility] Sodium levelOrdered By: Joseph Valdovinos on 12-01-2024 Sodium [Moles/Vol] 139 mmol/L 133-145 [facility] Troponin T.cardiac High sens itivity method [Mass/Vol]Ordered By: Anirudh Thompson on 12-01-2024 Troponin T High Sensitivity 4 Hour 20 ng/L <22 [facility] Troponin T High Sensitivity 2 Hour 16 ng/L <22 [facility] Troponin T High Sensitivity 17 ng/L <22 [facility] White blood cell (WBC) count Ordered By: Todd Valdovinos on 12-01-2024 WBC (Bld) [#/Vol] 13.3 10*3/uL High 4.4-11.0 [facility] CNPNon 10-26-2024 CNPN Telephone (PULMMN) BEATRIS QUINN ([id number]) 1950 M Date Time Provider Department 10/26/24 [...] disease. Patient can be reached by calling [phone]. Tigre Restrepo MD 10/27/2024 11:03 AM Signed [...] Reason for Visit: LMTCB [1226] Patient Request [[id number]] Cmt: Message regarding ID Prescriptions as of [...] Encounter Status:Closed by CANDELARIA SINGH on 10/26/24 [facility] Bertrand 10-19-2024 MARTHAN Telephone ([facility]) BEATRIS QUINN ([id number]) 1950 M Date Time Provider Department 10/19/24 TIGRE RESTREPO [facility] During your visit today, we recorded the [...] Maybe send a letter? Glendy Dial, EM [facility] Clinical (2:29 PM) KK Please try [...] Encounter Status:Closed by TIGRE RESTREPO on 10/19/24 [facility] CNOVon 10-16-2024 [facility] Office Visit ([facility] ) BEATRIS QUINN ([id number]) 1950 M Date Time Provider Department 10/16/24 3:30 PM TIGRE RESTREPO [facility] During your visit today, we recorded the [...] report showed stable lung opacities Works in [employer] From [facility] Social History Tobacco Use Smoking status: [...] technique due to different penetrations the films. Railroad Commissioner: [facility] Transcribe Date/Time: Mar 24 2024 1:44P Dictated [...] be communicated with the ordering provider via [employer] staff message or phone message by [facility] within 2 business days of report finalization. --END OF FINDING-- Railroad Commissioner: (more content not included)... Normal [facility] CT CHEST WO IVCONon 10-16-19 CT CHEST WO IVCON * * *Final Report* * * DATE OF EXAM: Oct 16 2024 7:11AM [facility] 0541 - CT CHEST WO IVCON / [...] distribution which are most likely infectious/inflammator y. Railroad Commissioner: [employer] Transcribe Date/Time: Oct 20 2024 1:36P Dictated by : MICAELA FONTAINE MD This examination was interpreted and the report reviewed and electronically signed by: MICAELA FONTAINE MD on Oct 20 2024 2:05PM EST [id number] [facility] 10-09-2024 CNPN Telephone (PULMMN) BEATRIS QUINN ([id number]) 1950 M Date Time Provider Department 10/09/24 TIGRE RESTREPO [facility]MM[facility] During your visit today, we recorded the following information about you: Candelaria Singh 10/09/2024 10:22 AM Signed Patient called COPD coordinator asking to message Dr. Restrepo requesting to add on testing at his next office visit on 10/16 in [place]. Patient states he will arrive one hour early for X-ray, CT scan or other testing. Patient has been calling the appointment line but has been on hold for too long. Please reach out to patient and confirm testing will be scheduled and advise of arrival time. Patient phone: [phone]. Tigre Restrepo MD 10/09/2024 10:39 AM Signed [...] Fully Assessed Reason for Visit: Patient Request [[id number]] Cmt: Testing Prescriptions as of 10/12/2024 - [...] Encounter Status:Closed by TIGRE RESTREPO on 10/09/24 [facility] Telephone ([facility]) BEATRIS QUINN ([id number]) 1950 Date Time Provider Department 07/01/24 TIGRE RESTREPO [facility] During your visit today, we recorded the following information about you: Tigre Restrepo MD 07/01/2024 3:39 PM Signed Please check if he has seen the infectious disease specialist. Nothing in [facility]. Thanks Kacey Che LPN 07/01/2024 3:59 PM [...] lung (HCC) [J15.1] Order(s):CT CHEST WO WILLIAMON [[id number]] Order #: [id number] FUTURE Prescriptions as of 07/08/2024 - fluticasone-umeclidin- [...] Status:Closed by TIGRE RESTREPO on 07/01/24 Normal [facility] ECHOon 06-05-2024 CONCLUSIONS: - Exam indication: [...] * * * Final * * * [facility] Echocardiography Report: Transthoracic Echo [facility] Date of service: 06/05/2024 8:31:52 AM Ordering physician: CLAIRE TURNER Indication: Cardiac Murmur Technologist: Elina Sutton [facility] Interpreting physician: Sammy Robledo DO PATIENT: Name: [...] effusion. There is an epicardial fat pad. [facility] Echocardiography Echocardiography Report: Transthoracic Echo [facility] Date of service: 06/05/2024 8:31:52 AM Ordering physician: CLAIRE TURNER Indication: Cardiac Murmur Technologist: Elina Sutton [facility] Interpreting physician: Sammy Robledo DO PATIENT: Name: [...] * * Final * * * CC [employer] [facility] : [id number] [facility] Telephone (MEPRAD) BEATRIS QUINN ([id number]) 1950 Date Time Provider Department 05/28/24 TIGRE [...] CONSULT TO INFECTIOUS DISEASES [9016] Order #: [id number]: 1 FUTURE Prescriptions as of 06/04/2024 - [...] Encounter Status:Closed by T[facility]RE RESTREPO on [facility]/28/[facility]A [facility] (MEPRAD) BEATRIS QUINN ([id number]) 1950 M Date Time Provider Department 05/27/24 [...] Encounter Status:Closed by TIGRE RESTREPO on 05/27/24 [facility] CT Chest WO contraston 05-15 IMPRESSION: [...] with aspiration. 3. No enlarging lymph nodes. 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 Banking Representative (topogram) images: No additional findings. Lines, tubes, [...] and splenic artery. DIVISION OF RADIOLOGY Provider, [facility] - 05/15/2024 * * *Final Report* * [...] Limitations: Minimal cardiac pulsation related motion noted. Banking Representative (topogram) images: No additional findings. Lines, tubes, [...] No enlarging lym (more content not included)... [facility] Radiology Study observation (narrative) [facility] CT Chest WO contrastOrdered By: Ccf Provider on 05-15-2024 [facility] CNCOon 04-24-2024 CNCO Letter Text Normal [facility] CNPNon 04-21-2024 CNPN Telephone (MEPRAD) QUINNBEATRIS Del Valle ([id number]) 1950 M Date Time Provider Department 04/21/24 [...] Encounter Status:Closed by TIGRE RESTREPO on 04/21/24 [facility] MARTHA Telephone (MEPRAD) BEATRIS QUINN ([id number]) 1950 M Date Time Provider Department 04/21/24 TIGRE RESTREPO During your visit today, we recorded the following information about you: Tigre Restrepo MD 04/21/2024 4:18 PM Addendum He has an appointment with cardiology next month at [place] Please can you please try to get [...] Patient has the soonest available appt in [place] right now, he is placed on the waitlist for cancellations. Called and left to give him the central scheduling cardiology number to see which locations have sooner appointments, since we only have access to schedule for [place] Laila Galdamez, Rosaura Melendrez 04/22/2024 4:12 PM Signed PT calling, he was recently seen at [facility] for a heart stent procedure. PT stated he will reach out to that office for clearance and have the office fax over cardiac clearance forms. PT was provided with the fax number to the [facility] office. Cecelia Solo 04/24/2024 9:39 AM Signed [facility] called asking if the cardiac clearance paperwork could be faxed to them at [phone] so the doctor can sign off on [...] 2:47 PM Signed Faxed Clearance letter to [facility] [phone] and received confirmation. Letter was placed in the filing drawer. Will await for Office note and letter back stating if Pt is cleared. Kacey Che LPN 04/29/2024 2:20 PM Addendum Received fax back from [facility]. Medical records and letter was placed [...] TIGRE RESTREPO on 04/21/24 Normal [facility] GLUCOSE, BLOOD (POC)on 04-21 Glucose [Mass/Vol] 95 mg/dL 74 - 99 mg/dL [facility] Comment on above: Location:[facility], [address], [place], [address] The Accu-Chek Inform II glucose meter has [...] blood gas instrument) in the above situations. [facility] NM PET/CT SKULL-THIGH INITon 04-21-2024 NM [...] * Uptake Time: 50 minutes * Radiopharmaceutical: O20-Ofdkgjaxwltilmqduy (FDG) COMPARISON: No previous FDG PET/CT available [...] but commonly physiologic. Ensure colonoscopy is up-to-date. Railroad Commissioner: [facility] Transcribe Date/Time: Apr 21 2024 8:08A Dictated by : NANDA SAMSON DO This examination was interpreted and the report reviewed and electronically s (more content not included)... Normal [facility] PET+CT Guidance for localiza tion of [...] but commonly physiologic. Ensure colonoscopy is up-to-date. Railroad Commissioner: NESTOR Transcribe Date/Time: Apr 21 2024 8:08A Dictated by : NANDA SAMSON DO This examination was interpreted and the report reviewed and electronically signed by: NANDA SAMSON DO on Apr 21 2024 8:34AM EST [facility] * * *Final Report* * * [...] * Uptake Time: 50 minutes * Radiopharmaceutical: Y10-Kfkdbysqnznehkzzoi (FDG) COMPARISON: No previous FDG PET/CT available [...] arthroplasty. Soft Tissues: No radiotracer avid lesion. [facility] Provider, [facility] - 04/21/2024 * * *Final Report* [...] * Uptake Time: 50 minutes * Radiopharmaceutical: I76-Kvzzettkkmnsuuaqwk (FDG) COMPARISON: No previous FDG PET/CT available [...] is up-to-date. Transcript (more content not included)... [facility] Radiology Study observation (narrative) [facility] PET+CT Guidance for localiza tion of tumor of Skull base to mid-thigh-- W 18F-FDG IVOrdered By: Ccf Provider on 04-21-2024 [facility] CTA Pulmonary arteries for p ulmonary [...] biopsy. 3. No mediastinal or hilar lymphadenopathy. Railroad Commissioner: NESTOR Transcribe Date/Time: Mar 27 2024 10:30A Dictated by : GRACIELA ZELAYA MD This examination was interpreted and the report reviewed and electronically signed by: GRACIELA ZELAYA MD on Mar 27 2024 10:46AM [facility] [[email or web address]] DIVISION OF RADIOLOGY * * *Final Report* * * DATE OF EXAM: Mar 27 2024 10:16AM [facility] 0540 - CT CHEST W IVCON PE [...] No additional findings DIVISION OF RADIOLOGY Provider, [facility] - 03/27/2024 * * *Final Report* * * DATE OF EXAM: Mar 27 2024 10:16AM [facility] 0540 - CT CHEST W IVCON PE [...] biopsy. 3. No mediastinal or hilar lymphadenopathy. Railroad Commissioner: NESTOR Transcribe Date/Time: Mar 27 2024 10:30A Dictated by : GRACIELA ZELAYA MD This examination was interpreted and the report reviewed and electronically signed by: GRACIELA ZELAYA MD on Mar 27 2024 10:46AM EST [facility] Radiology Study observation (narrative) [facility] CTA Pulmonary arteries for p ulmonary embolus W contrast IVOrdered By: Ccf Provider on 03-27-2024 [facility] No Panel Informationon 03-[address] [address] Test Date: 2024-03-24 Pat Name: BEATRIS QUINN Department: Room: Gender: 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 / LF PULMONARY FUNCTION LAB [facility] SPIROMETRY WITH DILATOR IF O BSTRUCTEDon 03-24-2024 DLCO (ml/min/mmHg) 11.55 ml/min/mmHg [facility] DLCO/VA (ml/min/mmHg/L) 2.66 ml/m in/mmHg /L [facility] DLCOcor (ml/min/mmHg) 12.13 ml/min/mmHg Cl [facility] XYQ80-75% POST (L/S) 0.30 L/S [facility] PAN73-47% PRE (L/S) 0.25 L/S [facility] FEV1 PRE (L) 0.68 L [facility] FEV1/FVC POST (%) 22 % [facility] FEV1/FVC PRE (%) 22 % [facility] FEV1_POST (L) 0.73 L [facility] FVC POST (L) 3.31 L [facility] FVC PRE (L) 3.05 L [facility] PEF POST (L/S) 2.43 L/S [facility] PEF PRE (L/S) 2.42 L/S [facility] VA (L) 4.34 L [facility] XR Chest PA and Lateralon IMPRESSION: 1. Nodular opacities in each lung have been thought to most likely be due to infectious etiology.. Neoplasm is not completely excluded. 2. Prominence of lung markings throughout each lung could represent some edema or infiltrate. Although this may be just differences in technique due to different penetrations the films. 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 Transcribe Date/Time: Mar 24 2024 1:44P Dictated by : JANINE HILLIARD DO This examination was interpreted and the report reviewed and electronically signed by: JANINE HILLIARD DO on Mar 24 2024 2:21PM [facility] RADIOLOGY * * *Final Report* * * DATE OF EXAM: Mar 24 2024 10:54AM [facility] 5291 - XR CHEST 2V FRONTAL/LAT / [...] cardiomediastinal silhouette. Bones and soft tissues: Unremarkable. [facility] Provider, Za Liu - 03/24/2024 * [...] technique due to different penetrations the films. Railroad Commissioner: NESTOR Transcribe Date/Time: Mar 24 2024 1:44P Dictated by : JANINE HILLIARD DO This examination was interpreted and the report reviewed and electronically signed by: JANINE HILLIARD DO on Mar 24 2024 2:21PM EST [facility] Radiology Study observation (narrative) Herve willis [facility] XR Chest PA and LateralOrder ed By: Ccf Provider on 03-24-2024 [facility] Absolute lymphocyte countOrd ered By: Anirudh Thompson on 12-18-2023 Lymphocytes Auto (Unsp spec) [#/Vol] 0.30 10*3/uL 0.83-4.51 [facility] Automated lymphocyte count a s percentage of total leukocytesOrdered By: Anirudh Thompson on 12-18-2023 Lymphocytes/100 WBC Auto (Unsp spec) 1.9 % 19-41 [facility] Basophil percentageOrdered B y: Anirudh Thompson on 12-18-2023 Basophils/100 WBC (Bld) 0.1 % 0-[address] [facility] Chloride [Moles/Vol] 96 mmol/L 98-107 [facility] Eosinophils/100 WBC (Bld) 0.0 % 0-5 [facility] Glucose [Mass/Vol] 193 mg/dL 74-106 [facility] Comment on above: Fasting Glucose resu lt greater than or equal to 126 mg/dL suggests DIABETES MELLITUS per A.D.A. criteria. Hemoglobin (Bld) [Mass/Vol] 14.4 g/dL 13.0-16.5 [facility] Monocytes/100 WBC (Bld) 2.0 % 0-[address] [facility] Neutrophils (Bld) [#/Vol] 15.4 10*3/uL 2.0-7.7 [facility] Neutrophils/100 WBC (Bld) 95.4 % 47-70 [facility] Potassium [Moles/Vol] 4.2 mmol/L 3.5-5.1 [facility] Sodium [Moles/Vol] 136 mmol/L 136-145 [facility] WBC (Bld) [#/Vol] 16.2 10*3/uL 4.4-11.0 [facility] Determination of erythrocyte mean corpuscular volume (MCV)Ordered By: Anirudh Thompson on 12-18-2023 MCV (RBC) [Entitic vol] 85.9 fL 80-94 [facility] Erythrocyte distribution wid th ratioOrdered By: Anirudh Thompson on 12-18-2023 Erythrocyte distribution width (RBC) [Ratio] 14.2 % 11.6-14.6 [facility] Erythrocyte distribution wid th standard deviationOrdered By: Anirudh Thompson on 12-18-2023 Erythrocyte distribution width (RBC) [Entitic vol] 44.6 fL 35.1-43.9 [facility] Hematocrit Auto (Bld) [Volum e fraction]Ordered By: Anirudh Thompson on 12-18-2023 Hematocrit (Bld) [Volume fraction] 45.1 % 40-54 [facility] Immature granulocytes/100 WB C Auto (Bld)Ordered By: Anirudh Thompson on 12-18-2023 Immature granulocytes/100 WBC (Bld) 0.600 % 0.0-0.9 [facility] Comment on above: IG% - Immature Granu locytes (promyelocytes, myelocytes and metamyelocytes) > 1% indicates that a LEFT SHIFT is Present. Laboratory - Chemistry and C hemistry - challengeOrdered By: Anirudh Thompson on 12-18-2023 CO2 [Moles/Vol] 35.0 mmol/L 21.0-32.0 [facility] Urea nitrogen/Creatinine [Mass ratio] 27.4 mg/mg 10-20 [facility] Laboratory - Hematology and Cell countsOrdered By: Anirudh Thompson on 12-18-2023 MCH (RBC) [Entitic mass] 27.4 pg 27.0-32.0 [facility] MCHC (RBC) [Mass/Vol] 31.9 g/dL 32-36 [facility] Nucleated RBC/100 WBC (Bld) [Ratio] 0 % 0-5 [facility] Platelet mean volume (Bld) [Entitic vol] 9.7 fL 6.2-12.0 [facility] Platelets (Bld) [#/Vol] 398 10*3/uL 150-450 [facility] No Panel InformationOrdered By: Anirudh Thompson on 12-18-2023 Estimated Creatinine Clearance Calc 63.19 ml/min [facility] Estimated GFR (MDRD) Amer 115 mL/min >60 [facility] Comment on above: GFR Calc Estimated GFR (MDRD) Non-Af Amer 95 mL/min >60 [facility] Comment on above: Non- GFR Calc RBC Auto (Bld) [#/Vol]Ordere d By: Anirudh Thompson on 12-18-2023 RBC (Bld) [#/Vol] 5.25 10*6/uL 4.6-6.2 [facility] Serum or plasma calcium christiana urement (mass/volume)Ordered By: Anirudh Thompson on 12-18-2023 Calcium [Mass/Vol] 9.2 mg/dL 8.5-10.1 [facility] Serum or plasma creatinine m easurement (mass/volume)Ordered By: Anirudh Thompson on 12-18-2023 Creatinine [Mass/Vol] 0.84 mg/dL 0.70-1.30 [facility] Comment on above: The validity of the calculated GFR & GFRAA in patients over 70 years has not been determined. Clinical correlation is essential. Serum or plasma urea nitroge n measurement (mass/volume)Ordered By: Anirudh Thompson on 12-18-2023 Urea nitrogen [Mass/Vol] 23 mg/dL 7-18 [facility] Thin prep Papanicolaou smear with manual screeningOrdered By: Anirudh Donna on 12-18-2023 Thin prep Papanicolaou smear with manual screening 5 5-15 [facility] Absolute lymphocyte countOrd ered By: Migel Iqbal on 12-17-2023 Lymphocytes Auto (Unsp spec) [#/Vol] 0.69 10*3/uL 0.83-4.51 [facility] Activated partial thrombopla stin time (aPTT) in platelet poor plasma by coagulation aOrdered By: Migel Iqbal on 12-17-2023 aPTT Coag (PPP) [Time] 28.0 s 24.1-36.2 [facility] Automated lymphocyte count a s percentage of total leukocytesOrdered By: Migel Iqbal on 12-17-2023 Lymphocytes/100 WBC Auto (Unsp spec) 3.5 % 19-41 [facility] Basophil percentageOrdered B y: Migel Iqbal on 12-17-2023 Basophil percentage 0 SEEN /hpf 0-5 [facility] Basophils/100 WBC (Bld) 0.2 % 0-1 [facility] Bilirubin [Mass/Vol] 0.80 mg/dL 0.20-1.00 [facility] Comment on above: For patients on eltr ombopag therapy, use of Dimension [place] TBIL is not recommended. Chloride [Moles/Vol] 97 mmol/L 98-107 [facility] Eosinophils/100 WBC (Bld) 0.1 % 0-5 [facility] Glucose [Mass/Vol] 104 mg/dL 74-106 [facility] Comment on above: Fasting Glucose resu lt from 100 to 125 mg/dL suggests IMPAIRED HOMEOSTASIS per A.D.A. criteria. Hemoglobin (Bld) [Mass/Vol] 15.3 g/dL 13.0-16.5 [facility] Lactate [Moles/Vol] 0.9 mmol/L 0.4-2.0 [facility] Monocytes/100 WBC (Bld) 9.6 % 0-[address] [facility] Neutrophils (Bld) [#/Vol] 17.2 10*3/uL 2.0-7.7 [facility] Neutrophils/100 WBC (Bld) 85.9 % 47-70 [facility] Potassium [Moles/Vol] 4.1 mmol/L 3.5-5.1 [facility] Protein [Mass/Vol] 7.1 g/dL 6.4-8.2 [facility] Sodium [Moles/Vol] 138 mmol/L 136-145 [facility] WBC (Bld) [#/Vol] 20.0 10*3/uL 4.4-11.0 [facility] Bilirubin Test strip Ql (U)O rdered By: Migel Iqbal on 12-17-2023 Bilirubin Ql (U) Negative Negative [facility] Blood manual differential co mment interpretation (narrative result)Ordered By: Migel Iqbal on 12-17-2023 Manual differential comment Geraldo (Bld) [Interp] COMMENT [facility] Comment on above: MONOCYTOSIS. Culture, urineOrdered By: Micky Iqbal on 12-17-2023 Bacteria identified Cx Nom (U) Culture exhibits no growth. [facility] Determination of erythrocyte mean corpuscular volume (MCV)Ordered By: Migel Iqbal on 12-17-2023 MCV (RBC) [Entitic vol] 86.5 fL 80-[address] [facility] Erythrocyte distribution wid th ratioOrdered By: Migel Iqbal on 12-17-2023 Erythrocyte distribution width (RBC) [Ratio] 14.2 % 11.6-14.6 [facility] Erythrocyte distribution wid th standard deviationOrdered By: Migel Iqbal on 12-17-2023 Erythrocyte distribution width (RBC) [Entitic vol] 45.5 fL 35.1-43.9 [facility] Gram stain for investigation of transfusion reactionOrdered By: Migel Iqbal on 12-17-2023 Microscopic observation Gram stain Nom (Unsp spec) [facility] Hematocrit Auto (Bld) [Volum e fraction]Ordered By: Migel Iqbal on 12-17-2023 Hematocrit (Bld) [Volume fraction] 47.9 % 40-54 [facility] Immature granulocytes/100 WB C Auto (Bld)Ordered By: Migel Iqbal on 12-17-2023 Immature granulocytes/100 WBC (Bld) 0.700 % 0.0-0.9 [facility] Comment on above: IG% - Immature Granu locytes (promyelocytes, myelocytes and metamyelocytes) > 1% indicates that a LEFT SHIFT is Present. Ketones Test strip Ql (U)Ord ered By: Migel Iqbal on 12-17-2023 Ketones Ql (U) 5 mg/dl Negative [facility] Laboratory - Chemistry and C hemistry - challengeOrdered By: Migel Iqbal on 12-17-2023 Albumin/Globulin [Mass ratio] 0.7 {ratio} 0.9-2.4 [facility] ALP [Catalytic activity/Vol] 86 U/L 45-117 [facility] ALT [Catalytic activity/Vol] 18 U/L 16-61 [facility] CO2 [Moles/Vol] 37.0 mmol/L 21.0-32.0 [facility] Globulin (S) [Mass/Vol] 4.2 g/dL 2.2-4.[address] [facility] Urea nitrogen/Creatinine [Mass ratio] 24.5 mg/mg 10-20 [facility] Laboratory - CoagulationOrde red By: Migel Iqbal on 12-17-2023 INR Coag (Bld) [Relative time] 1.0 {INR} [facility] PT Coag (PPP) [Time] 13.0 s 11.7-14.9 [facility] Laboratory - Hematology and Cell countsOrdered By: Migel Iqbal on 12-17-2023 MCH (RBC) [Entitic mass] 27.6 pg 27.0-32.0 [facility] MCHC (RBC) [Mass/Vol] 31.9 g/dL 32-36 [facility] Nucleated RBC/100 WBC (Bld) [Ratio] 0 % 0-5 [facility] Platelet mean volume (Bld) [Entitic vol] 9.8 fL 6.2-12.0 [facility] Platelets (Bld) [#/Vol] 385 10*3/uL 150-450 [facility] Mucus LM Ql (Urine sed)Order ed By: Migel Iqbal on 12-17-2023 Mucus Ql (Urine sed) 0 SEEN /hpf [facility] Nitrite Test strip Ql (U)Ord ered By: Migel Iqbal on 12-17-2023 Nitrite Ql (U) Negative Negative [facility] No Panel InformationOrdered By: Migel Iqbal on 12-17-2023 Urine RBC 0-5 SEEN /hpf 0-5 [facility] Estimated Creatinine Clearance Calc 68.47 ml/min [facility] Estimated GFR (MDRD) Amer 144 mL/min >60 [facility] Comment on above: GFR Calc Estimated GFR (MDRD) Non-Af Amer 119 mL/min >60 [facility] Comment on above: Non- GFR Calc Protein Test strip Ql (U)Ord ered By: Migel Iqbal on 12-17-2023 Protein Ql (U) 30 mg/dl Negative [facility] RBC Auto (Bld) [#/Vol]Ordere d By: Migel Iqbal on 12-17-2023 RBC (Bld) [#/Vol] 5.54 10*6/uL 4.6-6.2 [facility] Review by pathologistOrdered By: Migel Iqbal on 12-17-2023 Pathologist review Geraldo (Unsp spec) [Interp] Xin españa [facility] Pathologist review Geraldo (Unsp spec) [Interp] Reviewed [facility] Comment on above: Previous reported re sult: Xin españa Edited by: SARAH on 12/19/23:0918Neutrophilic leukocytosis.Clinical correlation necessary.Desmond Camacho M.D. 12/19/23 AMENDED REPORT 12/19/23 0918 PATH REV previously reported as: Xin españa Serum or plasma calcium christiana urement (mass/volume)Ordered By: Migel Iqbal on 12-17-2023 Calcium [Mass/Vol] 9.1 mg/dL 8.5-10.1 [facility] Serum or plasma creatinine m easurement (mass/volume)Ordered By: Migel Iqbal on 12-17-2023 Creatinine [Mass/Vol] 0.69 mg/dL 0.70-1.30 [facility] Comment on above: The validity of the calculated GFR & GFRAA in patients over 70 years has not been determined. Clinical correlation is essential. Serum or plasma urea nitroge n measurement (mass/volume)Ordered By: Migel Iqbal on 12-17-2023 Urea nitrogen [Mass/Vol] 17 mg/dL 7-18 [facility] Squamous epithelial cells de tection in urine sediment by light microscopyOrdered By: Migel Iqbal on 12-17-2023 Epithelial cells.squamous LM Ql (Urine sed) 0 SEEN /hpf 0-5 [facility] Thin prep Papanicolaou smear with manual screeningOrdered By: Migel Iqbal on 12-17-2023 Thin prep Papanicolaou smear with manual screening 2.9 g/dL 3.2-5.0 [facility] Thin prep Papanicolaou smear with manual screening 18 U/L 15-37 [facility] Thin prep Papanicolaou smear with manual screening 4 5-15 [facility] Urine blood detectionOrdered By: Migel Iqbal on 12-17-2023 RBC Ql (U) 25 /ul Negative [facility] Urine clarityOrdered By: Hernandez Iqbal on 12-17-2023 Clarity (U) Clear Clear [facility] Urine color determinationOrd ered By: Migel Iqbal on 12-17-2023 Color (U) Yellow Yellow [facility] Urine glucose detectionOrder ed By: Migel Iqbal on 12-17-2023 Glucose Ql (U) Normal mg/dl Normal [facility] Urine leukocyte esterase det ection by dipstickOrdered By: Migel Iqbal on 12-17-2023 Leukocyte esterase Test strip Ql (U) Negative Negative [facility] Urine pHOrdered By: Migel eagle on 12-17-2023 pH (U) 6.5 [pH] 5.0 - 8.0 [facility] Urine sediment bacteria coun t by microscopy (number/high power field)Ordered By: Migel Iqbal on 12-17-2023 Bacteria LM.HPF (Urine sed) [#/Area] 0 /[HPF] None Seen [facility] Urine specific gravity measu rementOrdered By: Migel Iqbal on 12-17-2023 Specific gravity (U) [Rel density] 1.010 1.002-1.030 [facility] Urine urobilinogen measureme ntOrdered By: Migel Iqbal on 12-17-2023 Urobilinogen Ql (U) Normal mg/dl Normal [facility] Basic metabolic 2000 panelon 12-15-2023 Anion gap [Moles/Vol] 5 mmol/L Normal 5-16 [facility] Comment on above: Order Comment: Speci men Type: BLOOD SPECIMEN Ordering Facility: [facility] Address: [address] [place] [address] Performed By: #### 2 4321-2, 51331-7 #### [facility] CLIA [id number] [address] [place] [address] [place] Calcium [Mass/Vol] 9.7 mg/dL Normal 8.5-10.5 [facility] Comment on above: Order Comment: Speci men Type: BLOOD SPECIMEN Ordering Facility: [facility] Address: [address] [place] [address] Performed By: #### 2 4321-2, 59848-8 #### [facility] CLIA [id number] [address] [place] [address] [place] Chloride [Moles/Vol] 102 mmol/L Normal 98-107 [facility] Comment on above: Order Comment: Speci men Type: BLOOD SPECIMEN Ordering Facility: [facility] Address: [address] [place] [address] Performed By: #### 2 4321-2, 19532-8 #### [facility] CLIA [id number] [address] [place], [place] [address] [place] CO2 [Moles/Vol] 31 mmol/L Normal 21-32 [facility] Comment on above: Order Comment: Speci men Type: BLOOD SPECIMEN Ordering Facility: [facility] Address: [address] [place] [address] Performed By: #### 2 4321-2, 69870-4 #### [facility] CLIA [id number] [address] [place], [place] [address] [place] Creatinine [Mass/Vol] 0.72 mg/dL Normal 0.50-1.40 [facility] Comment on above: Order Comment: Speci men Type: BLOOD SPECIMEN Ordering Facility: [facility] Address: [address] [place] [address] Result Comment: Ruthie ents receiving either N-Acetylcysteine (NAC) or Metamizole prior to venipuncture, may have falsely depressed results. Performed By: #### 2 4321-2, 26353-7 #### [facility] CLIA [id number] [address] [place] [address] [place] Creatinine and Glomerular filtration rate.predicted panel (S/P/Bld) 97 mL/min/1.73m??? Normal >=60 [facility] Comment on above: Order Comment: Haylee russo Type: BLOOD SPECIMEN Ordering Facility: [facility] Address: [address] [place] [address] Result Comment: Lata mated Glomerular Filtration Rate [...] actual GFR. Performed By: #### 2 4321-2, 67297-1 #### [facility] CLIA [id number] [address] [place], [place] [address] [place] Glucose [Mass/Vol] 197 mg/dL High 70-100 [facility] Comment on above: Order Comment: Haylee russo Type: BLOOD SPECIMEN Ordering Facility: [facility] Address: [address] [place] [address] Result Comment: The [place] Diabetes Association (ADA) provides guidance for cutoff [...] Standards of Medical Care in Diabetes 2016, [place] [employer] Association. Diabetes Care. 2016.39(Suppl 1). Results may be falsely elevated after the administration of Sulfapyridine. Results may be falsely depressed after the administration of Sulfasalazine. Performed By: #### 2 4321-2, 05816-8 #### [facility] CLIA [id number] [address] [place] [address] [place] Potassium [Moles/Vol] 4.2 mmol/L Normal 3.5-5.1 [facility] Comment on above: Order Comment: Speci men Type: BLOOD SPECIMEN Ordering Facility: [facility] Address: [address] [place] [address] Performed By: #### 2 4321-2, 24227-0 #### [facility] CLIA [id number] [address] [place] [address] [place] Sodium [Moles/Vol] 138 mmol/L Normal 136-145 [facility] Comment on above: Order Comment: Speci men Type: BLOOD SPECIMEN Ordering Facility: [facility] Address: [address] [place] [address] Performed By: #### 2 4321-2, 62496-2 #### [facility] CLIA [id number] [address] [place] [address] [place] Urea nitrogen [Mass/Vol] 19 mg/dL Normal 7-26 [facility] Comment on above: Order Comment: Speci men Type: BLOOD SPECIMEN Ordering Facility: [facility] Address: [address] [place] [address] Performed By: #### 2 4321-2, 71467-1 #### [facility] CLIA [id number] [address] [place] [address] [place] CBC W Auto Differential pane l (Bld)on 12-15-2023 Basophils (Bld) [#/Vol] 10*3/uL Normal <0.11 [facility] Comment on above: Order Comment: Speci men Type: BLOOD SPECIMEN Ordering Facility: [facility] Address: [address] [place] [address] Performed By: #### 5 7021-8 #### [facility] CLIA [id number] [address] [place] [address] [place] Basophils/100 WBC (Bld) 0.1 % Normal [facility] Comment on above: Order Comment: Speci men Type: BLOOD SPECIMEN Ordering Facility: [facility] Address: [address] [place] [address] Performed By: #### 5 7021-8 #### [facility] CLIA [id number] [address] [place] [address] [place] Differential cell count method Nom (Bld) Auto Normal [facility] Comment on above: Order Comment: Speci men Type: BLOOD SPECIMEN Ordering Facility: [facility] Address: [address] [place] [address] Performed By: #### 5 7021-8 #### [facility] CLIA [id number] [address] [place] [address] [place] Eosinophils (Bld) [#/Vol] 10*3/uL Normal <0.46 [facility] Comment on above: Order Comment: Speci men Type: BLOOD SPECIMEN Ordering Facility: [facility] Address: [address] [place] [address] Performed By: #### 5 7021-8 #### [facility] CLIA [id number] [address] [place] [address] [place] Eosinophils/100 WBC (Bld) 0.0 % Normal [facility] Comment on above: Order Comment: Speci men Type: BLOOD SPECIMEN Ordering Facility: [facility] Address: [address] [place] [address] Performed By: #### 5 7021-8 #### [facility] CLIA [id number] [address] [place] [address] [place] Erythrocyte distribution width (RBC) [Ratio] 14.3 % Normal 11.5-15.0 [facility] Comment on above: Order Comment: Speci men Type: BLOOD SPECIMEN Ordering Facility: [facility] Address: [address] [place] [address] Performed By: #### 5 7021-8 #### [facility] CLIA [id number] [address] [place] [address] [place] Hematocrit (Bld) [Volume fraction] 42.3 % Normal 39.0-51.0 [facility] Comment on above: Order Comment: Speci men Type: BLOOD SPECIMEN Ordering Facility: [facility] Address: [address] [place] [address] Performed By: #### 5 7021-8 #### [facility] CLIA [id number] [address] [place] [address] [place] Hemoglobin (Bld) [Mass/Vol] 14.0 g/dL Normal 13.0-17.0 [facility] Comment on above: Order Comment: Speci men Type: BLOOD SPECIMEN Ordering Facility: [facility] Address: [address] [place] [address] Performed By: #### 5 7021-8 #### [facility] CLIA [id number] [address] [place] [address] [place] Immature granulocytes (Bld) [#/Vol] 0.08 10*3/uL Normal <0.10 [facility] Comment on above: Order Comment: Speci men Type: BLOOD SPECIMEN Ordering Facility: [facility] Address: [address] [place] [address] Performed By: #### 5 7021-8 #### [facility] CLIA [id number] [address] [place] [address] [place] Immature granulocytes/100 WBC (Bld) 0.4 % Normal [facility] Comment on above: Order Comment: Speci men Type: BLOOD SPECIMEN Ordering Facility: [facility] Address: [address] [place] [address] Performed By: #### 5 7021-8 #### [facility] CLIA [id number] [address] [place] [address] [place] Lymphocytes (Bld) [#/Vol] 0.40 10*3/uL Low 1.00-4.00 [facility] Comment on above: Order Comment: Speci men Type: BLOOD SPECIMEN Ordering Facility: [facility] Address: [address] [place] [address] Performed By: #### 5 7021-8 #### [facility] CLIA [id number] [address] [place] [address] [place] Lymphocytes/100 WBC (Bld) 2.1 % Normal [facility] Comment on above: Order Comment: Speci men Type: BLOOD SPECIMEN Ordering Facility: [facility] Address: [address] [place] [address] Performed By: #### 5 7021-8 #### [facility] CLIA [id number] [address] [place] [address] [place] MCH (RBC) [Entitic mass] 28.2 pg Normal 26.0-34.0 [facility] Comment on above: Order Comment: Speci men Type: BLOOD SPECIMEN Ordering Facility: [facility] Address: [address] [place] [address] Performed By: #### 5 7021-8 #### [facility] CLIA [id number] [address] [place] [address] [place] MCHC (RBC) [Mass/Vol] 33.1 g/dL Normal 30.5-36.0 [facility] Comment on above: Order Comment: Speci men Type: BLOOD SPECIMEN Ordering Facility: [facility] Address: [address] [place] [address] Performed By: #### 5 7021-8 #### [facility] CLIA [id number] [address] [place] [address] [place] MCV (RBC) [Entitic vol] 85.3 fL Normal 80.0-100.0 [facility] Comment on above: Order Comment: Speci men Type: BLOOD SPECIMEN Ordering Facility: [facility] Address: [address] [place] [address] Performed By: #### 5 7021-8 #### [facility] CLIA [id number] [address] [place] [address] [place] Monocytes (Bld) [#/Vol] 0.86 10*3/uL Normal <0.87 [facility] Comment on above: Order Comment: Speci men Type: BLOOD SPECIMEN Ordering Facility: [facility] Address: [address] [place] [address] Performed By: #### 5 7021-8 #### [facility] CLIA [id number] [address] [place] [address] [place] Monocytes/100 WBC (Bld) 4.6 % Normal [facility] Comment on above: Order Comment: Speci men Type: BLOOD SPECIMEN Ordering Facility: [facility] Address: [address] [place] [address] Performed By: #### 5 7021-8 #### [facility] CLIA [id number] [address] [place] [address] [place] Neutrophils (Bld) [#/Vol] 17.42 10*3/uL High 1.45-7.50 [facility] Comment on above: Order Comment: Speci men Type: BLOOD SPECIMEN Ordering Facility: [facility] Address: [address] [place] [address] Performed By: #### 5 7021-8 #### [facility] CLIA [id number] [address] [place] [address] [place] Neutrophils/100 WBC (Bld) 92.8 % Normal [facility] Comment on above: Order Comment: Speci men Type: BLOOD SPECIMEN Ordering Facility: [facility] Address: [address] [place] [address] Performed By: #### 5 7021-8 #### [facility] CLIA [id number] [address] [place] [address] [place] Nucleated RBC (Bld) [#/Vol] 10*3/uL Normal <0.01 [facility] Comment on above: Order Comment: Speci men Type: BLOOD SPECIMEN Ordering Facility: [facility] [address]: [address] [facility] [place] [id number] Performed By: #### 5 7021-8 #### [facility] CLIA [id number] [address] [place] [address] [place] Nucleated RBC/100 WBC (Bld) [Ratio] 0.0 /100 WBC Normal [facility] Comment on above: Order Comment: Speci men Type: BLOOD SPECIMEN Ordering Facility: [facility] Address: [address] [place] [address] Performed By: #### 5 7021-8 #### [facility] CLIA [id number] [address] [place] [address] [place] Platelet mean volume (Bld) [Entitic vol] 9.9 fL Normal 9.0-12.7 [facility] Comment on above: Order Comment: Speci men Type: BLOOD SPECIMEN Ordering Facility: [facility] Address: [address] [place] [address] Performed By: #### 5 7021-8 #### [facility] CLIA [id number] [address] [place] [address] [place] Platelets (Bld) [#/Vol] 258 10*3/uL Normal 150-400 [facility] Comment on above: Order Comment: Speci men Type: BLOOD SPECIMEN Ordering Facility: [facility] Address: [facility] [place] [place] [address] Performed By: #### 5 7021-8 #### [facility] CLIA [id number] [address] [place] [address] [place] RBC (Bld) [#/Vol] 4.96 10*6/uL Normal 4.20-6.00 [facility] Comment on above: Order Comment: Speci men Type: BLOOD SPECIMEN Ordering Facility: [facility] Address: [address] [place] [address] [place] [address] Performed By: #### 5 7021-8 #### [facility] CLIA [id number] [address] [place] [address] [place] WBC (Bld) [#/Vol] 18.78 10*3/uL High 3.70-11.00 [facility] Comment on above: Order Comment: Speci men Type: BLOOD SPECIMEN Ordering Facility: [facility] Address: [address] [place] [address] Performed By: #### 5 7021-8 #### [facility] CLIA [id number] [address] [employer] [address] ECG COMPLETEon 12-15-2023 ECG COMPLETE Ventricular Rate : 9 1 BPM Atrial Rate : 91 BPM P-R Interval : 126 ms QRS Duration : 76 ms Q-T Interval : 354 ms QTC Calculation(Bazett) : 435 ms Calculated P [place] : 81 degrees Calculated R [place] : 79 degrees Calculated T [place] : 78 degrees Sinus rhythm with Premature atrial complexes Otherwise normal ECG No previous ECGs available Confirmed by BRIDGETT IZAGUIRRE MD ([id number]) on 12/15/2023 9:33:58 AM NAME : BEATRIS QUINN PID : [id number] : 1950 Gender : Male Race : ORD : [id number] Procedure Date : Dec 14 2023 22:29:36 Edit Date : Dec 15 2023 09:34:01 Diagnosis: Sinus rhythm with Premature atrial complexes Otherwise normal ECG No previous ECGs available Confirmed by BRIDGETT IZAGUIRRE MD ([id number]) on 12/15/2023 9:33:58 AM Test Reason : STAT Location : 0 : ED EDH12 Overread By : BRIDGETT IZAGUIRRE MD Edited By : BRIDGETT IZAGUIRRE MD Referred By : , Acquired by : STEVE, [facility] ED NOTEon 12-15-2023 ED NOTE HNO ID: [id number] Author: MICAELA HILTON RN Service: Emergency Medicine Author Type: Registered Nurse Type: ED Notes Filed: 12/15/2023 00:31 Note Text: Pt ambulated around nursing station. Pt started having expiratory wheezing with wet cough and increased general weakness. Pt able to make complete yocha dehe around ED1. Ppt remained between 90-92%RA during ambulation. Meli PAC notified. [facility] ED NOTE HNO ID: [id number] Author: MICAELA HILTON RN Service: Emergency Medicine [...] issues with the coughing, weakness, and SOB. [facility] ED NOTE HNO ID: [id number] Author: SUNDAR MOSQUEDA LPN Service: ? Author Type: LICENSED NURSE Type: ED Notes Filed: 12/14/2023 22:38 Note Text: Bed: 12-ED Expected date: Expected time: Means of arrival: Comments: [facility] ED PROV NOTEon 12-15-2023 ED PROV NOTE HNO ID: [id number] Author: CLAIRE CASE PA-C Service: ? Author Type: Physician 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 Type: ED Provider Notes Filed: 12/15/2023 01:54 [...] few days later, he went to the [place] emergency department and was evaluated there. He [...] Narrative: This (more content not included)... Normal [facility] ED Triage Noteon 12-15-2023 ED Triage Note HNO ID: [id number] Author: IVAN DO PA-C Service: ? Author Type: Physician 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 Type: ED Triage Notes Filed: 12/14/2023 22:28 [...] injection (SOLU-Medrol) SIGNATURE: Ivan Do PA-C Normal [facility] FLUABV+SARS-CoV-2+RSV Pnl Re sp JELENA+probeon 12-15-2023 FLUABV+SARS-CoV-2+RSV Pnl Resp JELENA+probe COVID 19 RESULT: Not detected The method used is RT-PCR or an equivalent NAAT method. Reference Range(the expected result in uninfected individuals): Not detected INFLUENZA A PCR: Detected INFLUENZA B PCR: Not detected RSV PCR: Not detected Abnormal [facility] Comment on above: Performed By: #### 9 5941-1 #### [facility] CLIA [id number] [address] [place] [address] [place] HIGH SENSITIVITY TROPONIN Io n 12-15-2023 Tropinin I.cardiac panel High sensitivity method 14.2 pg/mL Normal 0.0-54.0 [facility] Comment on above: Order Comment: Haylee russo Type: BLOOD SPECIMEN Ordering Facility: [facility] Address: [address] [place] [address] Result Comment: This assay uses different antibodies than our current assay, and assays, even by the same metal fabricating shop helper may recognize different regions of the antibody and cannot be used interchangeably. Expect results of this assay to run higher than the previous assay. Performed By: #### H STROP #### [facility] CLIA [id number] [address] [place] [address] [place] Procalcitonin SerPl-mCncon 0 12-15-2023 Procalcitonin [Mass/Vol] ng/mL Normal 0.00-0.50 [facility] Comment on above: Order Comment: Haylee russo Type: BLOOD SPECIMEN Ordering Facility: [facility] Address: [address] [place] [address] Result Comment: PCT Concentration Interpretation PCT <=0.1 [...] septic shock. Performed By: #### 2 4321-2, 21018-9 #### [facility] CLIA [id number] [address] [employer] [address] [place] XR CHEST 2V [...] rib fracture. IMPRESSION: No acute radiographic abnormality. 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 Transcribe Date/Time: Dec 15 2023 1:22A Dictated by : PAT FINN MD This examination was interpreted and the report reviewed and electronically signed by: PAT FINN MD on Dec 15 2023 1:24AM EST [id number] Normal [facility] Absolute lymphocyte countOrd ered By: Robin Montenegro on 12-11-2023 Lymphocytes Auto (Unsp spec) [#/Vol] 1.05 10*3/uL 0.83-4.51 [facility] Automated lymphocyte count a s percentage of total leukocytesOrdered By: Robin Montenegro on 12-11-2023 Lymphocytes/100 WBC Auto (Unsp spec) 17.2 % 19-41 [facility] Basophil percentageOrdered B y: Robin Montenegro on 12-11-2023 Basophils/100 WBC (Bld) 0.5 % 0-[address] [facility] Chloride [Moles/Vol] 105 mmol/L 98-107 [facility] Eosinophils/100 WBC (Bld) 2.6 % 0-5 [facility] Glucose [Mass/Vol] 100 mg/dL 74-106 [facility] Comment on above: Fasting Glucose resu lt from 100 to 125 mg/dL suggests IMPAIRED HOMEOSTASIS per A.D.A. criteria. Hemoglobin (Bld) [Mass/Vol] 13.2 g/dL 13.0-16.5 [facility] Monocytes/100 WBC (Bld) 12.3 % 0-[address] [facility] Neutrophils (Bld) [#/Vol] 4.1 10*3/uL 2.0-7.7 [facility] Neutrophils/100 WBC (Bld) 67.2 % 47-70 [facility] Potassium [Moles/Vol] 4.0 mmol/L 3.5-5.1 [facility] Sodium [Moles/Vol] 138 mmol/L 136-145 [facility] WBC (Bld) [#/Vol] 6.1 10*3/uL 4.4-11.0 [facility] Determination of erythrocyte mean corpuscular volume (MCV)Ordered By: Robin Montenegro on 12-11-2023 MCV (RBC) [Entitic vol] 87.4 fL 80-94 [facility] Erythrocyte distribution wid th ratioOrdered By: Robin Montenegro on 12-11-2023 Erythrocyte distribution width (RBC) [Ratio] 14.6 % 11.6-14.6 [facility] Erythrocyte distribution wid th standard deviationOrdered By: Robin Montenegro on 12-11-2023 Erythrocyte distribution width (RBC) [Entitic vol] 46.9 fL 35.1-43.9 [facility] Hematocrit Auto (Bld) [Volum e fraction]Ordered By: Robin Montenegro on 12-11-2023 Hematocrit (Bld) [Volume fraction] 40.3 % 40-54 [facility] Immature granulocytes/100 WB C Auto (Bld)Ordered By: Robin Montenegro on 12-11-2023 Immature granulocytes/100 WBC (Bld) 0.200 % 0.0-0.9 [facility] Comment on above: IG% - Immature Granu locytes (promyelocytes, myelocytes and metamyelocytes) > 1% indicates that a LEFT SHIFT is Present. Laboratory - Chemistry and C hemistry - challengeOrdered By: Robin Montenegro on 12-11-2023 CO2 [Moles/Vol] 30.0 mmol/L 21.0-32.0 [facility] Urea nitrogen/Creatinine [Mass ratio] 18.3 mg/mg 10-20 [facility] Laboratory - Hematology and Cell countsOrdered By: Robin Montenegro on 12-11-2023 MCH (RBC) [Entitic mass] 28.6 pg 27.0-32.0 [facility] MCHC (RBC) [Mass/Vol] 32.8 g/dL 32-36 [facility] Nucleated RBC/100 WBC (Bld) [Ratio] 0 % 0-5 [facility] Platelet mean volume (Bld) [Entitic vol] 9.4 fL 6.2-12.0 [facility] Platelets (Bld) [#/Vol] 191 10*3/uL 150-450 [facility] Laboratory - Microbiology an d Antimicrobial susceptibilityOrdered By: Robin Montenegro on 12-11-2023 SARS-CoV-2 (COVID-19) RNA JELENA+probe Ql (Unsp spec) Influenzae A [facility] No Panel InformationOrdered By: Robin Montenegro on 12-11-2023 Estimated Creatinine Clearance Calc 66.92 ml/min [facility] Estimated GFR (MDRD) Amer 110 mL/min >60 [facility] Comment on above: GFR Calc Estimated GFR (MDRD) Non-Af Amer 91 mL/min >60 [facility] Comment on above: Non- GFR Calc Troponin I High Sensitivity 10 pg/mL 3.0-78.0 [facility] Comment on above: Please Note: New [place]ana t Units and Gender Specific Reference Ranges. For more information see Policy Stat Procedure [place] High Sensitivity Troponin (TNIH) and attachments. RBC Auto (Bld) [#/Vol]Ordere d By: Robin Montenegro on 12-11-2023 RBC (Bld) [#/Vol] 4.61 10*6/uL 4.6-6.2 [facility] Serum or plasma calcium christiana urement (mass/volume)Ordered By: Robin Montenegro on 12-11-2023 Calcium [Mass/Vol] 8.7 mg/dL 8.5-10.1 [facility] Serum or plasma creatinine m easurement (mass/volume)Ordered By: Robin Montenegro on 12-11-2023 Creatinine [Mass/Vol] 0.87 mg/dL 0.70-1.30 [facility] Comment on above: The validity of the calculated GFR & GFRAA in patients over 70 years has not been determined. Clinical correlation is essential. Serum or plasma urea nitroge n measurement (mass/volume)Ordered By: Robin Montenegro on 12-11-2023 Urea nitrogen [Mass/Vol] 16 mg/dL 7-18 [facility] Thin prep Papanicolaou smear with manual screeningOrdered By: Robin Montenegro on 12-11-2023 Thin prep Papanicolaou smear with manual screening 3 5-15 [facility] Absolute lymphocyte countOrd ered By: Dean Salas on 10-29-2023 Lymphocytes Auto (Unsp spec) [#/Vol] 0.85 10*3/uL 0.83-4.51 [facility] Automated lymphocyte count a s percentage of total leukocytesOrdered By: Dean Salas on 10-29-2023 Lymphocytes/100 WBC Auto (Unsp spec) 8.0 % 19-41 [facility] Basophil percentageOrdered B y: Dean Salas on 10-29-2023 Basophils/100 WBC (Bld) 0.4 % 0-[address] [facility] Chloride [Moles/Vol] 107 mmol/L 98-107 [facility] Eosinophils/100 WBC (Bld) 2.2 % 0-5 [facility] Glucose [Mass/Vol] 126 mg/dL 74-106 [facility] Comment on above: Fasting Glucose resu lt greater than or equal to 126 mg/dL suggests DIABETES MELLITUS per A.D.A. criteria. Hemoglobin (Bld) [Mass/Vol] 12.6 g/dL 13.0-16.5 [facility] Monocytes/100 WBC (Bld) 12.1 % 0-10 [facility] Neutrophils (Bld) [#/Vol] 8.1 10*3/uL 2.0-7.7 [facility] Neutrophils/100 WBC (Bld) 76.8 % 47-70 [facility] Potassium [Moles/Vol] 3.8 mmol/L 3.5-5.1 [facility] Sodium [Moles/Vol] 139 mmol/L 136-145 [facility] WBC (Bld) [#/Vol] 10.6 10*3/uL 4.4-11.0 [facility] Determination of erythrocyte mean corpuscular volume (MCV)Ordered By: Dean Salas on 10-29-2023 MCV (RBC) [Entitic vol] 86.7 fL 80-[address] [facility] Erythrocyte distribution wid th ratioOrdered By: Dean Salas on 10-29-2023 Erythrocyte distribution width (RBC) [Ratio] 13.8 % 11.6-14.6 [facility] Erythrocyte distribution wid th standard deviationOrdered By: Dean Salas on 10-29-2023 Erythrocyte distribution width (RBC) [Entitic vol] 44.2 fL 35.1-43.9 [facility] Hematocrit Auto (Bld) [Volum e fraction]Ordered By: Dean Salas on 10-29-2023 Hematocrit (Bld) [Volume fraction] 39.0 % 40-54 [facility] Immature granulocytes/100 WB C Auto (Bld)Ordered By: Dean Salas on 10-29-2023 Immature granulocytes/100 WBC (Bld) 0.500 % 0.0-0.9 [facility] Comment on above: IG% - Immature Granu locytes (promyelocytes, myelocytes and metamyelocytes) > 1% indicates that a LEFT SHIFT is Present. Laboratory - Chemistry and C hemistry - challengeOrdered By: Dean Salas on 10-29-2023 CO2 [Moles/Vol] 29.0 mmol/L 21.0-32.0 [facility] Natriuretic peptide B (Bld) [Mass/Vol] 39.3 pg/mL 0-100 [facility] Urea nitrogen/Creatinine [Mass ratio] 18.6 mg/mg 10-20 [facility] Laboratory - Hematology and Cell countsOrdered By: Dean Salas on 10-29-2023 MCH (RBC) [Entitic mass] 28.0 pg 27.0-32.0 [facility] MCHC (RBC) [Mass/Vol] 32.3 g/dL 32-36 [facility] Nucleated RBC/100 WBC (Bld) [Ratio] 0 % 0-5 [facility] Platelet mean volume (Bld) [Entitic vol] 9.1 fL 6.2-12.0 [facility] Platelets (Bld) [#/Vol] 282 10*3/uL 150-450 [facility] No Panel InformationOrdered By: Dean Salas on 10-29-2023 Estimated Creatinine Clearance Calc 67.54 ml/min [facility] Estimated GFR (MDRD) Amer 112 mL/min >60 [facility] Comment on above: GFR Calc Estimated GFR (MDRD) Non-Af Amer 92 mL/min >60 [facility] Comment on above: Non- GFR Calc Troponin I High Sensitivity 8 pg/mL 3.0-78.0 [facility] Comment on above: Please Note: New Lana t Units and Gender Specific Reference Ranges. For more information see Policy Stat Procedure [place] High Sensitivity Troponin (TNIH) and attachments. RBC Auto (Bld) [#/Vol]Ordere d By: Dean Salas on 10-29-2023 RBC (Bld) [#/Vol] 4.50 10*6/uL 4.6-6.2 [facility] Serum or plasma calcium christiana urement (mass/volume)Ordered By: Dean Salas on 10-29-2023 Calcium [Mass/Vol] 9.3 mg/dL 8.5-10.1 [facility] Serum or plasma creatinine m easurement (mass/volume)Ordered By: Dean Salas on 10-29-2023 Creatinine [Mass/Vol] 0.86 mg/dL 0.70-1.30 [facility] Comment on above: The validity of the calculated GFR & GFRAA in patients over 70 years has not been determined. Clinical correlation is essential. Serum or plasma urea nitroge n measurement (mass/volume)Ordered By: Dean Salas on 10-29-2023 Urea nitrogen [Mass/Vol] 16 mg/dL 7-18 [facility] Thin prep Papanicolaou smear with manual screeningOrdered By: Dean Salas on 10-29-2023 Thin prep Papanicolaou smear with manual screening 3 5-15 [facility] Absolute lymphocyte counton 08-29-2022 Lymphocytes Auto (Unsp spec) [#/Vol] 0.30 10*3/uL 0.83-4.51 [facility] Work Phone: Basophil percentageon 2022 Basophils/100 WBC (Bld) 0.1 % 0-[address] [facility] Work Phone: Bilirubin [Mass/Vol] 0.50 mg/dL 0.20-1.00 [facility] Work Phone: Comment on above: For patients on eltr ombopag therapy, use of Dimension [place] TBIL is not recommended. Chloride [Moles/Vol] 100 mmol/L 98-107 [facility] Work Phone: Eosinophils/100 WBC (Bld) 0.0 % 0-5 [facility] Work Phone: Glucose [Mass/Vol] 185 mg/dL 74-106 [facility] Work Phone: Comment on above: Fasting Glucose resu lt greater than or equal to 126 mg/dL suggests DIABETES MELLITUS per A.D.A. criteria. Neutrophils (Bld) [#/Vol] 10.8 10*3/uL 2.0-7.7 [facility] Work Phone: Neutrophils/100 WBC (Bld) 93.1 % 47-70 [facility] Work Phone: Potassium [Moles/Vol] 3.9 mmol/L 3.5-5.1 [facility] Work Phone: Protein [Mass/Vol] 6.4 g/dL 6.4-8.2 [facility] Work Phone: Sodium [Moles/Vol] 137 mmol/L 136-145 [facility] Work Phone: WBC (Bld) [#/Vol] 11.6 10*3/uL 4.4-11.0 [facility] Work Phone: Blood erythrocytes count (nu mber/volume)on 08-29-2022 RBC (Bld) [#/Vol] 4.66 10*6/uL 4.6-6.2 [facility] Work Phone: [phone] Blood hemoglobin measurement (mass/volume)on 08-29-2022 Hemoglobin (Bld) [Mass/Vol] 12.9 g/dL 13.0-16.5 [facility] Work Phone: [phone] Blood lymphocytes/100 leukoc yteson 08-29-2022 Lymphocytes/100 WBC (Bld) 2.6 % 19-41 [facility] Work Phone: [phone] Blood manual differential co mment interpretation (narrative result)on 08-29-2022 Manual differential comment Geraldo (Bld) [Interp] SCANNED [facility] Work Phone: Comment on above: LYMPHOPENIA NOTED Blood monocytes/100 leukocyt eson 08-29-2022 Monocytes/100 WBC (Bld) 3.5 % 0-[address] [facility] Work Phone: [phone] Blood platelet mean volumeon 08-29-2022 Platelet mean volume (Bld) [Entitic vol] 9.6 fL 6.2-12.0 [facility] Work Phone: [phone] Determination of erythrocyte mean corpuscular volume (MCV)on 08-29-2022 MCV (RBC) [Entitic vol] 86.3 fL 80-[address] [facility] Work Phone: [phone] Hematocrit Auto (Bld) [Volum e fraction]on 08-29-2022 Hematocrit (Bld) [Volume fraction] 40.2 % 40-54 [facility] Work Phone: [phone] Laboratory - Chemistry and C hemistry - challengeon 08-29-2022 ALP [Catalytic activity/Vol] 81 U/L 45-117 [facility] Work Phone: [phone] ALT [Catalytic activity/Vol] 24 U/L 16-61 [facility] Work Phone: [phone] CO2 [Moles/Vol] 31.0 mmol/L 21.0-32.0 [facility] Work Phone: [phone] Globulin (S) [Mass/Vol] 3.7 g/dL 2.2-4.[address] [facility] Work Phone: [phone] Urea nitrogen/Creatinine [Mass ratio] 25.9 mg/mg 10-20 [facility] Work Phone: [phone] Laboratory - Hematology and Cell countson 08-29-2022 Erythrocyte distribution width (RBC) [Entitic vol] 45.0 fL 35.1-43.9 [facility] Work Phone: [phone] Erythrocyte distribution width (RBC) [Ratio] 14.3 % 11.6-14.6 [facility] Work Phone: [phone] Immature granulocytes/100 WBC (Bld) 0.700 % 0.0-0.9 [facility] Work Phone: [phone] Comment on above: IG% - Immature Granu locytes (promyelocytes, myelocytes and metamyelocytes) > 1% indicates that a LEFT SHIFT is Present. MCH (RBC) [Entitic mass] 27.7 pg 27.0-32.0 [facility] Work Phone: [phone] Nucleated RBC/100 WBC (Bld) [Ratio] 0 % 0-5 [facility] Work Phone: [phone] MCHC Auto (RBC) [Mass/Vol]on 08-29-2022 MCHC (RBC) [Mass/Vol] 32.1 g/dL 32-36 [facility] Work Phone: [phone] No Panel Informationon 08-29 Estimated Creatinine Clearance Calc 67.41 ml/min [facility] Work Phone: [phone] Estimated GFR (MDRD) Amer 108 mL/min >60 [facility] Work Phone: [phone] Comment on above: GFR Calc Estimated GFR (MDRD) Non-Af Amer 90 mL/min >60 [facility] Work Phone: [phone] Comment on above: Non- GFR Calc Platelets bldon 08-29-2022 Platelets (Bld) [#/Vol] 330 10*3/uL 150-450 [facility] Work Phone: [phone] Serum or plasma albumin christiana urement (mass/volume)on 08-29-2022 Albumin [Mass/Vol] 2.7 g/dL 3.2-5.0 [facility] Work Phone: [phone] Serum or plasma albumin/glob ulin mass ratioon 08-29-2022 Albumin/Globulin [Mass ratio] 0.7 {ratio} 0.9-2.4 [facility] Work Phone: [phone] Serum or plasma calcium christiana urement (mass/volume)on 08-29-2022 Calcium [Mass/Vol] 8.7 mg/dL 8.5-10.1 [facility] Work Phone: [phone] Serum or plasma creatinine m easurement (mass/volume)on 08-29-2022 Creatinine [Mass/Vol] 0.89 mg/dL 0.70-1.30 [facility] Work Phone: Comment on above: The validity of the calculated GFR & GFRAA in patients over 70 years has not been determined. Clinical correlation is essential. Serum or plasma urea nitroge n measurement (mass/volume)on 08-29-2022 Urea nitrogen [Mass/Vol] 23 mg/dL 7-18 [facility] Work Phone: Thin prep Papanicolaou smear with manual screeningon 08-29-2022 Thin prep Papanicolaou smear with manual screening 15 U/L 15-37 [facility] Work Phone: [phone] Thin prep Papanicolaou smear with manual screening 6 5-15 [facility] Work Phone: [phone] Absolute lymphocyte counton 08-26-2022 Lymphocytes Auto (Unsp spec) [#/Vol] 0.81 10*3/uL 0.83-4.51 [facility] Work Phone: Basophil percentageon 2022 Chloride [Moles/Vol] 99 mmol/L 98-107 [facility] Work Phone: [phone] Glucose [Mass/Vol] 156 mg/dL 74-106 [facility] Work Phone: [phone] Comment on above: Fasting Glucose resu lt greater than or equal to 126 mg/dL suggests DIABETES MELLITUS per A.D.A. criteria. Potassium [Moles/Vol] 3.8 mmol/L 3.5-5.1 [facility] Work Phone: Sodium [Moles/Vol] 136 mmol/L 136-145 [facility] Work Phone: Lactate [Moles/Vol] 1.8 mmol/L 0.4-2.0 [facility] Work Phone: Basophils/100 WBC (Bld) 0.1 % 0-[address] [facility] Work Phone: Eosinophils/100 WBC (Bld) 0.0 % 0-5 [facility] Work Phone: Neutrophils (Bld) [#/Vol] 16.6 10*3/uL 2.0-7.7 [facility] Work Phone: Neutrophils/100 WBC (Bld) 87.1 % 47-70 [facility] Work Phone: WBC (Bld) [#/Vol] 19.1 10*3/uL 4.4-11.0 [facility] Work Phone: Blood erythrocytes count (nu mber/volume)on 08-26-2022 RBC (Bld) [#/Vol] 5.46 10*6/uL 4.6-6.2 [facility] Work Phone: Blood hemoglobin measurement (mass/volume)on 08-26-2022 Hemoglobin (Bld) [Mass/Vol] 15.4 g/dL 13.0-16.5 [facility] Work Phone: Blood lymphocytes/100 leukoc yteson 08-26-2022 Lymphocytes/100 WBC (Bld) 4.3 % 19-41 [facility] Work Phone: Blood manual differential co mment interpretation (narrative result)on 08-26-2022 Manual differential comment Geraldo (Bld) [Interp] SCANNED [facility] Work Phone: Comment on above: BANDS NOTED Blood monocytes/100 leukocyt eson 08-26-2022 Monocytes/100 WBC (Bld) 8.1 % 0-[address] [facility] Work Phone: [phone] Blood platelet mean volumeon 08-26-2022 Platelet mean volume (Bld) [Entitic vol] 9.4 fL 6.2-12.0 [facility] Work Phone: [phone] Determination of erythrocyte mean corpuscular volume (MCV)on 08-26-2022 MCV (RBC) [Entitic vol] 87.0 fL 80-[address] [facility] Work Phone: [phone] Hematocrit Auto (Bld) [Volum e fraction]on 08-26-2022 Hematocrit (Bld) [Volume fraction] 47.5 % 40-54 [facility] Work Phone: [phone] Laboratory - Chemistry and C hemistry - challengeon 08-26-2022 CO2 [Moles/Vol] 33.0 mmol/L 21.0-32.0 [facility] Work Phone: [phone] Urea nitrogen/Creatinine [Mass ratio] 35.3 mg/mg 10-20 [facility] Work Phone: [phone] Laboratory - Hematology and Cell countson 08-26-2022 Erythrocyte distribution width (RBC) [Entitic vol] 46.1 fL 35.1-43.9 [facility] Work Phone: [phone] Erythrocyte distribution width (RBC) [Ratio] 14.3 % 11.6-14.6 [facility] Work Phone: [phone] Immature granulocytes/100 WBC (Bld) 0.400 % 0.0-0.9 [facility] Work Phone: [phone] Comment on above: IG% - Immature Granu locytes (promyelocytes, myelocytes and metamyelocytes) > 1% indicates that a LEFT SHIFT is Present. MCH (RBC) [Entitic mass] 28.2 pg 27.0-32.0 [facility] Work Phone: [phone] Nucleated RBC/100 WBC (Bld) [Ratio] 0 % 0-5 [facility] Work Phone: [phone] MCHC Auto (RBC) [Mass/Vol]on 08-26-2022 MCHC (RBC) [Mass/Vol] 32.4 g/dL 32-36 [facility] Work Phone: No Panel Informationon 08-26 Estimated Creatinine Clearance Calc 59.94 ml/min [facility] Work Phone: Estimated GFR (MDRD) Amer 92 mL/min >60 [facility] Work Phone: Comment on above: GFR Calc Estimated GFR (MDRD) Non-Af Amer 76 mL/min >60 [facility] Work Phone: Comment on above: Non- GFR Calc Troponin I High Sensitivity 14 pg/mL 3.0-78.0 [facility] Work Phone: Comment on above: Please Note: New Lana t Units and Gender Specific Reference Ranges. For more information see Policy Stat Procedure [place] High Sensitivity Troponin (TNIH) and attachments. Platelets bldon 08-26-2022 Platelets (Bld) [#/Vol] 364 10*3/uL 150-450 [facility] Work Phone: Review by pathologiston Pathologist review Geraldo (Unsp spec) [Interp] December taco [facility] Work Phone: Pathologist review Geraldo (Unsp spec) [Interp] Reviewed [facility] Work Phone: Comment on above: Previous reported re sult: Xin taco Edited by: RGOOD on 08/29/22:0933Neutrophilic leukocytosis.Clinical correlation suggested.Nigel Florez D.O. 08/29/22 AMENDED REPORT 08/29/22 0933 PATH REV previously reported as: Xin taco Serum or plasma calcium christiana urement (mass/volume)on 08-26-2022 Calcium [Mass/Vol] 9.0 mg/dL 8.5-10.1 [facility] Work Phone: Serum or plasma creatinine m easurement (mass/volume)on 08-26-2022 Creatinine [Mass/Vol] 1.02 mg/dL 0.70-1.30 [facility] Work Phone: Comment on above: The validity of the calculated GFR & GFRAA in patients over 70 years has not been determined. Clinical correlation is essential. Serum or plasma urea nitroge n measurement (mass/volume)on 08-26-2022 Urea nitrogen [Mass/Vol] 36 mg/dL 7-18 [facility] Work Phone: Thin prep Papanicolaou smear with manual screeningon 08-26-2022 Thin prep Papanicolaou smear with manual screening 4 5-15 [facility] Work Phone: .Auto Diffon 08-23-2022 Basophil, Absolute 0.0 10 3/mcL Normal 0.0-0.3 [facility] ([place]) Comment on above: Performed By: #### EMILY JEFFERSON, GFR #### [address] [address] Basophils/100 WBC (Bld) 0.3 % Normal 0.0-2.5 [facility] ([place]) Comment on above: Performed By: #### EMILY JEFFERSON, GFR #### [address] [address] Eosinophil, Absolute 0.1 10 3/mcL Normal 0.0-0.7 [facility] ([place]) Comment on above: Performed By: #### EMILY JEFFERSON, GFR #### [address] [address] Eosinophils/100 WBC (Bld) 0.9 % Normal 0.0-6.0 [facility] ([place]) Comment on above: Performed By: #### EMILY JEFFERSON, GFR #### [address] [address] Lymphocyte, Absolute 0.6 10 3/mcL Low 0.9-4.3 [facility] ([place]) Comment on above: Performed By: #### EMILY JEFFERSON, GFR #### [address] [address] Lymphocytes/100 WBC (Bld) 4.7 % Low 20.0-40.0 [facility] ([place]) Comment on above: Performed By: #### EMILY JEFFERSON, GFR #### [address] [address] Monocyte, Absolute 1.2 10 3/mcL Normal 0.1-1.4 [facility] ([place]) Comment on above: Performed By: #### T CEFERINO BMP, GFR #### [address] [address] Monocytes/100 WBC (Bld) 8.6 % Normal 2.0-13.0 [facility] ([place]) Comment on above: Performed By: #### T CEFERINO BMP, GFR #### [address] [address] Neutrophils/100 WBC (Bld) 85.5 % High 50.0-75.0 [facility] ([place]) Comment on above: Performed By: #### T CEFERINO BMP, GFR #### [address] [address] .GFRon 08-23-2022 GFR >60 Normal [facility] ([place]) Comment on above: Result Comment: GFR Population [...] By: #### T CEFERINO BMP, GFR #### [address] [address] GFR Non- >60 Normal [facility] ([place]) Comment on above: Result Comment: GFR Population [...] By: #### T CEFERINO BMP, GFR #### [address] [address] .MDWon 08-23-2022 Monocyte Distribution Width 19.08 Normal 0.00-20.00 [facility] ([place]) Comment on above: Result Comment: For ED adult patients suspected of sepsis, MDW<=20.0 does not rule out sepsis or risk of sepsis Performed By: #### T EMILY DE LA VEGA, GFR #### [address] [address] .NEUABSon 08-23-2022 Neutrophil, Absolute 11.6 10 3/mcL High 2.3-8.1 A [facility] ([place]) Comment on above: Performed By: #### T EMILY DE LA VEGA, GFR #### [address] [address] Absolute lymphocyte counton 08-23-2022 Lymphocytes Auto (Unsp spec) [#/Vol] 0.57 10*3/uL 0.83-4.51 [facility] Work Phone: BMPon 08-23-2022 BUN/Creatinine Ratio 24.4 ratio High 10.0-22.0 [facility] ([place]) Comment on above: Performed By: #### T CEFERINO, BMP, GFR #### [address] [address] Calcium [Mass/Vol] 9.9 mg/dL Normal 8.7-10.4 [facility] ([place]) Comment on above: Performed By: #### T CEFERINO BMP, GFR #### [address] [address] Chloride [Moles/Vol] 97 mmol/L Low 98-110 [facility] ([place]) Comment on above: Performed By: #### T CEFERINO, BMP, GFR #### [address] [address] CO2 [Moles/Vol] 30 mmol/L Normal 22-32 [facility] ([place]) Comment on above: Performed By: #### T CEFERINO, BMP, GFR #### [address] [address] Creatinine [Mass/Vol] 0.78 mg/dL Normal 0.60-1.40 [facility] ([place]) Comment on above: Performed By: #### T CEFERINO, BMP, GFR #### [address] [address] Electrolyte Balance 7.0 mEq/L Normal 4.0-15.0 [facility] ([place]) Comment on above: Performed By: #### T CEFERINO, BMP, GFR #### [address] [address] Glucose [Mass/Vol] 120 mg/dL High 82-115 [facility] [place] Comment on above: Performed By: #### T CEFERINO, BMP, GFR #### [address] [address] Potassium [Moles/Vol] 4.3 mmol/L Normal 3.5-5.0 [facility] ([place]) Comment on above: Performed By: #### T CEFERINO, BMP, GFR #### [address] [address] Sodium [Moles/Vol] 134 mmol/L Low 136-145 [facility] [place]) Comment on above: Performed By: #### T CEFERINO, BMP, GFR #### [address] [address] Urea nitrogen [Mass/Vol] 19.0 mg/dL Normal 8.0-22.0 [facility] ([place]) Comment on above: Performed By: #### T CEFERINO, BMP, GFR #### [address] [address] Basophil percentageon 2021 Basophils/100 WBC (Bld) 0.4 % 0-[address] [facility] Work Phone: Chloride [Moles/Vol] 99 mmol/L 98-107 [facility] Work Phone: Eosinophils/100 WBC (Bld) 0.0 % 0-5 [facility] Work Phone: Glucose [Mass/Vol] 147 mg/dL 74-106 [facility] Work Phone: Comment on above: Fasting Glucose resu lt greater than or equal to 126 mg/dL suggests DIABETES MELLITUS per A.D.A. criteria. Neutrophils (Bld) [#/Vol] 14.2 10*3/uL 2.0-7.7 [facility] Work Phone: Neutrophils/100 WBC (Bld) 85.6 % 47-70 [facility] Work Phone: Potassium [Moles/Vol] 3.8 mmol/L 3.5-5.1 [facility] Work Phone: Sodium [Moles/Vol] 134 mmol/L 136-145 [facility] Work Phone: WBC (Bld) [#/Vol] 16.5 10*3/uL 4.4-11.0 [facility] Work Phone: Blood erythrocytes count (nu mber/volume)on 08-23-2022 RBC (Bld) [#/Vol] 5.50 10*6/uL 4.6-6.2 [facility] Work Phone: Blood hemoglobin measurement (mass/volume)on 08-23-2022 Hemoglobin (Bld) [Mass/Vol] 15.5 g/dL 13.0-16.5 [facility] Work Phone: Blood lymphocytes/100 leukoc yteson 08-23-2022 Lymphocytes/100 WBC (Bld) 3.5 % 19-41 [facility] Work Phone: Blood monocytes/100 leukocyt eson 08-23-2022 Monocytes/100 WBC (Bld) 9.9 % 0-[address] [facility] Work Phone: Blood platelet mean volumeon 08-23-2022 Platelet mean volume (Bld) [Entitic vol] 10.0 fL 6.2-12.0 [facility] Work Phone: CBCon 08-23-2022 Erythrocyte distribution width (RBC) [Ratio] 14.3 % Normal 11.5-15.5 [facility] ([place]) Comment on above: Performed By: #### T EMILY DE LA VEGA, GFR #### [address] [address] Hematocrit (Bld) [Volume fraction] 45.5 % Normal 40.0-52.0 [facility] ([place]) Comment on above: Performed By: #### T EMILY DE LA VEGA, GFR #### [address] [address] Hgb 14.7 G/dL Normal 13.0-17.5 [facility] ([place]) Comment on above: Performed By: #### T EMILY DE LA VEGA, GFR #### [address] [address] MCH (RBC) [Entitic mass] 27.4 pg Normal 27.0-33.0 [facility] ([place]) Comment on above: Performed By: #### T EMILY DE LA VEGA, GFR #### [address] [address] MCHC 32.4 G/dL Normal 32.0-36.0 [facility] ([place]) Comment on above: Performed By: #### T EMILY DE LA VEGA, GFR #### [address] [address] MCV (RBC) [Entitic vol] 84.5 fL Normal 81.0-100.0 A [facility] ([place]) Comment on above: Performed By: #### T EMILY DE LA VEGA, GFR #### [address] [address] Platelet 229 10 3/mcL Normal 150-450 [facility] ([place]) Comment on above: Performed By: #### T EMILY DE LA VEGA, GFR #### [place] [address] Platelet mean volume (Bld) [Entitic vol] 8.1 fL Normal 6.4-10.5 [facility] ([place]) Comment on above: Performed By: #### T EMILY DE LA VEGA, GFR #### [place] [address] RBC 5.39 10 6/mcL Normal 4.50-6.00 [facility] ([place]) Comment on above: Performed By: #### T EMILY DE LA VEGA, GFR #### [place] [address] WBC 13.6 10 3/mcL High 4.5-10.8 [facility] ([place]) Comment on above: Performed By: #### T EMILY DE LA VEGA, GFR #### [place] [address] CVFLURVon 08-23-2022 FLU A PCR Negative Normal Negative [facility] ([place]) Comment on above: Result Comment: [place] s [id number] Performed By: #### C VFLURV #### [place] [address] FLU B PCR Negative Normal Negative [facility] ([place]) Comment on above: Result Comment: [place] [id number] Performed By: #### C VFLURV #### [place] [address] RSV PCR Negative Normal Negative [facility] ([place]) Comment on above: Result Comment: [place] s [id number] Performed By: #### C VFLURV #### [place] [address] SARS-CoV-2 (COVID-19) RNA JELENA+probe Ql (Unsp spec) Negative Normal Negative [facility] ([place]) Comment on above: Result Comment: [place] [id number] This test has been authorized by FDA [...] results. Performed By: #### C [facility] #### [place] [address] Determination of erythrocyte mean corpuscular volume (MCV)on 08-23-2022 MCV (RBC) [Entitic vol] 84.7 fL 80-[address] [facility] Work Phone: Hematocrit Auto (Bld) [Volum e fraction]on 08-23-2022 Hematocrit (Bld) [Volume fraction] 46.6 % 40-54 [facility] Work Phone: LABORATORYOrdered By: SYSTEM SYSTEM [...] Comment on above: Result Comment: [place] [id number] FLUBV RNA JELENA+probe Ql (Resp) Negative 4 (08/23/22 12:22 PM) Invalid Interpretation Code Negative Auto Viro/Sero SS Comment on above: Result Comment: Note s [id number] RSV PCR Negative 5 (08/23/22 12:22 PM) Invalid Interpretation Code Negative Auto Viro/Sero SS Comment on above: Result Comment: [place] [id number] SARS-CoV-2 (COVID-19) RNA JELENA+probe Ql (Resp) Negative 2 (08/23/22 12:22 PM) Invalid Interpretation Code Negative AH Auto Viro/Sero SS Comment on above: Result Comment: Note s [id number] Laboratory - Chemistry and C hemistry - challengeon 08-23-2022 CO2 [Moles/Vol] 27.0 mmol/L 21.0-32.0 [facility] Work Phone: [phone] Urea nitrogen/Creatinine [Mass ratio] 23.0 mg/mg 10-20 [facility] Work Phone: [phone] Laboratory - Hematology and Cell countson 08-23-2022 Erythrocyte distribution width (RBC) [Entitic vol] 42.4 fL 35.1-43.9 [facility] Work Phone: [phone] Erythrocyte distribution width (RBC) [Ratio] 13.7 % 11.6-14.6 [facility] Work Phone: [phone] Immature granulocytes/100 WBC (Bld) 0.600 % 0.0-0.9 [facility] Work Phone: [phone] Comment on above: IG% - Immature Granu locytes (promyelocytes, myelocytes and metamyelocytes) > 1% indicates that a LEFT SHIFT is Present. MCH (RBC) [Entitic mass] 28.2 pg 27.0-32.0 [facility] Work Phone: [phone] Nucleated RBC/100 WBC (Bld) [Ratio] 0 % 0-5 [facility] Work Phone: [phone] MCHC Auto (RBC) [Mass/Vol]on 08-23-2022 MCHC (RBC) [Mass/Vol] 33.3 g/dL 32-36 [facility] Work Phone: [phone] No Panel Informationon 08-23 Estimated Creatinine Clearance Calc 61.14 ml/min [facility] Work Phone: [phone] Estimated GFR (MDRD) Amer 95 mL/min >60 [facility] Work Phone: [phone] Comment on above: GFR Calc Estimated GFR (MDRD) Non-Af Amer 78 mL/min >60 [facility] Work Phone: [phone] Comment on above: Non- GFR Calc Troponin I High Sensitivity 13 pg/mL 3.0-78.0 [facility] Work Phone: Comment on above: Please Note: New Lana t Units and Gender Specific Reference Ranges. For more information see Policy Stat Procedure [place] High Sensitivity Troponin (TNIH) and attachments. Platelets bldon 08-23-2022 Platelets (Bld) [#/Vol] 256 10*3/uL 150-450 [facility] Work Phone: Review by pathologiston 07-27 Pathologist review Geraldo (Unsp spec) [Interp] Reviewed [facility] Work Phone: Comment on above: Previous reported re sult: Xin españa Edited by: ESTELA on 08/24/22:1137Neutrophilic leukocytosis.Clinical correlation necessary.Desmond Camacho M.D. 08/24/22 AMENDED REPORT 08/24/22 1137 PATH REV previously reported as: Xin españa Serum or plasma calcium christiana urement (mass/volume)on 08-23-2022 Calcium [Mass/Vol] 9.4 mg/dL 8.5-10.1 [facility] Work Phone: Serum or plasma creatinine m easurement (mass/volume)on 08-23-2022 Creatinine [Mass/Vol] 1.00 mg/dL 0.70-1.30 [facility] Work Phone: Comment on above: The validity of the calculated GFR & GFRAA in patients over 70 years has not been determined. Clinical correlation is essential. Serum or plasma urea nitroge n measurement (mass/volume)on 08-23-2022 Urea nitrogen [Mass/Vol] 23 mg/dL 7-18 [facility] Work Phone: TROPHSon 08-23-2022 Troponin I High Sensitivity 4.19 ng/L Normal 0.00-54.00 [facility] ([place]) Comment on above: Result Comment: If t he High Sensitive Troponin result is below the 99th percentile value (<45 ng/L) at the first blood draw, at least two additional blood samples should be drawn before results are interpreted as negative for AMI. Performed By: #### T ROPHS, BMP, GFR #### [facility] [address] [place] [id number] Thin prep Papanicolaou smear with manual screeningon 08-23-2022 Thin prep Papanicolaou smear with manual screening 01-07 [facility] Work Phone: XR CHEST 1 VIEWon [...] 08/23/2022 11:49:31 AM Ordering Provider: JUAN Wang [facility] ([place]) LABORATORYOrdered By: SYSTEM SYSTEM on 06-20-2021 Base [...] Routine cultures are held for 5 days. [facility] Work Phone: OPERATIVE PROCEDURESon 11-25 OPERATIVE PROCEDURES [facility] OPERATIVE REPORT NAME ACCOUNT SEX AGE ADMIT DISCHARGE PT MED. RECORD# NUMBER DATE DATE TYPE BEATRIS QUINN [id number] M 69 11/18/20 2 [id number] ROOM[facility] DATE OF : 1950 DICTATING PHYSICIAN: Sahara Jay DATE OF SURGERY: November 18, 2020 SURGEON: Sahara Jay MD ULTRASONIC SEAMING MACHINE OPERATOR: ANESTHESIOLOGIST: ANESTHETIC: MAC. PREOPERATIVE DIAGNOSIS: Screening colonoscopy. [...] Sahara Jay MD 11/18/20 13:08 JOB #: [id number] Transcribed By: jeovany 11/19/20 07:37 Electronically signed by: E-SIGN DR. JAY 11/25/20 09:12 Page 2 of 2 BEATRIS QUINN Operative Report Normal [facility] Gram stain for investigation of transfusion reaction Microscopic observation Gram stain Nom (Unsp spec) [facility] Work Phone: Influenza virus A and B and SARS-CoV-2 (COVID-19) Ag panel - Upper respiratory specim SARS-CoV-2 (COVID-19) RNA JELENA+probe Ql (Resp) [facility] Work Phone: Microbial respiratory cultur e Bacteria identified Respiratory culture Nom (Unsp spec) [facility] Work Phone: No Panel Information Streptococcus pneumoniae Antigen (M [facility] Work Phone: Respiratory pathogens DNA an d RNA 12b panel JELENA+probe (Unsp spec) Respiratory Panel (PCR) Influenza A (Sub type H1) [facility] Work Phone: Vital Signs Date Time Vital Sign Value Performing Clinician Facility 06-02-2025 11:05-0400 Body temperature 98 [degF] Dr. Vivi Pike DO Work Phone: [phone] [place] [address] 06-02-2025 11:05-0400 Diastolic blood pressure 78 mm[Hg] Dr. Vivi Pike DO Work Phone: [phone] [place] [address] 06-02-2025 11:05-0400 Heart rate 92 /min Dr. Vivi Pike DO Work Phone: [phone] [place] [address] 06-02-2025 11:05-0400 Respiratory rate 16 /min Dr. Vivi Pike DO Work Phone: [phone] [place] [address] 06-02-2025 11:05-0400 SaO2% (BldA) [Mass fraction] 96 % Dr. Vivi Pike DO Work Phone: [phone] [place] [address] 06-02-2025 11:05-0400 Systolic blood pressure 139 mm[Hg] Dr. Vivi Pike DO Work Phone: [phone] [place] [address] 06-01-2025 13:35-0400 Body height 167.[address] Vivi Pike DO Work Phone: [phone] [place] [address] 06-01-2025 13:35-0400 Body mass index (BMI) [Ratio] 19 kg/m2 Dr. Vivi Pike DO Work Phone: [phone] [place] [address] 06-01-2025 13:35-0400 Body weight 53.[address] Vivi Pike DO Work Phone: 2(272)531-028454 [place] [address] 06-01-2025 11:59-0400 Body temperature 98.2 [degF] Dr. Vivi Pike DO Work Phone: 8(354)877-608154 [place] [address] 06-01-2025 11:59-0400 Diastolic blood pressure 85 mm[Hg] Dr. Vivi Pike DO Work Phone: [facility] 06-01-2025 11:59-0400 Heart rate 80 /min Dr. Vivi Pike DO Work Phone: [facility] 06-01-2025 11:59-0400 Respiratory rate 16 /min Dr. Vivi Pike DO Work Phone: [facility] 06-01-2025 11:59-0400 SaO2% (BldA) [Mass fraction] 98 % Dr. Vivi Pike DO Work Phone: 0(849)340-006268 [place] [address] 06-01-2025 11:59-0400 Systolic blood pressure 156 mm[Hg] Dr. Vivi Pike DO Work Phone: [facility] 06-01-2025 07:22-0400 Body mass index (BMI) [Ratio] 19.5 kg/m2 Dr. Vivi Pike DO Work Phone: [facility] 06-01-2025 07:22-0400 Body weight [address] Vivi Pike DO Work Phone: [facility] 06-01-2025 07:20-0400 Body height 167.[address] Vivi Pike DO Work Phone: [facility] 04-16-2025 09:50-0400 Body mass index (BMI) [Ratio] 21.04 kg/m2 Tigre Restrepo MD Work Phone: [facility] 04-16-2025 09:50-0400 Body weight 55.6 kg Tigre Restrepo MD Work Phone: [facility] 04-16-2025 09:50-0400 Diastolic blood pressure 72 mm[Hg] Tigre Restrepo MD Work Phone: [facility] 04-16-2025 09:50-0400 Heart rate 72 /min Tigre Restrepo MD Work Phone: [facility] 04-16-2025 09:50-0400 SaO2% (BldA) [Mass fraction] 96 % Tigre Restrepo MD Work Phone: [facility] 04-16-2025 09:50-0400 Systolic blood pressure 128 mm[Hg] Tigre Restrepo MD Work Phone: [facility] 12-02-2024 16:21-0400 Body temperature 97.7 [degF] Dr. Todd Valdovinos DO Work Phone: [facility] 12-02-2024 16:21-0400 Diastolic blood pressure 77 mm[Hg] Dr. Todd Valdovinos DO Work Phone: [facility] 12-02-2024 16:21-0400 Heart rate 95 /min Dr. Todd Valdovinos DO Work Phone: [facility] 12-02-2024 16:21-0400 Respiratory rate 18 /min Dr. Todd Valdovinos DO Work Phone: [facility] 12-02-2024 16:21-0400 SaO2% (BldA) [Mass fraction] 94 % Dr. Todd Valdovinos DO Work Phone: [facility] 12-02-2024 16:21-0400 Systolic blood pressure 143 mm[Hg] Dr. Todd Valdovinos DO Work Phone: [facility] 12-02-2024 10:45-0400 Body height 167.[address] Todd Valdovinos DO Work Phone: [facility] 12-02-2024 10:45-0400 Body weight 56.[address] Todd Valdovinos DO Work Phone: [facility] 12-01-2024 11:55-0400 Inhaled oxygen flow rate 2 L/min Dr. Todd Valdovinos DO Work Phone: [facility] 12-01-2024 09:18-0400 Body mass index (BMI) [Ratio] 20 kg/m2 Dr. Todd Valdovinos DO Work Phone: [facility] 12-01-2024 09:00-0400 Body temperature 98.4 [degF] Dr. Jr Ryan DO Work Phone: [facility] 12-01-2024 09:00-0400 Diastolic blood pressure 76 mm[Hg] Dr. Jr Ryan DO Work Phone: [facility] 12-01-2024 09:00-0400 Heart rate 83 /min Dr. Jr Ryan DO Work Phone: [facility] 12-01-2024 09:00-0400 Inhaled oxygen flow rate 1 L/min Dr. Jr Ryan DO Work Phone: [facility] 12-01-2024 09:00-0400 Respiratory rate 18 /min Dr. Jr Ryan DO Work Phone: [facility] 12-01-2024 09:00-0400 SaO2% (BldA) [Mass fraction] 96 % Dr. Jr Ryan DO Work Phone: [facility] 12-01-2024 09:00-0400 Systolic blood pressure 129 mm[Hg] Dr. Jr Ryan DO Work Phone: [facility] 12-01-2024 06:21-0400 Body height 167.[address] Jr Ryan DO Work Phone: [facility] 12-01-2024 06:21-0400 Body mass index (BMI) [Ratio] 20.2 kg/m2 Dr. Jr Ryan DO Work Phone: [facility] 12-01-2024 06:21-0400 Body weight 57.[address] Jr Ryan DO Work Phone: [facility] 10-16-2024 08:50-0500 Body height 162.6 cm Tigre Restrepo MD Work Phone: [facility] 10-16-2024 08:50-0500 Body mass index (BMI) [Ratio] 22.48 kg/m2 Tigre Restrepo MD Work Phone: [facility] 10-16-2024 08:50-0500 Body weight 59.4 kg Tigre Restrepo MD Work Phone: [facility] 10-16-2024 08:50-0500 Diastolic blood pressure 76 mm[Hg] Tigre Restrepo MD Work Phone: [facility] 10-16-2024 08:50-0500 Heart rate 79 /min Tigre Restrepo MD Work Phone: [facility] 10-16-2024 08:50-0500 SaO2% (BldA) [Mass fraction] 94 % Tigre Restrepo MD Work Phone: [facility] 10-16-2024 08:50-0500 Systolic blood pressure 153 mm[Hg] Tigre Restrepo MD Work Phone: [facility] 05-22-2024 08:14-0400 Body height 162.6 cm Claire Turner MD Work Phone: [facility] 05-22-2024 08:14-0400 Body mass index (BMI) [Ratio] 21.95 kg/m2 Claire Turner MD Work Phone: [facility] 05-22-2024 08:14-0400 Body weight 58 kg Claire Turner MD Work Phone: [facility] 05-22-2024 08:14-0400 Diastolic blood pressure 70 mm[Hg] Claire Turner MD Work Phone: [facility] 05-22-2024 08:14-0400 Heart rate 69 /min Claire Turner MD Work Phone: [facility] 05-22-2024 08:14-0400 SaO2% (BldA) [Mass fraction] 95 % Claire Turner MD Work Phone: [facility] 05-22-2024 08:14-0400 Systolic blood pressure 136 mm[Hg] Claire Turner MD Work Phone: [facility] 05-15-2024 10:51-0400 Body mass index (BMI) [Ratio] 20.56 kg/m2 Mehreen Crow MD Work Phone: [facility] 05-15-2024 10:51-0400 Body temperature 97.2 [degF] Mehreen Crow MD Work Phone: [facility] 05-15-2024 10:51-0400 Body weight 55.9 kg Mehreen Crow MD Work Phone: [facility] 05-15-2024 10:51-0400 Diastolic blood pressure 78 mm[Hg] Mehreen Crow MD Work Phone: [facility] 05-15-2024 10:51-0400 Heart rate 51 /min Mehreen Crow MD Work Phone: [facility] Comment on above: Took anxiety tablet this morning 05-15-2024 10:51-0400 Respiratory rate 16 /min Mehreen Crow MD Work Phone: [facility] 05-15-2024 10:51-0400 SaO2% (BldA) [Mass fraction] 96 % Mehreen Crow MD Work Phone: [facility] 05-15-2024 10:51-0400 Systolic blood pressure 150 mm[Hg] Mehreen Crow MD Work Phone: [facility] 03-24-2024 11:16-0400 Body height 164.9 cm Tigre Restrepo MD Work Phone: [facility] 03-24-2024 11:16-0400 Body mass index (BMI) [Ratio] 20.56 kg/m2 Tigre Restrepo MD Work Phone: [facility] 03-24-2024 11:16-0400 Body weight 55.9 kg Tigre Restrepo MD Work Phone: [facility] 03-24-2024 11:16-0400 Diastolic blood pressure 77 mm[Hg] Tigre Restrepo MD Work Phone: [facility] 03-24-2024 11:16-0400 Heart rate 66 /min Tigre Restrepo MD Work Phone: [facility] 03-24-2024 11:16-0400 SaO2% (BldA) [Mass fraction] 97 % Tigre Restrepo MD Work Phone: [facility] 03-24-2024 11:16-0400 Systolic blood pressure 150 mm[Hg] Tigre Restrepo MD Work Phone: [facility] 12-20-2023 13:37-0400 Inhaled oxygen flow rate 2 L/min Dr. Jr Ryan Work Phone: [facility] 12-20-2023 12:11-0400 Body temperature 100 [degF] Dr. Jr Ryan Work Phone: [facility] 12-20-2023 12:11-0400 Diastolic blood pressure 93 mm[Hg] Dr. Jr Ryan Work Phone: [facility] 12-20-2023 12:11-0400 Heart rate 86 /min Dr. Jr Ryan Work Phone: [facility] 12-20-2023 12:11-0400 Respiratory rate 16 /min Dr. Jr Ryan Work Phone: [facility] 12-20-2023 12:11-0400 SaO2% (BldA) [Mass fraction] 96 % Dr. Jr Ryan Work Phone: [facility] 12-20-2023 12:11-0400 Systolic blood pressure 157 mm[Hg] Dr. Jr Ryan Work Phone: [facility] 12-18-2023 14:53-0400 Body height 167.[address] Jr Ryan Work Phone: [facility] 12-18-2023 14:53-0400 Body weight 56.[address] Jr Ryan Work Phone: [facility] 12-17-2023 16:02-0400 Body mass index (BMI) [Ratio] 20 kg/m2 Dr. Jr Ryan Work Phone: 3(422)939-093164 [address] 12-17-2023 15:33-0400 Body temperature 98.7 [degF] Dr. Jr Ryan Work Phone: 1(444)986-488863 [place] [address] 12-17-2023 15:33-0400 Diastolic blood pressure 91 mm[Hg] Dr. Jr Ryan Work Phone: 4(070)317-323164 [address] 12-17-2023 15:33-0400 Heart rate 101 /min Dr. Jr Ryan Work Phone: 9(017)300-970163 [place] [address] 12-17-2023 15:33-0400 Respiratory rate 23 /min Dr. Jr Ryan Work Phone: 9(815)242-240963 [place] [address] 12-17-2023 15:33-0400 SaO2% (BldA) [Mass fraction] 97 % Dr. Jr Ryan Work Phone: 3(051)376-384763 [place] [address] 12-17-2023 15:33-0400 Systolic blood pressure 157 mm[Hg] Dr. Jr Ryan Work Phone: 4(981)311-026663 [place] [address] 12-17-2023 15:00-0400 Inhaled oxygen flow rate 3 L/min Dr. Jr Ryan Work Phone: 7(333)251-182363 [place] [address] 12-17-2023 13:26-0400 Body height 167.[address] Jr Ryan Work Phone: 1(186)602-288463 [place] [address] 12-17-2023 13:26-0400 Body mass index (BMI) [Ratio] 20.6 kg/m2 Dr. Jr Ryan Work Phone: 4(760)847-196164 [address] 12-17-2023 13:26-0400 Body weight [address] Jr Ryan Work Phone: 4(271)057-178163 [place] [address] 12-11-2023 11:51-0400 Body temperature 97.6 [degF] [facility] 12-11-2023 11:51-0400 Diastolic blood pressure 78 mm[Hg] [facility] 12-11-2023 11:51-0400 Heart rate 89 /min [facility] 12-11-2023 11:51-0400 Respiratory rate 18 /min [facility] 12-11-2023 11:51-0400 SaO2% (BldA) [Mass fraction] 98 % [facility] 12-11-2023 11:51-0400 Systolic blood pressure 134 mm[Hg] [facility] 12-11-2023 09:04-0400 Body height 167.64 cm [facility] 12-11-2023 09:04-0400 Body mass index (BMI) [Ratio] 21.9 kg/m2 [facility] 12-11-2023 09:04-0400 Body weight 61.64 kg [facility] 10-29-2023 09:33-0500 Body temperature 98.1 [degF] [facility] 10-29-2023 09:33-0500 Diastolic blood pressure 79 mm[Hg] [facility] 10-29-2023 09:33-0500 Heart rate 73 /min [facility] 10-29-2023 09:33-0500 Respiratory rate 23 /min [facility] 10-29-2023 09:33-0500 SaO2% (BldA) [Mass fraction] 93 % [facility] 10-29-2023 09:33-0500 Systolic blood pressure 115 mm[Hg] [facility] 10-29-2023 06:51-0500 Body height 167.64 cm [facility] 10-29-2023 06:51-0500 Body mass index (BMI) [Ratio] 21.9 kg/m2 [facility] 10-29-2023 06:51-0500 Body weight 61.5 kg [facility] 07-09-2023 11:16-0500 Diastolic blood pressure 60 mm[Hg] [facility] 07-09-2023 11:16-0500 SaO2% (BldA) [Mass fraction] 96 % [facility] 07-09-2023 11:16-0500 Systolic blood pressure 113 mm[Hg] [facility] 07-09-2023 10:00-0500 Heart rate 70 /min [facility] 07-09-2023 10:00-0500 Respiratory rate 18 /min [facility] 07-09-2023 07:01-0500 Body height 167.64 cm [facility] 07-09-2023 07:01-0500 Body mass index (BMI) [Ratio] 23.2 kg/m2 [facility] 07-09-2023 07:01-0500 Body temperature 98.9 [degF] [facility] 07-09-2023 07:01-0500 Body weight 65.3 kg [facility] 08-30-2022 15:41-0500 Body temperature 98 [degF] Dr. Jr Ryan Work Phone: [facility] Work Phone: 08-30-2022 15:41-0500 Diastolic blood pressure 88 mm[Hg] Dr. Jr Ryan Work Phone: [facility] Work Phone: 08-30-2022 15:41-0500 Heart rate 86 /min Dr. Jr Ryan Work Phone: [facility] Work Phone: 08-30-2022 15:41-0500 Respiratory rate 20 /min Dr. Jr Ryan Work Phone: [facility] Work Phone: 08-30-2022 15:41-0500 SaO2% (BldA) [Mass fraction] 92 % Dr. Jr Ryan Work Phone: [facility] Work Phone: 08-30-2022 15:41-0500 Systolic blood pressure 149 mm[Hg] Dr. Jr Ryan Work Phone: [facility] Work Phone: 08-30-2022 13:56-0500 Inhaled oxygen flow rate 3 L/min Dr. Jr Ryan Work Phone: [facility] Work Phone: 08-30-2022 09:14-0500 Body weight 62.[address] Jr Ryan Work Phone: [facility] Work Phone: 08-28-2022 11:55-0500 Body height 167.[address] Jr Ryan Work Phone: [facility] Work Phone: 08-26-2022 13:51-0500 Body mass index (BMI) [Ratio] 22.8 kg/m2 Dr. Jr Ryan Work Phone: [facility] Work Phone: 08-26-2022 13:17-0500 Body temperature 98.3 [degF] Dr. Jr Ryan Work Phone: [facility] Work Phone: 08-26-2022 13:17-0500 Diastolic blood pressure 72 mm[Hg] Dr. Jr Ryan Work Phone: [facility] Work Phone: 08-26-2022 13:17-0500 Heart rate 83 /min Dr. Jr Ryan Work Phone: [facility] Work Phone: 08-26-2022 13:17-0500 Respiratory rate 20 /min Dr. Jr Ryan Work Phone: [facility] Work Phone: 08-26-2022 13:17-0500 SaO2% (BldA) [Mass fraction] 94 % Dr. Jr Ryan Work Phone: [facility] Work Phone: 08-26-2022 13:17-0500 Systolic blood pressure 130 mm[Hg] Dr. Jr Ryan Work Phone: [facility] Work Phone: 08-26-2022 13:00-0500 Inhaled oxygen flow rate 4 L/min Dr. Jr Ryan Work Phone: [facility] Work Phone: 08-26-2022 10:52-0500 Body height 167.[address] Jr Ryan Work Phone: [facility] Work Phone: 08-26-2022 10:52-0500 Body mass index (BMI) [Ratio] 22.8 kg/m2 Dr. Jr Ryan Work Phone: [facility] Work Phone: 08-26-2022 10:52-0500 Body weight 64.[address] Jr Ryan Work Phone: [facility] Work Phone: 08-23-2022 21:00-0500 Heart rate 118 /min Dr. Jr Ryan Work Phone: [facility] Work Phone: 08-23-2022 21:00-0500 Respiratory rate 26 /min Dr. Jr Ryan Work Phone: [facility] Work Phone: 08-23-2022 21:00-0500 SaO2% (BldA) [Mass fraction] 94 % Dr. Jr Ryan Work Phone: [facility] Work Phone: 08-23-2022 20:27-0500 Inhaled oxygen flow rate 4 L/min [facility] Work Phone: 08-23-2022 20:27-0500 SaO2% (BldA) [Mass fraction] 99 % [facility] Work Phone: 08-23-2022 20:26-0500 Body temperature 97.7 [degF] [facility] Work Phone: 08-23-2022 20:26-0500 Diastolic blood pressure 83 mm[Hg] [facility] Work Phone: 08-23-2022 20:26-0500 Heart rate 103 /min [facility] Work Phone: 08-23-2022 20:26-0500 Respiratory rate 22 /min [facility] Work Phone: 08-23-2022 20:26-0500 Systolic blood pressure 148 mm[Hg] [facility] Work Phone: 08-23-2022 18:25-0500 Body height 167.64 cm [facility] Work Phone: 08-23-2022 18:25-0500 Body mass index (BMI) [Ratio] 22.8 kg/m2 [facility] Work Phone: 08-23-2022 18:25-0500 Body weight 64.41 kg [facility] Work Phone: 08-23-2022 11:43-0500 Body temperature 98.06 [degF] ARCHANA CALLEJAS MD [facility] 08-23-2022 11:43-0500 Body weight 65.3 kg ARCHANA CALLEJAS MD [facility] 08-23-2022 11:43-0500 Diastolic Blood Pressure Non-Invasive 93 1 ARCHANA CALLEJAS MD [facility] 08-23-2022 11:43-0500 Heart rate 102 /min ARCHANA CALLEJAS MD [facility] 08-23-2022 11:43-0500 Respiratory rate 18 /min ARCHANA CALLEJAS MD [facility] 08-23-2022 11:43-0500 Systolic Blood Pressure Non-Invasive 176 1 ARCHANA CALLEJAS MD [facility] 06-20-2021 14:02-0400 Body temperature 97.16 [degF] JAYMIE SUERO DO [facility] 06-20-2021 14:02-0400 Diastolic blood pressure 62 mm[Hg] JAYMIE SUERO DO [facility] 06-20-2021 14:02-0400 Heart rate 74 /min JAYMIE SUERO [employer] [facility] 06-20-2021 14:02-0400 Respiratory rate 22 /min JAYMIE SUERO [employer] [facility] 06-20-2021 14:02-0400 Systolic blood pressure 154 mm[Hg] JAYMIE SUERO [employer] [facility] 06-20-2021 11:40-0400 Body temperature 100.04 [degF] JAYMIE SUERO [employer] [facility] 06-20-2021 11:40-0400 Diastolic blood pressure 90 mm[Hg] JAYMIE SUERO [employer] [facility] 06-20-2021 11:40-0400 Heart rate 87 /min JAYMIE SUERO [employer] [facility] 06-20-2021 11:40-0400 Respiratory rate 24 /min JAYMIE SUERO [employer] [facility] 06-20-2021 11:40-0400 Systolic blood pressure 162 mm[Hg] JAYMIE SUERO [employer] [facility] Encounters Encounter Date Encounter Type Care Provider Facility Start: 06-02-2025 Non-patient / Non-visit Dr. Karen Le DO [facility] Work Phone: Start: 06-01-2025 ambulatory [...] End: 04-16-2025 ambulatory TIGRE RESTREPO Facility:[facility] Start: 04-16-2025 End: 04-16-2025 Subsequent hospital visit by physician Ct [facility] Radiology Comment on above: Lung mass [R91.8] Start: 12-02-2024 Non-patient / Non-visit Dr. Bradley [facility] Start: 12-02-2024 Non-patient / Non-visit Dr. Anirudh dupree [facility] Work Phone: Start: 12-01-2024 End: 12-01-2024 ambulatory Anirudh Thompson Facility:[facility] Start: 12-01-2024 Non-patient / Non-visit Dr. Anirudh dupree [facility] Work Phone: Start: 12-01-2024 ambulatory Anirudh Thompson Facility:[facility] Start: 12-01-2024 End: 12-02-2024 Evaluation and management of inpatient Dr. Anirudh Thompson [facility] Work Phone: Start: 10-26-2024 End: 10-26-2024 [...] End: 10-16-2024 ambulatory TIGRE RESTREPO Facility:[facility] Start: 10-16-2024 End: 10-16-2024 Subsequent hospital visit by physician Ct [facility] Radiology Comment on above: Pneumonia of both braydon ngs due to Pseudomonas species, unspecified part of lung (HCC) [J15.1] Start: 10-09-2024 End: 10-09-2024 Telephone encounter Tigre Restrepo MD Work Phone: Pulmonary Medicine Comment on above: Patient Request (Lana marvin) Start: 07-07-2024 ambulatory [facility] Start: 07-01-2024 End: 07-01-2024 Telephone encounter Tigre Restrepo MD Work Phone: Pulmonary Medicine Start: 06-24-2024 ambulatory [facility] Start: 06-09-2024 End: 06-09-2024 Telephone encounter Claire Turner MD Work Phone: Cardiology Start: 06-05-2024 ambulatory CLAIRE TURNER [facility] ity:[facility] Start: 06-05-2024 End: 06-05-2024 Subsequent hospital visit by physician [facility] Work Phone: Cardiology Lab Comment on above: Murmur [R01.1] Start: 06-01-2024 End: 06-01-2024 Refill Tigre Restrepo MD Work Phone: Pulmonary Medicine Comment on above: Refill Request Start: 05-28-2024 End: 05-28-2024 Telephone encounter Tigre Restrepo MD Work Phone: [facility] Adult Comment on above: Results Start: 05-27-2024 End: 05-28-2024 Telephone encounter Tigre Restrepo MD Work Phone: [facility] Adult Start: 05-25-2024 End: 05-26-2024 Telephone [...] 4 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 ([facility]) Start: 05-14-2024 End: 05-14-2024 Orders Only Mehreen [...] encounter Tigre Restrepo MD Work Phone: [facility] Comment on above: Appointment (Schedul e biopsy ) Appointment Start: 04-28-2024 End: 04-29-2024 Telephone encounter Tigre Restrepo MD Work Phone: Pulmonary Medicine Comment on above: Cardiac Clearance Start: 04-21-2024 End: 04-21-2024 Patient encounter procedure Sahara Weldon MD Work Phone: Pulmonary Medicine Start: 04-21-2024 End: 04-21-2024 Telephone encounter Tigre Restrepo MD Work Phone: [place] [facility] Adult Comment on above: Appointment Start: 04-21-2024 ambulatory TIGRE RESTREPO Facili ty:[facility] Start: 04-21-2024 End: 04-21-2024 Subsequent hospital visit by physician Injection [facility] Comment on above: Lung nodules [R91.8] Start: 04-10-2024 Telephone encounter Tigre Restrepo MD Work Phone: Pulmonary Medicine Start: 03-27-2024 Telephone encounter Tigre Restrepo MD Work Phone: Pulmonary Medicine Start: 03-27-2024 End: 03-27-2024 Subsequent hospital visit by physician Ct [facility] ([facility]) Work Phone: Cat Scan Comment on above: Chest pain, unspecif ied type [R07.9] Start: 03-26-2024 Telephone encounter Tigre Restrepo MD Work Phone: Pulmonary Medicine Start: 03-25-2024 Telephone encounter Tigre Restrepo MD Work Phone: Pulmonary Medicine Comment on above: Received Outside [facility] Records ([facility]) Patient Update Start: 03-25-2024 End: 03-25-2024 Subsequent hospital visit by physician Ct [facility] ([facility]) Work Phone: Cat Scan Start: 03-24-2024 End: 03-24-2024 Subsequent hospital visit by physician [facility] Work Phone: Radiology Comment on above: Pulmonary emphysema, unspecified emphysema type (HCC) [J43.9] Start: 03-24-2024 End: 03-24-2024 ambulatory Pulm Work Phone: Pulmonary Medicine Comment on above: Spirometry Start: 03-24-2024 End: 03-24-2024 Patient encounter procedure Pulm [facility] Work Phone: Pulmonary Medicine Comment on above: Lung nodules (Primar y Dx); Centrilobular emphysema (HCC); Chest pain on breathing; Cavitary lesion of lung; Allergy to environmental factors; Ex-smoker Start: 03-04-2024 Telephone encounter [facility] Provider Pul monary Medicine Comment on above: Referral Request Start: 12-20-2023 Non-patient / Non-visit Dr. Christi Ryan Work Phone: [facility] Work Phone: Start: 12-19-2023 Non-patient / Non-visit Dr. Christi Ryan Work Phone: [facility] Work Phone: Start: 12-18-2023 Non-patient / Non-visit Dr. Christi Ryan Work Phone: [facility] Work Phone: Start: 12-17-2023 Non-patient / Non-visit Dr. Christi Ryan Work Phone: [facility] Work Phone: Start: 12-17-2023 End: 12-20-2023 Evaluation and management of inpatient Dr. Jr Ryan Work Phone: [facility] 3 Work Phone: Start: 12-15-2023 End: 12-15-2023 Emergency department patient visit JR RYAN Facility:[id number] Start: 12-11-2023 End: 12-11-2023 Emergency department patient visit [facility] Work Phone: Start: 10-29-2023 End: 10-29-2023 Emergency department patient visit [facility] Work Phone: Start: 07-09-2023 End: 07-09-2023 Emergency department patient visit [facility] Work Phone: Start: 01-22-2023 End: 01-22-2023 ambulatory [facility] Work Phone: Start: 01-22-2023 End: 01-22-2023 Patient encounter procedure [facility]-Cat Scan, [facility] Work Phone: Start: 08-30-2022 Non-patient / Non-visit Dr. Christi Ryan Work Phone: [facility] Start: 08-29-2022 Non-patient / Non-visit Dr. Christi Ryan Work Phone: [facility] Start: 08-28-2022 Non-patient / Non-visit Dr. Christi Ryan Work Phone: [facility] Start: 08-27-2022 Non-patient / Non-visit Dr. Christi Ryan Work Phone: [facility] Start: 08-26-2022 Non-patient / Non-visit Dr. Christi Ryan Work Phone: [facility] Start: 08-26-2022 End: 08-30-2022 Evaluation and management of inpatient Dr. Jr Ryan Work Phone: [facility]-Medical Surgical 3 Start: 08-23-2022 End: 08-23-2022 Emergency department patient visit [facility] Start: 08-23-2022 End: 08-23-2022 Emergency department patient visit RADHA STAHL MD Facility:A Start: 08-23-2022 End: 08-23-2022 Emergency department patient visit ARCHANA CALLEJAS MD [facility] Start: 07-13-2022 End: 07-13-2022 ambulatory [facility] Work Phone: Start: 07-13-2022 End: 07-13-2022 Patient encounter procedure [facility] Start: 06-20-2021 End: 06-20-2021 Emergency department patient visit JAYMIE SUERO DO [facility] Start: 11-18-2020 End: 11-18-2020 Patient encounter procedure SAHARA JAY [facility] Procedures Date Procedure Procedure Detail Performing Clinician [...] of fr acture with internal fixation JAYMIE SUREO DO Comment on above: R HIP Start: [...] Author Start: 03-11-2027 Diabetes Screening Diabetes Screenin [facility] Start: 12-13-2026 Diabetes Screening Diabetes Screenin [facility] Start: 04-16-2026 End: 05-16-2026 CT Chest WO contrast CT CHEST WO IVCON Radiology Routine Lung nodules Expected: 04/16/2026, Expires: 05/16/2026 [facility] Work Phone: Comment on above: Expected: 04/16/2026 , Expires: 05/16/2026 Start: 08-13-2025 End: 08-13-2025 Patient encounter procedure 08/13/2025 9:00 AM EST Office Visit Cardiology [address] [address] Claire Turner MD [address] [place] [address] Was told he had a blockage on cath in [facility]. Also had cMRI in [place] which was concerning. Cardiology Comment on above: Was told he had a bl ockage on cath in [facility]. Also had cMRI in [place] which was concerning. Start: 06-02-2025 Patient discharge [facility] Start: 06-01-2025 End: 06-01-2025 Following clinical pathway protocol [facility] Start: 06-01-2025 Assessment of risk o f venous thromboembolism [facility] Start: 06-01-2025 Catheterization of vein [facility] Start: 06-01-2025 Incentive spirometry [facility] Start: 06-01-2025 Insertion of cathete r into peripheral vein [facility] Start: 06-01-2025 Physiotherapy of chest [facility] Start: 06-01-2025 Providing care accor ding to standard [facility] Start: 06-01-2025 Provision of activit y privileges [facility] Start: 06-01-2025 Referral for physica l therapy [facility] Start: 06-01-2025 Referral to occupati onal therapist [facility] Start: 06-01-2025 Referral to service [facility] Start: 06-01-2025 [facility] Start: 06-01-2025 Respiratory pathogen s DNA and RNA panel - Respiratory specimen by JELENA with probe detection [facility] Start: 06-01-2025 Verification routine [facility] Start: 06-01-2025 Admission procedure [facility] Start: 06-01-2025 Hospital admission, emergency, from emergency room, medical nature [facility] Start: 06-01-2025 [facility] Start: 04-26-2025 Influenza vaccination Influenza Vacc ine (#1) [facility] Start: 04-16-2025 End: 04-16-2025 Patient encounter procedure Radiology Comment on above: CT COPD Start: 04-15-2025 End: 11-15-2025 CT Chest WO contrast CT CHEST WO IVCON Radiology Routine Lung mass Expected: 04/15/2025, Expires: 11/15/2025 [facility] Work Phone: Comment on above: Expected: 04/15/2025 , Expires: 11/15/2025 Start: 12-02-2024 Patient discharge [facility] Start: 12-01-2024 Oxygen therapy [facility] Start: 12-01-2024 Respiratory Culture Respiratory Cult ure [facility] Start: 12-01-2024 Following clinical p athway protocol [facility] Start: 12-01-2024 Ambulation without limitation [facility] Start: 12-01-2024 Assessment of risk o f venous thromboembolism [facility] Start: 12-01-2024 Elevation of head of bed [facility] Start: 12-01-2024 Insertion of cathete r into peripheral vein [facility] Start: 12-01-2024 Measuring intake and output [facility] Start: 12-01-2024 Notification of physician [facility] Start: 12-01-2024 Patient education [facility] Start: 12-01-2024 Physiotherapy of chest [facility] Start: 12-01-2024 Providing care accor ding to standard [facility] Start: 12-01-2024 [facility] Start: 12-01-2024 Bacteria identified in Sputum by Culture [facility] Start: 12-01-2024 Legionella pneumophi la Ag [Presence] in Urine [facility] Start: 12-01-2024 Streptococcus pneumo niae antigen assay [facility] Start: 12-01-2024 Verification routine [facility] Start: 12-01-2024 Admission procedure [facility] Start: 12-01-2024 End: 12-01-2024 Hospital admission, emergency, from emergency room, medical nature [facility] Start: 12-01-2024 Inhalation therapy procedure [facility] Start: 12-01-2024 [facility] Start: 10-16-2024 End: 01-15-2025 Basic metabolic 2000 panel - Serum or Plasma BASIC METABOLIC PANEL Lab Routine Lung mass Expected: 10/16/2024, Expires: 01/15/2025 [facility] Comment on above: Expected: 10/16/2024 , Expires: 01/15/2025 Start: 10-16-2024 End: 01-15-2025 CBC panel - Blood by Automated count COMPLETE BLOOD COUNT Lab Routine Lung mass Expected: 10/16/2024, Expires: 01/15/2025 [facility] Comment on above: Expected: 10/16/2024 , Expires: 01/15/2025 Start: 10-16-2024 End: 10-16-2024 Patient encounter procedure Radiology Comment on above: Pneumonia of both braydon ngs due to Pseudomonas species, unspecified part of lung (HC... COPD Start: 08-26-2024 Advance Directive Discussion Advance Directive Discussion [facility] Start: 06-05-2024 End: 06-05-2024 Patient encounter procedure 06/05/2024 9:00 AM EDT Appointment Cardiology Lab [address] [place] [address] Murmur [R01.1] Cardiology Lab Comment on above: Murmur [R01.1] Start: 05-25-2024 End: 05-25-2024 Admission to same day surgery center 05/25/2024 9:30 AM EDT - 05/25/2024 11:30 AM EDT Surgery Admitting [address] [address] Mehreen Crow MD [address] [place] [address] BRONCHOSCOPY FLEXIBLE ADULT Admitting Comment on above: BRONCHOSCOPY FLEXIBL E ADULT Start: 05-25-2024 End: 05-25-2024 [facility] incl fluor gdnce dx w/cell washg spx BRONCHOSCOPY FLEXIBLE ADULT Bronchiolar disease 05/25/2024 9:30 AM EDT PULM LAB H23 Start: 05-25-2024 Subsequent hospital visit by physician 05/25/2024 9:30 AM EDT Hospital Encounter Admitting [address] [address] Mehreen Crow MD [address] [place] [address] Bronchiolar disease [J98.09] Admitting Comment on above: Bronchiolar disease [J98.09] Start: 05-22-2024 End: 05-22-2025 Echocardiography ECHO Cardiology Routine Murmur Expected: 05/22/2024, Expires: 05/22/2025 [facility] Work Phone: Comment on above: Expected: 05/22/2024 , Expires: 05/22/2025 Start: 05-22-2024 End: 05-22-2024 Patient encounter procedure 05/22/2024 8:00 AM EDT Office Visit Cardiology [address] [id number] Claire Turner MD [address] [place], [place] [id number] Was told he had a blockage on cath in [facility]. Also had cMRI in [place] which was concerning. Cardiology Comment on above: Was told he had a bl ockage on cath in [facility]. Also had cMRI in [place] which was concerning. Start: 05-15-2024 End: 05-15-2024 Patient encounter procedure Pulmonary Medicine Comment on above: Established Visit Pre Op Testing Start: 04-26-2024 Covid-19 Vaccine ( season) Covid-19 Vaccine ( season) [facility] Start: 04-26-2024 Covid-19 Vaccine ( season) Covid-19 Vaccine ( season) [facility] Start: 04-26-2024 Influenza vaccination Influenza Vacc ine (#1) [facility] Start: 04-24-2024 Lipid panel Lipid Screening [facility] Start: 03-27-2024 End: 03-27-2024 Patient encounter procedure 03/27/2024 9:40 AM EDT Appointment Cat Scan [address] [place] [id number] CCN was accepted, Cat Scan Comment on above: CCN was accepted, Start: 03-25-2024 End: 03-25-2024 Patient encounter procedure 03/25/2024 8:40 AM EDT Appointment Cat Scan [address] MY[place] [id number] Chest pain on breathing [R07.1] Cat Scan Comment on above: Chest pain on breath ing [R07.1] Start: 03-24-2024 End: 06-23-2024 Alpha 1 antitrypsin [Mass/volume] in Serum or Plasma [id number] Lab Routine Centrilobular emphysema (HCC) Expected: 03/24/2024, Expires: 06/23/2024 [facility] Comment on above: Expected: 03/24/2024 , Expires: 06/23/2024 Start: 03-24-2024 End: 06-23-2024 CREATININE BLD CREATININE BLD Lab Routine Lung nodules Expected: 03/24/2024, Expires: 06/23/2024 [facility] Comment on above: Expected: 03/24/2024 , Expires: 06/23/2024 Start: 03-24-2024 End: 03-24-2024 Patient encounter procedure Radiology Comment on above: Pulmonary emphysema, unspecified emphysema type (HCC) [J43.9] Provider: [employer] Start: 03-24-2024 End: 03-24-2024 ambulatory Pulmonary Medicine Comment on above: Provider: [employer] Start: 12-20-2023 Patient discharge [facility] Start: 12-19-2023 Physiotherapy of chest [facility] Start: 12-17-2023 Oxygen therapy [facility] Start: 12-17-2023 Ambulation without limitation [facility] Start: 12-17-2023 Assessment of risk o f venous thromboembolism [facility] Start: 12-17-2023 Inhalation therapy procedure [facility] Start: 12-17-2023 Insertion of cathete r into peripheral vein [facility] Start: 12-17-2023 Providing care accor ding to standard [facility] Start: 12-17-2023 Respiratory secretio n precautions [facility] Start: 12-17-2023 Following clinical p athway protocol [facility] Start: 12-17-2023 Legionella pneumophi la Ag [Presence] in Urine [facility] Start: 12-17-2023 Streptococcus pneumo niae antigen assay [facility] Start: 12-17-2023 End: 12-17-2023 [facility] Start: 12-17-2023 Hospital admission, emergency, from emergency room, medical nature [facility] Start: 12-17-2023 Admission procedure [facility] Start: 12-17-2023 End: 12-17-2023 Blood culture [facility] Start: 12-17-2023 Bacteria identified in Blood by Culture Blood Culture [facility] Start: 12-17-2023 Bacteria identified in Urine by Culture [facility] Start: 12-17-2023 Microscopic observat ion [Identifier] in Unspecified specimen by Gram stain [facility] Start: 12-17-2023 Respiratory Culture Respiratory Cult ure [facility] Start: 12-17-2023 Respiratory microbia l culture Respiratory Culture [facility] Start: 12-17-2023 [facility] Start: 12-17-2023 Patient referral to dietitian [facility] Start: 12-17-2023 [facility] Start: 12-11-2023 [facility] Start: 12-11-2023 [facility] Start: 10-29-2023 [facility] Start: 10-29-2023 [facility] Start: 08-26-2023 Advance Directive Discussion Advance Directive Discussion [facility] Start: 08-26-2023 Behavioral Health Screening Behavioral Health Screening [facility] Start: 07-09-2023 [facility] Start: 04-26-2023 Covid-19 Vaccine ( season) Covid-19 Vaccine () [facility] Start: 08-30-2022 Patient discharge [facility] Work Phone: Start: 08-27-2022 Inhalation therapy procedure [facility] Work Phone: Start: 08-26-2022 Dual pressure sponta neous ventilation support [facility] Work Phone: Start: 08-26-2022 Respiratory secretio n precautions [facility] Work Phone: Start: 08-26-2022 Assessment of risk o f venous thromboembolism [facility] Work Phone: Start: 08-26-2022 Elevation of head of bed [facility] Work Phone: Start: 08-26-2022 Incentive spirometry [facility] Work Phone: Start: 08-26-2022 Insertion of cathete r into peripheral vein [facility] Work Phone: Start: 08-26-2022 Oxygen therapy [facility] Work Phone: Start: 08-26-2022 Patient education [facility] Work Phone: Start: 08-26-2022 Physiotherapy of chest [facility] Work Phone: Start: 08-26-2022 Providing care accor ding to standard [facility] Work Phone: Start: 08-26-2022 Provision of activit y privileges [facility] Work Phone: Start: 08-26-2022 Referral to occupati onal therapist [facility] Work Phone: Start: 08-26-2022 Referral to service [facility] Work Phone: Start: 08-26-2022 [facility] Work Phone: Start: 08-26-2022 Following clinical p athway protocol [facility] Work Phone: Start: 08-26-2022 Legionella pneumophi la Ag [Presence] in Urine [facility] Work Phone: Start: 08-26-2022 Streptococcus pneumo niae antigen assay [facility] Work Phone: Start: 08-26-2022 Verification routine [facility] Work Phone: Start: 08-26-2022 Admission procedure [facility] Work Phone: Start: 08-26-2022 [facility] Work Phone: Start: 08-26-2022 Blood culture [facility] Work Phone: Start: 08-26-2022 End: 08-27-2022 [facility] Work Phone: Start: 08-23-2022 [facility] Work Phone: Start: 06-17-2021 Annual PCP Team Deliverer Outside ruba Disease Visit Annual PCP Team Chronic Disease Visit [facility] Start: 01-10-2019 Screening for malign ant neoplasm of colon [facility] Start: 01-01-2016 Pneumococcal Vaccine : 65+ (1 of 1 - PCV) Pneumococcal Vaccine: 65+ (1 of 1 - PCV) [facility] Start: 2010 RSV Vaccine (1 - 1-d ose 60+ series) RSV Vaccine (1 - 1-dose 60+ series) [facility] Start: 2010 RSV Vaccine (1 - Ris k 60-74 years 1-dose series) RSV Vaccine (1 - Risk 60-74 years 1-dose series) [facility] Start: 09-25-2005 Urine microalbumin profile DTa P,Tdap,Td Vaccine (1 - Tdap) [facility] Start: 2000 Shingrix Vaccine (1 of 2) Odom grix Vaccine (1 of 2) [facility] Start: 01-01-1996 Screening for malign ant neoplasm of colon [facility] Start: 1980 Zoledronic acid therapy Alpha- 1 Antitrypsin Deficiency Screening [facility] Start: 1969 Pneumococcal Vaccine : 50+ (1 of 2 - PCV) Pneumococcal Vaccine: 50+ (1 of 2 - PCV) [facility] Start: 1968 Anxiety Screening Anxiety Screening [facility] Start: 1968 BP Controlled (<130/80) BP Controlle d (<130/80) [facility] Start: 1968 Depression Screening Depression Scre ening [facility] Start: 1968 Spirometry Spirometry [facility] Start: 1956 Pneumococcal Vaccine : 65+ (1 of 2 - PCV) Pneumococcal Vaccine: 65+ (1 of 2 - PCV) [facility] Start: 1950 Abdominal aortic ane urysm screening Abdominal Aortic Aneurysm Screening [facility] Bacteria identified in Blood by Culture Blood Culture [facility] Work Phone: Bacteria identified in Sputum by Respiratory culture [facility] Blood culture [facility] Work Phone: End: 04-23-2025 CT Chest WO contrast CT CHEST WO IVCON Radiology Routine Lung nodules 1 Occurrences starting 03/24/2024 until 04/23/2025 [facility] Work Phone: Comment on above: 1 Occurrences starti ng 03/24/2024 until 04/23/2025 End: 06-13-2025 CT Chest WO contrast CT CHEST WO IVCON Radiology Routine Multiple nodules of lung 1 Occurrences starting 05/14/2024 until 06/13/2025 [facility] Work Phone: Comment on above: 1 Occurrences starti ng 05/14/2024 until 06/13/2025 CT Chest WO contrast CT CHEST WO IVCON Radiology Routine Pneumonia of both lungs due to Pseudomonas species, unspecified part of lung (HCC) 10/16/2024 7:11 AM EST [facility] Work Phone: CT Chest WO contrast CT CHEST WO IVCON Radiology Routine Lung mass 04/16/2025 8:58 AM EDT [facility] Work Phone: End: 04-23-2025 CTA Pulmonary arteries for pulmonary embolus W contrast IV CT CHEST W IVCON PE Radiology STAT Chest pain on breathing 1 Occurrences starting 03/24/2024 until 04/23/2025 [facility] Comment on above: 1 Occurrences starti ng 03/24/2024 until 04/23/2025 End: 04-25-2025 CTA Pulmonary arteries for pulmonary embolus W contrast IV CT CHEST W IVCON PE Radiology KERRY Chest pain, unspecified type 1 Occurrences starting 03/26/2024 until 04/25/2025 [facility] Work Phone: Comment on above: 1 Occurrences starti ng 03/26/2024 until 04/25/2025 Microorganism identi fied in Unspecified specimen by Culture [facility] Patient Education [facility] Work Phone: Patient referral [facility] Work Phone: End: 04-26-2025 PET+CT Guidance for localization of tumor of Skull base to mid-thigh-- W [id number] IV NM PET/CT SKULL-THIGH INITIAL Radiology KERRY Lung nodules 1 Occurrences starting 03/27/2024 until 04/26/2025 [facility] Work Phone: Comment on above: 1 Occurrences starti ng 03/27/2024 until 04/26/2025 Immunizations Immunization Date Immunization Notes Care Provider Lily henry 06-02-2025 influenza, high dose seasonal, preservative-free Dr. Vivi Pike DO Work Phone: [facility] 09-11-2016 influenza virus vaccine, unspecified formulation Ccf Provider [facility] 09-24-2005 tetanus and diphther ia toxoids, adsorbed, preservative free, for adult use (2 Lf of tetanus toxoid and 2 Lf of diphtheria toxoid) [facility]cf Provider [facility] Payers Date Payer Category Payer Unknown [id number] 2023 Private Health Insurance [facility] GENER[facility] [id number] 2023 Unknown [id number] 2023 Unknown [id number] 2022 Self-pay [id number] 1950 Unknown [id number] Unknown [id number] Unknown [id number] Unknown [id number] Unknown [id number] Unknown [id number] Unknown [id number] Unknown [id number] Unknown [id number] Unknown [id number] Unknown [id number] Social History Date Type Detail Facility Start: 01-08-2018 End: 06-01-2025 Ex-smoker (finding) [facility] Sex Assigned At [facility] Start: 05-01-2021 End: 12-17-2023 Tobacco smoking status MEIS Unknown if ever smoked [facility] Start: 1950 Sex Assigned At Male [facility] Start: 10-24-1969 End: 10-24-2005 History of tobacco use Current smoker [facility] Start: 10-24-1969 End: 10-24-2005 History of tobacco use Cigarette Smoker [facility] Start: 01-08-2018 End: 12-15-2023 Cigarettes smoked current (pack per day) - Reported 0.5 [facility] Start: 01-08-2018 End: 05-15-2024 Tobacco use and exposure Smokeless tobacco non-user [facility] Start: 06-17-2020 End: 04-16-2025 Alcohol intake Current drinker of alcohol (finding) [facility] Start: 06-17-2020 End: 12-15-2023 Tobacco use panel [facility] Start: 07-27-2012 Adult Depression Screening Assessment 0 [facility] Start: 1950 Sex Assigned At Not on file [facility] Start: 12-01-2024 End: 12-02-2024 Sex Male (finding) [facility] Goals Date Patient Goal Desired Activity /State Functional Status Date Assessment Result Facility 06-02-2025 Functional status Ambulates [facility] Work Phone: 12-02-2024 Functional status Ambulates;Up ad juan josé [facility] Work Phone: 12-20-2023 Functional status Ambulates [facility] Work Phone: 08-30-2022 Functional status Patient Activity Chair [facility] Work Phone: 08-30-2022 Functional status Independent [facility] Work Phone: 11-23-2014 Are you deaf, or do you have serious difficulty hearing Yes 11/23/2014 6:33 PM Rodrigo Perry LPN Yes [facility] 11-23-2014 Are you blind, or do you have serious difficulty seeing, even when wearing glasses No 11/23/2014 6:33 PM Rodrigo Perry LPN No [facility] 11-23-2014 Do you have serious difficulty walking or climbing stairs No 11/23/2014 6:33 PM Rodrigo Perry LPN No [facility] 11-23-2014 Do you have difficul ty dressing or bathing No 11/23/2014 6:33 PM Rodrigo Perry LPN No [facility] 11-23-2014 Because of a physica l, mental, or emotional condition, do you have difficulty doing errands alone such as visiting a physician's office or shopping No 11/23/2014 6:33 PM Rodrigo Perry LPN No [facility] Mental Status Date Assessment Result Facility 06-02-2025 Cognitive function Voice/Name [facility] Work Phone: 12-01-2024 Cognitive function Voice/Name [facility] Work Phone: 12-20-2023 Cognitive function Voice/Name [facility] Work Phone: 08-30-2022 Cognitive function Voice/Name [facility] Work Phone: 11-23-2014 Because of a physica l, mental, or emotional condition, do you have serious difficulty concentrating, remembering, or making decisions No 11/23/2014 6:33 PM EDT Rodrigo Rojas LPN No [facility] Clinical Notes 06-20-2021 to 06-02-2025 Note Date & Type Note Facility 06-02-2025 Consult note [facility] 06-02-2025 Discharge summary [facility] 06-02-2025 Note [facility] Medical Records Department [address] [place] [address] Discharge Summary 06/02/25 1153 MR#: [id number] Acct: [id number] Name: BEATRIS QUINN Eligio Rep #: [id number] : 1950 74 From: Karen Le DO PCP: VIVEK Yañez Status:ADM IN [facility] Prov[facility] Date of Admission: 06/01/25 Date of [...] who presented to the emergency department at [facility] on 06/01/2025 with chief complaint of [...] His initial t (more content not included)... [facility] 06-01-2025 History and physi florinda note Note Date/Time June 01, 2025 5:17pm [facility] Medical Records Department [address] [place] [address] H&P Exam - Hospitalist 06/01/25 1056 MR#: [id number] Acct: [id number] Name: BEATRIS QUINN Rep #:[id number] : 1950 74 From: Karen Le DO PCP: VIVEK Yañez Status:AD M IN Location: [facility] [id number] HPI - General General Date of Admission: 06/01/25 Date of Service: 06/01/25 Chief Complaint: Shortness of breath HPI Narrative BEATRIS QUINN, is a 74 M who presented to the emergency department at [facility] on 06/01/2025 with chief complaint of [...] was made. He will be admitted to [facility] and at the time of admissionI do anticipate at least 2 midnight stay. [facility] Medical History COPD (chronic obstructive pulmonary disease) Hypertension Aortic stenosis Elevated coronary artery calcium score Urinary retention Heart murmur Anxiety On home oxygen therapy Acute hypoxemic respiratory failure Pneumonia COPD (chronic obstructive pulmonary disease) [place] (hard of hearing) Hypertension Home Medications ?Medication [...] 71.4 H, Lymph % (Auto) 15.9 L, Miner % (Auto) 9.4, Eos % (Auto) 2.2, [...] No new consolidation. 2. Granulomas. Reading Location: [facility] Assessment & Plan Assessment/Plan [...] of admission Charges/Coding Visit Charges Inpatient E&M: 96573 Init Hosp L2 06/01/25 1717 <Electronically signed by Karen Le DO> Cosigner Signature (if applicable): CC: RUBBER MOLDER-C Michelle Ferraro; Dr. Karen Le DO~ Signed [facility] Work Phone: 1(748) 945-696810-07-2025 History and physical note [facility] Medical Records Department [address] [place] [address] H&P Exam - Hospitalist 06/01/25 1056 MR#: [id number] Acct: [id number] Name: BEATRIS QUINN Rep #:[id number] : 1950 74 From: Karen Le DO PCP: Michelle Ferraro, VIVEK Status:AD M IN Location: [facility] [id number] HPI - General General Date of Admission: 06/01/25 Date of Service: 06/01/25 Chief Complaint: Shortness of breath HPI Narrative BEATRIS QUINN, is a 74 M who presented to the emergency department at [facility] on 06/01/2025 with chief complaint of [...] was made. He will be admitted to [facility] and at the time of admissionI do anticipate at least 2 midnight stay. [facility] Medical History COPD (chronic obstructive pulmonary disease) Hypertension Aortic stenosis Elevated coronary artery calcium score Urinary retention Heart murmur Anxiety On home oxygen therapy Acute hypoxemic respiratory failure Pneumonia COPD (chronic obstructive pulmonary disease) [place] (hard of hearing) Hypertension Home Medications ?Medication [...] 71.4 H, Lymph % (Auto) 15.9 L, Miner % (Auto) 9.4, Eos % (Auto) 2.2, [...] No new consolidation. 2. Granulomas. Reading Location: [facility] Assessment & Plan Assessment/Plan [...] of admission Charges/Coding Visit Charges Inpatient E&M: 29974 Init Hosp L2 06/01/25 1717 Cosigner Signature (if applicable): CC: RUBBER MOLDERHadley Ferraro; Dr. Karen Le, DO~ Signed [facility]10-07-2025 Evaluation note* Diagnosis Onset Date Resolution Status Admit Date Elevated troponin acute June 01, 2025 12:28pm Hypoxia acute June 01, 2 025 12:28pm Increased sputum production acute June 01, 2025 12:28pm Pulmonary nodules acute June 01, 2025 12:28pm [facility] Work Phone: 1(434) 765-397010-07-2025 Discharge summary Author Vivi Pike [facility] Note Date/Time June 01, 2025 12 :23pm [facility] Medical Records Department [address] [facility] [place] [address] Emergency Department Summary 06/01/25 MR#: [id number] Acct: [id number] Name: BEATRIS QUINN Rep #:[id number] : 1950 74 From: Vivi Chen PCP: [...] Recent immobilization, Recent surgery or Recent travel [facility] Medical History Aortic stenosis Elevated coronary artery calcium score Urinary retention Heart murmur Anxiety On home oxygen therapy Acute hypoxemic respiratory failure Pneumonia COPD (chronic obstructive pulmonary disease) [place] (hard of hearing) Hypertension Home Medications ?Medication [...] on emphysematous changes. Patient be admitted to [facility]. Lab Data Attestation: I reviewed the patient's [...] 71.4 H Lymph % (Auto) 15.9 L Miner % (Auto) 9.4 Eos % (Auto) 2.2 [...] No new consolidation. 2. Granulomas. Reading Location: [id number] Chest CTA 06/01/25 11:12 IMPRESSION: No evidence of pulmonary embolism. Bilateral pulmonary nodules superimposed on emphysematous changes. Reading Location: [id number] Rhythm Strip Rhythm Strip: Sinus Rhythm Rate: [...] disease, Hypoxia Disposition Disposition: [facility] Care [facility] What to do if you have Problems For any increased pain, shortness of breath, bleeding, nausea or vomiting, chestpain, or any unexpected problems, contact your Primary Care Provider. Call [facility] ([phone]) or report to the closest Emergency Room. Call 911 if necessary. 06/01/25 1223 <Electronically signed by Vivi Pike DO> Cosigner Signature (if applicable): CC: ROWENA FERRARO ~ Signed [facility] Work Phone: 1(210) 714-467810-07-2025 Discharge summary [facility] Medical Records Department [address] [place] [address] Emergency Department Summary 06/01/25 MR#: [id number] Acct: [id number] Name: BEATRIS QUINN Rep #:[id number] : 1950 74 From: Vivi Chen PCP: [...] Recent immobilization, Recent surgery or Recent travel [facility] Medical History Aortic stenosis Elevated coronary artery calcium score Urinary retention Heart murmur Anxiety On home oxygen therapy Acute hypoxemic respiratory failure Pneumonia COPD (chronic obstructive pulmonary disease) [place] (hard of hearing) Hypertension Home Medications ?Medication [...] [facility] he does not have a pulmonary emboli. This is obtained and negative for any PE. Does show bilateral pulmonary nodule superimposed on emphysematous changes. Patient be admitted to [facility] floor. Lab Data Attestation: I reviewed the [...] 71.4 H Lymph % (Auto) 15.9 L Miner % (Auto) 9.4 Eos % (Auto) 2.2 [...] No new consolidation. 2. Granulomas. Reading Location: [facility] Chest CTA 06/01/25 11:12 IMPRESSION: No evidence of pulmonary embolism. Bilateral pulmonary nodules superimposed on emphysematous changes. Reading Location: [id number]-R Rhythm Strip Rhythm Strip: Sinus Rhythm Rate: [...] disease, Hypoxia Disposition Disposition: Acute Care [facility] What to do if you have Problems For any increased pain, shortness of breath, bleeding, nausea or vomiting, chestpain, or any unexpected problems, contact your Primary Care Provider. Call [facility] ([phone]) or report tothe closest Emergency Room. Call 911 if necessary. 06/01/25 1223 Cosigner Signature (if applicable): CC: ROWENA FERRARO ~ Signed [facility]10-07-2025 Radiology Diagnostic study note [facility] Imaging Services [address] [place] [address] CTA Chest W/WO Contrast MR#: [id number] Acct: [id number] Name: BEATRIS QUINN Rep #: [id number] : 1950 M 74 From: Jose Briscoe MD PCP: ROWENA FERRARO Status: REG ER Study:CTA Chest W/WO Contrast Date of Exam: 06/01/25 Exam# [id number] Ordering Dr: Kira Le DO PROCEDURE: CTA [...] nodules superimposed on emphysematous changes. Reading Location: [facility] CC: Dr. Karen Le DO; ROWENA FERRARO ~ Railroad Commissioner: Signed [facility]10-07-2025 Radiology Diagnostic study note [facility] Imaging Services [address] [place] [address] Chest PA and Lateral MR#: [id number] Acct: [id number] Name: BEATRIS QUINN Rep #: [id number] : 1950 M 74 From: Chidi Powell MD PCP: ROWENA FERRARO Status: REG ER Study:Chest PA and Lateral Date of Exam: 06/01/25 Exam# [id number] Ordering Dr: Deshaun Pike DO PROCEDURE: CHEST [...] No new consolidation. 2. Granulomas. Reading Location: [id number] CC: Dr. Vivi Pike DO; ROWENA FERRARO ~ Railroad Commissioner: Signed [facility]08-22-2025 NoteHNO ID: [id number] Author: TIGRE RESTREPO MD Service: ? Author [...] 5 mg daily (given by [facility] physician) No weight loss, no fever [...] tablet by mouth two times a day. plluhtvkmjg-avojjrkkh-zvvlbgbq (TRELEGY ELLIPTA) 100-62.5-25 mcg inhalation powder Inhale [...] tree-in-bud distribution which are most likely infectious/inflammatory. Railroad Commissioner: NESTOR Transcribe Date/Time: Oct 20 2024 1:36P Dictated by : MICAELA FONTAINE MD This examination was interpreted and the report reviewed and electronically signed by: MICAELA FONTAINE MD on Oct 20 2024 2:05PM EST IMPRESSION: 1. Lung nodules - ICD9: 793.19, ICD10: R91.8 (primary diagnosis) Ct chest 02/06/2024: Lymphadenopathy up to 14 mm Multiple nodules, some are calcified, others have neoplastic appearance, largest 58a83uk lateral segment RML. Cavitary type lesion EDWIN [id number] Multiple large opacities, one of them is [...] size compared to 06 (more content not included)...[facility]08-22-2025 History of Present illness Narrative* Tigre [...] 5 mg daily (given by [facility] physician) No weight loss, no fever [...] tablet by mouth two times a day. cffzsfselgf-ehhdxymgp-fefeyglq (TRELEGY ELLIPTA) 100-62.5-25 mcg inhalation powder Inhale [...] tree-in-bud distribution which are most likely infectious/inflammatory. Railroad Commissioner: NESTOR Transcribe Date/Time: Oct 20 2024 1:36P Dictated by : MICAELA FONTAINE MDThis examination was interpreted and the report reviewed and electronically signed by: MICAELA FONTAINE MD on Oct 20 2024 2:05PM EST IMPRESSION: 1. Lung nodules - ICD9: 793.19, ICD10: R91.8 (primary diagnosis) Ct chest 02/06/2024: Lymphadenopathy up to 14 mm Multiple nodules, some are calcified, others have neoplastic appearance, largest 67m15fq lateral segment RML. Cavitary type lesion EDWIN [id number] Multiple large opacities, one of them is [...] ago Tigre Restrepo MD, MATT Staff, Respiratory [facility] [1] Social History Tobacco Use Smoking status: Former Current packs/day: 0.00 Average packs/day: 0.5 packs/day for 36.0 years (18.0 ttl pk-yrs) Types: Cigarettes Start date: 10/24/1969 Quit date: 10/24/2005 Years since quittin.4 Smokeless tobacco: Never Substance Use Topics Alcohol use: Yes Drug use: No [facility] History of Present illness Narrative* Alina [...] PATIENT PRESENTS WITH AN IMPLANTABLE OR ATTACHED MAINTENANCE OF WAY CLERK: No RADIOLOGY DEPARTMENT: CT; Exam(s) Completed: Chest PERIPHERAL IV DATA: Not applicable SIGNED BY: RT Noah(Jennifer) April 16, 2025 8:56 AM documented in [facility]08-22-2025 NoteHNO ID: [id number] Author: ALINA GOOD RT(Jennifer) Service: Radiology Author [...] PATIENT PRESENTS WITH AN IMPLANTABLE OR ATTACHED MAINTENANCE OF WAY CLERK: No RADIOLOGY DEPARTMENT: CT; Exam(s) Completed: Chest PERIPHERAL IV DATA: Not applicable SIGNED BY: RT Noah(Jennifer) April 16, 2025 8:56 [id number] Discharge summary Author Anirudhkelly Thompson [facility] Note Date/Time December 02, 2024 3:55 pm [facility] Medical Records Department [address] [place] [address] Discharge Summary 12/02/24 1532 MR#: [id number] Acct: [id number] Name: BEATRIS QUINN Rep #:[id number] : 1950 73 From: Anirudhkelly Thompson DO PCP: VIVEK Yañez Status:AD IN Location: [place] [id number] Providers Date of Admission: 12/01/24 Primary [...] 95.2 H, Lymph % (Auto) 2.2 L, Miner % (Auto) 2.0, Eos % (Auto) 0.0, [...] Anirudh Thompson Primary Care Provider: Michelle Ferraro RUBBER MOLDER Discharge Orders/Prescriptions Prescriptions: New prednisone 20 mg [...] Self Care Charges/Coding Visit Charges Inpatient E&M: 64523 Disch Hosp >30min 12/02/24 1536 <Electronically signed [...] Thompson DO> Cosigner Signature (if applicable): cc: RUBBER MOLDER-Deshaun Ferraro; Dr. Anirudh Thompson DO ~* Signed [facility] Work Phone: 1(591) 132-790504-09-2025 Consult note [facility] Medical Records Department [address] [place] [address] Counseling Note - Pharmacy 12/02/24 1632 MR#: [id number] Acct: [id number] Name: BEATRIS QUINN Rep #:[id number] : 1950 73 From: Niurka Quinn PCP: VIVEK Yañez Status:AD M IN Y Location: [place] [address] Pharmacy [facility] has performed discharge [...] Signature (if applicable): Date CC: ~ Signed [facility]04-09-2025 Discharge summary [facility] Medical Records Department [address] [place] [address] Discharge Summary 12/02/24 1532 MR#: [id number] Acct: [id number] Name: BEATRIS QUINN Eligio Rep #:[id number] : 1950 73 From: Anirudh Thompson DO PCP: VIVEK Yañez Status:AD M IN Location: [facility] [id number]- [id number] Providers Date of Admission: 12/01/24 Primary [...] 95.2 H, Lymph % (Auto) 2.2 L, Miner % (Auto) 2.0, Eos % (Auto) 0.0, [...] Anirudh Thompson Primary Care Provider: Michelle Ferraro RUBBER MOLDER Discharge Orders/Prescriptions Prescriptions: New prednisone 20 mg [...] Self Care Charges/Coding Visit Charges Inpatient E&M: 05183 Disch Hosp >30min 12/02/24 1536 Cosigner Signature (if applicable): CC: VIVKE Ferraro; Dr. Anirudh Thompson DO~ Signed ADDENDUM by Dr. Anirudh Thompson DO on 12/02/24 at 1555 Addendum Oxygen testing reviewed and patient is ambulatory in home and in the community and requires home oxygen with portability. 12/02/24 1555 Cosigner Signature (if applicable): cc: VIVEK Ferraro; Dr. Anirudh Thompson DO ~* Signed [facility]04-09-2025 [facility] Medical Records Department [address] [place] [address] Discharge Summary 12/02/24 1532 MR#: [id number] Acct: [id number] Name: BEATRIS QUINN Rep #: [id number] : 1950 73 From: Anirudh Thompson DO PCP: VIVEK Yañez Status:ADM IN Location: [facility] [id number] Providers Date of Admission: 12/01/24 Primary Care [...] 95.2 H, Lymph % (Auto) 2.2 L, Miner % (Auto) 2.0, Eos % (Auto) 0.0, [...] Sputum, Expectorated/Coughed Gram St (more content not included)...[facility]04-09-2025 Progress note Author Anirudh Thompson [facility] Note Date/Time December 02, 2024 1:20 pm [facility] Medical Records Department [address] [place] [address] Progress Note - Hospitalist 12/02/24814 MR#: [id number] Acct: [id number] Name: BEATRIS QUINN Rep #:[id number] : 1950 73 From: Anirudh Thompson DO PCP: CHUCKY YañezC Status:AD M IN Location: [place] [id number]- [id number] Reason for Visit Reason for Visit: [...] 95.2 H, Lymph % (Auto) 2.2 L, Miner % (Auto) 2.0, Eos % (Auto) 0.0, [...] full code. Charges/Coding Visit Charges Inpatient E&M: 40868 Subs Hosp L2 12/02/24 1320 <Electronically signed by Anirudh Thompson DO> Cosigner Signature (if applicable): CC: ~ Signed [facility] Work Phone: 1(877) 189-807204-09-2025 Progress note [facility] Medical Records Department [address] [place] [address] Progress Note - Hospitalist 12/02/24 0815 MR#: [id number] Acct: [id number] Name: BEATRIS QUINN Rep #:[id number] : 1950 73 From: Anirudh Thompson DO PCP: Michelle Ferraro NP-C Status:AD IN Location: [place] [address] Reason for Visit Reason for Visit: Diagnoses [...] 95.2 H, Lymph % (Auto) 2.2 L, Miner % (Auto) 2.0, Eos % (Auto) 0.0, [...] full code. Charges/Coding Visit Charges Inpatient E&M: 32348 Subs Hosp L2 12/02/24 1320 Cosigner Signature (if applicable): CC: ~ Signed [facility]04-08-2025 History and physical note Author Anirudh Thompson [facility] Note Date/Time December 01, 2024 8:47 am [facility] Medical Records Department [address] [place] [address] H&P Exam - Hospitalist 12/01/24 0831 MR#: [id number] Acct: [id number] Name: BEATRIS QUINN Rep #:[id number] : 1950 73 From: Anirudh Thompson DO [...] better with rest. CP does not radiate. [facility] Medical History Aortic stenosis Elevated coronary artery calcium score Urinary retention Heart murmur Anxiety On home oxygen therapy Acute hypoxemic respiratory failure Pneumonia COPD (chronic obstructive pulmonary disease) [place] (hard of hearing) Hypertension Home Medications ?Medication [...] (400 unit) capsule 268 mg PO DAILY [employer] 12/17/23 Unknown History alprazolam 0.25 mg tablet [...] 91.1 H, Lymph % (Auto) 3.0 L, Miner % (Auto) 5.1, Eos % (Auto) 0.0, [...] process. Recommend follow-up until resolution. Reading Location: [id number] Assessment & Plan Assessment/Plan (1) COPD exacerbation: [...] left main. Charges/Coding Visit Charges Inpatient E&M: 89487 Init Hosp L3 12/01/24 0847 <Electronically signed by Anirudh Thompson DO> Cosigner Signature (if applicable): CC: Dr. Anirudh Thompson DO; Dr. Jr Ryan DO~ Signed [facility] Work Phone: 1(760) 379-689804-08-2025 Evaluation note* Diagnosis Onset Date Resolution Status Admit Date Hypoxia acute December 01 8:16am Pneumonia acute December 01 8:16am Stable angina acute December 01, 2024 8:16am COPD exacerbation chronic December 012024 8:16am Hypertension chronic December 01, 2 025 8:16am [facility] Work Phone: 1(879) 660-139604-08-2025 Discharge summary Author Todd Valdovinos [facility] Note Date/Time December 01, 2024 8:00 am [facility] Medical Records Department [address] [place] [address] Emergency Department Summary 12/01/24 MR#: [id number] Acct: [id number] Name: BEATRIS QUINN Rep #:[id number] : 1950 73 From: Todd Valdovinos DO [...] influenza which was roughly 1 year ago [facility] Medical History Aortic stenosis Elevated coronary artery calcium score Urinary retention Heart murmur Anxiety On home oxygen therapy Acute hypoxemic respiratory failure Pneumonia COPD (chronic obstructive pulmonary disease) [place] (hard of hearing) Hypertension Home Medications ?Medication [...] (400 unit) capsule 268 mg PO DAILY [employer] 12/17/23 Unknown History alprazolam 0.25 mg tablet [...] 91.1 H Lymph % (Auto) 3.0 L Miner % (Auto) 5.1 Eos % (Auto) 0.0 [...] process. Recommend follow-up until resolution. Reading Location: [id number] Chest x-ray as interpreted by the emergency [...] DO [Primary Care Provider] - Print Language: Algerian Disposition Disposition: [facility] What to do if you have Problems For any increased pain, shortness of breath, bleeding, nausea or vomiting, chestpain, or any unexpected problems, contact your Primary Care Provider. Call [facility] ([phone]) or report to the closest Emergency Room. Call 911 if necessary. 12/01/24 08 <Electronically signed by Todd Valdovinos DO> Cosigner Signature (if applicable): CC: Dr. Jr Ryan DO ~ Signed [facility] Work Phone: 1(428) 548-276704-08-2025 History and physical note [facility] Medical Records Department [address] [place] [address] H&P Exam - Hospitalist 12/01/24830 MR#: [id number] Acct: [id number] Name: BEATRIS QUINN Rep #:[id number] : 1950 73 From: Anirudh Thompson DO [...] better with rest. CP does not radiate. [facility] Medical History Aortic stenosis Elevated coronary artery calcium score Urinary retention Heart murmur Anxiety On home oxygen therapy Acute hypoxemic respiratory failure Pneumonia COPD (chronic obstructive pulmonary disease) [place] (hard of hearing) Hypertension Home Medications ?Medication [...] (400 unit) capsule 268 mg PO DAILY [employer] [facility] 12/17/23 Unknown History alprazolam 0.25 mg [...] Std Deviation 45.2 H, RDW Coeff of Shreri 14.1, Plt Count 313, MPV 9.3, Immature Gran % (Auto) 0.600, Neut % (Auto) 91.1 H, Lymph % (Auto) 3.0 L, Miner % (Auto) 5.1, Eos % (Auto) 0.0, [...] process. Recommend follow-up until resolution. Reading Location: [id number] Assessment & Plan Assessment/Plan (1) COPD exacerbation: [...] left main. Charges/Coding Visit Charges Inpatient E&M: 29508 Init Hosp L3 12/01/24 0847 Cosigner Signature (if applicable): CC: Dr. Anirudh Thompson DO; Dr. Jr Ryan DO~ Signed [facility]04-08-2025 Discharge summary [facility] Medical Records Department [address] [place] [address] Emergency Department Summary 12/01/24 MR#: [id number] Acct: [id number] Name: BEATRIS QUINN Rep #:[id number] : 1950 73 From: Todd Valdovinos DO [...] influenza which was roughly 1 year ago [facility] Medical History Aortic stenosis Elevated coronary artery calcium score Urinary retention Heart murmur Anxiety On home oxygen therapy Acute hypoxemic respiratory failure Pneumonia COPD (chronic obstructive pulmonary disease) [place] (hard of hearing) Hypertension Home Medications ?Medication [...] 91.1 H Lymph % (Auto) 3.0 L Miner % (Auto) 5.1 Eos % (Auto) 0.0 [...] process. Recommend follow-up until resolution. Reading Location: [facility] Chest x-ray as interpreted by the [...] DO [Primary Care Provider] - Print Language: Algerian Disposition Disposition: [facility] What to do if you have Problems For any increased pain, shortness of breath, bleeding, nausea or vomiting, chestpain, or any unexpected problems, contact your Primary Care Provider. Call [facility] ([phone]) or report tothe closest Emergency Room. Call 911 if necessary. 12/01/24 0800 Cosigner Signature (if applicable): CC: Dr. Jr Ryan DO ~ Signed [facility]04-08-2025 Radiology Diagnostic study note [facility] Imaging Services [address] [place] [address] Chest PA and Lateral MR#: [id number] Acct: [id number] Name: BEATRIS QUNIN Rep #: [id number] : 1950 M 73 From: Eloy Parra MD PCP: Dr. Jr Ryan DO Status: REG ER Study:Chest PA and Lateral Date of Exam: 12/01/24 Exam# [id number] Ordering Dr: Aziza Valdovinos DO PROCEDURE: CHEST [...] process. Recommend follow-up until resolution. Reading Location: [id number] CC: Dr. Jr Ryan DO; Todd Valdovinos DO ~ Railroad Commissioner: Signed [facility]03-03-2025 Telephone encounter Note* Telephone Encounter - Tyrell FaustinoCandelaria Parvin - 10/26/2024 4:21 PM EST Patient's called pulmonary asking for assistance in delivering a message to Dr. Restrepo's office since they have been unable to contact and speak with the office. Per caller: Patient is not interested in following up with infectious disease. Patient can be reached by calling [phone]. [facility]03-03-2025 Miscellaneous Notes* Telephone Encounter - Candelaria Singh - 10/26/2024 4:21 PM EST Patient's called pulmonary asking for assistance in delivering a message to Dr. Restrepo's office since they have been unable to contact and speak with the office. Per caller: Patient is not interested in following up with infectious disease. Patient can be reached by calling [phone]. documented in this encounterSamaritan North [facility] Center02-24-2025 Telephone encounter Note * Telephone Encounter [...] is done in 6 months Thank you [facility]02-24-2025 Miscellaneous Notes* Telephone Encounter - Tigre [...] 6 months Thank you documented in this encounterSamaritan North Health Center02-21-2025 NoteHNO ID: [id number] Author: TAMELA ANDERSON MD Service: ? Author [...] are calcified, others have neoplastic appearance, largest 95c79ol lateral segment RML. Cavitary type lesion EDWIN [id number] 03/15/25- Dr. Restrepo pulm OPD consult 04/21/24- [...] appointment / consult Tamela Anderson [facility] History of Present illness Narrative* Tamela Anderson MD - 10/16/2024 5:42 PM EST Infectious Disease E-Consult Response In response to your eConsult Infectious Disease request for Beatris Quinn regarding: aspergillosis. History of present illness provided through requesting provider documentation and current treatment plan was reviewed. 02/06/2024: CT Lymphadenopathy up to 14 mm Multiple nodules, some are calcified, others have neoplastic appearance, largest 30l55ag lateral segment RML. Cavitary type lesion EDWIN [id number] 03/15/25- Dr. Restrepo pulm OPD consult 04/21/24- [...] MD October 16, 2024 documented in this encounterSamaritan [facility] Health Center02-21-2025 Note* Addendum Note - Tigre Restrepo MD - 10/16/2024 3:14 PM ESTAddended by: TIGRE RESTREPO on: 10/16/2024 03:14 PM Modules accepted: Orders [facility]02-21-2025 Miscellaneous Notes* Addendum Note - Tigre Restrepo MD - 10/16/2024 3:14 PM ESTAddended by: TIGRE RESTREPO on: 10/16/2024 03:14 PM Modules accepted: Orders documented in this encounterSamaritan North Health Center02-21-2025 NoteHNO ID: [id number] Author: TIGRE RESTREPO MD Service: ? Author [...] report showed stable lung opacities Works in [employer] From [facility] Social History Tobacco Use Smoking status: [...] Take by mouth at bedtime as needed. roeijoxkybf-ckafxyfbd-bckvmizl (TRELEGY ELLIPTA) 100-62.5-25 mcg inhalation powder Inhale [...] technique due to different penetrations the films. Railroad Commissioner: NESTOR Transcribe Date/Time: Mar 24 2024 1:44P [...] be communicated with the ordering provider via [employer] staff message or phone message by Imaging Support Services within 2 business days of report finalization. --END OF FINDING-- Railroad Commissioner: NESTOR Transcribe Date/Time: Mar 11 2024 8:08A Dictated by : NICOLAS BAJWA MD This examination was interpreted and the report reviewed and electronically signed by: NICOLAS BAJWA MD on Mar 11 2024 8:17AM EST XR CHEST 2V FRONTAL/LAT Result Date: 12/15/2023 IMPRE (more content not included)...[facility]02-21-2025 History of Present illness Narrative* Tigre [...] report showed stable lung opacities Works in [employer] From [facility] Social History Tobacco Use Smoking status: [...] Take by mouth at bedtime as needed. zdqfdgliiva-cvwalztsd-ejmxwbqv (TRELEGY ELLIPTA) 100-62.5-25 mcg inhalation powder Inhale [...] in technique due todifferent penetrations the films. 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 Transcribe Date/Time: Mar 24 2024 1:44P [...] be communicated with the ordering provider via [employer] staff message or phone message by [facility] within 2 business days of report finalization. --END OF FINDING-- 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 Transcribe Date/Time: Mar 11 2024 8:08A Dictated by : NICOLAS BAJWA MD This examination was interpreted and the report reviewed and electronically signed by: NICOLAS BAJWA MD on Mar 11 2024 8:17AM EST XR CHEST 2V FRONTAL/LAT Result Date: 12/15/2023 IMPRESSION: No acute radiographic abnormality. Railroad Commissioner: [facility] Transcribe Date/Time: Dec 15 2023 [...] with aspiration. 3. No enlarging lymph nodes. Railroad Commissioner: [facility] Transcribe Date/Time: May 15 2024 [...] are calcified, others have neoplastic appearance, largest 80c13by lateral segment RML. Cavitary type lesion EDWIN [id number] Multiple large opacities, one of them is [...] Continue Trelegy Albuterol as needed hfa/nebulizer - [id number] 3. Chest pain on breathing - ICD9: 786.52, ICD10: R07.1 R/o PE Trip by bus to [place] 01/2024 4. Cavitary lesion of lung - ICD9: 518.89, ICD10: J98.4 Serum aspergillus galactomannan and coccidio mildly above normal Will consult ID 5. Allergy to environmental factors - ICD9: V15.09, ICD10: Z91.09 Possible asthma on top of copd 6. Ex-smoker - ICD9: V15.82, ICD10: Z87.891 Quit 15 yrs ago Tigre Restrepo MD, MATT Staff, [facility] documented in this encounterSamaritan [facility] Center02-21-2025 History of Present illness Narrative* Alina [...] PATIENT PRESENTS WITH AN IMPLANTABLE OR ATTACHED MAINTENANCE OF WAY CLERK: No RADIOLOGY DEPARTMENT: CT; Exam(s) Completed: Chest PERIPHERAL IV DATA: Not applicable SIGNED BY: RT Noah(Jennifer) October 16, 2024 7:09 AM documented in this encounterSamaritan North Health Center02-21-2025 NoteHNO ID: [id number] Author: ALINA GOOD RT(R) Service: Radiology Author [...] PATIENT PRESENTS WITH AN IMPLANTABLE OR ATTACHED MAINTENANCE OF WAY CLERK: No RADIOLOGY DEPARTMENT: CT; Exam(s) Completed: Chest PERIPHERAL IV DATA: Not applicable SIGNED BY: RT Noah(R) October 16, 2024 7:09 AMMercy Health [facility] [id number] Telephone encounter Note* Telephone Encounter - Veronica Sherman - 10/09/2024 11:58 AM EST First attempt at contacting patient, uzair VM to schedule [facility]02-14-2025 Miscellaneous Notes* Telephone Encounter - Veronica [...] his next office visit on 10/16 in [place]. Patient states he will arrive one hour early for X-ray, CT scan or other testing. Patient has been calling the appointment line but has been on hold for too long. Please reach out to patient and confirm testing will be scheduled and advise of arrival time. Patient phone: [phone]. documented in this encounterSamaritan [facility] Health Center02-14-2025 Telephone encounter Note * Telephone Encounter - Tigre Restrepo MD - 10/09/2024 10:38 AM EST Please schedule him for a ct chest prior to his next appointment - if needed you can move the appointment until the ct chest is done. He does not need a cxr just a ct chest [facility] Work Phone: 1(265) 113-396202-14-2025 Telephone encounter Note* Telephone Encounter - Candelaria Singh - 10/09/2024 10:11 AM EST Patient called COPD coordinator asking to message Dr. Restrepo requesting to add on testing at his next office visit on 10/16 in [place]. Patient states he will arrive one hour early for X-ray, CT scan or other testing. Patient has been calling the appointment line but has been on hold for too long. Please reach out to patient and confirm testing will be scheduled and advise of arrival time. Patient phone: [phone]. [facility]11-06-2024 Telephone encounter Note* Telephone Encounter - Kacey Che LPN - 07/01/2024 3:59 PM EST Attempted to call pt, no answer but message was left on for him to return our call. When Pt calls, please see message below from Dr. Restrepo. [facility]11-06-2024 Miscellaneous Notes* Telephone Encounter - Kacey [...] Nothing in Epic. Thanks documented in this encounterSamaritan North Health Center11-06-2024 Telephone encounter Note * Telephone Encounter - Tigre Restrepo MD - 07/01/2024 3:38 PM EST Please check if he has seen the infectious disease specialist. Nothing in Epic. Thanks [facility] Work Phone: 1(585) 968-391110-15-2024 Telephone encounter Note* Telephone Encounter - Caio Patel RN - 06/09/2024 4:50 PM EDT Called pt left VM with results via phone. Sent ECHO results via mail. [facility]10-15-2024 Miscellaneous Notes* Telephone Encounter - Caio [...] back with any questions. documented in this encounterSamaritan North Health Center10-15-2024 Telephone encounter Note * Telephone Encounter [...] Advised to call back with any questions. [facility]10-07-2024 Telephone encounter Note* Telephone Encounter - Nicole Lemus MA - 06/01/2024 9:59 AM EDT Patient is requesting this prescription be faxed [facility]ERR[facility] at [facility] at . Pharmacy phone number is . JOSE ALBERTO with Dr. Restrepo 03/24/2024 No future appt. [facility]10-07-2024 Miscellaneous Notes* Telephone Encounter - Nicole Lemus MA - 06/01/2024 9:59 AM EDT Patient is requesting this prescription be faxed KERRY at [facility] at . Pharmacy phone number is . JOSE ALBERTO with Dr. Restrepo 03/24/2024 No future appt. documented in this encounterSamaritan [facility] Health Center10-03-2024 Telephone encounter Note * Telephone Encounter - Glendy Dial RN - 05/28/2024 1:32 PM EDT Left message for patient to return call. [facility]10-03-2024 Miscellaneous Notes* Telephone Encounter - Glendy [...] infectious disease Thanks nh documented in this encounterSamaritan North Health Center10-03-2024 Note* Addendum Note - Tigre Restrepo MD - 05/28/2024 1:29 PM EDTAddended by: TIGRE RESTREPO on: 05/28/2024 01:29 PM Modules accepted: Orders [facility]10-03-2024 Telephone encounter Note* Telephone Encounter - [...] please schedule him with infectious disease Thanks az [facility]10-03-2024 Telephone encounter Note* Telephone Encounter - Sarina Benitez RN - 05/28/2024 8:48 AM EDT Called pt, no answer. Advised pt to call back to discuss recommednations. [facility]10-03-2024 Miscellaneous Notes* Telephone Encounter - Sarina [...] artery. He recommended this be done at [facility]. documented in this encounterSamaritan [facility] Center10-02-2024 Telephone encounter Note * Telephone Encounter - Janie Baxter RN - 05/27/2024 4:07 PM EDT Called patient at 4:06, advised he would get a CB at 4P. Left a message that this nurse will CB at 7P tonight. [facility]10-02-2024 Miscellaneous Notes* Telephone Encounter - Janie [...] am still waiting for the culture. Thanks az documented in this encounterSamaritan [facility] Center10-02-2024 Telephone encounter Note * Telephone Encounter - Janie Baxter RN - 05/27/2024 12:11 PM EDT Left a message per patient request that he will get a call back at the number listed t give him themessage. [facility]10-02-2024 Telephone encounter Note* Telephone Encounter - Tigre Restrepo MD - 05/27/2024 11:39 AM EDT Please inform the patient that there was no cancer seen on lung biopsy. I am still waiting for the culture. Thanks az [facility]10-02-2024 Telephone encounter Note* Telephone Encounter - Claire Turner MD - 05/27/2024 11:07 AM EDT I attempted to reach Beatris via telephone however there was no answer. Voicemail message left for him to return our call. Dr. Ayers was able to review his cath images and recommended coronary ultrasound of the left main artery. He recommended this be done at [facility]. [facility] Work Phone: 1(807) 538-633410-01-2024 Telephone encounter Note* Telephone Encounter - Janie Baxter RN - 05/26/2024 1:57 PM EDT Message to patient, advised he will get a CB with the culture results as soon as they are available. [facility]10-01-2024 Miscellaneous Notes* Telephone Encounter - Janie [...] request that Dr. Restrepo call script into [facility]. He states he had his biopsy today and was told that Dr. Restrepo would be sending in a script to address his lung infection. Patient unsure of medication and requested a message to be sent to Dr. Restrepo's office. Please contact patient with any questions: [phone] (neighbor's phone) documented in this encounterSamaritan [facility] Center10-01-2024 Telephone encounter Note * Telephone Encounter - Janie Baxter RN - 05/26/2024 1:32 PM EDT Unable to reach patient at work, will have to try other number later. [facility]10-01-2024 Telephone encounter Note* Telephone Encounter - Janie Baxter RN - 05/26/2024 11:58 AM EDT Patient at lunch, need to CB after 12:30. [facility]10-01-2024 Telephone encounter Note* Telephone Encounter - [...] weeks. I will keep him updated. Thanks' [facility]10-01-2024 Telephone encounter Note* Telephone Encounter - Janie Baxter RN - 05/26/2024 9:58 AM EDT Patient left a message on at 8:51a about the message below. Please advise. [facility]09-30-2024 Telephone encounter Note* Telephone Encounter - Candelaria Singh - 05/25/2024 3:22 PM EDT Patient called to request that Dr. Restrepo call script into [facility]. He states he had his biopsy today and was told that Dr. Restrepo would be sending in a script to address his lung infection. Patient unsure of medication and requested a message to be sent to Dr. Restrepo's office. Please contact patient with any questions: [phone] (neighbor's phone) T [facility]09-27-2024 History of Present illness Narrative* Claire Turner MD - 05/22/2024 8:00 AM EDT Images from the original note were not included. [facility] SECTION OF REGIONAL CARDIOLOGY OUTPATIENT VISIT DATE 05/22/2024 OUTPATIENT VISIT TYPE NEW PRIMARY CARE PHYSICIAN: Jr Ryan [address] [address] HISTORY OF PRESENT ILLNESS: Mr. Quinn is a 73 year old male, hx of hypertension, asthma, COPD, presents for cardiovascular assessment. He denies chest pain, palpitations, orthopnea, PND, leg swelling, lightheadedness, syncope. He underwent hernia surgery in January/February in [place]. Around that time, he underwent a coronary CTA. CD images or results are not available at the time of this visit. He reported that based on the CT findings, he was advised to have a cardiac catheterization which was performed at [place]. Per cath report dated 03/02/2024: 'Nonobstructive coronary [...] gradient 13.5, mild to moderate , mild VA. He presents for second opinion re: heart [...] with aspiration. 3. No enlarging lymph nodes. Railroad Commissioner: NESTOR Transcribe Date/Time: May 15 2024 4:44P [...] Call him with results Claire Turner MD, [facility] documented in this encounterSamaritan [facility] Center09-24-2024 History of Present illness Narrative* Chapin Crow-MD Dwight - 05/19/2024 4:15 PM EDT It is the responsibility of the presenting physician to facilitate any and all recommendations discussed during Thoracic Tumor Board if they are to be implemented into the patients plan of care. Pending Staff Approval [facility] DISCIPLINARY THORACIC TUMOR BOARD: May 19, 2024 Presenting Physician(s): MD Beatris Lomas Eligio Quinn 73 year old [id number] Staff in Attendance: Staff representing all Thoracic [...] Signed by: Mehreen Crow documented in this encounterSamaritan [facility] Health Center09-20-2024 Instructions* Patient Instructions* Mehreen Crow MD - 05/15/2024 10:37 AM EDT You will need an updated CAT scan today. If the lung spots are better, I will call you and let you know. But, if I don't call, that means you are coming for the biopsy as scheduled. For bronchoscopy procedure: You will receive a call from our application support to let you know the time and [...] and until procedure is done Please call [phone] for additional information prior to bronchoscopy if you have questions You will need someone to bring you to this procedure and stay for the entire duration of procedure as you cannot drive home after procedure documented in this encounterSamaritan [facility] Health Center09-20-2024 History of Present illness Narrative* Nicole [...] PATIENT PRESENTS WITH AN IMPLANTABLE OR ATTACHED MAINTENANCE OF WAY CLERK: No RADIOLOGY DEPARTMENT: CT; Exam(s) Completed: Chest PERIPHERAL IV DATA: Not applicable SIGNED BY: RT Noel(R) May 15, 2024 12:09 PM documented in this encounterSamaritan North Health Center09-20-2024 History of Present illness Narrative* Mehreen Crow MD - 05/15/2024 10:00 AM EDT Images from the original note were not included. INTERVENTIONAL PULMONARY MEDICINE CONSULTATION PLEASE DO NOT REMOVE FROM THE CHART OR MODIFY PRINTED COPY Patient Name: Beatris Quinn PRIMARY CARE PHYSICIAN: Jr Ryan DO REFERRING PHYSICIAN: Tigre Restrepo MD (please cc for bronch result) Interpreting services utilized via (physician practice consultant service modality: physician practice consultant not needed for appointment) Consultation requested by [...] Sometimes some pain in the chest. Seen counter professional, may have some artery blockage or narrowing, [...] heartburn or reflux symptoms GENITOURINARY: Not reviewed SLUNK SKIN CURER: NA MUSCULOSKELETAL: Negative for joint pain or [...] test. He is still independently working in [employer]. Overall preserved ECOG. 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 It is also explained [...] 15, 2024 12:39 PM documented in this encounterSamaritan [facility] Center09-13-2024 Telephone encounter Note * Telephone Encounter - Kiara Berry HUC - 05/08/2024 3:33 PM EDT Contacted patient to schedule Bronchoscopy. No answer,left message. [facility]09-13-2024 Miscellaneous Notes* Telephone Encounter - Kiara Berry HUC - 05/08/2024 3:33 PM EDT Contacted patient to schedule Bronchoscopy. No answer,left message. documented in this encounterSamaritan [facility] Health Center09-10-2024 History of Present illness Narrative* Sahara [...] on anticoagulants/anti-plt therapy? No Nursing Considerations: (ie: jail, TB, respiratory isolation, etc.) none Diagnosis/Reason for [...] 03/11/2024 Neut% 92.8 12/14/2023 Lymph% 2.1 12/14/2023 Miner% 4.6 12/14/2023 Eosin% 0.0 12/14/2023 Baso% 0.1 12/14/2023 Abs Neut (ANC) 17.42 12/14/2023 Abs Miner 0.86 12/14/2023 Abs Eosin <0.03 12/14/2023 Abs [...] - 1.22 mg/dL Final documented in this encounterSamaritan North Health Center09-04-2024 Telephone encounter Note * Telephone Encounter - Mitzi Quinteros - 04/29/2024 3:56 PM EDT Contacted patient and left a voicemail to let him know that Dr. Restrepo sent the clearance to [facility] team- they will contact him to schedule a biopsy. [facility]09-04-2024 Miscellaneous Notes* Telephone Encounter - Mitzi Quinteros - 04/29/2024 3:56 PM EDT Contacted patient and left a voicemail to let him know that Dr. Restrepo sent the clearance to [facility] team- they will contact him to schedule a biopsy. documented in this encounterSamaritan North Health Center09-04-2024 Telephone encounter Note * Telephone Encounter - Emily Salazar - 04/29/2024 3:19 PM EDT Patient called and would like to get scheduled for a biopsy. Patient mentioned Dr. Restrepo recommended for patient to have biopsy done. [facility]09-04-2024 Miscellaneous Notes* Telephone Encounter - Emily Salazar - 04/29/2024 3:19 PM EDT Patient called and would like to get scheduled for a biopsy. Patient mentioned Dr. Restrepo recommended for patient to have biopsy done. documented in this encounterSamaritan [facility] Center09-04-2024 Telephone encounter Note * Telephone Encounter - Sandra Shelton LPN - 04/29/2024 8:18 AM EDT Letter faxed to [phone]. Transmission successful, paperwork in fax drawer. [facility]09-04-2024 Miscellaneous Notes* Telephone Encounter - Sandra Shelton LPN - 04/29/2024 8:18 AM EDT Letter faxed to [phone]. Transmission successful, paperwork in fax drawer. * [...] Asking for this to be faxed to [phone]. documented in this encounterSamaritan North Health Center09-04-2024 Telephone encounter Note * Telephone Encounter - Sandra Shelton LPN - 04/29/2024 8:14 AM EDT Images from the original note were not included. Tigre Restrepo MD You15 hours ago (4:18 PM) I am putting a new version in [facility]09-03-2024 Telephone encounter Note* Telephone Encounter - Sandra Shelton LPN - 04/28/2024 4:02 PM EDT Spoke with [facility] - they state that clearance letter for them to complete must state that name of the physician doing the procedure, the name of the procedure, and the date that it will be done. Asking for this to be faxed to [phone]. [facility]08-27-2024 Telephone encounter Note* Telephone Encounter - Tigre Restrepo MD - 04/21/2024 4:16 PM EDT He has an appointment with cardiology next month at [place] Please can you please try to get [...] they paged him for me Thank you [facility] Work Phone: 1(210) 301-572308-27-2024 Miscellaneous Notes* Telephone Encounter - Tigre Restrepo MD - 04/21/2024 4:16 PM EDT He has an appointment with cardiology next month at [place] Please can you please try to get [...] for me Thank you documented in this encounterSamaritan North Health Center08-27-2024 History of Present illness Narrative* Sahara [...] had hernia surgery 3 weeks ago in [place] as well as stem cell treatment for his COPD. At that time he states he had some type of heart study, he believes a cardiac MRI where they told him he should follow-up with a counter professional due to valvular issues andblockage. He had been went home to [facility] for he had a cardiac catheterization and an echo. In [place] he was told everything was normal. He [...] Saturday and Saturday M documented in this encounterSamaritan North Health Center08-27-2024 Telephone encounter Note * Telephone Encounter - Tigre Restrepo MD - 04/21/2024 11:10 AM EDT Called patient and discussed PET SCAN FINDINGS. POSSIBILITY OF LUNG CANCER PATIENT WILLING TO HAVE BIOPSY SOON POSSIBLE Sent a request to [facility] IR team for evaluation [facility]08-27-2024 Miscellaneous Notes* Telephone Encounter - Tigre Restrepo MD - 04/21/2024 11:10 AM EDT Called patient and discussed PET SCAN FINDINGS. POSSIBILITY OF LUNG CANCER PATIENT WILLING TO HAVE BIOPSY SOON POSSIBLE Sent a request to [facility] IR team for evaluation documented in this encounterSamaritan North Health Center08-27-2024 History of Present illness Narrative* Sahara [...] PATIENT PRESENTS WITH AN IMPLANTABLE OR ATTACHED MAINTENANCE OF WAY CLERK: No CREATININE: Creatinine Date Value Ref Range [...] radiation safety can be found usingthis link: [email or web address] SIGNATURE: SHARON Bledsoe) PATIENT NAME: Beatris Quinn DATE: April 21, 2024 TIME: 7:15 AM PAGER/CONTACT #: documented in this encounterSamaritan North Health Center08-27-2024 NoteHNO ID: [id number] Author: SAHARA CHE RT (R) Service: Nuclear [...] PATIENT PRESENTS WITH AN IMPLANTABLE OR ATTACHED MAINTENANCE OF WAY CLERK: No CREATININE: Creatinine Date Value Ref Range [...] DIAGNOSTIC CT PERFORMED: No IV SITE: Ambulatory: NE only - direct IV injection in the Right antecubital site POST EXAM PIV STATUS: Discontinued PROCEDURE TYPE: NM INJECT: PET/CT BODY SCAN. 6.8 mCi F18 FDG. No other medications given.. ADMINISTRATION TIME: 0657 PATIENT DISCHARGED TO: Ambulatory patient, left NE department area. A Diagnostic radioactive procedure has taken place, with no further precautions necessary other than routine body substance precautions. More information regarding radiation safety can be found using this link: [email or web address] 20Diagnostic%20Nuclear%20Medicine%20Procedures.[email or web address] SIGNATURE: RT Rakan(R) PATIENT NAME: Beatris Quinn DATE: April 21, 2024 TIME: 7:15 AM [id number] Telephone encounter Note * Telephone Encounter - Cristal Llanos - 04/10/2024 4:20 PM EDT Patient called back and stated that the order needed to be faxed to the PET scan company at [phone]. Order faxed. [facility]08-16-2024 Miscellaneous Notes* Telephone Encounter - Cristal Llanos - 04/10/2024 4:20 PM EDT Patient called back and stated that the order needed to be faxed to the PET scan company at [phone]. Order faxed. * Telephone Encounter - Rosaura Addison - 04/10/2024 2:28 PM EDT PT returned call to the office. For financial reasons, PT is opting to have PET scan at [facility]. Faxed order to [phone]. * Telephone Encounter - Tigre Restrepo MD - 04/10/2024 1:45 PM EDT I called the patient and left him a voice message regarding abnormal ct chest. We need to proceed with PET scan documented [facility] encounter[facility] Telephone encounter Note * Telephone Encounter - Rosaura Addison - 04/10/2024 2:28 PM EDT PT returned call to the office. For financial reasons, PT is opting to have PET scan at [facility]. Faxed order to [phone]. [facility]08-16-2024 Telephone encounter Note* Telephone Encounter - Tigre Restrepo MD - 04/10/2024 1:45 PM EDT I called the patient and left him a voice message regarding abnormal ct chest. We need to proceed with PET scan [facility] Work Phone: 1(966) 841-356008-02-2024 Telephone encounter Note* Telephone Encounter - Tigre Restrepo MD - 03/27/2024 3:[address] chest with no PE Multiple lung nodules, largest is a EDWIN mass 3 cm concerning for lung cancer Plan for pet scan then biopsy I called the patient but he did not brick picker Please schedule him for a virtual visit kerry or a phone encounter to discuss the ct chest results I also put him for a pet scan kerry Thanks nh [facility]08-02-2024 Miscellaneous Notes* Telephone Encounter - Tigre Restrepo MD - 03/27/2024 3:[address] chest with no PE Multiple lung nodules, largest is a EDWIN mass 3 cm concerning for lung cancer Plan for pet scan then biopsy I called the patient but he did not brick picker Please schedule him for a virtual visit kerry or a phone encounter to discuss the ct chest results I also put him for a pet scan kerry Thanks az documented in this encounter[facility] History of Present illness Narrative* Symone [...] PATIENT PRESENTS WITH AN IMPLANTABLE OR ATTACHED MAINTENANCE OF WAY CLERK: No ALLERGIES: Reviewed and unchanged CONTRAST ALLERGY: [...] CT; Exam(s) Completed: PE Study SIGNATURE: RT Klaina(R) PATIENT NAME: Beatris Quinn DATE: March 27, 2024 TIME: 2:01 PM documented in [facility] encounter[facility] Telephone encounter Note * Telephone Encounter - Sandra Shelton LPN - 03/25/2024 11:[address] scan report from [facility] in [facility] received from dr restrepo and sent to scanning. [facility]07-31-2024 Miscellaneous Notes* Telephone Encounter - Sandra Shelton LPN - 03/25/2024 11:[address] scan report from [facility] received from dr restrepo and sent to scanning. 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 So he rescheduled till Saturday here for [place] 03/27/24 @ 9:40am.. per his choice of date [facility]07-31-2024 Miscellaneous Notes* Telephone Encounter - Roz Farias PSS - 03/25/2024 9:05 AM EDT Pt was here for a CT scan today 03/25/24 in [place] @ 8:40am, pt ate at 5:30am and was not suppose to eat or drink for 4 hours before.. so I told the pt to wait till 9:30am and we will do him.. 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 So he rescheduled till Saturday here for [place] 03/27/24 @ 9:40am.. per his choice of date documented in this encounterSam[facility]07[facility]24 History of Present illness Narrative* Tigre [...] environmental allergies, mild CAD, recent trip to [place] by bus, hernia surgery while in [place] 01/2024, found tohave lung nodules,here for evaluation. He feels fine with no complaints Sometimes he feels SOB on exertion No cough no sputum production, no fever. Ct chest 02/06/2024: Lymphadenopathy up to 14 mm Multiple nodules, some are calcified, others have neoplastic appearance, largest [id number] lateral segment RML. Cavitary type lesion EDWIN [id number] Had lost weight since last year The [...] No significant exposure Silica: No significant exposure Duval: No significant exposure Mold: No significant exposure [...] 424 QTC Calculation (Bazett) 405 Calculated P [place] 108 Calculated R [place] 77 Calculated T [place] 71 Impression SINUS BRADYCARDIA OTHERWISE NORMAL ECG No results found for this or any previous visit (from the past 50842 hour(s)). XR CHEST 1V FRONTAL PORT Result [...] be communicated with the ordering provider via [place] staff message or phone message by Imaging Support Services within 2 business days of report finalization. --END OF FINDING-- Railroad Commissioner: NESTOR Transcribe Date/Time: Mar 11 2024 8:08A Dictated by : NICOLAS BAJWA MD This examination was interpreted and the report reviewed and electronically signed by: NICOLAS BAJWA MD on Mar 11 2024 8:17AM EST XR CHEST 2V FRONTAL/LAT Result Date: 12/15/2023 IMPRESSION: No acute radiographic abnormality. Railroad Commissioner: NESTOR Transcribe Date/Time: Dec 15 2023 1:22A [...] are calcified, others have neoplastic appearance, largest 49u36ey lateral segment RML. Cavitary type lesion EDWIN [id number] Multiple large opacities, one of them is cavitated Course of antibiotic Repeat ct chest - CT CHEST WO IVCON - CREATININE BLD 2. Centrilobular emphysema (HCC) - ICD9: 492.8, ICD10: J43.2 Continue Trelegy Albuterol as needed hfa/nebulizer - [id number] 3. Chest pain on breathing - ICD9: 786.52, ICD10: R07.1 R/o PE Trip by bus to [place] 01/2024 - CT CHEST W IVCON PE [...] which included preparing to see the patient, [id number]-oi-[id number] patient care, completing clinical documentation, obtaining and/or reviewing separately obtained history, performing a medically appropriate examination, ordering medications, tests, or procedures, and independently interpreting results (not separately reported). Tigre Restrepo MD, MATT Staff, Respiratory Treadwell [facility] CC: Jr Ryan, DO Fleming documented in this encounterSam[facility]07-[facility]-2024 History of Present illness Narrative* Sandy [...] PATIENT PRESENTS WITH AN IMPLANTABLE OR ATTACHED MAINTENANCE OF WAY CLERK: No RADIOLOGY DEPARTMENT: General X-ray: Exam(s) Completed: Chest X-Ray PERIPHERAL IV DATA: Not applicable SIGNED BY: Kannan Lovell March 24, 2024 10:54 AM documented in this encounterSam[facility]07-[facility]24 History of Present illness Narrative* Garcia Muir RRT - 03/24/2024 10:39 AM EDT PULM FUNCTION: Provider: Tigre Restrepo MD Assisting Tech: Garcia Muir RRT Spirometry w/BD: 1 DLCO: 1 documented in this encounterSam[facility]07-[facility]-2024 Telephone encounter Note * Telephone Encounter - Lucía Rader - 03/04/2024 12:59 PM EDT Patient's son is calling to see if patient can be seen in COPD clinic as soon as possible. Requests callback. Johnson (Son) [facility]07-10-2024 Miscellaneous Notes* Telephone Encounter - Lucía Rader - 03/04/2024 12:59 PM EDT Patient's son is calling to see if patient can be seen in COPD clinic as soon as possible. Requests callback. Johnosn (Son) documented in this encounterSam[facility]04-26-2024 Discharge summary Author Fadi Lloyd [facility] December 20, 2023 1:58pm Note Date/Time December 20, 2023 1:5 3pm [facility] Medical Records Department [address] [place] [address] Discharge Summary 12/20/23 1351 MR#: [id number] Acct: [id number] Name: BEATRIS QUINN Rep #:[id number] : 1950 72 From: Fadi Willis PCP: Dr. Jr Ryan DO Status:ADM [facility] Prov[facility] Date of Admission: 12/17/23 Date of [...] weeks. Patient is states that he follows cupola man Dr. 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 He is on scheduled [...] mcg/actuation aerosol inhaler (ProAir HFA) 1 inh [id number] PRN shortness of breath or wheezing 12/17/23 alprazolam 0.25 mg tablet (Xanax) 0.25 mg PO QHS anxiety 12/17/23 garlic 1,000 mg capsule 1,000 mg PO DAILY general health 12/17/23 vitamin E 268 mg (400 unit) capsule 268 mg PO DAILY general health 12/17/23 dextromethorphan-guaifenesin 30 mg-600 mg tablet extended rybhofu42 hr (Mucinex DM) 2 tab PO BID [...] 12/18/23 15:05 RMA (Rec: 12/18/23 15:06 RMA [id number]) Nutrition Malnutrition Evidence of Malnutrition Exists Yes [...] Self Care Charges/Coding Visit Charges Inpatient E&M: 67157 Disch Hosp >30min 12/20/23 1358 <Electronically signed by Fadi Lloyd MD> Cosigner Signature (if applicable): CC: Dr. Jr Ryan DO; Dr. Fadi Llyod MD~ Signed [facility] Work Phone: 1(815) 318-439304-26-2024 Discharge summary Author Fadi Lloyd [facility] December 20, 2023 1:51pm Note Date/Time December 20, 2023 1:4 4pm [facility] Medical Records Department [address] [place] [address] Instructions for Home/Discharge Instructions 12/20/23 1110 MR#: [id number] Acct: [id number] Name: BEATRIS QUINN Rep #:[id number] : 1950 72 From: Fadi Willis PCP: [...] DO; Dr. Jr Ryan DO ~ Signed [facility] Work Phone: 1(102) 227-768504-25-2024 Progress note Author Fadi Lloyd [facility] December 19, 2023 2:54pm Note Date/Time December 19, 2023 7:3 3am [facility] Medical Records Department [address] [place] [address] Progress Note - Hospitalist 12/19/23 0731 MR#: [id number] Acct: [id number] Name: BEATRIS QUINN Rep #:[id number] : 1950 72 From: Fadi Willis PCP: Dr. Jr Ryan, DO Status:ADM IN Location: [facility] [id number] Reason for Visit Reason for Visit: Diagnoses [...] 12/18/23 15:05 RMA (Rec: 12/18/23 15:06 RMA [id number]) Nutrition Malnutrition Evidence of Malnutrition Exists Yes [...] 95.4 H, Lymph % (Auto) 1.9 L, Miner % (Auto) 2.0, Eos % (Auto) 0.0, [...] weeks. Patient is states that he follows cupola man Dr. 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 He is on scheduled [...] full code. Charges/Coding Visit Charges Inpatient E&M: 70640 Subs Hosp L2 12/19/23 2040 <Electronically signed by Fadi Lloyd MD> Cosigner Signature (if applicable): CC: ~ Signed [facility] Work Phone: 1(420) 618-339904-24-2024 Progress note Author Fadi Lloyd [facility] December 18, 2023 4:13pm Note Date/Time December 18, 2023 10: 24am [facility] Medical Records Department [address] [place] [address] Progress Note - Hospitalist 12/18/23 1021 MR#: [id number] Acct: [id number] Name: BEATRIS QUINN Rep #:[id number] : 1950 72 From: Fadi Willis PCP: Dr. Jr Ryan, DO Status:ADM IN Location: [facility] [id number] Reason for Visit Reason for Visit: Diagnoses [...] 85.9 H, Lymph % (Auto) 3.5 L, [place] % (Auto) 9.6, Eos % (Auto) 0.1, [...] Clarity Clear, Urine pH 6.5, Ur Specific [place] 1.010, Urine Protein 30 H, Urine Glucose [...] 95.4 H, Lymph % (Auto) 1.9 L, Miner % (Auto) 2.0, Eos % (Auto) 0.0, [...] Narrative Patient is states that he follows cupola man Dr. 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 He is on scheduled [...] 85.9 H, Lymph % (Auto) 3.5 L, Miner % (Auto) 9.6, Eos % (Auto) 0.1, [...] Clarity Clear, Urine pH 6.5, Ur Specific [place] 1.010, Urine Protein 30 H, Urine Glucose [...] 95.4 H, Lymph % (Auto) 1.9 L, Miner % (Auto) 2.0, Eos % (Auto) 0.0, [...] Calcium 9.2 Charges/Coding Visit Charges Inpatient E&M: 34773 Subs Hosp L2 12/18/23 1690 <Electronically signed by Fadi Lloyd MD> Cosigner Signature (if applicable): CC: ~ Signed [facility] Work Phone: 1(220) 496-851204-23-2024 History and physical note Author Anirudh Thompson [facility] December 17, 2023 3:30pm Note Date/Time December 17, 2023 3:3 0pm [facility] Medical Records Department [address] [place] [address] H&P Exam - Hospitalist 12/17/23 1524 MR#: [id number] Acct: [id number] Name: BEATRIS QUINN Rep #:[id number] : 1950 72 From: Anirudh Thompson DO PCP: Dr. Jr Ryan DO Status:ADM IN Location: [facility] [id number] HPI - General General Date of Service: [...] Patient received bronchodilators, methylprednisolone and ceftriaxone azithromycin. [facility] Medical History COPD (chronic obstructive pulmonary disease) [place] (hard of hearing) Hypertension Home Medications albuterol [...] 85.9 H, Lymph % (Auto) 3.5 L, Miner % (Auto) 9.6, Eos % (Auto) 0.1, [...] 14:46 EDT Reading Location ID and State: [facility] / MD , Service support , Assessment & Plan [...] full code. Charges/Coding Visit Charges Inpatient E&M: 56527 Init Hosp 12/17/23 1530 <Electronically signed by Anirudh Thompson DO> Cosigner Signature (if applicable): CC: Dr. Anirudh Thompson DO; Dr. Jr Ryan DO~ Signed [facility] Work Phone: 1(620) 110-124004-23-2024 Discharge summary Author Migel Iqbal [facility] December 17, 2023 3:16pm Note Date/Time December 17, 2023 2:2 1pm [facility] Medical Records Department [address] [place] [address] Emergency Department Summary 12/17/23 MR#: [id number] Acct: [id number] Name: BEATRIS QUINN Eligio Rep #:[id number] : 1950 72 From: Migel Chen PCP: [...] 12 pounds in the past couple weeks. [facility] Medical History COPD (chronic obstructive pulmonary disease) [place] (hard of hearing) Hypertension Home Medications albuterol [...] 85.9 H Lymph % (Auto) 3.5 L Miner % (Auto) 9.6 Eos % (Auto) 0.1 [...] exacerbation, Pneumonia Disposition Disposition: Acute Care [facility] What to do if you have Problems For any increased pain, shortness of breath, bleeding, nausea or vomiting, chestpain, or any unexpected problems, contact your Primary Care Provider. Call Doctors Registry ([phone]) or report to the closest Emergency Room. Call 911 if necessary. 12/17/23 1516 <Electronically signed by Migel Iqbal DO> Cosigner Signature (if applicable): CC: Dr. Jr Ryan DO ~ Signed [facility] Work Phone: 1(597) 965-725304-23-2024 Discharge summary Author Migel Iqbal [facility] December 17, 2023 3:16pm Note Date/Time December 17, 2023 2:2 1pm [facility] Medical Records Department [address] [facility] [place] [address] Emergency Department Summary 12/17/23 MR#: [id number] Acct: [id number] Name: BEATRIS QUINN Rep #:[id number] : 1950 72 From: Migel Chen PCP: [...] 12 pounds in the past couple weeks. [facility] Medical History COPD (chronic obstructive pulmonary disease) [place] (hard of hearing) Hypertension Home Medications albuterol [...] 85.9 H Lymph % (Auto) 3.5 L [place] % (Auto) 9.6 Eos % (Auto) 0.1 [...] exacerbation, Pneumonia Disposition Disposition: Acute Care [facility] What to do if you have Problems For any increased pain, shortness of breath, bleeding, nausea or vomiting, chestpain, or any unexpected problems, contact your Primary Care Provider. Call [facility] ([phone]) or report to the closest Emergency Room. Call 911 if necessary. 12/17/23 8252 <Electronically signed by Migel Iqbal DO> Cosigner Signature (if applicable): CC: Dr. Jr Ryan DO ~ Signed [facility] Work Phone: 1([phone]) 149-973003-05-2024 Hospital Discharge instructions Additional Instructions Follow-up with your cupola man in the next 3 to 5 days. Continue your albuterol. Start your steroid burst tomorrow as you have been given a loading dose in the emergency department today.[facility] Work Phone: 1(307) 354-565711-14-2023 Discharge summary Author Jaleel Saul [facility] July 09, 2023 9:25am Note Date/Time July 09, 2023 7:25am [facility] Medical Records Department [address] [place] [address] Emergency Department Summary 07/09/23 MR#: [id number] Acct: [id number] Name: BEATRIS QUINN Rep #:[id number] : 1950 72 From: Jaleel Saul MD [...] for him. He is immune to them. [facility] Medical History COPD (chronic obstructive pulmonary disease) [place] (hard of hearing) Hypertension Home Medications albuterol [...] Pulse Ox Oxygen Delivery Method MDM MDM [facility] Narrative Medical decision making narrative: Patient is [...] ectopy. No acute ST elevation or depression. VA interval, QRS duration and QTc normal Discharge [...] your Primary Care Provider. Call [facility] ([phone]) or report to the closest Emergency Room. Call 911 if necessary. 07/09/23 0239 <Electronically signed by Jaleel Saul MD> Cosigner Signature (if applicable): CC: Dr. Jr Ryan DO ~ Signed [facility] Work Phone: 1(760) 481-569712-29-2022 Note ORIGINAL EXAMINATION: ONE XRAY VIEW OF [...] Sign Date: 08/23/2022 11:49:31 AM Ordering Provider: [facility]12-29-2022 Note ORIGINAL EXAMINATION: ONE XRAY VIEW OF [...] Sign Date: 08/23/2022 11:49:31 AM Ordering Provider: [facility]10-26-2021 Hospital Discharge instructions Patient Education 06/20/2021 12:51:57 COVID-19 Prevent the Spread of COVID-19 If You Are Sick (01/12/2020)(CUSTOM) Prevent the Spread of COVID-19 If You Are Sick Accessible version: https://www.cdc.gov/coronavirus/2019-ncov/pa-nja-nth-sick/trcpg-xpkq-sqor.html If you are sick with COVID-19 or [...] Animals if you have questions about pets: https://www.cdc.gov/coronavirus/2019ncov/faq.html#ZFDFG38dekkpbj Monitor your symptoms. Common symptoms of COVID-19 [...] and need to call 911, notify the heater planer operator that you have or think you [...] clean your hands with an alcohol-based hand transport conductor that contains at least 60% alcohol. Clean your hands often. Wash your hands often with soap and water for at least 20 seconds. This is especially important after blowing your nose, coughing, or sneezing; going to the bathroom; and before eating or preparing food. Use hand transport conductor if soap and water are not available. Use an alcohol-based hand transport conductor with atleast 60% alcohol, covering all surfaces [...] and water or put them in the mine shifter. Clean all high-touch surfaces everyday. Clean and [...] or body fluids on them. Use household contract negotiator and disinfectants. Clean the area or item [...] 06/20/2021 11:19:11 With:RADHA STAHL III, MD Address: [address] [place] [address] [phone] When:2-4 days [facility] Consult note Author Lawrence Hernandez [facility] December 20, 2023 3:37pm Note Date/Time December 20, 2023 3:3 7pm [facility] Medical Records Department [address] [place], [place] [address] [address] Counseling Note - Pharmacy 12/20/23 1537 MR#: [id number] Acct: [id number] Name: BEATRIS QUINN Rep #:[id number] : 1950 72 From: Lawrence Hernandez PCP: Dr. Jr Ryan, DO Status:ADM IN Y Location: [facility] [id number] Med Reconciliation Pharmacy Service has performed discharge [...] mcg/actuation aerosol inhaler (ProAir HFA) 1 inh [id number] PRN shortness of breath or wheezing 12/17/23 alprazolam 0.25 mg tablet (Xanax) 0.25 mg PO QHS anxiety 12/17/23 garlic 1,000 mg capsule 1,000 mg PO DAILY general health 12/17/23 vitamin E 268 mg (400 unit) capsule 268 mg PO DAILY [facility] 12/17/23 dextromethorphan-guaifenesin 30 mg-600 mg tablet extended yqzfiyu52 hr (Mucinex DM) 2 tab PO BID [...] Signature (if applicable): Date CC: ~ Signed [facility] Work Phone: Consult note Author Niurka Quinn [facility] Note Date/Time December 02, 2024 4:33 pm [facility] Medical Records Department [address] [facility] [place] [address] Counseling Note - Pharmacy 12/02/24 1632 MR#: [id number] Acct: [id number] Name: BEATRIS QUINN Eligio Rep #:[id number] : 1950 73 From: Niurka Quinn PCP: VIVEK Yañez Status:AD M IN Y Location: [place] [id number] Pharmacy Service has performed discharge [...] Signature (if applicable): Date CC: ~ Signed [facility] Work Phone: Consult note Author Niurka Quinn [facility] Note Date/Time June 02, 2025 12 :30pm [facility] Medical Records Department [address] [place] [address] Counseling Note - Pharmacy 06/02/25 1228 MR#: [id number] Acct: [id number] Name: BEATRIS QUINN Rep #:[id number] : 1950 74 From: Niurka Quinn PCP: VIVEK Yañez Status:AD M IN Location: [facility] [id number] Pharmacy [facility] Counseling Pharmacy Service has performed [...] Signature (if applicable): Date CC: ~ Signed [facility] Work Phone: Discharge summary Author Todd Valdovinos [facility] Note Date/Time December 01, 2024 8:00 am [facility] Medical Records Department [address] [place] [address] Emergency Department Summary 12/01/24 MR#: [id number] Acct: [id number] Name: BEATRIS QUINN Rep #:[id number] : 1950 73 From: Todd Valdovinos DO [...] influenza which was roughly 1 year ago [facility] Medical History Aortic stenosis Elevated coronary artery calcium score Urinary retention Heart murmur Anxiety On home oxygen therapy Acute hypoxemic respiratory failure Pneumonia COPD (chronic obstructive pulmonary disease) [place] (hard of hearing) Hypertension Home Medications ?Medication [...] 91.1 H Lymph % (Auto) 3.0 L Miner % (Auto) 5.1 Eos % (Auto) 0.0 [...] process. Recommend follow-up until resolution. Reading Location: [facility] Chest x-ray as interpreted by the [...] DO [Primary Care Provider] - Print Language: Algerian Disposition Disposition: Acute Care [facility] What to do if you have Problems For any increased pain, shortness of breath, bleeding, nausea or vomiting, chestpain, or any unexpected problems, contact your Primary Care Provider. Call [facility] ([phone]) or report to the closest Emergency Room. Call 911 if necessary. 12/01/24 0800 <Electronically signed by Todd Valdovinos DO> Cosigner Signature (if applicable): CC: Dr. Jr Ryan DO ~ Signed [facility] Work Phone: Discharge summary Author Vivi [facility] Note Date/Time June 01, 2025 12 :23pm [facility] Medical Records Department [address] [place] [address] Emergency Department Summary 06/01/25 MR#: [id number] Acct: [id number] Name: BEATRIS QUINN Rep #:[id number] : 1950 74 From: Vivi Chen PCP: [...] Recent immobilization, Recent surgery or Recent travel [facility] Medical History Aortic stenosis Elevated coronary artery calcium score Urinary retention Heart murmur Anxiety On home oxygen therapy Acute hypoxemic respiratory failure Pneumonia COPD (chronic obstructive pulmonary disease) [place] (hard of hearing) Hypertension Home Medications ?Medication [...] She would like to [facility] to ensure he does not have a pulmonary emboli. This is obtained and negative for any PE. Does show bilateral pulmonary nodule superimposed on emphysematous changes. Patient be admitted to [facility] floor. Lab Data Attestation: I reviewed the [...] 71.4 H Lymph % (Auto) 15.9 L Miner % (Auto) 9.4 Eos % (Auto) 2.2 [...] No new consolidation. 2. Granulomas. Reading Location: [id number] Chest CTA 06/01/25 11:12 IMPRESSION: No evidence of pulmonary embolism. Bilateral pulmonary nodules superimposed on emphysematous changes. Reading Location: [id number] Rhythm Strip Rhythm Strip: Sinus Rhythm Rate: [...] disease, Hypoxia Disposition Disposition: Acute Care Hospital [facility] What to do if you have Problems For any increased pain, shortness of breath, bleeding, nausea or vomiting, chestpain, or any unexpected problems, contact your Primary Care Provider. Call [facility] ([phone]) or report to the closest Emergency Room. Call 911 if necessary. 06/01/25 1223 <Electronically signed by Vivi Pike DO> Cosigner Signature (if applicable): CC: ROWENA FERRARO ~ Signed [facility] Work Phone: Discharge summary Author Karen Le [facility] Note Date/Time June 02, 2025 12 :27pm [facility] Medical Records Department [address] [place] [address] Discharge Summary 06/02/25 1153 MR#: [id number] Acct: [id number] Name: BEATRIS QUINN Rep #:[id number] : 1950 74 From: Karen Le DO PCP: VIVEK Yañez Status:AD M IN Location: [facility] [id number] Providers Date of Admission: 06/01/25 Date of [...] who presented to the emergency department at [facility] on 06/01/2025 with chief complaint of [...] then verify that he actually follows in [place] and now as they were not pleased [...] 92.5 H, Lymph % (Auto) 4.5 L, Miner % (Auto) 2.5, Eos % (Auto) 0.0, [...] Karen Le Primary Care Provider: Michelle Ferraro RUBBER MOLDER Instructions Additional Instructions / Restrictions: 1. Please follow up with your cupola man in [place] in Aug as scheduled Discharge Orders/Prescriptions Prescriptions: [...] Follow Up: ROWENA FERRARO [Other] Michelle Ferraro RUBBER MOLDER, RUBBER MOLDER-C [Primary Care Provider, Medical] - Within 1 Week Disposition Disposition (needs filled in before D/C Order can be placed): Home, Self Care Charges/Coding Visit Charges Inpatient E&M: 36714 Disch Hosp >30min 06/02/25 1227 <Electronically signed by Karen Le DO> Cosigner Signature (if applicable): CC: CHUCKYC Michelle Ferraro; Dr. Karen Le DO~ Signed [facility] Work Phone: Evaluation + Plan note No data available for this section [facility] Evaluation noteNo assessment information available [facility] Work Phone: Evaluation note* Diagnosis Onset Date Resolution Status Acute hypoxemic respiratory failure acute Influenza A acute Pneumonia acute COPD exacerbation chronic COPD with acute exacerbation chronic [facility] Work Phone: Evaluation note* Diagnosis Onset Date Resolution Status Acute hypoxemic respiratory failure acute Pneumonia acute COPD exacerbation chronic [facility] Work Phone: Evaluation note* Diagnosis SOB (shortness of breath) Shortness of breath documented in this encounter [facility] note* Diagnosis SOB (shortness of breath) Shortness of breath documented in this encounter [facility] note* Diagnosis Lung nodules- Primary Other nonspecific abnormal finding of lung field Centrilobular emphysema (HCC) Other emphysema Chest pain on breathing Painful respiration Cavitary lesion of lung Other diseases of lung, not elsewhere classified Allergy to environmental factors Other allergy, other than to medicinal agents Ex-smoker Personal history of tobacco use, presenting hazards to health documented in this encounter [facility] note* Diagnosis Chest pain on breathing Painful respiration documented in this encounter [facility] note* Diagnosis Chest pain, unspecified type- Primary documented in this encounter [facility] note* Diagnosis Lung nodules- Primary Other nonspecific abnormal finding of lung field documented in this encounter [facility] note* Diagnosis Chest pain, unspecified type [facility] Diagnosis Lung nodules- Primary Other nonspecific abnormal finding of lung field [facility] Diagnosis Lung nodules Other nonspecific abnormal finding of lung field [facility]* Diagnosis Pulmonary emphysema, unspecified emphysema type (HCC) [facility]* Diagnosis Multiple nodules of lung- Primary Other nonspecific abnormal finding of lung field Bronchiolar disease Other diseases of trachea and bronchus [facility]* Diagnosis Multiple pulmonary nodules- Primary Other nonspecific abnormal finding of lung field Former smoker Personal history of tobacco use, presenting hazards to health Stage 4 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 ([facility]) Bronchiolar disease Other diseases of trachea and bronchus [facility]* Diagnosis Multiple nodules of lung Other nonspecific abnormal finding of lung field Bronchiolar disease Other diseases of trachea and bronchus documented [facility] this encounter [facility]* Diagnosis Coronary artery disease due to lipid rich plaque- Primary Murmur Undiagnosed cardiac murmurs Bronchiolar disease Other diseases of trachea and bronchus [facility] Diagnosis Fungal pneumonia- Primary Other and unspecified mycoses documented in this encounter [facility]* Diagnosis Murmur Undiagnosed cardiac murmurs documented [facility] this encounter [facility]* Diagnosis Lung nodules- Primary Other nonspecific abnormal finding of lung field Lung mass Swelling, mass, or lump in chest Invasive pulmonary aspergillosis (HCC) Allergic bronchopulmonary aspergillosis Former smoker Personal history of tobacco use, presenting hazards to health Centrilobular emphysema (HCC) Other emphysema Stage 4 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 ([facility]) Cavitary lesion of lung Other diseases of lung, not elsewhere classified Chest pain on breathing Painful respiration [facility] Diagnosis Aspergillus (HCC)- Primary Aspergillosis [facility] Diagnosis Pneumonia of both lungs due to Pseudomonas species, unspecified part of lung ([facility]) documented in this encounter [facility]* Diagnosis Onset Date Resolution Status Admit Date Hypoxia acute December 01 8:16am Pneumonia acute December 01 8:16am Stable angina acute December 01, 2024 8:16am COPD exacerbation chronic December 012024 8:16am Hypertension chronic December 01 025 8:16am [facility] Work Phone: Evaluation note* Diagnosis Lung [...] to medicinal agents [facility] Diagnosis Lung mass Swelling, mass, or lump in chest [facility] Author Anirudh Thompson [facility] December 17, 2023 3:30pm Note Date/Time December 17, 2023 3:3 0pm [facility] Medical Records Department [address] [place] [address] H&P Exam - Hospitalist 12/17/23 1524 MR#: [id number] Acct: [id number] Name: BEATRIS QUINN Rep #:[id number] : 1950 72 From: Anirudh Thompson DO PCP: Dr. Jr Ryan DO Status:ADM IN Location: [facility] [id number] HPI - General General Date of Service: [...] Patient received bronchodilators, methylprednisolone and ceftriaxone azithromycin. [facility] Medical History COPD (chronic obstructive pulmonary disease) [place] (hard of hearing) Hypertension Home Medications albuterol [...] 85.9 H, Lymph % (Auto) 3.5 L, Miner % (Auto) 9.6, Eos % (Auto) 0.1, [...] full code. Charges/Coding Visit Charges Inpatient E&M: 21350 Init Hosp L3 12/17/23 1530 <Electronically signed by Anirudh Thompson DO> Cosigner Signature (if applicable): CC: Dr. Anirudh Thompson DO; Dr. Jr Ryan DO~ Signed [facility] Work Phone: History and physical note Author Anirudh Thompson [facility] Note Date/Time December 01, 2024 8:47 am [facility] Medical Records Department [address] [facility] [place] [address] H&P Exam - Hospitalist 12/01/24 0831 MR#: [id number] Acct: [id number] Name: BEATRIS QUINN Rep #:[id number] : 1950 73 From: Anirudh Thompson DO [...] better with rest. CP does not radiate. [facility] Medical History Aortic stenosis Elevated coronary artery calcium score Urinary retention Heart murmur Anxiety On home oxygen therapy Acute hypoxemic respiratory failure Pneumonia COPD (chronic obstructive pulmonary disease) [place] (hard of hearing) Hypertension Home Medications ?Medication [...] (400 unit) capsule 268 mg PO DAILY [employer] 12/17/23 Unknown History alprazolam 0.25 mg tablet [...] 91.1 H, Lymph % (Auto) 3.0 L, Miner % (Auto) 5.1, Eos % (Auto) 0.0, [...] process. Recommend follow-up until resolution. Reading Location: [id number] Assessment & Plan Assessment/Plan (1) COPD exacerbation: [...] left main. Charges/Coding Visit Charges Inpatient E&M: 87768 Init Hosp L3 12/01/24 0847 <Electronically signed by Anirudh Thompson DO> Cosigner Signature (if applicable): CC: Dr. Anirudh Thompson DO; Dr. Jr Ryan DO~ Signed [facility] Work Phone: Hospital Discharge instructions No data available for this section [facility] Discharge instructions Additional Instructions Prednisone 40 mg a day for 1 week. Follow-up with your primary care physician or see a lung specialist a cupola man Dr. Shorty Marrero. Use inhaler as needed and if you have a nebulizer at home. You have influenza A and it caused an exacerbation of your underlying COPD. This should progressively get better.[facility] Work Phone: Hospital Discharge instructionsAdditional Instructions 1. Please follow up with your cupola man in [place] in Aug as scheduled Date of Discharge: 06/02/25[facility] Work Phone: [facility] for referral (narrative)* Diagnostic Procedure Only (Urgent) - New Request Specialty Diagnoses / Procedures Referred By Contac t Referred To Contact MOLECULAR & FUNCTIONAL IMAGING Diagnoses Lung nodules Procedures NM PET/CT SKULL-THIGH INITIAL PET IMAGING CT ATTENUATION SKULL BASE MID-THIGH Tigre Restrepo MD [address] [place] [address] Molecular & Functional Imaging [address] [place] [address] Referral ID Status Reason Start Date Expiration Date Visits Requested Visits Authorized [id number] New Request Auto-Generat ed Referral 03/27/2024 04/26/2025 1 1 [facility] for referral (narrative)* Diagnostic Procedure Only (Urgent) - Closed Specialty Diagnoses / Procedures Referred By [facility] Referred To Contact MOLECULAR & FUNCTIONAL IMAGING Diagnoses Lung nodules Procedures NM PET/CT SKULL-THIGH INITIAL PET IMAGING CT ATTENUATION SKULL BASE MID-THIGH Tigre Restrepo MD [address] [place] [address] Molecular & Functional Imaging [address] [place] [address] Referral ID Status Reason Start Date Expiration Date V isits Requested Visits Authorized [id number] Closed Auto-Generate d Referral 04/21/2024 08/25/2024 1 1 [facility] for referral (narrative)* Outpatient Procedure (Routine) - Outside PCP Specialty Diagnoses / Procedures Referred By Contac t Referred To Contact [facility] Diagnoses Murmur Procedures ECHO ECHO TTHRC R-T 2D W/WOM-MODE COMPL SPEC&COLR D Claire Turner MD [address] [place] [address] [facility] [place] [address] [place] [address] Referral ID Status Reason Start Date Expiration Date Visits Requested Visits Authorized [id number] Outside PCP Auto-Generat ed Referral 05/22/2024 05/22/2025 1 1 [facility] for referral (narrative)* Outpatient Procedure (Routine) - Closed Specialty Diagnoses / Procedures Referred By Trav oglesby Referred To Contact [facility] Diagnoses Murmur Procedures ECHO ECHO TTHRC R-T 2D W/WOM-MODE COMPL SPEC&COLR D Claire Turner MD [address] [place] [address] [facility] [place] [address] [place] [address] Referral ID Status Reason Start Date Expiration Date V isits Requested Visits Authorized [id number] Closed Auto-Generate d Referral 06/05/2024 08/25/2024 1 1 [facility] for referral (narrative)No reason for referral information [facility] Work Phone: [facility] N[facility]* Diagnostic Procedure Only (Urgent) - Closed Specialty Diagnoses / Procedures Referred By Trav oglesby Referred To Contact MOLECULAR & FUNCTIONAL IMAGING Diagnoses Lung nodules Procedures NM PET/CT SKULL-THIGH INITIAL PET IMAGING CT ATTENUATION SKULL BASE MID-THIGH Tigre Restrepo MD [address] [place] [address] Molecular & Functional Imaging [address] [place] [address] Referral ID Status Reason Start Date Expiration Date V isits Requested Visits Authorized [id number] Closed Auto-Generate d Referral 04/21/2024 08/25/2024 1 1 [facility] for visit Narrative* Diagnostic Procedure Only (Routine) - Denied Specialty Diagnoses / Procedures Referred By Trav oglesby Referred To Contact Radiology / [facility]IO GEN [facility] Diagnoses Pulmonary emphysema, unspecified emphysema type (HCC) Pulmonary emphysema, unspecified emphysema type (HCC) [J43.9] Procedures RADIOLOGIC EXAM CHEST 2 VIEWS XR CHEST Tigre Restrepo MD [address] [place] [address] [facility] [address] [place] [address] Referral ID Status Reason Start Date Expiration Date V isits Requested Visits Authorized [id number] Denied Patient Cleared - [facility] 03/24/2024 06/22/2024 1 0 [facility] for visit Narrative* Outpatient Procedure (Routine) - Closed Specialty Diagnoses / Procedures Referred By Contac t Referred To Contact [facility] Diagnoses Murmur Procedures ECHO ECHO TTHRC R-T 2D W/WOM-MODE COMPL SPEC&COLR D Claire Turner MD [address] [place] [address] [facility] [place] [address] [place] [address] Referral ID Status Reason Start Date Expiration Date V isits Requested Visits Authorized [id number] Closed Auto-Generate d Referral 06/05/2024 08/25/2024 1 1 [facility] for visit Narrative* MRI/CT (Routine) - Closed Specialty Diagnoses / Procedures Referred By Contac t Referred To Contact CT IMAGING Diagnoses Pneumonia of both lungs due to Pseudomonas species, unspecified part of lung (HCC) Procedures CT CHEST WO IVCON DIAGNOSTIC COMPUTED TOMOGRAPHY THORAX W/O Tigre Alarcon MD [address] [place] [address] Phone: tel: fax: CT IMAGING [facility] Referral ID Status Reason Start Date Expiration Date V isits Requested Visits Authorized [id number] Closed Auto-Generate d Referral OON/Self Pay Override 10/16/2024 08/25/2025 1 1 [facility] for visit Narrative* MRI/CT (Routine) - Closed Specialty Diagnoses / Procedures Referred By Contac t Referred To Contact CT IMAGING Diagnoses Lung mass Procedures CT CHEST WO IVCON DIAGNOSTIC COMPUTED TOMOGRAPHY THORAX W/O Tigre Alarcon MD [address] [place] [address] Phone: tel: fax: [place] [address] Referral ID Status Reason Start Date Expiration Date V isits Requested Visits Authorized [id number] Closed Auto-Generate d Referral 04/16/2025 08/25/2025 1 1 [facility] Summary Purpose Family History No Family History Records FoundNo Family History Records FoundNo Family History Records FoundNo Family History Records FoundNo Family History Records FoundNo Family History Records Found Advance Directives No Advanced Directives Records Found Advance Directive Response Recorded Date/ Time Living Will No May 01 5:18am Power of Refrigerating Technician No May 01, 2021 5:18am Advance Directive Response Recorded Date/ Time Living Will No August 23 8:27pm Power of Refrigerating Technician No August 23, 2022 8:27pm Advance Directive Response Recorded Date/ Time Living Will No August 26 10:56am Power of Refrigerating Technician No August 26 10:56am Advance Directive Response Recorded Date/ Time Living Will No August 26 1:51pm Power of Refrigerating Technician No August 26 1:51pm Advance Directive Response Recorded Date/ Time Living Will No August 26 2:51pm Power of Refrigerating Technician No August 26 2:51pm Advance Directive Response Recorded Date/ Time Living Will Yes July 09 7:09am Power of Refrigerating Technician Yes July 09, 2023 7:09am Name of Medical Power of Refrigerating Technician July 09, 2023 7:09am Advance Directive Response Recorded Date/ Time Name of Medical Power of Refrigerating Technician July 09, 2023 7:09am Living Will No October 29, 2023 6:55am Power of Refrigerating Technician No October 28 6:55am Advance Directive Response Recorded Date/ Time Living Will No December 11, 2023 10:10am Power of Refrigerating Technician No December 10 10:10am Advance Directive Response Recorded Date/ Time Living Will No December 17, 2023 1:34pm Power of Refrigerating Technician No December 16 1:34pm Advance Directive Response Recorded Date/ Time Living Will No December 17, 2023 4:06pm Power of Refrigerating Technician No December 16 4:06pm Advance Directive Response Recorded Date/ Time Living Will Yes December 01, 2024 6:32am Do you have a Healthcare Power of Refrigerating Technician? Yes December 01, 2024 6:32am Name of Medical Power of Refrigerating Technician December 01, 2024 6:32am Advance Directives No March 02 9:01am Advance Directive Response Recorded Date/ Time Living Will Yes December 01, 2024 9:18am Do you have a Healthcare Power of Refrigerating Technician? Yes December 01, 2024 9:18am Name of Medical Power of Refrigerating Technician December 01, 2024 9:18am Advance Directives No March 02 9:01am Advance Directive Response Recorded Date/ Time Do you have a Healthcare Power of Refrigerating Technician? No June 01, 2025 7:51am Advance Directives No March 02 9:01am Advance Directive Response Recorded Date/ Time Do you have a Healthcare Power of Refrigerating Technician? No June 01, 2025 1:35pm Advance Directives [...] pneumonia Procedures CONSULT TO INFECTIOUS DISEASES OFFICE/OUTPATIENT [facility] 60 MINUTES Tigre Restrepo MD [address] [place] [address] Referral ID Status Reason Start Date Expiration Date Visits Requested Visits Authorized [id number] Authorized PCP Requested Referral 05/28/2024 05/28/2025 1 1 Specialty Diagnoses / Procedures Referred By Contac t Referred To Contact CT IMAGING Diagnoses Multiple nodules of lung Procedures CT CHEST WO IVCON DIAGNOSTIC COMPUTED TOMOGRAPHY THORAX W/O CNTRST Mehreen Crow MD [address] [place] [address] [facility] [place] [address] Referral ID Status Reason Start Date Expiration Date Visits Requested Visits Authorized [id number] Authorized Auto-Generat ed Referral 05/15/2024 08/25/2024 1 1 Specialty Diagnoses / Procedures Referred By Contac t Referred To Contact CT IMAGING Diagnoses Chest pain, unspecified type Procedures CT CHEST W IVCON PE DIAGNOSTIC COMPUTED TOMOGRAPHY THORAX W/CONTRAST Tigre Restrepo MD [address] [place] [address] [facility] [place] [address] Referral ID Status Reason Start Date Expiration Date V isits Requested Visits Authorized [id number] Closed Auto-Generate d Referral 03/26/2024 04/25/2025 1 1 Specialty Diagnoses / Procedures Referred By Contac t Referred To Contact CT IMAGING Diagnoses Chest pain on breathing Procedures CT CHEST W IVCON PE DIAGNOSTIC COMPUTED TOMOGRAPHY THORAX W/CONTRAST Tigre Restrepo MD [address] [place] [address] Ct Imaging [facility] Referral ID Status Reason Start Date Expiration Date Visits Requested Visits Authorized [id number] Pending Review Auto-Generat ed Referral 03/24/2024 04/23/2025 1 1 Specialty Diagnoses / Procedures Referred By Trav t Referred To Contact CT IMAGING Diagnoses Lung nodules Procedures CT CHEST WO IVCON DIAGNOSTIC COMPUTED TOMOGRAPHY THORAX W/O CNTRST Tigre Restrepo MD [address] [place] [address] [place] [address] Referral ID Status Reason Start Date Expiration Date Visits Requested Visits Authorized [id number] New Request Auto-Generat ed Referral 03/24/2024 04/23/2025 1 1 Additional Source Comments (unrecognized sect ion and content) No Status Records FoundNo Status Records FoundNo Status Records FoundNo Status Records FoundNo Status Records FoundNo Status Records Found INFORMATION SOURCE (unrecogn ized section and content) DATE CREATED AUTHOR 11/26/2020 [facility] DATE CREATED AUTHOR AUTHOR'S ORGANIZ ATION 09/11/2022 [facility] DATE CREATED AUTHOR AUTHOR'S ORGANIZ ATION 12/15/2023 [facility] DATE CREATED AUTHOR AUTHOR'S ORGANIZ ATION 04/18/2025 [facility] DATE CREATED AUTHOR AUTHOR'S ORGANIZ ATION 06/11/2025 [facility] DATE CREATED AUTHOR AUTHOR'S ORGANIZ ATION 06/24/2025 [facility] Goals (unrecognized section and content) Type Treatment Intervention Code Status: Full Code - Verified Goals may be documented in an alternate section Care Team (unrecognized sect ion and content) Care Team Personnel Name: RADHA STAHL III, MD Member Role: Primary Care Physician Address: Address: [address] [place] [phone]- [place] Name: JUAN CHESTER PA Position: ED 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 Member Role: ED PA Address: Address: [address] [place], [place] [address] [address]- Care Team Related Persons Name: SHAHBAZ QUINN Address: Home [address] [place] [address] [place] Care Teams (unrecognized sec tion and [...] MD Attending Provider, Emergency Pro vider Active Press Tender Long Goods Relationship Specialty [place] [address] [address] PCP - General Internal Medicine 11/17/21 Press Tender Long Goods Relationship Specialty [place] [address]UD[place] [address] [place] [address] PCP - General Internal Medicine 11/17/21 Press Tender Long Goods Relationship Specialty [place] [address] [address] PCP - General Internal Medicine 11/17/21 Press Tender Long Goods Relationship Specialty [place] [address] [address] PCP - General Internal Medicine 11/17/21 Press Tender Long Goods Relationship Specialty [place] [address] [address] PCP - General Internal Medicine 11/17/21 Press Tender Long Goods Relationship Specialty Start Date End Date Jr Ryan, [address] [address] PCP - General Internal Medicine 11/17/21 Press Tender Long Goods Relationship Specialty [place] [address] [address] PCP - General Internal Medicine 11/17/21 Press Tender Long Goods Relationship Specialty Start Date End [place] [address] [id number] PCP - General Internal Medicine 11/17/21 Press Tender Long Goods Relationship Specialty [place] [address] [place] [address] PCP - General Internal Medicine 11/17/21 Press Tender Long Goods Relationship Specialty [place] [address] [place] [id number] PCP - General Internal Medicine 11/17/21 Press Tender Long Goods Relationship Specialty [place] [address] [place] [address] PCP - General Internal Medicine 11/17/21 Press Tender Long Goods Relationship Specialty [place] [address] [place] [address] PCP - General Internal Medicine 11/17/21 Press Tender Long Goods Relationship Specialty [place] [address] [place] [address] [id number] PCP - General Internal Medicine 11/17/21 Press Tender Long Goods Relationship Specialty Start Date End Date Jr Ryan, [address] [place] [address] [id number] PCP - General Internal Medicine 11/17/21 Press Tender Long Goods Relationship Specialty [place] [address] [place] [address] [id number] PCP - General Internal Medicine 11/17/21 Press Tender Long Goods Relationship Specialty [place] [address] [address] PCP - General Internal Medicine 11/17/21 Press Tender Long Goods Relationship Specialty [place] [address] [address] PCP - General Internal Medicine 11/17/21 Press Tender Long Goods Relationship Specialty [place] [address] [address] PCP - General Internal Medicine 11/17/21 Press Tender Long Goods Relationship Specialty [place] [address] [address] PCP - General Internal Medicine 11/17/21 Team [...] Active Member Role Status Dates Michelle Ferraro RUBBER MOLDER, RUBBER MOLDER-C Primary Care Provider Activ e Team Status: Inactive Member Role Status Dates Dr. Todd aVldovinos , Emergency Provider Active Start: December 01, 2024 End: December 02, 2024 Dr. Anirudh Thompson , Admit Provider Active Star t: December 01, 2024 End: December 02, 2024 Dr. Anirudh Thompson DO Attending Provider Active Start: December 01, 2024 End: December 02, 2024 Michelle Ferraro RUBBER MOLDER, RUBBER MOLDER-C Primary Care Provider Activ e Start: December [...] Star t: December 02, 2024 Michelle Ferraro RUBBER MOLDER, RUBBER MOLDER-C Primary Care Provider Activ e Start: December 02, 2024 Team Status: Active Member Role Status Dates Dr. Todd Valdovinos DO Emergency Provider Active Start: December 02, 2024 Dr. Aniruhd Thompson DO Admit Provider Active Star t: December 02, 2024 Dr. Anirudh Thompson DO Other Provider Active Star t: December 02, 2024 Michelle Ferraro RUBBER MOLDER, RUBBER MOLDER-C Primary Care Provider Activ e Start: December 02, 2024 Dr. Eh Castellon MD Attending Provider Active S tart: December 02, 2024 Press Tender Long Goods Relationship Specialty [place] [address] [address] PCP - General Internal Medicine 11/17/21 Team Status: Active Member Role/Relationship Status Dates Michelle Ferraro RUBBER MOLDER, RUBBER MOLDER-C Primary care physician Acti ve Team Status: Active Member Role/Relationship Status Dates Dr. Vivi Pike DO Emergency Departm ent Physician Active Start: June 01, 2025 Michelle Ferraro RUBBER MOLDER, RUBBER MOLDER-C Primary care physician Active Start: May Dr. Karen Le , Admitting physician Active Start: June 01, 2025 Dr. Karen Le DO Attending physician Active Start: June 01, 2025 Team Status: Inactive Member Role/Relationship Status Dates Dr. Vivi Pike DO Emergency Departm ent Physician Active Start: June 01, 2025 End: June 02, 2025 Michelle Ferraro RUBBER MOLDER, RUBBER MOLDER-C Primary care physician Active Start: May End: [...] Active Start: June 02, 2025 Michelle Ferraro RUBBER MOLDER, RUBBER MOLDER-C Primary care physician Active Start: May Dr. [...] or prosecute any alcohol or drug abuse patient.[facility] CenterIn the event this information is protected by the Federal Confidentiality of Alcohol and Drug Abuse Patient Records regulations: The Federal rules restrict any use of the information to criminally investigate or prosecute any alcohol or drug abuse patient.[facility] CenterIn the event this information is protected by the Federal Confidentiality of Alcohol and Drug Abuse Patient Records regulations: The Federal rules restrict any use of the information to criminally investigate or prosecute any alcohol or drug abuse patient.[facility] CenterIn the event this information is protected by the Federal Confidentiality of Alcohol and Drug Abuse Patient Records regulations: The Federal rules restrict any use of the information to criminally investigate or prosecute any alcohol or drug abuse patient.[facility] CenterIn the event this information is protected by the Federal Confidentiality of Alcohol and Drug Abuse Patient Records regulations: The Federal rules restrict any use of the information to criminally investigate or prosecute any alcohol or drug abuse patient.[facility] CenterIn the event this information is protected by the Federal Confidentiality of Alcohol and Drug Abuse Patient Records regulations: The Federal rules restrict any use of the information to criminally investigate or prosecute any alcohol or drug abuse patient.[facility] CenterIn the event this information is protected by the Federal Confidentiality of Alcohol and Drug Abuse Patient Records regulations: The Federal rules restrict any use of the information to criminally investigate or prosecute any alcohol or drug abuse patient.[facility] CenterIn the event this information is protected by the Federal Confidentiality of Alcohol and Drug Abuse Patient Records regulations: The Federal rules restrict any use of the information to criminally investigate or prosecute any alcohol or drug abuse patient.[facility] CenterIn the event this information is protected by the Federal Confidentiality of Alcohol and Drug Abuse Patient Records regulations: The Federal rules restrict any use of the information to criminally investigate or prosecute any alcohol or drug abuse patient.[facility] CenterIn the event this information is protected by the Federal Confidentiality of Alcohol and Drug Abuse Patient Records regulations: The Federal rules restrict any use of the information to criminally investigate or prosecute any alcohol or drug abuse patient.[facility] CenterIn the event this information is protected by the Federal Confidentiality of Alcohol and Drug Abuse Patient Records regulations: The Federal rules restrict any use of the information to criminally investigate or prosecute any alcohol or drug abuse patient.[facility] CenterIn the event this information is protected by the Federal Confidentiality of Alcohol and Drug Abuse Patient Records regulations: The Federal rules restrict any use of the information to criminally investigate or prosecute any alcohol or drug abuse patient.[facility] CenterIn the event this information is protected by the Federal Confidentiality of Alcohol and Drug Abuse Patient Records regulations: The Federal rules restrict any use of the information to criminally investigate or prosecute any alcohol or drug abuse patient.[facility] CenterIn the event this information is protected by the Federal Confidentiality of Alcohol and Drug Abuse Patient Records regulations: The Federal rules restrict any use of the information to criminally investigate or prosecute any alcohol or drug abuse patient.[facility] CenterIn the event this information is protected by the Federal Confidentiality of Alcohol and Drug Abuse Patient Records regulations: The Federal rules restrict any use of the information to criminally investigate or prosecute any alcohol or drug abuse patient.[facility] CenterIn the event this information is protected by the Federal Confidentiality of Alcohol and Drug Abuse Patient Records regulations: The Federal rules restrict any use of the information to criminally investigate or prosecute any alcohol or drug abuse patient.[facility] CenterIn the event this information is protected by the Federal Confidentiality of Alcohol and Drug Abuse Patient Records regulations: The Federal rules restrict any use of the information to criminally investigate or prosecute any alcohol or drug abuse patient.[facility] CenterIn the event this information is protected by the Federal Confidentiality of Alcohol and Drug Abuse Patient Records regulations: The Federal rules restrict any use of the information to criminally investigate or prosecute any alcohol or drug abuse patient.[facility] CenterIn the event this information is protected by the Federal Confidentiality of Alcohol and Drug Abuse Patient Records regulations: The Federal rules restrict any use of the information to criminally investigate or prosecute any alcohol or drug abuse patient.[facility] CenterIn the event this information is protected by the Federal Confidentiality of Alcohol and Drug Abuse Patient Records regulations: The Federal rules restrict any use of the information to criminally investigate or prosecute any alcohol or drug abuse patient.[facility] CenterIn the event this information is protected by the Federal Confidentiality of Alcohol and Drug Abuse Patient Records regulations: The Federal rules restrict any use of the information to criminally investigate or prosecute any alcohol or drug abuse patient.[facility] CenterIn the event this information is protected by the Federal Confidentiality of Alcohol and Drug Abuse Patient Records regulations: The Federal rules restrict any use of the information to criminally investigate or prosecute any alcohol or drug abuse patient.[facility] CenterIn the event this information is protected by the Federal Confidentiality of Alcohol and Drug Abuse Patient Records regulations: The Federal rules restrict any use of the information to criminally investigate or prosecute any alcohol or drug abuse patient.[facility] CenterIn the event this information is protected by the Federal Confidentiality of Alcohol and Drug Abuse Patient Records regulations: The Federal rules restrict any use of the information to criminally investigate or prosecute any alcohol or drug abuse patient.[facility] CenterIn the event this information is protected by the Federal Confidentiality of Alcohol and Drug Abuse Patient Records regulations: The Federal rules restrict any use of the information to criminally investigate or prosecute any alcohol or drug abuse patient.[facility] CenterIn the event this information is protected by the Federal Confidentiality of Alcohol and Drug Abuse Patient Records regulations: The Federal rules restrict any use of the information to criminally investigate or prosecute any alcohol or drug abuse patient.[facility] CenterIn the event this information is protected by the Federal Confidentiality of Alcohol and Drug Abuse Patient Records regulations: The Federal rules restrict any use of the information to criminally investigate or prosecute any alcohol or drug abuse patient.[facility] CenterIn the event this information is protected by the Federal Confidentiality of Alcohol and Drug Abuse Patient Records regulations: The Federal rules restrict any use of the information to criminally investigate or prosecute any alcohol or drug abuse patient.[facility] CenterIn the event this information is protected by the Federal Confidentiality of Alcohol and Drug Abuse Patient Records regulations: The Federal rules restrict any use of the information to criminally investigate or prosecute any alcohol or drug abuse patient.[facility] CenterIn the event this information is protected by the Federal Confidentiality of Alcohol and Drug Abuse Patient Records regulations: The Federal rules restrict any use of the information to criminally investigate or prosecute any alcohol or drug abuse patient.[facility] CenterIn the event this information is protected by the Federal Confidentiality of Alcohol and Drug Abuse Patient Records regulations: The Federal rules restrict any use of the information to criminally investigate or prosecute any alcohol or drug abuse patient.[facility] CenterIn the event this information is protected by the Federal Confidentiality of Alcohol and Drug Abuse Patient Records regulations: The Federal rules restrict any use of the information to criminally investigate or prosecute any alcohol or drug abuse patient.[facility] CenterIn the event this information is protected by the Federal Confidentiality of Alcohol and Drug Abuse Patient Records regulations: The Federal rules restrict any use of the information to criminally investigate or prosecute any alcohol or drug abuse patient.[facility] CenterIn the event this information is protected by the Federal Confidentiality of Alcohol and Drug Abuse Patient Records regulations: The Federal rules restrict any use of the information to criminally investigate or prosecute any alcohol or drug abuse patient.[facility] CenterIn the event this information is protected by the Federal Confidentiality of Alcohol and Drug Abuse Patient Records regulations: The Federal rules restrict any use of the information to criminally investigate or prosecute any alcohol or drug abuse patient.[facility] CenterIn the event this information is protected by the Federal Confidentiality of Alcohol and Drug Abuse Patient Records regulations: The Federal rules restrict any use of the information to criminally investigate or prosecute any alcohol or drug abuse patient.[facility] CenterIn the event this information is protected by the Federal Confidentiality of Alcohol and Drug Abuse Patient Records regulations: The Federal rules restrict any use of the information to criminally investigate or prosecute any alcohol or drug abuse patient.[facility] CenterIn the event this information is protected by the Federal Confidentiality of Alcohol and Drug Abuse Patient Records regulations: The Federal rules restrict any use of the information to criminally investigate or prosecute any alcohol or drug abuse patient.[facility] CenterIn the event this information is protected by the Federal Confidentiality of Alcohol and Drug Abuse Patient Records regulations: The Federal rules restrict any use of the information to criminally investigate or prosecute any alcohol or drug abuse patient.[facility] CenterIn the event this information is protected by the Federal Confidentiality of Alcohol and Drug Abuse Patient Records regulations: The Federal rules restrict any use of the information to criminally investigate or prosecute any alcohol or drug abuse patient.[facility] CenterIn the event this information is protected by the Federal Confidentiality of Alcohol and Drug Abuse Patient Records regulations: The Federal rules restrict any use of the information to criminally investigate or prosecute any alcohol or drug abuse patient.[facility] CenterIn the event this information is protected by the Federal Confidentiality of Alcohol and Drug Abuse Patient Records regulations: The Federal rules restrict any use of the information to criminally investigate or prosecute any alcohol or drug abuse patient.[facility] CenterIn the event this information is protected by the Federal Confidentiality of Alcohol and Drug Abuse Patient Records regulations: The Federal rules restrict any use of the information to criminally investigate or prosecute any alcohol or drug abuse patient.[facility] CenterIn the event this information is protected by the Federal Confidentiality of Alcohol and Drug Abuse Patient Records regulations: The Federal rules restrict any use of the information to criminally investigate or prosecute any alcohol or drug abuse patient.[facility] Reason for Visit (unrecogniz ed section and content) Reason Comments Referral Request Reason Comments Spirometry Specialty Diagnoses / Procedures Referred By Contac t Referred [facility] Diagnoses SOB (shortness of breath) Procedures SPIROMETRY WITH DILATOR IF OBSTRUCTED BRNCDILAT RSPSE SPMTRY PRE&POST-BRNCDILAT ADMN Annette Marrero MD [address] [place] [address] [address] Referral ID Status Reason Start Date Expiration Date V isits Requested Visits Authorized [id number] Denied Patient Cleared - [facility] 03/06/2024 04/04/2025 1 0 Specialty Diagnoses / Procedures Referred By Contac t Referred To [facility] Diagnoses SOB (shortness of breath) Procedures LUNG DIFFUSION CAPACITY (DLCO) DIFFUSING CAPACITY Annette Marrero MD [address] [place] [address] [address] Referral ID Status Reason Start Date Expiration Date V isits Requested Visits Authorized [id number] Denied Patient Cleared - [facility] 03/24/2024 08/25/2024 1 0 Reason Comments Consult copd - pfts and cxr done Specialty Diagnoses / Procedures Referred By Contac t Referred To Contact Pulmonary and Critical Care Medicine / PULMONARY MEDICINE Diagnoses Provider: Any Staff Roastmaster Appointment Type: [id number] (In Person) Location: Patient preference Visit Type: NEW Diagnosis: COPD Appointment Time Frame: Other: Per patient's convenience ([place], [place], [place], [place]) Testing Needed: TESTS: Any that are required. Patient has not been seen by pulmonary at [facility]. Staff msg Procedures OFFICE/OUTPATIENT NEW MODERATE MDM 45 MINUTES RI NEW COPD Self Tigre Restrepo MD [address] [place] [address] Referral ID Status Reason Start Date Expiration Date V isits Requested Visits Authorized [id number] Denied Patient Cleared - [facility] 03/24/2024 06/22/2024 1 0 Reason Comments Received Outside Medical Records immunit y therapy center Reason Comments Patient Update Reason Comments Radiology CT Specialty Diagnoses / Procedures Referred By Contac t Referred To Contact CT IMAGING Diagnoses Chest pain on breathing Procedures CT CHEST W IVCON PE DIAGNOSTIC COMPUTED TOMOGRAPHY THORAX W/CONTRAST Tigre Restrepo MD [address] [place] [address] Ct Imaging [id number] Referral ID Status Reason Start Date Expiration Date Visits Requested Visits Authorized [id number] Authorized Patient Cleared - [facility] 03/24/2024 04/23/2025 1 2 Reason Comments [...] TOMOGRAPHY THORAX W/O CNTEMMANUELLET Mehreen Crow MD [address] [place] [address] Ct Imaging [place] [address] Referral ID Status Reason Start Date Expiration Date V isits Requested Visits Authorized [id number] Closed Auto-Generate d Referral 05/15/2024 08/25/2024 1 [...] Diagnoses COPD Procedures RI EST COPD [facility] [place] [address] [place] [address] Phone: tel: Tigre Restrpeo MD [address] [place] [address] Phone: tel: fax: Referral ID Status Reason Start Date Expiration Date Visits Re quested Visits Authorized [id number] Closed 10/16/2024 08/25/2025 1 1 Reason Comments LMTCB Patient Request Message regarding ID Reason Comments COPD FOLLOW UP Specialty Diagnoses / Procedures Referred By Contac t Referred To Contact Pulmonary and Critical Care Medicine / PULMONARY MEDICINE Diagnoses COPD Procedures RI EST COPD REM [facility] [address] [place] [address] Phone: tel: Tigre Restrepo MD [address] [place] [address] Phone: tel: fax: FOR RECORDS PERTAINING TO [...] BE BASED ON THE PRIMARY CLINICAL RECORDS. [facility] [email or web address] [facility]. provides no warranty or guarantee of the accuracy or completeness of information in this document.
--- OUTSIDE RECORDS SUMMARY | 2025-08-05 00:04 | XMS RPT_ITS | CCD ---
Author Organization [facility] Care Team Providers Care Electronic Train Control Technician Name Role Phone SAHARA JAY Attending Unavailable SAHARA JAY Primary Care Unavailable SAHARA JAY Admitting Unavailable RADHA STAHL MD, III Primary Care Physician RADHA STAHL MD, III Primary Care Physician Dr. Jr Ryan Primary Care Provider Dr. Carmelo Bauer Emergency Provider [phone] Fatemeh Estrella Admit Provider Dr. Fatemeh Estrella Attending Provider Dr. Fatemeh Estrella Other Provider Dr. Carri Worley Attending Provider [phone] Carri Worley Other Provider RADHA STAHL MD, III Primary Care UnavailJUAN Dukes Attending Unavailable JR RYAN Primary Care Unavailable Dr. Jr Ryan Primary Care Provider Dr. Migel Iqbal Emergency Provider Dr. Anirudh Thompson Admit Provider Dr. Anirudh Thompson Attending Provider Dr. Anirudh Thompson Other Provider Dr. Fadi Lloyd Attending Provider Dr. Fadi Lloyd Other Provider Jr Ryan DO Primary Care Provider Dr. Jr Ryan DO Primary Care Provider Dr. Todd Valdovinos DO Emergency Provider Dr. Anirudh Thompson DO Admit Provider [phone] Dr. Anirudh Thompson DO Attending Provider Georgina TUBE CLEANING OPERATOR-C, Michelle Sanaz Primary Care Provider Dr. Jr [...] Pike DO Emergency Department Physi parvin Georgina TUBE CLEANING OPERATOR-C, Michelle Sanaz Primary Care Physician Dr. Karen Le DO Admitting Physician Dr. Karen Le DO Attending Physician Rey LI, Dr. Jones Nurse Practitioner Jopperi, Anirudh Attending Unavailable Connor, Jr Primary Care Unavailable Jopperi, Anirudh Consulting Unavailable Jopperi, Anirudh Attending Unavailable Jopperi, Anirudh Admitting Unavailable Georgina TUBE CLEANING OPERATOR, Michelle Sanaz Primary Care Unavailabl e Eh Castellon Attending Unavailable Jopperi, Anirudh Referring Unavailable Connor, Jr Primary Care Unavailable CandeEh Attending Unavailable Connor, Jr Primary Care Unavailable Roof TUBE CLEANING OPERATOR, Bentley Rodgers Attending Unavailable Connor, Jr Primary Care Unavailable Connor, Jr Referring Unavailable Roof TUBE CLEANING OPERATOR, Bentley H Attending Unavailable Karen Le Consulting Unavailable Karen Le Attending Unavailable Karen Le Admitting Unavailable Kapper TUBE CLEANING OPERATOR, Michelle Sanaz Primary Care Unavailabl e Jopperi, Anirudh Attending Unavailable Georgina TUBE CLEANING OPERATOR, [facility] UnavailAnirudh Mejia Admitting Unavailable Karen Le Attending Unavailable Karen Le Admitting Unavailable Georgina TUBE CLEANING OPERATOR, [facility] Unavailabl e CHARLES, NARIMAN A Attending Unavailable JR RYAN Primary Care Unavailable TIGRE RESTREPO Attending Unavailable JR RYAN Primary Care Unavailable Allergies Allergy Classification Reported Allergen(s) Allergy Type Date of Onset Reaction(s) Facility (20 sources) Lisinopril; Translations: [LISINOPRIL] Drug Allergy 7 Cough [facility] Repository (20 sources) Naproxen; Translations: [NAPROXEN] Drug Allergy 7 GI Upset [facility] Repository (20 sources) TRIAMTERENE-HYDR OCHLOROTHIAZID; Translations: [TRIAMTERENE-HYD ROCHLOROTHIAZID] Propensity to adverse reactions to drug (disorder) 7 Intolerance [facility]ository Medications Current Medications Medication Drug Class(es) Dates Sig (Normalized) Sig (Original) [id number] 200 actuat albuterol 0.09 mg/actuat metered dose [...] take 1 puff(s) by inhalation once daily qpntypwjetd-qfbamukmf-idqrdtth (TRELEGY ELLIPTA) 100-62.5-25 mcg inhalation powder Inhale [...] mg PO DAILY December 17, 2023 12:00am [facility] Complies with drug therapy [...] extended release oral tablet (9 sources) Uncompetitive S-msnubz-Y-aspartate Receptor Antagonist, Sigma-1 Agonist Start: 12-20-2023 End: [...] jo-ann by mouth. Active MAGNESIUM ORAL T oj-ann by mouth. 0 Active melatonin 10 mg [...] Coronary atherosclerosis; Translations: [Atherosclerotic heart disease of [place] coronary artery without angina pectoris] Onset: 12-09-2024 [...] Facility [facility]on 06-23-2025 [facility] Letter Text Normal [facility] Absolute lymphocyte countOrd ered By: Karen Le on 06-02-2025 Lymphocytes Auto (Unsp spec) [#/Vol] 0.36 10*3/uL Low 0.83-4.51 [facility] Absolute neutrophil countOrd ered By: Karen Le on 06-02-2025 Neutrophils (Bld) [#/Vol] 7.4 10*3/uL 2.0-7.7 [facility] Anion gap in Serum or Plasma Ordered By: Karen Le on 06-02-2025 Anion gap [Moles/Vol] 8 mmol/L 5-15 [facility] Automated lymphocyte count a s percentage of total leukocytesOrdered By: Karen Le on 06-02-2025 Lymphocytes/100 WBC Auto (Unsp spec) 4.5 % Low - [facility] BUN/creatinine ratioOrdered By: Karen Le on 06-02-2025 Urea nitrogen/Creatinine [Mass ratio] 31.4 mg/mg High 10- [facility] Basophil percentageOrdered B y: Karen Le on 06-02-2025 Basophils/100 WBC (Bld) 0.1 % 0-1 [facility] Bilirubin, totalOrdered By: Karen Le on 06-02-2025 Bilirubin [Mass/Vol] 0.44 mg/dL 0.00-1.30 [facility] CBC W/Diff, Automatedon Absolute Lymph 0.36 X10 3/uL Low 0.83-4.51 [facility] Comment on above: Performed By: #### L 501.5200, L500.2500, L100.0100 #### [facility] [address] [place], [address] Absolute Neut 7.4 X10 3/uL Normal 2.0-7.7 [facility] Comment on above: Performed By: #### L 501.5200, L500.2500, L100.0100 #### [facility] [address] [place], [address] Basophils/100 WBC (Bld) 0.1 % Normal 0-1 [facility] Comment on above: Performed By: #### L 501.5200, L500.2500, L100.0100 #### [facility] [address] [place], [address] Eosinophils/100 WBC (Bld) 0.0 % Normal 0-5 [facility] Comment on above: Performed By: #### L 501.5200, L500.2500, L100.0100 #### [facility] [address] [place], [address] Erythrocyte distribution width (RBC) [Ratio] 14.3 % Normal 11.6-14.6 [facility] Comment on above: Performed By: #### L 501.5200, L500.2500, L100.0100 #### [facility] [address] [place], [address] Hematocrit (Bld) [Volume fraction] 38.0 % Low 40-54 [facility] Comment on above: Performed By: #### L 501.5200, L500.2500, L100.0100 #### [facility] [address] [place], [address] Hemoglobin (Bld) [Mass/Vol] 12.8 g/dL Low 13.0-16.5 [facility] Comment on above: Performed By: #### L 501.5200, L500.2500, L100.0100 #### [facility] [address] [place], [address] IG% 0.400 Normal 0.0-0.9 [facility] Comment on above: Result Comment: IG% - Immature Granulocytes (promyelocytes, myelocytes and metamyelocytes) > 1% indicates that a LEFT SHIFT is Present. Performed By: #### L 501.5200, L500.2500, L100.0100 #### [facility] [address] [place], [address] Lymphocytes/100 WBC (Bld) 4.5 % Low 19-41 [facility] Comment on above: Performed By: #### L 501.5200, L500.2500, L100.0100 #### [facility] [address] [place], [address] MCH (RBC) [Entitic mass] 29.1 pg Normal 27.0-32.0 [facility] Comment on above: Performed By: #### L 501.5200, L500.2500, L100.0100 #### [facility] [address] [place], [address] MCHC (RBC) [Mass/Vol] 33.7 g/dL Normal 32-36 [facility] Comment on above: Performed By: #### L 501.5200, L500.2500, L100.0100 #### [facility] [address] [place], [address] MCV (RBC) [Entitic vol] 86.4 fL Normal 80-94 [facility] Comment on above: Performed By: #### L 501.5200, L500.2500, L100.0100 #### [facility] [address] [place], [address] Monocytes/100 WBC (Bld) 2.5 % Normal 0-10 [facility] Comment on above: Performed By: #### L 501.5200, L500.2500, L100.0100 #### [facility] [address] [place], [address] Neutrophils/100 WBC (Bld) 92.5 % High 47-70 [facility] Comment on above: Performed By: #### L 501.5200, L500.2500, L100.0100 #### [facility] [address] [place], [address] Nucleated RBC (Bld) [#/Vol] 0 10*3/uL Normal 0-5 [facility] Comment on above: Performed By: #### L 501.5200, L500.2500, L100.0100 #### [facility] [address] [place], [address] Platelet mean volume (Bld) [Entitic vol] 9.5 fL Normal 6.2-12.0 [facility] Comment on above: Performed By: #### L 501.5200, L500.2500, L100.0100 #### [facility] [address] [place], [address] Platelets (Bld) [#/Vol] 229 10*3/uL Normal 150-450 [facility] Comment on above: Performed By: #### L 501.5200, L500.2500, L100.0100 #### [facility] [address] [place], [address] RBC (Bld) [#/Vol] 4.40 10*6/uL Low 4.6-6.2 [facility] Comment on above: Performed By: #### L 501.5200, L500.2500, L100.0100 #### [facility] [address] [place], [address] RDW SD 45.5 fl High 35.1-43.9 [facility] Comment on above: Performed By: #### L 501.5200, L500.2500, L100.0100 #### [facility] [address] [place], [address] WBC (Bld) [#/Vol] 8.0 10*3/uL Normal 4.4-11.0 [facility] Comment on above: Performed By: #### L 501.5200, L500.2500, L100.0100 #### [facility] [address] [place], [address] Carbon dioxide, total [Moles /volume] in Central venous bloodOrdered By: Karen Le on 06-02-2025 CO2 [Moles/Vol] 27.5 mmol/L 21.0-32.0 [facility] Chloride assayOrdered By: Sejal lopezconnie Rey on 06-02-2025 Chloride [Moles/Vol] 101 mmol/L 98-108 [facility] Comprehensive Metabolic Prof ilon 06-02-2025 Albumin [Mass/Vol] 3.7 g/dL Normal 3.4-4.8 [facility] Comment on above: Performed By: #### L 501.5200, L500.2500, L100.0100 #### [facility] [address] [place], [address] Albumin/Globulin [Mass ratio] 2.0 {ratio} Normal 0.9-2.4 [facility] Comment on above: Performed By: #### L 501.5200, L500.2500, L100.0100 #### [facility] [address] [place], [address] ALK PHOS 60 U/L Normal 40-129 [facility] Comment on above: Performed By: #### L 501.5200, L500.2500, L100.0100 #### [facility] [address] [place], [address] ALT [Catalytic activity/Vol] 19 U/L Normal <=46 [facility] Comment on above: Performed By: #### L 501.5200, L500.2500, L100.0100 #### [facility] [address] [place], [address] AST [Catalytic activity/Vol] 20 U/L Normal <=37 [facility] Comment on above: Performed By: #### L 501.5200, L500.2500, L100.0100 #### [facility] [address] [place], [address] Bilirubin [Mass/Vol] 0.44 mg/dL Normal 0.00-1.30 [facility] Comment on above: Performed By: #### L 501.5200, L500.2500, L100.0100 #### [facility] [address] [place], [address] BUN/CRE 31.4 RATIO High 10-20 [facility] Comment on above: Performed By: #### L 501.5200, L500.2500, L100.0100 #### [facility] [address] [place], [address] Calcium [Mass/Vol] 9.2 mg/dL Normal 7.6-11.0 [facility] Comment on above: Performed By: #### L 501.5200, L500.2500, L100.0100 #### [facility] [address] [place], [address] Chloride [Moles/Vol] 101 mmol/L Normal 98-108 [facility] Comment on above: Performed By: #### L 501.5200, L500.2500, L100.0100 #### [facility] [address] [place], [address] CO2 [Moles/Vol] 27.5 mmol/L Normal 21.0-32.0 [facility] Comment on above: Performed By: #### L 501.5200, L500.2500, L100.0100 #### [facility] [address] [place], [address] Creatinine [Mass/Vol] 0.73 mg/dL Normal 0.70-1.20 [facility] Comment on above: Performed By: #### L 501.5200, L500.2500, L100.0100 #### [facility] [address] [place], [address] ECRCL 61.33 ml/min Normal 50-250 [facility] Comment on above: Performed By: #### L 501.5200, L500.2500, L100.0100 #### [facility] [address] [place], [address] GAP 8 Normal 5-15 [facility] Comment on above: Performed By: #### L 501.5200, L500.2500, L100.0100 #### [facility] [address] [place], [address] GFR/1.73 sq M.predicted among non-blacks MDRD (S/P/Bld) [Vol rate/Area] 95 mL/min/{1.73_m2} Normal >60 [facility] Comment on above: Result Comment: mL/m in/1.73m2 CKD-EPI Creatinine Equation (2020) Performed By: #### L 501.5200, L500.2500, L100.0100 #### [facility] [address] [place], [address] Globulin (S) [Mass/Vol] 1.9 g/dL Low 2.2-4.2 [facility] Comment on above: Performed By: #### L 501.5200, L500.2500, L100.0100 #### [facility] [address] [place], [address] Glucose [Mass/Vol] 165 mg/dL High 70-99 [facility] Comment on above: Performed By: #### L 501.5200, L500.2500, L100.0100 #### [facility] [address] [place], [address] Potassium [Moles/Vol] 4.7 mmol/L Normal 3.3-5.1 [facility] Comment on above: Performed By: #### L 501.5200, L500.2500, L100.0100 #### [facility] [address] [place], [address] Sodium [Moles/Vol] 137 mmol/L Normal 133-145 [facility] Comment on above: Performed By: #### L 501.5200, L500.2500, L100.0100 #### [facility] [address] [place], [address] T PROT 5.6 g/dL Low 5.9-8.4 [facility] Comment on above: Performed By: #### L 501.5200, L500.2500, L100.0100 #### [facility] [address] [place], [address] Urea nitrogen [Mass/Vol] 23 mg/dL High 4-19 [facility] Comment on above: Performed By: #### L 501.5200, L500.2500, L100.0100 #### [facility] [address] [place], [address] Eosinophil percentageOrdered By: Karen Le on 06-02-2025 Eosinophils/100 WBC (Bld) 0.0 % 0-5 [facility] Erythrocyte distribution wid th ratioOrdered By: Karen Le on 06-02-2025 Erythrocyte distribution width (RBC) [Ratio] 14.3 % 11.6-14.6 [facility] Erythrocyte distribution wid th standard deviationOrdered By: Karen Le on 06-02-2025 Erythrocyte distribution width (RBC) [Ratio] 45.5 fl High 35.1-43.9 [facility] Glomerular filtration rate ( GFR) estimation/1.73 sq m using serum, plasma, or whole bOrdered By: Karen Le on 06-02-2025 GFR/1.73 sq M.predicted among non-blacks MDRD (S/P/Bld) [Vol rate/Area] 95 mL/min/{1.73_m2} >60 [facility] Comment on above: mL/min/1.73m2 CKD-EP I Creatinine Equation (2020) Hematocrit Auto (Bld) [Volum e fraction]Ordered By: Karen Le on 06-02-2025 Hematocrit (Bld) [Volume fraction] 38.0 % Low 40-54 [facility] Hemoglobin measurementOrdere d By: Karen Le on 06-02-2025 Hemoglobin (Bld) [Mass/Vol] 12.8 g/dL Low 13.0-16.5 [facility] Immature granulocytes/100 WB C Auto (Bld)Ordered By: Karen Le on 06-02-2025 Immature granulocytes/100 WBC (Bld) 0.400 % 0.0-0.9 [facility] Comment on above: IG% - Immature Granu locytes (promyelocytes, myelocytes and metamyelocytes) > 1% indicates that a LEFT SHIFT is Present. Laboratory - Chemistry and C hemistry - challengeOrdered By: Karen Le on 06-02-2025 AST [Catalytic activity/Vol] 20 U/L <38 [facility] MCV (mean corpuscular volume ) determinationOrdered By: Karen Le on 06-02-2025 MCV (RBC) [Entitic vol] 86.4 fL 80-94 [facility] Magnesiumon 06-02-2025 Magnesium [Mass/Vol] 2.0 mg/dL Normal 1.5-2.2 [facility] Comment on above: Performed By: #### L 501.5200, L500.2500, L100.0100 #### [facility] [address] [place] [address], [id number] Magnesium measurement (mass/ volume)Ordered By: Karen Le on 06-02-2025 Magnesium (Unsp spec) [Mass/Vol] 2.0 mg/dL 1.5-2.2 [facility] Mean corpuscular hemoglobin (MCH) determinationOrdered By: Karen Le on 06-02-2025 MCH (RBC) [Entitic mass] 29.1 pg 27.0-32.0 [facility] Mean corpuscular hemoglobin concentration (MCHC) determinationOrdered By: Karen Le on 06-02-2025 MCHC (RBC) [Mass/Vol] 33.7 g/dL 32-36 [facility] Mean platelet volume determi nationOrdered By: Karen Le on 06-02-2025 Platelet mean volume (Bld) [Entitic vol] 9.5 fL 6.2-12.0 [facility] Monocyte percentageOrdered B y: Karen Le on 06-02-2025 Monocytes/100 WBC (Bld) 2.5 % 0-10 [facility] Neutrophil percentageOrdered By: Karen Le on 06-02-2025 Neutrophils/100 WBC (Bld) 92.5 % High 47-70 [facility] Nucleated red blood cell per centageOrdered By: Karen Le on 06-02-2025 Nucleated RBC/100 WBC (Bld) [Ratio] 0 % 0-5 [facility] Phosphoruson 06-02-2025 Phosphate [Mass/Vol] 3.2 mg/dL Normal 2.7-4.5 [facility] Comment on above: Performed By: #### L 501.5200, L500.2500, L100.0100 #### [facility] [address] [place], [address] Platelet countOrdered By: Sejal Le on 06-02-2025 Platelets (Bld) [#/Vol] 229 10*3/uL 150-450 [facility] Potassium measurement (mass/ volume)Ordered By: Karen Le on 06-02-2025 Potassium (Unsp spec) [Mass/Vol] 4.7 mmol/L 3.3-5.1 [facility] RBC Auto (Bld) [#/Vol]Ordere d By: Karen Le on 06-02-2025 RBC (Bld) [#/Vol] 4.40 10*6/uL Low 4.6-6.2 [facility] Serum creatinine measurement (mass/volume)Ordered By: Karen Le on 06-02-2025 Creatinine [Mass/Vol] 0.73 mg/dL 0.70-1.20 [facility] Serum globulin measurementOr dered By: Karen Le on 06-02-2025 Globulin (S) [Mass/Vol] 1.9 g/dL Low 2.2-4.2 [facility] Serum glucose measurement (m ass/volume)Ordered By: Karen Le on 06-02-2025 Glucose [Mass/Vol] 165 mg/dL High 70-99 [facility] Serum or plasma alanine orta otransferase (ALT) measurementOrdered By: Karen Le on 06-02-2025 ALT [Catalytic activity/Vol] 19 U/L <47 [facility] Serum or plasma albumin christiana urement (mass/volume)Ordered By: Karen Le on 06-02-2025 Albumin [Mass/Vol] 3.7 g/dL 3.4-4.8 [facility] Serum or plasma albumin/glob ulin mass ratioOrdered By: Karen Le on 06-02-2025 Albumin/Globulin [Mass ratio] 2.0 {ratio} 0.9-2.4 [facility] Serum or plasma alkaline rachel sphatase measurementOrdered By: Karen Le on 06-02-2025 ALP [Catalytic activity/Vol] 60 U/L 40-129 [facility] Serum or plasma calcium christiana urement (mass/volume)Ordered By: Karen Le on 06-02-2025 Calcium [Mass/Vol] 9.2 mg/dL 7.6-11.0 [facility] Serum or plasma urea nitroge n measurement (mass/volume)Ordered By: Karen Le on 06-02-2025 Urea nitrogen [Mass/Vol] 23 mg/dL High 4-19 [facility] Sodium levelOrdered By: Kira Le on 06-02-2025 Sodium [Moles/Vol] 137 mmol/L 133-145 [facility] Total proteinOrdered By: Caridad Le on 06-02-2025 Protein [Mass/Vol] 5.6 g/dL Low 5.9-8.4 [facility] White blood cell (WBC) count Ordered By: Karen Le on 06-02-2025 WBC (Bld) [#/Vol] 8.0 10*3/uL 4.4-11.0 [facility] 12 Lead EKGon 06-01-2025 12 Lead EKG [facility] [address] [place] [address] 12 Lead EKG 06/01/25 0729 MR#: [id number] Acct: [id number] Name: BEATRIS QUINN Rep #: [id number] : 1950 74 From: Eh Castellon MD [...] Normal ECG Confirmed by EH CASTELLON MD ([id number]), video effects editor MICHELLE ROMERO ([id number]) on 06/02/2025 1:25:02 PM Referred By: Confirmed By: EH CASTELLON MD 06/02/25 1325 Date Eh Castellon MD CC: TUBE CLEANING OPERATOR-C Michelle Ferraro; Dr. Vivi Pike DO; Dr. Karen Le DO Signed Normal [facility] Absolute lymphocyte countOrd ered By: Vivi Pike on 06-01-2025 Lymphocytes Auto (Unsp spec) [#/Vol] 1.29 10*3/uL 0.83-4.51 [facility] Absolute neutrophil countOrd ered By: Vivi Pike on 06-01-2025 Neutrophils (Bld) [#/Vol] 5.8 10*3/uL 2.0-7.7 [facility] Anion gap in Serum or Plasma Ordered By: Vivi Pike on 06-01-2025 Anion gap [Moles/Vol] 8 mmol/L 5- [facility] Automated lymphocyte count a s percentage of total leukocytesOrdered By: Vivi Pike on 06-01-2025 Lymphocytes/100 WBC Auto (Unsp spec) 15.9 % Low 19-41 [facility] BUN/creatinine ratioOrdered By: Vivi Pike on 06-01-2025 Urea nitrogen/Creatinine [Mass ratio] 26.3 mg/mg High 10- [facility] Basophil percentageOrdered B y: Vivi Pike on 06-01-2025 Basophils/100 WBC (Bld) 0.5 % 0-1 [facility] Bilirubin, totalOrdered By: Vivi Pike on 06-01-2025 Bilirubin [Mass/Vol] 0.70 mg/dL 0.00-1.30 [facility] CBC W/Diff, Automatedon Absolute Lymph 1.29 X10 3/uL Normal 0.83-4.51 [facility] Comment on above: Performed By: #### L 100.0100, L500.4050 #### [facility] [address] [place], [address] Absolute Neut 5.8 X10 3/uL Normal 2.0-7.7 [facility] Comment on above: Performed By: #### L 100.0100, L500.4050 #### [facility] [address] [place], [address] Basophils/100 WBC (Bld) 0.5 % Normal 0-1 [facility] Comment on above: Performed By: #### L 100.0100, L500.4050 #### [facility] [address] [place], [address] Eosinophils/100 WBC (Bld) 2.2 % Normal 0-5 [facility] Comment on above: Performed By: #### L 100.0100, L500.4050 #### [facility] [address] [place], [address] Erythrocyte distribution width (RBC) [Ratio] 14.4 % Normal 11.6-14.6 [facility] Comment on above: Performed By: #### L 100.0100, L500.4050 #### [facility] [address] [place], [address] Hematocrit (Bld) [Volume fraction] 42.7 % Normal 40-54 [facility] Comment on above: Performed By: #### L 100.0100, L500.4050 #### [facility] [address] [place], [address] Hemoglobin (Bld) [Mass/Vol] 14.1 g/dL Normal 13.0-16.5 [facility] Comment on above: Performed By: #### L 100.0100, L500.4050 #### [facility] [address] [place], [address] IG% 0.600 Normal 0.0-0.9 [facility] Comment on above: Result Comment: IG% - Immature Granulocytes (promyelocytes, myelocytes and metamyelocytes) > 1% indicates that a LEFT SHIFT is Present. Performed By: #### L 100.0100, L500.4050 #### [facility] [address] [place], [address] Lymphocytes/100 WBC (Bld) 15.9 % Low 19-41 [facility] Comment on above: Performed By: #### L 100.0100, L500.4050 #### [facility] [address] [place], [address] MCH (RBC) [Entitic mass] 28.7 pg Normal 27.0-32.0 [facility] Comment on above: Performed By: #### L 100.0100, L500.4050 #### [facility] [address] [place], [address] MCHC (RBC) [Mass/Vol] 33.0 g/dL Normal 32-36 [facility] Comment on above: Performed By: #### L 100.0100, L500.4050 #### [facility] [address] [place], [address] MCV (RBC) [Entitic vol] 86.8 fL Normal 80-94 [facility] Comment on above: Performed By: #### L 100.0100, L500.4050 #### [facility] [address] [place], [address] Monocytes/100 WBC (Bld) 9.4 % Normal 0-10 [facility] Comment on above: Performed By: #### L 100.0100, L500.4050 #### [facility] [address] [place], [address] Neutrophils/100 WBC (Bld) 71.4 % High 47-70 [facility] Comment on above: Performed By: #### L 100.0100, L500.4050 #### [facility] [address] [place], [address] Nucleated RBC (Bld) [#/Vol] 0 10*3/uL Normal 0-5 [facility] Comment on above: Performed By: #### L 100.0100, L500.4050 #### [facility] [address] [place], [address] Platelet mean volume (Bld) [Entitic vol] 9.3 fL Normal 6.2-12.0 [facility] Comment on above: Performed By: #### L 100.0100, L500.4050 #### [facility] [address] [place], [address] Platelets (Bld) [#/Vol] 235 10*3/uL Normal 150-450 [facility] Comment on above: Performed By: #### L 100.0100, L500.4050 #### [facility] [address] [place], [address] RBC (Bld) [#/Vol] 4.92 10*6/uL Normal 4.6-6.2 [facility] Comment on above: Performed By: #### L 100.0100, L500.4050 #### [facility] [address] [place], [address] RDW SD 46.2 fl High 35.1-43.9 [facility] Comment on above: Performed By: #### L 100.0100, L500.4050 #### [facility] [address] [place], [address] WBC (Bld) [#/Vol] 8.1 10*3/uL Normal 4.4-11.0 [facility] Comment on above: Performed By: #### L 100.0100, L500.4050 #### [facility] [address] [place], [address] CTA Chest W/WO Contraston CTA Chest W/WO Contrast [facility] [address] [place] [address] CTA Chest W/WO Contrast MR#: [id number] Acct: [id number] Name: BEATRIS QUINN Rep #: [id number] : 1950 M 74 From: Misbah lara MD PCP: ROWENA FERRARO Status: REG ER Study: CTA Chest W/WO Contrast Date of Exam: 06/01/25 Exam# [id number] Ordering Dr: Karen Le DO PROCEDURE: CTA [...] nodules superimposed on emphysematous changes. Reading Location: [id number] CC: Dr. Karen Le DO; ROWENA FERRARO Well Logging Captain: Signed Normal [facility] Carbon dioxide, total [Moles /volume] in Central venous bloodOrdered By: Vivi Pike on 06-01-2025 CO2 [Moles/Vol] 29.4 mmol/L 21.0-32.0 [facility] Chest PA and Lateralon 06-01 Chest PA and Lateral [facility] Imaging Services [address] [place] [address] Chest PA and Lateral MR#: [id number] Acct: [id number] Name: BEATRIS QUINN Rep #: [id number] : 1950 M 74 From: Jim Powell MD PCP: ROWENA FERRARO Status: REG ER Study: Chest PA and Lateral Date of Exam: 06/01/25 Exam# [id number] Ordering Dr: Vivi Pike DO PROCEDURE: CHEST [...] No new consolidation. 2. Granulomas. Reading Location: [id number] CC: Dr. Vivi Pike, DO; ROWENA FERRARO Well Logging Captain: Signed Normal [facility] Chloride assayOrdered By: Sudheer Pike on 06-01-2025 Chloride [Moles/Vol] 100 mmol/L 98-108 [facility] Comprehensive Metabolic Prof ilon 06-01-2025 Albumin [Mass/Vol] 4.0 g/dL Normal 3.4-4.8 [facility] Comment on above: Performed By: #### L 100.0100, L500.4050 #### [facility] [address] [place], [address] Albumin/Globulin [Mass ratio] 1.8 {ratio} Normal 0.9-2.4 [facility] Comment on above: Performed By: #### L 100.0100, L500.4050 #### [facility] [address] [place], [address] ALK PHOS 67 U/L Normal 40-129 [facility] Comment on above: Performed By: #### L 100.0100, L500.4050 #### [facility] [address] [place], [address] ALT [Catalytic activity/Vol] 17 U/L Normal <=46 [facility] Comment on above: Performed By: #### L 100.0100, L500.4050 #### [facility] [address] [place], [address] AST [Catalytic activity/Vol] 23 U/L Normal <=37 [facility] Comment on above: Performed By: #### L 100.0100, L500.4050 #### [facility] [address] [place], [address] Bilirubin [Mass/Vol] 0.70 mg/dL Normal 0.00-1.30 [facility] Comment on above: Performed By: #### L 100.0100, L500.4050 #### [facility] [address] [place], [address] BUN/CRE 26.3 RATIO High 10-20 [facility] Comment on above: Performed By: #### L 100.0100, L500.4050 #### [facility] [address] [place], [address] Calcium [Mass/Vol] 9.3 mg/dL Normal 7.6-11.0 [facility] Comment on above: Performed By: #### L 100.0100, L500.4050 #### [facility] [address] [place], [address] Chloride [Moles/Vol] 100 mmol/L Normal 98-108 [facility] Comment on above: Performed By: #### L 100.0100, L500.4050 #### [facility] [address] [place], [address] CO2 [Moles/Vol] 29.4 mmol/L Normal 21.0-32.0 [facility] Comment on above: Performed By: #### L 100.0100, L500.4050 #### [facility] [address] [place], [address] Creatinine [Mass/Vol] 0.99 mg/dL Normal 0.70-1.20 [facility] Comment on above: Performed By: #### L 100.0100, L500.4050 #### [facility] [address] [place], [address] ECRCL 50.93 ml/min Normal 50-250 [facility] Comment on above: Performed By: #### L 100.0100, L500.4050 #### [facility] [address] [place], [address] GAP 8 Normal 5-15 [facility] Comment on above: Performed By: #### L 100.0100, L500.4050 #### [facility] [address] [place], [address] GFR/1.73 sq M.predicted among non-blacks MDRD (S/P/Bld) [Vol rate/Area] 80 mL/min/{1.73_m2} Normal >60 [facility] Comment on above: Result Comment: mL/m in/1.73m2 CKD-EPI Creatinine Equation (2020) Performed By: #### L 100.0100, L500.4050 #### [facility] [address] [place], [address] Globulin (S) [Mass/Vol] 2.2 g/dL Normal 2.2-4.2 [facility] Comment on above: Performed By: #### L 100.0100, L500.4050 #### [facility] [address] [place], [address] Glucose [Mass/Vol] 104 mg/dL High 70-99 [facility] Comment on above: Performed By: #### L 100.0100, L500.4050 #### [facility] [address] [place], [address] Potassium [Moles/Vol] 4.4 mmol/L Normal 3.3-5.1 [facility] Comment on above: Performed By: #### L 100.0100, L500.4050 #### [facility] [address] [place], [address] Sodium [Moles/Vol] 137 mmol/L Normal 133-145 [facility] Comment on above: Performed By: #### L 100.0100, L500.4050 #### [facility] [address] [place], [address] T PROT 6.1 g/dL Normal 5.9-8.4 [facility] Comment on above: Performed By: #### L 100.0100, L500.4050 #### [facility] [address] [place], [address] Urea nitrogen [Mass/Vol] 26 mg/dL High 4-19 [facility] Comment on above: Performed By: #### L 100.0100, L500.4050 #### [facility] [address] [place], [address] Emergency Department Summary on 06-01-2025 Emergency Department Summary [facility] Medical Records Department [address] [place] [address] Emergency Department Summary 06/01/25 MR#: [id number] Acct: [id number] Name: BEATRIS QUINN Eligio Rep #: [id number] : 1950 74 From: Vivi Pike DO [...] Recent immobilization, Recent surgery or [facility] Medical History Aortic stenosis Elevated coronary artery calcium score Urinary retention Heart murmur Anxiety On home oxygen therapy Acute hypoxemic respiratory failure Pneumonia COPD (chronic obstructive pulmonary disease) [place] (hard of hearing) Hypertension Home Medications ???Medication [...] 156/85 H (more content not included)... Normal [facility] Eosinophil percentageOrdered By: Vivi Pike on 06-01-2025 Eosinophils/100 WBC (Bld) 2.2 % 0-5 [facility] Erythrocyte distribution wid th ratioOrdered By: Vivi Pike on 06-01-2025 Erythrocyte distribution width (RBC) [Ratio] 14.4 % 11.6-14.6 [facility] Erythrocyte distribution wid th standard deviationOrdered By: Vivi Pike on 06-01-2025 Erythrocyte distribution width (RBC) [Ratio] 46.2 fl High 35.1-43.9 [facility] Glomerular filtration rate ( GFR) estimation/1.73 sq m using serum, plasma, or whole bOrdered By: Vivi Pike on 06-01-2025 GFR/1.73 sq M.predicted among non-blacks MDRD (S/P/Bld) [Vol rate/Area] 80 mL/min/{1.73_m2} >60 [facility] Comment on above: mL/min/1.73m2 CKD-EP I Creatinine Equation (2020) H AND P Exam - [facility] 06-01-2025 H&P Exam - Hospitalist [facility] Medical Records Department [address] [place] [address] H P Exam - Hospitalist 06/01/25 1056 MR#: [id number] Acct: [id number] Name: BEATRIS QUINN Rep #: [id number] : 1950 74 From: Karen Le DO PCP: Michelle Ferraro, TUBE CLEANING OPERATOR-C Status:ADM IN [place] [facility] [id number] HPI - General General Date of Admission: 06/01/25 Date of Service: 06/01/25 Chief Complaint: Shortness of breath HPI Narrative BEATRIS QUINN, is a 74 M who presented to the emergency department at [facility] on 06/01/2025 with chief complaint of shortness [...] made. He will be admitted to [facility] and at the time of admission I do anticipate at least 2 midnight stay. [facility] Medical History COPD (chronic obstructive pulmonary disease) Hypertension Aortic stenosis Elevated coronary artery calcium score Urinary retention Heart murmur Anxiety On home oxygen therapy Acute hypoxemic respiratory failure Pneumonia COPD (chronic obstructive pulmonary disease) [place] (hard of hearing) Hypertension Home Medications ???Medication [...] nasal congestio (more content not included)... Normal [facility] Hematocrit Auto (Bld) [Volum e fraction]Ordered By: Vivi Pike on 06-01-2025 Hematocrit (Bld) [Volume fraction] 42.7 % 40-54 [facility] Hemoglobin measurementOrdere d By: Vivi Pike on 06-01-2025 Hemoglobin (Bld) [Mass/Vol] 14.1 g/dL 13.0-16.5 [facility] Immature granulocytes/100 WB C Auto (Bld)Ordered By: Vivi Pike on 06-01-2025 Immature granulocytes/100 WBC (Bld) 0.600 % 0.0-0.9 [facility] Comment on above: IG% - Immature Granu locytes (promyelocytes, myelocytes and metamyelocytes) > 1% indicates that a LEFT SHIFT is Present. Influenza virus A and B and SARS-CoV-2 (COVID-19) and Respiratory syncytial virus RNAOrdered By: Vivi Pike on 06-01-2025 SARS-CoV-2 (COVID-19) RNA JELENA+probe Ql (Unsp spec) [facility] L501.4021on 06-01-2025 Trop T High Sen 32 ng/L High <=22 [facility] Comment on above: Performed By: #### L 501.5200, L500.2500, L100.0100 #### [facility] [address] [place], [address] Laboratory - Chemistry and C hemistry - challengeOrdered By: Vivi Pike on 06-01-2025 AST [Catalytic activity/Vol] 23 U/L <38 [facility] M100.678on 06-01-2025 M100.678 Pending SARS-CoV-2 (COVID 19) Negative INFLUENZA A Negative INFLUENZA B Negative RSV PCR Negative Normal [facility] Comment on above: Performed By: #### L 501.5200, L500.2500, L100.0100 #### [facility] [address] [place], [address] MCV (mean corpuscular volume ) determinationOrdered By: Vivi Pike on 06-01-2025 MCV (RBC) [Entitic vol] 86.8 fL 80-94 [facility] Mean corpuscular hemoglobin (MCH) determinationOrdered By: Vivi Pike on 06-01-2025 MCH (RBC) [Entitic mass] 28.7 pg 27.0-32.0 [facility] Mean corpuscular hemoglobin concentration (MCHC) determinationOrdered By: Vivi Pike on 06-01-2025 MCHC (RBC) [Mass/Vol] 33.0 g/dL 32-36 [facility] Mean platelet volume determi nationOrdered By: Vivi Pike on 06-01-2025 Platelet mean volume (Bld) [Entitic vol] 9.3 fL 6.2-12.0 [facility] Monocyte percentageOrdered B y: Vivi Pike on 06-01-2025 Monocytes/100 WBC (Bld) 9.4 % 0-10 [facility] Natriuretic peptide.B prohor [place] N-Terminal [Mass/volume] in Serum or PlasmaOrdered By: Karen Le on 06-01-2025 Natriuretic peptide.B prohormone N-Terminal [Mass/Vol] 273 pg/mL <900 [facility] Comment on above: Heart Failure Unlike ly: < 300 pg/mLHeart Failure Likely< 50 Years: > 450 pg/mL50-75 Years: > 900 pg/mL>75 Years: > 1800 pg/mL Neutrophil percentageOrdered By: Vivi Pike on 06-01-2025 Neutrophils/100 WBC (Bld) 71.4 % High 47-70 [facility] Nucleated red blood cell per centageOrdered By: Vivi Pike on 06-01-2025 Nucleated RBC/100 WBC (Bld) [Ratio] 0 % 0-5 [facility] Platelet countOrdered By: Sudheer Pike on 06-01-2025 Platelets (Bld) [#/Vol] 235 10*3/uL 150-450 [facility] Potassium measurement (mass/ volume)Ordered By: Vivi Pike on 06-01-2025 Potassium (Unsp spec) [Mass/Vol] 4.4 mmol/L 3.3-5.1 [facility] Pro- Brain NATRIURETIC PEPTI William 06-01-2025 Natriuretic peptide B (Bld) [Mass/Vol] 273 pg/mL Normal <=900 [facility] Comment on above: Result Comment: Hear t Failure Unlikely: < 300 pg/mL Heart Failure Likely < 50 Years: > 450 pg/mL 50-75 Years: > 900 pg/mL >75 Years: > 1800 pg/mL Performed By: #### L 501.5200, L500.2500, L100.0100 #### [facility] [address] [place] [address], [id number] RBC Auto (Bld) [#/Vol]Ordere d By: Vivi Pike on 06-01-2025 RBC (Bld) [#/Vol] 4.92 10*6/uL 4.6-6.2 [facility] RESPIRATORY PANEL MOLECULARo n 06-01-2025 RP PANEL ADENOVIRUS Not Detected INFLUENZA A Not Detected INFLUENZA A (SUBTYPE H1) Not Detected INFLUENZA A (SUBTYPE H3) Not Detected INFLUENZA B Not Detected HUMAN METAPHNEUMO Not Detected PARAINFLUENZA 1 Not Detected PARAINFLUENZA 2 Not Detected PARAINFLUENZA 3 Not Detected PARAINFLUENZA 4 Not Detected RHINOVIRUS Not Detected RSV A Not Detected RSV B Not Detected Normal [facility] Comment on above: Performed By: #### L 501.8130, L500.2500, L100.0100 #### [facility] [place] [address], [address] Respiratory pathogens detect ion panel by molecular detection methodOrdered By: Karen eL on 06-01-2025 Respiratory pathogens DNA and RNA panel JELENA+probe (Resp) [facility] Serum creatinine measurement (mass/volume)Ordered By: Vivi Pike on 06-01-2025 Creatinine [Mass/Vol] 0.99 mg/dL 0.70-1.20 [facility] Serum globulin measurementOr dered By: Vivi Pike on 06-01-2025 Globulin (S) [Mass/Vol] 2.2 g/dL 2.2-4.2 [facility] Serum glucose measurement (m ass/volume)Ordered By: Vivi Pike on 06-01-2025 Glucose [Mass/Vol] 104 mg/dL High 70-99 [facility] Serum or plasma alanine orta otransferase (ALT) measurementOrdered By: Vivi Pike on 06-01-2025 ALT [Catalytic activity/Vol] 17 U/L <47 [facility] Serum or plasma albumin christiana urement (mass/volume)Ordered By: Vivi Pike on 06-01-2025 Albumin [Mass/Vol] 4.0 g/dL 3.4-4.8 [facility] Serum or plasma albumin/glob ulin mass ratioOrdered By: Vivi Pike on 06-01-2025 Albumin/Globulin [Mass ratio] 1.8 {ratio} 0.9-2.4 [facility] Serum or plasma alkaline rachel sphatase measurementOrdered By: Vivi Pike on 06-01-2025 ALP [Catalytic activity/Vol] 67 U/L 40-129 [facility] Serum or plasma calcium christiana urement (mass/volume)Ordered By: Vivi Pike on 06-01-2025 Calcium [Mass/Vol] 9.3 mg/dL 7.6-11.0 [facility] Serum or plasma urea nitroge n measurement (mass/volume)Ordered By: Vivi Pike on 06-01-2025 Urea nitrogen [Mass/Vol] 26 mg/dL High 4-19 [facility] Sodium levelOrdered By: Jenise Pike on 06-01-2025 Sodium [Moles/Vol] 137 mmol/L 133-145 [facility] TSH DL <= 0.005 mIU/L QnOrde red By: Vivi Pike on 06-01-2025 TSH Qn 3.320 uIU/mL 0.300-4.200 [facility] Thyroid Stim Hormone (TSH)on 06-01-2025 TSH 3.320 uIU/mL Normal 0.300-4.200 [facility] Comment on above: Performed By: #### L 501.5200, L500.2500, L100.0100 #### [facility] [address] [facility] [place], [place], [id number] (830) Total proteinOrdered By: Keily Pike on 06-01-2025 Protein [Mass/Vol] 6.1 g/dL 5.9-8.4 [facility] Troponin T HS 2 HRon 025 Trop T High Sen 32 ng/L High <=22 [facility] Comment on above: Performed By: #### L 499.0042 #### [facility] [address] [place], [place], [address] Troponin T HS 4 HRon 025 Trop T High Sen 26 ng/L High <=22 [facility] Comment on above: Performed By: #### L 499.0043 #### [facility] [address] [place], [place], [id number] (209) Troponin T.cardiac [Mass/vol ume] in Serum or Plasma by High sensitivity methodOrdered By: Vivi Pike on 06-01-2025 Troponin T.cardiac High sensitivity method [Mass/Vol] 26 ng/L High <22 [facility] Troponin T.cardiac High sensitivity method [Mass/Vol] 32 ng/L High <22 [facility] Troponin T.cardiac High sensitivity method [Mass/Vol] 32 ng/L High <22 [facility] Comment on above: Delta: 17 on 5-1040 White blood cell (WBC) count Ordered By: Vivi Pike on 06-01-2025 WBC (Bld) [#/Vol] 8.1 10*3/uL 4.4-11.0 [facility] CNOVon 04-16-2025 CNOV Office Visit ([facility] ) BEATRIS QUINN ([id number]) 1950 M Date Time Provider Department 04/16/25 10:00 AM TIGRE RESTREPO [facility] During your visit today, we recorded the following information about you: Pulse Blood pressure Weight 72/minute 128/72 55.6 kg Tigre Restrepo MD 04/16/2025 10:39 AM [facility] [...] uysing prednisone 5 mg daily (given by [facility] physician) No weight loss, no fever Ct [...] distribution which are most likely infectious/inflammator y. Well Logging Captain: CoeurativeRenzo Transcribe Date/Time: Oct 20 2024 1:36P Dictated by : MICAELA FONTAINE MD This examination was interpreted and the report reviewed and electronically signed by: MICAELA FONTAINE MD on Oct 20 2024 2:05PM EST IMPRESSION: 1. Lung nodules - ICD9: 793.19, ICD10: R91.8 (primary diagnosis) Ct chest 02/06/2024: Lymphadenopathy up to 14 mm Multiple nodules, some are calcified, others have neoplastic appearance, largest [id number] lateral segment RML. Cavitary type lesion EDWIN [id number] Multiple large opacities, one of them is cavitated Course of antibiotic completed PET scan 03/2024 * Numerous metabolically active bilateral lung nodules are similar to 03/27/2024. * Dominant 2.9 cm left upper lobe nodule with resolved cavitary component. Ct chest 04/2024 Compared to 03/27/2024 exam, most of the (more content not included)... Normal [facility] CT CHEST WO IVCONon 04-16-20 CT CHEST WO IVCON * * *Final Report* * * DATE OF EXAM: Apr 16 2025 8:58AM [facility] [place]ST [place] IV[place] / [...] again seen. Both lungs as well as igpu-nv-bxu-type pulmonary nodules and mucoid impaction, predominantly within [...] mild, diffuse bronchiectasis. Stable nodular opacities and bmqj-su-nvf-type pulmonary nodules associated within the lungs. Mild, diffuse bronchiectasis. Secretions within the trachea and mainstem bronchi. Sequela of remote granulomatous disease. Overall, findings have not significantly changed in the interval. No radha lymphadenopathy is seen within the chest. Well Logging Captain: PSCB Transcribe Date/Time: Apr 17 2025 7:06A Dictated by : MIKE BLACKWOOD MD This examination was interpreted and the report reviewed and electronically signed by: MIKE BLACKWOOD MD on Apr 17 2025 4:14PM EST [id number] Normal [facility] Respiratory Cultureon 2024 RESPC Not obtained [...] 80 R Minocycline Islt ELOY S Normal [facility] Comment on above: Performed By: #### L 501.5200, L500.2500, L100.0100 #### [facility] [address] [place], [address] 12 Lead EKGon 12-02-2024 12 Lead EKG [facility] Cardiovascular Services [address] [place] [address] 12 Lead EKG 12/01/24 1117 MR#: [id number] Acct: [id number] Name: BEATRIS QUINN Rep #: [id number] : 1950 73 From: Eh Castellon MD Attending Dr: Dr. Anirudh Thompson DO Status: DIS IN Ordering Dr: Anirudh Thompson DO Date: 12/02/24 Location: [facility] Sex: M C Admitted: 12/01/24 Test [...] Anterior leads Confirmed by CANDE JOHNS, EH ([id number]), video effects editor MICHELLE ROMREO ([id number]) on 12/03/2024 8:44:47 AM Referred By: COLETTE Confirmed By: EH CASTELLON MD 12/03/2444 Date Eh Castellon MD CC: TUBE CLEANING OPERATOR-C Michelle Ferraro; Dr. Anirudh Thompson, DO Signed Normal [facility] Absolute neutrophil countOrd ered By: Anirudh Thompson on 12-02-2024 Neutrophils (Bld) [#/Vol] 13.0 10*3/uL High 2.0-7.7 [facility] Anion gap in Serum or Plasma Ordered By: Anirudh Thompson on 12-02-2024 Anion gap [Moles/Vol] 10 mmol/L 5-15 [facility] BUN/creatinine ratioOrdered By: Anirudh Thompson on 12-02-2024 Urea nitrogen/Creatinine [Mass ratio] 24.4 mg/mg High 10-20 [facility] Basic Metabolic Profile (BMP )on 12-02-2024 BUN/CRE 24.4 RATIO High 10-20 [facility] Comment on above: Performed By: #### L 500.2500, L500.4100, L100.0100 #### [facility] [address] [place], [address] Calcium [Mass/Vol] 9.6 mg/dL Normal 7.6-11.0 [facility] Comment on above: Performed By: #### L 500.2500, L500.4100, L100.0100 #### [facility] [address] [place], [address] Chloride [Moles/Vol] 102 mmol/L Normal 98-108 [facility] Comment on above: Performed By: #### L 500.2500, L500.4100, L100.0100 #### [facility] [address] [place], [address] CO2 [Moles/Vol] 26.1 mmol/L Normal 21.0-32.0 [facility] Comment on above: Performed By: #### L 500.2500, L500.4100, L100.0100 #### [facility] [address] [place], [address] Creatinine [Mass/Vol] 0.84 mg/dL Normal 0.70-1.20 [facility] Comment on above: Performed By: #### L 500.2500, L500.4100, L100.0100 #### [facility] [address] [place], [address] ECRCL 62.26 ml/min Normal 50-250 [facility] Comment on above: Performed By: #### L 500.2500, L500.4100, L100.0100 #### [facility] [address] [place], [address] GAP 10 Normal 5-15 [facility] Comment on above: Performed By: #### L 500.2500, L500.4100, L100.0100 #### [facility] [address] [place], [address] GFR/1.73 sq M.predicted among non-blacks MDRD (S/P/Bld) [Vol rate/Area] 92 mL/min/{1.73_m2} Normal >60 [facility] Comment on above: Result Comment: mL/m in/1.73m2 CKD-EPI Creatinine Equation (2020) Performed By: #### L 500.2500, L500.4100, L100.0100 #### [facility] [address] [place], [address] Glucose [Mass/Vol] 174 mg/dL High 70-99 [facility] Comment on above: Performed By: #### L 500.2500, L500.4100, L100.0100 #### [facility] [address] [place], [address] Potassium [Moles/Vol] 4.5 mmol/L Normal 3.3-5.1 [facility] Comment on above: Performed By: #### L 500.2500, L500.4100, L100.0100 #### [facility] [address] [place], [address] Sodium [Moles/Vol] 138 mmol/L Normal 133-145 [facility] Comment on above: Performed By: #### L 500.2500, L500.4100, L100.0100 #### [facility] [address] [place], [address] Urea nitrogen [Mass/Vol] 21 mg/dL High 4-19 [facility] Comment on above: Performed By: #### L 500.2500, L500.4100, L100.0100 #### [facility] [address] [place], [address] Basophil percentageOrdered B y: Anirudh Thompson on 12-02-2024 Basophils/100 WBC (Bld) 0.1 % 0-1 [facility] CBC W/Diff, Automatedon 04-0 Absolute Lymph 0.30 X10 3/uL Low 0.83-4.51 [facility] Comment on above: Performed By: #### L 500.2500, L500.4100, L100.0100 #### [facility] [address] [place], [address] Absolute Neut 13.0 X10 3/uL High 2.0-7.7 [facility] Comment on above: Performed By: #### L 500.2500, L500.4100, L100.0100 #### [facility] [address] [place], [address] Basophils/100 WBC (Bld) 0.1 % Normal 0-1 [facility] Comment on above: Performed By: #### L 500.2500, L500.4100, L100.0100 #### [facility] [address] [place], [address] Eosinophils/100 WBC (Bld) 0.0 % Normal 0-5 [facility] Comment on above: Performed By: #### L 500.2500, L500.4100, L100.0100 #### [facility] [address] [place], [address] Erythrocyte distribution width (RBC) [Ratio] 14.3 % Normal 11.6-14.6 [facility] Comment on above: Performed By: #### L 500.2500, L500.4100, L100.0100 #### [facility] [address] [place], [address] Hematocrit (Bld) [Volume fraction] 36.6 % Low 40-54 [facility] Comment on above: Performed By: #### L 500.2500, L500.4100, L100.0100 #### [facility] [address] [place], [address] Hemoglobin (Bld) [Mass/Vol] 12.3 g/dL Low 13.0-16.5 [facility] Comment on above: Performed By: #### L 500.2500, L500.4100, L100.0100 #### [facility] [address] [place], [address] IG% 0.500 Normal 0.0-0.9 [facility] Comment on above: Result Comment: IG% - Immature Granulocytes (promyelocytes, myelocytes and metamyelocytes) > 1% indicates that a LEFT SHIFT is Present. Performed By: #### L 500.2500, L500.4100, L100.0100 #### [facility] [address] [place], [address] Lymphocytes/100 WBC (Bld) 2.2 % Low 19-41 [facility] Comment on above: Performed By: #### L 500.2500, L500.4100, L100.0100 #### [facility] [address] [place], [address] MCH (RBC) [Entitic mass] 29.3 pg Normal 27.0-32.0 [facility] Comment on above: Performed By: #### L 500.2500, L500.4100, L100.0100 #### [facility] [address] [place], [address] MCHC (RBC) [Mass/Vol] 33.6 g/dL Normal 32-36 [facility] Comment on above: Performed By: #### L 500.2500, L500.4100, L100.0100 #### [facility] [address] [place], [address] MCV (RBC) [Entitic vol] 87.1 fL Normal 80-94 [facility] Comment on above: Performed By: #### L 500.2500, L500.4100, L100.0100 #### [facility] [address] [place], [address] Monocytes/100 WBC (Bld) 2.0 % Normal 0-10 [facility] Comment on above: Performed By: #### L 500.2500, L500.4100, L100.0100 #### [facility] [address] [place], [address] Neutrophils/100 WBC (Bld) 95.2 % High 47-70 [facility] Comment on above: Performed By: #### L 500.2500, L500.4100, L100.0100 #### [facility] [address] [place], [address] Nucleated RBC (Bld) [#/Vol] 0 10*3/uL Normal 0-5 [facility] Comment on above: Performed By: #### L 500.2500, L500.4100, L100.0100 #### [facility] [address] [place], [address] Platelet mean volume (Bld) [Entitic vol] 9.9 fL Normal 6.2-12.0 [facility] Comment on above: Performed By: #### L 500.2500, L500.4100, L100.0100 #### [facility] [address] [place], [address] Platelets (Bld) [#/Vol] 294 10*3/uL Normal 150-450 [facility] Comment on above: Performed By: #### L 500.2500, L500.4100, L100.0100 #### [facility] [address] [place], [address] RBC (Bld) [#/Vol] 4.20 10*6/uL Low 4.6-6.2 [facility] Comment on above: Performed By: #### L 500.2500, L500.4100, L100.0100 #### [facility] [address] [place], [address] RDW SD 45.8 fl High 35.1-43.9 [facility] Comment on above: Performed By: #### L 500.2500, L500.4100, L100.0100 #### [facility] [address] [place], [address] WBC (Bld) [#/Vol] 13.7 10*3/uL High 4.4-11.0 [facility] Comment on above: Performed By: #### L 500.2500, L500.4100, L100.0100 #### [facility] [address] [place], [address] Calculated very low density lipoprotein (VLDL) cholesterol measurementOrdered By: Anirudh Thompson on 12-02-2024 VLDL Cholesterol 7 mg/dL 5-40 [facility] Carbon dioxide, total [Moles /volume] in Central venous bloodOrdered By: Anirudh Thompson on 12-02-2024 CO2 [Moles/Vol] 26.1 mmol/L 21.0-32.0 [facility] Cardiovascular stress test r eportOrdered By: Eh Castellon on 12-02-2024 Study report [facility] [address] [place] [address] MR#: [id number] Acct: [id number] Name: BEATRIS QUINN Rep #: [id number] : 1950 73 From: Eh Castellon MD [...] 1512 Date _ Eh Castellon MD CC: TUBE CLEANING OPERATOR-C Mihcelle Ferraro; Dr. Anirudh Thompson, DO; Todd Valdovinos DO ~ Date Dictated: 12/02/241505 Date Transcribed: 12/02/241505 Well Logging Captain: CO Signed [facility] Work Phone: Chloride assayOrdered By: Yael Thompson on 12-02-2024 Chloride [Moles/Vol] 102 mmol/L 98-108 [facility] Eosinophil percentageOrdered By: Anirudh Thompson on 12-02-2024 Eosinophils/100 WBC (Bld) 0.0 % 0-5 [facility] Erythrocyte distribution wid th (RBC) [Ratio]Ordered By: Anirudh Thompson on 12-02-2024 Erythrocyte distribution width (RBC) [Entitic vol] 45.8 fL High 35.1-43.9 [facility] Erythrocyte distribution wid th ratioOrdered By: Anirudh Thompson on 12-02-2024 Erythrocyte distribution width (RBC) [Ratio] 14.3 % 11.6-14.6 [facility] Estimation of creatinine tiffany aranceOrdered By: Anirudh Thompson on 12-02-2024 Estimated Creatinine Clearance Calc 62.26 ml/min 50-250 [facility] GFR/1.73 sq M.predicted ruby g non-blacks MDRD (S/P/Bld) [Vol rate/Area]Ordered By: Anirudh Thompson on 12-02-2024 Estimated GFR (MDRD) Non-Af Amer 92 >60 [facility] Comment on above: mL/min/1.73m2 CKD-EP I Creatinine Equation (2020) Gram Stainon 12-02-2024 GS Not obtained in 1 hr , induce w/nebulized 0.9% NaCL Acceptable Specimen? Yes (<25 Epithelial cells per/lpf) Gram Stain 4+ Gram negative rods 2+ Gram positive cocci Rare Gram positive rods 2+ White Blood Cells 1+ Epithelial cells Normal [facility] Comment on above: Performed By: #### L 501.5200, L500.2500, L100.0100 #### [facility] [place], [address] Hematocrit Auto (Bld) [Volum e fraction]Ordered By: Anirudh Thompson on 12-02-2024 Hematocrit (Bld) [Volume fraction] 36.6 % Low 40-54 [facility] Hemoglobin measurementOrdere d By: Anirudh Thompson on 12-02-2024 Hemoglobin (Bld) [Mass/Vol] 12.3 g/dL Low 13.0-16.5 [facility] Immature granulocytes/100 WB C Auto (Bld)Ordered By: Anirudh Thompson on 12-02-2024 Immature granulocytes/100 WBC (Bld) 0.500 % 0.0-0.9 [facility] Comment on above: IG% - Immature Granu locytes (promyelocytes, myelocytes and metamyelocytes) > 1% indicates that a LEFT SHIFT is Present. L. pneumophila Ag Ql (U)Orde red By: Anirudh Thompson on 12-02-2024 Legionella Antigen [facility] LDL calc ser/plasOrdered By: Anirudh Thompson on 12-02-2024 LDL Cholesterol, Calculated 95 mg/dL [facility] Comment on above: Kuihuvsjav=721-626 m g/dL & Higher Gyac=302 mg/dL or greater Legionella Antigen Urineon 0 [...] been changed. 12/02/24 1326 by REGINALD Wang [facility] Comment on above: Performed By: #### L 501.5200, L500.2500, L100.0100 #### [facility] [address] [place], [address] Lipid Profileon 12-02-2024 CHOL:HDL 2.37 Normal [facility] Comment on above: Performed By: #### L 501.5200, L500.2500, L100.0100 #### [facility] [address] [place], [address] Cholesterol [Mass/Vol] 177 mg/dL Normal <=200 [facility] Comment on above: Result Comment: Chol esterol level, Desirable <200 mg/dL Borderline high cholesterol 200-239 mg/dL High cholesterol >=240 mg/dL Recommendations of the NCEP Adult Treatment Panel for the following risk-cutoff thresholds for the [place] population. Performed By: #### L 501.5200, L500.2500, L100.0100 #### [facility] [address] [place], [address] Cholesterol in HDL [Mass/Vol] 75 mg/dL Normal [facility] Comment on above: Result Comment: [place] Cholesterol Education Program (NCEP) guidelines: <40 mg/dL: Low HDL-cholesterol (major risk factor for CHD) >= 60 mg/dL: High HDL-cholesterol (negative risk factor for CHD) HDL-cholesterol is affected by a number of factors, e.g. smoking, exercise, hormones, sex and age. Performed By: #### L 501.5200, L500.2500, L100.0100 #### [facility] [address] [place], [address] Cholesterol in LDL [Mass/Vol] 95 mg/dL Normal [facility] Comment on above: Result Comment: Bord sgissd=082-699 mg/dL Higher Xdzi=116 mg/dL or greater Performed By: #### L 501.5200, L500.2500, L100.0100 #### [facility] [address] [place], [address] Cholesterol in VLDL [Mass/Vol] 7 mg/dL Normal 5-40 [facility] Comment on above: Performed By: #### L 501.5200, L500.2500, L100.0100 #### [facility] [address] [facility] [place], [address] Triglyceride [Mass/Vol] 36 mg/dL Normal W [facility] Comment on above: Result Comment: The drugs N-Acetylcysteine and Metamizole may falsely depress this assay. Normal range: <150 mg/dL Borderline High: 150-199 mg/dL High: 200-499 mg/dL Very High: >500 mg/dL Performed By: #### L 501.5200, L500.2500, L100.0100 #### [facility] [address] [facility] [address] [place], [place], [id number] Lymphocytes Auto (Unsp spec) [#/Vol]Ordered By: Anirudh Thompson on 12-02-2024 Lymphocytes (Bld) [#/Vol] 0.30 10*3/uL Low 0.83-4.51 [facility] Lymphocytes/100 WBC Auto (Un sp spec)Ordered By: Anirudh Thompson on 12-02-2024 Lymphocytes/100 WBC (Bld) 2.2 % Low 19-41 [facility] MCV (mean corpuscular volume ) determinationOrdered By: Anirudh Thompson on 12-02-2024 MCV (RBC) [Entitic vol] 87.1 fL 80-94 [facility] Mean corpuscular hemoglobin (MCH) determinationOrdered By: Anirudh Thompson on 12-02-2024 MCH (RBC) [Entitic mass] 29.3 pg 27.0-32.0 [facility] Mean corpuscular hemoglobin concentration (MCHC) determinationOrdered By: Anirudh Thompson on 12-02-2024 MCHC (RBC) [Mass/Vol] 33.6 g/dL 32-36 [facility] Mean platelet volume determi nationOrdered By: Anirudh Thompson on 12-02-2024 Platelet mean volume (Bld) [Entitic vol] 9.9 fL 6.2-12.0 [facility] Monocyte percentageOrdered B y: Anirudh Thompson on 12-02-2024 Monocytes/100 WBC (Bld) 2.0 % 0-10 W [facility] Neutrophil percentageOrdered By: Anirudh Thompson on 12-02-2024 Neutrophils/100 WBC (Bld) 95.2 % High 47-70 [facility] Nucleated red blood cell per centageOrdered By: Anirudh Thompson on 12-02-2024 Nucleated RBC/100 WBC (Bld) [Ratio] 0 % 0-5 [facility] Platelet countOrdered By: Yael Thompson on 12-02-2024 Platelets (Bld) [#/Vol] 294 10*3/uL 150-450 [facility] Potassium (Unsp spec) [Mass/ Vol]Ordered By: Anirudh Thompson on 12-02-2024 Potassium [Moles/Vol] 4.5 mmol/L 3.3-5.1 [facility] RBC Auto (Bld) [#/Vol]Ordere d By: Anirudh Thompson on 12-02-2024 RBC (Bld) [#/Vol] 4.20 10*6/uL Low 4.6-6.2 [facility] Screening total cholesterol/ high density lipoprotein (HDL) cholesterol ratioOrdered By: Anirudh Thompson on 12-02-2024 Cholesterol.total/Choles terol in HDL [Mass ratio] 2.37 {ratio} [facility] Serum creatinine measurement (mass/volume)Ordered By: Anirudh Thompson on 12-02-2024 Creatinine [Mass/Vol] 0.84 mg/dL 0.70-1.20 [facility] Serum glucose measurement (m ass/volume)Ordered By: Anirudh Thompson on 12-02-2024 Glucose [Mass/Vol] 174 mg/dL High 70-99 [facility] Serum or plasma calcium christiana urement (mass/volume)Ordered By: Anirudh Thompson on 12-02-2024 Calcium [Mass/Vol] 9.6 mg/dL 7.6-11.0 [facility] Serum or plasma cholesterol in HDL measurement (mass/volume)Ordered By: Anirudh Thompson on 12-02-2024 Cholesterol in HDL [Mass/Vol] 75 mg/dL >40 [facility] Comment on above: National Cholesterol Education Program (NCEP) guidelines:<40 mg/dL: Low HDL-cholesterol (major risk factor for CHD)>= 60 mg/dL: High HDL-cholesterol (negative risk factor for CHD)HDL-cholesterol is affected by a number of factors, e.g. smoking, exercise, hormones, sex and age. Serum or plasma cholesterol measurement (mass/volume)Ordered By: Anirudh Thompson on 12-02-2024 Cholesterol [Mass/Vol] 177 mg/dL <201 [facility] Comment on above: Cholesterol level, D esirable <200 mg/dLBorderline high cholesterol 200-239 mg/dLHigh cholesterol >=240 mg/dLRecommendations of the NCEP Adult Treatment Panel for the following risk-cutoff thresholds for the [place] population. Serum or plasma urea nitroge n measurement (mass/volume)Ordered By: Anirudh Thompson on 12-02-2024 Urea nitrogen [Mass/Vol] 21 mg/dL High 4-19 [facility] Sodium levelOrdered By: Anirudh Thompson on 12-02-2024 Sodium [Moles/Vol] 138 mmol/L 133-145 [facility] Strep pneumoniae Antig(UR,CS F)on 12-02-2024 STPAG Comments: [...] Test Negative URINE (See interpretation below) Normal [facility] Comment on above: Performed By: #### L 501.5200, L500.2500, L100.0100 #### [facility] [address] [facility] [place], [place], [id number] Streptococcus pneumoniae ant igen assayOrdered By: Anirudh Thompson on 12-02-2024 Streptococcus pneumoniae Antigen (M [facility] Stress Reporton 12-02-2024 Stress Report [facility] [address] [place] [address] MR#: [id number] Acct: [id number] Name: BEATRIS QUINN Rep #: [id number] : 1950 73 From: Eh Castellon MD Primary Care: Michelle Ferraro, TUBE CLEANING OPERATOR-C Status: ADM IN Referring Dr: Sex: M [...] 12/02/24 1512 Date Eh Castellon MD CC: TUBE CLEANING OPERATOR-C Michelle Ferraro; Dr. Anirudh Thompson DO; Todd Valdovinos DO Date Dictated: 12/02/24 1506 Date Transcribed: 12/02/241505 Well Logging Captain: CO Signed Normal [facility] Triglycerides measurementOrd ered By: Anirudh Thompson on 12-02-2024 Triglyceride [Mass/Vol] 36 mg/dL <199 [facility] Comment on above: The drugs N-Acetylcy steine and Metamizole may falsely depress this assay. Normal range: <150 mg/dLBorderline High: 150-199 mg/dLHigh: 200-499 mg/dLVery High: >500 mg/dL White blood cell (WBC) count Ordered By: Anirudh Thompson on 12-02-2024 WBC (Bld) [#/Vol] 13.7 10*3/uL High 4.4-11.0 [facility] 12 Lead EKGon 12-01-2024 12 Lead EKG [facility] [address] [place] [address] 12 Lead EKG 12/02/24 0535 MR#: [id number] Acct: [id number] Name: BEATRIS QUINN Rep #: [id number] : 1950 73 From: Eh Castellon MD Attending Dr: Dr. Anirudh Thompson DO Status: DIS IN Ordering Dr: Anirudh Thompson DO Date: 12/01/24 Location: [facility] Sex: M C Admitted: 12/01/24 Test [...] UNCONFIRMED Confirmed by EH CASTELLON MD ([id number]), video effects editor MICHELLE ROMERO ([id number]) on 12/03/2024 8:44:29 AM Referred By: Confirmed By: EH CASTELLON MD 12/03/24 0844 Date Eh Castellon MD CC: VIVEK Ferraro; Dr. Anirudh Thompson DO Signed Normal [facility] Absolute neutrophil countOrd ered By: Todd Valdovinos on 12-01-2024 Neutrophils (Bld) [#/Vol] 12.1 10*3/uL High 2.0-7.7 [facility] Anion gap in Serum or Plasma Ordered By: Todd Valdovinos on 12-01-2024 Anion gap [Moles/Vol] 12 mmol/L - [facility] BUN/creatinine ratioOrdered By: Todd Valdovinos on 12-01-2024 Urea nitrogen/Creatinine [Mass ratio] 18.4 mg/mg - [facility] Basic Metabolic Profile (BMP )on 12-01-2024 BUN/CRE 18.4 RATIO Normal - [facility] Comment on above: Performed By: #### L 501.5200, L500.2500, L100.0100 #### [facility] [address] [place], [address] Calcium [Mass/Vol] 9.4 mg/dL Normal 7.6-11.0 [facility] Comment on above: Performed By: #### L 501.5200, L500.2500, L100.0100 #### [facility] [address] [place], [address] Chloride [Moles/Vol] 100 mmol/L Normal 98-108 [facility] Comment on above: Performed By: #### L 501.5200, L500.2500, L100.0100 #### [facility] [address] [place], [address] CO2 [Moles/Vol] 26.8 mmol/L Normal 21.0-32.0 [facility] Comment on above: Performed By: #### L 501.5200, L500.2500, L100.0100 #### [facility] [address] [place], [address] Creatinine [Mass/Vol] 0.93 mg/dL Normal 0.70-1.20 [facility] Comment on above: Performed By: #### L 501.5200, L500.2500, L100.0100 #### [facility] [address] [place], [address] ECRCL 57.13 ml/min Normal 50-250 [facility] Comment on above: Performed By: #### L 501.5200, L500.2500, L100.0100 #### [facility] [address] [place], [address] GAP 12 Normal 5-15 [facility] Comment on above: Performed By: #### L 501.5200, L500.2500, L100.0100 #### [facility] [address] [place], [address] GFR/1.73 sq M.predicted among non-blacks MDRD (S/P/Bld) [Vol rate/Area] 87 mL/min/{1.73_m2} Normal >60 [facility] Comment on above: Result Comment: mL/m in/1.73m2 CKD-EPI Creatinine Equation (2020) Performed By: #### L 501.5200, L500.2500, L100.0100 #### [facility] [address] [place], [address] Glucose [Mass/Vol] 229 mg/dL High 70-99 [facility] Comment on above: Performed By: #### L 501.5200, L500.2500, L100.0100 #### [facility] [address] [place], [address] Potassium [Moles/Vol] 4.2 mmol/L Normal 3.3-5.1 [facility] Comment on above: Performed By: #### L 501.5200, L500.2500, L100.0100 #### [facility] [address] [place], [address] Sodium [Moles/Vol] 139 mmol/L Normal 133-145 [facility] Comment on above: Performed By: #### L 501.5200, L500.2500, L100.0100 #### [facility] [address] [place], [address] Urea nitrogen [Mass/Vol] 17 mg/dL Normal 4-19 [facility] Comment on above: Performed By: #### L 501.5200, L500.2500, L100.0100 #### [facility] [address] [place], [address] Basophil percentageOrdered B y: Todd Valdovinos on 12-01-2024 Basophils/100 WBC (Bld) 0.2 % 0-1 [facility] CBC W/Diff, Automatedon Absolute Lymph 0.40 X10 3/uL Low 0.83-4.51 [facility] Comment on above: Performed By: #### L 501.5200, L500.2500, L100.0100 #### [facility] [address] [place], [address] Absolute Neut 12.1 X10 3/uL High 2.0-7.7 [facility] Comment on above: Performed By: #### L 501.5200, L500.2500, L100.0100 #### [facility] [address] [place], [address] Basophils/100 WBC (Bld) 0.2 % Normal 0-1 [facility] Comment on above: Performed By: #### L 501.5200, L500.2500, L100.0100 #### [facility] [address] [place], [address] Eosinophils/100 WBC (Bld) 0.0 % Normal 0-5 [facility] Comment on above: Performed By: #### L 501.5200, L500.2500, L100.0100 #### [facility] [address] [place], [address] Erythrocyte distribution width (RBC) [Ratio] 14.1 % Normal 11.6-14.6 [facility] Comment on above: Performed By: #### L 501.5200, L500.2500, L100.0100 #### [facility] [address] [place], [address] Hematocrit (Bld) [Volume fraction] 41.4 % Normal 40-54 [facility] Comment on above: Performed By: #### L 501.5200, L500.2500, L100.0100 #### [facility] [address] [place], [address] Hemoglobin (Bld) [Mass/Vol] 13.7 g/dL Normal 13.0-16.5 [facility] Comment on above: Performed By: #### L 501.5200, L500.2500, L100.0100 #### [facility] [address] [place], [address] IG% 0.600 Normal 0.0-0.9 [facility] Comment on above: Result Comment: IG% - Immature Granulocytes (promyelocytes, myelocytes and metamyelocytes) > 1% indicates that a LEFT SHIFT is Present. Performed By: #### L 501.5200, L500.2500, L100.0100 #### [facility] [address] [place], [address] Lymphocytes/100 WBC (Bld) 3.0 % Low 19-41 [facility] Comment on above: Performed By: #### L 501.5200, L500.2500, L100.0100 #### [facility] [address] [place], [address] MCH (RBC) [Entitic mass] 28.9 pg Normal 27.0-32.0 [facility] Comment on above: Performed By: #### L 501.5200, L500.2500, L100.0100 #### [facility] [address] [place], [address] MCHC (RBC) [Mass/Vol] 33.1 g/dL Normal 32-36 [facility] Comment on above: Performed By: #### L 501.5200, L500.2500, L100.0100 #### [facility] [address] [place], [address] MCV (RBC) [Entitic vol] 87.3 fL Normal 80-94 [facility] Comment on above: Performed By: #### L 501.5200, L500.2500, L100.0100 #### [facility] [address] [place], [address] Monocytes/100 WBC (Bld) 5.1 % Normal 0-10 [facility] Comment on above: Performed By: #### L 501.5200, L500.2500, L100.0100 #### [facility] [address] [place], [address] Neutrophils/100 WBC (Bld) 91.1 % High 47-70 [facility] Comment on above: Performed By: #### L 501.5200, L500.2500, L100.0100 #### [facility] [address] [place], [address] Nucleated RBC (Bld) [#/Vol] 0 10*3/uL Normal 0-5 [facility] Comment on above: Performed By: #### L 501.5200, L500.2500, L100.0100 #### [facility] [address] [place], [address] Platelet mean volume (Bld) [Entitic vol] 9.3 fL Normal 6.2-12.0 [facility] Comment on above: Performed By: #### L 501.5200, L500.2500, L100.0100 #### [facility] [address] [place], [address] Platelets (Bld) [#/Vol] 313 10*3/uL Normal 150-450 [facility] Comment on above: Performed By: #### L 501.5200, L500.2500, L100.0100 #### [facility] [address] [place], [address] RBC (Bld) [#/Vol] 4.74 10*6/uL Normal 4.6-6.2 [facility] Comment on above: Performed By: #### L 501.5200, L500.2500, L100.0100 #### [facility] [address] [place], [address] RDW SD 45.2 fl High 35.1-43.9 [facility] Comment on above: Performed By: #### L 501.5200, L500.2500, L100.0100 #### [facility] [address] [place], [address] WBC (Bld) [#/Vol] 13.3 10*3/uL High 4.4-11.0 [facility] Comment on above: Performed By: #### L 501.5200, L500.2500, L100.0100 #### [facility] [address] [place], [address] Carbon dioxide, total [Moles /volume] in Central venous bloodOrdered By: Todd Valdovinos on 12-01-2024 CO2 [Moles/Vol] 26.8 mmol/L 21.0-32.0 [facility] Chest PA and Lateralon 12-01 Chest PA and Lateral [facility] [address] [place] [address] Chest PA and Lateral MR#: [id number] Acct: [id number] Name: BEATRIS QUINN Rep #: [id number] : 1950 M 73 From: Sahara Brooks i, MD PCP: Dr. Jr Ryan, DO Status: REG ER Study: Chest PA and Lateral Date of Exam: 12/01/24 Exam# [id number] Ordering Dr: Todd Valdovinos DO PROCEDURE: CHEST [...] process. Recommend follow-up until resolution. Reading Location: [facility] CC: Dr. Jr Ryan DO; Todd Valdovinos DO Well Logging Captain: Signed Normal [facility] Chloride assayOrdered By: Aziza Valdovinos on 12-01-2024 Chloride [Moles/Vol] 100 mmol/L 98-108 [facility] Emergency Department Summary on 12-01-2024 Emergency Department Summary [facility] Medical Records Department [address] [place] [address] Emergency Department Summary 12/01/24 MR#: [id number] Acct: [id number] Name: BEATRIS QUINN Rep #: [id number] : 1950 73 From: Todd Valdovinos DO [...] influenza which was roughly 1 year ago [facility] Medical History Aortic stenosis Elevated coronary artery calcium score Urinary retention Heart murmur Anxiety On home oxygen therapy Acute hypoxemic respiratory failure Pneumonia COPD (chronic obstructive pulmonary disease) LOWER [place] (hard of hearing) Hypertension Home Medications ???Medication [...] or compromise (more content not included)... Normal [facility] Eosinophil percentageOrdered By: Todd Valdovinos on 12-01-2024 Eosinophils/100 WBC (Bld) 0.0 % 0-5 [facility] Erythrocyte distribution wid th (RBC) [Ratio]Ordered By: Todd Valdovinos on 12-01-2024 Erythrocyte distribution width (RBC) [Entitic vol] 45.2 fL High 35.1-43.9 [facility] Erythrocyte distribution wid th ratioOrdered By: Todd Valdovinos on 12-01-2024 Erythrocyte distribution width (RBC) [Ratio] 14.1 % 11.6-14.6 [facility] Estimation of creatinine tiffany aranceOrdered By: Todd Valdovinos on 12-01-2024 Estimated Creatinine Clearance Calc 57.13 ml/min 50-250 [facility] GFR/1.73 sq M.predicted ruby g non-blacks MDRD (S/P/Bld) [Vol rate/Area]Ordered By: Todd Valdovinos on 12-01-2024 Estimated GFR (MDRD) Non-Af Amer 87 >60 [facility] Comment on above: mL/min/1.73m2 CKD-EP I Creatinine Equation (2020) Gram stainOrdered By: Anirudh drake on 12-01-2024 Microscopic observation Gram stain Nom (Unsp spec) [facility] H AND P Exam - Hospitaliston 12-01-2024 H&P Exam - Hospitalist [facility] Medical Records Department [address] [place] [address] H P Exam - Hospitalist 12/01/24 0831 MR#: [id number] Acct: [id number] Name: BEATRIS QUINN Rep #: [id number] : 1950 73 From: Anirudh Thompson DO [...] better with rest. [facility] radiate. [facility] Aortic stenosis Elevated coronary artery calcium score Urinary retention Heart murmur Anxiety On home oxygen therapy Acute hypoxemic respiratory failure Pneumonia COPD (chronic obstructive pulmonary disease) [place] (hard of hearing) Hypertension Home Medications ???Medication [...] 4.74, Hgb (more content not included)... Normal [facility] Hematocrit Auto (Bld) [Volum e fraction]Ordered By: Todd Valdovinos on 12-01-2024 Hematocrit (Bld) [Volume fraction] 41.4 % 40-54 [facility] Hemoglobin measurementOrdere d By: Todd Valdovinos on 12-01-2024 Hemoglobin (Bld) [Mass/Vol] 13.7 g/dL 13.0-16.5 [facility] Immature granulocytes/100 WB C Auto (Bld)Ordered By: Todd Valdovinos on 12-01-2024 Immature granulocytes/100 WBC (Bld) 0.600 % 0.0-0.9 [facility] Comment on above: IG% - Immature Granu locytes (promyelocytes, myelocytes and metamyelocytes) > 1% indicates that a LEFT SHIFT is Present. Influenza virus A and B and SARS-CoV-2 (COVID-19) and Respiratory syncytial virus RNAOrdered By: Todd Valdovinos on 12-01-2024 SARS-CoV-2 (COVID-19) RNA JELENA+probe Ql (Unsp spec) [facility] L499.0042on 12-01-2024 Trop T High Sen 16 ng/L Normal <=22 [facility] Comment on above: Performed By: #### L 501.5200, L500.2500, L100.0100 #### [facility] [address] [place], [address] L499.0043on 12-01-2024 Trop T High Sen 20 ng/L Normal <=22 [facility] Comment on above: Performed By: #### L 499.0043 #### [facility] [address] [place], [address] L501.4021on 12-01-2024 Trop T High Sen 17 ng/L Normal <=22 [facility] Comment on above: Performed By: #### L 501.5200, L500.2500, L100.0100 #### [facility] [address] [place], [address] Lymphocytes Auto (Unsp spec) [#/Vol]Ordered By: Todd Valdovinos on 12-01-2024 Lymphocytes (Bld) [#/Vol] 0.40 10*3/uL Low 0.83-4.51 [facility] Lymphocytes/100 WBC Auto (Un sp spec)Ordered By: Todd Valdovinos on 12-01-2024 Lymphocytes/100 WBC (Bld) 3.0 % Low 19-41 [facility] M100.678on 12-01-2024 M100.678 SARS-CoV-2 (COVID 19 ) Negative INFLUENZA A Negative INFLUENZA B Negative RSV PCR Negative Normal [facility] Comment on above: Performed By: #### L 501.5200, L500.2500, L100.0100 #### [facility] [address] [place], [address] MCV (mean corpuscular volume ) determinationOrdered By: Todd Valdovinos on 12-01-2024 MCV (RBC) [Entitic vol] 87.3 fL 80-94 [facility] Magnesiumon 12-01-2024 Magnesium [Mass/Vol] 2.0 mg/dL Normal 1.5-2.2 [facility] Comment on above: Performed By: #### L 501.5200, L500.2500, L100.0100 #### [facility] [address] [place], [address] Magnesium (Unsp spec) [Mass/ Vol]Ordered By: Todd Valdovinos on 12-01-2024 Magnesium [Mass/Vol] 2.0 mg/dL 1.5-2.2 [facility] Mean corpuscular hemoglobin (MCH) determinationOrdered By: Todd Valdovinos on 12-01-2024 MCH (RBC) [Entitic mass] 28.9 pg 27.0-32.0 [facility] Mean corpuscular hemoglobin concentration (MCHC) determinationOrdered By: Todd Valdovinos on 12-01-2024 MCHC (RBC) [Mass/Vol] 33.1 g/dL 32-36 [facility] Mean platelet volume determi nationOrdered By: Todd Valdovinos on 12-01-2024 Platelet mean volume (Bld) [Entitic vol] 9.3 fL 6.2-12.0 [facility] Monocyte percentageOrdered B y: Todd Valdovinos on 12-01-2024 Monocytes/100 WBC (Bld) 5.1 % 0-10 [facility] Neutrophil percentageOrdered By: Todd Valdovinos on 12-01-2024 Neutrophils/100 WBC (Bld) 91.1 % High 47-70 [facility] Nucleated red blood cell per centageOrdered By: Todd Valdovinos on 12-01-2024 Nucleated RBC/100 WBC (Bld) [Ratio] 0 % 0-5 [facility] Platelet countOrdered By: Aziza Valdovinos on 12-01-2024 Platelets (Bld) [#/Vol] 313 10*3/uL 150-450 [facility] Potassium (Unsp spec) [Mass/ Vol]Ordered By: Todd Valdovinos on 12-01-2024 Potassium [Moles/Vol] 4.2 mmol/L 3.3-5.1 [facility] RBC Auto (Bld) [#/Vol]Ordere d By: Todd Valdovinos on 12-01-2024 RBC (Bld) [#/Vol] 4.74 10*6/uL 4.6-6.2 [facility] Serum creatinine measurement (mass/volume)Ordered By: Todd Valdovinos on 12-01-2024 Creatinine [Mass/Vol] 0.93 mg/dL 0.70-1.20 [facility] Serum glucose measurement (m ass/volume)Ordered By: Todd Valdovinos on 12-01-2024 Glucose [Mass/Vol] 229 mg/dL High 70-99 [facility] Serum or plasma calcium christiana urement (mass/volume)Ordered By: Todd Valdovinos on 12-01-2024 Calcium [Mass/Vol] 9.4 mg/dL 7.6-11.0 [facility] Serum or plasma urea nitroge n measurement (mass/volume)Ordered By: Todd Valdovinos on 12-01-2024 Urea nitrogen [Mass/Vol] 17 mg/dL 4-19 [facility] Sodium levelOrdered By: Joseph Valdovinos on 12-01-2024 Sodium [Moles/Vol] 139 mmol/L 133-145 [facility] Troponin T.cardiac High sens itivity method [Mass/Vol]Ordered By: Anirudh Thompson on 12-01-2024 Troponin T High Sensitivity 4 Hour 20 ng/L <22 [facility] Troponin T High Sensitivity 2 Hour 16 ng/L <22 [facility] Troponin T High Sensitivity 17 ng/L <22 [facility] White blood cell (WBC) count Ordered By: Todd Valdovinos on 12-01-2024 WBC (Bld) [#/Vol] 13.3 10*3/uL High 4.4-11.0 [facility] CNPNon 10-26-2024 CNPN Telephone (PULMMN) BEATRIS QUINN ([id number]) 1950 M Date Time Provider Department 10/26/24 [...] disease. Patient can be reached by calling [phone]. Tigre Restrepo MD 10/27/2024 11:03 AM Signed [...] Reason for Visit: LMTCB [1226] Patient Request [[id number]] Cmt: Message regarding ID Prescriptions as of [...] Encounter Status:Closed by CANDELARIA SINGH on 10/26/24 [facility] Bertrand 10-19-2024 MARTHAN Telephone ([facility]) BEATRIS QUINN ([id number]) 1950 M Date Time Provider Department 10/19/24 TIGRE RESTREPO [facility] During your visit today, we recorded the [...] Maybe send a letter? Glendy Dial, EM [facility] Clinical (2:29 PM) KK Please [...] Encounter Status:Closed by TIGRE RESTREPO on 10/19/24 [facility] CNOVon 10-16-2024 [facility] Office Visit ([facility] ) BEATRIS QUINN ([id number]) 1950 M Date Time Provider Department 10/16/24 3:30 PM TIGRE RESTREPO [facility] During your visit today, we recorded the following information about you: Pulse Blood pressure Weight Height 79/minute 153/76 59.4 kg 1.626 m Tigre Restrepo MD 10/16/2024 10:44 AM [facility] DEPART[facility]ULMON[facility]ICINE [...] report showed stable lung opacities Works in [employer] From [employer] Social History Tobacco Use Smoking status: Former [...] technique due to different penetrations the films. Well Logging Captain[facility] Transcribe Date/Time: Mar 24 2024 1:44P [...] be communicated with the ordering provider via [employer] staff message or phone message by Imaging Support Services within 2 business days of report finalization. --END OF FINDING-- Well Logging Captain: (more content not included)... Normal [facility] CT CHEST WO IVCONon 10-16-19 CT CHEST WO IVCON * * *Final Report* * * DATE OF EXAM: Oct 16 2024 7:11AM [facility] [place]ST WO IVCON / [...] distribution which are most likely infectious/inflammator y. Well Logging Captain: NESTOR Transcribe Date/Time: Oct 20 2024 1:36P Dictated by : MICAELA FONTAINE MD This examination was interpreted and the report reviewed and electronically signed by: MICAELA FONTAINE MD on Oct 20 2024 2:05PM EST [id number] [facility] 10-09-2024 CNPN Telephone (PULMMN) BEATRIS QUINN ([id number]) 1950 M Date Time Provider Department 10/09/24 TIGRE RESTREPO PULMM[facility] During your visit today, we recorded the following information about you: Candelaria Singh 10/09/2024 10:22 AM Signed Patient called COPD coordinator asking to message Dr. Restrepo requesting to add on testing at his next office visit on 10/16 in [place]. Patient states he will arrive one hour early for X-ray, CT scan or other testing. Patient has been calling the appointment line but has been on hold for too long. Please reach out to patient and confirm testing will be scheduled and advise of arrival time. Patient phone: [phone]. Tigre Restrepo MD 10/09/2024 10:39 AM Signed [...] Fully Assessed Reason for Visit: Patient Request [[id number]] Cmt: Testing Prescriptions as of 10/12/2024 - [...] Encounter Status:Closed by TIGRE RESTREPO on 10/09/24 [facility] Telephone ([facility]) BEATRIS QUINN ([id number]) 1950 Date Time Provider Department 07/01/24 TIGRE RESTREPO [facility] During your visit today, we recorded the following information about you: Tigre Restrepo MD 07/01/2024 3:39 PM Signed Please check if he has seen the infectious disease specialist. Nothing in [facility]. Thanks Kacey Che LPN 07/01/2024 3:59 [...] lung (HCC) [J15.1] Order(s):CT CHEST WO WILLIAMON [[id number]] Order #: [id number] FUTURE Prescriptions as of 07/08/2024 - fluticasone-umeclidin- [...] Status:Closed by TIGRE RESTREPO on 07/01/24 Normal [facility] ECHOon 06-05-2024 CONCLUSIONS: - Exam indication: [...] * * * Final * * * [facility] Echocardiography Report: Transthoracic Echo [facility] Date of service: 06/05/2024 8:31:52 AM Ordering physician: CLAIRE TURNER Indication: Cardiac Murmur Technologist: Elina Sutton [facility] Interpreting physician: Sammy Robledo DO PATIENT: [...] effusion. There is an epicardial fat pad. [facility] Echocardiography Echocardiography Report: Transthoracic Echo [facility] Date of service: 06/05/2024 8:31:52 AM Ordering physician: CLAIRE TURNER Indication: Cardiac Murmur Technologist: Elina Sutton [facility] Interpreting physician: Sammy Robledo DO PATIENT: [...] * * Final * * * CC [employer] [facility] : [id number] [facility] Telephone (MEPRAD) BEATRIS QUINN ([id number]) 1950 Date Time Provider Department 05/28/24 TIGRE [...] CONSULT TO INFECTIOUS DISEASES [9016] Order #: [id number]: 1 FUTURE Prescriptions as of 06/04/2024 - [...] Encounter Status:Closed by [facility] (MEPRAD) BEATRIS QUINN ([id number]) 1950 M Date Time Provider Department 05/27/24 [...] Encounter Status:Closed by TIGRE RESTREPO on 05/27/24 [facility] CT Chest WO contraston 05-15 IMPRESSION: [...] with aspiration. 3. No enlarging lymph nodes. Well Logging Captain: NESTOR Transcribe Date/Time: May 15 2024 4:44P Dictated by : ALIREZA FREDERICK MD This examination was interpreted and the report reviewed and electronically signed by: ALIREZA FREDERICK MD on May 15 2024 4:59PM [facility] DIVISION OF RADIOLOGY * * *Final Report* [...] Limitations: Minimal cardiac pulsation related motion noted. Senior Sharepoint Developer (topogram) images: No additional findings. Lines, tubes, [...] and splenic artery. DIVISION OF RADIOLOGY Provider, [facility] - 05/15/2024 * * *Final Report* [...] Limitations: Minimal cardiac pulsation related motion noted. Senior Sharepoint Developer (topogram) images: No additional findings. Lines, tubes, [...] No enlarging lym (more content not included)... [facility] Radiology Study observation (narrative) [facility] CT Chest WO contrastOrdered By: Ccf Provider on 05-15-2024 [facility] CNCOon 04-24-2024 CNCO Letter Text Normal [facility] CNPNon 04-21-2024 CNPN Telephone (MEPRAD) QUINNBEATRIS Del Valle ([id number]) 1950 M Date Time Provider Department 04/21/24 [...] Encounter Status:Closed by TIGRE RESTREPO on 04/21/24 [facility] MARTHA Telephone (MEPRAD) BEATRIS QUINN ([id number]) 1950 M Date Time Provider Department 04/21/24 TIGRE RESTREPO During your visit today, we recorded the following information about you: Tigre Restrepo MD 04/21/2024 4:18 PM Addendum He has an appointment with cardiology next month at [place] Please can you please try to get [...] Patient has the soonest available appt in [place] right now, he is placed on the waitlist for cancellations. Called and left to give him the central scheduling cardiology number to see which locations have sooner appointments, since we only have access to schedule for [place] Laila Galdamez, Rosaura Melendrez 04/22/2024 4:12 PM Signed PT calling, he was recently seen at [facility] for a heart stent procedure. PT stated he will reach out to that office for clearance and have the office fax over cardiac clearance forms. PT was provided with the fax number to the [facility] office. Cecelia Solo 04/24/2024 9:39 AM Signed [facility] called asking if the cardiac clearance paperwork could be faxed to them at [phone] so the doctor can sign off on [...] 2:47 PM Signed Faxed Clearance letter to [facility] [phone] and received confirmation. Letter was placed in the filing drawer. Will await for Office note and letter back stating if Pt is cleared. Kacey Che LPN 04/29/2024 2:20 PM Addendum Received fax back from [employer]. Medical records and letter was placed in [...] Status:Closed by TIGRE RESTREPO on 04/21/24 Normal [facility] GLUCOSE, BLOOD (POC)on 04-21 Glucose [Mass/Vol] 95 mg/dL 74 - 99 mg/dL [facility] Comment on above: Location:[facility], [address], [place], [address] The Accu-Chek Inform II glucose meter has [...] blood gas instrument) in the above situations. [facility] NM PET/CT SKULL-THIGH INITon 04-21-2024 NM [...] * Uptake Time: 50 minutes * Radiopharmaceutical: Q21-Hpbzshwewisjrqfqhs (FDG) COMPARISON: No previous FDG PET/CT available [...] but commonly physiologic. Ensure colonoscopy is up-to-date. Well Logging Captain: [facility] Transcribe Date/Time: Apr 21 2024 8:08A Dictated by : NANDA SAMSON DO This examination was interpreted and the report reviewed and electronically s (more content not included)... Normal [facility] PET+CT Guidance for localiza tion of [...] but commonly physiologic. Ensure colonoscopy is up-to-date. Well Logging Captain: NESTOR Transcribe Date/Time: Apr 21 2024 8:08A Dictated by : NANDA SAMSON DO This examination was interpreted and the report reviewed and electronically signed by: NANDA SAMSON DO on Apr 21 2024 8:34AM EST [facility] * * *Final Report* * * [...] * Uptake Time: 50 minutes * Radiopharmaceutical: O42-Ermqzqwqgwzheortwt (FDG) COMPARISON: No previous FDG PET/CT available [...] arthroplasty. Soft Tissues: No radiotracer avid lesion. [facility] Provider, [facility] - 04/21/2024 * * *Final Report* * [...] * Uptake Time: 50 minutes * Radiopharmaceutical: Z37-Embaukbpxcxtetesnn (FDG) COMPARISON: No previous FDG PET/CT available [...] is up-to-date. Transcript (more content not included)... [facility] Radiology Study observation (narrative) [facility] PET+CT Guidance for localiza tion of tumor of Skull base to mid-thigh-- W 18F-FDG IVOrdered By: Ccf Provider on 04-21-2024 [facility] CTA Pulmonary arteries for p ulmonary [...] biopsy. 3. No mediastinal or hilar lymphadenopathy. Well Logging Captain: NESTOR Transcribe Date/Time: Mar 27 2024 10:30A Dictated by : GRACIELA ZELAYA MD This examination was interpreted and the report reviewed and electronically signed by: GRACIELA ZELAYA MD on Mar 27 2024 10:46AM [facility] DIVISION OF RADIOLOGY * * *Final Report* * * DATE OF EXAM: Mar 27 2024 10:16AM [facility] 0540 - CT CHEST [...] No additional findings DIVISION OF RADIOLOGY Provider, [facility] - 03/27/2024 * * *Final Report* * * DATE OF EXAM: Mar 27 2024 10:16AM [facility] 0540 - CT CHEST [...] biopsy. 3. No mediastinal or hilar lymphadenopathy. Well Logging Captain: NESTOR Transcribe Date/Time: Mar 27 2024 10:30A Dictated by : GRACIELA ZELAYA MD This examination was interpreted and the report reviewed and electronically signed by: GRACIELA ZELAYA MD on Mar 27 2024 10:46AM EST [facility] Radiology Study observation (narrative) [facility] CTA Pulmonary arteries for p ulmonary embolus W contrast IVOrdered By: Ccf Provider on 03-27-2024 [facility] No Panel Informationon 03-[address] [address] Test Date: 2024-03-24 Pat Name: BEATRIS QUINN Department: Room: Gender: Male [employer]: : 1950 Requested By: Order Number: [id number] Reading MD: Annette Marrero MD Interpretive Statements [...] 14:35:26 EDT by Annette Marrero MD ID: [id number] Name: BEATRIS QUINN Race: White Ht: 64.92 [...] 0.15 66 FIVC (L) 2.96 2.91 -1 NLI08-82 (L/sec) 0.25 0.84 2.02 3.71 12 0.30 [...] 12.2 sec. / LF PULMONARY FUNCTION LAB [facility] SPIROMETRY WITH DILATOR IF O BSTRUCTEDon 03-24-2024 DLCO (ml/min/mmHg) 11.55 ml/min/mmHg [facility] DLCO/VA (ml/min/mmHg/L) 2.66 ml/m in/mmHg /L [facility] DLCOcor (ml/min/mmHg) 12.13 ml/min/mmHg [facility] DVV39-83% POST (L/S) 0.30 L/S [facility] QXA20-97% PRE (L/S) 0.25 L/S [facility] FEV1 PRE (L) 0.68 L [facility] FEV1/FVC POST (%) 22 % [facility] FEV1/FVC PRE (%) 22 % [facility] FEV1_POST (L) 0.73 L [facility] FVC POST (L) 3.31 L [facility] FVC PRE (L) 3.05 L [facility] PEF POST (L/S) 2.43 L/S [facility] PEF PRE (L/S) 2.42 L/S [facility] VA (L) 4.34 L [facility] XR Chest PA and Lateralon IMPRESSION: 1. Nodular opacities in each lung have been thought to most likely be due to infectious etiology.. Neoplasm is not completely excluded. 2. Prominence of lung markings throughout each lung could represent some edema or infiltrate. Although this may be just differences in technique due to different penetrations the films. Well Logging Captain: PSCB Transcribe Date/Time: Mar 24 2024 1:44P Dictated by : JANINE HILLIARD DO This examination was interpreted and the report reviewed and electronically signed by: JANINE HILLIARD DO on Mar 24 2024 2:21PM [facility] * * *Final Report* * * DATE OF EXAM: Mar 24 2024 10:54AM [facility] 5291 - XR CHEST 2V FRONTAL/LAT / [...] cardiomediastinal silhouette. Bones and soft tissues: Unremarkable. [facility] Provider, Za Liu - 03/24/2024 * [...] technique due to different penetrations the films. Well Logging Captain: NESTOR Transcribe Date/Time: Mar 24 2024 1:44P Dictated by : JANINE HILLIARD DO This examination was interpreted and the report reviewed and electronically signed by: JANINE HILLIARD DO on Mar 24 2024 2:21PM EST [facility] Radiology Study observation (narrative) [facility] XR Chest PA and LateralOrder ed By: Ccf Provider on 03-24-2024 [facility] Absolute lymphocyte countOrd ered By: Anirudh Thompson on 12-18-2023 Lymphocytes Auto (Unsp spec) [#/Vol] 0.30 10*3/uL 0.83-4.51 [facility] Automated lymphocyte count a s percentage of total leukocytesOrdered By: Anirudh Thompson on 12-18-2023 Lymphocytes/100 WBC Auto (Unsp spec) 1.9 % 19-41 [facility] Basophil percentageOrdered B y: Anirudh Thompson on 12-18-2023 Basophils/100 WBC (Bld) 0.1 % 0-1 [facility] Chloride [Moles/Vol] 96 mmol/L 98-107 [facility] Eosinophils/100 WBC (Bld) 0.0 % 0-5 [facility] Glucose [Mass/Vol] 193 mg/dL 74-106 [facility] Comment on above: Fasting Glucose resu lt greater than or equal to 126 mg/dL suggests DIABETES MELLITUS per A.D.A. criteria. Hemoglobin (Bld) [Mass/Vol] 14.4 g/dL 13.0-16.5 [facility] Monocytes/100 WBC (Bld) 2.0 % 0-10 [facility] Neutrophils (Bld) [#/Vol] 15.4 10*3/uL 2.0-7.7 [facility] Neutrophils/100 WBC (Bld) 95.4 % 47-70 [facility] Potassium [Moles/Vol] 4.2 mmol/L 3.5-5.1 [facility] Sodium [Moles/Vol] 136 mmol/L 136-145 [facility] WBC (Bld) [#/Vol] 16.2 10*3/uL 4.4-11.0 [facility] Determination of erythrocyte mean corpuscular volume (MCV)Ordered By: Anirudh Thompson on 12-18-2023 MCV (RBC) [Entitic vol] 85.9 fL 80-94 [facility] Erythrocyte distribution wid th ratioOrdered By: Anirudh Thompson on 12-18-2023 Erythrocyte distribution width (RBC) [Ratio] 14.2 % 11.6-14.6 [facility] Erythrocyte distribution wid th standard deviationOrdered By: Anirudh Thompson on 12-18-2023 Erythrocyte distribution width (RBC) [Entitic vol] 44.6 fL 35.1-43.9 [facility] Hematocrit Auto (Bld) [Volum e fraction]Ordered By: Anirudh Thompson on 12-18-2023 Hematocrit (Bld) [Volume fraction] 45.1 % 40-54 [facility] Immature granulocytes/100 WB C Auto (Bld)Ordered By: Anirudh Thompson on 12-18-2023 Immature granulocytes/100 WBC (Bld) 0.600 % 0.0-0.9 [facility] Comment on above: IG% - Immature Granu locytes (promyelocytes, myelocytes and metamyelocytes) > 1% indicates that a LEFT SHIFT is Present. Laboratory - Chemistry and C hemistry - challengeOrdered By: Anirudh Thompson on 12-18-2023 CO2 [Moles/Vol] 35.0 mmol/L 21.0-32.0 [facility] Urea nitrogen/Creatinine [Mass ratio] 27.4 mg/mg 10-20 [facility] Laboratory - Hematology and Cell countsOrdered By: Anirudh Thompson on 12-18-2023 MCH (RBC) [Entitic mass] 27.4 pg 27.0-32.0 [facility] MCHC (RBC) [Mass/Vol] 31.9 g/dL 32-36 [facility] Nucleated RBC/100 WBC (Bld) [Ratio] 0 % 0-5 [facility] Platelet mean volume (Bld) [Entitic vol] 9.7 fL 6.2-12.0 [facility] Platelets (Bld) [#/Vol] 398 10*3/uL 150-450 [facility] No Panel InformationOrdered By: Anirudh Thompson on 12-18-2023 Estimated Creatinine Clearance Calc 63.19 ml/min [facility] Estimated GFR (MDRD) Amer 115 mL/min >60 [facility] Comment on above: GFR Calc Estimated GFR (MDRD) Non-Af Amer 95 mL/min >60 [facility] Comment on above: Non- GFR Calc RBC Auto (Bld) [#/Vol]Ordere d By: Anirudh Thompson on 12-18-2023 RBC (Bld) [#/Vol] 5.25 10*6/uL 4.6-6.2 [facility] Serum or plasma calcium christiana urement (mass/volume)Ordered By: Anirudh Thompson on 12-18-2023 Calcium [Mass/Vol] 9.2 mg/dL 8.5-10.1 [facility] Serum or plasma creatinine m easurement (mass/volume)Ordered By: Anirudh Thompson on 12-18-2023 Creatinine [Mass/Vol] 0.84 mg/dL 0.70-1.30 [facility] Comment on above: The validity of the calculated GFR & GFRAA in patients over 70 years has not been determined. Clinical correlation is essential. Serum or plasma urea nitroge n measurement (mass/volume)Ordered By: Anirudh Thompson on 12-18-2023 Urea nitrogen [Mass/Vol] 23 mg/dL 7-18 [facility] Thin prep Papanicolaou smear with manual screeningOrdered By: Anirudh Donna on 12-18-2023 Thin prep Papanicolaou smear with manual screening 5 5-15 [facility] Absolute lymphocyte countOrd ered By: Migel Iqbal on 12-17-2023 Lymphocytes Auto (Unsp spec) [#/Vol] 0.69 10*3/uL 0.83-4.51 [facility] Activated partial thrombopla stin time (aPTT) in platelet poor plasma by coagulation aOrdered By: Migel Iqbal on 12-17-2023 aPTT Coag (PPP) [Time] 28.0 s 24.1-36.2 [facility] Automated lymphocyte count a s percentage of total leukocytesOrdered By: Migel Iqbal on 12-17-2023 Lymphocytes/100 WBC Auto (Unsp spec) 3.5 % 19-41 [facility] Basophil percentageOrdered B y: Migel Iqbal on 12-17-2023 Basophil percentage 0 SEEN /hpf 0-5 [facility] Basophils/100 WBC (Bld) 0.2 % 0-1 [facility] Bilirubin [Mass/Vol] 0.80 mg/dL 0.20-1.00 [facility] Comment on above: For patients on eltr ombopag therapy, use of Dimension [place] TBIL is not recommended. Chloride [Moles/Vol] 97 mmol/L 98-107 [facility] Eosinophils/100 WBC (Bld) 0.1 % 0-5 [facility] Glucose [Mass/Vol] 104 mg/dL 74-106 [facility] Comment on above: Fasting Glucose resu lt from 100 to 125 mg/dL suggests IMPAIRED HOMEOSTASIS per A.D.A. criteria. Hemoglobin (Bld) [Mass/Vol] 15.3 g/dL 13.0-16.5 [facility] Lactate [Moles/Vol] 0.9 mmol/L 0.4-2.0 [facility] Monocytes/100 WBC (Bld) 9.6 % 0-10 [facility] Neutrophils (Bld) [#/Vol] 17.2 10*3/uL 2.0-7.7 [facility] Neutrophils/100 WBC (Bld) 85.9 % 47-70 [facility] Potassium [Moles/Vol] 4.1 mmol/L 3.5-5.1 [facility] Protein [Mass/Vol] 7.1 g/dL 6.4-8.2 [facility] Sodium [Moles/Vol] 138 mmol/L 136-145 [facility] WBC (Bld) [#/Vol] 20.0 10*3/uL 4.4-11.0 [facility] Bilirubin Test strip Ql (U)O rdered By: Migel Iqbal on 12-17-2023 Bilirubin Ql (U) Negative Negative [facility] Blood manual differential co mment interpretation (narrative result)Ordered By: Migel Iqbal on 12-17-2023 Manual differential comment Geraldo (Bld) [Interp] COMMENT [facility] Comment on above: MONOCYTOSIS. Culture, urineOrdered By: Micky Iqbal on 12-17-2023 Bacteria identified Cx Nom (U) Culture exhibits no growth. [facility] Determination of erythrocyte mean corpuscular volume (MCV)Ordered By: Migel Iqbal on 12-17-2023 MCV (RBC) [Entitic vol] 86.5 fL 80-94 [facility] Erythrocyte distribution wid th ratioOrdered By: Migel Iqbal on 12-17-2023 Erythrocyte distribution width (RBC) [Ratio] 14.2 % 11.6-14.6 [facility] Erythrocyte distribution wid th standard deviationOrdered By: Migel Iqbal on 12-17-2023 Erythrocyte distribution width (RBC) [Entitic vol] 45.5 fL 35.1-43.9 [facility] Gram stain for investigation of transfusion reactionOrdered By: Migel Iqbal on 12-17-2023 Microscopic observation Gram stain Nom (Unsp spec) [facility] Hematocrit Auto (Bld) [Volum e fraction]Ordered By: Migel Iqbal on 12-17-2023 Hematocrit (Bld) [Volume fraction] 47.9 % 40-54 [facility] Immature granulocytes/100 WB C Auto (Bld)Ordered By: Migel Iqbal on 12-17-2023 Immature granulocytes/100 WBC (Bld) 0.700 % 0.0-0.9 [facility] Comment on above: IG% - Immature Granu locytes (promyelocytes, myelocytes and metamyelocytes) > 1% indicates that a LEFT SHIFT is Present. Ketones Test strip Ql (U)Ord ered By: Migel Iqbal on 12-17-2023 Ketones Ql (U) 5 mg/dl Negative [facility] Laboratory - Chemistry and C hemistry - challengeOrdered By: Migel Iqbal on 12-17-2023 Albumin/Globulin [Mass ratio] 0.7 {ratio} 0.9-2.4 [facility] ALP [Catalytic activity/Vol] 86 U/L 45-117 [facility] ALT [Catalytic activity/Vol] 18 U/L 16-61 [facility] CO2 [Moles/Vol] 37.0 mmol/L 21.0-32.0 [facility] Globulin (S) [Mass/Vol] 4.2 g/dL 2.2-4.2 [facility] Urea nitrogen/Creatinine [Mass ratio] 24.5 mg/mg 10-20 [facility] Laboratory - CoagulationOrde red By: Migel Iqbal on 12-17-2023 INR Coag (Bld) [Relative time] 1.0 {INR} [facility] PT Coag (PPP) [Time] 13.0 s 11.7-14.9 [facility] Laboratory - Hematology and Cell countsOrdered By: Migel Iqbal on 12-17-2023 MCH (RBC) [Entitic mass] 27.6 pg 27.0-32.0 [facility] MCHC (RBC) [Mass/Vol] 31.9 g/dL 32-36 [facility] Nucleated RBC/100 WBC (Bld) [Ratio] 0 % 0-5 [facility] Platelet mean volume (Bld) [Entitic vol] 9.8 fL 6.2-12.0 [facility] Platelets (Bld) [#/Vol] 385 10*3/uL 150-450 [facility] Mucus LM Ql (Urine sed)Order ed By: Migel Iqbal on 12-17-2023 Mucus Ql (Urine sed) 0 SEEN /hpf [facility] Nitrite Test strip Ql (U)Ord ered By: Migel Iqbal on 12-17-2023 Nitrite Ql (U) Negative Negative [facility] No Panel InformationOrdered By: Migel Iqbal on 12-17-2023 Urine RBC 0-5 SEEN /hpf 0-5 [facility] Estimated Creatinine Clearance Calc 68.47 ml/min [facility] Estimated GFR (MDRD) Amer 144 mL/min >60 [facility] Comment on above: GFR Calc Estimated GFR (MDRD) Non-Af Amer 119 mL/min >60 [facility] Comment on above: Non- GFR Calc Protein Test strip Ql (U)Ord ered By: Migel Iqbal on 12-17-2023 Protein Ql (U) 30 mg/dl Negative [facility] RBC Auto (Bld) [#/Vol]Ordere d By: Migel Iqbal on 12-17-2023 RBC (Bld) [#/Vol] 5.54 10*6/uL 4.6-6.2 [facility] Review by pathologistOrdered By: Migel Iqbal on 12-17-2023 Pathologist review Geraldo (Unsp spec) [Interp] Xin españa [facility] Pathologist review Geraldo (Unsp spec) [Interp] Reviewed [facility] Comment on above: Previous reported re sult: Xin españa Edited by: SARAH on 12/19/23:0918Neutrophilic leukocytosis.Clinical correlation necessary.Desmond Camacho M.D. 12/19/23 AMENDED REPORT 12/19/23 0918 PATH REV previously reported as: Xin españa Serum or plasma calcium christiana urement (mass/volume)Ordered By: Migel Iqbal on 12-17-2023 Calcium [Mass/Vol] 9.1 mg/dL 8.5-10.1 [facility] Serum or plasma creatinine m easurement (mass/volume)Ordered By: Migel Iqbal on 12-17-2023 Creatinine [Mass/Vol] 0.69 mg/dL 0.70-1.30 [facility] Comment on above: The validity of the calculated GFR & GFRAA in patients over 70 years has not been determined. Clinical correlation is essential. Serum or plasma urea nitroge n measurement (mass/volume)Ordered By: Migel Iqbal on 12-17-2023 Urea nitrogen [Mass/Vol] 17 mg/dL 7-18 [facility] Squamous epithelial cells de tection in urine sediment by light microscopyOrdered By: Migel Iqbal on 12-17-2023 Epithelial cells.squamous LM Ql (Urine sed) 0 SEEN /hpf 0-5 [facility] Thin prep Papanicolaou smear with manual screeningOrdered By: Migel Iqbal on 12-17-2023 Thin prep Papanicolaou smear with manual screening 2.9 g/dL 3.2-5.0 [facility] Thin prep Papanicolaou smear with manual screening 18 U/L 15-37 [facility] Thin prep Papanicolaou smear with manual screening 4 5-15 [facility] Urine blood detectionOrdered By: Migel Iqbal on 12-17-2023 RBC Ql (U) 25 /ul Negative [facility] Urine clarityOrdered By: Hernandez Iqbal on 12-17-2023 Clarity (U) Clear Clear [facility] Urine color determinationOrd ered By: Migel Iqbal on 12-17-2023 Color (U) Yellow Yellow [facility] Urine glucose detectionOrder ed By: Migel Iqbal on 12-17-2023 Glucose Ql (U) Normal mg/dl Normal [facility] Urine leukocyte esterase det ection by dipstickOrdered By: Migel Iqbal on 12-17-2023 Leukocyte esterase Test strip Ql (U) Negative Negative [facility] Urine pHOrdered By: Migel eagle on 12-17-2023 pH (U) 6.5 [pH] 5.0 - 8.0 [facility] Urine sediment bacteria coun t by microscopy (number/high power field)Ordered By: Migel Iqbal on 12-17-2023 Bacteria LM.HPF (Urine sed) [#/Area] 0 /[HPF] None Seen [facility] Urine specific gravity measu rementOrdered By: Migel Iqbal on 12-17-2023 Specific gravity (U) [Rel density] 1.010 1.002-1.030 [facility] Urine urobilinogen measureme ntOrdered By: Migel Iqbal on 12-17-2023 Urobilinogen Ql (U) Normal mg/dl Normal [facility] Basic metabolic 2000 panelon 12-15-2023 Anion gap [Moles/Vol] 5 mmol/L Normal 5-16 [facility] Comment on above: Order Comment: Speci men Type: BLOOD SPECIMEN Ordering Facility: [facility] Address: [address] [place] [address] Performed By: #### 2 4321-2, 42661-0 #### [facility] CLIA [id number] [address] [place] [address] [place] Calcium [Mass/Vol] 9.7 mg/dL Normal 8.5-10.5 [facility] Comment on above: Order Comment: Speci men Type: BLOOD SPECIMEN Ordering Facility: [facility] Address: [address] [place] [address] Performed By: #### 2 4321-2, 74078-5 #### [facility] CLIA [id number] [address] [place] [address] [place] Chloride [Moles/Vol] 102 mmol/L Normal 98-107 [facility] Comment on above: Order Comment: Speci men Type: BLOOD SPECIMEN Ordering Facility: [facility] Address: [address] [place] [address] Performed By: #### 2 4321-2, 52606-4 #### [facility] CLIA [id number] [address] [place], [place] [id number] [place] CO2 [Moles/Vol] 31 mmol/L Normal 21-32 [facility] Comment on above: Order Comment: Speci men Type: BLOOD SPECIMEN Ordering Facility: [facility] Address: [address] [place] [address] Performed By: #### 2 4321-2, 07318-7 #### [facility] CLIA [id number] [address] [place], [place] [address] [place] Creatinine [Mass/Vol] 0.72 mg/dL Normal 0.50-1.40 [facility] Comment on above: Order Comment: Speci men Type: BLOOD SPECIMEN Ordering Facility: [facility] Address: [address] [place] [address] Result Comment: Ruthie ents receiving either N-Acetylcysteine (NAC) or Metamizole prior to venipuncture, may have falsely depressed results. Performed By: #### 2 4321-2, 22430-5 #### [facility] CLIA [id number] [address] [place] [address] [place] Creatinine and Glomerular filtration rate.predicted panel (S/P/Bld) 97 mL/min/1.73m??? Normal >=60 [facility] Comment on above: Order Comment: Haylee russo Type: BLOOD SPECIMEN Ordering Facility: [facility] Address: [address] [place] [address] Result Comment: Lata mated Glomerular Filtration Rate [...] actual GFR. Performed By: #### 2 4321-2, 90905-6 #### [facility] CLIA [id number] [address] [place], [place] [address] [place] Glucose [Mass/Vol] 197 mg/dL High 70-100 [facility] Comment on above: Order Comment: Haylee russo Type: BLOOD SPECIMEN Ordering Facility: [facility] Address: [address] [place] [address] Result Comment: The [place] [employer] (ADA) provides guidance for cutoff [...] Standards of Medical Care in Diabetes 2016, [place] [employer]. Diabetes Care. 2016.39(Suppl 1). Results may be falsely elevated after the administration of Sulfapyridine. Results may be falsely depressed after the administration of Sulfasalazine. Performed By: #### 2 4321-2, 58240-2 #### [facility] CLIA [id number] [address] [place] [address] [place] Potassium [Moles/Vol] 4.2 mmol/L Normal 3.5-5.1 [facility] Comment on above: Order Comment: Speci men Type: BLOOD SPECIMEN Ordering Facility: [facility] Address: [address] [place] [address] Performed By: #### 2 4321-2, 32198-7 #### [facility] CLIA [id number] [address] [place] [address] [place] Sodium [Moles/Vol] 138 mmol/L Normal 136-145 [facility] Comment on above: Order Comment: Speci men Type: BLOOD SPECIMEN Ordering Facility: [facility] Address: [address] [place] [address] Performed By: #### 2 4321-2, 55272-5 #### [facility] CLIA [id number] [address] [place] [address] [place] Urea nitrogen [Mass/Vol] 19 mg/dL Normal 7-26 [facility] Comment on above: Order Comment: Speci men Type: BLOOD SPECIMEN Ordering Facility: [facility] Address: [address] [place] [address] Performed By: #### 2 4321-2, 49574-9 #### [facility] CLIA [id number] [address] [place] [address] [place] CBC W Auto Differential pane l (Bld)on 12-15-2023 Basophils (Bld) [#/Vol] 10*3/uL Normal <0.11 [facility] Comment on above: Order Comment: Speci men Type: BLOOD SPECIMEN Ordering Facility: [facility] Address: [address] [place] [address] Performed By: #### 5 7021-8 #### [facility] CLIA [id number] [address] [place] [address] [place] Basophils/100 WBC (Bld) 0.1 % Normal [facility] Comment on above: Order Comment: Speci men Type: BLOOD SPECIMEN Ordering Facility: [facility] Address: [address] [place] [address] Performed By: #### 5 7021-8 #### [facility] CLIA [id number] [address] [place] [address] [place] Differential cell count method Nom (Bld) Auto Normal [facility] Comment on above: Order Comment: Speci men Type: BLOOD SPECIMEN Ordering Facility: [facility] Address: [address] [place] [address] Performed By: #### 5 7021-8 #### [facility] CLIA [id number] [address] [place] [address] [place] Eosinophils (Bld) [#/Vol] 10*3/uL Normal <0.46 [facility] Comment on above: Order Comment: Speci men Type: BLOOD SPECIMEN Ordering Facility: [facility] Address: [address] [place] [address] Performed By: #### 5 7021-8 #### [facility] CLIA [id number] [address] [place] [address] [place] Eosinophils/100 WBC (Bld) 0.0 % Normal [facility] Comment on above: Order Comment: Speci men Type: BLOOD SPECIMEN Ordering Facility: [facility] Address: [address] [place] [address] Performed By: #### 5 7021-8 #### [facility] CLIA [id number] [address] [place] [address] [place] Erythrocyte distribution width (RBC) [Ratio] 14.3 % Normal 11.5-15.0 [facility] Comment on above: Order Comment: Speci men Type: BLOOD SPECIMEN Ordering Facility: [facility] Address: [address] [place] [address] Performed By: #### 5 7021-8 #### [facility] CLIA [id number] [address] [place] [address] [place] Hematocrit (Bld) [Volume fraction] 42.3 % Normal 39.0-51.0 [facility] Comment on above: Order Comment: Speci men Type: BLOOD SPECIMEN Ordering Facility: [facility] Address: [address] [place] [address] Performed By: #### 5 7021-8 #### [facility] LABORATORY CLIA [id number] [address] [place] [address] [place] Hemoglobin (Bld) [Mass/Vol] 14.0 g/dL Normal 13.0-17.0 [facility] Comment on above: Order Comment: Speci men Type: BLOOD SPECIMEN Ordering Facility: [facility] Address: [address] [place] [address] Performed By: #### 5 7021-8 #### [facility] CLIA [id number] [address] [place] [address] [place] Immature granulocytes (Bld) [#/Vol] 0.08 10*3/uL Normal <0.10 [facility] Comment on above: Order Comment: Speci men Type: BLOOD SPECIMEN Ordering Facility: [facility] Address: [address] [place] [address] Performed By: #### 5 7021-8 #### [facility] CLIA [id number] [address] [place] [address] [place] Immature granulocytes/100 WBC (Bld) 0.4 % Normal [facility] Comment on above: Order Comment: Speci men Type: BLOOD SPECIMEN Ordering Facility: [facility] Address: [address] [place] [address] Performed By: #### 5 7021-8 #### [facility] CLIA [id number] [address] [place] [address] [place] Lymphocytes (Bld) [#/Vol] 0.40 10*3/uL Low 1.00-4.00 [facility] Comment on above: Order Comment: Speci men Type: BLOOD SPECIMEN Ordering Facility: [facility] Address: [address] [place] [address] Performed By: #### 5 7021-8 #### [facility] CLIA [id number] [address] [place] [address] [place] Lymphocytes/100 WBC (Bld) 2.1 % Normal [facility] Comment on above: Order Comment: Speci men Type: BLOOD SPECIMEN Ordering Facility: [facility] Address: [address] [place] [address] Performed By: #### 5 7021-8 #### [facility] CLIA [id number] [address] [place] [address] [place] MCH (RBC) [Entitic mass] 28.2 pg Normal 26.0-34.0 [facility] Comment on above: Order Comment: Speci men Type: BLOOD SPECIMEN Ordering Facility: [facility] Address: [address] [place] [address] Performed By: #### 5 7021-8 #### [facility] CLIA [id number] [address] [place] [address] [place] MCHC (RBC) [Mass/Vol] 33.1 g/dL Normal 30.5-36.0 [facility] Comment on above: Order Comment: Speci men Type: BLOOD SPECIMEN Ordering Facility: [facility] Address: [address] [place] [address] Performed By: #### 5 7021-8 #### [facility] CLIA [id number] [address] [place] [address] [place] MCV (RBC) [Entitic vol] 85.3 fL Normal 80.0-100.0 [facility] Comment on above: Order Comment: Speci men Type: BLOOD SPECIMEN Ordering Facility: [facility] Address: [address] [place] [address] Performed By: #### 5 7021-8 #### [facility] CLIA [id number] [address] [place] [address] [place] Monocytes (Bld) [#/Vol] 0.86 10*3/uL Normal <0.87 [facility] Comment on above: Order Comment: Speci men Type: BLOOD SPECIMEN Ordering Facility: [facility] Address: [address] [place] [address] Performed By: #### 5 7021-8 #### [facility] CLIA [id number] [address] [place] [address] [place] Monocytes/100 WBC (Bld) 4.6 % Normal [facility] Comment on above: Order Comment: Speci men Type: BLOOD SPECIMEN Ordering Facility: [facility] Address: [address] [place] [address] Performed By: #### 5 7021-8 #### [facility] CLIA [id number] [address] [place] [address] [place] Neutrophils (Bld) [#/Vol] 17.42 10*3/uL High 1.45-7.50 [facility] Comment on above: Order Comment: Speci men Type: BLOOD SPECIMEN Ordering Facility: [facility] Address: [address] [place] [address] Performed By: #### 5 7021-8 #### [facility] CLIA [id number] [address] [place] [address] [place] Neutrophils/100 WBC (Bld) 92.8 % Normal [facility] Comment on above: Order Comment: Speci men Type: BLOOD SPECIMEN Ordering Facility: [facility] Address: [address] [place] [address] Performed By: #### 5 7021-8 #### [facility] CLIA [id number] [address] [place] [address] [place] Nucleated RBC (Bld) [#/Vol] 10*3/uL Normal <0.01 [facility] Comment on above: Order Comment: Speci men Type: BLOOD SPECIMEN Ordering Facility: [facility] Address: [address] [id number] Performed By: #### 5 7021-8 #### [facility] CLIA [id number] [address] [place] [address] [place] Nucleated RBC/100 WBC (Bld) [Ratio] 0.0 /100 WBC Normal [facility] Comment on above: Order Comment: Speci men Type: BLOOD SPECIMEN Ordering Facility: [facility] Address: [address] [place] [address] Performed By: #### 5 7021-8 #### [facility] CLIA [id number] [address] [place] [address] [place] Platelet mean volume (Bld) [Entitic vol] 9.9 fL Normal 9.0-12.7 [facility] Comment on above: Order Comment: Speci men Type: BLOOD SPECIMEN Ordering Facility: [facility] Address: [address] [place] [address] Performed By: #### 5 7021-8 #### [facility] CLIA [id number] [address] [place] [address] [place] Platelets (Bld) [#/Vol] 258 10*3/uL Normal 150-400 [facility] Comment on above: Order Comment: Speci men Type: BLOOD SPECIMEN Ordering Facility: [facility] Address: [facility] [place] [address] Performed By: #### 5 7021-8 #### [facility] CLIA [id number] [address] [place] [address] [place] RBC (Bld) [#/Vol] 4.96 10*6/uL Normal 4.20-6.00 [facility] Comment on above: Order Comment: Speci men Type: BLOOD SPECIMEN Ordering Facility: [facility] Address: [address] [place] [address] [place] [address] Performed By: #### 5 7021-8 #### [facility] CLIA [id number] [address] [place] [address] [place] WBC (Bld) [#/Vol] 18.78 10*3/uL High 3.70-11.00 [facility] Comment on above: Order Comment: Speci men Type: BLOOD SPECIMEN Ordering Facility: [facility] Address: [address] [place] [address] Performed By: #### 5 7021-8 #### [facility] CLIA [id number] [address] [employer] [address] ECG COMPLETEon 12-15-2023 ECG COMPLETE Ventricular Rate : 9 1 BPM Atrial Rate : 91 BPM P-R Interval : 126 ms QRS Duration : 76 ms Q-T Interval : 354 ms QTC Calculation(Bazett) : 435 ms Calculated P Alto : 81 degrees Calculated R Alto : 79 degrees Calculated T Alto : 78 degrees Sinus rhythm with Premature atrial complexes Otherwise normal ECG No previous ECGs available Confirmed by BRIDGETT IZAGUIRRE MD ([id number]) on 12/15/2023 9:33:58 AM NAME : BEATRIS QUINN PID : [id number] : 1950 Gender : Male Race : ORD : [id number] Procedure Date : Dec 14 2023 22:29:36 Edit Date : Dec 15 2023 09:34:01 Diagnosis: Sinus rhythm with Premature atrial complexes Otherwise normal ECG No previous ECGs available Confirmed by BRIDGETT IZAGUIRRE MD ([id number]) on 12/15/2023 9:33:58 AM Test Reason : STAT Location : 0 : ED EDH12 Overread By : BRIDGETT IZAGUIRRE MD Edited By : BRIDGETT IZAGUIRRE MD Referred By : , Acquired by : STEVE, [facility] ED NOTEon 12-15-2023 ED NOTE HNO ID: [id number] Author: MICAELA HILTON RN Service: Emergency Medicine Author Type: Registered Nurse Type: ED Notes Filed: 12/15/2023 00:31 Note Text: Pt ambulated around nursing station. Pt started having expiratory wheezing with wet cough and increased general weakness. Pt able to make complete [place] around ED1. Ppt remained between 90-92%RA during ambulation. Meli PAC notified. [facility] ED NOTE HNO ID: [id number] Author: MICAELA HILTON RN Service: Emergency Medicine [...] issues with the coughing, weakness, and SOB. [facility] ED NOTE HNO ID: [id number] Author: SUNDAR MOSQUEDA LPN Service: ? Author Type: LICENSED NURSE Type: ED Notes Filed: 12/14/2023 22:38 Note Text: Bed: 12-ED Expected date: Expected time: Means of arrival: Comments: [facility] ED PROV NOTEon 12-15-2023 ED PROV NOTE HNO ID: [id number] Author: CLAIRE CASE PA-C Service: ? Author Type: Physician Drywall Installer Type: ED Provider Notes Filed: 12/15/2023 01:54 [...] few days later, he went to the [place] emergency department and was evaluated there. He [...] Narrative: This (more content not included)... Normal [facility] ED Triage Noteon 12-15-2023 ED Triage Note HNO ID: [id number] Author: IVAN DO PA-C Service: ? Author Type: Physician Drywall Installer Type: ED Triage Notes Filed: 12/14/2023 22:28 [...] injection (SOLU-Medrol) SIGNATURE: Ivan Do PA-C Normal [facility] FLUABV+SARS-CoV-2+RSV Pnl Re sp JELENA+probeon 12-15-2023 FLUABV+SARS-CoV-2+RSV Pnl Resp JELENA+probe COVID 19 RESULT: Not detected The method used is RT-PCR or an equivalent NAAT method. Reference Range(the expected result in uninfected individuals): Not detected INFLUENZA A PCR: Detected INFLUENZA B PCR: Not detected RSV PCR: Not detected Abnormal [facility] Comment on above: Performed By: #### 9 5941-1 #### [facility] CLIA [id number] [address] [place] [address] [place] HIGH SENSITIVITY TROPONIN Io n 12-15-2023 Tropinin I.cardiac panel High sensitivity method 14.2 pg/mL Normal 0.0-54.0 [facility] Comment on above: Order Comment: Haylee russo Type: BLOOD SPECIMEN Ordering Facility: [facility] Address: [address] [place] [address] Result Comment: This assay uses different antibodies than our current assay, and assays, even by the same end user support specialist may recognize different regions of the antibody and cannot be used interchangeably. Expect results of this assay to run higher than the previous assay. Performed By: #### H STROP #### [facility] CLIA [id number] [address] [place] [address] [place] Procalcitonin SerPl-mCncon 0 12-15-2023 Procalcitonin [Mass/Vol] ng/mL Normal 0.00-0.50 [facility] Comment on above: Order Comment: Haylee russo Type: BLOOD SPECIMEN Ordering Facility: [facility] Address: [address] [place] [address] Result Comment: PCT Concentration Interpretation PCT <=0.1 [...] septic shock. Performed By: #### 2 4321-2, 78399-0 #### [facility] CLIA [id number] [address] [place] XR CHEST 2V [...] rib fracture. IMPRESSION: No acute radiographic abnormality. Well Logging Captain: PSCB Transcribe Date/Time: Dec 15 2023 1:22A Dictated by : PAT FINN MD This examination was interpreted and the report reviewed and electronically signed by: PAT FINN MD on Dec 15 2023 1:24AM EST [id number] Normal [facility] Absolute lymphocyte countOrd ered By: Robin Montenegro on 12-11-2023 Lymphocytes Auto (Unsp spec) [#/Vol] 1.05 10*3/uL 0.83-4.51 [facility] Automated lymphocyte count a s percentage of total leukocytesOrdered By: Robin Montenegro on 12-11-2023 Lymphocytes/100 WBC Auto (Unsp spec) 17.2 % 19-41 [facility] Basophil percentageOrdered B y: Robin Montenegro on 12-11-2023 Basophils/100 WBC (Bld) 0.5 % 0-1 [facility] Chloride [Moles/Vol] 105 mmol/L 98-107 [facility] Eosinophils/100 WBC (Bld) 2.6 % 0-5 [facility] Glucose [Mass/Vol] 100 mg/dL 74-106 [facility] Comment on above: Fasting Glucose resu lt from 100 to 125 mg/dL suggests IMPAIRED HOMEOSTASIS per A.D.A. criteria. Hemoglobin (Bld) [Mass/Vol] 13.2 g/dL 13.0-16.5 [facility] Monocytes/100 WBC (Bld) 12.3 % 0-10 [facility] Neutrophils (Bld) [#/Vol] 4.1 10*3/uL 2.0-7.7 [facility] Neutrophils/100 WBC (Bld) 67.2 % 47-70 [facility] Potassium [Moles/Vol] 4.0 mmol/L 3.5-5.1 [facility] Sodium [Moles/Vol] 138 mmol/L 136-145 [facility] WBC (Bld) [#/Vol] 6.1 10*3/uL 4.4-11.0 [facility] Determination of erythrocyte mean corpuscular volume (MCV)Ordered By: Robin Montenegro on 12-11-2023 MCV (RBC) [Entitic vol] 87.4 fL 80-94 [facility] Erythrocyte distribution wid th ratioOrdered By: Robin Montenegro on 12-11-2023 Erythrocyte distribution width (RBC) [Ratio] 14.6 % 11.6-14.6 [facility] Erythrocyte distribution wid th standard deviationOrdered By: Robin Montenegro on 12-11-2023 Erythrocyte distribution width (RBC) [Entitic vol] 46.9 fL 35.1-43.9 [facility] Hematocrit Auto (Bld) [Volum e fraction]Ordered By: Robin Montenegro on 12-11-2023 Hematocrit (Bld) [Volume fraction] 40.3 % 40-54 [facility] Immature granulocytes/100 WB C Auto (Bld)Ordered By: Robin Montenegro on 12-11-2023 Immature granulocytes/100 WBC (Bld) 0.200 % 0.0-0.9 [facility] Comment on above: IG% - Immature Granu locytes (promyelocytes, myelocytes and metamyelocytes) > 1% indicates that a LEFT SHIFT is Present. Laboratory - Chemistry and C hemistry - challengeOrdered By: Robin Montenegro on 12-11-2023 CO2 [Moles/Vol] 30.0 mmol/L 21.0-32.0 [facility] Urea nitrogen/Creatinine [Mass ratio] 18.3 mg/mg 10-20 [facility] Laboratory - Hematology and Cell countsOrdered By: Robin Montenegro on 12-11-2023 MCH (RBC) [Entitic mass] 28.6 pg 27.0-32.0 [facility] MCHC (RBC) [Mass/Vol] 32.8 g/dL 32-36 [facility] Nucleated RBC/100 WBC (Bld) [Ratio] 0 % 0-5 [facility] Platelet mean volume (Bld) [Entitic vol] 9.4 fL 6.2-12.0 [facility] Platelets (Bld) [#/Vol] 191 10*3/uL 150-450 [facility] Laboratory - Microbiology an d Antimicrobial susceptibilityOrdered By: Robin Montenegro on 12-11-2023 SARS-CoV-2 (COVID-19) RNA JELENA+probe Ql (Unsp spec) Influenzae A [facility] No Panel InformationOrdered By: Robin Montenegro on 12-11-2023 Estimated Creatinine Clearance Calc 66.92 ml/min [facility] Estimated GFR (MDRD) Amer 110 mL/min >60 [facility] Comment on above: GFR Calc Estimated GFR (MDRD) Non-Af Amer 91 mL/min >60 [facility] Comment on above: Non- GFR Calc Troponin I High Sensitivity 10 pg/mL 3.0-78.0 [facility] Comment on above: Please Note: New [place]ana t Units and Gender Specific Reference Ranges. For more information see Policy Stat Procedure [place] High Sensitivity Troponin (TNIH) and attachments. RBC Auto (Bld) [#/Vol]Ordere d By: Robin Montenegro on 12-11-2023 RBC (Bld) [#/Vol] 4.61 10*6/uL 4.6-6.2 [facility] Serum or plasma calcium christiana urement (mass/volume)Ordered By: Robin Montenegro on 12-11-2023 Calcium [Mass/Vol] 8.7 mg/dL 8.5-10.1 [facility] Serum or plasma creatinine m easurement (mass/volume)Ordered By: Robin Montenegro on 12-11-2023 Creatinine [Mass/Vol] 0.87 mg/dL 0.70-1.30 [facility] Comment on above: The validity of the calculated GFR & GFRAA in patients over 70 years has not been determined. Clinical correlation is essential. Serum or plasma urea nitroge n measurement (mass/volume)Ordered By: Robin Montenegro on 12-11-2023 Urea nitrogen [Mass/Vol] 16 mg/dL 7-18 [facility] Thin prep Papanicolaou smear with manual screeningOrdered By: Robin Montenegro on 12-11-2023 Thin prep Papanicolaou smear with manual screening 3 5-15 [facility] Absolute lymphocyte countOrd ered By: Dean Salas on 10-29-2023 Lymphocytes Auto (Unsp spec) [#/Vol] 0.85 10*3/uL 0.83-4.51 [facility] Automated lymphocyte count a s percentage of total leukocytesOrdered By: Dean Salas on 10-29-2023 Lymphocytes/100 WBC Auto (Unsp spec) 8.0 % 19-41 [facility] Basophil percentageOrdered B y: Dean Salas on 10-29-2023 Basophils/100 WBC (Bld) 0.4 % 0-1 [facility] Chloride [Moles/Vol] 107 mmol/L 98-107 [facility] Eosinophils/100 WBC (Bld) 2.2 % 0-5 [facility] Glucose [Mass/Vol] 126 mg/dL 74-106 [facility] Comment on above: Fasting Glucose resu lt greater than or equal to 126 mg/dL suggests DIABETES MELLITUS per A.D.A. criteria. Hemoglobin (Bld) [Mass/Vol] 12.6 g/dL 13.0-16.5 [facility] Monocytes/100 WBC (Bld) 12.1 % 0-10 [facility] Neutrophils (Bld) [#/Vol] 8.1 10*3/uL 2.0-7.7 [facility] Neutrophils/100 WBC (Bld) 76.8 % 47-70 [facility] Potassium [Moles/Vol] 3.8 mmol/L 3.5-5.1 [facility] Sodium [Moles/Vol] 139 mmol/L 136-145 [facility] WBC (Bld) [#/Vol] 10.6 10*3/uL 4.4-11.0 [facility] Determination of erythrocyte mean corpuscular volume (MCV)Ordered By: Dean Salas on 10-29-2023 MCV (RBC) [Entitic vol] 86.7 fL 80-94 [facility] Erythrocyte distribution wid th ratioOrdered By: Dean Salas on 10-29-2023 Erythrocyte distribution width (RBC) [Ratio] 13.8 % 11.6-14.6 [facility] Erythrocyte distribution wid th standard deviationOrdered By: Dean Salas on 10-29-2023 Erythrocyte distribution width (RBC) [Entitic vol] 44.2 fL 35.1-43.9 [facility] Hematocrit Auto (Bld) [Volum e fraction]Ordered By: Dean Salas on 10-29-2023 Hematocrit (Bld) [Volume fraction] 39.0 % 40-54 [facility] Immature granulocytes/100 WB C Auto (Bld)Ordered By: Dean Salas on 10-29-2023 Immature granulocytes/100 WBC (Bld) 0.500 % 0.0-0.9 [facility] Comment on above: IG% - Immature Granu locytes (promyelocytes, myelocytes and metamyelocytes) > 1% indicates that a LEFT SHIFT is Present. Laboratory - Chemistry and C hemistry - challengeOrdered By: Dean Salas on 10-29-2023 CO2 [Moles/Vol] 29.0 mmol/L 21.0-32.0 [facility] Natriuretic peptide B (Bld) [Mass/Vol] 39.3 pg/mL 0-100 [facility] Urea nitrogen/Creatinine [Mass ratio] 18.6 mg/mg 10-20 [facility] Laboratory - Hematology and Cell countsOrdered By: Dean Salas on 10-29-2023 MCH (RBC) [Entitic mass] 28.0 pg 27.0-32.0 [facility] MCHC (RBC) [Mass/Vol] 32.3 g/dL 32-36 [facility] Nucleated RBC/100 WBC (Bld) [Ratio] 0 % 0-5 [facility] Platelet mean volume (Bld) [Entitic vol] 9.1 fL 6.2-12.0 [facility] Platelets (Bld) [#/Vol] 282 10*3/uL 150-450 [facility] No Panel InformationOrdered By: Dean Salas on 10-29-2023 Estimated Creatinine Clearance Calc 67.54 ml/min [facility] Estimated GFR (MDRD) Amer 112 mL/min >60 [facility] Comment on above: GFR Calc Estimated GFR (MDRD) Non-Af Amer 92 mL/min >60 [facility] Comment on above: Non- GFR Calc Troponin I High Sensitivity 8 pg/mL 3.0-78.0 [facility] Comment on above: Please Note: New Lana t Units and Gender Specific Reference Ranges. For more information see Policy Stat Procedure [place] High Sensitivity Troponin (TNIH) and attachments. RBC Auto (Bld) [#/Vol]Ordere d By: Dean Salas on 10-29-2023 RBC (Bld) [#/Vol] 4.50 10*6/uL 4.6-6.2 [facility] Serum or plasma calcium christiana urement (mass/volume)Ordered By: Dean Salas on 10-29-2023 Calcium [Mass/Vol] 9.3 mg/dL 8.5-10.1 [facility] Serum or plasma creatinine m easurement (mass/volume)Ordered By: Dean Salas on 10-29-2023 Creatinine [Mass/Vol] 0.86 mg/dL 0.70-1.30 [facility] Comment on above: The validity of the calculated GFR & GFRAA in patients over 70 years has not been determined. Clinical correlation is essential. Serum or plasma urea nitroge n measurement (mass/volume)Ordered By: Dean Salas on 10-29-2023 Urea nitrogen [Mass/Vol] 16 mg/dL 7-18 [facility] Thin prep Papanicolaou smear with manual screeningOrdered By: Dean Salas on 10-29-2023 Thin prep Papanicolaou smear with manual screening 3 5-15 [facility] Absolute lymphocyte counton 08-29-2022 Lymphocytes Auto (Unsp spec) [#/Vol] 0.30 10*3/uL 0.83-4.51 [facility] Work Phone: Basophil percentageon 2022 Basophils/100 WBC (Bld) 0.1 % 0-1 [facility] Work Phone: Bilirubin [Mass/Vol] 0.50 mg/dL 0.20-1.00 [facility] Work Phone: Comment on above: For patients on eltr ombopag therapy, use of Dimension [place] TBIL is not recommended. Chloride [Moles/Vol] 100 mmol/L 98-107 [facility] Work Phone: Eosinophils/100 WBC (Bld) 0.0 % 0-5 [facility] Work Phone: Glucose [Mass/Vol] 185 mg/dL 74-106 [facility] Work Phone: Comment on above: Fasting Glucose resu lt greater than or equal to 126 mg/dL suggests DIABETES MELLITUS per A.D.A. criteria. Neutrophils (Bld) [#/Vol] 10.8 10*3/uL 2.0-7.7 [facility] Work Phone: Neutrophils/100 WBC (Bld) 93.1 % 47-70 [facility] Work Phone: Potassium [Moles/Vol] 3.9 mmol/L 3.5-5.1 [facility] Work Phone: Protein [Mass/Vol] 6.4 g/dL 6.4-8.2 [facility] Work Phone: Sodium [Moles/Vol] 137 mmol/L 136-145 [facility] Work Phone: WBC (Bld) [#/Vol] 11.6 10*3/uL 4.4-11.0 [facility] Work Phone: Blood erythrocytes count (nu mber/volume)on 08-29-2022 RBC (Bld) [#/Vol] 4.66 10*6/uL 4.6-6.2 [facility] Work Phone: [phone] Blood hemoglobin measurement (mass/volume)on 08-29-2022 Hemoglobin (Bld) [Mass/Vol] 12.9 g/dL 13.0-16.5 [facility] Work Phone: [phone] Blood lymphocytes/100 leukoc yteson 08-29-2022 Lymphocytes/100 WBC (Bld) 2.6 % 19-41 [facility] Work Phone: [phone] Blood manual differential co mment interpretation (narrative result)on 08-29-2022 Manual differential comment Geraldo (Bld) [Interp] SCANNED [facility] Work Phone: Comment on above: LYMPHOPENIA NOTED Blood monocytes/100 leukocyt eson 08-29-2022 Monocytes/100 WBC (Bld) 3.5 % 0-10 [facility] Work Phone: [phone] Blood platelet mean volumeon 08-29-2022 Platelet mean volume (Bld) [Entitic vol] 9.6 fL 6.2-12.0 [facility] Work Phone: [phone] Determination of erythrocyte mean corpuscular volume (MCV)on 08-29-2022 MCV (RBC) [Entitic vol] 86.3 fL 80-94 [facility] Work Phone: [phone] Hematocrit Auto (Bld) [Volum e fraction]on 08-29-2022 Hematocrit (Bld) [Volume fraction] 40.2 % 40-54 [facility] Work Phone: [phone] Laboratory - Chemistry and C hemistry - challengeon 08-29-2022 ALP [Catalytic activity/Vol] 81 U/L 45-117 [facility] Work Phone: [phone] ALT [Catalytic activity/Vol] 24 U/L 16-61 [facility] Work Phone: [phone] CO2 [Moles/Vol] 31.0 mmol/L 21.0-32.0 [facility] Work Phone: [phone] Globulin (S) [Mass/Vol] 3.7 g/dL 2.2-4.2 [facility] Work Phone: [phone] Urea nitrogen/Creatinine [Mass ratio] 25.9 mg/mg 10-20 [facility] Work Phone: [phone] Laboratory - Hematology and Cell countson 08-29-2022 Erythrocyte distribution width (RBC) [Entitic vol] 45.0 fL 35.1-43.9 [facility] Work Phone: [phone] Erythrocyte distribution width (RBC) [Ratio] 14.3 % 11.6-14.6 [facility] Work Phone: [phone] Immature granulocytes/100 WBC (Bld) 0.700 % 0.0-0.9 [facility] Work Phone: [phone] Comment on above: IG% - Immature Granu locytes (promyelocytes, myelocytes and metamyelocytes) > 1% indicates that a LEFT SHIFT is Present. MCH (RBC) [Entitic mass] 27.7 pg 27.0-32.0 [facility] Work Phone: [phone] Nucleated RBC/100 WBC (Bld) [Ratio] 0 % 0-5 [facility] Work Phone: [phone] MCHC Auto (RBC) [Mass/Vol]on 08-29-2022 MCHC (RBC) [Mass/Vol] 32.1 g/dL 32-36 [facility] Work Phone: [phone] No Panel Informationon 08-29 Estimated Creatinine Clearance Calc 67.41 ml/min [facility] Work Phone: [phone] Estimated GFR (MDRD) Amer 108 mL/min >60 [facility] Work Phone: [phone] Comment on above: GFR Calc Estimated GFR (MDRD) Non-Af Amer 90 mL/min >60 [facility] Work Phone: [phone] Comment on above: Non- GFR Calc Platelets bldon 08-29-2022 Platelets (Bld) [#/Vol] 330 10*3/uL 150-450 [facility] Work Phone: [phone] Serum or plasma albumin christiana urement (mass/volume)on 08-29-2022 Albumin [Mass/Vol] 2.7 g/dL 3.2-5.0 [facility] Work Phone: [phone] Serum or plasma albumin/glob ulin mass ratioon 08-29-2022 Albumin/Globulin [Mass ratio] 0.7 {ratio} 0.9-2.4 [facility] Work Phone: [phone] Serum or plasma calcium christiana urement (mass/volume)on 08-29-2022 Calcium [Mass/Vol] 8.7 mg/dL 8.5-10.1 [facility] Work Phone: [phone] Serum or plasma creatinine m easurement (mass/volume)on 08-29-2022 Creatinine [Mass/Vol] 0.89 mg/dL 0.70-1.30 [facility] Work Phone: Comment on above: The validity of the calculated GFR & GFRAA in patients over 70 years has not been determined. Clinical correlation is essential. Serum or plasma urea nitroge n measurement (mass/volume)on 08-29-2022 Urea nitrogen [Mass/Vol] 23 mg/dL 7-18 [facility] Work Phone: Thin prep Papanicolaou smear with manual screeningon 08-29-2022 Thin prep Papanicolaou smear with manual screening 15 U/L 15-37 [facility] Work Phone: [phone] Thin prep Papanicolaou smear with manual screening 6 5-15 [facility] Work Phone: [phone] Absolute lymphocyte counton 08-26-2022 Lymphocytes Auto (Unsp spec) [#/Vol] 0.81 10*3/uL 0.83-4.51 [facility] Work Phone: Basophil percentageon 2022 Chloride [Moles/Vol] 99 mmol/L 98-107 [facility] Work Phone: [phone] Glucose [Mass/Vol] 156 mg/dL 74-106 [facility] Work Phone: [phone] Comment on above: Fasting Glucose resu lt greater than or equal to 126 mg/dL suggests DIABETES MELLITUS per A.D.A. criteria. Potassium [Moles/Vol] 3.8 mmol/L 3.5-5.1 [facility] Work Phone: Sodium [Moles/Vol] 136 mmol/L 136-145 [facility] Work Phone: Lactate [Moles/Vol] 1.8 mmol/L 0.4-2.0 [facility] Work Phone: Basophils/100 WBC (Bld) 0.1 % 0-1 [facility] Work Phone: Eosinophils/100 WBC (Bld) 0.0 % 0-5 [facility] Work Phone: Neutrophils (Bld) [#/Vol] 16.6 10*3/uL 2.0-7.7 [facility] Work Phone: Neutrophils/100 WBC (Bld) 87.1 % 47-70 [facility] Work Phone: WBC (Bld) [#/Vol] 19.1 10*3/uL 4.4-11.0 [facility] Work Phone: Blood erythrocytes count (nu mber/volume)on 08-26-2022 RBC (Bld) [#/Vol] 5.46 10*6/uL 4.6-6.2 [facility] Work Phone: Blood hemoglobin measurement (mass/volume)on 08-26-2022 Hemoglobin (Bld) [Mass/Vol] 15.4 g/dL 13.0-16.5 [facility] Work Phone: Blood lymphocytes/100 leukoc yteson 08-26-2022 Lymphocytes/100 WBC (Bld) 4.3 % 19-41 [facility] Work Phone: Blood manual differential co mment interpretation (narrative result)on 08-26-2022 Manual differential comment Geraldo (Bld) [Interp] SCANNED [facility] Work Phone: Comment on above: BANDS NOTED Blood monocytes/100 leukocyt eson 08-26-2022 Monocytes/100 WBC (Bld) 8.1 % 0-10 [facility] Work Phone: [phone] Blood platelet mean volumeon 08-26-2022 Platelet mean volume (Bld) [Entitic vol] 9.4 fL 6.2-12.0 [facility] Work Phone: [phone] Determination of erythrocyte mean corpuscular volume (MCV)on 08-26-2022 MCV (RBC) [Entitic vol] 87.0 fL 80-94 [facility] Work Phone: [phone] Hematocrit Auto (Bld) [Volum e fraction]on 08-26-2022 Hematocrit (Bld) [Volume fraction] 47.5 % 40-54 [facility] Work Phone: [phone] Laboratory - Chemistry and C hemistry - challengeon 08-26-2022 CO2 [Moles/Vol] 33.0 mmol/L 21.0-32.0 [facility] Work Phone: [phone] Urea nitrogen/Creatinine [Mass ratio] 35.3 mg/mg 10-20 [facility] Work Phone: [phone] Laboratory - Hematology and Cell countson 08-26-2022 Erythrocyte distribution width (RBC) [Entitic vol] 46.1 fL 35.1-43.9 [facility] Work Phone: [phone] Erythrocyte distribution width (RBC) [Ratio] 14.3 % 11.6-14.6 [facility] Work Phone: [phone] Immature granulocytes/100 WBC (Bld) 0.400 % 0.0-0.9 [facility] Work Phone: [phone] Comment on above: IG% - Immature Granu locytes (promyelocytes, myelocytes and metamyelocytes) > 1% indicates that a LEFT SHIFT is Present. MCH (RBC) [Entitic mass] 28.2 pg 27.0-32.0 [facility] Work Phone: [phone] Nucleated RBC/100 WBC (Bld) [Ratio] 0 % 0-5 [facility] Work Phone: [phone] MCHC Auto (RBC) [Mass/Vol]on 08-26-2022 MCHC (RBC) [Mass/Vol] 32.4 g/dL 32-36 [facility] Work Phone: No Panel Informationon 08-26 Estimated Creatinine Clearance Calc 59.94 ml/min [facility] Work Phone: Estimated GFR (MDRD) Amer 92 mL/min >60 [facility] Work Phone: Comment on above: GFR Calc Estimated GFR (MDRD) Non-Af Amer 76 mL/min >60 [facility] Work Phone: Comment on above: Non- GFR Calc Troponin I High Sensitivity 14 pg/mL 3.0-78.0 [facility] Work Phone: Comment on above: Please Note: New Lana t Units and Gender Specific Reference Ranges. For more information see Policy Stat Procedure [place] High Sensitivity Troponin (TNIH) and attachments. Platelets bldon 08-26-2022 Platelets (Bld) [#/Vol] 364 10*3/uL 150-450 [facility] Work Phone: Review by pathologiston Pathologist review Geraldo (Unsp spec) [Interp] December taco [facility] Work Phone: Pathologist review Geraldo (Unsp spec) [Interp] Reviewed [facility] Work Phone: Comment on above: Previous reported re sult: Xin taco Edited by: RGOOD on 08/29/22:0933Neutrophilic leukocytosis.Clinical correlation suggested.Nigel Florez D.O. 08/29/22 AMENDED REPORT 08/29/22 0933 PATH REV previously reported as: Xin taco Serum or plasma calcium christiana urement (mass/volume)on 08-26-2022 Calcium [Mass/Vol] 9.0 mg/dL 8.5-10.1 [facility] Work Phone: Serum or plasma creatinine m easurement (mass/volume)on 08-26-2022 Creatinine [Mass/Vol] 1.02 mg/dL 0.70-1.30 [facility] Work Phone: Comment on above: The validity of the calculated GFR & GFRAA in patients over 70 years has not been determined. Clinical correlation is essential. Serum or plasma urea nitroge n measurement (mass/volume)on 08-26-2022 Urea nitrogen [Mass/Vol] 36 mg/dL 7-18 [facility] Work Phone: Thin prep Papanicolaou smear with manual screeningon 08-26-2022 Thin prep Papanicolaou smear with manual screening 4 5-15 [facility] Work Phone: .Auto Diffon 08-23-2022 Basophil, Absolute 0.0 10 3/mcL Normal 0.0-0.3 [facility] ([place]) Comment on above: Performed By: #### EMILY JEFFERSON, GFR #### [address] [address] Basophils/100 WBC (Bld) 0.3 % Normal 0.0-2.5 A [facility] ([place]) Comment on above: Performed By: #### EMILY JEFFERSON, GFR #### [address] [address] Eosinophil, Absolute 0.1 10 3/mcL Normal 0.0-0.7 [facility] ([place]) Comment on above: Performed By: #### EMILY JEFFERSON, GFR #### [address] [address] Eosinophils/100 WBC (Bld) 0.9 % Normal 0.0-6.0 [facility] ([place]) Comment on above: Performed By: #### EMILY JEFFERSON, GFR #### [address] [address] Lymphocyte, Absolute 0.6 10 3/mcL Low 0.9-4.3 [facility] ([place]) Comment on above: Performed By: #### EMILY JEFFERSON, GFR #### [address] [address] Lymphocytes/100 WBC (Bld) 4.7 % Low 20.0-40.0 [facility] ([place]) Comment on above: Performed By: #### EMILY JEFFERSON, GFR #### [address] [address] Monocyte, Absolute 1.2 10 3/mcL Normal 0.1-1.4 [facility] ([place]) Comment on above: Performed By: #### T CEFERINO BMP, GFR #### [address] [address] Monocytes/100 WBC (Bld) 8.6 % Normal 2.0-13.0 A [facility] ([place]) Comment on above: Performed By: #### T CEFERINO BMP, GFR #### [address] [address] Neutrophils/100 WBC (Bld) 85.5 % High 50.0-75.0 [facility] ([place]) Comment on above: Performed By: #### T CEFERINO BMP, GFR #### [address] [address] .GFRon 08-23-2022 GFR >60 Normal [facility] ([place]) Comment on above: Result Comment: GFR Population [...] By: #### T CEFERINO BMP, GFR #### [address] [address] GFR Non- >60 Normal [facility] ([place]) Comment on above: Result Comment: GFR Population [...] By: #### T CEFERINO BMP, GFR #### [address] [address] .MDWon 08-23-2022 Monocyte Distribution Width 19.08 Normal 0.00-20.00 [facility] ([place]) Comment on above: Result Comment: For ED adult patients suspected of sepsis, MDW<=20.0 does not rule out sepsis or risk of sepsis Performed By: #### T EMILY DE LA VEGA, GFR #### [address] [address] .NEUABSon 08-23-2022 Neutrophil, Absolute 11.6 10 3/mcL High 2.3-8.1 A [facility] ([place]) Comment on above: Performed By: #### T EMILY DE LA VEGA, GFR #### [address] [address] Absolute lymphocyte counton 08-23-2022 Lymphocytes Auto (Unsp spec) [#/Vol] 0.57 10*3/uL 0.83-4.51 [facility] Work Phone: BMPon 08-23-2022 BUN/Creatinine Ratio 24.4 ratio High 10.0-22.0 [facility] ([place]) Comment on above: Performed By: #### T CEFERINO, BMP, GFR #### [address] [address] Calcium [Mass/Vol] 9.9 mg/dL Normal 8.7-10.4 [facility] ([place]) Comment on above: Performed By: #### T CEFERINO BMP, GFR #### [address] [address] Chloride [Moles/Vol] 97 mmol/L Low 98-110 [facility] ([place]) Comment on above: Performed By: #### T CEFERINO, BMP, GFR #### [address] [address] CO2 [Moles/Vol] 30 mmol/L Normal 22-32 [facility] ([place]) Comment on above: Performed By: #### T CEFERINO, BMP, GFR #### [address] [address] Creatinine [Mass/Vol] 0.78 mg/dL Normal 0.60-1.40 [facility] ([place]) Comment on above: Performed By: #### T CEFERINO, BMP, GFR #### [address] [address] Electrolyte Balance 7.0 mEq/L Normal 4.0-15.0 [facility] ([place]) Comment on above: Performed By: #### T CEFERINO, BMP, GFR #### [address] [address] Glucose [Mass/Vol] 120 mg/dL High 82-115 [facility] ([place]) Comment on above: Performed By: #### T CEFERINO, BMP, GFR #### [address] [address] Potassium [Moles/Vol] 4.3 mmol/L Normal 3.5-5.0 [facility] ([place]) Comment on above: Performed By: #### T CEFERINO, BMP, GFR #### [address] [address] Sodium [Moles/Vol] 134 mmol/L Low 136-145 [facility] ([place]) Comment on above: Performed By: #### T CEFERINO, BMP, GFR #### [address] [address] Urea nitrogen [Mass/Vol] 19.0 mg/dL Normal 8.0-22.0 [facility] ([place]) Comment on above: Performed By: #### T CEFERINO, BMP, GFR #### [address] [address] Basophil percentageon 2021 Basophils/100 WBC (Bld) 0.4 % 0-1 [facility] Work Phone: Chloride [Moles/Vol] 99 mmol/L 98-[address] [facility] [facility] [facility] Work Phone: Eosinophils/100 WBC (Bld) 0.0 % 0-5 [facility] Work Phone: Glucose [Mass/Vol] 147 mg/dL 74-106 [facility] Work Phone: Comment on above: Fasting Glucose resu lt greater than or equal to 126 mg/dL suggests DIABETES MELLITUS per A.D.A. criteria. Neutrophils (Bld) [#/Vol] 14.2 10*3/uL 2.0-7.7 [facility] Work Phone: Neutrophils/100 WBC (Bld) 85.6 % 47-70 [facility] Work Phone: Potassium [Moles/Vol] 3.8 mmol/L 3.5-5.1 [facility] Work Phone: Sodium [Moles/Vol] 134 mmol/L 136-145 [facility] Work Phone: WBC (Bld) [#/Vol] 16.5 10*3/uL 4.4-11.0 [facility] Work Phone: Blood erythrocytes count (nu mber/volume)on 08-23-2022 RBC (Bld) [#/Vol] 5.50 10*6/uL 4.6-6.2 [facility] Work Phone: Blood hemoglobin measurement (mass/volume)on 08-23-2022 Hemoglobin (Bld) [Mass/Vol] 15.5 g/dL 13.0-16.5 [facility] Work Phone: Blood lymphocytes/100 leukoc yteson 08-23-2022 Lymphocytes/100 WBC (Bld) 3.5 % 19-41 [facility] Work Phone: Blood monocytes/100 leukocyt eson 08-23-2022 Monocytes/100 WBC (Bld) 9.9 % 0-10 [facility] Work Phone: Blood platelet mean volumeon 08-23-2022 Platelet mean volume (Bld) [Entitic vol] 10.0 fL 6.2-12.0 [facility] Work Phone: CBCon 08-23-2022 Erythrocyte distribution width (RBC) [Ratio] 14.3 % Normal 11.5-15.5 [facility] ([place]) Comment on above: Performed By: #### T EMILY DE LA VEGA, GFR #### [address] [address] Hematocrit (Bld) [Volume fraction] 45.5 % Normal 40.0-52.0 [facility] ([place]) Comment on above: Performed By: #### T EMILY DE LA VEGA, GFR #### [address] [address] Hgb 14.7 G/dL Normal 13.0-17.5 [facility] ([place]) Comment on above: Performed By: #### T EMILY DE LA VEGA, GFR #### [address] [address] MCH (RBC) [Entitic mass] 27.4 pg Normal 27.0-33.0 [facility] ([place]) Comment on above: Performed By: #### T EMILY DE LA VEGA, GFR #### [address] [address] MCHC 32.4 G/dL Normal 32.0-36.0 [facility] ([place]) Comment on above: Performed By: #### T EMILY DE LA VEGA, GFR #### [address] [address] MCV (RBC) [Entitic vol] 84.5 fL Normal 81.0-100.0 A [facility] ([place]) Comment on above: Performed By: #### T EMILY DE LA VEGA, GFR #### [address] [address] Platelet 229 10 3/mcL Normal 150-450 [facility] ([place]) Comment on above: Performed By: #### T EMILY DE LA VEGA, GFR #### [place] [address] Platelet mean volume (Bld) [Entitic vol] 8.1 fL Normal 6.4-10.5 [facility] ([place]) Comment on above: Performed By: #### T EMILY DE LA VEGA, GFR #### [place] [address] RBC 5.39 10 6/mcL Normal 4.50-6.00 [facility] ([place]) Comment on above: Performed By: #### T EMILY DE LA VEGA, GFR #### [place] [address] WBC 13.6 10 3/mcL High 4.5-10.8 [facility] ([place]) Comment on above: Performed By: #### T EMILY DE LA VEGA, GFR #### [place] [address] CVFLURVon 08-23-2022 FLU A PCR Negative Normal Negative [facility] ([place]) Comment on above: Result Comment: [place] s [id number] Performed By: #### C VFLURV #### [place] [address] FLU B PCR Negative Normal Negative [facility] ([place]) Comment on above: Result Comment: Note s [id number] Performed By: #### C VFLURV #### [place] [address] RSV PCR Negative Normal Negative [facility] ([place]) Comment on above: Result Comment: Note s [id number] Performed By: #### C VFLURV #### [place] [address] SARS-CoV-2 (COVID-19) RNA JELENA+probe Ql (Unsp spec) Negative Normal Negative [facility] ([place]) Comment on above: Result Comment: [place] [id number] This test has been authorized by FDA [...] inaccurate positive results. Performed By: #### C [facility] #### [place] [address] Determination of erythrocyte mean corpuscular volume (MCV)on 08-23-2022 MCV (RBC) [Entitic vol] 84.7 fL 80-94 [facility] Work Phone: Hematocrit Auto (Bld) [Volum e fraction]on 08-23-2022 Hematocrit (Bld) [Volume fraction] 46.6 % 40-54 [facility] Work Phone: LABORATORYOrdered By: SYSTEM SYSTEM on [...] Comment on above: Result Comment: [place] [id number] FLUBV RNA JELENA+probe Ql (Resp) Negative 4 (08/23/22 12:22 PM) Invalid Interpretation Code Negative Auto Viro/Sero SS Comment on above: Result Comment: [place] [id number] RSV PCR Negative 5 (08/23/22 12:22 PM) Invalid Interpretation Code Negative Auto Viro/Sero SS Comment on above: Result Comment: [place] [id number] SARS-CoV-2 (COVID-19) RNA JELENA+probe Ql (Resp) Negative 2 (08/23/22 12:22 PM) Invalid Interpretation Code Negative AH Auto Viro/Sero SS Comment on above: Result Comment: [place] [id number] Laboratory - Chemistry and C hemistry - challengeon 08-23-2022 CO2 [Moles/Vol] 27.0 mmol/L 21.0-32.0 [facility] Work Phone: [phone] Urea nitrogen/Creatinine [Mass ratio] 23.0 mg/mg 10-20 [facility] Work Phone: [phone] Laboratory - Hematology and Cell countson 08-23-2022 Erythrocyte distribution width (RBC) [Entitic vol] 42.4 fL 35.1-43.9 [facility] Work Phone: [phone] Erythrocyte distribution width (RBC) [Ratio] 13.7 % 11.6-14.6 [facility] Work Phone: [phone] Immature granulocytes/100 WBC (Bld) 0.600 % 0.0-0.9 [facility] Work Phone: [phone] Comment on above: IG% - Immature Granu locytes (promyelocytes, myelocytes and metamyelocytes) > 1% indicates that a LEFT SHIFT is Present. MCH (RBC) [Entitic mass] 28.2 pg 27.0-32.0 [facility] Work Phone: [phone] Nucleated RBC/100 WBC (Bld) [Ratio] 0 % 0-5 [facility] Work Phone: [phone] MCHC Auto (RBC) [Mass/Vol]on 08-23-2022 MCHC (RBC) [Mass/Vol] 33.3 g/dL 32-36 [facility] Work Phone: [phone] Panel Informationon 08-23 Estimated Creatinine Clearance Calc 61.14 ml/min [facility] Work Phone: [phone] Estimated GFR (MDRD) Amer 95 mL/min >60 [facility] Work Phone: [phone] Comment on above: GFR Calc Estimated GFR (MDRD) Non-Af Amer 78 mL/min >60 [facility] Work Phone: [phone] Comment on above: Non- GFR Calc Troponin I High Sensitivity 13 pg/mL 3.0-78.0 [facility] Work Phone: Comment on above: Please Note: New Lana t Units and Gender Specific Reference Ranges. For more information see Policy Stat Procedure [place] High Sensitivity Troponin (TNIH) and attachments. Platelets bldon 08-23-2022 Platelets (Bld) [#/Vol] 256 10*3/uL 150-450 [facility] Work Phone: Review by pathologiston 07-27 Pathologist review Geraldo (Unsp spec) [Interp] Reviewed [facility] Work Phone: Comment on above: Previous reported re sult: Xin españa Edited by: ESTELA on 08/24/22:1137Neutrophilic leukocytosis.Clinical correlation necessary.Desmond Camacho M.D. 08/24/22 AMENDED REPORT 08/24/22 1137 PATH REV previously reported as: Xin españa Serum or plasma calcium christiana urement (mass/volume)on 08-23-2022 Calcium [Mass/Vol] 9.4 mg/dL 8.5-10.1 [facility] Work Phone: Serum or plasma creatinine m easurement (mass/volume)on 08-23-2022 Creatinine [Mass/Vol] 1.00 mg/dL 0.70-1.30 [facility] Work Phone: Comment on above: The validity of the calculated GFR & GFRAA in patients over 70 years has not been determined. Clinical correlation is essential. Serum or plasma urea nitroge n measurement (mass/volume)on 08-23-2022 Urea nitrogen [Mass/Vol] 23 mg/dL 7-18 [facility] Work Phone: TROPHSon 08-23-2022 Troponin I High Sensitivity 4.19 ng/L Normal 0.00-54.00 [facility] ([place]) Comment on above: Result Comment: If t he High Sensitive Troponin result is below the 99th percentile value (<45 ng/L) at the first blood draw, at least two additional blood samples should be drawn before results are interpreted as negative for AMI. Performed By: #### T ROPHS, BMP, GFR #### [facility] [address] [place] [id number] Thin prep Papanicolaou smear with manual screeningon 08-23-2022 Thin prep Papanicolaou smear with manual screening 01-07 [facility] Work Phone: XR CHEST 1 VIEWon 08-23-2022 [...] 08/23/2022 11:49:31 AM Ordering Provider: JUAN Wang [facility] ([place]) LABORATORYOrdered By: SYSTEM SYSTEM on 06-20-2021 Base [...] Routine cultures are held for 5 days. [facility] Work Phone: OPERATIVE PROCEDURESon 11-25 OPERATIVE PROCEDURES [facility] OPERATIVE REPORT NAME ACCOUNT SEX AGE ADMIT DISCHARGE PT MED. RECORD# NUMBER DATE DATE TYPE BEATRIS QUINN [id number] M 69 11/18/20 2 [id number] ROOM: [facility] DATE OF : 1950 DICTATING PHYSICIAN: Sahara Jay DATE OF SURGERY: November 18, 2020 SURGEON: Sahara Jay MD INTERVENTIONAL PHYSIATRIST: ANESTHESIOLOGIST: ANESTHETIC: MAC. PREOPERATIVE DIAGNOSIS: Screening colonoscopy. [...] Sahara Jay MD 11/18/20 13:08 JOB #: [id number] Transcribed By: jeovany 11/19/20 07:37 Electronically signed by: E-SIGN DR. JAY 11/25/20 09:12 Page 2 of 2 BEATRIS QUINN Operative Report Normal [facility] Gram stain for investigation of transfusion reaction Microscopic observation Gram stain Nom (Unsp spec) [facility] Work Phone: Influenza virus A and B and SARS-CoV-2 (COVID-19) Ag panel - Upper respiratory specim SARS-CoV-2 (COVID-19) RNA JELENA+probe Ql (Resp) [facility] Work Phone: Microbial respiratory cultur e Bacteria identified Respiratory culture Nom (Unsp spec) [facility] Work Phone: No Panel Information Streptococcus pneumoniae Antigen (M [facility] Work Phone: Respiratory pathogens DNA an d RNA 12b panel JELENA+probe (Unsp spec) Respiratory Panel (PCR) Influenza A (Sub type H1) [facility] Work Phone: Vital Signs Date Time Vital Sign Value Performing Clinician Facility 06-02-2025 11:05-0400 Body temperature 98 [degF] Dr. Vivi Pike DO Work Phone: [phone] [place] [address] 06-02-2025 11:05-0400 Diastolic blood pressure 78 mm[Hg] Dr. Vivi Pike DO Work Phone: [phone] [place] [address] 06-02-2025 11:05-0400 Heart rate 92 /min Dr. Vivi Pike DO Work Phone: [phone] [place] [address] 06-02-2025 11:05-0400 Respiratory rate 16 /min Dr. Vivi Pike DO Work Phone: [phone] [place] [address] 06-02-2025 11:05-0400 SaO2% (BldA) [Mass fraction] 96 % Dr. Vivi Pike DO Work Phone: 0(479)385-738275 [place] [address] 06-02-2025 11:05-0400 Systolic blood pressure 139 mm[Hg] Dr. Vivi Pike DO Work Phone: 5(013)256-308875 [place] [address] 06-01-2025 13:35-0400 Body height 167.[address] Vivi Pike DO Work Phone: 2(726)560-249775 [place] [address] 06-01-2025 13:35-0400 Body mass index (BMI) [Ratio] 19 kg/m2 Dr. Vivi Pike DO Work Phone: 6(552)301-017606 [place] [address] 06-01-2025 13:35-0400 Body weight 53.[address] Vivi Pike DO Work Phone: 3(750)213-244775 [place] [address] 06-01-2025 11:59-0400 Body temperature 98.2 [degF] Dr. Vivi Pike DO Work Phone: 9(571)879-995275 [place] [address] 06-01-2025 11:59-0400 Diastolic blood pressure 85 mm[Hg] Dr. Vivi Pike DO Work Phone: [facility] 06-01-2025 11:59-0400 Heart rate 80 /min Dr. Vivi Pike DO Work Phone: [facility] 06-01-2025 11:59-0400 Respiratory rate 16 /min Dr. Vivi Pike DO Work Phone: [facility] 06-01-2025 11:59-0400 SaO2% (BldA) [Mass fraction] 98 % Dr. Vivi Pike DO Work Phone: 3(942)820-78[address] [place] [address] 06-01-2025 11:59-0400 Systolic blood pressure 156 mm[Hg] Dr. Vivi Pike DO Work Phone: [facility] 06-01-2025 07:22-0400 Body mass index (BMI) [Ratio] 19.5 kg/m2 Dr. Vivi Pike DO Work Phone: [facility] 06-01-2025 07:22-0400 Body weight [address] Vivi Pike DO Work Phone: [facility] 06-01-2025 07:20-0400 Body height 167.[address] Vivi Pike DO Work Phone: [facility] 04-16-2025 09:50-0400 Body mass index (BMI) [Ratio] 21.04 kg/m2 Tigre Restrepo MD Work Phone: [facility] 04-16-2025 09:50-0400 Body weight 55.6 kg Tigre Restrepo MD Work Phone: [facility] 04-16-2025 09:50-0400 Diastolic blood pressure 72 mm[Hg] Tigre Restrepo MD Work Phone: [facility] 04-16-2025 09:50-0400 Heart rate 72 /min Tigre Restrepo MD Work Phone: [facility] 04-16-2025 09:50-0400 SaO2% (BldA) [Mass fraction] 96 % Tigre Restrepo MD Work Phone: [facility] 04-16-2025 09:50-0400 Systolic blood pressure 128 mm[Hg] Tigre Restrepo MD Work Phone: [facility] 12-02-2024 16:21-0400 Body temperature 97.7 [degF] Dr. Todd Valdovinos DO Work Phone: [facility] 12-02-2024 16:21-0400 Diastolic blood pressure 77 mm[Hg] Dr. Todd Valdovinos DO Work Phone: [facility] 12-02-2024 16:21-0400 Heart rate 95 /min Dr. Todd Valdovinos DO Work Phone: [facility] 12-02-2024 16:21-0400 Respiratory rate 18 /min Dr. Todd Valdovinos DO Work Phone: [facility] 12-02-2024 16:21-0400 SaO2% (BldA) [Mass fraction] 94 % Dr. Todd Valdovinos DO Work Phone: [facility] 12-02-2024 16:21-0400 Systolic blood pressure 143 mm[Hg] Dr. Todd Valdovinos DO Work Phone: [facility] 12-02-2024 10:45-0400 Body height 167.[address] Todd Valdovinos DO Work Phone: [facility] 12-02-2024 10:45-0400 Body weight 56.[address] Todd Valdovinos DO Work Phone: [facility] 12-01-2024 11:55-0400 Inhaled oxygen flow rate 2 L/min Dr. Todd Valdovinos DO Work Phone: [facility] 12-01-2024 09:18-0400 Body mass index (BMI) [Ratio] 20 kg/m2 Dr. Todd Valdovinos DO Work Phone: [facility] 12-01-2024 09:00-0400 Body temperature 98.4 [degF] Dr. Jr Ryan DO Work Phone: [facility] 12-01-2024 09:00-0400 Diastolic blood pressure 76 mm[Hg] Dr. Jr Ryan DO Work Phone: [facility] 12-01-2024 09:00-0400 Heart rate 83 /min Dr. Jr Ryan DO Work Phone: [facility] 12-01-2024 09:00-0400 Inhaled oxygen flow rate 1 L/min Dr. Jr Ryan DO Work Phone: [facility] 12-01-2024 09:00-0400 Respiratory rate 18 /min Dr. Jr Ryan DO Work Phone: [facility] 12-01-2024 09:00-0400 SaO2% (BldA) [Mass fraction] 96 % Dr. Jr Ryan DO Work Phone: [facility] 12-01-2024 09:00-0400 Systolic blood pressure 129 mm[Hg] Dr. Jr Ryan DO Work Phone: [facility] 12-01-2024 06:21-0400 Body height 167.[address] Jr Ryan DO Work Phone: [facility] 12-01-2024 06:21-0400 Body mass index (BMI) [Ratio] 20.2 kg/m2 Dr. Jr Ryan DO Work Phone: [facility] 12-01-2024 06:21-0400 Body weight 57.[address] Jr Ryan DO Work Phone: [facility] 10-16-2024 08:50-0500 Body height 162.6 cm Tigre Restrepo MD Work Phone: [facility] 10-16-2024 08:50-0500 Body mass index (BMI) [Ratio] 22.48 kg/m2 Tigre Restrepo MD Work Phone: [facility] 10-16-2024 08:50-0500 Body weight 59.4 kg Tigre Restrepo MD Work Phone: [facility] 10-16-2024 08:50-0500 Diastolic blood pressure 76 mm[Hg] Tigre Restrepo MD Work Phone: [facility] 10-16-2024 08:50-0500 Heart rate 79 /min Tigre Restrepo MD Work Phone: [facility] 10-16-2024 08:50-0500 SaO2% (BldA) [Mass fraction] 94 % Tigre Restrepo MD Work Phone: [facility] 10-16-2024 08:50-0500 Systolic blood pressure 153 mm[Hg] Tigre Restrepo MD Work Phone: [facility] 05-22-2024 08:14-0400 Body height 162.6 cm Claire Turner MD Work Phone: [facility] 05-22-2024 08:14-0400 Body mass index (BMI) [Ratio] 21.95 kg/m2 Claire Turner MD Work Phone: [facility] 05-22-2024 08:14-0400 Body weight 58 kg Claire Turner MD Work Phone: [facility] 05-22-2024 08:14-0400 Diastolic blood pressure 70 mm[Hg] Claire Turner MD Work Phone: [facility] 05-22-2024 08:14-0400 Heart rate 69 /min Claire Turner MD Work Phone: [facility] 05-22-2024 08:14-0400 SaO2% (BldA) [Mass fraction] 95 % Claire Turner MD Work Phone: [facility] 05-22-2024 08:14-0400 Systolic blood pressure 136 mm[Hg] Claire Turner MD Work Phone: [facility] 05-15-2024 10:51-0400 Body mass index (BMI) [Ratio] 20.56 kg/m2 Mehreen Crow MD Work Phone: [facility] 05-15-2024 10:51-0400 Body temperature 97.2 [degF] Mehreen Crow MD Work Phone: [facility] 05-15-2024 10:51-0400 Body weight 55.9 kg Mehreen Crow MD Work Phone: [facility] 05-15-2024 10:51-0400 Diastolic blood pressure 78 mm[Hg] Mehreen Crow MD Work Phone: [facility] 05-15-2024 10:51-0400 Heart rate 51 /min Mehreen Crow MD Work Phone: [facility] Comment on above: Took anxiety tablet this morning 05-15-2024 10:51-0400 Respiratory rate 16 /min Mehreen Crow MD Work Phone: [facility] 05-15-2024 10:51-0400 SaO2% (BldA) [Mass fraction] 96 % Mehreen Crow MD Work Phone: [facility] 05-15-2024 10:51-0400 Systolic blood pressure 150 mm[Hg] Mehreen Crow MD Work Phone: [facility] 03-24-2024 11:16-0400 Body height 164.9 cm Tigre Restrepo MD Work Phone: [facility] 03-24-2024 11:16-0400 Body mass index (BMI) [Ratio] 20.56 kg/m2 Tigre Restrepo MD Work Phone: [facility] 03-24-2024 11:16-0400 Body weight 55.9 kg Tigre Restrepo MD Work Phone: [facility] 03-24-2024 11:16-0400 Diastolic blood pressure 77 mm[Hg] Tigre Restrepo MD Work Phone: [facility] 03-24-2024 11:16-0400 Heart rate 66 /min Tigre Restrepo MD Work Phone: [facility] 03-24-2024 11:16-0400 SaO2% (BldA) [Mass fraction] 97 % Tigre Restrepo MD Work Phone: [facility] 03-24-2024 11:16-0400 Systolic blood pressure 150 mm[Hg] Tigre Restrepo MD Work Phone: [facility] 12-20-2023 13:37-0400 Inhaled oxygen flow rate 2 L/min Dr. Jr Ryan Work Phone: [facility] 12-20-2023 12:11-0400 Body temperature 100 [degF] Dr. Jr Ryan Work Phone: [facility] 12-20-2023 12:11-0400 Diastolic blood pressure 93 mm[Hg] Dr. Jr Ryan Work Phone: [facility] 12-20-2023 12:11-0400 Heart rate 86 /min Dr. Jr Ryan Work Phone: [facility] 12-20-2023 12:11-0400 Respiratory rate 16 /min Dr. Jr Ryan Work Phone: [facility] 12-20-2023 12:11-0400 SaO2% (BldA) [Mass fraction] 96 % Dr. Jr Ryan Work Phone: [facility] 12-20-2023 12:11-0400 Systolic blood pressure 157 mm[Hg] Dr. Jr Ryan Work Phone: [facility] 12-18-2023 14:53-0400 Body height 167.[address] Jr Ryan Work Phone: [facility] 12-18-2023 14:53-0400 Body weight 56.[address] Jr Ryan Work Phone: [facility] 12-17-2023 16:02-0400 Body mass index (BMI) [Ratio] 20 kg/m2 Dr. Jr Ryan Work Phone: 4(362)604-307550 [address] 12-17-2023 15:33-0400 Body temperature 98.7 [degF] Dr. Jr Ryan Work Phone: 0(448)696-604531 [place] [address] 12-17-2023 15:33-0400 Diastolic blood pressure 91 mm[Hg] Dr. Jr Ryan Work Phone: 1(248)349-821850 [address] 12-17-2023 15:33-0400 Heart rate 101 /min Dr. Jr Ryan Work Phone: 6(469)167-810831 [place] [address] 12-17-2023 15:33-0400 Respiratory rate 23 /min Dr. Jr Ryan Work Phone: 1(402)950-485731 [place] [address] 12-17-2023 15:33-0400 SaO2% (BldA) [Mass fraction] 97 % Dr. Jr Ryan Work Phone: 1(228)522-077931 [place] [address] 12-17-2023 15:33-0400 Systolic blood pressure 157 mm[Hg] Dr. Jr Ryan Work Phone: 7(116)183-915731 [place] [address] 12-17-2023 15:00-0400 Inhaled oxygen flow rate 3 L/min Dr. Jr Ryan Work Phone: 4(030)585-452131 [place] [address] 12-17-2023 13:26-0400 Body height 167.[address] Jr Ryan Work Phone: 0(404)744-072431 [place] [address] 12-17-2023 13:26-0400 Body mass index (BMI) [Ratio] 20.6 kg/m2 Dr. Jr Ryan Work Phone: 8(506)083-179550 [address] 12-17-2023 13:26-0400 Body weight [address] Jr Ryan Work Phone: 7(535)757-660331 [place] [address] 12-11-2023 11:51-0400 Body temperature 97.6 [degF] [facility] 12-11-2023 11:51-0400 Diastolic blood pressure 78 mm[Hg] [facility] 12-11-2023 11:51-0400 Heart rate 89 /min [facility] 12-11-2023 11:51-0400 Respiratory rate 18 /min [facility] 12-11-2023 11:51-0400 SaO2% (BldA) [Mass fraction] 98 % [facility] 12-11-2023 11:51-0400 Systolic blood pressure 134 mm[Hg] [facility] 12-11-2023 09:04-0400 Body height 167.64 cm [facility] 12-11-2023 09:04-0400 Body mass index (BMI) [Ratio] 21.9 kg/m2 [facility] 12-11-2023 09:04-0400 Body weight 61.64 kg [facility] 10-29-2023 09:33-0500 Body temperature 98.1 [degF] [facility] 10-29-2023 09:33-0500 Diastolic blood pressure 79 mm[Hg] [facility] 10-29-2023 09:33-0500 Heart rate 73 /min [facility] 10-29-2023 09:33-0500 Respiratory rate 23 /min [facility] 10-29-2023 09:33-0500 SaO2% (BldA) [Mass fraction] 93 % [facility] 10-29-2023 09:33-0500 Systolic blood pressure 115 mm[Hg] [facility] 10-29-2023 06:51-0500 Body height 167.64 cm [facility] 10-29-2023 06:51-0500 Body mass index (BMI) [Ratio] 21.9 kg/m2 [facility] 10-29-2023 06:51-0500 Body weight 61.5 kg [facility] 07-09-2023 11:16-0500 Diastolic blood pressure 60 mm[Hg] [facility] 07-09-2023 11:16-0500 SaO2% (BldA) [Mass fraction] 96 % [facility] 07-09-2023 11:16-0500 Systolic blood pressure 113 mm[Hg] [facility] 07-09-2023 10:00-0500 Heart rate 70 /min [facility] 07-09-2023 10:00-0500 Respiratory rate 18 /min [facility] 07-09-2023 07:01-0500 Body height 167.64 cm [facility] 07-09-2023 07:01-0500 Body mass index (BMI) [Ratio] 23.2 kg/m2 [facility] 07-09-2023 07:01-0500 Body temperature 98.9 [degF] [facility] 07-09-2023 07:01-0500 Body weight 65.3 kg [facility] 08-30-2022 15:41-0500 Body temperature 98 [degF] Dr. Jr Ryan Work Phone: [facility] Work Phone: 08-30-2022 15:41-0500 Diastolic blood pressure 88 mm[Hg] Dr. Jr Ryan Work Phone: [facility] Work Phone: 08-30-2022 15:41-0500 Heart rate 86 /min Dr. Jr Ryan Work Phone: [facility] Work Phone: 08-30-2022 15:41-0500 Respiratory rate 20 /min Dr. Jr Ryan Work Phone: [facility] Work Phone: 08-30-2022 15:41-0500 SaO2% (BldA) [Mass fraction] 92 % Dr. Jr Ryan Work Phone: [facility] Work Phone: 08-30-2022 15:41-0500 Systolic blood pressure 149 mm[Hg] Dr. Jr Ryan Work Phone: [facility] Work Phone: 08-30-2022 13:56-0500 Inhaled oxygen flow rate 3 L/min Dr. Jr Ryan Work Phone: [facility] Work Phone: 08-30-2022 09:14-0500 Body weight 62.[address] Jr Ryan Work Phone: [facility] Work Phone: 08-28-2022 11:55-0500 Body height 167.[address] Jr Ryan Work Phone: [facility] Work Phone: 08-26-2022 13:51-0500 Body mass index (BMI) [Ratio] 22.8 kg/m2 Dr. Jr Ryan Work Phone: [facility] Work Phone: 08-26-2022 13:17-0500 Body temperature 98.3 [degF] Dr. Jr Ryan Work Phone: [facility] Work Phone: 08-26-2022 13:17-0500 Diastolic blood pressure 72 mm[Hg] Dr. Jr Ryan Work Phone: [facility] Work Phone: 08-26-2022 13:17-0500 Heart rate 83 /min Dr. Jr Ryan Work Phone: [facility] Work Phone: 08-26-2022 13:17-0500 Respiratory rate 20 /min Dr. Jr Ryan Work Phone: [facility] Work Phone: 08-26-2022 13:17-0500 SaO2% (BldA) [Mass fraction] 94 % Dr. Jr Ryan Work Phone: [facility] Work Phone: 08-26-2022 13:17-0500 Systolic blood pressure 130 mm[Hg] Dr. Jr Ryan Work Phone: [facility] Work Phone: 08-26-2022 13:00-0500 Inhaled oxygen flow rate 4 L/min Dr. Jr Ryan Work Phone: [facility] Work Phone: 08-26-2022 10:52-0500 Body height 167.[address] Jr Ryan Work Phone: [facility] Work Phone: 08-26-2022 10:52-0500 Body mass index (BMI) [Ratio] 22.8 kg/m2 Dr. Jr Ryan Work Phone: [facility] Work Phone: 08-26-2022 10:52-0500 Body weight 64.[address] Jr Ryan Work Phone: [facility] Work Phone: 08-23-2022 21:00-0500 Heart rate 118 /min Dr. Jr Ryan Work Phone: [facility] Work Phone: 08-23-2022 21:00-0500 Respiratory rate 26 /min Dr. Jr Ryan Work Phone: [facility] Work Phone: 08-23-2022 21:00-0500 SaO2% (BldA) [Mass fraction] 94 % Dr. Jr Ryan Work Phone: [facility] Work Phone: 08-23-2022 20:27-0500 Inhaled oxygen flow rate 4 L/min [facility] Work Phone: 08-23-2022 20:27-0500 SaO2% (BldA) [Mass fraction] 99 % [facility] Work Phone: 08-23-2022 20:26-0500 Body temperature 97.7 [degF] [facility] Work Phone: 08-23-2022 20:26-0500 Diastolic blood pressure 83 mm[Hg] [facility] Work Phone: 08-23-2022 20:26-0500 Heart rate 103 /min [facility] Work Phone: 08-23-2022 20:26-0500 Respiratory rate 22 /min [facility] Work Phone: 08-23-2022 20:26-0500 Systolic blood pressure 148 mm[Hg] [facility] Work Phone: 08-23-2022 18:25-0500 Body height 167.64 cm [facility] Work Phone: 08-23-2022 18:25-0500 Body mass index (BMI) [Ratio] 22.8 kg/m2 [facility] Work Phone: 08-23-2022 18:25-0500 Body weight 64.41 kg [facility] Work Phone: 08-23-2022 11:43-0500 Body temperature 98.06 [degF] ARCHANA CALLEJAS MD [facility] 08-23-2022 11:43-0500 Body weight 65.3 kg ARCHANA CALLEJAS MD [facility] 08-23-2022 11:43-0500 Diastolic Blood Pressure Non-Invasive 93 1 ARCHANA CALLEJAS MD [facility] 08-23-2022 11:43-0500 Heart rate 102 /min ARCHANA CALLEJAS MD [facility] 08-23-2022 11:43-0500 Respiratory rate 18 /min ARCHANA CALLEJAS MD [facility] 08-23-2022 11:43-0500 Systolic Blood Pressure Non-Invasive 176 1 ARCHANA CALLEJAS MD [facility] 06-20-2021 14:02-0400 Body temperature 97.16 [degF] JAYMIE SUERO DO [facility] 06-20-2021 14:02-0400 Diastolic blood pressure 62 mm[Hg] JAYMIE SUERO DO [facility] 06-20-2021 14:02-0400 Heart rate 74 /min JAYMIE SUERO [facility] 06-20-2021 14:02-0400 Respiratory rate 22 /min JAYMIE SUERO [facility] 06-20-2021 14:02-0400 Systolic blood pressure 154 mm[Hg] JAYMIE SUERO [facility] 06-20-2021 11:40-0400 Body temperature 100.04 [degF] JAYMIE SUERO [facility] 06-20-2021 11:40-0400 Diastolic blood pressure 90 mm[Hg] JAYMIE SUERO [facility] 06-20-2021 11:40-0400 Heart rate 87 /min JAYMIE SUERO [facility] 06-20-2021 11:40-0400 Respiratory rate 24 /min JAYMIE SUERO [facility] 06-20-2021 11:40-0400 Systolic blood pressure 162 mm[Hg] JAYMIE SUERO [facility] Encounters Encounter Date Encounter Type Care Provider Facility Start: 06-02-2025 Non-patient / Non-visit Dr. Karen Le DO -[facility] Work Phone: Start: 06-01-2025 ambulatory [...] Start: 04-16-2025 End: 04-16-2025 ambulatory TIGRE RESTREPO Facility:[facility] Start: 04-16-2025 End: 04-16-2025 Subsequent hospital visit by physician Ct [facility] Radiology Comment on above: Lung mass [R91.8] Start: 12-02-2024 Non-patient / Non-visit Dr. Bradley JOHNS -[facility] Start: 12-02-2024 Non-patient / Non-visit Dr. Anirudh dupree [facility] Work Phone: Start: 12-01-2024 End: 12-01-2024 ambulatory Anirudh Thompson Facility:[facility] Start: 12-01-2024 Non-patient / Non-visit Dr. Anirudh dupree [facility] Work Phone: Start: 12-01-2024 ambulatory Anirudh Thompson Facility:[facility] Start: 12-01-2024 End: 12-02-2024 Evaluation and management of inpatient Dr. Anirudh Thompson [facility] Work Phone: Start: 10-26-2024 End: [...] Start: 10-16-2024 End: 10-16-2024 ambulatory TIGRE RESTREPO Facility:[facility] Start: 10-16-2024 End: 10-16-2024 Subsequent hospital visit by physician Ct [facility] Radiology Comment on above: Pneumonia of both braydon ngs due to Pseudomonas species, unspecified part of lung (HCC) [J15.1] Start: 10-09-2024 End: 10-09-2024 Telephone encounter Tigre Restrepo MD Work Phone: Pulmonary Medicine Comment on above: Patient Request (Lana marvin) Start: 07-07-2024 ambulatory Jr [facility] Facility[facility] Start: 07-01-2024 End: 07-01-2024 Telephone encounter Tigre Restrepo MD Work Phone: Pulmonary Medicine Start: 06-24-2024 ambulatory Jr [facility] Facility:[facility] Start: 06-09-2024 End: 06-09-2024 Telephone encounter Claire Turner MD Work Phone: Cardiology Start: 06-05-2024 ambulatory CLAIRE TURNER [facility] ity:[facility] Start: 06-05-2024 End: 06-05-2024 Subsequent hospital visit by physician [facility] Work Phone: Cardiology Lab Comment on above: Murmur [R01.1] Start: 06-01-2024 End: 06-01-2024 Refill Tigre Restrepo MD Work Phone: Pulmonary Medicine Comment on above: Refill Request Start: 05-28-2024 End: 05-28-2024 Telephone encounter Tigre Restrepo MD Work Phone: [place] Provider Adult Comment on above: Results Start: 05-27-2024 End: 05-28-2024 Telephone encounter Tigre Restrepo MD Work Phone: [place] Provider Adult Start: 05-25-2024 End: 05-26-2024 Telephone encounter Tigre Restrepo MD Work Phone: Pulmonary Medicine Comment on above: Medication Request Start: 05-22-2024 End: 05-22-2024 Patient encounter procedure Claire Turner MD Work Phone: Cardiology Comment on above: Coronary artery dise ase due to lipid rich plaque (Primary Dx); Murmur Start: 05-19-2024 End: 05-19-2024 ambulatory Mhereen Crow MD Work Phone: Pulmonary Medicine Comment [...] 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 ([facility]) Start: 05-14-2024 End: 05-14-2024 Orders Only Mehreen [...] encounter Tigre Restrepo MD Work Phone: [facility] [place] Comment on above: Appointment (Schedul e biopsy ) Appointment Start: 04-28-2024 End: 04-29-2024 Telephone encounter Tigre Restrepo MD Work Phone: Pulmonary Medicine Comment on above: Cardiac Clearance Start: 04-21-2024 End: 04-21-2024 Patient encounter procedure Sahara Weldon MD Work Phone: Pulmonary Medicine Start: 04-21-2024 End: 04-21-2024 Telephone encounter Tigre Restrepo MD Work Phone: [place] Provider Adult Comment on above: Appointment Start: 04-21-2024 ambulatory TIGRE RESTREPO Facili ty:[facility] Start: 04-21-2024 End: 04-21-2024 Subsequent hospital visit by physician Injection Pet [facility] [place] [facility] Comment on above: Lung nodules [R91.8] Start: 04-10-2024 Telephone encounter Tigre Restrepo MD Work Phone: Pulmonary Medicine Start: 03-27-2024 Telephone encounter Tigre Restrepo MD Work Phone: Pulmonary Medicine Start: 03-27-2024 End: 03-27-2024 Subsequent hospital visit by physician Ct [facility]) Work Phone: Cat Scan Comment on above: Chest pain, unspecif ied type [R07.9] Start: 03-26-2024 Telephone encounter Tigre Restrepo MD Work Phone: Pulmonary Medicine Start: 03-25-2024 Telephone encounter Tigre Restrepo MD Work Phone: Pulmonary Medicine Comment on above: Received Outside [facility] Records ([facility]) Patient Update Start: 03-25-2024 End: 03-25-2024 Subsequent hospital visit by physician Ct [facility] ([facility]) Work Phone: Cat Scan Start: 03-24-2024 End: 03-24-2024 Subsequent hospital visit by physician [facility] Work Phone: Radiology Comment on above: Pulmonary emphysema, unspecified emphysema type (HCC) [J43.9] Start: 03-24-2024 End: 03-24-2024 ambulatory Pulm Work Phone: Pulmonary Medicine Comment on above: Spirometry Start: 03-24-2024 End: 03-24-2024 Patient encounter procedure Pulm [facility]ct Lab [facility] Work Phone: Pulmonary Medicine Comment on above: Lung nodules (Primar y Dx); Centrilobular emphysema (HCC); Chest pain on breathing; Cavitary lesion of lung; Allergy to environmental factors; Ex-smoker Start: 03-04-2024 Telephone encounter [facility] Provider Pul monary Medicine Comment on above: Referral Request Start: 12-20-2023 Non-patient / Non-visit Dr. Christi Ryan Work Phone: [facility] Work Phone: Start: 12-19-2023 Non-patient / Non-visit Dr. Christi Ryan Work Phone: [facility] Work Phone: Start: 12-18-2023 Non-patient / Non-visit Dr. Christi Ryan Work Phone: [facility] Work Phone: Start: 12-17-2023 Non-patient / Non-visit Dr. Christi Ryan Work Phone: [facility] Work Phone: Start: 12-17-2023 End: 12-20-2023 Evaluation and management of inpatient Dr. rJ Ryan Work Phone: [facility] Work Phone: Start: 12-15-2023 End: 12-15-2023 Emergency department patient visit JR RYAN Facility:[id number] Start: 12-11-2023 End: 12-11-2023 Emergency department patient visit [facility] Work Phone: Start: 10-29-2023 End: 10-29-2023 Emergency department patient visit [facility] Work Phone: Start: 07-09-2023 End: 07-09-2023 Emergency department patient visit [facility] Work Phone: Start: 01-22-2023 End: 01-22-2023 ambulatory [facility] Work Phone: Start: 01-22-2023 End: 01-22-2023 Patient encounter procedure [facility]-Cat Scan, [facility] Work Phone: Start: 08-30-2022 Non-patient / Non-visit Dr. Christi Ryan Work Phone: [facility] Start: 08-29-2022 Non-patient / Non-visit Dr. Christi Ryan Work Phone: [facility] Start: 08-28-2022 Non-patient / Non-visit Dr. Christi Ryan Work Phone: [facility] Start: 08-27-2022 Non-patient / Non-visit Dr. Christi Ryan Work Phone: [facility] Start: 08-26-2022 Non-patient / Non-visit Dr. Christi Ryan Work Phone: [facility] Start: 08-26-2022 End: 08-30-2022 Evaluation and management of inpatient Dr. Jr Ryan Work Phone: [facility]Medical Surgical 3 Start: 08-23-2022 End: 08-23-2022 Emergency department patient visit [facility] Start: 08-23-2022 End: 08-23-2022 Emergency department patient visit RADHA STAHL MD Facility:A Start: 08-23-2022 End: 08-23-2022 Emergency department patient visit ARCHANA CALLEJAS MD [facility] Start: 07-13-2022 End: 07-13-2022 ambulatory [facility] Work Phone: Start: 07-13-2022 End: 07-13-2022 Patient encounter procedure [facility], [facility] Start: 06-20-2021 End: 06-20-2021 Emergency department patient visit JAYMIE SUERO DO [facility] Start: 11-18-2020 End: 11-18-2020 Patient encounter procedure SAHARA JAY [facility] Procedures Date Procedure Procedure Detail Performing Clinician [...] ROOF Start: 08-26-2001 Arthroscopy of shoulder JAYMIE USERO DO Comment on above: RIGHT Start: 08-26-1991 [...] Author Start: 03-11-2027 Diabetes Screening Diabetes Screenin [facility] Start: 12-13-2026 Diabetes Screening Diabetes Screenin [facility] Start: 04-16-2026 End: 05-16-2026 CT Chest WO contrast CT CHEST WO IVCON Radiology Routine Lung nodules Expected: 04/16/2026, Expires: 05/16/2026 [facility] Work Phone: Comment on above: Expected: 04/16/2026 , Expires: 05/16/2026 Start: 08-13-2025 End: 08-13-2025 Patient encounter procedure 08/13/2025 9:00 AM EST Office Visit Cardiology [address] [address] Claire Turner MD [address] [place] [address] Was told he had a blockage on cath in [facility]. Also had cMRI in [place] which was concerning. Cardiology Comment on above: Was told he had a bl ockage on cath in [facility]. Also had cMRI in [place] which was concerning. Start: 06-02-2025 Patient discharge [facility] Start: 06-01-2025 End: 06-01-2025 Following clinical pathway protocol [facility] Start: 06-01-2025 Assessment of risk o f venous thromboembolism [facility] Start: 06-01-2025 Catheterization of vein [facility] Start: 06-01-2025 Incentive spirometry [facility] Start: 06-01-2025 Insertion of cathete r into peripheral vein [facility] Start: 06-01-2025 Physiotherapy of chest [facility] Start: 06-01-2025 Providing care accor ding to standard [facility] Start: 06-01-2025 Provision of activit y privileges [facility] Start: 06-01-2025 Referral for physica l therapy [facility] Start: 06-01-2025 Referral to occupati onal therapist [facility] Start: 06-01-2025 Referral to service [facility] Start: 06-01-2025 [facility] Start: 06-01-2025 Respiratory pathogen s DNA and RNA panel - Respiratory specimen by JELENA with probe detection [facility] Start: 06-01-2025 Verification routine [facility] Start: 06-01-2025 Admission procedure [facility] Start: 06-01-2025 Hospital admission, emergency, from emergency room, medical nature [facility] Start: 06-01-2025 [facility] Start: 04-26-2025 Influenza vaccination Influenza Vacc ine (#1) [facility] Start: 04-16-2025 End: 04-16-2025 Patient encounter procedure Radiology Comment on above: CT COPD Start: 04-15-2025 End: 11-15-2025 CT Chest WO contrast CT CHEST WO IVCON Radiology Routine Lung mass Expected: 04/15/2025, Expires: 11/15/2025 [facility] Work Phone: Comment on above: Expected: 04/15/2025 , Expires: 11/15/2025 Start: 12-02-2024 Patient discharge [facility] Start: 12-01-2024 Oxygen therapy [facility] Start: 12-01-2024 Respiratory Culture Respiratory Cult ure [facility] Start: 12-01-2024 Following clinical p athway protocol [facility] Start: 12-01-2024 Ambulation without limitation [facility] Start: 12-01-2024 Assessment of risk o f venous thromboembolism [facility] Start: 12-01-2024 Elevation of head of bed [facility] Start: 12-01-2024 Insertion of cathete r into peripheral vein [facility] Start: 12-01-2024 Measuring intake and output [facility] Start: 12-01-2024 Notification of physician [facility] Start: 12-01-2024 Patient education [facility] Start: 12-01-2024 Physiotherapy of chest [facility] Start: 12-01-2024 Providing care accor ding to standard [facility] Start: 12-01-2024 [facility] Start: 12-01-2024 Bacteria identified in Sputum by Culture [facility] Start: 12-01-2024 Legionella pneumophi la Ag [Presence] in Urine [facility] Start: 12-01-2024 Streptococcus pneumo niae antigen assay [facility] Start: 12-01-2024 Verification routine [facility] Start: 12-01-2024 Admission procedure [facility] Start: 12-01-2024 End: 12-01-2024 Hospital admission, emergency, from emergency room, medical nature [facility] Start: 12-01-2024 Inhalation therapy procedure [facility] Start: 12-01-2024 [facility] Start: 10-16-2024 End: 01-15-2025 Basic metabolic 2000 panel - Serum or Plasma BASIC METABOLIC PANEL Lab Routine Lung mass Expected: 10/16/2024, Expires: 01/15/2025 [facility] Comment on above: Expected: 10/16/2024 , Expires: 01/15/2025 Start: 10-16-2024 End: 01-15-2025 CBC panel - Blood by Automated count COMPLETE BLOOD COUNT Lab Routine Lung mass Expected: 10/16/2024, Expires: 01/15/2025 [facility] Comment on above: Expected: 10/16/2024 , Expires: 01/15/2025 Start: 10-16-2024 End: 10-16-2024 Patient encounter procedure Radiology Comment on above: Pneumonia of both braydon ngs due to Pseudomonas species, unspecified part of lung (HC... COPD Start: 08-26-2024 Advance Directive Discussion Advance Directive Discussion [facility] Start: 06-05-2024 End: 06-05-2024 Patient encounter procedure 06/05/2024 9:00 AM EDT Appointment Cardiology Lab [address] [place] [address] Murmur [R01.1] Cardiology Lab Comment on above: Murmur [R01.1] Start: 05-25-2024 End: 05-25-2024 Admission to same day surgery center 05/25/2024 9:30 AM EDT - 05/25/2024 11:30 AM EDT Surgery Admitting [address] [address] Mehreen Crow MD [address] [place] [address] BRONCHOSCOPY FLEXIBLE ADULT Admitting Comment on above: BRONCHOSCOPY FLEXIBL E ADULT Start: 05-25-2024 End: 05-25-2024 [facility] incl fluor gdnce dx w/cell washg spx BRONCHOSCOPY FLEXIBLE ADULT Bronchiolar disease 05/25/2024 9:30 AM EDT PULM LAB H23 Start: 05-25-2024 Subsequent hospital visit by physician 05/25/2024 9:30 AM EDT Hospital Encounter Admitting [address] [address] Mehreen Crow MD [address] [place] [address] Bronchiolar disease [J98.09] Admitting Comment on above: Bronchiolar disease [J98.09] Start: 05-22-2024 End: 05-22-2025 Echocardiography ECHO Cardiology Routine Murmur Expected: 05/22/2024, Expires: 05/22/2025 [facility] Work Phone: Comment on above: Expected: 05/22/2024 , Expires: 05/22/2025 Start: 05-22-2024 End: 05-22-2024 Patient encounter procedure 05/22/2024 8:00 AM EDT Office Visit Cardiology [address] [id number] Claire Turner MD [address] [place], [place] [id number] Was told he had a blockage on cath in [facility]. Also had cMRI in [place] which was concerning. Cardiology Comment on above: Was told he had a bl ockage on cath in [facility]. Also had cMRI in [place] which was concerning. Start: 05-15-2024 End: 05-15-2024 Patient encounter procedure Pulmonary Medicine Comment on above: Established Visit Pre Op Testing Start: 04-26-2024 Covid-19 Vaccine ( season) Covid-19 Vaccine ( season) [facility] Start: 04-26-2024 Covid-19 Vaccine ( season) Covid-19 Vaccine ( season) [facility] Start: 04-26-2024 Influenza vaccination Influenza Vacc ine (#1) [facility] Start: 04-24-2024 Lipid panel Lipid Screening [facility] Start: 03-27-2024 End: 03-27-2024 Patient encounter procedure 03/27/2024 9:40 AM EDT Appointment Cat Scan [address] [place] [id number] CCN was accepted, Cat Scan Comment on above: CCN was accepted, Start: 03-25-2024 End: 03-25-2024 Patient encounter procedure 03/25/2024 8:40 AM EDT Appointment Cat Scan [address] [place] [id number] Chest pain on breathing [R07.1] Cat Scan Comment on above: Chest pain on breath ing [R07.1] Start: 03-24-2024 End: 06-23-2024 Alpha 1 antitrypsin [Mass/volume] in Serum or Plasma [id number] Lab Routine Centrilobular emphysema (HCC) Expected: 03/24/2024, Expires: 06/23/2024 [facility] Comment on above: Expected: 03/24/2024 , Expires: 06/23/2024 Start: 03-24-2024 End: 06-23-2024 CREATININE BLD CREATININE BLD Lab Routine Lung nodules Expected: 03/24/2024, Expires: 06/23/2024 [facility] Comment on above: Expected: 03/24/2024 , Expires: 06/23/2024 Start: 03-24-2024 End: 03-24-2024 Patient encounter procedure Radiology Comment on above: Pulmonary emphysema, unspecified emphysema type (HCC) [J43.9] Provider: [facility] Start: 03-24-2024 End: 03-24-2024 ambulatory Pulmonary Medicine Comment on above: Provider: [facility] Start: 12-20-2023 Patient discharge [facility] Start: 12-19-2023 Physiotherapy of chest [facility] Start: 12-17-2023 Oxygen therapy [facility] Start: 12-17-2023 Ambulation without limitation [facility] Start: 12-17-2023 Assessment of risk o f venous thromboembolism [facility] Start: 12-17-2023 Inhalation therapy procedure [facility] Start: 12-17-2023 Insertion of cathete r into peripheral vein [facility] Start: 12-17-2023 Providing care accor ding to standard [facility] Start: 12-17-2023 Respiratory secretio n precautions [facility] Start: 12-17-2023 Following clinical p athway protocol [facility] Start: 12-17-2023 Legionella pneumophi la Ag [Presence] in Urine [facility] Start: 12-17-2023 Streptococcus pneumo niae antigen assay [facility] Start: 12-17-2023 End: 12-17-2023 [facility] Start: 12-17-2023 Hospital admission, emergency, from emergency room, medical nature [facility] Start: 12-17-2023 Admission procedure [facility] Start: 12-17-2023 End: 12-17-2023 Blood culture [facility] Start: 12-17-2023 Bacteria identified in Blood by Culture Blood Culture [facility] Start: 12-17-2023 Bacteria identified in Urine by Culture [facility] Start: 12-17-2023 Microscopic observat ion [Identifier] in Unspecified specimen by Gram stain [facility] Start: 12-17-2023 Respiratory Culture Respiratory Cult ure [facility] Start: 12-17-2023 Respiratory microbia l culture Respiratory Culture [facility] Start: 12-17-2023 [facility] Start: 12-17-2023 Patient referral to dietitian [facility] Start: 12-17-2023 [facility] Start: 12-11-2023 [facility] Start: 12-11-2023 [facility] Start: 10-29-2023 [facility] Start: 10-29-2023 [facility] Start: 08-26-2023 Advance Directive Discussion Advance Directive Discussion [facility] Start: 08-26-2023 Behavioral Health Screening Behavioral Health Screening [facility] Start: 07-09-2023 [facility] Start: 04-26-2023 Covid-19 Vaccine ( season) Covid-19 Vaccine () [facility] Start: 08-30-2022 Patient discharge [facility] Work Phone: Start: 08-27-2022 Inhalation therapy procedure [facility] Work Phone: Start: 08-26-2022 Dual pressure sponta neous ventilation support [facility] Work Phone: Start: 08-26-2022 Respiratory secretio n precautions [facility] Work Phone: Start: 08-26-2022 Assessment of risk o f venous thromboembolism [facility] Work Phone: Start: 08-26-2022 Elevation of head of bed [facility] Work Phone: Start: 08-26-2022 Incentive spirometry [facility] Work Phone: Start: 08-26-2022 Insertion of cathete r into peripheral vein [facility] Work Phone: Start: 08-26-2022 Oxygen therapy [facility] Work Phone: Start: 08-26-2022 Patient education [facility] Work Phone: Start: 08-26-2022 Physiotherapy of chest [facility] Work Phone: Start: 08-26-2022 Providing care accor ding to standard [facility] Work Phone: Start: 08-26-2022 Provision of activit y privileges [facility] Work Phone: Start: 08-26-2022 Referral to occupati onal therapist [facility] Work Phone: Start: 08-26-2022 Referral to service [facility] Work Phone: Start: 08-26-2022 [facility] Work Phone: Start: 08-26-2022 Following clinical p athway protocol [facility] Work Phone: Start: 08-26-2022 Legionella pneumophi la Ag [Presence] in Urine [facility] Work Phone: Start: 08-26-2022 Streptococcus pneumo niae antigen assay [facility] Work Phone: Start: 08-26-2022 Verification routine [facility] Work Phone: Start: 08-26-2022 Admission procedure [facility] Work Phone: Start: 08-26-2022 [facility] Work Phone: Start: 08-26-2022 Blood culture [facility] Work Phone: Start: 08-26-2022 End: 08-27-2022 [facility] Work Phone: Start: 08-23-2022 [facility] Work Phone: Start: 06-17-2021 Annual PCP Team Level Vial Inside Grinder ruba Disease Visit Annual PCP Team Chronic Disease Visit [facility] Start: 01-10-2019 Screening for malign ant neoplasm of colon [facility] Start: 01-01-2016 Pneumococcal Vaccine : 65+ (1 of 1 - PCV) Pneumococcal Vaccine: 65+ (1 of 1 - PCV) [facility] Start: 2010 RSV Vaccine (1 - 1-d ose 60+ series) RSV Vaccine (1 - 1-dose 60+ series) [facility] Start: 2010 RSV Vaccine (1 - Ris k 60-74 years 1-dose series) RSV Vaccine (1 - Risk 60-74 years 1-dose series) [facility] Start: 09-25-2005 Urine microalbumin profile DTa P,Tdap,Td Vaccine (1 - Tdap) [facility] Start: 2000 Shingrix Vaccine (1 of 2) Odom grix Vaccine (1 of 2) [facility] Start: 01-01-1996 Screening for malign ant neoplasm of colon [facility] Start: 1980 Zoledronic acid therapy Alpha- 1 Antitrypsin Deficiency Screening [facility] Start: 1969 Pneumococcal Vaccine : 50+ (1 of 2 - PCV) Pneumococcal Vaccine: 50+ (1 of 2 - PCV) [facility] Start: 1968 Anxiety Screening Anxiety Screening [facility] Start: 1968 BP Controlled (<130/80) BP Controlle d (<130/80) [facility] Start: 1968 Depression Screening Depression Scre ening [facility] Start: 1968 Spirometry Spirometry [facility] Start: 1956 Pneumococcal Vaccine : 65+ (1 of 2 - PCV) Pneumococcal Vaccine: 65+ (1 of 2 - PCV) [facility] Start: 1950 Abdominal aortic ane urysm screening Abdominal Aortic Aneurysm Screening [facility] Bacteria identified in Blood by Culture Blood Culture [facility] Work Phone: Bacteria identified in Sputum by Respiratory culture [facility] Blood culture [facility] Work Phone: End: 04-23-2025 CT Chest WO contrast CT CHEST WO IVCON Radiology Routine Lung nodules 1 Occurrences starting 03/24/2024 until 04/23/2025 [facility] Work Phone: Comment on above: 1 Occurrences starti ng 03/24/2024 until 04/23/2025 End: 06-13-2025 CT Chest WO contrast CT CHEST WO IVCON Radiology Routine Multiple nodules of lung 1 Occurrences starting 05/14/2024 until 06/13/2025 [facility] Work Phone: Comment on above: 1 Occurrences starti ng 05/14/2024 until 06/13/2025 CT Chest WO contrast CT CHEST WO IVCON Radiology Routine Pneumonia of both lungs due to Pseudomonas species, unspecified part of lung (HCC) 10/16/2024 7:11 AM EST [facility] Work Phone: CT Chest WO contrast CT CHEST WO IVCON Radiology Routine Lung mass 04/16/2025 8:58 AM EDT [facility] Work Phone: End: 04-23-2025 CTA Pulmonary arteries for pulmonary embolus W contrast IV CT CHEST W IVCON PE Radiology STAT Chest pain on breathing 1 Occurrences starting 03/24/2024 until 04/23/2025 [facility] Comment on above: 1 Occurrences starti ng 03/24/2024 until 04/23/2025 End: 04-25-2025 CTA Pulmonary arteries for pulmonary embolus W contrast IV CT CHEST W IVCON PE Radiology KERRY Chest pain, unspecified type 1 Occurrences starting 03/26/2024 until 04/25/2025 [facility] Work Phone: Comment on above: 1 Occurrences starti ng 03/26/2024 until 04/25/2025 Microorganism identi fied in Unspecified specimen by Culture [facility] Patient Education [facility] Work Phone: Patient referral [facility] Work Phone: End: 04-26-2025 PET+CT Guidance for localization of tumor of Skull base to mid-thigh-- W [id number] IV NM PET/CT SKULL-THIGH INITIAL Radiology KERRY Lung nodules 1 Occurrences starting 03/27/2024 until 04/26/2025 [facility] Work Phone: Comment on above: 1 Occurrences starti ng 03/27/2024 until 04/26/2025 Immunizations Immunization Date Immunization Notes Care Provider Lily henry 06-02-2025 influenza, high dose seasonal, preservative-free Dr. Vivi Pike DO Work Phone: [facility] 09-11-2016 influenza virus vaccine, unspecified formulation Ccf Provider [facility] 09-24-2005 tetanus and diphther ia toxoids, adsorbed, preservative free, for adult use (2 Lf of tetanus toxoid and 2 Lf of diphtheria toxoid) [facility] Provider [facility] Payers Date Payer Category Payer Unknown [id number] 2023 Private Health Insurance [facility] [id number] 2023 Unknown [id number] 2023 Unknown [id number] 2022 Self-pay [id number] 1950 Unknown [id number] Unknown [id number] Unknown [id number] Unknown [id number] Unknown [id number] Unknown [id number] Unknown [id number] Unknown [id number] Unknown [id number] Unknown [id number] Unknown [id number] Social History Date Type Detail Facility Start: 01-08-2018 End: 06-01-2025 Ex-smoker (finding) [facility] Sex Assigned At [facility] Start: 05-01-2021 End: 12-17-2023 Tobacco smoking status INIS Unknown if ever smoked [facility] Start: 1950 Sex Assigned At Male W [facility] Start: 10-24-1969 End: 10-24-2005 History of tobacco use Current smoker [facility] Start: 10-24-1969 End: 10-24-2005 History of tobacco use Cigarette Smoker [facility] Start: 01-08-2018 End: 12-15-2023 Cigarettes smoked current (pack per day) - Reported 0.5 [facility] Start: 01-08-2018 End: 05-15-2024 Tobacco use and exposure Smokeless tobacco non-user [facility] Start: 06-17-2020 End: 04-16-2025 Alcohol intake Current drinker of alcohol (finding) [facility] Start: 06-17-2020 End: 12-15-2023 Tobacco use panel [facility] Start: 07-27-2012 Adult Depression Screening Assessment 0 [facility] Start: 1950 Sex Assigned At Not on file [facility] Start: 12-01-2024 End: 12-02-2024 Sex Male (finding) [facility] Goals Date Patient Goal Desired Activity /State Functional Status Date Assessment Result Facility 06-02-2025 Functional status Ambulates [facility] Work Phone: 12-02-2024 Functional status Ambulates;Up ad juan josé [facility] Work Phone: 12-20-2023 Functional status Ambulates [facility] Work Phone: 08-30-2022 Functional status Patient Activity Chair [facility] Work Phone: 08-30-2022 Functional status Independent [facility] Work Phone: 11-23-2014 Are you deaf, or do you have serious difficulty hearing Yes 11/23/2014 6:33 PM Rodrigo Perry LPN Yes [facility] 11-23-2014 Are you blind, or do you have serious difficulty seeing, even when wearing glasses No 11/23/2014 6:33 PM Rodrigo Perry LPN No [facility] 11-23-2014 Do you have serious difficulty walking or climbing stairs No 11/23/2014 6:33 PM Rodrigo Perry LPN No [facility] 11-23-2014 Do you have difficul ty dressing or bathing No 11/23/2014 6:33 PM Rodrigo Perry LPN No [facility] 11-23-2014 Because of a physica l, mental, or emotional condition, do you have difficulty doing errands alone such as visiting a physician's office or shopping No 11/23/2014 6:33 PM Rodrigo Perry LPN No [facility] Mental Status Date Assessment Result Facility 06-02-2025 Cognitive function Voice/Name [facility] Work Phone: 12-01-2024 Cognitive function Voice/Name [facility] Work Phone: 12-20-2023 Cognitive function Voice/Name [facility] Work Phone: 08-30-2022 Cognitive function Voice/Name [facility] Work Phone: 11-23-2014 Because of a physica l, mental, or emotional condition, do you have serious difficulty concentrating, remembering, or making decisions No 11/23/2014 6:33 PM EDT Rodrigo Rojas LPN No [facility] Clinical Notes 06-20-2021 to 06-02-2025 Note Date & Type Note Facility 06-02-2025 Consult note [facility] 06-02-2025 Discharge summary [facility] 06-02-2025 Note [facility] Medical Records Department [address] [place] [address] Discharge Summary 06/02/25 1153 MR#: [id number] Acct: [id number] Name: BEATRIS QUINN Eligio Rep #: [id number] : 1950 74 From: Karen Le DO PCP: VIVEK Yañez Status:ADM IN [id number] Providers Date of Admission: 06/01/25 Date of [...] who presented to the emergency department at [facility] on 06/01/2025 with chief complaint of shortness [...] His initial t (more content not included)... [facility] 06-01-2025 History and physi florinda note Note Date/Time June 01, 2025 5:17pm [facility] Medical Records Department [address] [place] [address] H&P Exam - Hospitalist 06/01/25 1056 MR#: [id number] Acct: [id number] Name: BEATRIS QUINN Rep #:[id number] : 1950 74 From: Karen Le DO PCP: VIVEK Yañez Status:AD M IN [place] [facility] [id number] HPI - General General Date of Admission: 06/01/25 Date of Service: 06/01/25 Chief Complaint: Shortness of breath HPI Narrative BEATRIS QUINN, is a 74 M who presented to the emergency department at [facility] on 06/01/2025 with chief complaint of shortness [...] made. He will be admitted to [facility] and at the time of admissionI do anticipate at least 2 midnight stay. [facility] Medical History COPD (chronic obstructive pulmonary disease) Hypertension Aortic stenosis Elevated coronary artery calcium score Urinary retention Heart murmur Anxiety On home oxygen therapy Acute hypoxemic respiratory failure Pneumonia COPD (chronic obstructive pulmonary disease) [place] (hard of hearing) Hypertension Home Medications ?Medication [...] 71.4 H, Lymph % (Auto) 15.9 L, [place] % (Auto) 9.4, Eos % (Auto) 2.2, [...] No new consolidation. 2. Granulomas. Reading Location: [facility] Assessment & Plan Assessment/Plan (1) Hypoxia: [...] of admission Charges/Coding Visit Charges Inpatient E&M: 44064 Init Hosp L2 06/01/25 1717 <Electronically signed by Karen Le DO> Cosigner Signature (if applicable): CC: TUBE CLEANING OPERATOR-C Michelle Ferraro; Dr. Karen Le DO~ Signed [facility] Work Phone: 1(270) 990-104010-07-2025 History and physical note [facility] Medical Records Department [address] [place] [address] H&P Exam - Hospitalist 06/01/25 1056 MR#: [id number] Acct: [id number] Name: BEATRIS QUINN Rep #:[id number] : 1950 74 From: Karen Le DO PCP: Michelle Ferraro, VIVEK Status:AD M IN [place] [facility] [id number] HPI - General General Date of Admission: 06/01/25 Date of Service: 06/01/25 Chief Complaint: Shortness of breath HPI Narrative BEATRIS QUINN, is a 74 M who presented to the emergency department at [facility] on 06/01/2025 with chief complaint of shortness [...] made. He will be admitted to [facility] and at the time of admissionI do anticipate at least 2 midnight stay. [facility] Medical History COPD (chronic obstructive pulmonary disease) Hypertension Aortic stenosis Elevated coronary artery calcium score Urinary retention Heart murmur Anxiety On home oxygen therapy Acute hypoxemic respiratory failure Pneumonia COPD (chronic obstructive pulmonary disease) [place] (hard of hearing) Hypertension Home Medications ?Medication [...] 71.4 H, Lymph % (Auto) 15.9 L, [place] % (Auto) 9.4, Eos % (Auto) 2.2, [...] No new consolidation. 2. Granulomas. Reading Location: [facility] Assessment & Plan Assessment/Plan (1) Hypoxia: [...] of admission Charges/Coding Visit Charges Inpatient E&M: 38469 Init Hosp L2 06/01/25 1717 Cosigner Signature (if applicable): CC: TUBE CLEANING OPERATORHadley Ferraro; Dr. Karen Le, DO~ Signed [facility]10-07-2025 Evaluation note* Diagnosis Onset Date Resolution Status Admit Date Elevated troponin acute June 01, 2025 12:28pm Hypoxia acute June 01, 2 025 12:28pm Increased sputum production acute June 01, 2025 12:28pm Pulmonary nodules acute June 01, 2025 12:28pm [facility] Work Phone: 1(995) 604-754210-07-2025 Discharge summary Author Vivi Pike [facility] Note Date/Time June 01, 2025 12 :23pm [facility] Medical Records Department [address] [facility] [place] [address] Emergency Department Summary 06/01/25 MR#: [id number] Acct: [id number] Name: BEATRIS QUINN Rep #:[id number] : 1950 74 From: Vivi Chen PCP: [...] Recent immobilization, Recent surgery or Recent travel [facility] Medical History Aortic stenosis Elevated coronary artery calcium score Urinary retention Heart murmur Anxiety On home oxygen therapy Acute hypoxemic respiratory failure Pneumonia COPD (chronic obstructive pulmonary disease) [place] (hard of hearing) Hypertension Home Medications ?Medication [...] on emphysematous changes. Patient be admitted to [facility]. Lab Data Attestation: I reviewed the [...] 71.4 H Lymph % (Auto) 15.9 L [place] % (Auto) 9.4 Eos % (Auto) 2.2 [...] No new consolidation. 2. Granulomas. Reading Location: [id number] Chest CTA 06/01/25 11:12 IMPRESSION: No evidence of pulmonary embolism. Bilateral pulmonary nodules superimposed on emphysematous changes. Reading Location: [id number] Rhythm Strip Rhythm Strip: Sinus Rhythm Rate: [...] disease, Hypoxia Disposition Disposition: Acute Care Hospital [facility] What to do if you have Problems For any increased pain, shortness of breath, bleeding, nausea or vomiting, chestpain, or any unexpected problems, contact your Primary Care Provider. Call [facility] ([phone]) or report to the closest Emergency Room. Call 911 if necessary. 06/01/25 1223 <Electronically signed by Vivi Pike DO> Cosigner Signature (if applicable): CC: ROWENA FERRARO ~ Signed [facility] Work Phone: 1(970) 294-526410-07-2025 Discharge summary [facility] Medical Records Department [address] [place] [address] Emergency Department Summary 06/01/25 MR#: [id number] Acct: [id number] Name: BEATRIS QUINN Rep #:[id number] : 1950 74 From: Vivi Chen PCP: [...] Recent immobilization, Recent surgery or Recent travel [facility] Medical History Aortic stenosis Elevated coronary artery calcium score Urinary retention Heart murmur Anxiety On home oxygen therapy Acute hypoxemic respiratory failure Pneumonia COPD (chronic obstructive pulmonary disease) [place] (hard of hearing) Hypertension Home Medications ?Medication [...] She would like to CTA before going [facility] to ensure he does not have a pulmonary emboli. This is obtained and negative for any PE. Does show bilateral pulmonary nodule superimposed on emphysematous changes. Patient be admitted to [facility] floor. Lab Data Attestation: I reviewed [...] 71.4 H Lymph % (Auto) 15.9 L [place] % (Auto) 9.4 Eos % (Auto) 2.2 [...] No new consolidation. 2. Granulomas. Reading Location: [facility] Chest CTA 06/01/25 11:12 IMPRESSION: No evidence of pulmonary embolism. Bilateral pulmonary nodules superimposed on emphysematous changes. Reading Location: [id number] Rhythm Strip Rhythm Strip: Sinus Rhythm Rate: [...] disease, Hypoxia Disposition Disposition: Acute Care Hospital [facility] What to do if you have Problems For any increased pain, shortness of breath, bleeding, nausea or vomiting, chestpain, or any unexpected problems, contact your Primary Care Provider. Call [facility] ([phone]) or report tothe closest Emergency Room. Call 911 if necessary. 06/01/25 1223 Cosigner Signature (if applicable): CC: ROWENA FERRARO ~ Signed [facility]10-07-2025 Radiology Diagnostic study note [facility] Imaging Services [address] [place] [address] CTA Chest W/WO Contrast MR#: [id number] Acct: [id number] Name: BEATRIS QUINN Rep #: [id number] : 1950 M 74 From: Jose Brsicoe MD PCP: ROWENA FERRARO Status: REG ER Study:CTA Chest W/WO Contrast Date of Exam: 06/01/25 Exam# [id number] Ordering Dr: Kira Le DO PROCEDURE: CTA [...] nodules superimposed on emphysematous changes. Reading Location: [facility] CC: Dr. Karen Le DO; ROWENA FERRARO ~ Well Logging Captain: Signed [facility]10-07-2025 Radiology Diagnostic study note [facility] Imaging Services [address] [place] [address] Chest PA and Lateral MR#: [id number] Acct: [id number] Name: BEATRIS QUINN Rep #: [id number] : 1950 M 74 From: Chidi Powell MD PCP: ROWENA FERRARO Status: REG ER Study:Chest PA and Lateral Date of Exam: 06/01/25 Exam# [id number] Ordering Dr: Deshaun Pike DO PROCEDURE: CHEST [...] No new consolidation. 2. Granulomas. Reading Location: [id number] CC: Dr. Vivi Pike DO; ROWENA FERRARO ~ Well Logging Captain: Signed [facility]08-22-2025 NoteHNO ID: [id number] Author: TIGRE RESTREPO MD Service: ? Author [...] uysing prednisone 5 mg daily (given by [facility] physician) No weight loss, no fever Ct [...] tablet by mouth two times a day. vcagaefskdu-wgjefvliq-qxyqefck (TRELEGY ELLIPTA) 100-62.5-25 mcg inhalation powder Inhale [...] tree-in-bud distribution which are most likely infectious/inflammatory. Well Logging Captain: NESTOR Transcribe Date/Time: Oct 20 2024 1:36P Dictated by : MICAELA FONTAINE MD This examination was interpreted and the report reviewed and electronically signed by: MICAELA FONTAINE MD on Oct 20 2024 2:05PM EST IMPRESSION: 1. Lung nodules - ICD9: 793.19, ICD10: R91.8 (primary diagnosis) Ct chest 02/06/2024: Lymphadenopathy up to 14 mm Multiple nodules, some are calcified, others have neoplastic appearance, largest 80i70cl lateral segment RML. Cavitary type lesion EDWIN 53H67MA Multiple large opacities, one of them is [...] size compared to 06 (more content not included)...[facility]08-22-2025 History of Present illness Narrative* Tigre [...] uysing prednisone 5 mg daily (given by [facility] physician) No weight loss, no fever Ct [...] tablet by mouth two times a day. blezpsmfeih-vuykgdstt-vxirktfo (TRELEGY ELLIPTA) 100-62.5-25 mcg inhalation powder Inhale [...] tree-in-bud distribution which are most likely infectious/inflammatory. Well Logging Captain: NESTOR Transcribe Date/Time: Oct 20 2024 1:36P Dictated by : MICAELA FONTAINE MDThis examination was interpreted and the report reviewed and electronically signed by: MICAELA FONTAINE MD on Oct 20 2024 2:05PM EST IMPRESSION: 1. Lung nodules - ICD9: 793.19, ICD10: R91.8 (primary diagnosis) Ct chest 02/06/2024: Lymphadenopathy up to 14 mm Multiple nodules, some are calcified, others have neoplastic appearance, largest 27n46pp lateral segment RML. Cavitary type lesion EDWIN 55P14FR Multiple large opacities, one of them is [...] ago Tigre Restrepo MD, MATT Staff, Respiratory [facility] [1] Social History Tobacco Use Smoking status: Former Current packs/day: 0.00 Average packs/day: 0.5 packs/day for 36.0 years (18.0 ttl pk-yrs) Types: Cigarettes Start date: 10/24/1969 Quit date: 10/24/2005 Years since quittin.4 Smokeless tobacco: Never Substance Use Topics Alcohol use: Yes Drug use: No [facility] History of Present illness Narrative* Alina [...] PATIENT PRESENTS WITH AN IMPLANTABLE OR ATTACHED WOOD FENCE INSTALLER: No RADIOLOGY DEPARTMENT: CT; Exam(s) Completed: Chest PERIPHERAL IV DATA: Not applicable SIGNED BY: RT Noah(Jennifer) April 16, 2025 8:56 AM documented in this encounterH[facility]08-22-2025 NoteHNO ID: [id number] Author: ALINA GOOD RT(Jennifer) Service: Radiology Author [...] PATIENT PRESENTS WITH AN IMPLANTABLE OR ATTACHED WOOD FENCE INSTALLER: No RADIOLOGY DEPARTMENT: CT; Exam(s) Completed: Chest PERIPHERAL IV DATA: Not applicable SIGNED BY: RT Noah(Jennifer) April 16, 2025 8:56 [id number] Discharge summary Author Anirudhkelly Thompson [facility] Note Date/Time December 02, 2024 3:55 pm [facility] Medical Records Department [address] [place] [address] Discharge Summary 12/02/24 1532 MR#: [id number] Acct: [id number] Name: BEATIRS QUINN Rep #:[id number] : 1950 73 From: Anirudhkelly Thompson DO PCP: VIVEK Yañez Status:AD IN Location: [place] [id number] Providers Date of Admission: 12/01/24 Primary [...] 95.2 H, Lymph % (Auto) 2.2 L, [place] % (Auto) 2.0, Eos % (Auto) 0.0, [...] Anirudh Thompson Primary Care Provider: Michelle Ferraro TUBE CLEANING OPERATOR Discharge Orders/Prescriptions Prescriptions: New prednisone 20 mg [...] Self Care Charges/Coding Visit Charges Inpatient E&M: 05303 Disch Hosp >30min 12/02/24 1536 <Electronically signed [...] Thompson DO> Cosigner Signature (if applicable): cc: TUBE CLEANING OPERATOR-Deshaun Ferraro; Dr. Anirudh Thompson DO ~* Signed [facility] Work Phone: 1(977) 962-485804-09-2025 Consult note [facility] Medical Records Department [address] [place] [address] Counseling Note - Pharmacy 12/02/24 1632 MR#: [id number] Acct: [id number] Name: BEATRIS QUINN Rep #:[id number] : 1950 73 From: Niurka Quinn PCP: VIVEK Yañez Status:AD M IN Y Location: [place] [address] Pharmacy [facility] Service has performed discharge medication reconciliation [...] Signature (if applicable): Date CC: ~ Signed [facility]04-09-2025 Discharge summary [facility] Medical Records Department [address] [place] [address] Discharge Summary 12/02/24 1532 MR#: [id number] Acct: [id number] Name: BEATRIS QUINN Eligio Rep #:[id number] : 1950 73 From: Anirudh Thompson DO PCP: VIVEK Yañez Status:AD M IN Location: [facility] [id number]- [id number] Providers Date of Admission: 12/01/24 Primary [...] 95.2 H, Lymph % (Auto) 2.2 L, [place] % (Auto) 2.0, Eos % (Auto) 0.0, [...] Anirudh Thompson Primary Care Provider: Michelle Ferraro TUBE CLEANING OPERATOR Discharge Orders/Prescriptions Prescriptions: New prednisone 20 mg [...] Self Care Charges/Coding Visit Charges Inpatient E&M: 28731 Disch Hosp >30min 12/02/24 1536 Cosigner Signature (if applicable): CC: VIVEK Ferraro; Dr. Anirudh Thompson DO~ Signed ADDENDUM by Dr. Anirudh Thompson DO on 12/02/24 at 1555 Addendum Oxygen testing reviewed and patient is ambulatory in home and in the community and requires home oxygen with portability. 12/02/24 1555 Cosigner Signature (if applicable): cc: VIVEK Ferraro; Dr. Anirudh Thompson DO ~* Signed [facility]04-09-2025 [facility] Medical Records Department [address] [place] [address] Discharge Summary 12/02/24 1532 MR#: [id number] Acct: [id number] Name: BEATRIS QUINN Rep #: [id number] : 1950 73 From: Anirudh Thompson DO PCP: VIVEK Yañez Status:ADM IN Location: [facility] [id number] Providers Date of Admission: 12/01/24 Primary Care [...] 95.2 H, Lymph % (Auto) 2.2 L, [place] % (Auto) 2.0, Eos % (Auto) 0.0, [...] Sputum, Expectorated/Coughed Gram St (more content not included)...[facility]04-09-2025 Progress note Author Anirudh Thompson [facility] Note Date/Time December 02, 2024 1:20 pm [facility] Medical Records Department [address] [place] [address] Progress Note - Hospitalist 12/02/24814 MR#: [id number] Acct: [id number] Name: BEATRIS QUINN Rep #:[id number] : 1950 73 From: Anirudh Thompson DO PCP: CHUCKY YañezC Status:AD M IN Location: [place] [id number]- [id number] Reason for Visit Reason for Visit: [...] 95.2 H, Lymph % (Auto) 2.2 L, [place] % (Auto) 2.0, Eos % (Auto) 0.0, [...] full code. Charges/Coding Visit Charges Inpatient E&M: 29259 Subs Hosp L2 12/02/24 1320 <Electronically signed by Anirudh Thompson DO> Cosigner Signature (if applicable): CC: ~ Signed [facility] Work Phone: 1(339) 683-552104-09-2025 Progress note [facility] Medical Records Department [address] [place] [address] Progress Note - Hospitalist 12/02/24 0815 MR#: [id number] Acct: [id number] Name: BEATRIS QUINN Rep #:[id number] : 1950 73 From: Anirudh Thompson DO PCP: Michelle Ferraro NP-C Status:AD IN Location: [place] [address] Reason for Visit Reason for Visit: Diagnoses [...] 95.2 H, Lymph % (Auto) 2.2 L, [place] % (Auto) 2.0, Eos % (Auto) 0.0, [...] full code. Charges/Coding Visit Charges Inpatient E&M: 99747 Subs Hosp L2 12/02/24 1320 Cosigner Signature (if applicable): CC: ~ Signed [facility]04-08-2025 History and physical note Author Anirudh Thompson [facility] Note Date/Time December 01, 2024 8:47 am [facility] Medical Records Department [address] [place] [address] H&P Exam - Hospitalist 12/01/24 0831 MR#: [id number] Acct: [id number] Name: BEATRIS QUINN Rep #:[id number] : 1950 73 From: Anirudh Thompson DO [...] better with rest. CP does not radiate. [facility] Medical History Aortic stenosis Elevated coronary artery calcium score Urinary retention Heart murmur Anxiety On home oxygen therapy Acute hypoxemic respiratory failure Pneumonia COPD (chronic obstructive pulmonary disease) [place] (hard of hearing) Hypertension Home Medications ?Medication [...] (400 unit) capsule 268 mg PO DAILY [facility] 12/17/23 Unknown History alprazolam 0.25 mg tablet [...] 91.1 H, Lymph % (Auto) 3.0 L, [place] % (Auto) 5.1, Eos % (Auto) 0.0, [...] process. Recommend follow-up until resolution. Reading Location: [id number] Assessment & Plan Assessment/Plan (1) COPD exacerbation: [...] left main. Charges/Coding Visit Charges Inpatient E&M: 11771 Init Hosp L3 12/01/24 0847 <Electronically signed by Anirudh Thompson DO> Cosigner Signature (if applicable): CC: Dr. Anirudh Thompson DO; Dr. Jr Ryan DO~ Signed [facility] Work Phone: 1(501) 568-357804-08-2025 Evaluation note* Diagnosis Onset Date Resolution Status Admit Date Hypoxia acute December 01 8:16am Pneumonia acute December 01 8:16am Stable angina acute December 01, 2024 8:16am COPD exacerbation chronic December 012024 8:16am Hypertension chronic December 01, 2 025 8:16am [facility] Work Phone: 1(651) [phone] Discharge summary Author Todd Valdovinos [facility] Note Date/Time December 01, 2024 8:00 am [facility] Medical Records Department [address] [place] [address] Emergency Department Summary 12/01/24 MR#: [id number] Acct: [id number] Name: BEATRIS QUINN Rep #:[id number] : 1950 73 From: Todd Valdovinos DO [...] influenza which was roughly 1 year ago [facility] Medical History Aortic stenosis Elevated coronary artery calcium score Urinary retention Heart murmur Anxiety On home oxygen therapy Acute hypoxemic respiratory failure Pneumonia COPD (chronic obstructive pulmonary disease) [place] (hard of hearing) Hypertension Home Medications ?Medication [...] (400 unit) capsule 268 mg PO DAILY [facility] 12/17/23 Unknown History alprazolam 0.25 mg tablet [...] 91.1 H Lymph % (Auto) 3.0 L [place] % (Auto) 5.1 Eos % (Auto) 0.0 [...] process. Recommend follow-up until resolution. Reading Location: [id number] Chest x-ray as interpreted by the emergency [...] DO [Primary Care Provider] - Print Language: Luxembourger Disposition Disposition: [facility] What to do if you have Problems For any increased pain, shortness of breath, bleeding, nausea or vomiting, chestpain, or any unexpected problems, contact your Primary Care Provider. Call [facility] ([phone]) or report to the closest Emergency Room. Call 911 if necessary. 12/01/24 08 <Electronically signed by Todd Valdovinos DO> Cosigner Signature (if applicable): CC: Dr. Jr Ryan DO ~ Signed [facility] Work Phone: 1(419) 369-926804-08-2025 History and physical note [facility] Medical Records Department [address] [place] [address] H&P Exam - Hospitalist 12/01/24830 MR#: [id number] Acct: [id number] Name: BEATRIS QUINN Rep #:[id number] : 1950 73 From: Anirudh Thompson DO [...] better with rest. CP does not radiate. [facility] Medical History Aortic stenosis Elevated coronary artery calcium score Urinary retention Heart murmur Anxiety On home oxygen therapy Acute hypoxemic respiratory failure Pneumonia COPD (chronic obstructive pulmonary disease) [place] (hard of hearing) Hypertension Home Medications ?Medication [...] (400 unit) capsule 268 mg PO DAILY [facility] 12/17/23 Unknown History alprazolam 0.25 mg [...] 91.1 H, Lymph % (Auto) 3.0 L, [place] % (Auto) 5.1, Eos % (Auto) 0.0, [...] process. Recommend follow-up until resolution. Reading Location: [id number] Assessment & Plan Assessment/Plan (1) COPD exacerbation: [...] left main. Charges/Coding Visit Charges Inpatient E&M: 40134 Init Hosp L3 12/01/24 0847 Cosigner Signature (if applicable): CC: Dr. Anirudh Thompson DO; Dr. Jr Ryan DO~ Signed [facility]04-08-2025 Discharge summary [facility] Medical Records Department [address] [place] [address] Emergency Department Summary 12/01/24 MR#: [id number] Acct: [id number] Name: BEATRIS QUINN Rep #:[id number] : 1950 73 From: Todd Valdovinos DO [...] influenza which was roughly 1 year ago [facility] Medical History Aortic stenosis Elevated coronary artery calcium score Urinary retention Heart murmur Anxiety On home oxygen therapy Acute hypoxemic respiratory failure Pneumonia COPD (chronic obstructive pulmonary disease) [place] (hard of hearing) Hypertension Home Medications ?Medication [...] 91.1 H Lymph % (Auto) 3.0 L [place] % (Auto) 5.1 Eos % (Auto) 0.0 [...] process. Recommend follow-up until resolution. Reading Location: [facility] Chest x-ray as interpreted by the [...] DO [Primary Care Provider] - Print Language: Luxembourger Disposition Disposition: Acute Care Hospital [facility] What to do if you have Problems For any increased pain, shortness of breath, bleeding, nausea or vomiting, chestpain, or any unexpected problems, contact your Primary Care Provider. Call [facility] ([phone]) or report tothe closest Emergency Room. Call 911 if necessary. 12/01/24 0800 Cosigner Signature (if applicable): CC: Dr. Jr Ryan DO ~ Signed [facility]04-08-2025 Radiology Diagnostic study note [facility] Imaging Services [address] [place] [address] Chest PA and Lateral MR#: [id number] Acct: [id number] Name: BEATRIS QUINN Rep #: [id number] : 1950 M 73 From: Eloy Parra MD PCP: Dr. Jr Ryan DO Status: REG ER Study:Chest PA and Lateral Date of Exam: 12/01/24 Exam# [id number] Ordering Dr: Aziza Valdovinos DO PROCEDURE: CHEST [...] process. Recommend follow-up until resolution. Reading Location: [id number] CC: Dr. Jr Ryan DO; Todd Valdovinos DO ~ Well Logging Captain: Signed [facility]03-03-2025 Telephone encounter Note* Telephone Encounter - Tyrell FaustinoCandelaria Parvin - 10/26/2024 4:21 PM EST Patient's called pulmonary asking for assistance in delivering a message to Dr. Restrepo's office since they have been unable to contact and speak with the office. Per caller: Patient is not interested in following up with infectious disease. Patient can be reached by calling [phone]. [facility]03-03-2025 Miscellaneous Notes* Telephone Encounter - Candelaria Singh - 10/26/2024 4:21 PM EST Patient's called pulmonary asking for assistance in delivering a message to Dr. Restrepo's office since they have been unable to contact and speak with the office. Per caller: Patient is not interested in following up with infectious disease. Patient can be reached by calling [phone]. documented in this encounterHocking Valley [facility]02-24-[facility] Telephone encounter Note * Telephone Encounter [...] is done in 6 months Thank you [facility]02-24-2025 Miscellaneous Notes* Telephone Encounter - Tigre [...] 6 months Thank you documented in this encounterHocking Valley Community Hospital02-21-2025 NoteHNO ID: [id number] Author: TAMELA ANDERSON MD Service: ? Author [...] are calcified, others have neoplastic appearance, largest [id number] lateral segment RML. Cavitary type lesion EDWIN [id number] 03/15/25- Dr. Restrepo pulm OPD consult 04/21/24- [...] appointment / consult Tamela Anderson [facility] 16[facility] History of Present illness Narrative* Tamela Anderson MD - 10/16/2024 5:42 PM EST Infectious Disease E-Consult Response In response to your eConsult Infectious Disease request for Beatris Quinn regarding: aspergillosis. History of present illness provided through requesting provider documentation and current treatment plan was reviewed. 02/06/2024: CT Lymphadenopathy up to 14 mm Multiple nodules, some are calcified, others have neoplastic appearance, largest 78s29lo lateral segment RML. Cavitary type lesion EDWIN [id number] 03/15/25- Dr. Restrepo pulm OPD consult 04/21/24- [...] MD October 16, 2024 documented in this encounterHocking Valley [facility] Hospital02-21-2025 Note* Addendum Note - Tigre Restrepo MD - 10/16/2024 3:14 PM ESTAddended by: TIGRE RESTREPO on: 10/16/2024 03:14 PM Modules accepted: Orders [facility]02-21-2025 Miscellaneous Notes* Addendum Note - Tigre Restrepo MD - 10/16/2024 3:14 PM ESTAddended by: TIGRE RESTREPO on: 10/16/2024 03:14 PM Modules accepted: Orders documented in this encounterHocking Valley Community Hospital02-21-2025 NoteHNO ID: [id number] Author: TIGRE RESTREPO MD Service: ? Author [...] report showed stable lung opacities Works in [employer] From [employer] Social History Tobacco Use Smoking status: Former [...] Take by mouth at bedtime as needed. luxlleemfgp-nntrdetaw-vxjxwwhi (TRELEGY ELLIPTA) 100-62.5-25 mcg inhalation powder Inhale [...] technique due to different penetrations the films. Well Logging Captain: NESTOR Transcribe Date/Time: Mar 24 2024 1:44P [...] be communicated with the ordering provider via [employer] staff message or phone message by [facility] [employer] within 2 business days of report finalization. --END OF FINDING-- Well Logging Captain: NESTOR Transcribe Date/Time: Mar 11 2024 8:08A Dictated by : NICOLAS BAJWA MD This examination was interpreted and the report reviewed and electronically signed by: NICOLAS BAJWA MD on Mar 11 2024 8:17AM EST XR CHEST 2V FRONTAL/LAT Result Date: 12/15/2023 IMPRE (more content not included)...[facility]02-21-2025 History of Present illness Narrative* Tigre [...] report showed stable lung opacities Works in [employer] From [employer] Social History Tobacco Use Smoking status: Former [...] Take by mouth at bedtime as needed. aogngbnrfre-yfnxofuvw-bispzctr (TRELEGY ELLIPTA) 100-62.5-25 mcg inhalation powder Inhale [...] in technique due todifferent penetrations the films. Well Logging Captain: PSCB Transcribe Date/Time: Mar 24 2024 1:44P [...] be communicated with the ordering provider via [employer] staff message or phone message by [employer] within 2 business days of report finalization. --END OF FINDING-- Well Logging Captain: PSCB Transcribe Date/Time: Mar 11 2024 8:08A Dictated by : NICOLAS BAJWA MD This examination was interpreted and the report reviewed and electronically signed by: NICOLAS BAJWA MD on Mar 11 2024 8:17AM EST XR CHEST 2V FRONTAL/LAT Result Date: 12/15/2023 IMPRESSION: No acute radiographic abnormality. Well Logging Captain: [facility] Transcribe Date/Time: Dec 15 2023 1:22A [...] with aspiration. 3. No enlarging lymph nodes. Well Logging Captain: [facility] Transcribe Date/Time: May 15 2024 4:44P [...] are calcified, others have neoplastic appearance, largest 50p97yw lateral segment RML. Cavitary type lesion EDWIN [id number] Multiple large opacities, one of them is [...] Continue Trelegy Albuterol as needed hfa/nebulizer - [id number] 3. Chest pain on breathing - ICD9: 786.52, ICD10: R07.1 R/o PE Trip by bus to [place] 01/2024 4. Cavitary lesion of lung - ICD9: 518.89, ICD10: J98.4 Serum aspergillus galactomannan and coccidio mildly above normal Will consult ID 5. Allergy to environmental factors - ICD9: V15.09, ICD10: Z91.09 Possible asthma on top of copd 6. Ex-smoker - ICD9: V15.82, ICD10: Z87.891 Quit 15 yrs ago Tigre Restrepo MD, MATT Staff, [facility] [place] [facility] documented in this encounterHocking Valley [facility]02-21-2025 History of Present illness Narrative* Alina [...] PATIENT PRESENTS WITH AN IMPLANTABLE OR ATTACHED WOOD FENCE INSTALLER: No RADIOLOGY DEPARTMENT: CT; Exam(s) Completed: Chest PERIPHERAL IV DATA: Not applicable SIGNED BY: RT Noah(Jennifer) October 16, 2024 7:09 AM documented in this encounterHocking Valley Community Hospital02-21-2025 NoteHNO ID: [id number] Author: ALINA GOOD RT(R) Service: Radiology Author [...] PATIENT PRESENTS WITH AN IMPLANTABLE OR ATTACHED WOOD FENCE INSTALLER: No RADIOLOGY DEPARTMENT: CT; Exam(s) Completed: Chest PERIPHERAL IV DATA: Not applicable SIGNED BY: RT Noah(R) October 16, 2024 7:09 AMGrand Lake Joint Township District Memorial [id number] Telephone encounter Note* Telephone Encounter - Veronica Sherman - 10/09/2024 11:58 AM EST First attempt at contacting patient, uzair VM to schedule [facility]02-14-2025 Miscellaneous Notes* Telephone Encounter - Veronica [...] his next office visit on 10/16 in [place]. Patient states he will arrive one hour early for X-ray, CT scan or other testing. Patient has been calling the appointment line but has been on hold for too long. Please reach out to patient and confirm testing will be scheduled and advise of arrival time. Patient phone: [phone]. documented in this encounterHocking Valley [facility] Hospital02-14-2025 Telephone encounter Note * Telephone Encounter - Tigre Restrepo MD - 10/09/2024 10:38 AM EST Please schedule him for a ct chest prior to his next appointment - if needed you can move the appointment until the ct chest is done. He does not need a cxr just a ct chest [facility] Work Phone: 1(436) 851-401402-14-2025 Telephone encounter Note* Telephone Encounter - Candelaria Singh - 10/09/2024 10:11 AM EST Patient called COPD coordinator asking to message Dr. Restrepo requesting to add on testing at his next office visit on 10/16 in [place]. Patient states he will arrive one hour early for X-ray, CT scan or other testing. Patient has been calling the appointment line but has been on hold for too long. Please reach out to patient and confirm testing will be scheduled and advise of arrival time. Patient phone: [phone]. [facility]11-06-2024 Telephone encounter Note* Telephone Encounter - Kacey Che LPN - 07/01/2024 3:59 PM EST Attempted to call pt, no answer but message was left on for him to return our call. When Pt calls, please see message below from Dr. Restrepo. [facility]11-06-2024 Miscellaneous Notes* Telephone Encounter - Kacey [...] Nothing in Epic. Thanks documented in this encounterHocking Valley Community Hospital11-06-2024 Telephone encounter Note * Telephone Encounter - Tigre Restrepo MD - 07/01/2024 3:38 PM EST Please check if he has seen the infectious disease specialist. Nothing in Epic. Thanks [facility] Work Phone: 1(811) 129-817910-15-2024 Telephone encounter Note* Telephone Encounter - Caio Patel RN - 06/09/2024 4:50 PM EDT Called pt left VM with results via phone. Sent ECHO results via mail. [facility]10-15-2024 Miscellaneous Notes* Telephone Encounter - Caio [...] back with any questions. documented in this encounterHocking Valley Community Hospital10-15-2024 Telephone encounter Note * Telephone Encounter [...] Advised to call back with any questions. [facility]10-07-2024 Telephone encounter Note* Telephone Encounter - Nicole Lemus MA - 06/01/2024 9:59 AM EDT Patient is requesting this prescription be faxed KERRY at [facility] at . Pharmacy phone number is . JOSE ALBERTO with Dr. Restrepo 03/24/2024 No future appt. [facility]10-07-2024 Miscellaneous Notes* Telephone Encounter - Nicole Lemus MA - 06/01/2024 9:59 AM EDT Patient is requesting this prescription be faxed KERRY at [facility] at . Pharmacy phone number is . JOSE ALBERTO with Dr. Restrepo 03/24/2024 No future appt. documented in this encounterHocking Valley Community Hospital10-03-2024 Telephone encounter Note * Telephone Encounter - Glendy Dial RN - 05/28/2024 1:32 PM EDT Left message for patient to return call. [facility]10-03-2024 Miscellaneous Notes* Telephone Encounter - Glendy [...] infectious disease Thanks nh documented in this encounterHocking Valley Community Hospital10-03-2024 Note* Addendum Note - Tigre Restrepo MD - 05/28/2024 1:29 PM EDTAddended by: TIGRE RESTREPO on: 05/28/2024 01:29 PM Modules accepted: Orders [facility]10-03-2024 Telephone encounter Note* Telephone Encounter - [...] please schedule him with infectious disease Thanks de [facility]10-03-2024 Telephone encounter Note* Telephone Encounter - Sarina Benitez RN - 05/28/2024 8:48 AM EDT Called pt, no answer. Advised pt to call back to discuss recommednations. [facility]10-03-2024 Miscellaneous Notes* Telephone Encounter - Sarina [...] artery. He [facility]. documented in this encounterHocking Valley [facility] Hospital10-02-2024 Telephone encounter Note * Telephone Encounter - Janie Baxter RN - 05/27/2024 4:07 PM EDT Called patient at 4:06, advised he would get a CB at 4P. Left a message that this nurse will CB at 7P tonight. [facility]10-02-2024 Miscellaneous Notes* Telephone Encounter - Janie [...] am still waiting for the culture. Thanks de documented in this encounterHocking Valley Community Hospital10-02-2024 Telephone encounter Note * Telephone Encounter - Janie Baxter RN - 05/27/2024 12:11 PM EDT Left a message per patient request that he will get a call back at the number listed t give him themessage. [facility]10-02-2024 Telephone encounter Note* Telephone Encounter - Tigre Restrepo MD - 05/27/2024 11:39 AM EDT Please inform the patient that there was no cancer seen on lung biopsy. I am still waiting for the culture. Thanks de [facility]10-02-2024 Telephone encounter Note* Telephone Encounter - Claire Turner MD - 05/27/2024 11:07 AM EDT I attempted to reach Beatris via telephone however there was no answer. Voicemail message left for him to return our call. Dr. Ayers was able to review his cath images and recommended coronary ultrasound of the left main artery. He recommended this be done at [facility]. [facility] Work Phone: 1(119) 436-379710-01-2024 Telephone encounter Note* Telephone Encounter - Janie Baxter RN - 05/26/2024 1:57 PM EDT Message to patient, advised he will get a CB with the culture results as soon as they are available. [facility]10-01-2024 Miscellaneous Notes* Telephone Encounter - Janie [...] request that Dr. Restrepo call script into [facility]. He states he had his biopsy today and was told that Dr. Restrepo would be sending in a script to address his lung infection. Patient unsure of medication and requested a message to be sent to Dr. Restrepo's office. Please contact patient with any questions: [phone] (neighbor's phone) documented in this encounterHocking Valley Community Hospital10-01-2024 Telephone encounter Note * Telephone Encounter - Janie Baxter RN - 05/26/2024 1:32 PM EDT Unable to reach patient at work, will have to try other number later. [facility]10-01-2024 Telephone encounter Note* Telephone Encounter - Janie Baxter RN - 05/26/2024 11:58 AM EDT Patient at lunch, need to CB after 12:30. [facility]10-01-2024 Telephone encounter Note* Telephone Encounter - [...] weeks. I will keep him updated. Thanks' [facility]10-01-2024 Telephone encounter Note* Telephone Encounter - Janie Baxter RN - 05/26/2024 9:58 AM EDT Patient left a message on at 8:51a about the message below. Please advise. [facility]09-30-2024 Telephone encounter Note* Telephone Encounter - Candelaria Singh - 05/25/2024 3:22 PM EDT Patient called to request that Dr. Restrepo call script into [facility]. He states he had his biopsy today and was told that Dr. Restrepo would be sending in a script to address his lung infection. Patient unsure of medication and requested a message to be sent to Dr. Restrepo's office. Please contact patient with any questions: [phone] (neighbor's phone) T [facility]09-27-2024 History of Present illness Narrative* Claire Turner MD - 05/22/2024 8:00 AM EDT Images from the original note were not included. [facility] [place] SECTION OF REGIONAL CARDIOLOGY OUTPATIENT VISIT DATE 05/22/2024 OUTPATIENT VISIT TYPE NEW PRIMARY CARE PHYSICIAN: Jr Ryan [id number] [address] HISTORY OF PRESENT ILLNESS: Mr. Quinn is a 73 year old male, hx of hypertension, asthma, COPD, presents for cardiovascular assessment. He denies chest pain, palpitations, orthopnea, PND, leg swelling, lightheadedness, syncope. He underwent hernia surgery in January/February in [place]. Around that time, he underwent a coronary CTA. CD images or results are not available at the time of this visit. He reported that based on the CT findings, he was advised to have a cardiac catheterization which was performed at [place]. Per cath report dated 03/02/2024: 'Nonobstructive coronary [...] gradient 13.5, mild to moderate , mild IL. He presents for second opinion re: heart [...] with aspiration. 3. No enlarging lymph nodes. Well Logging Captain: NESTOR Transcribe Date/Time: May 15 2024 4:44P [...] Call him with results Claire Turner MD, [facility] documented in this encounterHocking Valley [facility]09-24-2024 History of Present illness Narrative* Chapin Crow-MD Dwight - 05/19/2024 4:15 PM EDT It is the responsibility of the presenting physician to facilitate any and all recommendations discussed during Thoracic Tumor Board if they are to be implemented into the patients plan of care. Pending Staff Approval [facility] DISCIPLINARY THORACIC TUMOR BOARD: May 19, 2024 Presenting Physician(s): MD Beatris Lomas Eligio Quinn 73 year old [id number] Staff in Attendance: Staff representing all Thoracic [...] Signed by: Mehreen Crow documented in this encounterHocking Valley Community Hospital09-20-2024 Instructions* Patient Instructions* Mehreen Crow MD - 05/15/2024 10:37 AM EDT You will need an updated CAT scan today. If the lung spots are better, I will call you and let you know. But, if I don't call, that means you are coming for the biopsy as scheduled. For bronchoscopy procedure: You will receive a call from our deliverer food to let you know the time and [...] and until procedure is done Please call [phone] for additional information prior to bronchoscopy if you have questions You will need someone to bring you to this procedure and stay for the entire duration of procedure as you cannot drive home after procedure documented in this encounterHocking Valley [facility] Hospital09-20-2024 History of Present illness Narrative* Nicole [...] PATIENT PRESENTS WITH AN IMPLANTABLE OR ATTACHED WOOD FENCE INSTALLER: No RADIOLOGY DEPARTMENT: CT; Exam(s) Completed: Chest PERIPHERAL IV DATA: Not applicable SIGNED BY: RT Noel(R) May 15, 2024 12:09 PM documented in this encounterHocking Valley Community Hospital09-20-2024 History of Present illness Narrative* Mehreen Crow MD - 05/15/2024 10:00 AM EDT Images from the original note were not included. INTERVENTIONAL PULMONARY MEDICINE CONSULTATION PLEASE DO NOT REMOVE FROM THE CHART OR MODIFY PRINTED COPY Patient Name: Beatris Quinn PRIMARY CARE PHYSICIAN: Jr Ryan DO REFERRING PHYSICIAN: Tigre Restrepo MD (please cc for bronch result) Interpreting services utilized via (director operating service modality: director operating not needed for appointment) Consultation requested by [...] Sometimes some pain in the chest. Seen orientation & mobility specialist, may have some artery blockage or narrowing, [...] heartburn or reflux symptoms GENITOURINARY: Not reviewed SUPERVISOR ROLLER PRINTING: NA MUSCULOSKELETAL: Negative for joint pain or [...] test. He is still independently working in [place]. Overall preserved ECOG. 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 It is also explained [...] 15, 2024 12:39 PM documented in this encounterHocking Valley Community Hospital09-13-2024 Telephone encounter Note * Telephone Encounter - Kiara Berry HUC - 05/08/2024 3:33 PM EDT Contacted patient to schedule Bronchoscopy. No answer,left message. [facility]09-13-[facility] Miscellaneous Notes* Telephone Encounter - Kiara Berry HUC - 05/08/2024 3:33 PM EDT Contacted patient to schedule Bronchoscopy. No answer,left message. documented in this encounterHocking Valley Community Hospital09-10-2024 History of Present illness Narrative* Sahara [...] on anticoagulants/anti-plt therapy? No Nursing Considerations: (ie: assisted, TB, respiratory isolation, etc.) none Diagnosis/Reason for [...] 03/11/2024 Neut% 92.8 12/14/2023 Lymph% 2.1 12/14/2023 [place]% 4.6 12/14/2023 Eosin% 0.0 12/14/2023 Baso% 0.1 12/14/2023 Abs Neut (ANC) 17.42 12/14/2023 Abs [place] 0.86 12/14/2023 Abs Eosin <0.03 12/14/2023 Abs [...] - 1.22 mg/dL Final documented in this encounterHocking Valley Community Hospital09-04-2024 Telephone encounter Note * Telephone Encounter - Mitzi Quinteros - 04/29/2024 3:56 PM EDT Contacted patient and left a voicemail to let him know that Dr. Restrepo sent the clearance to [facility] team- they will contact him to schedule a biopsy. [facility]09-04-2024 Miscellaneous Notes* Telephone Encounter - Mitzi Quinteros - 04/29/2024 3:56 PM EDT Contacted patient and left a voicemail to let him know that Dr. Restrepo sent the clearance to [facility] team- they will contact him to schedule a biopsy. documented in this encounterHocking Valley Community Hospital09-04-2024 Telephone encounter Note * Telephone Encounter - Emily Salazar - 04/29/2024 3:19 PM EDT Patient called and would like to get scheduled for a biopsy. Patient mentioned Dr. Restrepo recommended for patient to have biopsy done. [facility]09-04-2024 Miscellaneous Notes* Telephone Encounter - Emily Salazar - 04/29/2024 3:19 PM EDT Patient called and would like to get scheduled for a biopsy. Patient mentioned Dr. Restrepo recommended for patient to have biopsy done. documented in this encounterHocking Valley Community Hospital09-04-2024 Telephone encounter Note * Telephone Encounter - Sandra Shelton LPN - 04/29/2024 8:18 AM EDT Letter faxed to [phone]. Transmission successful, paperwork in fax drawer. [facility]09-04-2024 Miscellaneous Notes* Telephone Encounter - Sandra Shelton LPN - 04/29/2024 8:18 AM EDT Letter faxed to [phone]. Transmission successful, paperwork in fax drawer. * [...] Asking for this to be faxed to [phone]. documented in this encounterHocking Valley Community Hospital09-04-2024 Telephone encounter Note * Telephone Encounter - Sandra Shelton LPN - 04/29/2024 8:14 AM EDT Images from the original note were not included. Tigre Restrepo MD You15 hours ago (4:18 PM) I am putting a new version in [facility]09-03-2024 Telephone encounter Note* Telephone Encounter - Sandra Shelton LPN - 04/28/2024 4:02 PM EDT Spoke with [facility] - they state that clearance letter for them to complete must state that name of the physician doing the procedure, the name of the procedure, and the date that it will be done. Asking for this to be faxed to [phone]. [facility]08-27-2024 Telephone encounter Note* Telephone Encounter - Tigre Restrepo MD - 04/21/2024 4:16 PM EDT He has an appointment with cardiology next month at [place] Please can you please try to get [...] they paged him for me Thank you [facility] Work Phone: 1(615) 824-169208-27-2024 Miscellaneous Notes* Telephone Encounter - Tigre Restrepo MD - 04/21/2024 4:16 PM EDT He has an appointment with cardiology next month at [place] Please can you please try to get [...] for me Thank you documented in this encounterHocking Valley Community Hospital08-27-2024 History of Present illness Narrative* Sahara [...] had hernia surgery 3 weeks ago in [place] as well as stem cell treatment for his COPD. At that time he states he had some type of heart study, he believes a cardiac MRI where they told him he should follow-up with a orientation & mobility specialist due to valvular issues andblockage. He had been went home to [facility] for he had a cardiac catheterization and an echo. In [place] he was told everything was normal. He [...] Saturday and Saturday M documented in this encounterHocking Valley Community Hospital08-27-2024 Telephone encounter Note * Telephone Encounter - Tigre Restrepo MD - 04/21/2024 11:10 AM EDT Called patient and discussed PET SCAN FINDINGS. POSSIBILITY OF LUNG CANCER PATIENT WILLING TO HAVE BIOPSY SOON POSSIBLE Sent a request to [facility] IR team for evaluation [facility]08-27-2024 Miscellaneous Notes* Telephone Encounter - Tigre Restrepo MD - 04/21/2024 11:10 AM EDT Called patient and discussed PET SCAN FINDINGS. POSSIBILITY OF LUNG CANCER PATIENT WILLING TO HAVE BIOPSY SOON POSSIBLE Sent a request to [facility] IR team for evaluation documented in this encounterHocking Valley Community Hospital08-27-2024 History of Present illness Narrative* Sahara [...] PATIENT PRESENTS WITH AN IMPLANTABLE OR ATTACHED WOOD FENCE INSTALLER: No CREATININE: Creatinine Date Value Ref Range [...] radiation safety can be found usingthis link: [email or web address] SIGNATURE: SHARON Bledsoe) PATIENT NAME: Beatris Quinn DATE: April 21, 2024 TIME: 7:15 AM PAGER/CONTACT #: documented in this encounterHocking Valley Community Hospital08-27-2024 NoteHNO ID: [id number] Author: SAHARA CHE RT (R) Service: Nuclear [...] PATIENT PRESENTS WITH AN IMPLANTABLE OR ATTACHED WOOD FENCE INSTALLER: No CREATININE: Creatinine Date Value Ref Range [...] DIAGNOSTIC CT PERFORMED: No IV SITE: Ambulatory: GA only - direct IV injection in the Right antecubital site POST EXAM PIV STATUS: Discontinued PROCEDURE TYPE: NM INJECT: PET/CT BODY SCAN. 6.8 mCi F18 FDG. No other medications given.. ADMINISTRATION TIME: 0657 PATIENT DISCHARGED TO: Ambulatory patient, left [place] department area. A Diagnostic radioactive procedure has taken place, with no further precautions necessary other than routine body substance precautions. More information regarding radiation safety can be found using this link: [email or web address]%20Nuclear%20Medicine%20Procedures.pdf SIGNATURE: RT Rakan(R) PATIENT NAME: Beatris Quinn DATE: April 21, 2024 TIME: 7:15 AM PAGER/CONTACT [id number] Telephone encounter Note * Telephone Encounter - Cristal Llanos - 04/10/2024 4:20 PM EDT Patient called back and stated that the order needed to be faxed to the PET scan company at [phone]. Order faxed. [facility]08-16-2024 Miscellaneous Notes* Telephone Encounter - Cristal Llanos - 04/10/2024 4:20 PM EDT Patient called back and stated that the order needed to be faxed to the PET scan company at [phone]. Order faxed. * Telephone Encounter - Rosaura Addison - 04/10/2024 2:28 PM EDT PT returned call to the office. For financial reasons, PT is opting to have PET scan at [facility]. Faxed order to [phone]. * Telephone Encounter - Tigre Restrepo MD - 04/10/2024 1:45 PM EDT I called the patient and left him a voice message regarding abnormal ct chest. We need to proceed with PET scan documented in this encounterH[facility] Telephone encounter Note * Telephone Encounter - Rosaura Addison - 04/10/2024 2:28 PM EDT PT returned call to the office. For financial reasons, PT is opting to have PET scan at [facility]. Faxed order to [phone]. [facility]08-16-2024 Telephone encounter Note* Telephone Encounter - Tigre Restrepo MD - 04/10/2024 1:45 PM EDT I called the patient and left him a voice message regarding abnormal ct chest. We need to proceed with PET scan [facility] Work Phone: 1(431) 971-606308-02-2024 Telephone encounter Note* Telephone Encounter - Tigre Restrepo MD - 03/27/2024 3:[address] chest with no PE Multiple lung nodules, largest is a EDWIN mass 3 cm concerning for lung cancer Plan for pet scan then biopsy I called the patient but he did not supervisor opening and picking Please schedule him for a virtual visit kerry or a phone encounter to discuss the ct chest results I also put him for a pet scan kerry Thanks nh [facility]08-02-2024 Miscellaneous Notes* Telephone Encounter - Tigre Restrepo MD - 03/27/2024 3:[address] chest with no PE Multiple lung nodules, largest is a EDWIN mass 3 cm concerning for lung cancer Plan for pet scan then biopsy I called the patient but he did not supervisor opening and picking Please schedule him for a virtual visit kerry or a phone encounter to discuss the ct chest results I also put him for a pet scan kerry Thanks de documented in this encounterHock[facility]08[facility] History of Present illness Narrative* Symone [...] PATIENT PRESENTS WITH AN IMPLANTABLE OR ATTACHED WOOD FENCE INSTALLER: No ALLERGIES: Reviewed and unchanged CONTRAST ALLERGY: [...] 2024 TIME: 2:01 PM documented in this encounterHock[facility]07[facility] Telephone encounter Note * Telephone Encounter - Sandra Shelton LPN - 03/25/2024 11:[address] scan report from [facility] received from dr restrepo and sent to scanning. [facility]07-31-2024 Miscellaneous Notes* Telephone Encounter - Sandra Shelton LPN - 03/25/2024 11:[address] scan report from [facility] received from dr restrepo and sent to scanning. 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 So he rescheduled till Saturday here for [place] 03/27/24 @ 9:40am.. per his choice of date [facility]07-31-2024 Miscellaneous Notes* Telephone Encounter - Roz Farias PSS - 03/25/2024 9:05 AM EDT Pt was here for a CT scan today 03/25/24 in [place] @ 8:40am, pt ate at 5:30am and was not suppose to eat or drink for 4 hours before.. so I told the pt to wait till 9:30am and we will do him.. 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 So he rescheduled till Saturday here for [place] 03/27/24 @ 9:40am.. per his choice of date documented in this encounterHocking [facility]07-30-[facility]24 History of Present illness Narrative* Tigre [...] environmental allergies, mild CAD, recent trip to [place] by bus, hernia surgery while in [place] 01/2024, found tohave lung nodules,here for evaluation. He feels fine with no complaints Sometimes he feels SOB on exertion No cough no sputum production, no fever. Ct chest 02/06/2024: Lymphadenopathy up to 14 mm Multiple nodules, some are calcified, others have neoplastic appearance, largest 99i82dl lateral segment RML. Cavitary type lesion EDWIN [id number] Had lost weight since last year The [...] No significant exposure Silica: No significant exposure Waller: No significant exposure Mold: No significant exposure [...] 424 QTC Calculation (Bazett) 405 Calculated P Alto 108 Calculated R Alto 77 Calculated T Alto 71 Impression SINUS BRADYCARDIA OTHERWISE NORMAL ECG No results found for this or any previous visit (from the past 26803 hour(s)). XR CHEST 1V FRONTAL PORT Result [...] be communicated with the ordering provider via [employer] staff message or phone message by [employer] Support Services within 2 business days of report finalization. --END OF FINDING-- Well Logging Captain: NESTOR Transcribe Date/Time: Mar 11 2024 8:08A Dictated by : NICOLAS BAJWA MD This examination was interpreted and the report reviewed and electronically signed by: NICOLAS BAJWA MD on Mar 11 2024 8:17AM EST XR CHEST 2V FRONTAL/LAT Result Date: 12/15/2023 IMPRESSION: No acute radiographic abnormality. Well Logging Captain: NESTOR Transcribe Date/Time: Dec 15 2023 1:22A [...] are calcified, others have neoplastic appearance, largest 88f74tf lateral segment RML. Cavitary type lesion EDWIN [id number] Multiple large opacities, one of them is cavitated Course of antibiotic Repeat ct chest - CT CHEST WO IVCON - CREATININE BLD 2. Centrilobular emphysema (HCC) - ICD9: 492.8, ICD10: J43.2 Continue Trelegy Albuterol as needed hfa/nebulizer - [id number] 3. Chest pain on breathing - ICD9: 786.52, ICD10: R07.1 R/o PE Trip by bus to [place] 01/2024 - CT CHEST W IVCON PE [...] which included preparing to see the patient, pzic-dh-xynx patient care, completing clinical documentation, obtaining and/or reviewing separately obtained history, performing a medically appropriate examination, ordering medications, tests, or procedures, and independently interpreting results (not separately reported). Tigre Restrepo MD, MATT Staff, Respiratory Ambler [facility] CC: Jr Ryan, DO Fleming documented in this encounterHocking Valley [facility]07-30-2024 History of Present illness Narrative* Sandy [...] PATIENT PRESENTS WITH AN IMPLANTABLE OR ATTACHED WOOD FENCE INSTALLER: No RADIOLOGY DEPARTMENT: General X-ray: Exam(s) Completed: Chest X-Ray PERIPHERAL IV DATA: Not applicable SIGNED BY: Kannan Lovell March 24, 2024 10:54 AM documented in this encounterHocking [facility]07-30-2024 History of Present illness Narrative* Garcia Muir RRT - 03/24/2024 10:39 AM EDT PULM FUNCTION: Provider: Tigre Restrepo MD Assisting Tech: Garcia Muir RRT Spirometry w/BD: 1 DLCO: 1 documented in this encounterHocking [facility]07-10-2024 Telephone encounter Note * Telephone Encounter - Lucía Rader - 03/04/2024 12:59 PM EDT Patient's son is calling to see if patient can be seen in COPD clinic as soon as possible. Requests callback. Johnson (Son) [facility]07-10-2024 Miscellaneous Notes* Telephone Encounter - Lucía Rader - 03/04/2024 12:59 PM EDT Patient's son is calling to see if patient can be seen in COPD clinic as soon as possible. Requests callback. Johnson (Son) documented in this encounterHocking Valley [facility]04-26-2024 Discharge summary Author Fadi Lloyd [facility] December 20, 2023 1:58pm Note Date/Time December 20, 2023 1:5 3pm [facility] Medical Records Department [address] [place] [address] Discharge Summary 12/20/23 1351 MR#: [id number] Acct: [id number] Name: BEATRIS QUINN Rep #:[id number] : 1950 72 From: Fadi Willis PCP: Dr. Jr Ryan DO Status:ADM IN [facility] Providers Date of Admission: 12/17/23 Date of [...] weeks. Patient is states that he follows curtain cleaner Dr. 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 He is on scheduled [...] mcg/actuation aerosol inhaler (ProAir HFA) 1 inh [id number] PRN shortness of breath or wheezing 12/17/23 alprazolam 0.25 mg tablet (Xanax) 0.25 mg PO QHS anxiety 12/17/23 garlic 1,000 mg capsule 1,000 mg PO DAILY general health 12/17/23 vitamin E 268 mg (400 unit) capsule 268 mg PO DAILY general health 12/17/23 dextromethorphan-guaifenesin 30 mg-600 mg tablet extended kvjcokk64 hr (Mucinex DM) 2 tab PO BID [...] 12/18/23 15:05 RMA (Rec: 12/18/23 15:06 RMA [id number]) Nutrition Malnutrition Evidence of Malnutrition Exists Yes [...] Self Care Charges/Coding Visit Charges Inpatient E&M: 82394 Disch Hosp >30min 12/20/23 1358 <Electronically signed by Fadi Llody MD> Cosigner Signature (if applicable): CC: Dr. Jr Ryan DO; Dr. Fadi Lloyd MD~ Signed [facility] Work Phone: 1(709) 237-755904-26-2024 Discharge summary Author Fadi Lloyd [facility] December 20, 2023 1:51pm Note Date/Time December 20, 2023 1:4 4pm [facility] Medical Records Department [address] [place] [address] Instructions for Home/Discharge Instructions 12/20/23 1110 MR#: [id number] Acct: [id number] Name: BEATRIS QUINN Rep #:[id number] : 1950 72 From: Fadi Willis PCP: [...] Primary Care Provider: Jr Ryan Consulting Providers: Ainrudh Thompson Discharge Orders/Prescriptions Prescriptions: New Mucinex DM [...] DO; Dr. Jr Ryan DO ~ Signed [facility] Work Phone: 1(301) 242-925804-25-2024 Progress note Author Fadi Lloyd [facility] December 19, 2023 2:54pm Note Date/Time December 19, 2023 7:3 3am [facility] Medical Records Department [address] [place] [address] Progress Note - Hospitalist 12/19/23 0731 MR#: [id number] Acct: [id number] Name: BEATRIS QUINN Rep #:[id number] : 1950 72 From: Fadi Willis PCP: Dr. Jr Ryan, DO Status:ADM IN [place] [facility] [place] Reason for Visit Reason for Visit: Diagnoses [...] 12/18/23 15:05 RMA (Rec: 12/18/23 15:06 RMA [id number]) Nutrition Malnutrition Evidence of Malnutrition Exists Yes [...] 95.4 H, Lymph % (Auto) 1.9 L, [place] % (Auto) 2.0, Eos % (Auto) 0.0, [...] weeks. Patient is states that he follows curtain cleaner Dr. 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 He is on scheduled [...] full code. Charges/Coding Visit Charges Inpatient E&M: 04882 Subs Hosp L2 12/19/23 1502 <Electronically signed by Fadi Lloyd MD> Cosigner Signature (if applicable): CC: ~ Signed [facility] Work Phone: 1(313) 364-210304-24-2024 Progress note Author Fadi Lloyd [facility] December 18, 2023 4:13pm Note Date/Time December 18, 2023 10: 24am [facility] Medical Records Department [address] [place] [address] Progress Note - Hospitalist 12/18/23 1021 MR#: [id number] Acct: [id number] Name: BEATRIS QUINN Rep #:[id number] : 1950 72 From: Fadi Willis PCP: Dr. Jr Ryan, DO Status:ADM IN [place] [facility] [place] Reason for Visit Reason for Visit: Diagnoses [...] 85.9 H, Lymph % (Auto) 3.5 L, [place] % (Auto) 9.6, Eos % (Auto) 0.1, [...] Clarity Clear, Urine pH 6.5, Ur Specific [place] 1.010, Urine Protein 30 H, Urine Glucose [...] 95.4 H, Lymph % (Auto) 1.9 L, [place] % (Auto) 2.0, Eos % (Auto) 0.0, [...] Narrative Patient is states that he follows curtain cleaner Dr. 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 He is on scheduled [...] 85.9 H, Lymph % (Auto) 3.5 L, [place] % (Auto) 9.6, Eos % (Auto) 0.1, [...] Clarity Clear, Urine pH 6.5, Ur Specific Oxford 1.010, Urine Protein 30 H, Urine Glucose [...] 95.4 H, Lymph % (Auto) 1.9 L, [place] % (Auto) 2.0, Eos % (Auto) 0.0, [...] Calcium 9.2 Charges/Coding Visit Charges Inpatient E&M: 78787 Subs Hosp L2 12/18/23 5878 <Electronically signed by Fadi Lloyd MD> Cosigner Signature (if applicable): CC: ~ Signed [facility] Work Phone: 1(737) 167-218904-23-2024 History and physical note Author Anirudh Thompson [facility] December 17, 2023 3:30pm Note Date/Time December 17, 2023 3:3 0pm [facility] Medical Records Department [address] [place] [address] H&P Exam - Hospitalist 12/17/23 1524 MR#: [id number] Acct: [id number] Name: BEATRIS QUINN Rep #:[id number] : 1950 72 From: Anirudh Thompson DO PCP: Dr. Jr Ryan DO Status:ADM IN [place] [facility] OT469-7 HPI - General General Date of Service: [...] Patient received bronchodilators, methylprednisolone and ceftriaxone azithromycin. [facility] Medical History COPD (chronic obstructive pulmonary disease) [place] (hard of hearing) Hypertension Home Medications albuterol [...] 85.9 H, Lymph % (Auto) 3.5 L, [place] % (Auto) 9.6, Eos % (Auto) 0.1, [...] 14:46 EDT Reading Location ID and State: [facility] / [place] , Service support , Assessment & Plan [...] full code. Charges/Coding Visit Charges Inpatient E&M: 40346 Init Hosp 12/17/23 1530 <Electronically signed by Anirudh Thompson DO> Cosigner Signature (if applicable): CC: Dr. Anirudh Thompson DO; Dr. Jr Ryan DO~ Signed [facility] Work Phone: 1(594) 889-171504-23-2024 Discharge summary Author Migel Iqbal [facility] December 17, 2023 3:16pm Note Date/Time December 17, 2023 2:2 1pm [facility] Medical Records Department [address] [place] [address] Emergency Department Summary 12/17/23 MR#: [id number] Acct: [id number] Name: BEATRIS QUINN Eligio Rep #:[id number] : 1950 72 From: Migel Chen PCP: [...] 12 pounds in the past couple weeks. [facility] Medical History COPD (chronic obstructive pulmonary disease) [place] (hard of hearing) Hypertension Home Medications albuterol [...] 85.9 H Lymph % (Auto) 3.5 L [place] % (Auto) 9.6 Eos % (Auto) 0.1 [...] exacerbation, Pneumonia Disposition Disposition: Acute Care Hospital [facility] What to do if you have Problems For any increased pain, shortness of breath, bleeding, nausea or vomiting, chestpain, or any unexpected problems, contact your Primary Care Provider. Call [facility] ([phone]) or report to the closest Emergency Room. Call 911 if necessary. 12/17/23 1516 <Electronically signed by Migel Iqbal DO> Cosigner Signature (if applicable): CC: Dr. Jr Ryan DO ~ Signed [facility] Work Phone: 1(981) 290-159304-23-2024 Discharge summary Author Migel Iqbal [facility] December 17, 2023 3:16pm Note Date/Time December 17, 2023 2:2 1pm [facility] Medical Records Department [address] [facility] [place] [address] Emergency Department Summary 12/17/23 MR#: [id number] Acct: [id number] Name: BEATRIS QUINN Rep #:[id number] : 1950 72 From: Migel Chen PCP: [...] 12 pounds in the past couple weeks. [facility] Medical History COPD (chronic obstructive pulmonary disease) [place] (hard of hearing) Hypertension Home Medications albuterol [...] 85.9 H Lymph % (Auto) 3.5 L [place] % (Auto) 9.6 Eos % (Auto) 0.1 [...] exacerbation, Pneumonia Disposition Disposition: Acute Care Hospital [facility] What to do if you have Problems For any increased pain, shortness of breath, bleeding, nausea or vomiting, chestpain, or any unexpected problems, contact your Primary Care Provider. Call [facility] ([phone]) or report to the closest Emergency Room. Call 911 if necessary. 12/17/23 6998 <Electronically signed by Migel Iqbal DO> Cosigner Signature (if applicable): CC: Dr. Jr Ryan DO ~ Signed [facility] Work Phone: 1(292) 620-576003-05-2024 Hospital Discharge instructions Additional Instructions Follow-up with your curtain cleaner in the next 3 to 5 days. Continue your albuterol. Start your steroid burst tomorrow as you have been given a loading dose in the emergency department today.[facility] Work Phone: 1(310) 462-405111-14-2023 Discharge summary Author Jaleel Saul [facility] July 09, 2023 9:25am Note Date/Time July 09, 2023 7:25am [facility] Medical Records Department [address] [place] [address] Emergency Department Summary 07/09/23 MR#: [id number] Acct: [id number] Name: BEATRIS QUINN Rep #:[id number] : 1950 72 From: Jaleel Saul MD [...] for him. He is immune to them. [facility] Medical History COPD (chronic obstructive pulmonary disease) [place] (hard of hearing) Hypertension Home Medications albuterol [...] Pulse Ox Oxygen Delivery Method MDM MDM [facility] Narrative Medical decision making narrative: Patient [...] ectopy. No acute ST elevation or depression. IL interval, QRS duration and QTc normal Discharge [...] your Primary Care Provider. Call [facility] ([phone]) or report to the closest Emergency Room. Call 911 if necessary. 07/09/23 8199 <Electronically signed by Jaleel Saul MD> Cosigner Signature (if applicable): CC: Dr. Jr Ryan DO ~ Signed [facility] Work Phone: 1(501) 978-923512-29-2022 Note ORIGINAL EXAMINATION: ONE XRAY VIEW OF [...] Sign Date: 08/23/2022 11:49:31 AM [place] [facility] [place] Note ORIGINAL EXAMINATION: ONE XRAY VIEW OF [...] Sign Date: 08/23/2022 11:49:31 AM Ordering Provider: [facility]10-26-2021 Hospital Discharge instructions Patient Education 06/20/2021 12:51:57 COVID-19 Prevent the Spread of COVID-19 If You Are Sick (01/12/2020)(CUSTOM) Prevent the Spread of COVID-19 If You Are Sick Accessible version: https://www.cdc.gov/coronavirus/2019-ncov/la-bcz-xyi-sick/xiuaw-phpb-auys.html If you are sick with COVID-19 or [...] Animals if you have questions about pets: https://www.cdc.gov/coronavirus/2019ncov/faq.html#LUMLT88uqlhxof Monitor your symptoms. Common symptoms of COVID-19 [...] and need to call 911, notify the water pump operator that you have or think you [...] clean your hands with an alcohol-based hand supervisor machine setter that contains at least 60% alcohol. Clean your hands often. Wash your hands often with soap and water for at least 20 seconds. This is especially important after blowing your nose, coughing, or sneezing; going to the bathroom; and before eating or preparing food. Use hand supervisor machine setter if soap and water are not available. Use an alcohol-based hand supervisor machine setter with atleast 60% alcohol, covering all surfaces [...] and water or put them in the hopper operator. Clean all high-touch surfaces everyday. Clean and [...] or body fluids on them. Use household livestock producer and disinfectants. Clean the area or item [...] 06/20/2021 11:19:11 With:RADHA STAHL III, MD Address: [address] [place] [address] [phone] When:2-4 days [facility] Consult note Author Lawrence Hernandez [facility] December 20, 2023 3:37pm Note Date/Time December 20, 2023 3:3 7pm [facility] Medical Records Department [address] [place], [place] [address] [address] Counseling Note - Pharmacy 12/20/23 1537 MR#: [id number] Acct: [id number] Name: BEATRIS QUINN Rep #:[id number] : 1950 72 From: Lawrence Hernandez PCP: Dr. Jr Ryan, DO Status:ADM IN Y [place] [facility] LN354-1 [place] Med Reconciliation Pharmacy Service has performed discharge [...] mcg/actuation aerosol inhaler (ProAir HFA) 1 inh [id number] PRN shortness of breath or wheezing 12/17/23 alprazolam 0.25 mg tablet (Xanax) 0.25 mg PO QHS anxiety 12/17/23 garlic 1,000 mg capsule 1,000 mg PO DAILY general health 12/17/23 vitamin E 268 mg (400 unit) capsule [address] [facility] 12/17/23 dextromethorphan-guaifenesin 30 mg-600 mg tablet extended qddoyta71 hr (Mucinex DM) 2 tab PO BID [...] Signature (if applicable): Date CC: ~ Signed [facility] Work Phone: Consult note Author Niurka Quinn [facility] Note Date/Time December 02, 2024 4:33 pm [facility] Medical Records Department [address] [facility] [place] [address] Counseling Note - Pharmacy 12/02/24 1632 MR#: [id number] Acct: [id number] Name: BEATRIS QUINN Eligio Rep #:[id number] : 1950 73 From: Niurka Quinn PCP: VIVEK Yañez Status:AD M IN Y Location: [place] [id number] Pharmacy Service has performed discharge medication reconciliation [...] Signature (if applicable): Date CC: ~ Signed [facility] Work Phone: Consult note Author Niurka Quinn [facility] Note Date/Time June 02, 2025 12 :30pm [facility] Medical Records Department [address] [place] [address] Counseling Note - Pharmacy 06/02/25 1228 MR#: [id number] Acct: [id number] Name: BEATRIS QUINN Rep #:[id number] : 1950 74 From: Niurka Quinn PCP: VIVEK Yañez Status:AD M IN [place] [facility] NL687-0 Pharmacy [facility] Counseling Pharmacy Service has performed discharge medication [...] Signature (if applicable): Date CC: ~ Signed [facility] Work Phone: Discharge summary Author Todd Valdovinos [facility] Note Date/Time December 01, 2024 8:00 am [facility] Medical Records Department [address] [place] [address] Emergency Department Summary 12/01/24 MR#: [id number] Acct: [id number] Name: BEATRIS QUINN Rep #:[id number] : 1950 73 From: Todd Valdovinos DO [...] influenza which was roughly 1 year ago [facility] Medical History Aortic stenosis Elevated coronary artery calcium score Urinary retention Heart murmur Anxiety On home oxygen therapy Acute hypoxemic respiratory failure Pneumonia COPD (chronic obstructive pulmonary disease) [place] (hard of hearing) Hypertension Home Medications ?Medication [...] 91.1 H Lymph % (Auto) 3.0 L [place] % (Auto) 5.1 Eos % (Auto) 0.0 [...] process. Recommend follow-up until resolution. Reading Location: [facility] Chest x-ray as interpreted by the [...] DO [Primary Care Provider] - Print Language: Luxembourger Disposition Disposition: Acute Care Hospital [facility] What to do if you have Problems For any increased pain, shortness of breath, bleeding, nausea or vomiting, chestpain, or any unexpected problems, contact your Primary Care Provider. Call [facility] ([phone]) or report to the closest Emergency Room. Call 911 if necessary. 12/01/24 0800 <Electronically signed by Todd Valdovinos DO> Cosigner Signature (if applicable): CC: Dr. Jr Ryan DO ~ Signed [facility] Work Phone: Discharge summary Author Vivi [facility] franc[facility] Note Date/Time June 01, 2025 12 :23pm [facility] Medical Records Department [address] [place] [address] Emergency Department Summary 06/01/25 MR#: [id number] Acct: [id number] Name: BEATRIS QUINN Rep #:[id number] : 1950 74 From: Vivi Chen PCP: [...] Recent immobilization, Recent surgery or Recent travel [facility] Medical History Aortic stenosis Elevated coronary artery calcium score Urinary retention Heart murmur Anxiety On home oxygen therapy Acute hypoxemic respiratory failure Pneumonia COPD (chronic obstructive pulmonary disease) [place]OWER [place] (hard of hearing) Hypertension Home Medications ?Medication [...] She would like to CTA before going [facility] to ensure he does not have a pulmonary emboli. This is obtained and negative for any PE. Does show bilateral pulmonary nodule superimposed on emphysematous changes. Patient be admitted to [facility] floor. Lab Data Attestation: I reviewed [...] 71.4 H Lymph % (Auto) 15.9 L [place] % (Auto) 9.4 Eos % (Auto) 2.2 [...] No new consolidation. 2. Granulomas. Reading Location: [id number] Chest CTA 06/01/25 11:12 IMPRESSION: No evidence of pulmonary embolism. Bilateral pulmonary nodules superimposed on emphysematous changes. Reading Location: [id number] Rhythm Strip Rhythm Strip: Sinus Rhythm Rate: [...] disease, Hypoxia Disposition Disposition: Acute Care Hospital [facility] What to do if you have Problems For any increased pain, shortness of breath, bleeding, nausea or vomiting, chestpain, or any unexpected problems, contact your Primary Care Provider. Call [facility] ([phone]) or report to the closest Emergency Room. Call 911 if necessary. 06/01/25 1223 <Electronically signed by Vivi Pike DO> Cosigner Signature (if applicable): CC: ROWENA FERRARO ~ Signed [facility] Work Phone: Discharge summary Author Karen Le [facility] Note Date/Time June 02, 2025 12 :27pm [facility] Medical Records Department [address] [place] [address] Discharge Summary 06/02/25 1153 MR#: [id number] Acct: [id number] Name: BEATRIS QUINN Rep #:[id number] : 1950 74 From: Karen Le DO PCP: VIVEK Yañez Status:AD M IN [place] [facility] HB511-3 Providers Date of Admission: 06/01/25 Date of [...] who presented to the emergency department at [facility] on 06/01/2025 with chief complaint of shortness [...] then verify that he actually follows in [place] and now as they were not pleased [...] 92.5 H, Lymph % (Auto) 4.5 L, [place] % (Auto) 2.5, Eos % (Auto) 0.0, [...] Karen Le Primary Care Provider: Michelle Ferraro TUBE CLEANING OPERATOR Instructions Additional Instructions / Restrictions: 1. Please follow up with your curtain cleaner in [place] in Aug as scheduled Discharge Orders/Prescriptions Prescriptions: [...] Follow Up: ROWENA FERRARO [Other] Michelle Ferraro TUBE CLEANING OPERATOR, TUBE CLEANING OPERATOR-C [Primary Care Provider, Medical] - Within 1 Week Disposition Disposition (needs filled in before D/C Order can be placed): Home, Self Care Charges/Coding Visit Charges Inpatient E&M: 81578 Disch Hosp >30min 06/02/25 1227 <Electronically signed by Karen Le DO> Cosigner Signature (if applicable): CC: CHUCKYC Michelle Ferraro; Dr. Karen Le DO~ Signed [facility] Work Phone: Evaluation + Plan note No data available for this section [facility] Evaluation noteNo assessment information available [facility] Work Phone: Evaluation note* Diagnosis Onset Date Resolution Status Acute hypoxemic respiratory failure acute Influenza A acute Pneumonia acute COPD exacerbation chronic COPD with acute exacerbation chronic [facility] Work Phone: Evaluation note* Diagnosis Onset Date Resolution Status Acute hypoxemic respiratory failure acute Pneumonia acute COPD exacerbation chronic [facility] Work Phone: Evaluation note* Diagnosis SOB (shortness of breath) Shortness of breath documented in this encounter [facility] note* Diagnosis SOB (shortness of breath) Shortness of breath documented in this encounter [facility] note* Diagnosis Lung nodules- Primary Other nonspecific abnormal finding of lung field Centrilobular emphysema (HCC) Other emphysema Chest pain on breathing Painful respiration Cavitary lesion of lung Other diseases of lung, not elsewhere classified Allergy to environmental factors Other allergy, other than to medicinal agents Ex-smoker Personal history of tobacco use, presenting hazards to health documented in this encounter [facility] note* Diagnosis Chest pain on breathing Painful respiration documented in this encounter [facility] note* Diagnosis Chest pain, unspecified type- Primary documented in this encounter [facility] note* Diagnosis Lung nodules- Primary Other nonspecific abnormal finding of lung field documented in this encounter [facility] note* Diagnosis Chest pain, unspecified type documented [facility]* Diagnosis Lung nodules- Primary Other nonspecific abnormal finding of lung field documented [facility] this encounter [facility]* Diagnosis Lung nodules Other nonspecific abnormal finding of lung field documented [facility] this encounter [facility]* Diagnosis Pulmonary emphysema, unspecified emphysema type (HCC) documented [facility] this encounter [facility]* Diagnosis Multiple nodules of lung- Primary Other nonspecific abnormal finding of lung field Bronchiolar disease Other diseases of trachea and bronchus documented [facility] this encounter [facility]* Diagnosis Multiple pulmonary nodules- Primary Other nonspecific abnormal finding of lung field Former smoker Personal history of tobacco use, presenting hazards to health Stage 4 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 ([facility]) Bronchiolar disease Other diseases of trachea and bronchus documented [facility] this encounter [facility]* Diagnosis Multiple nodules of lung Other nonspecific abnormal finding of lung field Bronchiolar disease Other diseases of trachea and bronchus documented in this encounter [facility]* Diagnosis Coronary artery disease due to lipid rich plaque- Primary Murmur Undiagnosed cardiac murmurs Bronchiolar disease Other diseases of trachea and bronchus [facility]* Diagnosis Fungal pneumonia- Primary Other and unspecified mycoses documented in this encounter [facility]* Diagnosis Murmur Undiagnosed cardiac murmurs documented [facility] this encounter [facility]* Diagnosis Lung nodules- Primary Other nonspecific abnormal finding of lung field Lung mass Swelling, mass, or lump in chest Invasive pulmonary aspergillosis (HCC) Allergic bronchopulmonary aspergillosis Former smoker Personal history of tobacco use, presenting hazards to health Centrilobular emphysema (HCC) Other emphysema Stage 4 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 ([facility]) Cavitary lesion of lung Other diseases of lung, not elsewhere classified Chest pain on breathing Painful respiration [facility]* Diagnosis Aspergillus (HCC)- Primary Aspergillosis [facility]* Diagnosis Pneumonia of both lungs due to Pseudomonas species, unspecified part of lung ([facility]) documented in this encounter [facility]* Diagnosis Onset Date Resolution Status Admit Date Hypoxia acute December 01 8:16am Pneumonia acute December 01 8:16am Stable angina acute December 01, 2024 8:16am COPD exacerbation chronic December 012024 8:16am Hypertension chronic December 01 025 8:16am [facility] Work Phone: Evaluation note* Diagnosis Lung nodules- [...] to medicinal agents [facility] Lung mass Swelling, mass, or lump in chest [facility] Author Anirudh Thompson [facility] December 17, 2023 3:30pm Note Date/Time December 17, 2023 3:3 0pm [facility] Medical Records Department [address] [place] [address] H&P Exam - Hospitalist 12/17/23 1524 MR#: [id number] Acct: [id number] Name: BEATRIS QUINN Rep #:[id number] : 1950 72 From: Anirudh Thompson DO PCP: Dr. Jr Ryan DO Status:ADM IN [place] [facility] [id number] HPI - General General Date of Service: [...] Patient received bronchodilators, methylprednisolone and ceftriaxone azithromycin. [facility] Medical History COPD (chronic obstructive pulmonary disease) [place] (hard of hearing) Hypertension Home Medications albuterol [...] 85.9 H, Lymph % (Auto) 3.5 L, [place] % (Auto) 9.6, Eos % (Auto) 0.1, [...] full code. Charges/Coding Visit Charges Inpatient E&M: 82097 Init Hosp L3 12/17/23 1530 <Electronically signed by Anirudh Thompson DO> Cosigner Signature (if applicable): CC: Dr. Anirudh Thompson DO; Dr. Jr Ryan DO~ Signed [facility] Work Phone: History and physical note Author Anirudh Thompson [facility] Note Date/Time December 01, 2024 8:47 am [facility] Medical Records Department [address] [facility] [place] [address] H&P Exam - Hospitalist 12/01/24 0831 MR#: [id number] Acct: [id number] Name: BEATRIS QUINN Rep #:[id number] : 1950 73 From: Anirudh Thompson DO [...] better with rest. CP does not radiate. [facility] Medical History Aortic stenosis Elevated coronary artery calcium score Urinary retention Heart murmur Anxiety On home oxygen therapy Acute hypoxemic respiratory failure Pneumonia COPD (chronic obstructive pulmonary disease) [place] (hard of hearing) Hypertension Home Medications ?Medication [...] (400 unit) capsule 268 mg PO DAILY LoLo 12/17/23 Unknown History alprazolam 0.25 mg tablet [...] 91.1 H, Lymph % (Auto) 3.0 L, [place] % (Auto) 5.1, Eos % (Auto) 0.0, [...] process. Recommend follow-up until resolution. Reading Location: [id number] Assessment & Plan Assessment/Plan (1) COPD exacerbation: [...] left main. Charges/Coding Visit Charges Inpatient E&M: 86673 Init Hosp L3 12/01/24 0847 <Electronically signed by Anirudh Thompson DO> Cosigner Signature (if applicable): CC: Dr. Anirudh Thompson DO; Dr. Jr Ryan DO~ Signed [facility] Work Phone: Hospital Discharge instructions No data available for this section [facility] Hospital Discharge instructions Additional Instructions Prednisone 40 mg a day for 1 week. Follow-up with your primary care physician or see a lung specialist a curtain cleaner Dr. Shorty Marrero. Use inhaler as needed and if you have a nebulizer at home. You have influenza A and it caused an exacerbation of your underlying COPD. This should progressively get better.[facility] Work Phone: Hospital Discharge instructionsAdditional Instructions 1. Please follow up with your curtain cleaner in [place] in Aug as scheduled Date of Discharge: 06/02/25[facility] Work Phone: [facility] for referral (narrative)* Diagnostic Procedure Only (Urgent) - New Request Specialty Diagnoses / Procedures Referred By Contac t Referred To Contact MOLECULAR & FUNCTIONAL IMAGING Diagnoses Lung nodules Procedures NM PET/CT SKULL-THIGH INITIAL PET IMAGING CT ATTENUATION SKULL BASE MID-THIGH Tigre Restrepo MD [address] [place] [address] Molecular & Functional Imaging [address] [place] [address] Referral ID Status Reason Start Date Expiration Date Visits Requested Visits Authorized [id number] New Request Auto-Generat ed Referral 03/27/2024 04/26/2025 1 1 [facility] for referral (narrative)* Diagnostic Procedure Only (Urgent) - Closed Specialty Diagnoses / Procedures [facility] Referred To Contact MOLECULAR & FUNCTIONAL IMAGING Diagnoses Lung nodules Procedures NM PET/CT SKULL-THIGH INITIAL PET IMAGING CT ATTENUATION SKULL BASE MID-THIGH Tigre Restrepo MD [address] [place] [address] Molecular & Functional Imaging [address] [place] [address] Referral ID Status Reason Start Date Expiration Date V isits Requested Visits Authorized [id number] Closed Auto-Generate d Referral 04/21/2024 08/25/2024 1 1 [facility] for referral (narrative)* Outpatient Procedure (Routine) - Outside PCP Specialty Diagnoses / Procedures Referred By Contac t Referred To Contact [facility] Diagnoses Murmur Procedures ECHO ECHO TTHRC R-T 2D W/WOM-MODE COMPL SPEC&COLR D Claire Turner MD [address] [place] [address] [facility] [place] [address] [place] [address] Referral ID Status Reason Start Date Expiration Date Visits Requested Visits Authorized [id number] Outside PCP Auto-Generat ed Referral 05/22/2024 05/22/2025 1 1 [facility] for referral (narrative)* Outpatient Procedure (Routine) - Closed Specialty Diagnoses / Procedures Referred By Trav oglesby Referred To Contact [facility] Diagnoses Murmur Procedures ECHO ECHO TTHRC R-T 2D W/WOM-MODE COMPL SPEC&COLR D Claire Turner MD [address] [place] [address] [facility] [place] [address] [place] [address] Referral ID Status Reason Start Date Expiration Date V isits Requested Visits Authorized [id number] Closed Auto-Generate d Referral 06/05/2024 08/25/2024 1 1 [facility] for referral (narrative)No reason for referral information [facility] Work Phone: [facility] Narr[facility]* Diagnostic Procedure Only (Urgent) - Closed Specialty Diagnoses / Procedures Referred By Trav oglesby Referred To Contact MOLECULAR & FUNCTIONAL IMAGING Diagnoses Lung nodules Procedures NM PET/CT SKULL-THIGH INITIAL PET IMAGING CT ATTENUATION SKULL BASE MID-THIGH Tigre Restrepo MD [address] [place] [address] Molecular & Functional Imaging [address] [place] [address] Referral ID Status Reason Start Date Expiration Date V isits Requested Visits Authorized [id number] Closed Auto-Generate d Referral 04/21/2024 08/25/2024 1 1 [facility] for visit Narrative* Diagnostic Procedure Only (Routine) - Denied Specialty Diagnoses / Procedures Referred By Trav oglesby Referred To Contact Radiology / RADIO GEN [facility] Diagnoses Pulmonary emphysema, unspecified emphysema type (HCC) Pulmonary emphysema, unspecified emphysema type (HCC) [J43.9] Procedures RADIOLOGIC EXAM CHEST 2 VIEWS XR CHEST Tigre Restrepo MD [address] [place] [address] [facility] [address] [place] [address] Referral ID Status Reason Start Date Expiration Date V isits Requested Visits Authorized [id number] Denied Patient Cleared - [facility] 03/24/2024 06/22/2024 1 0 [facility] for visit Narrative* Outpatient Procedure (Routine) - Closed Specialty Diagnoses / Procedures Referred By Contac t Referred To Contact [facility] Diagnoses Murmur Procedures ECHO ECHO TTHRC R-T 2D W/WOM-MODE COMPL SPEC&COLR D Claire Turner MD [address] [place] [address] [facility] [place] [address] [place] [address] Referral ID Status Reason Start Date Expiration Date V isits Requested Visits Authorized [id number] Closed Auto-Generate d Referral 06/05/2024 08/25/2024 1 1 [facility] for visit Narrative* MRI/CT (Routine) - Closed Specialty Diagnoses / Procedures Referred By Contac t Referred To Contact CT IMAGING Diagnoses Pneumonia of both lungs due to Pseudomonas species, unspecified part of lung (HCC) Procedures CT CHEST WO IVCON DIAGNOSTIC COMPUTED TOMOGRAPHY THORAX W/O Tigre Alarcon MD [address] [place] [address] Phone: tel: fax: [facility] IMAGING [facility] Referral ID Status Reason Start Date Expiration Date V isits Requested Visits Authorized [id number] Closed Auto-Generate d Referral OON/Self Pay Override 10/16/2024 08/25/2025 1 1 [facility] for visit Narrative* MRI/CT (Routine) - Closed Specialty Diagnoses / Procedures Referred By Contac t Referred To Contact CT IMAGING Diagnoses Lung mass Procedures CT CHEST WO IVCON DIAGNOSTIC COMPUTED TOMOGRAPHY THORAX W/O Tigre Alarcon MD [address] [place] [address] Phone: tel: fax: [place] [address] Referral ID Status Reason Start Date Expiration Date V isits Requested Visits Authorized [id number] Closed Auto-Generate d Referral 04/16/2025 08/25/2025 1 1 [facility] Summary Purpose Family History No Family History Records FoundNo Family History Records FoundNo Family History Records FoundNo Family History Records FoundNo Family History Records FoundNo Family History Records Found Advance Directives No Advanced Directives Records Found Advance Directive Response Recorded Date/ Time Living Will No May 01 5:18am Power of Funeral Driver No May 01, 2021 5:18am Advance Directive Response Recorded Date/ Time Living Will No August 23 8:27pm Power of Funeral Driver No August 23, 2022 8:27pm Advance Directive Response Recorded Date/ Time Living Will No August 26 10:56am Power of Funeral Driver No August 26 10:56am Advance Directive Response Recorded Date/ Time Living Will No August 26 1:51pm Power of Funeral Driver No August 26 1:51pm Advance Directive Response Recorded Date/ Time Living Will No August 26 2:51pm Power of Funeral Driver No August 26 2:51pm Advance Directive Response Recorded Date/ Time Living Will Yes July 09 7:09am Power of Funeral Driver Yes July 09, 2023 7:09am Name of Medical Power of Funeral Driver July 09, 2023 7:09am Advance Directive Response Recorded Date/ Time Name of Medical Power of Funeral Driver July 09, 2023 7:09am Living Will No October 29, 2023 6:55am Power of Funeral Driver No October 28 6:55am Advance Directive Response Recorded Date/ Time Living Will No December 11, 2023 10:10am Power of Funeral Driver No December 10 10:10am Advance Directive Response Recorded Date/ Time Living Will No December 17, 2023 1:34pm Power of Funeral Driver No December 16 1:34pm Advance Directive Response Recorded Date/ Time Living Will No December 17, 2023 4:06pm Power of Funeral Driver No December 16 4:06pm Advance Directive Response Recorded Date/ Time Living Will Yes December 01, 2024 6:32am Do you have a Healthcare Power of Funeral Driver? Yes December 01, 2024 6:32am Name of Medical Power of Funeral Driver December 01, 2024 6:32am Advance Directives No March 02 9:01am Advance Directive Response Recorded Date/ Time Living Will Yes December 01, 2024 9:18am Do you have a Healthcare Power of Funeral Driver? Yes December 01, 2024 9:18am Name of Medical Power of Funeral Driver December 01, 2024 9:18am Advance Directives No March 02 9:01am Advance Directive Response Recorded Date/ Time Do you have a Healthcare Power of Funeral Driver? No June 01, 2025 7:51am Advance Directives No March 02 9:01am Advance Directive Response Recorded Date/ Time Do you have a Healthcare Power of Funeral Driver? No June 01, 2025 1:35pm Advance Directives [...] pneumonia Procedures CONSULT TO INFECTIOUS DISEASES OFFICE/OUTPATIENT [facility] 60 MINUTES Tigre Restrepo MD [address] [place] [address] Referral ID Status Reason Start Date Expiration Date Visits Requested Visits Authorized [id number] Authorized PCP Requested Referral 05/28/2024 05/28/2025 1 1 Specialty Diagnoses / Procedures Referred By Contac t Referred To Contact CT IMAGING Diagnoses Multiple nodules of lung Procedures CT CHEST WO IVCON DIAGNOSTIC COMPUTED TOMOGRAPHY THORAX W/O CNTRST Mehreen Crow MD [address] [place] [address] [facility] [place] [address] Referral ID Status Reason Start Date Expiration Date Visits Requested Visits Authorized [id number] Authorized Auto-Generat ed Referral 05/15/2024 08/25/2024 1 1 Specialty Diagnoses / Procedures Referred By Contac t Referred To Contact CT IMAGING Diagnoses Chest pain, unspecified type Procedures CT CHEST W IVCON PE DIAGNOSTIC COMPUTED TOMOGRAPHY THORAX W/CONTRAST Tigre Restrepo MD [address] [place] [address] [facility] [place] [address] Referral ID Status Reason Start Date Expiration Date V isits Requested Visits Authorized [id number] Closed Auto-Generate d Referral 03/26/2024 04/25/2025 1 1 Specialty Diagnoses / Procedures Referred By Contac t Referred To Contact CT IMAGING Diagnoses Chest pain on breathing Procedures CT CHEST W IVCON PE DIAGNOSTIC COMPUTED TOMOGRAPHY THORAX W/CONTRAST Tigre Restrepo MD [address] [place] [address] Ct Imaging [facility] Referral ID Status Reason Start Date Expiration Date Visits Requested Visits Authorized [id number] Pending Review Auto-Generat ed Referral 03/24/2024 04/23/2025 1 1 Specialty Diagnoses / Procedures Referred By Trav t Referred To Contact CT IMAGING Diagnoses Lung nodules Procedures CT CHEST WO IVCON DIAGNOSTIC COMPUTED TOMOGRAPHY THORAX W/O CNTRST Tigre Restrepo MD [address] [place] [address] [place] [address] Referral ID Status Reason Start Date Expiration Date Visits Requested Visits Authorized [id number] New Request Auto-Generat ed Referral 03/24/2024 04/23/2025 1 1 Additional Source Comments (unrecognized sect ion and content) No Status Records FoundNo Status Records FoundNo Status Records FoundNo Status Records FoundNo Status Records FoundNo Status Records Found INFORMATION SOURCE (unrecogn ized section and content) DATE CREATED AUTHOR 11/26/2020 [facility] DATE CREATED AUTHOR AUTHOR'S ORGANIZ ATION 09/11/2022 [facility] DATE CREATED AUTHOR AUTHOR'S ORGANIZ ATION 12/15/2023 [facility] DATE CREATED AUTHOR AUTHOR'S ORGANIZ ATION 04/18/2025 [facility] DATE CREATED AUTHOR AUTHOR'S ORGANIZ ATION 06/11/2025 [facility] DATE CREATED AUTHOR AUTHOR'S ORGANIZ ATION 06/24/2025 [facility] Goals (unrecognized section and content) Type Treatment Intervention Code Status: Full Code - Verified Goals may be documented in an alternate section Care Team (unrecognized sect ion and content) Care Team Personnel Name: RADHA STAHL III, MD Member Role: Primary Care Physician Address: Address: [address] [place] [address]- [place] Name: JUAN CHESTER PA Position: ED Physician Drywall Installer Member Role: ED PA Address: Address: [address] [place], [place] [address] [address]- Care Team Related Persons Name: SHAHBAZ QUINN Address: Home [address] [place] [address] [place] Care Teams (unrecognized sec tion and [...] Admit Provider, Other Provider A ctive Dr. aFdi Lloyd MD Attending Provider, Other Provi preet [...] MD Attending Provider, Emergency Pro vider Active Electronic Train Control Technician Relationship Specialty [place] [address] [address] PCP - General Internal Medicine 11/17/21 Electronic Train Control Technician Relationship Special[place] [address] [place] [address] [place] [address] PCP - General Internal Medicine 11/17/21 Electronic Train Control Technician Relationship Specialty [place] [address] [address] PCP - General Internal Medicine 11/17/21 Electronic Train Control Technician Relationship Specialty [place] [address] [address] PCP - General Internal Medicine 11/17/21 Electronic Train Control Technician Relationship Specialty [place] [address] [address] PCP - General Internal Medicine 11/17/21 Electronic Train Control Technician Relationship Specialty Start Date End Date Jr Ryan, [address] [address] PCP - General Internal Medicine 11/17/21 Electronic Train Control Technician Relationship [place]ty [place] [address] [address] PCP - General Internal Medicine 11/17/21 Electronic Train Control Technician Relationship Specialty [place] [address] [address] PCP - General Internal Medicine 11/17/21 Electronic Train Control Technician Relationship Specialty [place] [address] [place] [id number] PCP - General Internal Medicine 11/17/21 Electronic Train Control Technician Relationship Specialty [place] [address] [place] [id number] PCP - General Internal Medicine 11/17/21 Electronic Train Control Technician Relationship Specialty [place] [address] [place] [address] PCP - General Internal Medicine 11/17/21 Electronic Train Control Technician Relationship Specialty [place] [address] [place] [address] PCP - General Internal Medicine 11/17/21 Electronic Train Control Technician Relationship Specialty [place] [address] [place] [id number] PCP - General Internal Medicine 11/17/21 Electronic Train Control Technician Relationship Specialty Start Date End Date Jr Ryan, [address] [place] [id number] PCP - General Internal Medicine 11/17/21 Electronic Train Control Technician Relationship Specialty [place] [address] [place] [id number] PCP - General Internal Medicine 11/17/21 Electronic Train Control Technician Relationship Specialty [place] [address] [address] PCP - General Internal Medicine 11/17/21 Electronic Train Control Technician Relationship Specialty [place] [address] [address] PCP - General Internal Medicine 11/17/21 Electronic Train Control Technician Relationship Specialty [place] [address] [address] PCP - General Internal Medicine 11/17/21 Electronic Train Control Technician Relationship Specialty [place] [address] [address] PCP - General Internal Medicine 11/17/21 Team [...] Active Member Role Status Dates Michelle Ferraro TUBE CLEANING OPERATOR, TUBE CLEANING OPERATOR-C Primary Care Provider Activ e Team Status: Inactive Member Role Status Dates Dr. Todd Valdovinos , Emergency Provider Active Start: December 01, 2024 End: December 02, 2024 Dr. Anirudh Thompson , Admit Provider Active Star t: December 01, 2024 End: December 02, 2024 Dr. Anirudh Thompson DO Attending Provider Active Start: December 01, 2024 End: December 02, 2024 Michelle Ferraro TUBE CLEANING OPERATOR, TUBE CLEANING OPERATOR-C Primary Care Provider Activ e Start: December [...] Star t: December 02, 2024 Michelle Ferraro TUBE CLEANING OPERATOR, TUBE CLEANING OPERATOR-C Primary Care Provider Activ e Start: December 02, 2024 Team Status: Active Member Role Status Dates Dr. Todd Valdovinos DO Emergency Provider Active Start: December 02, 2024 Dr. Anirudh Thompson DO Admit Provider Active Star t: December 02, 2024 Dr. Anirudh Thompson DO Other Provider Active Star t: December 02, 2024 Michelle Ferraro TUBE CLEANING OPERATOR, TUBE CLEANING OPERATOR-C Primary Care Provider Activ e Start: December 02, 2024 Dr. Eh Castellon MD Attending Provider Active S tart: December 02, 2024 Electronic Train Control Technician Relationship Specialty [place] [address] [address] PCP - General Internal Medicine 11/17/21 Team Status: Active Member Role/Relationship Status Dates Michelle Ferraro TUBE CLEANING OPERATOR, TUBE CLEANING OPERATOR-C Primary care physician Acti ve Team Status: Active Member Role/Relationship Status Dates Dr. Vivi Pike DO Emergency Departm ent Physician Active Start: June 01, 2025 Michelle Ferraro TUBE CLEANING OPERATOR, TUBE CLEANING OPERATOR-C Primary care physician Active Start: May Dr. Karen Le , Admitting physician Active Start: June 01, 2025 Dr. Karen Le DO Attending physician Active Start: June 01, 2025 Team Status: Inactive Member Role/Relationship Status Dates Dr. Vivi Pike DO Emergency Departm ent Physician Active Start: June 01, 2025 End: June 02, 2025 Michelle Ferraro TUBE CLEANING OPERATOR, TUBE CLEANING OPERATOR-C Primary care physician Active Start: May End: [...] Active Start: June 02, 2025 Michelle Ferraro TUBE CLEANING OPERATOR, TUBE CLEANING OPERATOR-C Primary care physician Active Start: May Dr. [...] or prosecute any alcohol or drug abuse patient.[facility] the event this information is protected by the Federal Confidentiality of Alcohol and Drug Abuse Patient Records regulations: The Federal rules restrict any use of the information to criminally investigate or prosecute any alcohol or drug abuse patient.[facility] the event this information is protected by the Federal Confidentiality of Alcohol and Drug Abuse Patient Records regulations: The Federal rules restrict any use of the information to criminally investigate or prosecute any alcohol or drug abuse patient.[facility] the event this information is protected by the Federal Confidentiality of Alcohol and Drug Abuse Patient Records regulations: The Federal rules restrict any use of the information to criminally investigate or prosecute any alcohol or drug abuse patient.[facility]In the event this information is protected by the Federal Confidentiality of Alcohol and Drug Abuse Patient Records regulations: The Federal rules restrict any use of the information to criminally investigate or prosecute any alcohol or drug abuse patient.[facility] the event this information is protected by the Federal Confidentiality of Alcohol and Drug Abuse Patient Records regulations: The Federal rules restrict any use of the information to criminally investigate or prosecute any alcohol or drug abuse patient.[facility] the event this information is protected by the Federal Confidentiality of Alcohol and Drug Abuse Patient Records regulations: The Federal rules restrict any use of the information to criminally investigate or prosecute any alcohol or drug abuse patient.[facility] the event this information is protected by the Federal Confidentiality of Alcohol and Drug Abuse Patient Records regulations: The Federal rules restrict any use of the information to criminally investigate or prosecute any alcohol or drug abuse patient.[facility] the event this information is protected by the Federal Confidentiality of Alcohol and Drug Abuse Patient Records regulations: The Federal rules restrict any use of the information to criminally investigate or prosecute any alcohol or drug abuse patient.[facility] the event this information is protected by the Federal Confidentiality of Alcohol and Drug Abuse Patient Records regulations: The Federal rules restrict any use of the information to criminally investigate or prosecute any alcohol or drug abuse patient.[facility] the event this information is protected by the Federal Confidentiality of Alcohol and Drug Abuse Patient Records regulations: The Federal rules restrict any use of the information to criminally investigate or prosecute any alcohol or drug abuse patient.[facility]In the event this information is protected by the Federal Confidentiality of Alcohol and Drug Abuse Patient Records regulations: The Federal rules restrict any use of the information to criminally investigate or prosecute any alcohol or drug abuse patient.[facility]In the event this information is protected by the Federal Confidentiality of Alcohol and Drug Abuse Patient Records regulations: The Federal rules restrict any use of the information to criminally investigate or prosecute any alcohol or drug abuse patient.[facility]In the event this information is protected by the Federal Confidentiality of Alcohol and Drug Abuse Patient Records regulations: The Federal rules restrict any use of the information to criminally investigate or prosecute any alcohol or drug abuse patient.[facility]In the event this information is protected by the Federal Confidentiality of Alcohol and Drug Abuse Patient Records regulations: The Federal rules restrict any use of the information to criminally investigate or prosecute any alcohol or drug abuse patient.[facility]In the event this information is protected by the Federal Confidentiality of Alcohol and Drug Abuse Patient Records regulations: The Federal rules restrict any use of the information to criminally investigate or prosecute any alcohol or drug abuse patient.[facility]In the event this information is protected by the Federal Confidentiality of Alcohol and Drug Abuse Patient Records regulations: The Federal rules restrict any use of the information to criminally investigate or prosecute any alcohol or drug abuse patient.[facility]In the event this information is protected by the Federal Confidentiality of Alcohol and Drug Abuse Patient Records regulations: The Federal rules restrict any use of the information to criminally investigate or prosecute any alcohol or drug abuse patient.[facility]In the event this information is protected by the Federal Confidentiality of Alcohol and Drug Abuse Patient Records regulations: The Federal rules restrict any use of the information to criminally investigate or prosecute any alcohol or drug abuse patient.[facility]In the event this information is protected by the Federal Confidentiality of Alcohol and Drug Abuse Patient Records regulations: The Federal rules restrict any use of the information to criminally investigate or prosecute any alcohol or drug abuse patient.[facility]In the event this information is protected by the Federal Confidentiality of Alcohol and Drug Abuse Patient Records regulations: The Federal rules restrict any use of the information to criminally investigate or prosecute any alcohol or drug abuse patient.[facility]In the event this information is protected by the Federal Confidentiality of Alcohol and Drug Abuse Patient Records regulations: The Federal rules restrict any use of the information to criminally investigate or prosecute any alcohol or drug abuse patient.[facility]In the event this information is protected by the Federal Confidentiality of Alcohol and Drug Abuse Patient Records regulations: The Federal rules restrict any use of the information to criminally investigate or prosecute any alcohol or drug abuse patient.[facility]In the event this information is protected by the Federal Confidentiality of Alcohol and Drug Abuse Patient Records regulations: The Federal rules restrict any use of the information to criminally investigate or prosecute any alcohol or drug abuse patient.[facility]In the event this information is protected by the Federal Confidentiality of Alcohol and Drug Abuse Patient Records regulations: The Federal rules restrict any use of the information to criminally investigate or prosecute any alcohol or drug abuse patient.[facility]In the event this information is protected by the Federal Confidentiality of Alcohol and Drug Abuse Patient Records regulations: The Federal rules restrict any use of the information to criminally investigate or prosecute any alcohol or drug abuse patient.[facility]In the event this information is protected by the Federal Confidentiality of Alcohol and Drug Abuse Patient Records regulations: The Federal rules restrict any use of the information to criminally investigate or prosecute any alcohol or drug abuse patient.[facility]In the event this information is protected by the Federal Confidentiality of Alcohol and Drug Abuse Patient Records regulations: The Federal rules restrict any use of the information to criminally investigate or prosecute any alcohol or drug abuse patient.[facility]In the event this information is protected by the Federal Confidentiality of Alcohol and Drug Abuse Patient Records regulations: The Federal rules restrict any use of the information to criminally investigate or prosecute any alcohol or drug abuse patient.[facility]In the event this information is protected by the Federal Confidentiality of Alcohol and Drug Abuse Patient Records regulations: The Federal rules restrict any use of the information to criminally investigate or prosecute any alcohol or drug abuse patient.[facility]In the event this information is protected by the Federal Confidentiality of Alcohol and Drug Abuse Patient Records regulations: The Federal rules restrict any use of the information to criminally investigate or prosecute any alcohol or drug abuse patient.[facility]In the event this information is protected by the Federal Confidentiality of Alcohol and Drug Abuse Patient Records regulations: The Federal rules restrict any use of the information to criminally investigate or prosecute any alcohol or drug abuse patient.[facility] HospitalIn the event this information is protected by the Federal Confidentiality of Alcohol and Drug Abuse Patient Records regulations: The Federal rules restrict any use of the information to criminally investigate or prosecute any alcohol or drug abuse patient.[facility]In the event this information is protected by the Federal Confidentiality of Alcohol and Drug Abuse Patient Records regulations: The Federal rules restrict any use of the information to criminally investigate or prosecute any alcohol or drug abuse patient.[facility]In the event this information is protected by the Federal Confidentiality of Alcohol and Drug Abuse Patient Records regulations: The Federal rules restrict any use of the information to criminally investigate or prosecute any alcohol or drug abuse patient.[facility]In the event this information is protected by the Federal Confidentiality of Alcohol and Drug Abuse Patient Records regulations: The Federal rules restrict any use of the information to criminally investigate or prosecute any alcohol or drug abuse patient.[facility] HospitalIn the event this information is protected by the Federal Confidentiality of Alcohol and Drug Abuse Patient Records regulations: The Federal rules restrict any use of the information to criminally investigate or prosecute any alcohol or drug abuse patient.[facility] HospitalIn the event this information is protected by the Federal Confidentiality of Alcohol and Drug Abuse Patient Records regulations: The Federal rules restrict any use of the information to criminally investigate or prosecute any alcohol or drug abuse patient.[facility]In the event this information is protected by the Federal Confidentiality of Alcohol and Drug Abuse Patient Records regulations: The Federal rules restrict any use of the information to criminally investigate or prosecute any alcohol or drug abuse patient.[facility] HospitalIn the event this information is protected by the Federal Confidentiality of Alcohol and Drug Abuse Patient Records regulations: The Federal rules restrict any use of the information to criminally investigate or prosecute any alcohol or drug abuse patient.[facility] HospitalIn the event this information is protected by the Federal Confidentiality of Alcohol and Drug Abuse Patient Records regulations: The Federal rules restrict any use of the information to criminally investigate or prosecute any alcohol or drug abuse patient.[facility] HospitalIn the event this information is protected by the Federal Confidentiality of Alcohol and Drug Abuse Patient Records regulations: The Federal rules restrict any use of the information to criminally investigate or prosecute any alcohol or drug abuse patient.[facility] HospitalIn the event this information is protected by the Federal Confidentiality of Alcohol and Drug Abuse Patient Records regulations: The Federal rules restrict any use of the information to criminally investigate or prosecute any alcohol or drug abuse patient.[facility] HospitalIn the event this information is protected by the Federal Confidentiality of Alcohol and Drug Abuse Patient Records regulations: The Federal rules restrict any use of the information to criminally investigate or prosecute any alcohol or drug abuse patient.[facility] Reason for Visit (unrecogniz ed section and content) Reason Comments Referral Request Reason Comments Spirometry Specialty Diagnoses / Procedures Referred By Contac t Referred [facility] Diagnoses SOB (shortness of breath) Procedures SPIROMETRY WITH DILATOR IF OBSTRUCTED BRNCDILAT RSPSE SPMTRY PRE&POST-BRNCDILAT ADMN Annette Marrero MD [address] [place] [address] [address] Referral ID Status Reason Start Date Expiration Date V isits Requested Visits Authorized [id number] Denied Patient Cleared - [facility] 03/06/2024 04/04/2025 1 0 Specialty Diagnoses / Procedures Referred By Contac t Referred [facility] Diagnoses SOB (shortness of breath) Procedures LUNG DIFFUSION CAPACITY (DLCO) DIFFUSING CAPACITY Annette Marrero MD [address] [place] [address] [address] Referral ID Status Reason Start Date Expiration Date V isits Requested Visits Authorized [id number] Denied Patient Cleared - [facility] 03/24/2024 08/25/2024 1 0 Reason Comments Consult copd - pfts and cxr done Specialty Diagnoses / Procedures Referred By Contac t Referred To Contact Pulmonary and Critical Care Medicine / PULMONARY MEDICINE Diagnoses Provider: Any Staff Rn Correctional Appointment Type: [id number] (In Person) Location: Patient preference Visit Type: NEW Diagnosis: COPD Appointment Time Frame: Other: Per patient's convenience ([place], [place], [place], [place]) Testing Needed: TESTS: Any that are required. Patient has not been seen by pulmonary at [facility]. Staff msg Procedures OFFICE/OUTPATIENT NEW MODERATE MDM 45 MINUTES RI NEW COPD Self Tigre Restrepo MD [address] [place] [address] Referral ID Status Reason Start Date Expiration Date V isits Requested Visits Authorized [id number] Denied Patient Cleared - [facility] 03/24/2024 06/22/2024 1 0 Reason Comments Received Outside Medical Records immunit y therapy center Reason Comments Patient Update Reason Comments Radiology CT Specialty Diagnoses / Procedures Referred By Contac t Referred To Contact CT IMAGING Diagnoses Chest pain on breathing Procedures CT CHEST W IVCON PE DIAGNOSTIC COMPUTED TOMOGRAPHY THORAX W/CONTRAST Tigre Restrepo MD [address] [place] [address] Ct Imaging [id number] Referral ID Status Reason Start Date Expiration Date Visits Requested Visits Authorized [id number] Authorized Patient Cleared - [facility] 03/24/2024 04/23/2025 1 2 Reason Comments [...] IVCON DIAGNOSTIC COMPUTED TOMOGRAPHY THORAX W/O CNTEMMANUELLET Mehrene Crow MD [address] [place] [address] Ct Imaging [place] [address] Referral ID Status Reason Start Date Expiration Date V isits Requested Visits Authorized [id number] Closed Auto-Generate d Referral 05/15/2024 08/25/2024 1 [...] Diagnoses COPD Procedures RI EST COPD [facility] [place] [address] [place] [address] Phone: tel: Tigre Restrepo MD [address] [place] [address] Phone: tel: fax: Referral ID Status Reason Start Date Expiration Date Visits Re quested Visits Authorized [id number] Closed 10/16/2024 08/25/2025 1 1 Reason Comments LMTCB Patient Request Message regarding ID Reason Comments COPD FOLLOW UP Specialty Diagnoses / Procedures Referred By Contac t Referred To Contact Pulmonary and Critical Care Medicine / PULMONARY MEDICINE Diagnoses COPD Procedures RI EST COPD [facility] [address] [place] [address] Phone: tel: Tigre Restrepo MD [address] [place] [address] Phone: tel: fax: FOR RECORDS PERTAINING TO [...] ON THE PRIMARY CLINICAL RECORDS. [facility]. provides no warranty or guarantee of the accuracy or completeness of information in this document.
[2025-08-05 00:05] LABS: Differential Comment SCANNED
[2025-08-05] MEDS: 0.9% Normal Saline (1000mL) 1,000 ML 100 ML IV (00:40)
[2025-08-05] MEDS: 0.9% Saline Lock 10 ML Syringe IV ×2 (00:51→13:57)
[2025-08-05 01:19] LABS: SITE Not entered; VBG BASE EXCESS 5 mmol/L (-1.0-3.5); VBG PO2 33 mmHg (25-40); VBG SO2 55 % (50-70); VBG TCO2 33 mmol/L (23-33)
[2025-08-05 01:21] LABS: Troponin T High Sens 2 HR 16 ng/L (<=22)
[2025-08-05 01:30] LABS: Procalcitonin 0.33 ng/mL (<=0.10)
[2025-08-05] MEDS: Albuterol 2.5 MG/3 ML VIAL.NEB. INHALATION ×3 (02:28→13:21)
[2025-08-05 02:40] LABS: Troponin T High Sens 4 HR 26 ng/L (<=22)
[2025-08-05 05:15] LABS: Hematocrit 34.3 % (40-54); Hemoglobin 11.3 g/dL (13.0-16.5); Immature Granulocytes Count 0.080 X10^3/uL (0.0-0.0); Mean Corp Hgb Conc 32.9 g/dL (32-36); Mean Corpuscular Volume 87.1 fL (80-94); Mean Platelet Vol. 9.1 fl (6.2-12.0); NRBC Flagged by Analyzer 0 % (0-5); POSITIVE DIFFERENTIAL YES; Platelet Count 288 K/mm3 (150-450); RBC Distribution Width CV 13.7 % (11.6-14.6); RBC Distribution Width SD 43.7 fl (35.1-43.9); Red Blood Count 3.94 M/mm3 (4.6-6.2); White Blood Count 16.0 K/mm3 (4.4-11.0)
[2025-08-05 05:55] LABS: AST(SGOT) 18 U/L (<=37); Alanine Aminotransfer ALT/SGPT 13 U/L (<=46); Albumin, Serum 3.6 g/dL (3.4-4.8); Alkaline Phosphatase 70 U/L (40-129); Anion Gap 10 (5-15); BUN 28 mg/dL (4-19); BUN/Creat Ratio 32.1 RATIO (10-20); Calcium,Total 8.8 mg/dL (7.6-11.0); Carbon Dioxide 27.6 mmol/L (21.0-32.0); Chloride 98 mmol/L (98-108); Estimated Creatinine Clearance 54.17 ml/min (50-250); Globulin 2.2 g/dL (2.2-4.2); Glucose 246 mg/dL (70-99); Potassium 4.7 mmol/L (3.3-5.1)
--- NOTE | 2025-08-05 07:41 | EX.PCM.CONCC ---
Assessment & Plan Assessment/Plan (1) COPD exacerbation: PLAN: Plan RECOMMENDATIONS: 1. Supplemental oxygen, if needed, to maintain saturations at or above 90%. 2. Continue bronchodilators and steroids. 3. Transition to prednisone 40 mg daily x 5 days at discharge. 4. Follow-up with primary binder roller within 2 weeks of discharge. 5. The patient is medically stable for transfer out of the intensive care unit. Will sign off at this time. IMPRESSIONS: 1. Acute hypoxemic and hypercapnic respiratory failure Most likely related to COPD exacerbation without clear infectious precipitating etiology. The patient was transiently on BiPAP and has been weaned to nasal cannula oxygen with minimal requirement. He does have known advanced age COPD and is currently followed by Dr Perez on an outpatient basis. Recommend continuing bronchodilator therapy and steroids. At discharge, transition to prednisone 40 mg daily x 5 days. I would recommend that the patient follow-up with his primary pulmonary provider within 2 weeks of discharge. I have no additional recommendations from a pulmonary perspective. The patient is medically stable for transfer out of the intensive care unit. 2. History of pulmonary nodularity This is a chronic issue that is being addressed by his outpatient primary binder roller. 3. History of coronary artery disease/valvular heart disease/chronic kidney disease/hypertension/anxiety/BPH Complicates care, management, recovery and prognosis. Continue supportive care as noted above. CODE STATUS: DNR CCA without intubation This note was generated with [employer] dictation software. It may contain incorrect words, spelling, and punctuation that were not noted in checking the note before signing. HPI Consult Data Date of Consult: 08/05/25 HPI Narrative Reason for Consultation: COPD exacerbation HPI Narrative: The patient is a 74-year-old male, with a history as outlined below, who presented to the emergency department on August 04 with complaints of shortness of breath and wheezing. The patient has a known history of advanced age COPD and pulmonary nodularity. He is followed on an outpatient basis by Dr. Perez of pulmonary medicine. The patient reported that he utilize supplemental oxygen on a nocturnal basis at 2 L/min. On presentation to the emergency department, the patient was noted to be afebrile but was mildly tachycardic and tachypneic. He was initially placed on a nonrebreather, prior to being transitioned to BiPAP. Initial laboratory evaluation revealed a white blood cell count of 25,000. Arterial blood gas was notable for a pH of 7.27 with a pCO2 of 65 and pO2 of 94. Chemistry profile was unremarkable. Lactate was within normal limits. COVID, influenza and RSV PCR's were negative. Respiratory viral panel was negative. Chest x-ray demonstrated no acute cardiopulmonary process. The patient was subsequently placed on bronchodilator therapy along with IV steroids. He was admitted to the medical intensive care unit for further management. CODE STATUS was confirmed to be DNR CCA without intubation. This morning, the patient has been weaned from BiPAP and is doing well clinically on 3 L/min. [facility] Medical History Chronic hypoxic respiratory failure, on home oxygen therapy CAD (coronary artery disease) Pulmonary nodules COPD (chronic obstructive pulmonary disease) Hypertension Aortic stenosis Urinary retention Anxiety COPD (chronic obstructive pulmonary disease) [place] (hard of hearing) Hypertension Home Medications ?Medication ?Instructions ?Recorded ?Last Taken ?Type amlodipine 5 mg tablet 5 mg PO DAILY blood pressure 03/06/21 06/01/25 History albuterol sulfate 2.5 mg/3 mL 2.5 mg (3 mL) inhalation Q4H PRN 12/11/23 06/01/25 Rx (0.083 %) solution for nebulization #25 vials garlic 1,000 mg capsule 1,000 mg PO DAILY general health 12/17/23 Unknown History vitamin E 268 mg (400 unit) capsule 268 mg PO DAILY blood clot 12/17/23 06/01/25 History prevention alprazolam 0.25 mg tablet (Xanax) 0.375 mg PO QHS anxiety 02/28/24 05/31/25 History fluticasone fur. 100 mcg-umeclid 1 inh inhalation DAILY 02/28/24 06/01/25 History 62.5 mcg-vilant 25 mcg inhalat.powder (Trelegy Ellipta) albuterol sulfate 90 mcg/actuation 1 inh inhalation Q6H PRN shortness 12/01/24 05/31/25 History aerosol inhaler of breath or wheezing prednisone 5 mg tablet 5 mg PO DAILY PRN sob 06/01/25 05/31/25 History zolpidem 10 mg tablet (Ambien) 10 mg PO QHS 08/04/25 Unknown History OXYGEN - Supplemental ([facility] Pulmonary Information 08/05/25 Unknown History INFORMATIONAL USE ONLY) Allergy/AdvReac Type Severity Reaction Status Date / Time No Known Allergies Allergy Verified 08/04/25 21:25 Family History (Updated 08/05/25 @ 00:[address] Randa Mckeon MD) Mother Diabetes Father Heart disease Surgical History Hx of hernia repair History of replacement of both shoulder joints Social History household members: spouse housing: house Smoking Status: Former smoker alcohol intake: never substance use type: does not use ROS ROS Narrative 10 systems were reviewed with pertinent positives as noted in the HPI above. Physical Exam Const alert, oriented x3 and no apparent distress General Appearance: cooperative HEENT normocephalic and head/scalp atraumatic Eyes PERRL, EOMs intact bilaterally and conjunctivae normal Neck supple General: trachea midline Chest inspection of chest normal Resp normal respiratory effort and no use of accessory muscles Effort and Inspection: able to speak in complete sentences Auscultation: diminished lung sounds; Negative for rales, rhonchi or wheezes Cardio regular rate and regular rhythm GI normal to inspection, nondistended, normoactive bowel sounds Extremity no clubbing, cyanosis or edema Skin no rashes or lesions noted Neuro CN's II-XII intact bilaterally, moves all extremities and no focal motor deficits Psych cooperative and affect normal Lab / Micro Data 08/05/25 04:51 08/05/25 04:51 Labs: Laboratory Results - last 24 hr 08/04/25 22:34: WBC 24.9 H, RBC 4.52 L, Hgb 12.8 L, Hct 39.6 L, MCV 87.6, MCH 28.3, MCHC 32.3, RDW Std Deviation 43.8, RDW Coeff of Sherri 13.6, Plt Count 366, MPV 9.2, Immature Gran % (Auto) 0.700, Neut % (Auto) 94.0 H, Lymph % (Auto) 1.4 L, [place] % (Auto) 3.6, Eos % (Auto) 0.0, Baso % (Auto) 0.3, Absolute Neuts (auto) 23.5 H, Absolute Lymphs (auto) 0.34 L, Nucleated RBC % 0, Differential Comment SCANNED, Sodium 135, Potassium 4.2, Chloride 95 L, Carbon Dioxide 28.9, Anion Gap 11, BUN 29 H, Creatinine 0.91, Estim Creat Clear Calc 59.63, Est GFR (MDRD) Non-Af 88, BUN/Creatinine Ratio 32.0 H, Glucose 199 H, Calcium 8.9, Troponin T High Sens 21 D, NT pro BNP II 261 08/05/25 00:05: Lactic Acid 1.3 08/05/25 00:45: Troponin T Hi Sens 2 Hr 16, Procalcitonin 0.33 H 08/05/25 02:05: Troponin T Hi Sens 4Hr 26 H 08/05/25 04:51: WBC 16.0 H, RBC 3.94 L, Hgb 11.3 L, Hct 34.3 L, MCV 87.1, MCH 28.7, MCHC 32.9, RDW Std Deviation 43.7, RDW Coeff of Sherri 13.7, Plt Count 288, MPV 9.1, Immature Gran % (Auto) 0.500, Neut % (Auto) 97.6 H, Lymph % (Auto) 1.5 L, [place] % (Auto) 0.3, Eos % (Auto) 0.0, Baso % (Auto) 0.1, Absolute Neuts (auto) 15.7 H, Absolute Lymphs (auto) 0.24 L, Nucleated RBC % 0, Sodium 136, Potassium 4.7, Chloride 98, Carbon Dioxide 27.6, Anion Gap 10, BUN 28 H, Creatinine 0.88, Estim Creat Clear Calc 54.17, Est GFR (MDRD) Non-Af 90, BUN/Creatinine Ratio 32.1 H, Glucose 246 H, Calcium 8.8, Total Bilirubin 0.34, AST 18, ALT 13, Alkaline Phosphatase 70, Total Protein 5.8 L, Albumin 3.6, Globulin 2.2, Albumin/Globulin Ratio 1.6 Micro: Microbiology 08/05/25 00:45 Mucosa - Nasopharyngeal Respiratory Panel (PCR) - Final 08/04/25 22:00 Mucosa - Nose SARS-CoV-2, Influenza & RSV (PCR) - Final ABG Data ABG results: ABG 08/04/25 08/05/25 21:41 01:15 Specimen Type ART VERONICA Sample Site L Radial Not entered pH 7.27 L Bicarbonate Actual 30.1 H Total CO2 32 Base Excess 3 H O2 Saturation 96 O2 % 30.0 ABG pCO2 65.0 H ABG pO2 94 Jamie Test Positive VBG pH 7.30 L VBG pO2 33 VBG HCO3 31 H VBG Total CO2 33 VBG O2 Sat (Calc) 55 VBG Base Excess 5 H POC Mix VBG pCO2 Pt Tmp 63.3 H O2 Delivery Device BiPAP Not entered Vent Mode Not entered Clinical Comments 16. 8. Imaging Radiology Impression Chest X-Ray 08/04/25 22:17 IMPRESSION: 1. No evidence of acute cardiopulmonary disease. 2. Chronic interstitial emphysematous lung changes. 3. Multiple scattered pulmonary nodules, the largest in the left upper lung measuring 2.1 cm, grossly stable but better assessed on prior chest CT. Reading Location: [id number] Charges/Coding Visit Charges Inpatient E&M: 38284 Init Hosp L2
--- NOTE | 2025-08-05 08:35 | NURSING ---
trialed on room air, O2 sats dropped to 84%, placed on 2L NC sats 87%, increased to 3L NC and sats improved to 95%
--- NOTE | 2025-08-05 09:11 | PCM.PN.HOSP ---
Subjective Subjective Breathing improved, not on any oxygen currently Objective Data Objective Data Vital Signs: Vital Signs Temp Pulse Resp BP Pulse Ox O2 Del Method O2 Flow Rate 98.2 F 89 20 H 139/73 H 100 Nasal Cannula 3 08/05/25 07:00 08/05/25 08:53 08/05/25 08:53 08/05/25 07:00 08/05/25 08:53 08/05/25 08:53 08/05/25 08:53 FiO2 30 08/05/25 05:00 Oxygen Flow Rate (L/min) 3 Oxygen Delivery Method Nasal Cannula Weight: 114 lb 10.246 oz Body Mass Index (BMI) 18.4 Intake & Output: Intake and Output for Last 24 Hours 08/04/25 08/05/25 08/06/25 03:59 03:59 03:59 Intake Total 0 / 0 400 / 400 Output Total 800 / 800 Balance 0 / -400 -400 / -400 Lab / Micro Data 08/05/25 04:51 08/05/25 04:51 Labs: Laboratory Results - last 24 hr 08/04/25 22:34: WBC 24.9 H, RBC 4.52 L, Hgb 12.8 L, Hct 39.6 L, MCV 87.6, MCH 28.3, MCHC 32.3, RDW Std Deviation 43.8, RDW Coeff of Sherri 13.6, Plt Count 366, MPV 9.2, Immature Gran % (Auto) 0.700, Neut % (Auto) 94.0 H, Lymph % (Auto) 1.4 L, [place] % (Auto) 3.6, Eos % (Auto) 0.0, Baso % (Auto) 0.3, Absolute Neuts (auto) 23.5 H, Absolute Lymphs (auto) 0.34 L, Nucleated RBC % 0, Differential Comment SCANNED, Sodium 135, Potassium 4.2, Chloride 95 L, Carbon Dioxide 28.9, Anion Gap 11, BUN 29 H, Creatinine 0.91, Estim Creat Clear Calc 59.63, Est GFR (MDRD) Non-Af 88, BUN/Creatinine Ratio 32.0 H, Glucose 199 H, Calcium 8.9, Troponin T High Sens 21 D, NT pro BNP II 261 08/05/25 00:05: Lactic Acid 1.3 08/05/25 00:45: Troponin T Hi Sens 2 Hr 16, Procalcitonin 0.33 H 08/05/25 02:05: Troponin T Hi Sens 4Hr 26 H 08/05/25 04:51: WBC 16.0 H, RBC 3.94 L, Hgb 11.3 L, Hct 34.3 L, MCV 87.1, MCH 28.7, MCHC 32.9, RDW Std Deviation 43.7, RDW Coeff of Sherri 13.7, Plt Count 288, MPV 9.1, Immature Gran % (Auto) 0.500, Neut % (Auto) 97.6 H, Lymph % (Auto) 1.5 L, [place] % (Auto) 0.3, Eos % (Auto) 0.0, Baso % (Auto) 0.1, Absolute Neuts (auto) 15.7 H, Absolute Lymphs (auto) 0.24 L, Nucleated RBC % 0, Sodium 136, Potassium 4.7, Chloride 98, Carbon Dioxide 27.6, Anion Gap 10, BUN 28 H, Creatinine 0.88, Estim Creat Clear Calc 54.17, Est GFR (MDRD) Non-Af 90, BUN/Creatinine Ratio 32.1 H, Glucose 246 H, Calcium 8.8, Total Bilirubin 0.34, AST 18, ALT 13, Alkaline Phosphatase 70, Total Protein 5.8 L, Albumin 3.6, Globulin 2.2, Albumin/Globulin Ratio 1.6 Micro: Microbiology 08/05/25 00:45 Mucosa - Nasopharyngeal Respiratory Panel (PCR) - Final 08/04/25 22:00 Mucosa - Nose SARS-CoV-2, Influenza & RSV (PCR) - Final ABG Data ABG results: ABG 08/04/25 08/05/25 21:41 01:15 Specimen Type ART VERONICA Sample Site L Radial Not entered pH 7.27 L Bicarbonate Actual 30.1 H Total CO2 32 Base Excess 3 H O2 Saturation 96 O2 % 30.0 ABG pCO2 65.0 H ABG pO2 94 Jamie Test Positive VBG pH 7.30 L VBG pO2 33 VBG HCO3 31 H VBG Total CO2 33 VBG O2 Sat (Calc) 55 VBG Base Excess 5 H POC Mix VBG pCO2 Pt Tmp 63.3 H O2 Delivery Device BiPAP Not entered Vent Mode Not entered Clinical Comments 16. 8. Radiography Diagnostic Testing: Radiology Impression Chest X-Ray 08/04/25 22:17 IMPRESSION: 1. No evidence of acute cardiopulmonary disease. 2. Chronic interstitial emphysematous lung changes. 3. Multiple scattered pulmonary nodules, the largest in the left upper lung measuring 2.1 cm, grossly stable but better assessed on prior chest CT. Reading Location: [facility] Physical Exam Narrative General: Alert, Oriented x3, Cooperative, No apparent distress HEENT: Atraumatic, PERRLA, EOMI, Normocephalic Oral: Moist Mucosa Neck: Supple, No JVD Lungs: Diminished, poor air movement, No rhonchi, No wheeze, No rales Cardiovascular: Regular rate, Regular Rhythm, Normal S1, Normal S2, No murmurs Abdomen: Soft, Non Tender, Non-Distended, No Hepato-splenomegaly Extremities: No edema, Capillary Refill Less than 3 Seconds Skin: No rashes, No breakdown Musculoskeletal: No Tenderness to Palpation of Joints or Extremities Neurological: No focal neurological deficits, moves all extremities Psych/Mental Status: Normal Affect, Appropriate Assessment & Plan Assessment/Plan (1) Acute on chronic respiratory failure with hypoxia and hypercapnia: (2) COPD exacerbation: PLAN: Plan 1. Acute on chronic hypoxic and hypercapnic respiratory failure secondary to COPD exacerbation ? Currently off of oxygen maintaining oxygen saturations at 94% on room air ? Continue with steroids ? Will transfer out of the ICU ? Leukocytosis has improved ? Continue with inhalers ? Chest x-ray does confirm previously known pulmonary nodules follow-up as an outpatient 2. Essential HTN ? Continue with his Norvasc ? Will monitor make adjustments as necessary 3. Anxiety ? Stable ? Continue with his home medications DVT: Lovenox Charges/Coding Visit Charges Inpatient E&M: 75746 Subs Hosp L2
--- NOTE | 2025-08-05 10:38 | CASEMGMT ---
RN?CM?ASSESSMENT ? RN?CM?to room to meet with patient for initial transition planning/care coordination?assessment.?RN?CM?introduced self and role at [facility].? Pt voices understanding and consents to?assessment?at this time.? Pt resting in bed in no distress at this time, and son, Hernandez, @ bedside.? Pt is A/O at this time and answers all questions appropriately.?? Care providers, pharmacy, and demographics verified/updated at this time. ? Strata: 2 PCP: ADELSO Erickson Specialists: Dr Meyer ([facility] in [place]), Dr Castellon @ [facility]/Cardiology. Pt does not want to see Dr Castellon any longer and would like to see Dr Burrell moving forward. Pt and asked for EM JOINER for assistance w/scheduling appt for pt w/Dr Burrell. Call placed to [facility] & spoke w/Dee, law secretary. She was made aware pt wishes to start seeing Dr Burrell. She states the earliest appt Dr Burrell has is Sep 09. However, Iliana Thrasher NP, does have an appt available Aug 16. Pt and made aware. They state would like the appt scheduled w/her on Aug 16. Appt made for 08/16 @ 10:45 AM. Pt and made aware and appt put in pt's dc plan. Preferred Pharmacy: [facility]. Insurance: [facility] Prescription Benefit:?none LNOK: , Jaylyn. 5 adult sons, 2 adult daughters. 2 sons are Ornelas and Hernandez. Living Arrangements: Lives w/ in 2-story home w/flat entrance. Independent w/ADL's. manages home tasks. Transportation:?Hire drivers. Pt would like to utilize [facility] van transport @ dc. DME: States has the following DME:?cane (uses outside PRN), nebulizer, pulse ox. Pt has a personal portable O2 concentrator he uses PRN. He states his PCP is aware of this. He & educated on importance of notifying PCP or coming to the hospital to be evaluated if he starts noticing pulse ox is dropping or having increase in SOB instead of just treating himself w/O2 or increasing O2 liter flow rate. They voice understanding. Pt states they have a battery @ home to charge the POC. He also has a back-up battery. Pt and feel, even if pt qualifies for O2 24/7 @ dc, that his POC will be sufficient for supplying O2 24/7, as they can have it charging even while using it. However, pt would like to have pricing from [employer] for a concentrator and also for portable O2 tanks. E-mail sent to Aziza @ [employer]. HHC/SNF: No hx. No needs identified. Pt declines need for therapy or HHC. He states, I can do my own therapy @ home. ? Pt and wish for pt to return home and states has no further concerns with going home at time of discharge. ? PLAN:??Home Follow for possible need of O2 @ dc. ? Steve BSN?RN?CM
--- NOTE | 2025-08-05 15:39 | CASEMGMT ---
EM JOINER called [facility] to get pricing for patient paying out of pocket. Per Cristal New Concentrator up to 5L = $1282.22, used Concentrator = $854.81. [employer] for portable O2 tanks = $15/tank. Cost for Tubing $5.00. Any service needing to be done would be additional costs. Pt is able to apply for waiver program, which is available to patients that do not have insurance. Waiver program offers the equipment at a lower cost.
--- NOTE | 2025-08-05 15:51 | CASEMGMT ---
EM JOINER into pt room, pt and son in room. Provided pricing for [employer] oxygen. Pt states they have a family friend that is giving them their portable O2 carrier (sounds like an [employer] portable O2) to use. EM JOINER explained that if they leave the hospital and decide to go with [employer] they will need to follow up with their PCP to obtain a script to purchase the concentrator or portable tanks. Family voices understanding. Deny any additional questions or needs at this time.
[2025-08-06 04:00] VITALS: BP 121/78; PULSE 78; RESP 14; TEMP 36.6; O2SAT 98
[2025-08-06 05:10] VITALS: BMI 18.4
[2025-08-06] MEDS: 0.9% Saline Lock 10 ML Syringe IV (06:31)
[2025-08-06 07:06] LABS: Hematocrit 39.3 % (40-54); Hemoglobin 12.5 g/dL (13.0-16.5); Immature Granulocytes Count 0.070 X10^3/uL (0.0-0.0); Mean Corp Hgb Conc 31.8 g/dL (32-36); Mean Corpuscular Volume 89.1 fL (80-94); Mean Platelet Vol. 9.6 fl (6.2-12.0); NRBC Flagged by Analyzer 0 % (0-5); POSITIVE DIFFERENTIAL YES; Platelet Count 326 K/mm3 (150-450); RBC Distribution Width CV 13.9 % (11.6-14.6); RBC Distribution Width SD 45.1 fl (35.1-43.9); Red Blood Count 4.41 M/mm3 (4.6-6.2); White Blood Count 12.2 K/mm3 (4.4-11.0)
[2025-08-06 07:28] LABS: Anion Gap 6 (5-15); BUN 26 mg/dL (4-19); BUN/Creat Ratio 35.3 RATIO (10-20); Calcium,Total 9.8 mg/dL (7.6-11.0); Carbon Dioxide 31.4 mmol/L (21.0-32.0); Chloride 99 mmol/L (98-108); Estimated Creatinine Clearance 59.70 ml/min (50-250); Glucose 167 mg/dL (70-99); Potassium 5.1 mmol/L (3.3-5.1)
--- NOTE | 2025-08-06 09:15 | CASEMGMT ---
RN CM NOTE: Participated in ICU rounds. Pt sitting up chair, in room visiting. Pt to discharge home today. Per Claire STRICKLAND, home ambulatory testing has been completed and pt does not qualify for home O2. He and deny having any discharge needs. states they have transportation home & they can stop @ [facility] today to grape picker new Rx's. Steve JOSEN RN CM
[2025-08-06] MEDS: Ensure Plus High Protein 120 ML LIQUID PO (09:53)
[2025-08-06 09:58] VITALS: BP 123/71; PULSE 85; RESP 18; TEMP 36.7; O2SAT 92
--- NOTE | 2025-08-06 09:58 | DCINST_ITS ---
Discharge Instructions DC O2, CPAP, BIPAP needs Home O2 Discharge instructions: No Dressing / Incision Discharge Activity: Return to Normal Activity Dressing / Incision Call your doctor if you observe: Fever of 101 or Higher, Shortness of breath, Dizziness, Fainting spells, Swelling in the ankles, Chest pain and Increased palpitations (irregular heartbeat) Follow Up Care Test Results: Test results from this visit will be discussed in further detail at your follow- up appointment, if applicable. Discharge Plan Admission Admit Date/Time: 08/04/25 23:54 Attending Provider: Prem Henning Primary Care Provider: Michelle Erickson CUSTOMER SALES SPECIALIST Consulting Providers: Randa Mckeon Discharge Orders/Prescriptions Prescriptions: New prednisone 10 mg tablet 10 mg PO DAILY Qty: 32 0RF Rx Instructions: Take 4 tablets daily for 3 days then 3 tablets daily for 3 days then 2 tablets daily for 3 days then 1 tablet daily for 3 days then half tablet daily for 4 days Continued Trelegy Ellipta 100-62.5-25 mcg blister with device 1 inh inhalation DAILY amlodipine 5 mg tablet 5 mg PO DAILY Patient Comments: Take 1 tablet by mouth once daily. vitamin E 268 mg (400 unit) capsule 268 mg PO DAILY garlic 1,000 mg capsule 1,000 mg PO DAILY Patient Comments: pt states he only takes once in a while alprazolam [Xanax] 0.25 mg tablet 0.375 mg PO QHS Patient Comments: takes 1.5 tabs albuterol sulfate 90 mcg/actuation HFA aerosol inhaler 1 inh inhalation Q6H PRN (Reason: shortness of breath or wheezing) albuterol sulfate 2.5 mg /3 mL (0.083 %) solution for nebulization 2.5 mg inhalation Q4H PRN Qty: 25 0RF Rx Instructions: Use q4 hours and PRN for wheezing prednisone 5 mg tablet 5 mg PO DAILY PRN Patient Comments: pt states he takes 1/2 to 1 tab before be if he feels sob. zolpidem [Ambien] 10 mg tablet 10 mg PO QHS OXYGEN - Supplemental ([facility] INFORMATIONAL USE ONLY) Rx Instructions: DME: [employer] pt states wears 1-2 lpm at rest Referrals / Follow Up: Michelle Erickson CUSTOMER SALES SPECIALIST, CUSTOMER SALES SPECIALIST-C [Primary Care Provider, Medical] Iliana Thrasher CUSTOMER SALES SPECIALIST, CUSTOMER SALES SPECIALIST-C [Non-Staff -Ordering Privileges, Cardiology] - 08/16/25 10:45 am Disposition Disposition (needs filled in before D/C Order can be placed): Home, Self Care
--- NOTE | 2025-08-06 12:05 | NURSING ---
Juan Liaison came out and informed this nurse pt took a half a xanax from home. Dr. Henning Notified.
--- NOTE | 2025-08-06 13:12 | DS.PCM_ITS ---
Providers Date of Admission: 08/04/25 Primary Care Physician: Michelle Erickson, VIVEK Consultations 08/05/25 00:29 Consult: Reel Cutter / Pulmonary Medicine Routine Consulting Provider: Intensivists/Pulmonary Med Reason for Consult: COPD Exacerbation, Acute on Chronic Resp failure EMERGENT Consult: No MD Notified: Yes Date Notified: 08/05/25 Time Notified: 07:00 Method of Notification: Verbal Reason For Visit: ACUTE HYPOXIC/HYPERCARBIC RESP FAILURE, COPD EXAC Diagnosis Discharge Diagnosis (1) COPD exacerbation: Status: Chronic Code(s): J44.1 - Chronic obstructive pulmonary disease with (acute) exacerbation Medications at Discharge Home Medications amlodipine 5 mg tablet 5 mg PO DAILY blood pressure 03/06/21 albuterol sulfate 2.5 mg/3 mL (0.083 %) solution for nebulization 2.5 mg (3 mL) inhalation Q4H PRN #25 vials 12/11/23 garlic 1,000 mg capsule 1,000 mg PO DAILY general health 12/17/23 vitamin E 268 mg (400 unit) capsule 268 mg PO DAILY blood clot prevention 12/17/23 alprazolam 0.25 mg tablet (Xanax) 0.375 mg PO QHS anxiety 02/28/24 fluticasone fur. 100 mcg-umeclid 62.5 mcg-vilant 25 mcg inhalat.powder (Trelegy Ellipta) 1 inh inhalation DAILY 02/28/24 albuterol sulfate 90 mcg/actuation aerosol inhaler 1 inh inhalation Q6H PRN shortness of breath or wheezing 12/01/24 prednisone 5 mg tablet 5 mg PO DAILY PRN sob 06/01/25 zolpidem 10 mg tablet (Ambien) 10 mg PO QHS 08/04/25 OXYGEN - Supplemental ([facility] INFORMATIONAL USE ONLY) Pulmonary Information 08/05/25 prednisone 10 mg tablet 10 mg PO DAILY #32 tabs 08/06/25 Hospital Course Operations None Procedures None Summary of Care Provided Minutes Spent on Discharge: 32 Hospital Course: Per HPI: The patient is a 74 y/o M w/ PMHx: 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, Chronic normocytic anemia, Anxiety, Valvular Heart Disease with mild aortic stenosis, Nonobstructive CAD noncompliant with medications, BPH with obstructive pathology, HTN, Known Pulmonary nodules, COPD with emphysematous changes with Chronic Hypoxic Respiratory Failure (1-2LNC), Former tobacco use who presents to the [facility] ED on 08/04/2025 with history of progressively worsening dyspnea on his home oxygen with increased hypoxia noted to be 88% prompting EMS call who administered Solu-Medrol 125 mg IV as well as DuoNeb therapy on route prompting transition to ED for further evaluation. and patient note chronic unchanged cough with no marked sputum production but he has had more wheezing over the last 24 hours. denies any recent ill contacts. Workup in the ED included T97.5, heart rate 108, BP 161/103, respiratory rate 25, 100% on a nonrebreather eventually transition to BiPAP noted to be 99% on FiO2 30% BiPAP, ABG with pH 7.27, bicarb 30.1, O2 saturation 96% on BiPAP, pCO2 65, pO2 94, chest x-ray with no acute cardiopulmonary findings with chronic interstitial emphysematous lung changes and scattered pulmonary nodules with the largest in the left upper lung measuring 2.1 cm grossly stable, rapid SARS COVID/influenza/RSV PCR negative, CBC with WBC 24.9, hemoglobin 12.8, MCV 87.6, platelet 366 with notable left shift and lymphopenia, BMP with chloride 95, BUN/creatinine 29/0.91, GFR 88, glucose 199, troponin 21, NT proBNPII 261. In the ED patient ministered DuoNeb therapy. Hospital Course: 1. Acute on chronic hypoxic and hypercapnic respiratory failure secondary to COPD exacerbation ? Currently off of oxygen maintaining oxygen saturations at 94% on room air ? Continue with steroids ? Will transfer out of the ICU ? Leukocytosis has improved ? Continue with inhalers ? Chest x-ray does confirm previously known pulmonary nodules follow-up as an outpatient 08/06/2025: I discussed with him the plan for discharge today and he expressed understanding of the risk and benefits of going home and would like to go home today. Will continue with his home inhalers as well as a prednisone taper and then he can resume his home prednisone afterwards. He is only requiring 2 L at night which is his baseline and did not require any oxygen with ambulation today. 2. Essential HTN ? Continue with his Norvasc ? Will monitor make adjustments as necessary 3. Anxiety ? Stable ? Continue with his home medications Physical Exam Narrative General: Alert, Oriented x3, Cooperative, No apparent distress HEENT: Atraumatic, PERRLA, EOMI, Normocephalic Oral: Moist Mucosa Neck: Supple, No JVD Lungs: Diminished, poor air movement, No rhonchi, No wheeze, No rales Cardiovascular: Regular rate, Regular Rhythm, Normal S1, Normal S2, No murmurs Abdomen: Soft, Non Tender, Non-Distended, No Hepato-splenomegaly Extremities: No edema, Capillary Refill Less than 3 Seconds Skin: No rashes, No breakdown Musculoskeletal: No Tenderness to Palpation of Joints or Extremities Neurological: No focal neurological deficits, moves all extremities Psych/Mental Status: Normal Affect, Appropriate Weight / BMI Weight Weight: 114 lb 13.773 oz Body Mass Index (BMI) 18.4 ABG / Lab / Microbiology Data 08/06/25 06:44 08/06/25 06:44 Laboratory: Laboratory Results - last 24 hr 08/06/25 06:44: WBC 12.2 H, RBC 4.41 L, Hgb 12.5 L, Hct 39.3 L, MCV 89.1, MCH 28.3, MCHC 31.8 L, RDW Std Deviation 45.1 H, RDW Coeff of Sherri 13.9, Plt Count 326, MPV 9.6, Immature Gran % (Auto) 0.600, Neut % (Auto) 92.6 H, Lymph % (Auto) 3.4 L, Jessamine % (Auto) 3.3, Eos % (Auto) 0.0, Baso % (Auto) 0.1, Absolute Neuts (auto) 11.3 H, Absolute Lymphs (auto) 0.41 L, Nucleated RBC % 0, Sodium 136, Potassium 5.1, Chloride 99, Carbon Dioxide 31.4, Anion Gap 6, BUN 26 H, Creatinine 0.74, Estim Creat Clear Calc 59.70, Est GFR (MDRD) Non-Af 95, B UN/Creatinine Ratio 35.3 H, Glucose 167 H, Calcium 9.8 Microbiology: Microbiology 08/05/25 07:50 Sputum, Expectorated/Coughed Gram Stain - Final 08/05/25 07:50 Sputum, Expectorated/Coughed Respiratory Culture - Preliminary GNR Poss Pseudomonas sp 08/05/25 03:50 Urine, Clean Catch Urine Culture - Preliminary Mixed Gram Positive Organisms 08/05/25 00:45 Mucosa - Nasopharyngeal Respiratory Panel (PCR) - Final 08/04/25 22:00 Mucosa - Nose SARS-CoV-2, Influenza & RSV (PCR) - Final D/C Instructions Call your doctor if you observe: Fever of 101 or Higher, Shortness of breath, Dizziness, Fainting spells, Swelling in the ankles, Chest pain and Increased palpitations (irregular heartbeat) DC O2, CPAP, BIPAP Needs Home O2 Discharge instructions: No Meaningful Use Info Meaningful Use Meaningful Use Diagnoses (Choose all that apply): None applicable Discharge Plan Admission Admit Date/Time: 08/04/25 23:54 Attending Provider: Prem Henning Primary Care Provider: Michelle Erickson WIRE FENCE ERECTOR Consulting Providers: Randa Mckeon Discharge Orders/Prescriptions Prescriptions: New prednisone 10 mg tablet 10 mg PO DAILY Qty: 32 0RF Rx Instructions: Take 4 tablets daily for 3 days then 3 tablets daily for 3 days then 2 tablets daily for 3 days then 1 tablet daily for 3 days then half tablet daily for 4 days Continued Trelegy Ellipta 100-62.5-25 mcg blister with device 1 inh inhalation DAILY amlodipine 5 mg tablet 5 mg PO DAILY Patient Comments: Take 1 tablet by mouth once daily. vitamin E 268 mg (400 unit) capsule 268 mg PO DAILY garlic 1,000 mg capsule 1,000 mg PO DAILY Patient Comments: pt states he only takes once in a while alprazolam [Xanax] 0.25 mg tablet 0.375 mg PO QHS Patient Comments: takes 1.5 tabs albuterol sulfate 90 mcg/actuation HFA aerosol inhaler 1 inh inhalation Q6H PRN (Reason: shortness of breath or wheezing) albuterol sulfate 2.5 mg /3 mL (0.083 %) solution for nebulization 2.5 mg inhalation Q4H PRN Qty: 25 0RF Rx Instructions: Use q4 hours and PRN for wheezing prednisone 5 mg tablet 5 mg PO DAILY PRN Patient Comments: pt states he takes 1/2 to 1 tab before be if he feels sob. zolpidem [Ambien] 10 mg tablet 10 mg PO QHS OXYGEN - Supplemental ([facility] INFORMATIONAL USE ONLY) Rx Instructions: DME: [employer] pt states wears 1-2 lpm at rest Referrals / Follow Up: Michelle Erickson WIRE FENCE ERECTOR, [employer]-C [Primary Care Provider, Medical] Iliana Thrasher W[employer]ENCE E[employer]OR, [employer]-C [Non-Staff -Ordering Privileges, Cardiology] - 08/16/25 10:45 am Disposition Disposition (needs filled in before D/C Order can be placed): Home, Self Care Charges/Coding Visit Charges Inpatient E&M: 56378 Disch Hosp >30min
--- NOTE | 2025-08-09 13:38 | PCM.PN.BLA ---
Assessment & Plan Assessment/Plan (1) COPD exacerbation: PLAN: Plan Was notified by infection control nurse Anh Cummings regarding patient positive Pseudomonas sputum culture. Patient had not been discharged on any antibiotics. Did review the cultures myself wrote a prescription for Levaquin 500 mg p.o. daily for 10 days and sent directly to patient's pharmacy. Patient notified
== END 2025-08-06 13:04 | disposition home or self-care (01) | DRG 189 ==
LOC: ED 22:10 → ICU 08-05
PROVIDERS: Admitting Provider Family Medicine; Emergency Provider Emergency Medicine; PCP Nurse Practitioner Family; Visit Provider Family Medicine
DX: J96.21 Acute and chronic respiratory failure with hypoxia (principal); E87.29 Other acidosis; J44.1 Chronic obstructive pulmonary disease with (acute) exacerbation; N13.8 Other obstructive and reflux uropathy; B96.5 Pseudomonas (aeruginosa) (mallei) (pseudomallei) as the cause of diseases classified elsewhere; Z66 Do not resuscitate; Z99.81 Dependence on supplemental oxygen; I12.9 Hypertensive chronic kidney disease with stage 1 through stage 4 chronic kidney disease, or unspecified chronic kidney disease; N18.9 Chronic kidney disease, unspecified; D64.9 Anemia, unspecified; I25.10 Atherosclerotic heart disease of native coronary artery without angina pectoris; F41.9 Anxiety disorder, unspecified; J96.22 Acute and chronic respiratory failure with hypercapnia; Z79.51 Long term (current) use of inhaled steroids; Z87.891 Personal history of nicotine dependence; N40.1 Benign prostatic hyperplasia with lower urinary tract symptoms; Z79.899 Other long term (current) drug therapy; Z96.611 Presence of right artificial shoulder joint; Z96.612 Presence of left artificial shoulder joint; R73.9 Hyperglycemia, unspecified
CPT/HCPCS: 36415; 36600; 71045; 80048; 80053; 82803; 83605; 83880; 84145; 84484; 85025; 87040; 87070; 87077; 87086; 87088; 87184; 87186; 87205; 87631; 87633; 93005; 94002; 94003; 94640; 94668; 94762; 97161; 97165; 97802; 99285; A4216